=== PATIENT | male | born 1940 | race American Indian/Alaskan Native ===

== ENCOUNTER 2016-11-15 09:41 | Outpatient (CLI) | payer MEDICARE, OTHER | END 2016-11-15 09:42 | disposition home or self-care (01) | LOC: WOUND 09:41 | PROVIDERS: ATTEND Orthopaedic Surgery | DX: E11.621 Type 2 diabetes mellitus with foot ulcer (principal); L97.522 Non-pressure chronic ulcer of other part of left foot with fat layer exposed; E11.52 Type 2 diabetes mellitus with diabetic peripheral angiopathy with gangrene; E11.40 Type 2 diabetes mellitus with diabetic neuropathy, unspecified; E11.21 Type 2 diabetes mellitus with diabetic nephropathy; Z87.442 Personal history of urinary calculi; Z87.891 Personal history of nicotine dependence | CPT/HCPCS: 82962; G0277; 99183 ==

== ENCOUNTER 2016-11-16 09:35 | Outpatient (CLI) | payer MEDICARE, OTHER | END 2016-11-16 09:36 | disposition home or self-care (01) | LOC: WOUND 09:35 | PROVIDERS: ATTEND Orthopaedic Surgery | DX: E11.621 Type 2 diabetes mellitus with foot ulcer (principal); L97.521 Non-pressure chronic ulcer of other part of left foot limited to breakdown of skin; E11.40 Type 2 diabetes mellitus with diabetic neuropathy, unspecified; E11.52 Type 2 diabetes mellitus with diabetic peripheral angiopathy with gangrene; Z87.891 Personal history of nicotine dependence | CPT/HCPCS: 82962; G0277; 99183 ==

== ENCOUNTER 2016-11-20 09:03 | Outpatient (CLI) | payer MEDICARE, OTHER | END 2016-11-20 09:04 | disposition home or self-care (01) | LOC: WOUND 09:03 | PROVIDERS: ATTEND Orthopaedic Surgery | DX: E11.621 Type 2 diabetes mellitus with foot ulcer (principal); L97.522 Non-pressure chronic ulcer of other part of left foot with fat layer exposed; E11.52 Type 2 diabetes mellitus with diabetic peripheral angiopathy with gangrene; E11.40 Type 2 diabetes mellitus with diabetic neuropathy, unspecified; Z87.891 Personal history of nicotine dependence | CPT/HCPCS: G0277 ×2; 82962; 99183 ==

== ENCOUNTER 2016-11-22 09:32 | Outpatient (CLI) | payer MEDICARE, OTHER | END 2016-11-22 09:33 | disposition home or self-care (01) | LOC: WOUND 09:32 | PROVIDERS: ATTEND Orthopaedic Surgery | DX: E11.621 Type 2 diabetes mellitus with foot ulcer (principal); L97.522 Non-pressure chronic ulcer of other part of left foot with fat layer exposed; E11.52 Type 2 diabetes mellitus with diabetic peripheral angiopathy with gangrene; E11.40 Type 2 diabetes mellitus with diabetic neuropathy, unspecified; Z87.891 Personal history of nicotine dependence | CPT/HCPCS: 82962; G0277; 99183 ==

== ENCOUNTER 2016-11-23 09:43 | Outpatient (CLI) | payer MEDICARE, OTHER | END 2016-11-23 09:44 | disposition home or self-care (01) | LOC: WOUND 09:43 | PROVIDERS: ATTEND Orthopaedic Surgery | DX: E11.621 Type 2 diabetes mellitus with foot ulcer (principal); L97.522 Non-pressure chronic ulcer of other part of left foot with fat layer exposed; E11.52 Type 2 diabetes mellitus with diabetic peripheral angiopathy with gangrene; E11.40 Type 2 diabetes mellitus with diabetic neuropathy, unspecified; Z87.891 Personal history of nicotine dependence | CPT/HCPCS: 82962; G0277; 99183 ==

== ENCOUNTER 2016-11-27 09:07 | Outpatient (CLI) | payer MEDICARE, OTHER | END 2016-11-27 09:08 | disposition home or self-care (01) | LOC: WOUND 09:07 | PROVIDERS: ATTEND Orthopaedic Surgery | DX: E11.621 Type 2 diabetes mellitus with foot ulcer (principal); L97.522 Non-pressure chronic ulcer of other part of left foot with fat layer exposed; E11.52 Type 2 diabetes mellitus with diabetic peripheral angiopathy with gangrene; E11.40 Type 2 diabetes mellitus with diabetic neuropathy, unspecified; Z87.442 Personal history of urinary calculi; E11.21 Type 2 diabetes mellitus with diabetic nephropathy; Z87.891 Personal history of nicotine dependence | CPT/HCPCS: 82962; G0277; 99183 ==

== ENCOUNTER 2016-11-28 08:28 | Outpatient (CLI) | payer MEDICARE, OTHER ==
[2016-11-28] MEDS ORDERED: XYLOCAINE TOPICAL 2% TP ONE (09:03)
== END 2016-11-28 08:29 | disposition home or self-care (01) ==
LOC: WOUND 08:28
PROVIDERS: ATTEND Podiatrist
DX: E11.621 Type 2 diabetes mellitus with foot ulcer (principal); L97.522 Non-pressure chronic ulcer of other part of left foot with fat layer exposed; E11.52 Type 2 diabetes mellitus with diabetic peripheral angiopathy with gangrene; E11.40 Type 2 diabetes mellitus with diabetic neuropathy, unspecified; Z87.891 Personal history of nicotine dependence
CPT/HCPCS: 11042; G0277; 82962; 99183

== ENCOUNTER 2016-11-29 09:42 | Outpatient (CLI) | payer MEDICARE, OTHER ==
[~2016-11-29 09:42] MED LIST: XYLOCAINE TOPICAL 2% ONE
== END 2016-11-29 09:43 | disposition home or self-care (01) ==
LOC: WOUND 09:42
PROVIDERS: ATTEND Orthopaedic Surgery
DX: E11.621 Type 2 diabetes mellitus with foot ulcer (principal); L97.522 Non-pressure chronic ulcer of other part of left foot with fat layer exposed; E11.52 Type 2 diabetes mellitus with diabetic peripheral angiopathy with gangrene; E11.40 Type 2 diabetes mellitus with diabetic neuropathy, unspecified; E11.21 Type 2 diabetes mellitus with diabetic nephropathy; N20.0 Calculus of kidney; Z87.891 Personal history of nicotine dependence
CPT/HCPCS: 82962; G0277; 99183

== ENCOUNTER 2016-11-30 09:50 | Outpatient (CLI) | payer MEDICARE, OTHER | END 2016-11-30 09:51 | disposition home or self-care (01) | LOC: WOUND 09:50 | PROVIDERS: ATTEND Orthopaedic Surgery | DX: E11.621 Type 2 diabetes mellitus with foot ulcer (principal); L97.522 Non-pressure chronic ulcer of other part of left foot with fat layer exposed; E11.52 Type 2 diabetes mellitus with diabetic peripheral angiopathy with gangrene; E11.40 Type 2 diabetes mellitus with diabetic neuropathy, unspecified; Z87.891 Personal history of nicotine dependence | CPT/HCPCS: 82962; G0277; 99183 ==

== ENCOUNTER 2016-12-01 09:42 | Outpatient (CLI) | payer MEDICARE, OTHER | END 2016-12-01 09:43 | disposition home or self-care (01) | LOC: WOUND 09:42 | PROVIDERS: ATTEND Podiatrist | DX: E11.621 Type 2 diabetes mellitus with foot ulcer (principal); L97.522 Non-pressure chronic ulcer of other part of left foot with fat layer exposed; E11.52 Type 2 diabetes mellitus with diabetic peripheral angiopathy with gangrene; E11.40 Type 2 diabetes mellitus with diabetic neuropathy, unspecified; Z87.891 Personal history of nicotine dependence | CPT/HCPCS: 82962; G0277; 99183 ==

== ENCOUNTER 2016-12-04 09:32 | Outpatient (CLI) | payer MEDICARE, OTHER | END 2016-12-04 09:33 | disposition home or self-care (01) | LOC: WOUND 09:32 | PROVIDERS: ATTEND Orthopaedic Surgery | DX: E11.621 Type 2 diabetes mellitus with foot ulcer (principal); L97.522 Non-pressure chronic ulcer of other part of left foot with fat layer exposed; E11.52 Type 2 diabetes mellitus with diabetic peripheral angiopathy with gangrene; E11.40 Type 2 diabetes mellitus with diabetic neuropathy, unspecified; Z87.891 Personal history of nicotine dependence | CPT/HCPCS: 82962; G0277; 99183 ==

== ENCOUNTER 2016-12-05 08:26 | Outpatient (CLI) | payer MEDICARE, OTHER ==
[2016-12-05] MEDS ORDERED: XYLOCAINE TOPICAL 2% TP ONE ×2 (08:32→08:47)
== END 2016-12-05 08:27 | disposition home or self-care (01) ==
LOC: WOUND 08:26
PROVIDERS: ATTEND Podiatrist
DX: E11.621 Type 2 diabetes mellitus with foot ulcer (principal); L97.523 Non-pressure chronic ulcer of other part of left foot with necrosis of muscle; E11.52 Type 2 diabetes mellitus with diabetic peripheral angiopathy with gangrene; E11.40 Type 2 diabetes mellitus with diabetic neuropathy, unspecified; E11.21 Type 2 diabetes mellitus with diabetic nephropathy; Z87.891 Personal history of nicotine dependence; N20.0 Calculus of kidney
CPT/HCPCS: 11043; 82962; G0277; 99183

== ENCOUNTER 2016-12-06 09:41 | Outpatient (CLI) | payer MEDICARE, OTHER | END 2016-12-06 09:42 | disposition home or self-care (01) | LOC: WOUND 09:41 | PROVIDERS: ATTEND Orthopaedic Surgery | DX: E11.621 Type 2 diabetes mellitus with foot ulcer (principal); L97.523 Non-pressure chronic ulcer of other part of left foot with necrosis of muscle; E11.52 Type 2 diabetes mellitus with diabetic peripheral angiopathy with gangrene; E11.40 Type 2 diabetes mellitus with diabetic neuropathy, unspecified; E11.21 Type 2 diabetes mellitus with diabetic nephropathy; Z87.442 Personal history of urinary calculi; Z87.891 Personal history of nicotine dependence | CPT/HCPCS: 82962; G0277; 99183 ==

== ENCOUNTER 2016-12-07 09:34 | Outpatient (CLI) | payer MEDICARE, OTHER | END 2016-12-07 09:35 | disposition home or self-care (01) | LOC: WOUND 09:34 | PROVIDERS: ATTEND Orthopaedic Surgery | DX: E11.621 Type 2 diabetes mellitus with foot ulcer (principal); L97.523 Non-pressure chronic ulcer of other part of left foot with necrosis of muscle; E11.52 Type 2 diabetes mellitus with diabetic peripheral angiopathy with gangrene; E11.40 Type 2 diabetes mellitus with diabetic neuropathy, unspecified; Z87.891 Personal history of nicotine dependence | CPT/HCPCS: 82962; G0277; 99183 ==

== ENCOUNTER 2016-12-08 09:29 | Outpatient (CLI) | payer MEDICARE, OTHER | END 2016-12-08 09:30 | disposition home or self-care (01) | LOC: WOUND 09:29 | PROVIDERS: ATTEND Podiatrist | DX: E11.621 Type 2 diabetes mellitus with foot ulcer (principal); L97.521 Non-pressure chronic ulcer of other part of left foot limited to breakdown of skin; E11.52 Type 2 diabetes mellitus with diabetic peripheral angiopathy with gangrene; E11.40 Type 2 diabetes mellitus with diabetic neuropathy, unspecified; E08.8 Diabetes mellitus due to underlying condition with unspecified complications; Z87.891 Personal history of nicotine dependence | CPT/HCPCS: 82962; G0277; 99183 ==

== ENCOUNTER 2016-12-11 10:40 | Outpatient (CLI) | payer MEDICARE, OTHER | END 2016-12-11 10:41 | disposition home or self-care (01) | LOC: WOUND 10:40 | PROVIDERS: ATTEND Internal Medicine | DX: E11.621 Type 2 diabetes mellitus with foot ulcer (principal); L97.523 Non-pressure chronic ulcer of other part of left foot with necrosis of muscle; E11.52 Type 2 diabetes mellitus with diabetic peripheral angiopathy with gangrene; E11.40 Type 2 diabetes mellitus with diabetic neuropathy, unspecified; E11.21 Type 2 diabetes mellitus with diabetic nephropathy; N20.0 Calculus of kidney; Z87.891 Personal history of nicotine dependence | CPT/HCPCS: G0277 ×2; 82962; 99183 ==

== ENCOUNTER 2016-12-12 08:22 | Outpatient (CLI) | payer MEDICARE, OTHER ==
[2016-12-12] MEDS ORDERED: XYLOCAINE TOPICAL 2% TP ONE ×2 (08:24→15:04)
== END 2016-12-12 08:23 | disposition home or self-care (01) ==
LOC: WOUND 08:22
PROVIDERS: ATTEND Podiatrist
DX: E11.621 Type 2 diabetes mellitus with foot ulcer (principal); L97.523 Non-pressure chronic ulcer of other part of left foot with necrosis of muscle; E11.40 Type 2 diabetes mellitus with diabetic neuropathy, unspecified; E11.21 Type 2 diabetes mellitus with diabetic nephropathy; N20.0 Calculus of kidney; Z87.891 Personal history of nicotine dependence
CPT/HCPCS: 11043; 82962; G0277; 99183

== ENCOUNTER 2016-12-13 13:33 | Outpatient (CLI) | payer MEDICARE, OTHER | END 2016-12-13 13:34 | disposition home or self-care (01) | LOC: WOUND 13:33 | PROVIDERS: ATTEND Internal Medicine | DX: E11.621 Type 2 diabetes mellitus with foot ulcer (principal); L97.523 Non-pressure chronic ulcer of other part of left foot with necrosis of muscle; E11.40 Type 2 diabetes mellitus with diabetic neuropathy, unspecified; E11.52 Type 2 diabetes mellitus with diabetic peripheral angiopathy with gangrene; E11.21 Type 2 diabetes mellitus with diabetic nephropathy; N20.0 Calculus of kidney; Z87.891 Personal history of nicotine dependence | CPT/HCPCS: 82962; G0277; 99183 ==

== ENCOUNTER 2016-12-14 09:47 | Outpatient (CLI) | payer MEDICARE, OTHER | END 2016-12-14 09:48 | disposition home or self-care (01) | LOC: WOUND 09:47 | PROVIDERS: ATTEND Internal Medicine | DX: E11.621 Type 2 diabetes mellitus with foot ulcer (principal); L97.521 Non-pressure chronic ulcer of other part of left foot limited to breakdown of skin; E11.52 Type 2 diabetes mellitus with diabetic peripheral angiopathy with gangrene; E11.40 Type 2 diabetes mellitus with diabetic neuropathy, unspecified; E08.8 Diabetes mellitus due to underlying condition with unspecified complications; Z87.891 Personal history of nicotine dependence | CPT/HCPCS: 82962; G0277; 99183 ==

== ENCOUNTER 2016-12-15 09:37 | Outpatient (CLI) | payer MEDICARE, OTHER | END 2016-12-15 09:38 | disposition home or self-care (01) | LOC: WOUND 09:37 | PROVIDERS: ATTEND Podiatrist | DX: E11.621 Type 2 diabetes mellitus with foot ulcer (principal); L97.523 Non-pressure chronic ulcer of other part of left foot with necrosis of muscle; E11.52 Type 2 diabetes mellitus with diabetic peripheral angiopathy with gangrene; E11.40 Type 2 diabetes mellitus with diabetic neuropathy, unspecified; Z87.891 Personal history of nicotine dependence | CPT/HCPCS: G0277 ×2; 82962; 99183 ==

== ENCOUNTER 2016-12-18 09:41 | Outpatient (CLI) | payer MEDICARE, OTHER | END 2016-12-18 09:42 | disposition home or self-care (01) | LOC: WOUND 09:41 | PROVIDERS: ATTEND Internal Medicine | DX: E11.621 Type 2 diabetes mellitus with foot ulcer (principal); L97.523 Non-pressure chronic ulcer of other part of left foot with necrosis of muscle; E11.52 Type 2 diabetes mellitus with diabetic peripheral angiopathy with gangrene; E11.40 Type 2 diabetes mellitus with diabetic neuropathy, unspecified; N20.0 Calculus of kidney; Z87.891 Personal history of nicotine dependence | CPT/HCPCS: 82962; G0277; 99183 ==

== ENCOUNTER 2016-12-19 08:27 | Outpatient (CLI) | payer MEDICARE, OTHER ==
[2016-12-19] MEDS ORDERED: XYLOCAINE TOPICAL 2% ONE (08:30)
[2016-12-19] MEDS ORDERED: XYLOCAINE TOPICAL 2% TP ONE (08:44)
== END 2016-12-19 08:28 | disposition home or self-care (01) ==
LOC: WOUND 08:27
PROVIDERS: ATTEND Podiatrist
DX: E11.621 Type 2 diabetes mellitus with foot ulcer (principal); L97.524 Non-pressure chronic ulcer of other part of left foot with necrosis of bone; E11.40 Type 2 diabetes mellitus with diabetic neuropathy, unspecified; E11.52 Type 2 diabetes mellitus with diabetic peripheral angiopathy with gangrene; M20.42 Other hammer toe(s) (acquired), left foot; E11.21 Type 2 diabetes mellitus with diabetic nephropathy; N20.0 Calculus of kidney; Z87.891 Personal history of nicotine dependence
CPT/HCPCS: 11043; 87075; 87116; G0277; 82962; 88307; 99183

== ENCOUNTER 2016-12-20 09:37 | Outpatient (CLI) | payer MEDICARE, OTHER | END 2016-12-20 09:38 | disposition home or self-care (01) | LOC: WOUND 09:37 | PROVIDERS: ATTEND Internal Medicine | DX: E11.621 Type 2 diabetes mellitus with foot ulcer (principal); L97.523 Non-pressure chronic ulcer of other part of left foot with necrosis of muscle; E11.52 Type 2 diabetes mellitus with diabetic peripheral angiopathy with gangrene; E11.40 Type 2 diabetes mellitus with diabetic neuropathy, unspecified; Z87.891 Personal history of nicotine dependence; Z96.659 Presence of unspecified artificial knee joint | CPT/HCPCS: 82962; G0277; 99183 ==

== ENCOUNTER 2016-12-21 09:54 | Outpatient (CLI) | payer MEDICARE, OTHER | END 2016-12-21 09:55 | disposition home or self-care (01) | LOC: WOUND 09:54 | PROVIDERS: ATTEND Internal Medicine | DX: E11.621 Type 2 diabetes mellitus with foot ulcer (principal); L97.523 Non-pressure chronic ulcer of other part of left foot with necrosis of muscle; E11.52 Type 2 diabetes mellitus with diabetic peripheral angiopathy with gangrene; E11.40 Type 2 diabetes mellitus with diabetic neuropathy, unspecified; Z87.891 Personal history of nicotine dependence; Z96.659 Presence of unspecified artificial knee joint | CPT/HCPCS: 82962; G0277; 99183 ==

== ENCOUNTER 2016-12-22 09:53 | Outpatient (CLI) | payer MEDICARE, OTHER | END 2016-12-22 09:54 | disposition home or self-care (01) | LOC: WOUND 09:53 | PROVIDERS: ATTEND Podiatrist | DX: E11.621 Type 2 diabetes mellitus with foot ulcer (principal); L97.521 Non-pressure chronic ulcer of other part of left foot limited to breakdown of skin; E11.52 Type 2 diabetes mellitus with diabetic peripheral angiopathy with gangrene; E11.40 Type 2 diabetes mellitus with diabetic neuropathy, unspecified; E08.8 Diabetes mellitus due to underlying condition with unspecified complications; Z87.891 Personal history of nicotine dependence | CPT/HCPCS: G0277 ×2; 82962; 99183 ==

== ENCOUNTER 2016-12-25 09:42 | Outpatient (CLI) | payer MEDICARE, OTHER | END 2016-12-25 09:43 | disposition home or self-care (01) | LOC: WOUND 09:42 | PROVIDERS: ATTEND Internal Medicine | DX: E11.621 Type 2 diabetes mellitus with foot ulcer (principal); L97.523 Non-pressure chronic ulcer of other part of left foot with necrosis of muscle; E11.52 Type 2 diabetes mellitus with diabetic peripheral angiopathy with gangrene; E11.40 Type 2 diabetes mellitus with diabetic neuropathy, unspecified; Z87.891 Personal history of nicotine dependence | CPT/HCPCS: 82962; G0277; 99183 ==

== ENCOUNTER 2016-12-26 08:25 | Outpatient (CLI) | payer MEDICARE, OTHER ==
[2016-12-26] MEDS ORDERED: XYLOCAINE TOPICAL 4% TP ONE ×2 (08:44→15:20)
== END 2016-12-26 08:26 | disposition home or self-care (01) ==
LOC: WOUND 08:25
PROVIDERS: ATTEND Podiatrist
DX: E11.621 Type 2 diabetes mellitus with foot ulcer (principal); L97.523 Non-pressure chronic ulcer of other part of left foot with necrosis of muscle; E11.52 Type 2 diabetes mellitus with diabetic peripheral angiopathy with gangrene; E11.40 Type 2 diabetes mellitus with diabetic neuropathy, unspecified; H91.90 Unspecified hearing loss, unspecified ear; Z86.718 Personal history of other venous thrombosis and embolism; Z96.659 Presence of unspecified artificial knee joint; Z98.62 Peripheral vascular angioplasty status; Z87.891 Personal history of nicotine dependence
CPT/HCPCS: 11042; 11043; 82962; G0277; 99183

== ENCOUNTER 2016-12-27 09:45 | Outpatient (CLI) | payer MEDICARE, OTHER | END 2016-12-27 09:46 | disposition home or self-care (01) | LOC: WOUND 09:45 | PROVIDERS: ATTEND Internal Medicine | DX: E11.621 Type 2 diabetes mellitus with foot ulcer (principal); L97.523 Non-pressure chronic ulcer of other part of left foot with necrosis of muscle; E11.52 Type 2 diabetes mellitus with diabetic peripheral angiopathy with gangrene; E11.40 Type 2 diabetes mellitus with diabetic neuropathy, unspecified; Z87.891 Personal history of nicotine dependence | CPT/HCPCS: G0277 ×2; 82962; 99183 ==

== ENCOUNTER 2016-12-28 10:28 | Outpatient (CLI) | payer MEDICARE, OTHER | END 2016-12-28 10:29 | disposition home or self-care (01) | LOC: WOUND 10:28 | PROVIDERS: ATTEND Nurse Practitioner | DX: E11.621 Type 2 diabetes mellitus with foot ulcer (principal); L97.523 Non-pressure chronic ulcer of other part of left foot with necrosis of muscle; E11.52 Type 2 diabetes mellitus with diabetic peripheral angiopathy with gangrene; E11.40 Type 2 diabetes mellitus with diabetic neuropathy, unspecified; N20.0 Calculus of kidney; E11.21 Type 2 diabetes mellitus with diabetic nephropathy; Z87.891 Personal history of nicotine dependence; Z96.659 Presence of unspecified artificial knee joint | CPT/HCPCS: 82962; G0277; 99183 ==

== ENCOUNTER 2017-01-01 09:43 | Outpatient (CLI) | payer MEDICARE, OTHER | END 2017-01-01 09:44 | disposition home or self-care (01) | LOC: WOUND 09:43 | PROVIDERS: ATTEND Internal Medicine | DX: E11.621 Type 2 diabetes mellitus with foot ulcer (principal); L97.523 Non-pressure chronic ulcer of other part of left foot with necrosis of muscle; E11.52 Type 2 diabetes mellitus with diabetic peripheral angiopathy with gangrene; E11.40 Type 2 diabetes mellitus with diabetic neuropathy, unspecified; Z87.891 Personal history of nicotine dependence; Z96.659 Presence of unspecified artificial knee joint | CPT/HCPCS: G0277 ×2; 82962; 99183 ==

== ENCOUNTER 2017-01-02 08:17 | Outpatient (CLI) | payer MEDICARE, OTHER ==
[2017-01-02] MEDS ORDERED: XYLOCAINE TOPICAL 4% TP ONE ×2 (08:33→09:06)
== END 2017-01-02 08:18 | disposition home or self-care (01) ==
LOC: WOUND 08:17
PROVIDERS: ATTEND Podiatrist
DX: E11.621 Type 2 diabetes mellitus with foot ulcer (principal); L97.523 Non-pressure chronic ulcer of other part of left foot with necrosis of muscle; E11.52 Type 2 diabetes mellitus with diabetic peripheral angiopathy with gangrene; E11.40 Type 2 diabetes mellitus with diabetic neuropathy, unspecified; E11.69 Type 2 diabetes mellitus with other specified complication; M86.8X7 Other osteomyelitis, ankle and foot; H91.90 Unspecified hearing loss, unspecified ear; Z86.718 Personal history of other venous thrombosis and embolism; Z96.659 Presence of unspecified artificial knee joint; Z87.891 Personal history of nicotine dependence
CPT/HCPCS: 11043; 82962; G0277; 99183

== ENCOUNTER 2017-01-03 09:39 | Outpatient (CLI) | payer MEDICARE, OTHER | END 2017-01-03 09:40 | disposition home or self-care (01) | LOC: WOUND 09:39 | PROVIDERS: ATTEND Internal Medicine | DX: E11.621 Type 2 diabetes mellitus with foot ulcer (principal); L97.523 Non-pressure chronic ulcer of other part of left foot with necrosis of muscle; E11.52 Type 2 diabetes mellitus with diabetic peripheral angiopathy with gangrene; E11.40 Type 2 diabetes mellitus with diabetic neuropathy, unspecified; E11.69 Type 2 diabetes mellitus with other specified complication; M86.8X7 Other osteomyelitis, ankle and foot; Z87.891 Personal history of nicotine dependence | CPT/HCPCS: 82962; G0277; 99183 ==

== ENCOUNTER 2017-01-04 09:00 | Outpatient (CLI) | payer MEDICARE, OTHER | END 2017-01-04 09:01 | disposition home or self-care (01) | LOC: WOUND 09:00 | PROVIDERS: ATTEND Nurse Practitioner | DX: E11.621 Type 2 diabetes mellitus with foot ulcer (principal); L97.523 Non-pressure chronic ulcer of other part of left foot with necrosis of muscle; E11.52 Type 2 diabetes mellitus with diabetic peripheral angiopathy with gangrene; E11.40 Type 2 diabetes mellitus with diabetic neuropathy, unspecified; E11.21 Type 2 diabetes mellitus with diabetic nephropathy; Z87.891 Personal history of nicotine dependence; Z87.442 Personal history of urinary calculi; Z96.659 Presence of unspecified artificial knee joint | CPT/HCPCS: 82962; G0277; 99183 ==

== ENCOUNTER 2017-01-05 10:00 | Outpatient (CLI) | payer MEDICARE, OTHER | END 2017-01-05 10:01 | disposition home or self-care (01) | LOC: WOUND 10:00 | PROVIDERS: ATTEND Podiatrist | DX: E11.621 Type 2 diabetes mellitus with foot ulcer (principal); L97.523 Non-pressure chronic ulcer of other part of left foot with necrosis of muscle; E11.69 Type 2 diabetes mellitus with other specified complication; M86.8X7 Other osteomyelitis, ankle and foot; E11.40 Type 2 diabetes mellitus with diabetic neuropathy, unspecified; E11.52 Type 2 diabetes mellitus with diabetic peripheral angiopathy with gangrene; E11.21 Type 2 diabetes mellitus with diabetic nephropathy; Z87.442 Personal history of urinary calculi; Z87.891 Personal history of nicotine dependence; Z96.659 Presence of unspecified artificial knee joint | CPT/HCPCS: 82962; G0277; 99183 ==

== ENCOUNTER 2017-01-08 09:38 | Outpatient (CLI) | payer MEDICARE, OTHER | END 2017-01-08 09:39 | disposition home or self-care (01) | LOC: WOUND 09:38 | PROVIDERS: ATTEND Internal Medicine | DX: E11.621 Type 2 diabetes mellitus with foot ulcer (principal); L97.523 Non-pressure chronic ulcer of other part of left foot with necrosis of muscle; E11.52 Type 2 diabetes mellitus with diabetic peripheral angiopathy with gangrene; E11.40 Type 2 diabetes mellitus with diabetic neuropathy, unspecified; E11.69 Type 2 diabetes mellitus with other specified complication; M86.8X7 Other osteomyelitis, ankle and foot; E11.21 Type 2 diabetes mellitus with diabetic nephropathy; Z87.891 Personal history of nicotine dependence; Z96.659 Presence of unspecified artificial knee joint | CPT/HCPCS: 82962; G0277; 99183 ==

== ENCOUNTER 2017-01-09 08:30 | Outpatient (CLI) | payer MEDICARE, OTHER ==
[2017-01-09] MEDS ORDERED: XYLOCAINE TOPICAL 4% TP ONE ×2 (08:56→16:13)
== END 2017-01-09 08:31 | disposition home or self-care (01) ==
LOC: WOUND 08:30
PROVIDERS: ATTEND Podiatrist
DX: E11.621 Type 2 diabetes mellitus with foot ulcer (principal); L97.523 Non-pressure chronic ulcer of other part of left foot with necrosis of muscle; E11.52 Type 2 diabetes mellitus with diabetic peripheral angiopathy with gangrene; E11.40 Type 2 diabetes mellitus with diabetic neuropathy, unspecified; E11.69 Type 2 diabetes mellitus with other specified complication; M86.8X7 Other osteomyelitis, ankle and foot; E11.21 Type 2 diabetes mellitus with diabetic nephropathy; Z96.659 Presence of unspecified artificial knee joint; Z86.718 Personal history of other venous thrombosis and embolism; Z87.891 Personal history of nicotine dependence
CPT/HCPCS: 11043; 82962; G0277; 99183

== ENCOUNTER 2017-01-11 08:29 | Outpatient (CLI) | payer MEDICARE, OTHER | END 2017-01-11 08:30 | disposition home or self-care (01) | LOC: WOUND 08:29 | PROVIDERS: ATTEND Internal Medicine | DX: E11.621 Type 2 diabetes mellitus with foot ulcer (principal); L97.521 Non-pressure chronic ulcer of other part of left foot limited to breakdown of skin; E11.52 Type 2 diabetes mellitus with diabetic peripheral angiopathy with gangrene; E11.40 Type 2 diabetes mellitus with diabetic neuropathy, unspecified; Z87.891 Personal history of nicotine dependence | CPT/HCPCS: 82962; G0277; 99183 ==

== ENCOUNTER 2017-01-16 08:27 | Outpatient (CLI) | payer MEDICARE, OTHER ==
[2017-01-16] MEDS ORDERED: XYLOCAINE TOPICAL 4% TP ONE (09:19)
[2017-01-16] MEDS ORDERED: XYLOCAINE TOPICAL 2% TP ONE (14:51)
== END 2017-01-16 08:28 | disposition home or self-care (01) ==
LOC: WOUND 08:27
PROVIDERS: ATTEND Podiatrist
DX: E11.621 Type 2 diabetes mellitus with foot ulcer (principal); L97.523 Non-pressure chronic ulcer of other part of left foot with necrosis of muscle; E11.52 Type 2 diabetes mellitus with diabetic peripheral angiopathy with gangrene; E11.40 Type 2 diabetes mellitus with diabetic neuropathy, unspecified; E11.69 Type 2 diabetes mellitus with other specified complication; M86.8X7 Other osteomyelitis, ankle and foot; H91.90 Unspecified hearing loss, unspecified ear; E11.21 Type 2 diabetes mellitus with diabetic nephropathy; Z86.718 Personal history of other venous thrombosis and embolism; Z96.659 Presence of unspecified artificial knee joint; Z87.891 Personal history of nicotine dependence

== ENCOUNTER 2017-01-23 08:30 | Outpatient (CLI) | payer MEDICARE, OTHER ==
[2017-01-23] MEDS ORDERED: XYLOCAINE TOPICAL 4% TP ONE ×2 (08:48→08:57)
== END 2017-01-23 08:31 | disposition home or self-care (01) ==
LOC: WOUND 08:30
PROVIDERS: ATTEND Podiatrist
DX: E11.621 Type 2 diabetes mellitus with foot ulcer (principal); L97.523 Non-pressure chronic ulcer of other part of left foot with necrosis of muscle; E11.52 Type 2 diabetes mellitus with diabetic peripheral angiopathy with gangrene; E11.40 Type 2 diabetes mellitus with diabetic neuropathy, unspecified; E11.69 Type 2 diabetes mellitus with other specified complication; M86.8X7 Other osteomyelitis, ankle and foot; E11.21 Type 2 diabetes mellitus with diabetic nephropathy; H91.90 Unspecified hearing loss, unspecified ear; I82.492 Acute embolism and thrombosis of other specified deep vein of left lower extremity; Z96.659 Presence of unspecified artificial knee joint; Z87.891 Personal history of nicotine dependence

== ENCOUNTER 2017-01-24 09:33 | Outpatient (CLI) | payer MEDICARE, OTHER | END 2017-01-24 09:34 | disposition home or self-care (01) | LOC: WOUND 09:33 | PROVIDERS: ATTEND Internal Medicine | DX: E11.621 Type 2 diabetes mellitus with foot ulcer (principal); L97.523 Non-pressure chronic ulcer of other part of left foot with necrosis of muscle; E11.52 Type 2 diabetes mellitus with diabetic peripheral angiopathy with gangrene; E11.40 Type 2 diabetes mellitus with diabetic neuropathy, unspecified; E11.69 Type 2 diabetes mellitus with other specified complication; M86.8X7 Other osteomyelitis, ankle and foot; E11.21 Type 2 diabetes mellitus with diabetic nephropathy; H91.90 Unspecified hearing loss, unspecified ear; I25.10 Atherosclerotic heart disease of native coronary artery without angina pectoris; Z96.659 Presence of unspecified artificial knee joint; Z86.718 Personal history of other venous thrombosis and embolism; Z98.62 Peripheral vascular angioplasty status; Z87.891 Personal history of nicotine dependence | CPT/HCPCS: 82962; 99212; G0463 ==

== ENCOUNTER 2017-01-30 08:22 | Outpatient (CLI) | payer MEDICARE, OTHER ==
[2017-01-30] MEDS ORDERED: XYLOCAINE TOPICAL 4% TP ONE ×2 (08:43→11:29)
== END 2017-01-30 08:23 | disposition home or self-care (01) ==
LOC: WOUND 08:22
PROVIDERS: ATTEND Internal Medicine
DX: E11.621 Type 2 diabetes mellitus with foot ulcer (principal); L97.523 Non-pressure chronic ulcer of other part of left foot with necrosis of muscle; E11.52 Type 2 diabetes mellitus with diabetic peripheral angiopathy with gangrene; E11.40 Type 2 diabetes mellitus with diabetic neuropathy, unspecified; E11.69 Type 2 diabetes mellitus with other specified complication; M86.8X7 Other osteomyelitis, ankle and foot; E11.21 Type 2 diabetes mellitus with diabetic nephropathy; I25.10 Atherosclerotic heart disease of native coronary artery without angina pectoris; H91.90 Unspecified hearing loss, unspecified ear; Z86.718 Personal history of other venous thrombosis and embolism; Z87.891 Personal history of nicotine dependence; Z96.659 Presence of unspecified artificial knee joint
CPT/HCPCS: 82962

== ENCOUNTER 2017-02-02 10:59 | Day surgery (SDC) | payer MEDICARE, OTHER ==
[2017-01-25 09:58] LABS: Basophils % (Auto) 0.5 % (0.0-1.8); Eosinophils % (Auto) 2.9 % (0.0-4.3); Hemoglobin 14.8 gm/dl (11.8-15.2); Mean Corpuscular HGB Conc 34 % (32-34); Mean Corpuscular Hemoglobin 30 pg (28-32); Mean Corpuscular Volume 90 fl (84-94); Platelet Count 164 K/mm3 (140-440); Red Blood Count 4.88 M/mm3 (3.65-5.03); Red Cell Distribution Width 13.5 % (13.2-15.2); White Blood Count 4.9 K/mm3 (4.5-11.0)
--- NOTE | 2017-01-25 10:02 | Anesthesia Consultation ---
Anesthesia Consult and Med Hx Date of service: 01/25/17 - Airway Anesthetic Teeth Evaluation: Dentures (upper), Partials (lower) ROM Head & Neck: Adequate Mental/Hyoid Distance: Adequate Mallampati Class: Class II Intubation Access Assessment: Probably Good - Pre-Operative Health Status ASA Pre-Surgery Classification: ASA3 Proposed Anesthetic Plan: General - Pulmonary Hx Smoking: Yes (STOPPED 1984 , 1/2 PPD X 25 YRS) Hx Sleep Apnea: No (LOREN PRE SCREEN HIGH RISK) - Cardiovascular System Hx Hypertension: Yes Hx Coronary Artery Disease: Yes (CABG 2005 x 3) Hx Angina: Yes (RARE,NITRO USES 3 YRS AGO) Hx Percutaneous Transluminal Coronary Angioplasty (PTCA): Yes (stents 2002) Hx Cardia Arrhythmia: No Hx Peripheral Vascular Disease: Yes (arterial and DVT (2016),PAD) - Central Nervous System Hx Neuromuscular Disorder: Yes (bilateral LE neuropathy) Hx Psychiatric Problems: No - Endocrine Hx Insulin Dependent Diabetes: Yes (on Lantus) Hx Non-Insulin Dependent Diabetes: Yes - Other Systems Hx Alcohol Use: Yes Hx Substance Use: No Hx Cancer: No
[2017-01-25 10:11] LABS: Alanine Aminotransferase 22 units/L (7-56); Albumin 4.4 g/dL (3.9-5); Albumin/Globulin Ratio 1.2 %; Alkaline Phosphatase 70 units/L (35-129); Anion Gap 16 mmol/L; BUN/Creatinine Ratio 21.53; Bilirubin,Total 0.4 mg/dL (0.1-1.2); Blood Urea Nitrogen 28 mg/dL (9-20); Calcium 9.9 mg/dL (8.4-10.2); Carbon Dioxide 29 mmol/L (22-30); Glucose 200 mg/dL (75-100); Potassium 4.7 mmol/L (3.6-5.0); Sodium 140 mmol/L (137-145)
[~2017-02-02 10:59] MED LIST changes: +NACL 0.9% 1000 ML 1,000 ML IV SCH; +PEPCID IV NR; +VERSED IV NR; -XYLOCAINE TOPICAL 2% ONE
[2017-02-02] MEDS ORDERED: NACL BACTERIOSTATIC INFILTRATI ONE (11:17)
--- NOTE | 2017-02-02 12:13 | Anesthesia Day of Surgery ---
Anesthesia Day of Surgery - Day of Surgery Patient Examined: Yes Patient H&P Reviewed: Yes Patient is NPO: Yes Beta Blockers: Yes
[2017-02-02] MEDS ORDERED: DILAUDID ONE (12:24)
[2017-02-02] MEDS ORDERED: DIPRIVAN 10 MG/ML IV ONE ×4 (12:24→13:35)
[2017-02-02] MEDS ORDERED: ANCEF ONE ×2 (12:53)
[2017-02-02] MEDS ORDERED: TOPROL XL PO ONE (13:00)
[2017-02-02] MEDS ORDERED: ZOFRAN ONE (13:06)
[2017-02-02] MEDS ORDERED: XYLOCAINE MPF 2% ONE (13:06)
[2017-02-02] MEDS ORDERED: NACL 0.9% 100 ML ONE (13:07)
[2017-02-02] MEDS ORDERED: NEO SYNEPHRINE ONE (13:15)
[2017-02-02] MEDS ORDERED: NACL 0.9% 1000 ML 1,000 ML ONE (13:19)
[2017-02-02] MEDS ORDERED: ROBINUL ONE (13:27)
[2017-02-02] MEDS ORDERED: NACL 0.9% IR ONE (13:30)
[2017-02-02] MEDS ORDERED: MARCAINE 0.5% INFILTRATI ONE (13:30)
[2017-02-02] MEDS ORDERED: NEOSPORIN GU IR ONE (13:30)
--- NOTE | 2017-02-02 14:25 | Procedure Note ---
Date of procedure: 02/02/17 Pre-op diagnosis: OM and non healing ulcers of left 2nd and 3rd dgiits Procedure: partial toe amputation of left 2nd and 3rd dgiits Surgeon: AKASH NELSON Estimated blood loss: minimal IV fluids: 1,300 Urine output: 0 Pathology: list (bone and soft tissue of left 2nd and 3rd digits) Specimen disposition: to lab Condition: stable Disposition: same day
[2017-02-02] MEDS ORDERED: TYLENOL PO PRN (14:37)
--- NOTE | 2017-02-02 14:46 | Discharge Summary ---
Providers - Providers Attending physician: AKASH NELSON Primary care physician: LITZY HUIZAR Hospitalization Condition: Good Disposition: DISCHARGED TO HOME OR SELFCARE Core Measure Documentation - Palliative Care Palliative Care/ Comfort Measures: Not Applicable (does not apply, patient is given pain meds to control his post op pain) - Core Measures Any of the following diagnoses?: none Exam - Constitutional Vitals: Temp Pulse Resp BP Pulse Ox 97.6 F 71 14 115/59 98 02/02/17 12:02 02/02/17 12:35 02/02/17 12:02 02/02/17 12:35 02/02/17 12:02 Plan Weight Bearing Status: Weight Bear as Tolerated Diet: regular Wound: keep clean and dry Follow up with: AKASH NELSON DPM [Staff Physician] - 7 Days LITZY HUIZAR MD [Primary Care Provider] - 7 Days Forms: Outpatient Surgery DC Inst. Prescriptions: Acetaminophen [Acetaminophen TAB] 650 mg PO Q4H PRN #30 tablet PRN Reason: Pain, Moderate (4-6)
[2017-02-02 16:14] VITALS: BP 108/54
--- NOTE | 2017-02-02 16:47 | XRay Report ---
Portable left foot: Postoperative AP and lateral views of the foot demonstrate amputations through the mid proximal phalangeal shafts. There are associated soft tissue changes. Also noted are calcifications of some of the individual vessels as well as calcification at the attachment of the plantar tendons on the calcaneus. The latter findings were present on prior study of November 07, 2016. Impressions: Postoperative amputations with otherwise stable findings.
--- NOTE | 2017-02-07 12:14 | Operative Report ---
SURGEON: Cristy Smiley DPM. PREOPERATIVE DIAGNOSES: Osteomyelitis and nonhealing wound of left second and third digits. POSTOPERATIVE DIAGNOSES: Osteomyelitis and nonhealing wound of left second and third digits. PROCEDURE PERFORMED: Partial toe amputation of the left second and third digits. ANESTHESIA: MAC with local, 10 mL of Marcaine plain. ANESTHESIOLOGIST: Dr. Ford. ESTIMATED BLOOD LOSS: Less than 25 mL. DESCRIPTION OF PROCEDURE: The patient was brought to the operating room and placed on the operating table in the supine position. After IV sedation was provided, 10 mL of 0.5% Marcaine plain was injected into the left second and third digits to get a local anesthesia with a V block. The left lower extremity was prepped and draped in the usual sterile manner. Attention was then directed to the patient's left second digit where an incision was made around the proximal phalanx dorsally-transverse incision, which was then extended to the plantar flap. The incision was made through the skin utilizing a #15 blade down to bone. The soft tissue was freed from the bone with a freer elevator. A double action bone cutter was then used to cut the bone at the proximal aspect of the proximal phalanx of the bone. The bone and the rest of the distal part of the toe was dissected and excised in total, any leftover tendons were identified and resected from the area. The wound was then flushed with copious amounts of saline. Skin was reapproximated and sutured back together utilizing 3-0 nylon. Attention was then directed to the left third digit, where an incision was made in the dorsal aspect of the toe, transverse incision, the incision was extended plantarly, curved incision to include. Utilizing #15 blade The dissection was then carried down from the skin down to the bone. Periosteal elevator was used to free the soft tissue from the bone. Utilizing a double action bone cutter, the bone was then cut at the proximal phalanx and the distal part of the toe was excised and removed. Any residual tendons were identified and resected. The wound was flushed with copious amount of saline. Skin was reapproximated and sutured back in place with 3-0 nylon. There was noted to be adequate bleeding in both second and third toes. Toes had good coloration to them. The toes were then dressed with Xeroform, 4 x 4 gauze, Kerlix and Almas bandage. The patient tolerated the procedure well. He was then transferred to the recovery room stable. JOB# [id number] ELIZABETH/SIENNA YOUNG
== END 2017-02-02 16:00 | disposition home or self-care (01) ==
LOC: OR 10:59
PROVIDERS: ATTEND Podiatrist
DX: E11.621 Type 2 diabetes mellitus with foot ulcer (principal); L97.523 Non-pressure chronic ulcer of other part of left foot with necrosis of muscle; E11.69 Type 2 diabetes mellitus with other specified complication; M86.9 Osteomyelitis, unspecified; E11.52 Type 2 diabetes mellitus with diabetic peripheral angiopathy with gangrene; I25.10 Atherosclerotic heart disease of native coronary artery without angina pectoris; E11.40 Type 2 diabetes mellitus with diabetic neuropathy, unspecified; Z95.1 Presence of aortocoronary bypass graft; Z95.5 Presence of coronary angioplasty implant and graft; Z86.718 Personal history of other venous thrombosis and embolism; Z72.89 Other problems related to lifestyle; Z87.891 Personal history of nicotine dependence; Z79.4 Long term (current) use of insulin
CPT/HCPCS: 28825; 36415; 73630; 80053; 82962; 85025; 88305; 88311; J0690; J2370; J2405; J2704; J7030; 88302; J1170; J1815; J2250

== ENCOUNTER 2017-02-05 09:38 | Outpatient (CLI) | payer MEDICARE, OTHER | END 2017-02-05 09:39 | disposition home or self-care (01) | LOC: WOUND 09:38 | PROVIDERS: ATTEND Internal Medicine | DX: E11.621 Type 2 diabetes mellitus with foot ulcer (principal); L97.523 Non-pressure chronic ulcer of other part of left foot with necrosis of muscle; E11.52 Type 2 diabetes mellitus with diabetic peripheral angiopathy with gangrene; E11.40 Type 2 diabetes mellitus with diabetic neuropathy, unspecified; E11.69 Type 2 diabetes mellitus with other specified complication; M86.8X7 Other osteomyelitis, ankle and foot; E11.21 Type 2 diabetes mellitus with diabetic nephropathy; I25.10 Atherosclerotic heart disease of native coronary artery without angina pectoris; Z87.891 Personal history of nicotine dependence; Z96.659 Presence of unspecified artificial knee joint | CPT/HCPCS: 82962; G0277; 99183 ==

== ENCOUNTER 2017-02-06 08:26 | Outpatient (CLI) | payer MEDICARE, OTHER ==
[2017-02-06] MEDS ORDERED: XYLOCAINE TOPICAL 4% TP ONE ×2 (08:45→14:41)
== END 2017-02-06 08:27 | disposition home or self-care (01) ==
LOC: WOUND 08:26
PROVIDERS: ATTEND Podiatrist
DX: E11.621 Type 2 diabetes mellitus with foot ulcer (principal); L97.523 Non-pressure chronic ulcer of other part of left foot with necrosis of muscle; E11.52 Type 2 diabetes mellitus with diabetic peripheral angiopathy with gangrene; E11.40 Type 2 diabetes mellitus with diabetic neuropathy, unspecified; E11.69 Type 2 diabetes mellitus with other specified complication; M86.8X7 Other osteomyelitis, ankle and foot; H91.90 Unspecified hearing loss, unspecified ear; E11.21 Type 2 diabetes mellitus with diabetic nephropathy; I25.10 Atherosclerotic heart disease of native coronary artery without angina pectoris; Z96.659 Presence of unspecified artificial knee joint; Z86.718 Personal history of other venous thrombosis and embolism; Z87.891 Personal history of nicotine dependence
CPT/HCPCS: 82962; G0277; 99183; 99215; G0463

== ENCOUNTER 2017-02-07 09:57 | Outpatient (CLI) | payer MEDICARE, OTHER | END 2017-02-07 09:58 | disposition home or self-care (01) | LOC: WOUND 09:57 | PROVIDERS: ATTEND Podiatrist | DX: E11.621 Type 2 diabetes mellitus with foot ulcer (principal); L97.523 Non-pressure chronic ulcer of other part of left foot with necrosis of muscle; E11.52 Type 2 diabetes mellitus with diabetic peripheral angiopathy with gangrene; E11.40 Type 2 diabetes mellitus with diabetic neuropathy, unspecified; E11.69 Type 2 diabetes mellitus with other specified complication; M86.8X7 Other osteomyelitis, ankle and foot; E11.21 Type 2 diabetes mellitus with diabetic nephropathy; I25.10 Atherosclerotic heart disease of native coronary artery without angina pectoris; Z87.891 Personal history of nicotine dependence; Z96.659 Presence of unspecified artificial knee joint | CPT/HCPCS: G0277 ×2; 82962; 99183 ==

== ENCOUNTER 2017-02-08 09:37 | Outpatient (CLI) | payer MEDICARE, OTHER | END 2017-02-08 09:38 | disposition home or self-care (01) | LOC: WOUND 09:37 | PROVIDERS: ATTEND Internal Medicine | DX: E11.621 Type 2 diabetes mellitus with foot ulcer (principal); L97.521 Non-pressure chronic ulcer of other part of left foot limited to breakdown of skin; E11.40 Type 2 diabetes mellitus with diabetic neuropathy, unspecified; E11.69 Type 2 diabetes mellitus with other specified complication; M86.8X7 Other osteomyelitis, ankle and foot; I25.10 Atherosclerotic heart disease of native coronary artery without angina pectoris; Z47.81 Encounter for orthopedic aftercare following surgical amputation; Z89.422 Acquired absence of other left toe(s); Z87.891 Personal history of nicotine dependence | CPT/HCPCS: 82962; G0277; 99183 ==

== ENCOUNTER 2017-02-09 08:43 | Outpatient (CLI) | payer MEDICARE, OTHER | END 2017-02-09 08:44 | disposition home or self-care (01) | LOC: WOUND 08:43 | PROVIDERS: ATTEND Podiatrist | DX: T87.89 Other complications of amputation stump (principal); E11.621 Type 2 diabetes mellitus with foot ulcer; L97.521 Non-pressure chronic ulcer of other part of left foot limited to breakdown of skin; E11.40 Type 2 diabetes mellitus with diabetic neuropathy, unspecified; I25.10 Atherosclerotic heart disease of native coronary artery without angina pectoris; H91.90 Unspecified hearing loss, unspecified ear; Z96.659 Presence of unspecified artificial knee joint; Z87.891 Personal history of nicotine dependence; Z86.718 Personal history of other venous thrombosis and embolism; Y83.5 Amputation of limb(s) as the cause of abnormal reaction of the patient, or of later complication, without mention of misadventure at the time of the procedure | CPT/HCPCS: 82962; G0277; 99183; 99214; G0463 ==

== ENCOUNTER 2017-02-13 08:36 | Outpatient (CLI) | payer MEDICARE, OTHER ==
[2017-02-13] MEDS ORDERED: XYLOCAINE TOPICAL 2% TP ONE ×2 (08:42→09:07)
[2017-02-13] MEDS ORDERED: XYLOCAINE TOPICAL 4% TP ONE (09:03)
[2017-02-13] MEDS ORDERED: ANTIBIOTIC OINT TP ONE (09:14)
[2017-02-13] MEDS ORDERED: ANTIBIOTIC OINT TP SCH (22:00)
== END 2017-02-13 08:37 | disposition home or self-care (01) ==
LOC: WOUND 08:36
PROVIDERS: ATTEND Internal Medicine
DX: T81.89XD Other complications of procedures, not elsewhere classified, subsequent encounter (principal); E11.621 Type 2 diabetes mellitus with foot ulcer; L97.521 Non-pressure chronic ulcer of other part of left foot limited to breakdown of skin; I25.10 Atherosclerotic heart disease of native coronary artery without angina pectoris; E11.40 Type 2 diabetes mellitus with diabetic neuropathy, unspecified; H91.90 Unspecified hearing loss, unspecified ear; Z89.422 Acquired absence of other left toe(s); Z96.659 Presence of unspecified artificial knee joint; Z98.62 Peripheral vascular angioplasty status; Z87.891 Personal history of nicotine dependence; Z86.718 Personal history of other venous thrombosis and embolism; Y83.8 Other surgical procedures as the cause of abnormal reaction of the patient, or of later complication, without mention of misadventure at the time of the procedure
CPT/HCPCS: 82962; G0277; G0463; 99183; 99215

== ENCOUNTER 2017-02-15 09:50 | Outpatient (CLI) | payer MEDICARE, OTHER | END 2017-02-15 09:51 | disposition home or self-care (01) | LOC: WOUND 09:50 | PROVIDERS: ATTEND Internal Medicine | DX: T81.89XD Other complications of procedures, not elsewhere classified, subsequent encounter (principal); E11.621 Type 2 diabetes mellitus with foot ulcer; L97.521 Non-pressure chronic ulcer of other part of left foot limited to breakdown of skin; E11.40 Type 2 diabetes mellitus with diabetic neuropathy, unspecified; H91.90 Unspecified hearing loss, unspecified ear; I25.10 Atherosclerotic heart disease of native coronary artery without angina pectoris; Z86.718 Personal history of other venous thrombosis and embolism; Z89.422 Acquired absence of other left toe(s); Z98.62 Peripheral vascular angioplasty status; Z87.891 Personal history of nicotine dependence; Z96.659 Presence of unspecified artificial knee joint; Y83.8 Other surgical procedures as the cause of abnormal reaction of the patient, or of later complication, without mention of misadventure at the time of the procedure | CPT/HCPCS: 82962; G0277; 99183 ==

== ENCOUNTER 2017-02-16 08:24 | Outpatient (CLI) | payer MEDICARE, OTHER | END 2017-02-16 08:25 | disposition home or self-care (01) | LOC: WOUND 08:24 | PROVIDERS: ATTEND Podiatrist | DX: T81.89XD Other complications of procedures, not elsewhere classified, subsequent encounter (principal); E11.621 Type 2 diabetes mellitus with foot ulcer; L97.521 Non-pressure chronic ulcer of other part of left foot limited to breakdown of skin; E11.40 Type 2 diabetes mellitus with diabetic neuropathy, unspecified; H91.90 Unspecified hearing loss, unspecified ear; I25.10 Atherosclerotic heart disease of native coronary artery without angina pectoris; Z86.718 Personal history of other venous thrombosis and embolism; Z96.659 Presence of unspecified artificial knee joint; Z89.422 Acquired absence of other left toe(s); Z87.891 Personal history of nicotine dependence; Y83.8 Other surgical procedures as the cause of abnormal reaction of the patient, or of later complication, without mention of misadventure at the time of the procedure | CPT/HCPCS: 82962; G0463; 99215 ==

== ENCOUNTER 2017-02-19 09:52 | Outpatient (CLI) | payer MEDICARE, OTHER | END 2017-02-19 09:53 | disposition home or self-care (01) | LOC: WOUND 09:52 | PROVIDERS: ATTEND Internal Medicine | DX: E11.621 Type 2 diabetes mellitus with foot ulcer (principal); L97.522 Non-pressure chronic ulcer of other part of left foot with fat layer exposed; E11.40 Type 2 diabetes mellitus with diabetic neuropathy, unspecified; E11.52 Type 2 diabetes mellitus with diabetic peripheral angiopathy with gangrene; I25.10 Atherosclerotic heart disease of native coronary artery without angina pectoris; Z89.422 Acquired absence of other left toe(s); Z87.891 Personal history of nicotine dependence; Z96.659 Presence of unspecified artificial knee joint; Z98.62 Peripheral vascular angioplasty status | CPT/HCPCS: 82962; G0277; 99183 ==

== ENCOUNTER 2017-02-20 08:25 | Outpatient (CLI) | payer MEDICARE, OTHER | END 2017-02-20 08:26 | disposition home or self-care (01) | LOC: WOUND 08:25 | PROVIDERS: ATTEND Podiatrist | DX: E11.621 Type 2 diabetes mellitus with foot ulcer (principal); L97.522 Non-pressure chronic ulcer of other part of left foot with fat layer exposed; E11.40 Type 2 diabetes mellitus with diabetic neuropathy, unspecified; H91.90 Unspecified hearing loss, unspecified ear; I25.10 Atherosclerotic heart disease of native coronary artery without angina pectoris; Z89.422 Acquired absence of other left toe(s); Z86.718 Personal history of other venous thrombosis and embolism; Z96.659 Presence of unspecified artificial knee joint; Z98.62 Peripheral vascular angioplasty status; Z87.891 Personal history of nicotine dependence | CPT/HCPCS: 82962; G0277; G0463; 99183; 99214 ==

== ENCOUNTER 2017-02-21 09:43 | Outpatient (CLI) | payer MEDICARE, OTHER | END 2017-02-21 09:44 | disposition home or self-care (01) | LOC: WOUND 09:43 | PROVIDERS: ATTEND Internal Medicine | DX: E11.621 Type 2 diabetes mellitus with foot ulcer (principal); L97.522 Non-pressure chronic ulcer of other part of left foot with fat layer exposed; E11.40 Type 2 diabetes mellitus with diabetic neuropathy, unspecified; E11.69 Type 2 diabetes mellitus with other specified complication; M86.8X7 Other osteomyelitis, ankle and foot; E11.21 Type 2 diabetes mellitus with diabetic nephropathy; I25.10 Atherosclerotic heart disease of native coronary artery without angina pectoris; Z87.442 Personal history of urinary calculi; Z87.891 Personal history of nicotine dependence; Z98.62 Peripheral vascular angioplasty status; Z96.659 Presence of unspecified artificial knee joint; Z89.422 Acquired absence of other left toe(s) | CPT/HCPCS: 82962; G0277; 99183 ==

== ENCOUNTER 2017-02-22 09:37 | Outpatient (CLI) | payer MEDICARE, OTHER | END 2017-02-22 09:38 | disposition home or self-care (01) | LOC: WOUND 09:37 | PROVIDERS: ATTEND Internal Medicine | DX: E11.621 Type 2 diabetes mellitus with foot ulcer (principal); L97.521 Non-pressure chronic ulcer of other part of left foot limited to breakdown of skin; E11.40 Type 2 diabetes mellitus with diabetic neuropathy, unspecified; E08.8 Diabetes mellitus due to underlying condition with unspecified complications; I25.10 Atherosclerotic heart disease of native coronary artery without angina pectoris; Z87.891 Personal history of nicotine dependence; Z47.81 Encounter for orthopedic aftercare following surgical amputation; Z89.422 Acquired absence of other left toe(s) | CPT/HCPCS: 82962; G0277; 99183 ==

== ENCOUNTER 2017-02-23 08:27 | Outpatient (CLI) | payer MEDICARE, OTHER ==
[2017-02-23] MEDS ORDERED: SODIUM CHLORIDE FLUSH SYRINGE 10 ML IV ONE (13:28)
== END 2017-02-23 08:28 | disposition home or self-care (01) ==
LOC: WOUND 08:27
PROVIDERS: ATTEND Podiatrist
DX: E11.621 Type 2 diabetes mellitus with foot ulcer (principal); L97.522 Non-pressure chronic ulcer of other part of left foot with fat layer exposed; E11.40 Type 2 diabetes mellitus with diabetic neuropathy, unspecified; B35.1 Tinea unguium; I25.10 Atherosclerotic heart disease of native coronary artery without angina pectoris; H91.90 Unspecified hearing loss, unspecified ear; Z86.718 Personal history of other venous thrombosis and embolism; Z96.659 Presence of unspecified artificial knee joint; Z98.62 Peripheral vascular angioplasty status; Z89.422 Acquired absence of other left toe(s); Z87.891 Personal history of nicotine dependence; Y83.5 Amputation of limb(s) as the cause of abnormal reaction of the patient, or of later complication, without mention of misadventure at the time of the procedure
CPT/HCPCS: 11721; 82962; G0277; 99183

== ENCOUNTER 2017-02-26 09:35 | Outpatient (CLI) | payer MEDICARE, OTHER | END 2017-02-26 09:36 | disposition home or self-care (01) | LOC: WOUND 09:35 | PROVIDERS: ATTEND Internal Medicine | DX: E11.621 Type 2 diabetes mellitus with foot ulcer (principal); L97.522 Non-pressure chronic ulcer of other part of left foot with fat layer exposed; B35.1 Tinea unguium; E11.21 Type 2 diabetes mellitus with diabetic nephropathy; E11.69 Type 2 diabetes mellitus with other specified complication; M86.8X7 Other osteomyelitis, ankle and foot; E11.40 Type 2 diabetes mellitus with diabetic neuropathy, unspecified; N20.0 Calculus of kidney; I25.10 Atherosclerotic heart disease of native coronary artery without angina pectoris; Z87.891 Personal history of nicotine dependence; Z89.422 Acquired absence of other left toe(s); Z98.62 Peripheral vascular angioplasty status; Z96.659 Presence of unspecified artificial knee joint | CPT/HCPCS: 82962; G0277; 99183 ==

== ENCOUNTER 2017-02-27 08:26 | Outpatient (CLI) | payer MEDICARE, OTHER ==
[2017-02-27] MEDS ORDERED: XYLOCAINE TOPICAL 2% ONE (08:37)
[2017-02-27] MEDS ORDERED: XYLOCAINE TOPICAL 4% TP ONE (14:44)
== END 2017-02-27 08:27 | disposition home or self-care (01) ==
LOC: WOUND 08:26
PROVIDERS: ATTEND Podiatrist
DX: T87.89 Other complications of amputation stump (principal); E11.621 Type 2 diabetes mellitus with foot ulcer; L97.522 Non-pressure chronic ulcer of other part of left foot with fat layer exposed; E11.40 Type 2 diabetes mellitus with diabetic neuropathy, unspecified; E11.69 Type 2 diabetes mellitus with other specified complication; M86.8X7 Other osteomyelitis, ankle and foot; E11.21 Type 2 diabetes mellitus with diabetic nephropathy; I25.10 Atherosclerotic heart disease of native coronary artery without angina pectoris; N20.0 Calculus of kidney; Z96.659 Presence of unspecified artificial knee joint; Z98.62 Peripheral vascular angioplasty status; Z87.891 Personal history of nicotine dependence; Y83.5 Amputation of limb(s) as the cause of abnormal reaction of the patient, or of later complication, without mention of misadventure at the time of the procedure
CPT/HCPCS: 11042; 82962; G0277; 99183

== ENCOUNTER 2017-02-28 08:47 | Outpatient (CLI) | payer MEDICARE, OTHER | END 2017-02-28 08:48 | disposition home or self-care (01) | LOC: WOUND 08:47 | PROVIDERS: ATTEND Internal Medicine | DX: T87.89 Other complications of amputation stump (principal); E11.621 Type 2 diabetes mellitus with foot ulcer; L97.522 Non-pressure chronic ulcer of other part of left foot with fat layer exposed; E11.40 Type 2 diabetes mellitus with diabetic neuropathy, unspecified; E11.21 Type 2 diabetes mellitus with diabetic nephropathy; I25.10 Atherosclerotic heart disease of native coronary artery without angina pectoris; E11.69 Type 2 diabetes mellitus with other specified complication; M86.8X7 Other osteomyelitis, ankle and foot; Z89.422 Acquired absence of other left toe(s); Z87.442 Personal history of urinary calculi; Z87.891 Personal history of nicotine dependence; Z98.62 Peripheral vascular angioplasty status; Z96.659 Presence of unspecified artificial knee joint; Y83.5 Amputation of limb(s) as the cause of abnormal reaction of the patient, or of later complication, without mention of misadventure at the time of the procedure | CPT/HCPCS: 82962; G0277; 99183 ==

== ENCOUNTER 2017-03-01 08:18 | Outpatient (CLI) | payer MEDICARE, OTHER | END 2017-03-01 08:19 | disposition home or self-care (01) | LOC: WOUND 08:18 | PROVIDERS: ATTEND Internal Medicine | DX: E11.621 Type 2 diabetes mellitus with foot ulcer (principal); L97.522 Non-pressure chronic ulcer of other part of left foot with fat layer exposed; E11.40 Type 2 diabetes mellitus with diabetic neuropathy, unspecified; E11.69 Type 2 diabetes mellitus with other specified complication; M86.8X7 Other osteomyelitis, ankle and foot; E11.21 Type 2 diabetes mellitus with diabetic nephropathy; I25.10 Atherosclerotic heart disease of native coronary artery without angina pectoris; Z89.422 Acquired absence of other left toe(s); Z87.442 Personal history of urinary calculi; Z87.891 Personal history of nicotine dependence; Z98.62 Peripheral vascular angioplasty status; Z96.659 Presence of unspecified artificial knee joint | CPT/HCPCS: 82962; G0277; 99183 ==

== ENCOUNTER 2017-03-02 08:25 | Outpatient (CLI) | payer MEDICARE, OTHER ==
[2017-03-02] MEDS ORDERED: XYLOCAINE TOPICAL 2% TP ONE ×2 (08:37→12:07)
== END 2017-03-02 08:26 | disposition home or self-care (01) ==
LOC: WOUND 08:25
PROVIDERS: ATTEND Podiatrist
DX: T81.89XD Other complications of procedures, not elsewhere classified, subsequent encounter (principal); E11.621 Type 2 diabetes mellitus with foot ulcer; L97.521 Non-pressure chronic ulcer of other part of left foot limited to breakdown of skin; E11.40 Type 2 diabetes mellitus with diabetic neuropathy, unspecified; E11.69 Type 2 diabetes mellitus with other specified complication; M86.8X7 Other osteomyelitis, ankle and foot; I25.10 Atherosclerotic heart disease of native coronary artery without angina pectoris; Z87.891 Personal history of nicotine dependence; Z47.81 Encounter for orthopedic aftercare following surgical amputation; Z89.422 Acquired absence of other left toe(s); Y83.8 Other surgical procedures as the cause of abnormal reaction of the patient, or of later complication, without mention of misadventure at the time of the procedure
CPT/HCPCS: 82962; G0277; G0463; 99183; 99213

== ENCOUNTER 2017-03-05 09:55 | Outpatient (CLI) | payer MEDICARE, OTHER | END 2017-03-05 09:56 | disposition home or self-care (01) | LOC: WOUND 09:55 | PROVIDERS: ATTEND Surgery | DX: E11.621 Type 2 diabetes mellitus with foot ulcer (principal); L97.522 Non-pressure chronic ulcer of other part of left foot with fat layer exposed; E11.40 Type 2 diabetes mellitus with diabetic neuropathy, unspecified; E11.69 Type 2 diabetes mellitus with other specified complication; M86.8X7 Other osteomyelitis, ankle and foot; I25.10 Atherosclerotic heart disease of native coronary artery without angina pectoris; Z89.422 Acquired absence of other left toe(s); Z87.891 Personal history of nicotine dependence | CPT/HCPCS: 82962; G0277; 99183 ==

== ENCOUNTER 2017-03-06 08:27 | Outpatient (CLI) | payer MEDICARE, OTHER ==
[2017-03-06] MEDS ORDERED: XYLOCAINE TOPICAL 2% ONE (08:37)
[2017-03-06] MEDS ORDERED: XYLOCAINE TOPICAL 2% TP ONE (14:31)
== END 2017-03-06 08:28 | disposition home or self-care (01) ==
LOC: WOUND 08:27
PROVIDERS: ATTEND Podiatrist
DX: T87.89 Other complications of amputation stump (principal); E11.621 Type 2 diabetes mellitus with foot ulcer; L97.522 Non-pressure chronic ulcer of other part of left foot with fat layer exposed; E11.40 Type 2 diabetes mellitus with diabetic neuropathy, unspecified; E11.69 Type 2 diabetes mellitus with other specified complication; M86.8X7 Other osteomyelitis, ankle and foot; I25.10 Atherosclerotic heart disease of native coronary artery without angina pectoris; Z87.891 Personal history of nicotine dependence; Y83.5 Amputation of limb(s) as the cause of abnormal reaction of the patient, or of later complication, without mention of misadventure at the time of the procedure
CPT/HCPCS: 82962; C5275; G0277; Q4102; 99183

== ENCOUNTER 2017-03-07 09:56 | Outpatient (CLI) | payer MEDICARE, OTHER | END 2017-03-07 09:57 | disposition home or self-care (01) | LOC: WOUND 09:56 | PROVIDERS: ATTEND Surgery | DX: T87.89 Other complications of amputation stump (principal); E11.621 Type 2 diabetes mellitus with foot ulcer; L97.522 Non-pressure chronic ulcer of other part of left foot with fat layer exposed; E11.69 Type 2 diabetes mellitus with other specified complication; M86.8X7 Other osteomyelitis, ankle and foot; E11.40 Type 2 diabetes mellitus with diabetic neuropathy, unspecified; E11.21 Type 2 diabetes mellitus with diabetic nephropathy; I25.10 Atherosclerotic heart disease of native coronary artery without angina pectoris; Z89.422 Acquired absence of other left toe(s); Z87.442 Personal history of urinary calculi; Z87.891 Personal history of nicotine dependence; Y83.5 Amputation of limb(s) as the cause of abnormal reaction of the patient, or of later complication, without mention of misadventure at the time of the procedure | CPT/HCPCS: 82962; G0277; 99183 ==

== ENCOUNTER 2017-03-16 08:32 | Outpatient (CLI) | payer MEDICARE, OTHER ==
[2017-03-16] MEDS ORDERED: XYLOCAINE TOPICAL 2% ONE (09:02)
[2017-03-16] MEDS ORDERED: XYLOCAINE TOPICAL 2% TP ONE (10:30)
== END 2017-03-16 08:33 | disposition home or self-care (01) ==
LOC: WOUND 08:32
PROVIDERS: ATTEND Podiatrist
DX: T87.89 Other complications of amputation stump (principal); E11.621 Type 2 diabetes mellitus with foot ulcer; L97.522 Non-pressure chronic ulcer of other part of left foot with fat layer exposed; E11.40 Type 2 diabetes mellitus with diabetic neuropathy, unspecified; E11.69 Type 2 diabetes mellitus with other specified complication; M86.8X7 Other osteomyelitis, ankle and foot; E11.21 Type 2 diabetes mellitus with diabetic nephropathy; I25.10 Atherosclerotic heart disease of native coronary artery without angina pectoris; Z87.442 Personal history of urinary calculi; Z86.718 Personal history of other venous thrombosis and embolism; Z98.62 Peripheral vascular angioplasty status; Z96.659 Presence of unspecified artificial knee joint; Z89.422 Acquired absence of other left toe(s); Z87.891 Personal history of nicotine dependence; Y83.5 Amputation of limb(s) as the cause of abnormal reaction of the patient, or of later complication, without mention of misadventure at the time of the procedure
CPT/HCPCS: C5275; Q4102

== ENCOUNTER 2017-03-23 08:30 | Outpatient (CLI) | payer MEDICARE, OTHER ==
[2017-03-23] MEDS ORDERED: XYLOCAINE TOPICAL 4% TP ONE (09:03)
[2017-03-23] MEDS ORDERED: SILVER NITRATE TP ONE (10:00)
== END 2017-03-23 08:31 | disposition home or self-care (01) ==
LOC: WOUND 08:30
PROVIDERS: ATTEND Podiatrist
DX: T81.89XD Other complications of procedures, not elsewhere classified, subsequent encounter (principal); E11.621 Type 2 diabetes mellitus with foot ulcer; L97.522 Non-pressure chronic ulcer of other part of left foot with fat layer exposed; E11.40 Type 2 diabetes mellitus with diabetic neuropathy, unspecified; I25.10 Atherosclerotic heart disease of native coronary artery without angina pectoris; H91.90 Unspecified hearing loss, unspecified ear; Z86.718 Personal history of other venous thrombosis and embolism; Z89.422 Acquired absence of other left toe(s); Z96.659 Presence of unspecified artificial knee joint; Z98.62 Peripheral vascular angioplasty status; Z87.891 Personal history of nicotine dependence; Y83.8 Other surgical procedures as the cause of abnormal reaction of the patient, or of later complication, without mention of misadventure at the time of the procedure
CPT/HCPCS: C5275; Q4102

== ENCOUNTER 2017-03-30 08:13 | Outpatient (CLI) | payer MEDICARE, OTHER ==
[2017-03-30] MEDS ORDERED: XYLOCAINE TOPICAL 2% ONE (08:45)
[2017-03-30] MEDS ORDERED: XYLOCAINE TOPICAL 2% TP ONE (08:51)
[2017-03-30] MEDS ORDERED: XYLOCAINE TOPICAL 4% TP ONE (09:19)
[2017-03-30] MEDS ORDERED: SODIUM CHLORIDE FLUSH SYRINGE 10 ML IV ONE (14:08)
== END 2017-03-30 08:14 | disposition home or self-care (01) ==
LOC: WOUND 08:13
PROVIDERS: ATTEND Podiatrist
DX: T81.89XD Other complications of procedures, not elsewhere classified, subsequent encounter (principal); E11.621 Type 2 diabetes mellitus with foot ulcer; L97.522 Non-pressure chronic ulcer of other part of left foot with fat layer exposed; E11.40 Type 2 diabetes mellitus with diabetic neuropathy, unspecified; E11.69 Type 2 diabetes mellitus with other specified complication; M86.8X7 Other osteomyelitis, ankle and foot; I25.10 Atherosclerotic heart disease of native coronary artery without angina pectoris; H91.90 Unspecified hearing loss, unspecified ear; Z89.422 Acquired absence of other left toe(s); Z96.659 Presence of unspecified artificial knee joint; Z98.62 Peripheral vascular angioplasty status; Z87.891 Personal history of nicotine dependence; Z86.718 Personal history of other venous thrombosis and embolism; Y83.8 Other surgical procedures as the cause of abnormal reaction of the patient, or of later complication, without mention of misadventure at the time of the procedure
CPT/HCPCS: C5275; Q4102

== ENCOUNTER 2017-04-06 08:20 | Outpatient (CLI) | payer MEDICARE, OTHER ==
[2017-04-06] MEDS ORDERED: XYLOCAINE TOPICAL 2% ONE (08:36)
[2017-04-06] MEDS ORDERED: XYLOCAINE TOPICAL 2% TP ONE (09:00)
== END 2017-04-06 08:21 | disposition home or self-care (01) ==
LOC: WOUND 08:20
PROVIDERS: ATTEND Podiatrist
DX: T81.89XD Other complications of procedures, not elsewhere classified, subsequent encounter (principal); E11.621 Type 2 diabetes mellitus with foot ulcer; L97.522 Non-pressure chronic ulcer of other part of left foot with fat layer exposed; E11.40 Type 2 diabetes mellitus with diabetic neuropathy, unspecified; E11.69 Type 2 diabetes mellitus with other specified complication; M86.8X7 Other osteomyelitis, ankle and foot; H91.90 Unspecified hearing loss, unspecified ear; I25.10 Atherosclerotic heart disease of native coronary artery without angina pectoris; Z86.718 Personal history of other venous thrombosis and embolism; Z96.659 Presence of unspecified artificial knee joint; Z98.62 Peripheral vascular angioplasty status; Z89.422 Acquired absence of other left toe(s); Z87.891 Personal history of nicotine dependence; Y83.8 Other surgical procedures as the cause of abnormal reaction of the patient, or of later complication, without mention of misadventure at the time of the procedure

== ENCOUNTER 2017-04-13 08:16 | Outpatient (CLI) | payer MEDICARE, OTHER ==
[2017-04-13] MEDS ORDERED: XYLOCAINE TOPICAL 2% ONE (08:38)
[2017-04-13] MEDS ORDERED: XYLOCAINE TOPICAL 2% TP ONE (08:43)
[2017-04-13] MEDS ORDERED: NACL 0.9% 0 ML IR ONE (08:57)
[2017-04-13] MEDS ORDERED: SODIUM CHLORIDE FLUSH SYRINGE 10 ML IV ONE (15:36)
== END 2017-04-13 08:17 | disposition home or self-care (01) ==
LOC: WOUND 08:16
PROVIDERS: ATTEND Podiatrist
DX: T81.89XD Other complications of procedures, not elsewhere classified, subsequent encounter (principal); E11.621 Type 2 diabetes mellitus with foot ulcer; L97.523 Non-pressure chronic ulcer of other part of left foot with necrosis of muscle; E11.40 Type 2 diabetes mellitus with diabetic neuropathy, unspecified; I25.10 Atherosclerotic heart disease of native coronary artery without angina pectoris; H91.90 Unspecified hearing loss, unspecified ear; Z86.718 Personal history of other venous thrombosis and embolism; Z96.659 Presence of unspecified artificial knee joint; Z98.62 Peripheral vascular angioplasty status; Z87.891 Personal history of nicotine dependence; Y83.8 Other surgical procedures as the cause of abnormal reaction of the patient, or of later complication, without mention of misadventure at the time of the procedure

== ENCOUNTER 2017-04-20 08:26 | Outpatient (CLI) | payer MEDICARE, OTHER ==
[2017-04-20] MEDS ORDERED: XYLOCAINE TOPICAL 4% TP ONE (08:46)
== END 2017-04-20 08:27 | disposition home or self-care (01) ==
LOC: WOUND 08:26
PROVIDERS: ATTEND Podiatrist
DX: E11.621 Type 2 diabetes mellitus with foot ulcer (principal); L97.523 Non-pressure chronic ulcer of other part of left foot with necrosis of muscle; E11.40 Type 2 diabetes mellitus with diabetic neuropathy, unspecified; I25.10 Atherosclerotic heart disease of native coronary artery without angina pectoris; Z89.422 Acquired absence of other left toe(s); Z96.659 Presence of unspecified artificial knee joint; Z98.62 Peripheral vascular angioplasty status; Z87.891 Personal history of nicotine dependence

== ENCOUNTER 2017-04-24 10:44 | Outpatient (CLI) | payer MEDICARE, OTHER ==
[2017-04-24] MEDS ORDERED: XYLOCAINE TOPICAL 4% TP ONE ×2 (11:53→11:55)
[2017-04-24] MEDS ORDERED: DAKIN'S FULL STRENGTH ONE (12:22)
[2017-04-24] MEDS ORDERED: DAKIN'S FULL STRENGTH TP ONE (17:00)
== END 2017-04-24 10:45 | disposition home or self-care (01) ==
LOC: WOUND 10:44
PROVIDERS: ATTEND Surgery
DX: E11.621 Type 2 diabetes mellitus with foot ulcer (principal); L97.521 Non-pressure chronic ulcer of other part of left foot limited to breakdown of skin; I25.10 Atherosclerotic heart disease of native coronary artery without angina pectoris; E11.21 Type 2 diabetes mellitus with diabetic nephropathy; Z87.442 Personal history of urinary calculi; Z87.891 Personal history of nicotine dependence; Z98.62 Peripheral vascular angioplasty status; Z96.659 Presence of unspecified artificial knee joint; Z89.422 Acquired absence of other left toe(s); Z89.421 Acquired absence of other right toe(s)

== ENCOUNTER 2017-04-27 08:18 | Outpatient (CLI) | payer MEDICARE, OTHER ==
[2017-04-27] MEDS ORDERED: XYLOCAINE TOPICAL 4% TP ONE (09:30)
== END 2017-04-27 08:19 | disposition home or self-care (01) ==
LOC: WOUND 08:18
PROVIDERS: ATTEND Podiatrist
DX: E11.621 Type 2 diabetes mellitus with foot ulcer (principal); L97.523 Non-pressure chronic ulcer of other part of left foot with necrosis of muscle; E11.51 Type 2 diabetes mellitus with diabetic peripheral angiopathy without gangrene; E11.40 Type 2 diabetes mellitus with diabetic neuropathy, unspecified; E11.69 Type 2 diabetes mellitus with other specified complication; M86.8X7 Other osteomyelitis, ankle and foot; H91.90 Unspecified hearing loss, unspecified ear; I25.10 Atherosclerotic heart disease of native coronary artery without angina pectoris; Z89.422 Acquired absence of other left toe(s); Z86.718 Personal history of other venous thrombosis and embolism; Z96.659 Presence of unspecified artificial knee joint; Z98.62 Peripheral vascular angioplasty status
CPT/HCPCS: 99214; G0463

== ENCOUNTER 2017-05-01 11:41 | Inpatient (IN) | payer MEDICARE, OTHER ==
[2017-05-01] MEDS ORDERED: NARCAN 0.4 MG/1 ML IV PRN ×2 (13:04)
[2017-05-01] MEDS ORDERED: MILK OF MAGNESIA PO PRN (13:04)
[2017-05-01] MEDS ORDERED: BENADRYL IV PRN (13:04)
[2017-05-01] MEDS ORDERED: ZOFRAN IV PRN (13:04)
[2017-05-01] MEDS ORDERED: DULCOLAX PR PRN (13:04)
[2017-05-01] MEDS ORDERED: NITROMIST TL PRN (13:12)
[2017-05-01] MEDS ORDERED: RESTORIL PO PRN (13:12)
[2017-05-01] MEDS ORDERED: LEVOMEFOLATE CALCIUM PO SCH (13:15)
[2017-05-01] MEDS ORDERED: D50W (25GM) IV PRN (13:15)
[2017-05-01] MEDS ORDERED: B12 PO SCH (13:15)
[2017-05-01] MEDS ORDERED: B6 PO SCH (13:15)
[2017-05-01] MEDS ORDERED: EMPAGLIFLOZIN 25 MG PO SCH (13:15)
[2017-05-01] MEDS ORDERED: DILAUDID PCA 6MG/30ML IV SCH (14:00)
[2017-05-01] MEDS ORDERED: NACL 0.45% 1000 ML 1,000 ML IV SCH (14:00)
[2017-05-01 15:11] LABS: Basophils % (Auto) 0.5 % (0.0-1.8); Eosinophils % (Auto) 0.1 % (0.0-4.3); Hematocrit 42.4 % (35.5-45.6); Hemoglobin 14.2 gm/dl (11.8-15.2); Mean Corpuscular HGB Conc 34 % (32-34); Mean Corpuscular Hemoglobin 30 pg (28-32); Mean Corpuscular Volume 89 fl (84-94); Platelet Count 183 K/mm3 (140-440); Red Blood Count 4.79 M/mm3 (3.65-5.03); Red Cell Distribution Width 12.9 % (13.2-15.2)
[2017-05-01 15:21] LABS: INR 1.15 (0.87-1.13)
[2017-05-01 15:22] LABS: Partial Thromboplastin Time 37.7 Sec. (24.2-36.6)
[2017-05-01 15:29] LABS: Anion Gap 23 mmol/L; BUN/Creatinine Ratio 17.69; Blood Urea Nitrogen 23 mg/dL (9-20); Calcium 9.5 mg/dL (8.4-10.2); Carbon Dioxide 22 mmol/L (22-30); Chloride 97.8 mmol/L (98-107); Glucose 321 mg/dL (75-100); Potassium 4.6 mmol/L (3.6-5.0); Sodium 138 mmol/L (137-145)
[2017-05-01] MEDS: FOLBEE PLUS CZ PO SCH (18:19)
[2017-05-01] MEDS: SENOKOT PO SCH ×2 (18:19→23:51)
[2017-05-01] MEDS: NORCO 5/325 PO PRN (18:19)
[2017-05-01] MEDS: COLACE PO SCH ×2 (18:19→22:55)
[2017-05-01] MEDS: PLAVIX PO SCH (18:31)
[2017-05-01] MEDS: NOVOLOG SUB-Q SCH ×2 (18:44→23:51)
[2017-05-01] MEDS: HEPARIN/ 0.45% NACL-25,000 UNIT/500 ML 25,000 UNIT/500 ML BAG IV SCH (21:08)
[2017-05-01] MEDS ORDERED: NON-FORMULARY (Insulin Glargine 25 UNITS) SUB-Q SCH (22:00)
[2017-05-01] MEDS: LEVEMIR SUB-Q SCH (22:55)
--- NOTE | 2017-05-01 23:42 | Consultation ---
History of Present Illness - Reason for Consult Consult date: 05/01/17 Medical management Requesting physician: SONYA CADENA - History of Present Illness Patient presents with severe pain in L foot .Patient states pain has increased extremely for last couple of weeks.Pain is most intense when he stands up and puts pressure on his left foot. Past History Past Medical History: diabetes, heart failure, hypertension, PVD, other (Kidney stones) Past Surgical History: CABG, PTCA, Other (Shoulder reeplacement Rt 1974 Foot surgery Knee sugery Atherectom 10/1601/12/17) Social history: smoking (in the past till 20 yrs ago) Family history: hypertension Medications and Allergies Allergies Allergy/AdvReac Type Severity Reaction Status Date / Time bismuth subsalicylate Allergy Vomiting Verified 05/30/16 08:43 castor oil Allergy Vomiting Verified 05/22/16 09:22 oxycodone HCl [From Percocet] Allergy Dizziness Verified 05/22/16 09:24 meperidine HCl [From Demerol] AdvReac COMBATIVENE Verified 05/30/16 08:45 SS propoxyphene napsylate AdvReac Dizziness Verified 05/22/16 09:23 [From Darvocet-N] NARCOTICS AdvReac COMBATIVENE Uncoded 05/30/16 08:45 SS Home Medications Medication Instructions Recorded Confirmed Last Taken Type Dorzolamide/Timolol/Pf [Cosopt Pf 2 drop INTRAOCULA Q12HR MDD 2 gtts 05/22/1605/01/17 08:00 History Eye Drops] Empagliflozin [Jardiance] 25 mg PO DAILY MDD 25mg 05/22/16 05/01/17 04/30/17 08: 00 History B12/Levomefolate Calcium/B-6 1 tab PO DAILY #30 tablet 08/26/16 05/01/17 08:00 Rx [Foltx Tablet] Clopidogrel [Plavix] 75 mg PO QDAY #30 tablet 08/26/16 05/01/17 05/01/17 08:00 Rx Insulin Glargine [Lantus VIAL] 25 units SUB-Q QHS #10 units 08/26/16 05/01/17 23:00 Rx Lisinopril [Zestril TAB] 40 mg PO QDAY #30 tablet 08/26/16 05/01/17 04/30/17 12: 00 Rx 40mg Metoprolol Xl [Metoprolol 50 mg PO QDAY 30 Days 08/26/16 05/01/17 04/30/17 08: 00 Rx SUCCINATE ER TAB] Nitroglycerin [place] [Nitromist] 0.4 mg INHALATION PRN PRN #30 08/26/16 05/01/17 05/01/16 16:00 Rx bottle 0.4mg Pregabalin [Lyrica] 100 mg PO DAILY #60 capsule 08/26/16 05/01/17 05/01/17 08: 00 Rx 100mg Dabigatran [Pradaxa] 75 mg PO BID MDD 75mg 01/24/17 05/01/17 05/01/17 08:00 History Acetaminophen [Acetaminophen TAB] 650 mg PO Q4H PRN #30 tablet 02/02/1704/30/17 23:00 Rx 650mg Active Meds: Active Medications Acetaminophen (Tylenol) 650 mg PO Q4H PRN PRN Reason: Pain MILD(1-3)/Fever >100.5/[place] Acetaminophen/Hydrocodone Bitart ([place] 5/325) 2 each PO Q6H PRN PRN Reason: Pain, Moderate (4-6) Last Admin: 05/01/17 18:19 Dose: 2 each Bisacodyl (Dulcolax) 10 mg VA QDAY PRN PRN Reason: Constipation unrelieved by MOM Clopidogrel Bisulfate (Plavix) 75 mg PO QDAY [facility] Last Admin: 05/01/17 18:31 Dose: 75 mg Dextrose (D50w (25gm)) 50 ml IV PRN PRN PRN Reason: Hypoglycemia Diphenhydramine HCl (Benadryl) 25 mg IV Q4H PRN PRN Reason: Itching Docusate Sodium (Colace) 100 mg PO BID [facility] Last Admin: 05/01/17 22:55 Dose: 100 mg Hydromorphone/Sodium Chloride (Dilaudid Weeder Thinner 6mg/30ml) 0 mg IV DIRECT MARQUEZ PRN Reason: Protocol Sodium Chloride (Nacl 0.45% 1000 Ml) 1,000 mls @ 75 mls/hr IV DIRECT [facility] Heparin Sodium/Sodium Chloride (Heparin/ 0.45% Nacl-25,000 Unit/500 Ml) 25,000 unit in 500 mls @ 27 mls/hr IV TITR MARQUEZ; 1,350 UNITS/HR PRN Reason: Protocol Last Admin: 05/01/17 21:08 Dose: 1,350 units/hr, 27 mls/hr Insulin Aspart (Novolog) 0 units SUB-Q Q6HR [facility] PRN Reason: Protocol Stop: 05/02/17 00:00 Last Admin: 05/01/17 18:44 Dose: 3 units Insulin Aspart (Novolog) 0 units SUB-Q ACHS [facility] PRN Reason: Protocol Insulin Detemir (Levemir) 25 units SUB-Q QHS [facility] Last Admin: 05/01/17 22:55 Dose: 25 units Lisinopril (Zestril) 40 mg PO QDAY [facility] Magnesium Hydroxide (Milk Of Magnesia) 30 ml PO Q4H PRN PRN Reason: Constipation Metoprolol Succinate (Toprol Xl) 50 mg PO QDAY [facility] Miscellaneous Medication (Dorzolamide/Timolol/Pf [Cosopt Pf Eye Drops]) 1 drop INTRAOCULA DAILY [facility] Miscellaneous Medication (Empagliflozin [Jardiance]) 25 mg PO DAILY [facility] Morphine Sulfate (Morphine) 4 mg IV Q4H PRN PRN Reason: Pain , Severe (7-10) Naloxone HCl (Narcan 0.4 Mg/1 Ml) 0.1 mg IV Q2MIN PRN PRN Reason: Res Rate </= 8 or 02 SAT < 92% Nitroglycerin (Nitromist) 1 spray TL PRN PRN PRN Reason: Chest Pain Ondansetron HCl (Zofran) 4 mg IV Q8H PRN PRN Reason: Nausea Pregabalin (Lyrica) 100 mg PO DAILY [facility] Senna (Senokot) 8.6 mg PO Q12HR [facility] Last Admin: 05/01/17 18:19 Dose: 8.6 mg Temazepam (Restoril) 15 mg PO QHS PRN PRN Reason: Sleep Vitamin B Complex/Folic Acid (Folbee Plus Cz) 1 each PO QDAY [facility] Last Admin: 05/01/17 18:19 Dose: 1 each Review of Systems All systems: negative Musculoskeletal: shooting leg pain (LLE) Exam - Constitutional Vitals: Temp Pulse Resp BP Pulse Ox 99.8 F H 90 18 96/57 97 05/01/17 22:00 05/01/17 22:00 05/01/17 22:00 05/01/17 22:00 05/01/17 22:00 General appearance: Present: no acute distress, well-nourished - EENT Eyes: Present: PERRL ENT: hearing intact, clear oral mucosa - Neck Neck: Present: supple, normal ROM - Respiratory Respiratory effort: normal Respiratory: bilateral: CTA - Cardiovascular Heart Sounds: Present: S1 & S2. Absent: rub, click - Extremities Extremities: pulses symmetrical, No edema Peripheral Pulses: within normal limits - Abdominal General gastrointestinal: Present: soft, non-tender, non-distended, normal bowel sounds Male genitourinary: Present: normal - Integumentary Integumentary: Present: clear, warm, dry - Musculoskeletal Musculoskeletal: gait normal, strength equal bilaterally - Psychiatric Psychiatric: appropriate mood/affect, intact judgment & insight - Neurologic Neurologic: CNII-XII intact, moves all extremities Results - Labs CBC & Chem 7: 05/02/17 03:51 05/02/17 03:51 Labs: Abnormal lab results 05/01/17 05/01/17 05/01/17 Range/Units 14:55 14:55 14:55 WBC 12.0 H (4.5-11.0) K/mm3 RDW 12.9 L (13.2-15.2) % Lymph % (Auto) 6.3 L (13.4-35.0) % Lymph # 0.8 L (1.2-5.4) K/mm3 [place] # 0.9 H (0.0-0.8) K/mm3 Seg Neutrophils % 85.9 H (40.0-70.0) % Seg Neutrophils # 10.3 H (1.8-7.7) K/mm3 INR 1.15 H (0.87-1.13) APTT 37.7 H (24.2-36.6) Sec. Chloride 97.8 L (98-107) mmol/L BUN 23 H (9-20) mg/dL Glucose 321 H (75-100) mg/dL POC Glucose (70-105) 05/01/17 05/01/17 Range/Units 18:32 21:49 WBC (4.5-11.0) K/mm3 RDW (13.2-15.2) % Lymph % (Auto) (13.4-35.0) % Lymph # (1.2-5.4) K/mm3 [place] # (0.0-0.8) K/mm3 Seg Neutrophils % (40.0-70.0) % Seg Neutrophils # (1.8-7.7) K/mm3 INR (0.87-1.13) APTT (24.2-36.6) Sec. Chloride (98-107) mmol/L BUN (9-20) mg/dL Glucose (75-100) mg/dL POC Glucose 247 H 280 H (70-105) Assessment and Plan - Patient Problems (1) IDDM (insulin dependent diabetes mellitus) Current Visit: Yes Status: Chronic Plan to address problem: Check A1c.Cont his home insulin and coverage ACHS (2) PAD (peripheral artery disease) Onset Date: 08/22/16 Current Visit: No Status: Chronic Plan to address problem: PPer Vascular/.IR (3) Hypertension Onset Date: 07/13/16 Current Visit: No Status: Chronic Qualifiers: Hypertension type: essential hypertension Qualified Code(s): I10 - Essential (primary) hypertension Plan to address problem: On Metoprolol (4) CAD (coronary artery disease) Current Visit: Yes Status: Chronic Qualifiers: Coronary Disease-Associated Artery/Lesion type: [place] artery [place] vs. transplanted heart: N Associated angina: without angina Plan to address problem: On Plavix 75 mg po qd (5) Peripheral neuropathy Current Visit: Yes Status: Chronic Qualifiers: Peripheral neuropathy type: polyneuropathy associated with underlying disease Qualified Code(s): G63 - Polyneuropathy in diseases classified elsewhere Plan to address problem: Cont Lyrica (6) DVT prophylaxis Current Visit: Yes Status: Acute Plan to address problem: On lovenox
[2017-05-02 04:22] LABS: Basophils % (Auto) 0.5 % (0.0-1.8); Eosinophils % (Auto) 0.8 % (0.0-4.3); Hematocrit 38.6 % (35.5-45.6); Hemoglobin 12.9 gm/dl (11.8-15.2); Mean Corpuscular HGB Conc 33 % (32-34); Mean Corpuscular Hemoglobin 30 pg (28-32); Mean Corpuscular Volume 89 fl (84-94); Platelet Count 171 K/mm3 (140-440); Red Blood Count 4.34 M/mm3 (3.65-5.03); Red Cell Distribution Width 12.8 % (13.2-15.2); White Blood Count 8.3 K/mm3 (4.5-11.0)
[2017-05-02 04:32] LABS: Anion Gap 19 mmol/L; BUN/Creatinine Ratio 17.27; Blood Urea Nitrogen 19 mg/dL (9-20); Calcium 9.1 mg/dL (8.4-10.2); Carbon Dioxide 23 mmol/L (22-30); Chloride 101.4 mmol/L (98-107); Glucose 136 mg/dL (75-100); Potassium 4.4 mmol/L (3.6-5.0); Sodium 139 mmol/L (137-145)
[2017-05-02] MEDS: MORPHINE IV PRN ×4 (06:29→21:11)
--- NOTE | 2017-05-02 07:53 | Progress Note ---
Assessment and Plan 1. IDDM: Continue with SSI, Consistent Carbohydrate diet 2. PAD left LE: Mx per vascular surgeon 3. Diabetic Left foot wound : local wound care Subjective Date of service: 05/02/17 Principal diagnosis: PAD, T2DM Interval history: Pt with T2DM, well known to me admitted for left LE angioplastic procedure. DM controlled with SSI. Denies any polyuria, polyphasia or polydipsia Objective - Constitutional Vitals: Vital Signs - 12hr 05/01/17 05/01/17 05/02/17 20:00 22:00 03:25 Temperature 99.8 F H Pulse Rate 80 Pulse Rate [ 90 90 Left] Respiratory 18 Rate Blood Pressure 96/57 [Left Arm] Blood Pressure [Left] O2 Sat by Pulse 97 97 Oximetry 05/02/17 06:36 Temperature 99.8 F H Pulse Rate 75 Pulse Rate [ Left] Respiratory 18 Rate Blood Pressure [Left Arm] Blood Pressure 120/64 [Left] O2 Sat by Pulse Oximetry General appearance: Present: no acute distress, well-nourished - EENT Eyes: PERRL, EOM intact ENT: hearing intact, clear oral mucosa Ears: bilateral: normal - Neck Neck: supple, normal ROM - Respiratory Respiratory effort: normal Respiratory: bilateral: CTA - Cardiovascular Rhythm: regular Heart Sounds: Present: S1 & S2. Absent: gallop, rub Extremities: pulses intact, No edema, normal color, Full ROM - Gastrointestinal General gastrointestinal: Present: soft, non-tender, non-distended, normal bowel sounds - Integumentary Integumentary: clear, warm, dry - Musculoskeletal Musculoskeletal: strength equal bilaterally, other (ampuation of naveed right lateral 2 toes) - Neurologic Neurologic: moves all extremities - Psychiatric Psychiatric: memory intact, appropriate mood/affect, intact judgment & insight - Labs CBC & Chem 7: 05/02/17 03:51 05/02/17 03:51 Labs: Abnormal lab results 05/01/17 05/01/17 05/01/17 Range/Units 14:55 14:55 14:55 WBC 12.0 H (4.5-11.0) K/mm3 RDW 12.9 L (13.2-15.2) % Lymph % (Auto) 6.3 L (13.4-35.0) % [place] % (Auto) (0.0-7.3) % Lymph # 0.8 L (1.2-5.4) K/mm3 [place] # 0.9 H (0.0-0.8) K/mm3 Seg Neutrophils % 85.9 H (40.0-70.0) % Seg Neutrophils # 10.3 H (1.8-7.7) K/mm3 INR 1.15 H (0.87-1.13) APTT 37.7 H (24.2-36.6) Sec. Heparin Anti-Xa Level (0.3-0.7) U.I./ml Chloride 97.8 L (98-107) mmol/L BUN 23 H (9-20) mg/dL Glucose 321 H (75-100) mg/dL POC Glucose (70-105) 05/01/17 05/01/17 05/02/17 Range/Units 18:32 21:49 03:51 WBC (4.5-11.0) K/mm3 RDW 12.8 L (13.2-15.2) % Lymph % (Auto) (13.4-35.0) % [place] % (Auto) 12.4 H (0.0-7.3) % Lymph # (1.2-5.4) K/mm3 [place] # 1.0 H (0.0-0.8) K/mm3 Seg Neutrophils % (40.0-70.0) % Seg Neutrophils # (1.8-7.7) K/mm3 INR (0.87-1.13) APTT (24.2-36.6) Sec. Heparin Anti-Xa Level (0.3-0.7) U.I./ml Chloride (98-107) mmol/L BUN (9-20) mg/dL Glucose (75-100) mg/dL POC Glucose 247 H 280 H (70-105) 05/02/17 05/02/17 Range/Units 03:51 03:51 WBC (4.5-11.0) K/mm3 RDW (13.2-15.2) % Lymph % (Auto) (13.4-35.0) % [place] % (Auto) (0.0-7.3) % Lymph # (1.2-5.4) K/mm3 [place] # (0.0-0.8) K/mm3 Seg Neutrophils % (40.0-70.0) % Seg Neutrophils # (1.8-7.7) K/mm3 INR (0.87-1.13) APTT (24.2-36.6) Sec. Heparin Anti-Xa Level 0.22 L (0.3-0.7) U.I./ml Chloride (98-107) mmol/L BUN (9-20) mg/dL Glucose 136 H (75-100) mg/dL POC Glucose (70-105)
[2017-05-02] MEDS: NOVOLOG SUB-Q SCH ×4 (08:46→22:25)
--- NOTE | 2017-05-02 09:57 | Admit Criteria Form ---
Admission Criteria Documentation: VASCULAR DISEASE GRG Clinical Indications for Admission to Inpatient Care (Place 'X' for any and all applicable criteria): Hospital admission is needed for appropriate care of the patient because of ANY ONE of the following (1)(2)(3)(4): [ ]I. Life-threatening or limb-threatening skin ulcer as indicated by ANY ONE of the following(5): [ ]a) Surrounding cellulitis unresponsive to outpatient treatment [ ]b) Wet gangrene [ ]c) Lymphangitis [ ]d) Bacteremia [ ]II. Gangrene requiring intensity and frequency of care not manageable to outpatient, emergency, or observation level of care(5) [X]III. Severe pain requiring acute inpatient management [ ]IV. Interventional revascularization (eg, surgery, thrombolysis) needed (eg , critical limb ischemia)(21) [ ]V. Urgent inpatient IV anticoagulation needed due to ALL of the following: [ ]a) Temporary subtherapeutic anticoagulation unacceptable because of high risk of short-term venous or arterial thromboembolism due to ANY ONE of the following(7)(8)(9): [ ]i) Venous thromboembolism within the past 12 months [ ]ii) Underlying malignancy [ ]iii) Patient with mechanical cardiac valve(10)(11) [ ]iv) Underlying hypercoagulable state (eg, protein C or protein S deficiency, antithrombin deficiency, antiphospholipid antibodies) [ ]v) Patient at high risk of thromboembolism (eg, status post orthopedic surgery, history of recurrent venous thromboembolism) [ ]vi) Atrial fibrillation with rheumatic valvular heart disease [ ]vii) Atrial fibrillation with 3 or MORE of the following : [ ]1) Congestive heart failure [ ]2) Hypertension [ ]3) Age 65 years or older [ ]4) Diabetes mellitus [ ]5) History of thromboembolism (eg, stroke, TIA , or systemic embolization) more than 3 months ago [ ]6) Female gender [ ]b) Contraindications to outpatient use of "bridging" agent or alternative oral anticoagulant as indicated by ALL of the following: [ ]i) Contraindication to outpatient use of low-molecular -weight heparin as "bridging" agent as indicated by ANY ONE of the following(8) : [ ]1) Documented current or history of heparin- induced thrombocytopenia(12) [ ]2) Severe thrombocytopenia (eg, platelet count less than 50,000/mm3 (50 x109/L)) [ ]3) Documented allergy to heparin, low- molecular-weight heparin, or pork products [ ]4) Renal failure (creatinine clearance < 30 mL /min/1.73m2 (0.50 mL/sec/1.73m2) or on dialysis) [ ]5) Inability to manage self-injection (eg, by patient, caregiver, or visiting nurse) [ ]ii) Contraindication to outpatient use of fondaparinux as "bridging" agent as indicated by ANY ONE of the following(13)(14)(15)(16): [ ]1) Severe thrombocytopenia (eg, platelet count less than 50,000/mm3 (50 x109/L)) [ ]2) Hypersensitivity to fondaparinux, related drugs, or product components [ ]3) Renal failure (creatinine clearance less than 30 mL/min/1.73m2 (0.50 mL/sec/1.73m2) or on dialysis) [ ]4) Inability to manage self-injection (eg, by patient, caregiver, or visiting nurse) [ ]iii) Oral direct thrombin inhibitor (eg, dabigatran) or oral coagulation factor Xa inhibitor (eg, rivaroxaban) not appropriate as oral anticoagulation (eg, indication not appropriate) or contraindicated (eg, hypersensitivity, renal failure)(13)(16)(17)(18)(19)(20) [ ]. Suspected severe acute ischemia due to peripheral vascular disease as indicated by ANY ONE of the following(5)(6): [ ]a) Tissue necrosis [ ]b) Severe pain [ ]c) Acute pulselessness [ ]d) Other evidence of acute severe ischemia (eg, lactic acidosis , motor dysfunction) [ ]VII. Acute or newly diagnosed major vessel (eg, aorta) dissection, rupture, or leakage(5)(6)(22)(23) [ ]VIII.Vascular Disease and ALL of the following: [ ]a) Symptom or finding for which emergency and observation care have failed or are not considered appropriate (Use General Criteria: Observation Care as appropriate) [ ]b) Presence of ANY ONE of the following: [ ]i) A General Admission Criteria [ ]ii) A Pediatric General Admission Criteria The original [facility] [place] content created by Abril [employer] has been revised. The portions of the content which have been revised are identified through the use of italic text or in bold, and [facility] has neither reviewed nor approved the modified material. All other unmodified content is copyright [facility]. Please see references footnoted in the original [facility] edition 2016 Admission Criteria Met: Yes
[2017-05-02] MEDS ORDERED: TIMOLOL INTRAOCULA SCH (10:00)
[2017-05-02] MEDS ORDERED: NON-FORMULARY (Pregabalin [Lyrica] 100 MG) PO SCH (10:00)
[2017-05-02] MEDS ORDERED: DORZOLAMIDE INTRAOCULA SCH (10:00)
[2017-05-02] MEDS: TOPROL XL PO SCH (10:01)
[2017-05-02] MEDS: COLACE PO SCH ×2 (10:02→21:16)
[2017-05-02] MEDS: FOLBEE PLUS CZ PO SCH (10:02)
[2017-05-02] MEDS: ZESTRIL PO SCH (10:02)
[2017-05-02] MEDS: SENOKOT PO SCH ×2 (10:02→21:16)
[2017-05-02] MEDS: PLAVIX PO SCH (10:02)
[2017-05-02] MEDS: LYRICA PO SCH (10:02)
--- NOTE | 2017-05-02 10:56 | Consultation ---
History of Present Illness Consult date: 05/02/17 Consult reason: pre op evaluation History of present illness: 76 year old gentleman presenting with ischemic leg disease, left foot ulcers currently on IV heparin. Vascular anticipating potential need for a repeat fem- pop bypass. Patient denies chest pain, shortness of breath, PND or orthopnea. Patient is known insulin dependent type II DM, CAD s/p CABG several years ago with the most recent ischemic evaluation done in 2013, ischemic cardiomyopathy with a LVEF 40-45%, hyperlipidemia and hypertension. No 12 lead ECG in the chart. Physical activity is very limited due to his foot pathology. Past History Past Medical History: diabetes, heart failure, hypertension, PVD, other (Kidney stones) Past Surgical History: CABG, PTCA, Other (Shoulder reeplacement Rt 1973 Foot surgery Knee sugery Atherectom 10/1601/12/17) Social history: smoking (in the past till 20 yrs ago) Family history: hypertension Medications and Allergies Allergies Allergy/AdvReac Type Severity Reaction Status Date / Time bismuth subsalicylate Allergy Vomiting Verified 05/30/16 08:43 castor oil Allergy Vomiting Verified 05/22/16 09:22 oxycodone HCl [From Percocet] Allergy Dizziness Verified 05/22/16 09:24 meperidine HCl [From Demerol] AdvReac COMBATIVENE Verified 05/30/16 08:45 SS propoxyphene napsylate AdvReac Dizziness Verified 05/22/16 09:23 [From Darvocet-N] NARCOTICS AdvReac COMBATIVENE Uncoded 05/30/16 08:45 SS Home Medications Medication Instructions Recorded Confirmed Last Taken Type Dorzolamide/Timolol/Pf [Cosopt Pf 2 drop INTRAOCULA Q12HR MDD 2 gtts 05/22/1605/01/17 08:00 History Eye Drops] Empagliflozin [Jardiance] 25 mg PO DAILY MDD 25mg 05/22/16 05/01/17 04/30/17 08: 00 History B12/Levomefolate Calcium/B-6 1 tab PO DAILY #30 tablet 08/26/16 05/01/17 08:00 Rx [Foltx Tablet] Clopidogrel [Plavix] 75 mg PO QDAY #30 tablet 08/26/16 05/01/17 05/01/17 08:00 Rx Insulin Glargine [Lantus VIAL] 25 units SUB-Q QHS #10 units 08/26/16 05/01/17 23:00 Rx Lisinopril [Zestril TAB] 40 mg PO QDAY #30 tablet 08/26/16 05/01/17 04/30/17 12: 00 Rx 40mg Metoprolol Xl [Metoprolol 50 mg PO QDAY 30 Days 08/26/16 05/01/17 04/30/17 08: 00 Rx SUCCINATE ER TAB] Nitroglycerin [place] [Nitromist] 0.4 mg INHALATION PRN PRN #30 08/26/16 05/01/17 05/01/16 16:00 Rx bottle 0.4mg Pregabalin [Lyrica] 100 mg PO DAILY #60 capsule 08/26/16 05/01/17 05/01/17 08: 00 Rx 100mg Dabigatran [Pradaxa] 75 mg PO BID MDD 75mg 01/24/17 05/01/17 05/01/17 08:00 History Acetaminophen [Acetaminophen TAB] 650 mg PO Q4H PRN #30 tablet 02/02/1704/30/17 23:00 Rx 650mg Active Meds: Active Medications Acetaminophen (Tylenol) 650 mg PO Q4H PRN PRN Reason: Pain MILD(1-3)/Fever >100.5/[place] Acetaminophen/Hydrocodone Bitart ([place] 5/325) 2 each PO Q6H PRN PRN Reason: Pain, Moderate (4-6) Last Admin: 05/01/17 18:19 Dose: 2 each Atorvastatin Calcium (Lipitor) 10 mg PO QHS [facility] Bisacodyl (Dulcolax) 10 mg MA QDAY PRN PRN Reason: Constipation unrelieved by MOM Clopidogrel Bisulfate (Plavix) 75 mg PO QDAY [facility] Last Admin: 05/02/17 10:02 Dose: 75 mg Dextrose (D50w (25gm)) 50 ml IV PRN PRN PRN Reason: Hypoglycemia Diphenhydramine HCl (Benadryl) 25 mg IV Q4H PRN PRN Reason: Itching Docusate Sodium (Colace) 100 mg PO BID [facility] Last Admin: 05/02/17 10:02 Dose: 100 mg Hydromorphone/Sodium Chloride (Dilaudid Ssn/Ss[employer] 6mg/30ml) 0 mg IV DIRECT MARQUEZ PRN Reason: Protocol Sodium Chloride (Nacl 0.45% 1000 Ml) 1,000 mls @ 75 mls/hr IV DIRECT MARQUEZ Heparin Sodium/Sodium Chloride (Heparin/ 0.45% Nacl-25,000 Unit/500 Ml) 25,000 unit in 500 mls @ 27 mls/hr IV TITR MARQUEZ; 1,350 UNITS/HR PRN Reason: Protocol Last Admin: 05/01/17 21:08 Dose: 1,350 units/hr, 27 mls/hr Insulin Aspart (Novolog) 0 units SUB-Q ACHS [facility] PRN Reason: Protocol Last Admin: 05/02/17 08:46 Dose: Not Given Insulin Detemir (Levemir) 25 units SUB-Q QHS [facility] Last Admin: 05/01/17 22:55 Dose: 25 units Lisinopril (Zestril) 40 mg PO QDAY [facility] Last Admin: 05/02/17 10:02 Dose: 40 mg Magnesium Hydroxide (Milk Of Magnesia) 30 ml PO Q4H PRN PRN Reason: Constipation Metoprolol Succinate (Toprol Xl) 50 mg PO QDAY [facility] Last Admin: 05/02/17 10:01 Dose: 50 mg Miscellaneous Medication (Dorzolamide/Timolol/Pf [Cosopt Pf Eye Drops]) 1 drop INTRAOCULA DAILY [facility] Miscellaneous Medication (Empagliflozin [Jardiance]) 25 mg PO DAILY [facility] Morphine Sulfate (Morphine) 4 mg IV Q4H PRN PRN Reason: Pain , Severe (7-10) Last Admin: 05/02/17 10:03 Dose: 4 mg Naloxone HCl (Narcan 0.4 Mg/1 Ml) 0.1 mg IV Q2MIN PRN PRN Reason: Res Rate </= 8 or 02 SAT < 92% Nitroglycerin (Nitromist) 1 spray TL PRN PRN PRN Reason: Chest Pain Ondansetron HCl (Zofran) 4 mg IV Q8H PRN PRN Reason: Nausea Pregabalin (Lyrica) 100 mg PO DAILY [facility] Last Admin: 05/02/17 10:02 Dose: 100 mg Senna (Senokot) 8.6 mg PO Q12HR [facility] Last Admin: 05/02/17 10:02 Dose: 8.6 mg Temazepam (Restoril) 15 mg PO QHS PRN PRN Reason: Sleep Last Admin: 05/02/17 03:31 Dose: 15 mg Vitamin B Complex/Folic Acid (F[place] Plus Cz) 1 each PO QDAY [facility] Last Admin: 05/02/17 10:02 Dose: 1 each Review of Systems All systems: negative Physical Examination Vital Signs Temp Pulse Resp BP Pulse Ox 99.7 F H 94 H 18 161/83 98 05/01/17 14:54 05/01/17 14:54 05/01/17 14:54 05/01/17 14:54 05/01/17 14:54 General appearance: no acute distress HEENT: Positive: PERRL Neck: Positive: neck supple Cardiac: Positive: Reg Rate and Rhythm Lungs: Positive: Normal Exam Neuro: Positive: Grossly Intact Abdomen: Positive: Soft Extremities: Absent: edema Results 05/02/17 03:51 05/02/17 03:51 Coagulation 05/01/17 Range/Units 14:55 PT 14.6 (12.2-14.9) Sec. INR 1.15 H (0.87-1.13) APTT 37.7 H (24.2-36.6) Sec. CBC 05/01/17 05/02/17 Range/Units 14:55 03:51 WBC 12.0 H 8.3 (4.5-11.0) K/mm3 RBC 4.79 4.34 (3.65-5.03) M/mm3 Hgb 14.2 12.9 (11.8-15.2) gm/dl Hct 42.4 38.6 (35.5-45.6) % Plt Count 183 171 (140-440) K/mm3 Lymph # 0.8 L 1.6 (1.2-5.4) K/mm3 [place] # 0.9 H 1.0 H (0.0-0.8) K/mm3 Eos # 0.0 0.1 (0.0-0.4) K/mm3 Baso # 0.1 0.0 (0.0-0.1) K/mm3 Comprehensive Metabolic Panel 05/01/17 05/02/17 Range/Units 14:55 03:51 Sodium 138 139 (137-145) mmol/L Potassium 4.6 4.4 (3.6-5.0) mmol/L Chloride 97.8 L 101.4 (98-107) mmol/L Carbon Dioxide 22 23 (22-30) mmol/L BUN 23 H 19 (9-20) mg/dL Creatinine 1.3 1.1 (0.8-1.5) mg/dL Glucose 321 H 136 H (75-100) mg/dL Calcium 9.5 9.1 (8.4-10.2) mg/dL Assessment and Plan So-operative cardiac assessment Moderate cardiac risk with 2 major risk factors 1. Type II insulin dependent DM 2. Ischemic heart disease Poor physical activity secondary to foot pain CAD s/p CABG MPI 03/2014 - No ischemia Echo 02/2014 - LVEF 45-50% with inferior wall hypokinesis Hyperlipidemia Hypertension PVD with foot gangrene on IV heparin Recommendations: Moderate cardiac risk with a 6.6% risk of major cardiac complications Recommend 12 lead ECG, echo and ischemic evaluation with lexiscan prior to surgery if non-urgent for further risk stratification Asa, plavix, lipitor, IV heparin
--- NOTE | 2017-05-02 11:05 | Event Note ---
Date: 05/02/17 Mr. Ma's vein mapping was performed, and he has satisfactory caliber conduit in his right leg should bypass be required. Since duplex evaluations have been of suboptimal quality, I will order an LLE CTA with runoff to further delineate his anatomy. Review of this imaging will help determine whether or not an open surgical or endovascular approach is optimal for this patient.
--- NOTE | 2017-05-02 12:06 | Progress Note ---
Assessment and Plan Assessment and plan: Peripheral vascular disease with foot gangrene. Continue IV heparin. Continue per Vascular surgery. CAD status post CABG. Patient with MPI March 2014 that revealed no ischemia. Echocardiogram February 2014 revealed left ventricular ejection fraction 45% with inferior wall hypokinesis. Hypertension. Resume antihypertensives medications. Hyperlipidemia. Diabetes mellitus type 2. Tight glycemic control for optimal wound healing. Continue sliding scale and Accu-Cheks. Diabetic neuropathy. Continue Lyrica. DVT prophylaxis. Currently on Lovenox. History Interval history: No new issues overnight. Hospitalist Physical - Constitutional Vitals: Temp Pulse Resp BP Pulse Ox 99.3 F 72 18 124/67 97 05/02/17 10:00 05/02/17 10:02 05/02/17 10:00 05/02/17 10:02 05/01/17 22:00 General appearance: Present: no acute distress - EENT Eyes: Present: PERRL, EOM intact ENT: hearing intact, clear oral mucosa, dentition normal - Neck Neck: Present: supple, normal ROM - Respiratory Respiratory effort: normal Respiratory: bilateral: CTA - Cardiovascular Rhythm: regular Heart Sounds: Present: S1 & S2. Absent: gallop, rub - Extremities Extremities: no ischemia, No edema, Full ROM - Abdominal General gastrointestinal: soft, non-tender, non-distended, normal bowel sounds - Integumentary Integumentary: Present: clear, warm, dry - Neurologic Neurologic: CNII-XII intact, moves all extremities Results - Labs CBC & Chem 7: 05/02/17 03:51 05/02/17 03:51 Labs: Laboratory Last Values WBC 8.3 K/mm3 (4.5-11.0) 05/02/17 03:51 RBC 4.34 M/mm3 (3.65-5.03) 05/02/17 03:51 Hgb 12.9 gm/dl (11.8-15.2) 05/02/17 03:51 Hct 38.6 % (35.5-45.6) 05/02/17 03:51 MCV 89 fl (84-94) 05/02/17 03:51 MCH 30 pg (28-32) 05/02/17 03:51 MCHC 33 % (32-34) 05/02/17 03:51 RDW 12.8 % (13.2-15.2) L 05/02/17 03:51 Plt Count 171 K/mm3 (140-440) 05/02/17 03:51 Lymph % (Auto) 19.2 % (13.4-35.0) 05/02/17 03:51 [place] % (Auto) 12.4 % (0.0-7.3) H 05/02/17 03:51 Eos % (Auto) 0.8 % (0.0-4.3) 05/02/17 03:51 Baso % (Auto) 0.5 % (0.0-1.8) 05/02/17 03:51 Lymph # 1.6 K/mm3 (1.2-5.4) 05/02/17 03:51 [place] # 1.0 K/mm3 (0.0-0.8) H 05/02/17 03:51 Eos # 0.1 K/mm3 (0.0-0.4) 05/02/17 03:51 Baso # 0.0 K/mm3 (0.0-0.1) 05/02/17 03:51 Seg Neutrophils % 67.1 % (40.0-70.0) 05/02/17 03:51 Seg Neutrophils # 5.5 K/mm3 (1.8-7.7) 05/02/17 03:51 PT 14.6 Sec. (12.2-14.9) 05/01/17 14:55 INR 1.15 (0.87-1.13) H 05/01/17 14:55 APTT 37.7 Sec. (24.2-36.6) H 05/01/17 14:55 Heparin Anti-Xa Level 0.36 U.I./ml (0.3-0.7) 05/02/17 09:16 Sodium 139 mmol/L (137-145) 05/02/17 03:51 Potassium 4.4 mmol/L (3.6-5.0) 05/02/17 03:51 Chloride 101.4 mmol/L (98-107) 05/02/17 03:51 Carbon Dioxide 23 mmol/L (22-30) 05/02/17 03:51 Anion Gap 19 mmol/L 05/02/17 03:51 BUN 19 mg/dL (9-20) 05/02/17 03:51 Creatinine 1.1 mg/dL (0.8-1.5) 05/02/17 03:51 Estimated GFR > 60 ml/min 05/02/17 03:51 BUN/Creatinine Ratio 17.27 % 05/02/17 03:51 Glucose 136 mg/dL (75-100) H 05/02/17 03:51 POC Glucose 115 (70-105) H 05/02/17 07:27 Calcium 9.1 mg/dL (8.4-10.2) 05/02/17 03:51
[2017-05-02] MEDS: NACL 0.9% 1000 ML 1,000 ML IV SCH (13:19)
[2017-05-02] MEDS: HEPARIN/ 0.45% NACL-25,000 UNIT/500 ML 25,000 UNIT/500 ML BAG IV SCH (15:12)
[2017-05-02] MEDS ORDERED: NACL ONE (15:27)
[2017-05-02] MEDS: NORCO 5/325 PO PRN ×2 (16:51→23:03)
--- NOTE | 2017-05-02 18:12 | Cat Scan Report ---
FINAL REPORT EXAM: CT ANGIO LOWER EXTREMITY HISTORY: non healing LLE wound TECHNIQUE: Spiral CTA of abdomen and bilateral lower extremities after the uneventful administration of IV contrast. Multiplanar reformations. 3D image post-procesessing was performed on an independent work station. Multiplanar reformations. 100 mL Omnipaque IV. PRIORS: None. FINDINGS: CTA: Normal enhancement of the abdominal aorta, with diffuse calcific atherosclerotic change. No abnormal aneurysmal dilatation, aortic dissection or significant stenosis. Diffuse, calcific atherosclerotic change in the celiac axis, SMA and renal arteries, which are normally opacified. Moderate focal narrowing in the celiac axis origin approximating 50-70% stenosis by NASCET criteria. Approximately 70% or greater stenosis in right renal artery origin. No other significant stenosis. No apparent retroperitoneal hematoma. Right lower extremity: Diffuse, calcific atherosclerotic change in the right common and external iliac, common and superficial femoral, and popliteal arteries, which are opacified. Approximately 70% or greater stenosis in right distal SFA and popliteal fossa. Diffuse disease and intermittent opacification of right tibioperoneal trunk. No aneurysmal dilatation. Diffuse, calcific atherosclerotic change in the right trifurcation vessels, with probable intermittent opacification although difficult to determine due to small size. Peroneal artery appears opacified across the ankle. Left lower extremity: Left total knee arthroplasty and beam hardening artifact limit evaluation somewhat. Diffuse, calcific atherosclerotic change in the left common and external iliac, common and superficial femoral and popliteal arteries. Stent noted in the left distal SFA, which is unopacified and probably occluded, as is left popliteal artery and tibioperoneal trunk. Approximately 70% stenosis or greater in left SFA origin and diffuse disease in proximal 3rd of left SFA. No aneurysmal dilatation. Diffuse, calcific atherosclerotic change in the left trifurcation vessels, with reconstitution of peroneal and posterior tibial arteries in mid calf, which both cross the ankle. Abdomen: No radiopaque gallstones. Visualized liver, spleen and pancreas without significant abnormality. Fatty infiltration noted in the pancreas. 5-6 mm calcification in left renal lower pole. No significant hydronephrosis. Right kidney grossly unremarkable. Adrenal glands are without significant abnormality. Pelvis: Bowel grossly unremarkable. Appendix within normal limits. No significant free peritoneal fluid or apparent adenopathy. Nonspecific prostatic enlargement. Diffuse degenerative change in the lumbar spine. IMPRESSION: 1. Diffuse atherosclerosis in abdominal aorta and splanchnic arteries, as well as bilateral lower extremity arterial systems, as reported above. 2. Significant stenosis in right renal artery origin. Moderate stenosis in celiac axis origin. 3. Apparent stent in left distal SFA, with occlusion of same, as well as occlusion of left popliteal artery and tibioperoneal trunk. Reconstitution in left mid calf, with 2 vessel runoff to left ankle. Extensive inlet disease in left proximal SFA as well. 4. Significant stenosis in right distal SFA and popliteal fossa and extensive disease in right trifurcation vessels, with at least single-vessel runoff to right ankle. 5. Nonobstructing left renal calcification. 6. Nonspecific prostatomegaly.
[2017-05-02] MEDS: LEVEMIR SUB-Q SCH (22:24)
[2017-05-03] MEDS: MORPHINE IV PRN ×3 (03:39→17:27)
[2017-05-03 03:50] LABS: INR 1.1 (0.87-1.13)
[2017-05-03 04:16] LABS: Partial Thromboplastin Time 101.1 Sec. (24.2-36.6)
[2017-05-03 05:57] LABS: Basophils % (Auto) 0.4 % (0.0-1.8); Eosinophils % (Auto) 1.4 % (0.0-4.3); Mean Corpuscular HGB Conc 33 % (32-34); Mean Corpuscular Hemoglobin 30 pg (28-32); Mean Corpuscular Volume 90 fl (84-94); Platelet Count 186 K/mm3 (140-440); Red Blood Count 4.32 M/mm3 (3.65-5.03); Red Cell Distribution Width 12.8 % (13.2-15.2); White Blood Count 8.5 K/mm3 (4.5-11.0)
[2017-05-03 06:22] LABS: Alanine Aminotransferase 15 units/L (7-56); Albumin/Globulin Ratio 0.7 %; Alkaline Phosphatase 55 units/L (35-129); Anion Gap 20 mmol/L; BUN/Creatinine Ratio 15.45; Blood Urea Nitrogen 17 mg/dL (9-20); Carbon Dioxide 23 mmol/L (22-30); Chloride 98.1 mmol/L (98-107); Glucose 116 mg/dL (75-100); Potassium 4.9 mmol/L (3.6-5.0); Sodium 136 mmol/L (137-145); Total Protein 7.1 g/dL (6.3-8.2)
[2017-05-03] MEDS: NOVOLOG SUB-Q SCH ×4 (07:19→22:50)
--- NOTE | 2017-05-03 07:45 | Progress Note ---
Assessment and Plan 1. IDDM: Continue with SSI, Consistent Carbohydrate diet 2. PAD left LE: Mx per vascular surgeon 3. Diabetic Left foot wound : local wound care 4. Diabetic peripheral Neuropathy: Continue with Gabapentin 5. Ischemic cardiomyopathy with EF 40-45% as at 2016 6. Dysipidemia: On statin Subjective Date of service: 05/03/17 Principal diagnosis: PAD, T2DM Interval history: Pt with T2DM, well known to me admitted for left LE angioplastic procedure. DM controlled with SSI. Denies any polyuria, polyphasia or polydipsia Objective - Constitutional Vitals: Vital Signs - 12hr 05/02/17 05/02/17 21:19 22:00 Temperature 98 F Pulse Rate 68 Pulse Rate [ 84 Left] Respiratory 18 Rate Blood Pressure 136/78 [Left] O2 Sat by Pulse 98 Oximetry General appearance: Present: no acute distress, well-nourished - EENT Eyes: PERRL, EOM intact Ears: bilateral: normal - Neck Neck: supple, normal ROM - Respiratory Respiratory: bilateral: CTA - Cardiovascular Rhythm: regular Heart Sounds: Present: S1 & S2. Absent: gallop, rub Extremities: pulses intact, No edema, normal color, Full ROM - Gastrointestinal General gastrointestinal: Present: soft, non-tender, non-distended, normal bowel sounds - Genitourinary Male genitourinary: normal - Integumentary Integumentary: clear, warm, dry - Musculoskeletal Musculoskeletal: 1, strength equal bilaterally - Neurologic Neurologic: moves all extremities - Psychiatric Psychiatric: memory intact, appropriate mood/affect, intact judgment & insight - Labs CBC & Chem 7: 05/03/17 05:14 05/03/17 05:14 Labs: Abnormal lab results 05/02/17 05/02/17 05/02/17 Range/Units 07:27 11:50 20:33 RDW (13.2-15.2) % [place] % (Auto) (0.0-7.3) % [place] # (0.0-0.8) K/mm3 APTT (24.2-36.6) Sec. Heparin Anti-Xa Level 0.24 L (0.3-0.7) U.I./ml Sodium (137-145) mmol/L Glucose (75-100) mg/dL POC Glucose 115 H 165 H (70-105) Hemoglobin A1c (4-6) % Albumin (3.9-5) g/dL 05/02/17 05/03/17 05/03/17 Range/Units 21:56 03:23 05:14 RDW 12.8 L (13.2-15.2) % [place] % (Auto) 14.1 H (0.0-7.3) % [place] # 1.2 H (0.0-0.8) K/mm3 APTT 101.1 H* (24.2-36.6) Sec. Heparin Anti-Xa Level (0.3-0.7) U.I./ml Sodium (137-145) mmol/L Glucose (75-100) mg/dL POC Glucose 248 H (70-105) Hemoglobin A1c (4-6) % Albumin (3.9-5) g/dL 05/03/17 05/03/17 Range/Units 05:14 05:14 RDW (13.2-15.2) % [place] % (Auto) (0.0-7.3) % [place] # (0.0-0.8) K/mm3 APTT (24.2-36.6) Sec. Heparin Anti-Xa Level (0.3-0.7) U.I./ml Sodium 136 L (137-145) mmol/L Glucose 116 H (75-100) mg/dL POC Glucose (70-105) Hemoglobin A1c 10.2 H (4-6) % Albumin 3.0 L (3.9-5) g/dL
[2017-05-03] MEDS ORDERED: LEXISCAN IV ONE (10:03)
--- NOTE | 2017-05-03 10:52 | Event Note ---
Date: 05/03/17 Patient is a private patient of Dr. Badillo. I spoke with Dr. Badillo who will assume the care.
--- NOTE | 2017-05-03 11:32 | Progress Note ---
Assessment and Plan So-operative cardiac assessment Moderate cardiac risk with 2 major risk factors 1. Type II insulin dependent DM 2. Ischemic heart disease Poor physical activity secondary to foot pain CAD s/p CABG MPI 03/2014 - No ischemia Echo 02/2014 - LVEF 45-50% with inferior wall hypokinesis Hyperlipidemia Hypertension PVD with foot gangrene on IV heparin Recommendations: Echo and and thallium stress test today prior to surgery. Subjective Date of service: 05/03/17 Principal diagnosis: PAD, T2DM Interval history: For stress test today. Objective Vital Signs Temp Pulse Pulse Resp BP Pulse Ox 05/03/17 10:00 99.3 F 80 18 147/76 100 05/02/17 22:00 98 F 68 18 136/78 98 05/02/17 21:19 84 - Labs and Meds Cardiac Enzymes 05/03/17 Range/Units 05:14 AST 17 (5-40) units/L Coagulation 05/03/17 Range/Units 03:23 PT 14.1 (12.2-14.9) Sec. INR 1.10 (0.87-1.13) APTT 101.1 H* (24.2-36.6) Sec. CBC 05/03/17 Range/Units 05:14 WBC 8.5 (4.5-11.0) K/mm3 RBC 4.32 (3.65-5.03) M/mm3 Hgb 13.0 (11.8-15.2) gm/dl Hct 39.0 (35.5-45.6) % Plt Count 186 (140-440) K/mm3 Lymph # 1.7 (1.2-5.4) K/mm3 [place] # 1.2 H (0.0-0.8) K/mm3 Eos # 0.1 (0.0-0.4) K/mm3 Baso # 0.0 (0.0-0.1) K/mm3 Comprehensive Metabolic Panel 05/03/17 Range/Units 05:14 Sodium 136 L (137-145) mmol/L Potassium 4.9 (3.6-5.0) mmol/L Chloride 98.1 (98-107) mmol/L Carbon Dioxide 23 (22-30) mmol/L BUN 17 (9-20) mg/dL Creatinine 1.1 (0.8-1.5) mg/dL Glucose 116 H (75-100) mg/dL Calcium 9.0 (8.4-10.2) mg/dL AST 17 (5-40) units/L ALT 15 (7-56) units/L Alkaline Phosphatase 55 (35-129) units/L Total Protein 7.1 (6.3-8.2) g/dL Albumin 3.0 L (3.9-5) g/dL
--- NOTE | 2017-05-03 11:51 | Progress Note ---
Assessment and Plan 76-year-old male with threatened right lower extremity superimposed on right lower extremity critical limb ischemia with open amputation of right second digit. Being worked up by cardiology as part of his preoperative process. Thankfully, patient has good left lower extremity greater saphenous vein. Patient will be scheduled for in situ venous bypass from his common femoral artery to his posterior tibial artery. CT angiogram reviewed. Subjective Date of service: 05/03/17 Principal diagnosis: PAD, T2DM Interval history: Patient continues to have right foot rest pain when he is off pain medication. He continues to move his right foot. He has baseline neuropathy of his right foot. He is currently being scheduled for his thallium stress test, second portion. He is eating crackers. Objective - Constitutional Vitals: Vital Signs - 12hr 05/03/17 10:00 Temperature 99.3 F Pulse Rate 80 Respiratory 18 Rate Blood Pressure 147/76 [Left] O2 Sat by Pulse 100 Oximetry General appearance: Present: no acute distress - EENT Eyes: EOM intact ENT: hearing intact - Respiratory Respiratory effort: normal Extremities: normal temperature, normal color, abnormal (nonpalpable right pedal pulses; cool right forefoot ; motor function intact) - Psychiatric Psychiatric: appropriate mood/affect, cooperative - Labs CBC & Chem 7: 05/03/17 05:14 05/03/17 05:14 Labs: Abnormal lab results 05/02/17 05/02/17 05/02/17 Range/Units 11:50 20:33 21:56 RDW (13.2-15.2) % [place] % (Auto) (0.0-7.3) % [place] # (0.0-0.8) K/mm3 APTT (24.2-36.6) Sec. Heparin Anti-Xa Level 0.24 L (0.3-0.7) U.I./ml Sodium (137-145) mmol/L Glucose (75-100) mg/dL POC Glucose 165 H 248 H (70-105) Hemoglobin A1c (4-6) % Albumin (3.9-5) g/dL 05/03/17 05/03/17 05/03/17 Range/Units 03:23 05:14 05:14 RDW 12.8 L (13.2-15.2) % [place] % (Auto) 14.1 H (0.0-7.3) % [place] # 1.2 H (0.0-0.8) K/mm3 APTT 101.1 H* (24.2-36.6) Sec. Heparin Anti-Xa Level (0.3-0.7) U.I./ml Sodium 136 L (137-145) mmol/L Glucose 116 H (75-100) mg/dL POC Glucose (70-105) Hemoglobin A1c (4-6) % Albumin 3.0 L (3.9-5) g/dL 05/03/17 Range/Units 05:14 RDW (13.2-15.2) % [place] % (Auto) (0.0-7.3) % [place] # (0.0-0.8) K/mm3 APTT (24.2-36.6) Sec. Heparin Anti-Xa Level (0.3-0.7) U.I./ml Sodium (137-145) mmol/L Glucose (75-100) mg/dL POC Glucose (70-105) Hemoglobin A1c 10.2 H (4-6) % Albumin (3.9-5) g/dL
[2017-05-03] MEDS: NORCO 5/325 PO PRN ×2 (12:25→22:25)
[2017-05-03] MEDS: FOLBEE PLUS CZ PO SCH (12:26)
[2017-05-03] MEDS: TOPROL XL PO SCH (12:26)
[2017-05-03] MEDS: PLAVIX PO SCH (12:26)
[2017-05-03] MEDS: ZESTRIL PO SCH (12:26)
[2017-05-03] MEDS: SENOKOT PO SCH ×2 (12:26→22:24)
[2017-05-03] MEDS: COLACE PO SCH ×2 (12:27→22:24)
[2017-05-03] MEDS: LYRICA PO SCH (12:30)
--- NOTE | 2017-05-03 16:43 | Vascular Lab Report ---
Lower extremity vein mapping Reason for exam: Preoperative evaluation for lower extremity bypass conduit. Comments: On the right, the greater saphenous vein is not usable from the ankle to the knee. On the right, the greater saphenous vein is not usable from the knee to the hip. On the left, the greater saphenous vein is usable from the ankle to the knee. On the left, the greater saphenous vein is usable from the knee to the hip. Impression: On the right, the greater saphenous vein is not usable from the ankle to the hip. On the left, the greater saphenous vein is usable from the ankle to the hip. Upper extremity vein mapping Reason for exam: Preoperative evaluation for bypass conduit Comments: On the right, the cephalic vein is not usable from wrist to shoulder. The basilic vein is not usable from wrist to shoulder. On the left, the cephalic vein is not usable from wrist to shoulder. The basilic vein is not usable from wrist to shoulder. Impression: Both cephalic veins are not suitable for use as bypass conduit. Both basilic veins are not suitable for use as bypass conduit.
[2017-05-03] MEDS: NACL 0.9% 1000 ML 1,000 ML IV SCH (17:32)
[2017-05-03] MEDS: LEVEMIR SUB-Q SCH (22:00)
--- NOTE | 2017-05-03 23:04 | Treadmill Report ---
INDICATION FOR THE PROCEDURE: Preoperative cardiac clearance. FINDINGS: There is evidence of a large predominantly fixed inferior, inferolateral wall defect consistent with the prior infarction. There is no scintigraphic evidence of myocardial ischemia. The left ventricle is normal in size. The left ventricular ejection fraction is measured at 46%. There is hypokinesis of the inferior, inferolateral wall. CONCLUSION: 1. There is no scintigraphic evidence of myocardial ischemia. 2. Large fixed inferior, inferolateral wall defect consistent with the prior infarction. 3. Left ventricular ejection fraction measured at 46% with hypokinesis of the inferior, inferolateral wall. JOB# [id number] ROSENDO/SIENNA
[2017-05-04] MEDS: MORPHINE IV PRN ×3 (02:51→23:28)
[2017-05-04] MEDS: NORCO 5/325 PO PRN ×3 (05:07→18:02)
[2017-05-04] MEDS: HEPARIN/ 0.45% NACL-25,000 UNIT/500 ML 25,000 UNIT/500 ML BAG IV SCH ×2 (05:14→19:58)
[2017-05-04 05:20] LABS: Hematocrit 38.5 % (35.5-45.6); Hemoglobin 12.9 gm/dl (11.8-15.2); Mean Corpuscular HGB Conc 33 % (32-34); Mean Corpuscular Hemoglobin 30 pg (28-32); Mean Corpuscular Volume 89 fl (84-94); Platelet Count 182 K/mm3 (140-440); Red Blood Count 4.35 M/mm3 (3.65-5.03); Red Cell Distribution Width 12.9 % (13.2-15.2); White Blood Count 9.4 K/mm3 (4.5-11.0)
[2017-05-04 05:22] LABS: Alanine Aminotransferase 16 units/L (7-56); Albumin/Globulin Ratio 0.8 %; Alkaline Phosphatase 56 units/L (35-129); Anion Gap 20 mmol/L; BUN/Creatinine Ratio 19.09; Blood Urea Nitrogen 21 mg/dL (9-20); Calcium 9.1 mg/dL (8.4-10.2); Carbon Dioxide 23 mmol/L (22-30); Chloride 96.2 mmol/L (98-107); Glucose 251 mg/dL (75-100); Potassium 5.2 mmol/L (3.6-5.0); Sodium 134 mmol/L (137-145)
[2017-05-04 06:33] LABS: Anisocytosis 1+; Basophils % (Manual) 0 % (0.0-1.8); Blastocytes % (Manual) 0 %; Eosinophils % (Manual) 0 % (0.0-4.3)
[2017-05-04 06:34] LABS: Diff Status Complete; Hypersegmented Neutrophils Few
[2017-05-04] MEDS: NOVOLOG SUB-Q SCH ×4 (09:02→23:30)
--- NOTE | 2017-05-04 09:19 | Progress Note ---
Assessment and Plan So-operative cardiac assessment Moderate cardiac risk with 2 major risk factors 1. Type II insulin dependent DM 2. Ischemic heart disease Poor physical activity secondary to foot pain CAD s/p CABG MPI 03/2014 - No ischemia Echo 02/2014 - LVEF 45-50% with inferior wall hypokinesis Hyperlipidemia Hypertension PVD with foot gangrene on IV heparin/Fever This admission: Nuclear stress test showing no ischemia, fixed inferior and inferolateral wall defect consistent with prior ND, LVEF 46% Echo showing LVEF 40-45% with inferior wall hypokinesis and mild aortic stenosis Recommendations: Moderate cardiac risk with a 6.6% risk of major cardiac complications May proceed with revascularization procedure cardiac cervantes Subjective Date of service: 05/04/17 Principal diagnosis: PAD, T2DM Interval history: Patient denies chest pain or shortness of breath, no events on tele Objective Vital Signs Temp Pulse Resp BP BP Pulse Ox 05/03/17 22:00 101.3 F H 86 20 99/57 05/03/17 10:08 81 72/50 05/03/17 10:07 80 85/46 05/03/17 10:06 80 94/52 05/03/17 10:05 81 149/50 05/03/17 10:04 77 134/90 05/03/17 10:02 72 148/75 05/03/17 10:00 99.3 F 80 18 147/76 100 - Physical Examination HEENT: Positive: PERRL Neck: Positive: neck supple Cardiac: Positive: Reg Rate and Rhythm Lungs: Positive: Normal Exam Neuro: Positive: Grossly Intact Abdomen: Positive: Soft Extremities: Absent: edema - Labs and Meds Cardiac Enzymes 05/04/17 Range/Units 04:02 AST 21 (5-40) units/L CBC 05/04/17 Range/Units 04:02 WBC 9.4 (4.5-11.0) K/mm3 RBC 4.35 (3.65-5.03) M/mm3 Hgb 12.9 (11.8-15.2) gm/dl Hct 38.5 (35.5-45.6) % Plt Count 182 (140-440) K/mm3 Comprehensive Metabolic Panel 05/04/17 Range/Units 04:02 Sodium 134 L (137-145) mmol/L Potassium 5.2 H (3.6-5.0) mmol/L Chloride 96.2 L (98-107) mmol/L Carbon Dioxide 23 (22-30) mmol/L BUN 21 H (9-20) mg/dL Creatinine 1.1 (0.8-1.5) mg/dL Glucose 251 H (75-100) mg/dL Calcium 9.1 (8.4-10.2) mg/dL AST 21 (5-40) units/L ALT 16 (7-56) units/L Alkaline Phosphatase 56 (35-129) units/L Total Protein 7.0 (6.3-8.2) g/dL Albumin 3.0 L (3.9-5) g/dL
[2017-05-04] MEDS: LYRICA PO SCH (10:49)
[2017-05-04] MEDS: ZESTRIL PO SCH (10:50)
[2017-05-04] MEDS: SENOKOT PO SCH ×2 (10:50→23:29)
[2017-05-04] MEDS: TOPROL XL PO SCH (10:51)
[2017-05-04] MEDS: PLAVIX PO SCH (10:51)
[2017-05-04] MEDS: COLACE PO SCH ×2 (10:51→23:29)
[2017-05-04] MEDS: FOLBEE PLUS CZ PO SCH (10:54)
--- NOTE | 2017-05-04 15:00 | Progress Note ---
Assessment and Plan - IDDM: Continue with SSI, Consistent Carbohydrate diet - Hyperkalemia- will recheck K level. Con - PAD left LE: Mx per vascular surgeon - Diabetic Left foot wound : local wound care - Diabetic peripheral Neuropathy: Continue with Gabapentin - Ischemic cardiomyopathy with EF 40-45% as at 2016 - Dysipidemia: On statin Subjective Date of service: 05/04/17 Principal diagnosis: PAD, T2DM Interval history: Pt with T2DM, left LE angioplastic procedure. DM controlled with SSI. Denies any polyuria, polyphasia or polydipsia Objective - Constitutional Vitals: Vital Signs - 12hr 05/04/17 05/04/17 05/04/17 10:00 10:50 10:51 Temperature 98.2 F Pulse Rate 60 60 60 Pulse Rate [ 60 Left] Respiratory 18 Rate Blood Pressure 135/66 135/66 Blood Pressure 135/66 [Left] General appearance: Present: no acute distress, well-nourished - EENT Eyes: PERRL, EOM intact Ears: bilateral: normal - Neck Neck: supple, normal ROM - Respiratory Respiratory effort: normal Respiratory: bilateral: CTA - Cardiovascular Rhythm: regular Heart Sounds: Present: S1 & S2. Absent: gallop, rub Extremities: pulses intact, No edema, normal color, Full ROM - Gastrointestinal General gastrointestinal: Present: soft, non-tender, non-distended, normal bowel sounds - Integumentary Integumentary: clear, warm, dry - Musculoskeletal Musculoskeletal: 1, strength equal bilaterally - Neurologic Neurologic: moves all extremities - Psychiatric Psychiatric: memory intact, appropriate mood/affect, intact judgment & insight - Labs CBC & Chem 7: 05/04/17 04:02 05/04/17 04:02 Labs: Abnormal lab results 05/03/17 05/03/17 05/04/17 Range/Units 18:50 22: 04:02 RDW 12.9 L (13.2-15.2) % Lymphocytes % (Manual) 13.0 L (13.4-35.0) % Monocytes % (Manual) 9.0 H (0.0-7.3) % Sodium (137-145) mmol/L Potassium (3.6-5.0) mmol/L Chloride (98-107) mmol/L BUN (9-20) mg/dL Glucose (75-100) mg/dL POC Glucose 314 H 312 H (70-105) Albumin (3.9-5) g/dL 05/04/17 05/04/17 05/04/17 Range/Units 04:02 07:49 11:54 RDW (13.2-15.2) % Lymphocytes % (Manual) (13.4-35.0) % Monocytes % (Manual) (0.0-7.3) % Sodium 134 L (137-145) mmol/L Potassium 5.2 H (3.6-5.0) mmol/L Chloride 96.2 L (98-107) mmol/L BUN 21 H (9-20) mg/dL Glucose 251 H (75-100) mg/dL POC Glucose 177 H 186 H (70-105) Albumin 3.0 L (3.9-5) g/dL
--- NOTE | 2017-05-04 17:29 | Progress Note ---
Assessment and Plan Pt cleared for vascular surgery, by cardiology. Pt on the schedule for distal bypass on Sunday. - Patient Problems (1) Atherosclerosis of [place] arteries of the extremities with ulceration Onset Date: 08/22/16 Current Visit: No Status: Acute (2) Ischemia of left lower extremity Current Visit: Yes Status: Acute Subjective Date of service: 05/04/17 Principal diagnosis: PAD, T2DM Interval history: Pt awake and alert without new complaint. Objective - Constitutional Vitals: Vital Signs - 12hr 05/04/17 05/04/17 05/04/17 10:00 10:50 10:51 Temperature 98.2 F Pulse Rate 60 60 60 Pulse Rate [ 60 Left] Respiratory 18 Rate Blood Pressure 135/66 135/66 Blood Pressure 135/66 [Left] General appearance: Present: no acute distress - EENT Eyes: EOM intact ENT: hearing intact - Respiratory Respiratory effort: normal Extremities: normal temperature, abnormal (RLE wounds bandaged) - Psychiatric Psychiatric: appropriate mood/affect, intact judgment & insight, cooperative - Labs CBC & Chem 7: 05/04/17 04:02 05/04/17 04:02 Labs: Abnormal lab results 05/03/17 05/03/17 05/04/17 Range/Units 18:50 22:17 04:02 RDW 12.9 L (13.2-15.2) % Lymphocytes % (Manual) 13.0 L (13.4-35.0) % Monocytes % (Manual) 9.0 H (0.0-7.3) % Sodium (137-145) mmol/L Potassium (3.6-5.0) mmol/L Chloride (98-107) mmol/L BUN (9-20) mg/dL Glucose (75-100) mg/dL POC Glucose 314 H 312 H (70-105) Albumin (3.9-5) g/dL 05/04/17 05/04/17 05/04/17 Range/Units 04:02 07:49 11:54 RDW (13.2-15.2) % Lymphocytes % (Manual) (13.4-35.0) % Monocytes % (Manual) (0.0-7.3) % Sodium 134 L (137-145) mmol/L Potassium 5.2 H (3.6-5.0) mmol/L Chloride 96.2 L (98-107) mmol/L BUN 21 H (9-20) mg/dL Glucose 251 H (75-100) mg/dL POC Glucose 177 H 186 H (70-105) Albumin 3.0 L (3.9-5) g/dL
[2017-05-04] MEDS: LEVEMIR SUB-Q SCH (23:27)
[2017-05-05] MEDS: NORCO 5/325 PO PRN ×3 (02:33→16:02)
[2017-05-05 05:45] LABS: Hemoglobin 12.2 gm/dl (11.8-15.2)
[2017-05-05 05:57] LABS: Alanine Aminotransferase 24 units/L (7-56); Albumin 2.9 g/dL (3.9-5); Albumin/Globulin Ratio 0.8 %; Alkaline Phosphatase 50 units/L (35-129); Anion Gap 18 mmol/L; BUN/Creatinine Ratio 15.45; Blood Urea Nitrogen 17 mg/dL (9-20); Calcium 8.9 mg/dL (8.4-10.2); Carbon Dioxide 23 mmol/L (22-30); Chloride 98.5 mmol/L (98-107); Glucose 179 mg/dL (75-100); Potassium 4.4 mmol/L (3.6-5.0); Sodium 135 mmol/L (137-145); Total Protein 6.6 g/dL (6.3-8.2)
[2017-05-05] MEDS: NOVOLOG SUB-Q SCH ×4 (08:00→22:12)
--- NOTE | 2017-05-05 12:13 | Progress Note ---
Assessment and Plan 1. Peripheral vascular disease with right foot gangrene 2. Coronary artery disease status post CABG nuclear tests showing no ischemia. Echo showing inferior wall hypokinesis and LV ejection fraction 40-45%. 3. Essential hypertension 4. Type 2 diabetes mellitus 5. Hyperlipidemia Plan. Cardiac-cervantes stable continue present management patient scheduled for surgery early next week Subjective Date of service: 05/05/17 Principal diagnosis: PAD, T2DM Interval history: No cardiac symptoms Objective Vital Signs Temp Pulse Pulse Resp BP 05/05/17 09:28 99.1 F 58 L 18 133/64 05/04/17 22:00 97.8 F 70 67 20 144/70 05/04/17 21:00 97.8 F 66 18 144/62 - Physical Examination General: Appears Well, No Apparent Distress HEENT: Positive: PERRL Neck: Positive: neck supple, trachea midline. Negative: JVD/HJR Cardiac: Positive: Regular Rate, S1/S2. Negative: S3 Lungs: Positive: clear to auscultation Neuro: Positive: Grossly Intact Abdomen: Positive: Soft Extremities: Present: Ulceration Noted, Other (left foot in bandage). Absent: edema - Labs and Meds Cardiac Enzymes 05/05/17 Range/Units 05:09 AST 31 (5-40) units/L CBC 05/05/17 Range/Units 05:09 Hgb 12.2 (11.8-15.2) gm/dl Hct 36.0 (35.5-45.6) % Plt Count 192 (140-440) K/mm3 Comprehensive Metabolic Panel 05/05/17 Range/Units 05:09 Sodium 135 L (137-145) mmol/L Potassium 4.4 (3.6-5.0) mmol/L Chloride 98.5 (98-107) mmol/L Carbon Dioxide 23 (22-30) mmol/L BUN 17 (9-20) mg/dL Creatinine 1.1 (0.8-1.5) mg/dL Glucose 179 H (75-100) mg/dL Calcium 8.9 (8.4-10.2) mg/dL AST 31 (5-40) units/L ALT 24 (7-56) units/L Alkaline Phosphatase 50 (35-129) units/L Total Protein 6.6 (6.3-8.2) g/dL Albumin 2.9 L (3.9-5) g/dL
[2017-05-05] MEDS: SENOKOT PO SCH ×2 (12:21→21:58)
[2017-05-05] MEDS: FOLBEE PLUS CZ PO SCH (12:21)
[2017-05-05] MEDS: ZESTRIL PO SCH (12:21)
[2017-05-05] MEDS: PLAVIX PO SCH (12:21)
[2017-05-05] MEDS: COLACE PO SCH ×2 (12:21→21:58)
[2017-05-05] MEDS: TOPROL XL PO SCH (12:22)
[2017-05-05] MEDS: MORPHINE IV PRN ×2 (12:23→18:58)
--- NOTE | 2017-05-05 12:25 | Progress Note ---
Assessment and Plan 76-year-old male with threatened left lower extremity superimposed on left lower extremity critical limb ischemia with open amputation of right second digit. Discussed dietary issues with his nurse. Thallium test negative. Moderate cardiac risk, but no reversible factors. Set up for in situ venous bypass from his common femoral artery to his posterior tibial artery on sunday for threatened left limb. Subjective Date of service: 05/05/17 Principal diagnosis: PAD, T2DM Interval history: Patient continues to have left foot rest pain when he is off pain medication. He continues to move his left foot. He has baseline neuropathy of his left foot. Was provided juice despite a diabetic diet. Objective - Constitutional Vitals: Vital Signs - 12hr 05/05/17 09:28 Temperature 99.1 F Pulse Rate [ 58 L Left] Respiratory 18 Rate Blood Pressure 133/64 [Left Arm] General appearance: Present: no acute distress - EENT Eyes: EOM intact ENT: hearing intact - Respiratory Respiratory effort: normal Extremities: normal temperature, normal color, abnormal (left forefoot cool) - Psychiatric Psychiatric: appropriate mood/affect, cooperative - Labs CBC & Chem 7: 05/05/17 05:09 05/05/17 05:09 Labs: Abnormal lab results 05/04/17 05/04/17 05/05/17 Range/Units 17:46 22:51 05:09 Heparin Anti-Xa Level (0.3-0.7) U.I./ml Sodium 135 L (137-145) mmol/L Glucose 179 H (75-100) mg/dL POC Glucose 244 H 265 H (70-105) Albumin 2.9 L (3.9-5) g/dL 05/05/17 05/05/17 05/05/17 Range/Units 05:09 07:39 11:53 Heparin Anti-Xa Level 0.15 L (0.3-0.7) U.I./ml Sodium (137-145) mmol/L Glucose (75-100) mg/dL POC Glucose 153 H 171 H (70-105) Albumin (3.9-5) g/dL
[2017-05-05] MEDS: LYRICA PO SCH ×3 (12:29)
[2017-05-05] MEDS: HEPARIN/ 0.45% NACL-25,000 UNIT/500 ML 25,000 UNIT/500 ML BAG IV SCH (14:02)
--- NOTE | 2017-05-05 19:10 | Progress Note ---
Assessment and Plan - IDDM: optimize control with increased levamir dose and continue with SSI, Consistent Carbohydrate diet - Hyperkalemia- corrected - PAD left LE: Mx per vascular surgeon - Diabetic Left gangrene : for revascularization and local wound care - Diabetic peripheral Neuropathy: Continue with Gabapentin - Ischemic cardiomyopathy with EF 40-45% as at 2016 - Dysipidemia: On statin Subjective Date of service: 05/05/17 Principal diagnosis: PAD, T2DM Interval history: Pt with T2DM, for left LE angioplastic procedure. DM controlled with SSI. Denies any polyuria, polyphasia or polydipsia Objective - Constitutional Vitals: Vital Signs - 12hr 05/05/17 05/05/17 05/05/17 09:28 10:00 12:21 Temperature 99.1 F Pulse Rate 82 58 L Pulse Rate [ 58 L Left] Respiratory 18 Rate Blood Pressure 133/64 Blood Pressure 133/64 [Left Arm] 05/05/17 12:22 Temperature Pulse Rate 58 L Pulse Rate [ Left] Respiratory Rate Blood Pressure 133/64 Blood Pressure [Left Arm] General appearance: Present: no acute distress, well-nourished - EENT Eyes: PERRL, EOM intact Ears: bilateral: normal - Neck Neck: supple, normal ROM - Respiratory Respiratory effort: normal Respiratory: bilateral: CTA - Breasts Breasts: normal - Cardiovascular Rhythm: regular Heart Sounds: Present: S1 & S2. Absent: gallop, rub Extremities: pulses intact, No edema, normal color, Full ROM - Gastrointestinal General gastrointestinal: Present: soft, non-tender, non-distended, normal bowel sounds - Integumentary Integumentary: clear, warm, dry - Musculoskeletal Musculoskeletal: 1, strength equal bilaterally - Neurologic Neurologic: moves all extremities - Psychiatric Psychiatric: memory intact, appropriate mood/affect, intact judgment & insight - Labs CBC & Chem 7: 05/05/17 05:09 05/05/17 05:09 Labs: Abnormal lab results 05/04/17 05/05/17 05/05/17 Range/Units 22:51 05:09 05:09 Heparin Anti-Xa Level 0.15 L (0.3-0.7) U.I./ml Sodium 135 L (137-145) mmol/L Glucose 179 H (75-100) mg/dL POC Glucose 265 H (70-105) Albumin 2.9 L (3.9-5) g/dL 05/05/17 05/05/17 05/05/17 Range/Units 07:39 11:24 11:53 Heparin Anti-Xa Level 0.29 L (0.3-0.7) U.I./ml Sodium (137-145) mmol/L Glucose (75-100) mg/dL POC Glucose 153 H 171 H (70-105) Albumin (3.9-5) g/dL 05/05/17 Range/Units 16:33 Heparin Anti-Xa Level (0.3-0.7) U.I./ml Sodium (137-145) mmol/L Glucose (75-100) mg/dL POC Glucose 317 H (70-105) Albumin (3.9-5) g/dL
[2017-05-05] MEDS: TYLENOL PO PRN (21:58)
[2017-05-05] MEDS: LEVEMIR SUB-Q SCH (22:19)
[2017-05-06] MEDS: HEPARIN/ 0.45% NACL-25,000 UNIT/500 ML 25,000 UNIT/500 ML BAG IV SCH (04:52)
[2017-05-06] MEDS: NOVOLOG SUB-Q SCH ×4 (08:12→21:41)
[2017-05-06] MEDS: FOLBEE PLUS CZ PO SCH (09:18)
[2017-05-06] MEDS: ZESTRIL PO SCH (09:18)
[2017-05-06] MEDS: COLACE PO SCH ×2 (09:18→21:33)
[2017-05-06] MEDS: SENOKOT PO SCH ×2 (09:18→21:33)
[2017-05-06] MEDS: LYRICA PO SCH ×3 (09:19→10:44)
[2017-05-06] MEDS: TOPROL XL PO SCH (09:19)
[2017-05-06] MEDS: PLAVIX PO SCH (09:19)
[2017-05-06] MEDS: NORCO 5/325 PO PRN ×2 (09:20→18:28)
--- NOTE | 2017-05-06 11:17 | Progress Note ---
Assessment and Plan 1. Peripheral vascular disease with right foot gangrene 2. Coronary artery disease status post CABG nuclear tests showing no ischemia. Echo showing inferior wall hypokinesis and LV ejection fraction 40-45%. 3. Essential hypertension 4. Type 2 diabetes mellitus 5. Hyperlipidemia Plan. Cardiac-cervantes stable continue present management patient scheduled for surgery early next week Subjective Date of service: 05/06/17 Principal diagnosis: PAD, T2DM Interval history: No cardiac symptoms Objective Vital Signs Temp Pulse Pulse Pulse Resp BP BP 05/06/17 10:00 99.0 F 74 74 18 144/70 05/06/17 09:19 74 144/70 05/06/17 09:18 74 140/70 05/06/17 02:32 99.3 F 82 82 18 118/59 05/05/17 22:00 70 82 18 05/05/17 19:00 100.3 F H 82 18 118/59 05/05/17 12:22 58 L 133/64 05/05/17 12:21 58 L 133/64 Pulse Ox 05/06/17 10:00 05/06/17 09:19 05/06/17 09:18 05/06/17 02:32 05/05/17 22:00 05/05/17 19:00 94 05/05/17 12:22 05/05/17 12:21 - Physical Examination General: Appears Well, No Apparent Distress HEENT: Positive: PERRL Neck: Positive: neck supple, trachea midline. Negative: JVD/HJR Cardiac: Positive: Regular Rate, S1/S2, PMI, Laterally Displaced. Negative: S3 Lungs: Positive: clear to auscultation, No Wheeze, Rales, Rhonchi Neuro: Positive: Grossly Intact Abdomen: Positive: Soft Extremities: Present: Ulceration Noted, Other (left foot in bandage see vascular surgeons note). Absent: edema - Telemetry EKG Rhythm: Sinus Rhythm
--- NOTE | 2017-05-06 12:09 | Progress Note ---
Assessment and Plan - IDDM: optimize control with increased levamir dose and continue with SSI, Consistent Carbohydrate diet - Hyperkalemia- corrected - PAD left LE: Mx per vascular surgeon - Diabetic Left gangrene : for revascularization and local wound care - Diabetic peripheral Neuropathy: Continue with Gabapentin - Ischemic cardiomyopathy with EF 40-45% as at 2016 - Dysipidemia: On statin DVT and GI PPx Subjective Date of service: 05/06/17 Principal diagnosis: PAD, T2DM Interval history: Pt with T2DM, for left LE angioplastic procedure. No new complaint Objective - Constitutional Vitals: Vital Signs - 12hr 05/06/17 05/06/17 05/06/17 02:32 09:18 09:19 Temperature 99.3 F Pulse Rate 74 74 Pulse Rate [ 82 From Monitor] Pulse Rate [ 82 Left] Respiratory 18 Rate Blood Pressure 140/70 144/70 Blood Pressure 118/59 [Left Arm] 05/06/17 10:00 Temperature 99.0 F Pulse Rate Pulse Rate [ 74 From Monitor] Pulse Rate [ 74 Left] Respiratory 18 Rate Blood Pressure Blood Pressure 144/70 [Left Arm] General appearance: Present: no acute distress, well-nourished - EENT Eyes: PERRL, EOM intact - Neck Neck: supple, normal ROM - Respiratory Respiratory effort: normal Respiratory: bilateral: CTA - Cardiovascular Rhythm: regular Heart Sounds: Present: S1 & S2. Absent: gallop, rub Extremities: pulses intact, No edema, normal color, Full ROM - Gastrointestinal General gastrointestinal: Present: soft, non-tender, non-distended, normal bowel sounds - Integumentary Integumentary: clear, warm, dry - Musculoskeletal Musculoskeletal: 1, strength equal bilaterally - Neurologic Neurologic: moves all extremities - Psychiatric Psychiatric: memory intact, appropriate mood/affect, intact judgment & insight - Labs CBC & Chem 7: 05/05/17 05:09 05/05/17 05:09 Labs: Abnormal lab results 05/05/17 05/05/17 05/05/17 Range/Units 07:39 11:24 11:53 Heparin Anti-Xa Level 0.29 L (0.3-0.7) U.I./ml POC Glucose 153 H 171 H (70-105) 05/05/17 05/05/17 05/06/17 Range/Units 16:33 22:05 07:32 Heparin Anti-Xa Level (0.3-0.7) U.I./ml POC Glucose 317 H 313 H 176 H (70-105)
[2017-05-06] MEDS: PEPCID IV SCH (12:33)
[2017-05-06] MEDS: MORPHINE IV PRN ×2 (12:33→21:32)
--- NOTE | 2017-05-06 15:07 | XRay Report ---
FINAL REPORT PROCEDURE: XR CHEST 1V AP TECHNIQUE: Chest radiograph anteroposterior view. CPT 68191 HISTORY: fever COMPARISON: CT angio chest 07/14/2016 FINDINGS: Prior CABG is noted. The heart is normal in size. The lungs are clear. There is no evident pneumothorax or pleural fluid. The thoracic cage is intact. IMPRESSION: No radiographically evident acute cardiopulmonary disease.
--- NOTE | 2017-05-06 15:17 | Progress Note ---
Assessment and Plan 76-year-old male with threatened left lower extremity superimposed on left lower extremity critical limb ischemia with open amputation of right second digit. Thallium test negative. Moderate cardiac risk, but no reversible factors. Having low-grade fever. No dysuria. No cough. Has been laying in bed due to difficulty walking with left sided rest pain. Suspect patient has some atelectasis. Chest x-ray performed demonstrating no pneumonia. Provided incentive spirometer. Set up for in situ venous bypass from his common femoral artery to his posterior tibial artery on sunday for threatened left limb. Subjective Date of service: 05/06/17 Principal diagnosis: PAD, T2DM Interval history: Patient continues to have left foot rest pain when he is off pain medication. He continues to move his left foot. He has baseline neuropathy of his left foot. Had fever overnight. Denies dysuria. Denies cough. Objective - Constitutional Vitals: Vital Signs - 12hr 05/06/17 05/06/17 05/06/17 09:18 09:19 10:00 Temperature 99.0 F Pulse Rate 74 74 Pulse Rate [ 74 From Monitor] Pulse Rate [ 74 Left] Respiratory 18 Rate Blood Pressure 140/70 144/70 Blood Pressure 144/70 [Left Arm] General appearance: Present: no acute distress - EENT Eyes: EOM intact ENT: hearing intact - Respiratory Respiratory effort: normal Extremities: abnormal (see subjective ; unchanged) - Psychiatric Psychiatric: appropriate mood/affect, cooperative - Labs CBC & Chem 7: 05/05/17 05:09 05/05/17 05:09 Labs: Abnormal lab results 05/05/17 05/05/17 05/06/17 Range/Units 16:33 22:05 07:32 POC Glucose 317 H 313 H 176 H (70-105) 05/06/17 Range/Units 11:47 POC Glucose 210 H (70-105) - Imaging and cardiology Chest x-ray: report reviewed, image reviewed
[2017-05-06] MEDS: LEVEMIR SUB-Q SCH (21:40)
[2017-05-07] MEDS: NORCO 5/325 PO PRN (00:34)
[2017-05-07 04:42] LABS: Hematocrit 37.5 % (35.5-45.6); Hemoglobin 12.7 gm/dl (11.8-15.2)
[2017-05-07] MEDS: MORPHINE IV PRN (06:12)
[2017-05-07] MEDS: HEPARIN/ 0.45% NACL-25,000 UNIT/500 ML 25,000 UNIT/500 ML BAG IV SCH (06:53)
--- NOTE | 2017-05-07 07:36 | Vascular Lab Report ---
Left Lower extremity vein mapping Reason for exam: Preoperative evaluation for lower extremity bypass conduit. Comments: On the left, the greater saphenous vein is usable from the ankle to the knee. On the left, the greater saphenous vein is marginal from the knee to the hip. Impression: On the left, the greater saphenous vein is usable from the knee to the hip. It is marginal below the knee. Clinical correlation recommended.
--- NOTE | 2017-05-07 08:43 | Progress Note ---
Assessment and Plan - PAD - for surgery Femoral Post tibial bypass of the right leg today. Noraml stress, CXR, h/h and fialure glycemic control. - IDDM: optimize control with increased levamir dose and continue with SSI, Consistent Carbohydrate diet - Hyperkalemia- corrected - Diabetic Left gangrene : for revascularization and local wound care - Diabetic peripheral Neuropathy: Continue with Gabapentin - Ischemic cardiomyopathy with EF 40-45% as at 2016 - Dysipidemia: On statin DVT and GI PPx Subjective Date of service: 05/07/17 Principal diagnosis: PAD, T2DM Interval history: Pt with T2DM, for left LE angioplastic procedure. No new complaint Objective - Constitutional Vitals: Vital Signs - 12hr 05/06/17 22:00 Temperature 99.8 F H Pulse Rate 80 Pulse Rate [ 82 From Monitor] Respiratory 18 Rate Blood Pressure 120/59 [Left Arm] O2 Sat by Pulse 100 Oximetry General appearance: Present: no acute distress, well-nourished - EENT Eyes: PERRL, EOM intact - Neck Neck: supple, normal ROM - Respiratory Respiratory effort: normal Respiratory: bilateral: CTA - Cardiovascular Rhythm: regular Heart Sounds: Present: S1 & S2. Absent: gallop, rub Extremities: pulses intact, No edema, normal color, Full ROM - Gastrointestinal General gastrointestinal: Present: soft, non-tender, non-distended, normal bowel sounds - Integumentary Integumentary: clear, warm, dry - Musculoskeletal Musculoskeletal: 1, strength equal bilaterally - Neurologic Neurologic: moves all extremities - Psychiatric Psychiatric: memory intact, appropriate mood/affect, intact judgment & insight - Labs CBC & Chem 7: 05/07/17 03:56 05/05/17 05:09 Labs: Abnormal lab results 05/06/17 05/06/17 05/06/17 Range/Units 11:47 16:28 21:33 Heparin Anti-Xa Level (0.3-0.7) U.I./ml POC Glucose 210 H 283 H 264 H (70-105) 05/07/17 05/07/17 Range/Units 03:56 07:11 Heparin Anti-Xa Level 0.10 L (0.3-0.7) U.I./ml POC Glucose 276 H (70-105)
[2017-05-07] MEDS: NOVOLOG SUB-Q SCH ×3 (08:56→16:40)
[2017-05-07] MEDS ORDERED: PEPCID PO NR (10:00)
[2017-05-07] MEDS: FOLBEE PLUS CZ PO SCH (10:28)
[2017-05-07] MEDS: COLACE PO SCH ×2 (10:28→23:02)
[2017-05-07] MEDS: LYRICA PO SCH ×3 (10:29)
[2017-05-07] MEDS: TOPROL XL PO SCH ×2 (10:30→12:18)
[2017-05-07] MEDS: ZESTRIL PO SCH (10:30)
[2017-05-07] MEDS: PLAVIX PO SCH (10:30)
[2017-05-07] MEDS: SENOKOT PO SCH ×2 (10:30→23:01)
[2017-05-07] MEDS: PEPCID IV SCH (10:44)
[2017-05-07] MEDS ORDERED: SUBLIMAZE ONE (11:28)
[2017-05-07] MEDS ORDERED: DIPRIVAN 10 MG/ML IV ONE (11:28)
[2017-05-07] MEDS ORDERED: XYLOCAINE MPF 2% ONE (11:29)
[2017-05-07] MEDS ORDERED: NACL 0.9% 100 ML ONE (11:29)
[2017-05-07] MEDS ORDERED: NEO SYNEPHRINE ONE (11:29)
[2017-05-07] MEDS ORDERED: ROBINUL ONE (11:30)
[2017-05-07] MEDS ORDERED: NACL BACTERIOSTATIC INFILTRATI ONE (11:37)
[2017-05-07] MEDS: NACL 0.9% 1000 ML 1,000 ML IV SCH (12:03)
--- NOTE | 2017-05-07 12:29 | Anesthesia Day of Surgery ---
Anesthesia Day of Surgery - Day of Surgery Patient Examined: Yes Patient H&P Reviewed: Yes Patient is NPO: Yes Beta Blockers: Yes Cardiac Clearance: Yes
--- NOTE | 2017-05-07 12:31 | Anesthesia Consultation ---
Anesthesia Consult and Med Hx Date of service: 05/07/17 - Airway Anesthetic Teeth Evaluation: Dentures ROM Head & Neck: Adequate Mental/Hyoid Distance: Adequate Mallampati Class: Class II Intubation Access Assessment: Probably Good - Pulmonary Exam CTA: Yes - Cardiac Exam Cardiac Exam: RRR - Pre-Operative Health Status ASA Pre-Surgery Classification: ASA3 Proposed Anesthetic Plan: General - Pulmonary Hx Smoking: Yes (STOPPED 1984 , 1/2 PPD X 25 YRS) Hx Sleep Apnea: No (LOREN PRE SCREEN HIGH RISK) - Cardiovascular System Hx Hypertension: Yes (EF 40-45%) Hx Coronary Artery Disease: Yes (CABG 2005 x 3v) Hx Percutaneous Transluminal Coronary Angioplasty (PTCA): Yes (stents 2002) Hx Cardia Arrhythmia: No Hx Peripheral Vascular Disease: Yes (arterial and DVT (2016)) - Central Nervous System Hx Neuromuscular Disorder: Yes (bilateral LE neuropathy) Hx Psychiatric Problems: No - Endocrine Hx Renal Disease: No (stones) Hx Insulin Dependent Diabetes: Yes Hx Thyroid Disease: No - Hematic Hx Anemia: No - Other Systems Hx Cancer: No Hx Obesity: No - Additional Comments Anesthesia Medical History Comments: "difficult to put to sleep"
[2017-05-07] MEDS ORDERED: DILAUDID IV PRN ×2 (12:32→21:01)
[2017-05-07] MEDS ORDERED: MARCAINE 0.5% 30 ML INFILTRATI ONE (13:10)
[2017-05-07] MEDS ORDERED: PAPAVERINE ONE (13:10)
[2017-05-07] MEDS ORDERED: HEPARIN 10,000 UNITS/10 ML ONE ×2 (13:10→14:19)
[2017-05-07] MEDS ORDERED: NACL ONE (13:10)
[2017-05-07] MEDS ORDERED: PROTAMINE SULFATE ONE (13:10)
[2017-05-07] MEDS ORDERED: RIFADIN ONE (13:11)
[2017-05-07] MEDS ORDERED: GELFOAM TP ONE ×2 (13:11→14:58)
[2017-05-07] MEDS ORDERED: THROMBIN (BOVINE) TP ONE ×2 (13:11→14:57)
[2017-05-07] MEDS ORDERED: NACL 0.9% 250ML 0 ML ONE (13:11)
[2017-05-07] MEDS ORDERED: ZOFRAN ONE (13:24)
[2017-05-07] MEDS ORDERED: DECADRON ONE (13:24)
--- NOTE | 2017-05-07 13:45 | Progress Note ---
Assessment and Plan So-operative cardiac assessment Nuclear stress test showing no ischemia, fixed inferior and inferolateral wall defect consistent with prior MS, LVEF 46% Echo showing LVEF 40-45% with inferior wall hypokinesis and mild aortic stenosis CAD s/p CABG MPI 03/2014 - No ischemia Echo 02/2014 - LVEF 45-50% with inferior wall hypokinesis Hyperlipidemia Hypertension PVD with foot gangrene on IV heparin Recommendations: Moderate cardiac risk with a 6.6% risk of major cardiac complications. May proceed with revascularization procedure cardiac cervantes. Subjective Date of service: 05/07/17 Principal diagnosis: PAD, T2DM Interval history: For vascular procedure today. Objective Vital Signs Temp Pulse Pulse Resp BP BP Pulse Ox 05/07/17 12:18 63 143/74 05/07/17 11:27 97.9 F 63 16 143/74 96 05/07/17 11:00 97.9 F 63 16 143/74 96 05/07/17 10:00 98.8 F 74 18 106/55 93 05/06/17 22:00 99.8 F H 80 82 18 120/59 100 05/06/17 20:00 100.3 F H 80 18 154/70 95 - Physical Examination Extremities: Present: Ulceration Noted - Labs and Meds CBC 05/07/17 Range/Units 03:56 Hgb 12.7 (11.8-15.2) gm/dl Hct 37.5 (35.5-45.6) % Plt Count 209 (140-440) K/mm3
[2017-05-07] MEDS ORDERED: OMNIPAQUE (300 MG) 100 ML in NACL 0.9% 50 ML IR ONE (14:00)
[2017-05-07] MEDS ORDERED: RIFADIN 600 MG in NACL 0.9% 50 ML IR ONE (14:00)
[2017-05-07] MEDS ORDERED: HEPARIN 10,000 UNITS/10 ML 2,000 UNIT in NACL 0.9% 500 ML 500 ML IR ONE (14:00)
[2017-05-07] MEDS ORDERED: ANCEF/STERILE WATER 2 GM/20 ML IV NR (14:00)
[2017-05-07] MEDS ORDERED: MORPHINE ONE (14:51)
[2017-05-07] MEDS ORDERED: HEPARIN 10,000 UNITS/10 ML IV ONE (14:56)
[2017-05-07] MEDS ORDERED: NACL 0.9% 1000 ML IV ONE (14:56)
[2017-05-07] MEDS ORDERED: NACL 0.9% IR ONE (14:57)
[2017-05-07] MEDS ORDERED: MARCAINE 0.5% INFILTRATI ONE ×2 (14:58)
[2017-05-07] MEDS ORDERED: ePHEDrine SULFATE ONE (17:10)
[2017-05-07] MEDS ORDERED: NACL 0.9% 500 ML 500 ML IV ONE (18:00)
[2017-05-07] MEDS ORDERED: ANCEF ONE ×2 (18:41)
[2017-05-07] MEDS ORDERED: MORPHINE IV PRN ×2 (18:46→19:55)
[2017-05-07] MEDS ORDERED: NARCAN 0.4 MG/1 ML IV PRN (18:46)
--- NOTE | 2017-05-07 18:51 | Post Operative Note ---
Date of procedure: 05/07/17 Pre-op diagnosis: PVD with Left Foot Gangrene Post-op diagnosis: same Procedure: 1. Diagnostic Left Lower Extremity Arteriogram (Patient Had a Clinical Change) 2. Angioplasty and Stent of Left External Leg Artery with 8 x 10 cm Viabahn Stent Graft and 8 x 60 Balloon 3. Left Femoral Endarterectomy 4. Left Femoral Artery to Posterior Tibial Artery Bypass With In Situ Left Greater Saphenous Vein Graft Anesthesia: GETKristine Surgeon: CALVIN RODRIGUEZ Safety Coordinator: JODI PRESTON Estimated blood loss: other (750 ml) Pathology: list (left femoral plaque) Specimen disposition: to lab Condition: stable Disposition: PACU
--- NOTE | 2017-05-07 20:15 | Post Anesthesia Evaluation ---
- Post Anesthesia Evaluation Patient Participated: Yes Airway Patent: Yes Stable Respiratory Function: Yes Nausea/Vomiting: No Temp > 96.8F: Yes Pain Manageable: Yes Adequeate Hydration: Yes Anesthesia Complications: No
[2017-05-08] MEDS: NACL 0.9% 1000 ML 1,000 ML IV SCH (01:25)
[2017-05-08 05:01] LABS: Hematocrit 36.9 % (35.5-45.6)
[2017-05-08 05:19] LABS: BUN/Creatinine Ratio 24.16; Blood Urea Nitrogen 29 mg/dL (9-20); Calcium 8.2 mg/dL (8.4-10.2); Carbon Dioxide 19 mmol/L (22-30); Glucose 223 mg/dL (75-100); Potassium 5.3 mmol/L (3.6-5.0); Sodium 137 mmol/L (137-145)
[2017-05-08 05:25] LABS: Anion Gap 22 mmol/L
[2017-05-08] MEDS: LEVEMIR SUB-Q SCH (07:22)
[2017-05-08] MEDS: NOVOLOG SUB-Q SCH ×5 (07:23→22:28)
[2017-05-08] MEDS: NORCO 5/325 PO PRN ×2 (08:01→14:15)
--- NOTE | 2017-05-08 08:14 | Progress Note ---
Assessment and Plan - PAD - s/p Left femoral artery angioplasy, left femoral artery endoarterectomy and left femoral artery to post tibia artery bypass on 05/07/17 - IDDM: optimize control with increased levamir dose and continue with SSI, Consistent Carbohydrate diet - Hyperkalemia- corrected - Diabetic Left gangrene : r revascularization and local wound care - Diabetic peripheral Neuropathy: Continue with Gabapentin - Ischemic cardiomyopathy with EF 40-45% as at 2016 - Dysipidemia: On statin DVT and GI PPx with heparing and pepcid Subjective Date of service: 05/08/17 Principal diagnosis: PAD, T2DM Interval history: Pt with T2DM, PAD s/p Left femoral artery angioplasy, left femoral artery endoarterectomy and left femoral artery to post tibia artery bypass done Objective - Constitutional Vitals: Vital Signs - 12hr 05/07/17 05/07/17 05/07/17 20:15 20:30 20:45 Temperature Pulse Rate 77 78 77 Pulse Rate [ From Monitor] Respiratory 16 15 14 Rate Blood Pressure 118/52 119/55 106/47 Blood Pressure [Left Arm] O2 Sat by Pulse 96 95 100 Oximetry 05/07/17 05/07/17 05/07/17 21:00 21:15 21:32 Temperature 97.6 F Pulse Rate 76 74 73 Pulse Rate [ From Monitor] Respiratory 14 15 Rate Blood Pressure 111/48 116/50 Blood Pressure [Left Arm] O2 Sat by Pulse 95 97 Oximetry 05/07/17 05/07/17 05/07/17 21:38 21:41 21:51 Temperature Pulse Rate 76 76 Pulse Rate [ From Monitor] Respiratory 20 16 16 Rate Blood Pressure 117/54 117/54 Blood Pressure [Left Arm] O2 Sat by Pulse 98 98 Oximetry 05/07/17 05/07/17 05/07/17 22:00 22:11 22:21 Temperature 98.7 F 98.7 F Pulse Rate 89 89 90 Pulse Rate [ 89 From Monitor] Respiratory 16 16 15 Rate Blood Pressure 110/49 110/49 110/49 Blood Pressure 132/70 [Left Arm] O2 Sat by Pulse 100 97 97 Oximetry 05/07/17 05/07/17 05/07/17 22:31 22:41 22:51 Temperature Pulse Rate 77 89 91 H Pulse Rate [ From Monitor] Respiratory 16 16 15 Rate Blood Pressure 110/49 110/49 110/49 Blood Pressure [Left Arm] O2 Sat by Pulse 98 98 98 Oximetry 05/07/17 05/07/17 05/07/17 23:01 23:05 23:11 Temperature Pulse Rate 92 H 92 H 91 H Pulse Rate [ From Monitor] Respiratory 16 12 18 Rate Blood Pressure 132/70 132/70 132/70 Blood Pressure [Left Arm] O2 Sat by Pulse 100 100 100 Oximetry 05/07/17 05/07/17 05/07/17 23:21 23:31 23:41 Temperature Pulse Rate 89 89 89 Pulse Rate [ From Monitor] Respiratory 15 16 19 Rate Blood Pressure 132/70 132/70 132/70 Blood Pressure [Left Arm] O2 Sat by Pulse 100 100 100 Oximetry 05/07/17 05/08/17 05/08/17 23:51 00:01 00:11 Temperature Pulse Rate 88 88 91 H Pulse Rate [ From Monitor] Respiratory 12 19 17 Rate Blood Pressure 132/70 103/50 103/50 Blood Pressure [Left Arm] O2 Sat by Pulse 100 100 100 Oximetry 05/08/17 05/08/17 05/08/17 00:21 00:23 00:31 Temperature 99.7 F H Pulse Rate 92 H 94 H Pulse Rate [ From Monitor] Respiratory 12 17 Rate Blood Pressure 103/50 103/50 Blood Pressure [Left Arm] O2 Sat by Pulse 100 Oximetry 05/08/17 05/08/17 05/08/17 00:41 00:51 01:01 Temperature Pulse Rate 92 H 92 H 92 H Pulse Rate [ From Monitor] Respiratory 15 11 L 18 Rate Blood Pressure 103/50 103/50 143/82 Blood Pressure [Left Arm] O2 Sat by Pulse 100 Oximetry 05/08/17 05/08/17 05/08/17 01:11 01:21 01:31 Temperature Pulse Rate 90 90 86 Pulse Rate [ From Monitor] Respiratory 14 11 L 16 Rate Blood Pressure 143/82 143/82 143/82 Blood Pressure [Left Arm] O2 Sat by Pulse 86 Oximetry 05/08/17 05/08/17 05/08/17 01:41 01:51 02:00 Temperature Pulse Rate 86 87 87 Pulse Rate [ From Monitor] Respiratory 21 14 16 Rate Blood Pressure 143/82 143/82 122/62 Blood Pressure [Left Arm] O2 Sat by Pulse Oximetry 05/08/17 05/08/1717 02:11 02:21 02:31 Temperature Pulse Rate 86 87 87 Pulse Rate [ From Monitor] Respiratory 20 21 21 Rate Blood Pressure 122/62 122/62 122/62 Blood Pressure [Left Arm] O2 Sat by Pulse Oximetry 05/08/17 05/08/17 05/08/17 02:41 02:51 03:00 Temperature Pulse Rate 87 87 87 Pulse Rate [ From Monitor] Respiratory 22 20 21 Rate Blood Pressure 122/62 122/62 100/49 Blood Pressure [Left Arm] O2 Sat by Pulse 97 Oximetry 05/08/17 05/08/17 05/08/17 03:11 03:21 03:31 Temperature Pulse Rate 88 90 88 Pulse Rate [ From Monitor] Respiratory 18 17 20 Rate Blood Pressure 100/49 100/49 100/49 Blood Pressure [Left Arm] O2 Sat by Pulse 95 Oximetry 05/08/17 05/08/17 05/08/17 03:41 03:51 03:57 Temperature Pulse Rate 88 87 Pulse Rate [ 86 From Monitor] Respiratory 17 21 Rate Blood Pressure 100/49 100/49 Blood Pressure [Left Arm] O2 Sat by Pulse Oximetry 05/08/17 05/08/17 05/08/17 04:00 04:11 04:21 Temperature 99.4 F Pulse Rate 87 87 87 Pulse Rate [ From Monitor] Respiratory 21 24 17 Rate Blood Pressure 119/50 119/50 119/50 Blood Pressure [Left Arm] O2 Sat by Pulse 95 Oximetry 05/08/17 05/08/17 05/08/17 04:31 04:41 04:51 Temperature Pulse Rate 87 87 86 Pulse Rate [ From Monitor] Respiratory 18 15 26 H Rate Blood Pressure 119/50 119/50 119/50 Blood Pressure [Left Arm] O2 Sat by Pulse 92 Oximetry 05/08/17 05/08/17 05/08/17 05:00 05:11 05:21 Temperature Pulse Rate 86 86 87 Pulse Rate [ From Monitor] Respiratory 25 H 27 H 25 H Rate Blood Pressure 128/60 128/60 128/60 Blood Pressure [Left Arm] O2 Sat by Pulse Oximetry 05/08/17 05/08/17 05/08/17 05:31 05:40 05:51 Temperature Pulse Rate 87 86 87 Pulse Rate [ From Monitor] Respiratory 22 20 23 Rate Blood Pressure 128/60 132/70 128/60 Blood Pressure [Left Arm] O2 Sat by Pulse Oximetry 05/08/17 05/08/17 05/08/17 06:00 06:11 06:21 Temperature Pulse Rate 87 86 88 Pulse Rate [ From Monitor] Respiratory 18 22 19 Rate Blood Pressure 119/61 128/60 128/60 Blood Pressure [Left Arm] O2 Sat by Pulse Oximetry 05/08/17 05/08/17 05/08/17 06:31 06:41 06:51 Temperature Pulse Rate 86 86 89 Pulse Rate [ From Monitor] Respiratory 23 23 16 Rate Blood Pressure 128/60 119/61 119/61 Blood Pressure [Left Arm] O2 Sat by Pulse Oximetry 05/08/17 05/08/17 07:01 08:01 Temperature Pulse Rate 89 Pulse Rate [ From Monitor] Respiratory 17 23 Rate Blood Pressure 129/54 Blood Pressure [Left Arm] O2 Sat by Pulse 72 L Oximetry General appearance: Present: no acute distress, well-nourished - EENT Eyes: PERRL, EOM intact ENT: hearing intact, clear oral mucosa - Neck Neck: supple, normal ROM - Respiratory Respiratory effort: normal Respiratory: bilateral: CTA - Breasts Breasts: normal - Cardiovascular Rhythm: regular Heart Sounds: Present: S1 & S2. Absent: gallop, rub Extremities: pulses intact, No edema, normal color, Full ROM - Gastrointestinal General gastrointestinal: Present: soft, non-tender, non-distended, normal bowel sounds - Integumentary Integumentary: clear, warm, dry - Musculoskeletal Musculoskeletal: 1, strength equal bilaterally - Neurologic Neurologic: moves all extremities - Psychiatric Psychiatric: appropriate mood/affect, intact judgment & insight, memory intact - Labs CBC & Chem 7: 05/08/17 04:23 05/08/17 04:23 Labs: Abnormal lab results 05/07/17 05/07/17 05/07/17 Range/Units 11:48 11:48 20:28 Potassium (3.6-5.0) mmol/L Carbon Dioxide (22-30) mmol/L BUN (9-20) mg/dL Glucose (75-100) mg/dL POC Glucose 128 H 203 H (70-105) Calcium (8.4-10.2) mg/dL Crossmatch See Detail 05/07/17 05/08/17 Range/Units 22:47 04:23 Potassium 5.3 H D (3.6-5.0) mmol/L Carbon Dioxide 19 L (22-30) mmol/L BUN 29 H (9-20) mg/dL Glucose 223 H (75-100) mg/dL POC Glucose 253 H (70-105) Calcium 8.2 L (8.4-10.2) mg/dL Crossmatch
--- NOTE | 2017-05-08 10:07 | Progress Note ---
Assessment and Plan So-operative cardiac assessment s/p Diagnostic Left Lower Extremity Arteriogram, Angioplasty and Stent of Left External Leg Artery, left Femoral Endarterectomy, and Left Femoral Artery to Posterior Tibial Artery Bypass With In Situ Left Greater Saphenous Vein Graft CAD s/p CABG MPI 03/2014 - No ischemia Echo 02/2014 - LVEF 45-50% with inferior wall hypokinesis Hyperlipidemia Hypertension PVD with foot gangrene on IV heparin/Fever This admission: Nuclear stress test showing no ischemia, fixed inferior and inferolateral wall defect consistent with prior [place], LVEF 46% Echo showing LVEF 40-45% with inferior wall hypokinesis and mild aortic stenosis Recommendations: Continue supportive care No new cardiac recommendations Subjective Date of service: 05/08/17 Principal diagnosis: PAD, T2DM Interval history: No events overnight Objective Vital Signs Temp Pulse Pulse Resp BP BP Pulse Ox 05/08/17 09:21 91 H 12 133/63 05/08/17 09:11 91 H 18 133/63 05/08/17 09:00 87 18 133/63 96 05/08/17 08:51 88 17 108/55 95 05/08/17 08:41 89 10 L 108/55 95 05/08/17 08:31 88 10 L 108/55 97 05/08/17 08:21 87 20 108/55 96 05/08/17 08:11 87 22 108/55 95 05/08/17 08:01 23 05/08/17 08:00 98.9 F 88 22 108/55 95 05/08/17 07:50 86 13 118/52 98 05/08/17 07:41 87 21 129/54 94 05/08/17 07:31 89 14 129/54 95 05/08/17 07:21 89 21 129/54 05/08/17 07:11 90 25 H 129/54 05/08/17 07:01 89 17 129/54 72 L 05/08/17 06:51 89 16 119/61 05/08/17 06:41 86 23 119/61 05/08/17 06:31 86 23 128/60 05/08/17 06:21 88 19 128/60 05/08/17 06:11 86 22 128/60 05/08/17 06:00 87 18 119/61 05/08/17 05:51 87 23 128/60 05/08/17 05:40 86 20 132/70 05/08/17 05:31 87 22 128/60 05/08/17 05:21 87 25 H 128/60 05/08/17 05:11 86 27 H 128/60 05/08/17 05:00 86 25 H 128/60 05/08/17 04:51 86 26 H 119/50 05/08/17 04:41 87 15 119/50 05/08/17 04:31 87 18 119/50 92 05/08/17 04:21 87 17 119/50 95 05/08/17 04:11 87 24 119/50 05/08/17 04:00 99.4 F 87 21 119/50 05/08/17 03:57 86 05/08/17 03:51 87 21 100/49 05/08/17 03:41 88 17 100/49 05/08/17 03:31 88 20 100/49 05/08/17 03:21 90 17 100/49 95 05/08/17 03:11 88 18 100/49 05/08/17 03:00 87 21 100/49 97 05/08/17 02:51 87 20 122/62 05/08/17 02:41 87 22 122/62 05/08/17 02:31 87 21 122/62 05/08/17 02:21 87 21 122/62 05/08/17 02:11 86 20 122/62 05/08/17 02:00 87 16 122/62 05/08/17 01:51 87 14 143/82 05/08/17 01:41 86 21 143/82 05/08/17 01:31 86 16 143/82 05/08/17 01:21 90 11 L 143/82 86 05/08/17 01:11 90 14 143/82 05/08/17 01:01 92 H 18 143/82 05/08/17 00:51 92 H 11 L 103/50 100 05/08/17 00:41 92 H 15 103/50 05/08/17 00:31 94 H 17 103/50 100 05/08/17 00:23 99.7 F H 05/08/17 00:21 92 H 12 103/50 05/08/17 00:11 91 H 17 103/50 100 05/08/17 00:01 88 19 103/50 100 05/07/17 23:51 88 12 132/70 100 05/07/17 23:41 89 19 132/70 100 05/07/17 23:31 89 16 132/70 100 05/07/17 23:21 89 15 132/70 100 05/07/17 23:11 91 H 18 132/70 100 05/07/17 23:05 92 H 12 132/70 100 05/07/17 23:01 92 H 16 132/70 100 05/07/17 22:51 91 H 15 110/49 98 05/07/17 22:41 89 16 110/49 98 05/07/17 22:31 77 16 110/49 98 05/07/17 22:21 98.7 F 90 15 110/49 97 05/07/17 22:11 89 16 110/49 97 05/07/17 22:00 98.7 F 89 89 16 110/49 132/70 100 05/07/17 21:51 76 16 117/54 98 05/07/17 21:41 76 16 117/54 98 05/07/17 21:38 20 05/07/17 21:32 73 05/07/17 21:15 97.6 F 74 15 116/50 97 05/07/17 21:00 76 14 111/48 95 05/07/17 20:45 77 14 106/47 100 05/07/17 20:30 78 15 119/55 95 05/07/17 20:15 77 16 118/52 96 05/07/17 20:00 92 H 20 129/69 98 05/07/17 19:45 82 16 127/61 95 05/07/17 19:30 79 13 120/69 96 05/07/17 19:20 90 17 124/56 98 05/07/17 19:15 92 H 14 120/72 97 05/07/17 19:10 88 16 130/75 96 05/07/17 19:03 97.0 F L 95 H 17 121/67 97 05/07/17 12:18 63 143/74 05/07/17 11:27 97.9 F 63 16 143/74 96 05/07/17 11:00 97.9 F 63 16 143/74 96 - Physical Examination General: Appears Well, No Apparent Distress HEENT: Positive: PERRL Neck: Positive: neck supple, trachea midline. Negative: JVD/HJR Cardiac: Positive: Reg Rate and Rhythm Lungs: Positive: Normal Exam Neuro: Positive: Grossly Intact Abdomen: Positive: Soft Extremities: Present: Ulceration Noted - Labs and Meds CBC 05/08/17 Range/Units 04:23 Hgb 12.0 (11.8-15.2) gm/dl Hct 36.9 (35.5-45.6) % Comprehensive Metabolic Panel 05/08/17 Range/Units 04:23 Sodium 137 (137-145) mmol/L Potassium 5.3 H D (3.6-5.0) mmol/L Chloride 101.0 (98-107) mmol/L Carbon Dioxide 19 L (22-30) mmol/L BUN 29 H (9-20) mg/dL Creatinine 1.2 (0.8-1.5) mg/dL Glucose 223 H (75-100) mg/dL Calcium 8.2 L (8.4-10.2) mg/dL
[2017-05-08] MEDS: PEPCID PO SCH (11:00)
[2017-05-08] MEDS: PLAVIX PO SCH (11:00)
[2017-05-08] MEDS: TOPROL XL PO SCH (11:00)
[2017-05-08] MEDS: FOLBEE PLUS CZ PO SCH (11:00)
[2017-05-08] MEDS: SENOKOT PO SCH ×2 (11:00→22:27)
[2017-05-08] MEDS: ZESTRIL PO SCH (11:00)
[2017-05-08] MEDS: COLACE PO SCH ×2 (11:00→22:27)
[2017-05-08] MEDS: LYRICA PO SCH ×2 (11:00)
--- NOTE | 2017-05-08 11:17 | Consultation ---
History of Present Illness Consult date: 05/08/17 Requesting physician: SONYA CADENA Reason for consult: other (S/P left Femoral to Posterior Tibial sartery bypass; PVD (Symptomatic)) History of present illness: PULMONARY/CCM CONSULT NOTE (Full dictation # [id number]) Please see dictated notes for full details Past History Past Medical History: diabetes, heart failure, hypertension, PVD, other (Kidney stones) Past Surgical History: CABG, PTCA, Other (Shoulder reeplacement Rt 1974 Foot surgery Knee sugery Atherectom 10/1601/12/17) Social history: smoking (in the past till 20 yrs ago) Family history: hypertension Medications and Allergies Allergies Allergy/AdvReac Type Severity Reaction Status Date / Time bismuth subsalicylate Allergy Vomiting Verified 05/30/16 08:43 castor oil Allergy Vomiting Verified 05/22/16 09:22 oxycodone HCl [From Percocet] Allergy Dizziness Verified 05/22/16 09:24 meperidine HCl [From Demerol] AdvReac COMBATIVENE Verified 05/30/16 08:45 SS propoxyphene napsylate AdvReac Dizziness Verified 05/22/16 09:23 [From Darvocet-N] NARCOTICS AdvReac COMBATIVENE Uncoded 05/30/16 08:45 SS Home Medications Medication Instructions Recorded Confirmed Last Taken Type Dorzolamide/Timolol/Pf [Cosopt Pf 2 drop INTRAOCULA Q12HR MDD 2 gtts 05/22/1605/01/17 08:00 History Eye Drops] Empagliflozin [Jardiance] 25 mg PO DAILY MDD 25mg 05/22/16 05/01/17 04/30/17 08: 00 History B12/Levomefolate Calcium/B-6 1 tab PO DAILY #30 tablet 08/26/16 05/01/17 08:00 Rx [Foltx Tablet] Clopidogrel [Plavix] 75 mg PO QDAY #30 tablet 08/26/16 05/01/17 05/01/17 08:00 Rx Insulin Glargine [Lantus VIAL] 25 units SUB-Q QHS #10 units 08/26/16 05/01/17 23:00 Rx Lisinopril [Zestril TAB] 40 mg PO QDAY #30 tablet 10/15/16 06/20/17 06/19/17 12: 00 Rx 40mg Metoprolol Xl [Metoprolol 50 mg PO QDAY 30 Days 08/26/16 05/01/17 04/30/17 08: 00 Rx SUCCINATE ER TAB] Nitroglycerin [place] [Nitromist] 0.4 mg INHALATION PRN PRN #30 08/26/16 05/01/17 05/01/16 16:00 Rx bottle 0.4mg Pregabalin [Lyrica] 100 mg PO DAILY #60 capsule 08/26/16 05/01/17 05/01/17 08: 00 Rx 100mg Dabigatran [Pradaxa] 75 mg PO BID MDD 75mg 01/24/17 05/01/17 05/01/17 08:00 History Acetaminophen [Acetaminophen TAB] 650 mg PO Q4H PRN #30 tablet 02/02/1704/30/17 23:00 Rx 650mg Active Meds: Active Medications Acetaminophen (Tylenol) 650 mg PO Q4H PRN PRN Reason: Pain MILD(1-3)/Fever >100.5/[place] Last Admin: 05/05/17 21:58 Dose: 650 mg Acetaminophen/Hydrocodone Bitart ([place] 5/325) 2 each PO Q6H PRN PRN Reason: Pain, Moderate (4-6) Last Admin: 05/08/17 08:01 Dose: 2 each Atorvastatin Calcium (Lipitor) 40 mg PO QHS [facility] [place] Last Admin: 05/07/17 23:01 Dose: 40 mg Bisacodyl (Dulcolax) 10 mg CO QDAY PRN PRN Reason: Constipation unrelieved by MOM Clopidogrel Bisulfate (Plavix) 75 mg PO QDAY [facility] [place] Last Admin: 05/07/17 10:30 Dose: Not Given Dextrose (D50w (25gm)) 50 ml IV PRN PRN PRN Reason: Hypoglycemia Diphenhydramine HCl (Benadryl) 25 mg IV Q4H PRN PRN Reason: Itching Last Admin: 05/08/17 02:30 Dose: 25 mg Docusate Sodium (Colace) 100 mg PO BID [facility] [place] Last Admin: 05/07/17 23:02 Dose: 100 mg Famotidine (Pepcid) 20 mg PO QDAY [facility] [place] Hydromorphone HCl (Dilaudid) 0.25 mg IV Q10MIN PRN PRN Reason: Pain, Moderate (4-6) Stop: 05/10/17 21:02 Last Admin: 05/07/17 21:38 Dose: 0.25 mg Hydromorphone/Sodium Chloride (Dilaudid [employer] 6mg/30ml) 0 mg IV DIRECT [facility] [place] PRN Reason: Protocol Sodium Chloride (Nacl 0.9% 1000 Ml) 1,000 mls @ 75 mls/hr IV DIRECT [facility] [place] Last Admin: 05/08/17 01:25 Dose: 75 mls/hr Insulin Aspart (Novolog) 0 units SUB-Q ACHS [facility] [place] PRN Reason: Protocol Last Admin: 05/08/17 08:11 Dose: 4 units Insulin Detemir (Levemir) 30 units SUB-Q QHS [facility] [place] Last Admin: 05/08/17 07:22 Dose: Not Given Lisinopril (Zestril) 40 mg PO QDAY [facility] [place] Last Admin: 05/07/17 10:30 Dose: Not Given Magnesium Hydroxide (Milk Of Magnesia) 30 ml PO Q4H PRN PRN Reason: Constipation Metoprolol Succinate (Toprol Xl) 50 mg PO QDAY [facility] [place] Last Admin: 05/07/17 12:18 Dose: 50 mg Miscellaneous Medication (Dorzolamide/Timolol/Pf [Cosopt Pf Eye Drops]) 1 drop INTRAOCULA DAILY [facility] [place] Miscellaneous Medication (Empagliflozin [Jardiance]) 25 mg PO DAILY [facility] [place] Morphine Sulfate (Morphine) 4 mg IV Q4H PRN PRN Reason: Pain , Severe (7-10) Last Admin: 05/07/17 06:12 Dose: 4 mg Morphine Sulfate (Morphine) 2 mg IV Q4H PRN PRN Reason: Pain, Moderate (4-6) Naloxone HCl (Narcan 0.4 Mg/1 Ml) 0.1 mg IV Q2MIN PRN PRN Reason: Res Rate </= 8 or 02 SAT < 92% Nitroglycerin (Nitromist) 1 spray TL PRN PRN PRN Reason: Chest Pain Ondansetron HCl (Zofran) 4 mg IV Q8H PRN PRN Reason: Nausea Pregabalin (Lyrica) 75 mg PO DAILY [facility] [place] Last Admin: 05/07/17 10:29 Dose: Not Given Pregabalin (Lyrica) 25 mg PO DAILY [facility] [place] Last Admin: 05/07/17 10:29 Dose: Not Given Senna (Senokot) 8.6 mg PO Q12HR [facility] [place] Last Admin: 05/07/17 23:01 Dose: 8.6 mg Temazepam (Restoril) 15 mg PO QHS PRN PRN Reason: Sleep Last Admin: 05/02/17 03:31 Dose: 15 mg Vitamin B Complex/Folic Acid ([place] Plus Cz) 1 each PO QDAY [facility] [place] Last Admin: 05/07/17 10:28 Dose: Not Given Physical Examination Vital signs: Vital Signs Temp Pulse Resp BP Pulse Ox 99.7 F H 94 H 18 161/83 98 05/01/17 14:54 05/01/17 14:54 05/01/17 14:54 05/01/17 14:54 05/01/17 14:54 Results - Laboratory Findings CBC and BMP: 05/08/17 13:07 05/08/17 04:23 PT/INR, D-dimer PT 14.1 Sec. (12.2-14.9) 05/03/17 03:23 INR 1.10 (0.87-1.13) 05/03/17 03:23 Abnormal lab findings: Abnormal Labs 05/01/17 05/01/17 05/01/17 14:55 14:55 14:55 WBC 12.0 H RDW 12.9 L Lymph % (Auto) 6.3 L [place] % (Auto) Lymph # 0.8 L [place] # 0.9 H Seg Neutrophils % 85.9 H Lymphocytes % (Manual) Monocytes % (Manual) Seg Neutrophils # 10.3 H INR 1.15 H APTT 37.7 H Heparin Anti-Xa Level Sodium Potassium Chloride 97.8 L Carbon Dioxide BUN 23 H Glucose 321 H POC Glucose Hemoglobin A1c Calcium Albumin Crossmatch 05/01/17 05/01/17 05/02/17 18:32 21:49 03:51 WBC RDW 12.8 L Lymph % (Auto) [place] % (Auto) 12.4 H Lymph # [place] # 1.0 H Seg Neutrophils % Lymphocytes % (Manual) Monocytes % (Manual) Seg Neutrophils # INR APTT Heparin Anti-Xa Level Sodium Potassium Chloride Carbon Dioxide BUN Glucose POC Glucose 247 H 280 H Hemoglobin A1c Calcium Albumin Crossmatch 05/02/17 05/02/17 05/02/17 03:51 03:51 07:27 WBC RDW Lymph % (Auto) [place] % (Auto) Lymph # [place] # Seg Neutrophils % Lymphocytes % (Manual) Monocytes % (Manual) Seg Neutrophils # INR APTT Heparin Anti-Xa Level 0.22 L Sodium Potassium Chloride Carbon Dioxide BUN Glucose 136 H POC Glucose 115 H Hemoglobin A1c Calcium Albumin Crossmatch 05/02/17 05/02/17 05/02/17 11:50 20:33 21:56 WBC RDW Lymph % (Auto) [place] % (Auto) Lymph # [place] # Seg Neutrophils % Lymphocytes % (Manual) Monocytes % (Manual) Seg Neutrophils # INR APTT Heparin Anti-Xa Level 0.24 L Sodium Potassium Chloride Carbon Dioxide BUN Glucose POC Glucose 165 H 248 H Hemoglobin A1c Calcium Albumin Crossmatch 05/03/17 05/03/17 05/03/17 03:23 05:14 05:14 WBC RDW 12.8 L Lymph % (Auto) [place] % (Auto) 14.1 H Lymph # [place] # 1.2 H Seg Neutrophils % Lymphocytes % (Manual) Monocytes % (Manual) Seg Neutrophils # INR APTT 101.1 H* Heparin Anti-Xa Level Sodium 136 L Potassium Chloride Carbon Dioxide BUN Glucose 116 H POC Glucose Hemoglobin A1c Calcium Albumin 3.0 L Crossmatch 05/03/17 05/03/17 05/03/17 05:14 11:48 11:51 WBC RDW Lymph % (Auto) [place] % (Auto) Lymph # [place] # Seg Neutrophils % Lymphocytes % (Manual) Monocytes % (Manual) Seg Neutrophils # INR APTT Heparin Anti-Xa Level 0.26 L Sodium Potassium Chloride Carbon Dioxide BUN Glucose POC Glucose 128 H Hemoglobin A1c 10.2 H Calcium Albumin Crossmatch 05/03/17 05/03/17 05/04/17 18:50 22:17 04:02 WBC RDW 12.9 L Lymph % (Auto) [place] % (Auto) Lymph # [place] # Seg Neutrophils % Lymphocytes % (Manual) 13.0 L Monocytes % (Manual) 9.0 H Seg Neutrophils # INR APTT Heparin Anti-Xa Level Sodium Potassium Chloride Carbon Dioxide BUN Glucose POC Glucose 314 H 312 H Hemoglobin A1c Calcium Albumin Crossmatch 05/04/17 05/04/17 05/04/17 04:02 07:49 11:54 WBC RDW Lymph % (Auto) [place] % (Auto) Lymph # [place] # Seg Neutrophils % Lymphocytes % (Manual) Monocytes % (Manual) Seg Neutrophils # INR APTT Heparin Anti-Xa Level Sodium 134 L Potassium 5.2 H Chloride 96.2 L Carbon Dioxide BUN 21 H Glucose 251 H POC Glucose 177 H 186 H Hemoglobin A1c Calcium Albumin 3.0 L Crossmatch 05/04/17 05/04/17 05/05/17 17:46 22:51 05:09 WBC RDW Lymph % (Auto) [place] % (Auto) Lymph # [place] # Seg Neutrophils % Lymphocytes % (Manual) Monocytes % (Manual) Seg Neutrophils # INR APTT Heparin Anti-Xa Level Sodium 135 L Potassium Chloride Carbon Dioxide BUN Glucose 179 H POC Glucose 244 H 265 H Hemoglobin A1c Calcium Albumin 2.9 L Crossmatch 05/05/17 05/05/17 05/05/17 05:09 07:39 11:24 WBC RDW Lymph % (Auto) [place] % (Auto) Lymph # [place] # Seg Neutrophils % Lymphocytes % (Manual) Monocytes % (Manual) Seg Neutrophils # INR APTT Heparin Anti-Xa Level 0.15 L 0.29 L Sodium Potassium Chloride Carbon Dioxide BUN Glucose POC Glucose 153 H Hemoglobin A1c Calcium Albumin Crossmatch 05/05/17 05/05/17 05/05/17 11:53 16:33 22:05 WBC RDW Lymph % (Auto) [place] % (Auto) Lymph # [place] # Seg Neutrophils % Lymphocytes % (Manual) Monocytes % (Manual) Seg Neutrophils # INR APTT Heparin Anti-Xa Level Sodium Potassium Chloride Carbon Dioxide BUN Glucose POC Glucose 171 H 317 H 313 H Hemoglobin A1c Calcium Albumin Crossmatch 05/06/17 05/06/17 05/06/17 07:32 11:47 16:28 WBC RDW Lymph % (Auto) [place] % (Auto) Lymph # [place] # Seg Neutrophils % Lymphocytes % (Manual) Monocytes % (Manual) Seg Neutrophils # INR APTT Heparin Anti-Xa Level Sodium Potassium Chloride Carbon Dioxide BUN Glucose POC Glucose 176 H 210 H 283 H Hemoglobin A1c Calcium Albumin Crossmatch 05/06/17 05/07/17 05/07/17 21:33 03:56 07:11 WBC RDW Lymph % (Auto) [place] % (Auto) Lymph # [place] # Seg Neutrophils % Lymphocytes % (Manual) Monocytes % (Manual) Seg Neutrophils # INR APTT Heparin Anti-Xa Level 0.10 L Sodium Potassium Chloride Carbon Dioxide BUN Glucose POC Glucose 264 H 276 H Hemoglobin A1c Calcium Albumin Crossmatch 05/07/17 05/07/17 05/07/17 11:48 11:48 20:28 WBC RDW Lymph % (Auto) [place] % (Auto) Lymph # [place] # Seg Neutrophils % Lymphocytes % (Manual) Monocytes % (Manual) Seg Neutrophils # INR APTT Heparin Anti-Xa Level Sodium Potassium Chloride Carbon Dioxide BUN Glucose POC Glucose 128 H 203 H Hemoglobin A1c Calcium Albumin Crossmatch See Detail 05/07/17 05/08/17 05/08/17 22:47 04:23 07:57 WBC RDW Lymph % (Auto) [place] % (Auto) Lymph # [place] # Seg Neutrophils % Lymphocytes % (Manual) Monocytes % (Manual) Seg Neutrophils # INR APTT Heparin Anti-Xa Level Sodium Potassium 5.3 H D Chloride Carbon Dioxide 19 L BUN 29 H Glucose 223 H POC Glucose 253 H 258 H Hemoglobin A1c Calcium 8.2 L Albumin Crossmatch
--- NOTE | 2017-05-08 11:52 | Operative Report ---
Operative Report Operative Report: Date of Procedure: 05/07/2017 Pre-operative Diagnosis: PVD with Left Foot Gangrene Post-operative Diagnosis: Same Procedure(s): 1. Diagnostic Left Lower Extremity Arteriogram (Patient Had a Clinical Change) 2. Angioplasty and Stent of Left External Leg Artery with 8 x 10 cm Viabahn Stent Graft and 8 x 60 Balloon 3. Left Femoral Endarterectomy 4. Left Femoral Artery to Posterior Tibial Artery Bypass With In Situ Left Greater Saphenous Vein Graft Surgeon: Elias Meza M.D. Spiral Spring Winder: Michoacano Zimmerman M.D. Second Asst.: Zeke Nye PA-C Anesthesia: Gen. endotracheal anesthesia EBL: 750 mL Counts: Correct Complications: None Condition: Stable Findings: Successful revascularization of the left lower extremity with palpable pedal pulse at the completion of the case. Specimen: Left femoral plaque sent to pathology. Indication: The patient is a 76-year-old male with a history of progressive disease and gangrene of his third toe of the left foot. He has had previous endovascular intervention with short-term patency so was felt that he would benefit from a bypass to help heal his wounds or any amputation sites if needed. He was given the risk, benefits, and alternative procedures and consented to procedure. Description of Procedure: The patient was brought to the operating room and laid in supine position. After general endotracheal anesthesia was achieved and was prepped and draped in normal sterile fashion. A longitudinal incision was created in the left groin and carried down to the saphenofemoral junction using sharp dissection. All the side branches of the proximal saphenous vein were dissected circumferentially and suture ligated and divided. The same incision I dissected out the common femoral artery as well as the SFA and profunda and controlled each with a vessel loop. No palpation of the common femoral artery as well as the distal external leg artery revealed heavily calcified vessels. I then made a longitudinal incision on the medial aspect of the leg and carried this down to the saphenous vein using a combination of the Harmonic and electrocautery. All sidebranches were then suture ligated and divided. I then dissected out the posterior tibial artery and the midportion of the leg due to same incision. This was dissected circumferentially and the control vessels. At this point I systemically heparinized the patient. I placed a Satinsky clamp on the saphenofemoral junction and divided the saphenous vein from the femoral vein. I closed the venotomy using a 4-0 Prolene in running fashion. I then placed a Vesseloops and the SFA and profunda on tension and placed a angled Satinsky clamp on the distal external iliac artery to occlude flow. Upon creating the arteriotomy with 11 blade and Winter scissor was obvious that I do not have control of the proximal inflow secondary to the calcium. I was able to advance a 6 Arline into the external iliac artery and inflated this with a three-way stopcock to occlude flow. I then performed an extensive femoral endarterectomy including removing plaque from the profunda, common femoral artery, and the distal external iliac artery. I then removed the forward and placed a Satinsky clamp on the distal external iliac artery or I discussed performed endarterectomy. I then closed the femoral arteriotomy using a bovine pericardial patch. I used the Winter scissors to spatulate the saphenous vein and removed the proximal valve. I created a arteriotomy in the bovine pericardial patch and performed an end-to-side anastomosis between the common femoral artery and the saphenous vein using 2 6-0 Prolene as a running fashion. The removed all clamps allow flow into the saphenous vein graft which had an excellent pulse in the proximal segment. I used a micropuncture needle to access the pericardial patch proximal to the anastomosis and placed a 6 Salvadorean sheath by Seldinger technique. An arteriogram of the left leg demonstrated the common iliac artery was widely patent. The external iliac artery had multiple symptoms of stenosis with the greatest segment approximately 50%. I want to improve the patient's inflow to give him the best chance to heal his wounds. I decided to place an 8 x 10 cm Viabahn stent graft to prevent any perforation given the heavily calcified artery. I then postdilated this with an 8 x 40 balloon with the result of a widely patent external iliac artery is significantly improved pulsation of the common femoral artery. I then suture ligated and divided the distal portion of the saphenous vein and infused it with heparinized saline. I then used the LeMaitre valvulotome to lyse the valves. After several passes I was convinced that I had lysed all valves however there was somewhat sluggish flow. I used the ultrasound to identify several branches that appeared to be still inflow and made several counterincisions over the branches and ligated and divided these branches. While scanning the vein and I did also note thrombus within the vein graft which was removed with a 3 Arline. After removal of the thrombus as well as ligation of the side branches the outflow was significant improved. I clamped the posterior tibial artery main arteriotomy using 11 blade and Winter scissors. I created end to side anastomosis using 2, 6-0 Prolene in running fashion. Prior to completing the anastomosis under first vein graft as well as the posterior tibial artery and then completed the anastomosis. I removed all clamps allow flow into the posterior tibial artery which had an excellent pulse distal to the anastomosis. Hemostasis within the bones was achieved with a combination of clot and Tisseel. Once hemostasis had been achieved the groin wound was closed in 3 layers and a 3-0 Vicryl running fashion and deep layer, and 3-0 Vicryl running fashion and the deep dermal layer, and a 4-0 Vicryl in a fashion the skin. The remaining wounds were closed in 2 layers using a 3-0 Vicryl running fashion the deep dermal layer and arpit for the skin. The groin wound was dressed with Dermabond and the remaining incisions were dressed with Island dressings. The patient tolerated the procedure well. All sponge, needle, and estimate counts were correct. The patient was taken to the recovery area in stable condition.
[2017-05-08] MEDS ORDERED: HEPARIN 10,000 UNITS/10 ML IV ONE (13:00)
[2017-05-08] MEDS: HEPARIN/ 0.45% NACL-25,000 UNIT/500 ML 25,000 UNIT/500 ML BAG IV SCH (13:23)
[2017-05-08 14:00] LABS: Hematocrit 37.5 % (35.5-45.6); Hemoglobin 12.4 gm/dl (11.8-15.2)
[2017-05-08 14:05] LABS: INR 1.04 (0.87-1.13)
[2017-05-08 14:20] LABS: ISTAT K 5.5 (3.5-4.9)
--- NOTE | 2017-05-08 15:47 | Progress Note ---
Assessment and Plan The patient is doing well. Will transfer to the [facility] unit. Increase activity. In the operating room he had thrombus noted in the graft so I will restart the Heparin gtt. Will likely require ray amputation of his left 3rd toe prior to discharge. Subjective Date of service: 05/08/17 Principal diagnosis: PAD, T2DM Interval history: The patient has no complaints at this time. He had some confusion overnight but is oriented this morning. He denies pain in his left foot at this time. Objective - Constitutional Vitals: Vital Signs - 12hr 05/08/17 05/08/17 05/08/17 03:51 03:57 04:00 Temperature 99.4 F Pulse Rate 87 87 Pulse Rate [ 86 From Monitor] Respiratory 21 21 Rate Blood Pressure 100/49 119/50 O2 Sat by Pulse Oximetry 05/08/17 05/08/17 05/08/17 04:11 04:21 04:31 Temperature Pulse Rate 87 87 87 Pulse Rate [ From Monitor] Respiratory 24 17 18 Rate Blood Pressure 119/50 119/50 119/50 O2 Sat by Pulse 95 92 Oximetry 05/08/17 05/08/17 05/08/17 04:41 04:51 05:00 Temperature Pulse Rate 87 86 86 Pulse Rate [ From Monitor] Respiratory 15 26 H 25 H Rate Blood Pressure 119/50 119/50 128/60 O2 Sat by Pulse Oximetry 05/08/17 05/08/17 05/08/17 05:11 05:21 05:31 Temperature Pulse Rate 86 87 87 Pulse Rate [ From Monitor] Respiratory 27 H 25 H 22 Rate Blood Pressure 128/60 128/60 128/60 O2 Sat by Pulse Oximetry 05/08/17 05/08/17 05/08/17 05:40 05:51 06:00 Temperature Pulse Rate 86 87 87 Pulse Rate [ From Monitor] Respiratory 20 23 18 Rate Blood Pressure 132/70 128/60 119/61 O2 Sat by Pulse Oximetry 05/08/17 05/08/17 05/08/17 06:11 06:21 06:31 Temperature Pulse Rate 86 88 86 Pulse Rate [ From Monitor] Respiratory 22 19 23 Rate Blood Pressure 128/60 128/60 128/60 O2 Sat by Pulse Oximetry 05/08/17 05/08/17 05/08/17 06:41 06:51 07:01 Temperature Pulse Rate 86 89 89 Pulse Rate [ From Monitor] Respiratory 23 16 17 Rate Blood Pressure 119/61 119/61 129/54 O2 Sat by Pulse 72 L Oximetry 05/08/17 05/08/17 05/08/17 07:11 07:21 07:31 Temperature Pulse Rate 90 89 89 Pulse Rate [ From Monitor] Respiratory 25 H 21 14 Rate Blood Pressure 129/54 129/54 129/54 O2 Sat by Pulse 95 Oximetry 05/08/17 05/08/17 05/08/17 07:41 07:50 08:00 Temperature 98.9 F Pulse Rate 87 86 88 Pulse Rate [ 87 From Monitor] Respiratory 21 13 20 Rate Blood Pressure 129/54 118/52 108/55 O2 Sat by Pulse 94 98 94 Oximetry 05/08/17 05/08/17 05/08/17 08:01 08:11 08:21 Temperature Pulse Rate 87 87 Pulse Rate [ From Monitor] Respiratory 23 22 20 Rate Blood Pressure 108/55 108/55 O2 Sat by Pulse 95 96 Oximetry 05/08/17 05/08/17 05/08/17 08:31 08:41 08:51 Temperature Pulse Rate 88 89 88 Pulse Rate [ From Monitor] Respiratory 10 L 10 L 17 Rate Blood Pressure 108/55 108/55 108/55 O2 Sat by Pulse 97 95 95 Oximetry 05/08/17 05/08/17 05/08/17 09:00 09:11 09:21 Temperature Pulse Rate 87 91 H 91 H Pulse Rate [ From Monitor] Respiratory 18 18 12 Rate Blood Pressure 133/63 133/63 133/63 O2 Sat by Pulse 96 Oximetry 05/08/17 05/08/17 05/08/17 09:31 09:40 09:51 Temperature Pulse Rate 92 H 92 H 91 H Pulse Rate [ From Monitor] Respiratory 16 17 11 L Rate Blood Pressure 133/63 133/63 133/63 O2 Sat by Pulse 95 Oximetry 05/08/17 05/08/17 05/08/17 10:00 10:11 10:21 Temperature Pulse Rate 88 86 86 Pulse Rate [ From Monitor] Respiratory 17 23 10 L Rate Blood Pressure 116/53 116/53 133/63 O2 Sat by Pulse 96 94 95 Oximetry 05/08/17 05/08/17 05/08/17 10:31 10:41 10:51 Temperature Pulse Rate 85 86 86 Pulse Rate [ From Monitor] Respiratory 15 16 15 Rate Blood Pressure 133/63 133/63 133/63 O2 Sat by Pulse 98 96 95 Oximetry 05/08/17 05/08/17 05/08/17 11:00 11:11 11:21 Temperature Pulse Rate 84 86 85 Pulse Rate [ From Monitor] Respiratory 21 10 L 14 Rate Blood Pressure 124/48 124/48 124/48 O2 Sat by Pulse 97 94 96 Oximetry 05/08/17 05/08/17 05/08/17 11:31 11:41 11:51 Temperature Pulse Rate 87 86 110 H Pulse Rate [ From Monitor] Respiratory 9 L 23 21 Rate Blood Pressure 124/48 124/48 124/48 O2 Sat by Pulse 91 94 Oximetry 05/08/17 05/08/17 05/08/17 12:00 12:11 12:21 Temperature 98.5 F Pulse Rate 84 86 84 Pulse Rate [ From Monitor] Respiratory 22 15 22 Rate Blood Pressure 138/50 138/50 124/48 O2 Sat by Pulse 93 98 92 Oximetry 05/08/17 05/08/17 05/08/17 12:31 12:41 12:51 Temperature Pulse Rate 86 88 86 Pulse Rate [ From Monitor] Respiratory 22 20 24 Rate Blood Pressure 124/48 124/48 124/48 O2 Sat by Pulse 96 93 93 Oximetry 05/08/17 05/08/17 05/08/17 13:00 13:11 13:21 Temperature Pulse Rate 86 86 88 Pulse Rate [ From Monitor] Respiratory 16 25 H 17 Rate Blood Pressure 146/50 146/50 146/50 O2 Sat by Pulse 93 93 94 Oximetry 05/08/17 05/08/17 05/08/17 13:31 13:41 13:51 Temperature Pulse Rate 85 86 87 Pulse Rate [ From Monitor] Respiratory 23 22 20 Rate Blood Pressure 146/50 146/50 146/50 O2 Sat by Pulse 93 95 95 Oximetry 05/08/17 05/08/17 05/08/17 14:00 14:11 14:15 Temperature Pulse Rate 85 86 Pulse Rate [ From Monitor] Respiratory 25 H 22 25 H Rate Blood Pressure 137/57 137/57 O2 Sat by Pulse 96 95 Oximetry 05/08/17 05/08/17 05/08/17 14:21 14:31 14:41 Temperature Pulse Rate 86 86 88 Pulse Rate [ From Monitor] Respiratory 21 21 24 Rate Blood Pressure 137/57 137/57 137/57 O2 Sat by Pulse 93 96 95 Oximetry 05/08/17 05/08/17 05/08/17 14:51 15:00 15:11 Temperature Pulse Rate 86 85 84 Pulse Rate [ From Monitor] Respiratory 21 21 22 Rate Blood Pressure 137/57 144/57 144/57 O2 Sat by Pulse 95 96 97 Oximetry General appearance: Present: no acute distress - Respiratory Respiratory effort: normal - Cardiovascular Rhythm: regular Extremities: abnormal (Left leg incisions are clean, dry, and intact. There is no evidence of hematoma. Palpable pulse in the bypass graft with signal at the PT) - Genitourinary Male genitourinary: normal - Labs CBC & Chem 7: 05/08/17 13:07 05/08/17 04:23 Labs: Abnormal lab results 05/07/17 05/07/17 05/07/17 Range/Units 11:48 16:11 16:44 POC Hgb 11.6 L (12-17) POC Hct 34 L (38-51) POC Sodium 137 L (138-146) mmol/L POC Potassium 5.5 H 5.0 H (3.5-4.9) Potassium (3.6-5.0) mmol/L Carbon Dioxide (22-30) mmol/L POC BUN 31 H 27 H (8-26) mg/dl BUN (9-20) mg/dL Glucose (75-100) mg/dL POC Glucose 158 H 170 H (70-105) Calcium (8.4-10.2) mg/dL Crossmatch See Detail 05/07/17 05/07/17 05/08/17 Range/Units 20:28 22:47 04:23 POC Hgb (12-17) POC Hct (38-51) POC Sodium (138-146) mmol/L POC Potassium (3.5-4.9) Potassium 5.3 H D (3.6-5.0) mmol/L Carbon Dioxide 19 L (22-30) mmol/L POC BUN (8-26) mg/dl BUN 29 H (9-20) mg/dL Glucose 223 H (75-100) mg/dL POC Glucose 203 H 253 H (70-105) Calcium 8.2 L (8.4-10.2) mg/dL Crossmatch 05/08/17 05/08/17 Range/Units 07:57 12:01 POC Hgb (12-17) POC Hct (38-51) POC Sodium (138-146) mmol/L POC Potassium (3.5-4.9) Potassium (3.6-5.0) mmol/L Carbon Dioxide (22-30) mmol/L POC BUN (8-26) mg/dl BUN (9-20) mg/dL Glucose (75-100) mg/dL POC Glucose 258 H 282 H (70-105) Calcium (8.4-10.2) mg/dL Crossmatch
[2017-05-08] MEDS ORDERED: LEVEMIR SUB-Q SCH (22:00)
[2017-05-08] MEDS: TYLENOL PO PRN (22:27)
[2017-05-09] MEDS: NORCO 5/325 PO PRN ×3 (00:44→16:39)
--- NOTE | 2017-05-09 07:46 | Progress Note ---
Assessment and Plan - PAD - s/p Left femoral artery angioplasy, left femoral artery endoarterectomy and left femoral artery to post tibia artery bypass on 05/07/17 - IDDM: optimize control with increased levamir dose and continue with SSI, Consistent Carbohydrate diet - Hyperkalemia- corrected - Diabetic Left gangrene : revascularization and local wound care - Diabetic peripheral Neuropathy: Continue with Gabapentin - Ischemic cardiomyopathy with EF 40-45% as at 2016 - Dysipidemia: On statin DVT and GI PPx with heparing and pepcid Subjective Date of service: 05/09/17 Principal diagnosis: PAD, T2DM Interval history: Pt with T2DM, PAD s/p Left femoral artery angioplasy, left femoral artery endoarterectomy and left femoral artery to post tibia artery bypass done Objective - Constitutional Vitals: Vital Signs - 12hr 05/08/17 05/08/17 05/08/17 20:00 20:39 21:53 Temperature 100.2 F H Pulse Rate Pulse Rate [ 85 85 From Monitor] Respiratory 18 18 Rate Blood Pressure 105/52 [Left Arm] O2 Sat by Pulse 95 95 99 Oximetry 05/08/17 05/08/17 05/09/17 22:00 23:27 00:45 Temperature 100.2 F H 99.6 F Pulse Rate 84 Pulse Rate [ 85 85 From Monitor] Respiratory 18 18 18 Rate Blood Pressure 108/54 108/54 [Left Arm] O2 Sat by Pulse 95 95 Oximetry General appearance: Present: no acute distress, well-nourished - EENT Eyes: PERRL, EOM intact - Neck Neck: supple, normal ROM - Respiratory Respiratory effort: normal Respiratory: bilateral: CTA - Cardiovascular Rhythm: regular Heart Sounds: Present: S1 & S2. Absent: gallop, rub Extremities: pulses intact, No edema, normal color, Full ROM - Gastrointestinal General gastrointestinal: Present: soft, non-tender, non-distended, normal bowel sounds - Integumentary Integumentary: clear, warm, dry - Musculoskeletal Musculoskeletal: 1, strength equal bilaterally - Neurologic Neurologic: moves all extremities - Psychiatric Psychiatric: memory intact, appropriate mood/affect, intact judgment & insight - Labs CBC & Chem 7: 05/08/17 13:07 05/08/17 04:23 Labs: Abnormal lab results 05/07/17 05/07/17 05/07/17 Range/Units 11:48 16:11 16:44 POC Hgb 11.6 L (12-17) POC Hct 34 L (38-51) Heparin Anti-Xa Level (0.3-0.7) U.I./ml POC Sodium 137 L (138-146) mmol/L POC Potassium 5.5 H 5.0 H (3.5-4.9) POC BUN 31 H 27 H (8-26) mg/dl POC Glucose 158 H 170 H (70-105) Crossmatch See Detail 05/08/17 05/08/17 05/08/17 Range/Units 07:57 12:01 15:42 POC Hgb (12-17) POC Hct (38-51) Heparin Anti-Xa Level (0.3-0.7) U.I./ml POC Sodium (138-146) mmol/L POC Potassium (3.5-4.9) POC BUN (8-26) mg/dl POC Glucose 258 H 282 H 280 H (70-105) Crossmatch 05/08/17 05/08/17 05/09/17 Range/Units 19:44 21:39 01:52 POC Hgb (12-17) POC Hct (38-51) Heparin Anti-Xa Level 0.25 L 0.29 L (0.3-0.7) U.I./ml POC Sodium (138-146) mmol/L POC Potassium (3.5-4.9) POC BUN (8-26) mg/dl POC Glucose 329 H (70-105) Crossmatch
[2017-05-09] MEDS: NOVOLOG SUB-Q SCH ×4 (08:33→22:17)
[2017-05-09] MEDS: FOLBEE PLUS CZ PO SCH (09:32)
[2017-05-09] MEDS: TOPROL XL PO SCH (09:32)
[2017-05-09] MEDS: ZESTRIL PO SCH (09:32)
[2017-05-09] MEDS: PEPCID PO SCH (09:32)
[2017-05-09] MEDS: PLAVIX PO SCH (09:32)
[2017-05-09] MEDS: LYRICA PO SCH ×2 (09:33)
--- NOTE | 2017-05-09 09:54 | Progress Note ---
Assessment and Plan Nuclear stress test showing no ischemia, fixed inferior and inferolateral wall defect consistent with prior IA, LVEF 46% Echo showing LVEF 40-45% with inferior wall hypokinesis and mild aortic stenosis CAD s/p CABG Nuclear stress test showing no ischemia, fixed inferior and inferolateral wall defect consistent with prior IA, LVEF 46% Echo showing LVEF 40-45% with inferior wall hypokinesis and mild aortic stenosis Hyperlipidemia Hypertension PVD with foot gangrene on IV heparin s/p Diagnostic Left Lower Extremity Arteriogram, Angioplasty and Stent of Left External Leg Artery, left Femoral Endarterectomy, and Left Femoral Artery to Posterior Tibial Artery Bypass With In Situ Left Greater Saphenous Vein Graft Recommendations: Medical therapy for coronary artery disease. Otherwise, conservative cardiac management. Subjective Date of service: 05/09/17 Principal diagnosis: PAD, T2DM Interval history: Patient sitting up in bedside chair. He denies chest pain and shortness of breath. Objective Vital Signs Temp Pulse Pulse Resp BP BP Pulse Ox 05/09/17 09:32 91 H 107/58 05/09/17 08:26 95 05/09/17 00:45 99.6 F 85 18 108/54 95 05/08/17 23:27 18 05/08/17 22:00 100.2 F H 84 85 18 108/54 95 05/08/17 21:53 99 05/08/17 20:39 100.2 F H 85 18 105/52 95 05/08/17 20:00 85 18 95 05/08/17 16:31 86 21 142/61 95 05/08/17 16:21 84 21 142/61 94 05/08/17 16:11 84 22 142/61 95 05/08/17 16:00 85 23 142/61 95 05/08/17 15:51 85 23 144/57 94 05/08/17 15:48 98.8 F 05/08/17 15:41 85 22 144/57 95 05/08/17 15:38 84 22 94 05/08/17 15:31 85 22 144/57 94 05/08/17 15:21 86 21 144/57 95 05/08/17 15:15 22 05/08/17 15:11 84 22 144/57 97 05/08/17 15:00 85 21 144/57 96 05/08/17 14:51 86 21 137/57 95 05/08/17 14:41 88 24 137/57 95 05/08/17 14:31 86 21 137/57 96 05/08/17 14:21 86 21 137/57 93 05/08/17 14:15 25 H 05/08/17 14:11 86 22 137/57 95 05/08/17 14:00 85 25 H 137/57 96 05/08/17 13:51 87 20 146/50 95 05/08/17 13:41 86 22 146/50 95 05/08/17 13:31 85 23 146/50 93 05/08/17 13:21 88 17 146/50 94 05/08/17 13:11 86 25 H 146/50 93 05/08/17 13:00 86 16 146/50 93 05/08/17 12:51 86 24 124/48 93 05/08/17 12:41 88 20 124/48 93 05/08/17 12:31 86 22 124/48 96 05/08/17 12:21 84 22 124/48 92 05/08/17 12:11 86 15 138/50 98 05/08/17 12:00 98.5 F 84 22 138/50 93 05/08/17 11:51 110 H 21 124/48 94 05/08/17 11:41 86 23 124/48 91 05/08/17 11:31 87 9 L 124/48 05/08/17 11:21 85 14 124/48 96 05/08/17 11:11 86 10 L 124/48 94 05/08/17 11:00 84 21 124/48 97 05/08/17 10:51 86 15 133/63 95 05/08/17 10:41 86 16 133/63 96 05/08/17 10:31 85 15 133/63 98 05/08/17 10:21 86 10 L 133/63 95 05/08/17 10:11 86 23 116/53 94 05/08/17 10:00 88 17 116/53 96 - Physical Examination General: No Apparent Distress HEENT: Positive: PERRL Neck: Positive: trachea midline Cardiac: Positive: Reg Rate and Rhythm - Labs and Meds Coagulation 05/08/17 Range/Units 13:07 PT 14.1 (12.2-14.9) Sec. INR 1.04 (0.87-1.13) APTT 32.0 (24.2-36.6) Sec. CBC 05/08/17 Range/Units 13:07 Hgb 12.4 (11.8-15.2) gm/dl Hct 37.5 (35.5-45.6) % Plt Count 202 (140-440) K/mm3
[2017-05-09] MEDS: COLACE PO SCH ×2 (10:00→22:15)
[2017-05-09] MEDS: SENOKOT PO SCH ×2 (10:00→22:15)
[2017-05-09] MEDS ORDERED: LEVEMIR SUB-Q ONE (10:00)
[2017-05-09] MEDS: MORPHINE IV PRN ×2 (12:25→19:56)
[2017-05-09] MEDS: MIRALAX 3350 PO PRN (12:25)
--- NOTE | 2017-05-09 16:18 | Progress Note ---
Assessment and Plan Patient appears to be doing well postoperatively. He has gangrenous changes to the left second toe, which will require a ray amputation. This will be scheduled for Sunday. Discussed with the pt who states understanding and agrees. 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 He has a moderate amount of incisional discomfort which is controlled with analgesics. Out of bed earlier today with assistance. Objective - Constitutional Vitals: Vital Signs - 12hr 05/09/17 05/09/17 05/09/17 08:26 09:32 10:00 Temperature 99.6 F Pulse Rate 91 H 88 Pulse Rate [ 91 H From Monitor] Respiratory 20 Rate Blood Pressure 107/58 Blood Pressure 107/58 [Left Arm] O2 Sat by Pulse 95 97 Oximetry General appearance: Present: no acute distress - EENT Eyes: EOM intact ENT: hearing intact - Respiratory Respiratory effort: normal Extremities: no ischemia, abnormal (bandages removed, incisions intact, arpit in place, no erythema or drainage appreciated. Audible Doppler signal at the posterior tibial > dorsalis pedis.) - Neurologic Neurologic: no focal deficits - Psychiatric Psychiatric: appropriate mood/affect, intact judgment & insight, cooperative - Labs CBC & Chem 7: 05/08/17 13:07 05/08/17 04:23 Labs: Abnormal lab results 05/07/17 05/08/17 05/08/17 Range/Units 11:48 15:42 19:44 Heparin Anti-Xa Level 0.25 L (0.3-0.7) U.I./ml POC Glucose 280 H (70-105) Crossmatch See Detail 05/08/17 05/09/17 05/09/17 Range/Units 21:39 01:52 08:27 Heparin Anti-Xa Level 0.29 L (0.3-0.7) U.I./ml POC Glucose 329 H 187 H (70-105) Crossmatch 05/09/17 Range/Units 12:02 Heparin Anti-Xa Level (0.3-0.7) U.I./ml POC Glucose 190 H (70-105) Crossmatch
--- NOTE | 2017-05-09 16:40 | Progress Note ---
Assessment and Plan No complaint of chest pain or shortness of breath. On room air. O2 saturation 97 % - Patient Problems (1) Acute deep vein thrombosis (DVT) of left peroneal vein Onset Date: 07/13/16 Current Visit: No Status: Acute Plan to address problem: Patient is on I/V Heparin. Monitor Heparin anti Xa level. Todays heparin Anti xa level .42. (2) CAD (coronary artery disease) Current Visit: Yes Status: Chronic Qualifiers: Coronary Disease-Associated Artery/Lesion type: [place] artery [place] vs. transplanted heart: N Associated angina: without angina Plan to address problem: Mangement as per cardiology. (3) IDDM (insulin dependent diabetes mellitus) Current Visit: Yes Status: Chronic Plan to address problem: Management as per primary care. (4) Peripheral neuropathy Current Visit: Yes Status: Chronic Qualifiers: Peripheral neuropathy type: polyneuropathy associated with underlying disease Qualified Code(s): G63 - Polyneuropathy in diseases classified elsewhere Plan to address problem: Management as per primary care. (5) Hypertension Onset Date: 07/13/16 Current Visit: No Status: Chronic Qualifiers: Hypertension type: essential hypertension Qualified Code(s): I10 - Essential (primary) hypertension Plan to address problem: Management as per primary care. Subjective Date of service: 05/09/17 Principal diagnosis: PAD, T2DM Interval history: No complaint of chest pain or shortness of breath. On room air. O2 saturation 97 % Objective Vital Signs - 12hr 05/09/17 05/09/17 05/09/17 08:26 09:32 10:00 Temperature 99.6 F Pulse Rate 91 H 88 Pulse Rate [ 91 H From Monitor] Respiratory 20 Rate Blood Pressure 107/58 Blood Pressure 107/58 [Left Arm] O2 Sat by Pulse 95 97 Oximetry Constitutional: no acute distress, alert Eyes: non-icteric ENT: oropharynx moist Neck: supple, no lymphadenopathy Ascultation: Bilateral: diminished breath sounds Cardiovascular: regular rate and rhythm Gastrointestinal: normoactive bowel sounds, soft, non-tender Integumentary: cellulitis (Left foot.) CBC and BMP: 05/08/17 13:07 05/08/17 04:23 ABG, PT/INR, D-dimer: PT/INR, D-dimer PT 14.1 Sec. (12.2-14.9) 05/08/17 13:07 INR 1.04 (0.87-1.13) 05/08/17 13:07 Abnormal lab findings: Abnormal Labs 05/01/17 05/01/17 05/01/17 14:55 14:55 14:55 WBC 12.0 H POC Hgb POC Hct RDW 12.9 L Lymph % (Auto) 6.3 L [place] % (Auto) Lymph # 0.8 L [place] # 0.9 H Seg Neutrophils % 85.9 H Lymphocytes % (Manual) Monocytes % (Manual) Seg Neutrophils # 10.3 H INR 1.15 H APTT 37.7 H Heparin Anti-Xa Level POC Sodium POC Potassium Sodium Potassium Chloride 97.8 L Carbon Dioxide POC BUN BUN 23 H Glucose 321 H POC Glucose Hemoglobin A1c Calcium Albumin Crossmatch 05/01/17 05/01/17 05/02/17 18:32 21:49 03:51 WBC POC Hgb POC Hct RDW 12.8 L Lymph % (Auto) [place] % (Auto) 12.4 H Lymph # [place] # 1.0 H Seg Neutrophils % Lymphocytes % (Manual) Monocytes % (Manual) Seg Neutrophils # INR APTT Heparin Anti-Xa Level POC Sodium POC Potassium Sodium Potassium Chloride Carbon Dioxide POC BUN BUN Glucose POC Glucose 247 H 280 H Hemoglobin A1c Calcium Albumin Crossmatch 05/02/17 05/02/17 05/02/17 03:51 03:51 07:27 WBC POC Hgb POC Hct RDW Lymph % (Auto) [place] % (Auto) Lymph # [place] # Seg Neutrophils % Lymphocytes % (Manual) Monocytes % (Manual) Seg Neutrophils # INR APTT Heparin Anti-Xa Level 0.22 L POC Sodium POC Potassium Sodium Potassium Chloride Carbon Dioxide POC BUN BUN Glucose 136 H POC Glucose 115 H Hemoglobin A1c Calcium Albumin Crossmatch 05/02/17 05/02/17 05/02/17 11:50 20:33 21:56 WBC POC Hgb POC Hct RDW Lymph % (Auto) [place] % (Auto) Lymph # [place] # Seg Neutrophils % Lymphocytes % (Manual) Monocytes % (Manual) Seg Neutrophils # INR APTT Heparin Anti-Xa Level 0.24 L POC Sodium POC Potassium Sodium Potassium Chloride Carbon Dioxide POC BUN BUN Glucose POC Glucose 165 H 248 H Hemoglobin A1c Calcium Albumin Crossmatch 05/03/17 05/03/17 05/03/17 03:23 05:14 05:14 WBC POC Hgb POC Hct RDW 12.8 L Lymph % (Auto) [place] % (Auto) 14.1 H Lymph # [place] # 1.2 H Seg Neutrophils % Lymphocytes % (Manual) Monocytes % (Manual) Seg Neutrophils # INR APTT 101.1 H* Heparin Anti-Xa Level POC Sodium POC Potassium Sodium 136 L Potassium Chloride Carbon Dioxide POC BUN BUN Glucose 116 H POC Glucose Hemoglobin A1c Calcium Albumin 3.0 L Crossmatch 05/03/17 05/03/17 05/03/17 05:14 11:48 11:51 WBC POC Hgb POC Hct RDW Lymph % (Auto) [place] % (Auto) Lymph # [place] # Seg Neutrophils % Lymphocytes % (Manual) Monocytes % (Manual) Seg Neutrophils # INR APTT Heparin Anti-Xa Level 0.26 L POC Sodium POC Potassium Sodium Potassium Chloride Carbon Dioxide POC BUN BUN Glucose POC Glucose 128 H Hemoglobin A1c 10.2 H Calcium Albumin Crossmatch 05/03/17 05/03/17 05/04/17 18:50 22:17 04:02 WBC POC Hgb POC Hct RDW 12.9 L Lymph % (Auto) [place] % (Auto) Lymph # [place] # Seg Neutrophils % Lymphocytes % (Manual) 13.0 L Monocytes % (Manual) 9.0 H Seg Neutrophils # INR APTT Heparin Anti-Xa Level POC Sodium POC Potassium Sodium Potassium Chloride Carbon Dioxide POC BUN BUN Glucose POC Glucose 314 H 312 H Hemoglobin A1c Calcium Albumin Crossmatch 05/04/17 05/04/17 05/04/17 04:02 07:49 11:54 WBC POC Hgb POC Hct RDW Lymph % (Auto) [place] % (Auto) Lymph # [place] # Seg Neutrophils % Lymphocytes % (Manual) Monocytes % (Manual) Seg Neutrophils # INR APTT Heparin Anti-Xa Level POC Sodium POC Potassium Sodium 134 L Potassium 5.2 H Chloride 96.2 L Carbon Dioxide POC BUN BUN 21 H Glucose 251 H POC Glucose 177 H 186 H Hemoglobin A1c Calcium Albumin 3.0 L Crossmatch 05/04/17 05/04/17 05/05/17 17:46 22:51 05:09 WBC POC Hgb POC Hct RDW Lymph % (Auto) [place] % (Auto) Lymph # [place] # Seg Neutrophils % Lymphocytes % (Manual) Monocytes % (Manual) Seg Neutrophils # INR APTT Heparin Anti-Xa Level POC Sodium POC Potassium Sodium 135 L Potassium Chloride Carbon Dioxide POC BUN BUN Glucose 179 H POC Glucose 244 H 265 H Hemoglobin A1c Calcium Albumin 2.9 L Crossmatch 05/05/17 05/05/17 05/05/17 05:09 07:39 11:24 WBC POC Hgb POC Hct RDW Lymph % (Auto) [place] % (Auto) Lymph # [place] # Seg Neutrophils % Lymphocytes % (Manual) Monocytes % (Manual) Seg Neutrophils # INR APTT Heparin Anti-Xa Level 0.15 L 0.29 L POC Sodium POC Potassium Sodium Potassium Chloride Carbon Dioxide POC BUN BUN Glucose POC Glucose 153 H Hemoglobin A1c Calcium Albumin Crossmatch 05/05/17 05/05/17 05/05/17 11:53 16:33 22:05 WBC POC Hgb POC Hct RDW Lymph % (Auto) [place] % (Auto) Lymph # [place] # Seg Neutrophils % Lymphocytes % (Manual) Monocytes % (Manual) Seg Neutrophils # INR APTT Heparin Anti-Xa Level POC Sodium POC Potassium Sodium Potassium Chloride Carbon Dioxide POC BUN BUN Glucose POC Glucose 171 H 317 H 313 H Hemoglobin A1c Calcium Albumin Crossmatch 05/06/17 05/06/17 05/06/17 07:32 11:47 16:28 WBC POC Hgb POC Hct RDW Lymph % (Auto) [place] % (Auto) Lymph # [place] # Seg Neutrophils % Lymphocytes % (Manual) Monocytes % (Manual) Seg Neutrophils # INR APTT Heparin Anti-Xa Level POC Sodium POC Potassium Sodium Potassium Chloride Carbon Dioxide POC BUN BUN Glucose POC Glucose 176 H 210 H 283 H Hemoglobin A1c Calcium Albumin Crossmatch 05/06/17 05/07/17 05/07/17 21:33 03:56 07:11 WBC POC Hgb POC Hct RDW Lymph % (Auto) [place] % (Auto) Lymph # [place] # Seg Neutrophils % Lymphocytes % (Manual) Monocytes % (Manual) Seg Neutrophils # INR APTT Heparin Anti-Xa Level 0.10 L POC Sodium POC Potassium Sodium Potassium Chloride Carbon Dioxide POC BUN BUN Glucose POC Glucose 264 H 276 H Hemoglobin A1c Calcium Albumin Crossmatch 05/07/17 05/07/17 05/07/17 11:48 11:48 16:11 WBC POC Hgb POC Hct RDW Lymph % (Auto) [place] % (Auto) Lymph # [place] # Seg Neutrophils % Lymphocytes % (Manual) Monocytes % (Manual) Seg Neutrophils # INR APTT Heparin Anti-Xa Level POC Sodium 137 L POC Potassium 5.5 H Sodium Potassium Chloride Carbon Dioxide POC BUN 31 H BUN Glucose POC Glucose 128 H 158 H Hemoglobin A1c Calcium Albumin Crossmatch See Detail 05/07/17 05/07/17 05/07/17 16:44 20:28 22:47 WBC POC Hgb 11.6 L POC Hct 34 L RDW Lymph % (Auto) [place] % (Auto) Lymph # [place] # Seg Neutrophils % Lymphocytes % (Manual) Monocytes % (Manual) Seg Neutrophils # INR APTT Heparin Anti-Xa Level POC Sodium POC Potassium 5.0 H Sodium Potassium Chloride Carbon Dioxide POC BUN 27 H BUN Glucose POC Glucose 170 H 203 H 253 H Hemoglobin A1c Calcium Albumin Crossmatch 05/08/17 05/08/17 05/08/17 04:23 07:57 12:01 WBC POC Hgb POC Hct RDW Lymph % (Auto) [place] % (Auto) Lymph # [place] # Seg Neutrophils % Lymphocytes % (Manual) Monocytes % (Manual) Seg Neutrophils # INR APTT Heparin Anti-Xa Level POC Sodium POC Potassium Sodium Potassium 5.3 H D Chloride Carbon Dioxide 19 L POC BUN BUN 29 H Glucose 223 H POC Glucose 258 H 282 H Hemoglobin A1c Calcium 8.2 L Albumin Crossmatch 05/08/17 05/08/17 05/08/17 15:42 19:44 21:39 WBC POC Hgb POC Hct RDW Lymph % (Auto) [place] % (Auto) Lymph # [place] # Seg Neutrophils % Lymphocytes % (Manual) Monocytes % (Manual) Seg Neutrophils # INR APTT Heparin Anti-Xa Level 0.25 L POC Sodium POC Potassium Sodium Potassium Chloride Carbon Dioxide POC BUN BUN Glucose POC Glucose 280 H 329 H Hemoglobin A1c Calcium Albumin Crossmatch 05/09/17 05/09/17 05/09/17 01:52 08:27 12:02 WBC POC Hgb POC Hct RDW Lymph % (Auto) [place] % (Auto) Lymph # [place] # Seg Neutrophils % Lymphocytes % (Manual) Monocytes % (Manual) Seg Neutrophils # INR APTT Heparin Anti-Xa Level 0.29 L POC Sodium POC Potassium Sodium Potassium Chloride Carbon Dioxide POC BUN BUN Glucose POC Glucose 187 H 190 H Hemoglobin A1c Calcium Albumin Crossmatch Chest x-ray: report reviewed (No acute cardiopulmonary process.), image reviewed
[2017-05-09] MEDS: TYLENOL PO PRN (22:15)
[2017-05-09] MEDS: LEVEMIR SUB-Q SCH (22:17)
[2017-05-09] MEDS: HEPARIN/ 0.45% NACL-25,000 UNIT/500 ML 25,000 UNIT/500 ML BAG IV SCH (22:18)
[2017-05-10] MEDS: NORCO 5/325 PO PRN ×4 (03:46→23:29)
[2017-05-10 04:34] LABS: Basophils % (Auto) 0.2 % (0.0-1.8); Eosinophils % (Auto) 0.6 % (0.0-4.3); Hematocrit 31.9 % (35.5-45.6); Hemoglobin 10.8 gm/dl (11.8-15.2); Mean Corpuscular HGB Conc 34 % (32-34); Mean Corpuscular Hemoglobin 30 pg (28-32); Mean Corpuscular Volume 88 fl (84-94); Platelet Count 199 K/mm3 (140-440); Red Blood Count 3.61 M/mm3 (3.65-5.03); Red Cell Distribution Width 13.1 % (13.2-15.2); White Blood Count 13.4 K/mm3 (4.5-11.0)
[2017-05-10 04:48] LABS: Alanine Aminotransferase 46 units/L (7-56); Albumin 2.2 g/dL (3.9-5); Albumin/Globulin Ratio 0.5 %; Alkaline Phosphatase 49 units/L (35-129); Anion Gap 18 mmol/L; BUN/Creatinine Ratio 21.11; Blood Urea Nitrogen 19 mg/dL (9-20); Calcium 8.2 mg/dL (8.4-10.2); Carbon Dioxide 21 mmol/L (22-30); Chloride 99.6 mmol/L (98-107); Glucose 171 mg/dL (75-100); Potassium 4.5 mmol/L (3.6-5.0); Sodium 134 mmol/L (137-145); Total Protein 6.3 g/dL (6.3-8.2)
[2017-05-10] MEDS: NOVOLOG SUB-Q SCH ×4 (07:30→22:41)
--- NOTE | 2017-05-10 08:26 | Progress Note ---
Assessment and Plan - PAD - s/p Left femoral artery angioplasy, left femoral artery endoarterectomy and left femoral artery to post tibia artery bypass on 05/07/17 - IDDM: controlled with Levamir and SSI - Hyperkalemia- corrected - Diabetic Left gangrene : revascularization and local wound care - Diabetic peripheral Neuropathy: Continue with Gabapentin - Ischemic cardiomyopathy with EF 40-45% as at 2016 - Dysipidemia: On statin DVT and GI PPx with heparing and pepcid Subjective Date of service: 05/10/17 Principal diagnosis: PAD, T2DM Interval history: Pt with T2DM, PAD s/p Left femoral artery angioplasy, left femoral artery endoarterectomy and left femoral artery to post tibia artery bypass done doing well Objective - Constitutional Vitals: Vital Signs - 12hr 05/09/17 05/10/17 05/10/17 22:00 03:00 04:00 Temperature 100 F H 98.8 F Pulse Rate 85 Pulse Rate [ 91 H 90 From Monitor] Respiratory 18 18 Rate Blood Pressure 122/53 128/60 [Left Arm] O2 Sat by Pulse 98 Oximetry 05/10/17 07:39 Temperature Pulse Rate Pulse Rate [ From Monitor] Respiratory Rate Blood Pressure [Left Arm] O2 Sat by Pulse 96 Oximetry General appearance: Present: no acute distress, well-nourished - EENT Eyes: PERRL, EOM intact Ears: bilateral: normal - Neck Neck: supple, normal ROM - Respiratory Respiratory effort: normal Respiratory: bilateral: CTA - Breasts Breasts: normal - Cardiovascular Rhythm: regular Heart Sounds: Present: S1 & S2. Absent: gallop, rub Extremities: pulses intact, No edema, normal color, Full ROM - Gastrointestinal General gastrointestinal: Present: soft, non-tender, non-distended, normal bowel sounds - Genitourinary Male genitourinary: normal - Integumentary Integumentary: clear, warm, dry - Musculoskeletal Musculoskeletal: 1, strength equal bilaterally - Neurologic Neurologic: moves all extremities - Psychiatric Psychiatric: memory intact, appropriate mood/affect, intact judgment & insight - Labs CBC & Chem 7: 05/10/17 03:41 05/10/17 03:41 Labs: Abnormal lab results 05/09/17 05/09/17 05/09/17 Range/Units 08:27 12:02 16:42 WBC (4.5-11.0) K/mm3 RBC (3.65-5.03) M/mm3 Hgb (11.8-15.2) gm/dl Hct (35.5-45.6) % RDW (13.2-15.2) % Lymph % (Auto) (13.4-35.0) % [place] % (Auto) (0.0-7.3) % [place] # (0.0-0.8) K/mm3 Seg Neutrophils % (40.0-70.0) % Seg Neutrophils # (1.8-7.7) K/mm3 Sodium (137-145) mmol/L Carbon Dioxide (22-30) mmol/L Glucose (75-100) mg/dL POC Glucose 187 H 190 H 245 H (70-105) Calcium (8.4-10.2) mg/dL AST (5-40) units/L Albumin (3.9-5) g/dL 05/09/17 05/10/17 05/10/17 Range/Units 21:58 03:41 03:41 WBC 13.4 H (4.5-11.0) K/mm3 RBC 3.61 L (3.65-5.03) M/mm3 Hgb 10.8 L (11.8-15.2) gm/dl Hct 31.9 L (35.5-45.6) % RDW 13.1 L (13.2-15.2) % Lymph % (Auto) 12.9 L (13.4-35.0) % [place] % (Auto) 12.2 H (0.0-7.3) % [place] # 1.6 H (0.0-0.8) K/mm3 Seg Neutrophils % 74.1 H (40.0-70.0) % Seg Neutrophils # 10.0 H (1.8-7.7) K/mm3 Sodium 134 L (137-145) mmol/L Carbon Dioxide 21 L (22-30) mmol/L Glucose 171 H (75-100) mg/dL POC Glucose 344 H (70-105) Calcium 8.2 L (8.4-10.2) mg/dL AST 51 H (5-40) units/L Albumin 2.2 L (3.9-5) g/dL 06/29/17 Range/Units 07:31 WBC (4.5-11.0) K/mm3 RBC (3.65-5.03) M/mm3 Hgb (11.8-15.2) gm/dl Hct (35.5-45.6) % RDW (13.2-15.2) % Lymph % (Auto) (13.4-35.0) % [place] % (Auto) (0.0-7.3) % [place] # (0.0-0.8) K/mm3 Seg Neutrophils % (40.0-70.0) % Seg Neutrophils # (1.8-7.7) K/mm3 Sodium (137-145) mmol/L Carbon Dioxide (22-30) mmol/L Glucose (75-100) mg/dL POC Glucose 127 H (70-105) Calcium (8.4-10.2) mg/dL AST (5-40) units/L Albumin (3.9-5) g/dL
[2017-05-10] MEDS: SENOKOT PO SCH ×2 (09:27→22:42)
[2017-05-10] MEDS: LYRICA PO SCH ×2 (09:27)
[2017-05-10] MEDS: COLACE PO SCH ×2 (09:27→22:42)
[2017-05-10] MEDS: ZESTRIL PO SCH (09:28)
[2017-05-10] MEDS: TOPROL XL PO SCH (09:28)
[2017-05-10] MEDS: PLAVIX PO SCH (09:28)
[2017-05-10] MEDS: PEPCID PO SCH (09:28)
[2017-05-10] MEDS: FOLBEE PLUS CZ PO SCH (09:28)
--- NOTE | 2017-05-10 10:28 | Progress Note ---
Assessment and Plan PVD with foot gangrene on IV heparin s/p Diagnostic Left Lower Extremity Arteriogram, Angioplasty and Stent of Left External Leg Artery, left Femoral Endarterectomy, and Left Femoral Artery to Posterior Tibial Artery Bypass With In Situ Left Greater Saphenous Vein Graft CAD s/p CABG Nuclear stress test showing no ischemia, fixed inferior and inferolateral wall defect consistent with prior [place], LVEF 46% Echo showing LVEF 40-45% with inferior wall hypokinesis and mild aortic stenosis Hyperlipidemia Hypertension Recommendations: Medical therapy for coronary artery disease. Otherwise, conservative cardiac management. Subjective Date of service: 05/10/17 Principal diagnosis: PAD, T2DM Interval history: Patient is resting in bed comfortably. He has no cardiac complaints. Objective Vital Signs Temp Pulse Pulse Resp BP BP Pulse Ox 05/10/17 09:36 99.6 F 87 18 162/75 100 05/10/17 09:28 87 162/75 05/10/17 07:39 96 05/10/17 04:00 85 05/10/17 03:00 98.8 F 90 18 128/60 05/09/17 22:00 100 F H 91 H 18 122/53 98 - Physical Examination General: No Apparent Distress HEENT: Positive: PERRL Neck: Positive: trachea midline Neuro: Positive: Grossly Intact Abdomen: Positive: Soft Extremities: Present: Ulceration Noted - Labs and Meds Cardiac Enzymes 05/10/17 Range/Units 03:41 AST 51 H (5-40) units/L CBC 05/10/17 Range/Units 03:41 WBC 13.4 H (4.5-11.0) K/mm3 RBC 3.61 L (3.65-5.03) M/mm3 Hgb 10.8 L (11.8-15.2) gm/dl Hct 31.9 L (35.5-45.6) % Plt Count 199 (140-440) K/mm3 Lymph # 1.7 (1.2-5.4) K/mm3 [place] # 1.6 H (0.0-0.8) K/mm3 Eos # 0.1 (0.0-0.4) K/mm3 Baso # 0.0 (0.0-0.1) K/mm3 Comprehensive Metabolic Panel 05/10/17 Range/Units 03:41 Sodium 134 L (137-145) mmol/L Potassium 4.5 (3.6-5.0) mmol/L Chloride 99.6 (98-107) mmol/L Carbon Dioxide 21 L (22-30) mmol/L BUN 19 (9-20) mg/dL Creatinine 0.9 (0.8-1.5) mg/dL Glucose 171 H (75-100) mg/dL Calcium 8.2 L (8.4-10.2) mg/dL AST 51 H (5-40) units/L ALT 46 (7-56) units/L Alkaline Phosphatase 49 (35-129) units/L Total Protein 6.3 (6.3-8.2) g/dL Albumin 2.2 L (3.9-5) g/dL
[2017-05-10] MEDS: MORPHINE IV PRN (12:26)
[2017-05-10] MEDS: HEPARIN/ 0.45% NACL-25,000 UNIT/500 ML 25,000 UNIT/500 ML BAG IV SCH (15:19)
--- NOTE | 2017-05-10 16:16 | Anesthesia Consultation ---
Anesthesia Consult and Med Hx Date of service: 05/11/17 - Airway Anesthetic Teeth Evaluation: Dentures ROM Head & Neck: Adequate Mental/Hyoid Distance: Adequate Mallampati Class: Class II Intubation Access Assessment: Probably Good - Pulmonary Exam CTA: Yes - Cardiac Exam Cardiac Exam: RRR - Pre-Operative Health Status ASA Pre-Surgery Classification: ASA3 Proposed Anesthetic Plan: General - Pulmonary Hx Smoking: Yes (STOPPED 1984 , 1/2 PPD X 25 YRS) Hx Sleep Apnea: No (LOREN PRE SCREEN HIGH RISK) - Cardiovascular System Hx Hypertension: Yes (EF 40-45%, inferior wall hypokinesis) Hx Coronary Artery Disease: Yes (CABG 2005 x 3v) Hx Heart Attack/AMI: Yes Hx Angina: Yes (RARE,NITRO USES 3 YRS AGO) Hx Percutaneous Transluminal Coronary Angioplasty (PTCA): Yes (stents 2002) Hx Cardia Arrhythmia: No Hx Peripheral Vascular Disease: Yes (arterial and DVT (2016)) - Central Nervous System Hx Neuromuscular Disorder: Yes (bilateral LE neuropathy) Hx Psychiatric Problems: No - Gastrointestinal Hx Gastroesophageal Reflux Disease: No - Endocrine Hx Renal Disease: Yes (h/o kidney stones) Hx Insulin Dependent Diabetes: Yes Hx Thyroid Disease: No - Hematic Hx Anemia: No Hx Sickle Cell Disease: No - Other Systems Hx Alcohol Use: No Hx Substance Use: No Hx Cancer: No Hx Obesity: No - Additional Comments Anesthesia Medical History Comments: "difficult to put to sleep", patient becomes extremely combative with all narcotics. Patient has been receiving Morphine on the floor without issue.
--- NOTE | 2017-05-10 17:35 | Progress Note ---
Assessment and Plan Will schedule patient for left second toe amputation tomorrow. The risks benefits and alternatives to this procedure were discussed in detail and the patient states understanding and has agreed to proceed. - Patient Problems (1) Atherosclerosis of [place] arteries of the extremities with ulceration Onset Date: 08/22/16 Current Visit: No Status: Acute (2) Ischemia of left lower extremity Current Visit: Yes Status: Acute Subjective Date of service: 05/10/17 Principal diagnosis: PAD, T2DM Interval history: Patient is awake and alert without specific complaint at present. Objective - Constitutional Vitals: Vital Signs - 12hr 05/10/17 05/10/17 05/10/17 07:39 09:28 09:36 Temperature 99.6 F Pulse Rate 87 Pulse Rate [ 87 From Monitor] Respiratory 18 Rate Blood Pressure 162/75 Blood Pressure 162/75 [Left Arm] O2 Sat by Pulse 96 100 Oximetry 05/10/17 10:00 Temperature 99.2 F Pulse Rate 78 Pulse Rate [ 67 From Monitor] Respiratory 18 Rate Blood Pressure Blood Pressure 125/63 [Left Arm] O2 Sat by Pulse 96 Oximetry General appearance: Present: no acute distress - EENT Eyes: EOM intact ENT: hearing intact - Respiratory Respiratory effort: normal Extremities: no ischemia, normal temperature, abnormal (incisions intact without erythema or drainage appreciated.) Extremity abnormal: black (necrotic tissue at his left second toe site) - Neurologic Neurologic: no focal deficits - Psychiatric Psychiatric: appropriate mood/affect, intact judgment & insight, cooperative - Labs CBC & Chem 7: 05/10/17 03:41 05/10/17 03:41 Labs: Abnormal lab results 05/09/17 05/10/17 05/10/17 Range/Units 21:58 03:41 03:41 WBC 13.4 H (4.5-11.0) K/mm3 RBC 3.61 L (3.65-5.03) M/mm3 Hgb 10.8 L (11.8-15.2) gm/dl Hct 31.9 L (35.5-45.6) % RDW 13.1 L (13.2-15.2) % Lymph % (Auto) 12.9 L (13.4-35.0) % [place] % (Auto) 12.2 H (0.0-7.3) % [place] # 1.6 H (0.0-0.8) K/mm3 Seg Neutrophils % 74.1 H (40.0-70.0) % Seg Neutrophils # 10.0 H (1.8-7.7) K/mm3 Sodium 134 L (137-145) mmol/L Carbon Dioxide 21 L (22-30) mmol/L Glucose 171 H (75-100) mg/dL POC Glucose 344 H (70-105) Calcium 8.2 L (8.4-10.2) mg/dL AST 51 H (5-40) units/L Albumin 2.2 L (3.9-5) g/dL 05/10/17 05/10/17 05/10/17 Range/Units 07:31 12:08 16:28 WBC (4.5-11.0) K/mm3 RBC (3.65-5.03) M/mm3 Hgb (11.8-15.2) gm/dl Hct (35.5-45.6) % RDW (13.2-15.2) % Lymph % (Auto) (13.4-35.0) % [place] % (Auto) (0.0-7.3) % [place] # (0.0-0.8) K/mm3 Seg Neutrophils % (40.0-70.0) % Seg Neutrophils # (1.8-7.7) K/mm3 Sodium (137-145) mmol/L Carbon Dioxide (22-30) mmol/L Glucose (75-100) mg/dL POC Glucose 127 H 172 H 197 H (70-105) Calcium (8.4-10.2) mg/dL AST (5-40) units/L Albumin (3.9-5) g/dL
--- NOTE | 2017-05-10 19:55 | Progress Note ---
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 bypass - no active bleeding - hemodynamically stable - follow H&H (2) IDDM (insulin dependent diabetes mellitus) Current Visit: Yes Status: Chronic Plan to address problem: - continue SSI - continue levimir at 40units sq qhs (3) Deep venous thrombosis of left peroneal vein Onset Date: 08/22/16 Current Visit: No Status: Acute Plan to address problem: - per vascular team (4) Discharge planning issues Current Visit: Yes Status: Acute Plan to address problem: - tentatively for repeat surgery and may need ICU admission thereafter ....will re-evaluate in am & prn Subjective Date of service: 05/10/17 Principal diagnosis: PVD s/p Angioplasty and Stenting; (L) Fep-WINE CELLAR WORKER bypass; DM; CHF Interval history: Seen and examined at bedside; 24 hour events reviewed; nursing and respiratory care staff consulted; no adverse overnight events reported to me; resting peacefully in bed; no active bleeding; denies acute chest pains or increased SOB Objective Vital Signs - 12hr 05/10/17 05/10/17 05/10/17 09:28 09:36 10:00 Temperature 99.6 F 99.2 F Pulse Rate 87 78 Pulse Rate [ 87 67 From Monitor] Respiratory 18 18 Rate Blood Pressure 162/75 Blood Pressure 162/75 125/63 [Left Arm] O2 Sat by Pulse 100 96 Oximetry Constitutional: no acute distress, alert Eyes: non-icteric ENT: oropharynx moist Neck: supple, no lymphadenopathy Ascultation: Bilateral: diminished breath sounds Cardiovascular: regular rate and rhythm Gastrointestinal: normoactive bowel sounds, soft, non-tender, non-distended Integumentary: cellulitis (Left foot.) Extremities: no cyanosis, no edema, no ischemia or petechiae, other (warm to touch) Neurologic: normal mental status, non-focal exam (grossly), pupils equal and round, motor strength normal and Psychiatric: mood appropriate, affect normal CBC and BMP: 05/11/17 05:03 05/11/17 05:03 ABG, PT/INR, D-dimer: PT/INR, D-dimer PT 14.1 Sec. (12.2-14.9) 05/08/17 13:07 INR 1.04 (0.87-1.13) 05/08/17 13:07 Abnormal lab findings: Abnormal Labs 05/01/17 05/01/17 05/01/17 14:55 14:55 14:55 WBC 12.0 H RBC Hgb POC Hgb Hct POC Hct RDW 12.9 L Lymph % (Auto) 6.3 L [place] % (Auto) Lymph # 0.8 L [place] # 0.9 H Seg Neutrophils % 85.9 H Lymphocytes % (Manual) Monocytes % (Manual) Seg Neutrophils # 10.3 H INR 1.15 H APTT 37.7 H Heparin Anti-Xa Level POC Sodium POC Potassium Sodium Potassium Chloride 97.8 L Carbon Dioxide POC BUN BUN 23 H Glucose 321 H POC Glucose Hemoglobin A1c Calcium AST Albumin Crossmatch 05/01/17 05/01/17 05/02/17 18:32 21:49 03:51 WBC RBC Hgb POC Hgb Hct POC Hct RDW 12.8 L Lymph % (Auto) [place] % (Auto) 12.4 H Lymph # [place] # 1.0 H Seg Neutrophils % Lymphocytes % (Manual) Monocytes % (Manual) Seg Neutrophils # INR APTT Heparin Anti-Xa Level POC Sodium POC Potassium Sodium Potassium Chloride Carbon Dioxide POC BUN BUN Glucose POC Glucose 247 H 280 H Hemoglobin A1c Calcium AST Albumin Crossmatch 05/02/17 05/02/17 05/02/17 03:51 03:51 07:27 WBC RBC Hgb POC Hgb Hct POC Hct RDW Lymph % (Auto) [place] % (Auto) Lymph # [place] # Seg Neutrophils % Lymphocytes % (Manual) Monocytes % (Manual) Seg Neutrophils # INR APTT Heparin Anti-Xa Level 0.22 L POC Sodium POC Potassium Sodium Potassium Chloride Carbon Dioxide POC BUN BUN Glucose 136 H POC Glucose 115 H Hemoglobin A1c Calcium AST Albumin Crossmatch 05/02/17 05/02/17 05/02/17 11:50 20:33 21:56 WBC RBC Hgb POC Hgb Hct POC Hct RDW Lymph % (Auto) [place] % (Auto) Lymph # [place] # Seg Neutrophils % Lymphocytes % (Manual) Monocytes % (Manual) Seg Neutrophils # INR APTT Heparin Anti-Xa Level 0.24 L POC Sodium POC Potassium Sodium Potassium Chloride Carbon Dioxide POC BUN BUN Glucose POC Glucose 165 H 248 H Hemoglobin A1c Calcium AST Albumin Crossmatch 05/03/17 05/03/17 05/03/17 03:23 05:14 05:14 WBC RBC Hgb POC Hgb Hct POC Hct RDW 12.8 L Lymph % (Auto) [place] % (Auto) 14.1 H Lymph # [place] # 1.2 H Seg Neutrophils % Lymphocytes % (Manual) Monocytes % (Manual) Seg Neutrophils # INR APTT 101.1 H* Heparin Anti-Xa Level POC Sodium POC Potassium Sodium 136 L Potassium Chloride Carbon Dioxide POC BUN BUN Glucose 116 H POC Glucose Hemoglobin A1c Calcium AST Albumin 3.0 L Crossmatch 05/03/17 05/03/17 05/03/17 05:14 11:48 11:51 WBC RBC Hgb POC Hgb Hct POC Hct RDW Lymph % (Auto) [place] % (Auto) Lymph # [place] # Seg Neutrophils % Lymphocytes % (Manual) Monocytes % (Manual) Seg Neutrophils # INR APTT Heparin Anti-Xa Level 0.26 L POC Sodium POC Potassium Sodium Potassium Chloride Carbon Dioxide POC BUN BUN Glucose POC Glucose 128 H Hemoglobin A1c 10.2 H Calcium AST Albumin Crossmatch 05/03/17 05/03/17 05/04/17 18:50 22:17 04:02 WBC RBC Hgb POC Hgb Hct POC Hct RDW 12.9 L Lymph % (Auto) [place] % (Auto) Lymph # [place] # Seg Neutrophils % Lymphocytes % (Manual) 13.0 L Monocytes % (Manual) 9.0 H Seg Neutrophils # INR APTT Heparin Anti-Xa Level POC Sodium POC Potassium Sodium Potassium Chloride Carbon Dioxide POC BUN BUN Glucose POC Glucose 314 H 312 H Hemoglobin A1c Calcium AST Albumin Crossmatch 05/04/17 05/04/17 05/04/17 04:02 07:49 11:54 WBC RBC Hgb POC Hgb Hct POC Hct RDW Lymph % (Auto) [place] % (Auto) Lymph # [place] # Seg Neutrophils % Lymphocytes % (Manual) Monocytes % (Manual) Seg Neutrophils # INR APTT Heparin Anti-Xa Level POC Sodium POC Potassium Sodium 134 L Potassium 5.2 H Chloride 96.2 L Carbon Dioxide POC BUN BUN 21 H Glucose 251 H POC Glucose 177 H 186 H Hemoglobin A1c Calcium AST Albumin 3.0 L Crossmatch 05/04/17 05/04/17 05/05/17 17:46 22:51 05:09 WBC RBC Hgb POC Hgb Hct POC Hct RDW Lymph % (Auto) [place] % (Auto) Lymph # [place] # Seg Neutrophils % Lymphocytes % (Manual) Monocytes % (Manual) Seg Neutrophils # INR APTT Heparin Anti-Xa Level POC Sodium POC Potassium Sodium 135 L Potassium Chloride Carbon Dioxide POC BUN BUN Glucose 179 H POC Glucose 244 H 265 H Hemoglobin A1c Calcium AST Albumin 2.9 L Crossmatch 05/05/17 05/05/17 05/05/17 05:09 07:39 11:24 WBC RBC Hgb POC Hgb Hct POC Hct RDW Lymph % (Auto) [place] % (Auto) Lymph # [place] # Seg Neutrophils % Lymphocytes % (Manual) Monocytes % (Manual) Seg Neutrophils # INR APTT Heparin Anti-Xa Level 0.15 L 0.29 L POC Sodium POC Potassium Sodium Potassium Chloride Carbon Dioxide POC BUN BUN Glucose POC Glucose 153 H Hemoglobin A1c Calcium AST Albumin Crossmatch 05/05/17 05/05/17 05/05/17 11:53 16:33 22:05 WBC RBC Hgb POC Hgb Hct POC Hct RDW Lymph % (Auto) [place] % (Auto) Lymph # [place] # Seg Neutrophils % Lymphocytes % (Manual) Monocytes % (Manual) Seg Neutrophils # INR APTT Heparin Anti-Xa Level POC Sodium POC Potassium Sodium Potassium Chloride Carbon Dioxide POC BUN BUN Glucose POC Glucose 171 H 317 H 313 H Hemoglobin A1c Calcium AST Albumin Crossmatch 05/06/17 05/06/17 05/06/17 07:32 11:47 16:28 WBC RBC Hgb POC Hgb Hct POC Hct RDW Lymph % (Auto) [place] % (Auto) Lymph # [place] # Seg Neutrophils % Lymphocytes % (Manual) Monocytes % (Manual) Seg Neutrophils # INR APTT Heparin Anti-Xa Level POC Sodium POC Potassium Sodium Potassium Chloride Carbon Dioxide POC BUN BUN Glucose POC Glucose 176 H 210 H 283 H Hemoglobin A1c Calcium AST Albumin Crossmatch 05/06/17 05/07/17 05/07/17 21:33 03:56 07:11 WBC RBC Hgb POC Hgb Hct POC Hct RDW Lymph % (Auto) [place] % (Auto) Lymph # [place] # Seg Neutrophils % Lymphocytes % (Manual) Monocytes % (Manual) Seg Neutrophils # INR APTT Heparin Anti-Xa Level 0.10 L POC Sodium POC Potassium Sodium Potassium Chloride Carbon Dioxide POC BUN BUN Glucose POC Glucose 264 H 276 H Hemoglobin A1c Calcium AST Albumin Crossmatch 05/07/17 05/07/17 05/07/17 11:48 11:48 16:11 WBC RBC Hgb POC Hgb Hct POC Hct RDW Lymph % (Auto) [place] % (Auto) Lymph # [place] # Seg Neutrophils % Lymphocytes % (Manual) Monocytes % (Manual) Seg Neutrophils # INR APTT Heparin Anti-Xa Level POC Sodium 137 L POC Potassium 5.5 H Sodium Potassium Chloride Carbon Dioxide POC BUN 31 H BUN Glucose POC Glucose 128 H 158 H Hemoglobin A1c Calcium AST Albumin Crossmatch See Detail 05/07/17 05/07/17 05/07/17 16:44 20:28 22:47 WBC RBC Hgb POC Hgb 11.6 L Hct POC Hct 34 L RDW Lymph % (Auto) [place] % (Auto) Lymph # [place] # Seg Neutrophils % Lymphocytes % (Manual) Monocytes % (Manual) Seg Neutrophils # INR APTT Heparin Anti-Xa Level POC Sodium POC Potassium 5.0 H Sodium Potassium Chloride Carbon Dioxide POC BUN 27 H BUN Glucose POC Glucose 170 H 203 H 253 H Hemoglobin A1c Calcium AST Albumin Crossmatch 05/08/17 05/08/17 05/08/17 04:23 07:57 12:01 WBC RBC Hgb POC Hgb Hct POC Hct RDW Lymph % (Auto) [place] % (Auto) Lymph # [place] # Seg Neutrophils % Lymphocytes % (Manual) Monocytes % (Manual) Seg Neutrophils # INR APTT Heparin Anti-Xa Level POC Sodium POC Potassium Sodium Potassium 5.3 H D Chloride Carbon Dioxide 19 L POC BUN BUN 29 H Glucose 223 H POC Glucose 258 H 282 H Hemoglobin A1c Calcium 8.2 L AST Albumin Crossmatch 05/08/17 05/08/17 05/08/17 15:42 19:44 21:39 WBC RBC Hgb POC Hgb Hct POC Hct RDW Lymph % (Auto) [place] % (Auto) Lymph # [place] # Seg Neutrophils % Lymphocytes % (Manual) Monocytes % (Manual) Seg Neutrophils # INR APTT Heparin Anti-Xa Level 0.25 L POC Sodium POC Potassium Sodium Potassium Chloride Carbon Dioxide POC BUN BUN Glucose POC Glucose 280 H 329 H Hemoglobin A1c Calcium AST Albumin Crossmatch 05/09/17 05/09/17 05/09/17 01:52 08:27 12:02 WBC RBC Hgb POC Hgb Hct POC Hct RDW Lymph % (Auto) [place] % (Auto) Lymph # [place] # Seg Neutrophils % Lymphocytes % (Manual) Monocytes % (Manual) Seg Neutrophils # INR APTT Heparin Anti-Xa Level 0.29 L POC Sodium POC Potassium Sodium Potassium Chloride Carbon Dioxide POC BUN BUN Glucose POC Glucose 187 H 190 H Hemoglobin A1c Calcium AST Albumin Crossmatch 05/09/17 05/09/17 05/10/17 16:42 21:58 03:41 WBC 13.4 H RBC 3.61 L Hgb 10.8 L POC Hgb Hct 31.9 L POC Hct RDW 13.1 L Lymph % (Auto) 12.9 L [place] % (Auto) 12.2 H Lymph # [place] # 1.6 H Seg Neutrophils % 74.1 H Lymphocytes % (Manual) Monocytes % (Manual) Seg Neutrophils # 10.0 H INR APTT Heparin Anti-Xa Level POC Sodium POC Potassium Sodium Potassium Chloride Carbon Dioxide POC BUN BUN Glucose POC Glucose 245 H 344 H Hemoglobin A1c Calcium AST Albumin Crossmatch 05/10/17 05/10/17 05/10/17 03:41 07:31 12:08 WBC RBC Hgb POC Hgb Hct POC Hct RDW Lymph % (Auto) [place] % (Auto) Lymph # [place] # Seg Neutrophils % Lymphocytes % (Manual) Monocytes % (Manual) Seg Neutrophils # INR APTT Heparin Anti-Xa Level POC Sodium POC Potassium Sodium 134 L Potassium Chloride Carbon Dioxide 21 L POC BUN BUN Glucose 171 H POC Glucose 127 H 172 H Hemoglobin A1c Calcium 8.2 L AST 51 H Albumin 2.2 L Crossmatch 05/10/17 16:28 WBC RBC Hgb POC Hgb Hct POC Hct RDW Lymph % (Auto) [place] % (Auto) Lymph # [place] # Seg Neutrophils % Lymphocytes % (Manual) Monocytes % (Manual) Seg Neutrophils # INR APTT Heparin Anti-Xa Level POC Sodium POC Potassium Sodium Potassium Chloride Carbon Dioxide POC BUN BUN Glucose POC Glucose 197 H Hemoglobin A1c Calcium AST Albumin Crossmatch
[2017-05-10] MEDS: LEVEMIR SUB-Q SCH (22:42)
[2017-05-11] MEDS ORDERED: ANCEF/STERILE WATER 2 GM/20 ML 2 GM/20 ML SYRINGE IV NR (06:00)
[2017-05-11] MEDS ORDERED: PEPCID PO NR (06:00)
[2017-05-11] MEDS ORDERED: PROVENTIL IH NR (06:00)
[2017-05-11] MEDS ORDERED: VERSED IV NR (06:00)
[2017-05-11 06:03] LABS: Basophils % (Auto) 0.6 % (0.0-1.8); Eosinophils % (Auto) 1.2 % (0.0-4.3); Hematocrit 32.1 % (35.5-45.6); Hemoglobin 10.7 gm/dl (11.8-15.2); Mean Corpuscular HGB Conc 33 % (32-34); Mean Corpuscular Hemoglobin 30 pg (28-32); Mean Corpuscular Volume 88 fl (84-94); Red Blood Count 3.64 M/mm3 (3.65-5.03); Red Cell Distribution Width 13.2 % (13.2-15.2); White Blood Count 19.1 K/mm3 (4.5-11.0)
[2017-05-11 06:04] LABS: Platelet Count 207 K/mm3 (140-440)
[2017-05-11 06:08] LABS: Alanine Aminotransferase 50 units/L (7-56); Albumin 2.7 g/dL (3.9-5); Albumin/Globulin Ratio 0.7 %; Alkaline Phosphatase 54 units/L (35-129); Anion Gap 17 mmol/L; BUN/Creatinine Ratio 17.77; Blood Urea Nitrogen 16 mg/dL (9-20); Calcium 8.7 mg/dL (8.4-10.2); Carbon Dioxide 27 mmol/L (22-30); Chloride 98.3 mmol/L (98-107); Glucose 143 mg/dL (75-100); Potassium 5.2 mmol/L (3.6-5.0); Sodium 137 mmol/L (137-145); Total Protein 6.8 g/dL (6.3-8.2)
[2017-05-11] MEDS: NOVOLOG SUB-Q SCH ×4 (07:38→23:28)
[2017-05-11] MEDS ORDERED: XYLOCAINE MPF 2% ONE (07:55)
[2017-05-11] MEDS ORDERED: DIPRIVAN 10 MG/ML IV ONE (07:55)
[2017-05-11] MEDS ORDERED: SUBLIMAZE ONE (07:55)
[2017-05-11] MEDS ORDERED: NEO SYNEPHRINE/NS Syringe(OR USE) IV ONE (08:00)
[2017-05-11] MEDS: NACL 0.9% 1000 ML 1,000 ML IV SCH ×2 (08:22→19:05)
[2017-05-11] MEDS ORDERED: DILAUDID ONE (08:27)
[2017-05-11] MEDS ORDERED: XYLOCAINE 1% 20 mL ONE (08:27)
--- NOTE | 2017-05-11 08:42 | Anesthesia Day of Surgery ---
Anesthesia Day of Surgery - Day of Surgery Patient Examined: Yes Patient H&P Reviewed: Yes Patient is NPO: Yes Beta Blockers: Yes (receoved last night)
[2017-05-11] MEDS ORDERED: NACL 0.9% IR ONE (08:45)
[2017-05-11] MEDS ORDERED: ZOFRAN ONE (09:20)
--- NOTE | 2017-05-11 09:44 | Operative Report ---
Operative Report Operative Report: Date of Procedure: 05/11/2017 Pre-operative Diagnosis: PVD with Left Foot Gangrene Post-operative Diagnosis: Same Procedure(s): 1. Open Left Foot Ray Amputation of Second and Third Toes 2. Excisional Debridement of Skin and Muscle and Soft Tissue of Left Foot Surgeon: Elias Meza M.D. Market Research Senior Project Manager: None Anesthesia: Gen. endotracheal anesthesia EBL: Minimal Counts: Correct Complications: None Condition: Stable Findings: Both the second and third toes were gangrenous and nonviable. The tissue within the mid foot and plantar surface beneath these toes was necrotic and gangrenous requiring extensive debridement. Specimen: Left second and third toes as well as skin muscle and soft tissue of left foot sent to pathology. Indication: The patient is a 76-year-old male with history of peripheral vascular disease who recently underwent a left femoral artery to posterior tibial artery bypass with in situ greater saphenous vein. He now is in need of toe amputation and debridement of necrotic tissue within his wound. He was given the risks, benefits, and alternative procedures and consented to procedure. Description of Procedure: The patient was brought to the operating room and laid in supine position. After general endotracheal anesthesia was achieved his left lower procedure performed fashion. Initially a wedge incision was created around the gangrenous second toe extending to the midportion of the second metatarsal on both the plantar and dorsal surface of the foot. Upon entering decision there was a significant amount of necrotic tissue surrounding the metatarsal. Cautery was used to continue the dissection down to the bone and upon doing this was obvious that the third toe was also gangrenous and nonviable. I extended this incision to encompass both toes. Cautery was used to divide all skin and soft tissue and a periosteal elevator was used to elevate the periosteum on the second and third metatarsals. An oscillating saw was then used to transect the metatarsals and curved Mayos were used to transect the toes. Specimen was passed off and then curved Mayos as well as a 10 blade was used to sharply debride the remaining necrotic tissue. I debrided down to fairly healthy tissue. There was not a significant amount of bleeding within the foot. I copiously irrigated the wound and impacted with Betadine soaked gauze and fluffs. I then wrapped the foot with a Kerlix roll and a 4 inch [place] bandage. The patient tolerated the procedure well. All sponge, needle, and estimate counts were correct. The patient was taken to the recovery area in stable condition.
[2017-05-11] MEDS: MORPHINE IV PRN ×3 (10:05→19:03)
[2017-05-11] MEDS: NORCO 5/325 PO PRN ×3 (10:40→23:28)
--- NOTE | 2017-05-11 11:56 | Progress Note ---
Assessment and Plan (1) Ischemia of left lower extremity Current Visit: Yes Status: Acute Plan to address problem: - s/p Fem-ACCESS REGISTRAR bypass - no active bleeding - hemodynamically stable - follow H&H (2) IDDM (insulin dependent diabetes mellitus) Current Visit: Yes Status: Chronic Plan to address problem: - continue SSI - continue levimir at 40units sq qhs (3) Deep venous thrombosis of left peroneal vein Onset Date: 08/22/16 Current Visit: No Status: Acute Plan to address problem: - per vascular team (4) Discharge planning issues Current Visit: Yes Status: Acute Plan to address problem: - will see prn Subjective Date of service: 05/11/17 Principal diagnosis: PVD s/p Angioplasty and Stenting; (L) Fep-ACCESS REGISTRAR bypass; DM; CHF Interval history: Seen and examined at bedside; 24 hour events reviewed; nursing and respiratory care staff consulted; no adverse overnight events reported to me; s/p left foot surgery; resting peacefully in bed; denies acute chest pains or increased SOB Objective Vital Signs - 12hr 05/11/17 05/11/17 05/11/17 08:15 09:38 09:40 Temperature 100.2 F H 99.5 F Pulse Rate 90 97 H 80 Respiratory 16 16 16 Rate Blood Pressure 158/88 121/61 124/68 O2 Sat by Pulse 97 99 99 Oximetry 05/11/17 05/11/17 05/11/17 09:45 09:50 09:55 Temperature Pulse Rate 80 79 78 Respiratory 18 18 20 Rate Blood Pressure 134/71 135/63 144/56 O2 Sat by Pulse 98 100 100 Oximetry 05/11/17 05/11/17 05/11/17 10:00 10:05 10:15 Temperature Pulse Rate 78 71 Respiratory 22 20 16 Rate Blood Pressure 144/70 144/62 O2 Sat by Pulse 99 99 Oximetry 05/11/17 05/11/17 05/11/17 10:30 10:40 10:45 Temperature 99 F Pulse Rate 71 71 Respiratory 18 16 18 Rate Blood Pressure 145/67 144/68 O2 Sat by Pulse 96 96 Oximetry 05/11/17 05/11/17 11:00 11:30 Temperature 98.9 F Pulse Rate 68 70 Respiratory 20 16 Rate Blood Pressure 135/57 129/56 O2 Sat by Pulse 99 99 Oximetry Constitutional: no acute distress, alert Eyes: non-icteric ENT: oropharynx moist Neck: supple, no lymphadenopathy Ascultation: Bilateral: diminished breath sounds Cardiovascular: regular rate and rhythm Gastrointestinal: normoactive bowel sounds, soft, non-tender Integumentary: cellulitis (Left foot.) Extremities: no cyanosis, no edema, other (left foot in clean dressing and MIKALA bandage) Neurologic: normal mental status, non-focal exam, pupils equal and round, motor strength normal and Psychiatric: mood appropriate, affect normal CBC and BMP: 05/11/17 05:03 05/11/17 05:03 ABG, PT/INR, D-dimer: PT/INR, D-dimer PT 14.1 Sec. (12.2-14.9) 05/08/17 13:07 INR 1.04 (0.87-1.13) 05/08/17 13:07 Abnormal lab findings: Abnormal Labs 05/01/17 05/01/17 05/01/17 14:55 14:55 14:55 WBC 12.0 H RBC Hgb POC Hgb Hct POC Hct RDW 12.9 L Lymph % (Auto) 6.3 L [place] % (Auto) Lymph # 0.8 L [place] # 0.9 H Seg Neutrophils % 85.9 H Lymphocytes % (Manual) Monocytes % (Manual) Seg Neutrophils # 10.3 H INR 1.15 H APTT 37.7 H Heparin Anti-Xa Level POC Sodium POC Potassium Sodium Potassium Chloride 97.8 L Carbon Dioxide POC BUN BUN 23 H Glucose 321 H POC Glucose Hemoglobin A1c Calcium AST Albumin Crossmatch 05/01/17 05/01/17 05/02/17 18:32 21:49 03:51 WBC RBC Hgb POC Hgb Hct POC Hct RDW 12.8 L Lymph % (Auto) [place] % (Auto) 12.4 H Lymph # [place] # 1.0 H Seg Neutrophils % Lymphocytes % (Manual) Monocytes % (Manual) Seg Neutrophils # INR APTT Heparin Anti-Xa Level POC Sodium POC Potassium Sodium Potassium Chloride Carbon Dioxide POC BUN BUN Glucose POC Glucose 247 H 280 H Hemoglobin A1c Calcium AST Albumin Crossmatch 05/02/17 05/02/17 05/02/17 03:51 03:51 07:27 WBC RBC Hgb POC Hgb Hct POC Hct RDW Lymph % (Auto) [place] % (Auto) Lymph # [place] # Seg Neutrophils % Lymphocytes % (Manual) Monocytes % (Manual) Seg Neutrophils # INR APTT Heparin Anti-Xa Level 0.22 L POC Sodium POC Potassium Sodium Potassium Chloride Carbon Dioxide POC BUN BUN Glucose 136 H POC Glucose 115 H Hemoglobin A1c Calcium AST Albumin Crossmatch 05/02/17 05/02/17 05/02/17 11:50 20:33 21:56 WBC RBC Hgb POC Hgb Hct POC Hct RDW Lymph % (Auto) [place] % (Auto) Lymph # [place] # Seg Neutrophils % Lymphocytes % (Manual) Monocytes % (Manual) Seg Neutrophils # INR APTT Heparin Anti-Xa Level 0.24 L POC Sodium POC Potassium Sodium Potassium Chloride Carbon Dioxide POC BUN BUN Glucose POC Glucose 165 H 248 H Hemoglobin A1c Calcium AST Albumin Crossmatch 05/03/17 05/03/17 05/03/17 03:23 05:14 05:14 WBC RBC Hgb POC Hgb Hct POC Hct RDW 12.8 L Lymph % (Auto) [place] % (Auto) 14.1 H Lymph # [place] # 1.2 H Seg Neutrophils % Lymphocytes % (Manual) Monocytes % (Manual) Seg Neutrophils # INR APTT 101.1 H* Heparin Anti-Xa Level POC Sodium POC Potassium Sodium 136 L Potassium Chloride Carbon Dioxide POC BUN BUN Glucose 116 H POC Glucose Hemoglobin A1c Calcium AST Albumin 3.0 L Crossmatch 05/03/17 05/03/17 05/03/17 05:14 11:48 11:51 WBC RBC Hgb POC Hgb Hct POC Hct RDW Lymph % (Auto) [place] % (Auto) Lymph # [place] # Seg Neutrophils % Lymphocytes % (Manual) Monocytes % (Manual) Seg Neutrophils # INR APTT Heparin Anti-Xa Level 0.26 L POC Sodium POC Potassium Sodium Potassium Chloride Carbon Dioxide POC BUN BUN Glucose POC Glucose 128 H Hemoglobin A1c 10.2 H Calcium AST Albumin Crossmatch 05/03/17 05/03/17 05/04/17 18:50 22:17 04:02 WBC RBC Hgb POC Hgb Hct POC Hct RDW 12.9 L Lymph % (Auto) [place] % (Auto) Lymph # [place] # Seg Neutrophils % Lymphocytes % (Manual) 13.0 L Monocytes % (Manual) 9.0 H Seg Neutrophils # INR APTT Heparin Anti-Xa Level POC Sodium POC Potassium Sodium Potassium Chloride Carbon Dioxide POC BUN BUN Glucose POC Glucose 314 H 312 H Hemoglobin A1c Calcium AST Albumin Crossmatch 05/04/17 05/04/17 05/04/17 04:02 07:49 11:54 WBC RBC Hgb POC Hgb Hct POC Hct RDW Lymph % (Auto) [place] % (Auto) Lymph # [place] # Seg Neutrophils % Lymphocytes % (Manual) Monocytes % (Manual) Seg Neutrophils # INR APTT Heparin Anti-Xa Level POC Sodium POC Potassium Sodium 134 L Potassium 5.2 H Chloride 96.2 L Carbon Dioxide POC BUN BUN 21 H Glucose 251 H POC Glucose 177 H 186 H Hemoglobin A1c Calcium AST Albumin 3.0 L Crossmatch 05/04/17 05/04/17 05/05/17 17:46 22:51 05:09 WBC RBC Hgb POC Hgb Hct POC Hct RDW Lymph % (Auto) [place] % (Auto) Lymph # [place] # Seg Neutrophils % Lymphocytes % (Manual) Monocytes % (Manual) Seg Neutrophils # INR APTT Heparin Anti-Xa Level POC Sodium POC Potassium Sodium 135 L Potassium Chloride Carbon Dioxide POC BUN BUN Glucose 179 H POC Glucose 244 H 265 H Hemoglobin A1c Calcium AST Albumin 2.9 L Crossmatch 05/05/17 05/05/17 05/05/17 05:09 07:39 11:24 WBC RBC Hgb POC Hgb Hct POC Hct RDW Lymph % (Auto) [place] % (Auto) Lymph # [place] # Seg Neutrophils % Lymphocytes % (Manual) Monocytes % (Manual) Seg Neutrophils # INR APTT Heparin Anti-Xa Level 0.15 L 0.29 L POC Sodium POC Potassium Sodium Potassium Chloride Carbon Dioxide POC BUN BUN Glucose POC Glucose 153 H Hemoglobin A1c Calcium AST Albumin Crossmatch 05/05/17 05/05/17 05/05/17 11:53 16:33 22:05 WBC RBC Hgb POC Hgb Hct POC Hct RDW Lymph % (Auto) [place] % (Auto) Lymph # [place] # Seg Neutrophils % Lymphocytes % (Manual) Monocytes % (Manual) Seg Neutrophils # INR APTT Heparin Anti-Xa Level POC Sodium POC Potassium Sodium Potassium Chloride Carbon Dioxide POC BUN BUN Glucose POC Glucose 171 H 317 H 313 H Hemoglobin A1c Calcium AST Albumin Crossmatch 05/06/17 05/06/17 05/06/17 07:32 11:47 16:28 WBC RBC Hgb POC Hgb Hct POC Hct RDW Lymph % (Auto) [place] % (Auto) Lymph # [place] # Seg Neutrophils % Lymphocytes % (Manual) Monocytes % (Manual) Seg Neutrophils # INR APTT Heparin Anti-Xa Level POC Sodium POC Potassium Sodium Potassium Chloride Carbon Dioxide POC BUN BUN Glucose POC Glucose 176 H 210 H 283 H Hemoglobin A1c Calcium AST Albumin Crossmatch 05/06/17 05/07/17 05/07/17 21:33 03:56 07:11 WBC RBC Hgb POC Hgb Hct POC Hct RDW Lymph % (Auto) [place] % (Auto) Lymph # [place] # Seg Neutrophils % Lymphocytes % (Manual) Monocytes % (Manual) Seg Neutrophils # INR APTT Heparin Anti-Xa Level 0.10 L POC Sodium POC Potassium Sodium Potassium Chloride Carbon Dioxide POC BUN BUN Glucose POC Glucose 264 H 276 H Hemoglobin A1c Calcium AST Albumin Crossmatch 05/07/17 05/07/17 05/07/17 11:48 11:48 16:11 WBC RBC Hgb POC Hgb Hct POC Hct RDW Lymph % (Auto) [place] % (Auto) Lymph # [place] # Seg Neutrophils % Lymphocytes % (Manual) Monocytes % (Manual) Seg Neutrophils # INR APTT Heparin Anti-Xa Level POC Sodium 137 L POC Potassium 5.5 H Sodium Potassium Chloride Carbon Dioxide POC BUN 31 H BUN Glucose POC Glucose 128 H 158 H Hemoglobin A1c Calcium AST Albumin Crossmatch See Detail 05/07/17 05/07/17 05/07/17 16:44 20:28 22:47 WBC RBC Hgb POC Hgb 11.6 L Hct POC Hct 34 L RDW Lymph % (Auto) [place] % (Auto) Lymph # [place] # Seg Neutrophils % Lymphocytes % (Manual) Monocytes % (Manual) Seg Neutrophils # INR APTT Heparin Anti-Xa Level POC Sodium POC Potassium 5.0 H Sodium Potassium Chloride Carbon Dioxide POC BUN 27 H BUN Glucose POC Glucose 170 H 203 H 253 H Hemoglobin A1c Calcium AST Albumin Crossmatch 05/08/17 05/08/17 05/08/17 04:23 07:57 12:01 WBC RBC Hgb POC Hgb Hct POC Hct RDW Lymph % (Auto) [place] % (Auto) Lymph # [place] # Seg Neutrophils % Lymphocytes % (Manual) Monocytes % (Manual) Seg Neutrophils # INR APTT Heparin Anti-Xa Level POC Sodium POC Potassium Sodium Potassium 5.3 H D Chloride Carbon Dioxide 19 L POC BUN BUN 29 H Glucose 223 H POC Glucose 258 H 282 H Hemoglobin A1c Calcium 8.2 L AST Albumin Crossmatch 05/08/17 05/08/17 05/08/17 15:42 19:44 21:39 WBC RBC Hgb POC Hgb Hct POC Hct RDW Lymph % (Auto) [place] % (Auto) Lymph # [place] # Seg Neutrophils % Lymphocytes % (Manual) Monocytes % (Manual) Seg Neutrophils # INR APTT Heparin Anti-Xa Level 0.25 L POC Sodium POC Potassium Sodium Potassium Chloride Carbon Dioxide POC BUN BUN Glucose POC Glucose 280 H 329 H Hemoglobin A1c Calcium AST Albumin Crossmatch 05/09/17 05/09/17 05/09/17 01:52 08:27 12:02 WBC RBC Hgb POC Hgb Hct POC Hct RDW Lymph % (Auto) [place] % (Auto) Lymph # [place] # Seg Neutrophils % Lymphocytes % (Manual) Monocytes % (Manual) Seg Neutrophils # INR APTT Heparin Anti-Xa Level 0.29 L POC Sodium POC Potassium Sodium Potassium Chloride Carbon Dioxide POC BUN BUN Glucose POC Glucose 187 H 190 H Hemoglobin A1c Calcium AST Albumin Crossmatch 05/09/17 05/09/17 05/10/17 16:42 21:58 03:41 WBC 13.4 H RBC 3.61 L Hgb 10.8 L POC Hgb Hct 31.9 L POC Hct RDW 13.1 L Lymph % (Auto) 12.9 L [place] % (Auto) 12.2 H Lymph # [place] # 1.6 H Seg Neutrophils % 74.1 H Lymphocytes % (Manual) Monocytes % (Manual) Seg Neutrophils # 10.0 H INR APTT Heparin Anti-Xa Level POC Sodium POC Potassium Sodium Potassium Chloride Carbon Dioxide POC BUN BUN Glucose POC Glucose 245 H 344 H Hemoglobin A1c Calcium AST Albumin Crossmatch 05/10/17 05/10/17 05/10/17 03:41 07:31 12:08 WBC RBC Hgb POC Hgb Hct POC Hct RDW Lymph % (Auto) [place] % (Auto) Lymph # [place] # Seg Neutrophils % Lymphocytes % (Manual) Monocytes % (Manual) Seg Neutrophils # INR APTT Heparin Anti-Xa Level POC Sodium POC Potassium Sodium 134 L Potassium Chloride Carbon Dioxide 21 L POC BUN BUN Glucose 171 H POC Glucose 127 H 172 H Hemoglobin A1c Calcium 8.2 L AST 51 H Albumin 2.2 L Crossmatch 05/10/17 05/10/17 05/11/17 16:28 21:04 05:03 WBC 19.1 H RBC 3.64 L Hgb 10.7 L POC Hgb Hct 32.1 L POC Hct RDW Lymph % (Auto) 11.8 L [place] % (Auto) 10.8 H Lymph # [place] # 2.1 H Seg Neutrophils % 75.6 H Lymphocytes % (Manual) Monocytes % (Manual) Seg Neutrophils # 14.4 H INR APTT Heparin Anti-Xa Level POC Sodium POC Potassium Sodium Potassium Chloride Carbon Dioxide POC BUN BUN Glucose POC Glucose 197 H 295 H Hemoglobin A1c Calcium AST Albumin Crossmatch 05/11/17 05/11/17 05/11/17 05:03 07:30 09:52 WBC RBC Hgb POC Hgb Hct POC Hct RDW Lymph % (Auto) [place] % (Auto) Lymph # [place] # Seg Neutrophils % Lymphocytes % (Manual) Monocytes % (Manual) Seg Neutrophils # INR APTT Heparin Anti-Xa Level POC Sodium POC Potassium Sodium Potassium 5.2 H Chloride Carbon Dioxide POC BUN BUN Glucose 143 H POC Glucose 118 H 124 H Hemoglobin A1c Calcium AST 51 H Albumin 2.7 L Crossmatch
[2017-05-11] MEDS: FOLBEE PLUS CZ PO SCH (13:04)
[2017-05-11] MEDS: LYRICA PO SCH ×2 (13:05→13:06)
[2017-05-11] MEDS: ZESTRIL PO SCH ×2 (13:06→13:14)
[2017-05-11] MEDS: PLAVIX PO SCH (13:07)
[2017-05-11] MEDS: PEPCID PO SCH (13:07)
[2017-05-11] MEDS: COLACE PO SCH ×2 (13:07→23:27)
[2017-05-11] MEDS: SENOKOT PO SCH ×2 (13:08→23:28)
[2017-05-11] MEDS: TOPROL XL PO SCH (13:16)
--- NOTE | 2017-05-11 13:22 | Progress Note ---
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 Otherwise, conservative cardiac management. Subjective Date of service: 05/11/17 Principal diagnosis: PAD, T2DM Interval history: s/p left 2nd and 3rd toe amputation today. He denies chest pain and shortness of breath post operatively. Objective Vital Signs Temp Pulse Pulse Resp BP BP Pulse Ox 05/11/17 13:16 86 105/49 05/11/17 13:14 86 105/49 05/11/17 12:00 99.1 F 67 16 105/49 96 05/11/17 11:30 98.9 F 70 16 129/56 99 05/11/17 11:00 68 20 135/57 99 05/11/17 10:45 71 18 144/68 96 05/11/17 10:40 16 05/11/17 10:30 99 F 71 18 145/67 96 05/11/17 10:15 71 16 144/62 99 05/11/17 10:05 20 05/11/17 10:00 78 22 144/70 99 05/11/17 09:55 78 20 144/56 100 05/11/17 09:50 79 18 135/63 100 05/11/17 09:45 80 18 134/71 98 05/11/17 09:40 80 16 124/68 99 05/11/17 09:38 99.5 F 97 H 16 121/61 99 05/11/17 08:15 100.2 F H 90 16 158/88 97 05/10/17 22:00 80 05/10/17 21:36 99.4 F 87 20 139/68 05/10/17 21:16 87 20 99 - Physical Examination General: No Apparent Distress HEENT: Positive: PERRL Neck: Positive: trachea midline Cardiac: Positive: Reg Rate and Rhythm Lungs: Positive: Decreased Breath Sounds Neuro: Positive: Grossly Intact - Labs and Meds Cardiac Enzymes 05/11/17 Range/Units 05:03 AST 51 H (5-40) units/L CBC 05/11/17 Range/Units 05:03 WBC 19.1 H (4.5-11.0) K/mm3 RBC 3.64 L (3.65-5.03) M/mm3 Hgb 10.7 L (11.8-15.2) gm/dl Hct 32.1 L (35.5-45.6) % Plt Count 207 (140-440) K/mm3 Lymph # 2.2 (1.2-5.4) K/mm3 [place] # 2.1 H (0.0-0.8) K/mm3 Eos # 0.2 (0.0-0.4) K/mm3 Baso # 0.1 (0.0-0.1) K/mm3 Comprehensive Metabolic Panel 05/11/17 Range/Units 05:03 Sodium 137 (137-145) mmol/L Potassium 5.2 H (3.6-5.0) mmol/L Chloride 98.3 (98-107) mmol/L Carbon Dioxide 27 (22-30) mmol/L BUN 16 (9-20) mg/dL Creatinine 0.9 (0.8-1.5) mg/dL Glucose 143 H (75-100) mg/dL Calcium 8.7 (8.4-10.2) mg/dL AST 51 H (5-40) units/L ALT 50 (7-56) units/L Alkaline Phosphatase 54 (35-129) units/L Total Protein 6.8 (6.3-8.2) g/dL Albumin 2.7 L (3.9-5) g/dL
--- NOTE | 2017-05-11 16:05 | Progress Note ---
Assessment and Plan - PAD - s/p Left femoral artery angioplasy, left femoral artery endoarterectomy and left femoral artery to post tibia artery bypass on 05/07/17 - IDDM: controlled with Levamir and SSI - Hyperkalemia- corrected - Diabetic Left gangrene : revascularization and local wound care - Diabetic peripheral Neuropathy: Continue with Gabapentin - Ischemic cardiomyopathy with EF 40-45% as at 2016 - Dysipidemia: On statin DVT and GI PPx with heparing and pepcid Subjective Date of service: 05/11/17 Principal diagnosis: PAD, T2DM Interval history: C/o pain in naveed left leg Pt with T2DM, PAD s/p Left femoral artery angioplasy, left femoral artery endoarterectomy and left femoral artery to post tibia artery bypass done doing well Objective - Constitutional Vitals: Vital Signs - 12hr 05/11/17 05/11/17 05/11/17 08:15 09:38 09:40 Temperature 100.2 F H 99.5 F Pulse Rate 90 97 H 80 Pulse Rate [ From Monitor] Respiratory 16 16 16 Rate Blood Pressure 158/88 121/61 124/68 Blood Pressure [Left Arm] O2 Sat by Pulse 97 99 99 Oximetry 05/11/17 05/11/17 05/11/17 09:45 09:50 09:55 Temperature Pulse Rate 80 79 78 Pulse Rate [ From Monitor] Respiratory 18 18 20 Rate Blood Pressure 134/71 135/63 144/56 Blood Pressure [Left Arm] O2 Sat by Pulse 98 100 100 Oximetry 05/11/17 05/11/17 05/11/17 10:00 10:05 10:15 Temperature Pulse Rate 78 71 Pulse Rate [ From Monitor] Respiratory 22 20 16 Rate Blood Pressure 144/70 144/62 Blood Pressure [Left Arm] O2 Sat by Pulse 99 99 Oximetry 05/11/17 05/11/17 05/11/17 10:30 10:40 10:45 Temperature 99 F Pulse Rate 71 71 Pulse Rate [ From Monitor] Respiratory 18 16 18 Rate Blood Pressure 145/67 144/68 Blood Pressure [Left Arm] O2 Sat by Pulse 96 96 Oximetry 05/11/17 05/11/17 05/11/17 11:00 11:30 12:00 Temperature 98.9 F 99.1 F Pulse Rate 68 70 Pulse Rate [ 67 From Monitor] Respiratory 20 16 16 Rate Blood Pressure 135/57 129/56 Blood Pressure 105/49 [Left Arm] O2 Sat by Pulse 99 99 96 Oximetry 05/11/17 05/11/17 05/11/17 13:14 13:16 13:20 Temperature 98.9 F Pulse Rate 86 86 Pulse Rate [ 88 From Monitor] Respiratory 16 Rate Blood Pressure 105/49 105/49 Blood Pressure 125/55 [Left Arm] O2 Sat by Pulse 94 Oximetry 05/11/17 14:16 Temperature 99.0 F Pulse Rate Pulse Rate [ 91 H From Monitor] Respiratory 16 Rate Blood Pressure Blood Pressure 120/52 [Left Arm] O2 Sat by Pulse 96 Oximetry General appearance: Present: no acute distress, well-nourished - EENT Eyes: PERRL, EOM intact ENT: hearing intact, clear oral mucosa - Neck Neck: supple, normal ROM - Respiratory Respiratory effort: normal Respiratory: bilateral: CTA - Cardiovascular Rhythm: regular Heart Sounds: Present: S1 & S2. Absent: gallop, rub Extremities: pulses intact, No edema, normal color, Full ROM Extremity abnormal: other (wound dressing left leg) - Gastrointestinal General gastrointestinal: Present: soft, non-tender, non-distended, normal bowel sounds - Integumentary Integumentary: clear, warm, dry - Musculoskeletal Musculoskeletal: 1, strength equal bilaterally - Neurologic Neurologic: moves all extremities - Psychiatric Psychiatric: memory intact, appropriate mood/affect, intact judgment & insight - Labs CBC & Chem 7: 05/11/17 05:03 05/11/17 05:03 Labs: Abnormal lab results 05/10/17 05/10/17 05/11/17 Range/Units 16:28 21:04 05:03 WBC 19.1 H (4.5-11.0) K/mm3 RBC 3.64 L (3.65-5.03) M/mm3 Hgb 10.7 L (11.8-15.2) gm/dl Hct 32.1 L (35.5-45.6) % Lymph % (Auto) 11.8 L (13.4-35.0) % [place] % (Auto) 10.8 H (0.0-7.3) % [place] # 2.1 H (0.0-0.8) K/mm3 Seg Neutrophils % 75.6 H (40.0-70.0) % Seg Neutrophils # 14.4 H (1.8-7.7) K/mm3 Heparin Anti-Xa Level (0.3-0.7) U.I./ml Potassium (3.6-5.0) mmol/L Glucose (75-100) mg/dL POC Glucose 197 H 295 H (70-105) AST (5-40) units/L Albumin (3.9-5) g/dL 05/11/17 05/11/17 05/11/17 Range/Units 05:03 07:30 09:52 WBC (4.5-11.0) K/mm3 RBC (3.65-5.03) M/mm3 Hgb (11.8-15.2) gm/dl Hct (35.5-45.6) % Lymph % (Auto) (13.4-35.0) % [place] % (Auto) (0.0-7.3) % [place] # (0.0-0.8) K/mm3 Seg Neutrophils % (40.0-70.0) % Seg Neutrophils # (1.8-7.7) K/mm3 Heparin Anti-Xa Level (0.3-0.7) U.I./ml Potassium 5.2 H (3.6-5.0) mmol/L Glucose 143 H (75-100) mg/dL POC Glucose 118 H 124 H (70-105) AST 51 H (5-40) units/L Albumin 2.7 L (3.9-5) g/dL 05/11/17 05/11/17 Range/Units 11:32 12:22 WBC (4.5-11.0) K/mm3 RBC (3.65-5.03) M/mm3 Hgb (11.8-15.2) gm/dl Hct (35.5-45.6) % Lymph % (Auto) (13.4-35.0) % [place] % (Auto) (0.0-7.3) % [place] # (0.0-0.8) K/mm3 Seg Neutrophils % (40.0-70.0) % Seg Neutrophils # (1.8-7.7) K/mm3 Heparin Anti-Xa Level < 0.10 L (0.3-0.7) U.I./ml Potassium (3.6-5.0) mmol/L Glucose (75-100) mg/dL POC Glucose 119 H (70-105) AST (5-40) units/L Albumin (3.9-5) g/dL
[2017-05-11] MEDS: LEVEMIR SUB-Q SCH (23:29)
[2017-05-12] MEDS: NORCO 5/325 PO PRN ×3 (05:49→21:51)
[2017-05-12 06:09] LABS: Basophils % (Auto) 0.2 % (0.0-1.8); Eosinophils % (Auto) 1.1 % (0.0-4.3); Hematocrit 32.5 % (35.5-45.6); Hemoglobin 10.8 gm/dl (11.8-15.2); Mean Corpuscular HGB Conc 33 % (32-34); Mean Corpuscular Hemoglobin 30 pg (28-32); Mean Corpuscular Volume 89 fl (84-94); Platelet Count 235 K/mm3 (140-440); Red Blood Count 3.64 M/mm3 (3.65-5.03); Red Cell Distribution Width 13.4 % (13.2-15.2); White Blood Count 10.5 K/mm3 (4.5-11.0)
[2017-05-12 06:25] LABS: Alanine Aminotransferase 44 units/L (7-56); Albumin 2.6 g/dL (3.9-5); Albumin/Globulin Ratio 0.7 %; Alkaline Phosphatase 53 units/L (35-129); Anion Gap 15 mmol/L; BUN/Creatinine Ratio 18.75; Blood Urea Nitrogen 15 mg/dL (9-20); Calcium 8.3 mg/dL (8.4-10.2); Carbon Dioxide 26 mmol/L (22-30); Chloride 99.9 mmol/L (98-107); Glucose 210 mg/dL (75-100); Potassium 4.6 mmol/L (3.6-5.0); Sodium 136 mmol/L (137-145); Total Protein 6.2 g/dL (6.3-8.2)
[2017-05-12] MEDS: NOVOLOG SUB-Q SCH ×4 (08:22→21:52)
--- NOTE | 2017-05-12 09:51 | Progress Note ---
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 Otherwise, conservative cardiac management. 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; DM; CHF Interval history: NO events overnight Objective Vital Signs Temp Pulse Pulse Resp BP BP Pulse Ox 05/11/17 22:00 98.2 F 80 81 18 130/66 97 05/11/17 16:45 99.3 F 92 H 16 120/43 96 05/11/17 14:16 99.0 F 91 H 16 120/52 96 05/11/17 13:20 98.9 F 88 16 125/55 94 05/11/17 13:16 86 105/49 05/11/17 13:14 86 105/49 05/11/17 12:00 99.1 F 67 16 105/49 96 05/11/17 11:30 98.9 F 70 16 129/56 99 05/11/17 11:00 68 20 135/57 99 05/11/17 10:45 71 18 144/68 96 05/11/17 10:40 16 05/11/17 10:30 99 F 71 18 145/67 96 05/11/17 10:15 71 16 144/62 99 05/11/17 10:05 20 05/11/17 10:00 78 22 144/70 99 05/11/17 09:55 78 20 144/56 100 05/11/17 09:50 79 18 135/63 100 - Physical Examination General: No Apparent Distress HEENT: Positive: PERRL, Normocephaly Neck: Positive: trachea midline Cardiac: Positive: Reg Rate and Rhythm Lungs: Positive: clear to auscultation Neuro: Positive: Grossly Intact Abdomen: Positive: Soft Extremities: Present: Ulceration Noted - Labs and Meds Cardiac Enzymes 05/12/17 Range/Units 05:35 AST 38 (5-40) units/L CBC 05/12/17 Range/Units 05:35 WBC 10.5 (4.5-11.0) K/mm3 RBC 3.64 L (3.65-5.03) M/mm3 Hgb 10.8 L (11.8-15.2) gm/dl Hct 32.5 L (35.5-45.6) % Plt Count 235 (140-440) K/mm3 Lymph # 0.8 L (1.2-5.4) K/mm3 [place] # 1.3 H (0.0-0.8) K/mm3 Eos # 0.1 (0.0-0.4) K/mm3 Baso # 0.0 (0.0-0.1) K/mm3 Comprehensive Metabolic Panel 05/12/17 Range/Units 05:35 Sodium 136 L (137-145) mmol/L Potassium 4.6 (3.6-5.0) mmol/L Chloride 99.9 (98-107) mmol/L Carbon Dioxide 26 (22-30) mmol/L BUN 15 (9-20) mg/dL Creatinine 0.8 (0.8-1.5) mg/dL Glucose 210 H (75-100) mg/dL Calcium 8.3 L (8.4-10.2) mg/dL AST 38 (5-40) units/L ALT 44 (7-56) units/L Alkaline Phosphatase 53 (35-129) units/L Total Protein 6.2 L (6.3-8.2) g/dL Albumin 2.6 L (3.9-5) g/dL
[2017-05-12] MEDS: PLAVIX PO SCH (11:09)
[2017-05-12] MEDS: FOLBEE PLUS CZ PO SCH (11:09)
[2017-05-12] MEDS: LYRICA PO SCH ×2 (11:10→11:11)
[2017-05-12] MEDS: COLACE PO SCH ×2 (11:10→21:51)
[2017-05-12] MEDS: PEPCID PO SCH (11:11)
[2017-05-12] MEDS: SENOKOT PO SCH ×2 (11:12→21:50)
[2017-05-12] MEDS: ZESTRIL PO SCH (11:12)
[2017-05-12] MEDS: TOPROL XL PO SCH (11:15)
--- NOTE | 2017-05-12 12:15 | Progress Note ---
Assessment and Plan - Patient Problems (1) Atherosclerosis of [place] arteries of the extremities with ulceration Onset Date: 08/22/16 Current Visit: No Status: Acute Plan to address problem: S/P fem distal bypass, diminished doppler flow, Heparin restarted. Will need angio to enhance perfused based on verbal reports. Discussed with patient. Subjective Date of service: 05/12/17 Principal diagnosis: PVD s/p Angioplasty and Stenting; (L) Fep-CURATOR HERBARIUM bypass; DM; CHF Interval history: No complaints. Objective - Constitutional Vitals: Vital Signs - 12hr 05/12/17 05/12/17 05/12/17 10:00 11:12 11:15 Temperature 99.1 F Pulse Rate 84 84 Pulse Rate [ 67 From Monitor] Respiratory 18 Rate Blood Pressure 153/78 153/78 Blood Pressure 113/60 [Left Arm] O2 Sat by Pulse 98 Oximetry General appearance: Present: no acute distress - EENT Eyes: PERRL ENT: clear oral mucosa - Neck Neck: supple - Respiratory Respiratory effort: normal Respiratory: bilateral: CTA - Cardiovascular Rhythm: regular Heart Sounds: Present: S1 & S2 Extremities: normal temperature, normal color (diminished doppler signals) - Integumentary Integumentary: clear, warm, dry - Musculoskeletal Musculoskeletal: strength equal bilaterally - Labs CBC & Chem 7: 05/12/17 05:35 05/12/17 05:35 Labs: Abnormal lab results 05/11/17 05/11/17 05/11/17 Range/Units 12:22 16:22 22:06 RBC (3.65-5.03) M/mm3 Hgb (11.8-15.2) gm/dl Hct (35.5-45.6) % Lymph % (Auto) (13.4-35.0) % [place] % (Auto) (0.0-7.3) % Lymph # (1.2-5.4) K/mm3 [place] # (0.0-0.8) K/mm3 Seg Neutrophils % (40.0-70.0) % Seg Neutrophils # (1.8-7.7) K/mm3 Sodium (137-145) mmol/L Glucose (75-100) mg/dL POC Glucose 119 H 197 H 296 H (70-105) Calcium (8.4-10.2) mg/dL Total Protein (6.3-8.2) g/dL Albumin (3.9-5) g/dL 05/12/17 05/12/17 05/12/17 Range/Units 05:35 05:35 07:26 RBC 3.64 L (3.65-5.03) M/mm3 Hgb 10.8 L (11.8-15.2) gm/dl Hct 32.5 L (35.5-45.6) % Lymph % (Auto) 8.0 L (13.4-35.0) % [place] % (Auto) 12.8 H (0.0-7.3) % Lymph # 0.8 L (1.2-5.4) K/mm3 [place] # 1.3 H (0.0-0.8) K/mm3 Seg Neutrophils % 77.9 H (40.0-70.0) % Seg Neutrophils # 8.2 H (1.8-7.7) K/mm3 Sodium 136 L (137-145) mmol/L Glucose 210 H (75-100) mg/dL POC Glucose 171 H (70-105) Calcium 8.3 L (8.4-10.2) mg/dL Total Protein 6.2 L (6.3-8.2) g/dL Albumin 2.6 L (3.9-5) g/dL
[2017-05-12 12:27] LABS: Hematocrit 35.1 % (35.5-45.6); Hemoglobin 11.4 gm/dl (11.8-15.2)
--- NOTE | 2017-05-12 12:33 | Progress Note ---
Assessment and Plan - Patient Problems (1) Ischemia of left lower extremity Current Visit: Yes Status: Acute Plan to address problem: Status post femoropopliteal bypass. Continue current management, monitor coagulation status. Pain control as ordered (2) CAD (coronary artery disease) Current Visit: Yes Status: Chronic Qualifiers: Coronary Disease-Associated Artery/Lesion type: [place] artery [place] vs. transplanted heart: N Associated angina: without angina Plan to address problem: Clinically stable no symptoms of chest pain (3) IDDM (insulin dependent diabetes mellitus) Current Visit: Yes Status: Chronic (4) Peripheral neuropathy Current Visit: Yes Status: Chronic Qualifiers: Peripheral neuropathy type: polyneuropathy associated with underlying disease Qualified Code(s): G63 - Polyneuropathy in diseases classified elsewhere Plan to address problem: Continue current management (5) Atherosclerosis of [place] arteries of the extremities with ulceration Onset Date: 08/22/16 Current Visit: No Status: Acute Subjective Date of service: 05/12/17 Principal diagnosis: PVD s/p Angioplasty and Stenting; (L) Fep-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 Dr. Badillo. Patient seen and examined chart reviewed, patient complain of pain in the lower extremities and in the groin, no fever reported no chest pain or shortness of breath vital stable Objective - Exam Narrative Exam: GENERAL: Resting comfortably in bed no acute distress HEENT: [Patient is not pale, not jaundiced, not cyanosed.] NECK: [No JVD, no thyroid enlargement and no lymphadenopathy.] CHEST/LUNGS: [Good air exchange bilaterally, no wheeze, no rales and no rhonchi. ] [No chest wall tenderness, percussion is normal, symmetrical chest wall.] HEART/CARDIOVASCULAR: [Regular rate and rhythm, S1 and S2 only, no murmur.] ABDOMEN: [Abdomen is soft, nondistended, no guarding, no rebound tenderness, no masses palpable per abdomen, active bowel sounds.] SKIN: [Warm and dry, no rash.] NEURO: [Awake, alert, oriented x3, speech normal. Power 5/5 in all the extremities.] EXTREMITIES: Left extremity dressed. Palpable peripheral pulses bilaterally - Constitutional Vitals: Vital Signs - 12hr 05/12/17 05/12/17 05/12/17 10:00 11:12 11:15 Temperature 99.1 F Pulse Rate 84 84 Pulse Rate [ 67 From Monitor] Respiratory 18 Rate Blood Pressure 153/78 153/78 Blood Pressure 113/60 [Left Arm] O2 Sat by Pulse 98 Oximetry - Labs CBC & Chem 7: 05/12/17 11:41 05/12/17 05:35 Labs: Abnormal lab results 05/11/17 05/11/17 05/11/17 Range/Units 12:22 16:22 22:06 RBC (3.65-5.03) M/mm3 Hgb (11.8-15.2) gm/dl Hct (35.5-45.6) % Lymph % (Auto) (13.4-35.0) % [place] % (Auto) (0.0-7.3) % Lymph # (1.2-5.4) K/mm3 [place] # (0.0-0.8) K/mm3 Seg Neutrophils % (40.0-70.0) % Seg Neutrophils # (1.8-7.7) K/mm3 Sodium (137-145) mmol/L Glucose (75-100) mg/dL POC Glucose 119 H 197 H 296 H (70-105) Calcium (8.4-10.2) mg/dL Total Protein (6.3-8.2) g/dL Albumin (3.9-5) g/dL 05/12/17 05/12/17 05/12/17 Range/Units 05:35 05:35 07:26 RBC 3.64 L (3.65-5.03) M/mm3 Hgb 10.8 L (11.8-15.2) gm/dl Hct 32.5 L (35.5-45.6) % Lymph % (Auto) 8.0 L (13.4-35.0) % [place] % (Auto) 12.8 H (0.0-7.3) % Lymph # 0.8 L (1.2-5.4) K/mm3 [place] # 1.3 H (0.0-0.8) K/mm3 Seg Neutrophils % 77.9 H (40.0-70.0) % Seg Neutrophils # 8.2 H (1.8-7.7) K/mm3 Sodium 136 L (137-145) mmol/L Glucose 210 H (75-100) mg/dL POC Glucose 171 H (70-105) Calcium 8.3 L (8.4-10.2) mg/dL Total Protein 6.2 L (6.3-8.2) g/dL Albumin 2.6 L (3.9-5) g/dL 05/12/17 Range/Units 11:41 RBC (3.65-5.03) M/mm3 Hgb 11.4 L (11.8-15.2) gm/dl Hct 35.1 L (35.5-45.6) % Lymph % (Auto) (13.4-35.0) % [place] % (Auto) (0.0-7.3) % Lymph # (1.2-5.4) K/mm3 [place] # (0.0-0.8) K/mm3 Seg Neutrophils % (40.0-70.0) % Seg Neutrophils # (1.8-7.7) K/mm3 Sodium (137-145) mmol/L Glucose (75-100) mg/dL POC Glucose (70-105) Calcium (8.4-10.2) mg/dL Total Protein (6.3-8.2) g/dL Albumin (3.9-5) g/dL
[2017-05-12 12:37] LABS: INR 1.09 (0.87-1.13)
[2017-05-12 12:38] LABS: Partial Thromboplastin Time 32.6 Sec. (24.2-36.6)
--- NOTE | 2017-05-12 15:08 | Progress Note ---
Assessment and Plan (1) Ischemia of left lower extremity Current Visit: Yes Status: Acute Plan to address problem: - s/p Fem-HUMAN FACTORS ADVISOR LEAD bypass - no active bleeding - hemodynamically stable - follow H&H (2) IDDM (insulin dependent diabetes mellitus) Current Visit: Yes Status: Chronic Plan to address problem: - continue SSI - continue levimir at 40units sq qhs (3) Deep venous thrombosis of left peroneal vein Onset Date: 08/22/16 Current Visit: No Status: Acute Plan to address problem: - per vascular team (4) Discharge planning issues Current Visit: Yes Status: Acute Plan to address problem: - per attending Subjective Date of service: 05/12/17 Principal diagnosis: PVD s/p Angioplasty and Stenting; (L) Fep-HUMAN FACTORS ADVISOR LEAD bypass; DM; CHF Interval history: Seen and examined at bedside; 24 hour events reviewed; nursing and respiratory care staff consulted; no adverse overnight events reported to me; resting in bed ; no N/V/F/C and no new issues respiratory-cervantes Objective Vital Signs - 12hr 05/12/17 05/12/17 05/12/17 10:00 11:12 11:15 Temperature 99.1 F Pulse Rate 84 84 Pulse Rate [ 84 From Monitor] Respiratory 20 Rate Blood Pressure 153/78 153/78 Blood Pressure 113/60 [Left Arm] O2 Sat by Pulse 96 Oximetry Constitutional: no acute distress, alert Eyes: non-icteric ENT: oropharynx moist Neck: supple, no lymphadenopathy Ascultation: Bilateral: diminished breath sounds Cardiovascular: regular rate and rhythm Gastrointestinal: normoactive bowel sounds, soft, non-tender Integumentary: cellulitis (Left foot.) Extremities: no cyanosis, no edema, other (left foot in clean dressing and MIKALA bandage) Neurologic: normal mental status, non-focal exam, pupils equal and round, motor strength normal and Psychiatric: mood appropriate, affect normal CBC and BMP: 05/12/17 11:41 05/12/17 05:35 ABG, PT/INR, D-dimer: PT/INR, D-dimer PT 14.0 Sec. (12.2-14.9) 05/12/17 11:41 INR 1.09 (0.87-1.13) 05/12/17 11:41 Abnormal lab findings: Abnormal Labs 05/01/17 05/01/17 05/01/17 14:55 14:55 14:55 WBC 12.0 H RBC Hgb POC Hgb Hct POC Hct RDW 12.9 L Lymph % (Auto) 6.3 L [place] % (Auto) Lymph # 0.8 L [place] # 0.9 H Seg Neutrophils % 85.9 H Lymphocytes % (Manual) Monocytes % (Manual) Seg Neutrophils # 10.3 H INR 1.15 H APTT 37.7 H Heparin Anti-Xa Level POC Sodium POC Potassium Sodium Potassium Chloride 97.8 L Carbon Dioxide POC BUN BUN 23 H Glucose 321 H POC Glucose Hemoglobin A1c Calcium AST Total Protein Albumin Crossmatch 05/01/17 05/01/17 05/02/17 18:32 21:49 03:51 WBC RBC Hgb POC Hgb Hct POC Hct RDW 12.8 L Lymph % (Auto) [place] % (Auto) 12.4 H Lymph # [place] # 1.0 H Seg Neutrophils % Lymphocytes % (Manual) Monocytes % (Manual) Seg Neutrophils # INR APTT Heparin Anti-Xa Level POC Sodium POC Potassium Sodium Potassium Chloride Carbon Dioxide POC BUN BUN Glucose POC Glucose 247 H 280 H Hemoglobin A1c Calcium AST Total Protein Albumin Crossmatch 05/02/17 05/02/17 05/02/17 03:51 03:51 07:27 WBC RBC Hgb POC Hgb Hct POC Hct RDW Lymph % (Auto) [place] % (Auto) Lymph # [place] # Seg Neutrophils % Lymphocytes % (Manual) Monocytes % (Manual) Seg Neutrophils # INR APTT Heparin Anti-Xa Level 0.22 L POC Sodium POC Potassium Sodium Potassium Chloride Carbon Dioxide POC BUN BUN Glucose 136 H POC Glucose 115 H Hemoglobin A1c Calcium AST Total Protein Albumin Crossmatch 05/02/17 05/02/17 05/02/17 11:50 20:33 21:56 WBC RBC Hgb POC Hgb Hct POC Hct RDW Lymph % (Auto) [place] % (Auto) Lymph # [place] # Seg Neutrophils % Lymphocytes % (Manual) Monocytes % (Manual) Seg Neutrophils # INR APTT Heparin Anti-Xa Level 0.24 L POC Sodium POC Potassium Sodium Potassium Chloride Carbon Dioxide POC BUN BUN Glucose POC Glucose 165 H 248 H Hemoglobin A1c Calcium AST Total Protein Albumin Crossmatch 05/03/17 05/03/17 05/03/17 03:23 05:14 05:14 WBC RBC Hgb POC Hgb Hct POC Hct RDW 12.8 L Lymph % (Auto) [place] % (Auto) 14.1 H Lymph # [place] # 1.2 H Seg Neutrophils % Lymphocytes % (Manual) Monocytes % (Manual) Seg Neutrophils # INR APTT 101.1 H* Heparin Anti-Xa Level POC Sodium POC Potassium Sodium 136 L Potassium Chloride Carbon Dioxide POC BUN BUN Glucose 116 H POC Glucose Hemoglobin A1c Calcium AST Total Protein Albumin 3.0 L Crossmatch 05/03/17 05/03/17 05/03/17 05:14 11:48 11:51 WBC RBC Hgb POC Hgb Hct POC Hct RDW Lymph % (Auto) [place] % (Auto) Lymph # [place] # Seg Neutrophils % Lymphocytes % (Manual) Monocytes % (Manual) Seg Neutrophils # INR APTT Heparin Anti-Xa Level 0.26 L POC Sodium POC Potassium Sodium Potassium Chloride Carbon Dioxide POC BUN BUN Glucose POC Glucose 128 H Hemoglobin A1c 10.2 H Calcium AST Total Protein Albumin Crossmatch 05/03/17 05/03/17 05/04/17 18:50 22:17 04:02 WBC RBC Hgb POC Hgb Hct POC Hct RDW 12.9 L Lymph % (Auto) [place] % (Auto) Lymph # [place] # Seg Neutrophils % Lymphocytes % (Manual) 13.0 L Monocytes % (Manual) 9.0 H Seg Neutrophils # INR APTT Heparin Anti-Xa Level POC Sodium POC Potassium Sodium Potassium Chloride Carbon Dioxide POC BUN BUN Glucose POC Glucose 314 H 312 H Hemoglobin A1c Calcium AST Total Protein Albumin Crossmatch 05/04/17 05/04/17 05/04/17 04:02 07:49 11:54 WBC RBC Hgb POC Hgb Hct POC Hct RDW Lymph % (Auto) [place] % (Auto) Lymph # [place] # Seg Neutrophils % Lymphocytes % (Manual) Monocytes % (Manual) Seg Neutrophils # INR APTT Heparin Anti-Xa Level POC Sodium POC Potassium Sodium 134 L Potassium 5.2 H Chloride 96.2 L Carbon Dioxide POC BUN BUN 21 H Glucose 251 H POC Glucose 177 H 186 H Hemoglobin A1c Calcium AST Total Protein Albumin 3.0 L Crossmatch 05/04/17 05/04/17 05/05/17 17:46 22:51 05:09 WBC RBC Hgb POC Hgb Hct POC Hct RDW Lymph % (Auto) [place] % (Auto) Lymph # [place] # Seg Neutrophils % Lymphocytes % (Manual) Monocytes % (Manual) Seg Neutrophils # INR APTT Heparin Anti-Xa Level POC Sodium POC Potassium Sodium 135 L Potassium Chloride Carbon Dioxide POC BUN BUN Glucose 179 H POC Glucose 244 H 265 H Hemoglobin A1c Calcium AST Total Protein Albumin 2.9 L Crossmatch 05/05/17 05/05/17 05/05/17 05:09 07:39 11:24 WBC RBC Hgb POC Hgb Hct POC Hct RDW Lymph % (Auto) [place] % (Auto) Lymph # [place] # Seg Neutrophils % Lymphocytes % (Manual) Monocytes % (Manual) Seg Neutrophils # INR APTT Heparin Anti-Xa Level 0.15 L 0.29 L POC Sodium POC Potassium Sodium Potassium Chloride Carbon Dioxide POC BUN BUN Glucose POC Glucose 153 H Hemoglobin A1c Calcium AST Total Protein Albumin Crossmatch 05/05/17 05/05/17 05/05/17 11:53 16:33 22:05 WBC RBC Hgb POC Hgb Hct POC Hct RDW Lymph % (Auto) [place] % (Auto) Lymph # [place] # Seg Neutrophils % Lymphocytes % (Manual) Monocytes % (Manual) Seg Neutrophils # INR APTT Heparin Anti-Xa Level POC Sodium POC Potassium Sodium Potassium Chloride Carbon Dioxide POC BUN BUN Glucose POC Glucose 171 H 317 H 313 H Hemoglobin A1c Calcium AST Total Protein Albumin Crossmatch 05/06/17 05/06/17 05/06/17 07:32 11:47 16:28 WBC RBC Hgb POC Hgb Hct POC Hct RDW Lymph % (Auto) [place] % (Auto) Lymph # [place] # Seg Neutrophils % Lymphocytes % (Manual) Monocytes % (Manual) Seg Neutrophils # INR APTT Heparin Anti-Xa Level POC Sodium POC Potassium Sodium Potassium Chloride Carbon Dioxide POC BUN BUN Glucose POC Glucose 176 H 210 H 283 H Hemoglobin A1c Calcium AST Total Protein Albumin Crossmatch 05/06/17 05/07/17 05/07/17 21:33 03:56 07:11 WBC RBC Hgb POC Hgb Hct POC Hct RDW Lymph % (Auto) [place] % (Auto) Lymph # [place] # Seg Neutrophils % Lymphocytes % (Manual) Monocytes % (Manual) Seg Neutrophils # INR APTT Heparin Anti-Xa Level 0.10 L POC Sodium POC Potassium Sodium Potassium Chloride Carbon Dioxide POC BUN BUN Glucose POC Glucose 264 H 276 H Hemoglobin A1c Calcium AST Total Protein Albumin Crossmatch 05/07/17 05/07/17 05/07/17 11:48 11:48 16:11 WBC RBC Hgb POC Hgb Hct POC Hct RDW Lymph % (Auto) [place] % (Auto) Lymph # [place] # Seg Neutrophils % Lymphocytes % (Manual) Monocytes % (Manual) Seg Neutrophils # INR APTT Heparin Anti-Xa Level POC Sodium 137 L POC Potassium 5.5 H Sodium Potassium Chloride Carbon Dioxide POC BUN 31 H BUN Glucose POC Glucose 128 H 158 H Hemoglobin A1c Calcium AST Total Protein Albumin Crossmatch See Detail 05/07/17 05/07/17 05/07/17 16:44 20:28 22:47 WBC RBC Hgb POC Hgb 11.6 L Hct POC Hct 34 L RDW Lymph % (Auto) [place] % (Auto) Lymph # [place] # Seg Neutrophils % Lymphocytes % (Manual) Monocytes % (Manual) Seg Neutrophils # INR APTT Heparin Anti-Xa Level POC Sodium POC Potassium 5.0 H Sodium Potassium Chloride Carbon Dioxide POC BUN 27 H BUN Glucose POC Glucose 170 H 203 H 253 H Hemoglobin A1c Calcium AST Total Protein Albumin Crossmatch 05/08/17 05/08/17 05/08/17 04:23 07:57 12:01 WBC RBC Hgb POC Hgb Hct POC Hct RDW Lymph % (Auto) [place] % (Auto) Lymph # [place] # Seg Neutrophils % Lymphocytes % (Manual) Monocytes % (Manual) Seg Neutrophils # INR APTT Heparin Anti-Xa Level POC Sodium POC Potassium Sodium Potassium 5.3 H D Chloride Carbon Dioxide 19 L POC BUN BUN 29 H Glucose 223 H POC Glucose 258 H 282 H Hemoglobin A1c Calcium 8.2 L AST Total Protein Albumin Crossmatch 05/08/17 05/08/17 05/08/17 15:42 19:44 21:39 WBC RBC Hgb POC Hgb Hct POC Hct RDW Lymph % (Auto) [place] % (Auto) Lymph # [place] # Seg Neutrophils % Lymphocytes % (Manual) Monocytes % (Manual) Seg Neutrophils # INR APTT Heparin Anti-Xa Level 0.25 L POC Sodium POC Potassium Sodium Potassium Chloride Carbon Dioxide POC BUN BUN Glucose POC Glucose 280 H 329 H Hemoglobin A1c Calcium AST Total Protein Albumin Crossmatch 05/09/17 05/09/17 05/09/17 01:52 08:27 12:02 WBC RBC Hgb POC Hgb Hct POC Hct RDW Lymph % (Auto) [place] % (Auto) Lymph # [place] # Seg Neutrophils % Lymphocytes % (Manual) Monocytes % (Manual) Seg Neutrophils # INR APTT Heparin Anti-Xa Level 0.29 L POC Sodium POC Potassium Sodium Potassium Chloride Carbon Dioxide POC BUN BUN Glucose POC Glucose 187 H 190 H Hemoglobin A1c Calcium AST Total Protein Albumin Crossmatch 05/09/17 05/09/17 05/10/17 16:42 21:58 03:41 WBC 13.4 H RBC 3.61 L Hgb 10.8 L POC Hgb Hct 31.9 L POC Hct RDW 13.1 L Lymph % (Auto) 12.9 L [place] % (Auto) 12.2 H Lymph # [place] # 1.6 H Seg Neutrophils % 74.1 H Lymphocytes % (Manual) Monocytes % (Manual) Seg Neutrophils # 10.0 H INR APTT Heparin Anti-Xa Level POC Sodium POC Potassium Sodium Potassium Chloride Carbon Dioxide POC BUN BUN Glucose POC Glucose 245 H 344 H Hemoglobin A1c Calcium AST Total Protein Albumin Crossmatch 05/10/17 05/10/17 05/10/17 03:41 07:31 12:08 WBC RBC Hgb POC Hgb Hct POC Hct RDW Lymph % (Auto) [place] % (Auto) Lymph # [place] # Seg Neutrophils % Lymphocytes % (Manual) Monocytes % (Manual) Seg Neutrophils # INR APTT Heparin Anti-Xa Level POC Sodium POC Potassium Sodium 134 L Potassium Chloride Carbon Dioxide 21 L POC BUN BUN Glucose 171 H POC Glucose 127 H 172 H Hemoglobin A1c Calcium 8.2 L AST 51 H Total Protein Albumin 2.2 L Crossmatch 05/10/17 05/10/17 05/11/17 16:28 21:04 05:03 WBC 19.1 H RBC 3.64 L Hgb 10.7 L POC Hgb Hct 32.1 L POC Hct RDW Lymph % (Auto) 11.8 L [place] % (Auto) 10.8 H Lymph # [place] # 2.1 H Seg Neutrophils % 75.6 H Lymphocytes % (Manual) Monocytes % (Manual) Seg Neutrophils # 14.4 H INR APTT Heparin Anti-Xa Level POC Sodium POC Potassium Sodium Potassium Chloride Carbon Dioxide POC BUN BUN Glucose POC Glucose 197 H 295 H Hemoglobin A1c Calcium AST Total Protein Albumin Crossmatch 05/11/17 05/11/17 05/11/17 05:03 07:30 09:52 WBC RBC Hgb POC Hgb Hct POC Hct RDW Lymph % (Auto) [place] % (Auto) Lymph # [place] # Seg Neutrophils % Lymphocytes % (Manual) Monocytes % (Manual) Seg Neutrophils # INR APTT Heparin Anti-Xa Level POC Sodium POC Potassium Sodium Potassium 5.2 H Chloride Carbon Dioxide POC BUN BUN Glucose 143 H POC Glucose 118 H 124 H Hemoglobin A1c Calcium AST 51 H Total Protein Albumin 2.7 L Crossmatch 05/11/17 05/11/17 05/11/17 11:32 12:22 16:22 WBC RBC Hgb POC Hgb Hct POC Hct RDW Lymph % (Auto) [place] % (Auto) Lymph # [place] # Seg Neutrophils % Lymphocytes % (Manual) Monocytes % (Manual) Seg Neutrophils # INR APTT Heparin Anti-Xa Level < 0.10 L POC Sodium POC Potassium Sodium Potassium Chloride Carbon Dioxide POC BUN BUN Glucose POC Glucose 119 H 197 H Hemoglobin A1c Calcium AST Total Protein Albumin Crossmatch 05/11/17 05/12/17 05/12/17 22:06 05:35 05:35 WBC RBC 3.64 L Hgb 10.8 L POC Hgb Hct 32.5 L POC Hct RDW Lymph % (Auto) 8.0 L [place] % (Auto) 12.8 H Lymph # 0.8 L [place] # 1.3 H Seg Neutrophils % 77.9 H Lymphocytes % (Manual) Monocytes % (Manual) Seg Neutrophils # 8.2 H INR APTT Heparin Anti-Xa Level POC Sodium POC Potassium Sodium 136 L Potassium Chloride Carbon Dioxide POC BUN BUN Glucose 210 H POC Glucose 296 H Hemoglobin A1c Calcium 8.3 L AST Total Protein 6.2 L Albumin 2.6 L Crossmatch 05/12/17 05/12/17 07:26 11:41 WBC RBC Hgb 11.4 L POC Hgb Hct 35.1 L POC Hct RDW Lymph % (Auto) [place] % (Auto) Lymph # [place] # Seg Neutrophils % Lymphocytes % (Manual) Monocytes % (Manual) Seg Neutrophils # INR APTT Heparin Anti-Xa Level POC Sodium POC Potassium Sodium Potassium Chloride Carbon Dioxide POC BUN BUN Glucose POC Glucose 171 H Hemoglobin A1c Calcium AST Total Protein Albumin Crossmatch
[2017-05-12] MEDS: MORPHINE IV PRN (15:30)
[2017-05-12] MEDS: HEPARIN/ 0.45% NACL-25,000 UNIT/500 ML 25,000 UNIT/500 ML BAG IV SCH ×2 (15:31→23:45)
[2017-05-12] MEDS: LEVEMIR SUB-Q SCH (21:53)
[2017-05-13] MEDS: MORPHINE IV PRN ×2 (02:36→11:16)
[2017-05-13] MEDS: NORCO 5/325 PO PRN ×3 (05:54→23:19)
[2017-05-13] MEDS: HEPARIN/ 0.45% NACL-25,000 UNIT/500 ML 25,000 UNIT/500 ML BAG IV SCH ×2 (05:54→08:23)
[2017-05-13] MEDS: NOVOLOG SUB-Q SCH ×4 (07:28→23:21)
[2017-05-13] MEDS: PLAVIX PO SCH (09:23)
[2017-05-13] MEDS: PEPCID PO SCH (09:23)
[2017-05-13] MEDS: ZESTRIL PO SCH (09:24)
[2017-05-13] MEDS: COLACE PO SCH ×2 (09:27→23:19)
[2017-05-13] MEDS: SENOKOT PO SCH ×2 (09:27→23:18)
[2017-05-13] MEDS: TOPROL XL PO SCH (09:27)
[2017-05-13] MEDS: FOLBEE PLUS CZ PO SCH (09:27)
[2017-05-13] MEDS: LYRICA PO SCH ×2 (09:27→09:28)
--- NOTE | 2017-05-13 10:04 | Progress Note ---
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 Otherwise, conservative cardiac management. Continue plavix and moderate intensity statins Add aspirin if no contraindication Subjective Principal diagnosis: PVD s/p Angioplasty and Stenting; (L) Fep-CANE FEEDER bypass; DM; CHF Interval history: NO events overnight Objective Vital Signs Temp Pulse Pulse Resp BP BP Pulse Ox 05/13/17 09:27 78 139/71 05/13/17 09:25 98.5 F 78 20 139/71 05/13/17 09:24 78 139/71 05/12/17 22:00 80 05/12/17 19:00 99.6 F 86 20 117/58 96 05/12/17 11:15 84 153/78 05/12/17 11:12 84 153/78 - Physical Examination Narrative exam: vitals reviewed No acute distress HENT- carotids no bruit CVS- S1 S2 heard no significant murmur RS- NVBS heard P/A- Soft BS heard TEACHER MUSIC - non focal Extremities- warm. Dressing noted. Stable arpit General: No Apparent Distress HEENT: Positive: PERRL, Normocephaly Neck: Positive: trachea midline Neuro: Positive: Grossly Intact Abdomen: Positive: Soft Extremities: Present: Ulceration Noted - Labs and Meds Coagulation 05/12/17 Range/Units 11:41 PT 14.0 (12.2-14.9) Sec. INR 1.09 (0.87-1.13) APTT 32.6 (24.2-36.6) Sec. CBC 05/12/17 Range/Units 11:41 Hgb 11.4 L (11.8-15.2) gm/dl Hct 35.1 L (35.5-45.6) % Plt Count 259 (140-440) K/mm3
--- NOTE | 2017-05-13 10:55 | Progress Note ---
Assessment and Plan - Patient Problems (1) Atherosclerosis of [place] arteries of the extremities with ulceration Onset Date: 08/22/16 Current Visit: No Status: Acute Plan to address problem: S/P fem distal bypass, diminished doppler flow, Heparin restarted. Will need angio to enhance perfusion based on verbal reports. Discussed with patient. Subjective Date of service: 05/13/17 Principal diagnosis: PVD s/p Angioplasty and Stenting; (L) Fep-CALENDER TENDER bypass; DM; CHF Interval history: No complaints. Dressings changed- deep foot wound, pulses difficult to palpate. Objective - Constitutional Vitals: Vital Signs - 12hr 05/13/17 05/13/17 05/13/17 09:24 09:25 09:27 Temperature 98.5 F Pulse Rate 78 78 Pulse Rate [ 78 From Monitor] Respiratory 20 Rate Blood Pressure 139/71 139/71 Blood Pressure 139/71 [Left Arm] General appearance: Present: no acute distress - EENT Eyes: PERRL ENT: clear oral mucosa, dentition normal - Neck Neck: supple, normal ROM - Respiratory Respiratory effort: normal Respiratory: bilateral: CTA - Cardiovascular Rhythm: regular Heart Sounds: Present: S1 & S2 (ecchymosis on dorsum of foot, amputation cavity a little pale, no odor) Extremity abnormal: deformity - Gastrointestinal General gastrointestinal: Present: soft, non-tender, non-distended Rectal Exam: deferred - Genitourinary Male genitourinary: deferred - Integumentary Integumentary: clear, warm, dry - Musculoskeletal Musculoskeletal: strength equal bilaterally - Psychiatric Psychiatric: cooperative - Labs CBC & Chem 7: 05/12/17 11:41 05/12/17 05:35 Labs: Abnormal lab results 05/12/17 05/12/17 05/12/17 Range/Units 11:30 11:41 16:23 Hgb 11.4 L (11.8-15.2) gm/dl Hct 35.1 L (35.5-45.6) % Heparin Anti-Xa Level (0.3-0.7) U.I./ml POC Glucose 126 H 223 H (70-105) 05/12/17 05/12/17 05/13/17 Range/Units 21:14 21:50 04:21 Hgb (11.8-15.2) gm/dl Hct (35.5-45.6) % Heparin Anti-Xa Level 0.22 L 0.23 L (0.3-0.7) U.I./ml POC Glucose 308 H (70-105) 05/13/17 Range/Units 07:24 Hgb (11.8-15.2) gm/dl Hct (35.5-45.6) % Heparin Anti-Xa Level (0.3-0.7) U.I./ml POC Glucose 112 H (70-105)
--- NOTE | 2017-05-13 13:53 | Progress Note ---
Assessment and Plan - Patient Problems (1) Ischemia of left lower extremity Current Visit: Yes Status: Acute Plan to address problem: Status post femoropopliteal bypass. Continue current management, monitor coagulation status. Pain control as ordered (2) CAD (coronary artery disease) Current Visit: Yes Status: Chronic Qualifiers: Coronary Disease-Associated Artery/Lesion type: [place] artery [place] vs. transplanted heart: N Associated angina: without angina Plan to address problem: Clinically stable no symptoms of chest pain (3) IDDM (insulin dependent diabetes mellitus) Current Visit: Yes Status: Chronic (4) Peripheral neuropathy Current Visit: Yes Status: Chronic Qualifiers: Peripheral neuropathy type: polyneuropathy associated with underlying disease Qualified Code(s): G63 - Polyneuropathy in diseases classified elsewhere Plan to address problem: Continue current management (5) Atherosclerosis of [place] arteries of the extremities with ulceration Onset Date: 08/22/16 Current Visit: No Status: Acute Subjective Date of service: 05/13/17 Principal diagnosis: PVD s/p Angioplasty and Stenting; (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 Dr. Badillo Patient seen and examined charts reviewed Patient denied any new complaints no chest pain or shortness of breath and no fever reported tolerating orally well vital stable Objective - Exam Narrative Exam: GENERAL: Resting comfortably in bed no acute distress HEENT: [Patient is not pale, not jaundiced, not cyanosed.] NECK: [No JVD, no thyroid enlargement and no lymphadenopathy.] CHEST/LUNGS: [Good air exchange bilaterally, no wheeze, no rales and no rhonchi. ] [No chest wall tenderness, percussion is normal, symmetrical chest wall.] HEART/CARDIOVASCULAR: [Regular rate and rhythm, S1 and S2 only, no murmur.] ABDOMEN: [Abdomen is soft, nondistended, no guarding, no rebound tenderness, no masses palpable per abdomen, active bowel sounds.] SKIN: [Warm and dry, no rash.] NEURO: [Awake, alert, oriented x3, speech normal. Power 5/5 in all the extremities.] EXTREMITIES: Left extremity dressed. Palpable peripheral pulses bilaterally - Constitutional Vitals: Vital Signs - 12hr 05/13/17 05/13/17 05/13/17 09:24 09:25 09:27 Temperature 98.5 F Pulse Rate 78 78 Pulse Rate [ 78 From Monitor] Respiratory 20 Rate Blood Pressure 139/71 139/71 Blood Pressure 139/71 [Left Arm] - Labs CBC & Chem 7: 05/12/17 11:41 05/12/17 05:35 Labs: Abnormal lab results 05/12/17 05/12/17 05/12/17 Range/Units 11:30 16:23 21:14 Heparin Anti-Xa Level 0.22 L (0.3-0.7) U.I./ml POC Glucose 126 H 223 H (70-105) 05/12/17 05/13/17 05/13/17 Range/Units 21:50 04:21 07:24 Heparin Anti-Xa Level 0.23 L (0.3-0.7) U.I./ml POC Glucose 308 H 112 H (70-105) 05/13/17 05/13/17 Range/Units 11:46 11:57 Heparin Anti-Xa Level 0.21 L (0.3-0.7) U.I./ml POC Glucose 206 H (70-105)
[2017-05-13] MEDS: LEVEMIR SUB-Q SCH (23:21)
[2017-05-14] MEDS: HEPARIN/ 0.45% NACL-25,000 UNIT/500 ML 25,000 UNIT/500 ML BAG IV SCH ×2 (02:09→23:32)
[2017-05-14] MEDS: NOVOLOG SUB-Q SCH ×4 (07:28→22:16)
[2017-05-14 07:37] LABS: Hematocrit 33.1 % (35.5-45.6); Hemoglobin 10.9 gm/dl (11.8-15.2)
[2017-05-14] MEDS: MORPHINE IV PRN ×3 (09:49→22:17)
--- NOTE | 2017-05-14 10:43 | Progress Note ---
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 Objective Vital Signs Temp Pulse Pulse Resp BP Pulse Ox 05/13/17 22:00 99.7 F H 70 82 18 125/54 92 05/13/17 19:00 99.7 F H 82 20 125/54 95 - Physical Examination General: No Apparent Distress HEENT: Positive: PERRL Neck: Positive: trachea midline Cardiac: Positive: Reg Rate and Rhythm - Labs and Meds CBC 05/14/17 Range/Units 07:13 Hgb 10.9 L (11.8-15.2) gm/dl Hct 33.1 L (35.5-45.6) % Plt Count 293 (140-440) K/mm3
--- NOTE | 2017-05-14 11:53 | Progress Note ---
Assessment and Plan - Patient Problems (1) Ischemia of left lower extremity Current Visit: Yes Status: Acute Plan to address problem: Status post femoropopliteal bypass. Continue current management, monitor coagulation status. Pain control as ordered (2) CAD (coronary artery disease) Current Visit: Yes Status: Chronic Qualifiers: Coronary Disease-Associated Artery/Lesion type: [place] artery [place] vs. transplanted heart: N Associated angina: without angina Plan to address problem: Clinically stable no symptoms of chest pain (3) IDDM (insulin dependent diabetes mellitus) Current Visit: Yes Status: Chronic (4) Peripheral neuropathy Current Visit: Yes Status: Chronic Qualifiers: Peripheral neuropathy type: polyneuropathy associated with underlying disease Qualified Code(s): G63 - Polyneuropathy in diseases classified elsewhere Plan to address problem: Continue current management (5) Atherosclerosis of [place] arteries of the extremities with ulceration Onset Date: 08/22/16 Current Visit: No Status: Acute Subjective Date of service: 05/14/17 Principal diagnosis: PVD s/p Angioplasty and Stenting; (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 Dr. Badillo Patient seen and examined charts reviewed Patient denied any new complaints no chest pain or shortness of breath and no fever reported tolerating orally well vital stable Awaiting surgery for lower extremity PAD Objective - Exam Narrative Exam: GENERAL: Resting comfortably in bed no acute distress HEENT: [Patient is not pale, not jaundiced, not cyanosed.] NECK: [No JVD, no thyroid enlargement and no lymphadenopathy.] CHEST/LUNGS: [Good air exchange bilaterally, no wheeze, no rales and no rhonchi. ] [No chest wall tenderness, percussion is normal, symmetrical chest wall.] HEART/CARDIOVASCULAR: [Regular rate and rhythm, S1 and S2 only, no murmur.] ABDOMEN: [Abdomen is soft, nondistended, no guarding, no rebound tenderness, no masses palpable per abdomen, active bowel sounds.] SKIN: [Warm and dry, no rash.] NEURO: [Awake, alert, oriented x3, speech normal. Power 5/5 in all the extremities.] EXTREMITIES: Left extremity dressed. Palpable peripheral pulses bilaterally - Constitutional Vitals: Vital Signs - 12hr 05/14/17 09:00 Temperature 99.5 F Pulse Rate [ 77 From Monitor] Respiratory 18 Rate Blood Pressure 139/70 [Left Arm] O2 Sat by Pulse 96 Oximetry - Labs CBC & Chem 7: 05/14/17 07:13 05/12/17 05:35 Labs: Abnormal lab results 05/13/17 05/13/17 05/13/17 Range/Units 11:46 11:57 16:42 Hgb (11.8-15.2) gm/dl Hct (35.5-45.6) % Heparin Anti-Xa Level 0.21 L (0.3-0.7) U.I./ml POC Glucose 206 H 217 H (70-105) 05/13/17 05/14/17 Range/Units 21:44 07:13 Hgb 10.9 L (11.8-15.2) gm/dl Hct 33.1 L (35.5-45.6) % Heparin Anti-Xa Level (0.3-0.7) U.I./ml POC Glucose 245 H (70-105)
[2017-05-14] MEDS ORDERED: NACL 0.9% 500 ML 500 ML ONE (12:03)
[2017-05-14] MEDS ORDERED: ANCEF/STERILE WATER 2 GM/20 ML 2 GM/20 ML SYRINGE IV ONE (12:03)
[2017-05-14] MEDS ORDERED: XYLOCAINE 2% INFILTRATI ONE (12:03)
[2017-05-14] MEDS ORDERED: HEPARIN/NS 5000 UNIT/500ML(CATH LAB) 1,000 ML IR ONE (12:03)
[2017-05-14] MEDS: SUBLIMAZE ONE ×6 (12:13→13:32)
[2017-05-14] MEDS: VERSED ONE ×5 (12:13→13:32)
[2017-05-14] MEDS ORDERED: BENADRYL ONE (12:17)
[2017-05-14] MEDS: HEPARIN 10,000 UNITS/10 ML ONE ×2 (12:26→13:20)
[2017-05-14] MEDS ORDERED: WATER FOR INJ (PF) 10 ML ONE ×2 (12:40→13:40)
[2017-05-14] MEDS ORDERED: CATHFLO ONE ×3 (12:40→13:42)
[2017-05-14] MEDS ORDERED: HEPARIN/NS 5000 UNIT/500ML(CATH LAB) 500 ML IR ONE (12:54)
[2017-05-14] MEDS ORDERED: NITROGLYCERIN SYRINGE 3 ML ONE ×2 (13:01→13:48)
--- NOTE | 2017-05-14 14:28 | Operative Report ---
Operative Report Operative Report: Date of Procedure: 05/14/2017 Pre-operative Diagnosis: PVD with Nonhealing Left Foot Wound Post-operative Diagnosis: Same with Thrombosed Left Femoral Artery to Posterior Tibial Artery Bypass Procedure(s): 1. Ultrasound-Guided Access Right Common Femoral Artery 2. Diagnostic Left Lower Extremity Arteriogram (Patient Had a Clinical Change) 3. Percutaneous Mechanical Thrombectomy Of Left Femoral Artery to Posterior Tibial Artery Bypass Graft with CAT 5 [place]igo Catheter And AngioJet Catheter 4. Percutaneous Mechanical Thrombectomy of Left Posterior Tibial Artery with CAT 5 [place] Indigo Catheter 5. Angioplasty of the Posterior Tibial Artery with 3 x 120 Balloon 6. Angioplasty of Left Femoral Artery To Posterior Tibial Artery Bypass Graft with 5 x 200 Balloon 7. Closure of Right Femoral Arteriotomy with 6 [place] Angio-Seal 8. Radiological Supervision and Interpretation Surgeon: Elias Meza M.D. Project Superintendent: Noemi Anesthesia: Local and IV sedation EBL: Minimal Counts: Correct Complications: None Condition: Stable Specimen: None Indication: The patient is a 76-year-old male with a history of peripheral vascular disease and gangrene of his left foot. He underwent a left femoral artery to posterior tibial artery bypass with in situ greater saphenous vein graft. After the bypass he underwent ray amputation of both his left second and third toes. His wound has healed poorly and there is a monophasic signal in the posterior tibial artery. It was initially felt that he required arteriogram with possible intervention for branches of the graft that were creating steal. He was given the risks, benefits, and alternative procedures and consented to procedure. Angiographic Findings: The left lower extremity arteriogram demonstrated the left common iliac, hypogastric, and external iliac were patent. The left common and profunda arteries were patent. The proximal SFA was patent down to the distal SFA were included within previously placed stents. The bypass graft was occluded with reconstitution in the mid posterior tibial artery distal to the anastomosis. After intervention the bypass graft was widely patent. There was approximately 15% residual stenosis at the distal anastomosis however this was not flow- limiting. The remainder of the posterior tibial artery above the ankle was widely patent. There appeared to be a small amount of [id number] thrombus in the distal posterior tibial artery in the foot and was treated with an injection of TPA as well as nitroglycerin. Description of Procedure: The patient was brought into the cathlab and laid in supine position. After he was adequately sedated his right groin was prepped and draped in normal sterile fashion. Ultrasound was used to identify the right common femoral artery and the overlying skin and soft tissue was anesthetized with lidocaine. A small stab incision was created and then a micropuncture technique was used to ultrasound guidance and the right common femoral artery. A Bentson wire was advanced into the aorta under fluoroscopy and then a 5 [place] sheath was placed by Seldinger technique. An Omni Flush catheter and the 0.035 Bentson wire were advanced up and over the bifurcation and the left lower extremity arteriogram was performed with the previously described findings. The catheter and wire were advanced into the common femoral artery and then the 5 [place] sheath was exchanged for 6 [place] 45 cm destination sheath by Seldinger technique. I was able to cannulate the graft using a 0.035 [place] catheter and 0.018 V18 wire. Wire and catheter were advanced into the posterior tibial artery which was confirmed by arteriogram. I then advanced the CAT 5 [place] Indigo Catheter into the posterior tibial artery and performed percutaneous mechanical thrombectomy of the posterior tibial artery as well as the bypass graft. The follow-up arteriogram revealed residual thrombus within the graft however it was patent. I laced the graft with 10 mg of TPA and allowed this to dwell within the graft for approximately 10 minutes. I then followed up with the AngioJet catheter to remove residual thrombus. Follow up arteriography revealed residual thrombus at the distal anastomosis so I advanced a 6 [place] guide catheter and was able to aspirate this thrombus. I then advanced a 0.014 Choice PT wire into the posterior tibial artery and performed balloon angioplasty of the posterior tibial artery in the foot with a 2.5 x 120 balloon followed by 3 x 120 balloon and the remainder of the posterior tibial artery including at the anastomosis. I then performed balloon angioplasty of the bypass graft using a 5 x 200 balloon. Follow-up arteriogram revealed that the bypass graft was widely patent with minimal residual stenosis at the distal anastomosis however this was not flow-limiting. There appeared to be a small amount of thrombus in the distal posterior tibial artery which I ballooned again with a 2.5 balloon and then injected another 10 mg of TPA and 600 g and nitroglycerin. The angiogram demonstrated the clot was significantly reduced and did not appear to limit flow into the foot. I then pulled the sheath back into the right external iliac artery and advanced the Bentson wire into the aorta. A 6 [place] Angio-Seal was then used for closure. The patient tolerated the procedure well. All sponge, needle, and instrument counts were correct. The patient was taken to the recovery area in stable condition.
[2017-05-14] MEDS: PEPCID PO SCH (16:59)
[2017-05-14] MEDS: PLAVIX PO SCH (16:59)
[2017-05-14] MEDS: LYRICA PO SCH ×2 (17:00)
[2017-05-14] MEDS: COLACE PO SCH ×2 (17:01→22:19)
[2017-05-14] MEDS: SENOKOT PO SCH ×2 (17:01→22:19)
[2017-05-14] MEDS: ZESTRIL PO SCH (17:02)
[2017-05-14] MEDS: FOLBEE PLUS CZ PO SCH (17:05)
[2017-05-14] MEDS: TOPROL XL PO SCH (17:06)
[2017-05-14] MEDS: NORCO 5/325 PO PRN (19:36)
--- NOTE | 2017-05-14 21:08 | Progress Note ---
Assessment and Plan No complaint of chest pain or shortness of breath. On room air. O2 saturation 100% - Patient Problems (1) Acute deep vein thrombosis (DVT) of left peroneal vein Onset Date: 07/13/16 Current Visit: No Status: Acute Plan to address problem: Patient is on I/V Heparin. Monitor Heparin anti Xa level. Todays heparin Anti xa level .57. (2) CAD (coronary artery disease) Current Visit: Yes Status: Chronic Qualifiers: Coronary Disease-Associated Artery/Lesion type: [place] artery [place] vs. transplanted heart: N Associated angina: without angina Plan to address problem: Mangement as per cardiology. (3) IDDM (insulin dependent diabetes mellitus) Current Visit: Yes Status: Chronic Plan to address problem: Management as per primary care. (4) Peripheral neuropathy Current Visit: Yes Status: Chronic Qualifiers: Peripheral neuropathy type: polyneuropathy associated with underlying disease Qualified Code(s): G63 - Polyneuropathy in diseases classified elsewhere Plan to address problem: Management as per primary care. (5) Hypertension Onset Date: 07/13/16 Current Visit: No Status: Chronic Qualifiers: Hypertension type: essential hypertension Qualified Code(s): I10 - Essential (primary) hypertension Plan to address problem: Management as per primary care. Subjective Date of service: 05/14/17 Principal diagnosis: PVD s/p Angioplasty and Stenting; (L) Fep-FORENSIC NURSE bypass; DM; CHF Interval history: No complaint of chest pain or shortness of breath. On room air. O2 saturation 100% Objective Vital Signs - 12hr 05/14/17 05/14/17 05/14/17 10:00 15:11 17:02 Temperature 99.3 F Pulse Rate 89 56 L Pulse Rate [ 88 From Monitor] Respiratory 16 Rate Blood Pressure 152/90 Blood Pressure 148/79 [Left Arm] O2 Sat by Pulse 100 Oximetry 05/14/17 17:06 Temperature Pulse Rate 56 L Pulse Rate [ From Monitor] Respiratory Rate Blood Pressure 152/90 Blood Pressure [Left Arm] O2 Sat by Pulse Oximetry Constitutional: no acute distress, alert Eyes: non-icteric ENT: oropharynx moist Neck: supple, no lymphadenopathy Ascultation: Bilateral: diminished breath sounds Cardiovascular: regular rate and rhythm Gastrointestinal: normoactive bowel sounds, soft, non-tender Integumentary: cellulitis (Left foot.) Extremities: no cyanosis, no edema, other (left foot in clean dressing and MIKALA bandage) Neurologic: normal mental status, non-focal exam, pupils equal and round, motor strength normal and Psychiatric: mood appropriate, affect normal CBC and BMP: 05/14/17 07:13 05/12/17 05:35 ABG, PT/INR, D-dimer: PT/INR, D-dimer PT 14.0 Sec. (12.2-14.9) 05/12/17 11:41 INR 1.09 (0.87-1.13) 05/12/17 11:41 Abnormal lab findings: Abnormal Labs 05/01/17 05/01/17 05/01/17 14:55 14:55 14:55 WBC 12.0 H RBC Hgb POC Hgb Hct POC Hct RDW 12.9 L Lymph % (Auto) 6.3 L [place] % (Auto) Lymph # 0.8 L [place] # 0.9 H Seg Neutrophils % 85.9 H Lymphocytes % (Manual) Monocytes % (Manual) Seg Neutrophils # 10.3 H INR 1.15 H APTT 37.7 H Heparin Anti-Xa Level POC Sodium POC Potassium Sodium Potassium Chloride 97.8 L Carbon Dioxide POC BUN BUN 23 H Glucose 321 H POC Glucose Hemoglobin A1c Calcium AST Total Protein Albumin Crossmatch 05/01/17 05/01/17 05/02/17 18:32 21:49 03:51 WBC RBC Hgb POC Hgb Hct POC Hct RDW 12.8 L Lymph % (Auto) [place] % (Auto) 12.4 H Lymph # [place] # 1.0 H Seg Neutrophils % Lymphocytes % (Manual) Monocytes % (Manual) Seg Neutrophils # INR APTT Heparin Anti-Xa Level POC Sodium POC Potassium Sodium Potassium Chloride Carbon Dioxide POC BUN BUN Glucose POC Glucose 247 H 280 H Hemoglobin A1c Calcium AST Total Protein Albumin Crossmatch 05/02/17 05/02/17 05/02/17 03:51 03:51 07:27 WBC RBC Hgb POC Hgb Hct POC Hct RDW Lymph % (Auto) [place] % (Auto) Lymph # [place] # Seg Neutrophils % Lymphocytes % (Manual) Monocytes % (Manual) Seg Neutrophils # INR APTT Heparin Anti-Xa Level 0.22 L POC Sodium POC Potassium Sodium Potassium Chloride Carbon Dioxide POC BUN BUN Glucose 136 H POC Glucose 115 H Hemoglobin A1c Calcium AST Total Protein Albumin Crossmatch 05/02/17 05/02/17 05/02/17 11:50 20:33 21:56 WBC RBC Hgb POC Hgb Hct POC Hct RDW Lymph % (Auto) [place] % (Auto) Lymph # [place] # Seg Neutrophils % Lymphocytes % (Manual) Monocytes % (Manual) Seg Neutrophils # INR APTT Heparin Anti-Xa Level 0.24 L POC Sodium POC Potassium Sodium Potassium Chloride Carbon Dioxide POC BUN BUN Glucose POC Glucose 165 H 248 H Hemoglobin A1c Calcium AST Total Protein Albumin Crossmatch 05/03/17 05/03/17 05/03/17 03:23 05:14 05:14 WBC RBC Hgb POC Hgb Hct POC Hct RDW 12.8 L Lymph % (Auto) [place] % (Auto) 14.1 H Lymph # [place] # 1.2 H Seg Neutrophils % Lymphocytes % (Manual) Monocytes % (Manual) Seg Neutrophils # INR APTT 101.1 H* Heparin Anti-Xa Level POC Sodium POC Potassium Sodium 136 L Potassium Chloride Carbon Dioxide POC BUN BUN Glucose 116 H POC Glucose Hemoglobin A1c Calcium AST Total Protein Albumin 3.0 L Crossmatch 05/03/17 05/03/17 05/03/17 05:14 11:48 11:51 WBC RBC Hgb POC Hgb Hct POC Hct RDW Lymph % (Auto) [place] % (Auto) Lymph # [place] # Seg Neutrophils % Lymphocytes % (Manual) Monocytes % (Manual) Seg Neutrophils # INR APTT Heparin Anti-Xa Level 0.26 L POC Sodium POC Potassium Sodium Potassium Chloride Carbon Dioxide POC BUN BUN Glucose POC Glucose 128 H Hemoglobin A1c 10.2 H Calcium AST Total Protein Albumin Crossmatch 05/03/17 05/03/17 05/04/17 18:50 22:17 04:02 WBC RBC Hgb POC Hgb Hct POC Hct RDW 12.9 L Lymph % (Auto) [place] % (Auto) Lymph # [place] # Seg Neutrophils % Lymphocytes % (Manual) 13.0 L Monocytes % (Manual) 9.0 H Seg Neutrophils # INR APTT Heparin Anti-Xa Level POC Sodium POC Potassium Sodium Potassium Chloride Carbon Dioxide POC BUN BUN Glucose POC Glucose 314 H 312 H Hemoglobin A1c Calcium AST Total Protein Albumin Crossmatch 05/04/17 05/04/17 05/04/17 04:02 07:49 11:54 WBC RBC Hgb POC Hgb Hct POC Hct RDW Lymph % (Auto) [place] % (Auto) Lymph # [place] # Seg Neutrophils % Lymphocytes % (Manual) Monocytes % (Manual) Seg Neutrophils # INR APTT Heparin Anti-Xa Level POC Sodium POC Potassium Sodium 134 L Potassium 5.2 H Chloride 96.2 L Carbon Dioxide POC BUN BUN 21 H Glucose 251 H POC Glucose 177 H 186 H Hemoglobin A1c Calcium AST Total Protein Albumin 3.0 L Crossmatch 05/04/17 05/04/17 05/05/17 17:46 22:51 05:09 WBC RBC Hgb POC Hgb Hct POC Hct RDW Lymph % (Auto) [place] % (Auto) Lymph # [place] # Seg Neutrophils % Lymphocytes % (Manual) Monocytes % (Manual) Seg Neutrophils # INR APTT Heparin Anti-Xa Level POC Sodium POC Potassium Sodium 135 L Potassium Chloride Carbon Dioxide POC BUN BUN Glucose 179 H POC Glucose 244 H 265 H Hemoglobin A1c Calcium AST Total Protein Albumin 2.9 L Crossmatch 05/05/17 05/05/17 05/05/17 05:09 07:39 11:24 WBC RBC Hgb POC Hgb Hct POC Hct RDW Lymph % (Auto) [place] % (Auto) Lymph # [place] # Seg Neutrophils % Lymphocytes % (Manual) Monocytes % (Manual) Seg Neutrophils # INR APTT Heparin Anti-Xa Level 0.15 L 0.29 L POC Sodium POC Potassium Sodium Potassium Chloride Carbon Dioxide POC BUN BUN Glucose POC Glucose 153 H Hemoglobin A1c Calcium AST Total Protein Albumin Crossmatch 05/05/17 05/05/17 05/05/17 11:53 16:33 22:05 WBC RBC Hgb POC Hgb Hct POC Hct RDW Lymph % (Auto) [place] % (Auto) Lymph # [place] # Seg Neutrophils % Lymphocytes % (Manual) Monocytes % (Manual) Seg Neutrophils # INR APTT Heparin Anti-Xa Level POC Sodium POC Potassium Sodium Potassium Chloride Carbon Dioxide POC BUN BUN Glucose POC Glucose 171 H 317 H 313 H Hemoglobin A1c Calcium AST Total Protein Albumin Crossmatch 05/06/17 05/06/17 05/06/17 07:32 11:47 16:28 WBC RBC Hgb POC Hgb Hct POC Hct RDW Lymph % (Auto) [place] % (Auto) Lymph # [place] # Seg Neutrophils % Lymphocytes % (Manual) Monocytes % (Manual) Seg Neutrophils # INR APTT Heparin Anti-Xa Level POC Sodium POC Potassium Sodium Potassium Chloride Carbon Dioxide POC BUN BUN Glucose POC Glucose 176 H 210 H 283 H Hemoglobin A1c Calcium AST Total Protein Albumin Crossmatch 05/06/17 05/07/17 05/07/17 21:33 03:56 07:11 WBC RBC Hgb POC Hgb Hct POC Hct RDW Lymph % (Auto) [place] % (Auto) Lymph # [place] # Seg Neutrophils % Lymphocytes % (Manual) Monocytes % (Manual) Seg Neutrophils # INR APTT Heparin Anti-Xa Level 0.10 L POC Sodium POC Potassium Sodium Potassium Chloride Carbon Dioxide POC BUN BUN Glucose POC Glucose 264 H 276 H Hemoglobin A1c Calcium AST Total Protein Albumin Crossmatch 05/07/17 05/07/17 05/07/17 11:48 11:48 16:11 WBC RBC Hgb POC Hgb Hct POC Hct RDW Lymph % (Auto) [place] % (Auto) Lymph # [place] # Seg Neutrophils % Lymphocytes % (Manual) Monocytes % (Manual) Seg Neutrophils # INR APTT Heparin Anti-Xa Level POC Sodium 137 L POC Potassium 5.5 H Sodium Potassium Chloride Carbon Dioxide POC BUN 31 H BUN Glucose POC Glucose 128 H 158 H Hemoglobin A1c Calcium AST Total Protein Albumin Crossmatch See Detail 05/07/17 05/07/17 05/07/17 16:44 20:28 22:47 WBC RBC Hgb POC Hgb 11.6 L Hct POC Hct 34 L RDW Lymph % (Auto) [place] % (Auto) Lymph # [place] # Seg Neutrophils % Lymphocytes % (Manual) Monocytes % (Manual) Seg Neutrophils # INR APTT Heparin Anti-Xa Level POC Sodium POC Potassium 5.0 H Sodium Potassium Chloride Carbon Dioxide POC BUN 27 H BUN Glucose POC Glucose 170 H 203 H 253 H Hemoglobin A1c Calcium AST Total Protein Albumin Crossmatch 05/08/17 05/08/17 05/08/17 04:23 07:57 12:01 WBC RBC Hgb POC Hgb Hct POC Hct RDW Lymph % (Auto) [place] % (Auto) Lymph # [place] # Seg Neutrophils % Lymphocytes % (Manual) Monocytes % (Manual) Seg Neutrophils # INR APTT Heparin Anti-Xa Level POC Sodium POC Potassium Sodium Potassium 5.3 H D Chloride Carbon Dioxide 19 L POC BUN BUN 29 H Glucose 223 H POC Glucose 258 H 282 H Hemoglobin A1c Calcium 8.2 L AST Total Protein Albumin Crossmatch 05/08/17 05/08/17 05/08/17 15:42 19:44 21:39 WBC RBC Hgb POC Hgb Hct POC Hct RDW Lymph % (Auto) [place] % (Auto) Lymph # [place] # Seg Neutrophils % Lymphocytes % (Manual) Monocytes % (Manual) Seg Neutrophils # INR APTT Heparin Anti-Xa Level 0.25 L POC Sodium POC Potassium Sodium Potassium Chloride Carbon Dioxide POC BUN BUN Glucose POC Glucose 280 H 329 H Hemoglobin A1c Calcium AST Total Protein Albumin Crossmatch 05/09/17 05/09/17 05/09/17 01:52 08:27 12:02 WBC RBC Hgb POC Hgb Hct POC Hct RDW Lymph % (Auto) [place] % (Auto) Lymph # [place] # Seg Neutrophils % Lymphocytes % (Manual) Monocytes % (Manual) Seg Neutrophils # INR APTT Heparin Anti-Xa Level 0.29 L POC Sodium POC Potassium Sodium Potassium Chloride Carbon Dioxide POC BUN BUN Glucose POC Glucose 187 H 190 H Hemoglobin A1c Calcium AST Total Protein Albumin Crossmatch 05/09/17 05/09/17 05/10/17 16:42 21:58 03:41 WBC 13.4 H RBC 3.61 L Hgb 10.8 L POC Hgb Hct 31.9 L POC Hct RDW 13.1 L Lymph % (Auto) 12.9 L [place] % (Auto) 12.2 H Lymph # [place] # 1.6 H Seg Neutrophils % 74.1 H Lymphocytes % (Manual) Monocytes % (Manual) Seg Neutrophils # 10.0 H INR APTT Heparin Anti-Xa Level POC Sodium POC Potassium Sodium Potassium Chloride Carbon Dioxide POC BUN BUN Glucose POC Glucose 245 H 344 H Hemoglobin A1c Calcium AST Total Protein Albumin Crossmatch 05/10/17 05/10/17 05/10/17 03:41 07:31 12:08 WBC RBC Hgb POC Hgb Hct POC Hct RDW Lymph % (Auto) [place] % (Auto) Lymph # [place] # Seg Neutrophils % Lymphocytes % (Manual) Monocytes % (Manual) Seg Neutrophils # INR APTT Heparin Anti-Xa Level POC Sodium POC Potassium Sodium 134 L Potassium Chloride Carbon Dioxide 21 L POC BUN BUN Glucose 171 H POC Glucose 127 H 172 H Hemoglobin A1c Calcium 8.2 L AST 51 H Total Protein Albumin 2.2 L Crossmatch 05/10/17 05/10/17 05/11/17 16:28 21:04 05:03 WBC 19.1 H RBC 3.64 L Hgb 10.7 L POC Hgb Hct 32.1 L POC Hct RDW Lymph % (Auto) 11.8 L [place] % (Auto) 10.8 H Lymph # [place] # 2.1 H Seg Neutrophils % 75.6 H Lymphocytes % (Manual) Monocytes % (Manual) Seg Neutrophils # 14.4 H INR APTT Heparin Anti-Xa Level POC Sodium POC Potassium Sodium Potassium Chloride Carbon Dioxide POC BUN BUN Glucose POC Glucose 197 H 295 H Hemoglobin A1c Calcium AST Total Protein Albumin Crossmatch 05/11/17 05/11/17 05/11/17 05:03 07:30 09:52 WBC RBC Hgb POC Hgb Hct POC Hct RDW Lymph % (Auto) [place] % (Auto) Lymph # [place] # Seg Neutrophils % Lymphocytes % (Manual) Monocytes % (Manual) Seg Neutrophils # INR APTT Heparin Anti-Xa Level POC Sodium POC Potassium Sodium Potassium 5.2 H Chloride Carbon Dioxide POC BUN BUN Glucose 143 H POC Glucose 118 H 124 H Hemoglobin A1c Calcium AST 51 H Total Protein Albumin 2.7 L Crossmatch 05/11/17 05/11/17 05/11/17 11:32 12:22 16:22 WBC RBC Hgb POC Hgb Hct POC Hct RDW Lymph % (Auto) [place] % (Auto) Lymph # [place] # Seg Neutrophils % Lymphocytes % (Manual) Monocytes % (Manual) Seg Neutrophils # INR APTT Heparin Anti-Xa Level < 0.10 L POC Sodium POC Potassium Sodium Potassium Chloride Carbon Dioxide POC BUN BUN Glucose POC Glucose 119 H 197 H Hemoglobin A1c Calcium AST Total Protein Albumin Crossmatch 05/11/17 05/12/17 05/12/17 22:06 05:35 05:35 WBC RBC 3.64 L Hgb 10.8 L POC Hgb Hct 32.5 L POC Hct RDW Lymph % (Auto) 8.0 L [place] % (Auto) 12.8 H Lymph # 0.8 L [place] # 1.3 H Seg Neutrophils % 77.9 H Lymphocytes % (Manual) Monocytes % (Manual) Seg Neutrophils # 8.2 H INR APTT Heparin Anti-Xa Level POC Sodium POC Potassium Sodium 136 L Potassium Chloride Carbon Dioxide POC BUN BUN Glucose 210 H POC Glucose 296 H Hemoglobin A1c Calcium 8.3 L AST Total Protein 6.2 L Albumin 2.6 L Crossmatch 05/12/17 05/12/17 05/12/17 07:26 11:30 11:41 WBC RBC Hgb 11.4 L POC Hgb Hct 35.1 L POC Hct RDW Lymph % (Auto) [place] % (Auto) Lymph # [place] # Seg Neutrophils % Lymphocytes % (Manual) Monocytes % (Manual) Seg Neutrophils # INR APTT Heparin Anti-Xa Level POC Sodium POC Potassium Sodium Potassium Chloride Carbon Dioxide POC BUN BUN Glucose POC Glucose 171 H 126 H Hemoglobin A1c Calcium AST Total Protein Albumin Crossmatch 05/12/17 05/12/17 05/12/17 16:23 21:14 21:50 WBC RBC Hgb POC Hgb Hct POC Hct RDW Lymph % (Auto) [place] % (Auto) Lymph # [place] # Seg Neutrophils % Lymphocytes % (Manual) Monocytes % (Manual) Seg Neutrophils # INR APTT Heparin Anti-Xa Level 0.22 L POC Sodium POC Potassium Sodium Potassium Chloride Carbon Dioxide POC BUN BUN Glucose POC Glucose 223 H 308 H Hemoglobin A1c Calcium AST Total Protein Albumin Crossmatch 05/13/17 05/13/17 05/13/17 04:21 07:24 11:46 WBC RBC Hgb POC Hgb Hct POC Hct RDW Lymph % (Auto) [place] % (Auto) Lymph # [place] # Seg Neutrophils % Lymphocytes % (Manual) Monocytes % (Manual) Seg Neutrophils # INR APTT Heparin Anti-Xa Level 0.23 L POC Sodium POC Potassium Sodium Potassium Chloride Carbon Dioxide POC BUN BUN Glucose POC Glucose 112 H 206 H Hemoglobin A1c Calcium AST Total Protein Albumin Crossmatch 05/13/17 05/13/17 05/13/17 11:57 16:42 21:44 WBC RBC Hgb POC Hgb Hct POC Hct RDW Lymph % (Auto) [place] % (Auto) Lymph # [place] # Seg Neutrophils % Lymphocytes % (Manual) Monocytes % (Manual) Seg Neutrophils # INR APTT Heparin Anti-Xa Level 0.21 L POC Sodium POC Potassium Sodium Potassium Chloride Carbon Dioxide POC BUN BUN Glucose POC Glucose 217 H 245 H Hemoglobin A1c Calcium AST Total Protein Albumin Crossmatch 05/14/17 05/14/17 07:13 16:03 WBC RBC Hgb 10.9 L POC Hgb Hct 33.1 L POC Hct RDW Lymph % (Auto) [place] % (Auto) Lymph # [place] # Seg Neutrophils % Lymphocytes % (Manual) Monocytes % (Manual) Seg Neutrophils # INR APTT Heparin Anti-Xa Level POC Sodium POC Potassium Sodium Potassium Chloride Carbon Dioxide POC BUN BUN Glucose POC Glucose 144 H Hemoglobin A1c Calcium AST Total Protein Albumin Crossmatch
[2017-05-14] MEDS: LEVEMIR SUB-Q SCH (22:15)
[2017-05-15] MEDS: NORCO 5/325 PO PRN ×2 (01:17→09:53)
[2017-05-15] MEDS: MORPHINE IV PRN ×3 (03:49→23:00)
--- NOTE | 2017-05-15 08:17 | Progress Note ---
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 Hyperlipidemia - statin therapy recommended Hypertension - BP adequately controlled. Maximize medications as tolerated. Subjective Date of service: 05/15/17 Principal diagnosis: PVD s/p Angioplasty and Stenting; (L) Fep-CHECK GRADER bypass; DM; CHF Objective Vital Signs Temp Pulse Pulse Resp BP BP Pulse Ox 05/14/17 22:00 101.4 F H 93 H 18 131/64 05/14/17 17:06 56 L 152/90 05/14/17 17:02 56 L 152/90 05/14/17 15:11 99.3 F 88 16 148/79 100 05/14/17 10:00 89 05/14/17 09:00 99.5 F 77 18 139/70 96 - Physical Examination General: No Apparent Distress HEENT: Positive: PERRL Neck: Positive: trachea midline Neuro: Positive: Grossly Intact Abdomen: Positive: Soft Extremities: Present: Ulceration Noted
[2017-05-15] MEDS: NOVOLOG SUB-Q SCH ×4 (08:27→22:57)
[2017-05-15] MEDS: FOLBEE PLUS CZ PO SCH (09:51)
[2017-05-15] MEDS: TOPROL XL PO SCH (09:51)
[2017-05-15] MEDS: LYRICA PO SCH ×2 (09:51)
[2017-05-15] MEDS: PLAVIX PO SCH (09:51)
[2017-05-15] MEDS: ZESTRIL PO SCH (09:52)
[2017-05-15] MEDS: PEPCID PO SCH (09:53)
[2017-05-15] MEDS: COLACE PO SCH ×2 (09:54→22:57)
[2017-05-15] MEDS: SENOKOT PO SCH ×2 (09:54→22:57)
--- NOTE | 2017-05-15 10:51 | Progress Note ---
Assessment and Plan - Patient Problems (1) Ischemia of left lower extremity Current Visit: Yes Status: Acute Plan to address problem: Status post femoropopliteal bypass, thrombectomy of left leg femoral artery, angioplasty. Continue current management, monitor coagulation status. Pain control as ordered (2) CAD (coronary artery disease) Current Visit: Yes Status: Chronic Qualifiers: Coronary Disease-Associated Artery/Lesion type: [place] artery [place] vs. transplanted heart: N Associated angina: without angina Plan to address problem: Clinically stable no symptoms of chest pain (3) IDDM (insulin dependent diabetes mellitus) Current Visit: Yes Status: Chronic (4) Peripheral neuropathy Current Visit: Yes Status: Chronic Qualifiers: Peripheral neuropathy type: polyneuropathy associated with underlying disease Qualified Code(s): G63 - Polyneuropathy in diseases classified elsewhere Plan to address problem: Continue current management (5) Atherosclerosis of [place] arteries of the extremities with ulceration Onset Date: 08/22/16 Current Visit: No Status: Acute Subjective Date of service: 05/15/17 Principal diagnosis: PVD s/p Angioplasty and Stenting; (L) 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 Dr. Badillo. Day 1 postop, patient complaining of pain at surgical site, no fever reported no shortness of breath or chest pain. Vitals fairly stable Objective - Exam Narrative Exam: GENERAL: Resting comfortably in bed no acute distress HEENT: [Patient is not pale, not jaundiced, not cyanosed.] NECK: [No JVD, no thyroid enlargement and no lymphadenopathy.] CHEST/LUNGS: [Good air exchange bilaterally, no wheeze, no rales and no rhonchi. ] [No chest wall tenderness, percussion is normal, symmetrical chest wall.] HEART/CARDIOVASCULAR: [Regular rate and rhythm, S1 and S2 only, no murmur.] ABDOMEN: [Abdomen is soft, nondistended, no guarding, no rebound tenderness, no masses palpable per abdomen, active bowel sounds.] SKIN: [Warm and dry, no rash.] NEURO: [Awake, alert, oriented x3, speech normal. Power 5/5 in all the extremities.] EXTREMITIES: Left extremity dressed. Palpable peripheral pulses bilaterally Surgical sites left distal leg shows wound edges well approximated with arpit in place minimal drainage of serosanguineous fluid. - Constitutional Vitals: Vital Signs - 12hr 05/15/17 05/15/17 09:51 09:52 Temperature 98.4 F Pulse Rate 89 89 Pulse Rate [ 89 From Monitor] Respiratory 18 Rate Blood Pressure 136/73 136/73 Blood Pressure 139/73 [Left Arm] - Labs CBC & Chem 7: 05/14/17 07:13 05/12/17 05:35 Labs: Abnormal lab results 05/14/17 05/14/17 05/15/17 Range/Units 16:03 21:01 07:39 POC Glucose 144 H 262 H 246 H (70-105)
--- NOTE | 2017-05-15 13:22 | Progress Note ---
Assessment and Plan We will consult wound care and physical therapy. Patient doing well following his procedure. Subjective Date of service: 05/15/17 Principal diagnosis: PVD s/p Angioplasty and Stenting; (L) Fep-PRODUCTION TEAM MEMBER bypass; DM; CHF Interval history: Patient doing well following his revascularization procedure yesterday. No significant complaints of pain. His dressing was changed. He will require a wound VAC to allow the wound to heal. Patient will also need evaluation by physical therapy and gait training. Objective - Constitutional Vitals: Vital Signs - 12hr 05/15/17 05/15/17 05/15/17 09:51 09:52 10:00 Temperature 98.4 F Pulse Rate 89 89 Pulse Rate [ 89 89 From Monitor] Respiratory 18 Rate Blood Pressure 136/73 136/73 Blood Pressure 139/73 [Left Arm] General appearance: Present: no acute distress - EENT Eyes: PERRL ENT: hearing intact - Neck Neck: supple, normal ROM - Respiratory Respiratory effort: normal - Breasts Breasts: deferred Extremities: abnormal Extremity abnormal: edema - Gastrointestinal General gastrointestinal: Present: deferred Rectal Exam: deferred - Genitourinary Male genitourinary: deferred - Psychiatric Psychiatric: cooperative - Labs CBC & Chem 7: 05/14/17 07:13 05/12/17 05:35 Labs: Abnormal lab results 05/14/17 05/14/17 05/15/17 Range/Units 16:03 21:01 07:39 POC Glucose 144 H 262 H 246 H (70-105) 05/15/17 Range/Units 11:31 POC Glucose 297 H (70-105)
[2017-05-15] MEDS: HEPARIN/ 0.45% NACL-25,000 UNIT/500 ML 25,000 UNIT/500 ML BAG IV SCH (14:24)
--- NOTE | 2017-05-15 15:19 | Progress Note ---
Assessment and Plan Patient sleeping at this time.No respiratory distress. On room air and O2 saturation 100% - Patient Problems (1) Acute deep vein thrombosis (DVT) of left peroneal vein Onset Date: 07/13/16 Current Visit: No Status: Acute Plan to address problem: Patient is on I/V Heparin. Monitor Heparin anti Xa level. Todays heparin Anti xa level .57. (2) CAD (coronary artery disease) Current Visit: Yes Status: Chronic Qualifiers: Coronary Disease-Associated Artery/Lesion type: [place] artery [place] vs. transplanted heart: N Associated angina: without angina Plan to address problem: Mangement as per cardiology. (3) IDDM (insulin dependent diabetes mellitus) Current Visit: Yes Status: Chronic Plan to address problem: Management as per primary care. (4) Peripheral neuropathy Current Visit: Yes Status: Chronic Qualifiers: Peripheral neuropathy type: polyneuropathy associated with underlying disease Qualified Code(s): G63 - Polyneuropathy in diseases classified elsewhere Plan to address problem: Management as per primary care. (5) Hypertension Onset Date: 07/13/16 Current Visit: No Status: Chronic Qualifiers: Hypertension type: essential hypertension Qualified Code(s): I10 - Essential (primary) hypertension Plan to address problem: Management as per primary care. 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 On room air and O2 saturation 100% Objective Vital Signs - 12hr 05/15/17 05/15/17 05/15/17 09:51 09:52 10:00 Temperature 98.4 F Pulse Rate 89 89 Pulse Rate [ 89 89 From Monitor] Respiratory 18 Rate Blood Pressure 136/73 136/73 Blood Pressure 139/73 [Left Arm] Constitutional: no acute distress, alert Eyes: non-icteric ENT: oropharynx moist Neck: supple, no lymphadenopathy Ascultation: Bilateral: diminished breath sounds Cardiovascular: regular rate and rhythm Gastrointestinal: normoactive bowel sounds, soft, non-tender Integumentary: cellulitis (Left foot.) Extremities: no cyanosis, no edema, other (left foot in clean dressing and MIKALA bandage) Neurologic: normal mental status, non-focal exam, pupils equal and round, motor strength normal and Psychiatric: mood appropriate, affect normal CBC and BMP: 05/14/17 07:13 05/12/17 05:35 ABG, PT/INR, D-dimer: PT/INR, D-dimer PT 14.0 Sec. (12.2-14.9) 05/12/17 11:41 INR 1.09 (0.87-1.13) 05/12/17 11:41 Abnormal lab findings: Abnormal Labs 05/01/17 05/01/17 05/01/17 14:55 14:55 14:55 WBC 12.0 H RBC Hgb POC Hgb Hct POC Hct RDW 12.9 L Lymph % (Auto) 6.3 L [place] % (Auto) Lymph # 0.8 L [place] # 0.9 H Seg Neutrophils % 85.9 H Lymphocytes % (Manual) Monocytes % (Manual) Seg Neutrophils # 10.3 H INR 1.15 H APTT 37.7 H Heparin Anti-Xa Level POC Sodium POC Potassium Sodium Potassium Chloride 97.8 L Carbon Dioxide POC BUN BUN 23 H Glucose 321 H POC Glucose Hemoglobin A1c Calcium AST Total Protein Albumin Crossmatch 05/01/17 05/01/17 05/02/17 18:32 21:49 03:51 WBC RBC Hgb POC Hgb Hct POC Hct RDW 12.8 L Lymph % (Auto) [place] % (Auto) 12.4 H Lymph # [place] # 1.0 H Seg Neutrophils % Lymphocytes % (Manual) Monocytes % (Manual) Seg Neutrophils # INR APTT Heparin Anti-Xa Level POC Sodium POC Potassium Sodium Potassium Chloride Carbon Dioxide POC BUN BUN Glucose POC Glucose 247 H 280 H Hemoglobin A1c Calcium AST Total Protein Albumin Crossmatch 05/02/17 05/02/17 05/02/17 03:51 03:51 07:27 WBC RBC Hgb POC Hgb Hct POC Hct RDW Lymph % (Auto) [place] % (Auto) Lymph # [place] # Seg Neutrophils % Lymphocytes % (Manual) Monocytes % (Manual) Seg Neutrophils # INR APTT Heparin Anti-Xa Level 0.22 L POC Sodium POC Potassium Sodium Potassium Chloride Carbon Dioxide POC BUN BUN Glucose 136 H POC Glucose 115 H Hemoglobin A1c Calcium AST Total Protein Albumin Crossmatch 05/02/17 05/02/17 05/02/17 11:50 20:33 21:56 WBC RBC Hgb POC Hgb Hct POC Hct RDW Lymph % (Auto) [place] % (Auto) Lymph # [place] # Seg Neutrophils % Lymphocytes % (Manual) Monocytes % (Manual) Seg Neutrophils # INR APTT Heparin Anti-Xa Level 0.24 L POC Sodium POC Potassium Sodium Potassium Chloride Carbon Dioxide POC BUN BUN Glucose POC Glucose 165 H 248 H Hemoglobin A1c Calcium AST Total Protein Albumin Crossmatch 05/03/17 05/03/17 05/03/17 03:23 05:14 05:14 WBC RBC Hgb POC Hgb Hct POC Hct RDW 12.8 L Lymph % (Auto) [place] % (Auto) 14.1 H Lymph # [place] # 1.2 H Seg Neutrophils % Lymphocytes % (Manual) Monocytes % (Manual) Seg Neutrophils # INR APTT 101.1 H* Heparin Anti-Xa Level POC Sodium POC Potassium Sodium 136 L Potassium Chloride Carbon Dioxide POC BUN BUN Glucose 116 H POC Glucose Hemoglobin A1c Calcium AST Total Protein Albumin 3.0 L Crossmatch 05/03/17 05/03/17 05/03/17 05:14 11:48 11:51 WBC RBC Hgb POC Hgb Hct POC Hct RDW Lymph % (Auto) [place] % (Auto) Lymph # [place] # Seg Neutrophils % Lymphocytes % (Manual) Monocytes % (Manual) Seg Neutrophils # INR APTT Heparin Anti-Xa Level 0.26 L POC Sodium POC Potassium Sodium Potassium Chloride Carbon Dioxide POC BUN BUN Glucose POC Glucose 128 H Hemoglobin A1c 10.2 H Calcium AST Total Protein Albumin Crossmatch 05/03/17 05/03/17 05/04/17 18:50 22:17 04:02 WBC RBC Hgb POC Hgb Hct POC Hct RDW 12.9 L Lymph % (Auto) [place] % (Auto) Lymph # [place] # Seg Neutrophils % Lymphocytes % (Manual) 13.0 L Monocytes % (Manual) 9.0 H Seg Neutrophils # INR APTT Heparin Anti-Xa Level POC Sodium POC Potassium Sodium Potassium Chloride Carbon Dioxide POC BUN BUN Glucose POC Glucose 314 H 312 H Hemoglobin A1c Calcium AST Total Protein Albumin Crossmatch 05/04/17 05/04/17 05/04/17 04:02 07:49 11:54 WBC RBC Hgb POC Hgb Hct POC Hct RDW Lymph % (Auto) [place] % (Auto) Lymph # [place] # Seg Neutrophils % Lymphocytes % (Manual) Monocytes % (Manual) Seg Neutrophils # INR APTT Heparin Anti-Xa Level POC Sodium POC Potassium Sodium 134 L Potassium 5.2 H Chloride 96.2 L Carbon Dioxide POC BUN BUN 21 H Glucose 251 H POC Glucose 177 H 186 H Hemoglobin A1c Calcium AST Total Protein Albumin 3.0 L Crossmatch 05/04/17 05/04/17 05/05/17 17:46 22:51 05:09 WBC RBC Hgb POC Hgb Hct POC Hct RDW Lymph % (Auto) [place] % (Auto) Lymph # [place] # Seg Neutrophils % Lymphocytes % (Manual) Monocytes % (Manual) Seg Neutrophils # INR APTT Heparin Anti-Xa Level POC Sodium POC Potassium Sodium 135 L Potassium Chloride Carbon Dioxide POC BUN BUN Glucose 179 H POC Glucose 244 H 265 H Hemoglobin A1c Calcium AST Total Protein Albumin 2.9 L Crossmatch 05/05/17 05/05/17 05/05/17 05:09 07:39 11:24 WBC RBC Hgb POC Hgb Hct POC Hct RDW Lymph % (Auto) [place] % (Auto) Lymph # [place] # Seg Neutrophils % Lymphocytes % (Manual) Monocytes % (Manual) Seg Neutrophils # INR APTT Heparin Anti-Xa Level 0.15 L 0.29 L POC Sodium POC Potassium Sodium Potassium Chloride Carbon Dioxide POC BUN BUN Glucose POC Glucose 153 H Hemoglobin A1c Calcium AST Total Protein Albumin Crossmatch 05/05/17 05/05/17 05/05/17 11:53 16:33 22:05 WBC RBC Hgb POC Hgb Hct POC Hct RDW Lymph % (Auto) [place] % (Auto) Lymph # [place] # Seg Neutrophils % Lymphocytes % (Manual) Monocytes % (Manual) Seg Neutrophils # INR APTT Heparin Anti-Xa Level POC Sodium POC Potassium Sodium Potassium Chloride Carbon Dioxide POC BUN BUN Glucose POC Glucose 171 H 317 H 313 H Hemoglobin A1c Calcium AST Total Protein Albumin Crossmatch 05/06/17 05/06/17 05/06/17 07:32 11:47 16:28 WBC RBC Hgb POC Hgb Hct POC Hct RDW Lymph % (Auto) [place] % (Auto) Lymph # [place] # Seg Neutrophils % Lymphocytes % (Manual) Monocytes % (Manual) Seg Neutrophils # INR APTT Heparin Anti-Xa Level POC Sodium POC Potassium Sodium Potassium Chloride Carbon Dioxide POC BUN BUN Glucose POC Glucose 176 H 210 H 283 H Hemoglobin A1c Calcium AST Total Protein Albumin Crossmatch 05/06/17 05/07/17 05/07/17 21:33 03:56 07:11 WBC RBC Hgb POC Hgb Hct POC Hct RDW Lymph % (Auto) [place] % (Auto) Lymph # [place] # Seg Neutrophils % Lymphocytes % (Manual) Monocytes % (Manual) Seg Neutrophils # INR APTT Heparin Anti-Xa Level 0.10 L POC Sodium POC Potassium Sodium Potassium Chloride Carbon Dioxide POC BUN BUN Glucose POC Glucose 264 H 276 H Hemoglobin A1c Calcium AST Total Protein Albumin Crossmatch 05/07/17 05/07/17 05/07/17 11:48 11:48 16:11 WBC RBC Hgb POC Hgb Hct POC Hct RDW Lymph % (Auto) [place] % (Auto) Lymph # [place] # Seg Neutrophils % Lymphocytes % (Manual) Monocytes % (Manual) Seg Neutrophils # INR APTT Heparin Anti-Xa Level POC Sodium 137 L POC Potassium 5.5 H Sodium Potassium Chloride Carbon Dioxide POC BUN 31 H BUN Glucose POC Glucose 128 H 158 H Hemoglobin A1c Calcium AST Total Protein Albumin Crossmatch See Detail 05/07/17 05/07/17 05/07/17 16:44 20:28 22:47 WBC RBC Hgb POC Hgb 11.6 L Hct POC Hct 34 L RDW Lymph % (Auto) [place] % (Auto) Lymph # [place] # Seg Neutrophils % Lymphocytes % (Manual) Monocytes % (Manual) Seg Neutrophils # INR APTT Heparin Anti-Xa Level POC Sodium POC Potassium 5.0 H Sodium Potassium Chloride Carbon Dioxide POC BUN 27 H BUN Glucose POC Glucose 170 H 203 H 253 H Hemoglobin A1c Calcium AST Total Protein Albumin Crossmatch 05/08/17 05/08/17 05/08/17 04:23 07:57 12:01 WBC RBC Hgb POC Hgb Hct POC Hct RDW Lymph % (Auto) [place] % (Auto) Lymph # [place] # Seg Neutrophils % Lymphocytes % (Manual) Monocytes % (Manual) Seg Neutrophils # INR APTT Heparin Anti-Xa Level POC Sodium POC Potassium Sodium Potassium 5.3 H D Chloride Carbon Dioxide 19 L POC BUN BUN 29 H Glucose 223 H POC Glucose 258 H 282 H Hemoglobin A1c Calcium 8.2 L AST Total Protein Albumin Crossmatch 05/08/17 05/08/17 05/08/17 15:42 19:44 21:39 WBC RBC Hgb POC Hgb Hct POC Hct RDW Lymph % (Auto) [place] % (Auto) Lymph # [place] # Seg Neutrophils % Lymphocytes % (Manual) Monocytes % (Manual) Seg Neutrophils # INR APTT Heparin Anti-Xa Level 0.25 L POC Sodium POC Potassium Sodium Potassium Chloride Carbon Dioxide POC BUN BUN Glucose POC Glucose 280 H 329 H Hemoglobin A1c Calcium AST Total Protein Albumin Crossmatch 05/09/17 05/09/17 05/09/17 01:52 08:27 12:02 WBC RBC Hgb POC Hgb Hct POC Hct RDW Lymph % (Auto) [place] % (Auto) Lymph # [place] # Seg Neutrophils % Lymphocytes % (Manual) Monocytes % (Manual) Seg Neutrophils # INR APTT Heparin Anti-Xa Level 0.29 L POC Sodium POC Potassium Sodium Potassium Chloride Carbon Dioxide POC BUN BUN Glucose POC Glucose 187 H 190 H Hemoglobin A1c Calcium AST Total Protein Albumin Crossmatch 05/09/17 05/09/17 05/10/17 16:42 21:58 03:41 WBC 13.4 H RBC 3.61 L Hgb 10.8 L POC Hgb Hct 31.9 L POC Hct RDW 13.1 L Lymph % (Auto) 12.9 L [place] % (Auto) 12.2 H Lymph # [place] # 1.6 H Seg Neutrophils % 74.1 H Lymphocytes % (Manual) Monocytes % (Manual) Seg Neutrophils # 10.0 H INR APTT Heparin Anti-Xa Level POC Sodium POC Potassium Sodium Potassium Chloride Carbon Dioxide POC BUN BUN Glucose POC Glucose 245 H 344 H Hemoglobin A1c Calcium AST Total Protein Albumin Crossmatch 05/10/17 05/10/17 05/10/17 03:41 07:31 12:08 WBC RBC Hgb POC Hgb Hct POC Hct RDW Lymph % (Auto) [place] % (Auto) Lymph # [place] # Seg Neutrophils % Lymphocytes % (Manual) Monocytes % (Manual) Seg Neutrophils # INR APTT Heparin Anti-Xa Level POC Sodium POC Potassium Sodium 134 L Potassium Chloride Carbon Dioxide 21 L POC BUN BUN Glucose 171 H POC Glucose 127 H 172 H Hemoglobin A1c Calcium 8.2 L AST 51 H Total Protein Albumin 2.2 L Crossmatch 05/10/17 05/10/17 05/11/17 16:28 21:04 05:03 WBC 19.1 H RBC 3.64 L Hgb 10.7 L POC Hgb Hct 32.1 L POC Hct RDW Lymph % (Auto) 11.8 L [place] % (Auto) 10.8 H Lymph # [place] # 2.1 H Seg Neutrophils % 75.6 H Lymphocytes % (Manual) Monocytes % (Manual) Seg Neutrophils # 14.4 H INR APTT Heparin Anti-Xa Level POC Sodium POC Potassium Sodium Potassium Chloride Carbon Dioxide POC BUN BUN Glucose POC Glucose 197 H 295 H Hemoglobin A1c Calcium AST Total Protein Albumin Crossmatch 05/11/17 05/11/17 05/11/17 05:03 07:30 09:52 WBC RBC Hgb POC Hgb Hct POC Hct RDW Lymph % (Auto) [place] % (Auto) Lymph # [place] # Seg Neutrophils % Lymphocytes % (Manual) Monocytes % (Manual) Seg Neutrophils # INR APTT Heparin Anti-Xa Level POC Sodium POC Potassium Sodium Potassium 5.2 H Chloride Carbon Dioxide POC BUN BUN Glucose 143 H POC Glucose 118 H 124 H Hemoglobin A1c Calcium AST 51 H Total Protein Albumin 2.7 L Crossmatch 05/11/17 05/11/17 05/11/17 11:32 12:22 16:22 WBC RBC Hgb POC Hgb Hct POC Hct RDW Lymph % (Auto) [place] % (Auto) Lymph # [place] # Seg Neutrophils % Lymphocytes % (Manual) Monocytes % (Manual) Seg Neutrophils # INR APTT Heparin Anti-Xa Level < 0.10 L POC Sodium POC Potassium Sodium Potassium Chloride Carbon Dioxide POC BUN BUN Glucose POC Glucose 119 H 197 H Hemoglobin A1c Calcium AST Total Protein Albumin Crossmatch 05/11/17 05/12/17 05/12/17 22:06 05:35 05:35 WBC RBC 3.64 L Hgb 10.8 L POC Hgb Hct 32.5 L POC Hct RDW Lymph % (Auto) 8.0 L [place] % (Auto) 12.8 H Lymph # 0.8 L [place] # 1.3 H Seg Neutrophils % 77.9 H Lymphocytes % (Manual) Monocytes % (Manual) Seg Neutrophils # 8.2 H INR APTT Heparin Anti-Xa Level POC Sodium POC Potassium Sodium 136 L Potassium Chloride Carbon Dioxide POC BUN BUN Glucose 210 H POC Glucose 296 H Hemoglobin A1c Calcium 8.3 L AST Total Protein 6.2 L Albumin 2.6 L Crossmatch 05/12/17 05/12/17 05/12/17 07:26 11:30 11:41 WBC RBC Hgb 11.4 L POC Hgb Hct 35.1 L POC Hct RDW Lymph % (Auto) [place] % (Auto) Lymph # [place] # Seg Neutrophils % Lymphocytes % (Manual) Monocytes % (Manual) Seg Neutrophils # INR APTT Heparin Anti-Xa Level POC Sodium POC Potassium Sodium Potassium Chloride Carbon Dioxide POC BUN BUN Glucose POC Glucose 171 H 126 H Hemoglobin A1c Calcium AST Total Protein Albumin Crossmatch 05/12/17 05/12/17 05/12/17 16:23 21:14 21:50 WBC RBC Hgb POC Hgb Hct POC Hct RDW Lymph % (Auto) [place] % (Auto) Lymph # [place] # Seg Neutrophils % Lymphocytes % (Manual) Monocytes % (Manual) Seg Neutrophils # INR APTT Heparin Anti-Xa Level 0.22 L POC Sodium POC Potassium Sodium Potassium Chloride Carbon Dioxide POC BUN BUN Glucose POC Glucose 223 H 308 H Hemoglobin A1c Calcium AST Total Protein Albumin Crossmatch 05/13/17 05/13/17 05/13/17 04:21 07:24 11:46 WBC RBC Hgb POC Hgb Hct POC Hct RDW Lymph % (Auto) [place] % (Auto) Lymph # [place] # Seg Neutrophils % Lymphocytes % (Manual) Monocytes % (Manual) Seg Neutrophils # INR APTT Heparin Anti-Xa Level 0.23 L POC Sodium POC Potassium Sodium Potassium Chloride Carbon Dioxide POC BUN BUN Glucose POC Glucose 112 H 206 H Hemoglobin A1c Calcium AST Total Protein Albumin Crossmatch 05/13/17 05/13/17 05/13/17 11:57 16:42 21:44 WBC RBC Hgb POC Hgb Hct POC Hct RDW Lymph % (Auto) [place] % (Auto) Lymph # [place] # Seg Neutrophils % Lymphocytes % (Manual) Monocytes % (Manual) Seg Neutrophils # INR APTT Heparin Anti-Xa Level 0.21 L POC Sodium POC Potassium Sodium Potassium Chloride Carbon Dioxide POC BUN BUN Glucose POC Glucose 217 H 245 H Hemoglobin A1c Calcium AST Total Protein Albumin Crossmatch 05/14/17 05/14/17 05/14/17 07:13 16:03 21:01 WBC RBC Hgb 10.9 L POC Hgb Hct 33.1 L POC Hct RDW Lymph % (Auto) [place] % (Auto) Lymph # [place] # Seg Neutrophils % Lymphocytes % (Manual) Monocytes % (Manual) Seg Neutrophils # INR APTT Heparin Anti-Xa Level POC Sodium POC Potassium Sodium Potassium Chloride Carbon Dioxide POC BUN BUN Glucose POC Glucose 144 H 262 H Hemoglobin A1c Calcium AST Total Protein Albumin Crossmatch 05/15/17 05/15/17 07:39 11:31 WBC RBC Hgb POC Hgb Hct POC Hct RDW Lymph % (Auto) [place] % (Auto) Lymph # [place] # Seg Neutrophils % Lymphocytes % (Manual) Monocytes % (Manual) Seg Neutrophils # INR APTT Heparin Anti-Xa Level POC Sodium POC Potassium Sodium Potassium Chloride Carbon Dioxide POC BUN BUN Glucose POC Glucose 246 H 297 H Hemoglobin A1c Calcium AST Total Protein Albumin Crossmatch
[2017-05-15] MEDS: LEVEMIR SUB-Q SCH (23:00)
[2017-05-16] MEDS: NORCO 5/325 PO PRN ×3 (00:58→23:46)
[2017-05-16] MEDS: MORPHINE IV PRN ×3 (02:31→20:48)
[2017-05-16] MEDS: HEPARIN/ 0.45% NACL-25,000 UNIT/500 ML 25,000 UNIT/500 ML BAG IV SCH ×2 (06:49→20:48)
[2017-05-16] MEDS: NOVOLOG SUB-Q SCH ×4 (07:30→23:46)
[2017-05-16] MEDS: SENOKOT PO SCH ×2 (09:26→23:46)
[2017-05-16] MEDS: COLACE PO SCH ×2 (09:26→23:46)
[2017-05-16] MEDS: LYRICA PO SCH ×2 (09:26)
[2017-05-16] MEDS: PLAVIX PO SCH (09:26)
[2017-05-16] MEDS: PEPCID PO SCH (09:26)
[2017-05-16] MEDS: ZESTRIL PO SCH (09:27)
[2017-05-16] MEDS: FOLBEE PLUS CZ PO SCH (09:27)
[2017-05-16] MEDS: TOPROL XL PO SCH (09:27)
--- NOTE | 2017-05-16 09:27 | Progress Note ---
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; DM; CHF Interval history: C/o pain in the left leg Pt with T2DM, PAD s/p Left femoral artery angioplasy, left femoral artery endoarterectomy and left femoral artery to post tibia artery bypass done doing well Objective - Constitutional Vitals: Vital Signs - 12hr 05/15/17 05/15/17 21:43 22:00 Temperature 99.5 F Pulse Rate 96 H Pulse Rate [ 83 83 From Monitor] Respiratory 20 Rate Blood Pressure 128/61 [Left Arm] O2 Sat by Pulse 96 Oximetry General appearance: Present: no acute distress, well-nourished - EENT Eyes: PERRL, EOM intact Ears: bilateral: normal - Neck Neck: supple, normal ROM - Respiratory Respiratory effort: normal Respiratory: bilateral: CTA - Cardiovascular Rhythm: regular Heart Sounds: Present: S1 & S2. Absent: gallop, rub Extremities: pulses intact, No edema, normal color, Full ROM - Gastrointestinal General gastrointestinal: Present: soft, non-tender, non-distended, normal bowel sounds - Integumentary Integumentary: clear, warm, dry - Musculoskeletal Musculoskeletal: 1, strength equal bilaterally - Neurologic Neurologic: moves all extremities - Psychiatric Psychiatric: memory intact, appropriate mood/affect, intact judgment & insight - Labs CBC & Chem 7: 05/14/17 07:13 05/12/17 05:35 Labs: Abnormal lab results 05/15/17 05/15/17 05/15/17 Range/Units 11:31 16:24 20:55 POC Glucose 297 H 319 H 344 H (70-105) 05/16/17 Range/Units 07:39 POC Glucose 110 H (70-105)
[2017-05-16 09:31] LABS: Hematocrit 25.9 % (35.5-45.6); Hemoglobin 8.4 gm/dl (11.8-15.2)
--- NOTE | 2017-05-16 14:28 | Progress Note ---
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 Conservative cardiac management. 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 Objective Vital Signs Temp Pulse Pulse Resp BP BP Pulse Ox 05/16/17 10:00 99.8 F H 89 91 H 18 139/58 97 05/16/17 09:27 91 H 139/58 05/15/17 22:00 96 H 83 05/15/17 21:43 99.5 F 83 20 128/61 96 - Physical Examination General: No Apparent Distress HEENT: Positive: PERRL Neck: Positive: trachea midline Neuro: Positive: Grossly Intact Abdomen: Positive: Soft Extremities: Present: Ulceration Noted - Labs and Meds CBC 05/16/17 Range/Units 09:03 Hgb 8.4 L (11.8-15.2) gm/dl Hct 25.9 L D (35.5-45.6) % Plt Count 268 (140-440) K/mm3
--- NOTE | 2017-05-16 17:37 | Vascular Lab Report ---
LEFT LOWER EXTREMITY ARTERIAL DUPLEX: REASON FOR EXAM: Left groin hematoma. COMMENTS ON THE LEFT: Monophasic waveforms are seen throughout the graft No significant velocity gradients are identified. No focal significant plaque is identified. Findings are consistent with patent graft.. Hematoma noted at the proximal anastomosis. IMPRESSION: LEFT:Patent left femoral-popliteal bypass graft. Left groin hematoma at the proximal stenosis..
--- NOTE | 2017-05-16 18:11 | Progress Note ---
Assessment and Plan Called about left groin swelling. I ordered an arterial duplex which showed a hematoma, but did not show a pseudo-aneurysm. Await PT eval for gait training with offloading forefoot pressure. Will have ET nurse place wound vac in am. D/c planning for home vac. 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 Objective - Constitutional Vitals: Vital Signs - 12hr 05/16/17 05/16/17 09:27 10:00 Temperature 99.8 F H Pulse Rate 91 H 89 Pulse Rate [ 91 H From Monitor] Respiratory 18 Rate Blood Pressure 139/58 Blood Pressure 139/58 [Left Arm] O2 Sat by Pulse 97 Oximetry General appearance: Present: no acute distress - EENT Eyes: EOM intact ENT: hearing intact - Neck Neck: supple - Respiratory Respiratory effort: normal Extremities: no ischemia, normal temperature, abnormal (foot wounds recently changed by ET nurse (pics reviewed) other bandages removed and wounds eval'd) - Neurologic Neurologic: no focal deficits - Psychiatric Psychiatric: appropriate mood/affect, intact judgment & insight, cooperative - Labs CBC & Chem 7: 05/16/17 09:03 05/12/17 05:35 Labs: Abnormal lab results 05/15/17 05/16/17 05/16/17 Range/Units 20:55 07:39 09:03 Hgb 8.4 L (11.8-15.2) gm/dl Hct 25.9 L D (35.5-45.6) % POC Glucose 344 H 110 H (70-105) 05/16/17 05/16/17 Range/Units 11:51 16:48 Hgb (11.8-15.2) gm/dl Hct (35.5-45.6) % POC Glucose 119 H 188 H (70-105)
--- NOTE | 2017-05-16 19:25 | Progress Note ---
Assessment and Plan Patient alert, awake.No complaint of chest pain or shortness of breath.. On room air and O2 saturation 97% - Patient Problems (1) Acute deep vein thrombosis (DVT) of left peroneal vein Onset Date: 07/13/16 Current Visit: No Status: Acute Plan to address problem: Patient is on I/V Heparin. Monitor Heparin anti Xa level. Todays heparin Anti xa level .40. (2) CAD (coronary artery disease) Current Visit: Yes Status: Chronic Qualifiers: Coronary Disease-Associated Artery/Lesion type: [place] artery [place] vs. transplanted heart: N Associated angina: without angina Plan to address problem: Mangement as per cardiology. (3) IDDM (insulin dependent diabetes mellitus) Current Visit: Yes Status: Chronic Plan to address problem: Management as per primary care. (4) Peripheral neuropathy Current Visit: Yes Status: Chronic Qualifiers: Peripheral neuropathy type: polyneuropathy associated with underlying disease Qualified Code(s): G63 - Polyneuropathy in diseases classified elsewhere Plan to address problem: Management as per primary care. (5) Hypertension Onset Date: 07/13/16 Current Visit: No Status: Chronic Qualifiers: Hypertension type: essential hypertension Qualified Code(s): I10 - Essential (primary) hypertension Plan to address problem: Management as per primary care. Subjective Date of service: 05/16/17 Principal diagnosis: PVD s/p Angioplasty and Stenting; (L) Fep-[employer] bypass; DM; CHF Interval history: Patient alert, awake.No complaint of chest pain or shortness of breath.. On room air and O2 saturation 97% Objective Vital Signs - 12hr 05/16/17 05/16/17 09:27 10:00 Temperature 99.8 F H Pulse Rate 91 H 89 Pulse Rate [ 91 H From Monitor] Respiratory 18 Rate Blood Pressure 139/58 Blood Pressure 139/58 [Left Arm] O2 Sat by Pulse 97 Oximetry Constitutional: no acute distress, alert Eyes: non-icteric ENT: oropharynx moist Neck: supple, no lymphadenopathy Ascultation: Bilateral: diminished breath sounds Cardiovascular: regular rate and rhythm Gastrointestinal: normoactive bowel sounds, soft, non-tender Integumentary: cellulitis (Left foot.) Extremities: no cyanosis, no edema, other (left foot in clean dressing and MIKALA bandage) Neurologic: normal mental status, non-focal exam, pupils equal and round, motor strength normal and Psychiatric: mood appropriate, affect normal CBC and BMP: 05/16/17 09:03 05/12/17 05:35 ABG, PT/INR, D-dimer: PT/INR, D-dimer PT 14.0 Sec. (12.2-14.9) 05/12/17 11:41 INR 1.09 (0.87-1.13) 05/12/17 11:41 Abnormal lab findings: Abnormal Labs 05/01/17 05/01/17 05/01/17 14:55 14:55 14:55 WBC 12.0 H RBC Hgb POC Hgb Hct POC Hct RDW 12.9 L Lymph % (Auto) 6.3 L [place] % (Auto) Lymph # 0.8 L [place] # 0.9 H Seg Neutrophils % 85.9 H Lymphocytes % (Manual) Monocytes % (Manual) Seg Neutrophils # 10.3 H INR 1.15 H APTT 37.7 H Heparin Anti-Xa Level POC Sodium POC Potassium Sodium Potassium Chloride 97.8 L Carbon Dioxide POC BUN BUN 23 H Glucose 321 H POC Glucose Hemoglobin A1c Calcium AST Total Protein Albumin Crossmatch 05/01/17 05/01/17 05/02/17 18:32 21:49 03:51 WBC RBC Hgb POC Hgb Hct POC Hct RDW 12.8 L Lymph % (Auto) [place] % (Auto) 12.4 H Lymph # [place] # 1.0 H Seg Neutrophils % Lymphocytes % (Manual) Monocytes % (Manual) Seg Neutrophils # INR APTT Heparin Anti-Xa Level POC Sodium POC Potassium Sodium Potassium Chloride Carbon Dioxide POC BUN BUN Glucose POC Glucose 247 H 280 H Hemoglobin A1c Calcium AST Total Protein Albumin Crossmatch 05/02/17 05/02/17 05/02/17 03:51 03:51 07:27 WBC RBC Hgb POC Hgb Hct POC Hct RDW Lymph % (Auto) [place] % (Auto) Lymph # [place] # Seg Neutrophils % Lymphocytes % (Manual) Monocytes % (Manual) Seg Neutrophils # INR APTT Heparin Anti-Xa Level 0.22 L POC Sodium POC Potassium Sodium Potassium Chloride Carbon Dioxide POC BUN BUN Glucose 136 H POC Glucose 115 H Hemoglobin A1c Calcium AST Total Protein Albumin Crossmatch 05/02/17 05/02/17 05/02/17 11:50 20:33 21:56 WBC RBC Hgb POC Hgb Hct POC Hct RDW Lymph % (Auto) [place] % (Auto) Lymph # [place] # Seg Neutrophils % Lymphocytes % (Manual) Monocytes % (Manual) Seg Neutrophils # INR APTT Heparin Anti-Xa Level 0.24 L POC Sodium POC Potassium Sodium Potassium Chloride Carbon Dioxide POC BUN BUN Glucose POC Glucose 165 H 248 H Hemoglobin A1c Calcium AST Total Protein Albumin Crossmatch 05/03/17 05/03/17 05/03/17 03:23 05:14 05:14 WBC RBC Hgb POC Hgb Hct POC Hct RDW 12.8 L Lymph % (Auto) [place] % (Auto) 14.1 H Lymph # [place] # 1.2 H Seg Neutrophils % Lymphocytes % (Manual) Monocytes % (Manual) Seg Neutrophils # INR APTT 101.1 H* Heparin Anti-Xa Level POC Sodium POC Potassium Sodium 136 L Potassium Chloride Carbon Dioxide POC BUN BUN Glucose 116 H POC Glucose Hemoglobin A1c Calcium AST Total Protein Albumin 3.0 L Crossmatch 05/03/17 05/03/17 05/03/17 05:14 11:48 11:51 WBC RBC Hgb POC Hgb Hct POC Hct RDW Lymph % (Auto) [place] % (Auto) Lymph # [place] # Seg Neutrophils % Lymphocytes % (Manual) Monocytes % (Manual) Seg Neutrophils # INR APTT Heparin Anti-Xa Level 0.26 L POC Sodium POC Potassium Sodium Potassium Chloride Carbon Dioxide POC BUN BUN Glucose POC Glucose 128 H Hemoglobin A1c 10.2 H Calcium AST Total Protein Albumin Crossmatch 05/03/17 05/03/17 05/04/17 18:50 22:17 04:02 WBC RBC Hgb POC Hgb Hct POC Hct RDW 12.9 L Lymph % (Auto) [place] % (Auto) Lymph # [place] # Seg Neutrophils % Lymphocytes % (Manual) 13.0 L Monocytes % (Manual) 9.0 H Seg Neutrophils # INR APTT Heparin Anti-Xa Level POC Sodium POC Potassium Sodium Potassium Chloride Carbon Dioxide POC BUN BUN Glucose POC Glucose 314 H 312 H Hemoglobin A1c Calcium AST Total Protein Albumin Crossmatch 05/04/17 05/04/17 05/04/17 04:02 07:49 11:54 WBC RBC Hgb POC Hgb Hct POC Hct RDW Lymph % (Auto) [place] % (Auto) Lymph # [place] # Seg Neutrophils % Lymphocytes % (Manual) Monocytes % (Manual) Seg Neutrophils # INR APTT Heparin Anti-Xa Level POC Sodium POC Potassium Sodium 134 L Potassium 5.2 H Chloride 96.2 L Carbon Dioxide POC BUN BUN 21 H Glucose 251 H POC Glucose 177 H 186 H Hemoglobin A1c Calcium AST Total Protein Albumin 3.0 L Crossmatch 05/04/17 05/04/17 05/05/17 17:46 22:51 05:09 WBC RBC Hgb POC Hgb Hct POC Hct RDW Lymph % (Auto) [place] % (Auto) Lymph # [place] # Seg Neutrophils % Lymphocytes % (Manual) Monocytes % (Manual) Seg Neutrophils # INR APTT Heparin Anti-Xa Level POC Sodium POC Potassium Sodium 135 L Potassium Chloride Carbon Dioxide POC BUN BUN Glucose 179 H POC Glucose 244 H 265 H Hemoglobin A1c Calcium AST Total Protein Albumin 2.9 L Crossmatch 05/05/17 05/05/17 05/05/17 05:09 07:39 11:24 WBC RBC Hgb POC Hgb Hct POC Hct RDW Lymph % (Auto) [place] % (Auto) Lymph # [place] # Seg Neutrophils % Lymphocytes % (Manual) Monocytes % (Manual) Seg Neutrophils # INR APTT Heparin Anti-Xa Level 0.15 L 0.29 L POC Sodium POC Potassium Sodium Potassium Chloride Carbon Dioxide POC BUN BUN Glucose POC Glucose 153 H Hemoglobin A1c Calcium AST Total Protein Albumin Crossmatch 05/05/17 05/05/17 05/05/17 11:53 16:33 22:05 WBC RBC Hgb POC Hgb Hct POC Hct RDW Lymph % (Auto) [place] % (Auto) Lymph # [place] # Seg Neutrophils % Lymphocytes % (Manual) Monocytes % (Manual) Seg Neutrophils # INR APTT Heparin Anti-Xa Level POC Sodium POC Potassium Sodium Potassium Chloride Carbon Dioxide POC BUN BUN Glucose POC Glucose 171 H 317 H 313 H Hemoglobin A1c Calcium AST Total Protein Albumin Crossmatch 05/06/17 05/06/17 05/06/17 07:32 11:47 16:28 WBC RBC Hgb POC Hgb Hct POC Hct RDW Lymph % (Auto) [place] % (Auto) Lymph # [place] # Seg Neutrophils % Lymphocytes % (Manual) Monocytes % (Manual) Seg Neutrophils # INR APTT Heparin Anti-Xa Level POC Sodium POC Potassium Sodium Potassium Chloride Carbon Dioxide POC BUN BUN Glucose POC Glucose 176 H 210 H 283 H Hemoglobin A1c Calcium AST Total Protein Albumin Crossmatch 05/06/17 05/07/17 05/07/17 21:33 03:56 07:11 WBC RBC Hgb POC Hgb Hct POC Hct RDW Lymph % (Auto) [place] % (Auto) Lymph # [place] # Seg Neutrophils % Lymphocytes % (Manual) Monocytes % (Manual) Seg Neutrophils # INR APTT Heparin Anti-Xa Level 0.10 L POC Sodium POC Potassium Sodium Potassium Chloride Carbon Dioxide POC BUN BUN Glucose POC Glucose 264 H 276 H Hemoglobin A1c Calcium AST Total Protein Albumin Crossmatch 05/07/17 05/07/17 05/07/17 11:48 11:48 16:11 WBC RBC Hgb POC Hgb Hct POC Hct RDW Lymph % (Auto) [place] % (Auto) Lymph # [place] # Seg Neutrophils % Lymphocytes % (Manual) Monocytes % (Manual) Seg Neutrophils # INR APTT Heparin Anti-Xa Level POC Sodium 137 L POC Potassium 5.5 H Sodium Potassium Chloride Carbon Dioxide POC BUN 31 H BUN Glucose POC Glucose 128 H 158 H Hemoglobin A1c Calcium AST Total Protein Albumin Crossmatch See Detail 05/07/17 05/07/17 05/07/17 16:44 20:28 22:47 WBC RBC Hgb POC Hgb 11.6 L Hct POC Hct 34 L RDW Lymph % (Auto) [place] % (Auto) Lymph # [place] # Seg Neutrophils % Lymphocytes % (Manual) Monocytes % (Manual) Seg Neutrophils # INR APTT Heparin Anti-Xa Level POC Sodium POC Potassium 5.0 H Sodium Potassium Chloride Carbon Dioxide POC BUN 27 H BUN Glucose POC Glucose 170 H 203 H 253 H Hemoglobin A1c Calcium AST Total Protein Albumin Crossmatch 05/08/17 05/08/17 05/08/17 04:23 07:57 12:01 WBC RBC Hgb POC Hgb Hct POC Hct RDW Lymph % (Auto) [place] % (Auto) Lymph # [place] # Seg Neutrophils % Lymphocytes % (Manual) Monocytes % (Manual) Seg Neutrophils # INR APTT Heparin Anti-Xa Level POC Sodium POC Potassium Sodium Potassium 5.3 H D Chloride Carbon Dioxide 19 L POC BUN BUN 29 H Glucose 223 H POC Glucose 258 H 282 H Hemoglobin A1c Calcium 8.2 L AST Total Protein Albumin Crossmatch 05/08/17 05/08/17 05/08/17 15:42 19:44 21:39 WBC RBC Hgb POC Hgb Hct POC Hct RDW Lymph % (Auto) [place] % (Auto) Lymph # [place] # Seg Neutrophils % Lymphocytes % (Manual) Monocytes % (Manual) Seg Neutrophils # INR APTT Heparin Anti-Xa Level 0.25 L POC Sodium POC Potassium Sodium Potassium Chloride Carbon Dioxide POC BUN BUN Glucose POC Glucose 280 H 329 H Hemoglobin A1c Calcium AST Total Protein Albumin Crossmatch 05/09/17 05/09/17 05/09/17 01:52 08:27 12:02 WBC RBC Hgb POC Hgb Hct POC Hct RDW Lymph % (Auto) [place] % (Auto) Lymph # [place] # Seg Neutrophils % Lymphocytes % (Manual) Monocytes % (Manual) Seg Neutrophils # INR APTT Heparin Anti-Xa Level 0.29 L POC Sodium POC Potassium Sodium Potassium Chloride Carbon Dioxide POC BUN BUN Glucose POC Glucose 187 H 190 H Hemoglobin A1c Calcium AST Total Protein Albumin Crossmatch 05/09/17 05/09/17 05/10/17 16:42 21:58 03:41 WBC 13.4 H RBC 3.61 L Hgb 10.8 L POC Hgb Hct 31.9 L POC Hct RDW 13.1 L Lymph % (Auto) 12.9 L [place] % (Auto) 12.2 H Lymph # [place] # 1.6 H Seg Neutrophils % 74.1 H Lymphocytes % (Manual) Monocytes % (Manual) Seg Neutrophils # 10.0 H INR APTT Heparin Anti-Xa Level POC Sodium POC Potassium Sodium Potassium Chloride Carbon Dioxide POC BUN BUN Glucose POC Glucose 245 H 344 H Hemoglobin A1c Calcium AST Total Protein Albumin Crossmatch 05/10/17 05/10/17 05/10/17 03:41 07:31 12:08 WBC RBC Hgb POC Hgb Hct POC Hct RDW Lymph % (Auto) [place] % (Auto) Lymph # [place] # Seg Neutrophils % Lymphocytes % (Manual) Monocytes % (Manual) Seg Neutrophils # INR APTT Heparin Anti-Xa Level POC Sodium POC Potassium Sodium 134 L Potassium Chloride Carbon Dioxide 21 L POC BUN BUN Glucose 171 H POC Glucose 127 H 172 H Hemoglobin A1c Calcium 8.2 L AST 51 H Total Protein Albumin 2.2 L Crossmatch 05/10/17 05/10/17 05/11/17 16:28 21:04 05:03 WBC 19.1 H RBC 3.64 L Hgb 10.7 L POC Hgb Hct 32.1 L POC Hct RDW Lymph % (Auto) 11.8 L [place] % (Auto) 10.8 H Lymph # [place] # 2.1 H Seg Neutrophils % 75.6 H Lymphocytes % (Manual) Monocytes % (Manual) Seg Neutrophils # 14.4 H INR APTT Heparin Anti-Xa Level POC Sodium POC Potassium Sodium Potassium Chloride Carbon Dioxide POC BUN BUN Glucose POC Glucose 197 H 295 H Hemoglobin A1c Calcium AST Total Protein Albumin Crossmatch 05/11/17 05/11/17 05/11/17 05:03 07:30 09:52 WBC RBC Hgb POC Hgb Hct POC Hct RDW Lymph % (Auto) [place] % (Auto) Lymph # [place] # Seg Neutrophils % Lymphocytes % (Manual) Monocytes % (Manual) Seg Neutrophils # INR APTT Heparin Anti-Xa Level POC Sodium POC Potassium Sodium Potassium 5.2 H Chloride Carbon Dioxide POC BUN BUN Glucose 143 H POC Glucose 118 H 124 H Hemoglobin A1c Calcium AST 51 H Total Protein Albumin 2.7 L Crossmatch 05/11/17 05/11/17 05/11/17 11:32 12:22 16:22 WBC RBC Hgb POC Hgb Hct POC Hct RDW Lymph % (Auto) [place] % (Auto) Lymph # [place] # Seg Neutrophils % Lymphocytes % (Manual) Monocytes % (Manual) Seg Neutrophils # INR APTT Heparin Anti-Xa Level < 0.10 L POC Sodium POC Potassium Sodium Potassium Chloride Carbon Dioxide POC BUN BUN Glucose POC Glucose 119 H 197 H Hemoglobin A1c Calcium AST Total Protein Albumin Crossmatch 05/11/17 05/12/17 05/12/17 22:06 05:35 05:35 WBC RBC 3.64 L Hgb 10.8 L POC Hgb Hct 32.5 L POC Hct RDW Lymph % (Auto) 8.0 L [place] % (Auto) 12.8 H Lymph # 0.8 L [place] # 1.3 H Seg Neutrophils % 77.9 H Lymphocytes % (Manual) Monocytes % (Manual) Seg Neutrophils # 8.2 H INR APTT Heparin Anti-Xa Level POC Sodium POC Potassium Sodium 136 L Potassium Chloride Carbon Dioxide POC BUN BUN Glucose 210 H POC Glucose 296 H Hemoglobin A1c Calcium 8.3 L AST Total Protein 6.2 L Albumin 2.6 L Crossmatch 05/12/17 05/12/17 05/12/17 07:26 11:30 11:41 WBC RBC Hgb 11.4 L POC Hgb Hct 35.1 L POC Hct RDW Lymph % (Auto) [place] % (Auto) Lymph # [place] # Seg Neutrophils % Lymphocytes % (Manual) Monocytes % (Manual) Seg Neutrophils # INR APTT Heparin Anti-Xa Level POC Sodium POC Potassium Sodium Potassium Chloride Carbon Dioxide POC BUN BUN Glucose POC Glucose 171 H 126 H Hemoglobin A1c Calcium AST Total Protein Albumin Crossmatch 05/12/17 05/12/17 05/12/17 16:23 21:14 21:50 WBC RBC Hgb POC Hgb Hct POC Hct RDW Lymph % (Auto) [place] % (Auto) Lymph # [place] # Seg Neutrophils % Lymphocytes % (Manual) Monocytes % (Manual) Seg Neutrophils # INR APTT Heparin Anti-Xa Level 0.22 L POC Sodium POC Potassium Sodium Potassium Chloride Carbon Dioxide POC BUN BUN Glucose POC Glucose 223 H 308 H Hemoglobin A1c Calcium AST Total Protein Albumin Crossmatch 05/13/17 05/13/17 05/13/17 04:21 07:24 11:46 WBC RBC Hgb POC Hgb Hct POC Hct RDW Lymph % (Auto) [place] % (Auto) Lymph # [place] # Seg Neutrophils % Lymphocytes % (Manual) Monocytes % (Manual) Seg Neutrophils # INR APTT Heparin Anti-Xa Level 0.23 L POC Sodium POC Potassium Sodium Potassium Chloride Carbon Dioxide POC BUN BUN Glucose POC Glucose 112 H 206 H Hemoglobin A1c Calcium AST Total Protein Albumin Crossmatch 05/13/17 05/13/17 05/13/17 11:57 16:42 21:44 WBC RBC Hgb POC Hgb Hct POC Hct RDW Lymph % (Auto) [place] % (Auto) Lymph # [place] # Seg Neutrophils % Lymphocytes % (Manual) Monocytes % (Manual) Seg Neutrophils # INR APTT Heparin Anti-Xa Level 0.21 L POC Sodium POC Potassium Sodium Potassium Chloride Carbon Dioxide POC BUN BUN Glucose POC Glucose 217 H 245 H Hemoglobin A1c Calcium AST Total Protein Albumin Crossmatch 05/14/17 05/14/17 05/14/17 07:13 16:03 21:01 WBC RBC Hgb 10.9 L POC Hgb Hct 33.1 L POC Hct RDW Lymph % (Auto) [place] % (Auto) Lymph # [place] # Seg Neutrophils % Lymphocytes % (Manual) Monocytes % (Manual) Seg Neutrophils # INR APTT Heparin Anti-Xa Level POC Sodium POC Potassium Sodium Potassium Chloride Carbon Dioxide POC BUN BUN Glucose POC Glucose 144 H 262 H Hemoglobin A1c Calcium AST Total Protein Albumin Crossmatch 05/15/17 05/15/17 05/15/17 07:39 11:31 16:24 WBC RBC Hgb POC Hgb Hct POC Hct RDW Lymph % (Auto) [place] % (Auto) Lymph # [place] # Seg Neutrophils % Lymphocytes % (Manual) Monocytes % (Manual) Seg Neutrophils # INR APTT Heparin Anti-Xa Level POC Sodium POC Potassium Sodium Potassium Chloride Carbon Dioxide POC BUN BUN Glucose POC Glucose 246 H 297 H 319 H Hemoglobin A1c Calcium AST Total Protein Albumin Crossmatch 05/15/17 05/16/17 05/16/17 20:55 07:39 09:03 WBC RBC Hgb 8.4 L POC Hgb Hct 25.9 L D POC Hct RDW Lymph % (Auto) [place] % (Auto) Lymph # [place] # Seg Neutrophils % Lymphocytes % (Manual) Monocytes % (Manual) Seg Neutrophils # INR APTT Heparin Anti-Xa Level POC Sodium POC Potassium Sodium Potassium Chloride Carbon Dioxide POC BUN BUN Glucose POC Glucose 344 H 110 H Hemoglobin A1c Calcium AST Total Protein Albumin Crossmatch 05/16/17 05/16/17 11:51 16:48 WBC RBC Hgb POC Hgb Hct POC Hct RDW Lymph % (Auto) [place] % (Auto) Lymph # [place] # Seg Neutrophils % Lymphocytes % (Manual) Monocytes % (Manual) Seg Neutrophils # INR APTT Heparin Anti-Xa Level POC Sodium POC Potassium Sodium Potassium Chloride Carbon Dioxide POC BUN BUN Glucose POC Glucose 119 H 188 H Hemoglobin A1c Calcium AST Total Protein Albumin Crossmatch Prior PFT's, U/S of legs: report reviewed (Doppler study of left leg,reported graft is patent.)
[2017-05-16] MEDS: LEVEMIR SUB-Q SCH (23:47)
[2017-05-17] MEDS: MORPHINE IV PRN ×4 (01:48→23:57)
[2017-05-17 05:22] LABS: Basophils % (Auto) 0.2 % (0.0-1.8); Eosinophils % (Auto) 0.1 % (0.0-4.3); Hematocrit 23.3 % (35.5-45.6); Hemoglobin 7.6 gm/dl (11.8-15.2); Mean Corpuscular HGB Conc 33 % (32-34); Mean Corpuscular Hemoglobin 29 pg (28-32); Mean Corpuscular Volume 88 fl (84-94); Platelet Count 265 K/mm3 (140-440); Red Blood Count 2.64 M/mm3 (3.65-5.03); Red Cell Distribution Width 13.2 % (13.2-15.2); White Blood Count 18.6 K/mm3 (4.5-11.0)
[2017-05-17 05:47] LABS: Albumin 2.6 g/dL (3.9-5); Albumin/Globulin Ratio 0.7 %; BUN/Creatinine Ratio 16.25; Bilirubin,Total 0.5 mg/dL (0.1-1.2); Calcium 8.2 mg/dL (8.4-10.2); Chloride 95.5 mmol/L (98-107); Potassium 4.6 mmol/L (3.6-5.0); Total Protein 6.3 g/dL (6.3-8.2)
[2017-05-17] MEDS: NOVOLOG SUB-Q SCH ×4 (07:50→23:52)
[2017-05-17] MEDS ORDERED: SILVER NITRATE TP ONE (08:30)
--- NOTE | 2017-05-17 09:25 | Progress Note ---
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 DVT and GI PPx with heparing and pepcid Subjective Date of service: 05/17/17 Principal diagnosis: PAD, T2DM Interval history: C/o pain and swelling with bleeding from the incision sites in the left leg Pt with T2DM, PAD s/p Left femoral artery angioplasy, left femoral artery endoarterectomy and left femoral artery to post tibia artery bypass done with further intervention on 05/13/17. Objective - Constitutional Vitals: Vital Signs - 12hr 05/16/17 05/17/17 22:00 08:25 Temperature 100.2 F H Pulse Rate 85 Pulse Rate [ 96 H From Monitor] Respiratory 18 Rate Blood Pressure 111/51 [Left Arm] O2 Sat by Pulse 98 Oximetry General appearance: Present: no acute distress, well-nourished - EENT Eyes: PERRL, EOM intact ENT: hearing intact, clear oral mucosa - Neck Neck: supple, normal ROM - Respiratory Respiratory effort: normal Respiratory: bilateral: CTA - Cardiovascular Rhythm: regular Heart Sounds: Present: S1 & S2. Absent: gallop, rub Extremities: pulses intact, No edema, normal color, Full ROM Extremity abnormal: other (hematoma left groin and swelling left leg with bleeding from the insicion site on the left leg) - Gastrointestinal General gastrointestinal: Present: soft, non-tender, non-distended, normal bowel sounds - Integumentary Integumentary: clear, warm, dry - Musculoskeletal Musculoskeletal: 1, strength equal bilaterally - Neurologic Neurologic: moves all extremities - Psychiatric Psychiatric: memory intact, appropriate mood/affect, intact judgment & insight - Labs CBC & Chem 7: 05/17/17 04:39 05/17/17 04:39 Labs: Abnormal lab results 05/16/17 05/16/17 05/16/17 Range/Units 09:03 11:51 16:48 WBC (4.5-11.0) K/mm3 RBC (3.65-5.03) M/mm3 Hgb 8.4 L (11.8-15.2) gm/dl Hct 25.9 L D (35.5-45.6) % Lymph % (Auto) (13.4-35.0) % [place] % (Auto) (0.0-7.3) % [place] # (0.0-0.8) K/mm3 Seg Neutrophils % (40.0-70.0) % Seg Neutrophils # (1.8-7.7) K/mm3 Sodium (137-145) mmol/L Chloride (98-107) mmol/L BUN (9-20) mg/dL Creatinine (0.8-1.5) mg/dL Glucose (75-100) mg/dL POC Glucose 119 H 188 H (70-105) Calcium (8.4-10.2) mg/dL AST (5-40) units/L ALT (7-56) units/L Albumin (3.9-5) g/dL 05/16/17 05/17/17 05/17/17 Range/Units 23:09 04:39 04:39 WBC 18.6 H (4.5-11.0) K/mm3 RBC 2.64 L (3.65-5.03) M/mm3 Hgb 7.6 L (11.8-15.2) gm/dl Hct 23.3 L (35.5-45.6) % Lymph % (Auto) 7.2 L (13.4-35.0) % [place] % (Auto) 13.3 H (0.0-7.3) % [place] # 2.5 H (0.0-0.8) K/mm3 Seg Neutrophils % 79.2 H (40.0-70.0) % Seg Neutrophils # 14.8 H (1.8-7.7) K/mm3 Sodium 133 L (137-145) mmol/L Chloride 95.5 L (98-107) mmol/L BUN 26 H (9-20) mg/dL Creatinine 1.6 H D (0.8-1.5) mg/dL Glucose 183 H (75-100) mg/dL POC Glucose 219 H (70-105) Calcium 8.2 L (8.4-10.2) mg/dL AST 154 H (5-40) units/L ALT 79 H (7-56) units/L Albumin 2.6 L (3.9-5) g/dL // Range/Units 07:34 WBC (4.5-11.0) K/mm3 RBC (3.65-5.03) M/mm3 Hgb (11.8-15.2) gm/dl Hct (35.5-45.6) % Lymph % (Auto) (13.4-35.0) % [place] % (Auto) (0.0-7.3) % [place] # (0.0-0.8) K/mm3 Seg Neutrophils % (40.0-70.0) % Seg Neutrophils # (1.8-7.7) K/mm3 Sodium (137-145) mmol/L Chloride (98-107) mmol/L BUN (9-20) mg/dL Creatinine (0.8-1.5) mg/dL Glucose (75-100) mg/dL POC Glucose 144 H (70-105) Calcium (8.4-10.2) mg/dL AST (5-40) units/L ALT (7-56) units/L Albumin (3.9-5) g/dL
[2017-05-17] MEDS: NORCO 5/325 PO PRN (09:52)
[2017-05-17] MEDS ORDERED: MORPHINE IV ONE (10:00)
[2017-05-17 10:09] LABS: Hematocrit 24.8 % (35.5-45.6); Hemoglobin 8.3 gm/dl (11.8-15.2)
[2017-05-17] MEDS: LYRICA PO SCH ×2 (10:23)
[2017-05-17] MEDS: PEPCID PO SCH (10:23)
[2017-05-17] MEDS: TOPROL XL PO SCH (10:23)
[2017-05-17] MEDS: ZESTRIL PO SCH (10:24)
[2017-05-17] MEDS: PLAVIX PO SCH (10:24)
[2017-05-17] MEDS: SENOKOT PO SCH ×2 (10:24→23:52)
[2017-05-17] MEDS: COLACE PO SCH ×2 (10:24→23:52)
[2017-05-17] MEDS: FOLBEE PLUS CZ PO SCH (10:25)
[2017-05-17] MEDS ORDERED: PERCOCET 5/325 PO PRN (10:37)
--- NOTE | 2017-05-17 10:58 | Progress Note ---
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 Conservative cardiac management. Subjective Date of service: 05/17/17 Principal diagnosis: PAD, T2DM Interval history: No cardiac complaints. Objective Vital Signs Temp Pulse Pulse Resp BP BP Pulse Ox 05/17/17 10:24 96 H 111/51 05/17/17 10:23 96 H 11105/17/17 08:25 85 05/16/17 22:00 100.2 F H 96 H 18 111/51 98 - Physical Examination General: No Apparent Distress HEENT: Positive: PERRL Neck: Positive: trachea midline Cardiac: Positive: Reg Rate and Rhythm Neuro: Positive: Grossly Intact Extremities: Present: Ulceration Noted - Labs and Meds Cardiac Enzymes 05/17/17 Range/Units 04:39 AST 154 H (5-40) units/L CBC 05/17/17 05/17/17 Range/Units 04:39 09:17 WBC 18.6 H (4.5-11.0) K/mm3 RBC 2.64 L (3.65-5.03) M/mm3 Hgb 7.6 L 8.3 L (11.8-15.2) gm/dl Hct 23.3 L 24.8 L (35.5-45.6) % Plt Count 265 (140-440) K/mm3 Lymph # 1.3 (1.2-5.4) K/mm3 [place] # 2.5 H (0.0-0.8) K/mm3 Eos # 0.0 (0.0-0.4) K/mm3 Baso # 0.0 (0.0-0.1) K/mm3 Comprehensive Metabolic Panel 05/17/17 Range/Units 04:39 Sodium 133 L (137-145) mmol/L Potassium 4.6 (3.6-5.0) mmol/L Chloride 95.5 L (98-107) mmol/L Carbon Dioxide 25 (22-30) mmol/L BUN 26 H (9-20) mg/dL Creatinine 1.6 H D (0.8-1.5) mg/dL Glucose 183 H (75-100) mg/dL Calcium 8.2 L (8.4-10.2) mg/dL AST 154 H (5-40) units/L ALT 79 H (7-56) units/L Alkaline Phosphatase 58 (35-129) units/L Total Protein 6.3 (6.3-8.2) g/dL Albumin 2.6 L (3.9-5) g/dL
[2017-05-17] MEDS: HEPARIN/ 0.45% NACL-25,000 UNIT/500 ML 25,000 UNIT/500 ML BAG IV SCH (11:54)
--- NOTE | 2017-05-17 13:11 | Progress Note ---
Assessment and Plan (1) Ischemia of left lower extremity Current Visit: Yes Status: Acute Plan to address problem: - s/p Fem-DOUGH SHEETER bypass - no active bleeding - hemodynamically stable - follow H&H (2) IDDM (insulin dependent diabetes mellitus) Current Visit: Yes Status: Chronic Plan to address problem: - continue SSI - continue levimir at 40units sq qhs - accuchecks qac & qhs (3) Deep venous thrombosis of left peroneal vein Onset Date: 08/22/16 Current Visit: No Status: Acute Plan to address problem: - per vascular team (4) Discharge planning issues Current Visit: Yes Status: Acute Plan to address problem: - per attending Subjective Date of service: 05/17/17 Principal diagnosis: PVD s/p Femoral-Post Tibial Artery Bypass; CAD s/p CABG; Diabetes II Interval history: Seen and examined at bedside; 24 hour events reviewed; nursing and respiratory care staff consulted; no adverse overnight events reported to me; resting peacefully in bed; denies acute chest pains or increased SOB; No /V/F/C Objective Vital Signs - 12hr 05/17/17 05/17/17 05/17/17 08:25 10:00 10:23 Temperature 99.7 F H Pulse Rate 85 96 H Pulse Rate [ 102 H From Monitor] Respiratory 18 Rate Blood Pressure 111/51 Blood Pressure 103/61 [Left Arm] O2 Sat by Pulse 98 Oximetry 05/17/17 10:24 Temperature Pulse Rate 96 H Pulse Rate [ From Monitor] Respiratory Rate Blood Pressure 111/51 Blood Pressure [Left Arm] O2 Sat by Pulse Oximetry Constitutional: no acute distress, alert Eyes: non-icteric ENT: oropharynx moist Neck: supple, no lymphadenopathy Effort: mildly labored Ascultation: Bilateral: clear, diminished breath sounds Cardiovascular: regular rate and rhythm Gastrointestinal: normoactive bowel sounds, soft, non-tender, non-distended Integumentary: cellulitis (Left foot.) Extremities: no cyanosis, no edema, other (left foot in clean dressing and MIKALA bandage) Neurologic: normal mental status, non-focal exam, pupils equal and round, motor strength normal and Psychiatric: mood appropriate, affect normal CBC and BMP: 05/21/17 03:58 05/21/17 03:58 ABG, PT/INR, D-dimer: PT/INR, D-dimer PT 14.0 Sec. (12.2-14.9) 05/12/17 11:41 INR 1.09 (0.87-1.13) 05/12/17 11:41 Abnormal lab findings: Abnormal Labs 05/01/17 05/01/17 05/01/17 14:55 14:55 14:55 WBC 12.0 H RBC Hgb POC Hgb Hct POC Hct RDW 12.9 L Lymph % (Auto) 6.3 L [place] % (Auto) Lymph # 0.8 L [place] # 0.9 H Seg Neutrophils % 85.9 H Lymphocytes % (Manual) Monocytes % (Manual) Seg Neutrophils # 10.3 H INR 1.15 H APTT 37.7 H Heparin Anti-Xa Level POC Sodium POC Potassium Sodium Potassium Chloride 97.8 L Carbon Dioxide POC BUN BUN 23 H Creatinine Glucose 321 H POC Glucose Hemoglobin A1c Calcium AST ALT Total Protein Albumin Crossmatch 05/01/17 05/01/17 05/02/17 18:32 21:49 03:51 WBC RBC Hgb POC Hgb Hct POC Hct RDW 12.8 L Lymph % (Auto) [place] % (Auto) 12.4 H Lymph # [place] # 1.0 H Seg Neutrophils % Lymphocytes % (Manual) Monocytes % (Manual) Seg Neutrophils # INR APTT Heparin Anti-Xa Level POC Sodium POC Potassium Sodium Potassium Chloride Carbon Dioxide POC BUN BUN Creatinine Glucose POC Glucose 247 H 280 H Hemoglobin A1c Calcium AST ALT Total Protein Albumin Crossmatch 05/02/17 05/02/17 05/02/17 03:51 03:51 07:27 WBC RBC Hgb POC Hgb Hct POC Hct RDW Lymph % (Auto) [place] % (Auto) Lymph # [place] # Seg Neutrophils % Lymphocytes % (Manual) Monocytes % (Manual) Seg Neutrophils # INR APTT Heparin Anti-Xa Level 0.22 L POC Sodium POC Potassium Sodium Potassium Chloride Carbon Dioxide POC BUN BUN Creatinine Glucose 136 H POC Glucose 115 H Hemoglobin A1c Calcium AST ALT Total Protein Albumin Crossmatch 05/02/17 05/02/17 05/02/17 11:50 20:33 21:56 WBC RBC Hgb POC Hgb Hct POC Hct RDW Lymph % (Auto) [place] % (Auto) Lymph # [place] # Seg Neutrophils % Lymphocytes % (Manual) Monocytes % (Manual) Seg Neutrophils # INR APTT Heparin Anti-Xa Level 0.24 L POC Sodium POC Potassium Sodium Potassium Chloride Carbon Dioxide POC BUN BUN Creatinine Glucose POC Glucose 165 H 248 H Hemoglobin A1c Calcium AST ALT Total Protein Albumin Crossmatch 05/03/17 05/03/17 05/03/17 03:23 05:14 05:14 WBC RBC Hgb POC Hgb Hct POC Hct RDW 12.8 L Lymph % (Auto) [place] % (Auto) 14.1 H Lymph # [place] # 1.2 H Seg Neutrophils % Lymphocytes % (Manual) Monocytes % (Manual) Seg Neutrophils # INR APTT 101.1 H* Heparin Anti-Xa Level POC Sodium POC Potassium Sodium 136 L Potassium Chloride Carbon Dioxide POC BUN BUN Creatinine Glucose 116 H POC Glucose Hemoglobin A1c Calcium AST ALT Total Protein Albumin 3.0 L Crossmatch 05/03/17 05/03/17 05/03/17 05:14 11:48 11:51 WBC RBC Hgb POC Hgb Hct POC Hct RDW Lymph % (Auto) [place] % (Auto) Lymph # [place] # Seg Neutrophils % Lymphocytes % (Manual) Monocytes % (Manual) Seg Neutrophils # INR APTT Heparin Anti-Xa Level 0.26 L POC Sodium POC Potassium Sodium Potassium Chloride Carbon Dioxide POC BUN BUN Creatinine Glucose POC Glucose 128 H Hemoglobin A1c 10.2 H Calcium AST ALT Total Protein Albumin Crossmatch 05/03/17 05/03/17 05/04/17 18:50 22:17 04:02 WBC RBC Hgb POC Hgb Hct POC Hct RDW 12.9 L Lymph % (Auto) [place] % (Auto) Lymph # [place] # Seg Neutrophils % Lymphocytes % (Manual) 13.0 L Monocytes % (Manual) 9.0 H Seg Neutrophils # INR APTT Heparin Anti-Xa Level POC Sodium POC Potassium Sodium Potassium Chloride Carbon Dioxide POC BUN BUN Creatinine Glucose POC Glucose 314 H 312 H Hemoglobin A1c Calcium AST ALT Total Protein Albumin Crossmatch 05/04/17 05/04/17 05/04/17 04:02 07:49 11:54 WBC RBC Hgb POC Hgb Hct POC Hct RDW Lymph % (Auto) [place] % (Auto) Lymph # [place] # Seg Neutrophils % Lymphocytes % (Manual) Monocytes % (Manual) Seg Neutrophils # INR APTT Heparin Anti-Xa Level POC Sodium POC Potassium Sodium 134 L Potassium 5.2 H Chloride 96.2 L Carbon Dioxide POC BUN BUN 21 H Creatinine Glucose 251 H POC Glucose 177 H 186 H Hemoglobin A1c Calcium AST ALT Total Protein Albumin 3.0 L Crossmatch 05/04/17 05/04/17 05/05/17 17:46 22:51 05:09 WBC RBC Hgb POC Hgb Hct POC Hct RDW Lymph % (Auto) [place] % (Auto) Lymph # [place] # Seg Neutrophils % Lymphocytes % (Manual) Monocytes % (Manual) Seg Neutrophils # INR APTT Heparin Anti-Xa Level POC Sodium POC Potassium Sodium 135 L Potassium Chloride Carbon Dioxide POC BUN BUN Creatinine Glucose 179 H POC Glucose 244 H 265 H Hemoglobin A1c Calcium AST ALT Total Protein Albumin 2.9 L Crossmatch 05/05/17 05/05/17 05/05/17 05:09 07:39 11:24 WBC RBC Hgb POC Hgb Hct POC Hct RDW Lymph % (Auto) [place] % (Auto) Lymph # [place] # Seg Neutrophils % Lymphocytes % (Manual) Monocytes % (Manual) Seg Neutrophils # INR APTT Heparin Anti-Xa Level 0.15 L 0.29 L POC Sodium POC Potassium Sodium Potassium Chloride Carbon Dioxide POC BUN BUN Creatinine Glucose POC Glucose 153 H Hemoglobin A1c Calcium AST ALT Total Protein Albumin Crossmatch 05/05/17 05/05/17 05/05/17 11:53 16:33 22:05 WBC RBC Hgb POC Hgb Hct POC Hct RDW Lymph % (Auto) [place] % (Auto) Lymph # [place] # Seg Neutrophils % Lymphocytes % (Manual) Monocytes % (Manual) Seg Neutrophils # INR APTT Heparin Anti-Xa Level POC Sodium POC Potassium Sodium Potassium Chloride Carbon Dioxide POC BUN BUN Creatinine Glucose POC Glucose 171 H 317 H 313 H Hemoglobin A1c Calcium AST ALT Total Protein Albumin Crossmatch 05/06/17 05/06/17 05/06/17 07:32 11:47 16:28 WBC RBC Hgb POC Hgb Hct POC Hct RDW Lymph % (Auto) [place] % (Auto) Lymph # [place] # Seg Neutrophils % Lymphocytes % (Manual) Monocytes % (Manual) Seg Neutrophils # INR APTT Heparin Anti-Xa Level POC Sodium POC Potassium Sodium Potassium Chloride Carbon Dioxide POC BUN BUN Creatinine Glucose POC Glucose 176 H 210 H 283 H Hemoglobin A1c Calcium AST ALT Total Protein Albumin Crossmatch 05/06/17 05/07/17 05/07/17 21:33 03:56 07:11 WBC RBC Hgb POC Hgb Hct POC Hct RDW Lymph % (Auto) [place] % (Auto) Lymph # [place] # Seg Neutrophils % Lymphocytes % (Manual) Monocytes % (Manual) Seg Neutrophils # INR APTT Heparin Anti-Xa Level 0.10 L POC Sodium POC Potassium Sodium Potassium Chloride Carbon Dioxide POC BUN BUN Creatinine Glucose POC Glucose 264 H 276 H Hemoglobin A1c Calcium AST ALT Total Protein Albumin Crossmatch 05/07/17 05/07/17 05/07/17 11:48 11:48 16:11 WBC RBC Hgb POC Hgb Hct POC Hct RDW Lymph % (Auto) [place] % (Auto) Lymph # [place] # Seg Neutrophils % Lymphocytes % (Manual) Monocytes % (Manual) Seg Neutrophils # INR APTT Heparin Anti-Xa Level POC Sodium 137 L POC Potassium 5.5 H Sodium Potassium Chloride Carbon Dioxide POC BUN 31 H BUN Creatinine Glucose POC Glucose 128 H 158 H Hemoglobin A1c Calcium AST ALT Total Protein Albumin Crossmatch See Detail 05/07/17 05/07/17 05/07/17 16:44 20:28 22:47 WBC RBC Hgb POC Hgb 11.6 L Hct POC Hct 34 L RDW Lymph % (Auto) [place] % (Auto) Lymph # [place] # Seg Neutrophils % Lymphocytes % (Manual) Monocytes % (Manual) Seg Neutrophils # INR APTT Heparin Anti-Xa Level POC Sodium POC Potassium 5.0 H Sodium Potassium Chloride Carbon Dioxide POC BUN 27 H BUN Creatinine Glucose POC Glucose 170 H 203 H 253 H Hemoglobin A1c Calcium AST ALT Total Protein Albumin Crossmatch 05/08/17 05/08/17 05/08/17 04:23 07:57 12:01 WBC RBC Hgb POC Hgb Hct POC Hct RDW Lymph % (Auto) [place] % (Auto) Lymph # [place] # Seg Neutrophils % Lymphocytes % (Manual) Monocytes % (Manual) Seg Neutrophils # INR APTT Heparin Anti-Xa Level POC Sodium POC Potassium Sodium Potassium 5.3 H D Chloride Carbon Dioxide 19 L POC BUN BUN 29 H Creatinine Glucose 223 H POC Glucose 258 H 282 H Hemoglobin A1c Calcium 8.2 L AST ALT Total Protein Albumin Crossmatch 05/08/17 05/08/17 05/08/17 15:42 19:44 21:39 WBC RBC Hgb POC Hgb Hct POC Hct RDW Lymph % (Auto) [place] % (Auto) Lymph # [place] # Seg Neutrophils % Lymphocytes % (Manual) Monocytes % (Manual) Seg Neutrophils # INR APTT Heparin Anti-Xa Level 0.25 L POC Sodium POC Potassium Sodium Potassium Chloride Carbon Dioxide POC BUN BUN Creatinine Glucose POC Glucose 280 H 329 H Hemoglobin A1c Calcium AST ALT Total Protein Albumin Crossmatch 05/09/17 05/09/17 05/09/17 01:52 08:27 12:02 WBC RBC Hgb POC Hgb Hct POC Hct RDW Lymph % (Auto) [place] % (Auto) Lymph # [place] # Seg Neutrophils % Lymphocytes % (Manual) Monocytes % (Manual) Seg Neutrophils # INR APTT Heparin Anti-Xa Level 0.29 L POC Sodium POC Potassium Sodium Potassium Chloride Carbon Dioxide POC BUN BUN Creatinine Glucose POC Glucose 187 H 190 H Hemoglobin A1c Calcium AST ALT Total Protein Albumin Crossmatch 05/09/17 05/09/17 05/10/17 16:42 21:58 03:41 WBC 13.4 H RBC 3.61 L Hgb 10.8 L POC Hgb Hct 31.9 L POC Hct RDW 13.1 L Lymph % (Auto) 12.9 L [place] % (Auto) 12.2 H Lymph # [place] # 1.6 H Seg Neutrophils % 74.1 H Lymphocytes % (Manual) Monocytes % (Manual) Seg Neutrophils # 10.0 H INR APTT Heparin Anti-Xa Level POC Sodium POC Potassium Sodium Potassium Chloride Carbon Dioxide POC BUN BUN Creatinine Glucose POC Glucose 245 H 344 H Hemoglobin A1c Calcium AST ALT Total Protein Albumin Crossmatch 05/10/17 05/10/17 05/10/17 03:41 07:31 12:08 WBC RBC Hgb POC Hgb Hct POC Hct RDW Lymph % (Auto) [place] % (Auto) Lymph # [place] # Seg Neutrophils % Lymphocytes % (Manual) Monocytes % (Manual) Seg Neutrophils # INR APTT Heparin Anti-Xa Level POC Sodium POC Potassium Sodium 134 L Potassium Chloride Carbon Dioxide 21 L POC BUN BUN Creatinine Glucose 171 H POC Glucose 127 H 172 H Hemoglobin A1c Calcium 8.2 L AST 51 H ALT Total Protein Albumin 2.2 L Crossmatch 05/10/17 05/10/17 05/11/17 16:28 21:04 05:03 WBC 19.1 H RBC 3.64 L Hgb 10.7 L POC Hgb Hct 32.1 L POC Hct RDW Lymph % (Auto) 11.8 L [place] % (Auto) 10.8 H Lymph # [place] # 2.1 H Seg Neutrophils % 75.6 H Lymphocytes % (Manual) Monocytes % (Manual) Seg Neutrophils # 14.4 H INR APTT Heparin Anti-Xa Level POC Sodium POC Potassium Sodium Potassium Chloride Carbon Dioxide POC BUN BUN Creatinine Glucose POC Glucose 197 H 295 H Hemoglobin A1c Calcium AST ALT Total Protein Albumin Crossmatch 05/11/17 05/11/17 05/11/17 05:03 07:30 09:52 WBC RBC Hgb POC Hgb Hct POC Hct RDW Lymph % (Auto) [place] % (Auto) Lymph # [place] # Seg Neutrophils % Lymphocytes % (Manual) Monocytes % (Manual) Seg Neutrophils # INR APTT Heparin Anti-Xa Level POC Sodium POC Potassium Sodium Potassium 5.2 H Chloride Carbon Dioxide POC BUN BUN Creatinine Glucose 143 H POC Glucose 118 H 124 H Hemoglobin A1c Calcium AST 51 H ALT Total Protein Albumin 2.7 L Crossmatch 05/11/17 05/11/17 05/11/17 11:32 12:22 16:22 WBC RBC Hgb POC Hgb Hct POC Hct RDW Lymph % (Auto) [place] % (Auto) Lymph # [place] # Seg Neutrophils % Lymphocytes % (Manual) Monocytes % (Manual) Seg Neutrophils # INR APTT Heparin Anti-Xa Level < 0.10 L POC Sodium POC Potassium Sodium Potassium Chloride Carbon Dioxide POC BUN BUN Creatinine Glucose POC Glucose 119 H 197 H Hemoglobin A1c Calcium AST ALT Total Protein Albumin Crossmatch 05/11/17 05/12/17 05/12/17 22:06 05:35 05:35 WBC RBC 3.64 L Hgb 10.8 L POC Hgb Hct 32.5 L POC Hct RDW Lymph % (Auto) 8.0 L [place] % (Auto) 12.8 H Lymph # 0.8 L [place] # 1.3 H Seg Neutrophils % 77.9 H Lymphocytes % (Manual) Monocytes % (Manual) Seg Neutrophils # 8.2 H INR APTT Heparin Anti-Xa Level POC Sodium POC Potassium Sodium 136 L Potassium Chloride Carbon Dioxide POC BUN BUN Creatinine Glucose 210 H POC Glucose 296 H Hemoglobin A1c Calcium 8.3 L AST ALT Total Protein 6.2 L Albumin 2.6 L Crossmatch 05/12/17 05/12/17 05/12/17 07:26 11:30 11:41 WBC RBC Hgb 11.4 L POC Hgb Hct 35.1 L POC Hct RDW Lymph % (Auto) [place] % (Auto) Lymph # [place] # Seg Neutrophils % Lymphocytes % (Manual) Monocytes % (Manual) Seg Neutrophils # INR APTT Heparin Anti-Xa Level POC Sodium POC Potassium Sodium Potassium Chloride Carbon Dioxide POC BUN BUN Creatinine Glucose POC Glucose 171 H 126 H Hemoglobin A1c Calcium AST ALT Total Protein Albumin Crossmatch 05/12/17 05/12/17 05/12/17 16:23 21:14 21:50 WBC RBC Hgb POC Hgb Hct POC Hct RDW Lymph % (Auto) [place] % (Auto) Lymph # [place] # Seg Neutrophils % Lymphocytes % (Manual) Monocytes % (Manual) Seg Neutrophils # INR APTT Heparin Anti-Xa Level 0.22 L POC Sodium POC Potassium Sodium Potassium Chloride Carbon Dioxide POC BUN BUN Creatinine Glucose POC Glucose 223 H 308 H Hemoglobin A1c Calcium AST ALT Total Protein Albumin Crossmatch 05/13/17 05/13/17 05/13/17 04:21 07:24 11:46 WBC RBC Hgb POC Hgb Hct POC Hct RDW Lymph % (Auto) [place] % (Auto) Lymph # [place] # Seg Neutrophils % Lymphocytes % (Manual) Monocytes % (Manual) Seg Neutrophils # INR APTT Heparin Anti-Xa Level 0.23 L POC Sodium POC Potassium Sodium Potassium Chloride Carbon Dioxide POC BUN BUN Creatinine Glucose POC Glucose 112 H 206 H Hemoglobin A1c Calcium AST ALT Total Protein Albumin Crossmatch 05/13/17 05/13/17 05/13/17 11:57 16:42 21:44 WBC RBC Hgb POC Hgb Hct POC Hct RDW Lymph % (Auto) [place] % (Auto) Lymph # [place] # Seg Neutrophils % Lymphocytes % (Manual) Monocytes % (Manual) Seg Neutrophils # INR APTT Heparin Anti-Xa Level 0.21 L POC Sodium POC Potassium Sodium Potassium Chloride Carbon Dioxide POC BUN BUN Creatinine Glucose POC Glucose 217 H 245 H Hemoglobin A1c Calcium AST ALT Total Protein Albumin Crossmatch 05/14/17 05/14/17 05/14/17 07:13 16:03 21:01 WBC RBC Hgb 10.9 L POC Hgb Hct 33.1 L POC Hct RDW Lymph % (Auto) [place] % (Auto) Lymph # [place] # Seg Neutrophils % Lymphocytes % (Manual) Monocytes % (Manual) Seg Neutrophils # INR APTT Heparin Anti-Xa Level POC Sodium POC Potassium Sodium Potassium Chloride Carbon Dioxide POC BUN BUN Creatinine Glucose POC Glucose 144 H 262 H Hemoglobin A1c Calcium AST ALT Total Protein Albumin Crossmatch 05/15/17 05/15/17 05/15/17 07:39 11:31 16:24 WBC RBC Hgb POC Hgb Hct POC Hct RDW Lymph % (Auto) [place] % (Auto) Lymph # [place] # Seg Neutrophils % Lymphocytes % (Manual) Monocytes % (Manual) Seg Neutrophils # INR APTT Heparin Anti-Xa Level POC Sodium POC Potassium Sodium Potassium Chloride Carbon Dioxide POC BUN BUN Creatinine Glucose POC Glucose 246 H 297 H 319 H Hemoglobin A1c Calcium AST ALT Total Protein Albumin Crossmatch 05/15/17 05/16/17 05/16/17 20:55 07:39 09:03 WBC RBC Hgb 8.4 L POC Hgb Hct 25.9 L D POC Hct RDW Lymph % (Auto) [place] % (Auto) Lymph # [place] # Seg Neutrophils % Lymphocytes % (Manual) Monocytes % (Manual) Seg Neutrophils # INR APTT Heparin Anti-Xa Level POC Sodium POC Potassium Sodium Potassium Chloride Carbon Dioxide POC BUN BUN Creatinine Glucose POC Glucose 344 H 110 H Hemoglobin A1c Calcium AST ALT Total Protein Albumin Crossmatch 05/16/17 05/16/17 05/16/17 11:51 16:48 23:09 WBC RBC Hgb POC Hgb Hct POC Hct RDW Lymph % (Auto) [place] % (Auto) Lymph # [place] # Seg Neutrophils % Lymphocytes % (Manual) Monocytes % (Manual) Seg Neutrophils # INR APTT Heparin Anti-Xa Level POC Sodium POC Potassium Sodium Potassium Chloride Carbon Dioxide POC BUN BUN Creatinine Glucose POC Glucose 119 H 188 H 219 H Hemoglobin A1c Calcium AST ALT Total Protein Albumin Crossmatch 05/17/17 05/17/17 05/17/17 04:39 04:39 07:34 WBC 18.6 H RBC 2.64 L Hgb 7.6 L POC Hgb Hct 23.3 L POC Hct RDW Lymph % (Auto) 7.2 L [place] % (Auto) 13.3 H Lymph # [place] # 2.5 H Seg Neutrophils % 79.2 H Lymphocytes % (Manual) Monocytes % (Manual) Seg Neutrophils # 14.8 H INR APTT Heparin Anti-Xa Level POC Sodium POC Potassium Sodium 133 L Potassium Chloride 95.5 L Carbon Dioxide POC BUN BUN 26 H Creatinine 1.6 H D Glucose 183 H POC Glucose 144 H Hemoglobin A1c Calcium 8.2 L AST 154 H ALT 79 H Total Protein Albumin 2.6 L Crossmatch 05/17/17 09:17 WBC RBC Hgb 8.3 L POC Hgb Hct 24.8 L POC Hct RDW Lymph % (Auto) [place] % (Auto) Lymph # [place] # Seg Neutrophils % Lymphocytes % (Manual) Monocytes % (Manual) Seg Neutrophils # INR APTT Heparin Anti-Xa Level POC Sodium POC Potassium Sodium Potassium Chloride Carbon Dioxide POC BUN BUN Creatinine Glucose POC Glucose Hemoglobin A1c Calcium AST ALT Total Protein Albumin Crossmatch
--- NOTE | 2017-05-17 15:23 | Progress Note ---
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 This subsequently thrombosed requiring percutaneous thrombectomy. Contacted regarding possible bleeding. Evaluated site which ensured no active bleeding with some mild heme staining. Reapply Almas wrap so that it is mildly compressive, but not constrictive. Continue heparin. Will need to be reconverted back to Pradaxa near discharge. Wound VAC placed by wound care nurse. Change pain medication to increase dose for patient comfort. I am concerned about the femoral portion of the wound with dehiscence of the upper portion of the wound. Contacting wound care in order to optimize dressings and for mild physical or enzymatic debridement of the fibrinous upper femoral area. Subjective Date of service: 05/17/17 Principal diagnosis: PAD, T2DM Interval history: Patient has a warm left lower extremity. I can palpate his venous graft which has a strong pulse. Cannot palpate his posterior tibial due to edema, but it has a strong Doppler signal. Contacted regarding possible bleeding from calf wound which I instructed them to apply an Almas wrap. This was removed and evaluated. There was no active bleeding. There is some heme stained Telfa noted. Area was cleaned and Telfa, Kerlix, and Almas bandage was reapplied. Instructed nurse to continue heparin. The left foot was evaluated, and there were some slight dusky areas of the foot. Will need hyperbaric oxygen and wound VAC placement. The left femoral incision was evaluated, and the most superior port of the incision was dehisced for 1 cm with some fibrinous material noted. Old hematoma noted on the lower portion of the femoral incision. H&H came back 7.4 and was repeated and found to be 8.3. No blood was provided. Objective - Constitutional Vitals: Vital Signs - 12hr 05/17/17 05/17/17 05/17/17 08:25 10:00 10:23 Temperature 99.7 F H Pulse Rate 85 96 H Pulse Rate [ 102 H From Monitor] Respiratory 18 Rate Blood Pressure 111/51 Blood Pressure 103/61 [Left Arm] O2 Sat by Pulse 98 Oximetry 05/17/17 10:24 Temperature Pulse Rate 96 H Pulse Rate [ From Monitor] Respiratory Rate Blood Pressure 111/51 Blood Pressure [Left Arm] O2 Sat by Pulse Oximetry General appearance: Present: mild distress (from incisions) - EENT Eyes: EOM intact ENT: hearing intact - Respiratory Respiratory effort: normal Extremities: normal temperature, normal color, abnormal (see subjective) - Psychiatric Psychiatric: appropriate mood/affect, cooperative - Labs CBC & Chem 7: 05/17/17 09:17 05/17/17 04:39 Labs: Abnormal lab results 05/16/17 05/16/17 05/17/17 Range/Units 16:48 23:09 04:39 WBC (4.5-11.0) K/mm3 RBC (3.65-5.03) M/mm3 Hgb (11.8-15.2) gm/dl Hct (35.5-45.6) % Lymph % (Auto) (13.4-35.0) % [place] % (Auto) (0.0-7.3) % [place] # (0.0-0.8) K/mm3 Seg Neutrophils % (40.0-70.0) % Seg Neutrophils # (1.8-7.7) K/mm3 Sodium 133 L (137-145) mmol/L Chloride 95.5 L (98-107) mmol/L BUN 26 H (9-20) mg/dL Creatinine 1.6 H D (0.8-1.5) mg/dL Glucose 183 H (75-100) mg/dL POC Glucose 188 H 219 H (70-105) Calcium 8.2 L (8.4-10.2) mg/dL AST 154 H (5-40) units/L ALT 79 H (7-56) units/L Albumin 2.6 L (3.9-5) g/dL 05/17/17 05/17/17 05/17/17 Range/Units 04:39 07:34 09:17 WBC 18.6 H (4.5-11.0) K/mm3 RBC 2.64 L (3.65-5.03) M/mm3 Hgb 7.6 L 8.3 L (11.8-15.2) gm/dl Hct 23.3 L 24.8 L (35.5-45.6) % Lymph % (Auto) 7.2 L (13.4-35.0) % [place] % (Auto) 13.3 H (0.0-7.3) % [place] # 2.5 H (0.0-0.8) K/mm3 Seg Neutrophils % 79.2 H (40.0-70.0) % Seg Neutrophils # 14.8 H (1.8-7.7) K/mm3 Sodium (137-145) mmol/L Chloride (98-107) mmol/L BUN (9-20) mg/dL Creatinine (0.8-1.5) mg/dL Glucose (75-100) mg/dL POC Glucose 144 H (70-105) Calcium (8.4-10.2) mg/dL AST (5-40) units/L ALT (7-56) units/L Albumin (3.9-5) g/dL
[2017-05-17] MEDS: LEVEMIR SUB-Q SCH (23:52)
[2017-05-18 05:14] LABS: Basophils % (Auto) 0.2 % (0.0-1.8); Eosinophils % (Auto) 0.1 % (0.0-4.3); Hematocrit 24.2 % (35.5-45.6); Hemoglobin 7.9 gm/dl (11.8-15.2); Mean Corpuscular HGB Conc 33 % (32-34); Mean Corpuscular Hemoglobin 29 pg (28-32); Mean Corpuscular Volume 89 fl (84-94); Platelet Count 312 K/mm3 (140-440); Red Blood Count 2.73 M/mm3 (3.65-5.03); Red Cell Distribution Width 13.5 % (13.2-15.2); White Blood Count 19.8 K/mm3 (4.5-11.0)
[2017-05-18 05:36] LABS: Albumin 2.7 g/dL (3.9-5); Albumin/Globulin Ratio 0.7 %; BUN/Creatinine Ratio 18.57; Bilirubin,Total 0.7 mg/dL (0.1-1.2); Calcium 8.6 mg/dL (8.4-10.2); Chloride 93.3 mmol/L (98-107); Potassium 4.7 mmol/L (3.6-5.0); Total Protein 6.8 g/dL (6.3-8.2)
[2017-05-18] MEDS: HEPARIN/ 0.45% NACL-25,000 UNIT/500 ML 25,000 UNIT/500 ML BAG IV SCH (05:38)
[2017-05-18] MEDS: NOVOLOG SUB-Q SCH ×4 (07:44→22:27)
--- NOTE | 2017-05-18 09:09 | Progress Note ---
Assessment and Plan - PAD - s/p Left femoral artery angioplasy, left femoral artery endoarterectomy and left femoral artery to post tibia artery bypass on 05/07/17 - IDDM: controlled with Levamir and SSI - Diabetic Left gangrene : revascularization and local wound care - Diabetic peripheral Neuropathy: Continue with Gabapentin - Ischemic cardiomyopathy with EF 40-45% as at 2016 - Dysipidemia: On statin - Bleeding from the incision site on the left leg and hematoma on the left groin. Hold heparin drip for now. DVT and GI PPx with heparing and pepcid Subjective Date of service: 05/18/17 Principal diagnosis: PAD, T2DM Interval history: C/o pain and swelling left leg. No more bleeding from the incision sites in the left leg Pt with T2DM, PAD s/p Left femoral artery angioplasy, left femoral artery endoarterectomy and left femoral artery to post tibia artery bypass done with further intervention on 05/13/17. Objective - Constitutional Vitals: Vital Signs - 12hr 05/17/17 05/18/17 22:00 08:13 Temperature 99.6 F 99.9 F H Pulse Rate 90 Pulse Rate [ 85 86 From Monitor] Respiratory 16 18 Rate Blood Pressure 101/51 120/54 [Left Arm] O2 Sat by Pulse 97 Oximetry General appearance: Present: no acute distress, well-nourished - EENT Eyes: PERRL, EOM intact ENT: hearing intact, clear oral mucosa - Neck Neck: supple, normal ROM - Respiratory Respiratory effort: normal Respiratory: bilateral: CTA - Cardiovascular Rhythm: regular Heart Sounds: Present: S1 & S2. Absent: gallop, rub Extremities: pulses intact, No edema, normal color, Full ROM - Gastrointestinal General gastrointestinal: Present: soft, non-tender, non-distended, normal bowel sounds - Integumentary Integumentary: clear, warm, dry - Musculoskeletal Musculoskeletal: 1, strength equal bilaterally - Neurologic Neurologic: moves all extremities - Psychiatric Psychiatric: memory intact, appropriate mood/affect, intact judgment & insight - Labs CBC & Chem 7: 05/20/17 07:14 05/18/17 04:23 Labs: Abnormal lab results 05/17/17 05/17/17 05/17/17 Range/Units 09:17 16:23 22:37 WBC (4.5-11.0) K/mm3 RBC (3.65-5.03) M/mm3 Hgb 8.3 L (11.8-15.2) gm/dl Hct 24.8 L (35.5-45.6) % Lymph % (Auto) (13.4-35.0) % [place] % (Auto) (0.0-7.3) % [place] # (0.0-0.8) K/mm3 Seg Neutrophils % (40.0-70.0) % Seg Neutrophils # (1.8-7.7) K/mm3 Sodium (137-145) mmol/L Chloride (98-107) mmol/L BUN (9-20) mg/dL Glucose (75-100) mg/dL POC Glucose 145 H 207 H (70-105) AST (5-40) units/L ALT (7-56) units/L Albumin (3.9-5) g/dL 05/18/17 05/18/17 05/18/17 Range/Units 04:23 04:23 07:37 WBC 19.8 H (4.5-11.0) K/mm3 RBC 2.73 L (3.65-5.03) M/mm3 Hgb 7.9 L (11.8-15.2) gm/dl Hct 24.2 L (35.5-45.6) % Lymph % (Auto) 6.1 L (13.4-35.0) % [place] % (Auto) 13.8 H (0.0-7.3) % [place] # 2.7 H (0.0-0.8) K/mm3 Seg Neutrophils % 79.8 H (40.0-70.0) % Seg Neutrophils # 15.8 H (1.8-7.7) K/mm3 Sodium 133 L (137-145) mmol/L Chloride 93.3 L (98-107) mmol/L BUN 26 H (9-20) mg/dL Glucose 145 H (75-100) mg/dL POC Glucose 144 H (70-105) AST 189 H (5-40) units/L ALT 101 H (7-56) units/L Albumin 2.7 L (3.9-5) g/dL
[2017-05-18] MEDS: SENOKOT PO SCH (09:53)
[2017-05-18] MEDS: LYRICA PO SCH ×2 (09:53)
[2017-05-18] MEDS: COLACE PO SCH ×2 (09:54→21:51)
[2017-05-18] MEDS: PLAVIX PO SCH (09:54)
[2017-05-18] MEDS: FOLBEE PLUS CZ PO SCH (09:54)
[2017-05-18] MEDS: PEPCID PO SCH (09:55)
[2017-05-18] MEDS: ZESTRIL PO SCH (09:55)
[2017-05-18] MEDS: MIRALAX 3350 PO PRN (09:56)
[2017-05-18] MEDS: TOPROL XL PO SCH (09:56)
--- NOTE | 2017-05-18 12:06 | Progress Note ---
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 Otherwise, conservative cardiac management. Continue plavix and moderate intensity statins Add aspirin if no contraindication Subjective Date of service: 05/18/17 Principal diagnosis: PAD, T2DM Interval history: NO events overnight Objective Vital Signs Temp Pulse Pulse Resp BP BP Pulse Ox 05/18/17 10:00 92 H 05/18/17 09:56 86 120/54 05/18/17 09:55 86 120/54 05/18/17 08:13 99.9 F H 86 18 120/54 05/17/17 22:00 99.6 F 90 85 16 101/51 97 05/17/17 16:30 92 H - Physical Examination Narrative exam: vitals reviewed No acute distress HENT- carotids no bruit CVS- S1 S2 heard no significant murmur RS- NVBS heard P/A- Soft BS heard COLLETER - non focal Extremities- warm. Dressing noted. Stable arpit General: No Apparent Distress HEENT: Positive: PERRL Neck: Positive: trachea midline Neuro: Positive: Grossly Intact Abdomen: Positive: Soft Extremities: Present: Ulceration Noted - Labs and Meds Cardiac Enzymes 05/18/17 Range/Units 04:23 AST 189 H (5-40) units/L CBC 05/18/17 Range/Units 04:23 WBC 19.8 H (4.5-11.0) K/mm3 RBC 2.73 L (3.65-5.03) M/mm3 Hgb 7.9 L (11.8-15.2) gm/dl Hct 24.2 L (35.5-45.6) % Plt Count 312 (140-440) K/mm3 Lymph # 1.2 (1.2-5.4) K/mm3 [place] # 2.7 H (0.0-0.8) K/mm3 Eos # 0.0 (0.0-0.4) K/mm3 Baso # 0.0 (0.0-0.1) K/mm3 Comprehensive Metabolic Panel 05/18/17 Range/Units 04:23 Sodium 133 L (137-145) mmol/L Potassium 4.7 (3.6-5.0) mmol/L Chloride 93.3 L (98-107) mmol/L Carbon Dioxide 24 (22-30) mmol/L BUN 26 H (9-20) mg/dL Creatinine 1.4 (0.8-1.5) mg/dL Glucose 145 H (75-100) mg/dL Calcium 8.6 (8.4-10.2) mg/dL AST 189 H (5-40) units/L ALT 101 H (7-56) units/L Alkaline Phosphatase 70 (35-129) units/L Total Protein 6.8 (6.3-8.2) g/dL Albumin 2.7 L (3.9-5) g/dL
--- NOTE | 2017-05-18 12:32 | Progress Note ---
Assessment and Plan Discussed with ET nurse yesterday. They will reassess the pt this am, and add a vac to the groin. Pt's WBC has increase to ~19K. Temps have been elevated, but not febrile presently. Pt has a bovine pericardial patch on the femoral artery. Will consult ID, and consider starting ABX. - Patient Problems (1) Atherosclerosis of [place] arteries of the extremities with ulceration Onset Date: 08/22/16 Current Visit: No Status: Acute (2) Ischemia of left lower extremity Current Visit: Yes Status: Acute Subjective Date of service: 05/18/17 Principal diagnosis: PAD, T2DM Interval history: Pt awake without complaint at present. Objective - Constitutional Vitals: Vital Signs - 12hr 05/18/17 05/18/17 05/18/17 08:13 09:55 09:56 Temperature 99.9 F H Pulse Rate 86 86 Pulse Rate [ 86 From Monitor] Respiratory 18 Rate Blood Pressure 120/54 120/54 Blood Pressure 120/54 [Left Arm] 05/18/17 10:00 Temperature Pulse Rate 92 H Pulse Rate [ From Monitor] Respiratory Rate Blood Pressure Blood Pressure [Left Arm] General appearance: Present: no acute distress - EENT Eyes: EOM intact ENT: hearing intact - Respiratory Respiratory effort: normal Extremities: no ischemia, normal temperature, abnormal (Left groin incison intact with a small area of tissue separation at the top. The area is indurated. No erythema. There is mod amount of clear fluid around the wound.) - Neurologic Neurologic: no focal deficits - Psychiatric Psychiatric: cooperative - Labs CBC & Chem 7: 05/18/17 04:23 05/18/17 04:23 Labs: Abnormal lab results 05/17/17 05/17/17 05/18/17 Range/Units 16:23 22:37 04:23 WBC 19.8 H (4.5-11.0) K/mm3 RBC 2.73 L (3.65-5.03) M/mm3 Hgb 7.9 L (11.8-15.2) gm/dl Hct 24.2 L (35.5-45.6) % Lymph % (Auto) 6.1 L (13.4-35.0) % [place] % (Auto) 13.8 H (0.0-7.3) % [place] # 2.7 H (0.0-0.8) K/mm3 Seg Neutrophils % 79.8 H (40.0-70.0) % Seg Neutrophils # 15.8 H (1.8-7.7) K/mm3 Sodium (137-145) mmol/L Chloride (98-107) mmol/L BUN (9-20) mg/dL Glucose (75-100) mg/dL POC Glucose 145 H 207 H (70-105) AST (5-40) units/L ALT (7-56) units/L Albumin (3.9-5) g/dL 05/18/17 05/18/17 05/18/17 Range/Units 04:23 07:37 11:24 WBC (4.5-11.0) K/mm3 RBC (3.65-5.03) M/mm3 Hgb (11.8-15.2) gm/dl Hct (35.5-45.6) % Lymph % (Auto) (13.4-35.0) % [place] % (Auto) (0.0-7.3) % [place] # (0.0-0.8) K/mm3 Seg Neutrophils % (40.0-70.0) % Seg Neutrophils # (1.8-7.7) K/mm3 Sodium 133 L (137-145) mmol/L Chloride 93.3 L (98-107) mmol/L BUN 26 H (9-20) mg/dL Glucose 145 H (75-100) mg/dL POC Glucose 144 H 142 H (70-105) AST 189 H (5-40) units/L ALT 101 H (7-56) units/L Albumin 2.7 L (3.9-5) g/dL
--- NOTE | 2017-05-18 13:58 | Progress Note ---
Assessment and Plan - Patient Problems (1) Ischemia of left lower extremity Current Visit: Yes Status: Acute Plan to address problem: - s/p Fem-[employer] bypass - no active bleeding - hemodynamically stable - follow H&H (2) CAD (coronary artery disease) Current Visit: Yes Status: Chronic Qualifiers: Coronary Disease-Associated Artery/Lesion type: [place] artery [place] vs. transplanted heart: N Associated angina: without angina Plan to address problem: - conservative / medical management per cardiology (3) IDDM (insulin dependent diabetes mellitus) Current Visit: Yes Status: Chronic Plan to address problem: - continue SSI - continue levimir at 40units sq qhs - accuchecks qac & qhs (4) Acute deep vein thrombosis (DVT) of left peroneal vein Onset Date: 07/13/16 Current Visit: No Status: Acute Plan to address problem: - on IV heparin - follow H&H - per vascular team otherwise (5) Discharge planning issues Current Visit: Yes Status: Acute Plan to address problem: - per attending Subjective Date of service: 05/18/17 Principal diagnosis: PVD s/p Femoral-Post Tibial Artery Bypass; CAD s/p CABG; Diabetes II Interval history: Seen and examined at bedside; 24 hour events reviewed; nursing and respiratory care staff consulted; no adverse overnight events reported to me; resting peacefully in bed; no emesis or overt aspiration; mild fevers; no gross bleeding Objective Vital Signs - 12hr 05/18/17 05/18/17 05/18/17 08:13 09:55 09:56 Temperature 99.9 F H Pulse Rate 86 86 Pulse Rate [ 86 From Monitor] Respiratory 18 Rate Blood Pressure 120/54 120/54 Blood Pressure 120/54 [Left Arm] 05/18/17 10:00 Temperature Pulse Rate 92 H Pulse Rate [ 96 H From Monitor] Respiratory Rate Blood Pressure Blood Pressure [Left Arm] Constitutional: no acute distress, alert Eyes: non-icteric ENT: oropharynx moist Neck: supple, no lymphadenopathy Ascultation: Bilateral: diminished breath sounds Cardiovascular: regular rate and rhythm Gastrointestinal: normoactive bowel sounds, soft, non-tender Integumentary: cellulitis (Left foot.) Extremities: no cyanosis, no edema, other (left foot in clean dressing and MIKALA bandage) Neurologic: normal mental status, non-focal exam, pupils equal and round, motor strength normal and Psychiatric: mood appropriate, affect normal CBC and BMP: 05/21/17 03:58 05/21/17 03:58 ABG, PT/INR, D-dimer: PT/INR, D-dimer PT 14.0 Sec. (12.2-14.9) 05/12/17 11:41 INR 1.09 (0.87-1.13) 05/12/17 11:41 Abnormal lab findings: Abnormal Labs 05/01/17 05/01/17 05/01/17 14:55 14:55 14:55 WBC 12.0 H RBC Hgb POC Hgb Hct POC Hct RDW 12.9 L Lymph % (Auto) 6.3 L Stokes % (Auto) Lymph # 0.8 L Stokes # 0.9 H Seg Neutrophils % 85.9 H Lymphocytes % (Manual) Monocytes % (Manual) Seg Neutrophils # 10.3 H INR 1.15 H APTT 37.7 H Heparin Anti-Xa Level POC Sodium POC Potassium Sodium Potassium Chloride 97.8 L Carbon Dioxide POC BUN BUN 23 H Creatinine Glucose 321 H POC Glucose Hemoglobin A1c Calcium AST ALT Total Protein Albumin Crossmatch 05/01/17 05/01/17 05/02/17 18:32 21:49 03:51 WBC RBC Hgb POC Hgb Hct POC Hct RDW 12.8 L Lymph % (Auto) Stokes % (Auto) 12.4 H Lymph # Stokes # 1.0 H Seg Neutrophils % Lymphocytes % (Manual) Monocytes % (Manual) Seg Neutrophils # INR APTT Heparin Anti-Xa Level POC Sodium POC Potassium Sodium Potassium Chloride Carbon Dioxide POC BUN BUN Creatinine Glucose POC Glucose 247 H 280 H Hemoglobin A1c Calcium AST ALT Total Protein Albumin Crossmatch 05/02/17 05/02/17 05/02/17 03:51 03:51 07:27 WBC RBC Hgb POC Hgb Hct POC Hct RDW Lymph % (Auto) Stokes % (Auto) Lymph # Stokes # Seg Neutrophils % Lymphocytes % (Manual) Monocytes % (Manual) Seg Neutrophils # INR APTT Heparin Anti-Xa Level 0.22 L POC Sodium POC Potassium Sodium Potassium Chloride Carbon Dioxide POC BUN BUN Creatinine Glucose 136 H POC Glucose 115 H Hemoglobin A1c Calcium AST ALT Total Protein Albumin Crossmatch 05/02/17 05/02/17 05/02/17 11:50 20:33 21:56 WBC RBC Hgb POC Hgb Hct POC Hct RDW Lymph % (Auto) Stokes % (Auto) Lymph # Stokes # Seg Neutrophils % Lymphocytes % (Manual) Monocytes % (Manual) Seg Neutrophils # INR APTT Heparin Anti-Xa Level 0.24 L POC Sodium POC Potassium Sodium Potassium Chloride Carbon Dioxide POC BUN BUN Creatinine Glucose POC Glucose 165 H 248 H Hemoglobin A1c Calcium AST ALT Total Protein Albumin Crossmatch 05/03/17 05/03/17 05/03/17 03:23 05:14 05:14 WBC RBC Hgb POC Hgb Hct POC Hct RDW 12.8 L Lymph % (Auto) Stokes % (Auto) 14.1 H Lymph # Stokes # 1.2 H Seg Neutrophils % Lymphocytes % (Manual) Monocytes % (Manual) Seg Neutrophils # INR APTT 101.1 H* Heparin Anti-Xa Level POC Sodium POC Potassium Sodium 136 L Potassium Chloride Carbon Dioxide POC BUN BUN Creatinine Glucose 116 H POC Glucose Hemoglobin A1c Calcium AST ALT Total Protein Albumin 3.0 L Crossmatch 05/03/17 05/03/17 05/03/17 05:14 11:48 11:51 WBC RBC Hgb POC Hgb Hct POC Hct RDW Lymph % (Auto) Stokes % (Auto) Lymph # Stokes # Seg Neutrophils % Lymphocytes % (Manual) Monocytes % (Manual) Seg Neutrophils # INR APTT Heparin Anti-Xa Level 0.26 L POC Sodium POC Potassium Sodium Potassium Chloride Carbon Dioxide POC BUN BUN Creatinine Glucose POC Glucose 128 H Hemoglobin A1c 10.2 H Calcium AST ALT Total Protein Albumin Crossmatch 05/03/17 05/03/17 05/04/17 18:50 22:17 04:02 WBC RBC Hgb POC Hgb Hct POC Hct RDW 12.9 L Lymph % (Auto) Stokes % (Auto) Lymph # Stokes # Seg Neutrophils % Lymphocytes % (Manual) 13.0 L Monocytes % (Manual) 9.0 H Seg Neutrophils # INR APTT Heparin Anti-Xa Level POC Sodium POC Potassium Sodium Potassium Chloride Carbon Dioxide POC BUN BUN Creatinine Glucose POC Glucose 314 H 312 H Hemoglobin A1c Calcium AST ALT Total Protein Albumin Crossmatch 05/04/17 05/04/17 05/04/17 04:02 07:49 11:54 WBC RBC Hgb POC Hgb Hct POC Hct RDW Lymph % (Auto) Stokes % (Auto) Lymph # Stokes # Seg Neutrophils % Lymphocytes % (Manual) Monocytes % (Manual) Seg Neutrophils # INR APTT Heparin Anti-Xa Level POC Sodium POC Potassium Sodium 134 L Potassium 5.2 H Chloride 96.2 L Carbon Dioxide POC BUN BUN 21 H Creatinine Glucose 251 H POC Glucose 177 H 186 H Hemoglobin A1c Calcium AST ALT Total Protein Albumin 3.0 L Crossmatch 05/04/17 05/04/17 05/05/17 17:46 22:51 05:09 WBC RBC Hgb POC Hgb Hct POC Hct RDW Lymph % (Auto) Stokes % (Auto) Lymph # Stokes # Seg Neutrophils % Lymphocytes % (Manual) Monocytes % (Manual) Seg Neutrophils # INR APTT Heparin Anti-Xa Level POC Sodium POC Potassium Sodium 135 L Potassium Chloride Carbon Dioxide POC BUN BUN Creatinine Glucose 179 H POC Glucose 244 H 265 H Hemoglobin A1c Calcium AST ALT Total Protein Albumin 2.9 L Crossmatch 05/05/17 05/05/17 05/05/17 05:09 07:39 11:24 WBC RBC Hgb POC Hgb Hct POC Hct RDW Lymph % (Auto) Stokes % (Auto) Lymph # Stokes # Seg Neutrophils % Lymphocytes % (Manual) Monocytes % (Manual) Seg Neutrophils # INR APTT Heparin Anti-Xa Level 0.15 L 0.29 L POC Sodium POC Potassium Sodium Potassium Chloride Carbon Dioxide POC BUN BUN Creatinine Glucose POC Glucose 153 H Hemoglobin A1c Calcium AST ALT Total Protein Albumin Crossmatch 05/05/17 05/05/17 05/05/17 11:53 16:33 22:05 WBC RBC Hgb POC Hgb Hct POC Hct RDW Lymph % (Auto) Stokes % (Auto) Lymph # Stokes # Seg Neutrophils % Lymphocytes % (Manual) Monocytes % (Manual) Seg Neutrophils # INR APTT Heparin Anti-Xa Level POC Sodium POC Potassium Sodium Potassium Chloride Carbon Dioxide POC BUN BUN Creatinine Glucose POC Glucose 171 H 317 H 313 H Hemoglobin A1c Calcium AST ALT Total Protein Albumin Crossmatch 05/06/17 05/06/17 05/06/17 07:32 11:47 16:28 WBC RBC Hgb POC Hgb Hct POC Hct RDW Lymph % (Auto) Stokes % (Auto) Lymph # Stokes # Seg Neutrophils % Lymphocytes % (Manual) Monocytes % (Manual) Seg Neutrophils # INR APTT Heparin Anti-Xa Level POC Sodium POC Potassium Sodium Potassium Chloride Carbon Dioxide POC BUN BUN Creatinine Glucose POC Glucose 176 H 210 H 283 H Hemoglobin A1c Calcium AST ALT Total Protein Albumin Crossmatch 05/06/17 05/07/1705/07/17 21:33 03:56 07:11 WBC RBC Hgb POC Hgb Hct POC Hct RDW Lymph % (Auto) Stokes % (Auto) Lymph # Stokes # Seg Neutrophils % Lymphocytes % (Manual) Monocytes % (Manual) Seg Neutrophils # INR APTT Heparin Anti-Xa Level 0.10 L POC Sodium POC Potassium Sodium Potassium Chloride Carbon Dioxide POC BUN BUN Creatinine Glucose POC Glucose 264 H 276 H Hemoglobin A1c Calcium AST ALT Total Protein Albumin Crossmatch 05/07/17 05/07/17 05/07/17 11:48 11:48 16:11 WBC RBC Hgb POC Hgb Hct POC Hct RDW Lymph % (Auto) Stokes % (Auto) Lymph # Stokes # Seg Neutrophils % Lymphocytes % (Manual) Monocytes % (Manual) Seg Neutrophils # INR APTT Heparin Anti-Xa Level POC Sodium 137 L POC Potassium 5.5 H Sodium Potassium Chloride Carbon Dioxide POC BUN 31 H BUN Creatinine Glucose POC Glucose 128 H 158 H Hemoglobin A1c Calcium AST ALT Total Protein Albumin Crossmatch See Detail 05/07/17 05/07/17 05/07/17 16:44 20:28 22:47 WBC RBC Hgb POC Hgb 11.6 L Hct POC Hct 34 L RDW Lymph % (Auto) Stokes % (Auto) Lymph # Stokes # Seg Neutrophils % Lymphocytes % (Manual) Monocytes % (Manual) Seg Neutrophils # INR APTT Heparin Anti-Xa Level POC Sodium POC Potassium 5.0 H Sodium Potassium Chloride Carbon Dioxide POC BUN 27 H BUN Creatinine Glucose POC Glucose 170 H 203 H 253 H Hemoglobin A1c Calcium AST ALT Total Protein Albumin Crossmatch 05/08/17 05/08/17 05/08/17 04:23 07:57 12:01 WBC RBC Hgb POC Hgb Hct POC Hct RDW Lymph % (Auto) Stokes % (Auto) Lymph # Stokes # Seg Neutrophils % Lymphocytes % (Manual) Monocytes % (Manual) Seg Neutrophils # INR APTT Heparin Anti-Xa Level POC Sodium POC Potassium Sodium Potassium 5.3 H D Chloride Carbon Dioxide 19 L POC BUN BUN 29 H Creatinine Glucose 223 H POC Glucose 258 H 282 H Hemoglobin A1c Calcium 8.2 L AST ALT Total Protein Albumin Crossmatch 05/08/17 05/08/17 05/08/17 15:42 19:44 21:39 WBC RBC Hgb POC Hgb Hct POC Hct RDW Lymph % (Auto) Stokes % (Auto) Lymph # Stokes # Seg Neutrophils % Lymphocytes % (Manual) Monocytes % (Manual) Seg Neutrophils # INR APTT Heparin Anti-Xa Level 0.25 L POC Sodium POC Potassium Sodium Potassium Chloride Carbon Dioxide POC BUN BUN Creatinine Glucose POC Glucose 280 H 329 H Hemoglobin A1c Calcium AST ALT Total Protein Albumin Crossmatch 05/09/17 05/09/17 05/09/17 01:52 08:27 12:02 WBC RBC Hgb POC Hgb Hct POC Hct RDW Lymph % (Auto) Stokes % (Auto) Lymph # Stokes # Seg Neutrophils % Lymphocytes % (Manual) Monocytes % (Manual) Seg Neutrophils # INR APTT Heparin Anti-Xa Level 0.29 L POC Sodium POC Potassium Sodium Potassium Chloride Carbon Dioxide POC BUN BUN Creatinine Glucose POC Glucose 187 H 190 H Hemoglobin A1c Calcium AST ALT Total Protein Albumin Crossmatch 05/09/17 05/09/17 05/10/17 16:42 21:58 03:41 WBC 13.4 H RBC 3.61 L Hgb 10.8 L POC Hgb Hct 31.9 L POC Hct RDW 13.1 L Lymph % (Auto) 12.9 L Stokes % (Auto) 12.2 H Lymph # Stokes # 1.6 H Seg Neutrophils % 74.1 H Lymphocytes % (Manual) Monocytes % (Manual) Seg Neutrophils # 10.0 H INR APTT Heparin Anti-Xa Level POC Sodium POC Potassium Sodium Potassium Chloride Carbon Dioxide POC BUN BUN Creatinine Glucose POC Glucose 245 H 344 H Hemoglobin A1c Calcium AST ALT Total Protein Albumin Crossmatch 05/10/17 05/10/17 05/10/17 03:41 07:31 12:08 WBC RBC Hgb POC Hgb Hct POC Hct RDW Lymph % (Auto) Stokes % (Auto) Lymph # Stokes # Seg Neutrophils % Lymphocytes % (Manual) Monocytes % (Manual) Seg Neutrophils # INR APTT Heparin Anti-Xa Level POC Sodium POC Potassium Sodium 134 L Potassium Chloride Carbon Dioxide 21 L POC BUN BUN Creatinine Glucose 171 H POC Glucose 127 H 172 H Hemoglobin A1c Calcium 8.2 L AST 51 H ALT Total Protein Albumin 2.2 L Crossmatch 05/10/17 05/10/17 05/11/17 16:28 21:04 05:03 WBC 19.1 H RBC 3.64 L Hgb 10.7 L POC Hgb Hct 32.1 L POC Hct RDW Lymph % (Auto) 11.8 L Stokes % (Auto) 10.8 H Lymph # Stokes # 2.1 H Seg Neutrophils % 75.6 H Lymphocytes % (Manual) Monocytes % (Manual) Seg Neutrophils # 14.4 H INR APTT Heparin Anti-Xa Level POC Sodium POC Potassium Sodium Potassium Chloride Carbon Dioxide POC BUN BUN Creatinine Glucose POC Glucose 197 H 295 H Hemoglobin A1c Calcium AST ALT Total Protein Albumin Crossmatch 05/11/17 05/11/17 05/11/17 05:03 07:30 09:52 WBC RBC Hgb POC Hgb Hct POC Hct RDW Lymph % (Auto) Stokes % (Auto) Lymph # Stokes # Seg Neutrophils % Lymphocytes % (Manual) Monocytes % (Manual) Seg Neutrophils # INR APTT Heparin Anti-Xa Level POC Sodium POC Potassium Sodium Potassium 5.2 H Chloride Carbon Dioxide POC BUN BUN Creatinine Glucose 143 H POC Glucose 118 H 124 H Hemoglobin A1c Calcium AST 51 H ALT Total Protein Albumin 2.7 L Crossmatch 05/11/17 05/11/17 05/11/17 11:32 12:22 16:22 WBC RBC Hgb POC Hgb Hct POC Hct RDW Lymph % (Auto) Stokes % (Auto) Lymph # Stokes # Seg Neutrophils % Lymphocytes % (Manual) Monocytes % (Manual) Seg Neutrophils # INR APTT Heparin Anti-Xa Level < 0.10 L POC Sodium POC Potassium Sodium Potassium Chloride Carbon Dioxide POC BUN BUN Creatinine Glucose POC Glucose 119 H 197 H Hemoglobin A1c Calcium AST ALT Total Protein Albumin Crossmatch 05/11/17 05/12/17 05/12/17 22:06 05:35 05:35 WBC RBC 3.64 L Hgb 10.8 L POC Hgb Hct 32.5 L POC Hct RDW Lymph % (Auto) 8.0 L Stokes % (Auto) 12.8 H Lymph # 0.8 L Stokes # 1.3 H Seg Neutrophils % 77.9 H Lymphocytes % (Manual) Monocytes % (Manual) Seg Neutrophils # 8.2 H INR APTT Heparin Anti-Xa Level POC Sodium POC Potassium Sodium 136 L Potassium Chloride Carbon Dioxide POC BUN BUN Creatinine Glucose 210 H POC Glucose 296 H Hemoglobin A1c Calcium 8.3 L AST ALT Total Protein 6.2 L Albumin 2.6 L Crossmatch 05/12/17 05/12/17 05/12/17 07:26 11:30 11:41 WBC RBC Hgb 11.4 L POC Hgb Hct 35.1 L POC Hct RDW Lymph % (Auto) Stokes % (Auto) Lymph # Stokes # Seg Neutrophils % Lymphocytes % (Manual) Monocytes % (Manual) Seg Neutrophils # INR APTT Heparin Anti-Xa Level POC Sodium POC Potassium Sodium Potassium Chloride Carbon Dioxide POC BUN BUN Creatinine Glucose POC Glucose 171 H 126 H Hemoglobin A1c Calcium AST ALT Total Protein Albumin Crossmatch 05/12/17 05/12/17 05/12/17 16:23 21:14 21:50 WBC RBC Hgb POC Hgb Hct POC Hct RDW Lymph % (Auto) Stokes % (Auto) Lymph # Stokes # Seg Neutrophils % Lymphocytes % (Manual) Monocytes % (Manual) Seg Neutrophils # INR APTT Heparin Anti-Xa Level 0.22 L POC Sodium POC Potassium Sodium Potassium Chloride Carbon Dioxide POC BUN BUN Creatinine Glucose POC Glucose 223 H 308 H Hemoglobin A1c Calcium AST ALT Total Protein Albumin Crossmatch 05/13/17 05/13/17 05/13/17 04:21 07:24 11:46 WBC RBC Hgb POC Hgb Hct POC Hct RDW Lymph % (Auto) Stokes % (Auto) Lymph # Stokes # Seg Neutrophils % Lymphocytes % (Manual) Monocytes % (Manual) Seg Neutrophils # INR APTT Heparin Anti-Xa Level 0.23 L POC Sodium POC Potassium Sodium Potassium Chloride Carbon Dioxide POC BUN BUN Creatinine Glucose POC Glucose 112 H 206 H Hemoglobin A1c Calcium AST ALT Total Protein Albumin Crossmatch 05/13/17 05/13/17 05/13/17 11:57 16:42 21:44 WBC RBC Hgb POC Hgb Hct POC Hct RDW Lymph % (Auto) Stokes % (Auto) Lymph # Stokes # Seg Neutrophils % Lymphocytes % (Manual) Monocytes % (Manual) Seg Neutrophils # INR APTT Heparin Anti-Xa Level 0.21 L POC Sodium POC Potassium Sodium Potassium Chloride Carbon Dioxide POC BUN BUN Creatinine Glucose POC Glucose 217 H 245 H Hemoglobin A1c Calcium AST ALT Total Protein Albumin Crossmatch 05/14/17 05/14/17 05/14/17 07:13 16:03 21:01 WBC RBC Hgb 10.9 L POC Hgb Hct 33.1 L POC Hct RDW Lymph % (Auto) Stokes % (Auto) Lymph # Stokes # Seg Neutrophils % Lymphocytes % (Manual) Monocytes % (Manual) Seg Neutrophils # INR APTT Heparin Anti-Xa Level POC Sodium POC Potassium Sodium Potassium Chloride Carbon Dioxide POC BUN BUN Creatinine Glucose POC Glucose 144 H 262 H Hemoglobin A1c Calcium AST ALT Total Protein Albumin Crossmatch 05/15/17 05/15/17 05/15/17 07:39 11:31 16:24 WBC RBC Hgb POC Hgb Hct POC Hct RDW Lymph % (Auto) Stokes % (Auto) Lymph # Stokes # Seg Neutrophils % Lymphocytes % (Manual) Monocytes % (Manual) Seg Neutrophils # INR APTT Heparin Anti-Xa Level POC Sodium POC Potassium Sodium Potassium Chloride Carbon Dioxide POC BUN BUN Creatinine Glucose POC Glucose 246 H 297 H 319 H Hemoglobin A1c Calcium AST ALT Total Protein Albumin Crossmatch 05/15/17 05/16/17 05/16/17 20:55 07:39 09:03 WBC RBC Hgb 8.4 L POC Hgb Hct 25.9 L D POC Hct RDW Lymph % (Auto) Stokes % (Auto) Lymph # Stokes # Seg Neutrophils % Lymphocytes % (Manual) Monocytes % (Manual) Seg Neutrophils # INR APTT Heparin Anti-Xa Level POC Sodium POC Potassium Sodium Potassium Chloride Carbon Dioxide POC BUN BUN Creatinine Glucose POC Glucose 344 H 110 H Hemoglobin A1c Calcium AST ALT Total Protein Albumin Crossmatch 05/16/17 05/16/17 05/16/17 11:51 16:48 23:09 WBC RBC Hgb POC Hgb Hct POC Hct RDW Lymph % (Auto) Stokes % (Auto) Lymph # Stokes # Seg Neutrophils % Lymphocytes % (Manual) Monocytes % (Manual) Seg Neutrophils # INR APTT Heparin Anti-Xa Level POC Sodium POC Potassium Sodium Potassium Chloride Carbon Dioxide POC BUN BUN Creatinine Glucose POC Glucose 119 H 188 H 219 H Hemoglobin A1c Calcium AST ALT Total Protein Albumin Crossmatch 05/17/17 05/17/17 05/17/17 04:39 04:39 07:34 WBC 18.6 H RBC 2.64 L Hgb 7.6 L POC Hgb Hct 23.3 L POC Hct RDW Lymph % (Auto) 7.2 L Stokes % (Auto) 13.3 H Lymph # Stokes # 2.5 H Seg Neutrophils % 79.2 H Lymphocytes % (Manual) Monocytes % (Manual) Seg Neutrophils # 14.8 H INR APTT Heparin Anti-Xa Level POC Sodium POC Potassium Sodium 133 L Potassium Chloride 95.5 L Carbon Dioxide POC BUN BUN 26 H Creatinine 1.6 H D Glucose 183 H POC Glucose 144 H Hemoglobin A1c Calcium 8.2 L AST 154 H ALT 79 H Total Protein Albumin 2.6 L Crossmatch 05/17/17 05/17/17 05/17/17 09:17 16:23 22:37 WBC RBC Hgb 8.3 L POC Hgb Hct 24.8 L POC Hct RDW Lymph % (Auto) Stokes % (Auto) Lymph # Stokes # Seg Neutrophils % Lymphocytes % (Manual) Monocytes % (Manual) Seg Neutrophils # INR APTT Heparin Anti-Xa Level POC Sodium POC Potassium Sodium Potassium Chloride Carbon Dioxide POC BUN BUN Creatinine Glucose POC Glucose 145 H 207 H Hemoglobin A1c Calcium AST ALT Total Protein Albumin Crossmatch 05/18/17 05/18/17 05/18/17 04:23 04:23 07:37 WBC 19.8 H RBC 2.73 L Hgb 7.9 L POC Hgb Hct 24.2 L POC Hct RDW Lymph % (Auto) 6.1 L Stokes % (Auto) 13.8 H Lymph # Stokes # 2.7 H Seg Neutrophils % 79.8 H Lymphocytes % (Manual) Monocytes % (Manual) Seg Neutrophils # 15.8 H INR APTT Heparin Anti-Xa Level POC Sodium POC Potassium Sodium 133 L Potassium Chloride 93.3 L Carbon Dioxide POC BUN BUN 26 H Creatinine Glucose 145 H POC Glucose 144 H Hemoglobin A1c Calcium AST 189 H ALT 101 H Total Protein Albumin 2.7 L Crossmatch 05/18/17 11:24 WBC RBC Hgb POC Hgb Hct POC Hct RDW Lymph % (Auto) Stokes % (Auto) Lymph # Stokes # Seg Neutrophils % Lymphocytes % (Manual) Monocytes % (Manual) Seg Neutrophils # INR APTT Heparin Anti-Xa Level POC Sodium POC Potassium Sodium Potassium Chloride Carbon Dioxide POC BUN BUN Creatinine Glucose POC Glucose 142 H Hemoglobin A1c Calcium AST ALT Total Protein Albumin Crossmatch
[2017-05-18] MEDS: LEVEMIR SUB-Q SCH (22:20)
--- NOTE | 2017-05-18 22:48 | Progress Note ---
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 Otherwise, conservative cardiac management. Continue plavix and moderate intensity statins Add aspirin if no contraindication Subjective Date of service: 05/19/17 Principal diagnosis: PAD, T2DM Interval history: No acute events. Resting comfortably. No chest pain or SOB. Objective Vital Signs Temp Pulse Pulse Resp BP BP 05/18/17 10:00 92 H 96 H 05/18/17 09:56 86 120/54 05/18/17 09:55 86 120/54 05/18/17 08:13 99.9 F H 86 18 120/54 - Physical Examination General: No Apparent Distress HEENT: Positive: PERRL Neck: Positive: trachea midline Neuro: Positive: Grossly Intact Abdomen: Positive: Soft Extremities: Present: Ulceration Noted - Labs and Meds Cardiac Enzymes 05/18/17 Range/Units 04:23 AST 189 H (5-40) units/L CBC 05/18/17 Range/Units 04:23 WBC 19.8 H (4.5-11.0) K/mm3 RBC 2.73 L (3.65-5.03) M/mm3 Hgb 7.9 L (11.8-15.2) gm/dl Hct 24.2 L (35.5-45.6) % Plt Count 312 (140-440) K/mm3 Lymph # 1.2 (1.2-5.4) K/mm3 Jackson # 2.7 H (0.0-0.8) K/mm3 Eos # 0.0 (0.0-0.4) K/mm3 Baso # 0.0 (0.0-0.1) K/mm3 Comprehensive Metabolic Panel 05/18/17 Range/Units 04:23 Sodium 133 L (137-145) mmol/L Potassium 4.7 (3.6-5.0) mmol/L Chloride 93.3 L (98-107) mmol/L Carbon Dioxide 24 (22-30) mmol/L BUN 26 H (9-20) mg/dL Creatinine 1.4 (0.8-1.5) mg/dL Glucose 145 H (75-100) mg/dL Calcium 8.6 (8.4-10.2) mg/dL AST 189 H (5-40) units/L ALT 101 H (7-56) units/L Alkaline Phosphatase 70 (35-129) units/L Total Protein 6.8 (6.3-8.2) g/dL Albumin 2.7 L (3.9-5) g/dL
[2017-05-19] MEDS: HEPARIN/ 0.45% NACL-25,000 UNIT/500 ML 25,000 UNIT/500 ML BAG IV SCH ×3 (05:26→12:55)
[2017-05-19] MEDS: SENOKOT PO SCH ×3 (06:31→22:45)
[2017-05-19] MEDS: NOVOLOG SUB-Q SCH ×4 (08:35→22:49)
[2017-05-19] MEDS: COLACE PO SCH ×2 (09:59→22:45)
[2017-05-19] MEDS: PEPCID PO SCH (09:59)
[2017-05-19] MEDS: PLAVIX PO SCH (10:00)
[2017-05-19] MEDS: FOLBEE PLUS CZ PO SCH (10:00)
[2017-05-19] MEDS: LYRICA PO SCH ×2 (10:00)
[2017-05-19] MEDS: ZESTRIL PO SCH (10:04)
[2017-05-19] MEDS: TOPROL XL PO SCH (10:05)
--- NOTE | 2017-05-19 11:52 | Progress Note ---
Assessment and Plan Patent femoral-popliteal bypass. Status post wound VAC placement in the groin. Status post wound VAC placement in the foot. Elevated white count yesterday. Although patient is afebrile. If there is any infectious processes it appears to be under control right now. Plan: we'll keep other incisions open to air. Await ID input. Continue wound VAC. Repeat CBC in the a.m. Subjective Date of service: 05/19/17 Principal diagnosis: PAD, T2DM Interval history: No complaints today. Objective - Exam Narrative Exam: Palpable pulse in the graft. Wound VAC applied to the groin. The edges appear healthy. Wound VAC applied to the foot. The foot is warm. - Constitutional Vitals: Vital Signs - 12hr 05/19/17 05/19/17 10:04 10:05 Pulse Rate 87 87 Blood Pressure 102/48 102/48 - Labs CBC & Chem 7: 05/18/17 04:23 05/18/17 04:23 Labs: Abnormal lab results 05/18/17 05/18/17 05/18/17 Range/Units 16:48 19:26 21:53 Heparin Anti-Xa Level 0.20 L (0.3-0.7) U.I./ml POC Glucose 226 H 275 H (70-105) 05/19/17 Range/Units 07:27 Heparin Anti-Xa Level (0.3-0.7) U.I./ml POC Glucose 164 H (70-105)
[2017-05-19 13:17] LABS: Basophils % (Auto) 0.2 % (0.0-1.8); Hematocrit 23.7 % (35.5-45.6); Hemoglobin 7.7 gm/dl (11.8-15.2); Mean Corpuscular HGB Conc 33 % (32-34); Mean Corpuscular Hemoglobin 29 pg (28-32); Mean Corpuscular Volume 88 fl (84-94); Platelet Count 294 K/mm3 (140-440); Red Blood Count 2.68 M/mm3 (3.65-5.03); Red Cell Distribution Width 13.5 % (13.2-15.2); White Blood Count 19.4 K/mm3 (4.5-11.0)
--- NOTE | 2017-05-19 13:23 | Progress Note ---
Assessment and Plan - PAD - s/p Left femoral artery angioplasy, left femoral artery endoarterectomy and left femoral artery to post tibia artery bypass on 05/07/17 - IDDM: controlled with Levamir and SSI - Diabetic Left gangrene : revascularization and local wound care - Diabetic peripheral Neuropathy: Continue with Gabapentin - Ischemic cardiomyopathy with EF 40-45% as at 2016 - Dysipidemia: On statin - Bleeding from the incision site on the left leg and hematoma on the left groin. Hold heparin drip for now. - Anemia. from blood loss DVT and GI PPx with heparing and pepcid Subjective Date of service: 05/19/17 Principal diagnosis: PAD, T2DM Interval history: C/o pain and swelling left leg. No more bleeding from the incision sites in the left leg. Slightly confused. Discussed with pt's nurse Pt with T2DM, PAD s/p Left femoral artery angioplasy, left femoral artery endoarterectomy and left femoral artery to post tibia artery bypass done with further intervention on 05/13/17. Objective - Constitutional Vitals: Vital Signs - 12hr 05/19/17 05/19/17 10:04 10:05 Pulse Rate 87 87 Blood Pressure 102/48 102/48 General appearance: Present: no acute distress, well-nourished - EENT Eyes: PERRL, EOM intact ENT: hearing intact - Neck Neck: supple, normal ROM - Respiratory Respiratory effort: normal Respiratory: bilateral: CTA - Breasts Breasts: normal - Cardiovascular Rhythm: regular Heart Sounds: Present: S1 & S2. Absent: gallop, rub Extremities: pulses intact, No edema, normal color, Full ROM Extremity abnormal: edema (left leg) - Gastrointestinal General gastrointestinal: Present: soft, non-tender, non-distended, normal bowel sounds - Genitourinary Male genitourinary: normal - Integumentary Integumentary: clear, warm, dry - Musculoskeletal Musculoskeletal: 1, strength equal bilaterally - Neurologic Neurologic: moves all extremities - Psychiatric Psychiatric: memory intact, appropriate mood/affect, intact judgment & insight - Labs CBC & Chem 7: 05/19/17 13:03 05/18/17 04:23 Labs: Abnormal lab results 05/18/17 05/18/17 05/18/17 Range/Units 16:48 19:26 21:53 WBC (4.5-11.0) K/mm3 RBC (3.65-5.03) M/mm3 Hgb (11.8-15.2) gm/dl Hct (35.5-45.6) % Lymph % (Auto) (13.4-35.0) % [place] % (Auto) (0.0-7.3) % Lymph # (1.2-5.4) K/mm3 [place] # (0.0-0.8) K/mm3 Seg Neutrophils % (40.0-70.0) % Seg Neutrophils # (1.8-7.7) K/mm3 Heparin Anti-Xa Level 0.20 L (0.3-0.7) U.I./ml POC Glucose 226 H 275 H (70-105) 05/19/17 05/19/17 05/19/17 Range/Units 07:27 12:38 13:03 WBC 19.4 H (4.5-11.0) K/mm3 RBC 2.68 L (3.65-5.03) M/mm3 Hgb 7.7 L (11.8-15.2) gm/dl Hct 23.7 L (35.5-45.6) % Lymph % (Auto) 5.7 L (13.4-35.0) % [place] % (Auto) 11.2 H (0.0-7.3) % Lymph # 1.1 L (1.2-5.4) K/mm3 [place] # 2.2 H (0.0-0.8) K/mm3 Seg Neutrophils % 82.9 H (40.0-70.0) % Seg Neutrophils # 16.1 H (1.8-7.7) K/mm3 Heparin Anti-Xa Level (0.3-0.7) U.I./ml POC Glucose 164 H 266 H (70-105)
--- NOTE | 2017-05-19 16:21 | Progress Note ---
Assessment and Plan Patient sleepy but arousable..No complaint of chest pain or shortness of breath. Resting On room air and O2 saturation 95% - Patient Problems (1) Acute deep vein thrombosis (DVT) of left peroneal vein Onset Date: 07/13/16 Current Visit: No Status: Acute Plan to address problem: Patient is on I/V Heparin. Monitor Heparin anti Xa level. Todays heparin Anti xa level .33. (2) CAD (coronary artery disease) Current Visit: Yes Status: Chronic Qualifiers: Coronary Disease-Associated Artery/Lesion type: [place] artery [place] vs. transplanted heart: N Associated angina: without angina Plan to address problem: Mangement as per cardiology. (3) IDDM (insulin dependent diabetes mellitus) Current Visit: Yes Status: Chronic Plan to address problem: Management as per primary care. (4) Peripheral neuropathy Current Visit: Yes Status: Chronic Qualifiers: Peripheral neuropathy type: polyneuropathy associated with underlying disease Qualified Code(s): G63 - Polyneuropathy in diseases classified elsewhere Plan to address problem: Management as per primary care. (5) Hypertension Onset Date: 07/13/16 Current Visit: No Status: Chronic Qualifiers: Hypertension type: essential hypertension Qualified Code(s): I10 - Essential (primary) hypertension Plan to address problem: Management as per primary care. Subjective Date of service: 05/19/17 Principal diagnosis: PAD, T2DM Interval history: Patient sleepy but arousable..No complaint of chest pain or shortness of breath.Resting On room air and O2 saturation 95% Objective Vital Signs - 12hr 05/19/17 05/19/17 10:04 10:05 Pulse Rate 87 87 Blood Pressure 102/48 102/48 Constitutional: no acute distress, alert Eyes: non-icteric ENT: oropharynx moist Neck: supple, no lymphadenopathy Ascultation: Bilateral: diminished breath sounds Cardiovascular: regular rate and rhythm Gastrointestinal: normoactive bowel sounds, soft, non-tender Integumentary: cellulitis (Left foot.) Extremities: no cyanosis, no edema, other (left foot in clean dressing and MIKALA bandage) Neurologic: normal mental status, non-focal exam, pupils equal and round, motor strength normal and Psychiatric: mood appropriate, affect normal CBC and BMP: 05/19/17 13:03 05/18/17 04:23 ABG, PT/INR, D-dimer: PT/INR, D-dimer PT 14.0 Sec. (12.2-14.9) 05/12/17 11:41 INR 1.09 (0.87-1.13) 05/12/17 11:41 Abnormal lab findings: Abnormal Labs 05/01/17 05/01/17 05/01/17 14:55 14:55 14:55 WBC 12.0 H RBC Hgb POC Hgb Hct POC Hct RDW 12.9 L Lymph % (Auto) 6.3 L [place] % (Auto) Lymph # 0.8 L [place] # 0.9 H Seg Neutrophils % 85.9 H Lymphocytes % (Manual) Monocytes % (Manual) Seg Neutrophils # 10.3 H INR 1.15 H APTT 37.7 H Heparin Anti-Xa Level POC Sodium POC Potassium Sodium Potassium Chloride 97.8 L Carbon Dioxide POC BUN BUN 23 H Creatinine Glucose 321 H POC Glucose Hemoglobin A1c Calcium AST ALT Total Protein Albumin Crossmatch 05/01/17 05/01/17 05/02/17 18:32 21:49 03:51 WBC RBC Hgb POC Hgb Hct POC Hct RDW 12.8 L Lymph % (Auto) [place] % (Auto) 12.4 H Lymph # [place] # 1.0 H Seg Neutrophils % Lymphocytes % (Manual) Monocytes % (Manual) Seg Neutrophils # INR APTT Heparin Anti-Xa Level POC Sodium POC Potassium Sodium Potassium Chloride Carbon Dioxide POC BUN BUN Creatinine Glucose POC Glucose 247 H 280 H Hemoglobin A1c Calcium AST ALT Total Protein Albumin Crossmatch 05/02/17 05/02/17 05/02/17 03:51 03:51 07:27 WBC RBC Hgb POC Hgb Hct POC Hct RDW Lymph % (Auto) [place] % (Auto) Lymph # [place] # Seg Neutrophils % Lymphocytes % (Manual) Monocytes % (Manual) Seg Neutrophils # INR APTT Heparin Anti-Xa Level 0.22 L POC Sodium POC Potassium Sodium Potassium Chloride Carbon Dioxide POC BUN BUN Creatinine Glucose 136 H POC Glucose 115 H Hemoglobin A1c Calcium AST ALT Total Protein Albumin Crossmatch 05/02/17 05/02/17 05/02/17 11:50 20:33 21:56 WBC RBC Hgb POC Hgb Hct POC Hct RDW Lymph % (Auto) [place] % (Auto) Lymph # [place] # Seg Neutrophils % Lymphocytes % (Manual) Monocytes % (Manual) Seg Neutrophils # INR APTT Heparin Anti-Xa Level 0.24 L POC Sodium POC Potassium Sodium Potassium Chloride Carbon Dioxide POC BUN BUN Creatinine Glucose POC Glucose 165 H 248 H Hemoglobin A1c Calcium AST ALT Total Protein Albumin Crossmatch 05/03/17 05/03/17 05/03/17 03:23 05:14 05:14 WBC RBC Hgb POC Hgb Hct POC Hct RDW 12.8 L Lymph % (Auto) [place] % (Auto) 14.1 H Lymph # [place] # 1.2 H Seg Neutrophils % Lymphocytes % (Manual) Monocytes % (Manual) Seg Neutrophils # INR APTT 101.1 H* Heparin Anti-Xa Level POC Sodium POC Potassium Sodium 136 L Potassium Chloride Carbon Dioxide POC BUN BUN Creatinine Glucose 116 H POC Glucose Hemoglobin A1c Calcium AST ALT Total Protein Albumin 3.0 L Crossmatch 05/03/17 05/03/17 05/03/17 05:14 11:48 11:51 WBC RBC Hgb POC Hgb Hct POC Hct RDW Lymph % (Auto) [place] % (Auto) Lymph # [place] # Seg Neutrophils % Lymphocytes % (Manual) Monocytes % (Manual) Seg Neutrophils # INR APTT Heparin Anti-Xa Level 0.26 L POC Sodium POC Potassium Sodium Potassium Chloride Carbon Dioxide POC BUN BUN Creatinine Glucose POC Glucose 128 H Hemoglobin A1c 10.2 H Calcium AST ALT Total Protein Albumin Crossmatch 05/03/17 05/03/17 05/04/17 18:50 22:17 04:02 WBC RBC Hgb POC Hgb Hct POC Hct RDW 12.9 L Lymph % (Auto) [place] % (Auto) Lymph # [place] # Seg Neutrophils % Lymphocytes % (Manual) 13.0 L Monocytes % (Manual) 9.0 H Seg Neutrophils # INR APTT Heparin Anti-Xa Level POC Sodium POC Potassium Sodium Potassium Chloride Carbon Dioxide POC BUN BUN Creatinine Glucose POC Glucose 314 H 312 H Hemoglobin A1c Calcium AST ALT Total Protein Albumin Crossmatch 05/04/17 05/04/17 05/04/17 04:02 07:49 11:54 WBC RBC Hgb POC Hgb Hct POC Hct RDW Lymph % (Auto) [place] % (Auto) Lymph # [place] # Seg Neutrophils % Lymphocytes % (Manual) Monocytes % (Manual) Seg Neutrophils # INR APTT Heparin Anti-Xa Level POC Sodium POC Potassium Sodium 134 L Potassium 5.2 H Chloride 96.2 L Carbon Dioxide POC BUN BUN 21 H Creatinine Glucose 251 H POC Glucose 177 H 186 H Hemoglobin A1c Calcium AST ALT Total Protein Albumin 3.0 L Crossmatch 05/04/17 05/04/17 05/05/17 17:46 22:51 05:09 WBC RBC Hgb POC Hgb Hct POC Hct RDW Lymph % (Auto) [place] % (Auto) Lymph # [place] # Seg Neutrophils % Lymphocytes % (Manual) Monocytes % (Manual) Seg Neutrophils # INR APTT Heparin Anti-Xa Level POC Sodium POC Potassium Sodium 135 L Potassium Chloride Carbon Dioxide POC BUN BUN Creatinine Glucose 179 H POC Glucose 244 H 265 H Hemoglobin A1c Calcium AST ALT Total Protein Albumin 2.9 L Crossmatch 05/05/17 05/05/17 05/05/17 05:09 07:39 11:24 WBC RBC Hgb POC Hgb Hct POC Hct RDW Lymph % (Auto) [place] % (Auto) Lymph # [place] # Seg Neutrophils % Lymphocytes % (Manual) Monocytes % (Manual) Seg Neutrophils # INR APTT Heparin Anti-Xa Level 0.15 L 0.29 L POC Sodium POC Potassium Sodium Potassium Chloride Carbon Dioxide POC BUN BUN Creatinine Glucose POC Glucose 153 H Hemoglobin A1c Calcium AST ALT Total Protein Albumin Crossmatch 05/05/17 05/05/17 05/05/17 11:53 16:33 22:05 WBC RBC Hgb POC Hgb Hct POC Hct RDW Lymph % (Auto) [place] % (Auto) Lymph # [place] # Seg Neutrophils % Lymphocytes % (Manual) Monocytes % (Manual) Seg Neutrophils # INR APTT Heparin Anti-Xa Level POC Sodium POC Potassium Sodium Potassium Chloride Carbon Dioxide POC BUN BUN Creatinine Glucose POC Glucose 171 H 317 H 313 H Hemoglobin A1c Calcium AST ALT Total Protein Albumin Crossmatch 05/06/17 05/06/17 05/06/17 07:32 11:47 16:28 WBC RBC Hgb POC Hgb Hct POC Hct RDW Lymph % (Auto) [place] % (Auto) Lymph # [place] # Seg Neutrophils % Lymphocytes % (Manual) Monocytes % (Manual) Seg Neutrophils # INR APTT Heparin Anti-Xa Level POC Sodium POC Potassium Sodium Potassium Chloride Carbon Dioxide POC BUN BUN Creatinine Glucose POC Glucose 176 H 210 H 283 H Hemoglobin A1c Calcium AST ALT Total Protein Albumin Crossmatch 05/06/17 05/07/17 05/07/17 21:33 03:56 07:11 WBC RBC Hgb POC Hgb Hct POC Hct RDW Lymph % (Auto) [place] % (Auto) Lymph # [place] # Seg Neutrophils % Lymphocytes % (Manual) Monocytes % (Manual) Seg Neutrophils # INR APTT Heparin Anti-Xa Level 0.10 L POC Sodium POC Potassium Sodium Potassium Chloride Carbon Dioxide POC BUN BUN Creatinine Glucose POC Glucose 264 H 276 H Hemoglobin A1c Calcium AST ALT Total Protein Albumin Crossmatch 05/07/17 05/07/17 05/07/17 11:48 11:48 16:11 WBC RBC Hgb POC Hgb Hct POC Hct RDW Lymph % (Auto) [place] % (Auto) Lymph # [place] # Seg Neutrophils % Lymphocytes % (Manual) Monocytes % (Manual) Seg Neutrophils # INR APTT Heparin Anti-Xa Level POC Sodium 137 L POC Potassium 5.5 H Sodium Potassium Chloride Carbon Dioxide POC BUN 31 H BUN Creatinine Glucose POC Glucose 128 H 158 H Hemoglobin A1c Calcium AST ALT Total Protein Albumin Crossmatch See Detail 05/07/17 05/07/17 05/07/17 16:44 20:28 22:47 WBC RBC Hgb POC Hgb 11.6 L Hct POC Hct 34 L RDW Lymph % (Auto) [place] % (Auto) Lymph # [place] # Seg Neutrophils % Lymphocytes % (Manual) Monocytes % (Manual) Seg Neutrophils # INR APTT Heparin Anti-Xa Level POC Sodium POC Potassium 5.0 H Sodium Potassium Chloride Carbon Dioxide POC BUN 27 H BUN Creatinine Glucose POC Glucose 170 H 203 H 253 H Hemoglobin A1c Calcium AST ALT Total Protein Albumin Crossmatch 05/08/17 05/08/17 05/08/17 04:23 07:57 12:01 WBC RBC Hgb POC Hgb Hct POC Hct RDW Lymph % (Auto) [place] % (Auto) Lymph # [place] # Seg Neutrophils % Lymphocytes % (Manual) Monocytes % (Manual) Seg Neutrophils # INR APTT Heparin Anti-Xa Level POC Sodium POC Potassium Sodium Potassium 5.3 H D Chloride Carbon Dioxide 19 L POC BUN BUN 29 H Creatinine Glucose 223 H POC Glucose 258 H 282 H Hemoglobin A1c Calcium 8.2 L AST ALT Total Protein Albumin Crossmatch 05/08/17 05/08/17 05/08/17 15:42 19:44 21:39 WBC RBC Hgb POC Hgb Hct POC Hct RDW Lymph % (Auto) [place] % (Auto) Lymph # [place] # Seg Neutrophils % Lymphocytes % (Manual) Monocytes % (Manual) Seg Neutrophils # INR APTT Heparin Anti-Xa Level 0.25 L POC Sodium POC Potassium Sodium Potassium Chloride Carbon Dioxide POC BUN BUN Creatinine Glucose POC Glucose 280 H 329 H Hemoglobin A1c Calcium AST ALT Total Protein Albumin Crossmatch 05/09/17 05/09/17 05/09/17 01:52 08:27 12:02 WBC RBC Hgb POC Hgb Hct POC Hct RDW Lymph % (Auto) [place] % (Auto) Lymph # [place] # Seg Neutrophils % Lymphocytes % (Manual) Monocytes % (Manual) Seg Neutrophils # INR APTT Heparin Anti-Xa Level 0.29 L POC Sodium POC Potassium Sodium Potassium Chloride Carbon Dioxide POC BUN BUN Creatinine Glucose POC Glucose 187 H 190 H Hemoglobin A1c Calcium AST ALT Total Protein Albumin Crossmatch 05/09/17 05/09/17 05/10/17 16:42 21:58 03:41 WBC 13.4 H RBC 3.61 L Hgb 10.8 L POC Hgb Hct 31.9 L POC Hct RDW 13.1 L Lymph % (Auto) 12.9 L [place] % (Auto) 12.2 H Lymph # [place] # 1.6 H Seg Neutrophils % 74.1 H Lymphocytes % (Manual) Monocytes % (Manual) Seg Neutrophils # 10.0 H INR APTT Heparin Anti-Xa Level POC Sodium POC Potassium Sodium Potassium Chloride Carbon Dioxide POC BUN BUN Creatinine Glucose POC Glucose 245 H 344 H Hemoglobin A1c Calcium AST ALT Total Protein Albumin Crossmatch 05/10/17 05/10/17 05/10/17 03:41 07:31 12:08 WBC RBC Hgb POC Hgb Hct POC Hct RDW Lymph % (Auto) [place] % (Auto) Lymph # [place] # Seg Neutrophils % Lymphocytes % (Manual) Monocytes % (Manual) Seg Neutrophils # INR APTT Heparin Anti-Xa Level POC Sodium POC Potassium Sodium 134 L Potassium Chloride Carbon Dioxide 21 L POC BUN BUN Creatinine Glucose 171 H POC Glucose 127 H 172 H Hemoglobin A1c Calcium 8.2 L AST 51 H ALT Total Protein Albumin 2.2 L Crossmatch 05/10/17 05/10/17 05/11/17 16:28 21:04 05:03 WBC 19.1 H RBC 3.64 L Hgb 10.7 L POC Hgb Hct 32.1 L POC Hct RDW Lymph % (Auto) 11.8 L [place] % (Auto) 10.8 H Lymph # [place] # 2.1 H Seg Neutrophils % 75.6 H Lymphocytes % (Manual) Monocytes % (Manual) Seg Neutrophils # 14.4 H INR APTT Heparin Anti-Xa Level POC Sodium POC Potassium Sodium Potassium Chloride Carbon Dioxide POC BUN BUN Creatinine Glucose POC Glucose 197 H 295 H Hemoglobin A1c Calcium AST ALT Total Protein Albumin Crossmatch 05/11/17 05/11/17 05/11/17 05:03 07:30 09:52 WBC RBC Hgb POC Hgb Hct POC Hct RDW Lymph % (Auto) [place] % (Auto) Lymph # [place] # Seg Neutrophils % Lymphocytes % (Manual) Monocytes % (Manual) Seg Neutrophils # INR APTT Heparin Anti-Xa Level POC Sodium POC Potassium Sodium Potassium 5.2 H Chloride Carbon Dioxide POC BUN BUN Creatinine Glucose 143 H POC Glucose 118 H 124 H Hemoglobin A1c Calcium AST 51 H ALT Total Protein Albumin 2.7 L Crossmatch 05/11/17 05/11/17 05/11/17 11:32 12:22 16:22 WBC RBC Hgb POC Hgb Hct POC Hct RDW Lymph % (Auto) [place] % (Auto) Lymph # [place] # Seg Neutrophils % Lymphocytes % (Manual) Monocytes % (Manual) Seg Neutrophils # INR APTT Heparin Anti-Xa Level < 0.10 L POC Sodium POC Potassium Sodium Potassium Chloride Carbon Dioxide POC BUN BUN Creatinine Glucose POC Glucose 119 H 197 H Hemoglobin A1c Calcium AST ALT Total Protein Albumin Crossmatch 05/11/17 05/12/17 05/12/17 22:06 05:35 05:35 WBC RBC 3.64 L Hgb 10.8 L POC Hgb Hct 32.5 L POC Hct RDW Lymph % (Auto) 8.0 L [place] % (Auto) 12.8 H Lymph # 0.8 L [place] # 1.3 H Seg Neutrophils % 77.9 H Lymphocytes % (Manual) Monocytes % (Manual) Seg Neutrophils # 8.2 H INR APTT Heparin Anti-Xa Level POC Sodium POC Potassium Sodium 136 L Potassium Chloride Carbon Dioxide POC BUN BUN Creatinine Glucose 210 H POC Glucose 296 H Hemoglobin A1c Calcium 8.3 L AST ALT Total Protein 6.2 L Albumin 2.6 L Crossmatch 05/12/17 05/12/17 05/12/17 07:26 11:30 11:41 WBC RBC Hgb 11.4 L POC Hgb Hct 35.1 L POC Hct RDW Lymph % (Auto) [place] % (Auto) Lymph # [place] # Seg Neutrophils % Lymphocytes % (Manual) Monocytes % (Manual) Seg Neutrophils # INR APTT Heparin Anti-Xa Level POC Sodium POC Potassium Sodium Potassium Chloride Carbon Dioxide POC BUN BUN Creatinine Glucose POC Glucose 171 H 126 H Hemoglobin A1c Calcium AST ALT Total Protein Albumin Crossmatch 05/12/17 05/12/17 05/12/17 16:23 21:14 21:50 WBC RBC Hgb POC Hgb Hct POC Hct RDW Lymph % (Auto) [place] % (Auto) Lymph # [place] # Seg Neutrophils % Lymphocytes % (Manual) Monocytes % (Manual) Seg Neutrophils # INR APTT Heparin Anti-Xa Level 0.22 L POC Sodium POC Potassium Sodium Potassium Chloride Carbon Dioxide POC BUN BUN Creatinine Glucose POC Glucose 223 H 308 H Hemoglobin A1c Calcium AST ALT Total Protein Albumin Crossmatch 05/13/17 05/13/17 05/13/17 04:21 07:24 11:46 WBC RBC Hgb POC Hgb Hct POC Hct RDW Lymph % (Auto) [place] % (Auto) Lymph # [place] # Seg Neutrophils % Lymphocytes % (Manual) Monocytes % (Manual) Seg Neutrophils # INR APTT Heparin Anti-Xa Level 0.23 L POC Sodium POC Potassium Sodium Potassium Chloride Carbon Dioxide POC BUN BUN Creatinine Glucose POC Glucose 112 H 206 H Hemoglobin A1c Calcium AST ALT Total Protein Albumin Crossmatch 05/13/17 05/13/17 05/13/17 11:57 16:42 21:44 WBC RBC Hgb POC Hgb Hct POC Hct RDW Lymph % (Auto) [place] % (Auto) Lymph # [place] # Seg Neutrophils % Lymphocytes % (Manual) Monocytes % (Manual) Seg Neutrophils # INR APTT Heparin Anti-Xa Level 0.21 L POC Sodium POC Potassium Sodium Potassium Chloride Carbon Dioxide POC BUN BUN Creatinine Glucose POC Glucose 217 H 245 H Hemoglobin A1c Calcium AST ALT Total Protein Albumin Crossmatch 05/14/17 05/14/17 05/14/17 07:13 16:03 21:01 WBC RBC Hgb 10.9 L POC Hgb Hct 33.1 L POC Hct RDW Lymph % (Auto) [place] % (Auto) Lymph # [place] # Seg Neutrophils % Lymphocytes % (Manual) Monocytes % (Manual) Seg Neutrophils # INR APTT Heparin Anti-Xa Level POC Sodium POC Potassium Sodium Potassium Chloride Carbon Dioxide POC BUN BUN Creatinine Glucose POC Glucose 144 H 262 H Hemoglobin A1c Calcium AST ALT Total Protein Albumin Crossmatch 05/15/17 05/15/17 05/15/17 07:39 11:31 16:24 WBC RBC Hgb POC Hgb Hct POC Hct RDW Lymph % (Auto) [place] % (Auto) Lymph # [place] # Seg Neutrophils % Lymphocytes % (Manual) Monocytes % (Manual) Seg Neutrophils # INR APTT Heparin Anti-Xa Level POC Sodium POC Potassium Sodium Potassium Chloride Carbon Dioxide POC BUN BUN Creatinine Glucose POC Glucose 246 H 297 H 319 H Hemoglobin A1c Calcium AST ALT Total Protein Albumin Crossmatch 05/15/17 05/16/17 05/16/17 20:55 07:39 09:03 WBC RBC Hgb 8.4 L POC Hgb Hct 25.9 L D POC Hct RDW Lymph % (Auto) [place] % (Auto) Lymph # [place] # Seg Neutrophils % Lymphocytes % (Manual) Monocytes % (Manual) Seg Neutrophils # INR APTT Heparin Anti-Xa Level POC Sodium POC Potassium Sodium Potassium Chloride Carbon Dioxide POC BUN BUN Creatinine Glucose POC Glucose 344 H 110 H Hemoglobin A1c Calcium AST ALT Total Protein Albumin Crossmatch 05/16/17 05/16/17 05/16/17 11:51 16:48 23:09 WBC RBC Hgb POC Hgb Hct POC Hct RDW Lymph % (Auto) [place] % (Auto) Lymph # [place] # Seg Neutrophils % Lymphocytes % (Manual) Monocytes % (Manual) Seg Neutrophils # INR APTT Heparin Anti-Xa Level POC Sodium POC Potassium Sodium Potassium Chloride Carbon Dioxide POC BUN BUN Creatinine Glucose POC Glucose 119 H 188 H 219 H Hemoglobin A1c Calcium AST ALT Total Protein Albumin Crossmatch 05/17/17 05/17/17 05/17/17 04:39 04:39 07:34 WBC 18.6 H RBC 2.64 L Hgb 7.6 L POC Hgb Hct 23.3 L POC Hct RDW Lymph % (Auto) 7.2 L [place] % (Auto) 13.3 H Lymph # [place] # 2.5 H Seg Neutrophils % 79.2 H Lymphocytes % (Manual) Monocytes % (Manual) Seg Neutrophils # 14.8 H INR APTT Heparin Anti-Xa Level POC Sodium POC Potassium Sodium 133 L Potassium Chloride 95.5 L Carbon Dioxide POC BUN BUN 26 H Creatinine 1.6 H D Glucose 183 H POC Glucose 144 H Hemoglobin A1c Calcium 8.2 L AST 154 H ALT 79 H Total Protein Albumin 2.6 L Crossmatch 05/17/17 05/17/17 05/17/17 09:17 16:23 22:37 WBC RBC Hgb 8.3 L POC Hgb Hct 24.8 L POC Hct RDW Lymph % (Auto) [place] % (Auto) Lymph # [place] # Seg Neutrophils % Lymphocytes % (Manual) Monocytes % (Manual) Seg Neutrophils # INR APTT Heparin Anti-Xa Level POC Sodium POC Potassium Sodium Potassium Chloride Carbon Dioxide POC BUN BUN Creatinine Glucose POC Glucose 145 H 207 H Hemoglobin A1c Calcium AST ALT Total Protein Albumin Crossmatch 05/18/17 05/18/17 05/18/17 04:23 04:23 07:37 WBC 19.8 H RBC 2.73 L Hgb 7.9 L POC Hgb Hct 24.2 L POC Hct RDW Lymph % (Auto) 6.1 L [place] % (Auto) 13.8 H Lymph # [place] # 2.7 H Seg Neutrophils % 79.8 H Lymphocytes % (Manual) Monocytes % (Manual) Seg Neutrophils # 15.8 H INR APTT Heparin Anti-Xa Level POC Sodium POC Potassium Sodium 133 L Potassium Chloride 93.3 L Carbon Dioxide POC BUN BUN 26 H Creatinine Glucose 145 H POC Glucose 144 H Hemoglobin A1c Calcium AST 189 H ALT 101 H Total Protein Albumin 2.7 L Crossmatch 05/18/17 05/18/17 05/18/17 11:24 16:48 19:26 WBC RBC Hgb POC Hgb Hct POC Hct RDW Lymph % (Auto) [place] % (Auto) Lymph # [place] # Seg Neutrophils % Lymphocytes % (Manual) Monocytes % (Manual) Seg Neutrophils # INR APTT Heparin Anti-Xa Level 0.20 L POC Sodium POC Potassium Sodium Potassium Chloride Carbon Dioxide POC BUN BUN Creatinine Glucose POC Glucose 142 H 226 H Hemoglobin A1c Calcium AST ALT Total Protein Albumin Crossmatch 05/18/17 05/19/17 05/19/17 21:53 07:27 12:38 WBC RBC Hgb POC Hgb Hct POC Hct RDW Lymph % (Auto) [place] % (Auto) Lymph # [place] # Seg Neutrophils % Lymphocytes % (Manual) Monocytes % (Manual) Seg Neutrophils # INR APTT Heparin Anti-Xa Level POC Sodium POC Potassium Sodium Potassium Chloride Carbon Dioxide POC BUN BUN Creatinine Glucose POC Glucose 275 H 164 H 266 H Hemoglobin A1c Calcium AST ALT Total Protein Albumin Crossmatch 05/19/17 13:03 WBC 19.4 H RBC 2.68 L Hgb 7.7 L POC Hgb Hct 23.7 L POC Hct RDW Lymph % (Auto) 5.7 L [place] % (Auto) 11.2 H Lymph # 1.1 L [place] # 2.2 H Seg Neutrophils % 82.9 H Lymphocytes % (Manual) Monocytes % (Manual) Seg Neutrophils # 16.1 H INR APTT Heparin Anti-Xa Level POC Sodium POC Potassium Sodium Potassium Chloride Carbon Dioxide POC BUN BUN Creatinine Glucose POC Glucose Hemoglobin A1c Calcium AST ALT Total Protein Albumin Crossmatch
--- NOTE | 2017-05-19 17:40 | Consultation ---
History of Present Illness - Reason for Consult Consult date: 05/19/17 Leukocytosis Requesting physician: SANDY ASTUDILLO - History of Present Illness Mr. Ma is a 76-year-old man with multiple medical problems, including significant peripheral arterial disease s/p left femoral-tibial arterial bypass. His post-op course has been complicated by a left peroneal vein DVT, now on heparin and a non-healing left foot wound. He was found to have a thrombosed arterial graft and therefore underwent a thrombectomy and left leg angioplasty on 05/14/17. Since the thrombectomy, he has had an slightly increasing leukocytosis. A duplex study of the left leg on 05/16/17 showed a patent graft, but revealed revealed a left groin hematoma. He remains on Heparin and Plavix. He has no complaints other than discomfort and swelling of his left leg. ID consultation is requested to evaluate increased WBC count and temperatue. Past History Past Medical History: diabetes, heart failure, hypertension, PVD, other (Kidney stones) Past Surgical History: CABG, total knee replacement, PTCA, Other (Shoulder reeplacement Rt 1974 Foot surgery Knee sugery Atherectom 10/1601/12/17) Social history: smoking (in the past till 20 yrs ago) Family history: hypertension Medications and Allergies Allergies Allergy/AdvReac Type Severity Reaction Status Date / Time bismuth subsalicylate Allergy Vomiting Verified 05/30/16 08:43 castor oil Allergy Vomiting Verified 05/22/16 09:22 oxycodone HCl [From Percocet] Allergy Dizziness Verified 05/22/16 09:24 meperidine HCl [From Demerol] AdvReac COMBATIVENE Verified 05/30/16 08:45 SS propoxyphene napsylate AdvReac Dizziness Verified 05/22/16 09:23 [From Darvocet-N] NARCOTICS AdvReac COMBATIVENE Uncoded 05/30/16 08:45 SS Home Medications Medication Instructions Recorded Confirmed Last Taken Type Dorzolamide/Timolol/Pf [Cosopt Pf 2 drop INTRAOCULA Q12HR MDD 2 gtts 05/22/1605/01/17 08:00 History Eye Drops] Empagliflozin [Jardiance] 25 mg PO DAILY MDD 25mg 05/22/16 05/01/17 04/30/17 08: 00 History B12/Levomefolate Calcium/B-6 1 tab PO DAILY #30 tablet 08/26/16 05/01/17 08:00 Rx [Foltx Tablet] Clopidogrel [Plavix] 75 mg PO QDAY #30 tablet 08/26/16 05/01/17 05/01/17 08:00 Rx Insulin Glargine [Lantus VIAL] 25 units SUB-Q QHS #10 units 08/26/16 05/01/17 23:00 Rx Lisinopril [Zestril TAB] 40 mg PO QDAY #30 tablet 08/26/16 05/01/17 04/30/17 12: 00 Rx 40mg Metoprolol Xl [Metoprolol 50 mg PO QDAY 30 Days 08/26/16 05/01/17 04/30/17 08: 00 Rx SUCCINATE ER TAB] Nitroglycerin [place] [Nitromist] 0.4 mg INHALATION PRN PRN #30 08/26/16 05/01/17 05/01/16 16:00 Rx bottle 0.4mg Pregabalin [Lyrica] 100 mg PO DAILY #60 capsule 08/26/16 05/01/17 05/01/17 08: 00 Rx 100mg Dabigatran [Pradaxa] 75 mg PO BID MDD 75mg 01/24/17 05/01/17 05/01/17 08:00 History Acetaminophen [Acetaminophen TAB] 650 mg PO Q4H PRN #30 tablet 02/02/1704/30/17 23:00 Rx 650mg Active Meds: Active Medications Acetaminophen (Tylenol) 650 mg PO Q4H PRN PRN Reason: Pain MILD(1-3)/Fever >100.5/[place] Last Admin: 05/09/17 22:15 Dose: 650 mg Acetaminophen/Hydrocodone Bitart ([place]ita 5/325) 2 each PO Q6H PRN PRN Reason: Pain, Moderate (4-6) Atorvastatin Calcium (Lipitor) 40 mg PO QHS [facility] Last Admin: 05/18/17 21:51 Dose: 40 mg Bisacodyl (Dulcolax) 10 mg [place] QDAY PRN PRN Reason: Constipation unrelieved by MOM Clopidogrel Bisulfate (Plavix) 75 mg PO QDAY [facility] Last Admin: 05/19/17 10:00 Dose: 75 mg Dextrose (D50w (25gm)) 50 ml IV PRN PRN PRN Reason: Hypoglycemia Diphenhydramine HCl (Benadryl) 25 mg IV Q4H PRN PRN Reason: Itching Last Admin: 05/08/17 02:30 Dose: 25 mg Docusate Sodium (Colace) 100 mg PO BID [facility] Last Admin: 05/19/17 09:59 Dose: 100 mg Famotidine (Pepcid) 20 mg PO QDAY [facility] Last Admin: 05/19/17 09:59 Dose: 20 mg Heparin Sodium/Sodium Chloride (Heparin/ 0.45% Nacl-25,000 Unit/500 Ml) 25,000 unit in 500 mls @ 30 mls/hr IV TITR MARQUEZ; 1,500 UNITS/HR PRN Reason: Protocol Last Admin: 05/19/17 12:55 Dose: 1,900 units/hr, 38 mls/hr Insulin Aspart (Novolog) 0 units SUB-Q ACHS [facility] PRN Reason: Protocol Last Admin: 05/19/17 12:45 Dose: 4 units Insulin Detemir (Levemir) 40 units SUB-Q QHS [facility] Last Admin: 05/18/17 22:20 Dose: 40 units Lisinopril (Zestril) 40 mg PO QDAY [facility] Last Admin: 05/19/17 10:04 Dose: Not Given Metoprolol Succinate (Toprol Xl) 50 mg PO QDAY [facility] Last Admin: 05/19/17 10:05 Dose: Not Given Morphine Sulfate (Morphine) 4 mg IV Q3H PRN PRN Reason: Pain , Severe (7-10) Last Admin: 05/17/17 23:57 Dose: 4 mg Naloxone HCl (Narcan 0.4 Mg/1 Ml) 0.1 mg IV Q2MIN PRN PRN Reason: Res Rate </= 8 or 02 SAT < 92% Nitroglycerin (Nitromist) 1 spray TL PRN PRN PRN Reason: Chest Pain Ondansetron HCl (Zofran) 4 mg IV Q8H PRN PRN Reason: Nausea Polyethylene Glycol (Miralax 3350) 17 gm PO QDAY PRN PRN Reason: Constipation Last Admin: 05/18/17 09:56 Dose: 17 gm Pregabalin (Lyrica) 75 mg PO DAILY [facility] Last Admin: 05/19/17 10:00 Dose: 75 mg Pregabalin (Lyrica) 25 mg PO DAILY [facility] Last Admin: 05/19/17 10:00 Dose: 25 mg Senna (Senokot) 8.6 mg PO Q12HR [facility] Last Admin: 05/19/17 10:00 Dose: 8.6 mg Temazepam (Restoril) 15 mg PO QHS PRN PRN Reason: Sleep Last Admin: 05/02/17 03:31 Dose: 15 mg Vitamin B Complex/Folic Acid (F[place]bee Plus Cz) 1 each PO QDAY [facility] Last Admin: 05/19/17 10:00 Dose: 1 each Review of Systems All systems: negative Constitutional: no fever Ears, nose, mouth and throat: no sore throat, no headache Cardiovascular: no chest pain, no palpitations Respiratory: no cough, no hemoptysis Gastrointestinal: no abdominal pain, no nausea, no vomiting, no diarrhea Genitourinary Male: no dysuria Musculoskeletal: shooting leg pain, leg numbness/tingling, limitation of motion Integumentary: no rash, no pruritis Physical Examination - Constitutional Vitals: Vital Signs Temp Pulse Resp BP Pulse Ox 98.4 F 87 18 102/48 100 05/18/17 22:00 05/19/17 10:05 05/18/17 22:00 05/19/17 10:05 05/18/17 22:00 Temperature -Last 24 Hours Temperature 98.4 F General appearance: Present: no acute distress, well-nourished - Respiratory Respiratory: bilateral: CTA, negative: rales, rhonchi - Cardiovascular Rhythm: regular Heart Sounds: Present: S1 & S2 - Extremities Extremity abnormal: edema, cyanosis, erythema, pulses diminished, other ( discoloration and evidence of bleeding from stapled incisions along left leg, decreased sensation of left leg distally) - Abdominal General gastrointestinal: Present: soft, non-distended - Integumentary Integumentary: Present: clear. Absent: rash - Psychiatric Psychiatric: appropriate mood/affect - Neurologic Neurologic: no focal deficits Results - Labs CBC & Chem 7: 05/19/17 13:03 05/18/17 04:23 Labs: Abnormal lab results 05/18/17 05/18/17 05/19/17 Range/Units 19:26 21:53 07:27 WBC (4.5-11.0) K/mm3 RBC (3.65-5.03) M/mm3 Hgb (11.8-15.2) gm/dl Hct (35.5-45.6) % Lymph % (Auto) (13.4-35.0) % [place] % (Auto) (0.0-7.3) % Lymph # (1.2-5.4) K/mm3 [place] # (0.0-0.8) K/mm3 Seg Neutrophils % (40.0-70.0) % Seg Neutrophils # (1.8-7.7) K/mm3 Heparin Anti-Xa Level 0.20 L (0.3-0.7) U.I./ml POC Glucose 275 H 164 H (70-105) 05/19/17 05/19/17 05/19/17 Range/Units 12:38 13:03 16:25 WBC 19.4 H (4.5-11.0) K/mm3 RBC 2.68 L (3.65-5.03) M/mm3 Hgb 7.7 L (11.8-15.2) gm/dl Hct 23.7 L (35.5-45.6) % Lymph % (Auto) 5.7 L (13.4-35.0) % [place] % (Auto) 11.2 H (0.0-7.3) % Lymph # 1.1 L (1.2-5.4) K/mm3 [place] # 2.2 H (0.0-0.8) K/mm3 Seg Neutrophils % 82.9 H (40.0-70.0) % Seg Neutrophils # 16.1 H (1.8-7.7) K/mm3 Heparin Anti-Xa Level (0.3-0.7) U.I./ml POC Glucose 266 H 253 H (70-105) - Imaging and Cardiology Chest x-ray: report reviewed (no acute findings, evidence of prior CABG) Assessment and Plan - Patient Problems (1) Leukocytosis, unspecified Current Visit: Yes Status: Acute Qualifiers: Leukocytosis type: L Plan to address problem: 1. DVT and hematoma of left leg, also recent surgery are all sufficient to result in an inflammatory response evident by increased WBC count. 2. Repeat CT imaging may be required to rule out abscess, but will continue to monitor clinically for now. 3. Will obtain blood cultures. (2) Hematoma Current Visit: Yes Status: Acute (3) Acute deep vein thrombosis (DVT) of left peroneal vein Onset Date: 07/13/16 Current Visit: No Status: Acute
[2017-05-19] MEDS: LEVEMIR SUB-Q SCH (22:48)
--- NOTE | 2017-05-19 23:56 | Progress Note ---
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 Otherwise, conservative cardiac management. Continue plavix and moderate intensity statins No ASA due to allergy Subjective Date of service: 05/20/17 Principal diagnosis: PAD, T2DM Interval history: No acute events. Resting comfortably. No chest pain or SOB. Objective Vital Signs Temp Pulse Pulse Resp BP BP Pulse Ox 05/19/17 22:00 99.4 F 88 18 102/48 100 05/19/17 10:05 87 102/48 05/19/17 10:04 87 102/48 05/19/17 10:00 99.9 F H 85 87 18 102/48 95 - Physical Examination General: No Apparent Distress HEENT: Positive: PERRL Neck: Positive: trachea midline Neuro: Positive: Grossly Intact Abdomen: Positive: Soft Extremities: Present: Ulceration Noted - Labs and Meds CBC 05/19/17 Range/Units 13:03 WBC 19.4 H (4.5-11.0) K/mm3 RBC 2.68 L (3.65-5.03) M/mm3 Hgb 7.7 L (11.8-15.2) gm/dl Hct 23.7 L (35.5-45.6) % Plt Count 294 (140-440) K/mm3 Lymph # 1.1 L (1.2-5.4) K/mm3 [place] # 2.2 H (0.0-0.8) K/mm3 Eos # 0.0 (0.0-0.4) K/mm3 Baso # 0.0 (0.0-0.1) K/mm3
[2017-05-20] MEDS: HEPARIN/ 0.45% NACL-25,000 UNIT/500 ML 25,000 UNIT/500 ML BAG IV SCH ×2 (01:52→09:34)
[2017-05-20] MEDS: MORPHINE IV PRN ×3 (02:38→12:52)
[2017-05-20 07:36] LABS: Hematocrit 23.7 % (35.5-45.6); Hemoglobin 7.8 gm/dl (11.8-15.2)
[2017-05-20] MEDS: NOVOLOG SUB-Q SCH ×4 (08:00→22:43)
[2017-05-20] MEDS: FOLBEE PLUS CZ PO SCH (09:22)
[2017-05-20] MEDS: PEPCID PO SCH (09:22)
[2017-05-20] MEDS: COLACE PO SCH ×2 (09:22→21:38)
[2017-05-20] MEDS: PLAVIX PO SCH (09:22)
[2017-05-20] MEDS: SENOKOT PO SCH ×2 (09:22→21:39)
[2017-05-20] MEDS: LYRICA PO SCH ×2 (09:23)
[2017-05-20] MEDS: ZESTRIL PO SCH (11:00)
[2017-05-20] MEDS: TOPROL XL PO SCH (11:00)
[2017-05-20 13:25] LABS: Basophils % (Auto) 0.5 % (0.0-1.8); Eosinophils % (Auto) 0.5 % (0.0-4.3); Hematocrit 24.8 % (35.5-45.6); Hemoglobin 7.9 gm/dl (11.8-15.2); Mean Corpuscular HGB Conc 32 % (32-34); Mean Corpuscular Hemoglobin 29 pg (28-32); Mean Corpuscular Volume 90 fl (84-94); Platelet Count 314 K/mm3 (140-440); Red Blood Count 2.77 M/mm3 (3.65-5.03); Red Cell Distribution Width 13.8 % (13.2-15.2); White Blood Count 17.6 K/mm3 (4.5-11.0)
--- NOTE | 2017-05-20 13:29 | Progress Note ---
Assessment and Plan Patent femoral-popliteal bypass. Status post wound VAC placement in the groin. Status post wound VAC placement in the foot. Elevated white count yesterday. Although patient is afebrile. If there is any infectious processes it appears to be under control right now. Plan: we'll keep other incisions open to air. Await ID input. Continue wound VAC. We'll switch heparin for Lovenox to avoid multiple blood draws. We'll check the CBC results.. Subjective Principal diagnosis: PAD, T2DM Interval history: She was complaining of too many blood draws. He says it hurts him a lot. Objective - Exam Narrative Exam: Palpable pulse in the graft. Wound VAC applied to the groin. The edges appear healthy. Wound VAC applied to the foot. The foot is warm. - Constitutional Vitals: Vital Signs - 12hr 05/20/17 10:00 Temperature 98.2 F Pulse Rate 88 Pulse Rate [ 89 From Monitor] Respiratory 20 Rate Blood Pressure 116/50 [Left Arm] - Labs CBC & Chem 7: 05/20/17 07:14 05/18/17 04:23 Labs: Abnormal lab results 05/19/17 05/19/17 05/20/17 Range/Units 16:25 22:19 07:14 WBC (4.5-11.0) K/mm3 RBC (3.65-5.03) M/mm3 Hgb 7.8 L (11.8-15.2) gm/dl Hct 23.7 L (35.5-45.6) % Lymph % (Auto) (13.4-35.0) % [place] % (Auto) (0.0-7.3) % [place] # (0.0-0.8) K/mm3 Seg Neutrophils % (40.0-70.0) % Seg Neutrophils # (1.8-7.7) K/mm3 POC Glucose 253 H 182 H (70-105) 05/20/17 Range/Units 07:14 WBC 17.6 H (4.5-11.0) K/mm3 RBC 2.77 L (3.65-5.03) M/mm3 Hgb 7.9 L (11.8-15.2) gm/dl Hct 24.8 L (35.5-45.6) % Lymph % (Auto) 8.2 L (13.4-35.0) % [place] % (Auto) 11.7 H (0.0-7.3) % [place] # 2.1 H (0.0-0.8) K/mm3 Seg Neutrophils % 79.1 H (40.0-70.0) % Seg Neutrophils # 14.0 H (1.8-7.7) K/mm3 POC Glucose (70-105)
--- NOTE | 2017-05-20 14:18 | Progress Note ---
Assessment and Plan Patient alert,awake.No complaint of chest pain or shortness of breath.Resting on 11/2 litres O2 and O2 saturation 100% - Patient Problems (1) Acute deep vein thrombosis (DVT) of left peroneal vein Onset Date: 07/13/16 Current Visit: No Status: Acute Plan to address problem: Patient is on I/V Heparin. Monitor Heparin anti Xa level. Todays heparin Anti xa level .49. (2) CAD (coronary artery disease) Current Visit: Yes Status: Chronic Qualifiers: Coronary Disease-Associated Artery/Lesion type: [place] artery [place] vs. transplanted heart: N Associated angina: without angina Plan to address problem: Mangement as per cardiology. (3) IDDM (insulin dependent diabetes mellitus) Current Visit: Yes Status: Chronic Plan to address problem: Management as per primary care. (4) Peripheral neuropathy Current Visit: Yes Status: Chronic Qualifiers: Peripheral neuropathy type: polyneuropathy associated with underlying disease Qualified Code(s): G63 - Polyneuropathy in diseases classified elsewhere Plan to address problem: Management as per primary care. (5) Hypertension Onset Date: 07/13/16 Current Visit: No Status: Chronic Qualifiers: Hypertension type: essential hypertension Qualified Code(s): I10 - Essential (primary) hypertension Plan to address problem: Management as per primary care. Subjective Date of service: 05/20/17 Principal diagnosis: PAD, T2DM Interval history: Patient alert,awake.No complaint of chest pain or shortness of breath.Resting on 11/2 litres O2 and O2 saturation 100% Objective Vital Signs - 12hr 05/20/17 10:00 Temperature 98.2 F Pulse Rate 88 Pulse Rate [ 89 From Monitor] Respiratory 20 Rate Blood Pressure 116/50 [Left Arm] Constitutional: no acute distress, alert Eyes: non-icteric ENT: oropharynx moist Neck: supple, no lymphadenopathy Ascultation: Bilateral: diminished breath sounds Cardiovascular: regular rate and rhythm Gastrointestinal: normoactive bowel sounds, soft, non-tender Integumentary: cellulitis (Left foot.) Extremities: no cyanosis, no edema, other (left foot in clean dressing and MIKALA bandage) Neurologic: normal mental status, non-focal exam, pupils equal and round, motor strength normal and Psychiatric: mood appropriate, affect normal CBC and BMP: 05/20/17 07:14 05/18/17 04:23 ABG, PT/INR, D-dimer: PT/INR, D-dimer PT 14.0 Sec. (12.2-14.9) 05/12/17 11:41 INR 1.09 (0.87-1.13) 05/12/17 11:41 Abnormal lab findings: Abnormal Labs 05/01/17 05/01/17 05/01/17 14:55 14:55 14:55 WBC 12.0 H RBC Hgb POC Hgb Hct POC Hct RDW 12.9 L Lymph % (Auto) 6.3 L Summers % (Auto) Lymph # 0.8 L Summers # 0.9 H Seg Neutrophils % 85.9 H Lymphocytes % (Manual) Monocytes % (Manual) Seg Neutrophils # 10.3 H INR 1.15 H APTT 37.7 H Heparin Anti-Xa Level POC Sodium POC Potassium Sodium Potassium Chloride 97.8 L Carbon Dioxide POC BUN BUN 23 H Creatinine Glucose 321 H POC Glucose Hemoglobin A1c Calcium AST ALT Total Protein Albumin Crossmatch 05/01/17 05/01/17 05/02/17 18:32 21:49 03:51 WBC RBC Hgb POC Hgb Hct POC Hct RDW 12.8 L Lymph % (Auto) Summers % (Auto) 12.4 H Lymph # Summers # 1.0 H Seg Neutrophils % Lymphocytes % (Manual) Monocytes % (Manual) Seg Neutrophils # INR APTT Heparin Anti-Xa Level POC Sodium POC Potassium Sodium Potassium Chloride Carbon Dioxide POC BUN BUN Creatinine Glucose POC Glucose 247 H 280 H Hemoglobin A1c Calcium AST ALT Total Protein Albumin Crossmatch 05/02/17 05/02/17 05/02/17 03:51 03:51 07:27 WBC RBC Hgb POC Hgb Hct POC Hct RDW Lymph % (Auto) Summers % (Auto) Lymph # Summers # Seg Neutrophils % Lymphocytes % (Manual) Monocytes % (Manual) Seg Neutrophils # INR APTT Heparin Anti-Xa Level 0.22 L POC Sodium POC Potassium Sodium Potassium Chloride Carbon Dioxide POC BUN BUN Creatinine Glucose 136 H POC Glucose 115 H Hemoglobin A1c Calcium AST ALT Total Protein Albumin Crossmatch 05/02/17 05/02/17 05/02/17 11:50 20:33 21:56 WBC RBC Hgb POC Hgb Hct POC Hct RDW Lymph % (Auto) Summers % (Auto) Lymph # Summers # Seg Neutrophils % Lymphocytes % (Manual) Monocytes % (Manual) Seg Neutrophils # INR APTT Heparin Anti-Xa Level 0.24 L POC Sodium POC Potassium Sodium Potassium Chloride Carbon Dioxide POC BUN BUN Creatinine Glucose POC Glucose 165 H 248 H Hemoglobin A1c Calcium AST ALT Total Protein Albumin Crossmatch 05/03/17 05/03/17 05/03/17 03:23 05:14 05:14 WBC RBC Hgb POC Hgb Hct POC Hct RDW 12.8 L Lymph % (Auto) Summers % (Auto) 14.1 H Lymph # Summers # 1.2 H Seg Neutrophils % Lymphocytes % (Manual) Monocytes % (Manual) Seg Neutrophils # INR APTT 101.1 H* Heparin Anti-Xa Level POC Sodium POC Potassium Sodium 136 L Potassium Chloride Carbon Dioxide POC BUN BUN Creatinine Glucose 116 H POC Glucose Hemoglobin A1c Calcium AST ALT Total Protein Albumin 3.0 L Crossmatch 05/03/17 05/03/17 05/03/17 05:14 11:48 11:51 WBC RBC Hgb POC Hgb Hct POC Hct RDW Lymph % (Auto) Summers % (Auto) Lymph # Summers # Seg Neutrophils % Lymphocytes % (Manual) Monocytes % (Manual) Seg Neutrophils # INR APTT Heparin Anti-Xa Level 0.26 L POC Sodium POC Potassium Sodium Potassium Chloride Carbon Dioxide POC BUN BUN Creatinine Glucose POC Glucose 128 H Hemoglobin A1c 10.2 H Calcium AST ALT Total Protein Albumin Crossmatch 05/03/17 05/03/17 05/04/17 18:50 22:17 04:02 WBC RBC Hgb POC Hgb Hct POC Hct RDW 12.9 L Lymph % (Auto) Summers % (Auto) Lymph # Summers # Seg Neutrophils % Lymphocytes % (Manual) 13.0 L Monocytes % (Manual) 9.0 H Seg Neutrophils # INR APTT Heparin Anti-Xa Level POC Sodium POC Potassium Sodium Potassium Chloride Carbon Dioxide POC BUN BUN Creatinine Glucose POC Glucose 314 H 312 H Hemoglobin A1c Calcium AST ALT Total Protein Albumin Crossmatch 05/04/17 05/04/17 05/04/17 04:02 07:49 11:54 WBC RBC Hgb POC Hgb Hct POC Hct RDW Lymph % (Auto) Summers % (Auto) Lymph # Summers # Seg Neutrophils % Lymphocytes % (Manual) Monocytes % (Manual) Seg Neutrophils # INR APTT Heparin Anti-Xa Level POC Sodium POC Potassium Sodium 134 L Potassium 5.2 H Chloride 96.2 L Carbon Dioxide POC BUN BUN 21 H Creatinine Glucose 251 H POC Glucose 177 H 186 H Hemoglobin A1c Calcium AST ALT Total Protein Albumin 3.0 L Crossmatch 05/04/17 05/04/17 05/05/17 17:46 22:51 05:09 WBC RBC Hgb POC Hgb Hct POC Hct RDW Lymph % (Auto) Summers % (Auto) Lymph # Summers # Seg Neutrophils % Lymphocytes % (Manual) Monocytes % (Manual) Seg Neutrophils # INR APTT Heparin Anti-Xa Level POC Sodium POC Potassium Sodium 135 L Potassium Chloride Carbon Dioxide POC BUN BUN Creatinine Glucose 179 H POC Glucose 244 H 265 H Hemoglobin A1c Calcium AST ALT Total Protein Albumin 2.9 L Crossmatch 05/05/17 05/05/17 05/05/17 05:09 07:39 11:24 WBC RBC Hgb POC Hgb Hct POC Hct RDW Lymph % (Auto) Summers % (Auto) Lymph # Summers # Seg Neutrophils % Lymphocytes % (Manual) Monocytes % (Manual) Seg Neutrophils # INR APTT Heparin Anti-Xa Level 0.15 L 0.29 L POC Sodium POC Potassium Sodium Potassium Chloride Carbon Dioxide POC BUN BUN Creatinine Glucose POC Glucose 153 H Hemoglobin A1c Calcium AST ALT Total Protein Albumin Crossmatch 05/05/17 05/05/17 05/05/17 11:53 16:33 22:05 WBC RBC Hgb POC Hgb Hct POC Hct RDW Lymph % (Auto) Summers % (Auto) Lymph # Summers # Seg Neutrophils % Lymphocytes % (Manual) Monocytes % (Manual) Seg Neutrophils # INR APTT Heparin Anti-Xa Level POC Sodium POC Potassium Sodium Potassium Chloride Carbon Dioxide POC BUN BUN Creatinine Glucose POC Glucose 171 H 317 H 313 H Hemoglobin A1c Calcium AST ALT Total Protein Albumin Crossmatch 05/06/17 05/06/17 05/06/17 07:32 11:47 16:28 WBC RBC Hgb POC Hgb Hct POC Hct RDW Lymph % (Auto) Summers % (Auto) Lymph # Summers # Seg Neutrophils % Lymphocytes % (Manual) Monocytes % (Manual) Seg Neutrophils # INR APTT Heparin Anti-Xa Level POC Sodium POC Potassium Sodium Potassium Chloride Carbon Dioxide POC BUN BUN Creatinine Glucose POC Glucose 176 H 210 H 283 H Hemoglobin A1c Calcium AST ALT Total Protein Albumin Crossmatch 05/06/17 05/07/17 05/07/17 21:33 03:56 07:11 WBC RBC Hgb POC Hgb Hct POC Hct RDW Lymph % (Auto) Summers % (Auto) Lymph # Summers # Seg Neutrophils % Lymphocytes % (Manual) Monocytes % (Manual) Seg Neutrophils # INR APTT Heparin Anti-Xa Level 0.10 L POC Sodium POC Potassium Sodium Potassium Chloride Carbon Dioxide POC BUN BUN Creatinine Glucose POC Glucose 264 H 276 H Hemoglobin A1c Calcium AST ALT Total Protein Albumin Crossmatch 05/07/17 05/07/17 05/07/17 11:48 11:48 16:11 WBC RBC Hgb POC Hgb Hct POC Hct RDW Lymph % (Auto) Summers % (Auto) Lymph # Summers # Seg Neutrophils % Lymphocytes % (Manual) Monocytes % (Manual) Seg Neutrophils # INR APTT Heparin Anti-Xa Level POC Sodium 137 L POC Potassium 5.5 H Sodium Potassium Chloride Carbon Dioxide POC BUN 31 H BUN Creatinine Glucose POC Glucose 128 H 158 H Hemoglobin A1c Calcium AST ALT Total Protein Albumin Crossmatch See Detail 05/07/17 05/07/17 05/07/17 16:44 20:28 22:47 WBC RBC Hgb POC Hgb 11.6 L Hct POC Hct 34 L RDW Lymph % (Auto) Summers % (Auto) Lymph # [place] # Seg Neutrophils % Lymphocytes % (Manual) Monocytes % (Manual) Seg Neutrophils # INR APTT Heparin Anti-Xa Level POC Sodium POC Potassium 5.0 H Sodium Potassium Chloride Carbon Dioxide POC BUN 27 H BUN Creatinine Glucose POC Glucose 170 H 203 H 253 H Hemoglobin A1c Calcium AST ALT Total Protein Albumin Crossmatch 05/08/17 05/08/17 05/08/17 04:23 07:57 12:01 WBC RBC Hgb POC Hgb Hct POC Hct RDW Lymph % (Auto) Summers % (Auto) Lymph # [place] # Seg Neutrophils % Lymphocytes % (Manual) Monocytes % (Manual) Seg Neutrophils # INR APTT Heparin Anti-Xa Level POC Sodium POC Potassium Sodium Potassium 5.3 H D Chloride Carbon Dioxide 19 L POC BUN BUN 29 H Creatinine Glucose 223 H POC Glucose 258 H 282 H Hemoglobin A1c Calcium 8.2 L AST ALT Total Protein Albumin Crossmatch 05/08/17 05/08/17 05/08/17 15:42 19:44 21:39 WBC RBC Hgb POC Hgb Hct POC Hct RDW Lymph % (Auto) Summers % (Auto) Lymph # [place] # Seg Neutrophils % Lymphocytes % (Manual) Monocytes % (Manual) Seg Neutrophils # INR APTT Heparin Anti-Xa Level 0.25 L POC Sodium POC Potassium Sodium Potassium Chloride Carbon Dioxide POC BUN BUN Creatinine Glucose POC Glucose 280 H 329 H Hemoglobin A1c Calcium AST ALT Total Protein Albumin Crossmatch 05/09/17 05/09/17 05/09/17 01:52 08:27 12:02 WBC RBC Hgb POC Hgb Hct POC Hct RDW Lymph % (Auto) Summers % (Auto) Lymph # [place]mers # Seg Neutrophils % Lymphocytes % (Manual) Monocytes % (Manual) Seg Neutrophils # INR APTT Heparin Anti-Xa Level 0.29 L POC Sodium POC Potassium Sodium Potassium Chloride Carbon Dioxide POC BUN BUN Creatinine Glucose POC Glucose 187 H 190 H Hemoglobin A1c Calcium AST ALT Total Protein Albumin Crossmatch 05/09/17 05/09/17 05/10/17 16:42 21:58 03:41 WBC 13.4 H RBC 3.61 L Hgb 10.8 L POC Hgb Hct 31.9 L POC Hct RDW 13.1 L Lymph % (Auto) 12.9 L Summers % (Auto) 12.2 H Lymph # Summers # 1.6 H Seg Neutrophils % 74.1 H Lymphocytes % (Manual) Monocytes % (Manual) Seg Neutrophils # 10.0 H INR APTT Heparin Anti-Xa Level POC Sodium POC Potassium Sodium Potassium Chloride Carbon Dioxide POC BUN BUN Creatinine Glucose POC Glucose 245 H 344 H Hemoglobin A1c Calcium AST ALT Total Protein Albumin Crossmatch 05/10/17 05/10/17 05/10/17 03:41 07:31 12:08 WBC RBC Hgb POC Hgb Hct POC Hct RDW Lymph % (Auto) Summers % (Auto) Lymph # Summers # Seg Neutrophils % Lymphocytes % (Manual) Monocytes % (Manual) Seg Neutrophils # INR APTT Heparin Anti-Xa Level POC Sodium POC Potassium Sodium 134 L Potassium Chloride Carbon Dioxide 21 L POC BUN BUN Creatinine Glucose 171 H POC Glucose 127 H 172 H Hemoglobin A1c Calcium 8.2 L AST 51 H ALT Total Protein Albumin 2.2 L Crossmatch 05/10/17 05/10/17 05/11/17 16:28 21:04 05:03 WBC 19.1 H RBC 3.64 L Hgb 10.7 L POC Hgb Hct 32.1 L POC Hct RDW Lymph % (Auto) 11.8 L Summers % (Auto) 10.8 H Lymph # Summers # 2.1 H Seg Neutrophils % 75.6 H Lymphocytes % (Manual) Monocytes % (Manual) Seg Neutrophils # 14.4 H INR APTT Heparin Anti-Xa Level POC Sodium POC Potassium Sodium Potassium Chloride Carbon Dioxide POC BUN BUN Creatinine Glucose POC Glucose 197 H 295 H Hemoglobin A1c Calcium AST ALT Total Protein Albumin Crossmatch 05/11/17 05/11/17 05/11/17 05:03 07:30 09:52 WBC RBC Hgb POC Hgb Hct POC Hct RDW Lymph % (Auto) Summers % (Auto) Lymph # [place] # Seg Neutrophils % Lymphocytes % (Manual) Monocytes % (Manual) Seg Neutrophils # INR APTT Heparin Anti-Xa Level POC Sodium POC Potassium Sodium Potassium 5.2 H Chloride Carbon Dioxide POC BUN BUN Creatinine Glucose 143 H POC Glucose 118 H 124 H Hemoglobin A1c Calcium AST 51 H ALT Total Protein Albumin 2.7 L Crossmatch 05/11/17 05/11/17 05/11/17 11:32 12:22 16:22 WBC RBC Hgb POC Hgb Hct POC Hct RDW Lymph % (Auto) Summers % (Auto) Lymph # [place] # Seg Neutrophils % Lymphocytes % (Manual) Monocytes % (Manual) Seg Neutrophils # INR APTT Heparin Anti-Xa Level < 0.10 L POC Sodium POC Potassium Sodium Potassium Chloride Carbon Dioxide POC BUN BUN Creatinine Glucose POC Glucose 119 H 197 H Hemoglobin A1c Calcium AST ALT Total Protein Albumin Crossmatch 05/11/17 05/12/17 05/12/17 22:06 05:35 05:35 WBC RBC 3.64 L Hgb 10.8 L POC Hgb Hct 32.5 L POC Hct RDW Lymph % (Auto) 8.0 L Summers % (Auto) 12.8 H Lymph # 0.8 L Summers # 1.3 H Seg Neutrophils % 77.9 H Lymphocytes % (Manual) Monocytes % (Manual) Seg Neutrophils # 8.2 H INR APTT Heparin Anti-Xa Level POC Sodium POC Potassium Sodium 136 L Potassium Chloride Carbon Dioxide POC BUN BUN Creatinine Glucose 210 H POC Glucose 296 H Hemoglobin A1c Calcium 8.3 L AST ALT Total Protein 6.2 L Albumin 2.6 L Crossmatch 05/12/17 05/12/17 05/12/17 07:26 11:30 11:41 WBC RBC Hgb 11.4 L POC Hgb Hct 35.1 L POC Hct RDW Lymph % (Auto) Summers % (Auto) Lymph # Summers # Seg Neutrophils % Lymphocytes % (Manual) Monocytes % (Manual) Seg Neutrophils # INR APTT Heparin Anti-Xa Level POC Sodium POC Potassium Sodium Potassium Chloride Carbon Dioxide POC BUN BUN Creatinine Glucose POC Glucose 171 H 126 H Hemoglobin A1c Calcium AST ALT Total Protein Albumin Crossmatch 05/12/17 05/12/17 05/12/17 16:23 21:14 21:50 WBC RBC Hgb POC Hgb Hct POC Hct RDW Lymph % (Auto) Summers % (Auto) Lymph # Summers # Seg Neutrophils % Lymphocytes % (Manual) Monocytes % (Manual) Seg Neutrophils # INR APTT Heparin Anti-Xa Level 0.22 L POC Sodium POC Potassium Sodium Potassium Chloride Carbon Dioxide POC BUN BUN Creatinine Glucose POC Glucose 223 H 308 H Hemoglobin A1c Calcium AST ALT Total Protein Albumin Crossmatch 05/13/17 05/13/17 05/13/17 04:21 07:24 11:46 WBC RBC Hgb POC Hgb Hct POC Hct RDW Lymph % (Auto) Summers % (Auto) Lymph # Summers # Seg Neutrophils % Lymphocytes % (Manual) Monocytes % (Manual) Seg Neutrophils # INR APTT Heparin Anti-Xa Level 0.23 L POC Sodium POC Potassium Sodium Potassium Chloride Carbon Dioxide POC BUN BUN Creatinine Glucose POC Glucose 112 H 206 H Hemoglobin A1c Calcium AST ALT Total Protein Albumin Crossmatch 05/13/17 05/13/17 05/13/17 11:57 16:42 21:44 WBC RBC Hgb POC Hgb Hct POC Hct RDW Lymph % (Auto) Summers % (Auto) Lymph # [place]mers # Seg Neutrophils % Lymphocytes % (Manual) Monocytes % (Manual) Seg Neutrophils # INR APTT Heparin Anti-Xa Level 0.21 L POC Sodium POC Potassium Sodium Potassium Chloride Carbon Dioxide POC BUN BUN Creatinine Glucose POC Glucose 217 H 245 H Hemoglobin A1c Calcium AST ALT Total Protein Albumin Crossmatch 05/14/17 05/14/17 05/14/17 07:13 16:03 21:01 WBC RBC Hgb 10.9 L POC Hgb Hct 33.1 L POC Hct RDW Lymph % (Auto) Summers % (Auto) Lymph # [place]mers # Seg Neutrophils % Lymphocytes % (Manual) Monocytes % (Manual) Seg Neutrophils # INR APTT Heparin Anti-Xa Level POC Sodium POC Potassium Sodium Potassium Chloride Carbon Dioxide POC BUN BUN Creatinine Glucose POC Glucose 144 H 262 H Hemoglobin A1c Calcium AST ALT Total Protein Albumin Crossmatch 05/15/17 05/15/17 05/15/17 07:39 11:31 16:24 WBC RBC Hgb POC Hgb Hct POC Hct RDW Lymph % (Auto) Summers % (Auto) Lymph # [place]mers # Seg Neutrophils % Lymphocytes % (Manual) Monocytes % (Manual) Seg Neutrophils # INR APTT Heparin Anti-Xa Level POC Sodium POC Potassium Sodium Potassium Chloride Carbon Dioxide POC BUN BUN Creatinine Glucose POC Glucose 246 H 297 H 319 H Hemoglobin A1c Calcium AST ALT Total Protein Albumin Crossmatch 05/15/17 05/16/17 05/16/17 20:55 07:39 09:03 WBC RBC Hgb 8.4 L POC Hgb Hct 25.9 L D POC Hct RDW Lymph % (Auto) Summers % (Auto) Lymph # [place]mers # Seg Neutrophils % Lymphocytes % (Manual) Monocytes % (Manual) Seg Neutrophils # INR APTT Heparin Anti-Xa Level POC Sodium POC Potassium Sodium Potassium Chloride Carbon Dioxide POC BUN BUN Creatinine Glucose POC Glucose 344 H 110 H Hemoglobin A1c Calcium AST ALT Total Protein Albumin Crossmatch 05/16/17 05/16/17 05/16/17 11:51 16:48 23:09 WBC RBC Hgb POC Hgb Hct POC Hct RDW Lymph % (Auto) Summers % (Auto) Lymph # [place]mers # Seg Neutrophils % Lymphocytes % (Manual) Monocytes % (Manual) Seg Neutrophils # INR APTT Heparin Anti-Xa Level POC Sodium POC Potassium Sodium Potassium Chloride Carbon Dioxide POC BUN BUN Creatinine Glucose POC Glucose 119 H 188 H 219 H Hemoglobin A1c Calcium AST ALT Total Protein Albumin Crossmatch 05/17/17 05/17/17 05/17/17 04:39 04:39 07:34 WBC 18.6 H RBC 2.64 L Hgb 7.6 L POC Hgb Hct 23.3 L POC Hct RDW Lymph % (Auto) 7.2 L Summers % (Auto) 13.3 H Lymph # Summers # 2.5 H Seg Neutrophils % 79.2 H Lymphocytes % (Manual) Monocytes % (Manual) Seg Neutrophils # 14.8 H INR APTT Heparin Anti-Xa Level POC Sodium POC Potassium Sodium 133 L Potassium Chloride 95.5 L Carbon Dioxide POC BUN BUN 26 H Creatinine 1.6 H D Glucose 183 H POC Glucose 144 H Hemoglobin A1c Calcium 8.2 L AST 154 H ALT 79 H Total Protein Albumin 2.6 L Crossmatch 05/17/17 05/17/17 05/17/17 09:17 16:23 22:37 WBC RBC Hgb 8.3 L POC Hgb Hct 24.8 L POC Hct RDW Lymph % (Auto) Summers % (Auto) Lymph # Summers # Seg Neutrophils % Lymphocytes % (Manual) Monocytes % (Manual) Seg Neutrophils # INR APTT Heparin Anti-Xa Level POC Sodium POC Potassium Sodium Potassium Chloride Carbon Dioxide POC BUN BUN Creatinine Glucose POC Glucose 145 H 207 H Hemoglobin A1c Calcium AST ALT Total Protein Albumin Crossmatch 05/18/17 05/18/17 05/18/17 04:23 04:23 07:37 WBC 19.8 H RBC 2.73 L Hgb 7.9 L POC Hgb Hct 24.2 L POC Hct RDW Lymph % (Auto) 6.1 L Summers % (Auto) 13.8 H Lymph # Summers # 2.7 H Seg Neutrophils % 79.8 H Lymphocytes % (Manual) Monocytes % (Manual) Seg Neutrophils # 15.8 H INR APTT Heparin Anti-Xa Level POC Sodium POC Potassium Sodium 133 L Potassium Chloride 93.3 L Carbon Dioxide POC BUN BUN 26 H Creatinine Glucose 145 H POC Glucose 144 H Hemoglobin A1c Calcium AST 189 H ALT 101 H Total Protein Albumin 2.7 L Crossmatch 05/18/17 05/18/17 05/18/17 11:24 16:48 19:26 WBC RBC Hgb POC Hgb Hct POC Hct RDW Lymph % (Auto) Summers % (Auto) Lymph # Summers # Seg Neutrophils % Lymphocytes % (Manual) Monocytes % (Manual) Seg Neutrophils # INR APTT Heparin Anti-Xa Level 0.20 L POC Sodium POC Potassium Sodium Potassium Chloride Carbon Dioxide POC BUN BUN Creatinine Glucose POC Glucose 142 H 226 H Hemoglobin A1c Calcium AST ALT Total Protein Albumin Crossmatch 05/18/17 05/19/17 05/19/17 21:53 07:27 12:38 WBC RBC Hgb POC Hgb Hct POC Hct RDW Lymph % (Auto) Summers % (Auto) Lymph # Summers # Seg Neutrophils % Lymphocytes % (Manual) Monocytes % (Manual) Seg Neutrophils # INR APTT Heparin Anti-Xa Level POC Sodium POC Potassium Sodium Potassium Chloride Carbon Dioxide POC BUN BUN Creatinine Glucose POC Glucose 275 H 164 H 266 H Hemoglobin A1c Calcium AST ALT Total Protein Albumin Crossmatch 05/19/17 05/19/17 05/19/17 13:03 16:25 22:19 WBC 19.4 H RBC 2.68 L Hgb 7.7 L POC Hgb Hct 23.7 L POC Hct RDW Lymph % (Auto) 5.7 L Summers % (Auto) 11.2 H Lymph # 1.1 L Summers # 2.2 H Seg Neutrophils % 82.9 H Lymphocytes % (Manual) Monocytes % (Manual) Seg Neutrophils # 16.1 H INR APTT Heparin Anti-Xa Level POC Sodium POC Potassium Sodium Potassium Chloride Carbon Dioxide POC BUN BUN Creatinine Glucose POC Glucose 253 H 182 H Hemoglobin A1c Calcium AST ALT Total Protein Albumin Crossmatch 05/20/17 05/20/17 07:14 07:14 WBC 17.6 H RBC 2.77 L Hgb 7.8 L 7.9 L POC Hgb Hct 23.7 L 24.8 L POC Hct RDW Lymph % (Auto) 8.2 L Summers % (Auto) 11.7 H Lymph # Summers # 2.1 H Seg Neutrophils % 79.1 H Lymphocytes % (Manual) Monocytes % (Manual) Seg Neutrophils # 14.0 H INR APTT Heparin Anti-Xa Level POC Sodium POC Potassium Sodium Potassium Chloride Carbon Dioxide POC BUN BUN Creatinine Glucose POC Glucose Hemoglobin A1c Calcium AST ALT Total Protein Albumin Crossmatch
[2017-05-20] MEDS: LOVENOX SUB-Q SCH (14:33)
--- NOTE | 2017-05-20 14:33 | Progress Note ---
Assessment and Plan - PAD - s/p Left femoral artery angioplasy, left femoral artery endoarterectomy and left femoral artery to post tibia artery bypass on 05/07/17. Still h as swelling of the same limb from hematoma. 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 - Diabetic peripheral Neuropathy: Continue with Gabapentin - Ischemic cardiomyopathy with EF 40-45% as at 2016 - Dysipidemia: On statin - Bleeding from the incision site on the left leg and hematoma on the left groin. resolved - Anemia: secondary to bleeding - resolving trend H/H DVT and GI PPx with heparing and pepcid Subjective Date of service: 05/20/17 Principal diagnosis: PAD, T2DM Interval history: C/o pain and swelling left leg. No more bleeding from the incision sites in the left leg. less confused Pt with T2DM, PAD s/p Left femoral artery angioplasy, left femoral artery endoarterectomy and left femoral artery to post tibia artery bypass done with further intervention on 05/13/17. Objective - Constitutional Vitals: Vital Signs - 12hr 05/20/17 10:00 Temperature 98.2 F Pulse Rate 88 Pulse Rate [ 89 From Monitor] Respiratory 20 Rate Blood Pressure 116/50 [Left Arm] General appearance: Present: no acute distress, well-nourished - EENT Eyes: PERRL, EOM intact - Neck Neck: supple, normal ROM - Respiratory Respiratory effort: normal Respiratory: bilateral: CTA - Cardiovascular Rhythm: regular Heart Sounds: Present: S1 & S2. Absent: gallop, rub Extremities: pulses intact, No edema, normal color, Full ROM - Gastrointestinal General gastrointestinal: Present: soft, non-tender, non-distended, normal bowel sounds - Integumentary Integumentary: clear, warm, dry - Musculoskeletal Musculoskeletal: 1, strength equal bilaterally - Neurologic Neurologic: moves all extremities - Psychiatric Psychiatric: memory intact, appropriate mood/affect, intact judgment & insight - Labs CBC & Chem 7: 05/20/17 07:14 05/18/17 04:23 Labs: Abnormal lab results 05/19/17 05/19/17 05/20/17 Range/Units 16:25 22:19 07:14 WBC (4.5-11.0) K/mm3 RBC (3.65-5.03) M/mm3 Hgb 7.8 L (11.8-15.2) gm/dl Hct 23.7 L (35.5-45.6) % Lymph % (Auto) (13.4-35.0) % Elbert % (Auto) (0.0-7.3) % Elbert # (0.0-0.8) K/mm3 Seg Neutrophils % (40.0-70.0) % Seg Neutrophils # (1.8-7.7) K/mm3 POC Glucose 253 H 182 H (70-105) // Range/Units 07:14 WBC 17.6 H (4.5-11.0) K/mm3 RBC 2.77 L (3.65-5.03) M/mm3 Hgb 7.9 L (11.8-15.2) gm/dl Hct 24.8 L (35.5-45.6) % Lymph % (Auto) 8.2 L (13.4-35.0) % Elbert % (Auto) 11.7 H (0.0-7.3) % Elbert # 2.1 H (0.0-0.8) K/mm3 Seg Neutrophils % 79.1 H (40.0-70.0) % Seg Neutrophils # 14.0 H (1.8-7.7) K/mm3 POC Glucose (70-105)
[2017-05-20] MEDS: LEVEMIR SUB-Q SCH (21:40)
[2017-05-21] MEDS: LOVENOX SUB-Q SCH ×2 (02:09→13:09)
[2017-05-21 05:02] LABS: Basophils % (Auto) 0.2 % (0.0-1.8); Eosinophils % (Auto) 0.7 % (0.0-4.3); Hematocrit 20.8 % (35.5-45.6); Hemoglobin 6.7 gm/dl (11.8-15.2); Mean Corpuscular HGB Conc 32 % (32-34); Mean Corpuscular Hemoglobin 29 pg (28-32); Mean Corpuscular Volume 89 fl (84-94); Platelet Count 305 K/mm3 (140-440); Red Blood Count 2.34 M/mm3 (3.65-5.03); Red Cell Distribution Width 13.4 % (13.2-15.2); White Blood Count 13.1 K/mm3 (4.5-11.0)
[2017-05-21 05:22] LABS: Alanine Aminotransferase 137 units/L (7-56); Albumin 2.2 g/dL (3.9-5); Albumin/Globulin Ratio 0.5 %; Alkaline Phosphatase 72 units/L (35-129); Anion Gap 17 mmol/L; BUN/Creatinine Ratio 22.22; Blood Urea Nitrogen 20 mg/dL (9-20); Calcium 7.9 mg/dL (8.4-10.2); Carbon Dioxide 24 mmol/L (22-30); Chloride 97.2 mmol/L (98-107); Glucose 115 mg/dL (75-100); Potassium 4.6 mmol/L (3.6-5.0); Sodium 134 mmol/L (137-145); Total Protein 6.3 g/dL (6.3-8.2)
[2017-05-21] MEDS: NOVOLOG SUB-Q SCH ×4 (08:46→23:05)
--- NOTE | 2017-05-21 08:57 | Progress Note ---
Assessment and Plan - PAD - s/p Left femoral artery angioplasy, left femoral artery endoarterectomy and left femoral artery to post tibia artery bypass on 05/07/17. Still has swelling of the same limb from hematoma. Though improving - IDDM: controlled with Levamir and SSI - Diabetic Left big toes gangrene : revascularization and local wound care. - Diabetic peripheral Neuropathy: Continue with Gabapentin - Ischemic cardiomyopathy with EF 40-45% as at 2016 - Dysipidemia: On statin - Bleeding from the incision site on the left leg and hematoma on the left groin. resolved -Anemia: secondary to bleeding - Will transfuse PRBC. trend H/H -Leukocytosis: Improving DVT and GI PPx with heparing and pepcid Subjective Date of service: 05/21/17 Principal diagnosis: PAD, T2DM Interval history: pain and swelling left leg improving. No more bleeding from the incision sites in the left leg. More alert and interactive Pt with T2DM, PAD s/p Left femoral artery angioplasy, left femoral artery endoarterectomy and left femoral artery to post tibia artery bypass done with further intervention on 05/13/17. Objective - Constitutional Vitals: Vital Signs - 12hr 05/20/17 05/21/17 05/21/17 22:00 01:00 06:00 Temperature 98.4 F 98.4 F Pulse Rate 87 Pulse Rate [ 96 H 96 H From Monitor] Respiratory 18 18 Rate Respiratory 18 Rate [Bilateral Plantar Foot] Respiratory 18 Rate [Left Foot ] Respiratory 18 Rate [Left Knee ] Blood Pressure 107/44 107/44 [Left Arm] O2 Sat by Pulse 100 100 Oximetry General appearance: Present: no acute distress, well-nourished - EENT Eyes: PERRL, EOM intact - Neck Neck: supple, normal ROM - Respiratory Respiratory effort: normal Respiratory: bilateral: CTA - Cardiovascular Rhythm: regular Heart Sounds: Present: S1 & S2. Absent: gallop, rub Extremities: Full ROM Extremity abnormal: edema (left leg), cyanosis (left big toe) - Gastrointestinal General gastrointestinal: Present: soft, non-tender, non-distended, normal bowel sounds - Integumentary Integumentary: clear, warm, dry - Musculoskeletal Musculoskeletal: 1, strength equal bilaterally - Neurologic Neurologic: moves all extremities - Psychiatric Psychiatric: memory intact, appropriate mood/affect, intact judgment & insight - Labs CBC & Chem 7: 05/21/17 03:58 05/21/17 03:58 Labs: Abnormal lab results 05/20/17 05/20/17 05/20/17 Range/Units 07:14 16:11 21:49 WBC 17.6 H (4.5-11.0) K/mm3 RBC 2.77 L (3.65-5.03) M/mm3 Hgb 7.9 L (11.8-15.2) gm/dl Hct 24.8 L (35.5-45.6) % Lymph % (Auto) 8.2 L (13.4-35.0) % [place] % (Auto) 11.7 H (0.0-7.3) % [place] # 2.1 H (0.0-0.8) K/mm3 Seg Neutrophils % 79.1 H (40.0-70.0) % Seg Neutrophils # 14.0 H (1.8-7.7) K/mm3 Sodium (137-145) mmol/L Chloride (98-107) mmol/L Glucose (75-100) mg/dL POC Glucose 142 H 240 H (70-105) Calcium (8.4-10.2) mg/dL AST (5-40) units/L ALT (7-56) units/L Albumin (3.9-5) g/dL 05/21/17 05/21/17 Range/Units 03:58 03:58 WBC 13.1 H (4.5-11.0) K/mm3 RBC 2.34 L (3.65-5.03) M/mm3 Hgb 6.7 L (11.8-15.2) gm/dl Hct 20.8 L (35.5-45.6) % Lymph % (Auto) 9.0 L (13.4-35.0) % [place] % (Auto) 11.1 H (0.0-7.3) % [place] # 1.5 H (0.0-0.8) K/mm3 Seg Neutrophils % 79.0 H (40.0-70.0) % Seg Neutrophils # 10.3 H (1.8-7.7) K/mm3 Sodium 134 L (137-145) mmol/L Chloride 97.2 L (98-107) mmol/L Glucose 115 H (75-100) mg/dL POC Glucose (70-105) Calcium 7.9 L (8.4-10.2) mg/dL AST 154 H (5-40) units/L ALT 137 H (7-56) units/L Albumin 2.2 L (3.9-5) g/dL
[2017-05-21] MEDS ORDERED: NACL 0.9% 500 ML 500 ML IV NR (09:30)
[2017-05-21] MEDS: FOLBEE PLUS CZ PO SCH (10:02)
[2017-05-21] MEDS: LYRICA PO SCH ×2 (10:02→10:03)
[2017-05-21] MEDS: PLAVIX PO SCH (10:02)
[2017-05-21] MEDS: COLACE PO SCH ×2 (10:03→22:55)
[2017-05-21] MEDS: SENOKOT PO SCH ×2 (10:05→22:55)
[2017-05-21] MEDS: TOPROL XL PO SCH (10:05)
[2017-05-21] MEDS: ZESTRIL PO SCH (10:06)
[2017-05-21] MEDS: PEPCID PO SCH (10:08)
--- NOTE | 2017-05-21 12:44 | Progress Note ---
Assessment and Plan - Patient Problems (1) Ischemia of left lower extremity Current Visit: Yes Status: Acute Plan to address problem: Status post peripheral vascular surgery, cardiac status is stable. Subjective Date of service: 05/21/17 Principal diagnosis: PAD, T2DM Interval history: Patient is comfortable, in no acute distress. No cardiac complaints. Objective Vital Signs Temp Pulse Pulse Resp Resp Resp Resp 05/21/17 10:06 73 05/21/17 10:05 73 05/21/17 10:00 99.5 F 87 20 05/21/17 06:00 87 05/21/17 01:00 98.4 F 96 H 18 05/20/17 22:00 98.4 F 96 H 18 18 18 18 BP BP Pulse Ox 05/21/17 10:06 102/56 05/21/17 10:05 102/56 05/21/17 10:00 117/48 100 05/21/17 06:00 05/21/17 01:00 107/44 100 05/20/17 22:00 107/44 100 - Physical Examination General: No Apparent Distress HEENT: Positive: PERRL Neck: Positive: trachea midline Cardiac: Positive: Reg Rate and Rhythm Lungs: Positive: Decreased Breath Sounds Neuro: Positive: Grossly Intact Abdomen: Positive: Soft Skin: Positive: Clear Extremities: Present: Ulceration Noted. Absent: edema - Labs and Meds Cardiac Enzymes 05/21/17 Range/Units 03:58 AST 154 H (5-40) units/L CBC 05/20/17 05/21/17 Range/Units 07:14 03:58 WBC 17.6 H 13.1 H (4.5-11.0) K/mm3 RBC 2.77 L 2.34 L (3.65-5.03) M/mm3 Hgb 7.9 L 6.7 L (11.8-15.2) gm/dl Hct 24.8 L 20.8 L (35.5-45.6) % Plt Count 314 305 (140-440) K/mm3 Lymph # 1.5 1.2 (1.2-5.4) K/mm3 [place] # 2.1 H 1.5 H (0.0-0.8) K/mm3 Eos # 0.1 0.1 (0.0-0.4) K/mm3 Baso # 0.1 0.0 (0.0-0.1) K/mm3 Comprehensive Metabolic Panel 05/21/17 Range/Units 03:58 Sodium 134 L (137-145) mmol/L Potassium 4.6 (3.6-5.0) mmol/L Chloride 97.2 L (98-107) mmol/L Carbon Dioxide 24 (22-30) mmol/L BUN 20 (9-20) mg/dL Creatinine 0.9 (0.8-1.5) mg/dL Glucose 115 H (75-100) mg/dL Calcium 7.9 L (8.4-10.2) mg/dL AST 154 H (5-40) units/L ALT 137 H (7-56) units/L Alkaline Phosphatase 72 (35-129) units/L Total Protein 6.3 (6.3-8.2) g/dL Albumin 2.2 L (3.9-5) g/dL
--- NOTE | 2017-05-21 14:10 | Progress Note ---
Assessment and Plan - Patient Problems (1) Leukocytosis, unspecified Current Visit: Yes Status: Acute Qualifiers: Leukocytosis type: L Plan to address problem: 1. Improved WBC count. 2. Continue current management and continue to monitor clinically for now. 3. I will sign off, but please call again if there are additional questions or concerns. (2) Hematoma Current Visit: Yes Status: Acute (3) Acute deep vein thrombosis (DVT) of left peroneal vein Onset Date: 07/13/16 Current Visit: No Status: Acute Subjective Date of service: 05/21/17 Principal diagnosis: PAD, T2DM Interval history: No new events. Objective - Constitutional Vitals: Vital Signs Temp Pulse Resp BP Pulse Ox 99.5 F 73 20 102/56 100 05/21/17 10:00 05/21/17 10:06 05/21/17 10:00 05/21/17 10:06 05/21/17 10:00 Temperature -Last 24 Hours Temperature 99.5 F Temperature 98.4 F Temperature 98.4 F General appearance: Present: no acute distress - EENT Eyes: no conjunctival injection - Respiratory Respiratory effort: normal Respiratory: bilateral: CTA - Cardiovascular Rhythm: regular Heart Sounds: Present: S1 & S2 Extremity abnormal: cyanosis, pulses diminished, other (wound vac at left groin and second wound vac at left foot at webspace of now amputated 2nd-3rd toes; stapled incisions along leg have evidence of slight bleeding, no purulent drainage, no increased warmth) - Gastrointestinal General gastrointestinal: Present: soft, distended (mild distention), normal bowel sounds - Integumentary Integumentary: clear, no rash - Neurologic Neurologic: moves all extremities - Psychiatric Psychiatric: appropriate mood/affect - Labs CBC & Chem 7: 05/21/17 03:58 05/21/17 03:58 Labs: Abnormal lab results 05/20/17 05/20/17 05/21/17 Range/Units 16:11 21:49 03:58 WBC 13.1 H (4.5-11.0) K/mm3 RBC 2.34 L (3.65-5.03) M/mm3 Hgb 6.7 L (11.8-15.2) gm/dl Hct 20.8 L (35.5-45.6) % Lymph % (Auto) 9.0 L (13.4-35.0) % [place] % (Auto) 11.1 H (0.0-7.3) % [place] # 1.5 H (0.0-0.8) K/mm3 Seg Neutrophils % 79.0 H (40.0-70.0) % Seg Neutrophils # 10.3 H (1.8-7.7) K/mm3 Sodium (137-145) mmol/L Chloride (98-107) mmol/L Glucose (75-100) mg/dL POC Glucose 142 H 240 H (70-105) Calcium (8.4-10.2) mg/dL AST (5-40) units/L ALT (7-56) units/L Albumin (3.9-5) g/dL Crossmatch 05/21/17 05/21/17 05/21/17 Range/Units 03:58 10:51 11:53 WBC (4.5-11.0) K/mm3 RBC (3.65-5.03) M/mm3 Hgb (11.8-15.2) gm/dl Hct (35.5-45.6) % Lymph % (Auto) (13.4-35.0) % [place] % (Auto) (0.0-7.3) % [place] # (0.0-0.8) K/mm3 Seg Neutrophils % (40.0-70.0) % Seg Neutrophils # (1.8-7.7) K/mm3 Sodium 134 L (137-145) mmol/L Chloride 97.2 L (98-107) mmol/L Glucose 115 H (75-100) mg/dL POC Glucose 158 H (70-105) Calcium 7.9 L (8.4-10.2) mg/dL AST 154 H (5-40) units/L ALT 137 H (7-56) units/L Albumin 2.2 L (3.9-5) g/dL Crossmatch See Detail Microbiology 05/19/17 21:45 Peripheral/Venous Blood Culture - Preliminary NO GROWTH AFTER 24 HOURS 05/19/17 21:58 Peripheral/Venous Blood Culture - Preliminary NO GROWTH AFTER 24 HOURS
--- NOTE | 2017-05-21 16:46 | Progress Note ---
Assessment and Plan The patient has acute anemia with generalized deconditioning. He will receive 2 units of packed red blood cells. Have recommended that the patient undergo open transmetatarsal amputation to remove all necrotic tissue and the ischemic toes with the hopes of healing the wound with a wound VAC and hyperbaric oxygen. The patient expressed understanding of the recommendation and has agreed to proceed with operation. We'll plan to make him nothing by mouth after midnight and proceed to the operating room tomorrow. Subjective Date of service: 05/21/17 Principal diagnosis: PVD s/p Femoral-Post Tibial Artery Bypass; CAD s/p CABG; Diabetes II Interval history: The wound care nurse remove the patient's left foot VAC today. Upon request we evaluated his foot which was found to have a significant amount necrotic tissue within the wound base. The patient denies any acute pain. Objective - Constitutional Vitals: Vital Signs - 12hr 05/21/17 05/21/17 05/21/17 06:00 10:00 10:05 Temperature 99.5 F Pulse Rate 87 73 Pulse Rate [ 87 From Monitor] Respiratory 20 Rate Blood Pressure 102/56 Blood Pressure 117/48 [Left Arm] O2 Sat by Pulse 100 Oximetry 05/21/17 10:06 Temperature Pulse Rate 73 Pulse Rate [ From Monitor] Respiratory Rate Blood Pressure 102/56 Blood Pressure [Left Arm] O2 Sat by Pulse Oximetry General appearance: Present: no acute distress - Neck Neck: supple - Respiratory Respiratory effort: normal - Breasts Breasts: deferred - Cardiovascular Rhythm: regular Extremities: abnormal (patient's left lower pole with necrotic tissue in the base. The first and fourth toes are ischemic. The foot is warm with a multiphasic Doppler signal in the posterior tibial artery. The left groin wound is clean with no evidence of a infection ) Extremity abnormal: edema (left lower extremity edema) - Gastrointestinal General gastrointestinal: Present: soft, non-tender - Genitourinary Male genitourinary: deferred - Labs CBC & Chem 7: 05/21/17 03:58 05/21/17 03:58 Labs: Abnormal lab results 05/20/17 05/21/17 05/21/17 Range/Units 21:49 03:58 03:58 WBC 13.1 H (4.5-11.0) K/mm3 RBC 2.34 L (3.65-5.03) M/mm3 Hgb 6.7 L (11.8-15.2) gm/dl Hct 20.8 L (35.5-45.6) % Lymph % (Auto) 9.0 L (13.4-35.0) % [place] % (Auto) 11.1 H (0.0-7.3) % [place] # 1.5 H (0.0-0.8) K/mm3 Seg Neutrophils % 79.0 H (40.0-70.0) % Seg Neutrophils # 10.3 H (1.8-7.7) K/mm3 Sodium 134 L (137-145) mmol/L Chloride 97.2 L (98-107) mmol/L Glucose 115 H (75-100) mg/dL POC Glucose 240 H (70-105) Calcium 7.9 L (8.4-10.2) mg/dL AST 154 H (5-40) units/L ALT 137 H (7-56) units/L Albumin 2.2 L (3.9-5) g/dL Crossmatch 05/21/17 05/21/17 Range/Units 10:51 11:53 WBC (4.5-11.0) K/mm3 RBC (3.65-5.03) M/mm3 Hgb (11.8-15.2) gm/dl Hct (35.5-45.6) % Lymph % (Auto) (13.4-35.0) % [place] % (Auto) (0.0-7.3) % [place] # (0.0-0.8) K/mm3 Seg Neutrophils % (40.0-70.0) % Seg Neutrophils # (1.8-7.7) K/mm3 Sodium (137-145) mmol/L Chloride (98-107) mmol/L Glucose (75-100) mg/dL POC Glucose 158 H (70-105) Calcium (8.4-10.2) mg/dL AST (5-40) units/L ALT (7-56) units/L Albumin (3.9-5) g/dL Crossmatch See Detail
[2017-05-21] MEDS: NORCO 5/325 PO PRN (17:08)
--- NOTE | 2017-05-21 18:34 | Progress Note ---
Assessment and Plan Patients HGB dropped to 6.7.. Patient receiving blood transfusion.Patient alert, awake.No complaint of chest pain or shortness of breath.Resting on 11/2 litres O2 and O2 saturation 99% - Patient Problems (1) Acute deep vein thrombosis (DVT) of left peroneal vein Onset Date: 07/13/16 Current Visit: No Status: Acute Plan to address problem: Patient is on I/V Heparin. Monitor Heparin anti Xa level. Todays heparin Anti xa level .49. (2) CAD (coronary artery disease) Current Visit: Yes Status: Chronic Qualifiers: Coronary Disease-Associated Artery/Lesion type: [place] artery [place] vs. transplanted heart: N Associated angina: without angina Plan to address problem: Mangement as per cardiology. (3) IDDM (insulin dependent diabetes mellitus) Current Visit: Yes Status: Chronic Plan to address problem: Management as per primary care. (4) Peripheral neuropathy Current Visit: Yes Status: Chronic Qualifiers: Peripheral neuropathy type: polyneuropathy associated with underlying disease Qualified Code(s): G63 - Polyneuropathy in diseases classified elsewhere Plan to address problem: Management as per primary care. (5) Hypertension Onset Date: 07/13/16 Current Visit: No Status: Chronic Qualifiers: Hypertension type: essential hypertension Qualified Code(s): I10 - Essential (primary) hypertension Plan to address problem: Management as per primary care. Subjective Date of service: 05/21/17 Principal diagnosis: PVD s/p Femoral-Post Tibial Artery Bypass; CAD s/p CABG; Diabetes II Interval history: Patients HGB dropped to 6.7.. Patient receiving blood transfusion.Patient alert, awake.No complaint of chest pain or shortness of breath.Resting on 11/2 litres O2 and O2 saturation 99% Objective Vital Signs - 12hr 05/21/17 05/21/17 05/21/17 10:00 10:05 10:06 Temperature 99.5 F Pulse Rate 73 73 Pulse Rate [ 87 From Monitor] Respiratory 20 Rate Blood Pressure 102/56 102/56 Blood Pressure 117/48 [Left Arm] O2 Sat by Pulse 100 Oximetry 05/21/17 05/21/17 18:08 18:23 Temperature 99 F 98.1 F Pulse Rate 74 71 Pulse Rate [ From Monitor] Respiratory 18 18 Rate Blood Pressure 114/54 117/49 Blood Pressure [Left Arm] O2 Sat by Pulse 100 100 Oximetry Constitutional: no acute distress, alert Eyes: non-icteric ENT: oropharynx moist Neck: supple, no lymphadenopathy Effort: mildly labored Ascultation: Bilateral: diminished breath sounds Cardiovascular: regular rate and rhythm Gastrointestinal: normoactive bowel sounds, soft, non-tender Integumentary: cellulitis (Left foot.) Extremities: no cyanosis, no edema, other (left foot in clean dressing and MIKALA bandage) Neurologic: normal mental status, non-focal exam, pupils equal and round, motor strength normal and Psychiatric: mood appropriate, affect normal CBC and BMP: 05/21/17 03:58 05/21/17 03:58 ABG, PT/INR, D-dimer: PT/INR, D-dimer PT 14.0 Sec. (12.2-14.9) 05/12/17 11:41 INR 1.09 (0.87-1.13) 05/12/17 11:41 Abnormal lab findings: Abnormal Labs 05/01/17 05/01/17 05/01/17 14:55 14:55 14:55 WBC 12.0 H RBC Hgb POC Hgb Hct POC Hct RDW 12.9 L Lymph % (Auto) 6.3 L Lamb % (Auto) Lymph # 0.8 L Lamb # 0.9 H Seg Neutrophils % 85.9 H Lymphocytes % (Manual) Monocytes % (Manual) Seg Neutrophils # 10.3 H INR 1.15 H APTT 37.7 H Heparin Anti-Xa Level POC Sodium POC Potassium Sodium Potassium Chloride 97.8 L Carbon Dioxide POC BUN BUN 23 H Creatinine Glucose 321 H POC Glucose Hemoglobin A1c Calcium AST ALT Total Protein Albumin Crossmatch 05/01/17 05/01/17 05/02/17 18:32 21:49 03:51 WBC RBC Hgb POC Hgb Hct POC Hct RDW 12.8 L Lymph % (Auto) Lamb % (Auto) 12.4 H Lymph # Lamb # 1.0 H Seg Neutrophils % Lymphocytes % (Manual) Monocytes % (Manual) Seg Neutrophils # INR APTT Heparin Anti-Xa Level POC Sodium POC Potassium Sodium Potassium Chloride Carbon Dioxide POC BUN BUN Creatinine Glucose POC Glucose 247 H 280 H Hemoglobin A1c Calcium AST ALT Total Protein Albumin Crossmatch 05/02/17 05/02/17 05/02/17 03:51 03:51 07:27 WBC RBC Hgb POC Hgb Hct POC Hct RDW Lymph % (Auto) Lamb % (Auto) Lymph # Lamb # Seg Neutrophils % Lymphocytes % (Manual) Monocytes % (Manual) Seg Neutrophils # INR APTT Heparin Anti-Xa Level 0.22 L POC Sodium POC Potassium Sodium Potassium Chloride Carbon Dioxide POC BUN BUN Creatinine Glucose 136 H POC Glucose 115 H Hemoglobin A1c Calcium AST ALT Total Protein Albumin Crossmatch 05/02/17 05/02/17 05/02/17 11:50 20:33 21:56 WBC RBC Hgb POC Hgb Hct POC Hct RDW Lymph % (Auto) Lamb % (Auto) Lymph # Lamb # Seg Neutrophils % Lymphocytes % (Manual) Monocytes % (Manual) Seg Neutrophils # INR APTT Heparin Anti-Xa Level 0.24 L POC Sodium POC Potassium Sodium Potassium Chloride Carbon Dioxide POC BUN BUN Creatinine Glucose POC Glucose 165 H 248 H Hemoglobin A1c Calcium AST ALT Total Protein Albumin Crossmatch 05/03/17 05/03/17 05/03/17 03:23 05:14 05:14 WBC RBC Hgb POC Hgb Hct POC Hct RDW 12.8 L Lymph % (Auto) Lamb % (Auto) 14.1 H Lymph # Lamb # 1.2 H Seg Neutrophils % Lymphocytes % (Manual) Monocytes % (Manual) Seg Neutrophils # INR APTT 101.1 H* Heparin Anti-Xa Level POC Sodium POC Potassium Sodium 136 L Potassium Chloride Carbon Dioxide POC BUN BUN Creatinine Glucose 116 H POC Glucose Hemoglobin A1c Calcium AST ALT Total Protein Albumin 3.0 L Crossmatch 05/03/17 05/03/17 05/03/17 05:14 11:48 11:51 WBC RBC Hgb POC Hgb Hct POC Hct RDW Lymph % (Auto) Lamb % (Auto) Lymph # Lamb # Seg Neutrophils % Lymphocytes % (Manual) Monocytes % (Manual) Seg Neutrophils # INR APTT Heparin Anti-Xa Level 0.26 L POC Sodium POC Potassium Sodium Potassium Chloride Carbon Dioxide POC BUN BUN Creatinine Glucose POC Glucose 128 H Hemoglobin A1c 10.2 H Calcium AST ALT Total Protein Albumin Crossmatch 05/03/17 05/03/17 05/04/17 18:50 22:17 04:02 WBC RBC Hgb POC Hgb Hct POC Hct RDW 12.9 L Lymph % (Auto) Lamb % (Auto) Lymph # [place] # Seg Neutrophils % Lymphocytes % (Manual) 13.0 L Monocytes % (Manual) 9.0 H Seg Neutrophils # INR APTT Heparin Anti-Xa Level POC Sodium POC Potassium Sodium Potassium Chloride Carbon Dioxide POC BUN BUN Creatinine Glucose POC Glucose 314 H 312 H Hemoglobin A1c Calcium AST ALT Total Protein Albumin Crossmatch 05/04/17 05/04/17 05/04/17 04:02 07:49 11:54 WBC RBC Hgb POC Hgb Hct POC Hct RDW Lymph % (Auto) Lamb % (Auto) Lymph # [place] # Seg Neutrophils % Lymphocytes % (Manual) Monocytes % (Manual) Seg Neutrophils # INR APTT Heparin Anti-Xa Level POC Sodium POC Potassium Sodium 134 L Potassium 5.2 H Chloride 96.2 L Carbon Dioxide POC BUN BUN 21 H Creatinine Glucose 251 H POC Glucose 177 H 186 H Hemoglobin A1c Calcium AST ALT Total Protein Albumin 3.0 L Crossmatch 05/04/17 05/04/17 05/05/17 17:46 22:51 05:09 WBC RBC Hgb POC Hgb Hct POC Hct RDW Lymph % (Auto) Lamb % (Auto) Lymph # [place] # Seg Neutrophils % Lymphocytes % (Manual) Monocytes % (Manual) Seg Neutrophils # INR APTT Heparin Anti-Xa Level POC Sodium POC Potassium Sodium 135 L Potassium Chloride Carbon Dioxide POC BUN BUN Creatinine Glucose 179 H POC Glucose 244 H 265 H Hemoglobin A1c Calcium AST ALT Total Protein Albumin 2.9 L Crossmatch 05/05/17 05/05/17 05/05/17 05:09 07:39 11:24 WBC RBC Hgb POC Hgb Hct POC Hct RDW Lymph % (Auto) Lamb % (Auto) Lymph # Lamb # Seg Neutrophils % Lymphocytes % (Manual) Monocytes % (Manual) Seg Neutrophils # INR APTT Heparin Anti-Xa Level 0.15 L 0.29 L POC Sodium POC Potassium Sodium Potassium Chloride Carbon Dioxide POC BUN BUN Creatinine Glucose POC Glucose 153 H Hemoglobin A1c Calcium AST ALT Total Protein Albumin Crossmatch 05/05/17 05/05/17 05/05/17 11:53 16:33 22:05 WBC RBC Hgb POC Hgb Hct POC Hct RDW Lymph % (Auto) Lamb % (Auto) Lymph # Lamb # Seg Neutrophils % Lymphocytes % (Manual) Monocytes % (Manual) Seg Neutrophils # INR APTT Heparin Anti-Xa Level POC Sodium POC Potassium Sodium Potassium Chloride Carbon Dioxide POC BUN BUN Creatinine Glucose POC Glucose 171 H 317 H 313 H Hemoglobin A1c Calcium AST ALT Total Protein Albumin Crossmatch 05/06/17 05/06/17 05/06/17 07:32 11:47 16:28 WBC RBC Hgb POC Hgb Hct POC Hct RDW Lymph % (Auto) Lamb % (Auto) Lymph # Lamb # Seg Neutrophils % Lymphocytes % (Manual) Monocytes % (Manual) Seg Neutrophils # INR APTT Heparin Anti-Xa Level POC Sodium POC Potassium Sodium Potassium Chloride Carbon Dioxide POC BUN BUN Creatinine Glucose POC Glucose 176 H 210 H 283 H Hemoglobin A1c Calcium AST ALT Total Protein Albumin Crossmatch 05/06/17 05/07/17 05/07/17 21:33 03:56 07:11 WBC RBC Hgb POC Hgb Hct POC Hct RDW Lymph % (Auto) Lamb % (Auto) Lymph # Lamb # Seg Neutrophils % Lymphocytes % (Manual) Monocytes % (Manual) Seg Neutrophils # INR APTT Heparin Anti-Xa Level 0.10 L POC Sodium POC Potassium Sodium Potassium Chloride Carbon Dioxide POC BUN BUN Creatinine Glucose POC Glucose 264 H 276 H Hemoglobin A1c Calcium AST ALT Total Protein Albumin Crossmatch 05/07/17 05/07/17 05/07/17 11:48 11:48 16:11 WBC RBC Hgb POC Hgb Hct POC Hct RDW Lymph % (Auto) Lamb % (Auto) Lymph # Lamb # Seg Neutrophils % Lymphocytes % (Manual) Monocytes % (Manual) Seg Neutrophils # INR APTT Heparin Anti-Xa Level POC Sodium 137 L POC Potassium 5.5 H Sodium Potassium Chloride Carbon Dioxide POC BUN 31 H BUN Creatinine Glucose POC Glucose 128 H 158 H Hemoglobin A1c Calcium AST ALT Total Protein Albumin Crossmatch See Detail 05/07/17 05/07/17 05/07/17 16:44 20:28 22:47 WBC RBC Hgb POC Hgb 11.6 L Hct POC Hct 34 L RDW Lymph % (Auto) Lamb % (Auto) Lymph # [place] # Seg Neutrophils % Lymphocytes % (Manual) Monocytes % (Manual) Seg Neutrophils # INR APTT Heparin Anti-Xa Level POC Sodium POC Potassium 5.0 H Sodium Potassium Chloride Carbon Dioxide POC BUN 27 H BUN Creatinine Glucose POC Glucose 170 H 203 H 253 H Hemoglobin A1c Calcium AST ALT Total Protein Albumin Crossmatch 05/08/17 05/08/17 05/08/17 04:23 07:57 12:01 WBC RBC Hgb POC Hgb Hct POC Hct RDW Lymph % (Auto) Lamb % (Auto) Lymph # Lamb # Seg Neutrophils % Lymphocytes % (Manual) Monocytes % (Manual) Seg Neutrophils # INR APTT Heparin Anti-Xa Level POC Sodium POC Potassium Sodium Potassium 5.3 H D Chloride Carbon Dioxide 19 L POC BUN BUN 29 H Creatinine Glucose 223 H POC Glucose 258 H 282 H Hemoglobin A1c Calcium 8.2 L AST ALT Total Protein Albumin Crossmatch 05/08/17 05/08/17 05/08/17 15:42 19:44 21:39 WBC RBC Hgb POC Hgb Hct POC Hct RDW Lymph % (Auto) Lamb % (Auto) Lymph # Lamb # Seg Neutrophils % Lymphocytes % (Manual) Monocytes % (Manual) Seg Neutrophils # INR APTT Heparin Anti-Xa Level 0.25 L POC Sodium POC Potassium Sodium Potassium Chloride Carbon Dioxide POC BUN BUN Creatinine Glucose POC Glucose 280 H 329 H Hemoglobin A1c Calcium AST ALT Total Protein Albumin Crossmatch 05/09/17 05/09/17 05/09/17 01:52 08:27 12:02 WBC RBC Hgb POC Hgb Hct POC Hct RDW Lymph % (Auto) Lamb % (Auto) Lymph # Lamb # Seg Neutrophils % Lymphocytes % (Manual) Monocytes % (Manual) Seg Neutrophils # INR APTT Heparin Anti-Xa Level 0.29 L POC Sodium POC Potassium Sodium Potassium Chloride Carbon Dioxide POC BUN BUN Creatinine Glucose POC Glucose 187 H 190 H Hemoglobin A1c Calcium AST ALT Total Protein Albumin Crossmatch 05/09/17 05/09/17 05/10/17 16:42 21:58 03:41 WBC 13.4 H RBC 3.61 L Hgb 10.8 L POC Hgb Hct 31.9 L POC Hct RDW 13.1 L Lymph % (Auto) 12.9 L Lamb % (Auto) 12.2 H Lymph # Lamb # 1.6 H Seg Neutrophils % 74.1 H Lymphocytes % (Manual) Monocytes % (Manual) Seg Neutrophils # 10.0 H INR APTT Heparin Anti-Xa Level POC Sodium POC Potassium Sodium Potassium Chloride Carbon Dioxide POC BUN BUN Creatinine Glucose POC Glucose 245 H 344 H Hemoglobin A1c Calcium AST ALT Total Protein Albumin Crossmatch 05/10/17 05/10/17 05/10/17 03:41 07:31 12:08 WBC RBC Hgb POC Hgb Hct POC Hct RDW Lymph % (Auto) Lamb % (Auto) Lymph # Lamb # Seg Neutrophils % Lymphocytes % (Manual) Monocytes % (Manual) Seg Neutrophils # INR APTT Heparin Anti-Xa Level POC Sodium POC Potassium Sodium 134 L Potassium Chloride Carbon Dioxide 21 L POC BUN BUN Creatinine Glucose 171 H POC Glucose 127 H 172 H Hemoglobin A1c Calcium 8.2 L AST 51 H ALT Total Protein Albumin 2.2 L Crossmatch 05/10/17 05/10/17 05/11/17 16:28 21:04 05:03 WBC 19.1 H RBC 3.64 L Hgb 10.7 L POC Hgb Hct 32.1 L POC Hct RDW Lymph % (Auto) 11.8 L Lamb % (Auto) 10.8 H Lymph # Lamb # 2.1 H Seg Neutrophils % 75.6 H Lymphocytes % (Manual) Monocytes % (Manual) Seg Neutrophils # 14.4 H INR APTT Heparin Anti-Xa Level POC Sodium POC Potassium Sodium Potassium Chloride Carbon Dioxide POC BUN BUN Creatinine Glucose POC Glucose 197 H 295 H Hemoglobin A1c Calcium AST ALT Total Protein Albumin Crossmatch 05/11/17 05/11/17 05/11/17 05:03 07:30 09:52 WBC RBC Hgb POC Hgb Hct POC Hct RDW Lymph % (Auto) Lamb % (Auto) Lymph # [place] # Seg Neutrophils % Lymphocytes % (Manual) Monocytes % (Manual) Seg Neutrophils # INR APTT Heparin Anti-Xa Level POC Sodium POC Potassium Sodium Potassium 5.2 H Chloride Carbon Dioxide POC BUN BUN Creatinine Glucose 143 H POC Glucose 118 H 124 H Hemoglobin A1c Calcium AST 51 H ALT Total Protein Albumin 2.7 L Crossmatch 05/11/17 05/11/17 05/11/17 11:32 12:22 16:22 WBC RBC Hgb POC Hgb Hct POC Hct RDW Lymph % (Auto) Lamb % (Auto) Lymph # [place] # Seg Neutrophils % Lymphocytes % (Manual) Monocytes % (Manual) Seg Neutrophils # INR APTT Heparin Anti-Xa Level < 0.10 L POC Sodium POC Potassium Sodium Potassium Chloride Carbon Dioxide POC BUN BUN Creatinine Glucose POC Glucose 119 H 197 H Hemoglobin A1c Calcium AST ALT Total Protein Albumin Crossmatch 05/11/17 05/12/17 05/12/17 22:06 05:35 05:35 WBC RBC 3.64 L Hgb 10.8 L POC Hgb Hct 32.5 L POC Hct RDW Lymph % (Auto) 8.0 L Lamb % (Auto) 12.8 H Lymph # 0.8 L Lamb # 1.3 H Seg Neutrophils % 77.9 H Lymphocytes % (Manual) Monocytes % (Manual) Seg Neutrophils # 8.2 H INR APTT Heparin Anti-Xa Level POC Sodium POC Potassium Sodium 136 L Potassium Chloride Carbon Dioxide POC BUN BUN Creatinine Glucose 210 H POC Glucose 296 H Hemoglobin A1c Calcium 8.3 L AST ALT Total Protein 6.2 L Albumin 2.6 L Crossmatch 05/12/17 05/12/17 05/12/17 07:26 11:30 11:41 WBC RBC Hgb 11.4 L POC Hgb Hct 35.1 L POC Hct RDW Lymph % (Auto) Lamb % (Auto) Lymph # Lamb # Seg Neutrophils % Lymphocytes % (Manual) Monocytes % (Manual) Seg Neutrophils # INR APTT Heparin Anti-Xa Level POC Sodium POC Potassium Sodium Potassium Chloride Carbon Dioxide POC BUN BUN Creatinine Glucose POC Glucose 171 H 126 H Hemoglobin A1c Calcium AST ALT Total Protein Albumin Crossmatch 05/12/17 05/12/17 05/12/17 16:23 21:14 21:50 WBC RBC Hgb POC Hgb Hct POC Hct RDW Lymph % (Auto) Lamb % (Auto) Lymph # Lamb # Seg Neutrophils % Lymphocytes % (Manual) Monocytes % (Manual) Seg Neutrophils # INR APTT Heparin Anti-Xa Level 0.22 L POC Sodium POC Potassium Sodium Potassium Chloride Carbon Dioxide POC BUN BUN Creatinine Glucose POC Glucose 223 H 308 H Hemoglobin A1c Calcium AST ALT Total Protein Albumin Crossmatch 05/13/17 05/13/17 05/13/17 04:21 07:24 11:46 WBC RBC Hgb POC Hgb Hct POC Hct RDW Lymph % (Auto) Lamb % (Auto) Lymph # Lamb # Seg Neutrophils % Lymphocytes % (Manual) Monocytes % (Manual) Seg Neutrophils # INR APTT Heparin Anti-Xa Level 0.23 L POC Sodium POC Potassium Sodium Potassium Chloride Carbon Dioxide POC BUN BUN Creatinine Glucose POC Glucose 112 H 206 H Hemoglobin A1c Calcium AST ALT Total Protein Albumin Crossmatch 05/13/17 05/13/17 05/13/17 11:57 16:42 21:44 WBC RBC Hgb POC Hgb Hct POC Hct RDW Lymph % (Auto) Lamb % (Auto) Lymph # Lamb # Seg Neutrophils % Lymphocytes % (Manual) Monocytes % (Manual) Seg Neutrophils # INR APTT Heparin Anti-Xa Level 0.21 L POC Sodium POC Potassium Sodium Potassium Chloride Carbon Dioxide POC BUN BUN Creatinine Glucose POC Glucose 217 H 245 H Hemoglobin A1c Calcium AST ALT Total Protein Albumin Crossmatch 05/14/17 05/14/17 05/14/17 07:13 16:03 21:01 WBC RBC Hgb 10.9 L POC Hgb Hct 33.1 L POC Hct RDW Lymph % (Auto) Lamb % (Auto) Lymph # Lamb # Seg Neutrophils % Lymphocytes % (Manual) Monocytes % (Manual) Seg Neutrophils # INR APTT Heparin Anti-Xa Level POC Sodium POC Potassium Sodium Potassium Chloride Carbon Dioxide POC BUN BUN Creatinine Glucose POC Glucose 144 H 262 H Hemoglobin A1c Calcium AST ALT Total Protein Albumin Crossmatch 05/15/17 05/15/17 05/15/17 07:39 11:31 16:24 WBC RBC Hgb POC Hgb Hct POC Hct RDW Lymph % (Auto) Lamb % (Auto) Lymph # Lamb # Seg Neutrophils % Lymphocytes % (Manual) Monocytes % (Manual) Seg Neutrophils # INR APTT Heparin Anti-Xa Level POC Sodium POC Potassium Sodium Potassium Chloride Carbon Dioxide POC BUN BUN Creatinine Glucose POC Glucose 246 H 297 H 319 H Hemoglobin A1c Calcium AST ALT Total Protein Albumin Crossmatch 05/15/17 05/16/17 05/16/17 20:55 07:39 09:03 WBC RBC Hgb 8.4 L POC Hgb Hct 25.9 L D POC Hct RDW Lymph % (Auto) Lamb % (Auto) Lymph # Lamb # Seg Neutrophils % Lymphocytes % (Manual) Monocytes % (Manual) Seg Neutrophils # INR APTT Heparin Anti-Xa Level POC Sodium POC Potassium Sodium Potassium Chloride Carbon Dioxide POC BUN BUN Creatinine Glucose POC Glucose 344 H 110 H Hemoglobin A1c Calcium AST ALT Total Protein Albumin Crossmatch 05/16/17 05/16/17 05/16/17 11:51 16:48 23:09 WBC RBC Hgb POC Hgb Hct POC Hct RDW Lymph % (Auto) Lamb % (Auto) Lymph # Lamb # Seg Neutrophils % Lymphocytes % (Manual) Monocytes % (Manual) Seg Neutrophils # INR APTT Heparin Anti-Xa Level POC Sodium POC Potassium Sodium Potassium Chloride Carbon Dioxide POC BUN BUN Creatinine Glucose POC Glucose 119 H 188 H 219 H Hemoglobin A1c Calcium AST ALT Total Protein Albumin Crossmatch 05/17/17 05/17/17 05/17/17 04:39 04:39 07:34 WBC 18.6 H RBC 2.64 L Hgb 7.6 L POC Hgb Hct 23.3 L POC Hct RDW Lymph % (Auto) 7.2 L Lamb % (Auto) 13.3 H Lymph # Lamb # 2.5 H Seg Neutrophils % 79.2 H Lymphocytes % (Manual) Monocytes % (Manual) Seg Neutrophils # 14.8 H INR APTT Heparin Anti-Xa Level POC Sodium POC Potassium Sodium 133 L Potassium Chloride 95.5 L Carbon Dioxide POC BUN BUN 26 H Creatinine 1.6 H D Glucose 183 H POC Glucose 144 H Hemoglobin A1c Calcium 8.2 L AST 154 H ALT 79 H Total Protein Albumin 2.6 L Crossmatch 05/17/17 05/17/17 05/17/17 09:17 16:23 22:37 WBC RBC Hgb 8.3 L POC Hgb Hct 24.8 L POC Hct RDW Lymph % (Auto) Lamb % (Auto) Lymph # Lamb # Seg Neutrophils % Lymphocytes % (Manual) Monocytes % (Manual) Seg Neutrophils # INR APTT Heparin Anti-Xa Level POC Sodium POC Potassium Sodium Potassium Chloride Carbon Dioxide POC BUN BUN Creatinine Glucose POC Glucose 145 H 207 H Hemoglobin A1c Calcium AST ALT Total Protein Albumin Crossmatch 05/18/17 05/18/17 05/18/17 04:23 04:23 07:37 WBC 19.8 H RBC 2.73 L Hgb 7.9 L POC Hgb Hct 24.2 L POC Hct RDW Lymph % (Auto) 6.1 L Lamb % (Auto) 13.8 H Lymph # Lamb # 2.7 H Seg Neutrophils % 79.8 H Lymphocytes % (Manual) Monocytes % (Manual) Seg Neutrophils # 15.8 H INR APTT Heparin Anti-Xa Level POC Sodium POC Potassium Sodium 133 L Potassium Chloride 93.3 L Carbon Dioxide POC BUN BUN 26 H Creatinine Glucose 145 H POC Glucose 144 H Hemoglobin A1c Calcium AST 189 H ALT 101 H Total Protein Albumin 2.7 L Crossmatch 05/18/17 05/18/17 05/18/17 11:24 16:48 19:26 WBC RBC Hgb POC Hgb Hct POC Hct RDW Lymph % (Auto) Lamb % (Auto) Lymph # Lamb # Seg Neutrophils % Lymphocytes % (Manual) Monocytes % (Manual) Seg Neutrophils # INR APTT Heparin Anti-Xa Level 0.20 L POC Sodium POC Potassium Sodium Potassium Chloride Carbon Dioxide POC BUN BUN Creatinine Glucose POC Glucose 142 H 226 H Hemoglobin A1c Calcium AST ALT Total Protein Albumin Crossmatch 05/18/17 05/19/17 05/19/17 21:53 07:27 12:38 WBC RBC Hgb POC Hgb Hct POC Hct RDW Lymph % (Auto) Lamb % (Auto) Lymph # Lamb # Seg Neutrophils % Lymphocytes % (Manual) Monocytes % (Manual) Seg Neutrophils # INR APTT Heparin Anti-Xa Level POC Sodium POC Potassium Sodium Potassium Chloride Carbon Dioxide POC BUN BUN Creatinine Glucose POC Glucose 275 H 164 H 266 H Hemoglobin A1c Calcium AST ALT Total Protein Albumin Crossmatch 05/19/17 05/19/17 05/19/17 13:03 16:25 22:19 WBC 19.4 H RBC 2.68 L Hgb 7.7 L POC Hgb Hct 23.7 L POC Hct RDW Lymph % (Auto) 5.7 L Lamb % (Auto) 11.2 H Lymph # 1.1 L Lamb # 2.2 H Seg Neutrophils % 82.9 H Lymphocytes % (Manual) Monocytes % (Manual) Seg Neutrophils # 16.1 H INR APTT Heparin Anti-Xa Level POC Sodium POC Potassium Sodium Potassium Chloride Carbon Dioxide POC BUN BUN Creatinine Glucose POC Glucose 253 H 182 H Hemoglobin A1c Calcium AST ALT Total Protein Albumin Crossmatch 05/20/17 05/20/17 05/20/17 07:14 07:14 16:11 WBC 17.6 H RBC 2.77 L Hgb 7.8 L 7.9 L POC Hgb Hct 23.7 L 24.8 L POC Hct RDW Lymph % (Auto) 8.2 L Lamb % (Auto) 11.7 H Lymph # Lamb # 2.1 H Seg Neutrophils % 79.1 H Lymphocytes % (Manual) Monocytes % (Manual) Seg Neutrophils # 14.0 H INR APTT Heparin Anti-Xa Level POC Sodium POC Potassium Sodium Potassium Chloride Carbon Dioxide POC BUN BUN Creatinine Glucose POC Glucose 142 H Hemoglobin A1c Calcium AST ALT Total Protein Albumin Crossmatch 05/20/17 05/21/17 05/21/17 21:49 03:58 03:58 WBC 13.1 H RBC 2.34 L Hgb 6.7 L POC Hgb Hct 20.8 L POC Hct RDW Lymph % (Auto) 9.0 L Lamb % (Auto) 11.1 H Lymph # Lamb # 1.5 H Seg Neutrophils % 79.0 H Lymphocytes % (Manual) Monocytes % (Manual) Seg Neutrophils # 10.3 H INR APTT Heparin Anti-Xa Level POC Sodium POC Potassium Sodium 134 L Potassium Chloride 97.2 L Carbon Dioxide POC BUN BUN Creatinine Glucose 115 H POC Glucose 240 H Hemoglobin A1c Calcium 7.9 L AST 154 H ALT 137 H Total Protein Albumin 2.2 L Crossmatch 05/21/17 05/21/17 05/21/17 10:51 11:53 16:23 WBC RBC Hgb POC Hgb Hct POC Hct RDW Lymph % (Auto) Lamb % (Auto) Lymph # Lamb # Seg Neutrophils % Lymphocytes % (Manual) Monocytes % (Manual) Seg Neutrophils # INR APTT Heparin Anti-Xa Level POC Sodium POC Potassium Sodium Potassium Chloride Carbon Dioxide POC BUN BUN Creatinine Glucose POC Glucose 158 H 206 H Hemoglobin A1c Calcium AST ALT Total Protein Albumin Crossmatch See Detail
[2017-05-21] MEDS ORDERED: NACL 0.9% 1000 ML 1,000 ML IV SCH (20:00)
[2017-05-21] MEDS: LEVEMIR SUB-Q SCH (22:54)
[2017-05-22 07:02] LABS: Alanine Aminotransferase 124 units/L (7-56); Albumin 2.5 g/dL (3.9-5); Albumin/Globulin Ratio 0.8 %; Alkaline Phosphatase 76 units/L (35-129); Anion Gap 18 mmol/L; Blood Urea Nitrogen 18 mg/dL (9-20); Calcium 7.8 mg/dL (8.4-10.2); Carbon Dioxide 24 mmol/L (22-30); Chloride 98.5 mmol/L (98-107); Glucose 175 mg/dL (75-100); Potassium 4.4 mmol/L (3.6-5.0); Sodium 136 mmol/L (137-145); Total Protein 5.8 g/dL (6.3-8.2)
[2017-05-22] MEDS: NOVOLOG SUB-Q SCH ×4 (07:30→21:46)
[2017-05-22 08:09] LABS: Basophils % (Auto) 0.1 % (0.0-1.8); Eosinophils % (Auto) 0.7 % (0.0-4.3); Hematocrit 26.1 % (35.5-45.6); Hemoglobin 8.5 gm/dl (11.8-15.2); Mean Corpuscular HGB Conc 33 % (32-34); Mean Corpuscular Hemoglobin 29 pg (28-32); Mean Corpuscular Volume 90 fl (84-94); Platelet Count 303 K/mm3 (140-440); Red Cell Distribution Width 13.9 % (13.2-15.2); White Blood Count 12.7 K/mm3 (4.5-11.0)
--- NOTE | 2017-05-22 09:22 | Progress Note ---
Assessment and Plan - PAD - In severe pain in the left leg. s/p Left femoral artery angioplasy, left femoral artery endoarterectomy and left femoral artery to post tibia artery bypass on 05/07/17. Still has swelling of the same limb from hematoma, though improving - IDDM: controlled with Levamir and SSI - Diabetic Left big toes gangrene : for left transmetatartasal amputation today by vascular surgeon revascularization and local wound care. - Diabetic peripheral Neuropathy: Continue with Gabapentin - Ischemic cardiomyopathy with EF 40-45% as at 2016 - Dysipidemia: On statin - Bleeding from the incision site on the left leg and hematoma on the left groin. resolved -Anemia: secondary to bleeding at the left leg inaction site from anticoagulation - s/p blood transfusion -Leukocytosis: Improving DVT and GI PPx with heparing and pepcid Subjective Date of service: 05/22/17 Principal diagnosis: PVD s/p Femoral-Post Tibial Artery Bypass; CAD s/p CABG; Diabetes II Interval history: pain and swelling left leg improving. No more bleeding from the incision sites in the left leg. More alert and interactive Pt with T2DM, PAD s/p Left femoral artery angioplasy, left femoral artery endoarterectomy and left femoral artery to post tibia artery bypass done with further intervention on 05/13/17. Objective - Constitutional Vitals: Vital Signs - 12hr 05/21/17 05/21/17 05/21/17 21:44 22:00 22:30 Temperature 99.1 F 99.4 F 99 F Pulse Rate 91 H 80 81 Pulse Rate [ 85 From Monitor] Respiratory 18 18 18 Rate Blood Pressure 115/63 112/65 112/65 Blood Pressure 100/47 [Left Arm] O2 Sat by Pulse 99 Oximetry 05/21/17 05/21/17 05/22/17 23:00 23:30 00:00 Temperature 99 F 99.1 F 99 F Pulse Rate 87 78 81 Pulse Rate [ From Monitor] Respiratory 18 18 16 Rate Blood Pressure 119/67 114/61 116/65 Blood Pressure [Left Arm] O2 Sat by Pulse Oximetry General appearance: Present: no acute distress, well-nourished - EENT Eyes: PERRL, EOM intact Ears: bilateral: normal - Neck Neck: supple, normal ROM - Respiratory Respiratory effort: normal Respiratory: bilateral: CTA - Cardiovascular Rhythm: regular Heart Sounds: Present: S1 & S2. Absent: gallop, rub Extremities: pulses intact, No edema, normal color, Full ROM - Gastrointestinal General gastrointestinal: Present: soft, non-tender, non-distended, normal bowel sounds - Genitourinary Male genitourinary: normal - Integumentary Integumentary: clear, warm, dry - Musculoskeletal Musculoskeletal: 1, strength equal bilaterally - Neurologic Neurologic: moves all extremities - Psychiatric Psychiatric: memory intact, appropriate mood/affect, intact judgment & insight - Labs CBC & Chem 7: 05/22/17 07:40 05/22/17 06:21 Labs: Abnormal lab results 05/21/17 05/21/17 05/21/17 Range/Units 10:51 11:53 16:23 WBC (4.5-11.0) K/mm3 RBC (3.65-5.03) M/mm3 Hgb (11.8-15.2) gm/dl Hct (35.5-45.6) % Lymph % (Auto) (13.4-35.0) % [place] % (Auto) (0.0-7.3) % Lymph # (1.2-5.4) K/mm3 [place] # (0.0-0.8) K/mm3 Seg Neutrophils % (40.0-70.0) % Seg Neutrophils # (1.8-7.7) K/mm3 Sodium (137-145) mmol/L Glucose (75-100) mg/dL POC Glucose 158 H 206 H (70-105) Calcium (8.4-10.2) mg/dL AST (5-40) units/L ALT (7-56) units/L Total Protein (6.3-8.2) g/dL Albumin (3.9-5) g/dL Crossmatch See Detail 05/21/17 05/22/17 05/22/17 Range/Units 23:02 06:21 07:20 WBC (4.5-11.0) K/mm3 RBC (3.65-5.03) M/mm3 Hgb (11.8-15.2) gm/dl Hct (35.5-45.6) % Lymph % (Auto) (13.4-35.0) % [place] % (Auto) (0.0-7.3) % Lymph # (1.2-5.4) K/mm3 [place] # (0.0-0.8) K/mm3 Seg Neutrophils % (40.0-70.0) % Seg Neutrophils # (1.8-7.7) K/mm3 Sodium 136 L (137-145) mmol/L Glucose 175 H (75-100) mg/dL POC Glucose 357 H 193 H (70-105) Calcium 7.8 L (8.4-10.2) mg/dL AST 93 H (5-40) units/L ALT 124 H (7-56) units/L Total Protein 5.8 L (6.3-8.2) g/dL Albumin 2.5 L (3.9-5) g/dL Crossmatch 05/22/17 Range/Units 07:40 WBC 12.7 H (4.5-11.0) K/mm3 RBC 2.90 L (3.65-5.03) M/mm3 Hgb 8.5 L (11.8-15.2) gm/dl Hct 26.1 L (35.5-45.6) % Lymph % (Auto) 8.2 L (13.4-35.0) % [place] % (Auto) 11.5 H (0.0-7.3) % Lymph # 1.0 L (1.2-5.4) K/mm3 [place] # 1.5 H (0.0-0.8) K/mm3 Seg Neutrophils % 79.5 H (40.0-70.0) % Seg Neutrophils # 10.1 H (1.8-7.7) K/mm3 Sodium (137-145) mmol/L Glucose (75-100) mg/dL POC Glucose (70-105) Calcium (8.4-10.2) mg/dL AST (5-40) units/L ALT (7-56) units/L Total Protein (6.3-8.2) g/dL Albumin (3.9-5) g/dL Crossmatch
[2017-05-22] MEDS: TOPROL XL PO SCH (10:00)
[2017-05-22] MEDS: ZESTRIL PO SCH (10:00)
--- NOTE | 2017-05-22 10:38 | Progress Note ---
Assessment and Plan PVD with left foot gangrene s/p Diagnostic Left Lower Extremity Arteriogram, Angioplasty and Stent of Left External Leg Artery, left Femoral Endarterectomy, and Left Femoral Artery to Posterior Tibial Artery Bypass With In Situ Left Greater Saphenous Vein Graft s/p left 2nd and 3rd toe amputation CAD s/p CABG Nuclear stress test showing no ischemia, fixed inferior and inferolateral wall defect consistent with prior [place], LVEF 46% Echo showing LVEF 40-45% with inferior wall hypokinesis and mild aortic stenosis Hyperlipidemia Hypertension Recommendations: Continue medical therapy for coronary artery disease. Conservative cardiac management. Subjective Date of service: 05/22/17 Principal diagnosis: PVD s/p Femoral-Post Tibial Artery Bypass; CAD s/p CABG; Diabetes II Interval history: No cardiac complaints. Awaits vascular surgery. Objective Vital Signs Temp Pulse Pulse Resp BP BP Pulse Ox 05/22/17 08:00 98.4 F 89 20 133/51 100 05/22/17 00:00 99 F 81 16 116/65 05/21/17 23:30 99.1 F 78 18 114/61 05/21/17 23:00 99 F 87 18 119/67 05/21/17 22:30 99 F 81 18 112/65 05/21/17 22:00 99.4 F 80 85 18 112/65 100/47 99 05/21/17 21:44 99.1 F 91 H 18 115/63 05/21/17 20:50 98.7 F 92 H 18 105/58 05/21/17 19:23 99.2 F 76 20 105/49 100 05/21/17 19:00 97.3 F L 60 20 96/49 100 05/21/17 18:53 97.3 F L 56 L 20 90/39 100 05/21/17 18:23 98.1 F 71 18 117/49 100 05/21/17 18:08 99 F 74 18 114/54 100 - Physical Examination General: No Apparent Distress HEENT: Positive: PERRL Neck: Positive: trachea midline Cardiac: Positive: Reg Rate and Rhythm Neuro: Positive: Grossly Intact - Labs and Meds Cardiac Enzymes 05/22/17 Range/Units 06:21 AST 93 H (5-40) units/L CBC 05/22/17 Range/Units 07:40 WBC 12.7 H (4.5-11.0) K/mm3 RBC 2.90 L (3.65-5.03) M/mm3 Hgb 8.5 L (11.8-15.2) gm/dl Hct 26.1 L (35.5-45.6) % Plt Count 303 (140-440) K/mm3 Lymph # 1.0 L (1.2-5.4) K/mm3 [place] # 1.5 H (0.0-0.8) K/mm3 Eos # 0.1 (0.0-0.4) K/mm3 Baso # 0.0 (0.0-0.1) K/mm3 Comprehensive Metabolic Panel 05/22/17 Range/Units 06:21 Sodium 136 L (137-145) mmol/L Potassium 4.4 (3.6-5.0) mmol/L Chloride 98.5 (98-107) mmol/L Carbon Dioxide 24 (22-30) mmol/L BUN 18 (9-20) mg/dL Creatinine 0.9 (0.8-1.5) mg/dL Glucose 175 H (75-100) mg/dL Calcium 7.8 L (8.4-10.2) mg/dL AST 93 H (5-40) units/L ALT 124 H (7-56) units/L Alkaline Phosphatase 76 (35-129) units/L Total Protein 5.8 L (6.3-8.2) g/dL Albumin 2.5 L (3.9-5) g/dL
[2017-05-22] MEDS: PEPCID PO SCH (12:14)
[2017-05-22] MEDS: PLAVIX PO SCH (12:14)
[2017-05-22] MEDS: FOLBEE PLUS CZ PO SCH (12:14)
[2017-05-22] MEDS: COLACE PO SCH ×2 (12:14→21:46)
[2017-05-22] MEDS: LYRICA PO SCH ×2 (12:14)
[2017-05-22] MEDS: SENOKOT PO SCH ×2 (12:15→21:46)
[2017-05-22] MEDS: LOVENOX SUB-Q SCH ×2 (12:32→20:16)
[2017-05-22] MEDS ORDERED: PEPCID PO NR (13:00)
--- NOTE | 2017-05-22 13:05 | Anesthesia Day of Surgery ---
Anesthesia Day of Surgery - Day of Surgery Patient Examined: Yes Patient H&P Reviewed: Yes Patient is NPO: Yes Beta Blockers: No (metoprolol held due to decreased blood pressure this AM) Cardiac Clearance: Yes (cardiology following)
--- NOTE | 2017-05-22 13:09 | Anesthesia Consultation ---
Anesthesia Consult and Med Hx Date of service: 05/22/17 - Airway Anesthetic Teeth Evaluation: Dentures ROM Head & Neck: Adequate Mental/Hyoid Distance: Adequate Mallampati Class: Class II Intubation Access Assessment: Probably Good - Pulmonary Exam CTA: Yes - Cardiac Exam Cardiac Exam: RRR - Pre-Operative Health Status ASA Pre-Surgery Classification: ASA3 Proposed Anesthetic Plan: General - Pulmonary Hx Smoking: Yes (STOPPED 1984 , 1/2 PPD X 25 YRS) Hx Sleep Apnea: No (LOREN PRE SCREEN HIGH RISK) - Cardiovascular System Hx Hypertension: Yes (EF 40-45%, inferior wall hypokinesis) Hx Coronary Artery Disease: Yes (CABG 2005 x 3v) Hx Heart Attack/AMI: Yes Hx Angina: Yes (RARE,NITRO USES 3 YRS AGO) Hx Percutaneous Transluminal Coronary Angioplasty (PTCA): Yes (stents 2002) Hx Cardia Arrhythmia: No Hx Peripheral Vascular Disease: Yes (arterial and DVT (2016)) - Central Nervous System Hx Neuromuscular Disorder: Yes (bilateral LE neuropathy) Hx Psychiatric Problems: No - Gastrointestinal Hx Gastroesophageal Reflux Disease: No - Endocrine Hx Renal Disease: Yes (h/o kidney stones) Hx Insulin Dependent Diabetes: Yes Hx Thyroid Disease: No - Hematic Hx Anemia: Yes Hx Sickle Cell Disease: No - Other Systems Hx Alcohol Use: No Hx Substance Use: No Hx Cancer: No Hx Obesity: No - Additional Comments Anesthesia Medical History Comments: "difficult to put to sleep", patient becomes extremely combative with all narcotics. Patient has been receiving Morphine and [place] on the floor without issue.
[2017-05-22] MEDS ORDERED: XYLOCAINE 1% 20 mL ONE (13:10)
[2017-05-22] MEDS: NACL 0.9% 1000 ML 1,000 ML IV SCH (13:18)
[2017-05-22] MEDS ORDERED: DIPRIVAN 10 MG/ML IV ONE (13:19)
[2017-05-22] MEDS ORDERED: XYLOCAINE MPF 2% ONE (13:20)
[2017-05-22] MEDS ORDERED: ANCEF ONE (14:19)
[2017-05-22] MEDS ORDERED: NACL 0.9% IR ONE (14:31)
--- NOTE | 2017-05-22 16:00 | Operative Report ---
Operative Report Operative Report: Date of Procedure: 05/22/2017 Pre-operative Diagnosis: Nonhealing Left Foot Wound Post-operative Diagnosis: Same Procedure(s): 1. Left Open Transmetatarsal Amputation Surgeon: Elias Meza M.D. [employer] Appraiser: None Anesthesia: Gen. endotracheal anesthesia EBL: 200 mL Counts: Correct Complications: None Condition: Stable Findings: All tissue with bleeding healthy edges. No evidence of mid foot abscess or necrotic tissue within the wound base. Specimen: Left forefoot sent to pathology. Indication: The patient is a 76-year-old male with a history of peripheral vascular disease who is status post left femoral artery to posterior tibial artery bypass with in situ greater saphenous vein graft. He subsequently underwent open amputation of the second and third toes however the wound site has not healed. He is in need of an open transmetatarsal amputation to attempt to salvage his leg. He was given the risk, benefits, and alternative procedures and consented to procedure. Description of Procedure: The patient was brought to the operating room and laid in supine position. After general endotracheal anesthesia was achieved his left foot was prepped and draped in normal sterile fashion. A circumferential incision was created around the foot centered over the distal third of the metatarsals. It was carried down to the metatarsals using cautery. A periosteal elevator was then used to elevate the periosteum from the bones and an oscillating saw was then used to transect the metatarsals. Cautery was then used to transect the remaining muscle and soft tissue of the foot. The specimen was then passed off. Hemostasis within the wound was achieved with a combination of cautery and direct pressure. Once hemostasis was achieved the fill was copiously irrigated and Xeroform gauze was placed over an area of denuded skin. The open portion of the wound was then dressed with Betadine soaked gauze, fluffs, ABDs, Kerlix, and a 4 inch [place] bandage. The patient tolerated the procedure well. All sponge, needle, and instrument counts were correct. The patient was taken to the recovery area in stable condition.
--- NOTE | 2017-05-22 16:17 | Post Anesthesia Evaluation ---
- Post Anesthesia Evaluation Patient Participated: Yes Airway Patent: Yes Stable Respiratory Function: Yes Nausea/Vomiting: No Temp > 96.8F: Yes Pain Manageable: Yes Adequeate Hydration: Yes Anesthesia Complications: No Block Receding Appropriately: Not Applicable Patient on Ventilator: No
--- NOTE | 2017-05-22 18:26 | Progress Note ---
Assessment and Plan Patient has undergone Left Open Transmetatarsal Amputation No complaint of chest pain or shortness of breath.Resting on 2 litres O2 and O2 saturation 97% - Patient Problems (1) Acute deep vein thrombosis (DVT) of left peroneal vein Onset Date: 07/13/16 Current Visit: No Status: Acute Plan to address problem: Patient is on Lovenox 100mg S/C q 12 hours. (2) CAD (coronary artery disease) Current Visit: Yes Status: Chronic Qualifiers: Coronary Disease-Associated Artery/Lesion type: [place] artery [place] vs. transplanted heart: N Associated angina: without angina Plan to address problem: Mangement as per cardiology. (3) IDDM (insulin dependent diabetes mellitus) Current Visit: Yes Status: Chronic Plan to address problem: Management as per primary care. (4) Peripheral neuropathy Current Visit: Yes Status: Chronic Qualifiers: Peripheral neuropathy type: polyneuropathy associated with underlying disease Qualified Code(s): G63 - Polyneuropathy in diseases classified elsewhere Plan to address problem: Management as per primary care. (5) Hypertension Onset Date: 07/13/16 Current Visit: No Status: Chronic Qualifiers: Hypertension type: essential hypertension Qualified Code(s): I10 - Essential (primary) hypertension Plan to address problem: Management as per primary care. Subjective Date of service: 05/22/17 Principal diagnosis: PVD s/p Femoral-Post Tibial Artery Bypass; CAD s/p CABG; Diabetes II Interval history: Patient has undergone Left Open Transmetatarsal Amputation No complaint of chest pain or shortness of breath.Resting on 2 litres O2 and O2 saturation 97% Objective Vital Signs - 12hr 05/22/17 05/22/17 05/22/17 08:00 10:00 12:45 Temperature 98.4 F 98.4 F 98.7 F Pulse Rate 89 88 Pulse Rate [ 89 89 From Monitor] Respiratory 20 20 22 Rate Blood Pressure 133/51 137/75 Blood Pressure 133/51 133/51 [Left Arm] O2 Sat by Pulse 100 100 100 Oximetry 05/22/17 05/22/17 17:03 17:58 Temperature 98.6 F 98.6 F Pulse Rate Pulse Rate [ 83 85 From Monitor] Respiratory 18 18 Rate Blood Pressure Blood Pressure 143/68 133/61 [Left Arm] O2 Sat by Pulse 94 97 Oximetry Constitutional: no acute distress, alert Eyes: non-icteric ENT: oropharynx moist Neck: supple, no lymphadenopathy Effort: mildly labored Ascultation: Bilateral: diminished breath sounds Cardiovascular: regular rate and rhythm Gastrointestinal: normoactive bowel sounds, soft, non-tender Integumentary: cellulitis (Left foot.) Extremities: no cyanosis, no edema, other (left foot in clean dressing and MIKALA bandage) Neurologic: normal mental status, non-focal exam, pupils equal and round, motor strength normal and Psychiatric: mood appropriate, affect normal CBC and BMP: 05/22/17 07:40 05/22/17 06:21 ABG, PT/INR, D-dimer: PT/INR, D-dimer PT 14.0 Sec. (12.2-14.9) 05/12/17 11:41 INR 1.09 (0.87-1.13) 05/12/17 11:41 Abnormal lab findings: Abnormal Labs 05/01/17 05/01/17 05/01/17 14:55 14:55 14:55 WBC 12.0 H RBC Hgb POC Hgb Hct POC Hct RDW 12.9 L Lymph % (Auto) 6.3 L [place] % (Auto) Lymph # 0.8 L [place] # 0.9 H Seg Neutrophils % 85.9 H Lymphocytes % (Manual) Monocytes % (Manual) Seg Neutrophils # 10.3 H INR 1.15 H APTT 37.7 H Heparin Anti-Xa Level POC Sodium POC Potassium Sodium Potassium Chloride 97.8 L Carbon Dioxide POC BUN BUN 23 H Creatinine Glucose 321 H POC Glucose Hemoglobin A1c Calcium AST ALT Total Protein Albumin Crossmatch 05/01/17 05/01/17 05/02/17 18:32 21:49 03:51 WBC RBC Hgb POC Hgb Hct POC Hct RDW 12.8 L Lymph % (Auto) [place] % (Auto) 12.4 H Lymph # [place] # 1.0 H Seg Neutrophils % Lymphocytes % (Manual) Monocytes % (Manual) Seg Neutrophils # INR APTT Heparin Anti-Xa Level POC Sodium POC Potassium Sodium Potassium Chloride Carbon Dioxide POC BUN BUN Creatinine Glucose POC Glucose 247 H 280 H Hemoglobin A1c Calcium AST ALT Total Protein Albumin Crossmatch 05/02/17 05/02/17 05/02/17 03:51 03:51 07:27 WBC RBC Hgb POC Hgb Hct POC Hct RDW Lymph % (Auto) [place] % (Auto) Lymph # [place] # Seg Neutrophils % Lymphocytes % (Manual) Monocytes % (Manual) Seg Neutrophils # INR APTT Heparin Anti-Xa Level 0.22 L POC Sodium POC Potassium Sodium Potassium Chloride Carbon Dioxide POC BUN BUN Creatinine Glucose 136 H POC Glucose 115 H Hemoglobin A1c Calcium AST ALT Total Protein Albumin Crossmatch 05/02/17 05/02/17 05/02/17 11:50 20:33 21:56 WBC RBC Hgb POC Hgb Hct POC Hct RDW Lymph % (Auto) [place] % (Auto) Lymph # [place] # Seg Neutrophils % Lymphocytes % (Manual) Monocytes % (Manual) Seg Neutrophils # INR APTT Heparin Anti-Xa Level 0.24 L POC Sodium POC Potassium Sodium Potassium Chloride Carbon Dioxide POC BUN BUN Creatinine Glucose POC Glucose 165 H 248 H Hemoglobin A1c Calcium AST ALT Total Protein Albumin Crossmatch 05/03/17 05/03/17 05/03/17 03:23 05:14 05:14 WBC RBC Hgb POC Hgb Hct POC Hct RDW 12.8 L Lymph % (Auto) [place] % (Auto) 14.1 H Lymph # [place] # 1.2 H Seg Neutrophils % Lymphocytes % (Manual) Monocytes % (Manual) Seg Neutrophils # INR APTT 101.1 H* Heparin Anti-Xa Level POC Sodium POC Potassium Sodium 136 L Potassium Chloride Carbon Dioxide POC BUN BUN Creatinine Glucose 116 H POC Glucose Hemoglobin A1c Calcium AST ALT Total Protein Albumin 3.0 L Crossmatch 05/03/17 05/03/17 05/03/17 05:14 11:48 11:51 WBC RBC Hgb POC Hgb Hct POC Hct RDW Lymph % (Auto) [place] % (Auto) Lymph # [place] # Seg Neutrophils % Lymphocytes % (Manual) Monocytes % (Manual) Seg Neutrophils # INR APTT Heparin Anti-Xa Level 0.26 L POC Sodium POC Potassium Sodium Potassium Chloride Carbon Dioxide POC BUN BUN Creatinine Glucose POC Glucose 128 H Hemoglobin A1c 10.2 H Calcium AST ALT Total Protein Albumin Crossmatch 05/03/17 05/03/17 05/04/17 18:50 22:17 04:02 WBC RBC Hgb POC Hgb Hct POC Hct RDW 12.9 L Lymph % (Auto) [place] % (Auto) Lymph # [place] # Seg Neutrophils % Lymphocytes % (Manual) 13.0 L Monocytes % (Manual) 9.0 H Seg Neutrophils # INR APTT Heparin Anti-Xa Level POC Sodium POC Potassium Sodium Potassium Chloride Carbon Dioxide POC BUN BUN Creatinine Glucose POC Glucose 314 H 312 H Hemoglobin A1c Calcium AST ALT Total Protein Albumin Crossmatch 05/04/17 05/04/17 05/04/17 04:02 07:49 11:54 WBC RBC Hgb POC Hgb Hct POC Hct RDW Lymph % (Auto) [place] % (Auto) Lymph # [place] # Seg Neutrophils % Lymphocytes % (Manual) Monocytes % (Manual) Seg Neutrophils # INR APTT Heparin Anti-Xa Level POC Sodium POC Potassium Sodium 134 L Potassium 5.2 H Chloride 96.2 L Carbon Dioxide POC BUN BUN 21 H Creatinine Glucose 251 H POC Glucose 177 H 186 H Hemoglobin A1c Calcium AST ALT Total Protein Albumin 3.0 L Crossmatch 05/04/17 05/04/17 05/05/17 17:46 22:51 05:09 WBC RBC Hgb POC Hgb Hct POC Hct RDW Lymph % (Auto) [place] % (Auto) Lymph # [place] # Seg Neutrophils % Lymphocytes % (Manual) Monocytes % (Manual) Seg Neutrophils # INR APTT Heparin Anti-Xa Level POC Sodium POC Potassium Sodium 135 L Potassium Chloride Carbon Dioxide POC BUN BUN Creatinine Glucose 179 H POC Glucose 244 H 265 H Hemoglobin A1c Calcium AST ALT Total Protein Albumin 2.9 L Crossmatch 05/05/17 05/05/17 05/05/17 05:09 07:39 11:24 WBC RBC Hgb POC Hgb Hct POC Hct RDW Lymph % (Auto) [place] % (Auto) Lymph # [place] # Seg Neutrophils % Lymphocytes % (Manual) Monocytes % (Manual) Seg Neutrophils # INR APTT Heparin Anti-Xa Level 0.15 L 0.29 L POC Sodium POC Potassium Sodium Potassium Chloride Carbon Dioxide POC BUN BUN Creatinine Glucose POC Glucose 153 H Hemoglobin A1c Calcium AST ALT Total Protein Albumin Crossmatch 05/05/17 05/05/17 05/05/17 11:53 16:33 22:05 WBC RBC Hgb POC Hgb Hct POC Hct RDW Lymph % (Auto) [place] % (Auto) Lymph # [place] # Seg Neutrophils % Lymphocytes % (Manual) Monocytes % (Manual) Seg Neutrophils # INR APTT Heparin Anti-Xa Level POC Sodium POC Potassium Sodium Potassium Chloride Carbon Dioxide POC BUN BUN Creatinine Glucose POC Glucose 171 H 317 H 313 H Hemoglobin A1c Calcium AST ALT Total Protein Albumin Crossmatch 05/06/17 05/06/17 05/06/17 07:32 11:47 16:28 WBC RBC Hgb POC Hgb Hct POC Hct RDW Lymph % (Auto) [place] % (Auto) Lymph # [place] # Seg Neutrophils % Lymphocytes % (Manual) Monocytes % (Manual) Seg Neutrophils # INR APTT Heparin Anti-Xa Level POC Sodium POC Potassium Sodium Potassium Chloride Carbon Dioxide POC BUN BUN Creatinine Glucose POC Glucose 176 H 210 H 283 H Hemoglobin A1c Calcium AST ALT Total Protein Albumin Crossmatch 05/06/17 05/07/17 05/07/17 21:33 03:56 07:11 WBC RBC Hgb POC Hgb Hct POC Hct RDW Lymph % (Auto) [place] % (Auto) Lymph # [place] # Seg Neutrophils % Lymphocytes % (Manual) Monocytes % (Manual) Seg Neutrophils # INR APTT Heparin Anti-Xa Level 0.10 L POC Sodium POC Potassium Sodium Potassium Chloride Carbon Dioxide POC BUN BUN Creatinine Glucose POC Glucose 264 H 276 H Hemoglobin A1c Calcium AST ALT Total Protein Albumin Crossmatch 05/07/17 05/07/17 05/07/17 11:48 11:48 16:11 WBC RBC Hgb POC Hgb Hct POC Hct RDW Lymph % (Auto) [place] % (Auto) Lymph # [place] # Seg Neutrophils % Lymphocytes % (Manual) Monocytes % (Manual) Seg Neutrophils # INR APTT Heparin Anti-Xa Level POC Sodium 137 L POC Potassium 5.5 H Sodium Potassium Chloride Carbon Dioxide POC BUN 31 H BUN Creatinine Glucose POC Glucose 128 H 158 H Hemoglobin A1c Calcium AST ALT Total Protein Albumin Crossmatch See Detail 05/07/17 05/07/17 05/07/17 16:44 20:28 22:47 WBC RBC Hgb POC Hgb 11.6 L Hct POC Hct 34 L RDW Lymph % (Auto) [place] % (Auto) Lymph # [place] # Seg Neutrophils % Lymphocytes % (Manual) Monocytes % (Manual) Seg Neutrophils # INR APTT Heparin Anti-Xa Level POC Sodium POC Potassium 5.0 H Sodium Potassium Chloride Carbon Dioxide POC BUN 27 H BUN Creatinine Glucose POC Glucose 170 H 203 H 253 H Hemoglobin A1c Calcium AST ALT Total Protein Albumin Crossmatch 05/08/17 05/08/17 05/08/17 04:23 07:57 12:01 WBC RBC Hgb POC Hgb Hct POC Hct RDW Lymph % (Auto) [place] % (Auto) Lymph # [place] # Seg Neutrophils % Lymphocytes % (Manual) Monocytes % (Manual) Seg Neutrophils # INR APTT Heparin Anti-Xa Level POC Sodium POC Potassium Sodium Potassium 5.3 H D Chloride Carbon Dioxide 19 L POC BUN BUN 29 H Creatinine Glucose 223 H POC Glucose 258 H 282 H Hemoglobin A1c Calcium 8.2 L AST ALT Total Protein Albumin Crossmatch 05/08/17 05/08/17 05/08/17 15:42 19:44 21:39 WBC RBC Hgb POC Hgb Hct POC Hct RDW Lymph % (Auto) [place] % (Auto) Lymph # [place] # Seg Neutrophils % Lymphocytes % (Manual) Monocytes % (Manual) Seg Neutrophils # INR APTT Heparin Anti-Xa Level 0.25 L POC Sodium POC Potassium Sodium Potassium Chloride Carbon Dioxide POC BUN BUN Creatinine Glucose POC Glucose 280 H 329 H Hemoglobin A1c Calcium AST ALT Total Protein Albumin Crossmatch 05/09/17 05/09/17 05/09/17 01:52 08:27 12:02 WBC RBC Hgb POC Hgb Hct POC Hct RDW Lymph % (Auto) [place] % (Auto) Lymph # [place] # Seg Neutrophils % Lymphocytes % (Manual) Monocytes % (Manual) Seg Neutrophils # INR APTT Heparin Anti-Xa Level 0.29 L POC Sodium POC Potassium Sodium Potassium Chloride Carbon Dioxide POC BUN BUN Creatinine Glucose POC Glucose 187 H 190 H Hemoglobin A1c Calcium AST ALT Total Protein Albumin Crossmatch 05/09/17 05/09/17 05/10/17 16:42 21:58 03:41 WBC 13.4 H RBC 3.61 L Hgb 10.8 L POC Hgb Hct 31.9 L POC Hct RDW 13.1 L Lymph % (Auto) 12.9 L [place] % (Auto) 12.2 H Lymph # [place] # 1.6 H Seg Neutrophils % 74.1 H Lymphocytes % (Manual) Monocytes % (Manual) Seg Neutrophils # 10.0 H INR APTT Heparin Anti-Xa Level POC Sodium POC Potassium Sodium Potassium Chloride Carbon Dioxide POC BUN BUN Creatinine Glucose POC Glucose 245 H 344 H Hemoglobin A1c Calcium AST ALT Total Protein Albumin Crossmatch 05/10/17 05/10/17 05/10/17 03:41 07:31 12:08 WBC RBC Hgb POC Hgb Hct POC Hct RDW Lymph % (Auto) [place] % (Auto) Lymph # [place] # Seg Neutrophils % Lymphocytes % (Manual) Monocytes % (Manual) Seg Neutrophils # INR APTT Heparin Anti-Xa Level POC Sodium POC Potassium Sodium 134 L Potassium Chloride Carbon Dioxide 21 L POC BUN BUN Creatinine Glucose 171 H POC Glucose 127 H 172 H Hemoglobin A1c Calcium 8.2 L AST 51 H ALT Total Protein Albumin 2.2 L Crossmatch 05/10/17 05/10/17 05/11/17 16:28 21:04 05:03 WBC 19.1 H RBC 3.64 L Hgb 10.7 L POC Hgb Hct 32.1 L POC Hct RDW Lymph % (Auto) 11.8 L [place] % (Auto) 10.8 H Lymph # [place] # 2.1 H Seg Neutrophils % 75.6 H Lymphocytes % (Manual) Monocytes % (Manual) Seg Neutrophils # 14.4 H INR APTT Heparin Anti-Xa Level POC Sodium POC Potassium Sodium Potassium Chloride Carbon Dioxide POC BUN BUN Creatinine Glucose POC Glucose 197 H 295 H Hemoglobin A1c Calcium AST ALT Total Protein Albumin Crossmatch 05/11/17 05/11/17 05/11/17 05:03 07:30 09:52 WBC RBC Hgb POC Hgb Hct POC Hct RDW Lymph % (Auto) [place] % (Auto) Lymph # [place] # Seg Neutrophils % Lymphocytes % (Manual) Monocytes % (Manual) Seg Neutrophils # INR APTT Heparin Anti-Xa Level POC Sodium POC Potassium Sodium Potassium 5.2 H Chloride Carbon Dioxide POC BUN BUN Creatinine Glucose 143 H POC Glucose 118 H 124 H Hemoglobin A1c Calcium AST 51 H ALT Total Protein Albumin 2.7 L Crossmatch 05/11/17 05/11/17 05/11/17 11:32 12:22 16:22 WBC RBC Hgb POC Hgb Hct POC Hct RDW Lymph % (Auto) [place] % (Auto) Lymph # [place] # Seg Neutrophils % Lymphocytes % (Manual) Monocytes % (Manual) Seg Neutrophils # INR APTT Heparin Anti-Xa Level < 0.10 L POC Sodium POC Potassium Sodium Potassium Chloride Carbon Dioxide POC BUN BUN Creatinine Glucose POC Glucose 119 H 197 H Hemoglobin A1c Calcium AST ALT Total Protein Albumin Crossmatch 05/11/17 05/12/17 05/12/17 22:06 05:35 05:35 WBC RBC 3.64 L Hgb 10.8 L POC Hgb Hct 32.5 L POC Hct RDW Lymph % (Auto) 8.0 L [place] % (Auto) 12.8 H Lymph # 0.8 L [place] # 1.3 H Seg Neutrophils % 77.9 H Lymphocytes % (Manual) Monocytes % (Manual) Seg Neutrophils # 8.2 H INR APTT Heparin Anti-Xa Level POC Sodium POC Potassium Sodium 136 L Potassium Chloride Carbon Dioxide POC BUN BUN Creatinine Glucose 210 H POC Glucose 296 H Hemoglobin A1c Calcium 8.3 L AST ALT Total Protein 6.2 L Albumin 2.6 L Crossmatch 05/12/17 05/12/17 05/12/17 07:26 11:30 11:41 WBC RBC Hgb 11.4 L POC Hgb Hct 35.1 L POC Hct RDW Lymph % (Auto) [place] % (Auto) Lymph # [place] # Seg Neutrophils % Lymphocytes % (Manual) Monocytes % (Manual) Seg Neutrophils # INR APTT Heparin Anti-Xa Level POC Sodium POC Potassium Sodium Potassium Chloride Carbon Dioxide POC BUN BUN Creatinine Glucose POC Glucose 171 H 126 H Hemoglobin A1c Calcium AST ALT Total Protein Albumin Crossmatch 05/12/17 05/12/17 05/12/17 16:23 21:14 21:50 WBC RBC Hgb POC Hgb Hct POC Hct RDW Lymph % (Auto) [place] % (Auto) Lymph # [place] # Seg Neutrophils % Lymphocytes % (Manual) Monocytes % (Manual) Seg Neutrophils # INR APTT Heparin Anti-Xa Level 0.22 L POC Sodium POC Potassium Sodium Potassium Chloride Carbon Dioxide POC BUN BUN Creatinine Glucose POC Glucose 223 H 308 H Hemoglobin A1c Calcium AST ALT Total Protein Albumin Crossmatch 05/13/17 05/13/17 05/13/17 04:21 07:24 11:46 WBC RBC Hgb POC Hgb Hct POC Hct RDW Lymph % (Auto) [place] % (Auto) Lymph # [place] # Seg Neutrophils % Lymphocytes % (Manual) Monocytes % (Manual) Seg Neutrophils # INR APTT Heparin Anti-Xa Level 0.23 L POC Sodium POC Potassium Sodium Potassium Chloride Carbon Dioxide POC BUN BUN Creatinine Glucose POC Glucose 112 H 206 H Hemoglobin A1c Calcium AST ALT Total Protein Albumin Crossmatch 05/13/17 05/13/17 05/13/17 11:57 16:42 21:44 WBC RBC Hgb POC Hgb Hct POC Hct RDW Lymph % (Auto) [place] % (Auto) Lymph # [place] # Seg Neutrophils % Lymphocytes % (Manual) Monocytes % (Manual) Seg Neutrophils # INR APTT Heparin Anti-Xa Level 0.21 L POC Sodium POC Potassium Sodium Potassium Chloride Carbon Dioxide POC BUN BUN Creatinine Glucose POC Glucose 217 H 245 H Hemoglobin A1c Calcium AST ALT Total Protein Albumin Crossmatch 05/14/17 05/14/17 05/14/17 07:13 16:03 21:01 WBC RBC Hgb 10.9 L POC Hgb Hct 33.1 L POC Hct RDW Lymph % (Auto) [place] % (Auto) Lymph # [place] # Seg Neutrophils % Lymphocytes % (Manual) Monocytes % (Manual) Seg Neutrophils # INR APTT Heparin Anti-Xa Level POC Sodium POC Potassium Sodium Potassium Chloride Carbon Dioxide POC BUN BUN Creatinine Glucose POC Glucose 144 H 262 H Hemoglobin A1c Calcium AST ALT Total Protein Albumin Crossmatch 05/15/17 05/15/17 05/15/17 07:39 11:31 16:24 WBC RBC Hgb POC Hgb Hct POC Hct RDW Lymph % (Auto) [place] % (Auto) Lymph # [place] # Seg Neutrophils % Lymphocytes % (Manual) Monocytes % (Manual) Seg Neutrophils # INR APTT Heparin Anti-Xa Level POC Sodium POC Potassium Sodium Potassium Chloride Carbon Dioxide POC BUN BUN Creatinine Glucose POC Glucose 246 H 297 H 319 H Hemoglobin A1c Calcium AST ALT Total Protein Albumin Crossmatch 05/15/17 05/16/17 05/16/17 20:55 07:39 09:03 WBC RBC Hgb 8.4 L POC Hgb Hct 25.9 L D POC Hct RDW Lymph % (Auto) [place] % (Auto) Lymph # [place] # Seg Neutrophils % Lymphocytes % (Manual) Monocytes % (Manual) Seg Neutrophils # INR APTT Heparin Anti-Xa Level POC Sodium POC Potassium Sodium Potassium Chloride Carbon Dioxide POC BUN BUN Creatinine Glucose POC Glucose 344 H 110 H Hemoglobin A1c Calcium AST ALT Total Protein Albumin Crossmatch 05/16/17 05/16/17 05/16/17 11:51 16:48 23:09 WBC RBC Hgb POC Hgb Hct POC Hct RDW Lymph % (Auto) [place] % (Auto) Lymph # [place] # Seg Neutrophils % Lymphocytes % (Manual) Monocytes % (Manual) Seg Neutrophils # INR APTT Heparin Anti-Xa Level POC Sodium POC Potassium Sodium Potassium Chloride Carbon Dioxide POC BUN BUN Creatinine Glucose POC Glucose 119 H 188 H 219 H Hemoglobin A1c Calcium AST ALT Total Protein Albumin Crossmatch 05/17/17 05/17/17 05/17/17 04:39 04:39 07:34 WBC 18.6 H RBC 2.64 L Hgb 7.6 L POC Hgb Hct 23.3 L POC Hct RDW Lymph % (Auto) 7.2 L [place] % (Auto) 13.3 H Lymph # [place] # 2.5 H Seg Neutrophils % 79.2 H Lymphocytes % (Manual) Monocytes % (Manual) Seg Neutrophils # 14.8 H INR APTT Heparin Anti-Xa Level POC Sodium POC Potassium Sodium 133 L Potassium Chloride 95.5 L Carbon Dioxide POC BUN BUN 26 H Creatinine 1.6 H D Glucose 183 H POC Glucose 144 H Hemoglobin A1c Calcium 8.2 L AST 154 H ALT 79 H Total Protein Albumin 2.6 L Crossmatch 05/17/17 05/17/17 05/17/17 09:17 16:23 22:37 WBC RBC Hgb 8.3 L POC Hgb Hct 24.8 L POC Hct RDW Lymph % (Auto) [place] % (Auto) Lymph # [place] # Seg Neutrophils % Lymphocytes % (Manual) Monocytes % (Manual) Seg Neutrophils # INR APTT Heparin Anti-Xa Level POC Sodium POC Potassium Sodium Potassium Chloride Carbon Dioxide POC BUN BUN Creatinine Glucose POC Glucose 145 H 207 H Hemoglobin A1c Calcium AST ALT Total Protein Albumin Crossmatch 05/18/17 05/18/17 05/18/17 04:23 04:23 07:37 WBC 19.8 H RBC 2.73 L Hgb 7.9 L POC Hgb Hct 24.2 L POC Hct RDW Lymph % (Auto) 6.1 L [place] % (Auto) 13.8 H Lymph # [place] # 2.7 H Seg Neutrophils % 79.8 H Lymphocytes % (Manual) Monocytes % (Manual) Seg Neutrophils # 15.8 H INR APTT Heparin Anti-Xa Level POC Sodium POC Potassium Sodium 133 L Potassium Chloride 93.3 L Carbon Dioxide POC BUN BUN 26 H Creatinine Glucose 145 H POC Glucose 144 H Hemoglobin A1c Calcium AST 189 H ALT 101 H Total Protein Albumin 2.7 L Crossmatch 05/18/17 05/18/17 05/18/17 11:24 16:48 19:26 WBC RBC Hgb POC Hgb Hct POC Hct RDW Lymph % (Auto) [place] % (Auto) Lymph # [place] # Seg Neutrophils % Lymphocytes % (Manual) Monocytes % (Manual) Seg Neutrophils # INR APTT Heparin Anti-Xa Level 0.20 L POC Sodium POC Potassium Sodium Potassium Chloride Carbon Dioxide POC BUN BUN Creatinine Glucose POC Glucose 142 H 226 H Hemoglobin A1c Calcium AST ALT Total Protein Albumin Crossmatch 05/18/17 05/19/17 05/19/17 21:53 07:27 12:38 WBC RBC Hgb POC Hgb Hct POC Hct RDW Lymph % (Auto) [place] % (Auto) Lymph # [place] # Seg Neutrophils % Lymphocytes % (Manual) Monocytes % (Manual) Seg Neutrophils # INR APTT Heparin Anti-Xa Level POC Sodium POC Potassium Sodium Potassium Chloride Carbon Dioxide POC BUN BUN Creatinine Glucose POC Glucose 275 H 164 H 266 H Hemoglobin A1c Calcium AST ALT Total Protein Albumin Crossmatch 05/19/17 05/19/17 05/19/17 13:03 16:25 22:19 WBC 19.4 H RBC 2.68 L Hgb 7.7 L POC Hgb Hct 23.7 L POC Hct RDW Lymph % (Auto) 5.7 L [place] % (Auto) 11.2 H Lymph # 1.1 L [place] # 2.2 H Seg Neutrophils % 82.9 H Lymphocytes % (Manual) Monocytes % (Manual) Seg Neutrophils # 16.1 H INR APTT Heparin Anti-Xa Level POC Sodium POC Potassium Sodium Potassium Chloride Carbon Dioxide POC BUN BUN Creatinine Glucose POC Glucose 253 H 182 H Hemoglobin A1c Calcium AST ALT Total Protein Albumin Crossmatch 05/20/17 05/20/17 05/20/17 07:14 07:14 16:11 WBC 17.6 H RBC 2.77 L Hgb 7.8 L 7.9 L POC Hgb Hct 23.7 L 24.8 L POC Hct RDW Lymph % (Auto) 8.2 L [place] % (Auto) 11.7 H Lymph # [place] # 2.1 H Seg Neutrophils % 79.1 H Lymphocytes % (Manual) Monocytes % (Manual) Seg Neutrophils # 14.0 H INR APTT Heparin Anti-Xa Level POC Sodium POC Potassium Sodium Potassium Chloride Carbon Dioxide POC BUN BUN Creatinine Glucose POC Glucose 142 H Hemoglobin A1c Calcium AST ALT Total Protein Albumin Crossmatch 05/20/17 05/21/17 05/21/17 21:49 03:58 03:58 WBC 13.1 H RBC 2.34 L Hgb 6.7 L POC Hgb Hct 20.8 L POC Hct RDW Lymph % (Auto) 9.0 L [place] % (Auto) 11.1 H Lymph # [place] # 1.5 H Seg Neutrophils % 79.0 H Lymphocytes % (Manual) Monocytes % (Manual) Seg Neutrophils # 10.3 H INR APTT Heparin Anti-Xa Level POC Sodium POC Potassium Sodium 134 L Potassium Chloride 97.2 L Carbon Dioxide POC BUN BUN Creatinine Glucose 115 H POC Glucose 240 H Hemoglobin A1c Calcium 7.9 L AST 154 H ALT 137 H Total Protein Albumin 2.2 L Crossmatch 05/21/17 05/21/17 05/21/17 10:51 11:53 16:23 WBC RBC Hgb POC Hgb Hct POC Hct RDW Lymph % (Auto) [place] % (Auto) Lymph # [place] # Seg Neutrophils % Lymphocytes % (Manual) Monocytes % (Manual) Seg Neutrophils # INR APTT Heparin Anti-Xa Level POC Sodium POC Potassium Sodium Potassium Chloride Carbon Dioxide POC BUN BUN Creatinine Glucose POC Glucose 158 H 206 H Hemoglobin A1c Calcium AST ALT Total Protein Albumin Crossmatch See Detail 05/21/17 05/22/17 05/22/17 23:02 06:21 07:20 WBC RBC Hgb POC Hgb Hct POC Hct RDW Lymph % (Auto) [place] % (Auto) Lymph # [place] # Seg Neutrophils % Lymphocytes % (Manual) Monocytes % (Manual) Seg Neutrophils # INR APTT Heparin Anti-Xa Level POC Sodium POC Potassium Sodium 136 L Potassium Chloride Carbon Dioxide POC BUN BUN Creatinine Glucose 175 H POC Glucose 357 H 193 H Hemoglobin A1c Calcium 7.8 L AST 93 H ALT 124 H Total Protein 5.8 L Albumin 2.5 L Crossmatch 05/22/17 05/22/17 05/22/17 07:40 11:30 17:25 WBC 12.7 H RBC 2.90 L Hgb 8.5 L POC Hgb Hct 26.1 L POC Hct RDW Lymph % (Auto) 8.2 L [place] % (Auto) 11.5 H Lymph # 1.0 L [place] # 1.5 H Seg Neutrophils % 79.5 H Lymphocytes % (Manual) Monocytes % (Manual) Seg Neutrophils # 10.1 H INR APTT Heparin Anti-Xa Level POC Sodium POC Potassium Sodium Potassium Chloride Carbon Dioxide POC BUN BUN Creatinine Glucose POC Glucose 136 H 153 H Hemoglobin A1c Calcium AST ALT Total Protein Albumin Crossmatch
[2017-05-22] MEDS: MORPHINE IV PRN ×2 (18:50→21:52)
[2017-05-22] MEDS ORDERED: VANCOMYCIN 2,000 MG in NACL 0.9% 500 ML 500 ML IV ONE (20:00)
[2017-05-22] MEDS ORDERED: VANCOMYCIN/NS 1 GM/250 ML 1 GM/250 ML BAG IV SCH (20:00)
[2017-05-22] MEDS: ZOSYN/NS 3.375GM/50ML 3.375 GM/50 ML BAG IV SCH (21:47)
[2017-05-22] MEDS ORDERED: ZOSYN/NS 4.5GM/100ML 4.5 GM/100 ML VIAL IV SCH (22:00)
[2017-05-22] MEDS: LEVEMIR SUB-Q SCH (22:05)
[2017-05-23] MEDS: LOVENOX SUB-Q SCH ×2 (00:58→12:15)
[2017-05-23] MEDS: MORPHINE IV PRN ×2 (03:14→12:20)
[2017-05-23] MEDS: ZOSYN/NS 3.375GM/50ML 3.375 GM/50 ML BAG IV SCH ×3 (05:22→22:05)
[2017-05-23] MEDS: VANCOMYCIN 1,500 MG in NACL 0.9% 500 ML 500 ML IV SCH (07:10)
[2017-05-23] MEDS: NOVOLOG SUB-Q SCH ×3 (07:25→16:48)
[2017-05-23 07:45] LABS: Basophils % (Auto) 0.2 % (0.0-1.8); Eosinophils % (Auto) 0.7 % (0.0-4.3); Hematocrit 24.7 % (35.5-45.6); Hemoglobin 8.1 gm/dl (11.8-15.2); Mean Corpuscular HGB Conc 33 % (32-34); Mean Corpuscular Hemoglobin 29 pg (28-32); Mean Corpuscular Volume 88 fl (84-94); Platelet Count 299 K/mm3 (140-440); Red Blood Count 2.79 M/mm3 (3.65-5.03); Red Cell Distribution Width 14.3 % (13.2-15.2); White Blood Count 14.1 K/mm3 (4.5-11.0)
[2017-05-23 07:55] LABS: Alanine Aminotransferase 95 units/L (7-56); Albumin/Globulin Ratio 0.5 %; Alkaline Phosphatase 70 units/L (35-129); Anion Gap 19 mmol/L; BUN/Creatinine Ratio 14.44; Blood Urea Nitrogen 13 mg/dL (9-20); Carbon Dioxide 21 mmol/L (22-30); Chloride 102.5 mmol/L (98-107); Glucose 71 mg/dL (75-100); Potassium 4.2 mmol/L (3.6-5.0); Sodium 138 mmol/L (137-145); Total Protein 6.2 g/dL (6.3-8.2)
[2017-05-23] MEDS: LYRICA PO SCH ×2 (09:27)
[2017-05-23] MEDS: FOLBEE PLUS CZ PO SCH (09:27)
[2017-05-23] MEDS: SENOKOT PO SCH ×2 (09:27→22:20)
[2017-05-23] MEDS: TOPROL XL PO SCH (09:28)
[2017-05-23] MEDS: ZESTRIL PO SCH (09:28)
[2017-05-23] MEDS: COLACE PO SCH ×2 (09:29→22:45)
[2017-05-23] MEDS: PLAVIX PO SCH (09:29)
[2017-05-23] MEDS: NORCO 5/325 PO PRN (09:30)
--- NOTE | 2017-05-23 10:06 | Progress Note ---
Assessment and Plan PVD with left foot gangrene s/p Diagnostic Left Lower Extremity Arteriogram, Angioplasty and Stent of Left External Leg Artery, left Femoral Endarterectomy, and Left Femoral Artery to Posterior Tibial Artery Bypass With In Situ Left Greater Saphenous Vein Graft s/p left open transmetatarsal amputation CAD s/p CABG Nuclear stress test showing no ischemia, fixed inferior and inferolateral wall defect consistent with prior PA, LVEF 46% Echo showing LVEF 40-45% with inferior wall hypokinesis and mild aortic stenosis Hyperlipidemia Hypertension Recommendations: Continue medical therapy for coronary artery disease. Conservative cardiac management. Subjective Date of service: 05/23/17 Principal diagnosis: PVD s/p Femoral-Post Tibial Artery Bypass; CAD s/p CABG; Diabetes II Interval history: No cardiac complaints. Objective Vital Signs Temp Pulse Pulse Resp BP BP Pulse Ox 05/23/17 09:28 95 H 120/58 05/23/17 09:25 99.9 F H 95 H 20 120/58 05/22/17 22:00 99.4 F 90 84 20 133/61 100 05/22/17 17:58 98.6 F 85 18 133/61 97 05/22/17 17:03 98.6 F 83 18 143/68 94 05/22/17 16:30 83 17 128/58 95 05/22/17 16:15 84 15 124/49 96 05/22/17 16:00 81 18 127/58 99 05/22/17 15:45 82 13 127/59 94 05/22/17 15:30 80 11 L 131/58 96 05/22/17 15:15 82 12 124/61 94 05/22/17 15:00 80 13 115/55 95 05/22/17 14:55 83 14 116/54 96 05/22/17 14:50 82 17 110/54 96 05/22/17 14:44 97.1 F L 82 20 105/61 95 05/22/17 12:45 98.7 F 88 22 137/75 100 - Physical Examination General: No Apparent Distress HEENT: Positive: PERRL Neck: Positive: trachea midline Cardiac: Positive: Reg Rate and Rhythm - Labs and Meds Cardiac Enzymes 05/23/17 Range/Units 06:18 AST 76 H (5-40) units/L CBC 05/23/17 Range/Units 06:18 WBC 14.1 H (4.5-11.0) K/mm3 RBC 2.79 L (3.65-5.03) M/mm3 Hgb 8.1 L (11.8-15.2) gm/dl Hct 24.7 L (35.5-45.6) % Plt Count 299 (140-440) K/mm3 Lymph # 1.4 (1.2-5.4) K/mm3 [place] # 1.8 H (0.0-0.8) K/mm3 Eos # 0.1 (0.0-0.4) K/mm3 Baso # 0.0 (0.0-0.1) K/mm3 Comprehensive Metabolic Panel 05/23/17 Range/Units 06:18 Sodium 138 (137-145) mmol/L Potassium 4.2 (3.6-5.0) mmol/L Chloride 102.5 (98-107) mmol/L Carbon Dioxide 21 L (22-30) mmol/L BUN 13 (9-20) mg/dL Creatinine 0.9 (0.8-1.5) mg/dL Glucose 71 L (75-100) mg/dL Calcium 8.0 L (8.4-10.2) mg/dL AST 76 H (5-40) units/L ALT 95 H (7-56) units/L Alkaline Phosphatase 70 (35-129) units/L Total Protein 6.2 L (6.3-8.2) g/dL Albumin 2.0 L (3.9-5) g/dL
[2017-05-23] MEDS: NACL 0.9% 1000 ML 1,000 ML IV SCH (10:53)
[2017-05-23] MEDS: PEPCID PO SCH (10:55)
--- NOTE | 2017-05-23 14:46 | XRay Report ---
AP CHEST: HISTORY: PICC placement A right arm PICC has been inserted which terminates in the mid to lower SVC. Previous CABG changes are noted. There is borderline to mild cardiomegaly with normal pulmonary vascularity. The lungs are clear. No acute process is noted. IMPRESSION: Right arm PICC as described.
--- NOTE | 2017-05-23 15:35 | Progress Note ---
Assessment and Plan Patient has undergone Left Open Transmetatarsal Amputation No complaint of chest pain or shortness of breath.Resting on room air and O2 saturation 98% - Patient Problems (1) Acute deep vein thrombosis (DVT) of left peroneal vein Onset Date: 07/13/16 Current Visit: No Status: Acute Plan to address problem: Patient is on Lovenox 100mg S/C q 12 hours. (2) CAD (coronary artery disease) Current Visit: Yes Status: Chronic Qualifiers: Coronary Disease-Associated Artery/Lesion type: [place] artery [place] vs. transplanted heart: N Associated angina: without angina Plan to address problem: Mangement as per cardiology. (3) IDDM (insulin dependent diabetes mellitus) Current Visit: Yes Status: Chronic Plan to address problem: Management as per primary care. (4) Peripheral neuropathy Current Visit: Yes Status: Chronic Qualifiers: Peripheral neuropathy type: polyneuropathy associated with underlying disease Qualified Code(s): G63 - Polyneuropathy in diseases classified elsewhere Plan to address problem: Management as per primary care. (5) Hypertension Onset Date: 07/13/16 Current Visit: No Status: Chronic Qualifiers: Hypertension type: essential hypertension Qualified Code(s): I10 - Essential (primary) hypertension Plan to address problem: Management as per primary care. Subjective Date of service: 05/23/17 Principal diagnosis: PVD s/p Femoral-Post Tibial Artery Bypass; CAD s/p CABG; Diabetes II Interval history: Patient has undergone Left Open Transmetatarsal Amputation No complaint of chest pain or shortness of breath.Resting on room air O2 and O2 saturation 98% Objective Vital Signs - 12hr 05/23/17 05/23/17 05/23/17 09:25 09:28 10:00 Temperature 99.9 F H Pulse Rate 95 H 89 Pulse Rate [ 95 H From Monitor] Respiratory 20 18 Rate Blood Pressure 120/58 Blood Pressure 120/58 [Left Arm] Constitutional: no acute distress, alert Eyes: non-icteric ENT: oropharynx moist Neck: supple, no lymphadenopathy Effort: mildly labored Ascultation: Bilateral: diminished breath sounds Cardiovascular: regular rate and rhythm Gastrointestinal: normoactive bowel sounds, soft, non-tender Integumentary: cellulitis (Left foot.) Extremities: no cyanosis, no edema, other (left foot in clean dressing and MIKALA bandage) Neurologic: normal mental status, non-focal exam, pupils equal and round, motor strength normal and Psychiatric: mood appropriate, affect normal CBC and BMP: 05/23/17 06:18 05/23/17 06:18 ABG, PT/INR, D-dimer: PT/INR, D-dimer PT 14.0 Sec. (12.2-14.9) 05/12/17 11:41 INR 1.09 (0.87-1.13) 05/12/17 11:41 Abnormal lab findings: Abnormal Labs 05/01/17 05/01/17 05/01/17 14:55 14:55 14:55 WBC 12.0 H RBC Hgb POC Hgb Hct POC Hct RDW 12.9 L Lymph % (Auto) 6.3 L [place] % (Auto) Lymph # 0.8 L [place] # 0.9 H Seg Neutrophils % 85.9 H Lymphocytes % (Manual) Monocytes % (Manual) Seg Neutrophils # 10.3 H INR 1.15 H APTT 37.7 H Heparin Anti-Xa Level POC Sodium POC Potassium Sodium Potassium Chloride 97.8 L Carbon Dioxide POC BUN BUN 23 H Creatinine Glucose 321 H POC Glucose Hemoglobin A1c Calcium AST ALT Total Protein Albumin Prealbumin Crossmatch 05/01/17 05/01/17 05/02/17 18:32 21:49 03:51 WBC RBC Hgb POC Hgb Hct POC Hct RDW 12.8 L Lymph % (Auto) [place] % (Auto) 12.4 H Lymph # [place] # 1.0 H Seg Neutrophils % Lymphocytes % (Manual) Monocytes % (Manual) Seg Neutrophils # INR APTT Heparin Anti-Xa Level POC Sodium POC Potassium Sodium Potassium Chloride Carbon Dioxide POC BUN BUN Creatinine Glucose POC Glucose 247 H 280 H Hemoglobin A1c Calcium AST ALT Total Protein Albumin Prealbumin Crossmatch 05/02/17 05/02/17 05/02/17 03:51 03:51 07:27 WBC RBC Hgb POC Hgb Hct POC Hct RDW Lymph % (Auto) [place] % (Auto) Lymph # [place] # Seg Neutrophils % Lymphocytes % (Manual) Monocytes % (Manual) Seg Neutrophils # INR APTT Heparin Anti-Xa Level 0.22 L POC Sodium POC Potassium Sodium Potassium Chloride Carbon Dioxide POC BUN BUN Creatinine Glucose 136 H POC Glucose 115 H Hemoglobin A1c Calcium AST ALT Total Protein Albumin Prealbumin Crossmatch 05/02/17 05/02/17 05/02/17 11:50 20:33 21:56 WBC RBC Hgb POC Hgb Hct POC Hct RDW Lymph % (Auto) [place] % (Auto) Lymph # [place] # Seg Neutrophils % Lymphocytes % (Manual) Monocytes % (Manual) Seg Neutrophils # INR APTT Heparin Anti-Xa Level 0.24 L POC Sodium POC Potassium Sodium Potassium Chloride Carbon Dioxide POC BUN BUN Creatinine Glucose POC Glucose 165 H 248 H Hemoglobin A1c Calcium AST ALT Total Protein Albumin Prealbumin Crossmatch 05/03/17 05/03/17 05/03/17 03:23 05:14 05:14 WBC RBC Hgb POC Hgb Hct POC Hct RDW 12.8 L Lymph % (Auto) [place] % (Auto) 14.1 H Lymph # [place] # 1.2 H Seg Neutrophils % Lymphocytes % (Manual) Monocytes % (Manual) Seg Neutrophils # INR APTT 101.1 H* Heparin Anti-Xa Level POC Sodium POC Potassium Sodium 136 L Potassium Chloride Carbon Dioxide POC BUN BUN Creatinine Glucose 116 H POC Glucose Hemoglobin A1c Calcium AST ALT Total Protein Albumin 3.0 L Prealbumin Crossmatch 05/03/17 05/03/17 05/03/17 05:14 11:48 11:51 WBC RBC Hgb POC Hgb Hct POC Hct RDW Lymph % (Auto) [place] % (Auto) Lymph # [place] # Seg Neutrophils % Lymphocytes % (Manual) Monocytes % (Manual) Seg Neutrophils # INR APTT Heparin Anti-Xa Level 0.26 L POC Sodium POC Potassium Sodium Potassium Chloride Carbon Dioxide POC BUN BUN Creatinine Glucose POC Glucose 128 H Hemoglobin A1c 10.2 H Calcium AST ALT Total Protein Albumin Prealbumin Crossmatch 05/03/17 05/03/17 05/04/17 18:50 22:17 04:02 WBC RBC Hgb POC Hgb Hct POC Hct RDW 12.9 L Lymph % (Auto) [place] % (Auto) Lymph # [place] # Seg Neutrophils % Lymphocytes % (Manual) 13.0 L Monocytes % (Manual) 9.0 H Seg Neutrophils # INR APTT Heparin Anti-Xa Level POC Sodium POC Potassium Sodium Potassium Chloride Carbon Dioxide POC BUN BUN Creatinine Glucose POC Glucose 314 H 312 H Hemoglobin A1c Calcium AST ALT Total Protein Albumin Prealbumin Crossmatch 05/04/17 05/04/17 05/04/17 04:02 07:49 11:54 WBC RBC Hgb POC Hgb Hct POC Hct RDW Lymph % (Auto) [place] % (Auto) Lymph # [place] # Seg Neutrophils % Lymphocytes % (Manual) Monocytes % (Manual) Seg Neutrophils # INR APTT Heparin Anti-Xa Level POC Sodium POC Potassium Sodium 134 L Potassium 5.2 H Chloride 96.2 L Carbon Dioxide POC BUN BUN 21 H Creatinine Glucose 251 H POC Glucose 177 H 186 H Hemoglobin A1c Calcium AST ALT Total Protein Albumin 3.0 L Prealbumin Crossmatch 05/04/17 05/04/17 05/05/17 17:46 22:51 05:09 WBC RBC Hgb POC Hgb Hct POC Hct RDW Lymph % (Auto) [place] % (Auto) Lymph # [place] # Seg Neutrophils % Lymphocytes % (Manual) Monocytes % (Manual) Seg Neutrophils # INR APTT Heparin Anti-Xa Level POC Sodium POC Potassium Sodium 135 L Potassium Chloride Carbon Dioxide POC BUN BUN Creatinine Glucose 179 H POC Glucose 244 H 265 H Hemoglobin A1c Calcium AST ALT Total Protein Albumin 2.9 L Prealbumin Crossmatch 05/05/17 05/05/17 05/05/17 05:09 07:39 11:24 WBC RBC Hgb POC Hgb Hct POC Hct RDW Lymph % (Auto) [place] % (Auto) Lymph # [place] # Seg Neutrophils % Lymphocytes % (Manual) Monocytes % (Manual) Seg Neutrophils # INR APTT Heparin Anti-Xa Level 0.15 L 0.29 L POC Sodium POC Potassium Sodium Potassium Chloride Carbon Dioxide POC BUN BUN Creatinine Glucose POC Glucose 153 H Hemoglobin A1c Calcium AST ALT Total Protein Albumin Prealbumin Crossmatch 05/05/17 05/05/17 05/05/17 11:53 16:33 22:05 WBC RBC Hgb POC Hgb Hct POC Hct RDW Lymph % (Auto) [place] % (Auto) Lymph # [place] # Seg Neutrophils % Lymphocytes % (Manual) Monocytes % (Manual) Seg Neutrophils # INR APTT Heparin Anti-Xa Level POC Sodium POC Potassium Sodium Potassium Chloride Carbon Dioxide POC BUN BUN Creatinine Glucose POC Glucose 171 H 317 H 313 H Hemoglobin A1c Calcium AST ALT Total Protein Albumin Prealbumin Crossmatch 05/06/17 05/06/17 05/06/17 07:32 11:47 16:28 WBC RBC Hgb POC Hgb Hct POC Hct RDW Lymph % (Auto) [place] % (Auto) Lymph # [place] # Seg Neutrophils % Lymphocytes % (Manual) Monocytes % (Manual) Seg Neutrophils # INR APTT Heparin Anti-Xa Level POC Sodium POC Potassium Sodium Potassium Chloride Carbon Dioxide POC BUN BUN Creatinine Glucose POC Glucose 176 H 210 H 283 H Hemoglobin A1c Calcium AST ALT Total Protein Albumin Prealbumin Crossmatch 05/06/17 05/07/17 05/07/17 21:33 03:56 07:11 WBC RBC Hgb POC Hgb Hct POC Hct RDW Lymph % (Auto) [place] % (Auto) Lymph # [place] # Seg Neutrophils % Lymphocytes % (Manual) Monocytes % (Manual) Seg Neutrophils # INR APTT Heparin Anti-Xa Level 0.10 L POC Sodium POC Potassium Sodium Potassium Chloride Carbon Dioxide POC BUN BUN Creatinine Glucose POC Glucose 264 H 276 H Hemoglobin A1c Calcium AST ALT Total Protein Albumin Prealbumin Crossmatch 05/07/17 05/07/17 05/07/17 11:48 11:48 16:11 WBC RBC Hgb POC Hgb Hct POC Hct RDW Lymph % (Auto) [place] % (Auto) Lymph # [place] # Seg Neutrophils % Lymphocytes % (Manual) Monocytes % (Manual) Seg Neutrophils # INR APTT Heparin Anti-Xa Level POC Sodium 137 L POC Potassium 5.5 H Sodium Potassium Chloride Carbon Dioxide POC BUN 31 H BUN Creatinine Glucose POC Glucose 128 H 158 H Hemoglobin A1c Calcium AST ALT Total Protein Albumin Prealbumin Crossmatch See Detail 05/07/17 05/07/17 05/07/17 16:44 20:28 22:47 WBC RBC Hgb POC Hgb 11.6 L Hct POC Hct 34 L RDW Lymph % (Auto) [place] % (Auto) Lymph # [place] # Seg Neutrophils % Lymphocytes % (Manual) Monocytes % (Manual) Seg Neutrophils # INR APTT Heparin Anti-Xa Level POC Sodium POC Potassium 5.0 H Sodium Potassium Chloride Carbon Dioxide POC BUN 27 H BUN Creatinine Glucose POC Glucose 170 H 203 H 253 H Hemoglobin A1c Calcium AST ALT Total Protein Albumin Prealbumin Crossmatch 05/08/17 05/08/17 05/08/17 04:23 07:57 12:01 WBC RBC Hgb POC Hgb Hct POC Hct RDW Lymph % (Auto) [place] % (Auto) Lymph # [place] # Seg Neutrophils % Lymphocytes % (Manual) Monocytes % (Manual) Seg Neutrophils # INR APTT Heparin Anti-Xa Level POC Sodium POC Potassium Sodium Potassium 5.3 H D Chloride Carbon Dioxide 19 L POC BUN BUN 29 H Creatinine Glucose 223 H POC Glucose 258 H 282 H Hemoglobin A1c Calcium 8.2 L AST ALT Total Protein Albumin Prealbumin Crossmatch 05/08/17 05/08/17 05/08/17 15:42 19:44 21:39 WBC RBC Hgb POC Hgb Hct POC Hct RDW Lymph % (Auto) [place] % (Auto) Lymph # [place] # Seg Neutrophils % Lymphocytes % (Manual) Monocytes % (Manual) Seg Neutrophils # INR APTT Heparin Anti-Xa Level 0.25 L POC Sodium POC Potassium Sodium Potassium Chloride Carbon Dioxide POC BUN BUN Creatinine Glucose POC Glucose 280 H 329 H Hemoglobin A1c Calcium AST ALT Total Protein Albumin Prealbumin Crossmatch 05/09/17 05/09/17 05/09/17 01:52 08:27 12:02 WBC RBC Hgb POC Hgb Hct POC Hct RDW Lymph % (Auto) [place] % (Auto) Lymph # [place] # Seg Neutrophils % Lymphocytes % (Manual) Monocytes % (Manual) Seg Neutrophils # INR APTT Heparin Anti-Xa Level 0.29 L POC Sodium POC Potassium Sodium Potassium Chloride Carbon Dioxide POC BUN BUN Creatinine Glucose POC Glucose 187 H 190 H Hemoglobin A1c Calcium AST ALT Total Protein Albumin Prealbumin Crossmatch 05/09/17 05/09/17 05/10/17 16:42 21:58 03:41 WBC 13.4 H RBC 3.61 L Hgb 10.8 L POC Hgb Hct 31.9 L POC Hct RDW 13.1 L Lymph % (Auto) 12.9 L [place] % (Auto) 12.2 H Lymph # [place] # 1.6 H Seg Neutrophils % 74.1 H Lymphocytes % (Manual) Monocytes % (Manual) Seg Neutrophils # 10.0 H INR APTT Heparin Anti-Xa Level POC Sodium POC Potassium Sodium Potassium Chloride Carbon Dioxide POC BUN BUN Creatinine Glucose POC Glucose 245 H 344 H Hemoglobin A1c Calcium AST ALT Total Protein Albumin Prealbumin Crossmatch 05/10/17 05/10/17 05/10/17 03:41 07:31 12:08 WBC RBC Hgb POC Hgb Hct POC Hct RDW Lymph % (Auto) [place] % (Auto) Lymph # [place] # Seg Neutrophils % Lymphocytes % (Manual) Monocytes % (Manual) Seg Neutrophils # INR APTT Heparin Anti-Xa Level POC Sodium POC Potassium Sodium 134 L Potassium Chloride Carbon Dioxide 21 L POC BUN BUN Creatinine Glucose 171 H POC Glucose 127 H 172 H Hemoglobin A1c Calcium 8.2 L AST 51 H ALT Total Protein Albumin 2.2 L Prealbumin Crossmatch 06/05/10/17 05/11/17 16:28 21:04 05:03 WBC 19.1 H RBC 3.64 L Hgb 10.7 L POC Hgb Hct 32.1 L POC Hct RDW Lymph % (Auto) 11.8 L [place] % (Auto) 10.8 H Lymph # [place] # 2.1 H Seg Neutrophils % 75.6 H Lymphocytes % (Manual) Monocytes % (Manual) Seg Neutrophils # 14.4 H INR APTT Heparin Anti-Xa Level POC Sodium POC Potassium Sodium Potassium Chloride Carbon Dioxide POC BUN BUN Creatinine Glucose POC Glucose 197 H 295 H Hemoglobin A1c Calcium AST ALT Total Protein Albumin Prealbumin Crossmatch 05/11/17 05/11/17 05/11/17 05:03 07:30 09:52 WBC RBC Hgb POC Hgb Hct POC Hct RDW Lymph % (Auto) [place] % (Auto) Lymph # [place] # Seg Neutrophils % Lymphocytes % (Manual) Monocytes % (Manual) Seg Neutrophils # INR APTT Heparin Anti-Xa Level POC Sodium POC Potassium Sodium Potassium 5.2 H Chloride Carbon Dioxide POC BUN BUN Creatinine Glucose 143 H POC Glucose 118 H 124 H Hemoglobin A1c Calcium AST 51 H ALT Total Protein Albumin 2.7 L Prealbumin Crossmatch 05/11/17 05/11/17 05/11/17 11:32 12:22 16:22 WBC RBC Hgb POC Hgb Hct POC Hct RDW Lymph % (Auto) [place] % (Auto) Lymph # [place] # Seg Neutrophils % Lymphocytes % (Manual) Monocytes % (Manual) Seg Neutrophils # INR APTT Heparin Anti-Xa Level < 0.10 L POC Sodium POC Potassium Sodium Potassium Chloride Carbon Dioxide POC BUN BUN Creatinine Glucose POC Glucose 119 H 197 H Hemoglobin A1c Calcium AST ALT Total Protein Albumin Prealbumin Crossmatch 05/11/17 05/12/17 05/12/17 22:06 05:35 05:35 WBC RBC 3.64 L Hgb 10.8 L POC Hgb Hct 32.5 L POC Hct RDW Lymph % (Auto) 8.0 L [place] % (Auto) 12.8 H Lymph # 0.8 L [place] # 1.3 H Seg Neutrophils % 77.9 H Lymphocytes % (Manual) Monocytes % (Manual) Seg Neutrophils # 8.2 H INR APTT Heparin Anti-Xa Level POC Sodium POC Potassium Sodium 136 L Potassium Chloride Carbon Dioxide POC BUN BUN Creatinine Glucose 210 H POC Glucose 296 H Hemoglobin A1c Calcium 8.3 L AST ALT Total Protein 6.2 L Albumin 2.6 L Prealbumin Crossmatch 05/12/17 05/12/17 05/12/17 07:26 11:30 11:41 WBC RBC Hgb 11.4 L POC Hgb Hct 35.1 L POC Hct RDW Lymph % (Auto) [place] % (Auto) Lymph # [place] # Seg Neutrophils % Lymphocytes % (Manual) Monocytes % (Manual) Seg Neutrophils # INR APTT Heparin Anti-Xa Level POC Sodium POC Potassium Sodium Potassium Chloride Carbon Dioxide POC BUN BUN Creatinine Glucose POC Glucose 171 H 126 H Hemoglobin A1c Calcium AST ALT Total Protein Albumin Prealbumin Crossmatch 05/12/17 05/12/17 05/12/17 16:23 21:14 21:50 WBC RBC Hgb POC Hgb Hct POC Hct RDW Lymph % (Auto) [place] % (Auto) Lymph # [place] # Seg Neutrophils % Lymphocytes % (Manual) Monocytes % (Manual) Seg Neutrophils # INR APTT Heparin Anti-Xa Level 0.22 L POC Sodium POC Potassium Sodium Potassium Chloride Carbon Dioxide POC BUN BUN Creatinine Glucose POC Glucose 223 H 308 H Hemoglobin A1c Calcium AST ALT Total Protein Albumin Prealbumin Crossmatch 05/13/17 05/13/17 05/13/17 04:21 07:24 11:46 WBC RBC Hgb POC Hgb Hct POC Hct RDW Lymph % (Auto) [place] % (Auto) Lymph # [place] # Seg Neutrophils % Lymphocytes % (Manual) Monocytes % (Manual) Seg Neutrophils # INR APTT Heparin Anti-Xa Level 0.23 L POC Sodium POC Potassium Sodium Potassium Chloride Carbon Dioxide POC BUN BUN Creatinine Glucose POC Glucose 112 H 206 H Hemoglobin A1c Calcium AST ALT Total Protein Albumin Prealbumin Crossmatch 05/13/17 05/13/17 05/13/17 11:57 16:42 21:44 WBC RBC Hgb POC Hgb Hct POC Hct RDW Lymph % (Auto) [place] % (Auto) Lymph # [place] # Seg Neutrophils % Lymphocytes % (Manual) Monocytes % (Manual) Seg Neutrophils # INR APTT Heparin Anti-Xa Level 0.21 L POC Sodium POC Potassium Sodium Potassium Chloride Carbon Dioxide POC BUN BUN Creatinine Glucose POC Glucose 217 H 245 H Hemoglobin A1c Calcium AST ALT Total Protein Albumin Prealbumin Crossmatch 05/14/17 05/14/17 05/14/17 07:13 16:03 21:01 WBC RBC Hgb 10.9 L POC Hgb Hct 33.1 L POC Hct RDW Lymph % (Auto) [place] % (Auto) Lymph # [place] # Seg Neutrophils % Lymphocytes % (Manual) Monocytes % (Manual) Seg Neutrophils # INR APTT Heparin Anti-Xa Level POC Sodium POC Potassium Sodium Potassium Chloride Carbon Dioxide POC BUN BUN Creatinine Glucose POC Glucose 144 H 262 H Hemoglobin A1c Calcium AST ALT Total Protein Albumin Prealbumin Crossmatch 05/15/17 05/15/17 05/15/17 07:39 11:31 16:24 WBC RBC Hgb POC Hgb Hct POC Hct RDW Lymph % (Auto) [place] % (Auto) Lymph # [place] # Seg Neutrophils % Lymphocytes % (Manual) Monocytes % (Manual) Seg Neutrophils # INR APTT Heparin Anti-Xa Level POC Sodium POC Potassium Sodium Potassium Chloride Carbon Dioxide POC BUN BUN Creatinine Glucose POC Glucose 246 H 297 H 319 H Hemoglobin A1c Calcium AST ALT Total Protein Albumin Prealbumin Crossmatch 05/15/17 05/16/17 05/16/17 20:55 07:39 09:03 WBC RBC Hgb 8.4 L POC Hgb Hct 25.9 L D POC Hct RDW Lymph % (Auto) [place] % (Auto) Lymph # [place] # Seg Neutrophils % Lymphocytes % (Manual) Monocytes % (Manual) Seg Neutrophils # INR APTT Heparin Anti-Xa Level POC Sodium POC Potassium Sodium Potassium Chloride Carbon Dioxide POC BUN BUN Creatinine Glucose POC Glucose 344 H 110 H Hemoglobin A1c Calcium AST ALT Total Protein Albumin Prealbumin Crossmatch 05/16/17 05/16/17 05/16/17 11:51 16:48 23:09 WBC RBC Hgb POC Hgb Hct POC Hct RDW Lymph % (Auto) [place] % (Auto) Lymph # [place] # Seg Neutrophils % Lymphocytes % (Manual) Monocytes % (Manual) Seg Neutrophils # INR APTT Heparin Anti-Xa Level POC Sodium POC Potassium Sodium Potassium Chloride Carbon Dioxide POC BUN BUN Creatinine Glucose POC Glucose 119 H 188 H 219 H Hemoglobin A1c Calcium AST ALT Total Protein Albumin Prealbumin Crossmatch 05/17/17 05/17/17 05/17/17 04:39 04:39 07:34 WBC 18.6 H RBC 2.64 L Hgb 7.6 L POC Hgb Hct 23.3 L POC Hct RDW Lymph % (Auto) 7.2 L [place] % (Auto) 13.3 H Lymph # [place] # 2.5 H Seg Neutrophils % 79.2 H Lymphocytes % (Manual) Monocytes % (Manual) Seg Neutrophils # 14.8 H INR APTT Heparin Anti-Xa Level POC Sodium POC Potassium Sodium 133 L Potassium Chloride 95.5 L Carbon Dioxide POC BUN BUN 26 H Creatinine 1.6 H D Glucose 183 H POC Glucose 144 H Hemoglobin A1c Calcium 8.2 L AST 154 H ALT 79 H Total Protein Albumin 2.6 L Prealbumin Crossmatch 05/17/17 05/17/17 05/17/17 09:17 16:23 22:37 WBC RBC Hgb 8.3 L POC Hgb Hct 24.8 L POC Hct RDW Lymph % (Auto) [place] % (Auto) Lymph # [place] # Seg Neutrophils % Lymphocytes % (Manual) Monocytes % (Manual) Seg Neutrophils # INR APTT Heparin Anti-Xa Level POC Sodium POC Potassium Sodium Potassium Chloride Carbon Dioxide POC BUN BUN Creatinine Glucose POC Glucose 145 H 207 H Hemoglobin A1c Calcium AST ALT Total Protein Albumin Prealbumin Crossmatch 05/18/17 05/18/17 05/18/17 04:23 04:23 07:37 WBC 19.8 H RBC 2.73 L Hgb 7.9 L POC Hgb Hct 24.2 L POC Hct RDW Lymph % (Auto) 6.1 L [place] % (Auto) 13.8 H Lymph # [place] # 2.7 H Seg Neutrophils % 79.8 H Lymphocytes % (Manual) Monocytes % (Manual) Seg Neutrophils # 15.8 H INR APTT Heparin Anti-Xa Level POC Sodium POC Potassium Sodium 133 L Potassium Chloride 93.3 L Carbon Dioxide POC BUN BUN 26 H Creatinine Glucose 145 H POC Glucose 144 H Hemoglobin A1c Calcium AST 189 H ALT 101 H Total Protein Albumin 2.7 L Prealbumin Crossmatch 05/18/17 05/18/17 05/18/17 11:24 16:48 19:26 WBC RBC Hgb POC Hgb Hct POC Hct RDW Lymph % (Auto) [place] % (Auto) Lymph # [place] # Seg Neutrophils % Lymphocytes % (Manual) Monocytes % (Manual) Seg Neutrophils # INR APTT Heparin Anti-Xa Level 0.20 L POC Sodium POC Potassium Sodium Potassium Chloride Carbon Dioxide POC BUN BUN Creatinine Glucose POC Glucose 142 H 226 H Hemoglobin A1c Calcium AST ALT Total Protein Albumin Prealbumin Crossmatch 05/18/17 05/19/17 05/19/17 21:53 07:27 12:38 WBC RBC Hgb POC Hgb Hct POC Hct RDW Lymph % (Auto) [place] % (Auto) Lymph # [place] # Seg Neutrophils % Lymphocytes % (Manual) Monocytes % (Manual) Seg Neutrophils # INR APTT Heparin Anti-Xa Level POC Sodium POC Potassium Sodium Potassium Chloride Carbon Dioxide POC BUN BUN Creatinine Glucose POC Glucose 275 H 164 H 266 H Hemoglobin A1c Calcium AST ALT Total Protein Albumin Prealbumin Crossmatch 05/19/17 05/19/17 05/19/17 13:03 16:25 22:19 WBC 19.4 H RBC 2.68 L Hgb 7.7 L POC Hgb Hct 23.7 L POC Hct RDW Lymph % (Auto) 5.7 L [place] % (Auto) 11.2 H Lymph # 1.1 L [place] # 2.2 H Seg Neutrophils % 82.9 H Lymphocytes % (Manual) Monocytes % (Manual) Seg Neutrophils # 16.1 H INR APTT Heparin Anti-Xa Level POC Sodium POC Potassium Sodium Potassium Chloride Carbon Dioxide POC BUN BUN Creatinine Glucose POC Glucose 253 H 182 H Hemoglobin A1c Calcium AST ALT Total Protein Albumin Prealbumin Crossmatch 05/20/17 05/20/17 05/20/17 07:14 07:14 16:11 WBC 17.6 H RBC 2.77 L Hgb 7.8 L 7.9 L POC Hgb Hct 23.7 L 24.8 L POC Hct RDW Lymph % (Auto) 8.2 L [place] % (Auto) 11.7 H Lymph # [place] # 2.1 H Seg Neutrophils % 79.1 H Lymphocytes % (Manual) Monocytes % (Manual) Seg Neutrophils # 14.0 H INR APTT Heparin Anti-Xa Level POC Sodium POC Potassium Sodium Potassium Chloride Carbon Dioxide POC BUN BUN Creatinine Glucose POC Glucose 142 H Hemoglobin A1c Calcium AST ALT Total Protein Albumin Prealbumin Crossmatch 05/20/17 05/21/17 05/21/17 21:49 03:58 03:58 WBC 13.1 H RBC 2.34 L Hgb 6.7 L POC Hgb Hct 20.8 L POC Hct RDW Lymph % (Auto) 9.0 L [place] % (Auto) 11.1 H Lymph # [place] # 1.5 H Seg Neutrophils % 79.0 H Lymphocytes % (Manual) Monocytes % (Manual) Seg Neutrophils # 10.3 H INR APTT Heparin Anti-Xa Level POC Sodium POC Potassium Sodium 134 L Potassium Chloride 97.2 L Carbon Dioxide POC BUN BUN Creatinine Glucose 115 H POC Glucose 240 H Hemoglobin A1c Calcium 7.9 L AST 154 H ALT 137 H Total Protein Albumin 2.2 L Prealbumin Crossmatch 05/21/17 05/21/17 05/21/17 10:51 11:53 16:23 WBC RBC Hgb POC Hgb Hct POC Hct RDW Lymph % (Auto) [place] % (Auto) Lymph # [place] # Seg Neutrophils % Lymphocytes % (Manual) Monocytes % (Manual) Seg Neutrophils # INR APTT Heparin Anti-Xa Level POC Sodium POC Potassium Sodium Potassium Chloride Carbon Dioxide POC BUN BUN Creatinine Glucose POC Glucose 158 H 206 H Hemoglobin A1c Calcium AST ALT Total Protein Albumin Prealbumin Crossmatch See Detail 05/21/17 05/22/17 05/22/17 23:02 06:21 07:20 WBC RBC Hgb POC Hgb Hct POC Hct RDW Lymph % (Auto) [place] % (Auto) Lymph # [place] # Seg Neutrophils % Lymphocytes % (Manual) Monocytes % (Manual) Seg Neutrophils # INR APTT Heparin Anti-Xa Level POC Sodium POC Potassium Sodium 136 L Potassium Chloride Carbon Dioxide POC BUN BUN Creatinine Glucose 175 H POC Glucose 357 H 193 H Hemoglobin A1c Calcium 7.8 L AST 93 H ALT 124 H Total Protein 5.8 L Albumin 2.5 L Prealbumin Crossmatch 05/22/17 05/22/17 05/22/17 07:40 11:30 17:25 WBC 12.7 H RBC 2.90 L Hgb 8.5 L POC Hgb Hct 26.1 L POC Hct RDW Lymph % (Auto) 8.2 L [place] % (Auto) 11.5 H Lymph # 1.0 L [place] # 1.5 H Seg Neutrophils % 79.5 H Lymphocytes % (Manual) Monocytes % (Manual) Seg Neutrophils # 10.1 H INR APTT Heparin Anti-Xa Level POC Sodium POC Potassium Sodium Potassium Chloride Carbon Dioxide POC BUN BUN Creatinine Glucose POC Glucose 136 H 153 H Hemoglobin A1c Calcium AST ALT Total Protein Albumin Prealbumin Crossmatch 05/22/17 05/23/17 05/23/17 21:37 06:18 06:18 WBC 14.1 H RBC 2.79 L Hgb 8.1 L POC Hgb Hct 24.7 L POC Hct RDW Lymph % (Auto) 10.1 L [place] % (Auto) 13.0 H Lymph # [place] # 1.8 H Seg Neutrophils % 76.0 H Lymphocytes % (Manual) Monocytes % (Manual) Seg Neutrophils # 10.7 H INR APTT Heparin Anti-Xa Level POC Sodium POC Potassium Sodium Potassium Chloride Carbon Dioxide 21 L POC BUN BUN Creatinine Glucose 71 L POC Glucose 273 H Hemoglobin A1c Calcium 8.0 L AST 76 H ALT 95 H Total Protein 6.2 L Albumin 2.0 L Prealbumin Crossmatch 05/23/17 05/23/17 05/23/17 07:19 11:29 11:52 WBC RBC Hgb POC Hgb Hct POC Hct RDW Lymph % (Auto) [place] % (Auto) Lymph # [place] # Seg Neutrophils % Lymphocytes % (Manual) Monocytes % (Manual) Seg Neutrophils # INR APTT Heparin Anti-Xa Level POC Sodium POC Potassium Sodium Potassium Chloride Carbon Dioxide POC BUN BUN Creatinine Glucose POC Glucose 67 L 134 H Hemoglobin A1c Calcium AST ALT Total Protein Albumin Prealbumin 0.030 L Crossmatch Chest x-ray: report reviewed (Borderline to mild cardiomegaly. Lungs are clear.)
--- NOTE | 2017-05-23 17:18 | Progress Note ---
Assessment and Plan Pt s/p open TMA. Wounds clean intra-op with good bleeding. Pt eval'd by ET earlier today, for wound vac tomorrow. May need HBO as an outpt. Continue to work with PT. Will likely need rehab upon discharge, given level of deconditioning. Discussed with the pt. - Patient Problems (1) Atherosclerosis of [place] arteries of the extremities with ulceration Onset Date: 08/22/16 Current Visit: No Status: Acute (2) Ischemia of left lower extremity Current Visit: Yes Status: Acute Subjective Date of service: 05/23/17 Principal diagnosis: PVD s/p Femoral-Post Tibial Artery Bypass; CAD s/p CABG; Diabetes II Interval history: Pt was evaluated earlier this morning. He was drowsy, but without complaint. Objective - Constitutional Vitals: Vital Signs - 12hr 05/23/17 05/23/17 05/23/17 09:25 09:28 10:00 Temperature 99.9 F H Pulse Rate 95 H 89 Pulse Rate [ 95 H From Monitor] Respiratory 20 18 Rate Blood Pressure 120/58 Blood Pressure 120/58 [Left Arm] General appearance: Present: no acute distress - EENT Eyes: EOM intact ENT: hearing intact - Respiratory Respiratory effort: normal Extremities: normal temperature, abnormal (L foot wrapped with castro wrap. Presently dry, but with blood staining from post-op bleeding.) - Neurologic Neurologic: no focal deficits - Psychiatric Psychiatric: appropriate mood/affect, intact judgment & insight (oriented to person place and time), cooperative - Labs CBC & Chem 7: 05/23/17 06:18 05/23/17 06:18 Labs: Abnormal lab results 05/22/17 05/22/17 05/23/17 Range/Units 17:25 21:37 06:18 WBC 14.1 H (4.5-11.0) K/mm3 RBC 2.79 L (3.65-5.03) M/mm3 Hgb 8.1 L (11.8-15.2) gm/dl Hct 24.7 L (35.5-45.6) % Lymph % (Auto) 10.1 L (13.4-35.0) % [place] % (Auto) 13.0 H (0.0-7.3) % [place] # 1.8 H (0.0-0.8) K/mm3 Seg Neutrophils % 76.0 H (40.0-70.0) % Seg Neutrophils # 10.7 H (1.8-7.7) K/mm3 Carbon Dioxide (22-30) mmol/L Glucose (75-100) mg/dL POC Glucose 153 H 273 H (70-105) Calcium (8.4-10.2) mg/dL AST (5-40) units/L ALT (7-56) units/L Total Protein (6.3-8.2) g/dL Albumin (3.9-5) g/dL Prealbumin (0.200-0.400) g/L 05/23/17 05/23/17 05/23/17 Range/Units 06:18 07:19 11:29 WBC (4.5-11.0) K/mm3 RBC (3.65-5.03) M/mm3 Hgb (11.8-15.2) gm/dl Hct (35.5-45.6) % Lymph % (Auto) (13.4-35.0) % [place] % (Auto) (0.0-7.3) % [place] # (0.0-0.8) K/mm3 Seg Neutrophils % (40.0-70.0) % Seg Neutrophils # (1.8-7.7) K/mm3 Carbon Dioxide 21 L (22-30) mmol/L Glucose 71 L (75-100) mg/dL POC Glucose 67 L (70-105) Calcium 8.0 L (8.4-10.2) mg/dL AST 76 H (5-40) units/L ALT 95 H (7-56) units/L Total Protein 6.2 L (6.3-8.2) g/dL Albumin 2.0 L (3.9-5) g/dL Prealbumin 0.030 L (0.200-0.400) g/L 05/23/17 05/23/17 Range/Units 11:52 16:41 WBC (4.5-11.0) K/mm3 RBC (3.65-5.03) M/mm3 Hgb (11.8-15.2) gm/dl Hct (35.5-45.6) % Lymph % (Auto) (13.4-35.0) % [place] % (Auto) (0.0-7.3) % [place] # (0.0-0.8) K/mm3 Seg Neutrophils % (40.0-70.0) % Seg Neutrophils # (1.8-7.7) K/mm3 Carbon Dioxide (22-30) mmol/L Glucose (75-100) mg/dL POC Glucose 134 H 223 H (70-105) Calcium (8.4-10.2) mg/dL AST (5-40) units/L ALT (7-56) units/L Total Protein (6.3-8.2) g/dL Albumin (3.9-5) g/dL Prealbumin (0.200-0.400) g/L
--- NOTE | 2017-05-23 20:11 | Progress Note ---
Assessment and Plan Pt with T2DM, PAD s/p Left femoral artery angioplasy, left femoral artery endoarterectomy and left femoral artery to post tibia artery bypass done with further intervention on 05/13/17. Had Open TMA of the left foot 05/22/17 for gnagrenous toes - PAD - In severe pain in the left leg. s/p Left femoral artery angioplasy, left femoral artery endoarterectomy and left femoral artery to post tibia artery bypass on 05/07/17. 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 For wound vac and local wound care. - Diabetic peripheral Neuropathy: Continue with Gabapentin - Ischemic cardiomyopathy with EF 40-45% as at 2016 - Dysipidemia: On statin - Bleeding from the incision site on the left leg and hematoma on the left groin. resolved -Anemia: secondary to bleeding at the left leg inaction site from anticoagulation - s/p blood transfusion -Leukocytosis: Improving DVT and GI PPx with heparing and pepcid Subjective Date of service: 05/23/17 Principal diagnosis: PVD s/p Femoral-Post Tibial Artery Bypass; CAD s/p CABG; Diabetes II Interval history: Had left open TMA yesterday 05/22/17. Has mod. post op pain. No bleeding from the incision sites in the left leg. More alert and interactive Objective - Constitutional Vitals: Vital Signs - 12hr 05/23/17 05/23/17 05/23/17 09:25 09:28 10:00 Temperature 99.9 F H Pulse Rate 95 H 89 Pulse Rate [ 95 H From Monitor] Respiratory 20 18 Rate Blood Pressure 120/58 Blood Pressure 120/58 [Left Arm] General appearance: Present: no acute distress, well-nourished - EENT Eyes: PERRL, EOM intact - Neck Neck: supple, normal ROM - Respiratory Respiratory effort: normal Respiratory: bilateral: CTA - Cardiovascular Rhythm: regular Heart Sounds: Present: S1 & S2. Absent: gallop, rub Extremities: pulses intact, normal color, Full ROM - Gastrointestinal General gastrointestinal: Present: soft, non-tender, non-distended, normal bowel sounds - Genitourinary Male genitourinary: normal - Integumentary Integumentary: clear, warm, dry - Musculoskeletal Musculoskeletal: 1, strength equal bilaterally - Neurologic Neurologic: moves all extremities - Psychiatric Psychiatric: memory intact, appropriate mood/affect, intact judgment & insight - Labs CBC & Chem 7: 05/23/17 06:18 05/23/17 06:18 Labs: Abnormal lab results 05/22/17 05/23/17 05/23/17 Range/Units 21:37 06:18 06:18 WBC 14.1 H (4.5-11.0) K/mm3 RBC 2.79 L (3.65-5.03) M/mm3 Hgb 8.1 L (11.8-15.2) gm/dl Hct 24.7 L (35.5-45.6) % Lymph % (Auto) 10.1 L (13.4-35.0) % [place] % (Auto) 13.0 H (0.0-7.3) % [place] # 1.8 H (0.0-0.8) K/mm3 Seg Neutrophils % 76.0 H (40.0-70.0) % Seg Neutrophils # 10.7 H (1.8-7.7) K/mm3 Carbon Dioxide 21 L (22-30) mmol/L Glucose 71 L (75-100) mg/dL POC Glucose 273 H (70-105) Calcium 8.0 L (8.4-10.2) mg/dL AST 76 H (5-40) units/L ALT 95 H (7-56) units/L Total Protein 6.2 L (6.3-8.2) g/dL Albumin 2.0 L (3.9-5) g/dL Prealbumin (0.200-0.400) g/L 05/23/17 05/23/17 05/23/17 Range/Units 07:19 11:29 11:52 WBC (4.5-11.0) K/mm3 RBC (3.65-5.03) M/mm3 Hgb (11.8-15.2) gm/dl Hct (35.5-45.6) % Lymph % (Auto) (13.4-35.0) % [place] % (Auto) (0.0-7.3) % [place] # (0.0-0.8) K/mm3 Seg Neutrophils % (40.0-70.0) % Seg Neutrophils # (1.8-7.7) K/mm3 Carbon Dioxide (22-30) mmol/L Glucose (75-100) mg/dL POC Glucose 67 L 134 H (70-105) Calcium (8.4-10.2) mg/dL AST (5-40) units/L ALT (7-56) units/L Total Protein (6.3-8.2) g/dL Albumin (3.9-5) g/dL Prealbumin 0.030 L (0.200-0.400) g/L 05/23/17 Range/Units 16:41 WBC (4.5-11.0) K/mm3 RBC (3.65-5.03) M/mm3 Hgb (11.8-15.2) gm/dl Hct (35.5-45.6) % Lymph % (Auto) (13.4-35.0) % [place] % (Auto) (0.0-7.3) % [place] # (0.0-0.8) K/mm3 Seg Neutrophils % (40.0-70.0) % Seg Neutrophils # (1.8-7.7) K/mm3 Carbon Dioxide (22-30) mmol/L Glucose (75-100) mg/dL POC Glucose 223 H (70-105) Calcium (8.4-10.2) mg/dL AST (5-40) units/L ALT (7-56) units/L Total Protein (6.3-8.2) g/dL Albumin (3.9-5) g/dL Prealbumin (0.200-0.400) g/L
[2017-05-23] MEDS: LEVEMIR SUB-Q SCH (22:40)
[2017-05-24] MEDS: LOVENOX SUB-Q SCH ×3 (00:45→13:13)
[2017-05-24] MEDS: NOVOLOG SUB-Q SCH ×5 (04:39→22:57)
[2017-05-24 05:31] LABS: Basophils % (Auto) 0.4 % (0.0-1.8); Eosinophils % (Auto) 1.2 % (0.0-4.3); Hematocrit 22.2 % (35.5-45.6); Hemoglobin 7.3 gm/dl (11.8-15.2); Mean Corpuscular HGB Conc 33 % (32-34); Mean Corpuscular Hemoglobin 30 pg (28-32); Mean Corpuscular Volume 89 fl (84-94); Platelet Count 266 K/mm3 (140-440); Red Blood Count 2.48 M/mm3 (3.65-5.03); Red Cell Distribution Width 14.3 % (13.2-15.2); White Blood Count 9.8 K/mm3 (4.5-11.0)
[2017-05-24 05:40] LABS: INR 1.19 (0.87-1.13)
[2017-05-24 05:54] LABS: Alanine Aminotransferase 68 units/L (7-56); Albumin 1.9 g/dL (3.9-5); Albumin/Globulin Ratio 0.5 %; Alkaline Phosphatase 62 units/L (35-129); Anion Gap 16 mmol/L; BUN/Creatinine Ratio 18.75; Blood Urea Nitrogen 15 mg/dL (9-20); Calcium 7.3 mg/dL (8.4-10.2); Carbon Dioxide 20 mmol/L (22-30); Chloride 101.1 mmol/L (98-107); Glucose 196 mg/dL (75-100); Potassium 3.9 mmol/L (3.6-5.0); Sodium 133 mmol/L (137-145); Total Protein 5.6 g/dL (6.3-8.2)
--- NOTE | 2017-05-24 08:37 | Progress Note ---
Assessment and Plan Pt with T2DM, PAD s/p Left femoral artery angioplasy, left femoral artery endoarterectomy and left femoral artery to post tibia artery bypass done with further intervention on 05/13/17. Had Open TMA of the left foot 05/22/17 for gangrenous toes - PAD - In severe pain in the left leg. s/p Left femoral artery angioplasy, left femoral artery endoarterectomy and left femoral artery to post tibia artery bypass on 05/07/17. 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 For wound vac and local wound care. - Diabetic peripheral Neuropathy: Continue with Gabapentin - Ischemic cardiomyopathy with EF 40-45% as at 2016 - Dysipidemia: On statin - Bleeding from the incision site on the left leg and hematoma on the left groin. resolved -Anemia: secondary to bleeding at the left leg inaction site from anticoagulation - s/p blood transfusion. May need blood transfuion -Leukocytosis: Improving - confused whenever he get morphine injection. will list as adverse reaction DVT and GI PPx with heparing and pepcid Subjective Date of service: 05/24/17 Principal diagnosis: PVD s/p Femoral-Post Tibial Artery Bypass; CAD s/p CABG; Diabetes II Interval history: Had left open TMA yesterday 05/22/17. Has mod. post op pain. No bleeding from the incision sites in the left leg. confused yesterday after morphne injection Objective - Constitutional Vitals: Vital Signs - 12hr 05/23/17 22:00 Respiratory 18 Rate O2 Sat by Pulse 98 Oximetry General appearance: Present: no acute distress, well-nourished - EENT Eyes: PERRL, EOM intact - Neck Neck: supple, normal ROM - Respiratory Respiratory effort: normal Respiratory: bilateral: CTA - Cardiovascular Rhythm: regular Heart Sounds: Present: S1 & S2. Absent: gallop, rub Extremities: pulses intact, No edema, normal color, Full ROM Extremity abnormal: other (dressed wound left foot.) - Gastrointestinal General gastrointestinal: Present: soft, non-tender, non-distended, normal bowel sounds - Integumentary Integumentary: clear, warm, dry - Musculoskeletal Musculoskeletal: 1, strength equal bilaterally - Neurologic Neurologic: moves all extremities - Psychiatric Psychiatric: memory intact, appropriate mood/affect, intact judgment & insight - Labs CBC & Chem 7: 05/24/17 05:00 05/24/17 05:00 Labs: Abnormal lab results 05/23/17 05/23/17 05/23/17 Range/Units 11:29 11:52 16:41 RBC (3.65-5.03) M/mm3 Hgb (11.8-15.2) gm/dl Hct (35.5-45.6) % Lymph % (Auto) (13.4-35.0) % [place] % (Auto) (0.0-7.3) % Lymph # (1.2-5.4) K/mm3 [place] # (0.0-0.8) K/mm3 Seg Neutrophils % (40.0-70.0) % PT (12.2-14.9) Sec. INR (0.87-1.13) Sodium (137-145) mmol/L Carbon Dioxide (22-30) mmol/L Glucose (75-100) mg/dL POC Glucose 134 H 223 H (70-105) Calcium (8.4-10.2) mg/dL AST (5-40) units/L ALT (7-56) units/L Total Protein (6.3-8.2) g/dL Albumin (3.9-5) g/dL Prealbumin 0.030 L (0.200-0.400) g/L 05/23/17 05/24/17 05/24/17 Range/Units 21:55 05:00 05:00 RBC 2.48 L (3.65-5.03) M/mm3 Hgb 7.3 L (11.8-15.2) gm/dl Hct 22.2 L (35.5-45.6) % Lymph % (Auto) 10.1 L (13.4-35.0) % [place] % (Auto) 13.1 H (0.0-7.3) % Lymph # 1.0 L (1.2-5.4) K/mm3 [place] # 1.3 H (0.0-0.8) K/mm3 Seg Neutrophils % 75.2 H (40.0-70.0) % PT 15.7 H (12.2-14.9) Sec. INR 1.19 H (0.87-1.13) Sodium (137-145) mmol/L Carbon Dioxide (22-30) mmol/L Glucose (75-100) mg/dL POC Glucose 262 H (70-105) Calcium (8.4-10.2) mg/dL AST (5-40) units/L ALT (7-56) units/L Total Protein (6.3-8.2) g/dL Albumin (3.9-5) g/dL Prealbumin (0.200-0.400) g/L 05/24/17 05/24/17 Range/Units 05:00 07:18 RBC (3.65-5.03) M/mm3 Hgb (11.8-15.2) gm/dl Hct (35.5-45.6) % Lymph % (Auto) (13.4-35.0) % [place] % (Auto) (0.0-7.3) % Lymph # (1.2-5.4) K/mm3 [place] # (0.0-0.8) K/mm3 Seg Neutrophils % (40.0-70.0) % PT (12.2-14.9) Sec. INR (0.87-1.13) Sodium 133 L (137-145) mmol/L Carbon Dioxide 20 L (22-30) mmol/L Glucose 196 H (75-100) mg/dL POC Glucose 180 H (70-105) Calcium 7.3 L (8.4-10.2) mg/dL AST 59 H (5-40) units/L ALT 68 H (7-56) units/L Total Protein 5.6 L (6.3-8.2) g/dL Albumin 1.9 L (3.9-5) g/dL Prealbumin (0.200-0.400) g/L
[2017-05-24] MEDS ORDERED: DILAUDID IV PRN (08:46)
[2017-05-24] MEDS: VANCOMYCIN 1,500 MG in NACL 0.9% 500 ML 500 ML IV SCH ×3 (09:42→20:59)
[2017-05-24] MEDS: PLAVIX PO SCH (09:48)
[2017-05-24] MEDS: FOLBEE PLUS CZ PO SCH (09:48)
[2017-05-24] MEDS: LYRICA PO SCH ×2 (09:49)
[2017-05-24] MEDS: COLACE PO SCH ×2 (09:49→22:55)
[2017-05-24] MEDS: ZESTRIL PO SCH (09:49)
[2017-05-24] MEDS: TOPROL XL PO SCH (09:50)
[2017-05-24] MEDS: SENOKOT PO SCH ×2 (09:51→22:54)
[2017-05-24] MEDS: PEPCID PO SCH (09:51)
[2017-05-24] MEDS: ZOSYN/NS 3.375GM/50ML 3.375 GM/50 ML BAG IV SCH ×3 (09:52→23:02)
[2017-05-24] MEDS: NORCO 5/325 PO PRN ×2 (09:57→23:51)
--- NOTE | 2017-05-24 10:47 | Progress Note ---
Assessment and Plan PVD with left foot gangrene s/p Diagnostic Left Lower Extremity Arteriogram, Angioplasty and Stent of Left External Leg Artery, left Femoral Endarterectomy, and Left Femoral Artery to Posterior Tibial Artery Bypass With In Situ Left Greater Saphenous Vein Graft s/p left open transmetatarsal amputation CAD s/p CABG Nuclear stress test showing no ischemia, fixed inferior and inferolateral wall defect consistent with prior LA, LVEF 46% Echo showing LVEF 40-45% with inferior wall hypokinesis and mild aortic stenosis Hyperlipidemia Hypertension Recommendations: Continue medical therapy for coronary artery disease. Conservative cardiac management. Subjective Date of service: 05/24/17 Principal diagnosis: PVD s/p Femoral-Post Tibial Artery Bypass; CAD s/p CABG; Diabetes II Interval history: Patient is resting in bed comfortably with eyes closed. Objective Vital Signs Temp Pulse Pulse Resp BP BP Pulse Ox 05/24/17 10:00 98.2 F 78 80 18 110/63 05/24/17 09:50 80 110/63 05/24/17 09:49 80 110/63 05/23/17 22:00 18 98 05/23/17 20:00 99.1 F 86 18 119/69 98 - Physical Examination General: No Apparent Distress Cardiac: Positive: Reg Rate and Rhythm Neuro: Positive: Grossly Intact Abdomen: Positive: Soft Skin: Positive: Clear Extremities: Present: Ulceration Noted. Absent: edema - Labs and Meds Cardiac Enzymes 05/24/17 Range/Units 05:00 AST 59 H (5-40) units/L Coagulation 05/24/17 Range/Units 05:00 PT 15.7 H (12.2-14.9) Sec. INR 1.19 H (0.87-1.13) CBC 05/24/17 Range/Units 05:00 WBC 9.8 (4.5-11.0) K/mm3 RBC 2.48 L (3.65-5.03) M/mm3 Hgb 7.3 L (11.8-15.2) gm/dl Hct 22.2 L (35.5-45.6) % Plt Count 266 (140-440) K/mm3 Lymph # 1.0 L (1.2-5.4) K/mm3 [place] # 1.3 H (0.0-0.8) K/mm3 Eos # 0.1 (0.0-0.4) K/mm3 Baso # 0.0 (0.0-0.1) K/mm3 Comprehensive Metabolic Panel 05/24/17 Range/Units 05:00 Sodium 133 L (137-145) mmol/L Potassium 3.9 (3.6-5.0) mmol/L Chloride 101.1 (98-107) mmol/L Carbon Dioxide 20 L (22-30) mmol/L BUN 15 (9-20) mg/dL Creatinine 0.8 (0.8-1.5) mg/dL Glucose 196 H (75-100) mg/dL Calcium 7.3 L (8.4-10.2) mg/dL AST 59 H (5-40) units/L ALT 68 H (7-56) units/L Alkaline Phosphatase 62 (35-129) units/L Total Protein 5.6 L (6.3-8.2) g/dL Albumin 1.9 L (3.9-5) g/dL
--- NOTE | 2017-05-24 10:55 | Progress Note ---
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 transplanted heart: N Associated angina: without angina Plan to address problem: - medical management suggested - EF 40-45% - per cardiology recs - on plavix, lisinopril and lipitor (3) IDDM (insulin dependent diabetes mellitus) Status: Chronic Plan to address problem: - continue SSI - continue levimir at 40units sq qhs - accuchecks qac & qhs (4) Discharge planning issues Status: Acute Plan to address problem: - per attending - inpatient rehabilitation planned Subjective Date of service: 05/24/17 Principal diagnosis: PVD s/p Femoral-Post Tibial Artery Bypass; CAD s/p CABG; Diabetes II Interval history: Seen and examined at bedside; 24 hour events reviewed; nursing and respiratory care staff consulted; no adverse overnight events reported to me; resting in bed ; denies acute chest pains or increased SOB; minimal lower extremity pain Objective Vital Signs - 12hr 05/24/17 05/24/17 05/24/17 09:49 09:50 10:00 Temperature 98.2 F Pulse Rate 80 80 78 Pulse Rate [ 80 From Monitor] Respiratory 18 Rate Blood Pressure 110/63 110/63 Blood Pressure 110/63 [Left Arm] Constitutional: no acute distress, alert Eyes: non-icteric ENT: oropharynx moist Neck: supple, no lymphadenopathy Effort: normal Ascultation: Bilateral: clear, diminished breath sounds Cardiovascular: regular rate and rhythm Gastrointestinal: normoactive bowel sounds, soft, non-tender Integumentary: cellulitis (Left foot.) Extremities: no cyanosis, no edema, other (left foot in clean dressing and MIKALA bandage) Neurologic: normal mental status, non-focal exam, pupils equal and round, motor strength normal and Psychiatric: mood appropriate, affect normal CBC and BMP: 05/26/17 04:00 05/26/17 04:00 ABG, PT/INR, D-dimer: PT/INR, D-dimer PT 15.7 Sec. (12.2-14.9) H 05/24/17 05:00 INR 1.19 (0.87-1.13) H 05/24/17 05:00 Abnormal lab findings: Abnormal Labs 05/01/17 05/01/17 05/01/17 14:55 14:55 14:55 WBC 12.0 H RBC Hgb POC Hgb Hct POC Hct RDW 12.9 L Lymph % (Auto) 6.3 L [place] % (Auto) Lymph # 0.8 L [place] # 0.9 H Seg Neutrophils % 85.9 H Lymphocytes % (Manual) Monocytes % (Manual) Seg Neutrophils # 10.3 H PT INR 1.15 H APTT 37.7 H Heparin Anti-Xa Level POC Sodium POC Potassium Sodium Potassium Chloride 97.8 L Carbon Dioxide POC BUN BUN 23 H Creatinine Glucose 321 H POC Glucose Hemoglobin A1c Calcium AST ALT Total Protein Albumin Prealbumin Crossmatch 05/01/17 05/01/17 05/02/17 18:32 21:49 03:51 WBC RBC Hgb POC Hgb Hct POC Hct RDW 12.8 L Lymph % (Auto) [place] % (Auto) 12.4 H Lymph # [place] # 1.0 H Seg Neutrophils % Lymphocytes % (Manual) Monocytes % (Manual) Seg Neutrophils # PT INR APTT Heparin Anti-Xa Level POC Sodium POC Potassium Sodium Potassium Chloride Carbon Dioxide POC BUN BUN Creatinine Glucose POC Glucose 247 H 280 H Hemoglobin A1c Calcium AST ALT Total Protein Albumin Prealbumin Crossmatch 05/02/17 05/02/17 05/02/17 03:51 03:51 07:27 WBC RBC Hgb POC Hgb Hct POC Hct RDW Lymph % (Auto) [place] % (Auto) Lymph # [place] # Seg Neutrophils % Lymphocytes % (Manual) Monocytes % (Manual) Seg Neutrophils # PT INR APTT Heparin Anti-Xa Level 0.22 L POC Sodium POC Potassium Sodium Potassium Chloride Carbon Dioxide POC BUN BUN Creatinine Glucose 136 H POC Glucose 115 H Hemoglobin A1c Calcium AST ALT Total Protein Albumin Prealbumin Crossmatch 05/02/17 05/02/17 05/02/17 11:50 20:33 21:56 WBC RBC Hgb POC Hgb Hct POC Hct RDW Lymph % (Auto) [place] % (Auto) Lymph # [place] # Seg Neutrophils % Lymphocytes % (Manual) Monocytes % (Manual) Seg Neutrophils # PT INR APTT Heparin Anti-Xa Level 0.24 L POC Sodium POC Potassium Sodium Potassium Chloride Carbon Dioxide POC BUN BUN Creatinine Glucose POC Glucose 165 H 248 H Hemoglobin A1c Calcium AST ALT Total Protein Albumin Prealbumin Crossmatch 05/03/17 05/03/17 05/03/17 03:23 05:14 05:14 WBC RBC Hgb POC Hgb Hct POC Hct RDW 12.8 L Lymph % (Auto) [place] % (Auto) 14.1 H Lymph # [place] # 1.2 H Seg Neutrophils % Lymphocytes % (Manual) Monocytes % (Manual) Seg Neutrophils # PT INR APTT 101.1 H* Heparin Anti-Xa Level POC Sodium POC Potassium Sodium 136 L Potassium Chloride Carbon Dioxide POC BUN BUN Creatinine Glucose 116 H POC Glucose Hemoglobin A1c Calcium AST ALT Total Protein Albumin 3.0 L Prealbumin Crossmatch 05/03/17 05/03/17 05/03/17 05:14 11:48 11:51 WBC RBC Hgb POC Hgb Hct POC Hct RDW Lymph % (Auto) [place] % (Auto) Lymph # [place] # Seg Neutrophils % Lymphocytes % (Manual) Monocytes % (Manual) Seg Neutrophils # PT INR APTT Heparin Anti-Xa Level 0.26 L POC Sodium POC Potassium Sodium Potassium Chloride Carbon Dioxide POC BUN BUN Creatinine Glucose POC Glucose 128 H Hemoglobin A1c 10.2 H Calcium AST ALT Total Protein Albumin Prealbumin Crossmatch 05/03/17 05/03/17 05/04/17 18:50 22:17 04:02 WBC RBC Hgb POC Hgb Hct POC Hct RDW 12.9 L Lymph % (Auto) [place] % (Auto) Lymph # [place] # Seg Neutrophils % Lymphocytes % (Manual) 13.0 L Monocytes % (Manual) 9.0 H Seg Neutrophils # PT INR APTT Heparin Anti-Xa Level POC Sodium POC Potassium Sodium Potassium Chloride Carbon Dioxide POC BUN BUN Creatinine Glucose POC Glucose 314 H 312 H Hemoglobin A1c Calcium AST ALT Total Protein Albumin Prealbumin Crossmatch 05/04/17 05/04/17 05/04/17 04:02 07:49 11:54 WBC RBC Hgb POC Hgb Hct POC Hct RDW Lymph % (Auto) [place] % (Auto) Lymph # [place] # Seg Neutrophils % Lymphocytes % (Manual) Monocytes % (Manual) Seg Neutrophils # PT INR APTT Heparin Anti-Xa Level POC Sodium POC Potassium Sodium 134 L Potassium 5.2 H Chloride 96.2 L Carbon Dioxide POC BUN BUN 21 H Creatinine Glucose 251 H POC Glucose 177 H 186 H Hemoglobin A1c Calcium AST ALT Total Protein Albumin 3.0 L Prealbumin Crossmatch 05/04/17 05/04/17 05/05/17 17:46 22:51 05:09 WBC RBC Hgb POC Hgb Hct POC Hct RDW Lymph % (Auto) [place] % (Auto) Lymph # [place] # Seg Neutrophils % Lymphocytes % (Manual) Monocytes % (Manual) Seg Neutrophils # PT INR APTT Heparin Anti-Xa Level POC Sodium POC Potassium Sodium 135 L Potassium Chloride Carbon Dioxide POC BUN BUN Creatinine Glucose 179 H POC Glucose 244 H 265 H Hemoglobin A1c Calcium AST ALT Total Protein Albumin 2.9 L Prealbumin Crossmatch 05/05/17 05/05/17 05/05/17 05:09 07:39 11:24 WBC RBC Hgb POC Hgb Hct POC Hct RDW Lymph % (Auto) [place] % (Auto) Lymph # [place] # Seg Neutrophils % Lymphocytes % (Manual) Monocytes % (Manual) Seg Neutrophils # PT INR APTT Heparin Anti-Xa Level 0.15 L 0.29 L POC Sodium POC Potassium Sodium Potassium Chloride Carbon Dioxide POC BUN BUN Creatinine Glucose POC Glucose 153 H Hemoglobin A1c Calcium AST ALT Total Protein Albumin Prealbumin Crossmatch 05/05/17 05/05/17 05/05/17 11:53 16:33 22:05 WBC RBC Hgb POC Hgb Hct POC Hct RDW Lymph % (Auto) [place] % (Auto) Lymph # [place] # Seg Neutrophils % Lymphocytes % (Manual) Monocytes % (Manual) Seg Neutrophils # PT INR APTT Heparin Anti-Xa Level POC Sodium POC Potassium Sodium Potassium Chloride Carbon Dioxide POC BUN BUN Creatinine Glucose POC Glucose 171 H 317 H 313 H Hemoglobin A1c Calcium AST ALT Total Protein Albumin Prealbumin Crossmatch 05/06/17 05/06/17 05/06/17 07:32 11:47 16:28 WBC RBC Hgb POC Hgb Hct POC Hct RDW Lymph % (Auto) [place] % (Auto) Lymph # [place] # Seg Neutrophils % Lymphocytes % (Manual) Monocytes % (Manual) Seg Neutrophils # PT INR APTT Heparin Anti-Xa Level POC Sodium POC Potassium Sodium Potassium Chloride Carbon Dioxide POC BUN BUN Creatinine Glucose POC Glucose 176 H 210 H 283 H Hemoglobin A1c Calcium AST ALT Total Protein Albumin Prealbumin Crossmatch 05/06/17 05/07/17 05/07/17 21:33 03:56 07:11 WBC RBC Hgb POC Hgb Hct POC Hct RDW Lymph % (Auto) [place] % (Auto) Lymph # [place] # Seg Neutrophils % Lymphocytes % (Manual) Monocytes % (Manual) Seg Neutrophils # PT INR APTT Heparin Anti-Xa Level 0.10 L POC Sodium POC Potassium Sodium Potassium Chloride Carbon Dioxide POC BUN BUN Creatinine Glucose POC Glucose 264 H 276 H Hemoglobin A1c Calcium AST ALT Total Protein Albumin Prealbumin Crossmatch 05/07/17 05/07/17 05/07/17 11:48 11:48 16:11 WBC RBC Hgb POC Hgb Hct POC Hct RDW Lymph % (Auto) [place] % (Auto) Lymph # [place] # Seg Neutrophils % Lymphocytes % (Manual) Monocytes % (Manual) Seg Neutrophils # PT INR APTT Heparin Anti-Xa Level POC Sodium 137 L POC Potassium 5.5 H Sodium Potassium Chloride Carbon Dioxide POC BUN 31 H BUN Creatinine Glucose POC Glucose 128 H 158 H Hemoglobin A1c Calcium AST ALT Total Protein Albumin Prealbumin Crossmatch See Detail 05/07/17 05/07/17 05/07/17 16:44 20:28 22:47 WBC RBC Hgb POC Hgb 11.6 L Hct POC Hct 34 L RDW Lymph % (Auto) [place] % (Auto) Lymph # [place] # Seg Neutrophils % Lymphocytes % (Manual) Monocytes % (Manual) Seg Neutrophils # PT INR APTT Heparin Anti-Xa Level POC Sodium POC Potassium 5.0 H Sodium Potassium Chloride Carbon Dioxide POC BUN 27 H BUN Creatinine Glucose POC Glucose 170 H 203 H 253 H Hemoglobin A1c Calcium AST ALT Total Protein Albumin Prealbumin Crossmatch 05/08/17 05/08/17 05/08/17 04:23 07:57 12:01 WBC RBC Hgb POC Hgb Hct POC Hct RDW Lymph % (Auto) [place] % (Auto) Lymph # [place] # Seg Neutrophils % Lymphocytes % (Manual) Monocytes % (Manual) Seg Neutrophils # PT INR APTT Heparin Anti-Xa Level POC Sodium POC Potassium Sodium Potassium 5.3 H D Chloride Carbon Dioxide 19 L POC BUN BUN 29 H Creatinine Glucose 223 H POC Glucose 258 H 282 H Hemoglobin A1c Calcium 8.2 L AST ALT Total Protein Albumin Prealbumin Crossmatch 05/08/17 05/08/17 05/08/17 15:42 19:44 21:39 WBC RBC Hgb POC Hgb Hct POC Hct RDW Lymph % (Auto) [place] % (Auto) Lymph # [place] # Seg Neutrophils % Lymphocytes % (Manual) Monocytes % (Manual) Seg Neutrophils # PT INR APTT Heparin Anti-Xa Level 0.25 L POC Sodium POC Potassium Sodium Potassium Chloride Carbon Dioxide POC BUN BUN Creatinine Glucose POC Glucose 280 H 329 H Hemoglobin A1c Calcium AST ALT Total Protein Albumin Prealbumin Crossmatch 05/09/17 05/09/17 05/09/17 01:52 08:27 12:02 WBC RBC Hgb POC Hgb Hct POC Hct RDW Lymph % (Auto) [place] % (Auto) Lymph # [place] # Seg Neutrophils % Lymphocytes % (Manual) Monocytes % (Manual) Seg Neutrophils # PT INR APTT Heparin Anti-Xa Level 0.29 L POC Sodium POC Potassium Sodium Potassium Chloride Carbon Dioxide POC BUN BUN Creatinine Glucose POC Glucose 187 H 190 H Hemoglobin A1c Calcium AST ALT Total Protein Albumin Prealbumin Crossmatch 05/09/17 05/09/17 05/10/17 16:42 21:58 03:41 WBC 13.4 H RBC 3.61 L Hgb 10.8 L POC Hgb Hct 31.9 L POC Hct RDW 13.1 L Lymph % (Auto) 12.9 L [place] % (Auto) 12.2 H Lymph # [place] # 1.6 H Seg Neutrophils % 74.1 H Lymphocytes % (Manual) Monocytes % (Manual) Seg Neutrophils # 10.0 H PT INR APTT Heparin Anti-Xa Level POC Sodium POC Potassium Sodium Potassium Chloride Carbon Dioxide POC BUN BUN Creatinine Glucose POC Glucose 245 H 344 H Hemoglobin A1c Calcium AST ALT Total Protein Albumin Prealbumin Crossmatch 05/10/17 05/10/17 05/10/17 03:41 07:31 12:08 WBC RBC Hgb POC Hgb Hct POC Hct RDW Lymph % (Auto) [place] % (Auto) Lymph # [place] # Seg Neutrophils % Lymphocytes % (Manual) Monocytes % (Manual) Seg Neutrophils # PT INR APTT Heparin Anti-Xa Level POC Sodium POC Potassium Sodium 134 L Potassium Chloride Carbon Dioxide 21 L POC BUN BUN Creatinine Glucose 171 H POC Glucose 127 H 172 H Hemoglobin A1c Calcium 8.2 L AST 51 H ALT Total Protein Albumin 2.2 L Prealbumin Crossmatch 05/10/17 05/10/17 05/11/17 16:28 21:04 05:03 WBC 19.1 H RBC 3.64 L Hgb 10.7 L POC Hgb Hct 32.1 L POC Hct RDW Lymph % (Auto) 11.8 L [place] % (Auto) 10.8 H Lymph # [place] # 2.1 H Seg Neutrophils % 75.6 H Lymphocytes % (Manual) Monocytes % (Manual) Seg Neutrophils # 14.4 H PT INR APTT Heparin Anti-Xa Level POC Sodium POC Potassium Sodium Potassium Chloride Carbon Dioxide POC BUN BUN Creatinine Glucose POC Glucose 197 H 295 H Hemoglobin A1c Calcium AST ALT Total Protein Albumin Prealbumin Crossmatch 05/11/17 05/11/17 05/11/17 05:03 07:30 09:52 WBC RBC Hgb POC Hgb Hct POC Hct RDW Lymph % (Auto) [place] % (Auto) Lymph # [place] # Seg Neutrophils % Lymphocytes % (Manual) Monocytes % (Manual) Seg Neutrophils # PT INR APTT Heparin Anti-Xa Level POC Sodium POC Potassium Sodium Potassium 5.2 H Chloride Carbon Dioxide POC BUN BUN Creatinine Glucose 143 H POC Glucose 118 H 124 H Hemoglobin A1c Calcium AST 51 H ALT Total Protein Albumin 2.7 L Prealbumin Crossmatch 05/11/17 05/11/17 05/11/17 11:32 12:22 16:22 WBC RBC Hgb POC Hgb Hct POC Hct RDW Lymph % (Auto) [place] % (Auto) Lymph # [place] # Seg Neutrophils % Lymphocytes % (Manual) Monocytes % (Manual) Seg Neutrophils # PT INR APTT Heparin Anti-Xa Level < 0.10 L POC Sodium POC Potassium Sodium Potassium Chloride Carbon Dioxide POC BUN BUN Creatinine Glucose POC Glucose 119 H 197 H Hemoglobin A1c Calcium AST ALT Total Protein Albumin Prealbumin Crossmatch 05/11/17 05/12/17 05/12/17 22:06 05:35 05:35 WBC RBC 3.64 L Hgb 10.8 L POC Hgb Hct 32.5 L POC Hct RDW Lymph % (Auto) 8.0 L [place] % (Auto) 12.8 H Lymph # 0.8 L [place] # 1.3 H Seg Neutrophils % 77.9 H Lymphocytes % (Manual) Monocytes % (Manual) Seg Neutrophils # 8.2 H PT INR APTT Heparin Anti-Xa Level POC Sodium POC Potassium Sodium 136 L Potassium Chloride Carbon Dioxide POC BUN BUN Creatinine Glucose 210 H POC Glucose 296 H Hemoglobin A1c Calcium 8.3 L AST ALT Total Protein 6.2 L Albumin 2.6 L Prealbumin Crossmatch 05/12/17 05/12/17 05/12/17 07:26 11:30 11:41 WBC RBC Hgb 11.4 L POC Hgb Hct 35.1 L POC Hct RDW Lymph % (Auto) [place] % (Auto) Lymph # [place] # Seg Neutrophils % Lymphocytes % (Manual) Monocytes % (Manual) Seg Neutrophils # PT INR APTT Heparin Anti-Xa Level POC Sodium POC Potassium Sodium Potassium Chloride Carbon Dioxide POC BUN BUN Creatinine Glucose POC Glucose 171 H 126 H Hemoglobin A1c Calcium AST ALT Total Protein Albumin Prealbumin Crossmatch 05/12/17 05/12/17 05/12/17 16:23 21:14 21:50 WBC RBC Hgb POC Hgb Hct POC Hct RDW Lymph % (Auto) [place] % (Auto) Lymph # [place] # Seg Neutrophils % Lymphocytes % (Manual) Monocytes % (Manual) Seg Neutrophils # PT INR APTT Heparin Anti-Xa Level 0.22 L POC Sodium POC Potassium Sodium Potassium Chloride Carbon Dioxide POC BUN BUN Creatinine Glucose POC Glucose 223 H 308 H Hemoglobin A1c Calcium AST ALT Total Protein Albumin Prealbumin Crossmatch 05/13/17 05/13/17 05/13/17 04:21 07:24 11:46 WBC RBC Hgb POC Hgb Hct POC Hct RDW Lymph % (Auto) [place] % (Auto) Lymph # [place] # Seg Neutrophils % Lymphocytes % (Manual) Monocytes % (Manual) Seg Neutrophils # PT INR APTT Heparin Anti-Xa Level 0.23 L POC Sodium POC Potassium Sodium Potassium Chloride Carbon Dioxide POC BUN BUN Creatinine Glucose POC Glucose 112 H 206 H Hemoglobin A1c Calcium AST ALT Total Protein Albumin Prealbumin Crossmatch 05/13/17 05/13/17 05/13/17 11:57 16:42 21:44 WBC RBC Hgb POC Hgb Hct POC Hct RDW Lymph % (Auto) [place] % (Auto) Lymph # [place] # Seg Neutrophils % Lymphocytes % (Manual) Monocytes % (Manual) Seg Neutrophils # PT INR APTT Heparin Anti-Xa Level 0.21 L POC Sodium POC Potassium Sodium Potassium Chloride Carbon Dioxide POC BUN BUN Creatinine Glucose POC Glucose 217 H 245 H Hemoglobin A1c Calcium AST ALT Total Protein Albumin Prealbumin Crossmatch 05/14/17 05/14/17 05/14/17 07:13 16:03 21:01 WBC RBC Hgb 10.9 L POC Hgb Hct 33.1 L POC Hct RDW Lymph % (Auto) [place] % (Auto) Lymph # [place] # Seg Neutrophils % Lymphocytes % (Manual) Monocytes % (Manual) Seg Neutrophils # PT INR APTT Heparin Anti-Xa Level POC Sodium POC Potassium Sodium Potassium Chloride Carbon Dioxide POC BUN BUN Creatinine Glucose POC Glucose 144 H 262 H Hemoglobin A1c Calcium AST ALT Total Protein Albumin Prealbumin Crossmatch 05/15/17 05/15/17 05/15/17 07:39 11:31 16:24 WBC RBC Hgb POC Hgb Hct POC Hct RDW Lymph % (Auto) [place] % (Auto) Lymph # [place] # Seg Neutrophils % Lymphocytes % (Manual) Monocytes % (Manual) Seg Neutrophils # PT INR APTT Heparin Anti-Xa Level POC Sodium POC Potassium Sodium Potassium Chloride Carbon Dioxide POC BUN BUN Creatinine Glucose POC Glucose 246 H 297 H 319 H Hemoglobin A1c Calcium AST ALT Total Protein Albumin Prealbumin Crossmatch 05/15/17 05/16/17 05/16/17 20:55 07:39 09:03 WBC RBC Hgb 8.4 L POC Hgb Hct 25.9 L D POC Hct RDW Lymph % (Auto) [place] % (Auto) Lymph # [place] # Seg Neutrophils % Lymphocytes % (Manual) Monocytes % (Manual) Seg Neutrophils # PT INR APTT Heparin Anti-Xa Level POC Sodium POC Potassium Sodium Potassium Chloride Carbon Dioxide POC BUN BUN Creatinine Glucose POC Glucose 344 H 110 H Hemoglobin A1c Calcium AST ALT Total Protein Albumin Prealbumin Crossmatch 05/16/17 05/16/17 05/16/17 11:51 16:48 23:09 WBC RBC Hgb POC Hgb Hct POC Hct RDW Lymph % (Auto) [place] % (Auto) Lymph # [place] # Seg Neutrophils % Lymphocytes % (Manual) Monocytes % (Manual) Seg Neutrophils # PT INR APTT Heparin Anti-Xa Level POC Sodium POC Potassium Sodium Potassium Chloride Carbon Dioxide POC BUN BUN Creatinine Glucose POC Glucose 119 H 188 H 219 H Hemoglobin A1c Calcium AST ALT Total Protein Albumin Prealbumin Crossmatch 05/17/17 05/17/17 05/17/17 04:39 04:39 07:34 WBC 18.6 H RBC 2.64 L Hgb 7.6 L POC Hgb Hct 23.3 L POC Hct RDW Lymph % (Auto) 7.2 L [place] % (Auto) 13.3 H Lymph # [place] # 2.5 H Seg Neutrophils % 79.2 H Lymphocytes % (Manual) Monocytes % (Manual) Seg Neutrophils # 14.8 H PT INR APTT Heparin Anti-Xa Level POC Sodium POC Potassium Sodium 133 L Potassium Chloride 95.5 L Carbon Dioxide POC BUN BUN 26 H Creatinine 1.6 H D Glucose 183 H POC Glucose 144 H Hemoglobin A1c Calcium 8.2 L AST 154 H ALT 79 H Total Protein Albumin 2.6 L Prealbumin Crossmatch 05/17/17 05/17/17 05/17/17 09:17 16:23 22:37 WBC RBC Hgb 8.3 L POC Hgb Hct 24.8 L POC Hct RDW Lymph % (Auto) [place] % (Auto) Lymph # [place] # Seg Neutrophils % Lymphocytes % (Manual) Monocytes % (Manual) Seg Neutrophils # PT INR APTT Heparin Anti-Xa Level POC Sodium POC Potassium Sodium Potassium Chloride Carbon Dioxide POC BUN BUN Creatinine Glucose POC Glucose 145 H 207 H Hemoglobin A1c Calcium AST ALT Total Protein Albumin Prealbumin Crossmatch 05/18/17 05/18/17 05/18/17 04:23 04:23 07:37 WBC 19.8 H RBC 2.73 L Hgb 7.9 L POC Hgb Hct 24.2 L POC Hct RDW Lymph % (Auto) 6.1 L [place] % (Auto) 13.8 H Lymph # [place] # 2.7 H Seg Neutrophils % 79.8 H Lymphocytes % (Manual) Monocytes % (Manual) Seg Neutrophils # 15.8 H PT INR APTT Heparin Anti-Xa Level POC Sodium POC Potassium Sodium 133 L Potassium Chloride 93.3 L Carbon Dioxide POC BUN BUN 26 H Creatinine Glucose 145 H POC Glucose 144 H Hemoglobin A1c Calcium AST 189 H ALT 101 H Total Protein Albumin 2.7 L Prealbumin Crossmatch 05/18/17 05/18/17 05/18/17 11:24 16:48 19:26 WBC RBC Hgb POC Hgb Hct POC Hct RDW Lymph % (Auto) [place] % (Auto) Lymph # [place] # Seg Neutrophils % Lymphocytes % (Manual) Monocytes % (Manual) Seg Neutrophils # PT INR APTT Heparin Anti-Xa Level 0.20 L POC Sodium POC Potassium Sodium Potassium Chloride Carbon Dioxide POC BUN BUN Creatinine Glucose POC Glucose 142 H 226 H Hemoglobin A1c Calcium AST ALT Total Protein Albumin Prealbumin Crossmatch 05/18/17 05/19/17 05/19/17 21:53 07:27 12:38 WBC RBC Hgb POC Hgb Hct POC Hct RDW Lymph % (Auto) [place] % (Auto) Lymph # [place] # Seg Neutrophils % Lymphocytes % (Manual) Monocytes % (Manual) Seg Neutrophils # PT INR APTT Heparin Anti-Xa Level POC Sodium POC Potassium Sodium Potassium Chloride Carbon Dioxide POC BUN BUN Creatinine Glucose POC Glucose 275 H 164 H 266 H Hemoglobin A1c Calcium AST ALT Total Protein Albumin Prealbumin Crossmatch 05/19/17 05/19/17 05/19/17 13:03 16:25 22:19 WBC 19.4 H RBC 2.68 L Hgb 7.7 L POC Hgb Hct 23.7 L POC Hct RDW Lymph % (Auto) 5.7 L [place] % (Auto) 11.2 H Lymph # 1.1 L [place] # 2.2 H Seg Neutrophils % 82.9 H Lymphocytes % (Manual) Monocytes % (Manual) Seg Neutrophils # 16.1 H PT INR APTT Heparin Anti-Xa Level POC Sodium POC Potassium Sodium Potassium Chloride Carbon Dioxide POC BUN BUN Creatinine Glucose POC Glucose 253 H 182 H Hemoglobin A1c Calcium AST ALT Total Protein Albumin Prealbumin Crossmatch 05/20/17 05/20/17 05/20/17 07:14 07:14 16:11 WBC 17.6 H RBC 2.77 L Hgb 7.8 L 7.9 L POC Hgb Hct 23.7 L 24.8 L POC Hct RDW Lymph % (Auto) 8.2 L [place] % (Auto) 11.7 H Lymph # [place] # 2.1 H Seg Neutrophils % 79.1 H Lymphocytes % (Manual) Monocytes % (Manual) Seg Neutrophils # 14.0 H PT INR APTT Heparin Anti-Xa Level POC Sodium POC Potassium Sodium Potassium Chloride Carbon Dioxide POC BUN BUN Creatinine Glucose POC Glucose 142 H Hemoglobin A1c Calcium AST ALT Total Protein Albumin Prealbumin Crossmatch 05/20/17 05/21/17 05/21/17 21:49 03:58 03:58 WBC 13.1 H RBC 2.34 L Hgb 6.7 L POC Hgb Hct 20.8 L POC Hct RDW Lymph % (Auto) 9.0 L [place] % (Auto) 11.1 H Lymph # [place] # 1.5 H Seg Neutrophils % 79.0 H Lymphocytes % (Manual) Monocytes % (Manual) Seg Neutrophils # 10.3 H PT INR APTT Heparin Anti-Xa Level POC Sodium POC Potassium Sodium 134 L Potassium Chloride 97.2 L Carbon Dioxide POC BUN BUN Creatinine Glucose 115 H POC Glucose 240 H Hemoglobin A1c Calcium 7.9 L AST 154 H ALT 137 H Total Protein Albumin 2.2 L Prealbumin Crossmatch 05/21/17 05/21/17 05/21/17 10:51 11:53 16:23 WBC RBC Hgb POC Hgb Hct POC Hct RDW Lymph % (Auto) [place] % (Auto) Lymph # [place] # Seg Neutrophils % Lymphocytes % (Manual) Monocytes % (Manual) Seg Neutrophils # PT INR APTT Heparin Anti-Xa Level POC Sodium POC Potassium Sodium Potassium Chloride Carbon Dioxide POC BUN BUN Creatinine Glucose POC Glucose 158 H 206 H Hemoglobin A1c Calcium AST ALT Total Protein Albumin Prealbumin Crossmatch See Detail 05/21/17 05/22/17 05/22/17 23:02 06:21 07:20 WBC RBC Hgb POC Hgb Hct POC Hct RDW Lymph % (Auto) [place] % (Auto) Lymph # [place] # Seg Neutrophils % Lymphocytes % (Manual) Monocytes % (Manual) Seg Neutrophils # PT INR APTT Heparin Anti-Xa Level POC Sodium POC Potassium Sodium 136 L Potassium Chloride Carbon Dioxide POC BUN BUN Creatinine Glucose 175 H POC Glucose 357 H 193 H Hemoglobin A1c Calcium 7.8 L AST 93 H ALT 124 H Total Protein 5.8 L Albumin 2.5 L Prealbumin Crossmatch 05/22/17 05/22/17 05/22/17 07:40 11:30 17:25 WBC 12.7 H RBC 2.90 L Hgb 8.5 L POC Hgb Hct 26.1 L POC Hct RDW Lymph % (Auto) 8.2 L [place] % (Auto) 11.5 H Lymph # 1.0 L [place] # 1.5 H Seg Neutrophils % 79.5 H Lymphocytes % (Manual) Monocytes % (Manual) Seg Neutrophils # 10.1 H PT INR APTT Heparin Anti-Xa Level POC Sodium POC Potassium Sodium Potassium Chloride Carbon Dioxide POC BUN BUN Creatinine Glucose POC Glucose 136 H 153 H Hemoglobin A1c Calcium AST ALT Total Protein Albumin Prealbumin Crossmatch 05/22/17 05/23/17 05/23/17 21:37 06:18 06:18 WBC 14.1 H RBC 2.79 L Hgb 8.1 L POC Hgb Hct 24.7 L POC Hct RDW Lymph % (Auto) 10.1 L [place] % (Auto) 13.0 H Lymph # [place] # 1.8 H Seg Neutrophils % 76.0 H Lymphocytes % (Manual) Monocytes % (Manual) Seg Neutrophils # 10.7 H PT INR APTT Heparin Anti-Xa Level POC Sodium POC Potassium Sodium Potassium Chloride Carbon Dioxide 21 L POC BUN BUN Creatinine Glucose 71 L POC Glucose 273 H Hemoglobin A1c Calcium 8.0 L AST 76 H ALT 95 H Total Protein 6.2 L Albumin 2.0 L Prealbumin Crossmatch 05/23/17 05/23/17 05/23/17 07:19 11:29 11:52 WBC RBC Hgb POC Hgb Hct POC Hct RDW Lymph % (Auto) [place] % (Auto) Lymph # [place] # Seg Neutrophils % Lymphocytes % (Manual) Monocytes % (Manual) Seg Neutrophils # PT INR APTT Heparin Anti-Xa Level POC Sodium POC Potassium Sodium Potassium Chloride Carbon Dioxide POC BUN BUN Creatinine Glucose POC Glucose 67 L 134 H Hemoglobin A1c Calcium AST ALT Total Protein Albumin Prealbumin 0.030 L Crossmatch 05/23/17 05/23/17 05/24/17 16:41 21:55 05:00 WBC RBC 2.48 L Hgb 7.3 L POC Hgb Hct 22.2 L POC Hct RDW Lymph % (Auto) 10.1 L [place] % (Auto) 13.1 H Lymph # 1.0 L [place] # 1.3 H Seg Neutrophils % 75.2 H Lymphocytes % (Manual) Monocytes % (Manual) Seg Neutrophils # PT INR APTT Heparin Anti-Xa Level POC Sodium POC Potassium Sodium Potassium Chloride Carbon Dioxide POC BUN BUN Creatinine Glucose POC Glucose 223 H 262 H Hemoglobin A1c Calcium AST ALT Total Protein Albumin Prealbumin Crossmatch 05/24/17 05/24/17 05/24/17 05:00 05:00 07:18 WBC RBC Hgb POC Hgb Hct POC Hct RDW Lymph % (Auto) [place] % (Auto) Lymph # [place] # Seg Neutrophils % Lymphocytes % (Manual) Monocytes % (Manual) Seg Neutrophils # PT 15.7 H INR 1.19 H APTT Heparin Anti-Xa Level POC Sodium POC Potassium Sodium 133 L Potassium Chloride Carbon Dioxide 20 L POC BUN BUN Creatinine Glucose 196 H POC Glucose 180 H Hemoglobin A1c Calcium 7.3 L AST 59 H ALT 68 H Total Protein 5.6 L Albumin 1.9 L Prealbumin Crossmatch
--- NOTE | 2017-05-24 17:26 | Progress Note ---
Assessment and Plan Continue PT and LWC. Pre-albumin levels low. Will consult Dietary to eval for supplements. D/c planning for inpt rehab in [facility]. - Patient Problems (1) Atherosclerosis of [place] arteries of the extremities with ulceration Onset Date: 08/22/16 Current Visit: No Status: Acute (2) Ischemia of left lower extremity Current Visit: Yes Status: Acute Subjective Date of service: 05/24/17 Principal diagnosis: PVD s/p Femoral-Post Tibial Artery Bypass; CAD s/p CABG; Diabetes II Interval history: Pt sleeping, but awoke easily. Denies complaint at present. Objective - Constitutional Vitals: Vital Signs - 12hr 05/24/17 05/24/17 05/24/17 09:49 09:50 10:00 Temperature 98.2 F Pulse Rate 80 80 78 Pulse Rate [ 80 From Monitor] Respiratory 18 Rate Blood Pressure 110/63 110/63 Blood Pressure 110/63 [Left Arm] General appearance: Present: no acute distress - EENT Eyes: EOM intact ENT: hearing intact - Respiratory Respiratory effort: normal Extremities: normal temperature, abnormal (Groin incisions changed today by ET. Open TMA wound vac in place.) - Neurologic Neurologic: no focal deficits - Psychiatric Psychiatric: appropriate mood/affect, intact judgment & insight, cooperative - Labs CBC & Chem 7: 05/24/17 05:00 05/24/17 05:00 Labs: Abnormal lab results 05/23/17 05/24/17 05/24/17 Range/Units 21:55 05:00 05:00 RBC 2.48 L (3.65-5.03) M/mm3 Hgb 7.3 L (11.8-15.2) gm/dl Hct 22.2 L (35.5-45.6) % Lymph % (Auto) 10.1 L (13.4-35.0) % [place] % (Auto) 13.1 H (0.0-7.3) % Lymph # 1.0 L (1.2-5.4) K/mm3 [place] # 1.3 H (0.0-0.8) K/mm3 Seg Neutrophils % 75.2 H (40.0-70.0) % PT 15.7 H (12.2-14.9) Sec. INR 1.19 H (0.87-1.13) Sodium (137-145) mmol/L Carbon Dioxide (22-30) mmol/L Glucose (75-100) mg/dL POC Glucose 262 H (70-105) Calcium (8.4-10.2) mg/dL AST (5-40) units/L ALT (7-56) units/L Total Protein (6.3-8.2) g/dL Albumin (3.9-5) g/dL 05/24/17 05/24/17 05/24/17 Range/Units 05:00 07:18 11:54 RBC (3.65-5.03) M/mm3 Hgb (11.8-15.2) gm/dl Hct (35.5-45.6) % Lymph % (Auto) (13.4-35.0) % [place] % (Auto) (0.0-7.3) % Lymph # (1.2-5.4) K/mm3 [place] # (0.0-0.8) K/mm3 Seg Neutrophils % (40.0-70.0) % PT (12.2-14.9) Sec. INR (0.87-1.13) Sodium 133 L (137-145) mmol/L Carbon Dioxide 20 L (22-30) mmol/L Glucose 196 H (75-100) mg/dL POC Glucose 180 H 126 H (70-105) Calcium 7.3 L (8.4-10.2) mg/dL AST 59 H (5-40) units/L ALT 68 H (7-56) units/L Total Protein 5.6 L (6.3-8.2) g/dL Albumin 1.9 L (3.9-5) g/dL 05/24/17 Range/Units 16:27 RBC (3.65-5.03) M/mm3 Hgb (11.8-15.2) gm/dl Hct (35.5-45.6) % Lymph % (Auto) (13.4-35.0) % [place] % (Auto) (0.0-7.3) % Lymph # (1.2-5.4) K/mm3 [place] # (0.0-0.8) K/mm3 Seg Neutrophils % (40.0-70.0) % PT (12.2-14.9) Sec. INR (0.87-1.13) Sodium (137-145) mmol/L Carbon Dioxide (22-30) mmol/L Glucose (75-100) mg/dL POC Glucose 217 H (70-105) Calcium (8.4-10.2) mg/dL AST (5-40) units/L ALT (7-56) units/L Total Protein (6.3-8.2) g/dL Albumin (3.9-5) g/dL
[2017-05-24] MEDS: LEVEMIR SUB-Q SCH (22:57)
[2017-05-25] MEDS: LOVENOX SUB-Q SCH ×2 (00:28→13:21)
[2017-05-25] MEDS: ZOSYN/NS 3.375GM/50ML 3.375 GM/50 ML BAG IV SCH ×3 (05:34→21:22)
[2017-05-25] MEDS: NACL 0.9% 1000 ML 1,000 ML IV SCH ×2 (05:35→21:23)
[2017-05-25] MEDS: NOVOLOG SUB-Q SCH ×4 (08:00→21:23)
--- NOTE | 2017-05-25 08:45 | Progress Note ---
Assessment and Plan Pt with T2DM, PAD s/p Left femoral artery angioplasy, left femoral artery endoarterectomy and left femoral artery to post tibia artery bypass done with further intervention on 05/13/17. Had Open TMA of the left foot 05/22/17 for gangrenous left toes - PAD - In severe pain in the left leg. s/p Left femoral artery angioplasy, left femoral artery endoarterectomy and left femoral artery to post tibia artery bypass on 05/07/17. 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 For wound vac and local wound care. - Diabetic peripheral Neuropathy: Continue with Gabapentin - Ischemic cardiomyopathy with EF 40-45% as at 2016 - Dysipidemia: On statin - Bleeding from the incision site on the left leg and hematoma on the left groin. resolved -Anemia: secondary to bleeding at the left leg inaction site from anticoagulation - s/p blood transfusion. May need blood transfuion - Leukocytosis: Improving - Metabolic encephalopathy secondary to confused whenever he get morphine injection. will list as adverse reaction - D/C planing to acute rehab DVT and GI PPx with heparing and pepcid Subjective Date of service: 05/25/17 Principal diagnosis: PVD s/p Femoral-Post Tibial Artery Bypass; CAD s/p CABG; Diabetes II Interval history: Pt seen and examined. No new complaint. Denies any chest pain shortness of braeath. Had left open TMA yesterday 05/22/17. Has mod. post op pain. No bleeding from the incision sites in the left leg. More lucid this morning Objective - Constitutional Vitals: Vital Signs - 12hr 05/24/17 22:00 Temperature 99.4 F Pulse Rate 70 Pulse Rate [ 68 From Monitor] Respiratory 20 Rate Blood Pressure 127/56 [Left Arm] O2 Sat by Pulse 99 Oximetry General appearance: Present: no acute distress, well-nourished - EENT Eyes: PERRL, EOM intact - Neck Neck: supple, normal ROM - Respiratory Respiratory effort: normal Respiratory: bilateral: CTA - Cardiovascular Rhythm: regular Heart Sounds: Present: S1 & S2. Absent: gallop, rub Extremities: pulses intact, No edema, normal color, Full ROM - Gastrointestinal General gastrointestinal: Present: soft, non-tender, non-distended, normal bowel sounds - Integumentary Integumentary: clear, warm, dry - Musculoskeletal Musculoskeletal: 1, strength equal bilaterally - Neurologic Neurologic: moves all extremities - Psychiatric Psychiatric: memory intact, appropriate mood/affect, intact judgment & insight - Labs CBC & Chem 7: 05/24/17 05:00 05/24/17 05:00 Labs: Abnormal lab results 05/24/17 05/24/17 05/24/17 Range/Units 11:54 16:27 22:05 POC Glucose 126 H 217 H 271 H (70-105)
--- NOTE | 2017-05-25 08:54 | Progress Note ---
Assessment and Plan PVD with left foot gangrene s/p Diagnostic Left Lower Extremity Arteriogram, Angioplasty and Stent of Left External Leg Artery, left Femoral Endarterectomy, and Left Femoral Artery to Posterior Tibial Artery Bypass With In Situ Left Greater Saphenous Vein Graft s/p left open transmetatarsal amputation CAD s/p CABG Nuclear stress test showing no ischemia, fixed inferior and inferolateral wall defect consistent with prior OR, LVEF 46% Echo showing LVEF 40-45% with inferior wall hypokinesis and mild aortic stenosis Hyperlipidemia Hypertension DM Anemia s/p transfusion of PRBCs Recommendations: Continue medical therapy for coronary artery disease. Conservative cardiac management. Subjective Date of service: 05/25/17 Principal diagnosis: PVD s/p Femoral-Post Tibial Artery Bypass; CAD s/p CABG; Diabetes II Interval history: Patient is resting in bed comfortably. He has no cardiac complaints. Objective Vital Signs Temp Pulse Pulse Resp BP BP Pulse Ox 05/24/17 22:00 99.4 F 70 68 20 127/56 99 05/24/17 10:00 98.2 F 78 80 18 110/63 05/24/17 09:50 80 110/63 05/24/17 09:49 80 110/63 - Physical Examination General: No Apparent Distress HEENT: Positive: PERRL Neck: Positive: trachea midline Cardiac: Positive: Reg Rate and Rhythm Lungs: Positive: Decreased Breath Sounds Neuro: Positive: Grossly Intact Extremities: Present: Ulceration Noted
[2017-05-25] MEDS: NORCO 5/325 PO PRN ×2 (10:02→18:45)
[2017-05-25] MEDS: VANCOMYCIN 1,500 MG in NACL 0.9% 500 ML 500 ML IV SCH ×2 (10:02→21:22)
[2017-05-25 10:12] LABS: Basophils % (Auto) 0.3 % (0.0-1.8); Hematocrit 24.6 % (35.5-45.6); Mean Corpuscular HGB Conc 33 % (32-34); Mean Corpuscular Hemoglobin 30 pg (28-32); Mean Corpuscular Volume 92 fl (84-94); Platelet Count 270 K/mm3 (140-440); Red Blood Count 2.68 M/mm3 (3.65-5.03); Red Cell Distribution Width 14.9 % (13.2-15.2); White Blood Count 10.9 K/mm3 (4.5-11.0)
[2017-05-25 10:23] LABS: Albumin 2.3 g/dL (3.9-5); Albumin/Globulin Ratio 0.6 %; BUN/Creatinine Ratio 10.62; Bilirubin,Total 0.5 mg/dL (0.1-1.2); Calcium 7.8 mg/dL (8.4-10.2); Chloride 103.6 mmol/L (98-107); Potassium 4.4 mmol/L (3.6-5.0)
[2017-05-25 10:30] LABS: INR 1.23 (0.87-1.13)
[2017-05-25] MEDS: COLACE PO SCH ×2 (10:43→21:21)
[2017-05-25] MEDS: PLAVIX PO SCH (10:43)
[2017-05-25] MEDS: TOPROL XL PO SCH (10:43)
[2017-05-25] MEDS: FOLBEE PLUS CZ PO SCH (10:43)
[2017-05-25] MEDS: SENOKOT PO SCH ×2 (10:43→21:21)
[2017-05-25] MEDS: ZESTRIL PO SCH (10:43)
[2017-05-25] MEDS: PEPCID PO SCH (10:43)
[2017-05-25] MEDS: LYRICA PO SCH ×2 (10:44)
--- NOTE | 2017-05-25 11:42 | Progress Note ---
Assessment and Plan - Patient Problems (1) Ischemia of left lower extremity Status: Acute Plan to address problem: - s/p Fem-[employer] bypass - no active bleeding - hemodynamically stable - follow H&H - Incentive spirometer use encouraged (2) CAD (coronary artery disease) Status: Chronic Qualifiers: Coronary Disease-Associated Artery/Lesion type: [place] artery [place] vs. transplanted heart: N Associated angina: without angina Plan to address problem: - medical management suggested - EF 40-45% - per cardiology recs - on plavix, lisinopril and lipitor (3) IDDM (insulin dependent diabetes mellitus) Status: Chronic Plan to address problem: - continue SSI - continue levimir at 40units sq qhs - accuchecks qac & qhs (4) Discharge planning issues Status: Acute Plan to address problem: - per attending - inpatient rehabilitation planned Subjective Date of service: 05/25/17 Principal diagnosis: PVD s/p Femoral-Post Tibial Artery Bypass; CAD s/p CABG; Diabetes II Interval history: Seen and examined at bedside; 24 hour events reviewed; nursing and respiratory care staff consulted; no adverse overnight events reported to me; continues to do better; denies acute chest pains or increased SOB Objective Vital Signs - 12hr 05/25/17 05/25/17 10:00 10:43 Temperature 97.6 F Pulse Rate 80 Pulse Rate [ 80 From Monitor] Respiratory 20 Rate Blood Pressure 129/67 Blood Pressure 129/67 [Left Arm] O2 Sat by Pulse 97 Oximetry Constitutional: no acute distress, alert Eyes: non-icteric ENT: oropharynx moist Neck: supple, no lymphadenopathy Effort: normal Ascultation: Bilateral: clear, diminished breath sounds Cardiovascular: regular rate and rhythm Gastrointestinal: normoactive bowel sounds, soft, non-tender Integumentary: cellulitis (Left foot.) Extremities: no cyanosis, no edema, other (left foot in clean dressing and MIKALA bandage) Neurologic: normal mental status, non-focal exam, pupils equal and round, motor strength normal and Psychiatric: mood appropriate, affect normal CBC and BMP: 05/26/17 04:00 05/26/17 04:00 ABG, PT/INR, D-dimer: PT/INR, D-dimer PT 15.4 Sec. (12.2-14.9) H 05/25/17 09:52 INR 1.23 (0.87-1.13) H 05/25/17 09:52 Abnormal lab findings: Abnormal Labs 05/01/17 05/01/17 05/01/17 14:55 14:55 14:55 WBC 12.0 H RBC Hgb POC Hgb Hct POC Hct RDW 12.9 L Lymph % (Auto) 6.3 L [place] % (Auto) Lymph # 0.8 L [place] # 0.9 H Seg Neutrophils % 85.9 H Lymphocytes % (Manual) Monocytes % (Manual) Seg Neutrophils # 10.3 H PT INR 1.15 H APTT 37.7 H Heparin Anti-Xa Level POC Sodium POC Potassium Sodium Potassium Chloride 97.8 L Carbon Dioxide POC BUN BUN 23 H Creatinine Glucose 321 H POC Glucose Hemoglobin A1c Calcium AST ALT Total Protein Albumin Prealbumin Crossmatch 05/01/17 05/01/17 05/02/17 18:32 21:49 03:51 WBC RBC Hgb POC Hgb Hct POC Hct RDW 12.8 L Lymph % (Auto) [place] % (Auto) 12.4 H Lymph # [place] # 1.0 H Seg Neutrophils % Lymphocytes % (Manual) Monocytes % (Manual) Seg Neutrophils # PT INR APTT Heparin Anti-Xa Level POC Sodium POC Potassium Sodium Potassium Chloride Carbon Dioxide POC BUN BUN Creatinine Glucose POC Glucose 247 H 280 H Hemoglobin A1c Calcium AST ALT Total Protein Albumin Prealbumin Crossmatch 05/02/17 05/02/17 05/02/17 03:51 03:51 07:27 WBC RBC Hgb POC Hgb Hct POC Hct RDW Lymph % (Auto) [place] % (Auto) Lymph # [place] # Seg Neutrophils % Lymphocytes % (Manual) Monocytes % (Manual) Seg Neutrophils # PT INR APTT Heparin Anti-Xa Level 0.22 L POC Sodium POC Potassium Sodium Potassium Chloride Carbon Dioxide POC BUN BUN Creatinine Glucose 136 H POC Glucose 115 H Hemoglobin A1c Calcium AST ALT Total Protein Albumin Prealbumin Crossmatch 05/02/17 05/02/17 05/02/17 11:50 20:33 21:56 WBC RBC Hgb POC Hgb Hct POC Hct RDW Lymph % (Auto) [place] % (Auto) Lymph # [place] # Seg Neutrophils % Lymphocytes % (Manual) Monocytes % (Manual) Seg Neutrophils # PT INR APTT Heparin Anti-Xa Level 0.24 L POC Sodium POC Potassium Sodium Potassium Chloride Carbon Dioxide POC BUN BUN Creatinine Glucose POC Glucose 165 H 248 H Hemoglobin A1c Calcium AST ALT Total Protein Albumin Prealbumin Crossmatch 05/03/17 05/03/17 05/03/17 03:23 05:14 05:14 WBC RBC Hgb POC Hgb Hct POC Hct RDW 12.8 L Lymph % (Auto) [place] % (Auto) 14.1 H Lymph # [place] # 1.2 H Seg Neutrophils % Lymphocytes % (Manual) Monocytes % (Manual) Seg Neutrophils # PT INR APTT 101.1 H* Heparin Anti-Xa Level POC Sodium POC Potassium Sodium 136 L Potassium Chloride Carbon Dioxide POC BUN BUN Creatinine Glucose 116 H POC Glucose Hemoglobin A1c Calcium AST ALT Total Protein Albumin 3.0 L Prealbumin Crossmatch 05/03/17 05/03/17 05/03/17 05:14 11:48 11:51 WBC RBC Hgb POC Hgb Hct POC Hct RDW Lymph % (Auto) [place] % (Auto) Lymph # [place] # Seg Neutrophils % Lymphocytes % (Manual) Monocytes % (Manual) Seg Neutrophils # PT INR APTT Heparin Anti-Xa Level 0.26 L POC Sodium POC Potassium Sodium Potassium Chloride Carbon Dioxide POC BUN BUN Creatinine Glucose POC Glucose 128 H Hemoglobin A1c 10.2 H Calcium AST ALT Total Protein Albumin Prealbumin Crossmatch 05/03/17 05/03/17 05/04/17 18:50 22:17 04:02 WBC RBC Hgb POC Hgb Hct POC Hct RDW 12.9 L Lymph % (Auto) [place] % (Auto) Lymph # [place] # Seg Neutrophils % Lymphocytes % (Manual) 13.0 L Monocytes % (Manual) 9.0 H Seg Neutrophils # PT INR APTT Heparin Anti-Xa Level POC Sodium POC Potassium Sodium Potassium Chloride Carbon Dioxide POC BUN BUN Creatinine Glucose POC Glucose 314 H 312 H Hemoglobin A1c Calcium AST ALT Total Protein Albumin Prealbumin Crossmatch 05/04/17 05/04/17 05/04/17 04:02 07:49 11:54 WBC RBC Hgb POC Hgb Hct POC Hct RDW Lymph % (Auto) [place] % (Auto) Lymph # [place] # Seg Neutrophils % Lymphocytes % (Manual) Monocytes % (Manual) Seg Neutrophils # PT INR APTT Heparin Anti-Xa Level POC Sodium POC Potassium Sodium 134 L Potassium 5.2 H Chloride 96.2 L Carbon Dioxide POC BUN BUN 21 H Creatinine Glucose 251 H POC Glucose 177 H 186 H Hemoglobin A1c Calcium AST ALT Total Protein Albumin 3.0 L Prealbumin Crossmatch 05/04/17 05/04/17 05/05/17 17:46 22:51 05:09 WBC RBC Hgb POC Hgb Hct POC Hct RDW Lymph % (Auto) [place] % (Auto) Lymph # [place] # Seg Neutrophils % Lymphocytes % (Manual) Monocytes % (Manual) Seg Neutrophils # PT INR APTT Heparin Anti-Xa Level POC Sodium POC Potassium Sodium 135 L Potassium Chloride Carbon Dioxide POC BUN BUN Creatinine Glucose 179 H POC Glucose 244 H 265 H Hemoglobin A1c Calcium AST ALT Total Protein Albumin 2.9 L Prealbumin Crossmatch 05/05/17 05/05/17 05/05/17 05:09 07:39 11:24 WBC RBC Hgb POC Hgb Hct POC Hct RDW Lymph % (Auto) [place] % (Auto) Lymph # [place] # Seg Neutrophils % Lymphocytes % (Manual) Monocytes % (Manual) Seg Neutrophils # PT INR APTT Heparin Anti-Xa Level 0.15 L 0.29 L POC Sodium POC Potassium Sodium Potassium Chloride Carbon Dioxide POC BUN BUN Creatinine Glucose POC Glucose 153 H Hemoglobin A1c Calcium AST ALT Total Protein Albumin Prealbumin Crossmatch 05/05/17 05/05/17 05/05/17 11:53 16:33 22:05 WBC RBC Hgb POC Hgb Hct POC Hct RDW Lymph % (Auto) [place] % (Auto) Lymph # [place] # Seg Neutrophils % Lymphocytes % (Manual) Monocytes % (Manual) Seg Neutrophils # PT INR APTT Heparin Anti-Xa Level POC Sodium POC Potassium Sodium Potassium Chloride Carbon Dioxide POC BUN BUN Creatinine Glucose POC Glucose 171 H 317 H 313 H Hemoglobin A1c Calcium AST ALT Total Protein Albumin Prealbumin Crossmatch 05/06/17 05/06/17 05/06/17 07:32 11:47 16:28 WBC RBC Hgb POC Hgb Hct POC Hct RDW Lymph % (Auto) [place] % (Auto) Lymph # [place] # Seg Neutrophils % Lymphocytes % (Manual) Monocytes % (Manual) Seg Neutrophils # PT INR APTT Heparin Anti-Xa Level POC Sodium POC Potassium Sodium Potassium Chloride Carbon Dioxide POC BUN BUN Creatinine Glucose POC Glucose 176 H 210 H 283 H Hemoglobin A1c Calcium AST ALT Total Protein Albumin Prealbumin Crossmatch 05/06/17 05/07/17 05/07/17 21:33 03:56 07:11 WBC RBC Hgb POC Hgb Hct POC Hct RDW Lymph % (Auto) [place] % (Auto) Lymph # [place] # Seg Neutrophils % Lymphocytes % (Manual) Monocytes % (Manual) Seg Neutrophils # PT INR APTT Heparin Anti-Xa Level 0.10 L POC Sodium POC Potassium Sodium Potassium Chloride Carbon Dioxide POC BUN BUN Creatinine Glucose POC Glucose 264 H 276 H Hemoglobin A1c Calcium AST ALT Total Protein Albumin Prealbumin Crossmatch 05/07/17 05/07/17 05/07/17 11:48 11:48 16:11 WBC RBC Hgb POC Hgb Hct POC Hct RDW Lymph % (Auto) [place] % (Auto) Lymph # [place] # Seg Neutrophils % Lymphocytes % (Manual) Monocytes % (Manual) Seg Neutrophils # PT INR APTT Heparin Anti-Xa Level POC Sodium 137 L POC Potassium 5.5 H Sodium Potassium Chloride Carbon Dioxide POC BUN 31 H BUN Creatinine Glucose POC Glucose 128 H 158 H Hemoglobin A1c Calcium AST ALT Total Protein Albumin Prealbumin Crossmatch See Detail 05/07/17 05/07/17 05/07/17 16:44 20:28 22:47 WBC RBC Hgb POC Hgb 11.6 L Hct POC Hct 34 L RDW Lymph % (Auto) [place] % (Auto) Lymph # [place] # Seg Neutrophils % Lymphocytes % (Manual) Monocytes % (Manual) Seg Neutrophils # PT INR APTT Heparin Anti-Xa Level POC Sodium POC Potassium 5.0 H Sodium Potassium Chloride Carbon Dioxide POC BUN 27 H BUN Creatinine Glucose POC Glucose 170 H 203 H 253 H Hemoglobin A1c Calcium AST ALT Total Protein Albumin Prealbumin Crossmatch 05/08/17 05/08/17 05/08/17 04:23 07:57 12:01 WBC RBC Hgb POC Hgb Hct POC Hct RDW Lymph % (Auto) [place] % (Auto) Lymph # [place] # Seg Neutrophils % Lymphocytes % (Manual) Monocytes % (Manual) Seg Neutrophils # PT INR APTT Heparin Anti-Xa Level POC Sodium POC Potassium Sodium Potassium 5.3 H D Chloride Carbon Dioxide 19 L POC BUN BUN 29 H Creatinine Glucose 223 H POC Glucose 258 H 282 H Hemoglobin A1c Calcium 8.2 L AST ALT Total Protein Albumin Prealbumin Crossmatch 05/08/17 05/08/17 05/08/17 15:42 19:44 21:39 WBC RBC Hgb POC Hgb Hct POC Hct RDW Lymph % (Auto) [place] % (Auto) Lymph # [place] # Seg Neutrophils % Lymphocytes % (Manual) Monocytes % (Manual) Seg Neutrophils # PT INR APTT Heparin Anti-Xa Level 0.25 L POC Sodium POC Potassium Sodium Potassium Chloride Carbon Dioxide POC BUN BUN Creatinine Glucose POC Glucose 280 H 329 H Hemoglobin A1c Calcium AST ALT Total Protein Albumin Prealbumin Crossmatch 05/09/17 05/09/17 05/09/17 01:52 08:27 12:02 WBC RBC Hgb POC Hgb Hct POC Hct RDW Lymph % (Auto) [place] % (Auto) Lymph # [place] # Seg Neutrophils % Lymphocytes % (Manual) Monocytes % (Manual) Seg Neutrophils # PT INR APTT Heparin Anti-Xa Level 0.29 L POC Sodium POC Potassium Sodium Potassium Chloride Carbon Dioxide POC BUN BUN Creatinine Glucose POC Glucose 187 H 190 H Hemoglobin A1c Calcium AST ALT Total Protein Albumin Prealbumin Crossmatch 05/09/17 05/09/17 05/10/17 16:42 21:58 03:41 WBC 13.4 H RBC 3.61 L Hgb 10.8 L POC Hgb Hct 31.9 L POC Hct RDW 13.1 L Lymph % (Auto) 12.9 L [place] % (Auto) 12.2 H Lymph # [place] # 1.6 H Seg Neutrophils % 74.1 H Lymphocytes % (Manual) Monocytes % (Manual) Seg Neutrophils # 10.0 H PT INR APTT Heparin Anti-Xa Level POC Sodium POC Potassium Sodium Potassium Chloride Carbon Dioxide POC BUN BUN Creatinine Glucose POC Glucose 245 H 344 H Hemoglobin A1c Calcium AST ALT Total Protein Albumin Prealbumin Crossmatch 05/10/17 05/10/17 05/10/17 03:41 07:31 12:08 WBC RBC Hgb POC Hgb Hct POC Hct RDW Lymph % (Auto) [place] % (Auto) Lymph # [place] # Seg Neutrophils % Lymphocytes % (Manual) Monocytes % (Manual) Seg Neutrophils # PT INR APTT Heparin Anti-Xa Level POC Sodium POC Potassium Sodium 134 L Potassium Chloride Carbon Dioxide 21 L POC BUN BUN Creatinine Glucose 171 H POC Glucose 127 H 172 H Hemoglobin A1c Calcium 8.2 L AST 51 H ALT Total Protein Albumin 2.2 L Prealbumin Crossmatch 05/10/17 05/10/17 05/11/17 16:28 21:04 05:03 WBC 19.1 H RBC 3.64 L Hgb 10.7 L POC Hgb Hct 32.1 L POC Hct RDW Lymph % (Auto) 11.8 L [place] % (Auto) 10.8 H Lymph # [place] # 2.1 H Seg Neutrophils % 75.6 H Lymphocytes % (Manual) Monocytes % (Manual) Seg Neutrophils # 14.4 H PT INR APTT Heparin Anti-Xa Level POC Sodium POC Potassium Sodium Potassium Chloride Carbon Dioxide POC BUN BUN Creatinine Glucose POC Glucose 197 H 295 H Hemoglobin A1c Calcium AST ALT Total Protein Albumin Prealbumin Crossmatch 05/11/17 05/11/17 05/11/17 05:03 07:30 09:52 WBC RBC Hgb POC Hgb Hct POC Hct RDW Lymph % (Auto) [place] % (Auto) Lymph # [place] # Seg Neutrophils % Lymphocytes % (Manual) Monocytes % (Manual) Seg Neutrophils # PT INR APTT Heparin Anti-Xa Level POC Sodium POC Potassium Sodium Potassium 5.2 H Chloride Carbon Dioxide POC BUN BUN Creatinine Glucose 143 H POC Glucose 118 H 124 H Hemoglobin A1c Calcium AST 51 H ALT Total Protein Albumin 2.7 L Prealbumin Crossmatch 05/11/17 05/11/17 05/11/17 11:32 12:22 16:22 WBC RBC Hgb POC Hgb Hct POC Hct RDW Lymph % (Auto) [place] % (Auto) Lymph # [place] # Seg Neutrophils % Lymphocytes % (Manual) Monocytes % (Manual) Seg Neutrophils # PT INR APTT Heparin Anti-Xa Level < 0.10 L POC Sodium POC Potassium Sodium Potassium Chloride Carbon Dioxide POC BUN BUN Creatinine Glucose POC Glucose 119 H 197 H Hemoglobin A1c Calcium AST ALT Total Protein Albumin Prealbumin Crossmatch 05/11/17 05/12/17 05/12/17 22:06 05:35 05:35 WBC RBC 3.64 L Hgb 10.8 L POC Hgb Hct 32.5 L POC Hct RDW Lymph % (Auto) 8.0 L [place] % (Auto) 12.8 H Lymph # 0.8 L [place] # 1.3 H Seg Neutrophils % 77.9 H Lymphocytes % (Manual) Monocytes % (Manual) Seg Neutrophils # 8.2 H PT INR APTT Heparin Anti-Xa Level POC Sodium POC Potassium Sodium 136 L Potassium Chloride Carbon Dioxide POC BUN BUN Creatinine Glucose 210 H POC Glucose 296 H Hemoglobin A1c Calcium 8.3 L AST ALT Total Protein 6.2 L Albumin 2.6 L Prealbumin Crossmatch 05/12/17 05/12/17 05/12/17 07:26 11:30 11:41 WBC RBC Hgb 11.4 L POC Hgb Hct 35.1 L POC Hct RDW Lymph % (Auto) [place] % (Auto) Lymph # [place] # Seg Neutrophils % Lymphocytes % (Manual) Monocytes % (Manual) Seg Neutrophils # PT INR APTT Heparin Anti-Xa Level POC Sodium POC Potassium Sodium Potassium Chloride Carbon Dioxide POC BUN BUN Creatinine Glucose POC Glucose 171 H 126 H Hemoglobin A1c Calcium AST ALT Total Protein Albumin Prealbumin Crossmatch 05/12/17 05/12/17 05/12/17 16:23 21:14 21:50 WBC RBC Hgb POC Hgb Hct POC Hct RDW Lymph % (Auto) [place] % (Auto) Lymph # [place] # Seg Neutrophils % Lymphocytes % (Manual) Monocytes % (Manual) Seg Neutrophils # PT INR APTT Heparin Anti-Xa Level 0.22 L POC Sodium POC Potassium Sodium Potassium Chloride Carbon Dioxide POC BUN BUN Creatinine Glucose POC Glucose 223 H 308 H Hemoglobin A1c Calcium AST ALT Total Protein Albumin Prealbumin Crossmatch 05/13/17 05/13/17 05/13/17 04:21 07:24 11:46 WBC RBC Hgb POC Hgb Hct POC Hct RDW Lymph % (Auto) [place] % (Auto) Lymph # [place] # Seg Neutrophils % Lymphocytes % (Manual) Monocytes % (Manual) Seg Neutrophils # PT INR APTT Heparin Anti-Xa Level 0.23 L POC Sodium POC Potassium Sodium Potassium Chloride Carbon Dioxide POC BUN BUN Creatinine Glucose POC Glucose 112 H 206 H Hemoglobin A1c Calcium AST ALT Total Protein Albumin Prealbumin Crossmatch 05/13/17 05/13/17 05/13/17 11:57 16:42 21:44 WBC RBC Hgb POC Hgb Hct POC Hct RDW Lymph % (Auto) [place] % (Auto) Lymph # [place] # Seg Neutrophils % Lymphocytes % (Manual) Monocytes % (Manual) Seg Neutrophils # PT INR APTT Heparin Anti-Xa Level 0.21 L POC Sodium POC Potassium Sodium Potassium Chloride Carbon Dioxide POC BUN BUN Creatinine Glucose POC Glucose 217 H 245 H Hemoglobin A1c Calcium AST ALT Total Protein Albumin Prealbumin Crossmatch 05/14/17 05/14/17 05/14/17 07:13 16:03 21:01 WBC RBC Hgb 10.9 L POC Hgb Hct 33.1 L POC Hct RDW Lymph % (Auto) [place] % (Auto) Lymph # [place] # Seg Neutrophils % Lymphocytes % (Manual) Monocytes % (Manual) Seg Neutrophils # PT INR APTT Heparin Anti-Xa Level POC Sodium POC Potassium Sodium Potassium Chloride Carbon Dioxide POC BUN BUN Creatinine Glucose POC Glucose 144 H 262 H Hemoglobin A1c Calcium AST ALT Total Protein Albumin Prealbumin Crossmatch 05/15/17 05/15/17 05/15/17 07:39 11:31 16:24 WBC RBC Hgb POC Hgb Hct POC Hct RDW Lymph % (Auto) [place] % (Auto) Lymph # [place] # Seg Neutrophils % Lymphocytes % (Manual) Monocytes % (Manual) Seg Neutrophils # PT INR APTT Heparin Anti-Xa Level POC Sodium POC Potassium Sodium Potassium Chloride Carbon Dioxide POC BUN BUN Creatinine Glucose POC Glucose 246 H 297 H 319 H Hemoglobin A1c Calcium AST ALT Total Protein Albumin Prealbumin Crossmatch 05/15/17 05/16/17 05/16/17 20:55 07:39 09:03 WBC RBC Hgb 8.4 L POC Hgb Hct 25.9 L D POC Hct RDW Lymph % (Auto) [place] % (Auto) Lymph # [place] # Seg Neutrophils % Lymphocytes % (Manual) Monocytes % (Manual) Seg Neutrophils # PT INR APTT Heparin Anti-Xa Level POC Sodium POC Potassium Sodium Potassium Chloride Carbon Dioxide POC BUN BUN Creatinine Glucose POC Glucose 344 H 110 H Hemoglobin A1c Calcium AST ALT Total Protein Albumin Prealbumin Crossmatch 05/16/17 05/16/17 05/16/17 11:51 16:48 23:09 WBC RBC Hgb POC Hgb Hct POC Hct RDW Lymph % (Auto) [place] % (Auto) Lymph # [place] # Seg Neutrophils % Lymphocytes % (Manual) Monocytes % (Manual) Seg Neutrophils # PT INR APTT Heparin Anti-Xa Level POC Sodium POC Potassium Sodium Potassium Chloride Carbon Dioxide POC BUN BUN Creatinine Glucose POC Glucose 119 H 188 H 219 H Hemoglobin A1c Calcium AST ALT Total Protein Albumin Prealbumin Crossmatch 05/17/17 05/17/17 05/17/17 04:39 04:39 07:34 WBC 18.6 H RBC 2.64 L Hgb 7.6 L POC Hgb Hct 23.3 L POC Hct RDW Lymph % (Auto) 7.2 L [place] % (Auto) 13.3 H Lymph # [place] # 2.5 H Seg Neutrophils % 79.2 H Lymphocytes % (Manual) Monocytes % (Manual) Seg Neutrophils # 14.8 H PT INR APTT Heparin Anti-Xa Level POC Sodium POC Potassium Sodium 133 L Potassium Chloride 95.5 L Carbon Dioxide POC BUN BUN 26 H Creatinine 1.6 H D Glucose 183 H POC Glucose 144 H Hemoglobin A1c Calcium 8.2 L AST 154 H ALT 79 H Total Protein Albumin 2.6 L Prealbumin Crossmatch 05/17/17 05/17/17 05/17/17 09:17 16:23 22:37 WBC RBC Hgb 8.3 L POC Hgb Hct 24.8 L POC Hct RDW Lymph % (Auto) [place] % (Auto) Lymph # [place] # Seg Neutrophils % Lymphocytes % (Manual) Monocytes % (Manual) Seg Neutrophils # PT INR APTT Heparin Anti-Xa Level POC Sodium POC Potassium Sodium Potassium Chloride Carbon Dioxide POC BUN BUN Creatinine Glucose POC Glucose 145 H 207 H Hemoglobin A1c Calcium AST ALT Total Protein Albumin Prealbumin Crossmatch 05/18/17 05/18/17 05/18/17 04:23 04:23 07:37 WBC 19.8 H RBC 2.73 L Hgb 7.9 L POC Hgb Hct 24.2 L POC Hct RDW Lymph % (Auto) 6.1 L [place] % (Auto) 13.8 H Lymph # [place] # 2.7 H Seg Neutrophils % 79.8 H Lymphocytes % (Manual) Monocytes % (Manual) Seg Neutrophils # 15.8 H PT INR APTT Heparin Anti-Xa Level POC Sodium POC Potassium Sodium 133 L Potassium Chloride 93.3 L Carbon Dioxide POC BUN BUN 26 H Creatinine Glucose 145 H POC Glucose 144 H Hemoglobin A1c Calcium AST 189 H ALT 101 H Total Protein Albumin 2.7 L Prealbumin Crossmatch 05/18/17 05/18/17 05/18/17 11:24 16:48 19:26 WBC RBC Hgb POC Hgb Hct POC Hct RDW Lymph % (Auto) [place] % (Auto) Lymph # [place] # Seg Neutrophils % Lymphocytes % (Manual) Monocytes % (Manual) Seg Neutrophils # PT INR APTT Heparin Anti-Xa Level 0.20 L POC Sodium POC Potassium Sodium Potassium Chloride Carbon Dioxide POC BUN BUN Creatinine Glucose POC Glucose 142 H 226 H Hemoglobin A1c Calcium AST ALT Total Protein Albumin Prealbumin Crossmatch 05/18/17 05/19/17 05/19/17 21:53 07:27 12:38 WBC RBC Hgb POC Hgb Hct POC Hct RDW Lymph % (Auto) [place] % (Auto) Lymph # [place] # Seg Neutrophils % Lymphocytes % (Manual) Monocytes % (Manual) Seg Neutrophils # PT INR APTT Heparin Anti-Xa Level POC Sodium POC Potassium Sodium Potassium Chloride Carbon Dioxide POC BUN BUN Creatinine Glucose POC Glucose 275 H 164 H 266 H Hemoglobin A1c Calcium AST ALT Total Protein Albumin Prealbumin Crossmatch 05/19/17 05/19/17 05/19/17 13:03 16:25 22:19 WBC 19.4 H RBC 2.68 L Hgb 7.7 L POC Hgb Hct 23.7 L POC Hct RDW Lymph % (Auto) 5.7 L [place] % (Auto) 11.2 H Lymph # 1.1 L [place] # 2.2 H Seg Neutrophils % 82.9 H Lymphocytes % (Manual) Monocytes % (Manual) Seg Neutrophils # 16.1 H PT INR APTT Heparin Anti-Xa Level POC Sodium POC Potassium Sodium Potassium Chloride Carbon Dioxide POC BUN BUN Creatinine Glucose POC Glucose 253 H 182 H Hemoglobin A1c Calcium AST ALT Total Protein Albumin Prealbumin Crossmatch 05/20/17 05/20/17 05/20/17 07:14 07:14 16:11 WBC 17.6 H RBC 2.77 L Hgb 7.8 L 7.9 L POC Hgb Hct 23.7 L 24.8 L POC Hct RDW Lymph % (Auto) 8.2 L [place] % (Auto) 11.7 H Lymph # [place] # 2.1 H Seg Neutrophils % 79.1 H Lymphocytes % (Manual) Monocytes % (Manual) Seg Neutrophils # 14.0 H PT INR APTT Heparin Anti-Xa Level POC Sodium POC Potassium Sodium Potassium Chloride Carbon Dioxide POC BUN BUN Creatinine Glucose POC Glucose 142 H Hemoglobin A1c Calcium AST ALT Total Protein Albumin Prealbumin Crossmatch 05/20/17 05/21/17 05/21/17 21:49 03:58 03:58 WBC 13.1 H RBC 2.34 L Hgb 6.7 L POC Hgb Hct 20.8 L POC Hct RDW Lymph % (Auto) 9.0 L [place] % (Auto) 11.1 H Lymph # [place] # 1.5 H Seg Neutrophils % 79.0 H Lymphocytes % (Manual) Monocytes % (Manual) Seg Neutrophils # 10.3 H PT INR APTT Heparin Anti-Xa Level POC Sodium POC Potassium Sodium 134 L Potassium Chloride 97.2 L Carbon Dioxide POC BUN BUN Creatinine Glucose 115 H POC Glucose 240 H Hemoglobin A1c Calcium 7.9 L AST 154 H ALT 137 H Total Protein Albumin 2.2 L Prealbumin Crossmatch 07/08/2805/21/17 05/21/17 10:51 11:53 16:23 WBC RBC Hgb POC Hgb Hct POC Hct RDW Lymph % (Auto) [place] % (Auto) Lymph # [place] # Seg Neutrophils % Lymphocytes % (Manual) Monocytes % (Manual) Seg Neutrophils # PT INR APTT Heparin Anti-Xa Level POC Sodium POC Potassium Sodium Potassium Chloride Carbon Dioxide POC BUN BUN Creatinine Glucose POC Glucose 158 H 206 H Hemoglobin A1c Calcium AST ALT Total Protein Albumin Prealbumin Crossmatch See Detail 05/21/17 05/22/17 05/22/17 23:02 06:21 07:20 WBC RBC Hgb POC Hgb Hct POC Hct RDW Lymph % (Auto) [place] % (Auto) Lymph # [place] # Seg Neutrophils % Lymphocytes % (Manual) Monocytes % (Manual) Seg Neutrophils # PT INR APTT Heparin Anti-Xa Level POC Sodium POC Potassium Sodium 136 L Potassium Chloride Carbon Dioxide POC BUN BUN Creatinine Glucose 175 H POC Glucose 357 H 193 H Hemoglobin A1c Calcium 7.8 L AST 93 H ALT 124 H Total Protein 5.8 L Albumin 2.5 L Prealbumin Crossmatch 05/22/17 05/22/17 05/22/17 07:40 11:30 17:25 WBC 12.7 H RBC 2.90 L Hgb 8.5 L POC Hgb Hct 26.1 L POC Hct RDW Lymph % (Auto) 8.2 L [place] % (Auto) 11.5 H Lymph # 1.0 L [place] # 1.5 H Seg Neutrophils % 79.5 H Lymphocytes % (Manual) Monocytes % (Manual) Seg Neutrophils # 10.1 H PT INR APTT Heparin Anti-Xa Level POC Sodium POC Potassium Sodium Potassium Chloride Carbon Dioxide POC BUN BUN Creatinine Glucose POC Glucose 136 H 153 H Hemoglobin A1c Calcium AST ALT Total Protein Albumin Prealbumin Crossmatch 05/22/17 05/23/17 05/23/17 21:37 06:18 06:18 WBC 14.1 H RBC 2.79 L Hgb 8.1 L POC Hgb Hct 24.7 L POC Hct RDW Lymph % (Auto) 10.1 L [place] % (Auto) 13.0 H Lymph # [place] # 1.8 H Seg Neutrophils % 76.0 H Lymphocytes % (Manual) Monocytes % (Manual) Seg Neutrophils # 10.7 H PT INR APTT Heparin Anti-Xa Level POC Sodium POC Potassium Sodium Potassium Chloride Carbon Dioxide 21 L POC BUN BUN Creatinine Glucose 71 L POC Glucose 273 H Hemoglobin A1c Calcium 8.0 L AST 76 H ALT 95 H Total Protein 6.2 L Albumin 2.0 L Prealbumin Crossmatch 05/23/17 05/23/17 05/23/17 07:19 11:29 11:52 WBC RBC Hgb POC Hgb Hct POC Hct RDW Lymph % (Auto) [place] % (Auto) Lymph # [place] # Seg Neutrophils % Lymphocytes % (Manual) Monocytes % (Manual) Seg Neutrophils # PT INR APTT Heparin Anti-Xa Level POC Sodium POC Potassium Sodium Potassium Chloride Carbon Dioxide POC BUN BUN Creatinine Glucose POC Glucose 67 L 134 H Hemoglobin A1c Calcium AST ALT Total Protein Albumin Prealbumin 0.030 L Crossmatch 05/23/17 05/23/17 05/24/17 16:41 21:55 05:00 WBC RBC 2.48 L Hgb 7.3 L POC Hgb Hct 22.2 L POC Hct RDW Lymph % (Auto) 10.1 L [place] % (Auto) 13.1 H Lymph # 1.0 L [place] # 1.3 H Seg Neutrophils % 75.2 H Lymphocytes % (Manual) Monocytes % (Manual) Seg Neutrophils # PT INR APTT Heparin Anti-Xa Level POC Sodium POC Potassium Sodium Potassium Chloride Carbon Dioxide POC BUN BUN Creatinine Glucose POC Glucose 223 H 262 H Hemoglobin A1c Calcium AST ALT Total Protein Albumin Prealbumin Crossmatch 05/24/17 05/24/17 05/24/17 05:00 05:00 07:18 WBC RBC Hgb POC Hgb Hct POC Hct RDW Lymph % (Auto) [place] % (Auto) Lymph # [place] # Seg Neutrophils % Lymphocytes % (Manual) Monocytes % (Manual) Seg Neutrophils # PT 15.7 H INR 1.19 H APTT Heparin Anti-Xa Level POC Sodium POC Potassium Sodium 133 L Potassium Chloride Carbon Dioxide 20 L POC BUN BUN Creatinine Glucose 196 H POC Glucose 180 H Hemoglobin A1c Calcium 7.3 L AST 59 H ALT 68 H Total Protein 5.6 L Albumin 1.9 L Prealbumin Crossmatch 05/24/17 05/24/17 05/24/17 11:54 16:27 22:05 WBC RBC Hgb POC Hgb Hct POC Hct RDW Lymph % (Auto) [place] % (Auto) Lymph # [place] # Seg Neutrophils % Lymphocytes % (Manual) Monocytes % (Manual) Seg Neutrophils # PT INR APTT Heparin Anti-Xa Level POC Sodium POC Potassium Sodium Potassium Chloride Carbon Dioxide POC BUN BUN Creatinine Glucose POC Glucose 126 H 217 H 271 H Hemoglobin A1c Calcium AST ALT Total Protein Albumin Prealbumin Crossmatch 05/25/17 05/25/17 05/25/17 04:00 09:52 09:52 WBC RBC 2.68 L Hgb 8.0 L POC Hgb Hct 24.6 L POC Hct RDW Lymph % (Auto) 9.6 L [place] % (Auto) 12.8 H Lymph # 1.0 L [place] # 1.4 H Seg Neutrophils % 76.3 H Lymphocytes % (Manual) Monocytes % (Manual) Seg Neutrophils # 8.3 H PT 15.4 H INR 1.23 H APTT Heparin Anti-Xa Level POC Sodium POC Potassium Sodium Potassium Chloride Carbon Dioxide POC BUN BUN Creatinine 1.6 H D Glucose POC Glucose Hemoglobin A1c Calcium 7.8 L AST 54 H ALT 62 H Total Protein 6.0 L Albumin 2.3 L Prealbumin Crossmatch
--- NOTE | 2017-05-25 15:47 | Progress Note ---
Assessment and Plan D/c planning in progress. Continue LWC and wound vac. Continue PT and Increase activity. - Patient Problems (1) Atherosclerosis of [place] arteries of the extremities with ulceration Onset Date: 08/22/16 Current Visit: No Status: Acute (2) Ischemia of left lower extremity Current Visit: Yes Status: Acute Subjective Date of service: 05/25/17 Principal diagnosis: PVD s/p Femoral-Post Tibial Artery Bypass; CAD s/p CABG; Diabetes II Interval history: Pt sleeping but awoke easily. Denies new complaint. Objective - Constitutional Vitals: Vital Signs - 12hr 05/25/17 05/25/17 10:00 10:43 Temperature 97.6 F Pulse Rate 80 Pulse Rate [ 80 From Monitor] Respiratory 20 Rate Blood Pressure 129/67 Blood Pressure 129/67 [Left Arm] O2 Sat by Pulse 97 Oximetry General appearance: Present: no acute distress - EENT Eyes: EOM intact ENT: hearing intact - Respiratory Respiratory effort: normal (unlabored at rest on O2 NC) Extremities: no ischemia, normal temperature, abnormal (wound vac in place, calf bandage removed. No active bleeding or drainage.) - Neurologic Neurologic: no focal deficits - Psychiatric Psychiatric: appropriate mood/affect, intact judgment & insight, cooperative - Labs CBC & Chem 7: 05/25/17 09:52 05/25/17 04:00 Labs: Abnormal lab results 05/24/17 05/24/17 05/25/17 Range/Units 16:27 22:05 04:00 RBC (3.65-5.03) M/mm3 Hgb (11.8-15.2) gm/dl Hct (35.5-45.6) % Lymph % (Auto) (13.4-35.0) % [place] % (Auto) (0.0-7.3) % Lymph # (1.2-5.4) K/mm3 [place] # (0.0-0.8) K/mm3 Seg Neutrophils % (40.0-70.0) % Seg Neutrophils # (1.8-7.7) K/mm3 PT (12.2-14.9) Sec. INR (0.87-1.13) Creatinine 1.6 H D (0.8-1.5) mg/dL POC Glucose 217 H 271 H (70-105) Calcium 7.8 L (8.4-10.2) mg/dL AST 54 H (5-40) units/L ALT 62 H (7-56) units/L Total Protein 6.0 L (6.3-8.2) g/dL Albumin 2.3 L (3.9-5) g/dL 05/25/17 05/25/17 Range/Units 09:52 09:52 RBC 2.68 L (3.65-5.03) M/mm3 Hgb 8.0 L (11.8-15.2) gm/dl Hct 24.6 L (35.5-45.6) % Lymph % (Auto) 9.6 L (13.4-35.0) % [place] % (Auto) 12.8 H (0.0-7.3) % Lymph # 1.0 L (1.2-5.4) K/mm3 [place] # 1.4 H (0.0-0.8) K/mm3 Seg Neutrophils % 76.3 H (40.0-70.0) % Seg Neutrophils # 8.3 H (1.8-7.7) K/mm3 PT 15.4 H (12.2-14.9) Sec. INR 1.23 H (0.87-1.13) Creatinine (0.8-1.5) mg/dL POC Glucose (70-105) Calcium (8.4-10.2) mg/dL AST (5-40) units/L ALT (7-56) units/L Total Protein (6.3-8.2) g/dL Albumin (3.9-5) g/dL
--- NOTE | 2017-05-25 15:48 | Discharge Summary ---
Providers - Providers Date of Admission: 05/01/17 13:34 Date of discharge: 05/26/17 Attending physician: SONYA CADENA 05/01/17 13:04 Consult to Physician [CONS] Routine Consulting Provider: LITZY HUIZAR Reason For Exam: medical management Place consult to:: Litzy Huizar Notified:: NO Phone number called:: [phone] 05/02/17 08:00 Consult to Physician [CONS] Routine Consulting Provider: CRISTI SELLERS Reason For Exam: preop clearance for fem-distal bypass Place consult to:: becky galan Notified:: yes Was contact made?: Yes If yes, spoke with:: becky Time called:: 10:03 Comment:: gretchen 05/02/17 17:21 Consult to Dietitian/Nutrition [CONS] Routine Physician Instructions: Uses boost at home - eats primarily vegetables Reason For Exam: Pt is diabetic and very specific about diet Reason for Consult: Pt needs oral supplement 05/07/17 18:46 Consult to Physician [CONS] Routine Consulting Provider: DELFINA PERAZA Reason For Exam: ICU admission Place consult to:: Dr. Blanco Notified:: yes Was contact made?: Yes If yes, spoke with:: text Comment:: talked w/ in person 05/11/17 09:45 Consult to Wound/ET Nurse [CONS] Routine Reason For Exam: wound eval left foot 05/15/17 13:22 Physical Therapy Evaluation and Treat [CONS] Routine Comment: Reason For Exam: pvd with digital amputation 05/16/17 07:00 Consult to Wound/ET Nurse [CONS] Routine Reason For Exam: wound eval (left groin) 05/16/17 18:03 Consult to Case Management [CONS] Routine Services Needed at Discharge: Wound Vac Notified:: EMILY 05/17/17 15:28 Consult to Wound/ET Nurse [CONS] Stat Reason For Exam: LEFT GROIN DEHISSENCE/FIBRINOUS AREA 05/18/17 14:18 Consult to Physician [CONS] Routine Consulting Provider: MIMI CLEANING Reason For Exam: Leukocytosis with elevated temp,with femoral patch Place consult to:: Notified:: yes Phone number called:: [phone] Was contact made?: Yes If yes, spoke with:: dr cleaning Time called:: 15:20 Comment:: gretchen 05/23/17 12:27 Consult to PICC Line RN [CONS] Stat Reason For Exam: Loss of IV access Type Line:: PICC 05/23/17 17:18 Consult to Case Management [CONS] Routine Services Needed at Discharge: Other Notified:: miss carlson Was contact made?: Yes If yes, spoke with:: miss carlson Time called:: 17:23 Comment:: Inpt Rehab evaluation 05/24/17 17:38 Consult to Dietitian/Nutrition [CONS] Routine Physician Instructions: Reason For Exam: Reason for Consult: Pt needs oral supplement Primary care physician: LITZY HUIZAR Hospitalization Reason for admission: PVD with rest pain Condition: Stable Procedures: Operative Report Operative Report: Date of Procedure: 05/07/2017 Pre-operative Diagnosis: PVD with Left Foot Gangrene Post-operative Diagnosis: Same Procedure(s): 1. Diagnostic Left Lower Extremity Arteriogram (Patient Had a Clinical Change) 2. Angioplasty and Stent of Left External Leg Artery with 8 x 10 cm Viabahn Stent Graft and 8 x 60 Balloon 3. Left Femoral Endarterectomy 4. Left Femoral Artery to Posterior Tibial Artery Bypass With In Situ Left Greater Saphenous Vein Graft Surgeon: Elias Rodriguez M.D. Conservation Planner: Michoacano Zimmerman M.D. Second Asst.: Zeke Nye PA-C Anesthesia: Gen. endotracheal anesthesia EBL: 750 mL Counts: Correct Complications: None Condition: Stable Findings: Successful revascularization of the left lower extremity with palpable pedal pulse at the completion of the case. Specimen: Left femoral plaque sent to pathology. Indication: The patient is a 76-year-old male with a history of progressive disease and gangrene of his third toe of the left foot. He has had previous endovascular intervention with short-term patency so was felt that he would benefit from a bypass to help heal his wounds or any amputation sites if needed. He was given the risk, benefits, and alternative procedures and consented to procedure. Operative Report Operative Report: Date of Procedure: 05/11/2017 Pre-operative Diagnosis: PVD with Left Foot Gangrene Post-operative Diagnosis: Same Procedure(s): 1. Open Left Foot Ray Amputation of Second and Third Toes 2. Excisional Debridement of Skin and Muscle and Soft Tissue of Left Foot Surgeon: Elias Rodriguez M.D. Conservation Planner: None Anesthesia: Gen. endotracheal anesthesia EBL: Minimal Counts: Correct Complications: None Condition: Stable Findings: Both the second and third toes were gangrenous and nonviable. The tissue within the mid foot and plantar surface beneath these toes was necrotic and gangrenous requiring extensive debridement. Specimen: Left second and third toes as well as skin muscle and soft tissue of left foot sent to pathology. Indication: The patient is a 76-year-old male with history of peripheral vascular disease who recently underwent a left femoral artery to posterior tibial artery bypass with in situ greater saphenous vein. He now is in need of toe amputation and debridement of necrotic tissue within his wound. He was given the risks, benefits, and alternative procedures and consented to procedure. Operative Report Operative Report: Date of Procedure: 05/14/2017 Pre-operative Diagnosis: PVD with Nonhealing Left Foot Wound Post-operative Diagnosis: Same with Thrombosed Left Femoral Artery to Posterior Tibial Artery Bypass Procedure(s): 1. Ultrasound-Guided Access Right Common Femoral Artery 2. Diagnostic Left Lower Extremity Arteriogram (Patient Had a Clinical Change) 3. Percutaneous Mechanical Thrombectomy Of Left Femoral Artery to Posterior Tibial Artery Bypass Graft with CAT 5 Penumbra Indigo Catheter And AngioJet Catheter 4. Percutaneous Mechanical Thrombectomy of Left Posterior Tibial Artery with CAT 5 Penumbra Indigo Catheter 5. Angioplasty of the Posterior Tibial Artery with 3 x 120 Balloon 6. Angioplasty of Left Femoral Artery To Posterior Tibial Artery Bypass Graft with 5 x 200 Balloon 7. Closure of Right Femoral Arteriotomy with 6 Dominican Angio-Seal 8. Radiological Supervision and Interpretation Surgeon: Elias Rodriguez M.D. Conservation Planner: None Anesthesia: Local and IV sedation EBL: Minimal Counts: Correct Complications: None Condition: Stable Specimen: None Indication: The patient is a 76-year-old male with a history of peripheral vascular disease and gangrene of his left foot. He underwent a left femoral artery to posterior tibial artery bypass with in situ greater saphenous vein graft. After the bypass he underwent ray amputation of both his left second and third toes. His wound has healed poorly and there is a monophasic signal in the posterior tibial artery. It was initially felt that he required arteriogram with possible intervention for branches of the graft that were creating steal. He was given the risks, benefits, and alternative procedures and consented to procedure. Angiographic Findings: The left lower extremity arteriogram demonstrated the left common iliac, hypogastric, and external iliac were patent. The left common and profunda arteries were patent. The proximal SFA was patent down to the distal SFA were included within previously placed stents. The bypass graft was occluded with reconstitution in the mid posterior tibial artery distal to the anastomosis. After intervention the bypass graft was widely patent. There was approximately 15% residual stenosis at the distal anastomosis however this was not flow- limiting. The remainder of the posterior tibial artery above the ankle was widely patent. There appeared to be a small amount of [id number] thrombus in the distal posterior tibial artery in the foot and was treated with an injection of TPA as well as nitroglycerin. Operative Report Operative Report: Date of Procedure: 05/22/2017 Pre-operative Diagnosis: Nonhealing Left Foot Wound Post-operative Diagnosis: Same Procedure(s): 1. Left Open Transmetatarsal Amputation Surgeon: Elias Rodriguez M.D. Conservation Planner: None Anesthesia: Gen. endotracheal anesthesia EBL: 200 mL Counts: Correct Complications: None Condition: Stable Findings: All tissue with bleeding healthy edges. No evidence of mid foot abscess or necrotic tissue within the wound base. Specimen: Left forefoot sent to pathology. Indication: The patient is a 76-year-old male with a history of peripheral vascular disease who is status post left femoral artery to posterior tibial artery bypass with in situ greater saphenous vein graft. He subsequently underwent open amputation of the second and third toes however the wound site has not healed. He is in need of an open transmetatarsal amputation to attempt to salvage his leg. He was given the risk, benefits, and alternative procedures and consented to procedure. Hospital course: Pt presented to our office and was noted to have an ischemic LLE with pain at rest. He was admitted in preparation for revascularization. A consult was placed to his PCP to assist with medical management. Cardiology was consulted for pre-op clearance. A fem-distal by-pass was completed. He had gangrenous changes to his L 2nd toe. He was taken to the operating room and the 2nd and 3rd toe were amputated. His wounds was subsequently taken to the ammunition assembly i laborer and multiple side branches of his bypass were embolized. His forefoot continued to necrose and an open TMA was completed. He showed good fore foot bleeding intra- op and a wound vac was later placed by the wound care nurse. At one point he developed a leukocytosis and ID was consulted. This improved and they later signed off. With concerns of poor nutritional intake, a dietary consult was requested for oral supplementation. PT was consulted in assist in increasing his activity levels. Pt showed signs of deconditioning. D/c planning for inpt rehab was initiated. Pt was cleared for d/c once all arrangements completed. Disposition: [id number] INPT REHAB FACILITY - Discharge Diagnoses (1) Atherosclerosis of [place] arteries of the extremities with ulceration Status: Acute (2) Ischemia of left lower extremity Status: Acute Core Measure Documentation - Palliative Care Palliative Care/ Comfort Measures: Not Applicable - Core Measures Any of the following diagnoses?: none Exam - Constitutional Vitals: Temp Pulse Resp BP Pulse Ox 97.6 F 80 20 129/67 97 05/25/17 10:00 05/25/17 10:43 05/25/17 10:00 05/25/17 10:43 05/25/17 10:00 General appearance: Present: no acute distress - EENT Eyes: Present: EOM intact ENT: hearing intact - Neck Neck: Present: supple - Respiratory Respiratory effort: normal (unlabored at rest on O2 NC) - Cardiovascular Rhythm: regular - Extremities Extremities: no ischemia, normal temperature, abnormal (wound vac in place. Other incisions dry and intact or with clean bandages. ) - Psychiatric Psychiatric: appropriate mood/affect, intact judgment & insight, cooperative - Neurologic Neurologic: no focal deficits Plan Activity: advance as tolerated Weight Bearing Status: Weight Bear as Tolerated (avoid Left fore foot pressure) Diet: diabetic Wound: keep clean and dry, per wound nurse instructions (Wound vac per protocol , Left groin bandages per ET nurse recommendations) Follow up with: LITZY HUIZAR MD [Primary Care Provider] - 7 Days ELIAS RODRIGUEZ MD [Staff Physician] - 14 Days
[2017-05-25] MEDS: LEVEMIR SUB-Q SCH (21:23)
[2017-05-26] MEDS: LOVENOX SUB-Q SCH ×2 (01:53→12:09)
[2017-05-26] MEDS: ZOSYN/NS 3.375GM/50ML 3.375 GM/50 ML BAG IV SCH ×2 (05:40→13:29)
[2017-05-26] MEDS: NOVOLOG SUB-Q SCH ×2 (07:30→12:07)
[2017-05-26] MEDS: VANCOMYCIN 1,500 MG in NACL 0.9% 500 ML 500 ML IV SCH (08:09)
[2017-05-26] MEDS ORDERED: VANCOMYCIN PHARMACY TO DOSE IV SCH (09:00)
[2017-05-26] MEDS: PLAVIX PO SCH (09:56)
[2017-05-26] MEDS: SENOKOT PO SCH (09:56)
[2017-05-26] MEDS: LYRICA PO SCH ×2 (09:56)
[2017-05-26] MEDS: COLACE PO SCH (09:57)
[2017-05-26] MEDS: TOPROL XL PO SCH (09:57)
[2017-05-26] MEDS: ZESTRIL PO SCH (09:57)
[2017-05-26] MEDS: PEPCID PO SCH (09:58)
[2017-05-26] MEDS: FOLBEE PLUS CZ PO SCH (09:58)
[2017-05-26] MEDS: MIRALAX 3350 PO PRN (09:59)
[2017-05-26 10:00] VITALS: BP 124/64
[2017-05-26 10:05] LABS: Basophils % (Auto) 0.6 % (0.0-1.8); Eosinophils % (Auto) 1.3 % (0.0-4.3); Hematocrit 23.4 % (35.5-45.6); Hemoglobin 7.9 gm/dl (11.8-15.2); Mean Corpuscular HGB Conc 34 % (32-34); Mean Corpuscular Hemoglobin 30 pg (28-32); Mean Corpuscular Volume 90 fl (84-94); Platelet Count 265 K/mm3 (140-440); Red Blood Count 2.59 M/mm3 (3.65-5.03); Red Cell Distribution Width 14.8 % (13.2-15.2); White Blood Count 10.2 K/mm3 (4.5-11.0)
[2017-05-26 10:18] LABS: INR 3.4 (0.87-1.13)
[2017-05-26 10:19] LABS: Albumin 2.1 g/dL (3.9-5); Albumin/Globulin Ratio 0.6 %; BUN/Creatinine Ratio 10.5; Bilirubin,Total 0.4 mg/dL (0.1-1.2); Calcium 7.6 mg/dL (8.4-10.2); Chloride 104.7 mmol/L (98-107); Potassium 4.8 mmol/L (3.6-5.0); Total Protein 5.8 g/dL (6.3-8.2)
--- NOTE | 2017-05-26 11:39 | Progress Note ---
Assessment and Plan - Patient Problems (1) Ischemia of left lower extremity Current Visit: Yes Status: Acute Plan to address problem: Patient is status post transmetatarsal amputation as well as angioplasty for severe peripheral arterial disease of left lower extremity (2) CAD (coronary artery disease) Current Visit: Yes Status: Chronic Qualifiers: Coronary Disease-Associated Artery/Lesion type: [place] artery [place] vs. transplanted heart: N Associated angina: without angina Plan to address problem: Clinically stable no symptoms of chest pain (3) IDDM (insulin dependent diabetes mellitus) Current Visit: Yes Status: Chronic (4) Peripheral neuropathy Current Visit: Yes Status: Chronic Qualifiers: Peripheral neuropathy type: polyneuropathy associated with underlying disease Qualified Code(s): G63 - Polyneuropathy in diseases classified elsewhere Plan to address problem: Continue current management (5) Atherosclerosis of [place] arteries of the extremities with ulceration Onset Date: 08/22/16 Current Visit: No Status: Acute Subjective Date of service: 05/26/17 Principal diagnosis: PVD s/p Femoral-Post Tibial Artery Bypass; CAD s/p CABG; Diabetes II Interval history: Covering for Dr. Dr. Badillo Patient seen and examined chart reviewed. Patient denied any new complaints or chest pain or shortness of breath and no fever reported. Patient now being discharged already discharge by vascular surgery. Objective - Exam Narrative Exam: GENERAL: Resting comfortably in bed no acute distress HEENT: [Patient is not pale, not jaundiced, not cyanosed.] NECK: [No JVD, no thyroid enlargement and no lymphadenopathy.] CHEST/LUNGS: [Good air exchange bilaterally, no wheeze, no rales and no rhonchi. ] [No chest wall tenderness, percussion is normal, symmetrical chest wall.] HEART/CARDIOVASCULAR: [Regular rate and rhythm, S1 and S2 only, no murmur.] ABDOMEN: [Abdomen is soft, nondistended, no guarding, no rebound tenderness, no masses palpable per abdomen, active bowel sounds.] SKIN: [Warm and dry, no rash.] NEURO: [Awake, alert, oriented x3, speech normal. Power 5/5 in all the extremities.] EXTREMITIES: Left extremity dressed. Palpable peripheral pulses bilaterally Surgical sites left distal leg shows wound edges well approximated with arpit in place minimal drainage of serosanguineous fluid. - Constitutional Vitals: Vital Signs - 12hr 05/26/17 05/26/17 09:57 10:00 Temperature 98.8 F Pulse Rate 73 66 Pulse Rate [ 73 From Monitor] Respiratory 20 Rate Blood Pressure 124/64 Blood Pressure 124/64 [Left Arm] O2 Sat by Pulse 100 Oximetry - Labs CBC & Chem 7: 05/26/17 04:00 05/26/17 04:00 Labs: Abnormal lab results 05/25/17 05/25/17 05/25/17 Range/Units 16:32 20:54 21:41 RBC (3.65-5.03) M/mm3 Hgb (11.8-15.2) gm/dl Hct (35.5-45.6) % Lymph % (Auto) (13.4-35.0) % [place] % (Auto) (0.0-7.3) % Lymph # (1.2-5.4) K/mm3 [place] # (0.0-0.8) K/mm3 Seg Neutrophils % (40.0-70.0) % Seg Neutrophils # (1.8-7.7) K/mm3 PT (12.2-14.9) Sec. INR (0.87-1.13) Carbon Dioxide (22-30) mmol/L BUN (9-20) mg/dL Creatinine (0.8-1.5) mg/dL Glucose (75-100) mg/dL POC Glucose 176 H 263 H (70-105) Calcium (8.4-10.2) mg/dL AST (5-40) units/L Total Protein (6.3-8.2) g/dL Albumin (3.9-5) g/dL Vancomycin Trough 26.0 H (5.0-20.0) ug/mL 05/26/17 05/26/17 05/26/17 Range/Units 04:00 04:00 04:00 RBC 2.59 L (3.65-5.03) M/mm3 Hgb 7.9 L (11.8-15.2) gm/dl Hct 23.4 L (35.5-45.6) % Lymph % (Auto) 8.0 L (13.4-35.0) % [place] % (Auto) 11.7 H (0.0-7.3) % Lymph # 0.8 L (1.2-5.4) K/mm3 [place] # 1.2 H (0.0-0.8) K/mm3 Seg Neutrophils % 78.4 H (40.0-70.0) % Seg Neutrophils # 8.0 H (1.8-7.7) K/mm3 PT 34.6 H (12.2-14.9) Sec. INR 3.40 H (0.87-1.13) Carbon Dioxide 20 L (22-30) mmol/L BUN 21 H (9-20) mg/dL Creatinine 2.0 H (0.8-1.5) mg/dL Glucose 155 H (75-100) mg/dL POC Glucose (70-105) Calcium 7.6 L (8.4-10.2) mg/dL AST 42 H (5-40) units/L Total Protein 5.8 L (6.3-8.2) g/dL Albumin 2.1 L (3.9-5) g/dL Vancomycin Trough (5.0-20.0) ug/mL 05/26/17 Range/Units 07:25 RBC (3.65-5.03) M/mm3 Hgb (11.8-15.2) gm/dl Hct (35.5-45.6) % Lymph % (Auto) (13.4-35.0) % [place] % (Auto) (0.0-7.3) % Lymph # (1.2-5.4) K/mm3 [place] # (0.0-0.8) K/mm3 Seg Neutrophils % (40.0-70.0) % Seg Neutrophils # (1.8-7.7) K/mm3 PT (12.2-14.9) Sec. INR (0.87-1.13) Carbon Dioxide (22-30) mmol/L BUN (9-20) mg/dL Creatinine (0.8-1.5) mg/dL Glucose (75-100) mg/dL POC Glucose 236 H (70-105) Calcium (8.4-10.2) mg/dL AST (5-40) units/L Total Protein (6.3-8.2) g/dL Albumin (3.9-5) g/dL Vancomycin Trough (5.0-20.0) ug/mL
--- NOTE | 2017-05-26 11:50 | Discharge Summary ---
Providers - Providers Date of Admission: 05/01/17 13:34 Date of discharge: 05/26/17 Attending physician: SONYA CADENA 05/01/17 13:04 Consult to Physician [CONS] Routine Consulting Provider: LITZY HUIZAR Reason For Exam: medical management Place consult to:: Litzy Huizar Notified:: NO Phone number called:: [phone] 05/02/17 08:00 Consult to Physician [CONS] Routine Consulting Provider: CRISTI SELLERS Reason For Exam: preop clearance for fem-distal bypass Place consult to:: becky galan Notified:: yes Was contact made?: Yes If yes, spoke with:: becky Time called:: 10:03 Comment:: gretchen 05/02/17 17:21 Consult to Dietitian/Nutrition [CONS] Routine Physician Instructions: Uses boost at home - eats primarily vegetables Reason For Exam: Pt is diabetic and very specific about diet Reason for Consult: Pt needs oral supplement 05/07/17 18:46 Consult to Physician [CONS] Routine Consulting Provider: DELFINA PERAZA Reason For Exam: ICU admission Place consult to:: Dr. Blanco Notified:: yes Was contact made?: Yes If yes, spoke with:: text Comment:: talked w/ in person 05/11/17 09:45 Consult to Wound/ET Nurse [CONS] Routine Reason For Exam: wound eval left foot 05/15/17 13:22 Physical Therapy Evaluation and Treat [CONS] Routine Comment: Reason For Exam: pvd with digital amputation 05/16/17 07:00 Consult to Wound/ET Nurse [CONS] Routine Reason For Exam: wound eval (left groin) 05/16/17 18:03 Consult to Case Management [CONS] Routine Services Needed at Discharge: Wound Vac Notified:: EMILY 05/17/17 15:28 Consult to Wound/ET Nurse [CONS] Stat Reason For Exam: LEFT GROIN DEHISSENCE/FIBRINOUS AREA 05/18/17 14:18 Consult to Physician [CONS] Routine Consulting Provider: MIMI CLEANING Reason For Exam: Leukocytosis with elevated temp,with femoral patch Place consult to:: Notified:: yes Phone number called:: [phone] Was contact made?: Yes If yes, spoke with:: dr cleaning Time called:: 15:20 Comment:: gretchen 05/23/17 12:27 Consult to PICC Line RN [CONS] Stat Reason For Exam: Loss of IV access Type Line:: PICC 05/23/17 17:18 Consult to Case Management [CONS] Routine Services Needed at Discharge: Other Notified:: miss carlson Was contact made?: Yes If yes, spoke with:: miss carlson Time called:: 17:23 Comment:: Inpt Rehab evaluation 05/24/17 17:38 Consult to Dietitian/Nutrition [CONS] Routine Physician Instructions: Reason For Exam: Reason for Consult: Pt needs oral supplement Primary care physician: LITZY HUIZAR Hospitalization Reason for admission: peripheral arterial disease Condition: Stable Disposition: [id number] INPT REHAB FACILITY - Discharge Diagnoses (1) Ischemia of left lower extremity Status: Acute (2) CAD (coronary artery disease) Status: Chronic Qualifiers: Coronary Disease-Associated Artery/Lesion type: [place] artery [place] vs. transplanted heart: N Associated angina: without angina (3) IDDM (insulin dependent diabetes mellitus) Status: Chronic (4) Peripheral neuropathy Status: Chronic Qualifiers: Peripheral neuropathy type: polyneuropathy associated with underlying disease Qualified Code(s): G63 - Polyneuropathy in diseases classified elsewhere (5) Atherosclerosis of [place] arteries of the extremities with ulceration Status: Acute Core Measure Documentation - Palliative Care Palliative Care/ Comfort Measures: Not Applicable - Core Measures Any of the following diagnoses?: history only Exam - Physical Exam Narrative exam: GENERAL: Resting comfortably in bed no acute distress HEENT: [Patient is not pale, not jaundiced, not cyanosed.] NECK: [No JVD, no thyroid enlargement and no lymphadenopathy.] CHEST/LUNGS: [Good air exchange bilaterally, no wheeze, no rales and no rhonchi. ] [No chest wall tenderness, percussion is normal, symmetrical chest wall.] HEART/CARDIOVASCULAR: [Regular rate and rhythm, S1 and S2 only, no murmur.] ABDOMEN: [Abdomen is soft, nondistended, no guarding, no rebound tenderness, no masses palpable per abdomen, active bowel sounds.] SKIN: [Warm and dry, no rash.] NEURO: [Awake, alert, oriented x3, speech normal. Power 5/5 in all the extremities.] EXTREMITIES: Left extremity dressed. Palpable peripheral pulses bilaterally Surgical sites left distal leg shows wound edges well approximated with arpit in place minimal drainage of serosanguineous fluid. - Constitutional Vitals: Temp Pulse Resp BP Pulse Ox 98.8 F 73 20 124/64 100 05/26/17 10:00 05/26/17 10:00 05/26/17 10:00 05/26/17 10:00 05/26/17 10:00 Plan Activity: up only with assistance Weight Bearing Status: Partial Weight Bearing Diet: low cholesterol, low salt Wound: keep clean and dry Durable Medical Equipment Needed Upon Discharge: Crutches Follow up with: LITZY HUIZAR MD [Primary Care Provider] - 7 Days CALVIN RODRIGUEZ MD [Staff Physician] - 14 Days Prescriptions: HYDROcodone/APAP 5-325 [[place] 5-325 mg TAB] 2 each PO Q6H PRN #30 tablet PRN Reason: Pain, Moderate (4-6)
--- NOTE | 2017-05-26 17:47 | Progress Note ---
Assessment and Plan - Patient Problems (1) Ischemia of left lower extremity Status: Acute Plan to address problem: - s/p Fem-SALVAGE ENGINEER bypass - no active bleeding - hemodynamically stable - follow H&H - Incentive spirometer use encouraged (2) CAD (coronary artery disease) Status: Chronic Qualifiers: Coronary Disease-Associated Artery/Lesion type: [place] artery [place] vs. transplanted heart: N Associated angina: without angina Plan to address problem: - medical management suggested - EF 40-45% - per cardiology recs - on plavix, lisinopril and lipitor (3) IDDM (insulin dependent diabetes mellitus) Status: Chronic Plan to address problem: - continue SSI - continue levimir at 40units sq qhs - accuchecks qac & qhs (4) Discharge planning issues Status: Acute Plan to address problem: - per attending - inpatient rehabilitation planned Subjective Date of service: 05/26/17 Principal diagnosis: PVD s/p Femoral-Post Tibial Artery Bypass; CAD s/p CABG; Diabetes II Interval history: Seen and examined at bedside; 24 hr events reviewed; nursing and respiratory care staff consulted; no adverse overnight events reported to me; tentatively for discharge today; no chest pains or palpitations Objective Vital Signs - 12hr 05/26/17 05/26/17 09:57 10:00 Temperature 98.8 F Pulse Rate 73 66 Pulse Rate [ 73 From Monitor] Respiratory 20 Rate Blood Pressure 124/64 Blood Pressure 124/64 [Left Arm] O2 Sat by Pulse 100 Oximetry Constitutional: no acute distress, alert Eyes: non-icteric ENT: oropharynx moist Neck: supple, no lymphadenopathy Effort: normal Ascultation: Bilateral: clear, diminished breath sounds Cardiovascular: regular rate and rhythm Gastrointestinal: normoactive bowel sounds, soft, non-tender Integumentary: cellulitis (Left foot.) Extremities: no cyanosis, no edema, other (left foot in clean dressing and MIKALA bandage) Neurologic: normal mental status, non-focal exam, pupils equal and round, motor strength normal and Psychiatric: mood appropriate, affect normal CBC and BMP: 05/26/17 04:00 05/26/17 04:00 ABG, PT/INR, D-dimer: PT/INR, D-dimer PT 34.6 Sec. (12.2-14.9) H 05/26/17 04:00 INR 3.40 (0.87-1.13) H 05/26/17 04:00 Abnormal lab findings: Abnormal Labs 05/01/17 05/01/17 05/01/17 14:55 14:55 14:55 WBC 12.0 H RBC Hgb POC Hgb Hct POC Hct RDW 12.9 L Lymph % (Auto) 6.3 L [place] % (Auto) Lymph # 0.8 L [place] # 0.9 H Seg Neutrophils % 85.9 H Lymphocytes % (Manual) Monocytes % (Manual) Seg Neutrophils # 10.3 H PT INR 1.15 H APTT 37.7 H Heparin Anti-Xa Level POC Sodium POC Potassium Sodium Potassium Chloride 97.8 L Carbon Dioxide POC BUN BUN 23 H Creatinine Glucose 321 H POC Glucose Hemoglobin A1c Calcium AST ALT Total Protein Albumin Prealbumin Vancomycin Trough Crossmatch 05/01/17 05/01/17 05/02/17 18:32 21:49 03:51 WBC RBC Hgb POC Hgb Hct POC Hct RDW 12.8 L Lymph % (Auto) [place] % (Auto) 12.4 H Lymph # [place] # 1.0 H Seg Neutrophils % Lymphocytes % (Manual) Monocytes % (Manual) Seg Neutrophils # PT INR APTT Heparin Anti-Xa Level POC Sodium POC Potassium Sodium Potassium Chloride Carbon Dioxide POC BUN BUN Creatinine Glucose POC Glucose 247 H 280 H Hemoglobin A1c Calcium AST ALT Total Protein Albumin Prealbumin Vancomycin Trough Crossmatch 05/02/17 05/02/17 05/02/17 03:51 03:51 07:27 WBC RBC Hgb POC Hgb Hct POC Hct RDW Lymph % (Auto) [place] % (Auto) Lymph # [place] # Seg Neutrophils % Lymphocytes % (Manual) Monocytes % (Manual) Seg Neutrophils # PT INR APTT Heparin Anti-Xa Level 0.22 L POC Sodium POC Potassium Sodium Potassium Chloride Carbon Dioxide POC BUN BUN Creatinine Glucose 136 H POC Glucose 115 H Hemoglobin A1c Calcium AST ALT Total Protein Albumin Prealbumin Vancomycin Trough Crossmatch 05/02/17 05/02/17 05/02/17 11:50 20:33 21:56 WBC RBC Hgb POC Hgb Hct POC Hct RDW Lymph % (Auto) [place] % (Auto) Lymph # [place] # Seg Neutrophils % Lymphocytes % (Manual) Monocytes % (Manual) Seg Neutrophils # PT INR APTT Heparin Anti-Xa Level 0.24 L POC Sodium POC Potassium Sodium Potassium Chloride Carbon Dioxide POC BUN BUN Creatinine Glucose POC Glucose 165 H 248 H Hemoglobin A1c Calcium AST ALT Total Protein Albumin Prealbumin Vancomycin Trough Crossmatch 05/03/17 05/03/17 05/03/17 03:23 05:14 05:14 WBC RBC Hgb POC Hgb Hct POC Hct RDW 12.8 L Lymph % (Auto) [place] % (Auto) 14.1 H Lymph # [place] # 1.2 H Seg Neutrophils % Lymphocytes % (Manual) Monocytes % (Manual) Seg Neutrophils # PT INR APTT 101.1 H* Heparin Anti-Xa Level POC Sodium POC Potassium Sodium 136 L Potassium Chloride Carbon Dioxide POC BUN BUN Creatinine Glucose 116 H POC Glucose Hemoglobin A1c Calcium AST ALT Total Protein Albumin 3.0 L Prealbumin Vancomycin Trough Crossmatch 05/03/17 05/03/17 05/03/17 05:14 11:48 11:51 WBC RBC Hgb POC Hgb Hct POC Hct RDW Lymph % (Auto) [place] % (Auto) Lymph # [place] # Seg Neutrophils % Lymphocytes % (Manual) Monocytes % (Manual) Seg Neutrophils # PT INR APTT Heparin Anti-Xa Level 0.26 L POC Sodium POC Potassium Sodium Potassium Chloride Carbon Dioxide POC BUN BUN Creatinine Glucose POC Glucose 128 H Hemoglobin A1c 10.2 H Calcium AST ALT Total Protein Albumin Prealbumin Vancomycin Trough Crossmatch 05/03/17 05/03/17 05/04/17 18:50 22:17 04:02 WBC RBC Hgb POC Hgb Hct POC Hct RDW 12.9 L Lymph % (Auto) [place] % (Auto) Lymph # [place] # Seg Neutrophils % Lymphocytes % (Manual) 13.0 L Monocytes % (Manual) 9.0 H Seg Neutrophils # PT INR APTT Heparin Anti-Xa Level POC Sodium POC Potassium Sodium Potassium Chloride Carbon Dioxide POC BUN BUN Creatinine Glucose POC Glucose 314 H 312 H Hemoglobin A1c Calcium AST ALT Total Protein Albumin Prealbumin Vancomycin Trough Crossmatch 05/04/17 05/04/17 05/04/17 04:02 07:49 11:54 WBC RBC Hgb POC Hgb Hct POC Hct RDW Lymph % (Auto) [place] % (Auto) Lymph # [place] # Seg Neutrophils % Lymphocytes % (Manual) Monocytes % (Manual) Seg Neutrophils # PT INR APTT Heparin Anti-Xa Level POC Sodium POC Potassium Sodium 134 L Potassium 5.2 H Chloride 96.2 L Carbon Dioxide POC BUN BUN 21 H Creatinine Glucose 251 H POC Glucose 177 H 186 H Hemoglobin A1c Calcium AST ALT Total Protein Albumin 3.0 L Prealbumin Vancomycin Trough Crossmatch 05/04/17 05/04/17 05/05/17 17:46 22:51 05:09 WBC RBC Hgb POC Hgb Hct POC Hct RDW Lymph % (Auto) [place] % (Auto) Lymph # [place] # Seg Neutrophils % Lymphocytes % (Manual) Monocytes % (Manual) Seg Neutrophils # PT INR APTT Heparin Anti-Xa Level POC Sodium POC Potassium Sodium 135 L Potassium Chloride Carbon Dioxide POC BUN BUN Creatinine Glucose 179 H POC Glucose 244 H 265 H Hemoglobin A1c Calcium AST ALT Total Protein Albumin 2.9 L Prealbumin Vancomycin Trough Crossmatch 05/05/17 05/05/17 05/05/17 05:09 07:39 11:24 WBC RBC Hgb POC Hgb Hct POC Hct RDW Lymph % (Auto) [place] % (Auto) Lymph # [place] # Seg Neutrophils % Lymphocytes % (Manual) Monocytes % (Manual) Seg Neutrophils # PT INR APTT Heparin Anti-Xa Level 0.15 L 0.29 L POC Sodium POC Potassium Sodium Potassium Chloride Carbon Dioxide POC BUN BUN Creatinine Glucose POC Glucose 153 H Hemoglobin A1c Calcium AST ALT Total Protein Albumin Prealbumin Vancomycin Trough Crossmatch 05/05/17 05/05/17 05/05/17 11:53 16:33 22:05 WBC RBC Hgb POC Hgb Hct POC Hct RDW Lymph % (Auto) [place] % (Auto) Lymph # [place] # Seg Neutrophils % Lymphocytes % (Manual) Monocytes % (Manual) Seg Neutrophils # PT INR APTT Heparin Anti-Xa Level POC Sodium POC Potassium Sodium Potassium Chloride Carbon Dioxide POC BUN BUN Creatinine Glucose POC Glucose 171 H 317 H 313 H Hemoglobin A1c Calcium AST ALT Total Protein Albumin Prealbumin Vancomycin Trough Crossmatch 05/06/17 05/06/17 05/06/17 07:32 11:47 16:28 WBC RBC Hgb POC Hgb Hct POC Hct RDW Lymph % (Auto) [place] % (Auto) Lymph # [place] # Seg Neutrophils % Lymphocytes % (Manual) Monocytes % (Manual) Seg Neutrophils # PT INR APTT Heparin Anti-Xa Level POC Sodium POC Potassium Sodium Potassium Chloride Carbon Dioxide POC BUN BUN Creatinine Glucose POC Glucose 176 H 210 H 283 H Hemoglobin A1c Calcium AST ALT Total Protein Albumin Prealbumin Vancomycin Trough Crossmatch 05/06/17 05/07/17 05/07/17 21:33 03:56 07:11 WBC RBC Hgb POC Hgb Hct POC Hct RDW Lymph % (Auto) [place] % (Auto) Lymph # [place] # Seg Neutrophils % Lymphocytes % (Manual) Monocytes % (Manual) Seg Neutrophils # PT INR APTT Heparin Anti-Xa Level 0.10 L POC Sodium POC Potassium Sodium Potassium Chloride Carbon Dioxide POC BUN BUN Creatinine Glucose POC Glucose 264 H 276 H Hemoglobin A1c Calcium AST ALT Total Protein Albumin Prealbumin Vancomycin Trough Crossmatch 05/07/17 05/07/17 05/07/17 11:48 11:48 16:11 WBC RBC Hgb POC Hgb Hct POC Hct RDW Lymph % (Auto) [place] % (Auto) Lymph # [place] # Seg Neutrophils % Lymphocytes % (Manual) Monocytes % (Manual) Seg Neutrophils # PT INR APTT Heparin Anti-Xa Level POC Sodium 137 L POC Potassium 5.5 H Sodium Potassium Chloride Carbon Dioxide POC BUN 31 H BUN Creatinine Glucose POC Glucose 128 H 158 H Hemoglobin A1c Calcium AST ALT Total Protein Albumin Prealbumin Vancomycin Trough Crossmatch See Detail 05/07/17 05/07/17 05/07/17 16:44 20:28 22:47 WBC RBC Hgb POC Hgb 11.6 L Hct POC Hct 34 L RDW Lymph % (Auto) [place] % (Auto) Lymph # [place] # Seg Neutrophils % Lymphocytes % (Manual) Monocytes % (Manual) Seg Neutrophils # PT INR APTT Heparin Anti-Xa Level POC Sodium POC Potassium 5.0 H Sodium Potassium Chloride Carbon Dioxide POC BUN 27 H BUN Creatinine Glucose POC Glucose 170 H 203 H 253 H Hemoglobin A1c Calcium AST ALT Total Protein Albumin Prealbumin Vancomycin Trough Crossmatch 05/08/17 05/08/17 05/08/17 04:23 07:57 12:01 WBC RBC Hgb POC Hgb Hct POC Hct RDW Lymph % (Auto) [place] % (Auto) Lymph # [place] # Seg Neutrophils % Lymphocytes % (Manual) Monocytes % (Manual) Seg Neutrophils # PT INR APTT Heparin Anti-Xa Level POC Sodium POC Potassium Sodium Potassium 5.3 H D Chloride Carbon Dioxide 19 L POC BUN BUN 29 H Creatinine Glucose 223 H POC Glucose 258 H 282 H Hemoglobin A1c Calcium 8.2 L AST ALT Total Protein Albumin Prealbumin Vancomycin Trough Crossmatch 05/08/17 05/08/17 05/08/17 15:42 19:44 21:39 WBC RBC Hgb POC Hgb Hct POC Hct RDW Lymph % (Auto) [place] % (Auto) Lymph # [place] # Seg Neutrophils % Lymphocytes % (Manual) Monocytes % (Manual) Seg Neutrophils # PT INR APTT Heparin Anti-Xa Level 0.25 L POC Sodium POC Potassium Sodium Potassium Chloride Carbon Dioxide POC BUN BUN Creatinine Glucose POC Glucose 280 H 329 H Hemoglobin A1c Calcium AST ALT Total Protein Albumin Prealbumin Vancomycin Trough Crossmatch 05/09/17 05/09/17 05/09/17 01:52 08:27 12:02 WBC RBC Hgb POC Hgb Hct POC Hct RDW Lymph % (Auto) [place] % (Auto) Lymph # [place] # Seg Neutrophils % Lymphocytes % (Manual) Monocytes % (Manual) Seg Neutrophils # PT INR APTT Heparin Anti-Xa Level 0.29 L POC Sodium POC Potassium Sodium Potassium Chloride Carbon Dioxide POC BUN BUN Creatinine Glucose POC Glucose 187 H 190 H Hemoglobin A1c Calcium AST ALT Total Protein Albumin Prealbumin Vancomycin Trough Crossmatch 05/09/17 05/09/17 05/10/17 16:42 21:58 03:41 WBC 13.4 H RBC 3.61 L Hgb 10.8 L POC Hgb Hct 31.9 L POC Hct RDW 13.1 L Lymph % (Auto) 12.9 L [place] % (Auto) 12.2 H Lymph # [place] # 1.6 H Seg Neutrophils % 74.1 H Lymphocytes % (Manual) Monocytes % (Manual) Seg Neutrophils # 10.0 H PT INR APTT Heparin Anti-Xa Level POC Sodium POC Potassium Sodium Potassium Chloride Carbon Dioxide POC BUN BUN Creatinine Glucose POC Glucose 245 H 344 H Hemoglobin A1c Calcium AST ALT Total Protein Albumin Prealbumin Vancomycin Trough Crossmatch 05/10/17 05/10/17 05/10/17 03:41 07:31 12:08 WBC RBC Hgb POC Hgb Hct POC Hct RDW Lymph % (Auto) [place] % (Auto) Lymph # [place] # Seg Neutrophils % Lymphocytes % (Manual) Monocytes % (Manual) Seg Neutrophils # PT INR APTT Heparin Anti-Xa Level POC Sodium POC Potassium Sodium 134 L Potassium Chloride Carbon Dioxide 21 L POC BUN BUN Creatinine Glucose 171 H POC Glucose 127 H 172 H Hemoglobin A1c Calcium 8.2 L AST 51 H ALT Total Protein Albumin 2.2 L Prealbumin Vancomycin Trough Crossmatch 05/10/17 05/10/17 05/11/17 16:28 21:04 05:03 WBC 19.1 H RBC 3.64 L Hgb 10.7 L POC Hgb Hct 32.1 L POC Hct RDW Lymph % (Auto) 11.8 L [place] % (Auto) 10.8 H Lymph # [place] # 2.1 H Seg Neutrophils % 75.6 H Lymphocytes % (Manual) Monocytes % (Manual) Seg Neutrophils # 14.4 H PT INR APTT Heparin Anti-Xa Level POC Sodium POC Potassium Sodium Potassium Chloride Carbon Dioxide POC BUN BUN Creatinine Glucose POC Glucose 197 H 295 H Hemoglobin A1c Calcium AST ALT Total Protein Albumin Prealbumin Vancomycin Trough Crossmatch 05/11/17 05/11/17 05/11/17 05:03 07:30 09:52 WBC RBC Hgb POC Hgb Hct POC Hct RDW Lymph % (Auto) [place] % (Auto) Lymph # [place] # Seg Neutrophils % Lymphocytes % (Manual) Monocytes % (Manual) Seg Neutrophils # PT INR APTT Heparin Anti-Xa Level POC Sodium POC Potassium Sodium Potassium 5.2 H Chloride Carbon Dioxide POC BUN BUN Creatinine Glucose 143 H POC Glucose 118 H 124 H Hemoglobin A1c Calcium AST 51 H ALT Total Protein Albumin 2.7 L Prealbumin Vancomycin Trough Crossmatch 05/11/17 05/11/17 05/11/17 11:32 12:22 16:22 WBC RBC Hgb POC Hgb Hct POC Hct RDW Lymph % (Auto) [place] % (Auto) Lymph # [place] # Seg Neutrophils % Lymphocytes % (Manual) Monocytes % (Manual) Seg Neutrophils # PT INR APTT Heparin Anti-Xa Level < 0.10 L POC Sodium POC Potassium Sodium Potassium Chloride Carbon Dioxide POC BUN BUN Creatinine Glucose POC Glucose 119 H 197 H Hemoglobin A1c Calcium AST ALT Total Protein Albumin Prealbumin Vancomycin Trough Crossmatch 05/11/17 05/12/17 05/12/17 22:06 05:35 05:35 WBC RBC 3.64 L Hgb 10.8 L POC Hgb Hct 32.5 L POC Hct RDW Lymph % (Auto) 8.0 L [place] % (Auto) 12.8 H Lymph # 0.8 L [place] # 1.3 H Seg Neutrophils % 77.9 H Lymphocytes % (Manual) Monocytes % (Manual) Seg Neutrophils # 8.2 H PT INR APTT Heparin Anti-Xa Level POC Sodium POC Potassium Sodium 136 L Potassium Chloride Carbon Dioxide POC BUN BUN Creatinine Glucose 210 H POC Glucose 296 H Hemoglobin A1c Calcium 8.3 L AST ALT Total Protein 6.2 L Albumin 2.6 L Prealbumin Vancomycin Trough Crossmatch 05/12/17 05/12/17 05/12/17 07:26 11:30 11:41 WBC RBC Hgb 11.4 L POC Hgb Hct 35.1 L POC Hct RDW Lymph % (Auto) [place] % (Auto) Lymph # [place] # Seg Neutrophils % Lymphocytes % (Manual) Monocytes % (Manual) Seg Neutrophils # PT INR APTT Heparin Anti-Xa Level POC Sodium POC Potassium Sodium Potassium Chloride Carbon Dioxide POC BUN BUN Creatinine Glucose POC Glucose 171 H 126 H Hemoglobin A1c Calcium AST ALT Total Protein Albumin Prealbumin Vancomycin Trough Crossmatch 05/12/17 05/12/17 05/12/17 16:23 21:14 21:50 WBC RBC Hgb POC Hgb Hct POC Hct RDW Lymph % (Auto) [place] % (Auto) Lymph # [place] # Seg Neutrophils % Lymphocytes % (Manual) Monocytes % (Manual) Seg Neutrophils # PT INR APTT Heparin Anti-Xa Level 0.22 L POC Sodium POC Potassium Sodium Potassium Chloride Carbon Dioxide POC BUN BUN Creatinine Glucose POC Glucose 223 H 308 H Hemoglobin A1c Calcium AST ALT Total Protein Albumin Prealbumin Vancomycin Trough Crossmatch 05/13/17 05/13/17 05/13/17 04:21 07:24 11:46 WBC RBC Hgb POC Hgb Hct POC Hct RDW Lymph % (Auto) [place] % (Auto) Lymph # [place] # Seg Neutrophils % Lymphocytes % (Manual) Monocytes % (Manual) Seg Neutrophils # PT INR APTT Heparin Anti-Xa Level 0.23 L POC Sodium POC Potassium Sodium Potassium Chloride Carbon Dioxide POC BUN BUN Creatinine Glucose POC Glucose 112 H 206 H Hemoglobin A1c Calcium AST ALT Total Protein Albumin Prealbumin Vancomycin Trough Crossmatch 05/13/17 05/13/17 05/13/17 11:57 16:42 21:44 WBC RBC Hgb POC Hgb Hct POC Hct RDW Lymph % (Auto) [place] % (Auto) Lymph # [place] # Seg Neutrophils % Lymphocytes % (Manual) Monocytes % (Manual) Seg Neutrophils # PT INR APTT Heparin Anti-Xa Level 0.21 L POC Sodium POC Potassium Sodium Potassium Chloride Carbon Dioxide POC BUN BUN Creatinine Glucose POC Glucose 217 H 245 H Hemoglobin A1c Calcium AST ALT Total Protein Albumin Prealbumin Vancomycin Trough Crossmatch 05/14/17 05/14/17 05/14/17 07:13 16:03 21:01 WBC RBC Hgb 10.9 L POC Hgb Hct 33.1 L POC Hct RDW Lymph % (Auto) [place] % (Auto) Lymph # [place] # Seg Neutrophils % Lymphocytes % (Manual) Monocytes % (Manual) Seg Neutrophils # PT INR APTT Heparin Anti-Xa Level POC Sodium POC Potassium Sodium Potassium Chloride Carbon Dioxide POC BUN BUN Creatinine Glucose POC Glucose 144 H 262 H Hemoglobin A1c Calcium AST ALT Total Protein Albumin Prealbumin Vancomycin Trough Crossmatch 05/15/17 05/15/17 05/15/17 07:39 11:31 16:24 WBC RBC Hgb POC Hgb Hct POC Hct RDW Lymph % (Auto) [place] % (Auto) Lymph # [place] # Seg Neutrophils % Lymphocytes % (Manual) Monocytes % (Manual) Seg Neutrophils # PT INR APTT Heparin Anti-Xa Level POC Sodium POC Potassium Sodium Potassium Chloride Carbon Dioxide POC BUN BUN Creatinine Glucose POC Glucose 246 H 297 H 319 H Hemoglobin A1c Calcium AST ALT Total Protein Albumin Prealbumin Vancomycin Trough Crossmatch 05/15/17 05/16/17 05/16/17 20:55 07:39 09:03 WBC RBC Hgb 8.4 L POC Hgb Hct 25.9 L D POC Hct RDW Lymph % (Auto) [place] % (Auto) Lymph # [place] # Seg Neutrophils % Lymphocytes % (Manual) Monocytes % (Manual) Seg Neutrophils # PT INR APTT Heparin Anti-Xa Level POC Sodium POC Potassium Sodium Potassium Chloride Carbon Dioxide POC BUN BUN Creatinine Glucose POC Glucose 344 H 110 H Hemoglobin A1c Calcium AST ALT Total Protein Albumin Prealbumin Vancomycin Trough Crossmatch 05/16/17 05/16/17 05/16/17 11:51 16:48 23:09 WBC RBC Hgb POC Hgb Hct POC Hct RDW Lymph % (Auto) [place] % (Auto) Lymph # [place] # Seg Neutrophils % Lymphocytes % (Manual) Monocytes % (Manual) Seg Neutrophils # PT INR APTT Heparin Anti-Xa Level POC Sodium POC Potassium Sodium Potassium Chloride Carbon Dioxide POC BUN BUN Creatinine Glucose POC Glucose 119 H 188 H 219 H Hemoglobin A1c Calcium AST ALT Total Protein Albumin Prealbumin Vancomycin Trough Crossmatch 05/17/17 05/17/17 05/17/17 04:39 04:39 07:34 WBC 18.6 H RBC 2.64 L Hgb 7.6 L POC Hgb Hct 23.3 L POC Hct RDW Lymph % (Auto) 7.2 L [place] % (Auto) 13.3 H Lymph # [place] # 2.5 H Seg Neutrophils % 79.2 H Lymphocytes % (Manual) Monocytes % (Manual) Seg Neutrophils # 14.8 H PT INR APTT Heparin Anti-Xa Level POC Sodium POC Potassium Sodium 133 L Potassium Chloride 95.5 L Carbon Dioxide POC BUN BUN 26 H Creatinine 1.6 H D Glucose 183 H POC Glucose 144 H Hemoglobin A1c Calcium 8.2 L AST 154 H ALT 79 H Total Protein Albumin 2.6 L Prealbumin Vancomycin Trough Crossmatch 05/17/17 05/17/17 05/17/17 09:17 16:23 22:37 WBC RBC Hgb 8.3 L POC Hgb Hct 24.8 L POC Hct RDW Lymph % (Auto) [place] % (Auto) Lymph # [place] # Seg Neutrophils % Lymphocytes % (Manual) Monocytes % (Manual) Seg Neutrophils # PT INR APTT Heparin Anti-Xa Level POC Sodium POC Potassium Sodium Potassium Chloride Carbon Dioxide POC BUN BUN Creatinine Glucose POC Glucose 145 H 207 H Hemoglobin A1c Calcium AST ALT Total Protein Albumin Prealbumin Vancomycin Trough Crossmatch 05/18/17 05/18/17 05/18/17 04:23 04:23 07:37 WBC 19.8 H RBC 2.73 L Hgb 7.9 L POC Hgb Hct 24.2 L POC Hct RDW Lymph % (Auto) 6.1 L [place] % (Auto) 13.8 H Lymph # [place] # 2.7 H Seg Neutrophils % 79.8 H Lymphocytes % (Manual) Monocytes % (Manual) Seg Neutrophils # 15.8 H PT INR APTT Heparin Anti-Xa Level POC Sodium POC Potassium Sodium 133 L Potassium Chloride 93.3 L Carbon Dioxide POC BUN BUN 26 H Creatinine Glucose 145 H POC Glucose 144 H Hemoglobin A1c Calcium AST 189 H ALT 101 H Total Protein Albumin 2.7 L Prealbumin Vancomycin Trough Crossmatch 05/18/17 05/18/17 05/18/17 11:24 16:48 19:26 WBC RBC Hgb POC Hgb Hct POC Hct RDW Lymph % (Auto) [place] % (Auto) Lymph # [place] # Seg Neutrophils % Lymphocytes % (Manual) Monocytes % (Manual) Seg Neutrophils # PT INR APTT Heparin Anti-Xa Level 0.20 L POC Sodium POC Potassium Sodium Potassium Chloride Carbon Dioxide POC BUN BUN Creatinine Glucose POC Glucose 142 H 226 H Hemoglobin A1c Calcium AST ALT Total Protein Albumin Prealbumin Vancomycin Trough Crossmatch 05/18/17 05/19/17 05/19/17 21:53 07:27 12:38 WBC RBC Hgb POC Hgb Hct POC Hct RDW Lymph % (Auto) [place] % (Auto) Lymph # [place] # Seg Neutrophils % Lymphocytes % (Manual) Monocytes % (Manual) Seg Neutrophils # PT INR APTT Heparin Anti-Xa Level POC Sodium POC Potassium Sodium Potassium Chloride Carbon Dioxide POC BUN BUN Creatinine Glucose POC Glucose 275 H 164 H 266 H Hemoglobin A1c Calcium AST ALT Total Protein Albumin Prealbumin Vancomycin Trough Crossmatch 05/19/17 05/19/17 05/19/17 13:03 16:25 22:19 WBC 19.4 H RBC 2.68 L Hgb 7.7 L POC Hgb Hct 23.7 L POC Hct RDW Lymph % (Auto) 5.7 L [place] % (Auto) 11.2 H Lymph # 1.1 L [place] # 2.2 H Seg Neutrophils % 82.9 H Lymphocytes % (Manual) Monocytes % (Manual) Seg Neutrophils # 16.1 H PT INR APTT Heparin Anti-Xa Level POC Sodium POC Potassium Sodium Potassium Chloride Carbon Dioxide POC BUN BUN Creatinine Glucose POC Glucose 253 H 182 H Hemoglobin A1c Calcium AST ALT Total Protein Albumin Prealbumin Vancomycin Trough Crossmatch 05/20/17 05/20/17 05/20/17 07:14 07:14 16:11 WBC 17.6 H RBC 2.77 L Hgb 7.8 L 7.9 L POC Hgb Hct 23.7 L 24.8 L POC Hct RDW Lymph % (Auto) 8.2 L [place] % (Auto) 11.7 H Lymph # [place] # 2.1 H Seg Neutrophils % 79.1 H Lymphocytes % (Manual) Monocytes % (Manual) Seg Neutrophils # 14.0 H PT INR APTT Heparin Anti-Xa Level POC Sodium POC Potassium Sodium Potassium Chloride Carbon Dioxide POC BUN BUN Creatinine Glucose POC Glucose 142 H Hemoglobin A1c Calcium AST ALT Total Protein Albumin Prealbumin Vancomycin Trough Crossmatch 05/20/17 05/21/17 05/21/17 21:49 03:58 03:58 WBC 13.1 H RBC 2.34 L Hgb 6.7 L POC Hgb Hct 20.8 L POC Hct RDW Lymph % (Auto) 9.0 L [place] % (Auto) 11.1 H Lymph # [place] # 1.5 H Seg Neutrophils % 79.0 H Lymphocytes % (Manual) Monocytes % (Manual) Seg Neutrophils # 10.3 H PT INR APTT Heparin Anti-Xa Level POC Sodium POC Potassium Sodium 134 L Potassium Chloride 97.2 L Carbon Dioxide POC BUN BUN Creatinine Glucose 115 H POC Glucose 240 H Hemoglobin A1c Calcium 7.9 L AST 154 H ALT 137 H Total Protein Albumin 2.2 L Prealbumin Vancomycin Trough Crossmatch 05/21/17 05/21/17 05/21/17 10:51 11:53 16:23 WBC RBC Hgb POC Hgb Hct POC Hct RDW Lymph % (Auto) [place] % (Auto) Lymph # [place] # Seg Neutrophils % Lymphocytes % (Manual) Monocytes % (Manual) Seg Neutrophils # PT INR APTT Heparin Anti-Xa Level POC Sodium POC Potassium Sodium Potassium Chloride Carbon Dioxide POC BUN BUN Creatinine Glucose POC Glucose 158 H 206 H Hemoglobin A1c Calcium AST ALT Total Protein Albumin Prealbumin Vancomycin Trough Crossmatch See Detail 05/21/17 05/22/17 05/22/17 23:02 06:21 07:20 WBC RBC Hgb POC Hgb Hct POC Hct RDW Lymph % (Auto) [place] % (Auto) Lymph # [place] # Seg Neutrophils % Lymphocytes % (Manual) Monocytes % (Manual) Seg Neutrophils # PT INR APTT Heparin Anti-Xa Level POC Sodium POC Potassium Sodium 136 L Potassium Chloride Carbon Dioxide POC BUN BUN Creatinine Glucose 175 H POC Glucose 357 H 193 H Hemoglobin A1c Calcium 7.8 L AST 93 H ALT 124 H Total Protein 5.8 L Albumin 2.5 L Prealbumin Vancomycin Trough Crossmatch 05/22/17 05/22/17 05/22/17 07:40 11:30 17:25 WBC 12.7 H RBC 2.90 L Hgb 8.5 L POC Hgb Hct 26.1 L POC Hct RDW Lymph % (Auto) 8.2 L [place] % (Auto) 11.5 H Lymph # 1.0 L [place] # 1.5 H Seg Neutrophils % 79.5 H Lymphocytes % (Manual) Monocytes % (Manual) Seg Neutrophils # 10.1 H PT INR APTT Heparin Anti-Xa Level POC Sodium POC Potassium Sodium Potassium Chloride Carbon Dioxide POC BUN BUN Creatinine Glucose POC Glucose 136 H 153 H Hemoglobin A1c Calcium AST ALT Total Protein Albumin Prealbumin Vancomycin Trough Crossmatch 05/22/17 05/23/17 05/23/17 21:37 06:18 06:18 WBC 14.1 H RBC 2.79 L Hgb 8.1 L POC Hgb Hct 24.7 L POC Hct RDW Lymph % (Auto) 10.1 L [place] % (Auto) 13.0 H Lymph # [place] # 1.8 H Seg Neutrophils % 76.0 H Lymphocytes % (Manual) Monocytes % (Manual) Seg Neutrophils # 10.7 H PT INR APTT Heparin Anti-Xa Level POC Sodium POC Potassium Sodium Potassium Chloride Carbon Dioxide 21 L POC BUN BUN Creatinine Glucose 71 L POC Glucose 273 H Hemoglobin A1c Calcium 8.0 L AST 76 H ALT 95 H Total Protein 6.2 L Albumin 2.0 L Prealbumin Vancomycin Trough Crossmatch 05/23/17 05/23/17 05/23/17 07:19 11:29 11:52 WBC RBC Hgb POC Hgb Hct POC Hct RDW Lymph % (Auto) [place] % (Auto) Lymph # [place] # Seg Neutrophils % Lymphocytes % (Manual) Monocytes % (Manual) Seg Neutrophils # PT INR APTT Heparin Anti-Xa Level POC Sodium POC Potassium Sodium Potassium Chloride Carbon Dioxide POC BUN BUN Creatinine Glucose POC Glucose 67 L 134 H Hemoglobin A1c Calcium AST ALT Total Protein Albumin Prealbumin 0.030 L Vancomycin Trough Crossmatch 05/23/17 05/23/17 05/24/17 16:41 21:55 05:00 WBC RBC 2.48 L Hgb 7.3 L POC Hgb Hct 22.2 L POC Hct RDW Lymph % (Auto) 10.1 L Stanton % (Auto) 13.1 H Lymph # 1.0 L Stanton # 1.3 H Seg Neutrophils % 75.2 H Lymphocytes % (Manual) Monocytes % (Manual) Seg Neutrophils # PT INR APTT Heparin Anti-Xa Level POC Sodium POC Potassium Sodium Potassium Chloride Carbon Dioxide POC BUN BUN Creatinine Glucose POC Glucose 223 H 262 H Hemoglobin A1c Calcium AST ALT Total Protein Albumin Prealbumin Vancomycin Trough Crossmatch 05/24/17 05/24/17 05/24/17 05:00 05:00 07:18 WBC RBC Hgb POC Hgb Hct POC Hct RDW Lymph % (Auto) Stanton % (Auto) Lymph # Stanton # Seg Neutrophils % Lymphocytes % (Manual) Monocytes % (Manual) Seg Neutrophils # PT 15.7 H INR 1.19 H APTT Heparin Anti-Xa Level POC Sodium POC Potassium Sodium 133 L Potassium Chloride Carbon Dioxide 20 L POC BUN BUN Creatinine Glucose 196 H POC Glucose 180 H Hemoglobin A1c Calcium 7.3 L AST 59 H ALT 68 H Total Protein 5.6 L Albumin 1.9 L Prealbumin Vancomycin Trough Crossmatch 05/24/17 05/24/17 05/24/17 11:54 16:27 22:05 WBC RBC Hgb POC Hgb Hct POC Hct RDW Lymph % (Auto) Stanton % (Auto) Lymph # [place] # Seg Neutrophils % Lymphocytes % (Manual) Monocytes % (Manual) Seg Neutrophils # PT INR APTT Heparin Anti-Xa Level POC Sodium POC Potassium Sodium Potassium Chloride Carbon Dioxide POC BUN BUN Creatinine Glucose POC Glucose 126 H 217 H 271 H Hemoglobin A1c Calcium AST ALT Total Protein Albumin Prealbumin Vancomycin Trough Crossmatch 05/25/17 05/25/17 05/25/17 04:00 09:52 09:52 WBC RBC 2.68 L Hgb 8.0 L POC Hgb Hct 24.6 L POC Hct RDW Lymph % (Auto) 9.6 L Stanton % (Auto) 12.8 H Lymph # 1.0 L Stanton # 1.4 H Seg Neutrophils % 76.3 H Lymphocytes % (Manual) Monocytes % (Manual) Seg Neutrophils # 8.3 H PT 15.4 H INR 1.23 H APTT Heparin Anti-Xa Level POC Sodium POC Potassium Sodium Potassium Chloride Carbon Dioxide POC BUN BUN Creatinine 1.6 H D Glucose POC Glucose Hemoglobin A1c Calcium 7.8 L AST 54 H ALT 62 H Total Protein 6.0 L Albumin 2.3 L Prealbumin Vancomycin Trough Crossmatch 05/25/17 05/25/17 05/25/17 16:32 20:54 21:41 WBC RBC Hgb POC Hgb Hct POC Hct RDW Lymph % (Auto) Stanton % (Auto) Lymph # [place] # Seg Neutrophils % Lymphocytes % (Manual) Monocytes % (Manual) Seg Neutrophils # PT INR APTT Heparin Anti-Xa Level POC Sodium POC Potassium Sodium Potassium Chloride Carbon Dioxide POC BUN BUN Creatinine Glucose POC Glucose 176 H 263 H Hemoglobin A1c Calcium AST ALT Total Protein Albumin Prealbumin Vancomycin Trough 26.0 H Crossmatch 05/26/17 05/26/17 05/26/17 04:00 04:00 04:00 WBC RBC 2.59 L Hgb 7.9 L POC Hgb Hct 23.4 L POC Hct RDW Lymph % (Auto) 8.0 L Stanton % (Auto) 11.7 H Lymph # 0.8 L Stanton # 1.2 H Seg Neutrophils % 78.4 H Lymphocytes % (Manual) Monocytes % (Manual) Seg Neutrophils # 8.0 H PT 34.6 H INR 3.40 H APTT Heparin Anti-Xa Level POC Sodium POC Potassium Sodium Potassium Chloride Carbon Dioxide 20 L POC BUN BUN 21 H Creatinine 2.0 H Glucose 155 H POC Glucose Hemoglobin A1c Calcium 7.6 L AST 42 H ALT Total Protein 5.8 L Albumin 2.1 L Prealbumin Vancomycin Trough Crossmatch 05/26/17 05/26/17 07:25 11:58 WBC RBC Hgb POC Hgb Hct POC Hct RDW Lymph % (Auto) Stanton % (Auto) Lymph # [place] # Seg Neutrophils % Lymphocytes % (Manual) Monocytes % (Manual) Seg Neutrophils # PT INR APTT Heparin Anti-Xa Level POC Sodium POC Potassium Sodium Potassium Chloride Carbon Dioxide POC BUN BUN Creatinine Glucose POC Glucose 236 H 188 H Hemoglobin A1c Calcium AST ALT Total Protein Albumin Prealbumin Vancomycin Trough Crossmatch
== END 2017-05-26 15:00 | DRG 270 ==
LOC: UNDOADMIN 11:41 → 3A 11:41 → CC2 13:34 → CC1 05-07 19:09 → CC2 05-08 17:01
PROVIDERS: ADMIT Radiology Diagnostic Radiology; ATTEND Radiology Diagnostic Radiology
PROC: 041L0JN Bypass Left Femoral Artery to Posterior Tibial Artery with Synthetic Substitute, Open Approach (ICD-10-PCS; 2017-05-07)
PROC: 04CL3ZZ Extirpation of Matter from Left Femoral Artery, Percutaneous Approach (ICD-10-PCS; principal; 2017-05-14)
PROC: 047 Lower Arteries, Dilation (ICD-10-PCS; 2017-05-14)
PROC: 30233N1 Transfusion of Nonautologous Red Blood Cells into Peripheral Vein, Percutaneous Approach (ICD-10-PCS; 2017-05-21)
PROC: 0KBW0ZZ Excision of Left Foot Muscle, Open Approach (ICD-10-PCS; 2017-05-22)
PROC: 0Y6S0Z0 Detachment at Left 2nd Toe, Complete, Open Approach (ICD-10-PCS; 2017-05-22)
PROC: 0Y6U0Z0 Detachment at Left 3rd Toe, Complete, Open Approach (ICD-10-PCS; 2017-05-22)
DX: E11.52 Type 2 diabetes mellitus with diabetic peripheral angiopathy with gangrene (principal); E43 Unspecified severe protein-calorie malnutrition; I70.269 Atherosclerosis of native arteries of extremities with gangrene, unspecified extremity; E11.621 Type 2 diabetes mellitus with foot ulcer; E87.5 Hyperkalemia; E11.42 Type 2 diabetes mellitus with diabetic polyneuropathy; I25.5 Ischemic cardiomyopathy; Z95.1 Presence of aortocoronary bypass graft; I11.0 Hypertensive heart disease with heart failure; I50.9 Heart failure, unspecified; Z96.611 Presence of right artificial shoulder joint; Z82.49 Family history of ischemic heart disease and other diseases of the circulatory system; Z88.5 Allergy status to narcotic agent; Z88.8 Allergy status to other drugs, medicaments and biological substances; Z79.4 Long term (current) use of insulin; I25.10 Atherosclerotic heart disease of native coronary artery without angina pectoris; E78.5 Hyperlipidemia, unspecified; L98.499 Non-pressure chronic ulcer of skin of other sites with unspecified severity; Z87.891 Personal history of nicotine dependence; I82.492 Acute embolism and thrombosis of other specified deep vein of left lower extremity; I25.2 Old myocardial infarction
CPT/HCPCS: 36415; 37184; 37224; 37228; 71010; 75710; 78452; 80048; 80053; 80202; 82140; 82270; 82803; 82962; 83036; 84134; 85007; 85014; 85018; 85025; 85049; 85520; 85610; 85730; 86850; 86900; 86901; 86920; 87040; 88304; 88305; 88307; 88311; 93005; 93010; 93017; 93306; A4649; A9270-GY; A9502; C1725; C1751; C1757; C1760; C1768; C1769; C1874; C1887; C1894; C9250; G8978-GP; G8979-GP; J0690; J1100; J1170; J1200; J1644; J1650; J1815; J1818; J2250; J2270; J2370; J2405; J2440; J2543; J2704; J2720; J2785; J2997; J3010; J3246; J3370; J3490; J7030; J7040; J7050; P9016; Q9966; Q9967

== ENCOUNTER 2017-05-28 16:38 | Emergency (ER) | payer MEDICARE, OTHER ==
[2017-05-28 17:37] VITALS: BP 120/65
[2017-05-28] MEDS ORDERED: FLEXERIL PO ONE (18:13)
[2017-05-28 19:11] LABS: Hematocrit 25.9 % (35.5-45.6); Hemoglobin 8.7 gm/dl (11.8-15.2); Mean Corpuscular HGB Conc 34 % (32-34); Mean Corpuscular Hemoglobin 31 pg (28-32); Mean Corpuscular Volume 91 fl (84-94); Platelet Count 281 K/mm3 (140-440); Red Blood Count 2.84 M/mm3 (3.65-5.03); Red Cell Distribution Width 15.6 % (13.2-15.2); White Blood Count 11.2 K/mm3 (4.5-11.0)
[2017-05-28 19:27] LABS: INR 1.11 (0.87-1.13)
[2017-05-28 19:28] LABS: Partial Thromboplastin Time 35.7 Sec. (24.2-36.6)
--- NOTE | 2017-05-28 19:44 | Emergency Department Report ---
HPI - General Chief Complaint: Pain General Time Seen by Provider: 05/28/17 18:13 - HPI HPI: 76-year-old male presented to the ED for leg pain. Patient was sent here from a rehabilitation home. The patient had long hospital stay complicated by a left leg blood clot left leg ischemia and was recently discharged to rehabilitation. He complained there of left leg pain and was sent again to ED for rule out DVT. No fever no chills. Patient stated that his pain at that time was 2 out of 10. He does have a wound VAC in that same leg. ED Past Medical Hx - Past Medical History Previous Medical History?: Yes Hx Hypertension: Yes Hx Congestive Heart Failure: Yes Hx Diabetes: Yes Hx Deep Vein Thrombosis: Yes Hx HIV: No - Surgical History Past Surgical History?: Yes Hx Coronary Stent: Yes (2002) Hx Open Heart Surgery: Yes (CABG 2004) - Social History Smoking Status: Former Smoker Substance Use Type: None - Medications Home Medications: Home Medications Medication Instructions Recorded Confirmed Last Taken Type Dorzolamide/Timolol/Pf [Cosopt Pf 2 drop INTRAOCULA Q12HR MDD 2 gtts 05/22/1605/01/17 08:00 History Eye Drops] Empagliflozin [Jardiance] 25 mg PO DAILY MDD 25mg 05/22/16 05/01/17 04/30/17 08: 00 History B12/Levomefolate Calcium/B-6 1 tab PO DAILY #30 tablet 08/26/16 05/01/17 08:00 Rx [Foltx Tablet] Clopidogrel [Plavix] 75 mg PO QDAY #30 tablet 08/26/16 05/01/17 05/01/17 08:00 Rx Insulin Glargine [Lantus VIAL] 25 units SUB-Q QHS #10 units 08/26/16 05/01/17 23:00 Rx Lisinopril [Zestril TAB] 40 mg PO QDAY #30 tablet 08/26/16 05/01/17 04/30/17 12: 00 Rx 40mg Metoprolol Xl [Metoprolol 50 mg PO QDAY 30 Days 08/26/16 05/01/17 04/30/17 08: 00 Rx SUCCINATE ER TAB] Nitroglycerin [place] [Nitromist] 0.4 mg INHALATION PRN PRN #30 08/26/16 05/01/17 05/01/16 16:00 Rx bottle 0.4mg Pregabalin [Lyrica] 100 mg PO DAILY #60 capsule 08/26/16 05/01/17 05/01/17 08: 00 Rx 100mg Dabigatran [Pradaxa] 75 mg PO BID MDD 75mg 01/24/17 05/01/17 05/01/17 08:00 History Acetaminophen [Acetaminophen TAB] 650 mg PO Q4H PRN #30 tablet 02/02/1704/30/17 23:00 Rx 650mg AtorvaSTATin [Lipitor] 40 mg PO QHS tablet 05/26/17 Unknown Rx Clopidogrel [Plavix] 75 mg PO QDAY tablet 05/26/17 Unknown Rx HYDROcodone/APAP 5-325 [[place] 2 each PO Q6H PRN #30 tablet 05/26/17 Unknown Rx 5-325 mg TAB] Metoprolol Xl [Metoprolol 50 mg PO QDAY tablet 05/26/17 Unknown Rx SUCCINATE ER TAB] ED Review of Systems ROS: Stated complaint: LEFT LEG PAIN/AMS Other details as noted in HPI Comment: All other systems reviewed and negative Musculoskeletal: myalgia Skin: other (on back and left leg.) Physical Exam - Physical Exam Vital Signs: Vital Signs 05/28/17 17:08 Temperature 99.2 F Pulse Rate 81 Respiratory 14 Rate Blood Pressure 120/65 O2 Sat by Pulse 98 Oximetry Physical Exam: Vitals reviewed. Gen. alert and oriented 3 in no distress Head atraumatic normocephalic Eyes PERR LA EOMI Chest regular rate and rhythm normal S1-S2 lungs clear bilaterally Abdomen soft nondistended Back no point tenderness paravertebral tenderness Neuro no focal deficit. Psych normal mood. Extremity left leg with wound VAC and no tenderness 1+ edema. Left Leg appeared to be in appropriate postoperative state. ED Course Vital Signs 05/28/17 17:08 Temperature 99.2 F Pulse Rate 81 Respiratory 14 Rate Blood Pressure 120/65 O2 Sat by Pulse 98 Oximetry - Reevaluation(s) Reevaluation #2: 05/28/17 19:42 Patient underwent bag in the left leg. No swelling no redness. Patient is anemic and will that is actively draining blood still. Anticoagulation would lead to very poor outcome in this patient. I recommend that doppler ultrasound be done tomorrow. Since vascular already left for the day. Differential diagnosis of DVT is very low in this patient. Risks of anticoagulation outweighed the benefits. Patient advised to return tomorrow for tests. Currently denies any pain after Flexeril was given. ED Medical Decision Making - Lab Data Result diagrams: 05/28/17 18:34 Critical care attestation.: If time is entered above; I have spent that time in minutes in the direct care of this critically ill patient, excluding procedure time. ED Disposition Clinical Impression: Postoperative pain of extremity Disposition: DC-01 TO HOME OR SELFCARE Is pt being admited?: No Does the pt Need Aspirin: No Condition: Stable Additional Instructions: Return tomorrow for Doppler. Referrals: PRIMARY CARE, [Primary Care Provider] - 3-5 Days
== END 2017-05-28 23:30 | disposition home or self-care (01) ==
LOC: ED 16:38
DX: M79.605 Pain in left leg (principal); G89.18 Other acute postprocedural pain; I10 Essential (primary) hypertension; I50.9 Heart failure, unspecified; E11.9 Type 2 diabetes mellitus without complications; Z86.718 Personal history of other venous thrombosis and embolism; Z87.891 Personal history of nicotine dependence
CPT/HCPCS: 36415; 85027; 85610; 85730; 99283

== ENCOUNTER 2017-06-08 06:07 | Day surgery (SDC) | payer MEDICARE, OTHER ==
[~2017-06-08 06:07] MED LIST changes: +ANCEF/STERILE WATER 2 GM/20 ML 2 GM/20 ML SYRINGE IV NR; -PEPCID IV NR; +PEPCID PO NR; -VERSED IV NR
[2017-06-08] MEDS ORDERED: NACL BACTERIOSTATIC INFILTRATI ONE (06:50)
[2017-06-08] MEDS ORDERED: SUBLIMAZE ONE (07:19)
[2017-06-08] MEDS ORDERED: XYLOCAINE MPF 2% ONE (07:19)
[2017-06-08] MEDS ORDERED: DIPRIVAN 10 MG/ML IV ONE ×2 (07:20→09:58)
--- NOTE | 2017-06-08 07:22 | Anesthesia Consultation ---
Anesthesia Consult and Med Hx Date of service: 06/08/17 - Airway Anesthetic Teeth Evaluation: Good ROM Head & Neck: Adequate Mental/Hyoid Distance: Adequate Mallampati Class: Class II Intubation Access Assessment: Probably Good - Pulmonary Exam CTA: Yes - Cardiac Exam Cardiac Exam: RRR - Pre-Operative Health Status ASA Pre-Surgery Classification: ASA4 Proposed Anesthetic Plan: General - Pulmonary Hx Smoking: Yes (STOPPED 1984 , 1/2 PPD X 25 YRS) Hx Sleep Apnea: No (LOREN PRE SCREEN HIGH RISK) - Cardiovascular System Hx Hypertension: Yes Hx Coronary Artery Disease: Yes (CABG 2005 x 3) Hx Angina: Yes (RARE,NITRO USES 3 YRS AGO) Hx Percutaneous Transluminal Coronary Angioplasty (PTCA): Yes (stents 2002) Hx Cardia Arrhythmia: No Hx Peripheral Vascular Disease: Yes (arterial and DVT (2016)) - Central Nervous System Hx Neuromuscular Disorder: Yes (bilateral LE neuropathy) Hx Psychiatric Problems: No - Endocrine Hx Insulin Dependent Diabetes: Yes (on Lantus) Hx Non-Insulin Dependent Diabetes: Yes - Hematic Hx Anemia: Yes
--- NOTE | 2017-06-08 07:24 | Anesthesia Day of Surgery ---
Anesthesia Day of Surgery - Day of Surgery Patient Examined: Yes Patient H&P Reviewed: Yes Patient is NPO: Yes Beta Blockers: Yes
[2017-06-08] MEDS ORDERED: XYLOCAINE 1% 20 mL ONE (07:30)
[2017-06-08] MEDS ORDERED: SODIUM BICARBONATE ONE (07:30)
[2017-06-08 07:34] LABS: Basophils % (Auto) 0.4 % (0.0-1.8); Eosinophils % (Auto) 6.5 % (0.0-4.3); Hematocrit 34.9 % (35.5-45.6); Hemoglobin 11.5 gm/dl (11.8-15.2); Mean Corpuscular HGB Conc 33 % (32-34); Mean Corpuscular Hemoglobin 30 pg (28-32); Mean Corpuscular Volume 90 fl (84-94); Platelet Count 221 K/mm3 (140-440); Red Blood Count 3.88 M/mm3 (3.65-5.03); Red Cell Distribution Width 16.6 % (13.2-15.2); White Blood Count 7.4 K/mm3 (4.5-11.0)
[2017-06-08 07:39] LABS: BUN/Creatinine Ratio 14.66; Calcium 8.6 mg/dL (8.4-10.2); Chloride 95.7 mmol/L (98-107); Potassium 4.4 mmol/L (3.6-5.0)
[2017-06-08] MEDS ORDERED: NEO SYNEPHRINE/NS Syringe(OR USE) IV ONE (09:00)
[2017-06-08] MEDS ORDERED: ZOFRAN ONE (09:34)
[2017-06-08] MEDS ORDERED: DECADRON ONE (09:34)
[2017-06-08] MEDS ORDERED: ePHEDrine SULFATE ONE (09:58)
[2017-06-08] MEDS ORDERED: NACL 0.9% IR ONE ×2 (10:03→10:05)
[2017-06-08] MEDS ORDERED: NACL 0.9% 1000 ML 1,000 ML ONE (11:21)
--- NOTE | 2017-06-08 11:39 | Short Stay Summary ---
Short Stay Documentation Date of service: 06/08/17 Narrative H&P: See H&P - History H&P: obtained from office - Allergies and Medications Current Medications: Allergies bismuth subsalicylate Allergy (Verified 06/07/17 11:27) Vomiting STATES HE HAS THIS REACTION TO ALL NARCOTICS HE HAS TRIED castor oil Allergy (Verified 06/07/17 11:27) Vomiting oxycodone HCl [From Percocet] Allergy (Verified 06/07/17 11:27) Dizziness "MAKES ME CRAZY" meperidine HCl [From Demerol] Adverse Reaction (Verified 06/07/17 11:27) COMBATIVENESS morphine Adverse Reaction (Verified 06/07/17 11:27) Unknown Confusion propoxyphene napsylate [From Darvocet-N] Adverse Reaction (Verified 06/07/17 11: 27) Dizziness "MAKES ME CRAZY" NARCOTICS Adverse Reaction (Uncoded 06/07/17 11:27) COMBATIVENESS STATES HE HAS HAD THIS REACTION TO ALL NARCOTICS HE HAS TRIED Home Medications Medication Instructions Recorded Confirmed Last Taken Type Dorzolamide/Timolol/Pf [Cosopt Pf 2 drop INTRAOCULA Q12HR MDD 2 gtts 05/22/1606/07/17 History Eye Drops] Empagliflozin [Jardiance] 25 mg PO DAILY MDD 25mg 05/22/16 06/07/17 06/07/17 History B12/Levomefolate Calcium/B-6 1 tab PO DAILY #30 tablet 08/26/16 06/07/17 Rx [Foltx Tablet] Clopidogrel [Plavix] 75 mg PO QDAY #30 tablet 08/26/16 06/07/17 05/01/17 08:00 Rx Insulin Glargine [Lantus VIAL] 25 units SUB-Q QHS #10 units 08/26/16 06/07/17 Rx Lisinopril [Zestril TAB] 40 mg PO QDAY #30 tablet 08/26/16 06/07/17 06/07/17 Rx Metoprolol Xl [Metoprolol 50 mg PO QDAY 30 Days 08/26/16 06/07/17 04/30/17 08: 00 Rx SUCCINATE ER TAB] Nitroglycerin [place] [Nitromist] 0.4 mg INHALATION PRN PRN #30 08/26/16 06/07/17 05/01/16 16:00 Rx bottle 0.4mg Pregabalin [Lyrica] 100 mg PO DAILY #60 capsule 08/26/16 06/07/17 06/07/17 Rx Dabigatran [Pradaxa] 75 mg PO BID MDD 75mg 01/24/17 06/07/17 06/07/17 History Acetaminophen [Acetaminophen TAB] 650 mg PO Q4H PRN #30 tablet 02/02/1704/30/17 23:00 Rx 650mg AtorvaSTATin [Lipitor] 40 mg PO QHS tablet 05/26/17 06/07/17 06/07/17 Rx Clopidogrel [Plavix] 75 mg PO QDAY tablet 05/26/17 06/07/17 06/07/17 Rx HYDROcodone/APAP 5-325 [[place] 2 each PO Q6H PRN #30 tablet 05/26/17 06/07/17 Rx 5-325 mg TAB] Metoprolol Xl [Metoprolol 50 mg PO QDAY tablet 05/26/17 06/07/17 06/07/17 Rx SUCCINATE ER TAB] Active Medications Famotidine (Pepcid) 20 mg PO PREOP NR Stop: 06/08/17 23:45 Last Admin: 06/08/17 06:55 Dose: 20 mg Cefazolin Sodium (Ancef/Sterile Water 2 Gm/20 Ml) 2 gm in 20 mls @ 80 mls/hr IV PREOP NR PRN Reason: Protocol Stop: 06/08/17 20:00 Sodium Chloride (Nacl 0.9% 1000 Ml) 1,000 mls @ 42 mls/hr IV DIRECT MARQUEZ Last Admin: 06/08/17 07:15 Dose: 42 mls/hr Insulin Human Regular (Novolin R) 3 units IV ONCE NR Stop: 06/08/17 15:00 Last Admin: 06/08/17 07:38 Dose: 3 units - Brief post op/procedure progress note Date of procedure: 06/08/17 Pre-op diagnosis: Nonhealing Left Groin Wound and Left Calf Hematoma Post-op diagnosis: same Procedure: 1. Evacuation of Left Groin Hematoma with Excisional Debridement of Skin and Muscle and Soft Tissue (Wound Measures 14.0 x 5.0 x 3.0 cm) 2. Sartorius Flap Coverage of Left Femoropopliteal Bypass 3. Wound VAC Placement Left Groin 4. Incision and Drainage of Left Calf Hematoma 5. Wound VAC Placement Left Calf (Wound Measure 6.0 x 1.0 x 1.0 cm) Anesthesia: DARIUSZ Surgeon: CALVIN RODRIGUEZ Casualty Claim Adjuster: SANDY ASTUDILLO Estimated blood loss: minimal Pathology: list (Left Groin Soft tissue and hematoma) Specimen disposition: to lab Condition: stable - Disposition Condition at discharge: Good Disposition: [id number]/TX-[id number] IN REHAB FACILITY Short Stay Discharge Plan Activity: no restrictions Wound: per wound nurse instructions (With Wound vac at Rehab Facility) Follow up with: CALVIN RODRIGUEZ MD [Staff Physician] - 14 Days Prescriptions: HYDROcodone/APAP 5-325 [[place] 5-325 mg TAB] 2 each PO Q6H PRN #30 tablet PRN Reason: Pain, Moderate (4-6)
[2017-06-08] MEDS ORDERED: TORADOL ONE (11:46)
[2017-06-08] MEDS ORDERED: TORADOL IV PRN (12:00)
--- NOTE | 2017-06-08 12:05 | Operative Report ---
Operative Report Operative Report: Date of Procedure: 06/08/2017 Pre-operative Diagnosis: Nonhealing Left Groin Wound and Left Calf Post Operative Hematoma Post-operative Diagnosis: Same Procedure(s): 1. Evacuation of Left Groin Hematoma with Excisional Debridement of Skin and Muscle and Soft Tissue (Wound Measures 14.0 x 5.0 x 3.0 cm) 2. Sartorius Flap Coverage of Left Femoropopliteal Bypass 3. Wound VAC Placement Left Groin 4. Incision and Drainage of Left Calf Hematoma 5. Wound VAC Placement Left Calf (Wound Measure 6.0 x 1.0 x 1.0 cm) Surgeon: Elias Meza M.D. Bottom Bleacher: Zeke Nye PA-C Anesthesia: Gen. endotracheal anesthesia EBL: Minimal Counts: Correct Complications: None Condition: Stable Findings: Left groin wound debrided to healthy tissue. After evacuating hematoma and the graft was exposed in the groin. There was a palpable pulse in the graft without evidence of bleeding. Graft was adequately covered with the [place] Flap. Specimen: Skin muscle and soft tissue of left groin sent to pathology. 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 He presented to the office with dehiscence of his left groin wound and a visible hematoma requiring evacuation in the operating room as well as debridement of the groin. He was given the risks, benefits, and alternative procedures and consented to procedure. Description of Procedure: The patient was brought to the operating room and laid in supine position. After general endotracheal anesthesia was achieved his left groin was prepped and draped in normal sterile fashion. A template was then used to sharply excise necrotic skin at the distal portion of the groin wound. Significant amount of hematoma was encountered and was evacuated. Upon evacuating the hematoma the graft was easily identified in the wound. The suture line was well incorporated and there was no evidence of bleeding from the graft. I used pulse lavage to copiously irrigate the wound. Further necrotic tissue within normal sharply debrided with curved [place]. Most was clean and then mobilized the sartorius muscle and divided at the anterior superior iliac spine and then mobilize it over the graft. I secured it in position using 2-0 Vicryl as interrupted fashion. Once the muscle was secured then sterilely placed a wound VAC and used a Y connector to connected to his current VAC. After pulling down the dressings are noted a bulky dressing on his calf which are removed and although the wound was intact and was necrotic skin at the age and what appeared to be dark blood draining from the wound. I then prepped the patient' s cath in normal sterile fashion and remove the arpit. Upon removing the arpit there was liquefied hematoma as well as some organized hematoma that was evacuated. I copiously irrigated the wound. I was able to identify the bypass graft at the proximal portion of the incision so I reclosed the proximal half of the incision using 2-0 Prolene in interrupted vertical mattress fashion. Once this was closer then placed exteriorly that was able to be bridged to the current wound VAC on his TMA wound. The foot was then wrapped with a Kerlix. I removed arpit from his thigh incisions and then dressed this with gauze and tape. The patient tolerated the procedure well. All the sponge, needle, and isthmic counts were correct. The patient was taken to the recovery area in stable condition.
[2017-06-08 16:59] VITALS: BP 109/59
== END 2017-06-08 14:25 ==
LOC: OR 06:07
PROVIDERS: ATTEND Surgery Vascular Surgery
DX: T81.89XA Other complications of procedures, not elsewhere classified, initial encounter (principal); L76.32 Postprocedural hematoma of skin and subcutaneous tissue following other procedure; E11.40 Type 2 diabetes mellitus with diabetic neuropathy, unspecified; I11.0 Hypertensive heart disease with heart failure; I50.9 Heart failure, unspecified; I70.248 Atherosclerosis of native arteries of left leg with ulceration of other part of lower leg; I25.10 Atherosclerotic heart disease of native coronary artery without angina pectoris; D64.9 Anemia, unspecified; Z88.5 Allergy status to narcotic agent; Z88.8 Allergy status to other drugs, medicaments and biological substances; Z91.09 Other allergy status, other than to drugs and biological substances; Z79.4 Long term (current) use of insulin; Z79.899 Other long term (current) drug therapy; Z79.01 Long term (current) use of anticoagulants; Z89.422 Acquired absence of other left toe(s); Z87.442 Personal history of urinary calculi; Z96.611 Presence of right artificial shoulder joint; Z98.62 Peripheral vascular angioplasty status; Z98.890 Other specified postprocedural states; Z87.891 Personal history of nicotine dependence; Z72.89 Other problems related to lifestyle; Z95.1 Presence of aortocoronary bypass graft; Z95.5 Presence of coronary angioplasty implant and graft; Z86.718 Personal history of other venous thrombosis and embolism; Z86.79 Personal history of other diseases of the circulatory system; Z83.3 Family history of diabetes mellitus; Y83.8 Other surgical procedures as the cause of abnormal reaction of the patient, or of later complication, without mention of misadventure at the time of the procedure
CPT/HCPCS: 10140; 11043; 11046; 15734; 36415; 80048; 82962; 85025; 88304; A4217; J0690; J1100; J1885; J2370; J2405; J2704; J7030; J1815; J3010

== ENCOUNTER 2017-06-12 17:52 | Inpatient (IN) | payer MEDICARE, OTHER ==
[2017-06-12] MEDS ORDERED: NACL 0.9% 500 ML 500 ML IV ONE ×5 (18:01→20:59)
[2017-06-12] MEDS ORDERED: ZOSYN/NS 4.5GM/100ML 4.5 GM/100 ML VIAL IV ONE (18:18)
[2017-06-12] MEDS ORDERED: VANCOMYCIN VIAL IV ONE (18:18)
--- NOTE | 2017-06-12 18:20 | Emergency Department Report ---
ED General Adult HPI - General Chief complaint: Extremity Injury, Lower Stated complaint: WOUND VAC BLEEDING/AMS Time Seen by Provider: 06/12/17 18:15 Source: EMS (verbal report received from EMS.ems notes not available at time of chart dictation), RN notes reviewed, old records reviewed Mode of arrival: Stretcher Limitations: Altered Mental Status - History of Present Illness Initial comments: This is a 76-year-old male. He is previously unknown to me. His vascular surgeon is Dr. Elias Meza. His primary care doctor is Dr. Elias Hernandez. Patient has a past medical history of peripheral artery disease, recently status post multiple vascular surgeries, including evacuation of left groin hematoma with skin debridement, sartorius flap coverage of left femoropopliteal bypass, wound VAC placement left groin, incision and drainage of left calf hematoma, and wound VAC placement of left calf. Patient was admitted to the vascular surgery service last month, June 08. The patient is brought to the hospital today for bleeding from his left lower extremity. Patient also known to have a past medical history of diabetes, congestive heart failure, kidney stones. His enclosed care home documentation indicates that he is currently a DO NOT RESUSCITATE, DO NOT INTUBATE. The bleeding is constant. It apparently does not have any exacerbating factors. The patient is altered, and is not able to provide additional history. Patient found to be hypotensive, with a blood pressure in the 60s, and febrile to 102 rectally. Patient started along the sepsis pathway, given his history of congestive heart failure, he will be given normal saline in 500 mL aliquots, INSTEAD of the typical 30 mL/kg bolus. He had a left-sided external jugular 18-gauge IV placed by myself without difficulty, and will be started on vancomycin and Zosyn. Case was discussed with his vascular surgeon, Dr. Meza, and Dr. Meza indicated that his group would follow as a consult and see the patient in the morning. Patient is currently taking systemic anticoagulation, pradaxa, and this facility does not have a reversal agent for this particular anticoagulant. In addition, medications include Plavix. Dialysis candidate given sepsis, hypotension, fever , hypercoagulable state. Currently, blood pressure in the 120s/130s. Laboratory studies are pending. Patient will require admission for hypotension , systemic inflammatory response syndrome, postoperative bleeding. -: unknown Location: left, lower extremity Consistency: constant Improves with: none Worsens with: none Associated Symptoms: weakness - Related Data Home Medications Medication Instructions Recorded Confirmed Last Taken Dorzolamide/Timolol/Pf [Cosopt Pf 2 drop INTRAOCULA Q12HR MDD 2 gtts 05/22/1606/07/17 Eye Drops] Empagliflozin [Jardiance] 25 mg PO DAILY MDD 25mg 05/22/16 06/12/17 06/07/17 Dabigatran [Pradaxa] 75 mg PO BID MDD 75mg 01/24/17 06/12/17 06/07/17 Ascorbic Acid [Vitamin C] 500 mg PO BID 06/12/17 06/12/17 Unknown Cephalexin [Keflex] 500 mg PO QDAY 06/12/17 06/12/17 Unknown Insulin Aspart Prot/Aspart(Nf) See Protocol SC QDAY 06/12/17 06/12/17 Unknown [NovoLOG Mix 70/30 VIAL] Nitroglycerin [Nitrostat] 0.4 mg PO PRN PRN 06/12/17 06/12/17 Unknown Polyethylene Glycol 3350 [Miralax 17 gm PO QDAY PRN 06/12/17 06/12/17 Unknown 3350] Zinc Sulfate [Zinc Sulfate] 220 mg PO QDAY 06/12/17 06/12/17 Unknown Previous Rx's Medication Instructions Recorded Last Taken Type B12/Levomefolate Calcium/B-6 1 tab PO DAILY #30 tablet 08/26/16 06/07/17 Rx [Foltx Tablet] Lisinopril [Zestril TAB] 40 mg PO QDAY #30 tablet 08/26/16 06/07/17 Rx Pregabalin [Lyrica] 100 mg PO DAILY #60 capsule 08/26/16 06/07/17 Rx Acetaminophen [Acetaminophen TAB] 650 mg PO Q4H PRN #30 tablet 02/02/17 23:00 Rx 650mg Clopidogrel [Plavix] 75 mg PO QDAY tablet 05/26/17 06/07/17 Rx Metoprolol Xl [Metoprolol 50 mg PO QDAY tablet 05/26/17 06/07/17 Rx SUCCINATE ER TAB] HYDROcodone/APAP 5-325 [[place] 2 each PO Q6H PRN #30 tablet 06/08/17 Unknown Rx 5-325 mg TAB] Allergies Allergy/AdvReac Type Severity Reaction Status Date / Time bismuth subsalicylate Allergy Vomiting Verified 06/07/17 11:27 castor oil Allergy Vomiting Verified 06/07/17 11:27 oxycodone HCl [From Percocet] Allergy Dizziness Verified 06/07/17 11:27 meperidine HCl [From Demerol] AdvReac COMBATIVENE Verified 06/07/17 11:27 SS morphine AdvReac Altered Verified 06/14/17 21:44 mental status propoxyphene napsylate AdvReac Dizziness Verified 06/07/17 11:27 [From Darvocet-N] NARCOTICS AdvReac COMBATIVENE Uncoded 06/07/17 11:27 SS ED Review of Systems ROS: Stated complaint: WOUND VAC BLEEDING/AMS Other details as noted in HPI Comment: Unobtainable due to pts medical conditions ED Past Medical Hx - Past Medical History Hx Hypertension: Yes Hx Congestive Heart Failure: Yes Hx Diabetes: Yes Hx Deep Vein Thrombosis: Yes Hx Kidney Stones: Yes Hx HIV: No - Surgical History Hx Coronary Stent: Yes (2002) Hx Open Heart Surgery: Yes (CABG 2004) Additional Surgical History: left foot surgery - Social History Smoking Status: Former Smoker - Medications Home Medications: Home Medications Medication Instructions Recorded Confirmed Last Taken Type Dorzolamide/Timolol/Pf [Cosopt Pf 2 drop INTRAOCULA Q12HR MDD 2 gtts 05/22/1606/07/17 History Eye Drops] Empagliflozin [Jardiance] 25 mg PO DAILY MDD 25mg 05/22/16 06/12/17 06/07/17 History B12/Levomefolate Calcium/B-6 1 tab PO DAILY #30 tablet 08/26/16 06/12/17 Rx [Foltx Tablet] Lisinopril [Zestril TAB] 40 mg PO QDAY #30 tablet 08/26/16 06/12/17 06/07/17 Rx Pregabalin [Lyrica] 100 mg PO DAILY #60 capsule 08/26/16 06/12/17 06/07/17 Rx Dabigatran [Pradaxa] 75 mg PO BID MDD 75mg 01/24/17 06/12/17 06/07/17 History Acetaminophen [Acetaminophen TAB] 650 mg PO Q4H PRN #30 tablet 0304/30/17 23:00 Rx 650mg Clopidogrel [Plavix] 75 mg PO QDAY tablet 05/26/17 06/12/17 06/07/17 Rx Metoprolol Xl [Metoprolol 50 mg PO QDAY tablet 05/26/17 06/12/17 06/07/17 Rx SUCCINATE ER TAB] HYDROcodone/APAP 5-325 [[place] 2 each PO Q6H PRN #30 tablet 06/08/17 06/12/17 Unknown Rx 5-325 mg TAB] Ascorbic Acid [Vitamin C] 500 mg PO BID 06/12/17 06/12/17 Unknown History Cephalexin [Keflex] 500 mg PO QDAY 06/12/17 06/12/17 Unknown History Insulin Aspart Prot/Aspart(Nf) See Protocol SC QDAY 06/12/17 06/12/17 Unknown History [NovoLOG Mix 70/30 VIAL] Nitroglycerin [Nitrostat] 0.4 mg PO PRN PRN 06/12/17 06/12/17 Unknown History Polyethylene Glycol 3350 [Miralax 17 gm PO QDAY PRN 06/12/17 06/12/17 Unknown History 3350] Zinc Sulfate [Zinc Sulfate] 220 mg PO QDAY 06/12/17 06/12/17 Unknown History ED Physical Exam - General Limitations: Altered Mental Status General appearance: lethargic - Head Head exam: Present: atraumatic, normocephalic - Eye Eye exam: Present: normal appearance - ENT ENT exam: Present: mucous membranes dry - Neck Neck exam: Present: normal inspection, full ROM. Absent: tenderness, meningismus - Respiratory Respiratory exam: Present: normal lung sounds bilaterally. Absent: respiratory distress, wheezes, rales, rhonchi, stridor, chest wall tenderness, accessory muscle use, decreased breath sounds, prolonged expiratory - Cardiovascular Cardiovascular Exam: Present: normal rhythm, tachycardia, normal heart sounds. Absent: systolic murmur, diastolic murmur, rubs, gallop - GI/Abdominal GI/Abdominal exam: Present: soft, normal bowel sounds, other (wound VAC is noted in the left inguinal region, there is no obvious redness, pus or streaking , there is no obvious bleeding). 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 No obvious redness, pus or streaking. There is no crepitus.). Absent: calf tenderness - Back Exam Back exam: Present: paraspinal tenderness - Neurological Exam Neurological exam: Present: altered - Psychiatric Psychiatric exam: Present: flat affect - Skin Skin exam: Present: warm, dry, intact, normal color. Absent: rash ED Course Vital Signs 06/12/17 06/12/17 06/12/17 18:30 19:11 19:33 Temperature 102 F H Pulse Rate 74 98 H Respiratory 16 16 Rate Blood Pressure Blood Pressure 99/74 97/48 [Left] O2 Sat by Pulse 95 94 Oximetry 06/12/17 06/12/17 06/12/17 19:36 20:16 20:21 Temperature 98.8 F Pulse Rate 94 H 94 H Respiratory 16 16 Rate Blood Pressure Blood Pressure 98/45 112/46 [Left] O2 Sat by Pulse 99 95 Oximetry 06/12/17 06/12/17 06/12/17 20:31 20:33 20:34 Temperature Pulse Rate 80 101 H Respiratory 18 16 17 Rate Blood Pressure 100/39 Blood Pressure 98/60 [Left] O2 Sat by Pulse 98 89 Oximetry 06/12/17 06/12/17 06/12/17 20:40 20:45 20:50 Temperature Pulse Rate 100 H 100 H 102 H Respiratory 16 16 15 Rate Blood Pressure 93/43 88/62 Blood Pressure 100/39 [Left] O2 Sat by Pulse Oximetry 06/12/17 06/12/17 06/12/17 20:56 21:00 21:10 Temperature Pulse Rate 95 H 103 H 103 H Respiratory 16 12 14 Rate Blood Pressure 99/49 94/47 Blood Pressure 107/35 [Left] O2 Sat by Pulse 94 Oximetry 06/12/17 06/12/17 06/12/17 21:20 21:30 21:40 Temperature Pulse Rate 102 H 103 H 101 H Respiratory 14 20 20 Rate Blood Pressure 111/39 89/45 82/45 Blood Pressure 94/47 [Left] O2 Sat by Pulse 97 100 Oximetry 06/12/17 06/12/1706/12/17 21:50 22:00 22:10 Temperature Pulse Rate 102 H 102 H 106 H Respiratory 20 20 17 Rate Blood Pressure 78/48 90/62 90/56 Blood Pressure [Left] O2 Sat by Pulse 70 L Oximetry 06/12/17 06/12/17 06/12/17 22:20 22:30 22:40 Temperature Pulse Rate 111 H 106 H 106 H Respiratory 22 29 H 18 Rate Blood Pressure 104/55 104/55 104/55 Blood Pressure [Left] O2 Sat by Pulse 49 L 84 Oximetry 06/12/17 06/12/17 06/12/17 22:50 23:00 23:10 Temperature Pulse Rate 105 H 101 H 108 H Respiratory 21 14 17 Rate Blood Pressure 89/42 94/47 115/54 Blood Pressure [Left] O2 Sat by Pulse 9 L Oximetry 06/12/17 06/12/17 06/12/17 23:20 23:23 23:30 Temperature Pulse Rate 112 H 74 113 H Respiratory 20 16 24 Rate Blood Pressure 122/57 112/43 Blood Pressure 115/54 [Left] O2 Sat by Pulse 95 Oximetry 06/12/17 06/12/17 06/13/17 23:40 23:50 00:00 Temperature Pulse Rate 111 H 111 H 115 H Respiratory 23 24 23 Rate Blood Pressure 95/46 99/38 99/45 Blood Pressure [Left] O2 Sat by Pulse Oximetry 06/13/17 06/13/17 06/13/17 00:10 00:20 00:27 Temperature Pulse Rate 107 H 113 H 110 H Respiratory 23 24 16 Rate Blood Pressure 99/67 116/50 Blood Pressure 114/60 [Left] O2 Sat by Pulse 97 Oximetry 06/13/17 06/13/17 06/13/17 00:30 00:40 00:50 Temperature Pulse Rate 114 H 115 H 114 H Respiratory 24 24 12 Rate Blood Pressure 105/47 113/44 109/45 Blood Pressure [Left] O2 Sat by Pulse Oximetry 06/13/17 06/13/17 06/13/17 01:00 01:10 01:20 Temperature Pulse Rate 114 H 114 H 114 H Respiratory 16 23 20 Rate Blood Pressure 95/53 98/47 86/46 Blood Pressure [Left] O2 Sat by Pulse 88 76 L Oximetry 06/13/17 06/13/17 06/13/17 01:30 01:40 01:50 Temperature Pulse Rate 114 H 114 H 125 H Respiratory 21 24 23 Rate Blood Pressure 88/47 91/48 119/57 Blood Pressure [Left] O2 Sat by Pulse 100 Oximetry 06/13/17 06/13/17 06/13/17 02:00 02:01 02:10 Temperature Pulse Rate 123 H 126 H 123 H Respiratory 23 18 22 Rate Blood Pressure 109/44 98/44 Blood Pressure 119/57 [Left] O2 Sat by Pulse Oximetry 06/13/17 06/13/17 06/13/17 02:20 02:30 02:40 Temperature Pulse Rate 123 H 120 H 123 H Respiratory 23 24 24 Rate Blood Pressure 94/44 105/46 92/41 Blood Pressure [Left] O2 Sat by Pulse 98 100 100 Oximetry 06/13/17 06/13/17 06/13/17 02:50 03:00 03:10 Temperature Pulse Rate 122 H 120 H 121 H Respiratory 24 23 21 Rate Blood Pressure 95/44 95/46 97/41 Blood Pressure [Left] O2 Sat by Pulse 100 100 100 Oximetry 06/13/17 06/13/17 06/13/17 03:20 03:30 03:40 Temperature Pulse Rate 122 H 122 H 121 H Respiratory 22 21 21 Rate Blood Pressure 114/46 105/48 106/50 Blood Pressure [Left] O2 Sat by Pulse 100 100 Oximetry 06/13/17 06/13/17 06/13/17 03:43 03:50 04:00 Temperature 99.1 F Pulse Rate 121 H 120 H 120 H Respiratory 20 22 Rate Blood Pressure 117/46 122/51 Blood Pressure [Left] O2 Sat by Pulse 100 Oximetry 06/13/17 06/13/17 06/13/17 04:10 04:20 04:30 Temperature Pulse Rate 121 H 124 H 123 H Respiratory 24 19 18 Rate Blood Pressure 117/45 137/59 127/55 Blood Pressure [Left] O2 Sat by Pulse 100 100 Oximetry 06/13/17 06/13/17 06/13/17 04:40 05:00 05:07 Temperature 99.1 F Pulse Rate 123 H 123 H Respiratory 23 22 Rate Blood Pressure 116/56 129/50 Blood Pressure [Left] O2 Sat by Pulse 83 L 100 Oximetry 06/13/17 06/13/17 06/13/17 05:15 05:30 05:45 Temperature Pulse Rate 123 H 122 H 123 H Respiratory Rate Blood Pressure 129/59 121/56 109/53 Blood Pressure [Left] O2 Sat by Pulse 100 100 100 Oximetry 06/13/17 06/13/17 06/13/17 06:00 06:05 06:10 Temperature Pulse Rate 108 H 103 H 120 H Respiratory Rate Blood Pressure 79/42 81/40 119/56 Blood Pressure [Left] O2 Sat by Pulse 100 100 98 Oximetry 06/13/17 06/13/17 06/13/17 06:14 06:15 06:20 Temperature 99.5 F Pulse Rate 111 H 123 H Respiratory 20 Rate Blood Pressure 99/42 125/55 Blood Pressure [Left] O2 Sat by Pulse 73 L 100 Oximetry 06/13/17 06/13/17 06/13/17 06:25 06:30 06:36 Temperature Pulse Rate 126 H 127 H 126 H Respiratory 21 22 20 Rate Blood Pressure 131/63 132/59 142/57 Blood Pressure [Left] O2 Sat by Pulse 100 92 Oximetry 06/13/17 06/13/17 06/13/17 06:40 06:46 06:50 Temperature Pulse Rate 124 H 126 H 124 H Respiratory 25 H 21 22 Rate Blood Pressure 142/57 130/70 134/66 Blood Pressure [Left] O2 Sat by Pulse 75 L Oximetry 06/13/17 06/13/17 06/13/17 06:56 07:00 07:16 Temperature Pulse Rate 124 H 127 H 125 H Respiratory 22 19 16 Rate Blood Pressure 131/57 134/53 136/71 Blood Pressure [Left] O2 Sat by Pulse Oximetry 06/13/17 06/13/17 06/13/17 07:18 07:30 07:45 Temperature 99.1 F Pulse Rate 132 H 131 H Respiratory 17 20 Rate Blood Pressure 135/57 117/62 Blood Pressure [Left] O2 Sat by Pulse Oximetry 06/13/17 06/13/17 06/13/17 08:00 08:15 08:21 Temperature 99.1 F Pulse Rate 127 H 126 H Respiratory 18 26 H Rate Blood Pressure 110/50 108/51 Blood Pressure [Left] O2 Sat by Pulse 99 98 Oximetry 06/13/17 06/13/17 06/13/17 08:30 08:45 09:00 Temperature Pulse Rate 127 H 125 H 125 H Respiratory 27 H 25 H 12 Rate Blood Pressure 118/44 126/46 126/52 Blood Pressure [Left] O2 Sat by Pulse 78 L Oximetry 06/13/17 06/13/17 06/13/17 09:16 09:30 09:45 Temperature 99.1 F Pulse Rate 126 H 129 H 130 H Respiratory 20 32 H 28 H Rate Blood Pressure 113/53 119/45 109/39 Blood Pressure [Left] O2 Sat by Pulse 94 99 63 L Oximetry 06/13/17 09:46 Temperature 99.1 F Pulse Rate Respiratory Rate Blood Pressure Blood Pressure [Left] O2 Sat by Pulse Oximetry - Reevaluation(s) Reevaluation #1: 06/12/17 19:48 elevated lactic acid appreciated. Blood pressure still in the high 90s/low 100s. Breath sounds clear. Additional 500 mL of normal saline. Case presented to the Hospital physician, Dr. Ferreira. He accepts the patient. Hyponatremia appreciated, this is most likely hypovolemic hyponatremia. - EJ/Peripheral Line Neck L Time Out Performed: Yes Indications: multiple IV sites needed Skin Cleansed in Sterile Fashion: Yes Size: 18 Dressing Placed: Tegaderm Patient Tolerated Procedure: well ED Medical Decision Making - Lab Data Result diagrams: 06/18/17 05:00 06/18/17 05:00 Vital Signs 06/12/17 06/12/17 06/12/17 18:30 19:11 19:33 Temperature 102 F H Pulse Rate 74 98 H Pulse Rate [ From Monitor] Respiratory 16 16 Rate Respiratory Rate [Left Anterior Leg] Respiratory Rate [Left Foot ] Blood Pressure Blood Pressure 99/74 97/48 [Left] O2 Sat by Pulse 95 94 Oximetry 06/12/17 06/12/17 06/12/17 19:36 20:16 20:21 Temperature 98.8 F Pulse Rate 94 H 94 H Pulse Rate [ From Monitor] Respiratory 16 16 Rate Respiratory Rate [Left Anterior Leg] Respiratory Rate [Left Foot ] Blood Pressure Blood Pressure 98/45 112/46 [Left] O2 Sat by Pulse 99 95 Oximetry 06/12/17 06/12/17 06/12/17 20:31 20:33 20:34 Temperature Pulse Rate 80 101 H Pulse Rate [ From Monitor] Respiratory 18 16 17 Rate Respiratory Rate [Left Anterior Leg] Respiratory Rate [Left Foot ] Blood Pressure 100/39 Blood Pressure 98/60 [Left] O2 Sat by Pulse 98 89 Oximetry 06/12/17 06/12/17 06/12/17 20:40 20:45 20:50 Temperature Pulse Rate 100 H 100 H 102 H Pulse Rate [ From Monitor] Respiratory 16 16 15 Rate Respiratory Rate [Left Anterior Leg] Respiratory Rate [Left Foot ] Blood Pressure 93/43 88/62 Blood Pressure 100/39 [Left] O2 Sat by Pulse Oximetry 06/12/17 06/12/17 06/12/17 20:56 21:00 21:10 Temperature Pulse Rate 95 H 103 H 103 H Pulse Rate [ From Monitor] Respiratory 16 12 14 Rate Respiratory Rate [Left Anterior Leg] Respiratory Rate [Left Foot ] Blood Pressure 99/49 94/47 Blood Pressure 107/35 [Left] O2 Sat by Pulse 94 Oximetry 06/12/17 06/12/17 06/12/17 21:20 21:30 21:40 Temperature Pulse Rate 102 H 103 H 101 H Pulse Rate [ From Monitor] Respiratory 14 20 20 Rate Respiratory Rate [Left Anterior Leg] Respiratory Rate [Left Foot ] Blood Pressure 111/39 89/45 82/45 Blood Pressure 94/47 [Left] O2 Sat by Pulse 97 100 Oximetry 06/12/17 06/12/17 06/12/17 21:50 22:00 22:10 Temperature Pulse Rate 102 H 102 H 106 H Pulse Rate [ From Monitor] Respiratory 20 20 17 Rate Respiratory Rate [Left Anterior Leg] Respiratory Rate [Left Foot ] Blood Pressure 78/48 90/62 90/56 Blood Pressure [Left] O2 Sat by Pulse 70 L Oximetry 06/12/17 06/12/17 06/12/17 22:20 22:30 22:40 Temperature Pulse Rate 111 H 106 H 106 H Pulse Rate [ From Monitor] Respiratory 22 29 H 18 Rate Respiratory Rate [Left Anterior Leg] Respiratory Rate [Left Foot ] Blood Pressure 104/55 104/55 104/55 Blood Pressure [Left] O2 Sat by Pulse 49 L 84 Oximetry 06/12/17 06/12/17 06/12/17 22:50 23:00 23:10 Temperature Pulse Rate 105 H 101 H 108 H Pulse Rate [ From Monitor] Respiratory 21 14 17 Rate Respiratory Rate [Left Anterior Leg] Respiratory Rate [Left Foot ] Blood Pressure 89/42 94/47 115/54 Blood Pressure [Left] O2 Sat by Pulse 9 L Oximetry 06/12/17 06/12/17 06/12/17 23:20 23:23 23:30 Temperature Pulse Rate 112 H 74 113 H Pulse Rate [ From Monitor] Respiratory 20 16 24 Rate Respiratory Rate [Left Anterior Leg] Respiratory Rate [Left Foot ] Blood Pressure 122/57 112/43 Blood Pressure 115/54 [Left] O2 Sat by Pulse 95 Oximetry 06/12/17 06/12/17 06/13/17 23:40 23:50 00:00 Temperature Pulse Rate 111 H 111 H 115 H Pulse Rate [ From Monitor] Respiratory 23 24 23 Rate Respiratory Rate [Left Anterior Leg] Respiratory Rate [Left Foot ] Blood Pressure 95/46 99/38 99/45 Blood Pressure [Left] O2 Sat by Pulse Oximetry 06/13/17 06/13/17 06/13/17 00:10 00:20 00:27 Temperature Pulse Rate 107 H 113 H 110 H Pulse Rate [ From Monitor] Respiratory 23 24 16 Rate Respiratory Rate [Left Anterior Leg] Respiratory Rate [Left Foot ] Blood Pressure 99/67 116/50 Blood Pressure 114/60 [Left] O2 Sat by Pulse 97 Oximetry 06/13/17 06/13/17 06/13/17 00:30 00:40 00:50 Temperature Pulse Rate 114 H 115 H 114 H Pulse Rate [ From Monitor] Respiratory 24 24 12 Rate Respiratory Rate [Left Anterior Leg] Respiratory Rate [Left Foot ] Blood Pressure 105/47 113/44 109/45 Blood Pressure [Left] O2 Sat by Pulse Oximetry 06/13/17 06/13/17 06/13/17 01:00 01:10 01:20 Temperature Pulse Rate 114 H 114 H 114 H Pulse Rate [ From Monitor] Respiratory 16 23 20 Rate Respiratory Rate [Left Anterior Leg] Respiratory Rate [Left Foot ] Blood Pressure 95/53 98/47 86/46 Blood Pressure [Left] O2 Sat by Pulse 88 76 L Oximetry 06/13/17 06/13/17 06/13/17 01:30 01:40 01:50 Temperature Pulse Rate 114 H 114 H 125 H Pulse Rate [ From Monitor] Respiratory 21 24 23 Rate Respiratory Rate [Left Anterior Leg] Respiratory Rate [Left Foot ] Blood Pressure 88/47 91/48 119/57 Blood Pressure [Left] O2 Sat by Pulse 100 Oximetry 06/13/17 06/13/17 06/13/17 02:00 02:01 02:10 Temperature Pulse Rate 123 H 126 H 123 H Pulse Rate [ From Monitor] Respiratory 23 18 22 Rate Respiratory Rate [Left Anterior Leg] Respiratory Rate [Left Foot ] Blood Pressure 109/44 98/44 Blood Pressure 119/57 [Left] O2 Sat by Pulse Oximetry 06/13/17 06/13/17 06/13/17 02:20 02:30 02:40 Temperature Pulse Rate 123 H 120 H 123 H Pulse Rate [ From Monitor] Respiratory 23 24 24 Rate Respiratory Rate [Left Anterior Leg] Respiratory Rate [Left Foot ] Blood Pressure 94/44 105/46 92/41 Blood Pressure [Left] O2 Sat by Pulse 98 100 100 Oximetry 06/13/17 06/13/17 06/13/17 02:50 03:00 03:10 Temperature Pulse Rate 122 H 120 H 121 H Pulse Rate [ From Monitor] Respiratory 24 23 21 Rate Respiratory Rate [Left Anterior Leg] Respiratory Rate [Left Foot ] Blood Pressure 95/44 95/46 97/41 Blood Pressure [Left] O2 Sat by Pulse 100 100 100 Oximetry 06/13/17 06/13/17 06/13/17 03:20 03:30 03:40 Temperature Pulse Rate 122 H 122 H 121 H Pulse Rate [ From Monitor] Respiratory 22 21 21 Rate Respiratory Rate [Left Anterior Leg] Respiratory Rate [Left Foot ] Blood Pressure 114/46 105/48 106/50 Blood Pressure [Left] O2 Sat by Pulse 100 100 Oximetry 06/13/17 06/13/17 06/13/17 03:43 03:50 04:00 Temperature 99.1 F Pulse Rate 121 H 120 H 120 H Pulse Rate [ From Monitor] Respiratory 20 22 Rate Respiratory Rate [Left Anterior Leg] Respiratory Rate [Left Foot ] Blood Pressure 117/46 122/51 Blood Pressure [Left] O2 Sat by Pulse 100 Oximetry 06/13/17 06/13/17 06/13/17 04:10 04:20 04:30 Temperature Pulse Rate 121 H 124 H 123 H Pulse Rate [ From Monitor] Respiratory 24 19 18 Rate Respiratory Rate [Left Anterior Leg] Respiratory Rate [Left Foot ] Blood Pressure 117/45 137/59 127/55 Blood Pressure [Left] O2 Sat by Pulse 100 100 Oximetry 06/13/17 06/13/17 06/13/17 04:40 05:00 05:07 Temperature 99.1 F Pulse Rate 123 H 123 H Pulse Rate [ From Monitor] Respiratory 23 22 Rate Respiratory Rate [Left Anterior Leg] Respiratory Rate [Left Foot ] Blood Pressure 116/56 129/50 Blood Pressure [Left] O2 Sat by Pulse 83 L 100 Oximetry 06/13/17 06/13/17 06/13/17 05:15 05:30 05:45 Temperature Pulse Rate 123 H 122 H 123 H Pulse Rate [ From Monitor] Respiratory Rate Respiratory Rate [Left Anterior Leg] Respiratory Rate [Left Foot ] Blood Pressure 129/59 121/56 109/53 Blood Pressure [Left] O2 Sat by Pulse 100 100 100 Oximetry 06/13/17 06/13/17 06/13/17 06:00 06:05 06:10 Temperature Pulse Rate 108 H 103 H 120 H Pulse Rate [ From Monitor] Respiratory Rate Respiratory Rate [Left Anterior Leg] Respiratory Rate [Left Foot ] Blood Pressure 79/42 81/40 119/56 Blood Pressure [Left] O2 Sat by Pulse 100 100 98 Oximetry 06/13/17 06/13/17 06/13/17 06:14 06:15 06:20 Temperature 99.5 F Pulse Rate 111 H 123 H Pulse Rate [ From Monitor] Respiratory 20 Rate Respiratory Rate [Left Anterior Leg] Respiratory Rate [Left Foot ] Blood Pressure 99/42 125/55 Blood Pressure [Left] O2 Sat by Pulse 73 L 100 Oximetry 06/13/17 06/13/17 06/13/17 06:25 06:30 06:36 Temperature Pulse Rate 126 H 127 H 126 H Pulse Rate [ From Monitor] Respiratory 21 22 20 Rate Respiratory Rate [Left Anterior Leg] Respiratory Rate [Left Foot ] Blood Pressure 131/63 132/59 142/57 Blood Pressure [Left] O2 Sat by Pulse 100 92 Oximetry 06/13/17 06/13/17 06/13/17 06:40 06:46 06:50 Temperature Pulse Rate 124 H 126 H 124 H Pulse Rate [ From Monitor] Respiratory 25 H 21 22 Rate Respiratory Rate [Left Anterior Leg] Respiratory Rate [Left Foot ] Blood Pressure 142/57 130/70 134/66 Blood Pressure [Left] O2 Sat by Pulse 75 L Oximetry 06/13/17 06/13/17 06/13/17 06:56 07:00 07:16 Temperature Pulse Rate 124 H 127 H 125 H Pulse Rate [ From Monitor] Respiratory 22 19 16 Rate Respiratory Rate [Left Anterior Leg] Respiratory Rate [Left Foot ] Blood Pressure 131/57 134/53 136/71 Blood Pressure [Left] O2 Sat by Pulse Oximetry 06/13/17 06/13/17 06/13/17 07:18 07:30 07:45 Temperature 99.1 F Pulse Rate 132 H 131 H Pulse Rate [ From Monitor] Respiratory 17 20 Rate Respiratory Rate [Left Anterior Leg] Respiratory Rate [Left Foot ] Blood Pressure 135/57 117/62 Blood Pressure [Left] O2 Sat by Pulse Oximetry 06/13/17 06/13/17 06/13/17 08:00 08:15 08:21 Temperature 99.1 F Pulse Rate 127 H 126 H Pulse Rate [ From Monitor] Respiratory 18 26 H Rate Respiratory Rate [Left Anterior Leg] Respiratory Rate [Left Foot ] Blood Pressure 110/50 108/51 Blood Pressure [Left] O2 Sat by Pulse 99 98 Oximetry 06/13/17 06/13/17 06/13/17 08:30 08:45 09:00 Temperature Pulse Rate 127 H 125 H 125 H Pulse Rate [ From Monitor] Respiratory 27 H 25 H 12 Rate Respiratory Rate [Left Anterior Leg] Respiratory Rate [Left Foot ] Blood Pressure 118/44 126/46 126/52 Blood Pressure [Left] O2 Sat by Pulse 78 L Oximetry 06/13/17 06/13/17 06/13/17 09:16 09:30 09:45 Temperature 99.1 F Pulse Rate 126 H 129 H 130 H Pulse Rate [ From Monitor] Respiratory 20 32 H 28 H Rate Respiratory Rate [Left Anterior Leg] Respiratory Rate [Left Foot ] Blood Pressure 113/53 119/45 109/39 Blood Pressure [Left] O2 Sat by Pulse 94 99 63 L Oximetry 06/13/17 06/13/17 06/13/17 09:46 10:00 10:43 Temperature 99.1 F Pulse Rate 122 H 126 H Pulse Rate [ From Monitor] Respiratory 25 H Rate Respiratory Rate [Left Anterior Leg] Respiratory Rate [Left Foot ] Blood Pressure Blood Pressure [Left] O2 Sat by Pulse Oximetry 06/13/17 06/13/17 06/13/17 10:46 11:00 11:15 Temperature Pulse Rate 129 H 128 H 124 H Pulse Rate [ From Monitor] Respiratory 21 22 21 Rate Respiratory Rate [Left Anterior Leg] Respiratory Rate [Left Foot ] Blood Pressure 117/51 136/41 128/50 Blood Pressure [Left] O2 Sat by Pulse 36 L 80 L Oximetry 06/13/17 06/13/17 06/13/17 11:30 11:45 12:00 Temperature Pulse Rate 125 H 121 H 128 H Pulse Rate [ From Monitor] Respiratory 22 20 21 Rate Respiratory Rate [Left Anterior Leg] Respiratory Rate [Left Foot ] Blood Pressure 137/47 107/44 107/44 Blood Pressure [Left] O2 Sat by Pulse Oximetry 06/13/17 06/13/17 06/13/17 12:15 12:30 12:40 Temperature Pulse Rate 126 H 127 H 127 H Pulse Rate [ From Monitor] Respiratory 20 20 20 Rate Respiratory Rate [Left Anterior Leg] Respiratory Rate [Left Foot ] Blood Pressure 119/65 121/45 121/45 Blood Pressure [Left] O2 Sat by Pulse 33 L Oximetry 06/13/17 06/13/17 06/13/17 12:50 13:00 13:10 Temperature Pulse Rate 128 H 126 H 126 H Pulse Rate [ From Monitor] Respiratory 22 22 20 Rate Respiratory Rate [Left Anterior Leg] Respiratory Rate [Left Foot ] Blood Pressure 128/55 128/55 123/54 Blood Pressure [Left] O2 Sat by Pulse 61 L 95 Oximetry 06/13/17 06/13/17 06/13/17 13:20 13:30 13:40 Temperature Pulse Rate 126 H 122 H 125 H Pulse Rate [ From Monitor] Respiratory 18 18 18 Rate Respiratory Rate [Left Anterior Leg] Respiratory Rate [Left Foot ] Blood Pressure 120/45 135/56 135/56 Blood Pressure [Left] O2 Sat by Pulse Oximetry 06/13/17 06/13/17 06/13/17 13:50 14:00 14:10 Temperature Pulse Rate 123 H 124 H 124 H Pulse Rate [ From Monitor] Respiratory 20 20 21 Rate Respiratory Rate [Left Anterior Leg] Respiratory Rate [Left Foot ] Blood Pressure 114/43 118/49 118/49 Blood Pressure [Left] O2 Sat by Pulse Oximetry 06/13/17 06/13/17 06/13/17 14:20 14:30 14:40 Temperature Pulse Rate 123 H 126 H 125 H Pulse Rate [ From Monitor] Respiratory 17 27 H 21 Rate Respiratory Rate [Left Anterior Leg] Respiratory Rate [Left Foot ] Blood Pressure 114/46 113/56 118/49 Blood Pressure [Left] O2 Sat by Pulse 96 73 L Oximetry 06/13/17 06/13/17 06/13/17 14:50 15:00 15:10 Temperature Pulse Rate 127 H 125 H 125 H Pulse Rate [ From Monitor] Respiratory 21 17 22 Rate Respiratory Rate [Left Anterior Leg] Respiratory Rate [Left Foot ] Blood Pressure 115/58 127/58 127/58 Blood Pressure [Left] O2 Sat by Pulse 93 72 L Oximetry 06/13/17 06/13/17 06/13/17 15:20 15:30 15:40 Temperature Pulse Rate 124 H 127 H 127 H Pulse Rate [ From Monitor] Respiratory 16 19 18 Rate Respiratory Rate [Left Anterior Leg] Respiratory Rate [Left Foot ] Blood Pressure 125/49 118/45 118/45 Blood Pressure [Left] O2 Sat by Pulse 100 Oximetry 06/13/17 06/13/17 06/13/17 15:50 16:00 16:10 Temperature Pulse Rate 126 H 125 H 126 H Pulse Rate [ From Monitor] Respiratory 22 20 20 Rate Respiratory Rate [Left Anterior Leg] Respiratory Rate [Left Foot ] Blood Pressure 120/47 128/43 128/43 Blood Pressure [Left] O2 Sat by Pulse 100 71 L Oximetry 06/13/17 06/13/17 06/13/17 16:20 16:30 16:40 Temperature Pulse Rate 125 H 126 H 124 H Pulse Rate [ From Monitor] Respiratory 20 16 21 Rate Respiratory Rate [Left Anterior Leg] Respiratory Rate [Left Foot ] Blood Pressure 110/51 119/46 119/46 Blood Pressure [Left] O2 Sat by Pulse Oximetry 06/13/17 06/13/17 06/13/17 16:50 17:00 17:10 Temperature Pulse Rate 121 H 126 H 124 H Pulse Rate [ From Monitor] Respiratory 20 19 21 Rate Respiratory Rate [Left Anterior Leg] Respiratory Rate [Left Foot ] Blood Pressure 115/44 108/45 108/45 Blood Pressure [Left] O2 Sat by Pulse 100 100 100 Oximetry 06/13/17 06/13/17 06/13/17 17:20 17:30 17:40 Temperature Pulse Rate 124 H 124 H 123 H Pulse Rate [ From Monitor] Respiratory 21 20 22 Rate Respiratory Rate [Left Anterior Leg] Respiratory Rate [Left Foot ] Blood Pressure 106/47 108/47 108/47 Blood Pressure [Left] O2 Sat by Pulse 100 100 99 Oximetry 06/13/17 06/13/17 06/13/17 17:50 18:00 18:10 Temperature Pulse Rate 121 H 122 H 121 H Pulse Rate [ From Monitor] Respiratory 22 21 23 Rate Respiratory Rate [Left Anterior Leg] Respiratory Rate [Left Foot ] Blood Pressure 108/41 113/44 113/44 Blood Pressure [Left] O2 Sat by Pulse Oximetry 06/13/17 06/13/17 06/13/17 18:20 18:30 18:40 Temperature Pulse Rate 115 H 122 H 123 H Pulse Rate [ From Monitor] Respiratory 22 24 24 Rate Respiratory Rate [Left Anterior Leg] Respiratory Rate [Left Foot ] Blood Pressure 109/49 107/46 109/49 Blood Pressure [Left] O2 Sat by Pulse 94 Oximetry 06/13/17 06/13/17 06/13/17 18:50 19:00 19:10 Temperature Pulse Rate 121 H 122 H 121 H Pulse Rate [ From Monitor] Respiratory 28 H 22 21 Rate Respiratory Rate [Left Anterior Leg] Respiratory Rate [Left Foot ] Blood Pressure 111/53 112/48 111/53 Blood Pressure [Left] O2 Sat by Pulse 95 55 L Oximetry 06/13/17 06/13/17 06/13/17 19:20 19:30 19:40 Temperature Pulse Rate 120 H 103 H 122 H Pulse Rate [ From Monitor] Respiratory 21 22 22 Rate Respiratory Rate [Left Anterior Leg] Respiratory Rate [Left Foot ] Blood Pressure 111/45 103/41 103/41 Blood Pressure [Left] O2 Sat by Pulse Oximetry 06/13/17 06/13/17 06/13/17 19:50 20:00 20:10 Temperature 98.0 F Pulse Rate 121 H 104 H 107 H Pulse Rate [ From Monitor] Respiratory 20 24 22 Rate Respiratory Rate [Left Anterior Leg] Respiratory Rate [Left Foot ] Blood Pressure 102/46 98/45 98/45 Blood Pressure [Left] O2 Sat by Pulse Oximetry 06/13/17 06/13/17 06/13/17 20:20 20:30 20:41 Temperature Pulse Rate 107 H 122 H 120 H Pulse Rate [ From Monitor] Respiratory 19 19 20 Rate Respiratory Rate [Left Anterior Leg] Respiratory Rate [Left Foot ] Blood Pressure 106/46 Blood Pressure [Left] O2 Sat by Pulse Oximetry 06/13/17 06/13/17 06/13/17 20:51 21:00 21:11 Temperature Pulse Rate 122 H 103 H 124 H Pulse Rate [ From Monitor] Respiratory 21 21 17 Rate Respiratory Rate [Left Anterior Leg] Respiratory Rate [Left Foot ] Blood Pressure 106/46 103/48 103/48 Blood Pressure [Left] O2 Sat by Pulse 100 Oximetry 06/13/17 06/13/17 06/13/17 21:21 21:30 21:41 Temperature Pulse Rate 105 H 122 H 124 H Pulse Rate [ From Monitor] Respiratory 21 20 28 H Rate Respiratory Rate [Left Anterior Leg] Respiratory Rate [Left Foot ] Blood Pressure 102/51 113/52 113/52 Blood Pressure [Left] O2 Sat by Pulse 82 L Oximetry 06/13/17 06/13/17 06/13/17 21:51 22:00 22:11 Temperature Pulse Rate 113 H 124 H 122 H Pulse Rate [ From Monitor] Respiratory 22 22 21 Rate Respiratory Rate [Left Anterior Leg] Respiratory Rate [Left Foot ] Blood Pressure 106/45 108/42 108/42 Blood Pressure [Left] O2 Sat by Pulse Oximetry 06/13/17 06/13/17 06/13/17 22:21 22:30 22:41 Temperature Pulse Rate 108 H 119 H 113 H Pulse Rate [ From Monitor] Respiratory 21 20 21 Rate Respiratory Rate [Left Anterior Leg] Respiratory Rate [Left Foot ] Blood Pressure 112/50 104/51 104/51 Blood Pressure [Left] O2 Sat by Pulse Oximetry 06/13/17 06/13/17 06/13/17 22:51 23:00 23:11 Temperature Pulse Rate 113 H 124 H 104 H Pulse Rate [ From Monitor] Respiratory 22 18 22 Rate Respiratory Rate [Left Anterior Leg] Respiratory Rate [Left Foot ] Blood Pressure 104/46 105/44 105/44 Blood Pressure [Left] O2 Sat by Pulse Oximetry 06/13/17 06/13/17 06/13/17 23:21 23:25 23:30 Temperature Pulse Rate 125 H 105 H 113 H Pulse Rate [ From Monitor] Respiratory 19 22 19 Rate Respiratory Rate [Left Anterior Leg] Respiratory Rate [Left Foot ] Blood Pressure 108/50 105/44 113/47 Blood Pressure [Left] O2 Sat by Pulse 100 100 Oximetry 06/13/17 06/13/17 06/13/17 23:41 23:48 23:51 Temperature 99.1 F Pulse Rate 102 H 105 H Pulse Rate [ From Monitor] Respiratory 21 23 Rate Respiratory Rate [Left Anterior Leg] Respiratory Rate [Left Foot ] Blood Pressure 113/47 104/43 Blood Pressure [Left] O2 Sat by Pulse 100 100 Oximetry 06/14/17 06/14/17 06/14/17 00:00 00:11 00:21 Temperature Pulse Rate 121 H 128 H 126 H Pulse Rate [ 118 H From Monitor] Respiratory 31 H 21 19 Rate Respiratory Rate [Left Anterior Leg] Respiratory Rate [Left Foot ] Blood Pressure 117/53 117/53 115/50 Blood Pressure [Left] O2 Sat by Pulse 100 100 Oximetry 06/14/17 06/14/17 06/14/17 00:30 00:41 00:51 Temperature Pulse Rate 127 H 127 H 128 H Pulse Rate [ From Monitor] Respiratory 21 18 18 Rate Respiratory Rate [Left Anterior Leg] Respiratory Rate [Left Foot ] Blood Pressure 114/54 114/54 115/55 Blood Pressure [Left] O2 Sat by Pulse 100 75 L Oximetry 06/14/17 06/14/17 06/14/17 01:00 01:11 01:21 Temperature Pulse Rate 125 H 117 H 93 H Pulse Rate [ From Monitor] Respiratory 12 23 20 Rate Respiratory Rate [Left Anterior Leg] Respiratory Rate [Left Foot ] Blood Pressure 116/53 116/53 91/37 Blood Pressure [Left] O2 Sat by Pulse 100 Oximetry 06/14/17 06/14/17 06/14/17 01:30 01:41 01:51 Temperature Pulse Rate 95 H 101 H 96 H Pulse Rate [ From Monitor] Respiratory 18 23 21 Rate Respiratory Rate [Left Anterior Leg] Respiratory Rate [Left Foot ] Blood Pressure 107/47 107/47 111/49 Blood Pressure [Left] O2 Sat by Pulse 99 100 100 Oximetry 06/14/17 06/14/17 06/14/17 02:00 02:11 02:21 Temperature Pulse Rate 103 H 115 H 99 H Pulse Rate [ From Monitor] Respiratory 21 20 20 Rate Respiratory Rate [Left Anterior Leg] Respiratory Rate [Left Foot ] Blood Pressure 113/57 113/57 120/57 Blood Pressure [Left] O2 Sat by Pulse 100 100 96 Oximetry 06/14/17 06/14/17 06/14/17 02:30 02:41 02:51 Temperature Pulse Rate 115 H 107 H Pulse Rate [ From Monitor] Respiratory 23 23 Rate Respiratory Rate [Left Anterior Leg] Respiratory Rate [Left Foot ] Blood Pressure 109/51 109/51 116/56 Blood Pressure [Left] O2 Sat by Pulse 100 100 100 Oximetry 06/14/17 06/14/17 06/14/17 02:54 03:01 03:11 Temperature Pulse Rate 119 H 125 H 121 H Pulse Rate [ From Monitor] Respiratory 19 17 Rate Respiratory Rate [Left Anterior Leg] Respiratory Rate [Left Foot ] Blood Pressure 137/75 137/75 Blood Pressure [Left] O2 Sat by Pulse 53 L Oximetry 06/14/17 06/14/17 06/14/17 03:21 03:30 03:41 Temperature Pulse Rate 103 H 124 H 125 H Pulse Rate [ From Monitor] Respiratory 20 20 19 Rate Respiratory Rate [Left Anterior Leg] Respiratory Rate [Left Foot ] Blood Pressure 113/48 113/59 113/59 Blood Pressure [Left] O2 Sat by Pulse 91 78 L 100 Oximetry 06/14/17 06/14/17 06/14/17 03:51 04:00 04:11 Temperature Pulse Rate 105 H 95 H 113 H Pulse Rate [ From Monitor] Respiratory 19 22 22 Rate Respiratory Rate [Left Anterior Leg] Respiratory Rate [Left Foot ] Blood Pressure 108/51 108/49 108/49 Blood Pressure [Left] O2 Sat by Pulse 83 L 100 100 Oximetry 06/14/17 06/14/17 06/14/17 04:21 04:30 04:41 Temperature Pulse Rate 118 H 126 H 126 H Pulse Rate [ From Monitor] Respiratory 21 23 23 Rate Respiratory Rate [Left Anterior Leg] Respiratory Rate [Left Foot ] Blood Pressure 105/51 112/52 112/52 Blood Pressure [Left] O2 Sat by Pulse 100 96 Oximetry 06/14/17 06/14/17 06/14/17 04:51 05:00 05:11 Temperature Pulse Rate 126 H 124 H 125 H Pulse Rate [ From Monitor] Respiratory 18 21 20 Rate Respiratory Rate [Left Anterior Leg] Respiratory Rate [Left Foot ] Blood Pressure 110/50 105/50 105/50 Blood Pressure [Left] O2 Sat by Pulse 98 100 100 Oximetry 06/14/17 06/14/17 06/14/17 05:20 05:30 05:41 Temperature Pulse Rate 123 H 124 H 124 H Pulse Rate [ From Monitor] Respiratory 22 23 25 H Rate Respiratory Rate [Left Anterior Leg] Respiratory Rate [Left Foot ] Blood Pressure 110/53 104/53 110/53 Blood Pressure [Left] O2 Sat by Pulse 97 100 Oximetry 06/14/17 06/14/17 06/14/17 05:51 06:00 06:11 Temperature Pulse Rate 125 H 125 H 123 H Pulse Rate [ From Monitor] Respiratory 24 25 H 26 H Rate Respiratory Rate [Left Anterior Leg] Respiratory Rate [Left Foot ] Blood Pressure 106/50 113/54 113/54 Blood Pressure [Left] O2 Sat by Pulse 68 L 98 Oximetry 06/14/17 06/14/17 06/14/17 06:21 06:31 06:41 Temperature Pulse Rate 111 H 126 H 99 H Pulse Rate [ From Monitor] Respiratory 22 21 23 Rate Respiratory Rate [Left Anterior Leg] Respiratory Rate [Left Foot ] Blood Pressure 109/54 103/60 103/60 Blood Pressure [Left] O2 Sat by Pulse 48 L 64 L Oximetry 06/14/17 06/14/17 06/14/17 06:51 07:00 07:11 Temperature Pulse Rate 124 H 109 H 105 H Pulse Rate [ From Monitor] Respiratory 21 21 22 Rate Respiratory Rate [Left Anterior Leg] Respiratory Rate [Left Foot ] Blood Pressure 102/49 105/46 105/46 Blood Pressure [Left] O2 Sat by Pulse 95 96 100 Oximetry 06/14/17 06/14/17 06/14/17 07:21 07:30 07:41 Temperature Pulse Rate 105 H 103 H 126 H Pulse Rate [ From Monitor] Respiratory 22 20 21 Rate Respiratory Rate [Left Anterior Leg] Respiratory Rate [Left Foot ] Blood Pressure 109/54 106/49 106/49 Blood Pressure [Left] O2 Sat by Pulse 100 91 100 Oximetry 06/14/17 06/14/17 06/14/17 07:51 08:00 08:11 Temperature 98.6 F Pulse Rate 130 H 128 H 128 H Pulse Rate [ From Monitor] Respiratory 19 20 24 Rate Respiratory Rate [Left Anterior Leg] Respiratory Rate [Left Foot ] Blood Pressure 116/62 113/57 113/57 Blood Pressure [Left] O2 Sat by Pulse 93 100 100 Oximetry 06/14/17 06/14/17 06/14/17 08:21 08:30 08:41 Temperature Pulse Rate 124 H 127 H 128 H Pulse Rate [ From Monitor] Respiratory 22 20 23 Rate Respiratory Rate [Left Anterior Leg] Respiratory Rate [Left Foot ] Blood Pressure 114/60 113/60 113/60 Blood Pressure [Left] O2 Sat by Pulse 100 100 100 Oximetry 06/14/17 06/14/17 06/14/17 08:51 09:00 09:11 Temperature Pulse Rate 128 H 117 H 127 H Pulse Rate [ From Monitor] Respiratory 21 20 16 Rate Respiratory Rate [Left Anterior Leg] Respiratory Rate [Left Foot ] Blood Pressure 122/60 113/61 113/61 Blood Pressure [Left] O2 Sat by Pulse 63 L Oximetry 06/14/17 06/14/17 06/14/17 09:21 09:30 09:41 Temperature Pulse Rate 126 H 128 H 129 H Pulse Rate [ From Monitor] Respiratory 21 23 20 Rate Respiratory Rate [Left Anterior Leg] Respiratory Rate [Left Foot ] Blood Pressure 120/61 113/66 113/66 Blood Pressure [Left] O2 Sat by Pulse 100 100 Oximetry 06/14/17 06/14/17 06/14/17 09:51 10:00 10:11 Temperature Pulse Rate 127 H 129 H 127 H Pulse Rate [ From Monitor] Respiratory 20 21 21 Rate Respiratory Rate [Left Anterior Leg] Respiratory Rate [Left Foot ] Blood Pressure 123/66 122/63 122/63 Blood Pressure [Left] O2 Sat by Pulse 81 L 76 L 87 Oximetry 06/14/17 06/14/17 06/14/17 10:21 10:30 10:41 Temperature Pulse Rate 127 H 125 H 131 H Pulse Rate [ From Monitor] Respiratory 21 12 15 Rate Respiratory Rate [Left Anterior Leg] Respiratory Rate [Left Foot ] Blood Pressure 122/62 124/63 124/63 Blood Pressure [Left] O2 Sat by Pulse Oximetry 06/14/17 06/14/17 06/14/17 10:51 11:00 11:11 Temperature Pulse Rate 127 H 126 H 126 H Pulse Rate [ From Monitor] Respiratory 20 21 21 Rate Respiratory Rate [Left Anterior Leg] Respiratory Rate [Left Foot ] Blood Pressure 120/61 126/61 126/61 Blood Pressure [Left] O2 Sat by Pulse Oximetry 06/14/17 06/14/17 06/14/17 19:00 19:15 19:20 Temperature 97.5 F L Pulse Rate 113 H 110 H 111 H Pulse Rate [ From Monitor] Respiratory 18 27 H 26 H Rate Respiratory Rate [Left Anterior Leg] Respiratory Rate [Left Foot ] Blood Pressure 102/50 131/59 126/55 Blood Pressure [Left] O2 Sat by Pulse 100 100 100 Oximetry 06/14/17 06/14/17 06/14/17 19:25 19:30 19:45 Temperature Pulse Rate 112 H 111 H 112 H Pulse Rate [ From Monitor] Respiratory 28 H 27 H 25 H Rate Respiratory Rate [Left Anterior Leg] Respiratory Rate [Left Foot ] Blood Pressure 132/64 131/59 123/56 Blood Pressure [Left] O2 Sat by Pulse 100 100 100 Oximetry 06/14/17 06/14/17 06/14/17 20:05 20:19 20:20 Temperature Pulse Rate 114 H Pulse Rate [ From Monitor] Respiratory Rate Respiratory Rate [Left Anterior Leg] Respiratory Rate [Left Foot ] Blood Pressure 134/58 135/59 Blood Pressure [Left] O2 Sat by Pulse 100 100 Oximetry 06/14/17 06/14/17 06/14/17 20:30 20:41 20:51 Temperature Pulse Rate 116 H 117 H 122 H Pulse Rate [ 116 H From Monitor] Respiratory 31 H 31 H 26 H Rate Respiratory Rate [Left Anterior Leg] Respiratory Rate [Left Foot ] Blood Pressure 123/49 123/49 120/55 Blood Pressure [Left] O2 Sat by Pulse 98 84 Oximetry 06/14/17 06/14/17 06/14/17 21:01 21:11 21:21 Temperature Pulse Rate 143 H 149 H 142 H Pulse Rate [ From Monitor] Respiratory 33 H 35 H 30 H Rate Respiratory Rate [Left Anterior Leg] Respiratory Rate [Left Foot ] Blood Pressure 127/49 127/49 129/57 Blood Pressure [Left] O2 Sat by Pulse 91 100 100 Oximetry 06/14/17 06/14/17 06/14/17 21:31 21:41 21:51 Temperature Pulse Rate 140 H 142 H 138 H Pulse Rate [ From Monitor] Respiratory 30 H 28 H 28 H Rate Respiratory Rate [Left Anterior Leg] Respiratory Rate [Left Foot ] Blood Pressure 94/45 94/45 100/48 Blood Pressure [Left] O2 Sat by Pulse 100 100 100 Oximetry 06/14/17 06/14/17 06/14/17 22:00 22:11 22:21 Temperature Pulse Rate 145 H 142 H 138 H Pulse Rate [ From Monitor] Respiratory 25 H 30 H 30 H Rate Respiratory Rate [Left Anterior Leg] Respiratory Rate [Left Foot ] Blood Pressure 95/45 95/45 99/54 Blood Pressure [Left] O2 Sat by Pulse 100 97 100 Oximetry 06/14/17 06/14/17 06/14/17 22:30 22:41 22:51 Temperature Pulse Rate 141 H 146 H 158 H Pulse Rate [ From Monitor] Respiratory 28 H 32 H 30 H Rate Respiratory Rate [Left Anterior Leg] Respiratory Rate [Left Foot ] Blood Pressure 92/47 92/47 106/52 Blood Pressure [Left] O2 Sat by Pulse 100 100 100 Oximetry 06/14/17 06/14/17 06/14/17 23:00 23:11 23:21 Temperature Pulse Rate 136 H 157 H 111 H Pulse Rate [ From Monitor] Respiratory 32 H 31 H 31 H Rate Respiratory Rate [Left Anterior Leg] Respiratory Rate [Left Foot ] Blood Pressure 97/51 97/51 85/48 Blood Pressure [Left] O2 Sat by Pulse 100 100 100 Oximetry 06/14/17 06/14/17 06/14/17 23:30 23:41 23:43 Temperature 98.9 F Pulse Rate 114 H 114 H Pulse Rate [ From Monitor] Respiratory 30 H 27 H Rate Respiratory Rate [Left Anterior Leg] Respiratory Rate [Left Foot ] Blood Pressure 101/46 101/46 Blood Pressure [Left] O2 Sat by Pulse 100 99 Oximetry 06/14/17 06/15/17 06/15/17 23:51 00:00 00:11 Temperature Pulse Rate 115 H 118 H 115 H Pulse Rate [ From Monitor] Respiratory 28 H 31 H 25 H Rate Respiratory Rate [Left Anterior Leg] Respiratory Rate [Left Foot ] Blood Pressure 97/47 113/41 113/41 Blood Pressure [Left] O2 Sat by Pulse 100 100 100 Oximetry 06/15/17 06/15/17 06/15/17 00:21 00:30 00:39 Temperature Pulse Rate 116 H 114 H 116 H Pulse Rate [ From Monitor] Respiratory 30 H 30 H Rate Respiratory Rate [Left Anterior Leg] Respiratory Rate [Left Foot ] Blood Pressure 100/51 95/42 95/42 Blood Pressure [Left] O2 Sat by Pulse 100 100 100 Oximetry 06/15/17 06/15/17 06/15/17 00:41 00:50 01:00 Temperature Pulse Rate 117 H 120 H 119 H Pulse Rate [ From Monitor] Respiratory 32 H 31 H 28 H Rate Respiratory Rate [Left Anterior Leg] Respiratory Rate [Left Foot ] Blood Pressure 95/42 105/51 106/43 Blood Pressure [Left] O2 Sat by Pulse 100 100 100 Oximetry 06/15/17 06/15/17 06/15/17 01:03 01:11 01:21 Temperature Pulse Rate 120 H 118 H Pulse Rate [ From Monitor] Respiratory 27 H 26 H Rate Respiratory 30 H Rate [Left Anterior Leg] Respiratory 30 H Rate [Left Foot ] Blood Pressure 106/43 109/48 Blood Pressure [Left] O2 Sat by Pulse 100 100 Oximetry 06/15/17 06/15/17 06/15/17 01:30 01:41 01:51 Temperature Pulse Rate 119 H 120 H 120 H Pulse Rate [ From Monitor] Respiratory 26 H 25 H 25 H Rate Respiratory Rate [Left Anterior Leg] Respiratory Rate [Left Foot ] Blood Pressure 108/52 108/52 115/51 Blood Pressure [Left] O2 Sat by Pulse 100 100 100 Oximetry 06/15/17 06/15/17 06/15/17 02:00 02:11 02:21 Temperature Pulse Rate 119 H 120 H 118 H Pulse Rate [ From Monitor] Respiratory 28 H 23 23 Rate Respiratory Rate [Left Anterior Leg] Respiratory Rate [Left Foot ] Blood Pressure 108/50 108/50 99/44 Blood Pressure [Left] O2 Sat by Pulse 100 100 100 Oximetry 06/15/17 06/15/17 06/15/17 02:30 02:41 02:51 Temperature Pulse Rate 120 H 119 H 119 H Pulse Rate [ From Monitor] Respiratory 24 24 22 Rate Respiratory Rate [Left Anterior Leg] Respiratory Rate [Left Foot ] Blood Pressure 109/54 109/54 109/51 Blood Pressure [Left] O2 Sat by Pulse 100 100 100 Oximetry 06/15/17 06/15/17 06/15/17 03:00 03:11 03:21 Temperature Pulse Rate 118 H 118 H 117 H Pulse Rate [ From Monitor] Respiratory 25 H 24 22 Rate Respiratory Rate [Left Anterior Leg] Respiratory Rate [Left Foot ] Blood Pressure 108/49 109/51 107/50 Blood Pressure [Left] O2 Sat by Pulse 100 100 100 Oximetry 06/15/17 06/15/17 06/15/17 03:30 03:41 03:51 Temperature Pulse Rate 117 H 116 H 117 H Pulse Rate [ From Monitor] Respiratory 24 22 23 Rate Respiratory Rate [Left Anterior Leg] Respiratory Rate [Left Foot ] Blood Pressure 103/49 108/49 100/48 Blood Pressure [Left] O2 Sat by Pulse 100 100 100 Oximetry 06/15/17 06/15/17 06/15/17 04:00 04:02 04:11 Temperature 100.5 F H Pulse Rate 115 H 116 H 115 H Pulse Rate [ 115 H From Monitor] Respiratory 19 16 Rate Respiratory Rate [Left Anterior Leg] Respiratory Rate [Left Foot ] Blood Pressure 100/49 100/48 100/49 Blood Pressure [Left] O2 Sat by Pulse 100 100 100 Oximetry 06/15/17 06/15/17 06/15/17 04:21 04:30 04:41 Temperature Pulse Rate 117 H 116 H 116 H Pulse Rate [ From Monitor] Respiratory 24 23 21 Rate Respiratory Rate [Left Anterior Leg] Respiratory Rate [Left Foot ] Blood Pressure 104/53 94/51 104/53 Blood Pressure [Left] O2 Sat by Pulse 100 100 100 Oximetry 06/15/17 06/15/17 06/15/17 04:51 05:00 05:11 Temperature Pulse Rate 115 H 115 H 114 H Pulse Rate [ From Monitor] Respiratory 24 23 24 Rate Respiratory Rate [Left Anterior Leg] Respiratory Rate [Left Foot ] Blood Pressure 106/50 100/49 94/51 Blood Pressure [Left] O2 Sat by Pulse 100 100 100 Oximetry 06/15/17 06/15/17 06/15/17 05:21 05:30 05:41 Temperature Pulse Rate 115 H 115 H 116 H Pulse Rate [ From Monitor] Respiratory 24 24 22 Rate Respiratory Rate [Left Anterior Leg] Respiratory Rate [Left Foot ] Blood Pressure 108/53 106/54 106/54 Blood Pressure [Left] O2 Sat by Pulse 100 100 100 Oximetry 06/15/17 06/15/17 06/15/17 05:51 06:00 06:11 Temperature Pulse Rate 116 H 116 H 117 H Pulse Rate [ From Monitor] Respiratory 23 24 25 H Rate Respiratory Rate [Left Anterior Leg] Respiratory Rate [Left Foot ] Blood Pressure 100/48 111/49 111/49 Blood Pressure [Left] O2 Sat by Pulse 100 100 100 Oximetry 06/15/17 06/15/17 06/15/17 06:21 06:30 06:41 Temperature Pulse Rate 118 H 119 H 118 H Pulse Rate [ From Monitor] Respiratory 25 H 21 30 H Rate Respiratory Rate [Left Anterior Leg] Respiratory Rate [Left Foot ] Blood Pressure 91/50 94/47 95/50 Blood Pressure [Left] O2 Sat by Pulse 100 100 100 Oximetry 06/15/17 06/15/17 06/15/17 06:51 07:00 07:11 Temperature Pulse Rate 115 H 118 H 119 H Pulse Rate [ From Monitor] Respiratory 23 24 23 Rate Respiratory Rate [Left Anterior Leg] Respiratory Rate [Left Foot ] Blood Pressure 103/53 105/46 102/48 Blood Pressure [Left] O2 Sat by Pulse 100 100 100 Oximetry 06/15/17 06/15/17 06/15/17 07:21 07:30 07:41 Temperature Pulse Rate 120 H 120 H 120 H Pulse Rate [ From Monitor] Respiratory 20 20 23 Rate Respiratory Rate [Left Anterior Leg] Respiratory Rate [Left Foot ] Blood Pressure 105/50 109/50 109/50 Blood Pressure [Left] O2 Sat by Pulse 100 100 100 Oximetry 06/15/17 06/15/17 06/15/17 07:44 07:51 07:53 Temperature 99.7 F H Pulse Rate 123 H Pulse Rate [ 118 H From Monitor] Respiratory 22 Rate Respiratory Rate [Left Anterior Leg] Respiratory Rate [Left Foot ] Blood Pressure 112/52 Blood Pressure [Left] O2 Sat by Pulse 100 100 Oximetry 06/15/17 06/15/17 06/15/17 08:00 08:11 08:15 Temperature Pulse Rate 122 H 122 H 123 H Pulse Rate [ From Monitor] Respiratory 21 20 Rate Respiratory Rate [Left Anterior Leg] Respiratory Rate [Left Foot ] Blood Pressure 112/53 112/53 112/53 Blood Pressure [Left] O2 Sat by Pulse 100 100 100 Oximetry 06/15/17 06/15/17 06/15/17 08:21 08:30 08:41 Temperature Pulse Rate 124 H 124 H 124 H Pulse Rate [ From Monitor] Respiratory 23 21 21 Rate Respiratory Rate [Left Anterior Leg] Respiratory Rate [Left Foot ] Blood Pressure 117/53 127/55 127/55 Blood Pressure [Left] O2 Sat by Pulse 100 100 100 Oximetry 06/15/17 06/15/17 06/15/17 08:51 09:00 09:11 Temperature Pulse Rate 124 H 124 H 123 H Pulse Rate [ From Monitor] Respiratory 25 H 23 22 Rate Respiratory Rate [Left Anterior Leg] Respiratory Rate [Left Foot ] Blood Pressure 123/56 126/57 126/57 Blood Pressure [Left] O2 Sat by Pulse 100 100 100 Oximetry 06/15/17 06/15/17 06/15/17 09:21 09:30 09:41 Temperature Pulse Rate 124 H 124 H 125 H Pulse Rate [ From Monitor] Respiratory 22 24 21 Rate Respiratory Rate [Left Anterior Leg] Respiratory Rate [Left Foot ] Blood Pressure 121/60 112/63 112/63 Blood Pressure [Left] O2 Sat by Pulse 100 100 100 Oximetry 06/15/17 06/15/17 06/15/17 09:51 10:00 10:11 Temperature Pulse Rate 123 H 124 H 124 H Pulse Rate [ 125 H From Monitor] Respiratory 24 21 22 Rate Respiratory Rate [Left Anterior Leg] Respiratory Rate [Left Foot ] Blood Pressure 116/60 117/57 117/57 Blood Pressure [Left] O2 Sat by Pulse 100 100 100 Oximetry 06/15/17 06/15/17 06/15/17 10:21 10:30 10:41 Temperature Pulse Rate 126 H 125 H 123 H Pulse Rate [ From Monitor] Respiratory 24 21 23 Rate Respiratory Rate [Left Anterior Leg] Respiratory Rate [Left Foot ] Blood Pressure 123/59 119/54 119/54 Blood Pressure [Left] O2 Sat by Pulse 100 100 100 Oximetry 06/15/17 06/15/17 06/15/17 10:51 11:00 11:07 Temperature Pulse Rate 124 H 124 H 124 H Pulse Rate [ From Monitor] Respiratory 23 17 20 Rate Respiratory Rate [Left Anterior Leg] Respiratory Rate [Left Foot ] Blood Pressure 115/60 114/55 115/60 Blood Pressure [Left] O2 Sat by Pulse 100 100 100 Oximetry 06/15/17 06/15/17 06/15/17 11:11 11:21 11:30 Temperature Pulse Rate 123 H 123 H 121 H Pulse Rate [ From Monitor] Respiratory 26 H 22 24 Rate Respiratory Rate [Left Anterior Leg] Respiratory Rate [Left Foot ] Blood Pressure 114/55 120/57 118/57 Blood Pressure [Left] O2 Sat by Pulse 100 100 100 Oximetry 06/15/17 06/15/17 06/15/17 11:41 11:51 12:00 Temperature 100.4 F H Pulse Rate 123 H 121 H 124 H Pulse Rate [ From Monitor] Respiratory 28 H 39 H 32 H Rate Respiratory Rate [Left Anterior Leg] Respiratory Rate [Left Foot ] Blood Pressure 118/57 120/55 115/52 Blood Pressure [Left] O2 Sat by Pulse 100 100 100 Oximetry 06/15/17 06/15/17 06/15/17 12:11 12:21 12:30 Temperature Pulse Rate 127 H 126 H 123 H Pulse Rate [ From Monitor] Respiratory 26 H 27 H 27 H Rate Respiratory Rate [Left Anterior Leg] Respiratory Rate [Left Foot ] Blood Pressure 115/52 115/52 125/48 Blood Pressure [Left] O2 Sat by Pulse 100 100 100 Oximetry 06/15/17 06/15/17 06/15/17 12:41 12:49 12:51 Temperature Pulse Rate 125 H 124 H 125 H Pulse Rate [ From Monitor] Respiratory 29 H 29 H 30 H Rate Respiratory Rate [Left Anterior Leg] Respiratory Rate [Left Foot ] Blood Pressure 125/48 125/48 124/54 Blood Pressure [Left] O2 Sat by Pulse 100 100 100 Oximetry 06/15/17 06/15/17 06/15/17 13:00 13:11 13:21 Temperature Pulse Rate 125 H 126 H 122 H Pulse Rate [ From Monitor] Respiratory 28 H 24 27 H Rate Respiratory Rate [Left Anterior Leg] Respiratory Rate [Left Foot ] Blood Pressure 120/54 120/54 120/54 Blood Pressure [Left] O2 Sat by Pulse 100 100 100 Oximetry 06/15/17 06/15/17 06/15/17 13:30 13:41 13:51 Temperature Pulse Rate 122 H 121 H 121 H Pulse Rate [ From Monitor] Respiratory 25 H 24 20 Rate Respiratory Rate [Left Anterior Leg] Respiratory Rate [Left Foot ] Blood Pressure 112/56 112/56 112/56 Blood Pressure [Left] O2 Sat by Pulse 100 100 100 Oximetry 06/15/17 06/15/17 06/15/17 14:00 14:11 14:21 Temperature Pulse Rate 120 H 124 H 122 H Pulse Rate [ From Monitor] Respiratory 26 H 26 H 23 Rate Respiratory Rate [Left Anterior Leg] Respiratory Rate [Left Foot ] Blood Pressure 111/54 111/54 116/55 Blood Pressure [Left] O2 Sat by Pulse 100 100 100 Oximetry 06/15/17 06/15/17 06/15/17 14:30 14:41 14:51 Temperature Pulse Rate 123 H 128 H 120 H Pulse Rate [ From Monitor] Respiratory 23 21 20 Rate Respiratory Rate [Left Anterior Leg] Respiratory Rate [Left Foot ] Blood Pressure 118/56 118/56 115/54 Blood Pressure [Left] O2 Sat by Pulse 100 100 100 Oximetry 06/15/17 06/15/17 06/15/17 15:00 15:11 15:12 Temperature 98.2 F Pulse Rate 120 H 122 H 124 H Pulse Rate [ From Monitor] Respiratory 19 17 24 Rate Respiratory Rate [Left Anterior Leg] Respiratory Rate [Left Foot ] Blood Pressure 114/56 114/56 123/52 Blood Pressure [Left] O2 Sat by Pulse 100 100 100 Oximetry 06/15/17 06/15/17 06/15/17 15:21 15:27 15:30 Temperature 98.6 F Pulse Rate 127 H 129 H 123 H Pulse Rate [ From Monitor] Respiratory 16 15 17 Rate Respiratory Rate [Left Anterior Leg] Respiratory Rate [Left Foot ] Blood Pressure 115/60 121/50 116/56 Blood Pressure [Left] O2 Sat by Pulse 100 100 100 Oximetry 06/15/17 06/15/17 06/15/17 15:41 15:45 15:51 Temperature 98.6 F Pulse Rate 122 H 120 H 122 H Pulse Rate [ From Monitor] Respiratory 16 22 28 H Rate Respiratory Rate [Left Anterior Leg] Respiratory Rate [Left Foot ] Blood Pressure 116/56 116/56 115/56 Blood Pressure [Left] O2 Sat by Pulse 99 100 100 Oximetry 06/15/17 06/15/17 06/15/17 15:57 16:00 16:06 Temperature 98.1 F 98.6 F Pulse Rate 122 H 124 H Pulse Rate [ From Monitor] Respiratory 14 21 Rate Respiratory Rate [Left Anterior Leg] Respiratory Rate [Left Foot ] Blood Pressure 112/60 Blood Pressure [Left] O2 Sat by Pulse 100 99 Oximetry 06/15/17 06/15/17 06/15/17 16:10 16:20 16:30 Temperature Pulse Rate 126 H 125 H 124 H Pulse Rate [ From Monitor] Respiratory 19 15 25 H Rate Respiratory Rate [Left Anterior Leg] Respiratory Rate [Left Foot ] Blood Pressure 119/59 125/44 Blood Pressure [Left] O2 Sat by Pulse 100 100 100 Oximetry 06/15/17 06/15/17 06/15/17 16:40 16:50 16:56 Temperature Pulse Rate 124 H 124 H 123 H Pulse Rate [ From Monitor] Respiratory 23 21 2 L Rate Respiratory Rate [Left Anterior Leg] Respiratory Rate [Left Foot ] Blood Pressure 125/44 121/50 121/50 Blood Pressure [Left] O2 Sat by Pulse 100 100 100 Oximetry 06/15/17 06/15/17 06/15/17 17:00 17:10 17:20 Temperature Pulse Rate 122 H 122 H 123 H Pulse Rate [ From Monitor] Respiratory 20 20 15 Rate Respiratory Rate [Left Anterior Leg] Respiratory Rate [Left Foot ] Blood Pressure 109/61 109/61 112/60 Blood Pressure [Left] O2 Sat by Pulse 100 100 100 Oximetry 06/15/17 06/15/17 06/15/17 17:30 17:40 17:50 Temperature Pulse Rate 121 H 121 H 122 H Pulse Rate [ From Monitor] Respiratory 20 13 12 Rate Respiratory Rate [Left Anterior Leg] Respiratory Rate [Left Foot ] Blood Pressure 108/54 108/54 109/51 Blood Pressure [Left] O2 Sat by Pulse 100 100 100 Oximetry 06/15/17 06/15/17 06/15/17 18:00 18:03 18:10 Temperature 98.2 F Pulse Rate 120 H 120 H 119 H Pulse Rate [ From Monitor] Respiratory 12 13 10 L Rate Respiratory Rate [Left Anterior Leg] Respiratory Rate [Left Foot ] Blood Pressure 113/58 109/51 113/58 Blood Pressure [Left] O2 Sat by Pulse 100 100 100 Oximetry 06/15/17 06/15/17 06/15/17 18:20 18:21 18:24 Temperature 99.5 F Pulse Rate 122 H 118 H Pulse Rate [ From Monitor] Respiratory 15 12 Rate Respiratory Rate [Left Anterior Leg] Respiratory Rate [Left Foot ] Blood Pressure 107/50 113/58 Blood Pressure [Left] O2 Sat by Pulse 100 100 100 Oximetry 06/15/17 06/15/17 06/15/17 18:30 18:40 18:50 Temperature Pulse Rate 119 H 122 H 121 H Pulse Rate [ From Monitor] Respiratory 29 H 22 24 Rate Respiratory Rate [Left Anterior Leg] Respiratory Rate [Left Foot ] Blood Pressure 116/56 116/56 113/57 Blood Pressure [Left] O2 Sat by Pulse 100 100 100 Oximetry 06/15/17 06/15/17 06/15/17 19:00 19:10 19:20 Temperature 100.4 F H Pulse Rate 120 H 121 H 122 H Pulse Rate [ From Monitor] Respiratory 22 21 13 Rate Respiratory Rate [Left Anterior Leg] Respiratory Rate [Left Foot ] Blood Pressure 111/60 111/60 111/61 Blood Pressure [Left] O2 Sat by Pulse 100 100 100 Oximetry 06/15/17 06/15/17 06/15/17 19:30 19:39 19:40 Temperature 101.5 F H Pulse Rate 122 H 120 H Pulse Rate [ From Monitor] Respiratory 13 20 Rate Respiratory Rate [Left Anterior Leg] Respiratory Rate [Left Foot ] Blood Pressure 115/63 115/63 Blood Pressure [Left] O2 Sat by Pulse 100 100 Oximetry 06/15/17 06/15/17 06/15/17 19:50 20:00 20:03 Temperature 101 F H Pulse Rate 121 H 126 H 125 H Pulse Rate [ From Monitor] Respiratory 41 H 24 Rate Respiratory Rate [Left Anterior Leg] Respiratory Rate [Left Foot ] Blood Pressure 126/59 115/60 126/59 Blood Pressure [Left] O2 Sat by Pulse 99 100 100 Oximetry 06/15/17 06/15/17 06/15/17 20:10 20:20 20:30 Temperature Pulse Rate 126 H 122 H 121 H Pulse Rate [ From Monitor] Respiratory 21 17 20 Rate Respiratory Rate [Left Anterior Leg] Respiratory Rate [Left Foot ] Blood Pressure 115/60 114/59 108/57 Blood Pressure [Left] O2 Sat by Pulse 100 99 100 Oximetry 06/15/17 06/15/17 06/15/17 20:40 20:50 21:00 Temperature Pulse Rate 116 H 111 H 112 H Pulse Rate [ From Monitor] Respiratory 22 16 16 Rate Respiratory Rate [Left Anterior Leg] Respiratory Rate [Left Foot ] Blood Pressure 108/57 104/50 97/48 Blood Pressure [Left] O2 Sat by Pulse 100 100 100 Oximetry 06/15/17 06/15/17 06/15/17 21:10 21:20 21:30 Temperature Pulse Rate 119 H 111 H 117 H Pulse Rate [ From Monitor] Respiratory 16 13 16 Rate Respiratory Rate [Left Anterior Leg] Respiratory Rate [Left Foot ] Blood Pressure 97/48 102/52 108/54 Blood Pressure [Left] O2 Sat by Pulse 100 100 100 Oximetry 06/15/17 06/15/17 06/15/17 21:40 21:50 22:00 Temperature Pulse Rate 114 H 121 H 122 H Pulse Rate [ From Monitor] Respiratory 14 18 18 Rate Respiratory Rate [Left Anterior Leg] Respiratory Rate [Left Foot ] Blood Pressure 108/54 113/55 115/59 Blood Pressure [Left] O2 Sat by Pulse 100 100 100 Oximetry 06/15/17 06/15/17 06/15/17 22:10 22:20 22:30 Temperature Pulse Rate 109 H 114 H 112 H Pulse Rate [ From Monitor] Respiratory 18 20 18 Rate Respiratory Rate [Left Anterior Leg] Respiratory Rate [Left Foot ] Blood Pressure 115/59 111/55 101/50 Blood Pressure [Left] O2 Sat by Pulse 100 100 100 Oximetry 06/15/17 06/15/17 06/15/17 22:40 22:50 23:00 Temperature Pulse Rate 119 H 120 H 98 H Pulse Rate [ From Monitor] Respiratory 21 19 16 Rate Respiratory Rate [Left Anterior Leg] Respiratory Rate [Left Foot ] Blood Pressure 101/50 105/60 90/39 Blood Pressure [Left] O2 Sat by Pulse 100 100 100 Oximetry 06/15/17 06/15/17 06/15/17 23:10 23:20 23:30 Temperature Pulse Rate 121 H 121 H 95 H Pulse Rate [ From Monitor] Respiratory 16 16 16 Rate Respiratory Rate [Left Anterior Leg] Respiratory Rate [Left Foot ] Blood Pressure 90/39 85/47 94/44 Blood Pressure [Left] O2 Sat by Pulse 100 100 100 Oximetry 06/15/17 06/15/17 06/15/17 23:32 23:40 23:50 Temperature Pulse Rate 121 H 113 H 113 H Pulse Rate [ From Monitor] Respiratory 16 16 16 Rate Respiratory Rate [Left Anterior Leg] Respiratory Rate [Left Foot ] Blood Pressure 94/44 94/44 94/50 Blood Pressure [Left] O2 Sat by Pulse 100 100 100 Oximetry 06/16/17 06/16/17 06/16/17 00:00 00:06 00:10 Temperature 103.1 F H Pulse Rate 114 H 119 H 113 H Pulse Rate [ From Monitor] Respiratory 16 16 Rate Respiratory Rate [Left Anterior Leg] Respiratory Rate [Left Foot ] Blood Pressure 98/52 85/47 98/52 Blood Pressure [Left] O2 Sat by Pulse 100 100 100 Oximetry 06/16/17 06/16/17 06/16/17 00:20 00:30 00:40 Temperature Pulse Rate 114 H 113 H 113 H Pulse Rate [ From Monitor] Respiratory 16 16 16 Rate Respiratory Rate [Left Anterior Leg] Respiratory Rate [Left Foot ] Blood Pressure 100/54 97/54 98/52 Blood Pressure [Left] O2 Sat by Pulse 100 100 100 Oximetry 06/16/17 06/16/17 06/16/17 00:50 01:00 01:10 Temperature Pulse Rate 112 H 96 H 113 H Pulse Rate [ From Monitor] Respiratory 16 16 16 Rate Respiratory Rate [Left Anterior Leg] Respiratory Rate [Left Foot ] Blood Pressure 101/54 100/51 101/54 Blood Pressure [Left] O2 Sat by Pulse 100 100 100 Oximetry 06/16/17 06/16/17 06/16/17 01:20 01:30 01:40 Temperature Pulse Rate 113 H 117 H 113 H Pulse Rate [ From Monitor] Respiratory 16 16 16 Rate Respiratory Rate [Left Anterior Leg] Respiratory Rate [Left Foot ] Blood Pressure 97/55 96/54 96/54 Blood Pressure [Left] O2 Sat by Pulse 100 100 100 Oximetry 06/16/17 06/16/17 06/16/17 01:50 02:00 02:10 Temperature Pulse Rate 112 H 114 H 112 H Pulse Rate [ From Monitor] Respiratory 16 16 16 Rate Respiratory Rate [Left Anterior Leg] Respiratory Rate [Left Foot ] Blood Pressure 97/53 99/56 99/56 Blood Pressure [Left] O2 Sat by Pulse 100 100 100 Oximetry 06/16/17 06/16/17 06/16/17 02:20 02:30 02:40 Temperature Pulse Rate 115 H 114 H 114 H Pulse Rate [ From Monitor] Respiratory 16 16 16 Rate Respiratory Rate [Left Anterior Leg] Respiratory Rate [Left Foot ] Blood Pressure 101/53 100/53 100/53 Blood Pressure [Left] O2 Sat by Pulse 100 100 100 Oximetry 06/16/17 06/16/17 06/16/17 02:50 03:00 03:10 Temperature Pulse Rate 113 H 112 H 123 H Pulse Rate [ From Monitor] Respiratory 16 16 18 Rate Respiratory Rate [Left Anterior Leg] Respiratory Rate [Left Foot ] Blood Pressure 100/55 104/57 104/57 Blood Pressure [Left] O2 Sat by Pulse 100 100 100 Oximetry 06/16/17 06/16/17 06/16/17 03:20 03:30 03:40 Temperature Pulse Rate 125 H 115 H 100 H Pulse Rate [ From Monitor] Respiratory 16 16 16 Rate Respiratory Rate [Left Anterior Leg] Respiratory Rate [Left Foot ] Blood Pressure 126/68 101/54 101/54 Blood Pressure [Left] O2 Sat by Pulse 100 100 100 Oximetry 06/16/17 06/16/17 06/16/17 03:50 04:00 04:10 Temperature 101.7 F H Pulse Rate 114 H 114 H 114 H Pulse Rate [ From Monitor] Respiratory 16 16 16 Rate Respiratory Rate [Left Anterior Leg] Respiratory Rate [Left Foot ] Blood Pressure 100/54 106/57 106/57 Blood Pressure [Left] O2 Sat by Pulse 100 100 100 Oximetry 06/16/17 06/16/17 06/16/17 04:20 04:30 04:40 Temperature Pulse Rate 113 H 115 H 114 H Pulse Rate [ From Monitor] Respiratory 16 16 16 Rate Respiratory Rate [Left Anterior Leg] Respiratory Rate [Left Foot ] Blood Pressure 102/60 101/60 101/60 Blood Pressure [Left] O2 Sat by Pulse 100 100 100 Oximetry 06/16/17 06/16/17 06/16/17 04:50 04:54 05:00 Temperature Pulse Rate 114 H 115 H 114 H Pulse Rate [ From Monitor] Respiratory 16 18 Rate Respiratory Rate [Left Anterior Leg] Respiratory Rate [Left Foot ] Blood Pressure 107/61 107/61 128/74 Blood Pressure [Left] O2 Sat by Pulse 100 100 100 Oximetry 06/16/17 06/16/17 06/16/17 05:10 05:20 05:30 Temperature Pulse Rate 126 H 124 H 126 H Pulse Rate [ From Monitor] Respiratory 17 17 16 Rate Respiratory Rate [Left Anterior Leg] Respiratory Rate [Left Foot ] Blood Pressure 128/74 134/75 131/72 Blood Pressure [Left] O2 Sat by Pulse 98 99 99 Oximetry 06/16/17 06/16/17 06/16/17 05:40 05:50 06:00 Temperature Pulse Rate 126 H 125 H 127 H Pulse Rate [ From Monitor] Respiratory 16 16 16 Rate Respiratory Rate [Left Anterior Leg] Respiratory Rate [Left Foot ] Blood Pressure 134/75 132/70 123/66 Blood Pressure [Left] O2 Sat by Pulse 98 99 98 Oximetry 06/16/17 06/16/17 06/16/17 06:10 06:20 06:30 Temperature Pulse Rate 126 H 120 H 117 H Pulse Rate [ From Monitor] Respiratory 16 17 15 Rate Respiratory Rate [Left Anterior Leg] Respiratory Rate [Left Foot ] Blood Pressure 132/70 123/66 107/56 Blood Pressure [Left] O2 Sat by Pulse 100 100 100 Oximetry 06/16/17 06/16/17 06/16/17 06:40 07:00 07:15 Temperature Pulse Rate 123 H 122 H 125 H Pulse Rate [ From Monitor] Respiratory 15 11 L 11 L Rate Respiratory Rate [Left Anterior Leg] Respiratory Rate [Left Foot ] Blood Pressure 107/56 115/59 118/63 Blood Pressure [Left] O2 Sat by Pulse 100 100 100 Oximetry 06/16/17 06/16/17 06/16/17 07:30 07:45 08:00 Temperature 97.5 F L Pulse Rate 120 H 123 H 122 H Pulse Rate [ 122 H From Monitor] Respiratory 14 16 12 Rate Respiratory Rate [Left Anterior Leg] Respiratory Rate [Left Foot ] Blood Pressure 114/67 117/66 124/64 Blood Pressure [Left] O2 Sat by Pulse 100 100 100 Oximetry 06/16/17 06/16/17 06/16/17 08:15 08:30 08:45 Temperature Pulse Rate 121 H 121 H 122 H Pulse Rate [ From Monitor] Respiratory 14 15 16 Rate Respiratory Rate [Left Anterior Leg] Respiratory Rate [Left Foot ] Blood Pressure 120/67 128/70 123/78 Blood Pressure [Left] O2 Sat by Pulse 100 100 100 Oximetry 06/16/17 06/16/17 06/16/17 09:00 09:15 09:30 Temperature Pulse Rate 122 H 122 H 113 H Pulse Rate [ From Monitor] Respiratory 21 19 15 Rate Respiratory Rate [Left Anterior Leg] Respiratory Rate [Left Foot ] Blood Pressure 130/72 123/67 123/65 Blood Pressure [Left] O2 Sat by Pulse 100 100 100 Oximetry 06/16/17 06/16/17 06/16/17 09:45 10:00 10:16 Temperature Pulse Rate 123 H 125 H 121 H Pulse Rate [ From Monitor] Respiratory 17 18 18 Rate Respiratory 15 Rate [Left Anterior Leg] Respiratory 15 Rate [Left Foot ] Blood Pressure 130/71 122/67 131/78 Blood Pressure [Left] O2 Sat by Pulse 100 100 100 Oximetry 06/16/17 06/16/17 06/16/17 10:30 10:45 11:00 Temperature Pulse Rate 118 H 123 H 121 H Pulse Rate [ From Monitor] Respiratory 17 13 11 L Rate Respiratory Rate [Left Anterior Leg] Respiratory Rate [Left Foot ] Blood Pressure 129/66 118/62 123/56 Blood Pressure [Left] O2 Sat by Pulse 100 100 100 Oximetry 06/16/17 06/16/17 06/16/17 11:16 11:30 11:45 Temperature Pulse Rate 115 H 125 H 120 H Pulse Rate [ From Monitor] Respiratory 12 14 22 Rate Respiratory Rate [Left Anterior Leg] Respiratory Rate [Left Foot ] Blood Pressure 123/56 115/61 107/58 Blood Pressure [Left] O2 Sat by Pulse 100 100 100 Oximetry 06/16/17 06/16/17 06/16/17 12:00 12:15 12:30 Temperature Pulse Rate 120 H 118 H 115 H Pulse Rate [ 114 H From Monitor] Respiratory 16 17 17 Rate Respiratory Rate [Left Anterior Leg] Respiratory Rate [Left Foot ] Blood Pressure 103/56 107/56 101/66 Blood Pressure [Left] O2 Sat by Pulse 100 100 100 Oximetry 06/16/17 06/16/17 06/16/17 12:45 13:00 13:15 Temperature Pulse Rate 95 H 119 H 112 H Pulse Rate [ From Monitor] Respiratory 23 12 19 Rate Respiratory Rate [Left Anterior Leg] Respiratory Rate [Left Foot ] Blood Pressure 107/59 107/63 105/57 Blood Pressure [Left] O2 Sat by Pulse 100 100 100 Oximetry 06/16/17 06/16/17 06/16/17 13:19 13:30 13:45 Temperature Pulse Rate 111 H 109 H Pulse Rate [ From Monitor] Respiratory 17 19 20 Rate Respiratory Rate [Left Anterior Leg] Respiratory Rate [Left Foot ] Blood Pressure 101/61 105/53 Blood Pressure [Left] O2 Sat by Pulse 100 100 Oximetry 06/16/17 06/16/17 06/16/17 13:49 14:00 14:06 Temperature Pulse Rate 112 H Pulse Rate [ From Monitor] Respiratory 15 16 Rate Respiratory Rate [Left Anterior Leg] Respiratory Rate [Left Foot ] Blood Pressure 115/62 Blood Pressure [Left] O2 Sat by Pulse 100 100 Oximetry 06/16/17 06/16/17 06/16/17 14:15 14:30 14:46 Temperature Pulse Rate 111 H 112 H 120 H Pulse Rate [ From Monitor] Respiratory 19 18 16 Rate Respiratory Rate [Left Anterior Leg] Respiratory Rate [Left Foot ] Blood Pressure 117/66 116/64 117/67 Blood Pressure [Left] O2 Sat by Pulse 100 100 100 Oximetry 06/16/17 06/16/17 06/16/17 15:00 15:15 15:30 Temperature Pulse Rate 118 H 118 H 119 H Pulse Rate [ From Monitor] Respiratory 20 19 20 Rate Respiratory Rate [Left Anterior Leg] Respiratory Rate [Left Foot ] Blood Pressure 117/68 119/58 109/56 Blood Pressure [Left] O2 Sat by Pulse 100 100 100 Oximetry 06/16/17 06/16/17 06/16/17 15:45 16:00 16:15 Temperature Pulse Rate 115 H 116 H 116 H Pulse Rate [ From Monitor] Respiratory 18 21 21 Rate Respiratory Rate [Left Anterior Leg] Respiratory Rate [Left Foot ] Blood Pressure 110/61 113/64 117/62 Blood Pressure [Left] O2 Sat by Pulse 100 100 100 Oximetry 06/16/17 06/16/17 06/16/17 16:30 16:45 17:00 Temperature Pulse Rate 111 H 114 H 123 H Pulse Rate [ From Monitor] Respiratory 15 26 H 20 Rate Respiratory Rate [Left Anterior Leg] Respiratory Rate [Left Foot ] Blood Pressure 120/59 122/65 117/69 Blood Pressure [Left] O2 Sat by Pulse 100 100 100 Oximetry 06/16/17 06/16/17 06/16/17 17:15 17:28 17:30 Temperature Pulse Rate 118 H 113 H Pulse Rate [ From Monitor] Respiratory 27 H 22 20 Rate Respiratory Rate [Left Anterior Leg] Respiratory Rate [Left Foot ] Blood Pressure 124/70 121/65 Blood Pressure [Left] O2 Sat by Pulse 100 100 Oximetry 06/16/17 06/16/17 06/16/17 17:35 17:45 17:58 Temperature 99.0 F Pulse Rate 118 H Pulse Rate [ From Monitor] Respiratory 15 16 Rate Respiratory Rate [Left Anterior Leg] Respiratory Rate [Left Foot ] Blood Pressure 116/53 Blood Pressure [Left] O2 Sat by Pulse 100 Oximetry 06/16/17 06/16/17 06/16/17 18:00 18:15 18:30 Temperature Pulse Rate 98 H 110 H 116 H Pulse Rate [ From Monitor] Respiratory 20 18 17 Rate Respiratory Rate [Left Anterior Leg] Respiratory Rate [Left Foot ] Blood Pressure 102/49 105/57 105/54 Blood Pressure [Left] O2 Sat by Pulse 100 100 100 Oximetry 06/16/17 06/16/17 06/16/17 18:45 18:57 19:00 Temperature Pulse Rate 111 H 110 H 108 H Pulse Rate [ From Monitor] Respiratory 16 17 Rate Respiratory Rate [Left Anterior Leg] Respiratory Rate [Left Foot ] Blood Pressure 100/49 114/61 Blood Pressure [Left] O2 Sat by Pulse 100 100 Oximetry 06/16/17 06/16/17 06/16/17 19:15 19:30 19:45 Temperature 99.9 F H Pulse Rate 116 H 107 H 116 H Pulse Rate [ From Monitor] Respiratory 18 15 17 Rate Respiratory Rate [Left Anterior Leg] Respiratory Rate [Left Foot ] Blood Pressure 107/53 109/58 110/64 Blood Pressure [Left] O2 Sat by Pulse 100 100 100 Oximetry 06/16/17 06/16/17 06/16/17 19:53 20:00 20:15 Temperature Pulse Rate 108 H 104 H Pulse Rate [ 108 H From Monitor] Respiratory 22 18 Rate Respiratory Rate [Left Anterior Leg] Respiratory Rate [Left Foot ] Blood Pressure 109/60 107/59 Blood Pressure [Left] O2 Sat by Pulse 100 100 100 Oximetry 06/16/17 06/16/17 06/16/17 20:30 20:45 21:00 Temperature Pulse Rate 94 H 108 H 110 H Pulse Rate [ From Monitor] Respiratory 16 18 17 Rate Respiratory Rate [Left Anterior Leg] Respiratory Rate [Left Foot ] Blood Pressure 111/60 106/62 113/63 Blood Pressure [Left] O2 Sat by Pulse 100 100 100 Oximetry 06/16/17 06/16/17 06/16/17 21:08 21:15 21:30 Temperature Pulse Rate 96 H 107 H 107 H Pulse Rate [ From Monitor] Respiratory 18 17 15 Rate Respiratory Rate [Left Anterior Leg] Respiratory Rate [Left Foot ] Blood Pressure 113/63 113/60 118/68 Blood Pressure [Left] O2 Sat by Pulse 100 100 100 Oximetry 06/16/17 06/16/17 06/16/17 21:45 22:00 22:15 Temperature Pulse Rate 99 H 109 H 92 H Pulse Rate [ From Monitor] Respiratory 18 17 16 Rate Respiratory 18 Rate [Left Anterior Leg] Respiratory Rate [Left Foot ] Blood Pressure 117/63 114/60 106/56 Blood Pressure [Left] O2 Sat by Pulse 100 100 100 Oximetry 06/16/17 06/16/17 06/16/17 22:30 22:45 23:00 Temperature Pulse Rate 114 H 107 H 107 H Pulse Rate [ From Monitor] Respiratory 18 17 19 Rate Respiratory Rate [Left Anterior Leg] Respiratory Rate [Left Foot ] Blood Pressure 117/68 123/72 118/68 Blood Pressure [Left] O2 Sat by Pulse 100 100 100 Oximetry 06/16/17 06/16/17 06/16/17 23:15 23:30 23:45 Temperature Pulse Rate 92 H 111 H 99 H Pulse Rate [ From Monitor] Respiratory 16 15 19 Rate Respiratory Rate [Left Anterior Leg] Respiratory Rate [Left Foot ] Blood Pressure 109/64 117/69 118/68 Blood Pressure [Left] O2 Sat by Pulse 100 100 100 Oximetry 06/17/17 06/17/17 06/17/17 00:00 00:10 00:16 Temperature 98.8 F Pulse Rate 113 H 115 H Pulse Rate [ 113 H From Monitor] Respiratory 22 17 17 Rate Respiratory Rate [Left Anterior Leg] Respiratory Rate [Left Foot ] Blood Pressure 110/62 102/55 Blood Pressure [Left] O2 Sat by Pulse 100 100 Oximetry 06/17/17 06/17/17 06/17/17 00:30 00:45 01:00 Temperature Pulse Rate 100 H 106 H 114 H Pulse Rate [ From Monitor] Respiratory 21 19 20 Rate Respiratory Rate [Left Anterior Leg] Respiratory Rate [Left Foot ] Blood Pressure 102/50 99/58 98/55 Blood Pressure [Left] O2 Sat by Pulse 100 100 100 Oximetry 06/17/17 06/17/17 06/17/17 01:10 01:15 01:30 Temperature Pulse Rate 113 H 102 H Pulse Rate [ From Monitor] Respiratory 17 18 15 Rate Respiratory Rate [Left Anterior Leg] Respiratory Rate [Left Foot ] Blood Pressure 93/55 90/55 Blood Pressure [Left] O2 Sat by Pulse 100 100 Oximetry 06/17/17 06/17/17 06/17/17 01:45 02:00 02:15 Temperature Pulse Rate 113 H 109 H 118 H Pulse Rate [ From Monitor] Respiratory 18 16 21 Rate Respiratory Rate [Left Anterior Leg] Respiratory Rate [Left Foot ] Blood Pressure 98/54 104/54 91/51 Blood Pressure [Left] O2 Sat by Pulse 100 100 97 Oximetry 06/17/17 06/17/17 06/17/17 02:30 02:45 03:00 Temperature Pulse Rate 118 H 118 H 116 H Pulse Rate [ From Monitor] Respiratory 22 23 22 Rate Respiratory Rate [Left Anterior Leg] Respiratory Rate [Left Foot ] Blood Pressure 102/59 105/58 101/58 Blood Pressure [Left] O2 Sat by Pulse 100 100 99 Oximetry 06/17/17 06/17/17 06/17/17 03:15 03:30 03:45 Temperature Pulse Rate 116 H 117 H 117 H Pulse Rate [ From Monitor] Respiratory 20 26 H 19 Rate Respiratory Rate [Left Anterior Leg] Respiratory Rate [Left Foot ] Blood Pressure 102/58 107/63 119/69 Blood Pressure [Left] O2 Sat by Pulse 100 100 100 Oximetry 06/17/17 06/17/17 06/17/17 03:57 04:00 04:16 Temperature 100.0 F H Pulse Rate 113 H Pulse Rate [ 117 H From Monitor] Respiratory 19 22 Rate Respiratory Rate [Left Anterior Leg] Respiratory Rate [Left Foot ] Blood Pressure 124/74 124/74 Blood Pressure [Left] O2 Sat by Pulse 100 100 Oximetry 06/17/17 06/17/17 06/17/17 04:30 04:46 05:00 Temperature Pulse Rate 113 H 108 H 111 H Pulse Rate [ From Monitor] Respiratory 17 12 24 Rate Respiratory Rate [Left Anterior Leg] Respiratory Rate [Left Foot ] Blood Pressure 124/74 146/118 113/75 Blood Pressure [Left] O2 Sat by Pulse 100 99 100 Oximetry 06/17/17 06/17/17 06/17/17 05:15 05:30 05:45 Temperature Pulse Rate 114 H 110 H 109 H Pulse Rate [ From Monitor] Respiratory 13 16 18 Rate Respiratory Rate [Left Anterior Leg] Respiratory Rate [Left Foot ] Blood Pressure 114/53 131/78 132/79 Blood Pressure [Left] O2 Sat by Pulse 100 100 100 Oximetry 06/17/17 06/17/17 06/17/17 06:00 06:15 06:30 Temperature Pulse Rate 107 H 113 H 102 H Pulse Rate [ From Monitor] Respiratory 17 13 20 Rate Respiratory Rate [Left Anterior Leg] Respiratory Rate [Left Foot ] Blood Pressure 125/75 130/75 140/82 Blood Pressure [Left] O2 Sat by Pulse 100 100 100 Oximetry 06/17/17 06/17/17 06/17/17 06:33 06:45 07:00 Temperature Pulse Rate 112 H 113 H Pulse Rate [ From Monitor] Respiratory 14 17 16 Rate Respiratory Rate [Left Anterior Leg] Respiratory Rate [Left Foot ] Blood Pressure 133/75 124/75 Blood Pressure [Left] O2 Sat by Pulse 100 100 Oximetry 06/17/17 06/17/17 06/17/17 07:09 07:14 07:15 Temperature Pulse Rate 112 H Pulse Rate [ From Monitor] Respiratory 16 17 Rate Respiratory Rate [Left Anterior Leg] Respiratory Rate [Left Foot ] Blood Pressure 123/73 Blood Pressure [Left] O2 Sat by Pulse 100 98 Oximetry 06/17/17 06/17/17 06/17/17 07:30 07:45 08:00 Temperature 98 F Pulse Rate 107 H 111 H 96 H Pulse Rate [ 96 H From Monitor] Respiratory 16 16 18 Rate Respiratory Rate [Left Anterior Leg] Respiratory Rate [Left Foot ] Blood Pressure 129/74 114/68 119/61 Blood Pressure [Left] O2 Sat by Pulse 100 98 97 Oximetry 06/17/17 06/17/17 06/17/17 08:15 08:30 08:45 Temperature Pulse Rate 112 H 112 H 113 H Pulse Rate [ From Monitor] Respiratory 17 18 18 Rate Respiratory Rate [Left Anterior Leg] Respiratory Rate [Left Foot ] Blood Pressure 125/67 122/71 113/72 Blood Pressure [Left] O2 Sat by Pulse 100 100 100 Oximetry 06/17/17 06/17/17 06/17/17 09:00 09:15 09:30 Temperature Pulse Rate 112 H 89 124 H Pulse Rate [ From Monitor] Respiratory 18 20 17 Rate Respiratory Rate [Left Anterior Leg] Respiratory Rate [Left Foot ] Blood Pressure 119/71 122/68 127/71 Blood Pressure [Left] O2 Sat by Pulse 100 100 100 Oximetry 06/17/17 06/17/17 06/17/17 09:45 10:00 10:15 Temperature Pulse Rate 115 H 116 H 112 H Pulse Rate [ From Monitor] Respiratory 18 18 20 Rate Respiratory Rate [Left Anterior Leg] Respiratory Rate [Left Foot ] Blood Pressure 134/78 129/76 129/73 Blood Pressure [Left] O2 Sat by Pulse 100 100 100 Oximetry 06/17/17 06/17/17 06/17/17 10:30 10:45 11:00 Temperature Pulse Rate 113 H 112 H 96 H Pulse Rate [ From Monitor] Respiratory 13 20 17 Rate Respiratory Rate [Left Anterior Leg] Respiratory Rate [Left Foot ] Blood Pressure 124/80 127/76 130/74 Blood Pressure [Left] O2 Sat by Pulse 100 100 100 Oximetry 06/17/17 06/17/17 06/17/17 11:15 11:30 11:45 Temperature Pulse Rate 110 H 116 H 102 H Pulse Rate [ From Monitor] Respiratory 29 H 20 15 Rate Respiratory Rate [Left Anterior Leg] Respiratory Rate [Left Foot ] Blood Pressure 131/74 128/76 118/76 Blood Pressure [Left] O2 Sat by Pulse 100 100 100 Oximetry 06/17/17 06/17/17 06/17/17 12:00 12:15 12:30 Temperature 98.6 F Pulse Rate 113 H 116 H 96 H Pulse Rate [ 113 H From Monitor] Respiratory 16 16 18 Rate Respiratory Rate [Left Anterior Leg] Respiratory Rate [Left Foot ] Blood Pressure 128/72 122/74 131/83 Blood Pressure [Left] O2 Sat by Pulse 100 100 100 Oximetry 06/17/17 06/17/17 06/17/17 12:46 13:00 13:15 Temperature Pulse Rate 116 H 113 H 93 H Pulse Rate [ From Monitor] Respiratory 16 12 16 Rate Respiratory Rate [Left Anterior Leg] Respiratory Rate [Left Foot ] Blood Pressure 132/55 124/76 109/70 Blood Pressure [Left] O2 Sat by Pulse 100 100 100 Oximetry 06/17/17 06/17/17 06/17/17 13:30 13:45 14:00 Temperature Pulse Rate 91 H 93 H 114 H Pulse Rate [ From Monitor] Respiratory 16 21 10 L Rate Respiratory Rate [Left Anterior Leg] Respiratory Rate [Left Foot ] Blood Pressure 104/68 107/62 136/72 Blood Pressure [Left] O2 Sat by Pulse 100 100 100 Oximetry 06/17/17 06/17/17 06/17/17 14:15 14:30 14:45 Temperature Pulse Rate 93 H 92 H 94 H Pulse Rate [ From Monitor] Respiratory 14 19 15 Rate Respiratory Rate [Left Anterior Leg] Respiratory Rate [Left Foot ] Blood Pressure 128/74 121/76 131/72 Blood Pressure [Left] O2 Sat by Pulse 100 100 100 Oximetry 06/17/17 06/17/17 06/17/17 15:00 15:15 15:30 Temperature Pulse Rate 91 H 112 H 116 H Pulse Rate [ From Monitor] Respiratory 16 16 15 Rate Respiratory Rate [Left Anterior Leg] Respiratory Rate [Left Foot ] Blood Pressure 125/67 137/69 141/77 Blood Pressure [Left] O2 Sat by Pulse 100 100 100 Oximetry 06/17/17 06/17/17 06/17/17 15:45 16:00 16:15 Temperature Pulse Rate 99 H 117 H 92 H Pulse Rate [ From Monitor] Respiratory 18 18 15 Rate Respiratory Rate [Left Anterior Leg] Respiratory Rate [Left Foot ] Blood Pressure 142/66 144/85 142/74 Blood Pressure [Left] O2 Sat by Pulse 100 100 100 Oximetry 06/17/17 06/17/17 06/17/17 16:30 16:45 17:00 Temperature Pulse Rate 101 H 96 H 111 H Pulse Rate [ From Monitor] Respiratory 15 18 16 Rate Respiratory Rate [Left Anterior Leg] Respiratory Rate [Left Foot ] Blood Pressure 134/67 137/75 121/75 Blood Pressure [Left] O2 Sat by Pulse 100 100 100 Oximetry 06/17/17 06/17/17 06/17/17 17:15 17:30 17:46 Temperature Pulse Rate 99 H 99 H 109 H Pulse Rate [ From Monitor] Respiratory 17 20 11 L Rate Respiratory Rate [Left Anterior Leg] Respiratory Rate [Left Foot ] Blood Pressure 121/65 133/68 133/68 Blood Pressure [Left] O2 Sat by Pulse 100 100 98 Oximetry 06/17/17 06/17/17 06/17/17 18:00 18:15 18:25 Temperature Pulse Rate 99 H 98 H Pulse Rate [ From Monitor] Respiratory 21 21 20 Rate Respiratory Rate [Left Anterior Leg] Respiratory Rate [Left Foot ] Blood Pressure 133/75 129/68 Blood Pressure [Left] O2 Sat by Pulse 100 100 Oximetry 06/17/17 06/17/17 06/17/17 18:30 18:45 18:55 Temperature Pulse Rate 99 H 97 H Pulse Rate [ From Monitor] Respiratory 17 18 27 H Rate Respiratory Rate [Left Anterior Leg] Respiratory Rate [Left Foot ] Blood Pressure 121/61 120/58 Blood Pressure [Left] O2 Sat by Pulse 100 100 Oximetry 06/17/17 06/17/17 06/17/17 19:00 19:15 19:30 Temperature Pulse Rate 98 H 98 H 95 H Pulse Rate [ From Monitor] Respiratory 18 16 18 Rate Respiratory Rate [Left Anterior Leg] Respiratory Rate [Left Foot ] Blood Pressure 119/65 129/63 134/63 Blood Pressure [Left] O2 Sat by Pulse 100 100 100 Oximetry 06/17/17 06/17/17 06/17/17 19:45 19:47 20:00 Temperature 98.4 F Pulse Rate 116 H 117 H Pulse Rate [ 119 H From Monitor] Respiratory 16 21 Rate Respiratory Rate [Left Anterior Leg] Respiratory Rate [Left Foot ] Blood Pressure 137/68 128/72 Blood Pressure [Left] O2 Sat by Pulse 100 100 Oximetry 06/17/17 06/17/17 06/17/17 20:05 20:15 20:30 Temperature Pulse Rate 98 H 103 H Pulse Rate [ From Monitor] Respiratory 18 21 Rate Respiratory Rate [Left Anterior Leg] Respiratory Rate [Left Foot ] Blood Pressure 129/71 140/87 Blood Pressure [Left] O2 Sat by Pulse 100 100 100 Oximetry 06/17/17 06/17/17 06/17/17 20:45 20:58 21:00 Temperature Pulse Rate 101 H 101 H Pulse Rate [ From Monitor] Respiratory 23 27 H 18 Rate Respiratory Rate [Left Anterior Leg] Respiratory Rate [Left Foot ] Blood Pressure 125/79 114/67 Blood Pressure [Left] O2 Sat by Pulse 100 100 Oximetry 06/17/17 06/17/17 06/17/17 21:15 21:30 21:45 Temperature Pulse Rate 98 H 118 H 95 H Pulse Rate [ From Monitor] Respiratory 15 19 15 Rate Respiratory Rate [Left Anterior Leg] Respiratory Rate [Left Foot ] Blood Pressure 124/68 134/71 133/70 Blood Pressure [Left] O2 Sat by Pulse 100 100 100 Oximetry 06/17/17 06/17/17 06/17/17 22:00 22:15 22:30 Temperature Pulse Rate 101 H 125 H 115 H Pulse Rate [ From Monitor] Respiratory 16 13 14 Rate Respiratory 17 Rate [Left Anterior Leg] Respiratory 17 Rate [Left Foot ] Blood Pressure 129/67 123/73 117/71 Blood Pressure [Left] O2 Sat by Pulse 100 100 100 Oximetry 06/17/17 06/17/17 06/17/17 22:45 22:46 23:00 Temperature Pulse Rate 105 H 108 H 101 H Pulse Rate [ From Monitor] Respiratory 13 14 15 Rate Respiratory Rate [Left Anterior Leg] Respiratory Rate [Left Foot ] Blood Pressure 110/68 110/68 113/67 Blood Pressure [Left] O2 Sat by Pulse 100 100 100 Oximetry 06/17/17 06/17/17 06/17/17 23:15 23:30 23:39 Temperature 98 F Pulse Rate 100 H 103 H Pulse Rate [ From Monitor] Respiratory 14 14 Rate Respiratory Rate [Left Anterior Leg] Respiratory Rate [Left Foot ] Blood Pressure 106/59 109/63 Blood Pressure [Left] O2 Sat by Pulse 100 100 Oximetry 06/17/17 06/18/17 06/18/17 23:45 00:00 00:15 Temperature Pulse Rate 120 H 114 H 99 H Pulse Rate [ 102 H From Monitor] Respiratory 13 18 16 Rate Respiratory Rate [Left Anterior Leg] Respiratory Rate [Left Foot ] Blood Pressure 121/69 113/68 121/62 Blood Pressure [Left] O2 Sat by Pulse 100 100 100 Oximetry 06/18/17 06/18/17 06/18/17 00:30 00:45 01:00 Temperature Pulse Rate 117 H 106 H 95 H Pulse Rate [ From Monitor] Respiratory 17 15 14 Rate Respiratory Rate [Left Anterior Leg] Respiratory Rate [Left Foot ] Blood Pressure 124/74 124/65 134/73 Blood Pressure [Left] O2 Sat by Pulse 100 100 100 Oximetry 06/18/17 06/18/17 06/18/17 01:16 01:30 01:45 Temperature Pulse Rate 119 H 114 H 92 H Pulse Rate [ From Monitor] Respiratory 14 16 16 Rate Respiratory Rate [Left Anterior Leg] Respiratory Rate [Left Foot ] Blood Pressure 134/73 121/81 121/20 Blood Pressure [Left] O2 Sat by Pulse 100 100 100 Oximetry 06/18/17 06/18/17 06/18/17 02:00 02:15 02:30 Temperature Pulse Rate 113 H 97 H 115 H Pulse Rate [ From Monitor] Respiratory 16 17 17 Rate Respiratory Rate [Left Anterior Leg] Respiratory Rate [Left Foot ] Blood Pressure 119/71 119/71 140/86 Blood Pressure [Left] O2 Sat by Pulse 98 100 100 Oximetry 06/18/17 06/18/17 06/18/17 02:45 03:01 03:15 Temperature Pulse Rate 117 H 100 H 99 H Pulse Rate [ From Monitor] Respiratory 18 22 18 Rate Respiratory Rate [Left Anterior Leg] Respiratory Rate [Left Foot ] Blood Pressure 140/86 130/69 130/69 Blood Pressure [Left] O2 Sat by Pulse 100 100 99 Oximetry 06/18/17 06/18/17 06/18/17 03:25 03:30 03:45 Temperature 99.8 F H Pulse Rate 99 H 100 H Pulse Rate [ From Monitor] Respiratory 18 18 14 Rate Respiratory Rate [Left Anterior Leg] Respiratory Rate [Left Foot ] Blood Pressure 126/62 126/62 Blood Pressure [Left] O2 Sat by Pulse 100 100 Oximetry 06/18/17 06/18/17 06/18/17 03:55 04:00 04:15 Temperature Pulse Rate 100 H 102 H Pulse Rate [ 98 H From Monitor] Respiratory 19 15 14 Rate Respiratory Rate [Left Anterior Leg] Respiratory Rate [Left Foot ] Blood Pressure 129/72 129/72 Blood Pressure [Left] O2 Sat by Pulse 100 100 Oximetry 06/18/17 06/18/17 06/18/17 04:30 04:45 05:01 Temperature Pulse Rate 122 H 99 H 97 H Pulse Rate [ From Monitor] Respiratory 16 15 17 Rate Respiratory Rate [Left Anterior Leg] Respiratory Rate [Left Foot ] Blood Pressure 115/67 129/72 117/63 Blood Pressure [Left] O2 Sat by Pulse 100 100 100 Oximetry 06/18/17 06/18/17 06/18/17 05:15 05:31 05:45 Temperature Pulse Rate 115 H 99 H 102 H Pulse Rate [ From Monitor] Respiratory 16 17 18 Rate Respiratory Rate [Left Anterior Leg] Respiratory Rate [Left Foot ] Blood Pressure 117/63 133/77 133/77 Blood Pressure [Left] O2 Sat by Pulse 100 99 100 Oximetry 06/18/17 06/18/17 06/18/17 06:00 06:15 07:41 Temperature Pulse Rate 101 H 119 H 116 H Pulse Rate [ From Monitor] Respiratory 16 16 18 Rate Respiratory Rate [Left Anterior Leg] Respiratory Rate [Left Foot ] Blood Pressure 114/70 121/66 126/70 Blood Pressure [Left] O2 Sat by Pulse 100 98 94 Oximetry 06/18/17 06/18/17 06/18/17 07:45 07:59 08:00 Temperature 98.6 F Pulse Rate 104 H 116 H Pulse Rate [ From Monitor] Respiratory 13 16 Rate Respiratory Rate [Left Anterior Leg] Respiratory Rate [Left Foot ] Blood Pressure 126/70 137/81 Blood Pressure [Left] O2 Sat by Pulse 99 97 99 Oximetry 06/18/17 06/18/17 06/18/17 08:15 08:31 08:45 Temperature Pulse Rate 116 H 100 H 115 H Pulse Rate [ From Monitor] Respiratory 16 19 15 Rate Respiratory Rate [Left Anterior Leg] Respiratory Rate [Left Foot ] Blood Pressure 137/81 137/81 137/81 Blood Pressure [Left] O2 Sat by Pulse 97 100 98 Oximetry 06/18/17 06/18/17 06/18/17 09:01 09:15 09:31 Temperature Pulse Rate 120 H 116 H 99 H Pulse Rate [ From Monitor] Respiratory 16 19 18 Rate Respiratory Rate [Left Anterior Leg] Respiratory Rate [Left Foot ] Blood Pressure 147/91 147/91 147/91 Blood Pressure [Left] O2 Sat by Pulse 100 87 100 Oximetry 06/18/17 06/18/17 06/18/17 09:45 10:00 10:15 Temperature Pulse Rate 119 H 115 H 114 H Pulse Rate [ From Monitor] Respiratory 16 15 14 Rate Respiratory Rate [Left Anterior Leg] Respiratory Rate [Left Foot ] Blood Pressure 147/91 145/82 145/82 Blood Pressure [Left] O2 Sat by Pulse 100 100 100 Oximetry 06/18/17 06/18/17 06/18/17 10:31 10:45 11:00 Temperature Pulse Rate 120 H 115 H 121 H Pulse Rate [ From Monitor] Respiratory 16 16 15 Rate Respiratory Rate [Left Anterior Leg] Respiratory Rate [Left Foot ] Blood Pressure 145/82 145/82 143/76 Blood Pressure [Left] O2 Sat by Pulse 100 100 99 Oximetry 06/18/17 06/18/17 06/18/17 11:15 11:31 11:45 Temperature Pulse Rate 119 H 116 H 119 H Pulse Rate [ From Monitor] Respiratory 18 15 19 Rate Respiratory Rate [Left Anterior Leg] Respiratory Rate [Left Foot ] Blood Pressure 143/76 143/76 143/76 Blood Pressure [Left] O2 Sat by Pulse 99 100 98 Oximetry 06/18/17 06/18/17 06/18/17 12:00 12:15 12:31 Temperature 98.3 F Pulse Rate 120 H 116 H 114 H Pulse Rate [ From Monitor] Respiratory 18 17 18 Rate Respiratory Rate [Left Anterior Leg] Respiratory Rate [Left Foot ] Blood Pressure 150/94 150/94 150/94 Blood Pressure [Left] O2 Sat by Pulse 100 100 100 Oximetry 06/18/17 06/18/17 06/18/17 12:45 13:00 13:15 Temperature Pulse Rate 102 H 120 H 119 H Pulse Rate [ From Monitor] Respiratory 16 17 17 Rate Respiratory Rate [Left Anterior Leg] Respiratory Rate [Left Foot ] Blood Pressure 150/94 154/79 154/79 Blood Pressure [Left] O2 Sat by Pulse 99 99 99 Oximetry 06/18/17 06/18/17 06/18/17 13:21 13:26 13:31 Temperature Pulse Rate 103 H 115 H Pulse Rate [ From Monitor] Respiratory 20 16 Rate Respiratory Rate [Left Anterior Leg] Respiratory Rate [Left Foot ] Blood Pressure 154/79 154/79 Blood Pressure [Left] O2 Sat by Pulse 99 Oximetry 06/18/17 06/18/17 06/18/17 13:45 14:00 14:15 Temperature Pulse Rate 122 H 118 H 103 H Pulse Rate [ From Monitor] Respiratory 19 17 24 Rate Respiratory Rate [Left Anterior Leg] Respiratory Rate [Left Foot ] Blood Pressure 154/79 138/76 138/76 Blood Pressure [Left] O2 Sat by Pulse 100 100 100 Oximetry 06/18/17 06/18/17 06/18/17 14:31 14:45 15:00 Temperature Pulse Rate 113 H 113 H 115 H Pulse Rate [ From Monitor] Respiratory 15 16 22 Rate Respiratory Rate [Left Anterior Leg] Respiratory Rate [Left Foot ] Blood Pressure 138/76 138/76 128/80 Blood Pressure [Left] O2 Sat by Pulse 99 99 99 Oximetry 06/18/17 06/18/17 06/18/17 15:06 15:15 15:31 Temperature Pulse Rate 111 H 113 H Pulse Rate [ From Monitor] Respiratory 21 18 17 Rate Respiratory Rate [Left Anterior Leg] Respiratory Rate [Left Foot ] Blood Pressure 128/80 128/80 Blood Pressure [Left] O2 Sat by Pulse 97 98 Oximetry 06/18/17 06/18/17 06/18/17 15:45 16:00 16:15 Temperature 98.8 F Pulse Rate 114 H 116 H 114 H Pulse Rate [ From Monitor] Respiratory 15 13 14 Rate Respiratory Rate [Left Anterior Leg] Respiratory Rate [Left Foot ] Blood Pressure 128/80 123/64 123/64 Blood Pressure [Left] O2 Sat by Pulse 99 95 99 Oximetry 06/18/17 06/18/17 06/18/17 16:30 16:45 17:00 Temperature Pulse Rate 96 H 116 H 111 H Pulse Rate [ From Monitor] Respiratory 13 12 16 Rate Respiratory Rate [Left Anterior Leg] Respiratory Rate [Left Foot ] Blood Pressure 123/64 123/64 127/72 Blood Pressure [Left] O2 Sat by Pulse 100 100 98 Oximetry 06/18/17 06/18/17 06/18/17 17:15 17:31 17:45 Temperature Pulse Rate 115 H 98 H 118 H Pulse Rate [ From Monitor] Respiratory 13 13 13 Rate Respiratory Rate [Left Anterior Leg] Respiratory Rate [Left Foot ] Blood Pressure 127/72 127/72 127/72 Blood Pressure [Left] O2 Sat by Pulse 100 100 98 Oximetry 06/18/17 06/18/17 06/18/17 18:00 18:29 18:30 Temperature Pulse Rate 89 82 Pulse Rate [ From Monitor] Respiratory 15 Rate Respiratory Rate [Left Anterior Leg] Respiratory Rate [Left Foot ] Blood Pressure 135/74 142/70 Blood Pressure [Left] O2 Sat by Pulse 95 92 Oximetry 06/18/17 06/18/17 06/18/17 18:45 19:00 19:15 Temperature Pulse Rate 113 H 111 H 116 H Pulse Rate [ From Monitor] Respiratory 16 11 L 13 Rate Respiratory Rate [Left Anterior Leg] Respiratory Rate [Left Foot ] Blood Pressure 142/70 133/80 142/70 Blood Pressure [Left] O2 Sat by Pulse 97 94 98 Oximetry 06/18/17 06/18/17 06/18/17 19:31 19:45 19:50 Temperature 98.7 F Pulse Rate 119 H 117 H Pulse Rate [ From Monitor] Respiratory 16 17 Rate Respiratory Rate [Left Anterior Leg] Respiratory Rate [Left Foot ] Blood Pressure 142/70 142/70 Blood Pressure [Left] O2 Sat by Pulse 97 97 Oximetry 06/18/17 06/18/17 06/18/17 19:51 20:00 21:00 Temperature Pulse Rate 117 H 113 H 115 H Pulse Rate [ From Monitor] Respiratory 14 15 22 Rate Respiratory Rate [Left Anterior Leg] Respiratory Rate [Left Foot ] Blood Pressure 142/70 134/72 128/71 Blood Pressure [Left] O2 Sat by Pulse 97 95 97 Oximetry 06/18/17 06/18/17 06/18/17 22:00 23:00 23:43 Temperature Pulse Rate 113 H 117 H 142 H Pulse Rate [ From Monitor] Respiratory 18 15 Rate Respiratory Rate [Left Anterior Leg] Respiratory Rate [Left Foot ] Blood Pressure 121/61 131/60 131/60 Blood Pressure [Left] O2 Sat by Pulse 94 99 Oximetry 06/18/17 06/19/17 06/19/17 23:45 00:00 00:20 Temperature 98.1 F Pulse Rate 119 H Pulse Rate [ From Monitor] Respiratory 21 17 Rate Respiratory Rate [Left Anterior Leg] Respiratory Rate [Left Foot ] Blood Pressure 125/72 Blood Pressure [Left] O2 Sat by Pulse 96 Oximetry 08/08/17 08/08/17 08/08/17 00:45 01:00 02:00 Temperature Pulse Rate 113 H 112 H Pulse Rate [ From Monitor] Respiratory 17 22 16 Rate Respiratory Rate [Left Anterior Leg] Respiratory Rate [Left Foot ] Blood Pressure 118/71 124/75 Blood Pressure [Left] O2 Sat by Pulse 98 99 Oximetry 06/19/17 06/19/17 06/19/17 03:00 04:13 04:46 Temperature 97.9 F Pulse Rate 98 H 108 H Pulse Rate [ From Monitor] Respiratory 14 16 Rate Respiratory Rate [Left Anterior Leg] Respiratory Rate [Left Foot ] Blood Pressure 112/60 114/70 Blood Pressure [Left] O2 Sat by Pulse 100 Oximetry Lab Results 06/12/17 06/12/17 06/12/17 Range/Units 18:01 18:17 18:17 WBC 15.8 H (4.5-11.0) K/mm3 RBC 2.63 L (3.65-5.03) M/mm3 Hgb 7.7 L (11.8-15.2) gm/dl Hct 24.2 L (35.5-45.6) % MCV 92 (84-94) fl MCH 29 (28-32) pg MCHC 32 (32-34) % RDW 16.4 H (13.2-15.2) % Plt Count 263 (140-440) K/mm3 Lymph % (Auto) 18.1 (13.4-35.0) % [place] % (Auto) 15.3 H (0.0-7.3) % Eos % (Auto) 1.2 (0.0-4.3) % Baso % (Auto) 0.3 (0.0-1.8) % Lymph # 2.9 (1.2-5.4) K/mm3 [place] # 2.4 H (0.0-0.8) K/mm3 Eos # 0.2 (0.0-0.4) K/mm3 Baso # 0.1 (0.0-0.1) K/mm3 Add Manual Diff Total Counted Seg Neutrophils % 65.1 (40.0-70.0) % Seg Neuts % (Manual) (40.0-70.0) % Band Neutrophils % % Lymphocytes % (Manual) (13.4-35.0) % Reactive Lymphs % (Man) % Monocytes % (Manual) (0.0-7.3) % Eosinophils % (Manual) (0.0-4.3) % Basophils % (Manual) (0.0-1.8) % Metamyelocytes % % Myelocytes % % Promyelocytes % % Blast Cells % % Nucleated RBC % Seg Neutrophils # 10.3 H (1.8-7.7) K/mm3 Seg Neutrophils # Man (1.8-7.7) K/mm3 Band Neutrophils # K/mm3 Lymphocytes # (Manual) (1.2-5.4) K/mm3 Abs React Lymphs (Man) K/mm3 Monocytes # (Manual) (0.0-0.8) K/mm3 Eosinophils # (Manual) (0.0-0.4) K/mm3 Basophils # (Manual) (0.0-0.1) K/mm3 Metamyelocytes # K/mm3 Myelocytes # K/mm3 Promyelocytes # K/mm3 Blast Cells # K/mm3 WBC Morphology Hypersegmented Neuts Hyposegmented Neuts Hypogranular Neuts Smudge Cells Toxic Granulation Toxic Vacuolation Dohle Bodies Pelger-Huet Anomaly Gisella Rods Platelet Estimate Clumped Platelets Plt Clumps, EDTA Large Platelets Giant Platelets Platelet Satelliting Plt Morphology Comment RBC Morphology Dimorphic RBCs Polychromasia Hypochromasia Poikilocytosis Anisocytosis Microcytosis Macrocytosis Spherocytes Pappenheimer Bodies Sickle Cells Target Cells Tear Drop Cells Ovalocytes Helmet Cells [place] Bodies [place] Rings [place] Cells Bite Cells Crenated Cell Elliptocytes Acanthocytes (Spur) Rouleaux Hemoglobin C Crystals Schistocytes Malaria parasites Alex Bodies Hem Pathologist Commnt PT 14.9 (12.2-14.9) Sec. INR 1.18 H (0.87-1.13) APTT (24.2-36.6) Sec. POC ABG pH (7.35-7.45) POC ABG pCO2 (35-45) POC ABG pO2 (80-105) POC ABG HCO3 POC ABG Total CO2 POC ABG O2 Sat POC ABG Base Excess VBG pH (7.320-7.420) FiO2 % Sodium (137-145) mmol/L Potassium (3.6-5.0) mmol/L Chloride (98-107) mmol/L Carbon Dioxide (22-30) mmol/L Anion Gap mmol/L BUN (9-20) mg/dL Creatinine (0.8-1.5) mg/dL Estimated GFR ml/min BUN/Creatinine Ratio % Glucose (75-100) mg/dL POC Glucose (70-105) Lactic Acid (0.7-2.0) mmol/L Calcium (8.4-10.2) mg/dL Magnesium (1.7-2.3) mg/dL Total Bilirubin (0.1-1.2) mg/dL AST (5-40) units/L ALT (7-56) units/L Alkaline Phosphatase (35-129) units/L Total Protein (6.3-8.2) g/dL Albumin (3.9-5) g/dL Albumin/Globulin Ratio % Urine Color (Yellow) Urine Turbidity (Clear) Urine pH (5.0-7.0) Ur Specific [place] (1.003-1.030) Urine Protein (Negative) mg/dL Urine Glucose (UA) (Negative) mg/dL Urine Ketones (Negative) mg/dL Urine Blood (Negative) Urine Nitrite (Negative) Urine Bilirubin (Negative) Urine Urobilinogen (<2.0) mg/dL Ur Leukocyte Esterase (Negative) Urine WBC (Auto) (0.0-6.0) /HPF Urine RBC (Auto) (0.0-6.0) /HPF Vancomycin Trough (5.0-20.0) ug/mL Blood Type B POSITIVE Antibody Screen TNR MI Antibody Screen Negative Crossmatch See Detail 06/12/17 06/12/17 06/12/17 Range/Units 18:17 18:17 18:17 WBC (4.5-11.0) K/mm3 RBC (3.65-5.03) M/mm3 Hgb (11.8-15.2) gm/dl Hct (35.5-45.6) % MCV (84-94) fl MCH (28-32) pg MCHC (32-34) % RDW (13.2-15.2) % Plt Count (140-440) K/mm3 Lymph % (Auto) (13.4-35.0) % [place] % (Auto) (0.0-7.3) % Eos % (Auto) (0.0-4.3) % Baso % (Auto) (0.0-1.8) % Lymph # (1.2-5.4) K/mm3 [place] # (0.0-0.8) K/mm3 Eos # (0.0-0.4) K/mm3 Baso # (0.0-0.1) K/mm3 Add Manual Diff Total Counted Seg Neutrophils % (40.0-70.0) % Seg Neuts % (Manual) (40.0-70.0) % Band Neutrophils % % Lymphocytes % (Manual) (13.4-35.0) % Reactive Lymphs % (Man) % Monocytes % (Manual) (0.0-7.3) % Eosinophils % (Manual) (0.0-4.3) % Basophils % (Manual) (0.0-1.8) % Metamyelocytes % % Myelocytes % % Promyelocytes % % Blast Cells % % Nucleated RBC % Seg Neutrophils # (1.8-7.7) K/mm3 Seg Neutrophils # Man (1.8-7.7) K/mm3 Band Neutrophils # K/mm3 Lymphocytes # (Manual) (1.2-5.4) K/mm3 Abs React Lymphs (Man) K/mm3 Monocytes # (Manual) (0.0-0.8) K/mm3 Eosinophils # (Manual) (0.0-0.4) K/mm3 Basophils # (Manual) (0.0-0.1) K/mm3 Metamyelocytes # K/mm3 Myelocytes # K/mm3 Promyelocytes # K/mm3 Blast Cells # K/mm3 WBC Morphology Hypersegmented Neuts Hyposegmented Neuts Hypogranular Neuts Smudge Cells Toxic Granulation Toxic Vacuolation Dohle Bodies Pelger-Huet Anomaly Gisella Rods Platelet Estimate Clumped Platelets Plt Clumps, EDTA Large Platelets Giant Platelets Platelet Satelliting Plt Morphology Comment RBC Morphology Dimorphic RBCs Polychromasia Hypochromasia Poikilocytosis Anisocytosis Microcytosis Macrocytosis Spherocytes Pappenheimer Bodies Sickle Cells Target Cells Tear Drop Cells Ovalocytes Helmet Cells [place] Bodies [place] Rings [place] Cells Bite Cells Crenated Cell Elliptocytes Acanthocytes (Spur) Rouleaux Hemoglobin C Crystals Schistocytes Malaria parasites Alex Bodies Hem Pathologist Commnt PT (12.2-14.9) Sec. INR (0.87-1.13) APTT (24.2-36.6) Sec. POC ABG pH (7.35-7.45) POC ABG pCO2 (35-45) POC ABG pO2 (80-105) POC ABG HCO3 POC ABG Total CO2 POC ABG O2 Sat POC ABG Base Excess VBG pH 7.325 (7.320-7.420) FiO2 % Sodium 127 L D (137-145) mmol/L Potassium 4.3 (3.6-5.0) mmol/L Chloride 87.4 L (98-107) mmol/L Carbon Dioxide 22 (22-30) mmol/L Anion Gap 22 mmol/L BUN 34 H (9-20) mg/dL Creatinine 1.6 H (0.8-1.5) mg/dL Estimated GFR 51 ml/min BUN/Creatinine Ratio 21.25 % Glucose 487 H (75-100) mg/dL POC Glucose (70-105) Lactic Acid 3.70 H* (0.7-2.0) mmol/L Calcium 8.1 L (8.4-10.2) mg/dL Magnesium (1.7-2.3) mg/dL Total Bilirubin 0.40 (0.1-1.2) mg/dL AST 23 (5-40) units/L ALT 17 (7-56) units/L Alkaline Phosphatase 71 (35-129) units/L Total Protein 5.8 L (6.3-8.2) g/dL Albumin 2.3 L (3.9-5) g/dL Albumin/Globulin Ratio 0.7 % Urine Color (Yellow) Urine Turbidity (Clear) Urine pH (5.0-7.0) Ur Specific [place] (1.003-1.030) Urine Protein (Negative) mg/dL Urine Glucose (UA) (Negative) mg/dL Urine Ketones (Negative) mg/dL Urine Blood (Negative) Urine Nitrite (Negative) Urine Bilirubin (Negative) Urine Urobilinogen (<2.0) mg/dL Ur Leukocyte Esterase (Negative) Urine WBC (Auto) (0.0-6.0) /HPF Urine RBC (Auto) (0.0-6.0) /HPF Vancomycin Trough (5.0-20.0) ug/mL Blood Type Antibody Screen MI Antibody Screen Crossmatch 06/12/17 06/13/17 06/13/17 Range/Units 19:11 00:18 05:20 WBC (4.5-11.0) K/mm3 RBC (3.65-5.03) M/mm3 Hgb 6.3 L 7.1 L (11.8-15.2) gm/dl Hct 19.6 L* 22.1 L (35.5-45.6) % MCV (84-94) fl MCH (28-32) pg MCHC (32-34) % RDW (13.2-15.2) % Plt Count (140-440) K/mm3 Lymph % (Auto) (13.4-35.0) % [place] % (Auto) (0.0-7.3) % Eos % (Auto) (0.0-4.3) % Baso % (Auto) (0.0-1.8) % Lymph # (1.2-5.4) K/mm3 [place] # (0.0-0.8) K/mm3 Eos # (0.0-0.4) K/mm3 Baso # (0.0-0.1) K/mm3 Add Manual Diff Total Counted Seg Neutrophils % (40.0-70.0) % Seg Neuts % (Manual) (40.0-70.0) % Band Neutrophils % % Lymphocytes % (Manual) (13.4-35.0) % Reactive Lymphs % (Man) % Monocytes % (Manual) (0.0-7.3) % Eosinophils % (Manual) (0.0-4.3) % Basophils % (Manual) (0.0-1.8) % Metamyelocytes % % Myelocytes % % Promyelocytes % % Blast Cells % % Nucleated RBC % Seg Neutrophils # (1.8-7.7) K/mm3 Seg Neutrophils # Man (1.8-7.7) K/mm3 Band Neutrophils # K/mm3 Lymphocytes # (Manual) (1.2-5.4) K/mm3 Abs React Lymphs (Man) K/mm3 Monocytes # (Manual) (0.0-0.8) K/mm3 Eosinophils # (Manual) (0.0-0.4) K/mm3 Basophils # (Manual) (0.0-0.1) K/mm3 Metamyelocytes # K/mm3 Myelocytes # K/mm3 Promyelocytes # K/mm3 Blast Cells # K/mm3 WBC Morphology Hypersegmented Neuts Hyposegmented Neuts Hypogranular Neuts Smudge Cells Toxic Granulation Toxic Vacuolation Dohle Bodies Pelger-Huet Anomaly Gisella Rods Platelet Estimate Clumped Platelets Plt Clumps, EDTA Large Platelets Giant Platelets Platelet Satelliting Plt Morphology Comment RBC Morphology Dimorphic RBCs Polychromasia Hypochromasia Poikilocytosis Anisocytosis Microcytosis Macrocytosis Spherocytes Pappenheimer Bodies Sickle Cells Target Cells Tear Drop Cells Ovalocytes Helmet Cells [place] Bodies [place] Rings [place] Cells Bite Cells Crenated Cell Elliptocytes Acanthocytes (Spur) Rouleaux Hemoglobin C Crystals Schistocytes Malaria parasites Alex Bodies Hem Pathologist Commnt PT (12.2-14.9) Sec. INR (0.87-1.13) APTT (24.2-36.6) Sec. POC ABG pH (7.35-7.45) POC ABG pCO2 (35-45) POC ABG pO2 (80-105) POC ABG HCO3 POC ABG Total CO2 POC ABG O2 Sat POC ABG Base Excess VBG pH (7.320-7.420) FiO2 % Sodium (137-145) mmol/L Potassium (3.6-5.0) mmol/L Chloride (98-107) mmol/L Carbon Dioxide (22-30) mmol/L Anion Gap mmol/L BUN (9-20) mg/dL Creatinine (0.8-1.5) mg/dL Estimated GFR ml/min BUN/Creatinine Ratio % Glucose (75-100) mg/dL POC Glucose (70-105) Lactic Acid (0.7-2.0) mmol/L Calcium (8.4-10.2) mg/dL Magnesium (1.7-2.3) mg/dL Total Bilirubin (0.1-1.2) mg/dL AST (5-40) units/L ALT (7-56) units/L Alkaline Phosphatase (35-129) units/L Total Protein (6.3-8.2) g/dL Albumin (3.9-5) g/dL Albumin/Globulin Ratio % Urine Color Yellow (Yellow) Urine Turbidity Clear (Clear) Urine pH 6.0 (5.0-7.0) Ur Specific [place] 1.020 (1.003-1.030) Urine Protein <15 mg/dl (Negative) mg/dL Urine Glucose (UA) >=500 (Negative) mg/dL Urine Ketones Neg (Negative) mg/dL Urine Blood Neg (Negative) Urine Nitrite Neg (Negative) Urine Bilirubin Neg (Negative) Urine Urobilinogen 2.0 (<2.0) mg/dL Ur Leukocyte Esterase Neg (Negative) Urine WBC (Auto) 2.0 (0.0-6.0) /HPF Urine RBC (Auto) 1.0 (0.0-6.0) /HPF Vancomycin Trough (5.0-20.0) ug/mL Blood Type Antibody Screen MI Antibody Screen Crossmatch 06/13/17 06/13/17 06/13/17 Range/Units 10:28 12:00 16:00 WBC (4.5-11.0) K/mm3 RBC (3.65-5.03) M/mm3 Hgb 9.9 L (11.8-15.2) gm/dl Hct 28.8 L D (35.5-45.6) % MCV (84-94) fl MCH (28-32) pg MCHC (32-34) % RDW (13.2-15.2) % Plt Count (140-440) K/mm3 Lymph % (Auto) (13.4-35.0) % [place] % (Auto) (0.0-7.3) % Eos % (Auto) (0.0-4.3) % Baso % (Auto) (0.0-1.8) % Lymph # (1.2-5.4) K/mm3 [place] # (0.0-0.8) K/mm3 Eos # (0.0-0.4) K/mm3 Baso # (0.0-0.1) K/mm3 Add Manual Diff Total Counted Seg Neutrophils % (40.0-70.0) % Seg Neuts % (Manual) (40.0-70.0) % Band Neutrophils % % Lymphocytes % (Manual) (13.4-35.0) % Reactive Lymphs % (Man) % Monocytes % (Manual) (0.0-7.3) % Eosinophils % (Manual) (0.0-4.3) % Basophils % (Manual) (0.0-1.8) % Metamyelocytes % % Myelocytes % % Promyelocytes % % Blast Cells % % Nucleated RBC % Seg Neutrophils # (1.8-7.7) K/mm3 Seg Neutrophils # Man (1.8-7.7) K/mm3 Band Neutrophils # K/mm3 Lymphocytes # (Manual) (1.2-5.4) K/mm3 Abs React Lymphs (Man) K/mm3 Monocytes # (Manual) (0.0-0.8) K/mm3 Eosinophils # (Manual) (0.0-0.4) K/mm3 Basophils # (Manual) (0.0-0.1) K/mm3 Metamyelocytes # K/mm3 Myelocytes # K/mm3 Promyelocytes # K/mm3 Blast Cells # K/mm3 WBC Morphology Hypersegmented Neuts Hyposegmented Neuts Hypogranular Neuts Smudge Cells Toxic Granulation Toxic Vacuolation Dohle Bodies Pelger-Huet Anomaly Gisella Rods Platelet Estimate Clumped Platelets Plt Clumps, EDTA Large Platelets Giant Platelets Platelet Satelliting Plt Morphology Comment RBC Morphology Dimorphic RBCs Polychromasia Hypochromasia Poikilocytosis Anisocytosis Microcytosis Macrocytosis Spherocytes Pappenheimer Bodies Sickle Cells Target Cells Tear Drop Cells Ovalocytes Helmet Cells [place] Bodies [place] Rings [place] Cells Bite Cells Crenated Cell Elliptocytes Acanthocytes (Spur) Rouleaux Hemoglobin C Crystals Schistocytes Malaria parasites Alex Bodies Hem Pathologist Commnt PT (12.2-14.9) Sec. INR (0.87-1.13) APTT (24.2-36.6) Sec. POC ABG pH (7.35-7.45) POC ABG pCO2 (35-45) POC ABG pO2 (80-105) POC ABG HCO3 POC ABG Total CO2 POC ABG O2 Sat POC ABG Base Excess VBG pH (7.320-7.420) FiO2 % Sodium (137-145) mmol/L Potassium (3.6-5.0) mmol/L Chloride (98-107) mmol/L Carbon Dioxide (22-30) mmol/L Anion Gap mmol/L BUN (9-20) mg/dL Creatinine (0.8-1.5) mg/dL Estimated GFR ml/min BUN/Creatinine Ratio % Glucose (75-100) mg/dL POC Glucose 289 H (70-105) Lactic Acid 1.20 (0.7-2.0) mmol/L Calcium (8.4-10.2) mg/dL Magnesium (1.7-2.3) mg/dL Total Bilirubin (0.1-1.2) mg/dL AST (5-40) units/L ALT (7-56) units/L Alkaline Phosphatase (35-129) units/L Total Protein (6.3-8.2) g/dL Albumin (3.9-5) g/dL Albumin/Globulin Ratio % Urine Color (Yellow) Urine Turbidity (Clear) Urine pH (5.0-7.0) Ur Specific [place] (1.003-1.030) Urine Protein (Negative) mg/dL Urine Glucose (UA) (Negative) mg/dL Urine Ketones (Negative) mg/dL Urine Blood (Negative) Urine Nitrite (Negative) Urine Bilirubin (Negative) Urine Urobilinogen (<2.0) mg/dL Ur Leukocyte Esterase (Negative) Urine WBC (Auto) (0.0-6.0) /HPF Urine RBC (Auto) (0.0-6.0) /HPF Vancomycin Trough (5.0-20.0) ug/mL Blood Type Antibody Screen MI Antibody Screen Crossmatch 06/13/17 06/13/17 06/13/17 Range/Units 16:15 16:20 18:45 WBC (4.5-11.0) K/mm3 RBC (3.65-5.03) M/mm3 Hgb 8.8 L (11.8-15.2) gm/dl Hct 26.5 L (35.5-45.6) % MCV (84-94) fl MCH (28-32) pg MCHC (32-34) % RDW (13.2-15.2) % Plt Count (140-440) K/mm3 Lymph % (Auto) (13.4-35.0) % [place] % (Auto) (0.0-7.3) % Eos % (Auto) (0.0-4.3) % Baso % (Auto) (0.0-1.8) % Lymph # (1.2-5.4) K/mm3 [place] # (0.0-0.8) K/mm3 Eos # (0.0-0.4) K/mm3 Baso # (0.0-0.1) K/mm3 Add Manual Diff Total Counted Seg Neutrophils % (40.0-70.0) % Seg Neuts % (Manual) (40.0-70.0) % Band Neutrophils % % Lymphocytes % (Manual) (13.4-35.0) % Reactive Lymphs % (Man) % Monocytes % (Manual) (0.0-7.3) % Eosinophils % (Manual) (0.0-4.3) % Basophils % (Manual) (0.0-1.8) % Metamyelocytes % % Myelocytes % % Promyelocytes % % Blast Cells % % Nucleated RBC % Seg Neutrophils # (1.8-7.7) K/mm3 Seg Neutrophils # Man (1.8-7.7) K/mm3 Band Neutrophils # K/mm3 Lymphocytes # (Manual) (1.2-5.4) K/mm3 Abs React Lymphs (Man) K/mm3 Monocytes # (Manual) (0.0-0.8) K/mm3 Eosinophils # (Manual) (0.0-0.4) K/mm3 Basophils # (Manual) (0.0-0.1) K/mm3 Metamyelocytes # K/mm3 Myelocytes # K/mm3 Promyelocytes # K/mm3 Blast Cells # K/mm3 WBC Morphology Hypersegmented Neuts Hyposegmented Neuts Hypogranular Neuts Smudge Cells Toxic Granulation Toxic Vacuolation Dohle Bodies Pelger-Huet Anomaly Gisella Rods Platelet Estimate Clumped Platelets Plt Clumps, EDTA Large Platelets Giant Platelets Platelet Satelliting Plt Morphology Comment RBC Morphology Dimorphic RBCs Polychromasia Hypochromasia Poikilocytosis Anisocytosis Microcytosis Macrocytosis Spherocytes Pappenheimer Bodies Sickle Cells Target Cells Tear Drop Cells Ovalocytes Helmet Cells [place] Bodies [place] Rings [place] Cells Bite Cells Crenated Cell Elliptocytes Acanthocytes (Spur) Rouleaux Hemoglobin C Crystals Schistocytes Malaria parasites Alex Bodies Hem Pathologist Commnt PT (12.2-14.9) Sec. INR (0.87-1.13) APTT (24.2-36.6) Sec. POC ABG pH (7.35-7.45) POC ABG pCO2 (35-45) POC ABG pO2 (80-105) POC ABG HCO3 POC ABG Total CO2 POC ABG O2 Sat POC ABG Base Excess VBG pH (7.320-7.420) FiO2 % Sodium (137-145) mmol/L Potassium (3.6-5.0) mmol/L Chloride (98-107) mmol/L Carbon Dioxide (22-30) mmol/L Anion Gap mmol/L BUN (9-20) mg/dL Creatinine (0.8-1.5) mg/dL Estimated GFR ml/min BUN/Creatinine Ratio % Glucose (75-100) mg/dL POC Glucose 292 H (70-105) Lactic Acid (0.7-2.0) mmol/L Calcium (8.4-10.2) mg/dL Magnesium 1.80 (1.7-2.3) mg/dL Total Bilirubin (0.1-1.2) mg/dL AST (5-40) units/L ALT (7-56) units/L Alkaline Phosphatase (35-129) units/L Total Protein (6.3-8.2) g/dL Albumin (3.9-5) g/dL Albumin/Globulin Ratio % Urine Color (Yellow) Urine Turbidity (Clear) Urine pH (5.0-7.0) Ur Specific [place] (1.003-1.030) Urine Protein (Negative) mg/dL Urine Glucose (UA) (Negative) mg/dL Urine Ketones (Negative) mg/dL Urine Blood (Negative) Urine Nitrite (Negative) Urine Bilirubin (Negative) Urine Urobilinogen (<2.0) mg/dL Ur Leukocyte Esterase (Negative) Urine WBC (Auto) (0.0-6.0) /HPF Urine RBC (Auto) (0.0-6.0) /HPF Vancomycin Trough (5.0-20.0) ug/mL Blood Type Antibody Screen MI Antibody Screen Crossmatch 06/13/17 06/13/17 06/13/17 Range/Units 18:45 18:49 21:13 WBC (4.5-11.0) K/mm3 RBC (3.65-5.03) M/mm3 Hgb (11.8-15.2) gm/dl Hct (35.5-45.6) % MCV (84-94) fl MCH (28-32) pg MCHC (32-34) % RDW (13.2-15.2) % Plt Count (140-440) K/mm3 Lymph % (Auto) (13.4-35.0) % [place] % (Auto) (0.0-7.3) % Eos % (Auto) (0.0-4.3) % Baso % (Auto) (0.0-1.8) % Lymph # (1.2-5.4) K/mm3 [place] # (0.0-0.8) K/mm3 Eos # (0.0-0.4) K/mm3 Baso # (0.0-0.1) K/mm3 Add Manual Diff Total Counted Seg Neutrophils % (40.0-70.0) % Seg Neuts % (Manual) (40.0-70.0) % Band Neutrophils % % Lymphocytes % (Manual) (13.4-35.0) % Reactive Lymphs % (Man) % Monocytes % (Manual) (0.0-7.3) % Eosinophils % (Manual) (0.0-4.3) % Basophils % (Manual) (0.0-1.8) % Metamyelocytes % % Myelocytes % % Promyelocytes % % Blast Cells % % Nucleated RBC % Seg Neutrophils # (1.8-7.7) K/mm3 Seg Neutrophils # Man (1.8-7.7) K/mm3 Band Neutrophils # K/mm3 Lymphocytes # (Manual) (1.2-5.4) K/mm3 Abs React Lymphs (Man) K/mm3 Monocytes # (Manual) (0.0-0.8) K/mm3 Eosinophils # (Manual) (0.0-0.4) K/mm3 Basophils # (Manual) (0.0-0.1) K/mm3 Metamyelocytes # K/mm3 Myelocytes # K/mm3 Promyelocytes # K/mm3 Blast Cells # K/mm3 WBC Morphology Hypersegmented Neuts Hyposegmented Neuts Hypogranular Neuts Smudge Cells Toxic Granulation Toxic Vacuolation Dohle Bodies Pelger-Huet Anomaly Gisella Rods Platelet Estimate Clumped Platelets Plt Clumps, EDTA Large Platelets Giant Platelets Platelet Satelliting Plt Morphology Comment RBC Morphology Dimorphic RBCs Polychromasia Hypochromasia Poikilocytosis Anisocytosis Microcytosis Macrocytosis Spherocytes Pappenheimer Bodies Sickle Cells Target Cells Tear Drop Cells Ovalocytes Helmet Cells [place] Bodies [place] Rings [place] Cells Bite Cells Crenated Cell Elliptocytes Acanthocytes (Spur) Rouleaux Hemoglobin C Crystals Schistocytes Malaria parasites Alex Bodies Hem Pathologist Commnt PT (12.2-14.9) Sec. INR (0.87-1.13) APTT (24.2-36.6) Sec. POC ABG pH (7.35-7.45) POC ABG pCO2 (35-45) POC ABG pO2 (80-105) POC ABG HCO3 POC ABG Total CO2 POC ABG O2 Sat POC ABG Base Excess VBG pH (7.320-7.420) FiO2 % Sodium (137-145) mmol/L Potassium (3.6-5.0) mmol/L Chloride (98-107) mmol/L Carbon Dioxide (22-30) mmol/L Anion Gap mmol/L BUN (9-20) mg/dL Creatinine (0.8-1.5) mg/dL Estimated GFR ml/min BUN/Creatinine Ratio % Glucose (75-100) mg/dL POC Glucose 252 H 234 H (70-105) Lactic Acid 1.10 (0.7-2.0) mmol/L Calcium (8.4-10.2) mg/dL Magnesium (1.7-2.3) mg/dL Total Bilirubin (0.1-1.2) mg/dL AST (5-40) units/L ALT (7-56) units/L Alkaline Phosphatase (35-129) units/L Total Protein (6.3-8.2) g/dL Albumin (3.9-5) g/dL Albumin/Globulin Ratio % Urine Color (Yellow) Urine Turbidity (Clear) Urine pH (5.0-7.0) Ur Specific [place] (1.003-1.030) Urine Protein (Negative) mg/dL Urine Glucose (UA) (Negative) mg/dL Urine Ketones (Negative) mg/dL Urine Blood (Negative) Urine Nitrite (Negative) Urine Bilirubin (Negative) Urine Urobilinogen (<2.0) mg/dL Ur Leukocyte Esterase (Negative) Urine WBC (Auto) (0.0-6.0) /HPF Urine RBC (Auto) (0.0-6.0) /HPF Vancomycin Trough (5.0-20.0) ug/mL Blood Type Antibody Screen MI Antibody Screen Crossmatch 06/13/17 06/14/17 06/14/17 Range/Units Unknown 00:24 00:24 WBC (4.5-11.0) K/mm3 RBC (3.65-5.03) M/mm3 Hgb 9.3 L 8.5 L (11.8-15.2) gm/dl Hct 27.8 L 25.7 L (35.5-45.6) % MCV (84-94) fl MCH (28-32) pg MCHC (32-34) % RDW (13.2-15.2) % Plt Count (140-440) K/mm3 Lymph % (Auto) (13.4-35.0) % [place] % (Auto) (0.0-7.3) % Eos % (Auto) (0.0-4.3) % Baso % (Auto) (0.0-1.8) % Lymph # (1.2-5.4) K/mm3 [place] # (0.0-0.8) K/mm3 Eos # (0.0-0.4) K/mm3 Baso # (0.0-0.1) K/mm3 Add Manual Diff Total Counted Seg Neutrophils % (40.0-70.0) % Seg Neuts % (Manual) (40.0-70.0) % Band Neutrophils % % Lymphocytes % (Manual) (13.4-35.0) % Reactive Lymphs % (Man) % Monocytes % (Manual) (0.0-7.3) % Eosinophils % (Manual) (0.0-4.3) % Basophils % (Manual) (0.0-1.8) % Metamyelocytes % % Myelocytes % % Promyelocytes % % Blast Cells % % Nucleated RBC % Seg Neutrophils # (1.8-7.7) K/mm3 Seg Neutrophils # Man (1.8-7.7) K/mm3 Band Neutrophils # K/mm3 Lymphocytes # (Manual) (1.2-5.4) K/mm3 Abs React Lymphs (Man) K/mm3 Monocytes # (Manual) (0.0-0.8) K/mm3 Eosinophils # (Manual) (0.0-0.4) K/mm3 Basophils # (Manual) (0.0-0.1) K/mm3 Metamyelocytes # K/mm3 Myelocytes # K/mm3 Promyelocytes # K/mm3 Blast Cells # K/mm3 WBC Morphology Hypersegmented Neuts Hyposegmented Neuts Hypogranular Neuts Smudge Cells Toxic Granulation Toxic Vacuolation Dohle Bodies Pelger-Huet Anomaly Gisella Rods Platelet Estimate Clumped Platelets Plt Clumps, EDTA Large Platelets Giant Platelets Platelet Satelliting Plt Morphology Comment RBC Morphology Dimorphic RBCs Polychromasia Hypochromasia Poikilocytosis Anisocytosis Microcytosis Macrocytosis Spherocytes Pappenheimer Bodies Sickle Cells Target Cells Tear Drop Cells Ovalocytes Helmet Cells [place] Bodies [place] Rings [place] Cells Bite Cells Crenated Cell Elliptocytes Acanthocytes (Spur) Rouleaux Hemoglobin C Crystals Schistocytes Malaria parasites Alex Bodies Hem Pathologist Commnt PT (12.2-14.9) Sec. INR (0.87-1.13) APTT (24.2-36.6) Sec. POC ABG pH (7.35-7.45) POC ABG pCO2 (35-45) POC ABG pO2 (80-105) POC ABG HCO3 POC ABG Total CO2 POC ABG O2 Sat POC ABG Base Excess VBG pH (7.320-7.420) FiO2 % Sodium (137-145) mmol/L Potassium (3.6-5.0) mmol/L Chloride (98-107) mmol/L Carbon Dioxide (22-30) mmol/L Anion Gap mmol/L BUN (9-20) mg/dL Creatinine (0.8-1.5) mg/dL Estimated GFR ml/min BUN/Creatinine Ratio % Glucose (75-100) mg/dL POC Glucose (70-105) Lactic Acid 0.80 (0.7-2.0) mmol/L Calcium (8.4-10.2) mg/dL Magnesium (1.7-2.3) mg/dL Total Bilirubin (0.1-1.2) mg/dL AST (5-40) units/L ALT (7-56) units/L Alkaline Phosphatase (35-129) units/L Total Protein (6.3-8.2) g/dL Albumin (3.9-5) g/dL Albumin/Globulin Ratio % Urine Color (Yellow) Urine Turbidity (Clear) Urine pH (5.0-7.0) Ur Specific [place] (1.003-1.030) Urine Protein (Negative) mg/dL Urine Glucose (UA) (Negative) mg/dL Urine Ketones (Negative) mg/dL Urine Blood (Negative) Urine Nitrite (Negative) Urine Bilirubin (Negative) Urine Urobilinogen (<2.0) mg/dL Ur Leukocyte Esterase (Negative) Urine WBC (Auto) (0.0-6.0) /HPF Urine RBC (Auto) (0.0-6.0) /HPF Vancomycin Trough (5.0-20.0) ug/mL Blood Type Antibody Screen MI Antibody Screen Crossmatch 06/14/17 06/14/17 06/14/17 Range/Units 01:53 04:44 04:44 WBC (4.5-11.0) K/mm3 RBC (3.65-5.03) M/mm3 Hgb 8.2 L (11.8-15.2) gm/dl Hct 25.1 L (35.5-45.6) % MCV (84-94) fl MCH (28-32) pg MCHC (32-34) % RDW (13.2-15.2) % Plt Count (140-440) K/mm3 Lymph % (Auto) (13.4-35.0) % [place] % (Auto) (0.0-7.3) % Eos % (Auto) (0.0-4.3) % Baso % (Auto) (0.0-1.8) % Lymph # (1.2-5.4) K/mm3 [place] # (0.0-0.8) K/mm3 Eos # (0.0-0.4) K/mm3 Baso # (0.0-0.1) K/mm3 Add Manual Diff Total Counted Seg Neutrophils % (40.0-70.0) % Seg Neuts % (Manual) (40.0-70.0) % Band Neutrophils % % Lymphocytes % (Manual) (13.4-35.0) % Reactive Lymphs % (Man) % Monocytes % (Manual) (0.0-7.3) % Eosinophils % (Manual) (0.0-4.3) % Basophils % (Manual) (0.0-1.8) % Metamyelocytes % % Myelocytes % % Promyelocytes % % Blast Cells % % Nucleated RBC % Seg Neutrophils # (1.8-7.7) K/mm3 Seg Neutrophils # Man (1.8-7.7) K/mm3 Band Neutrophils # K/mm3 Lymphocytes # (Manual) (1.2-5.4) K/mm3 Abs React Lymphs (Man) K/mm3 Monocytes # (Manual) (0.0-0.8) K/mm3 Eosinophils # (Manual) (0.0-0.4) K/mm3 Basophils # (Manual) (0.0-0.1) K/mm3 Metamyelocytes # K/mm3 Myelocytes # K/mm3 Promyelocytes # K/mm3 Blast Cells # K/mm3 WBC Morphology Hypersegmented Neuts Hyposegmented Neuts Hypogranular Neuts Smudge Cells Toxic Granulation Toxic Vacuolation Dohle Bodies Pelger-Huet Anomaly Gisella Rods Platelet Estimate Clumped Platelets Plt Clumps, EDTA Large Platelets Giant Platelets Platelet Satelliting Plt Morphology Comment RBC Morphology Dimorphic RBCs Polychromasia Hypochromasia Poikilocytosis Anisocytosis Microcytosis Macrocytosis Spherocytes Pappenheimer Bodies Sickle Cells Target Cells Tear Drop Cells Ovalocytes Helmet Cells [place] Bodies [place] Rings [place] Cells Bite Cells Crenated Cell Elliptocytes Acanthocytes (Spur) Rouleaux Hemoglobin C Crystals Schistocytes Malaria parasites Alex Bodies Hem Pathologist Commnt PT (12.2-14.9) Sec. INR (0.87-1.13) APTT (24.2-36.6) Sec. POC ABG pH (7.35-7.45) POC ABG pCO2 (35-45) POC ABG pO2 (80-105) POC ABG HCO3 POC ABG Total CO2 POC ABG O2 Sat POC ABG Base Excess VBG pH (7.320-7.420) FiO2 % Sodium (137-145) mmol/L Potassium (3.6-5.0) mmol/L Chloride (98-107) mmol/L Carbon Dioxide (22-30) mmol/L Anion Gap mmol/L BUN (9-20) mg/dL Creatinine (0.8-1.5) mg/dL Estimated GFR ml/min BUN/Creatinine Ratio % Glucose (75-100) mg/dL POC Glucose 213 H (70-105) Lactic Acid 0.90 (0.7-2.0) mmol/L Calcium (8.4-10.2) mg/dL Magnesium (1.7-2.3) mg/dL Total Bilirubin (0.1-1.2) mg/dL AST (5-40) units/L ALT (7-56) units/L Alkaline Phosphatase (35-129) units/L Total Protein (6.3-8.2) g/dL Albumin (3.9-5) g/dL Albumin/Globulin Ratio % Urine Color (Yellow) Urine Turbidity (Clear) Urine pH (5.0-7.0) Ur Specific [place] (1.003-1.030) Urine Protein (Negative) mg/dL Urine Glucose (UA) (Negative) mg/dL Urine Ketones (Negative) mg/dL Urine Blood (Negative) Urine Nitrite (Negative) Urine Bilirubin (Negative) Urine Urobilinogen (<2.0) mg/dL Ur Leukocyte Esterase (Negative) Urine WBC (Auto) (0.0-6.0) /HPF Urine RBC (Auto) (0.0-6.0) /HPF Vancomycin Trough (5.0-20.0) ug/mL Blood Type Antibody Screen MI Antibody Screen Crossmatch 06/14/17 06/14/17 06/14/17 Range/Units 05:49 07:42 07:42 WBC 12.2 H (4.5-11.0) K/mm3 RBC 2.77 L (3.65-5.03) M/mm3 Hgb 8.1 L (11.8-15.2) gm/dl Hct 25.0 L (35.5-45.6) % MCV 90 (84-94) fl MCH 29 (28-32) pg MCHC 33 (32-34) % RDW 15.7 H (13.2-15.2) % Plt Count 154 (140-440) K/mm3 Lymph % (Auto) (13.4-35.0) % [place] % (Auto) (0.0-7.3) % Eos % (Auto) (0.0-4.3) % Baso % (Auto) (0.0-1.8) % Lymph # (1.2-5.4) K/mm3 [place] # (0.0-0.8) K/mm3 Eos # (0.0-0.4) K/mm3 Baso # (0.0-0.1) K/mm3 Add Manual Diff Total Counted Seg Neutrophils % (40.0-70.0) % Seg Neuts % (Manual) (40.0-70.0) % Band Neutrophils % % Lymphocytes % (Manual) (13.4-35.0) % Reactive Lymphs % (Man) % Monocytes % (Manual) (0.0-7.3) % Eosinophils % (Manual) (0.0-4.3) % Basophils % (Manual) (0.0-1.8) % Metamyelocytes % % Myelocytes % % Promyelocytes % % Blast Cells % % Nucleated RBC % Seg Neutrophils # (1.8-7.7) K/mm3 Seg Neutrophils # Man (1.8-7.7) K/mm3 Band Neutrophils # K/mm3 Lymphocytes # (Manual) (1.2-5.4) K/mm3 Abs React Lymphs (Man) K/mm3 Monocytes # (Manual) (0.0-0.8) K/mm3 Eosinophils # (Manual) (0.0-0.4) K/mm3 Basophils # (Manual) (0.0-0.1) K/mm3 Metamyelocytes # K/mm3 Myelocytes # K/mm3 Promyelocytes # K/mm3 Blast Cells # K/mm3 WBC Morphology Hypersegmented Neuts Hyposegmented Neuts Hypogranular Neuts Smudge Cells Toxic Granulation Toxic Vacuolation Dohle Bodies Pelger-Huet Anomaly Gisella Rods Platelet Estimate Clumped Platelets Plt Clumps, EDTA Large Platelets Giant Platelets Platelet Satelliting Plt Morphology Comment RBC Morphology Dimorphic RBCs Polychromasia Hypochromasia Poikilocytosis Anisocytosis Microcytosis Macrocytosis Spherocytes Pappenheimer Bodies Sickle Cells Target Cells Tear Drop Cells Ovalocytes Helmet Cells [place] Bodies [place] Rings [place] Cells Bite Cells Crenated Cell Elliptocytes Acanthocytes (Spur) Rouleaux Hemoglobin C Crystals Schistocytes Malaria parasites Alex Bodies Hem Pathologist Commnt PT 15.9 H (12.2-14.9) Sec. INR 1.28 H (0.87-1.13) APTT 30.6 (24.2-36.6) Sec. POC ABG pH (7.35-7.45) POC ABG pCO2 (35-45) POC ABG pO2 (80-105) POC ABG HCO3 POC ABG Total CO2 POC ABG O2 Sat POC ABG Base Excess VBG pH (7.320-7.420) FiO2 % Sodium (137-145) mmol/L Potassium (3.6-5.0) mmol/L Chloride (98-107) mmol/L Carbon Dioxide (22-30) mmol/L Anion Gap mmol/L BUN (9-20) mg/dL Creatinine (0.8-1.5) mg/dL Estimated GFR ml/min BUN/Creatinine Ratio % Glucose (75-100) mg/dL POC Glucose 218 H (70-105) Lactic Acid (0.7-2.0) mmol/L Calcium (8.4-10.2) mg/dL Magnesium (1.7-2.3) mg/dL Total Bilirubin (0.1-1.2) mg/dL AST (5-40) units/L ALT (7-56) units/L Alkaline Phosphatase (35-129) units/L Total Protein (6.3-8.2) g/dL Albumin (3.9-5) g/dL Albumin/Globulin Ratio % Urine Color (Yellow) Urine Turbidity (Clear) Urine pH (5.0-7.0) Ur Specific [place] (1.003-1.030) Urine Protein (Negative) mg/dL Urine Glucose (UA) (Negative) mg/dL Urine Ketones (Negative) mg/dL Urine Blood (Negative) Urine Nitrite (Negative) Urine Bilirubin (Negative) Urine Urobilinogen (<2.0) mg/dL Ur Leukocyte Esterase (Negative) Urine WBC (Auto) (0.0-6.0) /HPF Urine RBC (Auto) (0.0-6.0) /HPF Vancomycin Trough (5.0-20.0) ug/mL Blood Type Antibody Screen MI Antibody Screen Crossmatch 06/14/17 06/14/17 06/14/17 Range/Units 07:42 14:31 16:45 WBC 14.0 H (4.5-11.0) K/mm3 RBC 3.61 L (3.65-5.03) M/mm3 Hgb 10.9 L (11.8-15.2) gm/dl Hct 32.8 L D (35.5-45.6) % MCV 91 (84-94) fl MCH 30 (28-32) pg MCHC 33 (32-34) % RDW 15.8 H (13.2-15.2) % Plt Count 152 (140-440) K/mm3 Lymph % (Auto) (13.4-35.0) % [place] % (Auto) (0.0-7.3) % Eos % (Auto) (0.0-4.3) % Baso % (Auto) (0.0-1.8) % Lymph # (1.2-5.4) K/mm3 [place] # (0.0-0.8) K/mm3 Eos # (0.0-0.4) K/mm3 Baso # (0.0-0.1) K/mm3 Add Manual Diff Total Counted Seg Neutrophils % (40.0-70.0) % Seg Neuts % (Manual) (40.0-70.0) % Band Neutrophils % % Lymphocytes % (Manual) (13.4-35.0) % Reactive Lymphs % (Man) % Monocytes % (Manual) (0.0-7.3) % Eosinophils % (Manual) (0.0-4.3) % Basophils % (Manual) (0.0-1.8) % Metamyelocytes % % Myelocytes % % Promyelocytes % % Blast Cells % % Nucleated RBC % Seg Neutrophils # (1.8-7.7) K/mm3 Seg Neutrophils # Man (1.8-7.7) K/mm3 Band Neutrophils # K/mm3 Lymphocytes # (Manual) (1.2-5.4) K/mm3 Abs React Lymphs (Man) K/mm3 Monocytes # (Manual) (0.0-0.8) K/mm3 Eosinophils # (Manual) (0.0-0.4) K/mm3 Basophils # (Manual) (0.0-0.1) K/mm3 Metamyelocytes # K/mm3 Myelocytes # K/mm3 Promyelocytes # K/mm3 Blast Cells # K/mm3 WBC Morphology Hypersegmented Neuts Hyposegmented Neuts Hypogranular Neuts Smudge Cells Toxic Granulation Toxic Vacuolation Dohle Bodies Pelger-Huet Anomaly Gisella Rods Platelet Estimate Clumped Platelets Plt Clumps, EDTA Large Platelets Giant Platelets Platelet Satelliting Plt Morphology Comment RBC Morphology Dimorphic RBCs Polychromasia Hypochromasia Poikilocytosis Anisocytosis Microcytosis Macrocytosis Spherocytes Pappenheimer Bodies Sickle Cells Target Cells Tear Drop Cells Ovalocytes Helmet Cells [place] Bodies [place] Rings [place] Cells Bite Cells Crenated Cell Elliptocytes Acanthocytes (Spur) Rouleaux Hemoglobin C Crystals Schistocytes Malaria parasites Alex Bodies Hem Pathologist Commnt PT (12.2-14.9) Sec. INR (0.87-1.13) APTT (24.2-36.6) Sec. POC ABG pH (7.35-7.45) POC ABG pCO2 (35-45) POC ABG pO2 (80-105) POC ABG HCO3 POC ABG Total CO2 POC ABG O2 Sat POC ABG Base Excess VBG pH (7.320-7.420) FiO2 % Sodium 146 H D (137-145) mmol/L Potassium 4.6 (3.6-5.0) mmol/L Chloride 110.2 H (98-107) mmol/L Carbon Dioxide 15 L D (22-30) mmol/L Anion Gap 25 mmol/L BUN 25 H (9-20) mg/dL Creatinine 1.2 (0.8-1.5) mg/dL Estimated GFR > 60 ml/min BUN/Creatinine Ratio 20.83 % Glucose 185 H (75-100) mg/dL POC Glucose 235 H (70-105) Lactic Acid (0.7-2.0) mmol/L Calcium 8.0 L (8.4-10.2) mg/dL Magnesium (1.7-2.3) mg/dL Total Bilirubin 0.50 (0.1-1.2) mg/dL AST 38 (5-40) units/L ALT 21 (7-56) units/L Alkaline Phosphatase 55 (35-129) units/L Total Protein 5.1 L (6.3-8.2) g/dL Albumin 2.0 L (3.9-5) g/dL Albumin/Globulin Ratio 0.6 % Urine Color (Yellow) Urine Turbidity (Clear) Urine pH (5.0-7.0) Ur Specific [place] (1.003-1.030) Urine Protein (Negative) mg/dL Urine Glucose (UA) (Negative) mg/dL Urine Ketones (Negative) mg/dL Urine Blood (Negative) Urine Nitrite (Negative) Urine Bilirubin (Negative) Urine Urobilinogen (<2.0) mg/dL Ur Leukocyte Esterase (Negative) Urine WBC (Auto) (0.0-6.0) /HPF Urine RBC (Auto) (0.0-6.0) /HPF Vancomycin Trough (5.0-20.0) ug/mL Blood Type Antibody Screen MI Antibody Screen Crossmatch 06/14/17 06/14/17 06/14/17 Range/Units 19:34 19:45 19:45 WBC 13.1 H (4.5-11.0) K/mm3 RBC 3.33 L (3.65-5.03) M/mm3 Hgb 9.9 L (11.8-15.2) gm/dl Hct 29.7 L (35.5-45.6) % MCV 89 (84-94) fl MCH 30 (28-32) pg MCHC 33 (32-34) % RDW 15.7 H (13.2-15.2) % Plt Count 126 L (140-440) K/mm3 Lymph % (Auto) (13.4-35.0) % [place] % (Auto) (0.0-7.3) % Eos % (Auto) (0.0-4.3) % Baso % (Auto) (0.0-1.8) % Lymph # (1.2-5.4) K/mm3 [place] # (0.0-0.8) K/mm3 Eos # (0.0-0.4) K/mm3 Baso # (0.0-0.1) K/mm3 Add Manual Diff Total Counted Seg Neutrophils % (40.0-70.0) % Seg Neuts % (Manual) (40.0-70.0) % Band Neutrophils % % Lymphocytes % (Manual) (13.4-35.0) % Reactive Lymphs % (Man) % Monocytes % (Manual) (0.0-7.3) % Eosinophils % (Manual) (0.0-4.3) % Basophils % (Manual) (0.0-1.8) % Metamyelocytes % % Myelocytes % % Promyelocytes % % Blast Cells % % Nucleated RBC % Seg Neutrophils # (1.8-7.7) K/mm3 Seg Neutrophils # Man (1.8-7.7) K/mm3 Band Neutrophils # K/mm3 Lymphocytes # (Manual) (1.2-5.4) K/mm3 Abs React Lymphs (Man) K/mm3 Monocytes # (Manual) (0.0-0.8) K/mm3 Eosinophils # (Manual) (0.0-0.4) K/mm3 Basophils # (Manual) (0.0-0.1) K/mm3 Metamyelocytes # K/mm3 Myelocytes # K/mm3 Promyelocytes # K/mm3 Blast Cells # K/mm3 WBC Morphology Hypersegmented Neuts Hyposegmented Neuts Hypogranular Neuts Smudge Cells Toxic Granulation Toxic Vacuolation Dohle Bodies Pelger-Huet Anomaly Gisella Rods Platelet Estimate Clumped Platelets Plt Clumps, EDTA Large Platelets Giant Platelets Platelet Satelliting Plt Morphology Comment RBC Morphology Dimorphic RBCs Polychromasia Hypochromasia Poikilocytosis Anisocytosis Microcytosis Macrocytosis Spherocytes Pappenheimer Bodies Sickle Cells Target Cells Tear Drop Cells Ovalocytes Helmet Cells [place] Bodies [place] Rings [place] Cells Bite Cells Crenated Cell Elliptocytes Acanthocytes (Spur) Rouleaux Hemoglobin C Crystals Schistocytes Malaria parasites Alex Bodies Hem Pathologist Commnt PT (12.2-14.9) Sec. INR (0.87-1.13) APTT (24.2-36.6) Sec. POC ABG pH (7.35-7.45) POC ABG pCO2 (35-45) POC ABG pO2 (80-105) POC ABG HCO3 POC ABG Total CO2 POC ABG O2 Sat POC ABG Base Excess VBG pH (7.320-7.420) FiO2 % Sodium 148 H (137-145) mmol/L Potassium 5.7 H D (3.6-5.0) mmol/L Chloride 108.5 H (98-107) mmol/L Carbon Dioxide 12 L (22-30) mmol/L Anion Gap 33 mmol/L BUN 29 H (9-20) mg/dL Creatinine 1.7 H (0.8-1.5) mg/dL Estimated GFR 48 ml/min BUN/Creatinine Ratio 17.05 % Glucose 324 H (75-100) mg/dL POC Glucose 296 H (70-105) Lactic Acid (0.7-2.0) mmol/L Calcium 7.9 L (8.4-10.2) mg/dL Magnesium (1.7-2.3) mg/dL Total Bilirubin (0.1-1.2) mg/dL AST (5-40) units/L ALT (7-56) units/L Alkaline Phosphatase (35-129) units/L Total Protein (6.3-8.2) g/dL Albumin (3.9-5) g/dL Albumin/Globulin Ratio % Urine Color (Yellow) Urine Turbidity (Clear) Urine pH (5.0-7.0) Ur Specific [place] (1.003-1.030) Urine Protein (Negative) mg/dL Urine Glucose (UA) (Negative) mg/dL Urine Ketones (Negative) mg/dL Urine Blood (Negative) Urine Nitrite (Negative) Urine Bilirubin (Negative) Urine Urobilinogen (<2.0) mg/dL Ur Leukocyte Esterase (Negative) Urine WBC (Auto) (0.0-6.0) /HPF Urine RBC (Auto) (0.0-6.0) /HPF Vancomycin Trough (5.0-20.0) ug/mL Blood Type Antibody Screen MI Antibody Screen Crossmatch 06/14/17 06/14/17 06/14/17 Range/Units 20:05 21:53 23:06 WBC (4.5-11.0) K/mm3 RBC (3.65-5.03) M/mm3 Hgb (11.8-15.2) gm/dl Hct (35.5-45.6) % MCV (84-94) fl MCH (28-32) pg MCHC (32-34) % RDW (13.2-15.2) % Plt Count (140-440) K/mm3 Lymph % (Auto) (13.4-35.0) % [place] % (Auto) (0.0-7.3) % Eos % (Auto) (0.0-4.3) % Baso % (Auto) (0.0-1.8) % Lymph # (1.2-5.4) K/mm3 [place] # (0.0-0.8) K/mm3 Eos # (0.0-0.4) K/mm3 Baso # (0.0-0.1) K/mm3 Add Manual Diff Total Counted Seg Neutrophils % (40.0-70.0) % Seg Neuts % (Manual) (40.0-70.0) % Band Neutrophils % % Lymphocytes % (Manual) (13.4-35.0) % Reactive Lymphs % (Man) % Monocytes % (Manual) (0.0-7.3) % Eosinophils % (Manual) (0.0-4.3) % Basophils % (Manual) (0.0-1.8) % Metamyelocytes % % Myelocytes % % Promyelocytes % % Blast Cells % % Nucleated RBC % Seg Neutrophils # (1.8-7.7) K/mm3 Seg Neutrophils # Man (1.8-7.7) K/mm3 Band Neutrophils # K/mm3 Lymphocytes # (Manual) (1.2-5.4) K/mm3 Abs React Lymphs (Man) K/mm3 Monocytes # (Manual) (0.0-0.8) K/mm3 Eosinophils # (Manual) (0.0-0.4) K/mm3 Basophils # (Manual) (0.0-0.1) K/mm3 Metamyelocytes # K/mm3 Myelocytes # K/mm3 Promyelocytes # K/mm3 Blast Cells # K/mm3 WBC Morphology Hypersegmented Neuts Hyposegmented Neuts Hypogranular Neuts Smudge Cells Toxic Granulation Toxic Vacuolation Dohle Bodies Pelger-Huet Anomaly Gisella Rods Platelet Estimate Clumped Platelets Plt Clumps, EDTA Large Platelets Giant Platelets Platelet Satelliting Plt Morphology Comment RBC Morphology Dimorphic RBCs Polychromasia Hypochromasia Poikilocytosis Anisocytosis Microcytosis Macrocytosis Spherocytes Pappenheimer Bodies Sickle Cells Target Cells Tear Drop Cells Ovalocytes Helmet Cells [place] Bodies [place] Rings Val[place] Cells Bite Cells Crenated Cell Elliptocytes Acanthocytes (Spur) Rouleaux Hemoglobin C Crystals Schistocytes Malaria parasites Alex Bodies Hem Pathologist Commnt PT (12.2-14.9) Sec. INR (0.87-1.13) APTT (24.2-36.6) Sec. POC ABG pH 7.241 L 7.298 L (7.35-7.45) POC ABG pCO2 32.3 L 26.8 L (35-45) POC ABG pO2 550 H 303 H (80-105) POC ABG HCO3 13.9 13.1 POC ABG Total CO2 15 14 POC ABG O2 Sat 100 100 POC ABG Base Excess -14 -13 VBG pH (7.320-7.420) FiO2 100 60 % Sodium (137-145) mmol/L Potassium (3.6-5.0) mmol/L Chloride (98-107) mmol/L Carbon Dioxide (22-30) mmol/L Anion Gap mmol/L BUN (9-20) mg/dL Creatinine (0.8-1.5) mg/dL Estimated GFR ml/min BUN/Creatinine Ratio % Glucose (75-100) mg/dL POC Glucose 259 H (70-105) Lactic Acid (0.7-2.0) mmol/L Calcium (8.4-10.2) mg/dL Magnesium (1.7-2.3) mg/dL Total Bilirubin (0.1-1.2) mg/dL AST (5-40) units/L ALT (7-56) units/L Alkaline Phosphatase (35-129) units/L Total Protein (6.3-8.2) g/dL Albumin (3.9-5) g/dL Albumin/Globulin Ratio % Urine Color (Yellow) Urine Turbidity (Clear) Urine pH (5.0-7.0) Ur Specific [place] (1.003-1.030) Urine Protein (Negative) mg/dL Urine Glucose (UA) (Negative) mg/dL Urine Ketones (Negative) mg/dL Urine Blood (Negative) Urine Nitrite (Negative) Urine Bilirubin (Negative) Urine Urobilinogen (<2.0) mg/dL Ur Leukocyte Esterase (Negative) Urine WBC (Auto) (0.0-6.0) /HPF Urine RBC (Auto) (0.0-6.0) /HPF Vancomycin Trough (5.0-20.0) ug/mL Blood Type Antibody Screen MI Antibody Screen Crossmatch 08/04/17 08/04/17 08/04/17 Range/Units 02:08 06:00 06:15 WBC (4.5-11.0) K/mm3 RBC (3.65-5.03) M/mm3 Hgb 8.8 L (11.8-15.2) gm/dl Hct 26.4 L (35.5-45.6) % MCV (84-94) fl MCH (28-32) pg MCHC (32-34) % RDW (13.2-15.2) % Plt Count (140-440) K/mm3 Lymph % (Auto) (13.4-35.0) % [place] % (Auto) (0.0-7.3) % Eos % (Auto) (0.0-4.3) % Baso % (Auto) (0.0-1.8) % Lymph # (1.2-5.4) K/mm3 [place] # (0.0-0.8) K/mm3 Eos # (0.0-0.4) K/mm3 Baso # (0.0-0.1) K/mm3 Add Manual Diff Total Counted Seg Neutrophils % (40.0-70.0) % Seg Neuts % (Manual) (40.0-70.0) % Band Neutrophils % % Lymphocytes % (Manual) (13.4-35.0) % Reactive Lymphs % (Man) % Monocytes % (Manual) (0.0-7.3) % Eosinophils % (Manual) (0.0-4.3) % Basophils % (Manual) (0.0-1.8) % Metamyelocytes % % Myelocytes % % Promyelocytes % % Blast Cells % % Nucleated RBC % Seg Neutrophils # (1.8-7.7) K/mm3 Seg Neutrophils # Man (1.8-7.7) K/mm3 Band Neutrophils # K/mm3 Lymphocytes # (Manual) (1.2-5.4) K/mm3 Abs React Lymphs (Man) K/mm3 Monocytes # (Manual) (0.0-0.8) K/mm3 Eosinophils # (Manual) (0.0-0.4) K/mm3 Basophils # (Manual) (0.0-0.1) K/mm3 Metamyelocytes # K/mm3 Myelocytes # K/mm3 Promyelocytes # K/mm3 Blast Cells # K/mm3 WBC Morphology Hypersegmented Neuts Hyposegmented Neuts Hypogranular Neuts Smudge Cells Toxic Granulation Toxic Vacuolation Dohle Bodies Pelger-Huet Anomaly Gisella Rods Platelet Estimate Clumped Platelets Plt Clumps, EDTA Large Platelets Giant Platelets Platelet Satelliting Plt Morphology Comment RBC Morphology Dimorphic RBCs Polychromasia Hypochromasia Poikilocytosis Anisocytosis Microcytosis Macrocytosis Spherocytes Pappenheimer Bodies Sickle Cells Target Cells Tear Drop Cells Ovalocytes Helmet Cells [place] Bodies [place] Rings Val[place] Cells Bite Cells Crenated Cell Elliptocytes Acanthocytes (Spur) Rouleaux Hemoglobin C Crystals Schistocytes Malaria parasites Alex Bodies Hem Pathologist Commnt PT (12.2-14.9) Sec. INR (0.87-1.13) APTT (24.2-36.6) Sec. POC ABG pH (7.35-7.45) POC ABG pCO2 (35-45) POC ABG pO2 (80-105) POC ABG HCO3 POC ABG Total CO2 POC ABG O2 Sat POC ABG Base Excess VBG pH (7.320-7.420) FiO2 % Sodium (137-145) mmol/L Potassium (3.6-5.0) mmol/L Chloride (98-107) mmol/L Carbon Dioxide (22-30) mmol/L Anion Gap mmol/L BUN (9-20) mg/dL Creatinine (0.8-1.5) mg/dL Estimated GFR ml/min BUN/Creatinine Ratio % Glucose (75-100) mg/dL POC Glucose 334 H 233 H (70-105) Lactic Acid (0.7-2.0) mmol/L Calcium (8.4-10.2) mg/dL Magnesium (1.7-2.3) mg/dL Total Bilirubin (0.1-1.2) mg/dL AST (5-40) units/L ALT (7-56) units/L Alkaline Phosphatase (35-129) units/L Total Protein (6.3-8.2) g/dL Albumin (3.9-5) g/dL Albumin/Globulin Ratio % Urine Color (Yellow) Urine Turbidity (Clear) Urine pH (5.0-7.0) Ur Specific [place] (1.003-1.030) Urine Protein (Negative) mg/dL Urine Glucose (UA) (Negative) mg/dL Urine Ketones (Negative) mg/dL Urine Blood (Negative) Urine Nitrite (Negative) Urine Bilirubin (Negative) Urine Urobilinogen (<2.0) mg/dL Ur Leukocyte Esterase (Negative) Urine WBC (Auto) (0.0-6.0) /HPF Urine RBC (Auto) (0.0-6.0) /HPF Vancomycin Trough (5.0-20.0) ug/mL Blood Type Antibody Screen MI Antibody Screen Crossmatch 06/15/17 06/15/17 06/15/17 Range/Units 06:15 06:54 09:32 WBC (4.5-11.0) K/mm3 RBC (3.65-5.03) M/mm3 Hgb (11.8-15.2) gm/dl Hct (35.5-45.6) % MCV (84-94) fl MCH (28-32) pg MCHC (32-34) % RDW (13.2-15.2) % Plt Count (140-440) K/mm3 Lymph % (Auto) (13.4-35.0) % [place] % (Auto) (0.0-7.3) % Eos % (Auto) (0.0-4.3) % Baso % (Auto) (0.0-1.8) % Lymph # (1.2-5.4) K/mm3 [place] # (0.0-0.8) K/mm3 Eos # (0.0-0.4) K/mm3 Baso # (0.0-0.1) K/mm3 Add Manual Diff Total Counted Seg Neutrophils % (40.0-70.0) % Seg Neuts % (Manual) (40.0-70.0) % Band Neutrophils % % Lymphocytes % (Manual) (13.4-35.0) % Reactive Lymphs % (Man) % Monocytes % (Manual) (0.0-7.3) % Eosinophils % (Manual) (0.0-4.3) % Basophils % (Manual) (0.0-1.8) % Metamyelocytes % % Myelocytes % % Promyelocytes % % Blast Cells % % Nucleated RBC % Seg Neutrophils # (1.8-7.7) K/mm3 Seg Neutrophils # Man (1.8-7.7) K/mm3 Band Neutrophils # K/mm3 Lymphocytes # (Manual) (1.2-5.4) K/mm3 Abs React Lymphs (Man) K/mm3 Monocytes # (Manual) (0.0-0.8) K/mm3 Eosinophils # (Manual) (0.0-0.4) K/mm3 Basophils # (Manual) (0.0-0.1) K/mm3 Metamyelocytes # K/mm3 Myelocytes # K/mm3 Promyelocytes # K/mm3 Blast Cells # K/mm3 WBC Morphology Hypersegmented Neuts Hyposegmented Neuts Hypogranular Neuts Smudge Cells Toxic Granulation Toxic Vacuolation Dohle Bodies Pelger-Huet Anomaly Gisella Rods Platelet Estimate Clumped Platelets Plt Clumps, EDTA Large Platelets Giant Platelets Platelet Satelliting Plt Morphology Comment RBC Morphology Dimorphic RBCs Polychromasia Hypochromasia Poikilocytosis Anisocytosis Microcytosis Macrocytosis Spherocytes Pappenheimer Bodies Sickle Cells Target Cells Tear Drop Cells Ovalocytes Helmet Cells [place] Bodies [place] Rings [place] Cells Bite Cells Crenated Cell Elliptocytes Acanthocytes (Spur) Rouleaux Hemoglobin C Crystals Schistocytes Malaria parasites Alex Bodies Hem Pathologist Commnt PT (12.2-14.9) Sec. INR (0.87-1.13) APTT (24.2-36.6) Sec. POC ABG pH 7.350 (7.35-7.45) POC ABG pCO2 34.4 L (35-45) POC ABG pO2 191 H (80-105) POC ABG HCO3 19.0 POC ABG Total CO2 20 POC ABG O2 Sat 100 POC ABG Base Excess -7 VBG pH (7.320-7.420) FiO2 40 % Sodium 151 H (137-145) mmol/L Potassium 5.0 (3.6-5.0) mmol/L Chloride 114.7 H (98-107) mmol/L Carbon Dioxide 18 L (22-30) mmol/L Anion Gap 23 mmol/L BUN 29 H (9-20) mg/dL Creatinine 1.8 H (0.8-1.5) mg/dL Estimated GFR 44 ml/min BUN/Creatinine Ratio 16.11 % Glucose 259 H (75-100) mg/dL POC Glucose 229 H (70-105) Lactic Acid (0.7-2.0) mmol/L Calcium 7.7 L (8.4-10.2) mg/dL Magnesium (1.7-2.3) mg/dL Total Bilirubin (0.1-1.2) mg/dL AST (5-40) units/L ALT (7-56) units/L Alkaline Phosphatase (35-129) units/L Total Protein (6.3-8.2) g/dL Albumin (3.9-5) g/dL Albumin/Globulin Ratio % Urine Color (Yellow) Urine Turbidity (Clear) Urine pH (5.0-7.0) Ur Specific [place] (1.003-1.030) Urine Protein (Negative) mg/dL Urine Glucose (UA) (Negative) mg/dL Urine Ketones (Negative) mg/dL Urine Blood (Negative) Urine Nitrite (Negative) Urine Bilirubin (Negative) Urine Urobilinogen (<2.0) mg/dL Ur Leukocyte Esterase (Negative) Urine WBC (Auto) (0.0-6.0) /HPF Urine RBC (Auto) (0.0-6.0) /HPF Vancomycin Trough (5.0-20.0) ug/mL Blood Type Antibody Screen MI Antibody Screen Crossmatch 06/15/17 06/15/17 06/15/17 Range/Units 11:35 12:32 13:36 WBC (4.5-11.0) K/mm3 RBC (3.65-5.03) M/mm3 Hgb (11.8-15.2) gm/dl Hct (35.5-45.6) % MCV (84-94) fl MCH (28-32) pg MCHC (32-34) % RDW (13.2-15.2) % Plt Count (140-440) K/mm3 Lymph % (Auto) (13.4-35.0) % [place] % (Auto) (0.0-7.3) % Eos % (Auto) (0.0-4.3) % Baso % (Auto) (0.0-1.8) % Lymph # (1.2-5.4) K/mm3 [place] # (0.0-0.8) K/mm3 Eos # (0.0-0.4) K/mm3 Baso # (0.0-0.1) K/mm3 Add Manual Diff Total Counted Seg Neutrophils % (40.0-70.0) % Seg Neuts % (Manual) (40.0-70.0) % Band Neutrophils % % Lymphocytes % (Manual) (13.4-35.0) % Reactive Lymphs % (Man) % Monocytes % (Manual) (0.0-7.3) % Eosinophils % (Manual) (0.0-4.3) % Basophils % (Manual) (0.0-1.8) % Metamyelocytes % % Myelocytes % % Promyelocytes % % Blast Cells % % Nucleated RBC % Seg Neutrophils # (1.8-7.7) K/mm3 Seg Neutrophils # Man (1.8-7.7) K/mm3 Band Neutrophils # K/mm3 Lymphocytes # (Manual) (1.2-5.4) K/mm3 Abs React Lymphs (Man) K/mm3 Monocytes # (Manual) (0.0-0.8) K/mm3 Eosinophils # (Manual) (0.0-0.4) K/mm3 Basophils # (Manual) (0.0-0.1) K/mm3 Metamyelocytes # K/mm3 Myelocytes # K/mm3 Promyelocytes # K/mm3 Blast Cells # K/mm3 WBC Morphology Hypersegmented Neuts Hyposegmented Neuts Hypogranular Neuts Smudge Cells Toxic Granulation Toxic Vacuolation Dohle Bodies Pelger-Huet Anomaly Gisella Rods Platelet Estimate Clumped Platelets Plt Clumps, EDTA Large Platelets Giant Platelets Platelet Satelliting Plt Morphology Comment RBC Morphology Dimorphic RBCs Polychromasia Hypochromasia Poikilocytosis Anisocytosis Microcytosis Macrocytosis Spherocytes Pappenheimer Bodies Sickle Cells Target Cells Tear Drop Cells Ovalocytes Helmet Cells [place] Bodies [place] Rings [place] Cells Bite Cells Crenated Cell Elliptocytes Acanthocytes (Spur) Rouleaux Hemoglobin C Crystals Schistocytes Malaria parasites Alex Bodies Hem Pathologist Commnt PT (12.2-14.9) Sec. INR (0.87-1.13) APTT (24.2-36.6) Sec. POC ABG pH (7.35-7.45) POC ABG pCO2 (35-45) POC ABG pO2 (80-105) POC ABG HCO3 POC ABG Total CO2 POC ABG O2 Sat POC ABG Base Excess VBG pH (7.320-7.420) FiO2 % Sodium (137-145) mmol/L Potassium (3.6-5.0) mmol/L Chloride (98-107) mmol/L Carbon Dioxide (22-30) mmol/L Anion Gap mmol/L BUN (9-20) mg/dL Creatinine (0.8-1.5) mg/dL Estimated GFR ml/min BUN/Creatinine Ratio % Glucose (75-100) mg/dL POC Glucose 202 H 189 H (70-105) Lactic Acid (0.7-2.0) mmol/L Calcium (8.4-10.2) mg/dL Magnesium (1.7-2.3) mg/dL Total Bilirubin (0.1-1.2) mg/dL AST (5-40) units/L ALT (7-56) units/L Alkaline Phosphatase (35-129) units/L Total Protein (6.3-8.2) g/dL Albumin (3.9-5) g/dL Albumin/Globulin Ratio % Urine Color (Yellow) Urine Turbidity (Clear) Urine pH (5.0-7.0) Ur Specific [place] (1.003-1.030) Urine Protein (Negative) mg/dL Urine Glucose (UA) (Negative) mg/dL Urine Ketones (Negative) mg/dL Urine Blood (Negative) Urine Nitrite (Negative) Urine Bilirubin (Negative) Urine Urobilinogen (<2.0) mg/dL Ur Leukocyte Esterase (Negative) Urine WBC (Auto) (0.0-6.0) /HPF Urine RBC (Auto) (0.0-6.0) /HPF Vancomycin Trough (5.0-20.0) ug/mL Blood Type B POSITIVE Antibody Screen TNR MI Antibody Screen Negative Crossmatch See Detail 06/15/17 06/15/17 06/15/17 Range/Units 14:30 15:32 16:28 WBC (4.5-11.0) K/mm3 RBC (3.65-5.03) M/mm3 Hgb (11.8-15.2) gm/dl Hct (35.5-45.6) % MCV (84-94) fl MCH (28-32) pg MCHC (32-34) % RDW (13.2-15.2) % Plt Count (140-440) K/mm3 Lymph % (Auto) (13.4-35.0) % [place] % (Auto) (0.0-7.3) % Eos % (Auto) (0.0-4.3) % Baso % (Auto) (0.0-1.8) % Lymph # (1.2-5.4) K/mm3 [place] # (0.0-0.8) K/mm3 Eos # (0.0-0.4) K/mm3 Baso # (0.0-0.1) K/mm3 Add Manual Diff Total Counted Seg Neutrophils % (40.0-70.0) % Seg Neuts % (Manual) (40.0-70.0) % Band Neutrophils % % Lymphocytes % (Manual) (13.4-35.0) % Reactive Lymphs % (Man) % Monocytes % (Manual) (0.0-7.3) % Eosinophils % (Manual) (0.0-4.3) % Basophils % (Manual) (0.0-1.8) % Metamyelocytes % % Myelocytes % % Promyelocytes % % Blast Cells % % Nucleated RBC % Seg Neutrophils # (1.8-7.7) K/mm3 Seg Neutrophils # Man (1.8-7.7) K/mm3 Band Neutrophils # K/mm3 Lymphocytes # (Manual) (1.2-5.4) K/mm3 Abs React Lymphs (Man) K/mm3 Monocytes # (Manual) (0.0-0.8) K/mm3 Eosinophils # (Manual) (0.0-0.4) K/mm3 Basophils # (Manual) (0.0-0.1) K/mm3 Metamyelocytes # K/mm3 Myelocytes # K/mm3 Promyelocytes # K/mm3 Blast Cells # K/mm3 WBC Morphology Hypersegmented Neuts Hyposegmented Neuts Hypogranular Neuts Smudge Cells Toxic Granulation Toxic Vacuolation Dohle Bodies Pelger-Huet Anomaly Gisella Rods Platelet Estimate Clumped Platelets Plt Clumps, EDTA Large Platelets Giant Platelets Platelet Satelliting Plt Morphology Comment RBC Morphology Dimorphic RBCs Polychromasia Hypochromasia Poikilocytosis Anisocytosis Microcytosis Macrocytosis Spherocytes Pappenheimer Bodies Sickle Cells Target Cells Tear Drop Cells Ovalocytes Helmet Cells [place] Bodies [place] Rings [place] Cells Bite Cells Crenated Cell Elliptocytes Acanthocytes (Spur) Rouleaux Hemoglobin C Crystals Schistocytes Malaria parasites Alex Bodies Hem Pathologist Commnt PT (12.2-14.9) Sec. INR (0.87-1.13) APTT (24.2-36.6) Sec. POC ABG pH (7.35-7.45) POC ABG pCO2 (35-45) POC ABG pO2 (80-105) POC ABG HCO3 POC ABG Total CO2 POC ABG O2 Sat POC ABG Base Excess VBG pH (7.320-7.420) FiO2 % Sodium (137-145) mmol/L Potassium (3.6-5.0) mmol/L Chloride (98-107) mmol/L Carbon Dioxide (22-30) mmol/L Anion Gap mmol/L BUN (9-20) mg/dL Creatinine (0.8-1.5) mg/dL Estimated GFR ml/min BUN/Creatinine Ratio % Glucose (75-100) mg/dL POC Glucose 142 H 106 H 119 H (70-105) Lactic Acid (0.7-2.0) mmol/L Calcium (8.4-10.2) mg/dL Magnesium (1.7-2.3) mg/dL Total Bilirubin (0.1-1.2) mg/dL AST (5-40) units/L ALT (7-56) units/L Alkaline Phosphatase (35-129) units/L Total Protein (6.3-8.2) g/dL Albumin (3.9-5) g/dL Albumin/Globulin Ratio % Urine Color (Yellow) Urine Turbidity (Clear) Urine pH (5.0-7.0) Ur Specific [place] (1.003-1.030) Urine Protein (Negative) mg/dL Urine Glucose (UA) (Negative) mg/dL Urine Ketones (Negative) mg/dL Urine Blood (Negative) Urine Nitrite (Negative) Urine Bilirubin (Negative) Urine Urobilinogen (<2.0) mg/dL Ur Leukocyte Esterase (Negative) Urine WBC (Auto) (0.0-6.0) /HPF Urine RBC (Auto) (0.0-6.0) /HPF Vancomycin Trough (5.0-20.0) ug/mL Blood Type Antibody Screen MI Antibody Screen Crossmatch 06/15/17 06/15/17 06/15/17 Range/Units 17:36 18:28 19:30 WBC (4.5-11.0) K/mm3 RBC (3.65-5.03) M/mm3 Hgb (11.8-15.2) gm/dl Hct (35.5-45.6) % MCV (84-94) fl MCH (28-32) pg MCHC (32-34) % RDW (13.2-15.2) % Plt Count (140-440) K/mm3 Lymph % (Auto) (13.4-35.0) % [place] % (Auto) (0.0-7.3) % Eos % (Auto) (0.0-4.3) % Baso % (Auto) (0.0-1.8) % Lymph # (1.2-5.4) K/mm3 [place] # (0.0-0.8) K/mm3 Eos # (0.0-0.4) K/mm3 Baso # (0.0-0.1) K/mm3 Add Manual Diff Total Counted Seg Neutrophils % (40.0-70.0) % Seg Neuts % (Manual) (40.0-70.0) % Band Neutrophils % % Lymphocytes % (Manual) (13.4-35.0) % Reactive Lymphs % (Man) % Monocytes % (Manual) (0.0-7.3) % Eosinophils % (Manual) (0.0-4.3) % Basophils % (Manual) (0.0-1.8) % Metamyelocytes % % Myelocytes % % Promyelocytes % % Blast Cells % % Nucleated RBC % Seg Neutrophils # (1.8-7.7) K/mm3 Seg Neutrophils # Man (1.8-7.7) K/mm3 Band Neutrophils # K/mm3 Lymphocytes # (Manual) (1.2-5.4) K/mm3 Abs React Lymphs (Man) K/mm3 Monocytes # (Manual) (0.0-0.8) K/mm3 Eosinophils # (Manual) (0.0-0.4) K/mm3 Basophils # (Manual) (0.0-0.1) K/mm3 Metamyelocytes # K/mm3 Myelocytes # K/mm3 Promyelocytes # K/mm3 Blast Cells # K/mm3 WBC Morphology Hypersegmented Neuts Hyposegmented Neuts Hypogranular Neuts Smudge Cells Toxic Granulation Toxic Vacuolation Dohle Bodies Pelger-Huet Anomaly Gisella Rods Platelet Estimate Clumped Platelets Plt Clumps, EDTA Large Platelets Giant Platelets Platelet Satelliting Plt Morphology Comment RBC Morphology Dimorphic RBCs Polychromasia Hypochromasia Poikilocytosis Anisocytosis Microcytosis Macrocytosis Spherocytes Pappenheimer Bodies Sickle Cells Target Cells Tear Drop Cells Ovalocytes Helmet Cells [place] Bodies [place] Rings [place] Cells Bite Cells Crenated Cell Elliptocytes Acanthocytes (Spur) Rouleaux Hemoglobin C Crystals Schistocytes Malaria parasites Alex Bodies Hem Pathologist Commnt PT (12.2-14.9) Sec. INR (0.87-1.13) APTT (24.2-36.6) Sec. POC ABG pH (7.35-7.45) POC ABG pCO2 (35-45) POC ABG pO2 (80-105) POC ABG HCO3 POC ABG Total CO2 POC ABG O2 Sat POC ABG Base Excess VBG pH (7.320-7.420) FiO2 % Sodium (137-145) mmol/L Potassium (3.6-5.0) mmol/L Chloride (98-107) mmol/L Carbon Dioxide (22-30) mmol/L Anion Gap mmol/L BUN (9-20) mg/dL Creatinine (0.8-1.5) mg/dL Estimated GFR ml/min BUN/Creatinine Ratio % Glucose (75-100) mg/dL POC Glucose 121 H 105 109 H (70-105) Lactic Acid (0.7-2.0) mmol/L Calcium (8.4-10.2) mg/dL Magnesium (1.7-2.3) mg/dL Total Bilirubin (0.1-1.2) mg/dL AST (5-40) units/L ALT (7-56) units/L Alkaline Phosphatase (35-129) units/L Total Protein (6.3-8.2) g/dL Albumin (3.9-5) g/dL Albumin/Globulin Ratio % Urine Color (Yellow) Urine Turbidity (Clear) Urine pH (5.0-7.0) Ur Specific [place] (1.003-1.030) Urine Protein (Negative) mg/dL Urine Glucose (UA) (Negative) mg/dL Urine Ketones (Negative) mg/dL Urine Blood (Negative) Urine Nitrite (Negative) Urine Bilirubin (Negative) Urine Urobilinogen (<2.0) mg/dL Ur Leukocyte Esterase (Negative) Urine WBC (Auto) (0.0-6.0) /HPF Urine RBC (Auto) (0.0-6.0) /HPF Vancomycin Trough (5.0-20.0) ug/mL Blood Type Antibody Screen MI Antibody Screen Crossmatch 06/15/17 06/15/17 06/15/17 Range/Units 20:51 21:42 23:27 WBC (4.5-11.0) K/mm3 RBC (3.65-5.03) M/mm3 Hgb (11.8-15.2) gm/dl Hct (35.5-45.6) % MCV (84-94) fl MCH (28-32) pg MCHC (32-34) % RDW (13.2-15.2) % Plt Count (140-440) K/mm3 Lymph % (Auto) (13.4-35.0) % [place] % (Auto) (0.0-7.3) % Eos % (Auto) (0.0-4.3) % Baso % (Auto) (0.0-1.8) % Lymph # (1.2-5.4) K/mm3 [place] # (0.0-0.8) K/mm3 Eos # (0.0-0.4) K/mm3 Baso # (0.0-0.1) K/mm3 Add Manual Diff Total Counted Seg Neutrophils % (40.0-70.0) % Seg Neuts % (Manual) (40.0-70.0) % Band Neutrophils % % Lymphocytes % (Manual) (13.4-35.0) % Reactive Lymphs % (Man) % Monocytes % (Manual) (0.0-7.3) % Eosinophils % (Manual) (0.0-4.3) % Basophils % (Manual) (0.0-1.8) % Metamyelocytes % % Myelocytes % % Promyelocytes % % Blast Cells % % Nucleated RBC % Seg Neutrophils # (1.8-7.7) K/mm3 Seg Neutrophils # Man (1.8-7.7) K/mm3 Band Neutrophils # K/mm3 Lymphocytes # (Manual) (1.2-5.4) K/mm3 Abs React Lymphs (Man) K/mm3 Monocytes # (Manual) (0.0-0.8) K/mm3 Eosinophils # (Manual) (0.0-0.4) K/mm3 Basophils # (Manual) (0.0-0.1) K/mm3 Metamyelocytes # K/mm3 Myelocytes # K/mm3 Promyelocytes # K/mm3 Blast Cells # K/mm3 WBC Morphology Hypersegmented Neuts Hyposegmented Neuts Hypogranular Neuts Smudge Cells Toxic Granulation Toxic Vacuolation Dohle Bodies Pelger-Huet Anomaly Gisella Rods Platelet Estimate Clumped Platelets Plt Clumps, EDTA Large Platelets Giant Platelets Platelet Satelliting Plt Morphology Comment RBC Morphology Dimorphic RBCs Polychromasia Hypochromasia Poikilocytosis Anisocytosis Microcytosis Macrocytosis Spherocytes Pappenheimer Bodies Sickle Cells Target Cells Tear Drop Cells Ovalocytes Helmet Cells [place] Bodies [place] Rings [place] Cells Bite Cells Crenated Cell Elliptocytes Acanthocytes (Spur) Rouleaux Hemoglobin C Crystals Schistocytes Malaria parasites Alex Bodies Hem Pathologist Commnt PT (12.2-14.9) Sec. INR (0.87-1.13) APTT (24.2-36.6) Sec. POC ABG pH (7.35-7.45) POC ABG pCO2 (35-45) POC ABG pO2 (80-105) POC ABG HCO3 POC ABG Total CO2 POC ABG O2 Sat POC ABG Base Excess VBG pH (7.320-7.420) FiO2 % Sodium (137-145) mmol/L Potassium (3.6-5.0) mmol/L Chloride (98-107) mmol/L Carbon Dioxide (22-30) mmol/L Anion Gap mmol/L BUN (9-20) mg/dL Creatinine (0.8-1.5) mg/dL Estimated GFR ml/min BUN/Creatinine Ratio % Glucose (75-100) mg/dL POC Glucose 112 H 122 H 142 H (70-105) Lactic Acid (0.7-2.0) mmol/L Calcium (8.4-10.2) mg/dL Magnesium (1.7-2.3) mg/dL Total Bilirubin (0.1-1.2) mg/dL AST (5-40) units/L ALT (7-56) units/L Alkaline Phosphatase (35-129) units/L Total Protein (6.3-8.2) g/dL Albumin (3.9-5) g/dL Albumin/Globulin Ratio % Urine Color (Yellow) Urine Turbidity (Clear) Urine pH (5.0-7.0) Ur Specific [place] (1.003-1.030) Urine Protein (Negative) mg/dL Urine Glucose (UA) (Negative) mg/dL Urine Ketones (Negative) mg/dL Urine Blood (Negative) Urine Nitrite (Negative) Urine Bilirubin (Negative) Urine Urobilinogen (<2.0) mg/dL Ur Leukocyte Esterase (Negative) Urine WBC (Auto) (0.0-6.0) /HPF Urine RBC (Auto) (0.0-6.0) /HPF Vancomycin Trough (5.0-20.0) ug/mL Blood Type Antibody Screen MI Antibody Screen Crossmatch 06/16/17 06/16/17 06/16/17 Range/Units 01:11 02:03 02:57 WBC (4.5-11.0) K/mm3 RBC (3.65-5.03) M/mm3 Hgb (11.8-15.2) gm/dl Hct (35.5-45.6) % MCV (84-94) fl MCH (28-32) pg MCHC (32-34) % RDW (13.2-15.2) % Plt Count (140-440) K/mm3 Lymph % (Auto) (13.4-35.0) % [place] % (Auto) (0.0-7.3) % Eos % (Auto) (0.0-4.3) % Baso % (Auto) (0.0-1.8) % Lymph # (1.2-5.4) K/mm3 [place] # (0.0-0.8) K/mm3 Eos # (0.0-0.4) K/mm3 Baso # (0.0-0.1) K/mm3 Add Manual Diff Total Counted Seg Neutrophils % (40.0-70.0) % Seg Neuts % (Manual) (40.0-70.0) % Band Neutrophils % % Lymphocytes % (Manual) (13.4-35.0) % Reactive Lymphs % (Man) % Monocytes % (Manual) (0.0-7.3) % Eosinophils % (Manual) (0.0-4.3) % Basophils % (Manual) (0.0-1.8) % Metamyelocytes % % Myelocytes % % Promyelocytes % % Blast Cells % % Nucleated RBC % Seg Neutrophils # (1.8-7.7) K/mm3 Seg Neutrophils # Man (1.8-7.7) K/mm3 Band Neutrophils # K/mm3 Lymphocytes # (Manual) (1.2-5.4) K/mm3 Abs React Lymphs (Man) K/mm3 Monocytes # (Manual) (0.0-0.8) K/mm3 Eosinophils # (Manual) (0.0-0.4) K/mm3 Basophils # (Manual) (0.0-0.1) K/mm3 Metamyelocytes # K/mm3 Myelocytes # K/mm3 Promyelocytes # K/mm3 Blast Cells # K/mm3 WBC Morphology Hypersegmented Neuts Hyposegmented Neuts Hypogranular Neuts Smudge Cells Toxic Granulation Toxic Vacuolation Dohle Bodies Pelger-Huet Anomaly Gisella Rods Platelet Estimate Clumped Platelets Plt Clumps, EDTA Large Platelets Giant Platelets Platelet Satelliting Plt Morphology Comment RBC Morphology Dimorphic RBCs Polychromasia Hypochromasia Poikilocytosis Anisocytosis Microcytosis Macrocytosis Spherocytes Pappenheimer Bodies Sickle Cells Target Cells Tear Drop Cells Ovalocytes Helmet Cells [place] Bodies [place] Rings Val[place] Cells Bite Cells Crenated Cell Elliptocytes Acanthocytes (Spur) Rouleaux Hemoglobin C Crystals Schistocytes Malaria parasites Alex Bodies Hem Pathologist Commnt PT (12.2-14.9) Sec. INR (0.87-1.13) APTT (24.2-36.6) Sec. POC ABG pH (7.35-7.45) POC ABG pCO2 (35-45) POC ABG pO2 (80-105) POC ABG HCO3 POC ABG Total CO2 POC ABG O2 Sat POC ABG Base Excess VBG pH (7.320-7.420) FiO2 % Sodium (137-145) mmol/L Potassium (3.6-5.0) mmol/L Chloride (98-107) mmol/L Carbon Dioxide (22-30) mmol/L Anion Gap mmol/L BUN (9-20) mg/dL Creatinine (0.8-1.5) mg/dL Estimated GFR ml/min BUN/Creatinine Ratio % Glucose (75-100) mg/dL POC Glucose 162 H 117 H 106 H (70-105) Lactic Acid (0.7-2.0) mmol/L Calcium (8.4-10.2) mg/dL Magnesium (1.7-2.3) mg/dL Total Bilirubin (0.1-1.2) mg/dL AST (5-40) units/L ALT (7-56) units/L Alkaline Phosphatase (35-129) units/L Total Protein (6.3-8.2) g/dL Albumin (3.9-5) g/dL Albumin/Globulin Ratio % Urine Color (Yellow) Urine Turbidity (Clear) Urine pH (5.0-7.0) Ur Specific [place] (1.003-1.030) Urine Protein (Negative) mg/dL Urine Glucose (UA) (Negative) mg/dL Urine Ketones (Negative) mg/dL Urine Blood (Negative) Urine Nitrite (Negative) Urine Bilirubin (Negative) Urine Urobilinogen (<2.0) mg/dL Ur Leukocyte Esterase (Negative) Urine WBC (Auto) (0.0-6.0) /HPF Urine RBC (Auto) (0.0-6.0) /HPF Vancomycin Trough (5.0-20.0) ug/mL Blood Type Antibody Screen MI Antibody Screen Crossmatch 06/16/17 06/16/17 06/16/17 Range/Units 04:05 05:09 05:23 WBC (4.5-11.0) K/mm3 RBC (3.65-5.03) M/mm3 Hgb (11.8-15.2) gm/dl Hct (35.5-45.6) % MCV (84-94) fl MCH (28-32) pg MCHC (32-34) % RDW (13.2-15.2) % Plt Count (140-440) K/mm3 Lymph % (Auto) (13.4-35.0) % [place] % (Auto) (0.0-7.3) % Eos % (Auto) (0.0-4.3) % Baso % (Auto) (0.0-1.8) % Lymph # (1.2-5.4) K/mm3 [place] # (0.0-0.8) K/mm3 Eos # (0.0-0.4) K/mm3 Baso # (0.0-0.1) K/mm3 Add Manual Diff Total Counted Seg Neutrophils % (40.0-70.0) % Seg Neuts % (Manual) (40.0-70.0) % Band Neutrophils % % Lymphocytes % (Manual) (13.4-35.0) % Reactive Lymphs % (Man) % Monocytes % (Manual) (0.0-7.3) % Eosinophils % (Manual) (0.0-4.3) % Basophils % (Manual) (0.0-1.8) % Metamyelocytes % % Myelocytes % % Promyelocytes % % Blast Cells % % Nucleated RBC % Seg Neutrophils # (1.8-7.7) K/mm3 Seg Neutrophils # Man (1.8-7.7) K/mm3 Band Neutrophils # K/mm3 Lymphocytes # (Manual) (1.2-5.4) K/mm3 Abs React Lymphs (Man) K/mm3 Monocytes # (Manual) (0.0-0.8) K/mm3 Eosinophils # (Manual) (0.0-0.4) K/mm3 Basophils # (Manual) (0.0-0.1) K/mm3 Metamyelocytes # K/mm3 Myelocytes # K/mm3 Promyelocytes # K/mm3 Blast Cells # K/mm3 WBC Morphology Hypersegmented Neuts Hyposegmented Neuts Hypogranular Neuts Smudge Cells Toxic Granulation Toxic Vacuolation Dohle Bodies Pelger-Huet Anomaly Gisella Rods Platelet Estimate Clumped Platelets Plt Clumps, EDTA Large Platelets Giant Platelets Platelet Satelliting Plt Morphology Comment RBC Morphology Dimorphic RBCs Polychromasia Hypochromasia Poikilocytosis Anisocytosis Microcytosis Macrocytosis Spherocytes Pappenheimer Bodies Sickle Cells Target Cells Tear Drop Cells Ovalocytes Helmet Cells [place] Bodies [place] Rings [place] Cells Bite Cells Crenated Cell Elliptocytes Acanthocytes (Spur) Rouleaux Hemoglobin C Crystals Schistocytes Malaria parasites Alex Bodies Hem Pathologist Commnt PT (12.2-14.9) Sec. INR (0.87-1.13) APTT (24.2-36.6) Sec. POC ABG pH (7.35-7.45) POC ABG pCO2 (35-45) POC ABG pO2 (80-105) POC ABG HCO3 POC ABG Total CO2 POC ABG O2 Sat POC ABG Base Excess VBG pH (7.320-7.420) FiO2 % Sodium (137-145) mmol/L Potassium (3.6-5.0) mmol/L Chloride (98-107) mmol/L Carbon Dioxide (22-30) mmol/L Anion Gap mmol/L BUN (9-20) mg/dL Creatinine (0.8-1.5) mg/dL Estimated GFR ml/min BUN/Creatinine Ratio % Glucose (75-100) mg/dL POC Glucose 108 H 114 H 125 H (70-105) Lactic Acid (0.7-2.0) mmol/L Calcium (8.4-10.2) mg/dL Magnesium (1.7-2.3) mg/dL Total Bilirubin (0.1-1.2) mg/dL AST (5-40) units/L ALT (7-56) units/L Alkaline Phosphatase (35-129) units/L Total Protein (6.3-8.2) g/dL Albumin (3.9-5) g/dL Albumin/Globulin Ratio % Urine Color (Yellow) Urine Turbidity (Clear) Urine pH (5.0-7.0) Ur Specific [place] (1.003-1.030) Urine Protein (Negative) mg/dL Urine Glucose (UA) (Negative) mg/dL Urine Ketones (Negative) mg/dL Urine Blood (Negative) Urine Nitrite (Negative) Urine Bilirubin (Negative) Urine Urobilinogen (<2.0) mg/dL Ur Leukocyte Esterase (Negative) Urine WBC (Auto) (0.0-6.0) /HPF Urine RBC (Auto) (0.0-6.0) /HPF Vancomycin Trough (5.0-20.0) ug/mL Blood Type Antibody Screen MI Antibody Screen Crossmatch 06/16/17 06/16/17 06/16/17 Range/Units 06:03 06:25 06:25 WBC 14.7 H (4.5-11.0) K/mm3 RBC 3.28 L (3.65-5.03) M/mm3 Hgb 9.8 L (11.8-15.2) gm/dl Hct 29.1 L (35.5-45.6) % MCV 89 (84-94) fl MCH 30 (28-32) pg MCHC 34 (32-34) % RDW 15.7 H (13.2-15.2) % Plt Count 117 L (140-440) K/mm3 Lymph % (Auto) (13.4-35.0) % [place] % (Auto) Date Night Sitter (0.0-7.3) % Eos % (Auto) (0.0-4.3) % Baso % (Auto) (0.0-1.8) % Lymph # (1.2-5.4) K/mm3 [place] # (0.0-0.8) K/mm3 Eos # (0.0-0.4) K/mm3 Baso # (0.0-0.1) K/mm3 Add Manual Diff Complete Total Counted 100 Seg Neutrophils % (40.0-70.0) % Seg Neuts % (Manual) 81.0 H (40.0-70.0) % Band Neutrophils % 0 % Lymphocytes % (Manual) 3.0 L (13.4-35.0) % Reactive Lymphs % (Man) 0 % Monocytes % (Manual) 15.0 H (0.0-7.3) % Eosinophils % (Manual) 0 (0.0-4.3) % Basophils % (Manual) 1.0 (0.0-1.8) % Metamyelocytes % 0 % Myelocytes % 0 % Promyelocytes % 0 % Blast Cells % 0 % Nucleated RBC % Not Reportable Seg Neutrophils # (1.8-7.7) K/mm3 Seg Neutrophils # Man 11.9 H (1.8-7.7) K/mm3 Band Neutrophils # 0.0 K/mm3 Lymphocytes # (Manual) 0.4 L (1.2-5.4) K/mm3 Abs React Lymphs (Man) 0.0 K/mm3 Monocytes # (Manual) 2.2 H (0.0-0.8) K/mm3 Eosinophils # (Manual) 0.0 (0.0-0.4) K/mm3 Basophils # (Manual) 0.1 (0.0-0.1) K/mm3 Metamyelocytes # 0.0 K/mm3 Myelocytes # 0.0 K/mm3 Promyelocytes # 0.0 K/mm3 Blast Cells # 0.0 K/mm3 WBC Morphology Not Reportable Hypersegmented Neuts Not Reportable Hyposegmented Neuts Not Reportable Hypogranular Neuts Not Reportable Smudge Cells Not Reportable Toxic Granulation Not Reportable Toxic Vacuolation Not Reportable Dohle Bodies Not Reportable Pelger-Huet Anomaly Not Reportable Gisella Rods Not Reportable Platelet Estimate Consistent w auto Clumped Platelets Not Reportable Plt Clumps, EDTA Not Reportable Large Platelets Not Reportable Giant Platelets Not Reportable Platelet Satelliting Not Reportable Plt Morphology Comment Not Reportable RBC Morphology Not Reportable Dimorphic RBCs Not Reportable Polychromasia Not Reportable Hypochromasia Not Reportable Poikilocytosis Not Reportable Anisocytosis 2+ Microcytosis Not Reportable Macrocytosis Not Reportable Spherocytes Not Reportable Pappenheimer Bodies Not Reportable Sickle Cells Not Reportable Target Cells Not Reportable Tear Drop Cells Not Reportable Ovalocytes Not Reportable Helmet Cells Not Reportable [place] Bodies Not Reportable [place] Rings Not Reportable [place] Cells Not Reportable Bite Cells Not Reportable Crenated Cell Not Reportable Elliptocytes Not Reportable Acanthocytes (Spur) Not Reportable Rouleaux Not Reportable Hemoglobin C Crystals Not Reportable Schistocytes Not Reportable Malaria parasites Not Reportable Alex Bodies Not Reportable Hem Pathologist Commnt No PT (12.2-14.9) Sec. INR (0.87-1.13) APTT (24.2-36.6) Sec. POC ABG pH (7.35-7.45) POC ABG pCO2 (35-45) POC ABG pO2 (80-105) POC ABG HCO3 POC ABG Total CO2 POC ABG O2 Sat POC ABG Base Excess VBG pH (7.320-7.420) FiO2 % Sodium 155 H (137-145) mmol/L Potassium 4.1 (3.6-5.0) mmol/L Chloride 117.9 H (98-107) mmol/L Carbon Dioxide 22 (22-30) mmol/L Anion Gap 19 mmol/L BUN 22 H (9-20) mg/dL Creatinine 1.5 (0.8-1.5) mg/dL Estimated GFR 55 ml/min BUN/Creatinine Ratio 14.66 % Glucose 107 H (75-100) mg/dL POC Glucose 138 H (70-105) Lactic Acid (0.7-2.0) mmol/L Calcium 7.9 L (8.4-10.2) mg/dL Magnesium (1.7-2.3) mg/dL Total Bilirubin 0.60 (0.1-1.2) mg/dL AST 57 H (5-40) units/L ALT 29 (7-56) units/L Alkaline Phosphatase 51 (35-129) units/L Total Protein 5.4 L (6.3-8.2) g/dL Albumin 2.4 L (3.9-5) g/dL Albumin/Globulin Ratio 0.8 % Urine Color (Yellow) Urine Turbidity (Clear) Urine pH (5.0-7.0) Ur Specific [place] (1.003-1.030) Urine Protein (Negative) mg/dL Urine Glucose (UA) (Negative) mg/dL Urine Ketones (Negative) mg/dL Urine Blood (Negative) Urine Nitrite (Negative) Urine Bilirubin (Negative) Urine Urobilinogen (<2.0) mg/dL Ur Leukocyte Esterase (Negative) Urine WBC (Auto) (0.0-6.0) /HPF Urine RBC (Auto) (0.0-6.0) /HPF Vancomycin Trough (5.0-20.0) ug/mL Blood Type Antibody Screen MI Antibody Screen Crossmatch 06/16/17 06/16/17 06/16/17 Range/Units 07:07 08:00 09:07 WBC (4.5-11.0) K/mm3 RBC (3.65-5.03) M/mm3 Hgb (11.8-15.2) gm/dl Hct (35.5-45.6) % MCV (84-94) fl MCH (28-32) pg MCHC (32-34) % RDW (13.2-15.2) % Plt Count (140-440) K/mm3 Lymph % (Auto) (13.4-35.0) % [place] % (Auto) (0.0-7.3) % Eos % (Auto) (0.0-4.3) % Baso % (Auto) (0.0-1.8) % Lymph # (1.2-5.4) K/mm3 [place] # (0.0-0.8) K/mm3 Eos # (0.0-0.4) K/mm3 Baso # (0.0-0.1) K/mm3 Add Manual Diff Total Counted Seg Neutrophils % (40.0-70.0) % Seg Neuts % (Manual) (40.0-70.0) % Band Neutrophils % % Lymphocytes % (Manual) (13.4-35.0) % Reactive Lymphs % (Man) % Monocytes % (Manual) (0.0-7.3) % Eosinophils % (Manual) (0.0-4.3) % Basophils % (Manual) (0.0-1.8) % Metamyelocytes % % Myelocytes % % Promyelocytes % % Blast Cells % % Nucleated RBC % Seg Neutrophils # (1.8-7.7) K/mm3 Seg Neutrophils # Man (1.8-7.7) K/mm3 Band Neutrophils # K/mm3 Lymphocytes # (Manual) (1.2-5.4) K/mm3 Abs React Lymphs (Man) K/mm3 Monocytes # (Manual) (0.0-0.8) K/mm3 Eosinophils # (Manual) (0.0-0.4) K/mm3 Basophils # (Manual) (0.0-0.1) K/mm3 Metamyelocytes # K/mm3 Myelocytes # K/mm3 Promyelocytes # K/mm3 Blast Cells # K/mm3 WBC Morphology Hypersegmented Neuts Hyposegmented Neuts Hypogranular Neuts Smudge Cells Toxic Granulation Toxic Vacuolation Dohle Bodies Pelger-Huet Anomaly Gisella Rods Platelet Estimate Clumped Platelets Plt Clumps, EDTA Large Platelets Giant Platelets Platelet Satelliting Plt Morphology Comment RBC Morphology Dimorphic RBCs Polychromasia Hypochromasia Poikilocytosis Anisocytosis Microcytosis Macrocytosis Spherocytes Pappenheimer Bodies Sickle Cells Target Cells Tear Drop Cells Ovalocytes Helmet Cells [place] Bodies [place] Rings [place] Cells Bite Cells Crenated Cell Elliptocytes Acanthocytes (Spur) Rouleaux Hemoglobin C Crystals Schistocytes Malaria parasites Alex Bodies Hem Pathologist Commnt PT (12.2-14.9) Sec. INR (0.87-1.13) APTT (24.2-36.6) Sec. POC ABG pH (7.35-7.45) POC ABG pCO2 (35-45) POC ABG pO2 (80-105) POC ABG HCO3 POC ABG Total CO2 POC ABG O2 Sat POC ABG Base Excess VBG pH (7.320-7.420) FiO2 % Sodium (137-145) mmol/L Potassium (3.6-5.0) mmol/L Chloride (98-107) mmol/L Carbon Dioxide (22-30) mmol/L Anion Gap mmol/L BUN (9-20) mg/dL Creatinine (0.8-1.5) mg/dL Estimated GFR ml/min BUN/Creatinine Ratio % Glucose (75-100) mg/dL POC Glucose 127 H 113 H 106 H (70-105) Lactic Acid (0.7-2.0) mmol/L Calcium (8.4-10.2) mg/dL Magnesium (1.7-2.3) mg/dL Total Bilirubin (0.1-1.2) mg/dL AST (5-40) units/L ALT (7-56) units/L Alkaline Phosphatase (35-129) units/L Total Protein (6.3-8.2) g/dL Albumin (3.9-5) g/dL Albumin/Globulin Ratio % Urine Color (Yellow) Urine Turbidity (Clear) Urine pH (5.0-7.0) Ur Specific [place] (1.003-1.030) Urine Protein (Negative) mg/dL Urine Glucose (UA) (Negative) mg/dL Urine Ketones (Negative) mg/dL Urine Blood (Negative) Urine Nitrite (Negative) Urine Bilirubin (Negative) Urine Urobilinogen (<2.0) mg/dL Ur Leukocyte Esterase (Negative) Urine WBC (Auto) (0.0-6.0) /HPF Urine RBC (Auto) (0.0-6.0) /HPF Vancomycin Trough (5.0-20.0) ug/mL Blood Type Antibody Screen MI Antibody Screen Crossmatch 06/16/17 06/16/17 06/16/17 Range/Units 10:11 10:59 11:28 WBC (4.5-11.0) K/mm3 RBC (3.65-5.03) M/mm3 Hgb (11.8-15.2) gm/dl Hct (35.5-45.6) % MCV (84-94) fl MCH (28-32) pg MCHC (32-34) % RDW (13.2-15.2) % Plt Count (140-440) K/mm3 Lymph % (Auto) (13.4-35.0) % [place] % (Auto) (0.0-7.3) % Eos % (Auto) (0.0-4.3) % Baso % (Auto) (0.0-1.8) % Lymph # (1.2-5.4) K/mm3 [place] # (0.0-0.8) K/mm3 Eos # (0.0-0.4) K/mm3 Baso # (0.0-0.1) K/mm3 Add Manual Diff Total Counted Seg Neutrophils % (40.0-70.0) % Seg Neuts % (Manual) (40.0-70.0) % Band Neutrophils % % Lymphocytes % (Manual) (13.4-35.0) % Reactive Lymphs % (Man) % Monocytes % (Manual) (0.0-7.3) % Eosinophils % (Manual) (0.0-4.3) % Basophils % (Manual) (0.0-1.8) % Metamyelocytes % % Myelocytes % % Promyelocytes % % Blast Cells % % Nucleated RBC % Seg Neutrophils # (1.8-7.7) K/mm3 Seg Neutrophils # Man (1.8-7.7) K/mm3 Band Neutrophils # K/mm3 Lymphocytes # (Manual) (1.2-5.4) K/mm3 Abs React Lymphs (Man) K/mm3 Monocytes # (Manual) (0.0-0.8) K/mm3 Eosinophils # (Manual) (0.0-0.4) K/mm3 Basophils # (Manual) (0.0-0.1) K/mm3 Metamyelocytes # K/mm3 Myelocytes # K/mm3 Promyelocytes # K/mm3 Blast Cells # K/mm3 WBC Morphology Hypersegmented Neuts Hyposegmented Neuts Hypogranular Neuts Smudge Cells Toxic Granulation Toxic Vacuolation Dohle Bodies Pelger-Huet Anomaly Gisella Rods Platelet Estimate Clumped Platelets Plt Clumps, EDTA Large Platelets Giant Platelets Platelet Satelliting Plt Morphology Comment RBC Morphology Dimorphic RBCs Polychromasia Hypochromasia Poikilocytosis Anisocytosis Microcytosis Macrocytosis Spherocytes Pappenheimer Bodies Sickle Cells Target Cells Tear Drop Cells Ovalocytes Helmet Cells [place] Bodies [place] Rings [place] Cells Bite Cells Crenated Cell Elliptocytes Acanthocytes (Spur) Rouleaux Hemoglobin C Crystals Schistocytes Malaria parasites Alex Bodies Hem Pathologist Commnt PT (12.2-14.9) Sec. INR (0.87-1.13) APTT (24.2-36.6) Sec. POC ABG pH 7.424 (7.35-7.45) POC ABG pCO2 30.3 L (35-45) POC ABG pO2 118 H (80-105) POC ABG HCO3 19.8 POC ABG Total CO2 21 POC ABG O2 Sat 99 POC ABG Base Excess -5 VBG pH (7.320-7.420) FiO2 30 % Sodium (137-145) mmol/L Potassium (3.6-5.0) mmol/L Chloride (98-107) mmol/L Carbon Dioxide (22-30) mmol/L Anion Gap mmol/L BUN (9-20) mg/dL Creatinine (0.8-1.5) mg/dL Estimated GFR ml/min BUN/Creatinine Ratio % Glucose (75-100) mg/dL POC Glucose 107 H 110 H (70-105) Lactic Acid (0.7-2.0) mmol/L Calcium (8.4-10.2) mg/dL Magnesium (1.7-2.3) mg/dL Total Bilirubin (0.1-1.2) mg/dL AST (5-40) units/L ALT (7-56) units/L Alkaline Phosphatase (35-129) units/L Total Protein (6.3-8.2) g/dL Albumin (3.9-5) g/dL Albumin/Globulin Ratio % Urine Color (Yellow) Urine Turbidity (Clear) Urine pH (5.0-7.0) Ur Specific [place] (1.003-1.030) Urine Protein (Negative) mg/dL Urine Glucose (UA) (Negative) mg/dL Urine Ketones (Negative) mg/dL Urine Blood (Negative) Urine Nitrite (Negative) Urine Bilirubin (Negative) Urine Urobilinogen (<2.0) mg/dL Ur Leukocyte Esterase (Negative) Urine WBC (Auto) (0.0-6.0) /HPF Urine RBC (Auto) (0.0-6.0) /HPF Vancomycin Trough (5.0-20.0) ug/mL Blood Type Antibody Screen MI Antibody Screen Crossmatch 06/16/17 06/16/17 06/16/17 Range/Units 12:11 13:13 14:43 WBC (4.5-11.0) K/mm3 RBC (3.65-5.03) M/mm3 Hgb (11.8-15.2) gm/dl Hct (35.5-45.6) % MCV (84-94) fl MCH (28-32) pg MCHC (32-34) % RDW (13.2-15.2) % Plt Count (140-440) K/mm3 Lymph % (Auto) (13.4-35.0) % [place] % (Auto) (0.0-7.3) % Eos % (Auto) (0.0-4.3) % Baso % (Auto) (0.0-1.8) % Lymph # (1.2-5.4) K/mm3 [place] # (0.0-0.8) K/mm3 Eos # (0.0-0.4) K/mm3 Baso # (0.0-0.1) K/mm3 Add Manual Diff Total Counted Seg Neutrophils % (40.0-70.0) % Seg Neuts % (Manual) (40.0-70.0) % Band Neutrophils % % Lymphocytes % (Manual) (13.4-35.0) % Reactive Lymphs % (Man) % Monocytes % (Manual) (0.0-7.3) % Eosinophils % (Manual) (0.0-4.3) % Basophils % (Manual) (0.0-1.8) % Metamyelocytes % % Myelocytes % % Promyelocytes % % Blast Cells % % Nucleated RBC % Seg Neutrophils # (1.8-7.7) K/mm3 Seg Neutrophils # Man (1.8-7.7) K/mm3 Band Neutrophils # K/mm3 Lymphocytes # (Manual) (1.2-5.4) K/mm3 Abs React Lymphs (Man) K/mm3 Monocytes # (Manual) (0.0-0.8) K/mm3 Eosinophils # (Manual) (0.0-0.4) K/mm3 Basophils # (Manual) (0.0-0.1) K/mm3 Metamyelocytes # K/mm3 Myelocytes # K/mm3 Promyelocytes # K/mm3 Blast Cells # K/mm3 WBC Morphology Hypersegmented Neuts Hyposegmented Neuts Hypogranular Neuts Smudge Cells Toxic Granulation Toxic Vacuolation Dohle Bodies Pelger-Huet Anomaly Gisella Rods Platelet Estimate Clumped Platelets Plt Clumps, EDTA Large Platelets Giant Platelets Platelet Satelliting Plt Morphology Comment RBC Morphology Dimorphic RBCs Polychromasia Hypochromasia Poikilocytosis Anisocytosis Microcytosis Macrocytosis Spherocytes Pappenheimer Bodies Sickle Cells Target Cells Tear Drop Cells Ovalocytes Helmet Cells [place] Bodies [place] Rings [place] Cells Bite Cells Crenated Cell Elliptocytes Acanthocytes (Spur) Rouleaux Hemoglobin C Crystals Schistocytes Malaria parasites Alex Bodies Hem Pathologist Commnt PT (12.2-14.9) Sec. INR (0.87-1.13) APTT (24.2-36.6) Sec. POC ABG pH (7.35-7.45) POC ABG pCO2 (35-45) POC ABG pO2 (80-105) POC ABG HCO3 POC ABG Total CO2 POC ABG O2 Sat POC ABG Base Excess VBG pH (7.320-7.420) FiO2 % Sodium (137-145) mmol/L Potassium (3.6-5.0) mmol/L Chloride (98-107) mmol/L Carbon Dioxide (22-30) mmol/L Anion Gap mmol/L BUN (9-20) mg/dL Creatinine (0.8-1.5) mg/dL Estimated GFR ml/min BUN/Creatinine Ratio % Glucose (75-100) mg/dL POC Glucose 109 H 111 H 104 (70-105) Lactic Acid (0.7-2.0) mmol/L Calcium (8.4-10.2) mg/dL Magnesium (1.7-2.3) mg/dL Total Bilirubin (0.1-1.2) mg/dL AST (5-40) units/L ALT (7-56) units/L Alkaline Phosphatase (35-129) units/L Total Protein (6.3-8.2) g/dL Albumin (3.9-5) g/dL Albumin/Globulin Ratio % Urine Color (Yellow) Urine Turbidity (Clear) Urine pH (5.0-7.0) Ur Specific [place] (1.003-1.030) Urine Protein (Negative) mg/dL Urine Glucose (UA) (Negative) mg/dL Urine Ketones (Negative) mg/dL Urine Blood (Negative) Urine Nitrite (Negative) Urine Bilirubin (Negative) Urine Urobilinogen (<2.0) mg/dL Ur Leukocyte Esterase (Negative) Urine WBC (Auto) (0.0-6.0) /HPF Urine RBC (Auto) (0.0-6.0) /HPF Vancomycin Trough (5.0-20.0) ug/mL Blood Type Antibody Screen MI Antibody Screen Crossmatch 06/16/17 06/16/17 06/16/17 Range/Units 15:40 16:38 17:22 WBC (4.5-11.0) K/mm3 RBC (3.65-5.03) M/mm3 Hgb (11.8-15.2) gm/dl Hct (35.5-45.6) % MCV (84-94) fl MCH (28-32) pg MCHC (32-34) % RDW (13.2-15.2) % Plt Count (140-440) K/mm3 Lymph % (Auto) (13.4-35.0) % [place] % (Auto) (0.0-7.3) % Eos % (Auto) (0.0-4.3) % Baso % (Auto) (0.0-1.8) % Lymph # (1.2-5.4) K/mm3 [place] # (0.0-0.8) K/mm3 Eos # (0.0-0.4) K/mm3 Baso # (0.0-0.1) K/mm3 Add Manual Diff Total Counted Seg Neutrophils % (40.0-70.0) % Seg Neuts % (Manual) (40.0-70.0) % Band Neutrophils % % Lymphocytes % (Manual) (13.4-35.0) % Reactive Lymphs % (Man) % Monocytes % (Manual) (0.0-7.3) % Eosinophils % (Manual) (0.0-4.3) % Basophils % (Manual) (0.0-1.8) % Metamyelocytes % % Myelocytes % % Promyelocytes % % Blast Cells % % Nucleated RBC % Seg Neutrophils # (1.8-7.7) K/mm3 Seg Neutrophils # Man (1.8-7.7) K/mm3 Band Neutrophils # K/mm3 Lymphocytes # (Manual) (1.2-5.4) K/mm3 Abs React Lymphs (Man) K/mm3 Monocytes # (Manual) (0.0-0.8) K/mm3 Eosinophils # (Manual) (0.0-0.4) K/mm3 Basophils # (Manual) (0.0-0.1) K/mm3 Metamyelocytes # K/mm3 Myelocytes # K/mm3 Promyelocytes # K/mm3 Blast Cells # K/mm3 WBC Morphology Hypersegmented Neuts Hyposegmented Neuts Hypogranular Neuts Smudge Cells Toxic Granulation Toxic Vacuolation Dohle Bodies Pelger-Huet Anomaly Gisella Rods Platelet Estimate Clumped Platelets Plt Clumps, EDTA Large Platelets Giant Platelets Platelet Satelliting Plt Morphology Comment RBC Morphology Dimorphic RBCs Polychromasia Hypochromasia Poikilocytosis Anisocytosis Microcytosis Macrocytosis Spherocytes Pappenheimer Bodies Sickle Cells Target Cells Tear Drop Cells Ovalocytes Helmet Cells [place] Bodies [place] Rings [place] Cells Bite Cells Crenated Cell Elliptocytes Acanthocytes (Spur) Rouleaux Hemoglobin C Crystals Schistocytes Malaria parasites Alex Bodies Hem Pathologist Commnt PT (12.2-14.9) Sec. INR (0.87-1.13) APTT (24.2-36.6) Sec. POC ABG pH (7.35-7.45) POC ABG pCO2 (35-45) POC ABG pO2 (80-105) POC ABG HCO3 POC ABG Total CO2 POC ABG O2 Sat POC ABG Base Excess VBG pH (7.320-7.420) FiO2 % Sodium (137-145) mmol/L Potassium (3.6-5.0) mmol/L Chloride (98-107) mmol/L Carbon Dioxide (22-30) mmol/L Anion Gap mmol/L BUN (9-20) mg/dL Creatinine (0.8-1.5) mg/dL Estimated GFR ml/min BUN/Creatinine Ratio % Glucose (75-100) mg/dL POC Glucose 143 H 101 104 (70-105) Lactic Acid (0.7-2.0) mmol/L Calcium (8.4-10.2) mg/dL Magnesium (1.7-2.3) mg/dL Total Bilirubin (0.1-1.2) mg/dL AST (5-40) units/L ALT (7-56) units/L Alkaline Phosphatase (35-129) units/L Total Protein (6.3-8.2) g/dL Albumin (3.9-5) g/dL Albumin/Globulin Ratio % Urine Color (Yellow) Urine Turbidity (Clear) Urine pH (5.0-7.0) Ur Specific [place] (1.003-1.030) Urine Protein (Negative) mg/dL Urine Glucose (UA) (Negative) mg/dL Urine Ketones (Negative) mg/dL Urine Blood (Negative) Urine Nitrite (Negative) Urine Bilirubin (Negative) Urine Urobilinogen (<2.0) mg/dL Ur Leukocyte Esterase (Negative) Urine WBC (Auto) (0.0-6.0) /HPF Urine RBC (Auto) (0.0-6.0) /HPF Vancomycin Trough (5.0-20.0) ug/mL Blood Type Antibody Screen MI Antibody Screen Crossmatch 06/16/17 06/16/17 06/16/17 Range/Units 18:18 19:08 20:05 WBC (4.5-11.0) K/mm3 RBC (3.65-5.03) M/mm3 Hgb (11.8-15.2) gm/dl Hct (35.5-45.6) % MCV (84-94) fl MCH (28-32) pg MCHC (32-34) % RDW (13.2-15.2) % Plt Count (140-440) K/mm3 Lymph % (Auto) (13.4-35.0) % [place] % (Auto) (0.0-7.3) % Eos % (Auto) (0.0-4.3) % Baso % (Auto) (0.0-1.8) % Lymph # (1.2-5.4) K/mm3 [place] # (0.0-0.8) K/mm3 Eos # (0.0-0.4) K/mm3 Baso # (0.0-0.1) K/mm3 Add Manual Diff Total Counted Seg Neutrophils % (40.0-70.0) % Seg Neuts % (Manual) (40.0-70.0) % Band Neutrophils % % Lymphocytes % (Manual) (13.4-35.0) % Reactive Lymphs % (Man) % Monocytes % (Manual) (0.0-7.3) % Eosinophils % (Manual) (0.0-4.3) % Basophils % (Manual) (0.0-1.8) % Metamyelocytes % % Myelocytes % % Promyelocytes % % Blast Cells % % Nucleated RBC % Seg Neutrophils # (1.8-7.7) K/mm3 Seg Neutrophils # Man (1.8-7.7) K/mm3 Band Neutrophils # K/mm3 Lymphocytes # (Manual) (1.2-5.4) K/mm3 Abs React Lymphs (Man) K/mm3 Monocytes # (Manual) (0.0-0.8) K/mm3 Eosinophils # (Manual) (0.0-0.4) K/mm3 Basophils # (Manual) (0.0-0.1) K/mm3 Metamyelocytes # K/mm3 Myelocytes # K/mm3 Promyelocytes # K/mm3 Blast Cells # K/mm3 WBC Morphology Hypersegmented Neuts Hyposegmented Neuts Hypogranular Neuts Smudge Cells Toxic Granulation Toxic Vacuolation Dohle Bodies Pelger-Huet Anomaly Gisella Rods Platelet Estimate Clumped Platelets Plt Clumps, EDTA Large Platelets Giant Platelets Platelet Satelliting Plt Morphology Comment RBC Morphology Dimorphic RBCs Polychromasia Hypochromasia Poikilocytosis Anisocytosis Microcytosis Macrocytosis Spherocytes Pappenheimer Bodies Sickle Cells Target Cells Tear Drop Cells Ovalocytes Helmet Cells [place] Bodies [place] Rings [place] Cells Bite Cells Crenated Cell Elliptocytes Acanthocytes (Spur) Rouleaux Hemoglobin C Crystals Schistocytes Malaria parasites Alex Bodies Hem Pathologist Commnt PT (12.2-14.9) Sec. INR (0.87-1.13) APTT (24.2-36.6) Sec. POC ABG pH (7.35-7.45) POC ABG pCO2 (35-45) POC ABG pO2 (80-105) POC ABG HCO3 POC ABG Total CO2 POC ABG O2 Sat POC ABG Base Excess VBG pH (7.320-7.420) FiO2 % Sodium (137-145) mmol/L Potassium (3.6-5.0) mmol/L Chloride (98-107) mmol/L Carbon Dioxide (22-30) mmol/L Anion Gap mmol/L BUN (9-20) mg/dL Creatinine (0.8-1.5) mg/dL Estimated GFR ml/min BUN/Creatinine Ratio % Glucose (75-100) mg/dL POC Glucose 109 H 107 H 106 H (70-105) Lactic Acid (0.7-2.0) mmol/L Calcium (8.4-10.2) mg/dL Magnesium (1.7-2.3) mg/dL Total Bilirubin (0.1-1.2) mg/dL AST (5-40) units/L ALT (7-56) units/L Alkaline Phosphatase (35-129) units/L Total Protein (6.3-8.2) g/dL Albumin (3.9-5) g/dL Albumin/Globulin Ratio % Urine Color (Yellow) Urine Turbidity (Clear) Urine pH (5.0-7.0) Ur Specific [place] (1.003-1.030) Urine Protein (Negative) mg/dL Urine Glucose (UA) (Negative) mg/dL Urine Ketones (Negative) mg/dL Urine Blood (Negative) Urine Nitrite (Negative) Urine Bilirubin (Negative) Urine Urobilinogen (<2.0) mg/dL Ur Leukocyte Esterase (Negative) Urine WBC (Auto) (0.0-6.0) /HPF Urine RBC (Auto) (0.0-6.0) /HPF Vancomycin Trough (5.0-20.0) ug/mL Blood Type Antibody Screen IM Antibody Screen Crossmatch 06/16/17 06/16/17 06/16/17 Range/Units 21:00 22:01 23:13 WBC (4.5-11.0) K/mm3 RBC (3.65-5.03) M/mm3 Hgb (11.8-15.2) gm/dl Hct (35.5-45.6) % MCV (84-94) fl MCH (28-32) pg MCHC (32-34) % RDW (13.2-15.2) % Plt Count (140-440) K/mm3 Lymph % (Auto) (13.4-35.0) % [place] % (Auto) (0.0-7.3) % Eos % (Auto) (0.0-4.3) % Baso % (Auto) (0.0-1.8) % Lymph # (1.2-5.4) K/mm3 [place] # (0.0-0.8) K/mm3 Eos # (0.0-0.4) K/mm3 Baso # (0.0-0.1) K/mm3 Add Manual Diff Total Counted Seg Neutrophils % (40.0-70.0) % Seg Neuts % (Manual) (40.0-70.0) % Band Neutrophils % % Lymphocytes % (Manual) (13.4-35.0) % Reactive Lymphs % (Man) % Monocytes % (Manual) (0.0-7.3) % Eosinophils % (Manual) (0.0-4.3) % Basophils % (Manual) (0.0-1.8) % Metamyelocytes % % Myelocytes % % Promyelocytes % % Blast Cells % % Nucleated RBC % Seg Neutrophils # (1.8-7.7) K/mm3 Seg Neutrophils # Man (1.8-7.7) K/mm3 Band Neutrophils # K/mm3 Lymphocytes # (Manual) (1.2-5.4) K/mm3 Abs React Lymphs (Man) K/mm3 Monocytes # (Manual) (0.0-0.8) K/mm3 Eosinophils # (Manual) (0.0-0.4) K/mm3 Basophils # (Manual) (0.0-0.1) K/mm3 Metamyelocytes # K/mm3 Myelocytes # K/mm3 Promyelocytes # K/mm3 Blast Cells # K/mm3 WBC Morphology Hypersegmented Neuts Hyposegmented Neuts Hypogranular Neuts Smudge Cells Toxic Granulation Toxic Vacuolation Dohle Bodies Pelger-Huet Anomaly Gisella Rods Platelet Estimate Clumped Platelets Plt Clumps, EDTA Large Platelets Giant Platelets Platelet Satelliting Plt Morphology Comment RBC Morphology Dimorphic RBCs Polychromasia Hypochromasia Poikilocytosis Anisocytosis Microcytosis Macrocytosis Spherocytes Pappenheimer Bodies Sickle Cells Target Cells Tear Drop Cells Ovalocytes Helmet Cells [place] Bodies [place] Rings [place] Cells Bite Cells Crenated Cell Elliptocytes Acanthocytes (Spur) Rouleaux Hemoglobin C Crystals Schistocytes Malaria parasites Alex Bodies Hem Pathologist Commnt PT (12.2-14.9) Sec. INR (0.87-1.13) APTT (24.2-36.6) Sec. POC ABG pH (7.35-7.45) POC ABG pCO2 (35-45) POC ABG pO2 (80-105) POC ABG HCO3 POC ABG Total CO2 POC ABG O2 Sat POC ABG Base Excess VBG pH (7.320-7.420) FiO2 % Sodium (137-145) mmol/L Potassium (3.6-5.0) mmol/L Chloride (98-107) mmol/L Carbon Dioxide (22-30) mmol/L Anion Gap mmol/L BUN (9-20) mg/dL Creatinine (0.8-1.5) mg/dL Estimated GFR ml/min BUN/Creatinine Ratio % Glucose (75-100) mg/dL POC Glucose 119 H 142 H 88 (70-105) Lactic Acid (0.7-2.0) mmol/L Calcium (8.4-10.2) mg/dL Magnesium (1.7-2.3) mg/dL Total Bilirubin (0.1-1.2) mg/dL AST (5-40) units/L ALT (7-56) units/L Alkaline Phosphatase (35-129) units/L Total Protein (6.3-8.2) g/dL Albumin (3.9-5) g/dL Albumin/Globulin Ratio % Urine Color (Yellow) Urine Turbidity (Clear) Urine pH (5.0-7.0) Ur Specific [place] (1.003-1.030) Urine Protein (Negative) mg/dL Urine Glucose (UA) (Negative) mg/dL Urine Ketones (Negative) mg/dL Urine Blood (Negative) Urine Nitrite (Negative) Urine Bilirubin (Negative) Urine Urobilinogen (<2.0) mg/dL Ur Leukocyte Esterase (Negative) Urine WBC (Auto) (0.0-6.0) /HPF Urine RBC (Auto) (0.0-6.0) /HPF Vancomycin Trough (5.0-20.0) ug/mL Blood Type Antibody Screen MI Antibody Screen Crossmatch 06/16/17 06/17/17 06/17/17 Range/Units 23:55 01:04 02:02 WBC (4.5-11.0) K/mm3 RBC (3.65-5.03) M/mm3 Hgb (11.8-15.2) gm/dl Hct (35.5-45.6) % MCV (84-94) fl MCH (28-32) pg MCHC (32-34) % RDW (13.2-15.2) % Plt Count (140-440) K/mm3 Lymph % (Auto) (13.4-35.0) % [place] % (Auto) (0.0-7.3) % Eos % (Auto) (0.0-4.3) % Baso % (Auto) (0.0-1.8) % Lymph # (1.2-5.4) K/mm3 [place] # (0.0-0.8) K/mm3 Eos # (0.0-0.4) K/mm3 Baso # (0.0-0.1) K/mm3 Add Manual Diff Total Counted Seg Neutrophils % (40.0-70.0) % Seg Neuts % (Manual) (40.0-70.0) % Band Neutrophils % % Lymphocytes % (Manual) (13.4-35.0) % Reactive Lymphs % (Man) % Monocytes % (Manual) (0.0-7.3) % Eosinophils % (Manual) (0.0-4.3) % Basophils % (Manual) (0.0-1.8) % Metamyelocytes % % Myelocytes % % Promyelocytes % % Blast Cells % % Nucleated RBC % Seg Neutrophils # (1.8-7.7) K/mm3 Seg Neutrophils # Man (1.8-7.7) K/mm3 Band Neutrophils # K/mm3 Lymphocytes # (Manual) (1.2-5.4) K/mm3 Abs React Lymphs (Man) K/mm3 Monocytes # (Manual) (0.0-0.8) K/mm3 Eosinophils # (Manual) (0.0-0.4) K/mm3 Basophils # (Manual) (0.0-0.1) K/mm3 Metamyelocytes # K/mm3 Myelocytes # K/mm3 Promyelocytes # K/mm3 Blast Cells # K/mm3 WBC Morphology Hypersegmented Neuts Hyposegmented Neuts Hypogranular Neuts Smudge Cells Toxic Granulation Toxic Vacuolation Dohle Bodies Pelger-Huet Anomaly Gisella Rods Platelet Estimate Clumped Platelets Plt Clumps, EDTA Large Platelets Giant Platelets Platelet Satelliting Plt Morphology Comment RBC Morphology Dimorphic RBCs Polychromasia Hypochromasia Poikilocytosis Anisocytosis Microcytosis Macrocytosis Spherocytes Pappenheimer Bodies Sickle Cells Target Cells Tear Drop Cells Ovalocytes Helmet Cells [place] Bodies [place] Rings [place] Cells Bite Cells Crenated Cell Elliptocytes Acanthocytes (Spur) Rouleaux Hemoglobin C Crystals Schistocytes Malaria parasites Alex Bodies Hem Pathologist Commnt PT (12.2-14.9) Sec. INR (0.87-1.13) APTT (24.2-36.6) Sec. POC ABG pH (7.35-7.45) POC ABG pCO2 (35-45) POC ABG pO2 (80-105) POC ABG HCO3 POC ABG Total CO2 POC ABG O2 Sat POC ABG Base Excess VBG pH (7.320-7.420) FiO2 % Sodium (137-145) mmol/L Potassium (3.6-5.0) mmol/L Chloride (98-107) mmol/L Carbon Dioxide (22-30) mmol/L Anion Gap mmol/L BUN (9-20) mg/dL Creatinine (0.8-1.5) mg/dL Estimated GFR ml/min BUN/Creatinine Ratio % Glucose (75-100) mg/dL POC Glucose 83 106 H 108 H (70-105) Lactic Acid (0.7-2.0) mmol/L Calcium (8.4-10.2) mg/dL Magnesium (1.7-2.3) mg/dL Total Bilirubin (0.1-1.2) mg/dL AST (5-40) units/L ALT (7-56) units/L Alkaline Phosphatase (35-129) units/L Total Protein (6.3-8.2) g/dL Albumin (3.9-5) g/dL Albumin/Globulin Ratio % Urine Color (Yellow) Urine Turbidity (Clear) Urine pH (5.0-7.0) Ur Specific [place] (1.003-1.030) Urine Protein (Negative) mg/dL Urine Glucose (UA) (Negative) mg/dL Urine Ketones (Negative) mg/dL Urine Blood (Negative) Urine Nitrite (Negative) Urine Bilirubin (Negative) Urine Urobilinogen (<2.0) mg/dL Ur Leukocyte Esterase (Negative) Urine WBC (Auto) (0.0-6.0) /HPF Urine RBC (Auto) (0.0-6.0) /HPF Vancomycin Trough (5.0-20.0) ug/mL Blood Type Antibody Screen MI Antibody Screen Crossmatch 06/17/17 06/17/17 06/17/17 Range/Units 02:44 03:42 04:40 WBC 16.4 H (4.5-11.0) K/mm3 RBC 3.14 L (3.65-5.03) M/mm3 Hgb 9.4 L (11.8-15.2) gm/dl Hct 28.5 L (35.5-45.6) % MCV 91 (84-94) fl MCH 30 (28-32) pg MCHC 33 (32-34) % RDW 16.0 H (13.2-15.2) % Plt Count 107 L (140-440) K/mm3 Lymph % (Auto) 5.0 L (13.4-35.0) % [place] % (Auto) 10.0 H (0.0-7.3) % Eos % (Auto) 0.4 (0.0-4.3) % Baso % (Auto) 0.2 (0.0-1.8) % Lymph # 0.8 L (1.2-5.4) K/mm3 [place] # 1.6 H (0.0-0.8) K/mm3 Eos # 0.1 (0.0-0.4) K/mm3 Baso # 0.0 (0.0-0.1) K/mm3 Add Manual Diff Total Counted Seg Neutrophils % 84.4 H (40.0-70.0) % Seg Neuts % (Manual) (40.0-70.0) % Band Neutrophils % % Lymphocytes % (Manual) (13.4-35.0) % Reactive Lymphs % (Man) % Monocytes % (Manual) (0.0-7.3) % Eosinophils % (Manual) (0.0-4.3) % Basophils % (Manual) (0.0-1.8) % Metamyelocytes % % Myelocytes % % Promyelocytes % % Blast Cells % % Nucleated RBC % Seg Neutrophils # 13.8 H (1.8-7.7) K/mm3 Seg Neutrophils # Man (1.8-7.7) K/mm3 Band Neutrophils # K/mm3 Lymphocytes # (Manual) (1.2-5.4) K/mm3 Abs React Lymphs (Man) K/mm3 Monocytes # (Manual) (0.0-0.8) K/mm3 Eosinophils # (Manual) (0.0-0.4) K/mm3 Basophils # (Manual) (0.0-0.1) K/mm3 Metamyelocytes # K/mm3 Myelocytes # K/mm3 Promyelocytes # K/mm3 Blast Cells # K/mm3 WBC Morphology Hypersegmented Neuts Hyposegmented Neuts Hypogranular Neuts Smudge Cells Toxic Granulation Toxic Vacuolation Dohle Bodies Pelger-Huet Anomaly Gisella Rods Platelet Estimate Clumped Platelets Plt Clumps, EDTA Large Platelets Giant Platelets Platelet Satelliting Plt Morphology Comment RBC Morphology Dimorphic RBCs Polychromasia Hypochromasia Poikilocytosis Anisocytosis Microcytosis Macrocytosis Spherocytes Pappenheimer Bodies Sickle Cells Target Cells Tear Drop Cells Ovalocytes Helmet Cells [place] Bodies [place] Rings [place] Cells Bite Cells Crenated Cell Elliptocytes Acanthocytes (Spur) Rouleaux Hemoglobin C Crystals Schistocytes Malaria parasites Alex Bodies Hem Pathologist Commnt PT (12.2-14.9) Sec. INR (0.87-1.13) APTT (24.2-36.6) Sec. POC ABG pH (7.35-7.45) POC ABG pCO2 (35-45) POC ABG pO2 (80-105) POC ABG HCO3 POC ABG Total CO2 POC ABG O2 Sat POC ABG Base Excess VBG pH (7.320-7.420) FiO2 % Sodium (137-145) mmol/L Potassium (3.6-5.0) mmol/L Chloride (98-107) mmol/L Carbon Dioxide (22-30) mmol/L Anion Gap mmol/L BUN (9-20) mg/dL Creatinine (0.8-1.5) mg/dL Estimated GFR ml/min BUN/Creatinine Ratio % Glucose (75-100) mg/dL POC Glucose 109 H 113 H (70-105) Lactic Acid (0.7-2.0) mmol/L Calcium (8.4-10.2) mg/dL Magnesium (1.7-2.3) mg/dL Total Bilirubin (0.1-1.2) mg/dL AST (5-40) units/L ALT (7-56) units/L Alkaline Phosphatase (35-129) units/L Total Protein (6.3-8.2) g/dL Albumin (3.9-5) g/dL Albumin/Globulin Ratio % Urine Color (Yellow) Urine Turbidity (Clear) Urine pH (5.0-7.0) Ur Specific [place] (1.003-1.030) Urine Protein (Negative) mg/dL Urine Glucose (UA) (Negative) mg/dL Urine Ketones (Negative) mg/dL Urine Blood (Negative) Urine Nitrite (Negative) Urine Bilirubin (Negative) Urine Urobilinogen (<2.0) mg/dL Ur Leukocyte Esterase (Negative) Urine WBC (Auto) (0.0-6.0) /HPF Urine RBC (Auto) (0.0-6.0) /HPF Vancomycin Trough (5.0-20.0) ug/mL Blood Type Antibody Screen MI Antibody Screen Crossmatch 06/17/17 06/17/17 06/17/17 Range/Units 04:40 04:47 05:33 WBC (4.5-11.0) K/mm3 RBC (3.65-5.03) M/mm3 Hgb (11.8-15.2) gm/dl Hct (35.5-45.6) % MCV (84-94) fl MCH (28-32) pg MCHC (32-34) % RDW (13.2-15.2) % Plt Count (140-440) K/mm3 Lymph % (Auto) (13.4-35.0) % [place] % (Auto) (0.0-7.3) % Eos % (Auto) (0.0-4.3) % Baso % (Auto) (0.0-1.8) % Lymph # (1.2-5.4) K/mm3 [place] # (0.0-0.8) K/mm3 Eos # (0.0-0.4) K/mm3 Baso # (0.0-0.1) K/mm3 Add Manual Diff Total Counted Seg Neutrophils % (40.0-70.0) % Seg Neuts % (Manual) (40.0-70.0) % Band Neutrophils % % Lymphocytes % (Manual) (13.4-35.0) % Reactive Lymphs % (Man) % Monocytes % (Manual) (0.0-7.3) % Eosinophils % (Manual) (0.0-4.3) % Basophils % (Manual) (0.0-1.8) % Metamyelocytes % % Myelocytes % % Promyelocytes % % Blast Cells % % Nucleated RBC % Seg Neutrophils # (1.8-7.7) K/mm3 Seg Neutrophils # Man (1.8-7.7) K/mm3 Band Neutrophils # K/mm3 Lymphocytes # (Manual) (1.2-5.4) K/mm3 Abs React Lymphs (Man) K/mm3 Monocytes # (Manual) (0.0-0.8) K/mm3 Eosinophils # (Manual) (0.0-0.4) K/mm3 Basophils # (Manual) (0.0-0.1) K/mm3 Metamyelocytes # K/mm3 Myelocytes # K/mm3 Promyelocytes # K/mm3 Blast Cells # K/mm3 WBC Morphology Hypersegmented Neuts Hyposegmented Neuts Hypogranular Neuts Smudge Cells Toxic Granulation Toxic Vacuolation Dohle Bodies Pelger-Huet Anomaly Gisella Rods Platelet Estimate Clumped Platelets Plt Clumps, EDTA Large Platelets Giant Platelets Platelet Satelliting Plt Morphology Comment RBC Morphology Dimorphic RBCs Polychromasia Hypochromasia Poikilocytosis Anisocytosis Microcytosis Macrocytosis Spherocytes Pappenheimer Bodies Sickle Cells Target Cells Tear Drop Cells Ovalocytes Helmet Cells [place] Bodies [place] Rings [place] Cells Bite Cells Crenated Cell Elliptocytes Acanthocytes (Spur) Rouleaux Hemoglobin C Crystals Schistocytes Malaria parasites Alex Bodies Hem Pathologist Commnt PT (12.2-14.9) Sec. INR (0.87-1.13) APTT (24.2-36.6) Sec. POC ABG pH (7.35-7.45) POC ABG pCO2 (35-45) POC ABG pO2 (80-105) POC ABG HCO3 POC ABG Total CO2 POC ABG O2 Sat POC ABG Base Excess VBG pH (7.320-7.420) FiO2 % Sodium 150 H (137-145) mmol/L Potassium 4.2 (3.6-5.0) mmol/L Chloride 110.8 H (98-107) mmol/L Carbon Dioxide 18 L (22-30) mmol/L Anion Gap 25 mmol/L BUN 25 H (9-20) mg/dL Creatinine 1.3 (0.8-1.5) mg/dL Estimated GFR > 60 ml/min BUN/Creatinine Ratio 19.23 % Glucose 107 H (75-100) mg/dL POC Glucose 132 H 124 H (70-105) Lactic Acid (0.7-2.0) mmol/L Calcium 8.1 L (8.4-10.2) mg/dL Magnesium (1.7-2.3) mg/dL Total Bilirubin 0.60 (0.1-1.2) mg/dL AST 47 H (5-40) units/L ALT 30 (7-56) units/L Alkaline Phosphatase 60 (35-129) units/L Total Protein 5.4 L (6.3-8.2) g/dL Albumin 2.3 L (3.9-5) g/dL Albumin/Globulin Ratio 0.7 % Urine Color (Yellow) Urine Turbidity (Clear) Urine pH (5.0-7.0) Ur Specific [place] (1.003-1.030) Urine Protein (Negative) mg/dL Urine Glucose (UA) (Negative) mg/dL Urine Ketones (Negative) mg/dL Urine Blood (Negative) Urine Nitrite (Negative) Urine Bilirubin (Negative) Urine Urobilinogen (<2.0) mg/dL Ur Leukocyte Esterase (Negative) Urine WBC (Auto) (0.0-6.0) /HPF Urine RBC (Auto) (0.0-6.0) /HPF Vancomycin Trough (5.0-20.0) ug/mL Blood Type Antibody Screen MI Antibody Screen Crossmatch 06/17/17 06/17/17 06/17/17 Range/Units 07:19 08:02 08:53 WBC (4.5-11.0) K/mm3 RBC (3.65-5.03) M/mm3 Hgb (11.8-15.2) gm/dl Hct (35.5-45.6) % MCV (84-94) fl MCH (28-32) pg MCHC (32-34) % RDW (13.2-15.2) % Plt Count (140-440) K/mm3 Lymph % (Auto) (13.4-35.0) % [place] % (Auto) (0.0-7.3) % Eos % (Auto) (0.0-4.3) % Baso % (Auto) (0.0-1.8) % Lymph # (1.2-5.4) K/mm3 [place] # (0.0-0.8) K/mm3 Eos # (0.0-0.4) K/mm3 Baso # (0.0-0.1) K/mm3 Add Manual Diff Total Counted Seg Neutrophils % (40.0-70.0) % Seg Neuts % (Manual) (40.0-70.0) % Band Neutrophils % % Lymphocytes % (Manual) (13.4-35.0) % Reactive Lymphs % (Man) % Monocytes % (Manual) (0.0-7.3) % Eosinophils % (Manual) (0.0-4.3) % Basophils % (Manual) (0.0-1.8) % Metamyelocytes % % Myelocytes % % Promyelocytes % % Blast Cells % % Nucleated RBC % Seg Neutrophils # (1.8-7.7) K/mm3 Seg Neutrophils # Man (1.8-7.7) K/mm3 Band Neutrophils # K/mm3 Lymphocytes # (Manual) (1.2-5.4) K/mm3 Abs React Lymphs (Man) K/mm3 Monocytes # (Manual) (0.0-0.8) K/mm3 Eosinophils # (Manual) (0.0-0.4) K/mm3 Basophils # (Manual) (0.0-0.1) K/mm3 Metamyelocytes # K/mm3 Myelocytes # K/mm3 Promyelocytes # K/mm3 Blast Cells # K/mm3 WBC Morphology Hypersegmented Neuts Hyposegmented Neuts Hypogranular Neuts Smudge Cells Toxic Granulation Toxic Vacuolation Dohle Bodies Pelger-Huet Anomaly Gisella Rods Platelet Estimate Clumped Platelets Plt Clumps, EDTA Large Platelets Giant Platelets Platelet Satelliting Plt Morphology Comment RBC Morphology Dimorphic RBCs Polychromasia Hypochromasia Poikilocytosis Anisocytosis Microcytosis Macrocytosis Spherocytes Pappenheimer Bodies Sickle Cells Target Cells Tear Drop Cells Ovalocytes Helmet Cells [place] Bodies [place] Rings [place] Cells Bite Cells Crenated Cell Elliptocytes Acanthocytes (Spur) Rouleaux Hemoglobin C Crystals Schistocytes Malaria parasites Alex Bodies Hem Pathologist Commnt PT (12.2-14.9) Sec. INR (0.87-1.13) APTT (24.2-36.6) Sec. POC ABG pH (7.35-7.45) POC ABG pCO2 (35-45) POC ABG pO2 (80-105) POC ABG HCO3 POC ABG Total CO2 POC ABG O2 Sat POC ABG Base Excess VBG pH (7.320-7.420) FiO2 % Sodium (137-145) mmol/L Potassium (3.6-5.0) mmol/L Chloride (98-107) mmol/L Carbon Dioxide (22-30) mmol/L Anion Gap mmol/L BUN (9-20) mg/dL Creatinine (0.8-1.5) mg/dL Estimated GFR ml/min BUN/Creatinine Ratio % Glucose (75-100) mg/dL POC Glucose 115 H 119 H 130 H (70-105) Lactic Acid (0.7-2.0) mmol/L Calcium (8.4-10.2) mg/dL Magnesium (1.7-2.3) mg/dL Total Bilirubin (0.1-1.2) mg/dL AST (5-40) units/L ALT (7-56) units/L Alkaline Phosphatase (35-129) units/L Total Protein (6.3-8.2) g/dL Albumin (3.9-5) g/dL Albumin/Globulin Ratio % Urine Color (Yellow) Urine Turbidity (Clear) Urine pH (5.0-7.0) Ur Specific [place] (1.003-1.030) Urine Protein (Negative) mg/dL Urine Glucose (UA) (Negative) mg/dL Urine Ketones (Negative) mg/dL Urine Blood (Negative) Urine Nitrite (Negative) Urine Bilirubin (Negative) Urine Urobilinogen (<2.0) mg/dL Ur Leukocyte Esterase (Negative) Urine WBC (Auto) (0.0-6.0) /HPF Urine RBC (Auto) (0.0-6.0) /HPF Vancomycin Trough (5.0-20.0) ug/mL Blood Type Antibody Screen MI Antibody Screen Crossmatch 06/17/17 06/17/17 06/17/17 Range/Units 10:00 11:05 12:08 WBC (4.5-11.0) K/mm3 RBC (3.65-5.03) M/mm3 Hgb (11.8-15.2) gm/dl Hct (35.5-45.6) % MCV (84-94) fl MCH (28-32) pg MCHC (32-34) % RDW (13.2-15.2) % Plt Count (140-440) K/mm3 Lymph % (Auto) (13.4-35.0) % [place] % (Auto) (0.0-7.3) % Eos % (Auto) (0.0-4.3) % Baso % (Auto) (0.0-1.8) % Lymph # (1.2-5.4) K/mm3 [place] # (0.0-0.8) K/mm3 Eos # (0.0-0.4) K/mm3 Baso # (0.0-0.1) K/mm3 Add Manual Diff Total Counted Seg Neutrophils % (40.0-70.0) % Seg Neuts % (Manual) (40.0-70.0) % Band Neutrophils % % Lymphocytes % (Manual) (13.4-35.0) % Reactive Lymphs % (Man) % Monocytes % (Manual) (0.0-7.3) % Eosinophils % (Manual) (0.0-4.3) % Basophils % (Manual) (0.0-1.8) % Metamyelocytes % % Myelocytes % % Promyelocytes % % Blast Cells % % Nucleated RBC % Seg Neutrophils # (1.8-7.7) K/mm3 Seg Neutrophils # Man (1.8-7.7) K/mm3 Band Neutrophils # K/mm3 Lymphocytes # (Manual) (1.2-5.4) K/mm3 Abs React Lymphs (Man) K/mm3 Monocytes # (Manual) (0.0-0.8) K/mm3 Eosinophils # (Manual) (0.0-0.4) K/mm3 Basophils # (Manual) (0.0-0.1) K/mm3 Metamyelocytes # K/mm3 Myelocytes # K/mm3 Promyelocytes # K/mm3 Blast Cells # K/mm3 WBC Morphology Hypersegmented Neuts Hyposegmented Neuts Hypogranular Neuts Smudge Cells Toxic Granulation Toxic Vacuolation Dohle Bodies Pelger-Huet Anomaly Gisella Rods Platelet Estimate Clumped Platelets Plt Clumps, EDTA Large Platelets Giant Platelets Platelet Satelliting Plt Morphology Comment RBC Morphology Dimorphic RBCs Polychromasia Hypochromasia Poikilocytosis Anisocytosis Microcytosis Macrocytosis Spherocytes Pappenheimer Bodies Sickle Cells Target Cells Tear Drop Cells Ovalocytes Helmet Cells [place] Bodies [place] Rings [place] Cells Bite Cells Crenated Cell Elliptocytes Acanthocytes (Spur) Rouleaux Hemoglobin C Crystals Schistocytes Malaria parasites Alex Bodies Hem Pathologist Commnt PT (12.2-14.9) Sec. INR (0.87-1.13) APTT (24.2-36.6) Sec. POC ABG pH (7.35-7.45) POC ABG pCO2 (35-45) POC ABG pO2 (80-105) POC ABG HCO3 POC ABG Total CO2 POC ABG O2 Sat POC ABG Base Excess VBG pH (7.320-7.420) FiO2 % Sodium (137-145) mmol/L Potassium (3.6-5.0) mmol/L Chloride (98-107) mmol/L Carbon Dioxide (22-30) mmol/L Anion Gap mmol/L BUN (9-20) mg/dL Creatinine (0.8-1.5) mg/dL Estimated GFR ml/min BUN/Creatinine Ratio % Glucose (75-100) mg/dL POC Glucose 122 H 131 H 125 H (70-105) Lactic Acid (0.7-2.0) mmol/L Calcium (8.4-10.2) mg/dL Magnesium (1.7-2.3) mg/dL Total Bilirubin (0.1-1.2) mg/dL AST (5-40) units/L ALT (7-56) units/L Alkaline Phosphatase (35-129) units/L Total Protein (6.3-8.2) g/dL Albumin (3.9-5) g/dL Albumin/Globulin Ratio % Urine Color (Yellow) Urine Turbidity (Clear) Urine pH (5.0-7.0) Ur Specific [place] (1.003-1.030) Urine Protein (Negative) mg/dL Urine Glucose (UA) (Negative) mg/dL Urine Ketones (Negative) mg/dL Urine Blood (Negative) Urine Nitrite (Negative) Urine Bilirubin (Negative) Urine Urobilinogen (<2.0) mg/dL Ur Leukocyte Esterase (Negative) Urine WBC (Auto) (0.0-6.0) /HPF Urine RBC (Auto) (0.0-6.0) /HPF Vancomycin Trough (5.0-20.0) ug/mL Blood Type Antibody Screen MI Antibody Screen Crossmatch 06/17/17 06/17/17 06/17/17 Range/Units 13:20 14:09 15:13 WBC (4.5-11.0) K/mm3 RBC (3.65-5.03) M/mm3 Hgb (11.8-15.2) gm/dl Hct (35.5-45.6) % MCV (84-94) fl MCH (28-32) pg MCHC (32-34) % RDW (13.2-15.2) % Plt Count (140-440) K/mm3 Lymph % (Auto) (13.4-35.0) % [place] % (Auto) (0.0-7.3) % Eos % (Auto) (0.0-4.3) % Baso % (Auto) (0.0-1.8) % Lymph # (1.2-5.4) K/mm3 [place] # (0.0-0.8) K/mm3 Eos # (0.0-0.4) K/mm3 Baso # (0.0-0.1) K/mm3 Add Manual Diff Total Counted Seg Neutrophils % (40.0-70.0) % Seg Neuts % (Manual) (40.0-70.0) % Band Neutrophils % % Lymphocytes % (Manual) (13.4-35.0) % Reactive Lymphs % (Man) % Monocytes % (Manual) (0.0-7.3) % Eosinophils % (Manual) (0.0-4.3) % Basophils % (Manual) (0.0-1.8) % Metamyelocytes % % Myelocytes % % Promyelocytes % % Blast Cells % % Nucleated RBC % Seg Neutrophils # (1.8-7.7) K/mm3 Seg Neutrophils # Man (1.8-7.7) K/mm3 Band Neutrophils # K/mm3 Lymphocytes # (Manual) (1.2-5.4) K/mm3 Abs React Lymphs (Man) K/mm3 Monocytes # (Manual) (0.0-0.8) K/mm3 Eosinophils # (Manual) (0.0-0.4) K/mm3 Basophils # (Manual) (0.0-0.1) K/mm3 Metamyelocytes # K/mm3 Myelocytes # K/mm3 Promyelocytes # K/mm3 Blast Cells # K/mm3 WBC Morphology Hypersegmented Neuts Hyposegmented Neuts Hypogranular Neuts Smudge Cells Toxic Granulation Toxic Vacuolation Dohle Bodies Pelger-Huet Anomaly Gisella Rods Platelet Estimate Clumped Platelets Plt Clumps, EDTA Large Platelets Giant Platelets Platelet Satelliting Plt Morphology Comment RBC Morphology Dimorphic RBCs Polychromasia Hypochromasia Poikilocytosis Anisocytosis Microcytosis Macrocytosis Spherocytes Pappenheimer Bodies Sickle Cells Target Cells Tear Drop Cells Ovalocytes Helmet Cells [place] Bodies [place] Rings [place] Cells Bite Cells Crenated Cell Elliptocytes Acanthocytes (Spur) Rouleaux Hemoglobin C Crystals Schistocytes Malaria parasites Alex Bodies Hem Pathologist Commnt PT (12.2-14.9) Sec. INR (0.87-1.13) APTT (24.2-36.6) Sec. POC ABG pH (7.35-7.45) POC ABG pCO2 (35-45) POC ABG pO2 (80-105) POC ABG HCO3 POC ABG Total CO2 POC ABG O2 Sat POC ABG Base Excess VBG pH (7.320-7.420) FiO2 % Sodium (137-145) mmol/L Potassium (3.6-5.0) mmol/L Chloride (98-107) mmol/L Carbon Dioxide (22-30) mmol/L Anion Gap mmol/L BUN (9-20) mg/dL Creatinine (0.8-1.5) mg/dL Estimated GFR ml/min BUN/Creatinine Ratio % Glucose (75-100) mg/dL POC Glucose 133 H 114 H 137 H (70-105) Lactic Acid (0.7-2.0) mmol/L Calcium (8.4-10.2) mg/dL Magnesium (1.7-2.3) mg/dL Total Bilirubin (0.1-1.2) mg/dL AST (5-40) units/L ALT (7-56) units/L Alkaline Phosphatase (35-129) units/L Total Protein (6.3-8.2) g/dL Albumin (3.9-5) g/dL Albumin/Globulin Ratio % Urine Color (Yellow) Urine Turbidity (Clear) Urine pH (5.0-7.0) Ur Specific [place] (1.003-1.030) Urine Protein (Negative) mg/dL Urine Glucose (UA) (Negative) mg/dL Urine Ketones (Negative) mg/dL Urine Blood (Negative) Urine Nitrite (Negative) Urine Bilirubin (Negative) Urine Urobilinogen (<2.0) mg/dL Ur Leukocyte Esterase (Negative) Urine WBC (Auto) (0.0-6.0) /HPF Urine RBC (Auto) (0.0-6.0) /HPF Vancomycin Trough (5.0-20.0) ug/mL Blood Type Antibody Screen MI Antibody Screen Crossmatch 06/17/17 06/17/1717 Range/Units 16:09 16:53 17:46 WBC (4.5-11.0) K/mm3 RBC (3.65-5.03) M/mm3 Hgb (11.8-15.2) gm/dl Hct (35.5-45.6) % MCV (84-94) fl MCH (28-32) pg MCHC (32-34) % RDW (13.2-15.2) % Plt Count (140-440) K/mm3 Lymph % (Auto) (13.4-35.0) % [place] % (Auto) (0.0-7.3) % Eos % (Auto) (0.0-4.3) % Baso % (Auto) (0.0-1.8) % Lymph # (1.2-5.4) K/mm3 [place] # (0.0-0.8) K/mm3 Eos # (0.0-0.4) K/mm3 Baso # (0.0-0.1) K/mm3 Add Manual Diff Total Counted Seg Neutrophils % (40.0-70.0) % Seg Neuts % (Manual) (40.0-70.0) % Band Neutrophils % % Lymphocytes % (Manual) (13.4-35.0) % Reactive Lymphs % (Man) % Monocytes % (Manual) (0.0-7.3) % Eosinophils % (Manual) (0.0-4.3) % Basophils % (Manual) (0.0-1.8) % Metamyelocytes % % Myelocytes % % Promyelocytes % % Blast Cells % % Nucleated RBC % Seg Neutrophils # (1.8-7.7) K/mm3 Seg Neutrophils # Man (1.8-7.7) K/mm3 Band Neutrophils # K/mm3 Lymphocytes # (Manual) (1.2-5.4) K/mm3 Abs React Lymphs (Man) K/mm3 Monocytes # (Manual) (0.0-0.8) K/mm3 Eosinophils # (Manual) (0.0-0.4) K/mm3 Basophils # (Manual) (0.0-0.1) K/mm3 Metamyelocytes # K/mm3 Myelocytes # K/mm3 Promyelocytes # K/mm3 Blast Cells # K/mm3 WBC Morphology Hypersegmented Neuts Hyposegmented Neuts Hypogranular Neuts Smudge Cells Toxic Granulation Toxic Vacuolation Dohle Bodies Pelger-Huet Anomaly Gisella Rods Platelet Estimate Clumped Platelets Plt Clumps, EDTA Large Platelets Giant Platelets Platelet Satelliting Plt Morphology Comment RBC Morphology Dimorphic RBCs Polychromasia Hypochromasia Poikilocytosis Anisocytosis Microcytosis Macrocytosis Spherocytes Pappenheimer Bodies Sickle Cells Target Cells Tear Drop Cells Ovalocytes Helmet Cells [place] Bodies [place] Rings [place] Cells Bite Cells Crenated Cell Elliptocytes Acanthocytes (Spur) Rouleaux Hemoglobin C Crystals Schistocytes Malaria parasites Alex Bodies Hem Pathologist Commnt PT (12.2-14.9) Sec. INR (0.87-1.13) APTT (24.2-36.6) Sec. POC ABG pH (7.35-7.45) POC ABG pCO2 (35-45) POC ABG pO2 (80-105) POC ABG HCO3 POC ABG Total CO2 POC ABG O2 Sat POC ABG Base Excess VBG pH (7.320-7.420) FiO2 % Sodium (137-145) mmol/L Potassium (3.6-5.0) mmol/L Chloride (98-107) mmol/L Carbon Dioxide (22-30) mmol/L Anion Gap mmol/L BUN (9-20) mg/dL Creatinine (0.8-1.5) mg/dL Estimated GFR ml/min BUN/Creatinine Ratio % Glucose (75-100) mg/dL POC Glucose 120 H 123 H 112 H (70-105) Lactic Acid (0.7-2.0) mmol/L Calcium (8.4-10.2) mg/dL Magnesium (1.7-2.3) mg/dL Total Bilirubin (0.1-1.2) mg/dL AST (5-40) units/L ALT (7-56) units/L Alkaline Phosphatase (35-129) units/L Total Protein (6.3-8.2) g/dL Albumin (3.9-5) g/dL Albumin/Globulin Ratio % Urine Color (Yellow) Urine Turbidity (Clear) Urine pH (5.0-7.0) Ur Specific [place] (1.003-1.030) Urine Protein (Negative) mg/dL Urine Glucose (UA) (Negative) mg/dL Urine Ketones (Negative) mg/dL Urine Blood (Negative) Urine Nitrite (Negative) Urine Bilirubin (Negative) Urine Urobilinogen (<2.0) mg/dL Ur Leukocyte Esterase (Negative) Urine WBC (Auto) (0.0-6.0) /HPF Urine RBC (Auto) (0.0-6.0) /HPF Vancomycin Trough (5.0-20.0) ug/mL Blood Type Antibody Screen MI Antibody Screen Crossmatch 06/17/17 06/17/17 06/17/17 Range/Units 20:36 21:04 21:47 WBC (4.5-11.0) K/mm3 RBC (3.65-5.03) M/mm3 Hgb (11.8-15.2) gm/dl Hct (35.5-45.6) % MCV (84-94) fl MCH (28-32) pg MCHC (32-34) % RDW (13.2-15.2) % Plt Count (140-440) K/mm3 Lymph % (Auto) (13.4-35.0) % [place] % (Auto) (0.0-7.3) % Eos % (Auto) (0.0-4.3) % Baso % (Auto) (0.0-1.8) % Lymph # (1.2-5.4) K/mm3 [place] # (0.0-0.8) K/mm3 Eos # (0.0-0.4) K/mm3 Baso # (0.0-0.1) K/mm3 Add Manual Diff Total Counted Seg Neutrophils % (40.0-70.0) % Seg Neuts % (Manual) (40.0-70.0) % Band Neutrophils % % Lymphocytes % (Manual) (13.4-35.0) % Reactive Lymphs % (Man) % Monocytes % (Manual) (0.0-7.3) % Eosinophils % (Manual) (0.0-4.3) % Basophils % (Manual) (0.0-1.8) % Metamyelocytes % % Myelocytes % % Promyelocytes % % Blast Cells % % Nucleated RBC % Seg Neutrophils # (1.8-7.7) K/mm3 Seg Neutrophils # Man (1.8-7.7) K/mm3 Band Neutrophils # K/mm3 Lymphocytes # (Manual) (1.2-5.4) K/mm3 Abs React Lymphs (Man) K/mm3 Monocytes # (Manual) (0.0-0.8) K/mm3 Eosinophils # (Manual) (0.0-0.4) K/mm3 Basophils # (Manual) (0.0-0.1) K/mm3 Metamyelocytes # K/mm3 Myelocytes # K/mm3 Promyelocytes # K/mm3 Blast Cells # K/mm3 WBC Morphology Hypersegmented Neuts Hyposegmented Neuts Hypogranular Neuts Smudge Cells Toxic Granulation Toxic Vacuolation Dohle Bodies Pelger-Huet Anomaly Gisella Rods Platelet Estimate Clumped Platelets Plt Clumps, EDTA Large Platelets Giant Platelets Platelet Satelliting Plt Morphology Comment RBC Morphology Dimorphic RBCs Polychromasia Hypochromasia Poikilocytosis Anisocytosis Microcytosis Macrocytosis Spherocytes Pappenheimer Bodies Sickle Cells Target Cells Tear Drop Cells Ovalocytes Helmet Cells [place] Bodies [place] Rings [place] Cells Bite Cells Crenated Cell Elliptocytes Acanthocytes (Spur) Rouleaux Hemoglobin C Crystals Schistocytes Malaria parasites Alex Bodies Hem Pathologist Commnt PT (12.2-14.9) Sec. INR (0.87-1.13) APTT (24.2-36.6) Sec. POC ABG pH (7.35-7.45) POC ABG pCO2 (35-45) POC ABG pO2 (80-105) POC ABG HCO3 POC ABG Total CO2 POC ABG O2 Sat POC ABG Base Excess VBG pH (7.320-7.420) FiO2 % Sodium (137-145) mmol/L Potassium (3.6-5.0) mmol/L Chloride (98-107) mmol/L Carbon Dioxide (22-30) mmol/L Anion Gap mmol/L BUN (9-20) mg/dL Creatinine (0.8-1.5) mg/dL Estimated GFR ml/min BUN/Creatinine Ratio % Glucose (75-100) mg/dL POC Glucose 127 H 144 H 124 H (70-105) Lactic Acid (0.7-2.0) mmol/L Calcium (8.4-10.2) mg/dL Magnesium (1.7-2.3) mg/dL Total Bilirubin (0.1-1.2) mg/dL AST (5-40) units/L ALT (7-56) units/L Alkaline Phosphatase (35-129) units/L Total Protein (6.3-8.2) g/dL Albumin (3.9-5) g/dL Albumin/Globulin Ratio % Urine Color (Yellow) Urine Turbidity (Clear) Urine pH (5.0-7.0) Ur Specific [place] (1.003-1.030) Urine Protein (Negative) mg/dL Urine Glucose (UA) (Negative) mg/dL Urine Ketones (Negative) mg/dL Urine Blood (Negative) Urine Nitrite (Negative) Urine Bilirubin (Negative) Urine Urobilinogen (<2.0) mg/dL Ur Leukocyte Esterase (Negative) Urine WBC (Auto) (0.0-6.0) /HPF Urine RBC (Auto) (0.0-6.0) /HPF Vancomycin Trough (5.0-20.0) ug/mL Blood Type Antibody Screen MI Antibody Screen Crossmatch 06/17/17 06/17/17 06/18/17 Range/Units 22:52 23:49 00:48 WBC (4.5-11.0) K/mm3 RBC (3.65-5.03) M/mm3 Hgb (11.8-15.2) gm/dl Hct (35.5-45.6) % MCV (84-94) fl MCH (28-32) pg MCHC (32-34) % RDW (13.2-15.2) % Plt Count (140-440) K/mm3 Lymph % (Auto) (13.4-35.0) % [place] % (Auto) (0.0-7.3) % Eos % (Auto) (0.0-4.3) % Baso % (Auto) (0.0-1.8) % Lymph # (1.2-5.4) K/mm3 [place] # (0.0-0.8) K/mm3 Eos # (0.0-0.4) K/mm3 Baso # (0.0-0.1) K/mm3 Add Manual Diff Total Counted Seg Neutrophils % (40.0-70.0) % Seg Neuts % (Manual) (40.0-70.0) % Band Neutrophils % % Lymphocytes % (Manual) (13.4-35.0) % Reactive Lymphs % (Man) % Monocytes % (Manual) (0.0-7.3) % Eosinophils % (Manual) (0.0-4.3) % Basophils % (Manual) (0.0-1.8) % Metamyelocytes % % Myelocytes % % Promyelocytes % % Blast Cells % % Nucleated RBC % Seg Neutrophils # (1.8-7.7) K/mm3 Seg Neutrophils # Man (1.8-7.7) K/mm3 Band Neutrophils # K/mm3 Lymphocytes # (Manual) (1.2-5.4) K/mm3 Abs React Lymphs (Man) K/mm3 Monocytes # (Manual) (0.0-0.8) K/mm3 Eosinophils # (Manual) (0.0-0.4) K/mm3 Basophils # (Manual) (0.0-0.1) K/mm3 Metamyelocytes # K/mm3 Myelocytes # K/mm3 Promyelocytes # K/mm3 Blast Cells # K/mm3 WBC Morphology Hypersegmented Neuts Hyposegmented Neuts Hypogranular Neuts Smudge Cells Toxic Granulation Toxic Vacuolation Dohle Bodies Pelger-Huet Anomaly Gisella Rods Platelet Estimate Clumped Platelets Plt Clumps, EDTA Large Platelets Giant Platelets Platelet Satelliting Plt Morphology Comment RBC Morphology Dimorphic RBCs Polychromasia Hypochromasia Poikilocytosis Anisocytosis Microcytosis Macrocytosis Spherocytes Pappenheimer Bodies Sickle Cells Target Cells Tear Drop Cells Ovalocytes Helmet Cells [place] Bodies [place] Rings [place] Cells Bite Cells Crenated Cell Elliptocytes Acanthocytes (Spur) Rouleaux Hemoglobin C Crystals Schistocytes Malaria parasites Alex Bodies Hem Pathologist Commnt PT (12.2-14.9) Sec. INR (0.87-1.13) APTT (24.2-36.6) Sec. POC ABG pH (7.35-7.45) POC ABG pCO2 (35-45) POC ABG pO2 (80-105) POC ABG HCO3 POC ABG Total CO2 POC ABG O2 Sat POC ABG Base Excess VBG pH (7.320-7.420) FiO2 % Sodium (137-145) mmol/L Potassium (3.6-5.0) mmol/L Chloride (98-107) mmol/L Carbon Dioxide (22-30) mmol/L Anion Gap mmol/L BUN (9-20) mg/dL Creatinine (0.8-1.5) mg/dL Estimated GFR ml/min BUN/Creatinine Ratio % Glucose (75-100) mg/dL POC Glucose 175 H 162 H 139 H (70-105) Lactic Acid (0.7-2.0) mmol/L Calcium (8.4-10.2) mg/dL Magnesium (1.7-2.3) mg/dL Total Bilirubin (0.1-1.2) mg/dL AST (5-40) units/L ALT (7-56) units/L Alkaline Phosphatase (35-129) units/L Total Protein (6.3-8.2) g/dL Albumin (3.9-5) g/dL Albumin/Globulin Ratio % Urine Color (Yellow) Urine Turbidity (Clear) Urine pH (5.0-7.0) Ur Specific [place] (1.003-1.030) Urine Protein (Negative) mg/dL Urine Glucose (UA) (Negative) mg/dL Urine Ketones (Negative) mg/dL Urine Blood (Negative) Urine Nitrite (Negative) Urine Bilirubin (Negative) Urine Urobilinogen (<2.0) mg/dL Ur Leukocyte Esterase (Negative) Urine WBC (Auto) (0.0-6.0) /HPF Urine RBC (Auto) (0.0-6.0) /HPF Vancomycin Trough (5.0-20.0) ug/mL Blood Type Antibody Screen MI Antibody Screen Crossmatch 06/18/17 06/18/17 06/18/17 Range/Units 01:57 03:06 04:03 WBC (4.5-11.0) K/mm3 RBC (3.65-5.03) M/mm3 Hgb (11.8-15.2) gm/dl Hct (35.5-45.6) % MCV (84-94) fl MCH (28-32) pg MCHC (32-34) % RDW (13.2-15.2) % Plt Count (140-440) K/mm3 Lymph % (Auto) (13.4-35.0) % [place] % (Auto) (0.0-7.3) % Eos % (Auto) (0.0-4.3) % Baso % (Auto) (0.0-1.8) % Lymph # (1.2-5.4) K/mm3 [place] # (0.0-0.8) K/mm3 Eos # (0.0-0.4) K/mm3 Baso # (0.0-0.1) K/mm3 Add Manual Diff Total Counted Seg Neutrophils % (40.0-70.0) % Seg Neuts % (Manual) (40.0-70.0) % Band Neutrophils % % Lymphocytes % (Manual) (13.4-35.0) % Reactive Lymphs % (Man) % Monocytes % (Manual) (0.0-7.3) % Eosinophils % (Manual) (0.0-4.3) % Basophils % (Manual) (0.0-1.8) % Metamyelocytes % % Myelocytes % % Promyelocytes % % Blast Cells % % Nucleated RBC % Seg Neutrophils # (1.8-7.7) K/mm3 Seg Neutrophils # Man (1.8-7.7) K/mm3 Band Neutrophils # K/mm3 Lymphocytes # (Manual) (1.2-5.4) K/mm3 Abs React Lymphs (Man) K/mm3 Monocytes # (Manual) (0.0-0.8) K/mm3 Eosinophils # (Manual) (0.0-0.4) K/mm3 Basophils # (Manual) (0.0-0.1) K/mm3 Metamyelocytes # K/mm3 Myelocytes # K/mm3 Promyelocytes # K/mm3 Blast Cells # K/mm3 WBC Morphology Hypersegmented Neuts Hyposegmented Neuts Hypogranular Neuts Smudge Cells Toxic Granulation Toxic Vacuolation Dohle Bodies Pelger-Huet Anomaly Gisella Rods Platelet Estimate Clumped Platelets Plt Clumps, EDTA Large Platelets Giant Platelets Platelet Satelliting Plt Morphology Comment RBC Morphology Dimorphic RBCs Polychromasia Hypochromasia Poikilocytosis Anisocytosis Microcytosis Macrocytosis Spherocytes Pappenheimer Bodies Sickle Cells Target Cells Tear Drop Cells Ovalocytes Helmet Cells [place] Bodies [place] Rings [place] Cells Bite Cells Crenated Cell Elliptocytes Acanthocytes (Spur) Rouleaux Hemoglobin C Crystals Schistocytes Malaria parasites Alex Bodies Hem Pathologist Commnt PT (12.2-14.9) Sec. INR (0.87-1.13) APTT (24.2-36.6) Sec. POC ABG pH (7.35-7.45) POC ABG pCO2 (35-45) POC ABG pO2 (80-105) POC ABG HCO3 POC ABG Total CO2 POC ABG O2 Sat POC ABG Base Excess VBG pH (7.320-7.420) FiO2 % Sodium (137-145) mmol/L Potassium (3.6-5.0) mmol/L Chloride (98-107) mmol/L Carbon Dioxide (22-30) mmol/L Anion Gap mmol/L BUN (9-20) mg/dL Creatinine (0.8-1.5) mg/dL Estimated GFR ml/min BUN/Creatinine Ratio % Glucose (75-100) mg/dL POC Glucose 146 H 213 H 159 H (70-105) Lactic Acid (0.7-2.0) mmol/L Calcium (8.4-10.2) mg/dL Magnesium (1.7-2.3) mg/dL Total Bilirubin (0.1-1.2) mg/dL AST (5-40) units/L ALT (7-56) units/L Alkaline Phosphatase (35-129) units/L Total Protein (6.3-8.2) g/dL Albumin (3.9-5) g/dL Albumin/Globulin Ratio % Urine Color (Yellow) Urine Turbidity (Clear) Urine pH (5.0-7.0) Ur Specific [place] (1.003-1.030) Urine Protein (Negative) mg/dL Urine Glucose (UA) (Negative) mg/dL Urine Ketones (Negative) mg/dL Urine Blood (Negative) Urine Nitrite (Negative) Urine Bilirubin (Negative) Urine Urobilinogen (<2.0) mg/dL Ur Leukocyte Esterase (Negative) Urine WBC (Auto) (0.0-6.0) /HPF Urine RBC (Auto) (0.0-6.0) /HPF Vancomycin Trough (5.0-20.0) ug/mL Blood Type Antibody Screen MI Antibody Screen Crossmatch 08/07/17 08/07/17 08/07/17 Range/Units 04:57 05:00 05:00 WBC 17.1 H (4.5-11.0) K/mm3 RBC 3.52 L (3.65-5.03) M/mm3 Hgb 10.5 L (11.8-15.2) gm/dl Hct 32.3 L (35.5-45.6) % MCV 92 (84-94) fl MCH 30 (28-32) pg MCHC 32 (32-34) % RDW 15.7 H (13.2-15.2) % Plt Count 120 L (140-440) K/mm3 Lymph % (Auto) 6.8 L (13.4-35.0) % [place] % (Auto) 9.6 H (0.0-7.3) % Eos % (Auto) 0.6 (0.0-4.3) % Baso % (Auto) 0.2 (0.0-1.8) % Lymph # 1.2 (1.2-5.4) K/mm3 [place] # 1.6 H (0.0-0.8) K/mm3 Eos # 0.1 (0.0-0.4) K/mm3 Baso # 0.0 (0.0-0.1) K/mm3 Add Manual Diff Total Counted Seg Neutrophils % 82.8 H (40.0-70.0) % Seg Neuts % (Manual) (40.0-70.0) % Band Neutrophils % % Lymphocytes % (Manual) (13.4-35.0) % Reactive Lymphs % (Man) % Monocytes % (Manual) (0.0-7.3) % Eosinophils % (Manual) (0.0-4.3) % Basophils % (Manual) (0.0-1.8) % Metamyelocytes % % Myelocytes % % Promyelocytes % % Blast Cells % % Nucleated RBC % Seg Neutrophils # 14.1 H (1.8-7.7) K/mm3 Seg Neutrophils # Man (1.8-7.7) K/mm3 Band Neutrophils # K/mm3 Lymphocytes # (Manual) (1.2-5.4) K/mm3 Abs React Lymphs (Man) K/mm3 Monocytes # (Manual) (0.0-0.8) K/mm3 Eosinophils # (Manual) (0.0-0.4) K/mm3 Basophils # (Manual) (0.0-0.1) K/mm3 Metamyelocytes # K/mm3 Myelocytes # K/mm3 Promyelocytes # K/mm3 Blast Cells # K/mm3 WBC Morphology Hypersegmented Neuts Hyposegmented Neuts Hypogranular Neuts Smudge Cells Toxic Granulation Toxic Vacuolation Dohle Bodies Pelger-Huet Anomaly Gisella Rods Platelet Estimate Clumped Platelets Plt Clumps, EDTA Large Platelets Giant Platelets Platelet Satelliting Plt Morphology Comment RBC Morphology Dimorphic RBCs Polychromasia Hypochromasia Poikilocytosis Anisocytosis Microcytosis Macrocytosis Spherocytes Pappenheimer Bodies Sickle Cells Target Cells Tear Drop Cells Ovalocytes Helmet Cells [place] Bodies [place] Rings [place] Cells Bite Cells Crenated Cell Elliptocytes Acanthocytes (Spur) Rouleaux Hemoglobin C Crystals Schistocytes Malaria parasites Alex Bodies Hem Pathologist Commnt PT (12.2-14.9) Sec. INR (0.87-1.13) APTT (24.2-36.6) Sec. POC ABG pH (7.35-7.45) POC ABG pCO2 (35-45) POC ABG pO2 (80-105) POC ABG HCO3 POC ABG Total CO2 POC ABG O2 Sat POC ABG Base Excess VBG pH (7.320-7.420) FiO2 % Sodium 153 H (137-145) mmol/L Potassium 4.2 (3.6-5.0) mmol/L Chloride 113.4 H (98-107) mmol/L Carbon Dioxide 17 L (22-30) mmol/L Anion Gap 27 mmol/L BUN 28 H (9-20) mg/dL Creatinine 1.3 (0.8-1.5) mg/dL Estimated GFR > 60 ml/min BUN/Creatinine Ratio 21.53 % Glucose 150 H (75-100) mg/dL POC Glucose 195 H (70-105) Lactic Acid (0.7-2.0) mmol/L Calcium 8.4 (8.4-10.2) mg/dL Magnesium (1.7-2.3) mg/dL Total Bilirubin 0.50 (0.1-1.2) mg/dL AST 31 (5-40) units/L ALT 28 (7-56) units/L Alkaline Phosphatase 68 (35-129) units/L Total Protein 5.6 L (6.3-8.2) g/dL Albumin 2.2 L (3.9-5) g/dL Albumin/Globulin Ratio 0.6 % Urine Color (Yellow) Urine Turbidity (Clear) Urine pH (5.0-7.0) Ur Specific [place] (1.003-1.030) Urine Protein (Negative) mg/dL Urine Glucose (UA) (Negative) mg/dL Urine Ketones (Negative) mg/dL Urine Blood (Negative) Urine Nitrite (Negative) Urine Bilirubin (Negative) Urine Urobilinogen (<2.0) mg/dL Ur Leukocyte Esterase (Negative) Urine WBC (Auto) (0.0-6.0) /HPF Urine RBC (Auto) (0.0-6.0) /HPF Vancomycin Trough (5.0-20.0) ug/mL Blood Type Antibody Screen MI Antibody Screen Crossmatch 06/18/17 06/18/17 06/18/17 Range/Units 05:00 05:23 06:23 WBC (4.5-11.0) K/mm3 RBC (3.65-5.03) M/mm3 Hgb (11.8-15.2) gm/dl Hct (35.5-45.6) % MCV (84-94) fl MCH (28-32) pg MCHC (32-34) % RDW (13.2-15.2) % Plt Count (140-440) K/mm3 Lymph % (Auto) (13.4-35.0) % [place] % (Auto) (0.0-7.3) % Eos % (Auto) (0.0-4.3) % Baso % (Auto) (0.0-1.8) % Lymph # (1.2-5.4) K/mm3 [place] # (0.0-0.8) K/mm3 Eos # (0.0-0.4) K/mm3 Baso # (0.0-0.1) K/mm3 Add Manual Diff Total Counted Seg Neutrophils % (40.0-70.0) % Seg Neuts % (Manual) (40.0-70.0) % Band Neutrophils % % Lymphocytes % (Manual) (13.4-35.0) % Reactive Lymphs % (Man) % Monocytes % (Manual) (0.0-7.3) % Eosinophils % (Manual) (0.0-4.3) % Basophils % (Manual) (0.0-1.8) % Metamyelocytes % % Myelocytes % % Promyelocytes % % Blast Cells % % Nucleated RBC % Seg Neutrophils # (1.8-7.7) K/mm3 Seg Neutrophils # Man (1.8-7.7) K/mm3 Band Neutrophils # K/mm3 Lymphocytes # (Manual) (1.2-5.4) K/mm3 Abs React Lymphs (Man) K/mm3 Monocytes # (Manual) (0.0-0.8) K/mm3 Eosinophils # (Manual) (0.0-0.4) K/mm3 Basophils # (Manual) (0.0-0.1) K/mm3 Metamyelocytes # K/mm3 Myelocytes # K/mm3 Promyelocytes # K/mm3 Blast Cells # K/mm3 WBC Morphology Hypersegmented Neuts Hyposegmented Neuts Hypogranular Neuts Smudge Cells Toxic Granulation Toxic Vacuolation Dohle Bodies Pelger-Huet Anomaly Gisella Rods Platelet Estimate Clumped Platelets Plt Clumps, EDTA Large Platelets Giant Platelets Platelet Satelliting Plt Morphology Comment RBC Morphology Dimorphic RBCs Polychromasia Hypochromasia Poikilocytosis Anisocytosis Microcytosis Macrocytosis Spherocytes Pappenheimer Bodies Sickle Cells Target Cells Tear Drop Cells Ovalocytes Helmet Cells [place] Bodies [place] Rings [place] Cells Bite Cells Crenated Cell Elliptocytes Acanthocytes (Spur) Rouleaux Hemoglobin C Crystals Schistocytes Malaria parasites Alex Bodies Hem Pathologist Commnt PT (12.2-14.9) Sec. INR (0.87-1.13) APTT (24.2-36.6) Sec. POC ABG pH (7.35-7.45) POC ABG pCO2 (35-45) POC ABG pO2 (80-105) POC ABG HCO3 POC ABG Total CO2 POC ABG O2 Sat POC ABG Base Excess VBG pH (7.320-7.420) FiO2 % Sodium (137-145) mmol/L Potassium (3.6-5.0) mmol/L Chloride (98-107) mmol/L Carbon Dioxide (22-30) mmol/L Anion Gap mmol/L BUN (9-20) mg/dL Creatinine (0.8-1.5) mg/dL Estimated GFR ml/min BUN/Creatinine Ratio % Glucose (75-100) mg/dL POC Glucose 204 H 159 H (70-105) Lactic Acid (0.7-2.0) mmol/L Calcium (8.4-10.2) mg/dL Magnesium (1.7-2.3) mg/dL Total Bilirubin (0.1-1.2) mg/dL AST (5-40) units/L ALT (7-56) units/L Alkaline Phosphatase (35-129) units/L Total Protein (6.3-8.2) g/dL Albumin (3.9-5) g/dL Albumin/Globulin Ratio % Urine Color (Yellow) Urine Turbidity (Clear) Urine pH (5.0-7.0) Ur Specific [place] (1.003-1.030) Urine Protein (Negative) mg/dL Urine Glucose (UA) (Negative) mg/dL Urine Ketones (Negative) mg/dL Urine Blood (Negative) Urine Nitrite (Negative) Urine Bilirubin (Negative) Urine Urobilinogen (<2.0) mg/dL Ur Leukocyte Esterase (Negative) Urine WBC (Auto) (0.0-6.0) /HPF Urine RBC (Auto) (0.0-6.0) /HPF Vancomycin Trough 29.4 H (5.0-20.0) ug/mL Blood Type Antibody Screen MI Antibody Screen Crossmatch 06/18/17 06/18/17 06/18/17 Range/Units 08:06 09:02 10:14 WBC (4.5-11.0) K/mm3 RBC (3.65-5.03) M/mm3 Hgb (11.8-15.2) gm/dl Hct (35.5-45.6) % MCV (84-94) fl MCH (28-32) pg MCHC (32-34) % RDW (13.2-15.2) % Plt Count (140-440) K/mm3 Lymph % (Auto) (13.4-35.0) % [place] % (Auto) (0.0-7.3) % Eos % (Auto) (0.0-4.3) % Baso % (Auto) (0.0-1.8) % Lymph # (1.2-5.4) K/mm3 [place] # (0.0-0.8) K/mm3 Eos # (0.0-0.4) K/mm3 Baso # (0.0-0.1) K/mm3 Add Manual Diff Total Counted Seg Neutrophils % (40.0-70.0) % Seg Neuts % (Manual) (40.0-70.0) % Band Neutrophils % % Lymphocytes % (Manual) (13.4-35.0) % Reactive Lymphs % (Man) % Monocytes % (Manual) (0.0-7.3) % Eosinophils % (Manual) (0.0-4.3) % Basophils % (Manual) (0.0-1.8) % Metamyelocytes % % Myelocytes % % Promyelocytes % % Blast Cells % % Nucleated RBC % Seg Neutrophils # (1.8-7.7) K/mm3 Seg Neutrophils # Man (1.8-7.7) K/mm3 Band Neutrophils # K/mm3 Lymphocytes # (Manual) (1.2-5.4) K/mm3 Abs React Lymphs (Man) K/mm3 Monocytes # (Manual) (0.0-0.8) K/mm3 Eosinophils # (Manual) (0.0-0.4) K/mm3 Basophils # (Manual) (0.0-0.1) K/mm3 Metamyelocytes # K/mm3 Myelocytes # K/mm3 Promyelocytes # K/mm3 Blast Cells # K/mm3 WBC Morphology Hypersegmented Neuts Hyposegmented Neuts Hypogranular Neuts Smudge Cells Toxic Granulation Toxic Vacuolation Dohle Bodies Pelger-Huet Anomaly Gisella Rods Platelet Estimate Clumped Platelets Plt Clumps, EDTA Large Platelets Giant Platelets Platelet Satelliting Plt Morphology Comment RBC Morphology Dimorphic RBCs Polychromasia Hypochromasia Poikilocytosis Anisocytosis Microcytosis Macrocytosis Spherocytes Pappenheimer Bodies Sickle Cells Target Cells Tear Drop Cells Ovalocytes Helmet Cells [place] Bodies [place] Rings [place] Cells Bite Cells Crenated Cell Elliptocytes Acanthocytes (Spur) Rouleaux Hemoglobin C Crystals Schistocytes Malaria parasites Alex Bodies Hem Pathologist Commnt PT (12.2-14.9) Sec. INR (0.87-1.13) APTT (24.2-36.6) Sec. POC ABG pH (7.35-7.45) POC ABG pCO2 (35-45) POC ABG pO2 (80-105) POC ABG HCO3 POC ABG Total CO2 POC ABG O2 Sat POC ABG Base Excess VBG pH (7.320-7.420) FiO2 % Sodium (137-145) mmol/L Potassium (3.6-5.0) mmol/L Chloride (98-107) mmol/L Carbon Dioxide (22-30) mmol/L Anion Gap mmol/L BUN (9-20) mg/dL Creatinine (0.8-1.5) mg/dL Estimated GFR ml/min BUN/Creatinine Ratio % Glucose (75-100) mg/dL POC Glucose 120 H 119 H 103 (70-105) Lactic Acid (0.7-2.0) mmol/L Calcium (8.4-10.2) mg/dL Magnesium (1.7-2.3) mg/dL Total Bilirubin (0.1-1.2) mg/dL AST (5-40) units/L ALT (7-56) units/L Alkaline Phosphatase (35-129) units/L Total Protein (6.3-8.2) g/dL Albumin (3.9-5) g/dL Albumin/Globulin Ratio % Urine Color (Yellow) Urine Turbidity (Clear) Urine pH (5.0-7.0) Ur Specific [place] (1.003-1.030) Urine Protein (Negative) mg/dL Urine Glucose (UA) (Negative) mg/dL Urine Ketones (Negative) mg/dL Urine Blood (Negative) Urine Nitrite (Negative) Urine Bilirubin (Negative) Urine Urobilinogen (<2.0) mg/dL Ur Leukocyte Esterase (Negative) Urine WBC (Auto) (0.0-6.0) /HPF Urine RBC (Auto) (0.0-6.0) /HPF Vancomycin Trough (5.0-20.0) ug/mL Blood Type Antibody Screen MI Antibody Screen Crossmatch 06/18/17 06/18/17 06/18/17 Range/Units 11:01 11:57 13:04 WBC (4.5-11.0) K/mm3 RBC (3.65-5.03) M/mm3 Hgb (11.8-15.2) gm/dl Hct (35.5-45.6) % MCV (84-94) fl MCH (28-32) pg MCHC (32-34) % RDW (13.2-15.2) % Plt Count (140-440) K/mm3 Lymph % (Auto) (13.4-35.0) % [place] % (Auto) (0.0-7.3) % Eos % (Auto) (0.0-4.3) % Baso % (Auto) (0.0-1.8) % Lymph # (1.2-5.4) K/mm3 [place] # (0.0-0.8) K/mm3 Eos # (0.0-0.4) K/mm3 Baso # (0.0-0.1) K/mm3 Add Manual Diff Total Counted Seg Neutrophils % (40.0-70.0) % Seg Neuts % (Manual) (40.0-70.0) % Band Neutrophils % % Lymphocytes % (Manual) (13.4-35.0) % Reactive Lymphs % (Man) % Monocytes % (Manual) (0.0-7.3) % Eosinophils % (Manual) (0.0-4.3) % Basophils % (Manual) (0.0-1.8) % Metamyelocytes % % Myelocytes % % Promyelocytes % % Blast Cells % % Nucleated RBC % Seg Neutrophils # (1.8-7.7) K/mm3 Seg Neutrophils # Man (1.8-7.7) K/mm3 Band Neutrophils # K/mm3 Lymphocytes # (Manual) (1.2-5.4) K/mm3 Abs React Lymphs (Man) K/mm3 Monocytes # (Manual) (0.0-0.8) K/mm3 Eosinophils # (Manual) (0.0-0.4) K/mm3 Basophils # (Manual) (0.0-0.1) K/mm3 Metamyelocytes # K/mm3 Myelocytes # K/mm3 Promyelocytes # K/mm3 Blast Cells # K/mm3 WBC Morphology Hypersegmented Neuts Hyposegmented Neuts Hypogranular Neuts Smudge Cells Toxic Granulation Toxic Vacuolation Dohle Bodies Pelger-Huet Anomaly Gisella Rods Platelet Estimate Clumped Platelets Plt Clumps, EDTA Large Platelets Giant Platelets Platelet Satelliting Plt Morphology Comment RBC Morphology Dimorphic RBCs Polychromasia Hypochromasia Poikilocytosis Anisocytosis Microcytosis Macrocytosis Spherocytes Pappenheimer Bodies Sickle Cells Target Cells Tear Drop Cells Ovalocytes Helmet Cells [place] Bodies [place] Rings [place] Cells Bite Cells Crenated Cell Elliptocytes Acanthocytes (Spur) Rouleaux Hemoglobin C Crystals Schistocytes Malaria parasites Alex Bodies Hem Pathologist Commnt PT (12.2-14.9) Sec. INR (0.87-1.13) APTT (24.2-36.6) Sec. POC ABG pH (7.35-7.45) POC ABG pCO2 (35-45) POC ABG pO2 (80-105) POC ABG HCO3 POC ABG Total CO2 POC ABG O2 Sat POC ABG Base Excess VBG pH (7.320-7.420) FiO2 % Sodium (137-145) mmol/L Potassium (3.6-5.0) mmol/L Chloride (98-107) mmol/L Carbon Dioxide (22-30) mmol/L Anion Gap mmol/L BUN (9-20) mg/dL Creatinine (0.8-1.5) mg/dL Estimated GFR ml/min BUN/Creatinine Ratio % Glucose (75-100) mg/dL POC Glucose 128 H 118 H 127 H (70-105) Lactic Acid (0.7-2.0) mmol/L Calcium (8.4-10.2) mg/dL Magnesium (1.7-2.3) mg/dL Total Bilirubin (0.1-1.2) mg/dL AST (5-40) units/L ALT (7-56) units/L Alkaline Phosphatase (35-129) units/L Total Protein (6.3-8.2) g/dL Albumin (3.9-5) g/dL Albumin/Globulin Ratio % Urine Color (Yellow) Urine Turbidity (Clear) Urine pH (5.0-7.0) Ur Specific [place] (1.003-1.030) Urine Protein (Negative) mg/dL Urine Glucose (UA) (Negative) mg/dL Urine Ketones (Negative) mg/dL Urine Blood (Negative) Urine Nitrite (Negative) Urine Bilirubin (Negative) Urine Urobilinogen (<2.0) mg/dL Ur Leukocyte Esterase (Negative) Urine WBC (Auto) (0.0-6.0) /HPF Urine RBC (Auto) (0.0-6.0) /HPF Vancomycin Trough (5.0-20.0) ug/mL Blood Type Antibody Screen MI Antibody Screen Crossmatch 06/18/17 06/18/17 06/18/17 Range/Units 13:58 14:50 16:16 WBC (4.5-11.0) K/mm3 RBC (3.65-5.03) M/mm3 Hgb (11.8-15.2) gm/dl Hct (35.5-45.6) % MCV (84-94) fl MCH (28-32) pg MCHC (32-34) % RDW (13.2-15.2) % Plt Count (140-440) K/mm3 Lymph % (Auto) (13.4-35.0) % [place] % (Auto) (0.0-7.3) % Eos % (Auto) (0.0-4.3) % Baso % (Auto) (0.0-1.8) % Lymph # (1.2-5.4) K/mm3 [place] # (0.0-0.8) K/mm3 Eos # (0.0-0.4) K/mm3 Baso # (0.0-0.1) K/mm3 Add Manual Diff Total Counted Seg Neutrophils % (40.0-70.0) % Seg Neuts % (Manual) (40.0-70.0) % Band Neutrophils % % Lymphocytes % (Manual) (13.4-35.0) % Reactive Lymphs % (Man) % Monocytes % (Manual) (0.0-7.3) % Eosinophils % (Manual) (0.0-4.3) % Basophils % (Manual) (0.0-1.8) % Metamyelocytes % % Myelocytes % % Promyelocytes % % Blast Cells % % Nucleated RBC % Seg Neutrophils # (1.8-7.7) K/mm3 Seg Neutrophils # Man (1.8-7.7) K/mm3 Band Neutrophils # K/mm3 Lymphocytes # (Manual) (1.2-5.4) K/mm3 Abs React Lymphs (Man) K/mm3 Monocytes # (Manual) (0.0-0.8) K/mm3 Eosinophils # (Manual) (0.0-0.4) K/mm3 Basophils # (Manual) (0.0-0.1) K/mm3 Metamyelocytes # K/mm3 Myelocytes # K/mm3 Promyelocytes # K/mm3 Blast Cells # K/mm3 WBC Morphology Hypersegmented Neuts Hyposegmented Neuts Hypogranular Neuts Smudge Cells Toxic Granulation Toxic Vacuolation Dohle Bodies Pelger-Huet Anomaly Gisella Rods Platelet Estimate Clumped Platelets Plt Clumps, EDTA Large Platelets Giant Platelets Platelet Satelliting Plt Morphology Comment RBC Morphology Dimorphic RBCs Polychromasia Hypochromasia Poikilocytosis Anisocytosis Microcytosis Macrocytosis Spherocytes Pappenheimer Bodies Sickle Cells Target Cells Tear Drop Cells Ovalocytes Helmet Cells [place] Bodies [place] Rings [place] Cells Bite Cells Crenated Cell Elliptocytes Acanthocytes (Spur) Rouleaux Hemoglobin C Crystals Schistocytes Malaria parasites Alex Bodies Hem Pathologist Commnt PT (12.2-14.9) Sec. INR (0.87-1.13) APTT (24.2-36.6) Sec. POC ABG pH (7.35-7.45) POC ABG pCO2 (35-45) POC ABG pO2 (80-105) POC ABG HCO3 POC ABG Total CO2 POC ABG O2 Sat POC ABG Base Excess VBG pH (7.320-7.420) FiO2 % Sodium (137-145) mmol/L Potassium (3.6-5.0) mmol/L Chloride (98-107) mmol/L Carbon Dioxide (22-30) mmol/L Anion Gap mmol/L BUN (9-20) mg/dL Creatinine (0.8-1.5) mg/dL Estimated GFR ml/min BUN/Creatinine Ratio % Glucose (75-100) mg/dL POC Glucose 148 H 113 H 123 H (70-105) Lactic Acid (0.7-2.0) mmol/L Calcium (8.4-10.2) mg/dL Magnesium (1.7-2.3) mg/dL Total Bilirubin (0.1-1.2) mg/dL AST (5-40) units/L ALT (7-56) units/L Alkaline Phosphatase (35-129) units/L Total Protein (6.3-8.2) g/dL Albumin (3.9-5) g/dL Albumin/Globulin Ratio % Urine Color (Yellow) Urine Turbidity (Clear) Urine pH (5.0-7.0) Ur Specific [place] (1.003-1.030) Urine Protein (Negative) mg/dL Urine Glucose (UA) (Negative) mg/dL Urine Ketones (Negative) mg/dL Urine Blood (Negative) Urine Nitrite (Negative) Urine Bilirubin (Negative) Urine Urobilinogen (<2.0) mg/dL Ur Leukocyte Esterase (Negative) Urine WBC (Auto) (0.0-6.0) /HPF Urine RBC (Auto) (0.0-6.0) /HPF Vancomycin Trough (5.0-20.0) ug/mL Blood Type Antibody Screen MI Antibody Screen Crossmatch 06/18/17 06/18/17 06/18/17 Range/Units 17:22 18:00 18:01 WBC (4.5-11.0) K/mm3 RBC (3.65-5.03) M/mm3 Hgb (11.8-15.2) gm/dl Hct (35.5-45.6) % MCV (84-94) fl MCH (28-32) pg MCHC (32-34) % RDW (13.2-15.2) % Plt Count (140-440) K/mm3 Lymph % (Auto) (13.4-35.0) % [place] % (Auto) (0.0-7.3) % Eos % (Auto) (0.0-4.3) % Baso % (Auto) (0.0-1.8) % Lymph # (1.2-5.4) K/mm3 [place] # (0.0-0.8) K/mm3 Eos # (0.0-0.4) K/mm3 Baso # (0.0-0.1) K/mm3 Add Manual Diff Total Counted Seg Neutrophils % (40.0-70.0) % Seg Neuts % (Manual) (40.0-70.0) % Band Neutrophils % % Lymphocytes % (Manual) (13.4-35.0) % Reactive Lymphs % (Man) % Monocytes % (Manual) (0.0-7.3) % Eosinophils % (Manual) (0.0-4.3) % Basophils % (Manual) (0.0-1.8) % Metamyelocytes % % Myelocytes % % Promyelocytes % % Blast Cells % % Nucleated RBC % Seg Neutrophils # (1.8-7.7) K/mm3 Seg Neutrophils # Man (1.8-7.7) K/mm3 Band Neutrophils # K/mm3 Lymphocytes # (Manual) (1.2-5.4) K/mm3 Abs React Lymphs (Man) K/mm3 Monocytes # (Manual) (0.0-0.8) K/mm3 Eosinophils # (Manual) (0.0-0.4) K/mm3 Basophils # (Manual) (0.0-0.1) K/mm3 Metamyelocytes # K/mm3 Myelocytes # K/mm3 Promyelocytes # K/mm3 Blast Cells # K/mm3 WBC Morphology Hypersegmented Neuts Hyposegmented Neuts Hypogranular Neuts Smudge Cells Toxic Granulation Toxic Vacuolation Dohle Bodies Pelger-Huet Anomaly Gisella Rods Platelet Estimate Clumped Platelets Plt Clumps, EDTA Large Platelets Giant Platelets Platelet Satelliting Plt Morphology Comment RBC Morphology Dimorphic RBCs Polychromasia Hypochromasia Poikilocytosis Anisocytosis Microcytosis Macrocytosis Spherocytes Pappenheimer Bodies Sickle Cells Target Cells Tear Drop Cells Ovalocytes Helmet Cells [place] Bodies [place] Rings [place] Cells Bite Cells Crenated Cell Elliptocytes Acanthocytes (Spur) Rouleaux Hemoglobin C Crystals Schistocytes Malaria parasites Alex Bodies Hem Pathologist Commnt PT (12.2-14.9) Sec. INR (0.87-1.13) APTT (24.2-36.6) Sec. POC ABG pH (7.35-7.45) POC ABG pCO2 (35-45) POC ABG pO2 (80-105) POC ABG HCO3 POC ABG Total CO2 POC ABG O2 Sat POC ABG Base Excess VBG pH (7.320-7.420) FiO2 % Sodium (137-145) mmol/L Potassium (3.6-5.0) mmol/L Chloride (98-107) mmol/L Carbon Dioxide (22-30) mmol/L Anion Gap mmol/L BUN (9-20) mg/dL Creatinine (0.8-1.5) mg/dL Estimated GFR ml/min BUN/Creatinine Ratio % Glucose (75-100) mg/dL POC Glucose 103 125 H (70-105) Lactic Acid (0.7-2.0) mmol/L Calcium (8.4-10.2) mg/dL Magnesium (1.7-2.3) mg/dL Total Bilirubin (0.1-1.2) mg/dL AST (5-40) units/L ALT (7-56) units/L Alkaline Phosphatase (35-129) units/L Total Protein (6.3-8.2) g/dL Albumin (3.9-5) g/dL Albumin/Globulin Ratio % Urine Color (Yellow) Urine Turbidity (Clear) Urine pH (5.0-7.0) Ur Specific [place] (1.003-1.030) Urine Protein (Negative) mg/dL Urine Glucose (UA) (Negative) mg/dL Urine Ketones (Negative) mg/dL Urine Blood (Negative) Urine Nitrite (Negative) Urine Bilirubin (Negative) Urine Urobilinogen (<2.0) mg/dL Ur Leukocyte Esterase (Negative) Urine WBC (Auto) (0.0-6.0) /HPF Urine RBC (Auto) (0.0-6.0) /HPF Vancomycin Trough 21.7 H (5.0-20.0) ug/mL Blood Type Antibody Screen MI Antibody Screen Crossmatch 06/18/17 06/18/17 06/18/17 Range/Units 18:59 20:11 21:21 WBC (4.5-11.0) K/mm3 RBC (3.65-5.03) M/mm3 Hgb (11.8-15.2) gm/dl Hct (35.5-45.6) % MCV (84-94) fl MCH (28-32) pg MCHC (32-34) % RDW (13.2-15.2) % Plt Count (140-440) K/mm3 Lymph % (Auto) (13.4-35.0) % [place] % (Auto) (0.0-7.3) % Eos % (Auto) (0.0-4.3) % Baso % (Auto) (0.0-1.8) % Lymph # (1.2-5.4) K/mm3 [place] # (0.0-0.8) K/mm3 Eos # (0.0-0.4) K/mm3 Baso # (0.0-0.1) K/mm3 Add Manual Diff Total Counted Seg Neutrophils % (40.0-70.0) % Seg Neuts % (Manual) (40.0-70.0) % Band Neutrophils % % Lymphocytes % (Manual) (13.4-35.0) % Reactive Lymphs % (Man) % Monocytes % (Manual) (0.0-7.3) % Eosinophils % (Manual) (0.0-4.3) % Basophils % (Manual) (0.0-1.8) % Metamyelocytes % % Myelocytes % % Promyelocytes % % Blast Cells % % Nucleated RBC % Seg Neutrophils # (1.8-7.7) K/mm3 Seg Neutrophils # Man (1.8-7.7) K/mm3 Band Neutrophils # K/mm3 Lymphocytes # (Manual) (1.2-5.4) K/mm3 Abs React Lymphs (Man) K/mm3 Monocytes # (Manual) (0.0-0.8) K/mm3 Eosinophils # (Manual) (0.0-0.4) K/mm3 Basophils # (Manual) (0.0-0.1) K/mm3 Metamyelocytes # K/mm3 Myelocytes # K/mm3 Promyelocytes # K/mm3 Blast Cells # K/mm3 WBC Morphology Hypersegmented Neuts Hyposegmented Neuts Hypogranular Neuts Smudge Cells Toxic Granulation Toxic Vacuolation Dohle Bodies Pelger-Huet Anomaly Gisella Rods Platelet Estimate Clumped Platelets Plt Clumps, EDTA Large Platelets Giant Platelets Platelet Satelliting Plt Morphology Comment RBC Morphology Dimorphic RBCs Polychromasia Hypochromasia Poikilocytosis Anisocytosis Microcytosis Macrocytosis Spherocytes Pappenheimer Bodies Sickle Cells Target Cells Tear Drop Cells Ovalocytes Helmet Cells [place] Bodies [place] Rings [place] Cells Bite Cells Crenated Cell Elliptocytes Acanthocytes (Spur) Rouleaux Hemoglobin C Crystals Schistocytes Malaria parasites Alex Bodies Hem Pathologist Commnt PT (12.2-14.9) Sec. INR (0.87-1.13) APTT (24.2-36.6) Sec. POC ABG pH (7.35-7.45) POC ABG pCO2 (35-45) POC ABG pO2 (80-105) POC ABG HCO3 POC ABG Total CO2 POC ABG O2 Sat POC ABG Base Excess VBG pH (7.320-7.420) FiO2 % Sodium (137-145) mmol/L Potassium (3.6-5.0) mmol/L Chloride (98-107) mmol/L Carbon Dioxide (22-30) mmol/L Anion Gap mmol/L BUN (9-20) mg/dL Creatinine (0.8-1.5) mg/dL Estimated GFR ml/min BUN/Creatinine Ratio % Glucose (75-100) mg/dL POC Glucose 128 H 108 H 107 H (70-105) Lactic Acid (0.7-2.0) mmol/L Calcium (8.4-10.2) mg/dL Magnesium (1.7-2.3) mg/dL Total Bilirubin (0.1-1.2) mg/dL AST (5-40) units/L ALT (7-56) units/L Alkaline Phosphatase (35-129) units/L Total Protein (6.3-8.2) g/dL Albumin (3.9-5) g/dL Albumin/Globulin Ratio % Urine Color (Yellow) Urine Turbidity (Clear) Urine pH (5.0-7.0) Ur Specific [place] (1.003-1.030) Urine Protein (Negative) mg/dL Urine Glucose (UA) (Negative) mg/dL Urine Ketones (Negative) mg/dL Urine Blood (Negative) Urine Nitrite (Negative) Urine Bilirubin (Negative) Urine Urobilinogen (<2.0) mg/dL Ur Leukocyte Esterase (Negative) Urine WBC (Auto) (0.0-6.0) /HPF Urine RBC (Auto) (0.0-6.0) /HPF Vancomycin Trough (5.0-20.0) ug/mL Blood Type Antibody Screen MI Antibody Screen Crossmatch 06/18/17 06/18/17 06/19/17 Range/Units 22:22 23:04 00:43 WBC (4.5-11.0) K/mm3 RBC (3.65-5.03) M/mm3 Hgb (11.8-15.2) gm/dl Hct (35.5-45.6) % MCV (84-94) fl MCH (28-32) pg MCHC (32-34) % RDW (13.2-15.2) % Plt Count (140-440) K/mm3 Lymph % (Auto) (13.4-35.0) % [place] % (Auto) (0.0-7.3) % Eos % (Auto) (0.0-4.3) % Baso % (Auto) (0.0-1.8) % Lymph # (1.2-5.4) K/mm3 [place] # (0.0-0.8) K/mm3 Eos # (0.0-0.4) K/mm3 Baso # (0.0-0.1) K/mm3 Add Manual Diff Total Counted Seg Neutrophils % (40.0-70.0) % Seg Neuts % (Manual) (40.0-70.0) % Band Neutrophils % % Lymphocytes % (Manual) (13.4-35.0) % Reactive Lymphs % (Man) % Monocytes % (Manual) (0.0-7.3) % Eosinophils % (Manual) (0.0-4.3) % Basophils % (Manual) (0.0-1.8) % Metamyelocytes % % Myelocytes % % Promyelocytes % % Blast Cells % % Nucleated RBC % Seg Neutrophils # (1.8-7.7) K/mm3 Seg Neutrophils # Man (1.8-7.7) K/mm3 Band Neutrophils # K/mm3 Lymphocytes # (Manual) (1.2-5.4) K/mm3 Abs React Lymphs (Man) K/mm3 Monocytes # (Manual) (0.0-0.8) K/mm3 Eosinophils # (Manual) (0.0-0.4) K/mm3 Basophils # (Manual) (0.0-0.1) K/mm3 Metamyelocytes # K/mm3 Myelocytes # K/mm3 Promyelocytes # K/mm3 Blast Cells # K/mm3 WBC Morphology Hypersegmented Neuts Hyposegmented Neuts Hypogranular Neuts Smudge Cells Toxic Granulation Toxic Vacuolation Dohle Bodies Pelger-Huet Anomaly Gisella Rods Platelet Estimate Clumped Platelets Plt Clumps, EDTA Large Platelets Giant Platelets Platelet Satelliting Plt Morphology Comment RBC Morphology Dimorphic RBCs Polychromasia Hypochromasia Poikilocytosis Anisocytosis Microcytosis Macrocytosis Spherocytes Pappenheimer Bodies Sickle Cells Target Cells Tear Drop Cells Ovalocytes Helmet Cells [place] Bodies [place] Rings [place] Cells Bite Cells Crenated Cell Elliptocytes Acanthocytes (Spur) Rouleaux Hemoglobin C Crystals Schistocytes Malaria parasites Alex Bodies Hem Pathologist Commnt PT (12.2-14.9) Sec. INR (0.87-1.13) APTT (24.2-36.6) Sec. POC ABG pH (7.35-7.45) POC ABG pCO2 (35-45) POC ABG pO2 (80-105) POC ABG HCO3 POC ABG Total CO2 POC ABG O2 Sat POC ABG Base Excess VBG pH (7.320-7.420) FiO2 % Sodium (137-145) mmol/L Potassium (3.6-5.0) mmol/L Chloride (98-107) mmol/L Carbon Dioxide (22-30) mmol/L Anion Gap mmol/L BUN (9-20) mg/dL Creatinine (0.8-1.5) mg/dL Estimated GFR ml/min BUN/Creatinine Ratio % Glucose (75-100) mg/dL POC Glucose 118 H 171 H 141 H (70-105) Lactic Acid (0.7-2.0) mmol/L Calcium (8.4-10.2) mg/dL Magnesium (1.7-2.3) mg/dL Total Bilirubin (0.1-1.2) mg/dL AST (5-40) units/L ALT (7-56) units/L Alkaline Phosphatase (35-129) units/L Total Protein (6.3-8.2) g/dL Albumin (3.9-5) g/dL Albumin/Globulin Ratio % Urine Color (Yellow) Urine Turbidity (Clear) Urine pH (5.0-7.0) Ur Specific [place] (1.003-1.030) Urine Protein (Negative) mg/dL Urine Glucose (UA) (Negative) mg/dL Urine Ketones (Negative) mg/dL Urine Blood (Negative) Urine Nitrite (Negative) Urine Bilirubin (Negative) Urine Urobilinogen (<2.0) mg/dL Ur Leukocyte Esterase (Negative) Urine WBC (Auto) (0.0-6.0) /HPF Urine RBC (Auto) (0.0-6.0) /HPF Vancomycin Trough (5.0-20.0) ug/mL Blood Type Antibody Screen MI Antibody Screen Crossmatch 06/19/17 06/19/17 06/19/17 Range/Units 01:29 02:06 03:01 WBC (4.5-11.0) K/mm3 RBC (3.65-5.03) M/mm3 Hgb (11.8-15.2) gm/dl Hct (35.5-45.6) % MCV (84-94) fl MCH (28-32) pg MCHC (32-34) % RDW (13.2-15.2) % Plt Count (140-440) K/mm3 Lymph % (Auto) (13.4-35.0) % [place] % (Auto) (0.0-7.3) % Eos % (Auto) (0.0-4.3) % Baso % (Auto) (0.0-1.8) % Lymph # (1.2-5.4) K/mm3 [place] # (0.0-0.8) K/mm3 Eos # (0.0-0.4) K/mm3 Baso # (0.0-0.1) K/mm3 Add Manual Diff Total Counted Seg Neutrophils % (40.0-70.0) % Seg Neuts % (Manual) (40.0-70.0) % Band Neutrophils % % Lymphocytes % (Manual) (13.4-35.0) % Reactive Lymphs % (Man) % Monocytes % (Manual) (0.0-7.3) % Eosinophils % (Manual) (0.0-4.3) % Basophils % (Manual) (0.0-1.8) % Metamyelocytes % % Myelocytes % % Promyelocytes % % Blast Cells % % Nucleated RBC % Seg Neutrophils # (1.8-7.7) K/mm3 Seg Neutrophils # Man (1.8-7.7) K/mm3 Band Neutrophils # K/mm3 Lymphocytes # (Manual) (1.2-5.4) K/mm3 Abs React Lymphs (Man) K/mm3 Monocytes # (Manual) (0.0-0.8) K/mm3 Eosinophils # (Manual) (0.0-0.4) K/mm3 Basophils # (Manual) (0.0-0.1) K/mm3 Metamyelocytes # K/mm3 Myelocytes # K/mm3 Promyelocytes # K/mm3 Blast Cells # K/mm3 WBC Morphology Hypersegmented Neuts Hyposegmented Neuts Hypogranular Neuts Smudge Cells Toxic Granulation Toxic Vacuolation Dohle Bodies Pelger-Huet Anomaly Gisella Rods Platelet Estimate Clumped Platelets Plt Clumps, EDTA Large Platelets Giant Platelets Platelet Satelliting Plt Morphology Comment RBC Morphology Dimorphic RBCs Polychromasia Hypochromasia Poikilocytosis Anisocytosis Microcytosis Macrocytosis Spherocytes Pappenheimer Bodies Sickle Cells Target Cells Tear Drop Cells Ovalocytes Helmet Cells [place] Bodies [place] Rings [place] Cells Bite Cells Crenated Cell Elliptocytes Acanthocytes (Spur) Rouleaux Hemoglobin C Crystals Schistocytes Malaria parasites Alex Bodies Hem Pathologist Commnt PT (12.2-14.9) Sec. INR (0.87-1.13) APTT (24.2-36.6) Sec. POC ABG pH (7.35-7.45) POC ABG pCO2 (35-45) POC ABG pO2 (80-105) POC ABG HCO3 POC ABG Total CO2 POC ABG O2 Sat POC ABG Base Excess VBG pH (7.320-7.420) FiO2 % Sodium (137-145) mmol/L Potassium (3.6-5.0) mmol/L Chloride (98-107) mmol/L Carbon Dioxide (22-30) mmol/L Anion Gap mmol/L BUN (9-20) mg/dL Creatinine (0.8-1.5) mg/dL Estimated GFR ml/min BUN/Creatinine Ratio % Glucose (75-100) mg/dL POC Glucose 124 H 137 H 135 H (70-105) Lactic Acid (0.7-2.0) mmol/L Calcium (8.4-10.2) mg/dL Magnesium (1.7-2.3) mg/dL Total Bilirubin (0.1-1.2) mg/dL AST (5-40) units/L ALT (7-56) units/L Alkaline Phosphatase (35-129) units/L Total Protein (6.3-8.2) g/dL Albumin (3.9-5) g/dL Albumin/Globulin Ratio % Urine Color (Yellow) Urine Turbidity (Clear) Urine pH (5.0-7.0) Ur Specific [place] (1.003-1.030) Urine Protein (Negative) mg/dL Urine Glucose (UA) (Negative) mg/dL Urine Ketones (Negative) mg/dL Urine Blood (Negative) Urine Nitrite (Negative) Urine Bilirubin (Negative) Urine Urobilinogen (<2.0) mg/dL Ur Leukocyte Esterase (Negative) Urine WBC (Auto) (0.0-6.0) /HPF Urine RBC (Auto) (0.0-6.0) /HPF Vancomycin Trough (5.0-20.0) ug/mL Blood Type Antibody Screen MI Antibody Screen Crossmatch 06/19/17 Range/Units 04:37 WBC (4.5-11.0) K/mm3 RBC (3.65-5.03) M/mm3 Hgb (11.8-15.2) gm/dl Hct (35.5-45.6) % MCV (84-94) fl MCH (28-32) pg MCHC (32-34) % RDW (13.2-15.2) % Plt Count (140-440) K/mm3 Lymph % (Auto) (13.4-35.0) % [place] % (Auto) (0.0-7.3) % Eos % (Auto) (0.0-4.3) % Baso % (Auto) (0.0-1.8) % Lymph # (1.2-5.4) K/mm3 [place] # (0.0-0.8) K/mm3 Eos # (0.0-0.4) K/mm3 Baso # (0.0-0.1) K/mm3 Add Manual Diff Total Counted Seg Neutrophils % (40.0-70.0) % Seg Neuts % (Manual) (40.0-70.0) % Band Neutrophils % % Lymphocytes % (Manual) (13.4-35.0) % Reactive Lymphs % (Man) % Monocytes % (Manual) (0.0-7.3) % Eosinophils % (Manual) (0.0-4.3) % Basophils % (Manual) (0.0-1.8) % Metamyelocytes % % Myelocytes % % Promyelocytes % % Blast Cells % % Nucleated RBC % Seg Neutrophils # (1.8-7.7) K/mm3 Seg Neutrophils # Man (1.8-7.7) K/mm3 Band Neutrophils # K/mm3 Lymphocytes # (Manual) (1.2-5.4) K/mm3 Abs React Lymphs (Man) K/mm3 Monocytes # (Manual) (0.0-0.8) K/mm3 Eosinophils # (Manual) (0.0-0.4) K/mm3 Basophils # (Manual) (0.0-0.1) K/mm3 Metamyelocytes # K/mm3 Myelocytes # K/mm3 Promyelocytes # K/mm3 Blast Cells # K/mm3 WBC Morphology Hypersegmented Neuts Hyposegmented Neuts Hypogranular Neuts Smudge Cells Toxic Granulation Toxic Vacuolation Dohle Bodies Pelger-Huet Anomaly Gisella Rods Platelet Estimate Clumped Platelets Plt Clumps, EDTA Large Platelets Giant Platelets Platelet Satelliting Plt Morphology Comment RBC Morphology Dimorphic RBCs Polychromasia Hypochromasia Poikilocytosis Anisocytosis Microcytosis Macrocytosis Spherocytes Pappenheimer Bodies Sickle Cells Target Cells Tear Drop Cells Ovalocytes Helmet Cells [place] Bodies [place] Rings [place] Cells Bite Cells Crenated Cell Elliptocytes Acanthocytes (Spur) Rouleaux Hemoglobin C Crystals Schistocytes Malaria parasites Alex Bodies Hem Pathologist Commnt PT (12.2-14.9) Sec. INR (0.87-1.13) APTT (24.2-36.6) Sec. POC ABG pH (7.35-7.45) POC ABG pCO2 (35-45) POC ABG pO2 (80-105) POC ABG HCO3 POC ABG Total CO2 POC ABG O2 Sat POC ABG Base Excess VBG pH (7.320-7.420) FiO2 % Sodium (137-145) mmol/L Potassium (3.6-5.0) mmol/L Chloride (98-107) mmol/L Carbon Dioxide (22-30) mmol/L Anion Gap mmol/L BUN (9-20) mg/dL Creatinine (0.8-1.5) mg/dL Estimated GFR ml/min BUN/Creatinine Ratio % Glucose (75-100) mg/dL POC Glucose 126 H (70-105) Lactic Acid (0.7-2.0) mmol/L Calcium (8.4-10.2) mg/dL Magnesium (1.7-2.3) mg/dL Total Bilirubin (0.1-1.2) mg/dL AST (5-40) units/L ALT (7-56) units/L Alkaline Phosphatase (35-129) units/L Total Protein (6.3-8.2) g/dL Albumin (3.9-5) g/dL Albumin/Globulin Ratio % Urine Color (Yellow) Urine Turbidity (Clear) Urine pH (5.0-7.0) Ur Specific Henderson (1.003-1.030) Urine Protein (Negative) mg/dL Urine Glucose (UA) (Negative) mg/dL Urine Ketones (Negative) mg/dL Urine Blood (Negative) Urine Nitrite (Negative) Urine Bilirubin (Negative) Urine Urobilinogen (<2.0) mg/dL Ur Leukocyte Esterase (Negative) Urine WBC (Auto) (0.0-6.0) /HPF Urine RBC (Auto) (0.0-6.0) /HPF Vancomycin Trough (5.0-20.0) ug/mL Blood Type Antibody Screen MI Antibody Screen Crossmatch - EKG Data -: EKG Interpreted by Nv - EKG Data 06/12/17 19:03 sinus tachycardia, left axis deviation, atrial enlargement, borderline left anterior fascicular block, abnormal EKG, not morphologically consistent with stemi - Radiology Data Radiology results: image reviewed Critical care attestation.: If time is entered above; I have spent that time in minutes in the direct care of this critically ill patient, excluding procedure time. ED Disposition Clinical Impression: SIRS (systemic inflammatory response syndrome), Hypotension, Postoperative hemorrhage Disposition: DC-09 OP ADMIT IP TO THIS HOSP Is pt being admited?: Yes Condition: Fair
--- NOTE | 2017-06-12 18:36 | Admit Criteria Form ---
Admission Criteria Documentation: SYSTEMIC OR INFECTIOUS CONDITION Clinical Indications for Admission to Inpatient Care (Place 'X' for any and all applicable criteria): Hospital admission is needed for appropriate care of the patient because of ANY ONE of the following: [X]I. Hemodynamic instability indicated by ANY ONE of the following(1)(2)(3)( 4)(5): [X]a. Vital sign abnormality not readily corrected by appropriate treatment within 12 to 24 hours indicated by ANY ONE of the following: [X]i) Tachycardia that persists despite appropriate treatment [X]ii) Hypotension that persists despite appropriate treatment []iii) Orthostatic vital sign changes that persist despite appropriate treatment [X]b. Vital sign abnormality that is severe indicated by ANY ONE of the following: [X]i. Inadequate perfusion indicated by ANY ONE of the following : [X]1) Lactic acidosis (greater than 2 mmol/L) []2) New abnormal capillary refill (greater than 3 seconds) []3) Reduced urine output []4) New altered mental status []5) Myocardial Ischemia []ii. Mean arterial pressure [A] less than 60 mm Hg []iii. Mean arterial pressure[A] less than 70 mm Hg after 30 minutes of appropriate treatment (eg, fluid resuscitation) []iv. Sustained heart rate greater than 120 beats per minute in adult []v. IV inotropic or vasopressor medication required to maintain adequate blood pressure or perfusion []II. Systemic or infectious condition causing severe symptoms or findings not responsive to emergency or observation care treatment (as appropriate) indicated by ANY ONE of the following: []a. Cardiac arrhythmias of immediate concern(1)(2)(3) []b. Severe endocrine disorder (eg, thyrotoxicosis, adrenal insufficiency)(4)(5) []c. Seizures (eg, new or recurrent)(6) []d. New-onset end organ failure or dysfunction as indicated by ANY ONE of the following: []i. Acute unexplained hypoxemia (eg, not from lung infection or chronic disease)(7)(8)(9) []ii. Acute renal failure as indicated by new onset of ANY ONE of the following(10)(11)(12)(13)(14): []1) 3-fold rise in serum creatinine from baseline []2) Serum creatinine greater than 4 mg/dL (354 micromoles/L) with acute rise greater than 0.5 mg/dL (44.2 micromoles/L) []3) Reduction of more than 75% in estimated glomerular filtration rate from baseline. []4) Estimated glomerular filtration rate less than 35 mL/min/1.73m2 ( 0.59 mL/sec/1.73m2) in child younger than 18 years. []5) Cessation of urine output indicated by ALL of the following: []A. Adequate volume status []B. Inadequate urine output as indicated by ANY ONE of the following: []a. Urine output less than 0.3 mL/kg/hr for 24 hours []b. Anuria (urine output less than 0.1 mL/kg/hr) for 12 hours []iii. Acute mental status changes(15) []iv. Acute hepatic failure (eg, plasma bilirubin greater than 4 mg/ dL (68 micromoles/L), new INR greater than 2.0)(16)(17) []e. Unmanageable nausea and vomiting(18) []f. New-onset or uncontrolled central diabetes insipidus(19)(20) []g. Clinically significant dehydration(18)(21) []h. Hypoglycemia(22) []i. Acidosis (pH less than 7.35) or alkalosis (pH greater than 7.45)( 22)(23) []j. Toxic drug level that indicates need for specific monitoring or treatment(24)(25) []k. Severe electrolyte abnormalities indicated by ALL of the following( 1)(2)(3): []i. Electrolytes and associated findings are not as expected for patient baseline or acceptable treatment effects. []ii. Severe abnormalities indicated by ANY ONE of the following: []1) Sodium less than 130 mEq/L (mmol/L) (new) []2) Sodium less than 135 mEq/L (mmol/L) with ANY ONE of the following: []A. Uncorrectable (to near normal or chronic baseline) after trial of outpatient and emergency treatment []B. Altered mental status []C. Seizures []D. Severe medical etiology requiring inpatient management (eg , heart failure, hypovolemia) []3) Sodium greater than 155 mEq/L (mmol/L) []4) Sodium greater than 150 mEq/L (mmol/L) with ANY ONE of the following: []A. Uncorrectable (to near normal or chronic baseline) with outpatient and emergency treatment []B. Altered mental status []C. Seizures []D. Severe medical etiology (eg, hypovolemia, diabetes insipidus) []5) Potassium less than 2.5 mEq/L (mmol/L) despite outpatient and emergency treatment []6) Potassium less than 3 mEq/L (mmol/L) with ANY ONE of the following : []A. Weakness []B. Cardiac abnormality (eg, arrhythmia, conduction disturbance ) []C. Cardiac ischemia []D. Ileus []E. Ongoing medical cause requiring inpatient management (eg, acute renal wasting or SIADH) []F. Other severe symptoms []7) Potassium greater than 6.5 mEq/L (mmol/L) []8) Potassium greater than 5 mEq/L (mmol/L) with ANY ONE of the following: []A. Uncorrectable (to near normal or chronic baseline) with outpatient and emergency treatment []B. Severe ECG findings[A] []C. Acute worsening of renal failure (creatinine greater than 2.5 mg/dL (221 micromoles/L) or significant elevation for age and size) []D. Severe weakness []E. Severe medical etiology (eg, hemolysis, infection, drug overdose) []9) Calcium less than 7 mg/dL (1.75 mmol/L) despite outpatient and emergency treatment(5) []10) Calcium less than 8 mg/dL (2 mmol/L) with significant symptoms or findings (eg, altered mental status, muscle spasms, seizures, breathing difficulty, cardiac abnormality (eg, arrhythmia or conduction disturbance))(5) []11) Calcium greater than 14 mg/dL (3.5 mmol/L)(5) []12) Calcium greater than 12 mg/dL (3 mmol/L) with ANY ONE of the following(5): []A. Uncorrectable (to near normal or chronic baseline) with outpatient and emergency treatment []B. Significant dehydration or hypovolemia as indicated by ALL of the following(3)(6)(7): []a. Not resolved with initial treatments []b. Clinically significant dehydration as indicated by ANY ONE of the following: [](1) Vomiting refractory to outpatient treatment (ie, precluding oral rehydration) [](2) Inability to drink [](3) Hypernatremia or other electrolyte abnormality unable to be corrected with outpatient and emergency treatment [](4) Failure to remain hydrated with outpatient therapy [](5) Reduced urine output [](6) Hypotension [](7) Serious cause for dehydration requiring acute hospitalization ( eg, bowel obstruction, increased intracranial pressure, infectious cause) [](8) Child with ANY ONE of the following(8): [](i) Severe abdominal tenderness [](ii) Adequate care not available at home [](iii) Severe dehydration (greater than 9% loss of body weight) []C. Significant symptoms or findings (eg, altered mental status , cardiac abnormality (eg, arrhythmia, conduction disturbance), malignant etiology requiring inpatient treatment) []13) Phosphorus less than 1 mg/dL (0.32 mmol/L) []14) Phosphorus less than 1.5 mg/dL (0.48 mmol/L) with ANY ONE of the following: []A. Patient unresponsive to outpatient and emergency treatment []B. Significant symptoms or findings (eg, weakness, altered mental status, breathing difficulty, seizures, rhabdomyolysis) []15) Phosphorus greater than 10 mg/dL (3.2 mmol/L) []16) Phosphorus greater than 4.5 mg/dL (1.45 mmol/L) (new) with ANY ONE of the following: []A. Severe medical etiology (eg, crush injury, acute renal failure) []B. Associated hypocalcemia with significant findings (eg, neurologic symptoms, altered mental status, muscle spasms, seizures, breathing difficulty, cardiac abnormality (eg, arrhythmia, conduction disturbance)) []16) Magnesium less than 1 mg/dL (0.41 mmol/L) []17) Magnesium less than 1.5 mg/dL (0.62 mmol/L) with ANY ONE of the following: []A. Patient unresponsive to outpatient and emergency treatment []B. Associated hypocalcemia with significant findings (eg, altered mental status, muscle spasms, seizures, breathing difficulty, cardiac abnormality (eg, arrhythmia, conduction disturbance)) []C. Associated hypokalemia (potassium less than 3 mEq/L (mmol/L )) with risk of arrhythmia []18) Magnesium greater than 4 mEq/L (2 mmol/L) []19) Magnesium greater than 2.5 mEq/L (1.25 mmol/L) with significant symptoms or findings (eg, weakness, altered mental status, cardiac abnormality (eg, arrhythmia, conduction disturbance), breathing difficulty, severe medical etiology (eg, renal failure, hypovolemia)) []20) Uric acid greater than 20 mg/dL (1190 micromoles/L)(9) []21) Uric acid greater than 8 mg/dL (476 micromoles/L) with significant symptoms or findings of tumor lysis syndrome (eg, creatinine greater than 1.5 times upper limit of normal, cardiac abnormality (eg , arrhythmia, conduction disturbance), seizure)(9) []III. High fever or other high-risk infection situation as indicated by ANY ONE of the following(26)(27)(28): []a. Outpatient and observation care antimicrobial treatment unavailable, not effective, or not appropriate []b. Documented bacteremia []c. Temperature greater than 104.9 degrees F (40.5 degrees C) (oral) []d. Temperature greater than 103.1 degrees F (39.5 degrees C) (oral) or less than 96.8 degrees F (36 degrees C) (rectal) that does not respond to emergency treatment and observation care []IV. High-risk febrile neutropenia[A] as indicated by ANY ONE of the following(29)(30)(31)(32): []a. Profound neutropenia[B] anticipated to extend for more than 7 days []b. Hemodynamic instability []c. Hypoxemia []d. Tachypnea []e. Altered mental status []f. New-onset abdominal pain []g. New-onset vomiting or diarrhea []h. Oral or gastrointestinal mucositis that interferes with swallowing or causes severe diarrhea []i. Focal infection (eg, cellulitis, pneumonia, central line or catheter infection, perirectal abscess) []j. Renal insufficiency (eg, GFR of less than 30 mL/min/1.73m2 (0.5 mL/sec /1.73m2)). []k. Severe liver dysfunction (transaminase levels greater than 5 times normal) []l. Platelet count less than 50,000/mm3 (50 x109/L)(33) []m. Leukemia or lymphoma induction therapy []n. Leukemia not in complete remission or with evidence of disease progression []o. Bone marrow transplant patient []p. Alemtuzumab being used for therapy []q. Multinational Association for Supportive Care in Cancer (MASCC) Risk Index score of less than 21[C](33)(35). []V. Isolation required (eg, tuberculosis that requires isolation, Ebola infection)[D](36)(37)(38)(39)(40) []. Gangrene that requires treatment beyond emergency or observation level care(41)(42) []VII. Antitoxin administration and ongoing observation required (eg, tetanus, botulism)(43)(44) []. Suspected infection with rapid progression or severe symptoms as indicated by ANY ONE of the following(45): []a. Streptococcal or staphylococcal toxic shock(46) []b. Diphtheria(47) []c. Hantavirus(48) []d. Severe acute respiratory syndrome(8)(49) []e. Anthrax(50) []f. Ebola[D](36)(37)(38) []g. Necrotizing soft tissue infection(41)(42) []h. Plague(50) []i. Other suspected infection that requires care beyond emergency or observation level care []VII. Severe adverse drug or systemic toxin reaction as indicated by ANY ONE of the following(24): []a. Serotonin syndrome(51)(52) []b. Neuroleptic malignant syndrome(51)(52) []c. Cholinergic syndrome with severe symptoms (eg, bronchorrhea, weakness , mental status changes, seizures)(53) []d. Anticholinergic syndrome []e. Sympathetic syndrome with severe symptoms (eg, seizures, mental status changes, cardiac dysrhythmias) []f. Other severe adverse drug or systemic toxin reaction that remains after emergency or observation level care (as appropriate) []VIII. Allergic reaction with severe symptoms (not responsive to emergency or observation care treatment as appropriate), including ANY ONE of the following(54): []a. Airway edema (pharyngeal, epiglottic, or laryngeal edema) []b. Stridor []c. Respiratory failure []d. Bronchospasm []e. Hypotension []IX. Environmental emergency (not responsive to emergency or observation care treatment as appropriate) as indicated by ANY ONE of the following(55)(56): []a. Hyperthermia []b. Heat stroke []c. Heat exhaustion []d. Hypothermia (temperature less than 95 degrees F (35 degrees C) rectal) (57) []e. Electrocution(58) []X. Complications of transplanted organ (ie, not covered elsewhere)[E] indicated by ANY ONE of the following(59): []a. Acute graft rejection (or graft vs. host disease)[F] requiring inpatient management (eg, intravenous immunosuppression)(60)(61)(62)( 63) []b. Acute failure of transplanted organ necessitating inpatient care (eg, cannot be managed in other setting) []c. Infection requiring inpatient management (eg, Hemodynamic instability, need for intravenous antimicrobial treatment)(64)(65) []d. Other complication of transplanted organ requiring inpatient management []XI. Systemic or Infectious Condition condition, symptom, or finding for which emergency and observation care have failed or are not considered appropriate. See General Criteria: Observation Care, General Admission Criteria or Pediatric General Admission Criteria guideline as appropriate. The original [facility] content created by [email or web address] has been revised. The portions of the content which have been revised are identified through the use of italic text or in bold and [facility] has neither reviewed nor approved the modified material. All other unmodified content is copyright [facility]. Please see references footnoted in the original [facility] edition 2016 Admission Criteria Met: Yes
[2017-06-12] MEDS ORDERED: VANCOMYCIN PHARMACY TO DOSE IV SCH (19:00)
[2017-06-12 19:08] LABS: Basophils % (Auto) 0.3 % (0.0-1.8); Eosinophils % (Auto) 1.2 % (0.0-4.3); Hematocrit 24.2 % (35.5-45.6); Hemoglobin 7.7 gm/dl (11.8-15.2); Mean Corpuscular HGB Conc 32 % (32-34); Mean Corpuscular Hemoglobin 29 pg (28-32); Mean Corpuscular Volume 92 fl (84-94); Platelet Count 263 K/mm3 (140-440); Red Blood Count 2.63 M/mm3 (3.65-5.03); Red Cell Distribution Width 16.4 % (13.2-15.2); White Blood Count 15.8 K/mm3 (4.5-11.0)
[2017-06-12 19:17] LABS: Albumin 2.3 g/dL (3.9-5); Albumin/Globulin Ratio 0.7 %; BUN/Creatinine Ratio 21.25; Bilirubin,Total 0.4 mg/dL (0.1-1.2); Calcium 8.1 mg/dL (8.4-10.2); Chloride 87.4 mmol/L (98-107); Potassium 4.3 mmol/L (3.6-5.0); Total Protein 5.8 g/dL (6.3-8.2)
[2017-06-12 19:20] LABS: INR 1.18 (0.87-1.13)
[2017-06-12] MEDS ORDERED: VANCOMYCIN 2,000 MG in NACL 0.9% 500 ML 500 ML IV ONE (19:30)
[2017-06-12 21:37] LABS: Bilirubin,Urine NEG (Negative); Blood,Urine NEG (Negative); Ketones,Urine NEG (Negative); Leukocyte Esterase,Urine NEG (Negative); Nitrite,Urine NEG (Negative); Protein,Urine <15 mg/dL mg/dL (Negative)
[2017-06-12] MEDS ORDERED: LEVOPHED DRIP 4 MG/NS 250 ML 4 MG/250 ML BAG IV ONE (21:58)
[2017-06-12] MEDS ORDERED: TYLENOL PO PRN (22:08)
[2017-06-12] MEDS ORDERED: ZOFRAN IV PRN (22:19)
[2017-06-12] MEDS ORDERED: ATIVAN ONE (22:21)
[2017-06-12] MEDS ORDERED: ATIVAN IV ONE (22:23)
[2017-06-12] MEDS: LEVOPHED DRIP 4 MG/NS 250 ML 4 MG/250 ML BAG IV SCH (22:36)
--- NOTE | 2017-06-12 22:53 | Procedure Note ---
Date of procedure: 06/12/17 Pre-op diagnosis: shock Post-op diagnosis: same Procedure: Right femoral central line triple lumen line placement Anesthesia: local Surgeon: SKYLAR ALLAN Estimated blood loss: minimal (5cc) Pathology: none Condition: stable Disposition: ICU
[2017-06-12] MEDS ORDERED: LEVOPHED DRIP 4 MG/NS 250 ML 4 MG/250 ML BAG IV SCH (23:00)
[2017-06-12] MEDS ORDERED: NACL 0.9% 1000 ML 1,000 ML IV SCH (23:00)
[2017-06-12] MEDS ORDERED: HALDOL IM ONE (23:07)
[2017-06-13 00:50] LABS: Hemoglobin 6.3 gm/dl (11.8-15.2)
[2017-06-13 00:52] LABS: Hematocrit 19.6 % (35.5-45.6)
[2017-06-13] MEDS ORDERED: NACL 0.9% 500 ML 500 ML IV ONE ×2 (01:02→07:51)
--- NOTE | 2017-06-13 01:41 | Event Note ---
Date: 06/13/17 Patient with critical hemoglobin of 6.2, blood pressure 80s over 40s, I spoke with Dr. Parker, the vascular surgeon he recommended transfusion and continued care and treatment.
[2017-06-13] MEDS ORDERED: PNEUMOVAX 23 IM ONE (02:16)
[2017-06-13 05:52] LABS: Hematocrit 22.1 % (35.5-45.6); Hemoglobin 7.1 gm/dl (11.8-15.2)
[2017-06-13] MEDS ORDERED: NACL 0.9% 1000 ML 2,000 ML ONE (07:59)
[2017-06-13] MEDS ORDERED: NACL 0.9% 500 ML 500 ML ONE ×2 (08:12→10:54)
--- NOTE | 2017-06-13 09:13 | XRay Report ---
AP chest x-ray. History: Sepsis. Findings: The heart and pulmonary vessels are normal. The lungs are clear. No pleural fluid is seen. Median sternotomy sutures and surgical clips are noted. Impression: No acute findings.
--- NOTE | 2017-06-13 09:15 | XRay Report ---
Left tibia fibula. History: Postoperative fever and bleeding. Findings: A total knee prosthesis is demonstrated in satisfactory position. Soft tissue gas and surgical clips are noted. The bony structures are otherwise normal.
--- NOTE | 2017-06-13 09:37 | History and Physical Report ---
CHIEF COMPLAINT: Bleeding from the left leg area and left groin area. HISTORY OF PRESENT ILLNESS: The patient is a 76-year-old male who has had multiple vascular surgeries including evacuation of the left groin hernia with skin debridement. Also, the patient has had ____ flap coverage of the left femoral popliteal bypass and had a wound VAC placement in the left groin. The patient was brought to the hospital because of bleeding from the left lower extremity. The patient was noted to be having change in mental status and had a wound VAC placed in the left groin area after the debridement and surgery that was done by the vascular doctor on 06/08/2017 and has been bleeding since then with that the wound VAC not being able to control the bleeding and there was no history of shortness of breath. No history of chest pain and because of this the patient was brought in for evaluation. PAST MEDICAL HISTORY: Pertinent for congestive heart failure, diabetes mellitus, DVT, kidney stones, hypertension. PAST SURGICAL HISTORY: Pertinent for stent placement, coronary artery bypass graft, left foot surgery. FAMILY HISTORY: Noncontributory. SOCIAL HISTORY: The patient does not smoke currently, does not drink alcohol and does not use illicit drugs. MEDICATIONS: The patient's home medications include dorzolamide/timolol (Cosopt PF) 2 drops intraocular q.12h. Also, the patient is on Jardiance 25 mg p.o. daily and Pradaxa 75 mg p.o. b.i.d. ALLERGIES: THE PATIENT IS ALLERGIC TO BISMUTH SUBSALICYLATE ____ PERCOCET, DEMEROL, MORPHINE, PROPOXYPHENE, DARVOCET. REVIEW OF SYSTEMS: CONSTITUTIONAL: There is no fever, no chills, no diaphoresis. HEENT: There is no headache or sore throat. CARDIOVASCULAR: There is no chest pain, orthopnea. RESPIRATORY: There is no shortness of breath or cough. GASTROINTESTINAL: There is no nausea, no vomiting, no abdominal pain, diarrhea or constipation. NEUROLOGICAL: Change in mental status noted. MUSCULOSKELETAL: There is bleeding from the left lower extremity and pain in the left lower extremity. DERMATOLOGICAL: Bleeding from the left lower extremity with the wound VAC in place noted. GENITOURINARY SYSTEM: There is no dysuria, hematuria or flank pain. Rest of system review is normal. PHYSICAL EXAMINATION: GENERAL: At the time of exam, the patient was found to be alert, oriented to person and place, not in acute distress. VITAL SIGNS: Last vital signs recorded shows temperature of 99.5 degrees Fahrenheit, pulse of 108, blood pressure of 79/42 with MAP of 54, O2 sat of 100% on oxygen. HEENT: At the time of evaluation show pupils to be equal, round, reactive to light and accommodation. Extraocular muscles are intact. NECK: Supple with no JVD or carotid bruit. CARDIOVASCULAR: Show first and second heart sounds with no gallops or murmur. RESPIRATORY: Show good air entry on both sides of the lung with no abnormal breath sounds. GASTROINTESTINAL: Show abdomen to be full, soft, nontender with no organomegaly or rigidity. NEUROLOGIC: Shows no focal deficit. MUSCULOSKELETAL: Showed the left leg is dressed up with blood stained all over suggestive of mild active bleeding and a wound VAC in place. DERMATOLOGICAL: Show blood stained left lower extremity wound VAC in place. GENITOURINARY: Show no costovertebral angle tenderness. PERTINENT LABORATORY AND IMAGING STUDIES: The patient had CBC done that shows elevated white count of 15,800 with a low hemoglobin of 7.2 and low hematocrit of 24.7. CBC differential was unremarkable. Chemistry shows low sodium of 127, elevated BUN of 34 with elevated creatinine of 1.4 with high lactic acid of 1.70 and high glucose level of 487. Urinalysis was unremarkable. IMAGING STUDIES: The patient had x-ray of the tibia and fibula done. Chest x-ray was unremarkable. DIAGNOSES: 1. Surgical wound breakdown. 2. Hyperglycemia. PLAN: The patient will be admitted to the ICU and vascular surgical consult with Dr. Oscar Joy. The patient will have vascular surgical consult with vascular surgeon collection administrator and will have packed red blood cells typed and screened and also the patient will have wound care nurse consult in the morning and will have hemoglobin and hematocrit monitored every 6 hours. The patient will be on ceftriaxone 1 gram q.24h. and will be on Levophed, which will be titrated to IV to keep mean arterial blood pressure at 65. The patient will be on IV normal saline at 125 mL an hour, pending any decision for transfusion and will be admitted to ICU because of the need for IV Levophed. Further management of the patient's bleeding wound will be decided by the vascular surgeon collection administrator. JOB# [id number] OCN/NTS
[2017-06-13] MEDS ORDERED: NACL 0.9% 1000 ML IV ONE (09:50)
[2017-06-13] MEDS: ROCEPHIN/NS 1 GM/50 ML 1 GM/50 ML BAG IV SCH ×2 (10:00→16:28)
--- NOTE | 2017-06-13 11:45 | Consultation ---
History of Present Illness - Reason for Consult Consult date: 06/13/17 Hypotension/acute blood loss anemia Requesting physician: BROOKE GUALLPA - History of Present Illness 76 y/o male, previously admitted to ICU at [facility] for several days, discharge to [facility] with wound vac who presented to the ED, hypotensive and with blood in wound vac. HgB was 6 on admission. Typed and crossed for 3 units, given 2 overnight. several small fluid boluses but nothing large as there was concern for CHF. Patient had central line placed and started on levophed therapy. Currently on 12 mcgs and has a MAP of 80 now. Past History Past Medical History: hypertension, other (PVD) Past Surgical History: Other (Past Vascular Interventions) Medications and Allergies Allergies Allergy/AdvReac Type Severity Reaction Status Date / Time bismuth subsalicylate Allergy Vomiting Verified 06/07/17 11:27 castor oil Allergy Vomiting Verified 06/07/17 11:27 oxycodone HCl [From Percocet] Allergy Dizziness Verified 06/07/17 11:27 meperidine HCl [From Demerol] AdvReac COMBATIVENE Verified 06/07/17 11:27 SS morphine AdvReac Unknown Verified 06/07/17 11:27 propoxyphene napsylate AdvReac Dizziness Verified 06/07/17 11:27 [From Darvocet-N] NARCOTICS AdvReac COMBATIVENE Uncoded 06/07/17 11:27 SS Home Medications Medication Instructions Recorded Confirmed Last Taken Type Dorzolamide/Timolol/Pf [Cosopt Pf 2 drop INTRAOCULA Q12HR MDD 2 gtts 05/22/1606/07/17 History Eye Drops] Empagliflozin [Jardiance] 25 mg PO DAILY MDD 25mg 05/22/16 06/12/17 06/07/17 History B12/Levomefolate Calcium/B-6 1 tab PO DAILY #30 tablet 08/26/16 06/12/17 Rx [Foltx Tablet] Lisinopril [Zestril TAB] 40 mg PO QDAY #30 tablet 08/26/16 06/12/17 06/07/17 Rx Pregabalin [Lyrica] 100 mg PO DAILY #60 capsule 08/26/16 06/12/17 06/07/17 Rx Dabigatran [Pradaxa] 75 mg PO BID MDD 75mg 01/24/17 06/12/17 06/07/17 History Acetaminophen [Acetaminophen TAB] 650 mg PO Q4H PRN #30 tablet 02/02/1704/30/17 23:00 Rx 650mg Clopidogrel [Plavix] 75 mg PO QDAY tablet 05/26/17 06/12/17 06/07/17 Rx Metoprolol Xl [Metoprolol 50 mg PO QDAY tablet 05/26/17 06/12/17 06/07/17 Rx SUCCINATE ER TAB] HYDROcodone/APAP 5-325 [[place] 2 each PO Q6H PRN #30 tablet 06/08/17 06/12/17 Unknown Rx 5-325 mg TAB] Ascorbic Acid [Vitamin C] 500 mg PO BID 06/12/17 06/12/17 Unknown History Cephalexin [Keflex] 500 mg PO QDAY 06/12/17 06/12/17 Unknown History Insulin Aspart Prot/Aspart(Nf) See Protocol SC QDAY 06/12/17 06/12/17 Unknown History [NovoLOG Mix 70/30 VIAL] Nitroglycerin [Nitrostat] 0.4 mg PO PRN PRN 06/12/17 06/12/17 Unknown History Polyethylene Glycol 3350 [Miralax 17 gm PO QDAY PRN 06/12/17 06/12/17 Unknown History 3350] Zinc Sulfate [Zinc Sulfate] 220 mg PO QDAY 06/12/17 06/12/17 Unknown History Active Meds: Active Medications Acetaminophen (Tylenol) 650 mg ND Q4H PRN PRN Reason: Pain, Mild (1-3) Acetaminophen (Tylenol) 650 mg PO Q4H PRN PRN Reason: For Pain/Fever/Headache Vancomycin HCl 1,500 mg/ (Sodium Chloride) 530 mls @ 333.333 mls/hr IV Q24H MARQUEZ Ceftriaxone Sodium (Rocephin/Ns 1 Gm/50 Ml) 1 gm in 50 mls @ 100 mls/hr IV Q24HR MARQUEZ PRN Reason: Protocol Sodium Chloride (Nacl 0.9% 1000 Ml) 1,000 mls @ 75 mls/hr IV DIRECT MARQUEZ Stop: 06/13/17 12:19 Last Admin: 06/12/17 22:53 Dose: 75 mls/hr Norepinephrine (Levophed Drip 4 Mg/Ns 250 Ml) 4 mg in 250 mls @ 7.5 mls/hr IV TITR MARQUEZ; 2 MCG/MIN PRN Reason: Protocol Last Titration: 06/13/17 07:11 Dose: Infused Ondansetron HCl (Zofran) 4 mg IV Q6H PRN PRN Reason: Nausea And Vomiting Vancomycin HCl (Vancomycin Pharmacy To Dose) 1 each IV PKCONSULT MARQUEZ PRN Reason: Protocol Review of Systems All systems: negative Exam - Constitutional Vitals: Temp Pulse Resp BP Pulse Ox 99.1 F 124 H 21 128/50 80 L 06/13/17 09:46 06/13/17 11:15 06/13/17 11:15 06/13/17 11:15 06/13/17 11:00 General appearance: Present: no acute distress - EENT Eyes: Present: PERRL, EOM intact ENT: hearing intact - Neck Neck: Present: supple, normal ROM - Respiratory Respiratory effort: normal Respiratory: bilateral: CTA - Cardiovascular Rhythm: regular Heart Sounds: Present: S1 & S2 Results - Labs CBC & Chem 7: 06/13/17 05:20 06/12/17 18:17 Labs: Abnormal lab results 06/13/17 06/13/17 06/13/17 Range/Units 00:18 05:20 10:28 Hgb 6.3 L 7.1 L (11.8-15.2) gm/dl Hct 19.6 L* 22.1 L (35.5-45.6) % POC Glucose 289 H (70-105) - Imaging and Cardiology Chest x-ray: image reviewed (clear CXR) Assessment and Plan 76 y/o male with acute blood loss anemia and hypotension, hemorrhagic shock vs septic shock. 1. Continue with blood transfusions. 2. H/H's q6 hours 3. Patient has lactic acidosis, likely from hypoperfusion, will order q6 hours at least x4 4. Continue IV abx therapy for now and follow up on blood cultures 5. Will given normal saline boluses as seen fit. Patient in no Respiratory distress, no signs of volume overload 6. Follow up vascular surgery recs 7. Will continue to follow, prognosis is guarded to poor. Patient is a DNR 8. Wean Vasopressor therapy for maps >65 CCT 31 minutes.
--- NOTE | 2017-06-13 11:58 | Consultation ---
History of Present Illness Consult date: 06/13/17 Consult reason: congestive heart failure, known to you History of present illness: This is a 76yr old male with a history of peripheral artery disease, status post recent multiple vascular surgeries. He has a history of coronary artery disease status post coronary bypass surgery several years ago, ischemic cardiomyopathy, hypertension, diabetes mellitus and hyperlipidemia. His most recent cardiac workup was done within the last month. He had a persantine stress thallium that reports fixed inferior and inferolateral wall defect consistent with prior MN but no reversible ischemia. Ejection fraction 40-45% on echocardiogram. He was sent from the custodial with bleeding from his left lower extremity wound. Found to be hypotensive, with a blood pressure in the 60s, and febrile to 102 rectally. Home medications shows pradaxa, plavix and aspirin therapy. Labs done in the ED shows a WBC 15.8, H&H 6.3/19.6, sodium of 127, creatinine of 1.6 and glucose of 487. Past History Past Medical History: other (PVD) Medications and Allergies Allergies Allergy/AdvReac Type Severity Reaction Status Date / Time bismuth subsalicylate Allergy Vomiting Verified 06/07/17 11:27 castor oil Allergy Vomiting Verified 06/07/17 11:27 oxycodone HCl [From Percocet] Allergy Dizziness Verified 06/07/17 11:27 meperidine HCl [From Demerol] AdvReac COMBATIVENE Verified 06/07/17 11:27 SS morphine AdvReac Unknown Verified 06/07/17 11:27 propoxyphene napsylate AdvReac Dizziness Verified 06/07/17 11:27 [From Darvocet-N] NARCOTICS AdvReac COMBATIVENE Uncoded 06/07/17 11:27 SS Home Medications Medication Instructions Recorded Confirmed Last Taken Type Dorzolamide/Timolol/Pf [Cosopt Pf 2 drop INTRAOCULA Q12HR MDD 2 gtts 05/22/1606/07/17 History Eye Drops] Empagliflozin [Jardiance] 25 mg PO DAILY MDD 25mg 05/22/16 06/12/17 06/07/17 History B12/Levomefolate Calcium/B-6 1 tab PO DAILY #30 tablet 08/26/16 06/12/17 Rx [Foltx Tablet] Lisinopril [Zestril TAB] 40 mg PO QDAY #30 tablet 08/26/16 06/12/17 06/07/17 Rx Pregabalin [Lyrica] 100 mg PO DAILY #60 capsule 08/26/16 06/12/17 06/07/17 Rx Dabigatran [Pradaxa] 75 mg PO BID MDD 75mg 01/24/17 06/12/17 06/07/17 History Acetaminophen [Acetaminophen TAB] 650 mg PO Q4H PRN #30 tablet 02/02/1704/30/17 23:00 Rx 650mg Clopidogrel [Plavix] 75 mg PO QDAY tablet 05/26/17 06/12/17 06/07/17 Rx Metoprolol Xl [Metoprolol 50 mg PO QDAY tablet 05/26/17 06/12/17 06/07/17 Rx SUCCINATE ER TAB] HYDROcodone/APAP 5-325 [[place] 2 each PO Q6H PRN #30 tablet 06/08/17 06/12/17 Unknown Rx 5-325 mg TAB] Ascorbic Acid [Vitamin C] 500 mg PO BID 06/12/17 06/12/17 Unknown History Cephalexin [Keflex] 500 mg PO QDAY 06/12/17 06/12/17 Unknown History Insulin Aspart Prot/Aspart(Nf) See Protocol SC QDAY 06/12/17 06/12/17 Unknown History [NovoLOG Mix 70/30 VIAL] Nitroglycerin [Nitrostat] 0.4 mg PO PRN PRN 06/12/17 06/12/17 Unknown History Polyethylene Glycol 3350 [Miralax 17 gm PO QDAY PRN 06/12/17 06/12/17 Unknown History 3350] Zinc Sulfate [Zinc Sulfate] 220 mg PO QDAY 06/12/17 06/12/17 Unknown History Active Meds: Active Medications Acetaminophen (Tylenol) 650 mg MT Q4H PRN PRN Reason: Pain, Mild (1-3) Acetaminophen (Tylenol) 650 mg PO Q4H PRN PRN Reason: For Pain/Fever/Headache Vancomycin HCl 1,500 mg/ (Sodium Chloride) 530 mls @ 333.333 mls/hr IV Q24H MARQUEZ Ceftriaxone Sodium (Rocephin/Ns 1 Gm/50 Ml) 1 gm in 50 mls @ 100 mls/hr IV Q24HR MARQUEZ PRN Reason: Protocol Sodium Chloride (Nacl 0.9% 1000 Ml) 1,000 mls @ 75 mls/hr IV DIRECT MARQUEZ Stop: 06/13/17 12:19 Last Admin: 06/12/17 22:53 Dose: 75 mls/hr Norepinephrine (Levophed Drip 4 Mg/Ns 250 Ml) 4 mg in 250 mls @ 7.5 mls/hr IV TITR MARQUEZ; 2 MCG/MIN PRN Reason: Protocol Last Titration: 06/13/17 07:11 Dose: Infused Ondansetron HCl (Zofran) 4 mg IV Q6H PRN PRN Reason: Nausea And Vomiting Vancomycin HCl (Vancomycin Pharmacy To Dose) 1 each IV PKCONSULT MARQUEZ PRN Reason: Protocol Physical Examination Vital Signs Temp 102 F H 06/12/17 18:30 General appearance: no acute distress Cardiac: Positive: Tachycardia (with frequent PVCs) Results 06/13/17 05:20 06/12/17 18:17 CBC 06/13/17 06/13/17 Range/Units 00:18 05:20 Hgb 6.3 L 7.1 L (11.8-15.2) gm/dl Hct 19.6 L* 22.1 L (35.5-45.6) % Assessment and Plan Sepsis -on pressor support Severe Anemia requiring blood transfusion Hyponatremia PVD/PAD status post recent multiple vascular surgeries Hx of CAD s/p CABG fixed inferior and inferolateral wall defect consistent with prior MN but no reversible ischemia on MPI 05/2017 Ischemic cardiomyopathy ejection fraction 40-45% on echocardiogram 05/2017 Hypertension Diabetes Hyperlipidemia
[2017-06-13] MEDS: LEVOPHED DRIP 4 MG/NS 250 ML 4 MG/250 ML BAG IV SCH ×2 (12:08→18:43)
[2017-06-13 12:56] LABS: Hematocrit 28.8 % (35.5-45.6); Hemoglobin 9.9 gm/dl (11.8-15.2)
--- NOTE | 2017-06-13 15:20 | Progress Note ---
Assessment and Plan Plan: We will take Mr. Ma to the OR tomorrow for washout of his left calf wound. The would appears distended, and there is likely further buildup of old blood products underneath. Evacuation will help protect the underlying bypass graft from infection. By tomorrow, further fluid resuscitation will have occurred and the effects of Pradaxa will be minimized. Subjective Date of service: 06/13/17 Interval history: Pt feeling somewhat better. Minimal pain. His left calf wound bloody output has significantly decreased. Hb has increased from 6.3 to 9.9 after 5U prBC. He does remain tachycardic in the 120s. UOP is satisfactory. The left calf remains distended and firm. Objective - Constitutional Vitals: Vital Signs - 12hr 06/13/17 06/13/17 06/13/17 03:20 03:30 03:40 Temperature Pulse Rate 122 H 122 H 121 H Respiratory 22 21 21 Rate Blood Pressure 114/46 105/48 106/50 O2 Sat by Pulse 100 100 Oximetry 06/13/17 06/13/17 06/13/17 03:43 03:50 04:00 Temperature 99.1 F Pulse Rate 121 H 120 H 120 H Respiratory 20 22 Rate Blood Pressure 117/46 122/51 O2 Sat by Pulse 100 Oximetry 06/13/17 06/13/17 06/13/17 04:10 04:20 04:30 Temperature Pulse Rate 121 H 124 H 123 H Respiratory 24 19 18 Rate Blood Pressure 117/45 137/59 127/55 O2 Sat by Pulse 100 100 Oximetry 06/13/17 06/13/17 06/13/17 04:40 05:00 05:07 Temperature 99.1 F Pulse Rate 123 H 123 H Respiratory 23 22 Rate Blood Pressure 116/56 129/50 O2 Sat by Pulse 83 L 100 Oximetry 06/13/17 06/13/17 06/13/17 05:15 05:30 05:45 Temperature Pulse Rate 123 H 122 H 123 H Respiratory Rate Blood Pressure 129/59 121/56 109/53 O2 Sat by Pulse 100 100 100 Oximetry 06/13/17 06/13/17 06/13/17 06:00 06:05 06:10 Temperature Pulse Rate 108 H 103 H 120 H Respiratory Rate Blood Pressure 79/42 81/40 119/56 O2 Sat by Pulse 100 100 98 Oximetry 06/13/17 06/13/17 06/13/17 06:14 06:15 06:20 Temperature 99.5 F Pulse Rate 111 H 123 H Respiratory 20 Rate Blood Pressure 99/42 125/55 O2 Sat by Pulse 73 L 100 Oximetry 06/13/17 06/13/17 06/13/17 06:25 06:30 06:36 Temperature Pulse Rate 126 H 127 H 126 H Respiratory 21 22 20 Rate Blood Pressure 131/63 132/59 142/57 O2 Sat by Pulse 100 92 Oximetry 06/13/17 06/13/17 06/13/17 06:40 06:46 06:50 Temperature Pulse Rate 124 H 126 H 124 H Respiratory 25 H 21 22 Rate Blood Pressure 142/57 130/70 134/66 O2 Sat by Pulse 75 L Oximetry 06/13/17 06/13/17 06/13/17 06:56 07:00 07:16 Temperature Pulse Rate 124 H 127 H 125 H Respiratory 22 19 16 Rate Blood Pressure 131/57 134/53 136/71 O2 Sat by Pulse Oximetry 06/13/17 06/13/17 06/13/17 07:18 07:30 07:45 Temperature 99.1 F Pulse Rate 132 H 131 H Respiratory 17 20 Rate Blood Pressure 135/57 117/62 O2 Sat by Pulse Oximetry 06/13/17 06/13/17 06/13/17 08:00 08:15 08:21 Temperature 99.1 F Pulse Rate 127 H 126 H Respiratory 18 26 H Rate Blood Pressure 110/50 108/51 O2 Sat by Pulse 99 98 Oximetry 06/13/17 06/13/17 06/13/17 08:30 08:45 09:00 Temperature Pulse Rate 127 H 125 H 125 H Respiratory 27 H 25 H 12 Rate Blood Pressure 118/44 126/46 126/52 O2 Sat by Pulse 78 L Oximetry 06/13/17 06/13/17 06/13/17 09:16 09:30 09:45 Temperature 99.1 F Pulse Rate 126 H 129 H 130 H Respiratory 20 32 H 28 H Rate Blood Pressure 113/53 119/45 109/39 O2 Sat by Pulse 94 99 63 L Oximetry 06/13/17 06/13/17 06/13/17 09:46 10:00 10:43 Temperature 99.1 F Pulse Rate 122 H 126 H Respiratory 25 H Rate Blood Pressure O2 Sat by Pulse Oximetry 06/13/17 06/13/17 06/13/17 10:46 11:00 11:15 Temperature Pulse Rate 129 H 128 H 124 H Respiratory 21 22 21 Rate Blood Pressure 117/51 136/41 128/50 O2 Sat by Pulse 36 L 80 L Oximetry 06/13/17 06/13/17 06/13/17 11:30 11:45 12:00 Temperature Pulse Rate 125 H 121 H 128 H Respiratory 22 20 21 Rate Blood Pressure 137/47 107/44 107/44 O2 Sat by Pulse Oximetry 06/13/17 12:15 Temperature Pulse Rate 126 H Respiratory 20 Rate Blood Pressure 119/65 O2 Sat by Pulse Oximetry General appearance: Present: mild distress (left calf wound partially open, with saturated gauze inside. No active discharge or bleeding at this time. The left calf is distended and firm, but nontender.) - EENT ENT: hearing intact - Labs CBC & Chem 7: 06/13/17 12:00 06/12/17 18:17 Labs: Abnormal lab results 06/13/17 06/13/17 06/13/17 Range/Units 00:18 05:20 10:28 Hgb 6.3 L 7.1 L (11.8-15.2) gm/dl Hct 19.6 L* 22.1 L (35.5-45.6) % POC Glucose 289 H (70-105) 06/13/17 Range/Units 12:00 Hgb 9.9 L (11.8-15.2) gm/dl Hct 28.8 L D (35.5-45.6) % POC Glucose (70-105)
--- NOTE | 2017-06-13 15:39 | Progress Note ---
Assessment and Plan Assessment and plan: Patient is a 76 year old male with hx of PAD, S/P multiple vascular surgeries including a partial foot amputation on the left wound VAC and anemia. Patient also has history of CAD CABG more than many years ago, ischemic cardiomyopathy hypertension diabetes hyperlipidemia with last known ejection fraction of 40-45 % Presents to fdc with hypotension, fever. With no improvement despite multiple fluid suspicion was placed on pressors in the ER, admitted to the hospital. * Septic shock w/possible hemorrhagic shock * Acute blood loss anemia * Uncontrolled diabetes mellitus * CAD s/p CABG * Tacycardia with PVC * Diabetic wound * S/P Partial foot amputation- Left * S/P wound vac to left medical surgical laceration site * Severe PAD PLAN * Continue supportive care, discussed with order to delivery supervisor, Vascular surgery, ED and patients family * S/P 5 units PRBC, Monitor h/h, Transfuse as needed * Repeat Stat Lactate, * Continue IV abx, wound cultures, blood cultures, ID consult * Follow up recs from vascular surgery * Wound care consult when ok With Vascular * Cardiology consult and monitor Electrolytes * Accucheck, AC/HS * Discussed extensively with family and Patient- He is a DNR/DNI * Patient is normally followed by Dr Kim, will reach out to him. * DVT/GI prophy The high probability of a clinically significant, sudden or life threatening deterioration of the [VASCULAR] system(s) required my full and direct attention , intervention and personal management. The aggregate critical care time was [35 ] minutes. This time is in addition to time spent performing reported procedures but includes the following: [X] Data Review and interpretation [X] Patient assessment and monitoring of vital signs [X] Documentation [X] Medication orders and management History Interval history: Patient seen and examined in the ER in mild distress with tachycardia and no shortness of breath noted no chest pain. Acute blood loss from surgical site. Saturated. Hospitalist Physical - Physical exam Narrative exam: VITAL SIGNS: Reviewed. GENERAL: The patient appeared well nourished and normally developed. Vital signs as documented. HEAD: No signs of head trauma. EYES: Pupils are equal. Extraocular motions intact. EARS: Hearing grossly intact. MOUTH: Oropharynx is normal. NECK: No adenopathy, no JVD. CHEST: Chest with clear breath sounds bilaterally. No wheezes, rales, or rhonchi. CARDIAC: Tachycardia. S1 and S2, without murmurs, gallops, or rubs. VASCULAR: diminshed pulses left lower ext ABDOMEN: Soft, without detectable tenderness. No sign of distention. No rebound or guarding, and no masses palpated. Bowel Sounds normal. MUSCULOSKELETAL: Good range of motion of all major joints. partial foot amputation left foot NEUROLOGIC EXAM: Alert and oriented x 3. No focal sensory or strength deficits. Speech normal. Follows commands. PSYCHIATRIC: Mood normal. SKIN: open incision left medial foot. - Constitutional Vitals: Temp Pulse Resp BP Pulse Ox 99.1 F 126 H 20 119/65 80 L 06/13/17 09:46 06/13/17 12:15 06/13/17 12:15 06/13/17 12:15 06/13/17 11:00 General appearance: Present: mild distress (left calf wound partially open, with saturated gauze inside. No active discharge or bleeding at this time. The left calf is distended and firm, but nontender.) Results - Labs CBC & Chem 7: 06/13/17 12:00 06/12/17 18:17 Labs: Laboratory Last Values WBC 15.8 K/mm3 (4.5-11.0) H 06/12/17 18:17 RBC 2.63 M/mm3 (3.65-5.03) L 06/12/17 18:17 Hgb 9.9 gm/dl (11.8-15.2) L 06/13/17 12:00 Hct 28.8 % (35.5-45.6) L D 06/13/17 12:00 MCV 92 fl (84-94) 06/12/17 18:17 MCH 29 pg (28-32) 06/12/17 18:17 MCHC 32 % (32-34) 06/12/17 18:17 RDW 16.4 % (13.2-15.2) H 06/12/17 18:17 Plt Count 263 K/mm3 (140-440) 06/12/17 18:17 Lymph % (Auto) 18.1 % (13.4-35.0) 06/12/17 18:17 [place] % (Auto) 15.3 % (0.0-7.3) H 06/12/17 18:17 Eos % (Auto) 1.2 % (0.0-4.3) 06/12/17 18:17 Baso % (Auto) 0.3 % (0.0-1.8) 06/12/17 18:17 Lymph # 2.9 K/mm3 (1.2-5.4) 06/12/17 18:17 [place] # 2.4 K/mm3 (0.0-0.8) H 06/12/17 18:17 Eos # 0.2 K/mm3 (0.0-0.4) 06/12/17 18:17 Baso # 0.1 K/mm3 (0.0-0.1) 06/12/17 18:17 Seg Neutrophils % 65.1 % (40.0-70.0) 06/12/17 18:17 Seg Neutrophils # 10.3 K/mm3 (1.8-7.7) H 06/12/17 18:17 PT 14.9 Sec. (12.2-14.9) 06/12/17 18:17 INR 1.18 (0.87-1.13) H 06/12/17 18:17 VBG pH 7.325 (7.320-7.420) 06/12/17 18:17 Sodium 127 mmol/L (137-145) L D 06/12/17 18:17 Potassium 4.3 mmol/L (3.6-5.0) 06/12/17 18:17 Chloride 87.4 mmol/L (98-107) L 06/12/17 18:17 Carbon Dioxide 22 mmol/L (22-30) 06/12/17 18:17 Anion Gap 22 mmol/L 06/12/17 18:17 BUN 34 mg/dL (9-20) H 06/12/17 18:17 Creatinine 1.6 mg/dL (0.8-1.5) H 06/12/17 18:17 Estimated GFR 51 ml/min 06/12/17 18:17 BUN/Creatinine Ratio 21.25 % 06/12/17 18:17 Glucose 487 mg/dL (75-100) H 06/12/17 18:17 POC Glucose 289 (70-105) H 06/13/17 10:28 Lactic Acid 3.70 mmol/L (0.7-2.0) H* 06/12/17 18:17 Calcium 8.1 mg/dL (8.4-10.2) L 06/12/17 18:17 Total Bilirubin 0.40 mg/dL (0.1-1.2) 06/12/17 18:17 AST 23 units/L (5-40) 06/12/17 18:17 ALT 17 units/L (7-56) 06/12/17 18:17 Alkaline Phosphatase 71 units/L (35-129) 06/12/17 18:17 Total Protein 5.8 g/dL (6.3-8.2) L 06/12/17 18:17 Albumin 2.3 g/dL (3.9-5) L 06/12/17 18:17 Albumin/Globulin Ratio 0.7 % 06/12/17 18:17 Urine Color Yellow (Yellow) 06/12/17 19:11 Urine Turbidity Clear (Clear) 06/12/17 19:11 Urine pH 6.0 (5.0-7.0) 06/12/17 19:11 Ur Specific [place] 1.020 (1.003-1.030) 06/12/17 19:11 Urine Protein <15 mg/dl mg/dL (Negative) 06/12/17 19:11 Urine Glucose (UA) >=500 mg/dL (Negative) 06/12/17 19:11 Urine Ketones Neg mg/dL (Negative) 06/12/17 19:11 Urine Blood Neg (Negative) 06/12/17 19:11 Urine Nitrite Neg (Negative) 06/12/17 19:11 Urine Bilirubin Neg (Negative) 06/12/17 19:11 Urine Urobilinogen 2.0 mg/dL (<2.0) 06/12/17 19:11 Ur Leukocyte Esterase Neg (Negative) 06/12/17 19:11 Urine WBC (Auto) 2.0 /HPF (0.0-6.0) 06/12/17 19:11 Urine RBC (Auto) 1.0 /HPF (0.0-6.0) 06/12/17 19:11 Blood Type B POSITIVE 06/12/17 18:01 Antibody Screen TNR 06/12/17 18:01 MI Antibody Screen Negative 06/12/17 18:01 Crossmatch See Detail 06/12/17 18:01 - Imaging and Cardiology Chest x-ray: image reviewed (no acute findings)
[2017-06-13] MEDS ORDERED: NOVOLOG SUB-Q SCH (16:30)
[2017-06-13 17:24] LABS: Hematocrit 27.8 % (35.5-45.6); Hemoglobin 9.3 gm/dl (11.8-15.2)
--- NOTE | 2017-06-13 17:45 | Consultation ---
History of Present Illness - Reason for Consult Consult date: 06/13/17 Left Lower Extremity Bleeding - History of Present Illness This patient is a 76-year-old -[place] male that was admitted via the emergency room on 06/12/2017 due to hypotension with concerns for sepsis. He is well-known to our service, with and status post multiple procedures due to an ischemic left lower extremity. He recently presented to our office in rest pain with a nonhealing ulceration to his left foot. He was hospitalized, and subsequently taken to the operating room for revascularization. On 01/15/2017 a left femoral endarterectomy with bovine pericardial patch angioplasty was performed. He was bypassed from this area to his posterior tibial artery using a in situ left greater saphenous vein graft. Balloon angioplasty and stent placement of his left external iliac artery was performed using an 8 x 10 viabahn stent graft. The bypass subsequently thrombosed, and was successfully thrombectomized. He has had subsequent wound debridements, and ultimately required an open left transmetatarsal amputation. His wounds were debrided last Sunday as an outpatient, and an intraoperative wound VAC was placed. He was discharged from the hospital to his long term facility. His family states at the SNF, the wound vac alarmed, and the nursing staff was unable to correct the malfunction. They subsequently silenced the alarmed. The wound VAC was apparently left in place. By 06/12/2017 he was hypotensive with some drainage from the VAC dressing, therefore he was sent to the emergency room. A vascular surgery consult has been requested to further evaluate. Past History Past Medical History: arthritis, CAD, diabetes, DVT (following knee surgery), hypertension, hyperlipidemia, PVD, other (glaucoma) Past Surgical History: CABG, PTCA, Other (Left hip fracture; right shoulder surgery; left knee arthroplasty; a left femoral endarterectomy with bovine pericardial patch angioplasty was performed. He was bypassed from this area to his posterior tibial artery using a in situ left greater saphenous vein graft. Balloon angioplasty and stent placement of his left external iliac artery was performed using an 8 x 10 viabahn stent graft; Ultrasound-guided access right common femoral artery, angiography, percutaneous mechanical thrombectomy of left femoral artery to posterior tibial artery bypass graft with a CAT 5 Penumbra Indigo catheter and AngioJet, percutaneous mechanical thrombectomy of the left posterior tibial artery, angioplasty left posterior tibial artery with a 3 x 1 20 balloon, angioplasty of the left femoral artery to posterior tibial artery using a 5 x 200 balloon, right femoral arteriotomy closure with an Angio- Seal; left open transmetatarsal amputation; evacuation left groin hematoma with excisional debridement of skin and muscle and soft tissue, sartorius flap coverage of the left M pop bypass, wound VAC placement of the left groin, I&D of the left calf hematoma with wound VAC placement;) Social history: Lives alone, other (retired [employer]). denies: smoking ( quit smoking in the 80s) Family history: no significant family history Medications and Allergies Allergies Allergy/AdvReac Type Severity Reaction Status Date / Time bismuth subsalicylate Allergy Vomiting Verified 06/07/17 11:27 castor oil Allergy Vomiting Verified 06/07/17 11:27 oxycodone HCl [From Percocet] Allergy Dizziness Verified 06/07/17 11:27 meperidine HCl [From Demerol] AdvReac COMBATIVENE Verified 06/07/17 11:27 SS morphine AdvReac Unknown Verified 06/07/17 11:27 propoxyphene napsylate AdvReac Dizziness Verified 06/07/17 11:27 [From Darvocet-N] NARCOTICS AdvReac COMBATIVENE Uncoded 06/07/17 11:27 SS Home Medications Medication Instructions Recorded Confirmed Last Taken Type Dorzolamide/Timolol/Pf [Cosopt Pf 2 drop INTRAOCULA Q12HR MDD 2 gtts 05/22/1606/07/17 History Eye Drops] Empagliflozin [Jardiance] 25 mg PO DAILY MDD 25mg 05/22/16 06/12/17 06/07/17 History B12/Levomefolate Calcium/B-6 1 tab PO DAILY #30 tablet 08/26/16 06/12/17 Rx [Foltx Tablet] Lisinopril [Zestril TAB] 40 mg PO QDAY #30 tablet 08/26/16 06/12/17 06/07/17 Rx Pregabalin [Lyrica] 100 mg PO DAILY #60 capsule 08/26/16 06/12/17 06/07/17 Rx Dabigatran [Pradaxa] 75 mg PO BID MDD 75mg 01/24/17 06/12/17 06/07/17 History Acetaminophen [Acetaminophen TAB] 650 mg PO Q4H PRN #30 tablet 02/02/1704/30/17 23:00 Rx 650mg Clopidogrel [Plavix] 75 mg PO QDAY tablet 05/26/17 06/12/17 06/07/17 Rx Metoprolol Xl [Metoprolol 50 mg PO QDAY tablet 05/26/17 06/12/17 06/07/17 Rx SUCCINATE ER TAB] HYDROcodone/APAP 5-325 [[place] 2 each PO Q6H PRN #30 tablet 06/08/17 06/12/17 Unknown Rx 5-325 mg TAB] Ascorbic Acid [Vitamin C] 500 mg PO BID 06/12/17 06/12/17 Unknown History Cephalexin [Keflex] 500 mg PO QDAY 06/12/17 06/12/17 Unknown History Insulin Aspart Prot/Aspart(Nf) See Protocol SC QDAY 06/12/17 06/12/17 Unknown History [NovoLOG Mix 70/30 VIAL] Nitroglycerin [Nitrostat] 0.4 mg PO PRN PRN 06/12/17 06/12/17 Unknown History Polyethylene Glycol 3350 [Miralax 17 gm PO QDAY PRN 06/12/17 06/12/17 Unknown History 3350] Zinc Sulfate [Zinc Sulfate] 220 mg PO QDAY 06/12/17 06/12/17 Unknown History Active Meds: Active Medications Acetaminophen (Tylenol) 650 mg VA Q4H PRN PRN Reason: Pain, Mild (1-3) Acetaminophen (Tylenol) 650 mg PO Q4H PRN PRN Reason: For Pain/Fever/Headache Acetaminophen/Hydrocodone Bitart ([place] 5/325) 2 each PO Q6H PRN PRN Reason: Pain, Moderate (4-6) Vancomycin HCl 1,500 mg/ (Sodium Chloride) 530 mls @ 333.333 mls/hr IV Q24H MARQUEZ Ceftriaxone Sodium (Rocephin/Ns 1 Gm/50 Ml) 1 gm in 50 mls @ 100 mls/hr IV Q24HR MARQUEZ PRN Reason: Protocol Last Admin: 06/13/17 10:00 Dose: Not Given Norepinephrine (Levophed Drip 4 Mg/Ns 250 Ml) 4 mg in 250 mls @ 7.5 mls/hr IV TITR MARQUEZ; 2 MCG/MIN PRN Reason: Protocol Last Admin: 06/13/17 12:08 Dose: 2.66 mcg/min, 10 mls/hr Insulin Human Regular (Novolin R) 0 units SUB-Q Q4HR MARQUEZ PRN Reason: Protocol Ondansetron HCl (Zofran) 4 mg IV Q6H PRN PRN Reason: Nausea And Vomiting Vancomycin HCl (Vancomycin Pharmacy To Dose) 1 each IV PKCONSULT MARQUEZ PRN Reason: Protocol Review of Systems ROS unobtainable: due to mental status Exam - Constitutional Vitals: Temp Pulse Resp BP Pulse Ox 99.1 F 126 H 20 119/65 80 L 06/13/17 09:46 06/13/17 12:15 06/13/17 12:15 06/13/17 12:15 06/13/17 11:00 General appearance: Present: no acute distress - EENT Eyes: Present: EOM intact ENT: hearing intact - Neck Neck: Present: supple - Respiratory Respiratory effort: normal (unlabored at rest on nasal cannula oxygen supplementation) - Extremities Extremities: no ischemia, normal temperature, abnormal (palpable pulse in his left lower extremity bypass) Extremity abnormal: other (I removed the wound VAC from his left groin left calf and distal transmetatarsal amputation site. There is no definitive active bleeding. There was minimal dark ooze from the calf wound. The groin wound base was red granulation tissue with approximately 40% fibrinous slough, his calf wound and expose muscle with dark staining from the recent evacuated hematoma, clean with bright red granulation tissue.) - Psychiatric Psychiatric: no appropriate mood/affect, no intact judgment & insight, cooperative - Neurologic Neurologic: no focal deficits Results - Labs CBC & Chem 7: 06/13/17 Unknown 06/12/17 18:17 Labs: Abnormal lab results 06/13/17 06/13/17 06/13/17 Range/Units 00:18 05:20 10:28 Hgb 6.3 L 7.1 L (11.8-15.2) gm/dl Hct 19.6 L* 22.1 L (35.5-45.6) % POC Glucose 289 H (70-105) 06/13/17 06/13/17 06/13/17 Range/Units 12:00 16:20 Unknown Hgb 9.9 L 9.3 L (11.8-15.2) gm/dl Hct 28.8 L D 27.8 L (35.5-45.6) % POC Glucose 292 H (70-105) Assessment and Plan The patient was admitted via the emergency room due to hypotension. He was subsequently transferred to the critical care unit with concerns of possible sepsis and acute blood loss anemia. This patient is well-known to our service status post multiple recent procedures due to an ischemic left lower extremity. His wounds were debrided last Sunday, and an intraoperative wound VAC was placed. Post-operatively he was discharged back to his long term facility. His wound VAC apparently malfunction. Unfortunately, it was neither corrected nor removed. It remained in place for several days. He was subsequently sent to the emergency room for further evaluation. During the night the pt was noted to have significant bleeding from the vac site. It was removed partially at that time. A Vascular surgery consult was placed. The patient was evaluated early this am in the ER, his wound VAC was removed completely. There was no significant bleeding at that time. He was subsequently transferred to the CCU. He continued to have a slow ooze of dark blood, with moderate swelling of his medial calf. He has received a total of 5 units of PRBC. His Hemaglobin has increased from 6.3 to 9.9. The pt has a h/o dvt following a knee surgery and was on Pradaxa. I called his SNF, this was last given yesterday morning. Continue supportive care and resuscitation of the pt. We will make the pt NPO after mn for calf wound exploration tomorrow. Would allow an additional day for the Pradaxa to wear off. This was discussed with the pt's daughter at the bedside. - Patient Problems (1) Atherosclerosis of [place] arteries of the extremities with gangrene Current Visit: Yes Status: Acute Qualifiers: Peripheral atherosclerosis location: P Laterality: L (2) Acute blood loss anemia Current Visit: Yes Status: Acute (3) Hypotension Current Visit: Yes Status: Acute Qualifiers: Hypotension type: H Trimester: T (4) Postoperative hemorrhage Current Visit: Yes Status: Acute Qualifiers: Surgical complication system/body Area: S Procedure type: P Laterality: L (5) CAD (coronary artery disease) Current Visit: No Status: Chronic Qualifiers: Coronary Disease-Associated Artery/Lesion type: [place] artery [place] vs. transplanted heart: N Associated angina: without angina (6) Type 2 diabetes mellitus Onset Date: 07/13/16 Current Visit: No Status: Chronic Qualifiers: Diabetes mellitus complication status: with neurologic complications Diabetes mellitus complication detail: with autonomic neuropathy Diabetic retinopathy severity: D Proliferative retinopathy type: P Diabetes mellitus macular edema: D Diabetes mellitus meterman insulin use: with meterman use Laterality: L Chronic kidney disease stage: C Qualified Code(s): E11.43 - Type 2 diabetes mellitus with diabetic autonomic (poly)neuropathy; Z79.4 - meterman (current) use of insulin
[2017-06-13 19:13] LABS: Hematocrit 26.5 % (35.5-45.6); Hemoglobin 8.8 gm/dl (11.8-15.2)
[2017-06-13] MEDS ORDERED: VANCOMYCIN 1,500 MG in NACL 0.9% 500 ML 500 ML IV SCH (19:30)
[2017-06-14 00:34] LABS: Hematocrit 25.7 % (35.5-45.6); Hemoglobin 8.5 gm/dl (11.8-15.2)
[2017-06-14] MEDS: LEVOPHED DRIP 4 MG/NS 250 ML 4 MG/250 ML BAG IV SCH (01:28)
[2017-06-14 04:54] LABS: Hematocrit 25.1 % (35.5-45.6); Hemoglobin 8.2 gm/dl (11.8-15.2)
[2017-06-14 08:03] LABS: Hemoglobin 8.1 gm/dl (11.8-15.2); Mean Corpuscular HGB Conc 33 % (32-34); Mean Corpuscular Hemoglobin 29 pg (28-32); Mean Corpuscular Volume 90 fl (84-94); Platelet Count 154 K/mm3 (140-440); Red Blood Count 2.77 M/mm3 (3.65-5.03); Red Cell Distribution Width 15.7 % (13.2-15.2); White Blood Count 12.2 K/mm3 (4.5-11.0)
[2017-06-14 08:19] LABS: INR 1.28 (0.87-1.13); Partial Thromboplastin Time 30.6 Sec. (24.2-36.6)
[2017-06-14 08:22] LABS: Alanine Aminotransferase 21 units/L (7-56); Albumin/Globulin Ratio 0.6 %; Alkaline Phosphatase 55 units/L (35-129); BUN/Creatinine Ratio 20.83; Blood Urea Nitrogen 25 mg/dL (9-20); Carbon Dioxide 15 mmol/L (22-30); Chloride 110.2 mmol/L (98-107); Glucose 185 mg/dL (75-100); Potassium 4.6 mmol/L (3.6-5.0); Total Protein 5.1 g/dL (6.3-8.2)
[2017-06-14 08:31] LABS: Anion Gap 25 mmol/L; Sodium 146 mmol/L (137-145)
[2017-06-14] MEDS ORDERED: DIPRIVAN 10 MG/ML IV ONE ×3 (10:50→14:10)
[2017-06-14] MEDS ORDERED: VERSED ONE ×2 (10:50→18:51)
[2017-06-14] MEDS ORDERED: XYLOCAINE MPF 2% ONE ×2 (10:52→18:25)
[2017-06-14] MEDS ORDERED: NACL 0.9% IR ONE (11:50)
[2017-06-14] MEDS ORDERED: ZOFRAN ONE (12:03)
[2017-06-14] MEDS ORDERED: AMIDATE IV ONE (12:03)
[2017-06-14] MEDS ORDERED: NACL 0.9% 500 ML 500 ML IV ONE (12:42)
[2017-06-14] MEDS ORDERED: NEO SYNEPHRINE ONE ×4 (13:00→16:05)
[2017-06-14] MEDS ORDERED: NACL 0.9% 100 ML ONE ×2 (13:00→14:24)
[2017-06-14] MEDS ORDERED: HEPARIN 10,000 UNITS/10 ML 2,000 UNIT in NACL 0.9% 500 ML 500 ML IR ONE (13:00)
[2017-06-14] MEDS ORDERED: NACL 0.9% 1000 ML 1,000 ML ONE ×2 (13:00→19:44)
[2017-06-14] MEDS ORDERED: HEPARIN ONE (13:17)
[2017-06-14] MEDS ORDERED: NACL 0.9% 500 ML 500 ML ONE (13:19)
[2017-06-14] MEDS ORDERED: HEPARIN 10,000 UNITS/10 ML ONE ×2 (13:19→14:57)
--- NOTE | 2017-06-14 13:26 | Progress Note ---
Assessment and Plan 76 y/o male with acute blood loss anemia and hypotension, hemorrhagic shock vs septic shock. 1. Asked nursing to have at least 3 more units ready if need for transfusion. 2. H/H's q6 hours, would continue even post-op. 3. Lactic acid now is normal 4. Will stop abx therapy for now. Pending on calf wound, will discuss with surgery if they feel therapy is needed. 5. Shock is most likely from bleeding as he has responded to volume, continue to wean pressors 6. Follow up vascular surgery recs, post-op 7. Will continue to follow, prognosis is guarded to poor. Patient is a DNR 8. Wean Vasopressor therapy for maps >65 CCT 31 minutes. Subjective Date of service: 06/14/17 Interval history: No acute events. Still with some bleeding as he has been given a total of 5 units of PRBC's and H/H is only in the 8 range. Taken to or for exploration of calf. Objective - Constitutional Vitals: Vital Signs - 12hr 06/14/17 06/14/17 06/14/17 01:30 01:41 01:51 Temperature Pulse Rate 95 H 101 H 96 H Respiratory 18 23 21 Rate Blood Pressure 107/47 107/47 111/49 O2 Sat by Pulse 99 100 100 Oximetry 06/14/17 06/14/17 06/14/17 02:00 02:11 02:21 Temperature Pulse Rate 103 H 115 H 99 H Respiratory 21 20 20 Rate Blood Pressure 113/57 113/57 120/57 O2 Sat by Pulse 100 100 96 Oximetry 06/14/17 06/14/17 06/14/17 02:30 02:41 02:51 Temperature Pulse Rate 115 H 107 H Respiratory 23 23 Rate Blood Pressure 109/51 109/51 116/56 O2 Sat by Pulse 100 100 100 Oximetry 06/14/17 06/14/17 06/14/17 03:01 03:11 03:21 Temperature Pulse Rate 125 H 121 H 103 H Respiratory 19 17 20 Rate Blood Pressure 137/75 137/75 113/48 O2 Sat by Pulse 53 L 91 Oximetry 06/14/17 06/14/17 06/14/17 03:30 03:41 03:51 Temperature Pulse Rate 124 H 125 H 105 H Respiratory 20 19 19 Rate Blood Pressure 113/59 113/59 108/51 O2 Sat by Pulse 78 L 100 83 L Oximetry 06/14/17 06/14/17 06/14/17 04:00 04:11 04:21 Temperature Pulse Rate 95 H 113 H 118 H Respiratory 22 22 21 Rate Blood Pressure 108/49 108/49 105/51 O2 Sat by Pulse 100 100 100 Oximetry 06/14/17 06/14/17 06/14/17 04:30 04:41 04:51 Temperature Pulse Rate 126 H 126 H 126 H Respiratory 23 23 18 Rate Blood Pressure 112/52 112/52 110/50 O2 Sat by Pulse 96 98 Oximetry 06/14/17 06/14/17 06/14/17 05:00 05:11 05:20 Temperature Pulse Rate 124 H 125 H 123 H Respiratory 21 20 22 Rate Blood Pressure 105/50 105/50 110/53 O2 Sat by Pulse 100 100 97 Oximetry 06/14/17 06/14/17 06/14/17 05:30 05:41 05:51 Temperature Pulse Rate 124 H 124 H 125 H Respiratory 23 25 H 24 Rate Blood Pressure 104/53 110/53 106/50 O2 Sat by Pulse 100 Oximetry 06/14/17 06/14/17 06/14/17 06:00 06:11 06:21 Temperature Pulse Rate 125 H 123 H 111 H Respiratory 25 H 26 H 22 Rate Blood Pressure 113/54 113/54 109/54 O2 Sat by Pulse 68 L 98 48 L Oximetry 06/14/17 06/14/17 06/14/17 06:31 06:41 06:51 Temperature Pulse Rate 126 H 99 H 124 H Respiratory 21 23 21 Rate Blood Pressure 103/60 103/60 102/49 O2 Sat by Pulse 64 L 95 Oximetry 06/14/17 06/14/17 06/14/17 07:00 07:11 07:21 Temperature Pulse Rate 109 H 105 H 105 H Respiratory 21 22 22 Rate Blood Pressure 105/46 105/46 109/54 O2 Sat by Pulse 96 100 100 Oximetry 06/14/17 06/14/17 06/14/17 07:30 07:41 07:51 Temperature Pulse Rate 103 H 126 H 130 H Respiratory 20 21 19 Rate Blood Pressure 106/49 106/49 116/62 O2 Sat by Pulse 91 100 93 Oximetry 06/14/17 06/14/17 06/14/17 08:00 08:11 08:21 Temperature 98.6 F Pulse Rate 128 H 128 H 124 H Respiratory 20 24 22 Rate Blood Pressure 113/57 113/57 114/60 O2 Sat by Pulse 100 100 100 Oximetry 06/14/17 06/14/17 06/14/17 08:30 08:41 08:51 Temperature Pulse Rate 127 H 128 H 128 H Respiratory 20 23 21 Rate Blood Pressure 113/60 113/60 122/60 O2 Sat by Pulse 100 100 Oximetry 06/14/17 06/14/17 06/14/17 09:00 09:11 09:21 Temperature Pulse Rate 117 H 127 H 126 H Respiratory 20 16 21 Rate Blood Pressure 113/61 113/61 120/61 O2 Sat by Pulse 63 L Oximetry 06/14/17 09:30 Temperature Pulse Rate 128 H Respiratory 23 Rate Blood Pressure 113/66 O2 Sat by Pulse 100 Oximetry - Labs CBC & Chem 7: 06/14/17 07:42 06/14/17 07:42 Labs: Abnormal lab results 06/13/17 06/13/17 06/13/17 Range/Units 16:20 18:45 18:49 WBC (4.5-11.0) K/mm3 RBC (3.65-5.03) M/mm3 Hgb 8.8 L (11.8-15.2) gm/dl Hct 26.5 L (35.5-45.6) % RDW (13.2-15.2) % PT (12.2-14.9) Sec. INR (0.87-1.13) Sodium (137-145) mmol/L Chloride (98-107) mmol/L Carbon Dioxide (22-30) mmol/L BUN (9-20) mg/dL Glucose (75-100) mg/dL POC Glucose 292 H 252 H (70-105) Calcium (8.4-10.2) mg/dL Total Protein (6.3-8.2) g/dL Albumin (3.9-5) g/dL 06/13/17 06/13/17 06/14/17 Range/Units 21:13 Unknown 00:24 WBC (4.5-11.0) K/mm3 RBC (3.65-5.03) M/mm3 Hgb 9.3 L 8.5 L (11.8-15.2) gm/dl Hct 27.8 L 25.7 L (35.5-45.6) % RDW (13.2-15.2) % PT (12.2-14.9) Sec. INR (0.87-1.13) Sodium (137-145) mmol/L Chloride (98-107) mmol/L Carbon Dioxide (22-30) mmol/L BUN (9-20) mg/dL Glucose (75-100) mg/dL POC Glucose 234 H (70-105) Calcium (8.4-10.2) mg/dL Total Protein (6.3-8.2) g/dL Albumin (3.9-5) g/dL 06/14/17 06/14/17 06/14/17 Range/Units 01:53 04:44 05:49 WBC (4.5-11.0) K/mm3 RBC (3.65-5.03) M/mm3 Hgb 8.2 L (11.8-15.2) gm/dl Hct 25.1 L (35.5-45.6) % RDW (13.2-15.2) % PT (12.2-14.9) Sec. INR (0.87-1.13) Sodium (137-145) mmol/L Chloride (98-107) mmol/L Carbon Dioxide (22-30) mmol/L BUN (9-20) mg/dL Glucose (75-100) mg/dL POC Glucose 213 H 218 H (70-105) Calcium (8.4-10.2) mg/dL Total Protein (6.3-8.2) g/dL Albumin (3.9-5) g/dL 06/14/17 06/14/17 06/14/17 Range/Units 07:42 07:42 07:42 WBC 12.2 H (4.5-11.0) K/mm3 RBC 2.77 L (3.65-5.03) M/mm3 Hgb 8.1 L (11.8-15.2) gm/dl Hct 25.0 L (35.5-45.6) % RDW 15.7 H (13.2-15.2) % PT 15.9 H (12.2-14.9) Sec. INR 1.28 H (0.87-1.13) Sodium 146 H D (137-145) mmol/L Chloride 110.2 H (98-107) mmol/L Carbon Dioxide 15 L D (22-30) mmol/L BUN 25 H (9-20) mg/dL Glucose 185 H (75-100) mg/dL POC Glucose (70-105) Calcium 8.0 L (8.4-10.2) mg/dL Total Protein 5.1 L (6.3-8.2) g/dL Albumin 2.0 L (3.9-5) g/dL
[2017-06-14] MEDS ORDERED: DILAUDID IV PRN (13:27)
[2017-06-14] MEDS ORDERED: BREVIBLOC IV ONE (14:00)
[2017-06-14] MEDS ORDERED: PROAIR IH ONE (14:25)
[2017-06-14] MEDS ORDERED: ZEMURON IV ONE (16:01)
[2017-06-14 16:56] LABS: Hematocrit 32.8 % (35.5-45.6); Hemoglobin 10.9 gm/dl (11.8-15.2); Mean Corpuscular HGB Conc 33 % (32-34); Mean Corpuscular Hemoglobin 30 pg (28-32); Mean Corpuscular Volume 91 fl (84-94); Platelet Count 152 K/mm3 (140-440); Red Blood Count 3.61 M/mm3 (3.65-5.03); Red Cell Distribution Width 15.8 % (13.2-15.2)
[2017-06-14] MEDS ORDERED: ALBURX 25% (ALBUMIN) IV ONE (17:08)
[2017-06-14] MEDS ORDERED: MARCAINE 0.25% INFILTRATI ONE (17:48)
[2017-06-14] MEDS ORDERED: MARCAINE 0.5% 30 ML INFILTRATI ONE (17:49)
[2017-06-14] MEDS ORDERED: BLOXIVERZ ONE (18:04)
[2017-06-14] MEDS ORDERED: ROBINUL ONE (18:04)
[2017-06-14] MEDS ORDERED: MARCAINE 0.5% INFILTRATI ONE (18:13)
[2017-06-14] MEDS ORDERED: MORPHINE IV PRN ×2 (19:00)
[2017-06-14] MEDS ORDERED: NACL 0.9% 1000 ML 1,000 ML IV SCH (19:00)
[2017-06-14] MEDS ORDERED: NARCAN 0.4 MG/1 ML IV PRN (19:00)
--- NOTE | 2017-06-14 19:08 | Operative Report ---
Operative Report Operative Report: Date of procedure:06/14/2017 Pre-operative diagnosis: Infected hematoma left fem- tibial bypass incision ( calf), infected left groin incision, infected left TMA Post-operative diagnosis: Same with bypass graft pseudoaneurysm and disruption requiring sacrifice of the distal existing graft and replacement with new vein bypass graft Procedure name(s): left popliteal to distal posterior tibial artery bypass graft using reversed cephalic vein (right arm harvest), Reoperative surgery more than 1 month after the initial bypass, debridement of skin and soft tissue groin incision (8 x 3 x 4 cm), debridement of left TMA skin and soft tissue ( 8 x 2 x 1 cm), evacuation of hematoma left calf with debridement of skin and soft tissue (6 x 5 x 4 cm ) Surgeon: Td Burch MD Director Of Consumer Affairs: Aarti Garza DO Anesthesia: General EBL: 700 mL Specimen(s): Necrotic tissue sent for deep wound culture Complications: None Findings: Hematoma in the left calf was actually a pseudoaneurysm involving the vein bypass graft with an anterior wall disruption and evidence of perigraft infection, large hematoma noted in the popliteal fossa successfully evacuated but with foul-smelling drainage consistent with infection, marginal viability of the gastroc and soleus muscle, necrosis and purulent drainage in the left groin official to the sartorius muscle flap covering the femoral artery, necrotic tendon and eschar at the level of the open transmetatarsal requiring further debridement, small cephalic vein used for repeat bypass. Excellent Doppler signals in the posterior tibial artery distal to the anastomosis post revasc. Procedure: [Patient in the supine position after adequate levels of general anesthesia was obtained initially by LMA and subsequently by intubation patient' s left leg and groin were then prepped and draped using standard sterile technique. The existing packing and the cath was removed as well as that in the groin. Both incisions were briefly inspected and the necrotic fat necrosis in the groin was documented. Attention was then turned to the calf where there was a large hematoma which was gently removed. On dislodging the hematoma brisk arterial bleeding was noted coming from the anticipated area of the bypass graft. I immediately compressed the bypass graft in the thigh. One could feel it through the skin with immediate cessation of bleeding. This allowed for inspection of the area of the bypass graft was noted to have a significant hole in its anterior surface. The graft is inflamed and quite friable consistent with infection and arteritis. 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 At this point I continued maintaining control and bluntly dissected the bypass graft from the surrounding tissue like to place a clamp proximally. I then repaired the hole in the blood vessel using Prolene suture and then released the bypass graft. The bleeding was basically controlled however I felt that the long-term integrity of the vein was suspect and that he was at great risk of disruption with potentially catastrophic results. I used the ultrasound to identify the cephalic and basilic vein in his right arm after determining that there was no vein available in his left leg or his right leg for replacement of the bypass graft. We then used a 2 team approach to harvest the cephalic vein right arm. That vessel was small but satisfactory. I then made a counter incision just below the knee joint medially over the palpable bypass graft and dissected that vessel out and mobilized it down into the medial calf incision. I then made another incision in the distal and mid calf overlying the course of the posterior tibial artery dissected that vessel out in anticipation of a target site for bypass. The patient was then heparinized and the cephalic vein was removed from the arm and dilated. I passed graft was then ligated just above the repair and then further skeletonized of inflammatory tissue. Distal limb was spatulated as was the proximal end of the reversed saphenous vein in an end-to-end anastomosis was then created using 6-0 Prolene suture in running technique. Then created a subcutaneous tunnel posterior medial to the original calf incision and then attached the new bypass graft and withdrew it distally. There was considerable bleeding from the tunnel upon release of flow and I removed the bypass graft from the tunnel and found that the anastomosis had torn at the apex. The anastomosis was then taken down and repeated with good results. Then we tunneled the bypass graft into the distal incision and exposed the posterior tibial artery having controlled it with vessel loops. An arteriotomy was then made and a flow arrester (2.5 mm) was then used for vascular control. The vein was then spatulated and an end-to-side anastomosis was then created using 6-0 Prolene suture in running technique. Flow arrester was removed prior to completion suture line and flow was released into the retrograde posterior tibial artery followed by antegrade release to the ankle. Doppler signals were obtained. It was a venous injury that required some sutures to lyse the incision was hemostatic using FloSeal and Surgicel. Attention was then returned to the knee where the large hematoma was evacuated. Foul-smelling material was obtained and this was cultured. Groin was also dressed with removal of necrotic soft tissue fat and removal of a fair amount of retained foul-smelling fluid. Patient of the femoral artery area showed it to be well capsulated and covered with a sartorius flap and this was not violated. The muscle of the calf however was of marginal viability and there was some concern long-term this could be a source of infection. The forefoot was quite pink and had necrotic material which was sharply debrided and adequate bleeding was noted at the debridement edges. Once all the incisions were then irrigated using pulse lavage the bypass incisions were then closed using interrupted Vicryl mattress of nylon and the remaining vein harvest incision in the arm was closed using 3- 0 Vicryl subcutaneous and skin arpit. The open incisions in the groin and calf within further debrided using cleaned pulse lavage and sharp debridement followed by wound VAC closure. The open transmet was also treated with wound VAC the patient was then returned to the recovery area in stable condition having tolerated the procedure well. Patient remained intubated for airway control. Sponge and needle counts were correct.]
--- NOTE | 2017-06-14 19:10 | Procedure Note ---
Date of procedure: 06/14/17 Pre-op diagnosis: NEED FOR CENTRAL VENOUS ACCESS DUE TO VASOPRESSOR SUPPORT Post-op diagnosis: same Procedure: RIGHT INTERNAL JUGULAR CENTRAL LINE Anesthesia: local Surgeon: TING BRITO Estimated blood loss: minimal Pathology: none Condition: stable Disposition: ICU
--- NOTE | 2017-06-14 19:14 | Post Anesthesia Evaluation ---
- Post Anesthesia Evaluation Patient Participated: No Airway Patent: Yes Stable Respiratory Function: Yes Nausea/Vomiting: No Temp > 96.8F: Yes Pain Manageable: Yes Adequeate Hydration: Yes Anesthesia Complications: No Block Receding Appropriately: Not Applicable Patient on Ventilator: Yes Other Comments: PATIENT KEPT INTUBATED POST OP DUE TO EXTENSIVE SURGERY, HEMODYNAMIC INSTABILITY DURING SURGERY AND HISTORY OF COMBATIVENESS WHEN WAKING UP.
[2017-06-14] MEDS ORDERED: VASELINE LIP THERAPY TP PRN ×2 (19:18→19:35)
[2017-06-14] MEDS ORDERED: ARTIFICIAL TEARS OPHTH OINT OU PRN ×2 (19:18→19:35)
[2017-06-14] MEDS ORDERED: VERSED IV ONE ×2 (19:23→19:39)
[2017-06-14] MEDS ORDERED: ATIVAN 100 MG in NACL 0.9% 50 ML, VIAFLEX EMPTY CONTAINER 0 ML IV SCH (20:00)
[2017-06-14] MEDS ORDERED: NACL 0.9% 500 ML IV SCH (20:00)
[2017-06-14] MEDS ORDERED: MIDAZOLAM 100 MG in NACL 0.9% 80 ML IV SCH (20:00)
[2017-06-14 20:06] LABS: Hematocrit 29.7 % (35.5-45.6); Hemoglobin 9.9 gm/dl (11.8-15.2); Mean Corpuscular HGB Conc 33 % (32-34); Mean Corpuscular Hemoglobin 30 pg (28-32); Mean Corpuscular Volume 89 fl (84-94); Platelet Count 126 K/mm3 (140-440); Red Blood Count 3.33 M/mm3 (3.65-5.03); Red Cell Distribution Width 15.7 % (13.2-15.2); White Blood Count 13.1 K/mm3 (4.5-11.0)
[2017-06-14 20:19] LABS: BUN/Creatinine Ratio 17.05; Calcium 7.9 mg/dL (8.4-10.2); Chloride 108.5 mmol/L (98-107); Potassium 5.7 mmol/L (3.6-5.0)
--- NOTE | 2017-06-14 20:23 | XRay Report ---
FINAL REPORT EXAM: XR CHEST 1V AP HISTORY: ETT placement TECHNIQUE: AP portable view of the chest PRIORS: CXR 05/06/2017 FINDINGS: Lines, tubes, and devices: Median sternotomy wires are again noted. A right jugular catheter has been placed terminating in the mid superior vena cava. The endotracheal tube terminates 3 cm above the kelsey. A nasogastric tube terminates in the distal esophagus located approximately 10 cm above the GE junction (at approximately the level of the 2nd from last sternotomy wire). Lungs and pleura: Trachea is normal in position. Lungs are clear of infiltrate, pleural effusion, vascular congestion, or pneumothorax. No change. Cardiomediastinal silhouette: Cardiac and mediastinal silhouettes are unremarkable. Other: Bony structures are intact. IMPRESSION: Satisfactory placement of ET tube and right jugular catheter. Nasogastric tube terminates in the distal esophagus and should be advanced about 10 cm into the stomach.
[2017-06-14] MEDS ORDERED: SODIUM BICARBONATE 150 MEQ in D5W 1,000 ML IV SCH (21:00)
[2017-06-14 21:07] LABS: ISTAT Base Excess -14; ISTAT HCO3 13.9; ISTAT PCO2 32.3 (35-45); ISTAT PH 7.241 (7.35-7.45); ISTAT PO2 550 (80-105); ISTAT SO2 100; ISTAT TCO2 15
--- NOTE | 2017-06-14 21:24 | Progress Note ---
Assessment and Plan Patient is a 76 year old male with hx of PAD, S/P multiple vascular surgeries including a TMA wiah a wound VAC that malfunctioned leading to blood loss Patient also has history of CAD CABG more than many years ago, ischemic cardiomyopathy hypertension diabetes hyperlipidemia with last known ejection fraction of 40-45% Presents to half-way with hypotension, fever. With no improvement despite multiple fluid suspicion was placed on pressors in the ER, admitted to the hospital. * Septic shock w/possible hemorrhagic shock * Infected hematoma of the left femoral; hematoma and infected left femoral tibial graft s/p revision of the same 06/14/17 * Acute blood loss anemia * Uncontrolled diabetes mellitus * CAD s/p CABG * Tacycardia with PVC * Diabetic wound * S/P Partial foot amputation- Left * S/P wound vac to left medical surgical laceration site * Severe PAD PLAN * S/p Revisoop of left Popliteal * Continue supportive care, discussed with computational theory scientist, Vascular surgery, ED and patients family * S/P 5 units PRBC, Monitor h/h, Transfuse as needed * Repeat Stat Lactate, * Continue IV abx, wound cultures, blood cultures, ID consult * Follow up recs from vascular surgery * Wound care consult when ok With Vascular * Cardiology consult and monitor Electrolytes * Accucheck, AC/HS * Discussed extensively with family and Patient- He is a DNR/DNI * DVT/GI prophy Subjective Date of service: 06/14/17 Interval history: confused. Had surgery today Objective - Constitutional Vitals: Vital Signs - 12hr 06/14/17 06/14/17 06/14/17 09:21 09:30 09:41 Temperature Pulse Rate 126 H 128 H 129 H Respiratory 21 23 20 Rate Blood Pressure 120/61 113/66 113/66 O2 Sat by Pulse 100 100 Oximetry 06/14/17 06/14/17 06/14/17 09:51 10:00 10:11 Temperature Pulse Rate 127 H 129 H 127 H Respiratory 20 21 21 Rate Blood Pressure 123/66 122/63 122/63 O2 Sat by Pulse 81 L 76 L 87 Oximetry 06/14/17 06/14/17 06/14/17 10:21 10:30 10:41 Temperature Pulse Rate 127 H 125 H 131 H Respiratory 21 12 15 Rate Blood Pressure 122/62 124/63 124/63 O2 Sat by Pulse Oximetry 08/01/2606/14/17 06/14/17 10:51 11:00 11:11 Temperature Pulse Rate 127 H 126 H 126 H Respiratory 20 21 21 Rate Blood Pressure 120/61 126/61 126/61 O2 Sat by Pulse Oximetry 06/14/17 06/14/17 06/14/17 19:00 19:15 19:20 Temperature 97.5 F L Pulse Rate 113 H 110 H 111 H Respiratory 18 27 H 26 H Rate Blood Pressure 102/50 131/59 126/55 O2 Sat by Pulse 100 100 100 Oximetry 06/14/17 06/14/17 06/14/17 19:25 19:30 19:45 Temperature Pulse Rate 112 H 111 H 112 H Respiratory 28 H 27 H 25 H Rate Blood Pressure 132/64 131/59 123/56 O2 Sat by Pulse 100 100 100 Oximetry 06/14/17 20:05 Temperature Pulse Rate 114 H Respiratory Rate Blood Pressure 134/58 O2 Sat by Pulse 100 Oximetry General appearance: Present: no acute distress, well-nourished, other (altered mental status) - EENT Eyes: PERRL, EOM intact ENT: hearing intact, clear oral mucosa Ears: bilateral: normal - Neck Neck: supple, normal ROM - Respiratory Respiratory effort: normal Respiratory: bilateral: CTA - Cardiovascular Rhythm: regular Heart Sounds: Present: S1 & S2. Absent: gallop, rub Extremities: pulses intact, No edema, normal color, Full ROM - Gastrointestinal General gastrointestinal: Present: soft, non-tender, non-distended, normal bowel sounds - Integumentary Integumentary: clear, warm, dry - Musculoskeletal Musculoskeletal: 1, strength equal bilaterally - Neurologic Neurologic: moves all extremities - Psychiatric Psychiatric: memory intact, appropriate mood/affect, intact judgment & insight - Labs CBC & Chem 7: 06/14/17 19:45 06/14/17 19:45 Labs: Abnormal lab results 06/13/17 06/13/17 06/14/17 Range/Units 18:49 21:13 00:24 WBC (4.5-11.0) K/mm3 RBC (3.65-5.03) M/mm3 Hgb 8.5 L (11.8-15.2) gm/dl Hct 25.7 L (35.5-45.6) % RDW (13.2-15.2) % Plt Count (140-440) K/mm3 PT (12.2-14.9) Sec. INR (0.87-1.13) POC ABG pH (7.35-7.45) POC ABG pCO2 (35-45) POC ABG pO2 (80-105) Sodium (137-145) mmol/L Potassium (3.6-5.0) mmol/L Chloride (98-107) mmol/L Carbon Dioxide (22-30) mmol/L BUN (9-20) mg/dL Creatinine (0.8-1.5) mg/dL Glucose (75-100) mg/dL POC Glucose 252 H 234 H (70-105) Calcium (8.4-10.2) mg/dL Total Protein (6.3-8.2) g/dL Albumin (3.9-5) g/dL 06/14/17 06/14/17 06/14/17 Range/Units 01:53 04:44 05:49 WBC (4.5-11.0) K/mm3 RBC (3.65-5.03) M/mm3 Hgb 8.2 L (11.8-15.2) gm/dl Hct 25.1 L (35.5-45.6) % RDW (13.2-15.2) % Plt Count (140-440) K/mm3 PT (12.2-14.9) Sec. INR (0.87-1.13) POC ABG pH (7.35-7.45) POC ABG pCO2 (35-45) POC ABG pO2 (80-105) Sodium (137-145) mmol/L Potassium (3.6-5.0) mmol/L Chloride (98-107) mmol/L Carbon Dioxide (22-30) mmol/L BUN (9-20) mg/dL Creatinine (0.8-1.5) mg/dL Glucose (75-100) mg/dL POC Glucose 213 H 218 H (70-105) Calcium (8.4-10.2) mg/dL Total Protein (6.3-8.2) g/dL Albumin (3.9-5) g/dL 06/14/17 06/14/17 06/14/17 Range/Units 07:42 07:42 07:42 WBC 12.2 H (4.5-11.0) K/mm3 RBC 2.77 L (3.65-5.03) M/mm3 Hgb 8.1 L (11.8-15.2) gm/dl Hct 25.0 L (35.5-45.6) % RDW 15.7 H (13.2-15.2) % Plt Count (140-440) K/mm3 PT 15.9 H (12.2-14.9) Sec. INR 1.28 H (0.87-1.13) POC ABG pH (7.35-7.45) POC ABG pCO2 (35-45) POC ABG pO2 (80-105) Sodium 146 H D (137-145) mmol/L Potassium (3.6-5.0) mmol/L Chloride 110.2 H (98-107) mmol/L Carbon Dioxide 15 L D (22-30) mmol/L BUN 25 H (9-20) mg/dL Creatinine (0.8-1.5) mg/dL Glucose 185 H (75-100) mg/dL POC Glucose (70-105) Calcium 8.0 L (8.4-10.2) mg/dL Total Protein 5.1 L (6.3-8.2) g/dL Albumin 2.0 L (3.9-5) g/dL 06/14/17 06/14/17 06/14/17 Range/Units 14:31 16:45 19:34 WBC 14.0 H (4.5-11.0) K/mm3 RBC 3.61 L (3.65-5.03) M/mm3 Hgb 10.9 L (11.8-15.2) gm/dl Hct 32.8 L D (35.5-45.6) % RDW 15.8 H (13.2-15.2) % Plt Count (140-440) K/mm3 PT (12.2-14.9) Sec. INR (0.87-1.13) POC ABG pH (7.35-7.45) POC ABG pCO2 (35-45) POC ABG pO2 (80-105) Sodium (137-145) mmol/L Potassium (3.6-5.0) mmol/L Chloride (98-107) mmol/L Carbon Dioxide (22-30) mmol/L BUN (9-20) mg/dL Creatinine (0.8-1.5) mg/dL Glucose (75-100) mg/dL POC Glucose 235 H 296 H (70-105) Calcium (8.4-10.2) mg/dL Total Protein (6.3-8.2) g/dL Albumin (3.9-5) g/dL 06/14/17 06/14/17 06/14/17 Range/Units 19:45 19:45 20:05 WBC 13.1 H (4.5-11.0) K/mm3 RBC 3.33 L (3.65-5.03) M/mm3 Hgb 9.9 L (11.8-15.2) gm/dl Hct 29.7 L (35.5-45.6) % RDW 15.7 H (13.2-15.2) % Plt Count 126 L (140-440) K/mm3 PT (12.2-14.9) Sec. INR (0.87-1.13) POC ABG pH 7.241 L (7.35-7.45) POC ABG pCO2 32.3 L (35-45) POC ABG pO2 550 H (80-105) Sodium 148 H (137-145) mmol/L Potassium 5.7 H D (3.6-5.0) mmol/L Chloride 108.5 H (98-107) mmol/L Carbon Dioxide 12 L (22-30) mmol/L BUN 29 H (9-20) mg/dL Creatinine 1.7 H (0.8-1.5) mg/dL Glucose 324 H (75-100) mg/dL POC Glucose (70-105) Calcium 7.9 L (8.4-10.2) mg/dL Total Protein (6.3-8.2) g/dL Albumin (3.9-5) g/dL
[2017-06-14] MEDS ORDERED: VANCOMYCIN/NS 1 GM/250 ML 1 GM/250 ML BAG IV SCH (22:00)
[2017-06-14] MEDS: ROCEPHIN/NS 1 GM/50 ML 1 GM/50 ML BAG IV SCH (22:13)
[2017-06-14] MEDS: VANCOMYCIN 1,500 MG in NACL 0.9% 500 ML 500 ML IV SCH (22:15)
[2017-06-14 23:25] LABS: ISTAT Base Excess -13; ISTAT HCO3 13.1; ISTAT PCO2 26.8 (35-45); ISTAT PH 7.298 (7.35-7.45); ISTAT PO2 303 (80-105); ISTAT SO2 100; ISTAT TCO2 14
[2017-06-14] MEDS: ZOSYN/NS 4.5GM/100ML 4.5 GM/100 ML VIAL IV SCH (23:48)
[2017-06-15] MEDS: LEVEMIR SUB-Q SCH ×2 (00:21→09:48)
[2017-06-15] MEDS: ZOSYN/NS 4.5GM/100ML 4.5 GM/100 ML VIAL IV SCH ×2 (06:19→13:45)
[2017-06-15 06:37] LABS: Hematocrit 26.4 % (35.5-45.6); Hemoglobin 8.8 gm/dl (11.8-15.2)
[2017-06-15 06:57] LABS: BUN/Creatinine Ratio 16.11; Calcium 7.7 mg/dL (8.4-10.2)
[2017-06-15 06:58] LABS: Chloride 114.7 mmol/L (98-107)
[2017-06-15 07:03] LABS: ISTAT Base Excess -7; ISTAT PCO2 34.4 (35-45); ISTAT PO2 191 (80-105); ISTAT SO2 100; ISTAT TCO2 20
[2017-06-15] MEDS: LEVOPHED DRIP 4 MG/NS 250 ML 4 MG/250 ML BAG IV SCH ×3 (07:42→22:58)
--- NOTE | 2017-06-15 07:42 | XRay Report ---
AP CHEST: HISTORY: Followup respiratory failure The endotracheal tube and right venous catheter unchanged. Nasogastric tube has been removed. AP view of the chest demonstrates a normal mediastinal and cardiac contour with clear lungs and normal bony and soft tissue structures. IMPRESSION: No acute cardiopulmonary process.
--- NOTE | 2017-06-15 08:20 | Progress Note ---
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 S/P wound vac to left medical surgical laceration site Severe PAD Recommendations: Wean levophed as tolerated Supportive care per ICU and primary team Subjective Date of service: 06/15/17 Principal diagnosis: Septic shock Interval history: patient is intubated, mechanically ventilated and sedated on IV versed. tele is showing sinus tachycardia no events noted overnight Objective Vital Signs Temp Pulse Pulse Resp Resp Resp BP 06/15/17 07:53 99.7 F H 06/15/17 07:44 118 H 06/15/17 07:41 120 H 23 109/50 06/15/17 07:30 120 H 20 109/50 06/15/17 07:21 120 H 20 105/50 06/15/17 07:11 119 H 23 102/48 06/15/17 07:00 118 H 24 105/46 06/15/17 06:51 115 H 23 103/53 06/15/17 06:41 118 H 30 H 95/50 06/15/17 06:30 119 H 21 94/47 06/15/17 06:21 118 H 25 H 91/50 06/15/17 06:11 117 H 25 H 111/49 06/15/17 06:00 116 H 24 111/49 06/15/17 05:51 116 H 23 100/48 06/15/17 05:41 116 H 22 106/54 06/15/17 05:30 115 H 24 106/54 06/15/17 05:21 115 H 24 108/53 06/15/17 05:11 114 H 24 94/51 06/15/17 05:00 115 H 23 100/49 06/15/17 04:51 115 H 24 106/50 06/15/17 04:41 116 H 21 104/53 06/15/17 04:30 116 H 23 94/51 06/15/17 04:21 117 H 24 104/53 06/15/17 04:11 115 H 16 100/49 06/15/17 04:02 116 H 100/48 06/15/17 04:00 100.5 F H 115 H 115 H 19 100/49 06/15/17 03:51 117 H 23 100/48 06/15/17 03:41 116 H 22 108/49 06/15/17 03:30 117 H 24 103/49 06/15/17 03:21 117 H 22 107/50 06/15/17 03:11 118 H 24 109/51 06/15/17 03:00 118 H 25 H 108/49 06/15/17 02:51 119 H 22 109/51 06/15/17 02:41 119 H 24 109/54 06/15/17 02:30 120 H 24 109/54 06/15/17 02:21 118 H 23 99/44 06/15/17 02:11 120 H 23 108/50 06/15/17 02:00 119 H 28 H 108/50 06/15/17 01:51 120 H 25 H 115/51 06/15/17 01:41 120 H 25 H 108/52 06/15/17 01:30 119 H 26 H 108/52 06/15/17 01:21 118 H 26 H 109/48 06/15/17 01:11 120 H 27 H 106/43 06/15/17 01:03 30 H 30 H 06/15/17 01:00 119 H 28 H 106/43 06/15/17 00:50 120 H 31 H 105/51 06/15/17 00:41 117 H 32 H 95/42 06/15/17 00:39 116 H 95/42 06/15/17 00:30 114 H 30 H 95/42 06/15/17 00:21 116 H 30 H 100/51 06/15/17 00:11 115 H 25 H 113/41 06/15/17 00:00 118 H 31 H 113/41 06/14/17 23:51 115 H 28 H 97/47 06/14/17 23:43 98.9 F 06/14/17 23:41 114 H 27 H 101/46 06/14/17 23:30 114 H 30 H 101/46 06/14/17 23:21 111 H 31 H 85/48 06/14/17 23:11 157 H 31 H 97/51 06/14/17 23:00 136 H 32 H 97/51 06/14/17 22:51 158 H 30 H 106/52 06/14/17 22:41 146 H 32 H 92/47 06/14/17 22:30 141 H 28 H 92/47 06/14/17 22:21 138 H 30 H 99/54 06/14/17 22:11 142 H 30 H 95/45 06/14/17 22:00 145 H 25 H 95/45 06/14/17 21:51 138 H 28 H 100/48 06/14/17 21:41 142 H 28 H 94/45 06/14/17 21:31 140 H 30 H 94/45 06/14/17 21:21 142 H 30 H 129/57 06/14/17 21:11 149 H 35 H 127/49 06/14/17 21:01 143 H 33 H 127/49 06/14/17 20:51 122 H 26 H 120/55 06/14/17 20:41 117 H 31 H 123/49 06/14/17 20:30 116 H 116 H 31 H 123/49 06/14/17 20:20 135/59 06/14/17 20:19 06/14/17 20:05 114 H 134/58 06/14/17 19:45 112 H 25 H 123/56 06/14/17 19:30 111 H 27 H 131/59 06/14/17 19:25 112 H 28 H 132/64 06/14/17 19:20 111 H 26 H 126/55 06/14/17 19:15 110 H 27 H 131/59 06/14/17 19:00 97.5 F L 113 H 18 102/50 06/14/17 11:11 126 H 21 126/61 06/14/17 11:00 126 H 21 126/61 06/14/17 10:51 127 H 20 120/61 06/14/17 10:41 131 H 15 124/63 06/14/17 10:30 125 H 12 124/63 06/14/17 10:21 127 H 21 122/62 06/14/17 10:11 127 H 21 122/63 06/14/17 10:00 129 H 21 122/63 06/14/17 09:51 127 H 20 123/66 06/14/17 09:41 129 H 20 113/66 06/14/17 09:30 128 H 23 113/66 06/14/17 09:21 126 H 21 120/61 06/14/17 09:11 127 H 16 113/61 06/14/17 09:00 117 H 20 113/61 06/14/17 08:51 128 H 21 122/60 06/14/17 08:41 128 H 23 113/60 06/14/17 08:30 127 H 20 113/60 06/14/17 08:21 124 H 22 114/60 Pulse Ox 06/15/17 07:53 06/15/17 07:44 100 06/15/17 07:41 100 06/15/17 07:30 100 06/15/17 07:21 100 06/15/17 07:11 100 06/15/17 07:00 100 06/15/17 06:51 100 06/15/17 06:41 100 06/15/17 06:30 100 06/15/17 06:21 100 06/15/17 06:11 100 06/15/17 06:00 100 06/15/17 05:51 100 06/15/17 05:41 100 06/15/17 05:30 100 06/15/17 05:21 100 06/15/17 05:11 100 06/15/17 05:00 100 06/15/17 04:51 100 06/15/17 04:41 100 06/15/17 04:30 100 06/15/17 04:21 100 06/15/17 04:11 100 06/15/17 04:02 100 06/15/17 04:00 100 06/15/17 03:51 100 06/15/17 03:41 100 06/15/17 03:30 100 06/15/17 03:21 100 06/15/17 03:11 100 06/15/17 03:00 100 06/15/17 02:51 100 06/15/17 02:41 100 06/15/17 02:30 100 06/15/17 02:21 100 06/15/17 02:11 100 06/15/17 02:00 100 06/15/17 01:51 100 06/15/17 01:41 100 06/15/17 01:30 100 06/15/17 01:21 100 06/15/17 01:11 100 06/15/17 01:03 06/15/17 01:00 100 06/15/17 00:50 100 06/15/17 00:41 100 06/15/17 00:39 100 06/15/17 00:30 100 06/15/17 00:21 100 06/15/17 00:11 100 06/15/17 00:00 100 06/14/17 23:51 100 06/14/17 23:43 06/14/17 23:41 99 06/14/17 23:30 100 06/14/17 23:21 100 06/14/17 23:11 100 06/14/17 23:00 100 06/14/17 22:51 100 06/14/17 22:41 100 06/14/17 22:30 100 06/14/17 22:21 100 06/14/17 22:11 97 06/14/17 22:00 100 06/14/17 21:51 100 06/14/17 21:41 100 06/14/17 21:31 100 06/14/17 21:21 100 06/14/17 21:11 100 06/14/17 21:01 91 06/14/17 20:51 06/14/17 20:41 84 06/14/17 20:30 98 06/14/17 20:20 06/14/17 20:19 100 06/14/17 20:05 100 06/14/17 19:45 100 06/14/17 19:30 100 06/14/17 19:25 100 06/14/17 19:20 100 06/14/17 19:15 100 06/14/17 19:00 100 06/14/17 11:11 06/14/17 11:00 06/14/17 10:51 06/14/17 10:41 06/14/17 10:30 06/14/17 10:21 06/14/17 10:11 87 06/14/17 10:00 76 L 06/14/17 09:51 81 L 06/14/17 09:41 100 06/14/17 09:30 100 06/14/17 09:21 06/14/17 09:11 63 L 06/14/17 09:00 06/14/17 08:51 06/14/17 08:41 100 06/14/17 08:30 100 06/14/17 08:21 100 - Physical Examination General: Other (intubated, sedated) Neck: Positive: neck supple Cardiac: Positive: Tachycardia Lungs: Positive: Ventilated Respirations Abdomen: Positive: Soft - Labs and Meds Cardiac Enzymes 06/14/17 Range/Units 07:42 AST 38 (5-40) units/L Coagulation 06/14/17 Range/Units 07:42 PT 15.9 H (12.2-14.9) Sec. INR 1.28 H (0.87-1.13) APTT 30.6 (24.2-36.6) Sec. CBC 06/14/17 06/14/17 06/15/17 Range/Units 16:45 19:45 06:15 WBC 14.0 H 13.1 H (4.5-11.0) K/mm3 RBC 3.61 L 3.33 L (3.65-5.03) M/mm3 Hgb 10.9 L 9.9 L 8.8 L (11.8-15.2) gm/dl Hct 32.8 L D 29.7 L 26.4 L (35.5-45.6) % Plt Count 152 126 L (140-440) K/mm3 Comprehensive Metabolic Panel 06/14/17 06/14/17 06/15/17 Range/Units 07:42 19:45 06:15 Sodium 146 H D 148 H 151 H (137-145) mmol/L Potassium 4.6 5.7 H D 5.0 (3.6-5.0) mmol/L Chloride 110.2 H 108.5 H 114.7 H (98-107) mmol/L Carbon Dioxide 15 L D 12 L 18 L (22-30) mmol/L BUN 25 H 29 H 29 H (9-20) mg/dL Creatinine 1.2 1.7 H 1.8 H (0.8-1.5) mg/dL Glucose 185 H 324 H 259 H (75-100) mg/dL Calcium 8.0 L 7.9 L 7.7 L (8.4-10.2) mg/dL AST 38 (5-40) units/L ALT 21 (7-56) units/L Alkaline Phosphatase 55 (35-129) units/L Total Protein 5.1 L (6.3-8.2) g/dL Albumin 2.0 L (3.9-5) g/dL
[2017-06-15] MEDS: PEPCID IV SCH ×2 (09:48→22:59)
[2017-06-15] MEDS ORDERED: NACL 0.9% 500 ML 500 ML IV ONE (11:31)
--- NOTE | 2017-06-15 11:32 | Progress Note ---
Assessment and Plan 76 y/o male with acute blood loss anemia and hypotension, hemorrhagic shock vs septic shock, now with debridement/surgery of left lower ext, found to be infected 1. Given clinical history and currently unstable hemodynamics, will transfuse 2 more units of PRBC's. 2. Change H/H's to daily unless blood seen in wound vac 3. Attempting PSV trials and tolerating now that off sedation, however mental status will determine extubation as lung mechanics are normal. 4. Abx therapy restarted which is reasonable given surgical findings 5. Shock is most likely multifactorial, sepsis and hemorrhage. 6. Follow up vascular surgery recs, post-op 7. Will continue to follow, prognosis is guarded to poor. Patient is a DNR 8. Wean Vasopressor therapy for maps >65 9. starting insulin drip for better control of sugars given extensive infection CCT 31 minutes. Subjective Date of service: 06/15/17 Principal diagnosis: Septic shock Interval history: Back from OR late yesterday evening. Intubated. Had extensive surgery/ debridement to left leg. Now with 2 would sites with vacs hooked to one vacum. Sedation just recently turned off. Still not awake yet. No family at the bedside yet. Had a temp of 100.5 this am. On abx therapy. Objective Vital Signs - 12hr 06/14/17 06/14/17 06/14/17 23:30 23:41 23:43 Temperature 98.9 F Pulse Rate 114 H 114 H Pulse Rate [ From Monitor] Respiratory 30 H 27 H Rate Respiratory Rate [Left Anterior Leg] Respiratory Rate [Left Foot ] Blood Pressure 101/46 101/46 O2 Sat by Pulse 100 99 Oximetry 06/14/17 06/15/17 06/15/17 23:51 00:00 00:11 Temperature Pulse Rate 115 H 118 H 115 H Pulse Rate [ From Monitor] Respiratory 28 H 31 H 25 H Rate Respiratory Rate [Left Anterior Leg] Respiratory Rate [Left Foot ] Blood Pressure 97/47 113/41 113/41 O2 Sat by Pulse 100 100 100 Oximetry 06/15/17 06/15/17 06/15/17 00:21 00:30 00:39 Temperature Pulse Rate 116 H 114 H 116 H Pulse Rate [ From Monitor] Respiratory 30 H 30 H Rate Respiratory Rate [Left Anterior Leg] Respiratory Rate [Left Foot ] Blood Pressure 100/51 95/42 95/42 O2 Sat by Pulse 100 100 100 Oximetry 06/15/17 06/15/17 06/15/17 00:41 00:50 01:00 Temperature Pulse Rate 117 H 120 H 119 H Pulse Rate [ From Monitor] Respiratory 32 H 31 H 28 H Rate Respiratory Rate [Left Anterior Leg] Respiratory Rate [Left Foot ] Blood Pressure 95/42 105/51 106/43 O2 Sat by Pulse 100 100 100 Oximetry 06/15/17 06/15/17 06/15/17 01:03 01:11 01:21 Temperature Pulse Rate 120 H 118 H Pulse Rate [ From Monitor] Respiratory 27 H 26 H Rate Respiratory 30 H Rate [Left Anterior Leg] Respiratory 30 H Rate [Left Foot ] Blood Pressure 106/43 109/48 O2 Sat by Pulse 100 100 Oximetry 06/15/17 06/15/17 06/15/17 01:30 01:41 01:51 Temperature Pulse Rate 119 H 120 H 120 H Pulse Rate [ From Monitor] Respiratory 26 H 25 H 25 H Rate Respiratory Rate [Left Anterior Leg] Respiratory Rate [Left Foot ] Blood Pressure 108/52 108/52 115/51 O2 Sat by Pulse 100 100 100 Oximetry 06/15/17 06/15/17 06/15/17 02:00 02:11 02:21 Temperature Pulse Rate 119 H 120 H 118 H Pulse Rate [ From Monitor] Respiratory 28 H 23 23 Rate Respiratory Rate [Left Anterior Leg] Respiratory Rate [Left Foot ] Blood Pressure 108/50 108/50 99/44 O2 Sat by Pulse 100 100 100 Oximetry 06/15/17 06/15/17 06/15/17 02:30 02:41 02:51 Temperature Pulse Rate 120 H 119 H 119 H Pulse Rate [ From Monitor] Respiratory 24 24 22 Rate Respiratory Rate [Left Anterior Leg] Respiratory Rate [Left Foot ] Blood Pressure 109/54 109/54 109/51 O2 Sat by Pulse 100 100 100 Oximetry 06/15/17 06/15/17 06/15/17 03:00 03:11 03:21 Temperature Pulse Rate 118 H 118 H 117 H Pulse Rate [ From Monitor] Respiratory 25 H 24 22 Rate Respiratory Rate [Left Anterior Leg] Respiratory Rate [Left Foot ] Blood Pressure 108/49 109/51 107/50 O2 Sat by Pulse 100 100 100 Oximetry 06/15/17 06/15/17 06/15/17 03:30 03:41 03:51 Temperature Pulse Rate 117 H 116 H 117 H Pulse Rate [ From Monitor] Respiratory 24 22 23 Rate Respiratory Rate [Left Anterior Leg] Respiratory Rate [Left Foot ] Blood Pressure 103/49 108/49 100/48 O2 Sat by Pulse 100 100 100 Oximetry 06/15/17 06/15/17 06/15/17 04:00 04:02 04:11 Temperature 100.5 F H Pulse Rate 115 H 116 H 115 H Pulse Rate [ 115 H From Monitor] Respiratory 19 16 Rate Respiratory Rate [Left Anterior Leg] Respiratory Rate [Left Foot ] Blood Pressure 100/49 100/48 100/49 O2 Sat by Pulse 100 100 100 Oximetry 06/15/17 06/15/17 06/15/17 04:21 04:30 04:41 Temperature Pulse Rate 117 H 116 H 116 H Pulse Rate [ From Monitor] Respiratory 24 23 21 Rate Respiratory Rate [Left Anterior Leg] Respiratory Rate [Left Foot ] Blood Pressure 104/53 94/51 104/53 O2 Sat by Pulse 100 100 100 Oximetry 06/15/17 06/15/17 06/15/17 04:51 05:00 05:11 Temperature Pulse Rate 115 H 115 H 114 H Pulse Rate [ From Monitor] Respiratory 24 23 24 Rate Respiratory Rate [Left Anterior Leg] Respiratory Rate [Left Foot ] Blood Pressure 106/50 100/49 94/51 O2 Sat by Pulse 100 100 100 Oximetry 06/15/17 06/15/17 06/15/17 05:21 05:30 05:41 Temperature Pulse Rate 115 H 115 H 116 H Pulse Rate [ From Monitor] Respiratory 24 24 22 Rate Respiratory Rate [Left Anterior Leg] Respiratory Rate [Left Foot ] Blood Pressure 108/53 106/54 106/54 O2 Sat by Pulse 100 100 100 Oximetry 06/15/17 06/15/17 06/15/17 05:51 06:00 06:11 Temperature Pulse Rate 116 H 116 H 117 H Pulse Rate [ From Monitor] Respiratory 23 24 25 H Rate Respiratory Rate [Left Anterior Leg] Respiratory Rate [Left Foot ] Blood Pressure 100/48 111/49 111/49 O2 Sat by Pulse 100 100 100 Oximetry 06/15/17 06/15/17 06/15/17 06:21 06:30 06:41 Temperature Pulse Rate 118 H 119 H 118 H Pulse Rate [ From Monitor] Respiratory 25 H 21 30 H Rate Respiratory Rate [Left Anterior Leg] Respiratory Rate [Left Foot ] Blood Pressure 91/50 94/47 95/50 O2 Sat by Pulse 100 100 100 Oximetry 06/15/17 06/15/17 06/15/17 06:51 07:00 07:11 Temperature Pulse Rate 115 H 118 H 119 H Pulse Rate [ From Monitor] Respiratory 23 24 23 Rate Respiratory Rate [Left Anterior Leg] Respiratory Rate [Left Foot ] Blood Pressure 103/53 105/46 102/48 O2 Sat by Pulse 100 100 100 Oximetry 06/15/17 06/15/17 06/15/17 07:21 07:30 07:41 Temperature Pulse Rate 120 H 120 H 120 H Pulse Rate [ From Monitor] Respiratory 20 20 23 Rate Respiratory Rate [Left Anterior Leg] Respiratory Rate [Left Foot ] Blood Pressure 105/50 109/50 109/50 O2 Sat by Pulse 100 100 100 Oximetry 06/15/17 06/15/17 06/15/17 07:44 07:51 07:53 Temperature 99.7 F H Pulse Rate 123 H Pulse Rate [ 118 H From Monitor] Respiratory 22 Rate Respiratory Rate [Left Anterior Leg] Respiratory Rate [Left Foot ] Blood Pressure 112/52 O2 Sat by Pulse 100 100 Oximetry 06/15/17 06/15/17 06/15/17 08:00 08:11 08:15 Temperature Pulse Rate 122 H 122 H 123 H Pulse Rate [ From Monitor] Respiratory 21 20 Rate Respiratory Rate [Left Anterior Leg] Respiratory Rate [Left Foot ] Blood Pressure 112/53 112/53 112/53 O2 Sat by Pulse 100 100 100 Oximetry 06/15/17 06/15/17 06/15/17 08:21 08:30 08:41 Temperature Pulse Rate 124 H 124 H 124 H Pulse Rate [ From Monitor] Respiratory 23 21 21 Rate Respiratory Rate [Left Anterior Leg] Respiratory Rate [Left Foot ] Blood Pressure 117/53 127/55 127/55 O2 Sat by Pulse 100 100 100 Oximetry 06/15/17 06/15/17 06/15/17 08:51 09:00 09:11 Temperature Pulse Rate 124 H 124 H 123 H Pulse Rate [ From Monitor] Respiratory 25 H 23 22 Rate Respiratory Rate [Left Anterior Leg] Respiratory Rate [Left Foot ] Blood Pressure 123/56 126/57 126/57 O2 Sat by Pulse 100 100 100 Oximetry 06/15/17 06/15/17 06/15/17 09:21 09:30 09:41 Temperature Pulse Rate 124 H 124 H 125 H Pulse Rate [ From Monitor] Respiratory 22 24 21 Rate Respiratory Rate [Left Anterior Leg] Respiratory Rate [Left Foot ] Blood Pressure 121/60 112/63 112/63 O2 Sat by Pulse 100 100 100 Oximetry 06/15/17 06/15/17 06/15/17 09:51 10:00 10:11 Temperature Pulse Rate 123 H 124 H 124 H Pulse Rate [ 125 H From Monitor] Respiratory 24 21 22 Rate Respiratory Rate [Left Anterior Leg] Respiratory Rate [Left Foot ] Blood Pressure 116/60 117/57 117/57 O2 Sat by Pulse 100 100 100 Oximetry 06/15/17 06/15/17 06/15/17 10:21 10:30 10:41 Temperature Pulse Rate 126 H 125 H 123 H Pulse Rate [ From Monitor] Respiratory 24 21 23 Rate Respiratory Rate [Left Anterior Leg] Respiratory Rate [Left Foot ] Blood Pressure 123/59 119/54 119/54 O2 Sat by Pulse 100 100 100 Oximetry 06/15/17 06/15/17 06/15/17 10:51 11:00 11:07 Temperature Pulse Rate 124 H 124 H 124 H Pulse Rate [ From Monitor] Respiratory 23 17 20 Rate Respiratory Rate [Left Anterior Leg] Respiratory Rate [Left Foot ] Blood Pressure 115/60 114/55 115/60 O2 Sat by Pulse 100 100 100 Oximetry Constitutional: comatose, other (orally intubated and critically ill on the vent ) Eyes: non-icteric Neck: supple Effort: normal Ascultation: Bilateral: clear Percussion: Bilateral: not dull Cardiovascular: regular rate and rhythm (sinus tachycardia) Gastrointestinal: normoactive bowel sounds, soft Extremities: other (wound vacs in place on left) Neurologic: unable to assess CBC and BMP: 06/15/17 06:15 06/15/17 06:15 ABG, PT/INR, D-dimer: ABG POC ABG pH 7.350 (7.35-7.45) 06/15/17 06:54 POC ABG pCO2 34.4 (35-45) L 06/15/17 06:54 POC ABG pO2 191 (80-105) H 06/15/17 06:54 POC ABG HCO3 19.0 06/15/17 06:54 POC ABG Total CO2 20 06/15/17 06:54 POC ABG O2 Sat 100 06/15/17 06:54 PT/INR, D-dimer PT 15.9 Sec. (12.2-14.9) H 06/14/17 07:42 INR 1.28 (0.87-1.13) H 06/14/17 07:42 Abnormal lab findings: Abnormal Labs 06/13/17 06/13/17 06/13/17 00:18 05:20 10:28 WBC RBC Hgb 6.3 L 7.1 L Hct 19.6 L* 22.1 L RDW Plt Count PT INR POC ABG pH POC ABG pCO2 POC ABG pO2 Sodium Potassium Chloride Carbon Dioxide BUN Creatinine Glucose POC Glucose 289 H Calcium Total Protein Albumin 06/13/17 06/13/17 06/13/17 12:00 16:20 18:45 WBC RBC Hgb 9.9 L 8.8 L Hct 28.8 L D 26.5 L RDW Plt Count PT INR POC ABG pH POC ABG pCO2 POC ABG pO2 Sodium Potassium Chloride Carbon Dioxide BUN Creatinine Glucose POC Glucose 292 H Calcium Total Protein Albumin 06/13/17 06/13/17 06/13/17 18:49 21:13 Unknown WBC RBC Hgb 9.3 L Hct 27.8 L RDW Plt Count PT INR POC ABG pH POC ABG pCO2 POC ABG pO2 Sodium Potassium Chloride Carbon Dioxide BUN Creatinine Glucose POC Glucose 252 H 234 H Calcium Total Protein Albumin 06/14/17 06/14/17 06/14/17 00:24 01:53 04:44 WBC RBC Hgb 8.5 L 8.2 L Hct 25.7 L 25.1 L RDW Plt Count PT INR POC ABG pH POC ABG pCO2 POC ABG pO2 Sodium Potassium Chloride Carbon Dioxide BUN Creatinine Glucose POC Glucose 213 H Calcium Total Protein Albumin 06/14/17 06/14/17 06/14/17 05:49 07:42 07:42 WBC 12.2 H RBC 2.77 L Hgb 8.1 L Hct 25.0 L RDW 15.7 H Plt Count PT 15.9 H INR 1.28 H POC ABG pH POC ABG pCO2 POC ABG pO2 Sodium Potassium Chloride Carbon Dioxide BUN Creatinine Glucose POC Glucose 218 H Calcium Total Protein Albumin 06/14/17 06/14/17 06/14/17 07:42 14:31 16:45 WBC 14.0 H RBC 3.61 L Hgb 10.9 L Hct 32.8 L D RDW 15.8 H Plt Count PT INR POC ABG pH POC ABG pCO2 POC ABG pO2 Sodium 146 H D Potassium Chloride 110.2 H Carbon Dioxide 15 L D BUN 25 H Creatinine Glucose 185 H POC Glucose 235 H Calcium 8.0 L Total Protein 5.1 L Albumin 2.0 L 06/14/17 06/14/17 06/14/17 19:34 19:45 19:45 WBC 13.1 H RBC 3.33 L Hgb 9.9 L Hct 29.7 L RDW 15.7 H Plt Count 126 L PT INR POC ABG pH POC ABG pCO2 POC ABG pO2 Sodium 148 H Potassium 5.7 H D Chloride 108.5 H Carbon Dioxide 12 L BUN 29 H Creatinine 1.7 H Glucose 324 H POC Glucose 296 H Calcium 7.9 L Total Protein Albumin 06/14/17 06/14/17 06/14/17 20:05 21:53 23:06 WBC RBC Hgb Hct RDW Plt Count PT INR POC ABG pH 7.241 L 7.298 L POC ABG pCO2 32.3 L 26.8 L POC ABG pO2 550 H 303 H Sodium Potassium Chloride Carbon Dioxide BUN Creatinine Glucose POC Glucose 259 H Calcium Total Protein Albumin 06/15/17 06/15/17 06/15/17 02:08 06:15 06:15 WBC RBC Hgb 8.8 L Hct 26.4 L RDW Plt Count PT INR POC ABG pH POC ABG pCO2 POC ABG pO2 Sodium 151 H Potassium Chloride 114.7 H Carbon Dioxide 18 L BUN 29 H Creatinine 1.8 H Glucose 259 H POC Glucose 334 H Calcium 7.7 L Total Protein Albumin 06/15/17 06:54 WBC RBC Hgb Hct RDW Plt Count PT INR POC ABG pH POC ABG pCO2 34.4 L POC ABG pO2 191 H Sodium Potassium Chloride Carbon Dioxide BUN Creatinine Glucose POC Glucose Calcium Total Protein Albumin
[2017-06-15] MEDS ORDERED: D50W (25GM) Syringe IV PRN (12:02)
[2017-06-15] MEDS: NovoLIN R 100 UNITS in NACL 0.9% 99 ML IV SCH ×2 (12:35→23:14)
--- NOTE | 2017-06-15 14:56 | Progress Note ---
Assessment and Plan Pt s/p re-do bypass, as the distal portion of the bypass felt to be infected. Bypass tissue friable and would not hold repair sutures. Arm vein harvested and distal portion bypassed around to lower portion of the [employer]ING[employer]. Surgical cx show GNR, will consult ID service. Pt remained intubated post-op. Pt for additional transfusion of PRBC today. Weaning Levo as tolerated. Extubation per Pulm recommendations. Continue supportive care in the ICU. addendum Dr Burch spoke with family post-operatively last night. If bypass thromboses, and leg becomes ischemic, the pt will likely require amputation. They understand and agree. 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 transplanted heart: N Associated angina: without angina (6) Type 2 diabetes mellitus Onset Date: 07/13/16 Current Visit: No Status: Chronic Qualifiers: Diabetes mellitus complication status: with neurologic complications Diabetes mellitus complication detail: with autonomic neuropathy Diabetic retinopathy severity: D Proliferative retinopathy type: P Diabetes mellitus macular edema: D Diabetes mellitus senior care insulin use: with senior care use Laterality: L Chronic kidney disease stage: C Qualified Code(s): E11.43 - Type 2 diabetes mellitus with diabetic autonomic (poly)neuropathy; Z79.4 - [facility] (current) use of insulin Subjective Date of service: 06/15/17 Principal diagnosis: Septic shock [facility] Objective - Constitutional Vitals: Vital Signs - 12hr 06/15/17 06/15/17 06/15/17 03:00 03:11 03:21 Temperature Pulse Rate 118 H 118 H 117 H Pulse Rate [ From Monitor] Respiratory 25 H 24 22 Rate Blood Pressure 108/49 109/51 107/50 O2 Sat by Pulse 100 100 100 Oximetry 06/15/17 06/15/17 06/15/17 03:30 03:41 03:51 Temperature Pulse Rate 117 H 116 H 117 H Pulse Rate [ From Monitor] Respiratory 24 22 23 Rate Blood Pressure 103/49 108/49 100/48 O2 Sat by Pulse 100 100 100 Oximetry 06/15/17 06/15/17 06/15/17 04:00 04:02 04:11 Temperature 100.5 F H Pulse Rate 115 H 116 H 115 H Pulse Rate [ 115 H From Monitor] Respiratory 19 16 Rate Blood Pressure 100/49 100/48 100/49 O2 Sat by Pulse 100 100 100 Oximetry 06/15/17 06/15/17 06/15/17 04:21 04:30 04:41 Temperature Pulse Rate 117 H 116 H 116 H Pulse Rate [ From Monitor] Respiratory 24 23 21 Rate Blood Pressure 104/53 94/51 104/53 O2 Sat by Pulse 100 100 100 Oximetry 06/15/17 06/15/17 06/15/17 04:51 05:00 05:11 Temperature Pulse Rate 115 H 115 H 114 H Pulse Rate [ From Monitor] Respiratory 24 23 24 Rate Blood Pressure 106/50 100/49 94/51 O2 Sat by Pulse 100 100 100 Oximetry 06/15/17 06/15/17 06/15/17 05:21 05:30 05:41 Temperature Pulse Rate 115 H 115 H 116 H Pulse Rate [ From Monitor] Respiratory 24 24 22 Rate Blood Pressure 108/53 106/54 106/54 O2 Sat by Pulse 100 100 100 Oximetry 06/15/17 06/15/17 06/15/17 05:51 06:00 06:11 Temperature Pulse Rate 116 H 116 H 117 H Pulse Rate [ From Monitor] Respiratory 23 24 25 H Rate Blood Pressure 100/48 111/49 111/49 O2 Sat by Pulse 100 100 100 Oximetry 06/15/17 06/15/17 06/15/17 06:21 06:30 06:41 Temperature Pulse Rate 118 H 119 H 118 H Pulse Rate [ From Monitor] Respiratory 25 H 21 30 H Rate Blood Pressure 91/50 94/47 95/50 O2 Sat by Pulse 100 100 100 Oximetry 06/15/17 06/15/17 06/15/17 06:51 07:00 07:11 Temperature Pulse Rate 115 H 118 H 119 H Pulse Rate [ From Monitor] Respiratory 23 24 23 Rate Blood Pressure 103/53 105/46 102/48 O2 Sat by Pulse 100 100 100 Oximetry 06/15/17 06/15/17 06/15/17 07:21 07:30 07:41 Temperature Pulse Rate 120 H 120 H 120 H Pulse Rate [ From Monitor] Respiratory 20 20 23 Rate Blood Pressure 105/50 109/50 109/50 O2 Sat by Pulse 100 100 100 Oximetry 06/15/17 06/15/17 06/15/17 07:44 07:51 07:53 Temperature 99.7 F H Pulse Rate 123 H Pulse Rate [ 118 H From Monitor] Respiratory 22 Rate Blood Pressure 112/52 O2 Sat by Pulse 100 100 Oximetry 06/15/17 06/15/17 06/15/17 08:00 08:11 08:15 Temperature Pulse Rate 122 H 122 H 123 H Pulse Rate [ From Monitor] Respiratory 21 20 Rate Blood Pressure 112/53 112/53 112/53 O2 Sat by Pulse 100 100 100 Oximetry 06/15/17 06/15/17 06/15/17 08:21 08:30 08:41 Temperature Pulse Rate 124 H 124 H 124 H Pulse Rate [ From Monitor] Respiratory 23 21 21 Rate Blood Pressure 117/53 127/55 127/55 O2 Sat by Pulse 100 100 100 Oximetry 06/15/17 06/15/17 06/15/17 08:51 09:00 09:11 Temperature Pulse Rate 124 H 124 H 123 H Pulse Rate [ From Monitor] Respiratory 25 H 23 22 Rate Blood Pressure 123/56 126/57 126/57 O2 Sat by Pulse 100 100 100 Oximetry 06/15/17 06/15/17 06/15/17 09:21 09:30 09:41 Temperature Pulse Rate 124 H 124 H 125 H Pulse Rate [ From Monitor] Respiratory 22 24 21 Rate Blood Pressure 121/60 112/63 112/63 O2 Sat by Pulse 100 100 100 Oximetry 06/15/17 06/15/17 06/15/17 09:51 10:00 10:11 Temperature Pulse Rate 123 H 124 H 124 H Pulse Rate [ 125 H From Monitor] Respiratory 24 21 22 Rate Blood Pressure 116/60 117/57 117/57 O2 Sat by Pulse 100 100 100 Oximetry 06/15/17 06/15/17 06/15/17 10:21 10:30 10:41 Temperature Pulse Rate 126 H 125 H 123 H Pulse Rate [ From Monitor] Respiratory 24 21 23 Rate Blood Pressure 123/59 119/54 119/54 O2 Sat by Pulse 100 100 100 Oximetry 06/15/17 06/15/17 06/15/17 10:51 11:00 11:07 Temperature Pulse Rate 124 H 124 H 124 H Pulse Rate [ From Monitor] Respiratory 23 17 20 Rate Blood Pressure 115/60 114/55 115/60 O2 Sat by Pulse 100 100 100 Oximetry 06/15/17 06/15/17 06/15/17 11:11 11:21 11:30 Temperature Pulse Rate 123 H 123 H 121 H Pulse Rate [ From Monitor] Respiratory 26 H 22 24 Rate Blood Pressure 114/55 120/57 118/57 O2 Sat by Pulse 100 100 100 Oximetry 06/15/17 06/15/17 06/15/17 11:41 11:51 12:00 Temperature 100.4 F H Pulse Rate 123 H 121 H 124 H Pulse Rate [ From Monitor] Respiratory 28 H 39 H 32 H Rate Blood Pressure 118/57 120/55 115/52 O2 Sat by Pulse 100 100 100 Oximetry 06/15/17 06/15/17 06/15/17 12:11 12:21 12:30 Temperature Pulse Rate 127 H 126 H 123 H Pulse Rate [ From Monitor] Respiratory 26 H 27 H 27 H Rate Blood Pressure 115/52 115/52 125/48 O2 Sat by Pulse 100 100 100 Oximetry 06/15/17 06/15/17 06/15/17 12:41 12:49 12:51 Temperature Pulse Rate 125 H 124 H 125 H Pulse Rate [ From Monitor] Respiratory 29 H 29 H 30 H Rate Blood Pressure 125/48 125/48 124/54 O2 Sat by Pulse 100 100 100 Oximetry 06/15/17 06/15/17 06/15/17 13:00 13:11 13:21 Temperature Pulse Rate 125 H 126 H 122 H Pulse Rate [ From Monitor] Respiratory 28 H 24 27 H Rate Blood Pressure 120/54 120/54 120/54 O2 Sat by Pulse 100 100 100 Oximetry 06/15/17 13:30 Temperature Pulse Rate 122 H Pulse Rate [ From Monitor] Respiratory 25 H Rate Blood Pressure 112/56 O2 Sat by Pulse 100 Oximetry General appearance: Present: no acute distress - EENT Eyes: EOM intact ENT: hearing intact - Neck Neck: supple - Respiratory Respiratory effort: other (On vent) Extremities: no ischemia (unable to palp pulse in bypass, but audible doppler signal), normal temperature Extremity abnormal: other (Wound vacs in place) - Neurologic Neurologic: no focal deficits - Psychiatric Psychiatric: appropriate mood/affect, intact judgment & insight, cooperative - Labs CBC & Chem 7: 06/15/17 06:15 06/15/17 06:15 Labs: Abnormal lab results 06/14/17 06/14/17 06/14/17 Range/Units 14:31 16:45 19:34 WBC 14.0 H (4.5-11.0) K/mm3 RBC 3.61 L (3.65-5.03) M/mm3 Hgb 10.9 L (11.8-15.2) gm/dl Hct 32.8 L D (35.5-45.6) % RDW 15.8 H (13.2-15.2) % Plt Count (140-440) K/mm3 POC ABG pH (7.35-7.45) POC ABG pCO2 (35-45) POC ABG pO2 (80-105) Sodium (137-145) mmol/L Potassium (3.6-5.0) mmol/L Chloride (98-107) mmol/L Carbon Dioxide (22-30) mmol/L BUN (9-20) mg/dL Creatinine (0.8-1.5) mg/dL Glucose (75-100) mg/dL POC Glucose 235 H 296 H (70-105) Calcium (8.4-10.2) mg/dL Crossmatch 06/14/17 06/14/17 06/14/17 Range/Units 19:45 19:45 20:05 WBC 13.1 H (4.5-11.0) K/mm3 RBC 3.33 L (3.65-5.03) M/mm3 Hgb 9.9 L (11.8-15.2) gm/dl Hct 29.7 L (35.5-45.6) % RDW 15.7 H (13.2-15.2) % Plt Count 126 L (140-440) K/mm3 POC ABG pH 7.241 L (7.35-7.45) POC ABG pCO2 32.3 L (35-45) POC ABG pO2 550 H (80-105) Sodium 148 H (137-145) mmol/L Potassium 5.7 H D (3.6-5.0) mmol/L Chloride 108.5 H (98-107) mmol/L Carbon Dioxide 12 L (22-30) mmol/L BUN 29 H (9-20) mg/dL Creatinine 1.7 H (0.8-1.5) mg/dL Glucose 324 H (75-100) mg/dL POC Glucose (70-105) Calcium 7.9 L (8.4-10.2) mg/dL Crossmatch 06/14/17 06/14/17 06/15/17 Range/Units 21:53 23:06 02:08 WBC (4.5-11.0) K/mm3 RBC (3.65-5.03) M/mm3 Hgb (11.8-15.2) gm/dl Hct (35.5-45.6) % RDW (13.2-15.2) % Plt Count (140-440) K/mm3 POC ABG pH 7.298 L (7.35-7.45) POC ABG pCO2 26.8 L (35-45) POC ABG pO2 303 H (80-105) Sodium (137-145) mmol/L Potassium (3.6-5.0) mmol/L Chloride (98-107) mmol/L Carbon Dioxide (22-30) mmol/L BUN (9-20) mg/dL Creatinine (0.8-1.5) mg/dL Glucose (75-100) mg/dL POC Glucose 259 H 334 H (70-105) Calcium (8.4-10.2) mg/dL Crossmatch 06/15/17 06/15/17 06/15/17 Range/Units 06:15 06:15 06:54 WBC (4.5-11.0) K/mm3 RBC (3.65-5.03) M/mm3 Hgb 8.8 L (11.8-15.2) gm/dl Hct 26.4 L (35.5-45.6) % RDW (13.2-15.2) % Plt Count (140-440) K/mm3 POC ABG pH (7.35-7.45) POC ABG pCO2 34.4 L (35-45) POC ABG pO2 191 H (80-105) Sodium 151 H (137-145) mmol/L Potassium (3.6-5.0) mmol/L Chloride 114.7 H (98-107) mmol/L Carbon Dioxide 18 L (22-30) mmol/L BUN 29 H (9-20) mg/dL Creatinine 1.8 H (0.8-1.5) mg/dL Glucose 259 H (75-100) mg/dL POC Glucose (70-105) Calcium 7.7 L (8.4-10.2) mg/dL Crossmatch 06/15/17 Range/Units 11:35 WBC (4.5-11.0) K/mm3 RBC (3.65-5.03) M/mm3 Hgb (11.8-15.2) gm/dl Hct (35.5-45.6) % RDW (13.2-15.2) % Plt Count (140-440) K/mm3 POC ABG pH (7.35-7.45) POC ABG pCO2 (35-45) POC ABG pO2 (80-105) Sodium (137-145) mmol/L Potassium (3.6-5.0) mmol/L Chloride (98-107) mmol/L Carbon Dioxide (22-30) mmol/L BUN (9-20) mg/dL Creatinine (0.8-1.5) mg/dL Glucose (75-100) mg/dL POC Glucose (70-105) Calcium (8.4-10.2) mg/dL Crossmatch See Detail
[2017-06-15] MEDS ORDERED: TYLENOL PR ONE (15:30)
--- NOTE | 2017-06-15 15:39 | Progress Note ---
Assessment and Plan Patient is a 76 year old male with hx of PAD, S/P multiple vascular surgeries including a TMA with a wound VAC that malfunctioned leading to blood loss S/p re-do bypass, as the distal portion of the bypass felt to be infected. Bypass tissue friable and would not hold repair sutures. Arm vein harvested and distal portion bypassed around to lower portion of the INSPECTOR RUBBER STAMP DIE. Patient also has history of CAD CABG more than many years ago, ischemic cardiomyopathy hypertension diabetes hyperlipidemia with last known ejection fraction of 40-45% Presents to correction with hypotension, fever. With no improvement despite multiple fluid suspicion was placed on pressors in the ER, admitted to the hospital. -Septic shock w/possible hemorrhagic shock -Infected hematoma of the left femoral; hematoma and infected left femoral tibial graft s/p revision of the same 06/14/17 -Acute blood loss anemia -Uncontrolled diabetes mellitus -CAD s/p CABG -Tacycardia with PVC -Diabetic wound -Hyperkalemia - imporved -S/P Partial foot amputation- Left -S/P wound vac to left medical surgical laceration site -Severe PAD PLAN * S/p Revisoop of left Popliteal * Continue supportive care, discussed with meat cutter apprentice, Vascular surgery, ED and patients family * S/P 5 units PRBC, Monitor h/h, Transfuse as needed * Repeat Stat Lactate, * Continue IV abx, wound cultures, blood cultures, ID consult * Follow up recs from vascular surgery * Wound care consult when ok With Vascular * Cardiology consult and monitor Electrolytes * Accucheck Q1hr. On insulin drip * Called Pt's Daughter, Valentin. No response. Left a messageDiscussed extensively with family and Patient- He is a DNR/DNI * DVT/GI prophy Subjective Date of service: 06/15/17 Principal diagnosis: Septic shock Interval history: Intubated. Sedated and still vent supported Objective - Constitutional Vitals: Vital Signs - 12hr 06/15/17 06/15/17 06/15/17 03:41 03:51 04:00 Temperature 100.5 F H Pulse Rate 116 H 117 H 115 H Pulse Rate [ 115 H From Monitor] Respiratory 22 23 19 Rate Blood Pressure 108/49 100/48 100/49 O2 Sat by Pulse 100 100 100 Oximetry 06/15/17 06/15/17 06/15/17 04:02 04:11 04:21 Temperature Pulse Rate 116 H 115 H 117 H Pulse Rate [ From Monitor] Respiratory 16 24 Rate Blood Pressure 100/48 100/49 104/53 O2 Sat by Pulse 100 100 100 Oximetry 06/15/17 06/15/17 06/15/17 04:30 04:41 04:51 Temperature Pulse Rate 116 H 116 H 115 H Pulse Rate [ From Monitor] Respiratory 23 21 24 Rate Blood Pressure 94/51 104/53 106/50 O2 Sat by Pulse 100 100 100 Oximetry 06/15/17 06/15/17 06/15/17 05:00 05:11 05:21 Temperature Pulse Rate 115 H 114 H 115 H Pulse Rate [ From Monitor] Respiratory 23 24 24 Rate Blood Pressure 100/49 94/51 108/53 O2 Sat by Pulse 100 100 100 Oximetry 06/15/17 06/15/17 06/15/17 05:30 05:41 05:51 Temperature Pulse Rate 115 H 116 H 116 H Pulse Rate [ From Monitor] Respiratory 24 22 23 Rate Blood Pressure 106/54 106/54 100/48 O2 Sat by Pulse 100 100 100 Oximetry 06/15/17 06/15/17 06/15/17 06:00 06:11 06:21 Temperature Pulse Rate 116 H 117 H 118 H Pulse Rate [ From Monitor] Respiratory 24 25 H 25 H Rate Blood Pressure 111/49 111/49 91/50 O2 Sat by Pulse 100 100 100 Oximetry 06/15/17 06/15/17 06/15/17 06:30 06:41 06:51 Temperature Pulse Rate 119 H 118 H 115 H Pulse Rate [ From Monitor] Respiratory 21 30 H 23 Rate Blood Pressure 94/47 95/50 103/53 O2 Sat by Pulse 100 100 100 Oximetry 06/15/17 06/15/17 06/15/17 07:00 07:11 07:21 Temperature Pulse Rate 118 H 119 H 120 H Pulse Rate [ From Monitor] Respiratory 24 23 20 Rate Blood Pressure 105/46 102/48 105/50 O2 Sat by Pulse 100 100 100 Oximetry 06/15/17 06/15/17 06/15/17 07:30 07:41 07:44 Temperature Pulse Rate 120 H 120 H Pulse Rate [ 118 H From Monitor] Respiratory 20 23 Rate Blood Pressure 109/50 109/50 O2 Sat by Pulse 100 100 100 Oximetry 06/15/17 06/15/17 06/15/17 07:51 07:53 08:00 Temperature 99.7 F H Pulse Rate 123 H 122 H Pulse Rate [ From Monitor] Respiratory 22 21 Rate Blood Pressure 112/52 112/53 O2 Sat by Pulse 100 100 Oximetry 06/15/17 06/15/17 06/15/17 08:11 08:15 08:21 Temperature Pulse Rate 122 H 123 H 124 H Pulse Rate [ From Monitor] Respiratory 20 23 Rate Blood Pressure 112/53 112/53 117/53 O2 Sat by Pulse 100 100 100 Oximetry 06/15/17 06/15/17 06/15/17 08:30 08:41 08:51 Temperature Pulse Rate 124 H 124 H 124 H Pulse Rate [ From Monitor] Respiratory 21 21 25 H Rate Blood Pressure 127/55 127/55 123/56 O2 Sat by Pulse 100 100 100 Oximetry 06/15/17 06/15/17 06/15/17 09:00 09:11 09:21 Temperature Pulse Rate 124 H 123 H 124 H Pulse Rate [ From Monitor] Respiratory 23 22 22 Rate Blood Pressure 126/57 126/57 121/60 O2 Sat by Pulse 100 100 100 Oximetry 06/15/17 06/15/17 06/15/17 09:30 09:41 09:51 Temperature Pulse Rate 124 H 125 H 123 H Pulse Rate [ From Monitor] Respiratory 24 21 24 Rate Blood Pressure 112/63 112/63 116/60 O2 Sat by Pulse 100 100 100 Oximetry 06/15/17 06/15/17 06/15/17 10:00 10:11 10:21 Temperature Pulse Rate 124 H 124 H 126 H Pulse Rate [ 125 H From Monitor] Respiratory 21 22 24 Rate Blood Pressure 117/57 117/57 123/59 O2 Sat by Pulse 100 100 100 Oximetry 06/15/17 06/15/17 06/15/17 10:30 10:41 10:51 Temperature Pulse Rate 125 H 123 H 124 H Pulse Rate [ From Monitor] Respiratory 21 23 23 Rate Blood Pressure 119/54 119/54 115/60 O2 Sat by Pulse 100 100 100 Oximetry 06/15/17 06/15/17 06/15/17 11:00 11:07 11:11 Temperature Pulse Rate 124 H 124 H 123 H Pulse Rate [ From Monitor] Respiratory 17 20 26 H Rate Blood Pressure 114/55 115/60 114/55 O2 Sat by Pulse 100 100 100 Oximetry 06/15/17 06/15/17 06/15/17 11:21 11:30 11:41 Temperature Pulse Rate 123 H 121 H 123 H Pulse Rate [ From Monitor] Respiratory 22 24 28 H Rate Blood Pressure 120/57 118/57 118/57 O2 Sat by Pulse 100 100 100 Oximetry 06/15/17 06/15/17 06/15/17 11:51 12:00 12:11 Temperature 100.4 F H Pulse Rate 121 H 124 H 127 H Pulse Rate [ From Monitor] Respiratory 39 H 32 H 26 H Rate Blood Pressure 120/55 115/52 115/52 O2 Sat by Pulse 100 100 100 Oximetry 06/15/17 06/15/17 06/15/17 12:21 12:30 12:41 Temperature Pulse Rate 126 H 123 H 125 H Pulse Rate [ From Monitor] Respiratory 27 H 27 H 29 H Rate Blood Pressure 115/52 125/48 125/48 O2 Sat by Pulse 100 100 100 Oximetry 06/15/17 06/15/17 06/15/17 12:49 12:51 13:00 Temperature Pulse Rate 124 H 125 H 125 H Pulse Rate [ From Monitor] Respiratory 29 H 30 H 28 H Rate Blood Pressure 125/48 124/54 120/54 O2 Sat by Pulse 100 100 100 Oximetry 06/15/17 06/15/17 06/15/17 13:11 13:21 13:30 Temperature Pulse Rate 126 H 122 H 122 H Pulse Rate [ From Monitor] Respiratory 24 27 H 25 H Rate Blood Pressure 120/54 120/54 112/56 O2 Sat by Pulse 100 100 100 Oximetry General appearance: Present: no acute distress, other (intubated) - EENT Eyes: PERRL, EOM intact - Neck Neck: supple, normal ROM - Respiratory Respiratory effort: normal Respiratory: bilateral: CTA - Cardiovascular Rhythm: regular Heart Sounds: Present: S1 & S2. Absent: gallop, rub Extremities: No edema Extremity abnormal: other (left leg with a wound vac and dry dressing on hte righ upper extrimitiy) - Gastrointestinal General gastrointestinal: Present: soft, non-tender, non-distended, normal bowel sounds - Integumentary Integumentary: clear, warm, dry - Musculoskeletal Musculoskeletal: 1, strength equal bilaterally - Neurologic Neurologic: moves all extremities - Psychiatric Psychiatric: appropriate mood/affect, intact judgment & insight - Labs CBC & Chem 7: 08/04/17 06:15 06/15/17 06:15 Labs: Abnormal lab results 06/14/17 06/14/17 06/14/17 Range/Units 14:31 16:45 19:34 WBC 14.0 H (4.5-11.0) K/mm3 RBC 3.61 L (3.65-5.03) M/mm3 Hgb 10.9 L (11.8-15.2) gm/dl Hct 32.8 L D (35.5-45.6) % RDW 15.8 H (13.2-15.2) % Plt Count (140-440) K/mm3 POC ABG pH (7.35-7.45) POC ABG pCO2 (35-45) POC ABG pO2 (80-105) Sodium (137-145) mmol/L Potassium (3.6-5.0) mmol/L Chloride (98-107) mmol/L Carbon Dioxide (22-30) mmol/L BUN (9-20) mg/dL Creatinine (0.8-1.5) mg/dL Glucose (75-100) mg/dL POC Glucose 235 H 296 H (70-105) Calcium (8.4-10.2) mg/dL Crossmatch 06/14/17 06/14/17 06/14/17 Range/Units 19:45 19:45 20:05 WBC 13.1 H (4.5-11.0) K/mm3 RBC 3.33 L (3.65-5.03) M/mm3 Hgb 9.9 L (11.8-15.2) gm/dl Hct 29.7 L (35.5-45.6) % RDW 15.7 H (13.2-15.2) % Plt Count 126 L (140-440) K/mm3 POC ABG pH 7.241 L (7.35-7.45) POC ABG pCO2 32.3 L (35-45) POC ABG pO2 550 H (80-105) Sodium 148 H (137-145) mmol/L Potassium 5.7 H D (3.6-5.0) mmol/L Chloride 108.5 H (98-107) mmol/L Carbon Dioxide 12 L (22-30) mmol/L BUN 29 H (9-20) mg/dL Creatinine 1.7 H (0.8-1.5) mg/dL Glucose 324 H (75-100) mg/dL POC Glucose (70-105) Calcium 7.9 L (8.4-10.2) mg/dL Crossmatch 06/14/17 06/14/17 06/15/17 Range/Units 21:53 23:06 02:08 WBC (4.5-11.0) K/mm3 RBC (3.65-5.03) M/mm3 Hgb (11.8-15.2) gm/dl Hct (35.5-45.6) % RDW (13.2-15.2) % Plt Count (140-440) K/mm3 POC ABG pH 7.298 L (7.35-7.45) POC ABG pCO2 26.8 L (35-45) POC ABG pO2 303 H (80-105) Sodium (137-145) mmol/L Potassium (3.6-5.0) mmol/L Chloride (98-107) mmol/L Carbon Dioxide (22-30) mmol/L BUN (9-20) mg/dL Creatinine (0.8-1.5) mg/dL Glucose (75-100) mg/dL POC Glucose 259 H 334 H (70-105) Calcium (8.4-10.2) mg/dL Crossmatch 06/15/17 06/15/17 06/15/17 Range/Units 06:15 06:15 06:54 WBC (4.5-11.0) K/mm3 RBC (3.65-5.03) M/mm3 Hgb 8.8 L (11.8-15.2) gm/dl Hct 26.4 L (35.5-45.6) % RDW (13.2-15.2) % Plt Count (140-440) K/mm3 POC ABG pH (7.35-7.45) POC ABG pCO2 34.4 L (35-45) POC ABG pO2 191 H (80-105) Sodium 151 H (137-145) mmol/L Potassium (3.6-5.0) mmol/L Chloride 114.7 H (98-107) mmol/L Carbon Dioxide 18 L (22-30) mmol/L BUN 29 H (9-20) mg/dL Creatinine 1.8 H (0.8-1.5) mg/dL Glucose 259 H (75-100) mg/dL POC Glucose (70-105) Calcium 7.7 L (8.4-10.2) mg/dL Crossmatch 06/15/17 Range/Units 11:35 WBC (4.5-11.0) K/mm3 RBC (3.65-5.03) M/mm3 Hgb (11.8-15.2) gm/dl Hct (35.5-45.6) % RDW (13.2-15.2) % Plt Count (140-440) K/mm3 POC ABG pH (7.35-7.45) POC ABG pCO2 (35-45) POC ABG pO2 (80-105) Sodium (137-145) mmol/L Potassium (3.6-5.0) mmol/L Chloride (98-107) mmol/L Carbon Dioxide (22-30) mmol/L BUN (9-20) mg/dL Creatinine (0.8-1.5) mg/dL Glucose (75-100) mg/dL POC Glucose (70-105) Calcium (8.4-10.2) mg/dL Crossmatch See Detail
--- NOTE | 2017-06-15 16:41 | Consultation ---
History of Present Illness - Reason for Consult Consult date: 06/15/17 Sepsis Requesting physician: LITZY HUIZAR - History of Present Illness Mr. Ma is a 76-year-old man with multiple medical problems, including DM2 and peripheral vascular disease, who is re-admitted with worsening of a left TMA stump wound and associated infection. He has severe peripheral vascular disease and underwent revascularization recently along with a left TMA. A wound vac was applied and he was discharged to a local correction for maintenance. The wound vac system failed and he was re-admitted for management of the wound with possible infection and revised left lower extremity by-pass using a right arm graft. Wound cultures are preliminarily showing growth of Gram negative bacilli. He is on empiric Vancomycin and Zosyn. He remains in the ICU on pressors. ID consultation is requested for management of sepsis. Past History Past Medical History: arthritis, CAD, diabetes, DVT (following knee surgery), hypertension, hyperlipidemia, PVD, other (glaucoma) Past Surgical History: CABG, PTCA, Other (Left hip fracture; right shoulder surgery; left knee arthroplasty; a left femoral endarterectomy with bovine pericardial patch angioplasty was performed. He was bypassed from this area to his posterior tibial artery using a in situ left greater saphenous vein graft. Balloon angioplasty and stent placement of his left external iliac artery was performed using an 8 x 10 viabahn stent graft; Ultrasound-guided access right common femoral artery, angiography, percutaneous mechanical thrombectomy of left femoral artery to posterior tibial artery bypass graft with a CAT 5 Penumbra Indigo catheter and AngioJet, percutaneous mechanical thrombectomy of the left posterior tibial artery, angioplasty left posterior tibial artery with a 3 x 1 20 balloon, angioplasty of the left femoral artery to posterior tibial artery using a 5 x 200 balloon, right femoral arteriotomy closure with an Angio- Seal; left open transmetatarsal amputation; evacuation left groin hematoma with excisional debridement of skin and muscle and soft tissue, sartorius flap coverage of the left M pop bypass, wound VAC placement of the left groin, I&D of the left calf hematoma with wound VAC placement;) Social history: Lives alone, other (retired [employer]). denies: smoking ( quit smoking in the 80s) Family history: no significant family history Medications and Allergies Allergies Allergy/AdvReac Type Severity Reaction Status Date / Time bismuth subsalicylate Allergy Vomiting Verified 06/07/17 11:27 castor oil Allergy Vomiting Verified 06/07/17 11:27 oxycodone HCl [From Percocet] Allergy Dizziness Verified 06/07/17 11:27 meperidine HCl [From Demerol] AdvReac COMBATIVENE Verified 06/07/17 11:27 SS morphine AdvReac Altered Verified 06/14/17 21:44 mental status propoxyphene napsylate AdvReac Dizziness Verified 06/07/17 11:27 [From Darvocet-N] NARCOTICS AdvReac COMBATIVENE Uncoded 06/07/17 11:27 SS Home Medications Medication Instructions Recorded Confirmed Last Taken Type Dorzolamide/Timolol/Pf [Cosopt Pf 2 drop INTRAOCULA Q12HR MDD 2 gtts 05/22/1606/07/17 History Eye Drops] Empagliflozin [Jardiance] 25 mg PO DAILY MDD 25mg 05/22/16 06/12/17 06/07/17 History B12/Levomefolate Calcium/B-6 1 tab PO DAILY #30 tablet 08/26/16 06/12/17 Rx [Foltx Tablet] Lisinopril [Zestril TAB] 40 mg PO QDAY #30 tablet 08/26/16 06/12/17 06/07/17 Rx Pregabalin [Lyrica] 100 mg PO DAILY #60 capsule 08/26/16 06/12/17 06/07/17 Rx Dabigatran [Pradaxa] 75 mg PO BID MDD 75mg 01/24/17 06/12/17 06/07/17 History Acetaminophen [Acetaminophen TAB] 650 mg PO Q4H PRN #30 tablet 02/02/1704/30/17 23:00 Rx 650mg Clopidogrel [Plavix] 75 mg PO QDAY tablet 05/26/17 06/12/17 06/07/17 Rx Metoprolol Xl [Metoprolol 50 mg PO QDAY tablet 05/26/17 06/12/17 06/07/17 Rx SUCCINATE ER TAB] HYDROcodone/APAP 5-325 [Cabot 2 each PO Q6H PRN #30 tablet 06/08/17 06/12/17 Unknown Rx 5-325 mg TAB] Ascorbic Acid [Vitamin C] 500 mg PO BID 06/12/17 06/12/17 Unknown History Cephalexin [Keflex] 500 mg PO QDAY 06/12/17 06/12/17 Unknown History Insulin Aspart Prot/Aspart(Nf) See Protocol SC QDAY 06/12/17 06/12/17 Unknown History [NovoLOG Mix 70/30 VIAL] Nitroglycerin [Nitrostat] 0.4 mg PO PRN PRN 06/12/17 06/12/17 Unknown History Polyethylene Glycol 3350 [Miralax 17 gm PO QDAY PRN 06/12/17 06/12/17 Unknown History 3350] Zinc Sulfate [Zinc Sulfate] 220 mg PO QDAY 06/12/17 06/12/17 Unknown History Active Meds: Active Medications Acetaminophen (Tylenol) 650 mg [place] Q4H PRN PRN Reason: Pain, Mild (1-3) Acetaminophen (Tylenol) 650 mg PO Q4H PRN PRN Reason: For Pain/Fever/Headache Acetaminophen/Hydrocodone Bitart (Cabot 5/325) 2 each PO Q6H PRN PRN Reason: Pain, Moderate (4-6) Dextrose (D50w (25gm)) 50 ml IV PRN PRN PRN Reason: Hypoglycemia Famotidine (Pepcid) 20 mg IV BID MARQUEZ Last Admin: 06/15/17 09:48 Dose: 20 mg Hydromorphone HCl (Dilaudid) 0.5 mg IV Q4H PRN PRN Reason: Pain , Severe (7-10) Hydrophilic Ointment (Vaseline Lip Therapy) 1 applic TP Q2HR PRN PRN Reason: Dry Lips Norepinephrine (Levophed Drip 4 Mg/Ns 250 Ml) 4 mg in 250 mls @ 7.5 mls/hr IV TITR MARQUEZ; 2 MCG/MIN PRN Reason: Protocol Last Titration: 06/15/17 16:27 Dose: 6 mcg/min, 22.5 mls/hr Midazolam HCl 100 mg/ Sodium (Chloride) 100 mls @ 1 mls/hr IV TITR MARQUEZ; 1 MG/HR PRN Reason: Protocol Last Titration: 06/14/17 22:00 Dose: 2 mg/hr, 2 mls/hr Piperacillin Sod/Tazobactam Sod (Zosyn/Ns 4.5gm/100ml) 4.5 gm in 100 mls @ 200 mls/hr IV Q8HR MARQUEZ PRN Reason: Protocol Last Admin: 06/15/17 13:45 Dose: 200 mls/hr Vancomycin HCl 1,500 mg/ (Sodium Chloride) 530 mls @ 333.333 mls/hr IV Q24H MARQUEZ Last Admin: 06/14/17 22:15 Dose: 333.333 mls/hr Insulin Human Regular 100 (units/ Sodium Chloride) 100 mls @ 1 mls/hr IV TITR MARQUEZ; 1 UNITS/HR PRN Reason: Protocol Last Titration: 06/15/17 16:31 Dose: 1 units/hr, 1 mls/hr Multi-Ingred Cream/Lotion/Oil/Oint (Artificial Tears Ophth Oint) 1 applic OU Q4HR PRN PRN Reason: Dry Eye(s) Naloxone HCl (Narcan 0.4 Mg/1 Ml) 0.1 mg IV Q2MIN PRN PRN Reason: Res Rate </= 8 or 02 SAT < 92% Ondansetron HCl (Zofran) 4 mg IV Q6H PRN PRN Reason: Nausea And Vomiting Sodium Chloride (Nacl 0.9% 500 Ml) 1 ml IV DIRECT MARQUEZ Review of Systems ROS unobtainable: due to endotracheal tube Physical Examination - Constitutional Vitals: Vital Signs Temp Pulse Resp BP Pulse Ox 98.6 F 124 H 21 115/56 99 06/15/17 16:00 06/15/17 16:06 06/15/17 16:06 06/15/17 15:51 06/15/17 16:06 Temperature -Last 24 Hours Temperature 98.6 F Temperature 98.6 F Temperature 98.2 F Temperature 100.4 F Temperature 99.7 F Temperature 100.5 F Temperature 98.9 F Temperature 97.5 F General appearance: Present: well-nourished, other (intubated, FiO2 30%; Levophed 8 mcg) - EENT ENT: other (ET tube in place) - Respiratory Respiratory effort: normal Respiratory: bilateral: CTA - Cardiovascular Rhythm: irregularly irregular - Extremities Extremity abnormal: edema (right arm with dressing over previous incisions; left TMA stump with wound vac in place and extending along medial aspect of left leg) - Abdominal General gastrointestinal: Present: soft, non-tender, non-distended, hypoactive bowel sounds - Integumentary Integumentary: Absent: jaundice, rash - Neurologic Neurologic: other (sedated) Results - Labs CBC & Chem 7: 06/15/17 06:15 06/15/17 06:15 Labs: Abnormal lab results 06/14/17 06/14/17 06/14/17 Range/Units 14:31 16:45 19:34 WBC 14.0 H (4.5-11.0) K/mm3 RBC 3.61 L (3.65-5.03) M/mm3 Hgb 10.9 L (11.8-15.2) gm/dl Hct 32.8 L D (35.5-45.6) % RDW 15.8 H (13.2-15.2) % Plt Count (140-440) K/mm3 POC ABG pH (7.35-7.45) POC ABG pCO2 (35-45) POC ABG pO2 (80-105) Sodium (137-145) mmol/L Potassium (3.6-5.0) mmol/L Chloride (98-107) mmol/L Carbon Dioxide (22-30) mmol/L BUN (9-20) mg/dL Creatinine (0.8-1.5) mg/dL Glucose (75-100) mg/dL POC Glucose 235 H 296 H (70-105) Calcium (8.4-10.2) mg/dL Crossmatch 06/14/17 06/14/17 06/14/17 Range/Units 19:45 19:45 20:05 WBC 13.1 H (4.5-11.0) K/mm3 RBC 3.33 L (3.65-5.03) M/mm3 Hgb 9.9 L (11.8-15.2) gm/dl Hct 29.7 L (35.5-45.6) % RDW 15.7 H (13.2-15.2) % Plt Count 126 L (140-440) K/mm3 POC ABG pH 7.241 L (7.35-7.45) POC ABG pCO2 32.3 L (35-45) POC ABG pO2 550 H (80-105) Sodium 148 H (137-145) mmol/L Potassium 5.7 H D (3.6-5.0) mmol/L Chloride 108.5 H (98-107) mmol/L Carbon Dioxide 12 L (22-30) mmol/L BUN 29 H (9-20) mg/dL Creatinine 1.7 H (0.8-1.5) mg/dL Glucose 324 H (75-100) mg/dL POC Glucose (70-105) Calcium 7.9 L (8.4-10.2) mg/dL Crossmatch 06/14/17 06/14/17 06/15/17 Range/Units 21:53 23:06 02:08 WBC (4.5-11.0) K/mm3 RBC (3.65-5.03) M/mm3 Hgb (11.8-15.2) gm/dl Hct (35.5-45.6) % RDW (13.2-15.2) % Plt Count (140-440) K/mm3 POC ABG pH 7.298 L (7.35-7.45) POC ABG pCO2 26.8 L (35-45) POC ABG pO2 303 H (80-105) Sodium (137-145) mmol/L Potassium (3.6-5.0) mmol/L Chloride (98-107) mmol/L Carbon Dioxide (22-30) mmol/L BUN (9-20) mg/dL Creatinine (0.8-1.5) mg/dL Glucose (75-100) mg/dL POC Glucose 259 H 334 H (70-105) Calcium (8.4-10.2) mg/dL Crossmatch 06/15/17 06/15/17 06/15/17 Range/Units 06:15 06:15 06:54 WBC (4.5-11.0) K/mm3 RBC (3.65-5.03) M/mm3 Hgb 8.8 L (11.8-15.2) gm/dl Hct 26.4 L (35.5-45.6) % RDW (13.2-15.2) % Plt Count (140-440) K/mm3 POC ABG pH (7.35-7.45) POC ABG pCO2 34.4 L (35-45) POC ABG pO2 191 H (80-105) Sodium 151 H (137-145) mmol/L Potassium (3.6-5.0) mmol/L Chloride 114.7 H (98-107) mmol/L Carbon Dioxide 18 L (22-30) mmol/L BUN 29 H (9-20) mg/dL Creatinine 1.8 H (0.8-1.5) mg/dL Glucose 259 H (75-100) mg/dL POC Glucose (70-105) Calcium 7.7 L (8.4-10.2) mg/dL Crossmatch 06/15/17 Range/Units 11:35 WBC (4.5-11.0) K/mm3 RBC (3.65-5.03) M/mm3 Hgb (11.8-15.2) gm/dl Hct (35.5-45.6) % RDW (13.2-15.2) % Plt Count (140-440) K/mm3 POC ABG pH (7.35-7.45) POC ABG pCO2 (35-45) POC ABG pO2 (80-105) Sodium (137-145) mmol/L Potassium (3.6-5.0) mmol/L Chloride (98-107) mmol/L Carbon Dioxide (22-30) mmol/L BUN (9-20) mg/dL Creatinine (0.8-1.5) mg/dL Glucose (75-100) mg/dL POC Glucose (70-105) Calcium (8.4-10.2) mg/dL Crossmatch See Detail Microbiology 06/12/17 18:17 Peripheral/Venous Blood Culture - Preliminary NO GROWTH AFTER 48 HOURS 06/14/17 Unknown Leg - Left Surgical Culture - Preliminary 06/14/17 Unknown Leg - Left Surgical Biopsy Culture - Preliminary 06/12/17 19:35 Peripheral/Venous Blood Culture - Preliminary NO GROWTH AFTER 48 HOURS 06/12/17 19:11 Urine,Catheterized - Cytoscopic/Bilateral Urine Culture - Final NO GROWTH AFTER 48 HOURS - Imaging and Cardiology Chest x-ray: report reviewed (no acute cardiopulmonary process) Assessment and Plan - Patient Problems (1) Sepsis Current Visit: Yes Status: Acute Qualifiers: Sepsis type: sepsis due to unspecified organism Qualified Code(s): A41.9 - Sepsis, unspecified organism Plan to address problem: 1. Will change Zosyn to Meropenem pending further culture data. Keep Vancomycin also. 2. Will repeat blood culture if poor reponse to Meropenem. 3. Follow results of tissue cultures, etc. (2) PAD (peripheral artery disease) Onset Date: 08/22/16 Current Visit: No Status: Chronic
[2017-06-15] MEDS: MERREM 1,000 MG in NACL 0.9% 100 ML IV SCH (19:22)
[2017-06-15] MEDS: TYLENOL PR PRN (20:40)
[2017-06-15] MEDS: DILAUDID IV PRN (20:40)
[2017-06-15] MEDS ORDERED: DILAUDID IV ONE (21:42)
[2017-06-15] MEDS: VANCOMYCIN 1,500 MG in NACL 0.9% 500 ML 500 ML IV SCH (22:57)
[2017-06-16] MEDS: MERREM 1,000 MG in NACL 0.9% 100 ML IV SCH ×3 (01:19→17:41)
[2017-06-16] MEDS: LEVOPHED DRIP 4 MG/NS 250 ML 4 MG/250 ML BAG IV SCH (01:20)
[2017-06-16] MEDS: DILAUDID IV PRN ×3 (03:33→17:28)
[2017-06-16 06:54] LABS: Hematocrit 29.1 % (35.5-45.6); Hemoglobin 9.8 gm/dl (11.8-15.2); Mean Corpuscular HGB Conc 34 % (32-34); Mean Corpuscular Hemoglobin 30 pg (28-32); Mean Corpuscular Volume 89 fl (84-94); Platelet Count 117 K/mm3 (140-440); Red Blood Count 3.28 M/mm3 (3.65-5.03); Red Cell Distribution Width 15.7 % (13.2-15.2); White Blood Count 14.7 K/mm3 (4.5-11.0)
[2017-06-16 07:12] LABS: Albumin 2.4 g/dL (3.9-5); Albumin/Globulin Ratio 0.8 %; BUN/Creatinine Ratio 14.66; Bilirubin,Total 0.6 mg/dL (0.1-1.2); Calcium 7.9 mg/dL (8.4-10.2); Chloride 117.9 mmol/L (98-107); Potassium 4.1 mmol/L (3.6-5.0); Total Protein 5.4 g/dL (6.3-8.2)
[2017-06-16] MEDS: TYLENOL PR PRN (07:34)
[2017-06-16 09:05] LABS: Blastocytes % (Manual) 0 %
[2017-06-16 09:06] LABS: Eosinophils % (Manual) 0 % (0.0-4.3)
[2017-06-16 09:07] LABS: Anisocytosis 2+; Platelet Estimate Consistent w Auto
[2017-06-16 09:08] LABS: Diff Status Complete
--- NOTE | 2017-06-16 09:23 | XRay Report ---
AP CHEST :06/16/17 01:55 CLINICAL: Intubated.Follow up respiratory failure. COMPARISON:The previous day. FINDINGS: The endotracheal tube is in satisfactory position. Right IJ catheter tip is in the SVC. Normal heart and pulmonary vessels. Mild right basal subsegmental atelectasis. The lungs are otherwise clear. No pneumothorax. IMPRESSION: No congestive heart failure or pneumonia.
[2017-06-16] MEDS: PEPCID IV SCH ×2 (09:33→21:54)
--- NOTE | 2017-06-16 09:46 | Progress Note ---
Assessment and Plan Patient with extensive left lower extremity revascularization, nonviable musculature in the lower leg noted at time of surgery. Patient may ultimately require an amputation. This may be expedited if the patient's bypass graft fails to maintain patency. Continue supportive care. Subjective Date of service: 06/16/17 Principal diagnosis: Septic shock Interval history: Patient status post extensive revascularization of the left leg. Wound vacs in place. His left leg is warm to the foot and [place] on the foot. Patient is still mildly tachycardic. Spontaneous movement in all 4 extremities. The patient is developing anasarca. Not currently sedated. He remains intubated and on a pressor. Objective - Constitutional Vitals: Vital Signs - 12hr 06/15/17 06/15/17 06/15/17 21:50 22:00 22:10 Temperature Pulse Rate 121 H 122 H 109 H Respiratory 18 18 18 Rate Blood Pressure 113/55 115/59 115/59 O2 Sat by Pulse 100 100 100 Oximetry 06/15/17 06/15/17 06/15/17 22:20 22:30 22:40 Temperature Pulse Rate 114 H 112 H 119 H Respiratory 20 18 21 Rate Blood Pressure 111/55 101/50 101/50 O2 Sat by Pulse 100 100 100 Oximetry 06/15/17 06/15/17 06/15/17 22:50 23:00 23:10 Temperature Pulse Rate 120 H 98 H 121 H Respiratory 19 16 16 Rate Blood Pressure 105/60 90/39 90/39 O2 Sat by Pulse 100 100 100 Oximetry 06/15/17 06/15/17 06/15/17 23:20 23:30 23:32 Temperature Pulse Rate 121 H 95 H 121 H Respiratory 16 16 16 Rate Blood Pressure 85/47 94/44 94/44 O2 Sat by Pulse 100 100 100 Oximetry 06/15/17 06/15/17 06/16/17 23:40 23:50 00:00 Temperature 103.1 F H Pulse Rate 113 H 113 H 114 H Respiratory 16 16 16 Rate Blood Pressure 94/44 94/50 98/52 O2 Sat by Pulse 100 100 100 Oximetry 06/16/17 06/16/17 06/16/17 00:06 00:10 00:20 Temperature Pulse Rate 119 H 113 H 114 H Respiratory 16 16 Rate Blood Pressure 85/47 98/52 100/54 O2 Sat by Pulse 100 100 100 Oximetry 06/16/17 06/16/17 06/16/17 00:30 00:40 00:50 Temperature Pulse Rate 113 H 113 H 112 H Respiratory 16 16 16 Rate Blood Pressure 97/54 98/52 101/54 O2 Sat by Pulse 100 100 100 Oximetry 06/16/17 06/16/17 06/16/17 01:00 01:10 01:20 Temperature Pulse Rate 96 H 113 H 113 H Respiratory 16 16 16 Rate Blood Pressure 100/51 101/54 97/55 O2 Sat by Pulse 100 100 100 Oximetry 06/16/17 06/16/17 06/16/17 01:30 01:40 01:50 Temperature Pulse Rate 117 H 113 H 112 H Respiratory 16 16 16 Rate Blood Pressure 96/54 96/54 97/53 O2 Sat by Pulse 100 100 100 Oximetry 06/16/17 06/16/17 06/16/17 02:00 02:10 02:20 Temperature Pulse Rate 114 H 112 H 115 H Respiratory 16 16 16 Rate Blood Pressure 99/56 99/56 101/53 O2 Sat by Pulse 100 100 100 Oximetry 06/16/17 06/16/17 06/16/17 02:30 02:40 02:50 Temperature Pulse Rate 114 H 114 H 113 H Respiratory 16 16 16 Rate Blood Pressure 100/53 100/53 100/55 O2 Sat by Pulse 100 100 100 Oximetry 06/16/17 06/16/17 06/16/17 03:00 03:10 03:20 Temperature Pulse Rate 112 H 123 H 125 H Respiratory 16 18 16 Rate Blood Pressure 104/57 104/57 126/68 O2 Sat by Pulse 100 100 100 Oximetry 06/16/17 06/16/17 06/16/17 03:30 03:40 03:50 Temperature Pulse Rate 115 H 100 H 114 H Respiratory 16 16 16 Rate Blood Pressure 101/54 101/54 100/54 O2 Sat by Pulse 100 100 100 Oximetry 06/16/17 06/16/17 06/16/17 04:00 04:10 04:20 Temperature 101.7 F H Pulse Rate 114 H 114 H 113 H Respiratory 16 16 16 Rate Blood Pressure 106/57 106/57 102/60 O2 Sat by Pulse 100 100 100 Oximetry 06/16/17 06/16/17 06/16/17 04:30 04:40 04:50 Temperature Pulse Rate 115 H 114 H 114 H Respiratory 16 16 16 Rate Blood Pressure 101/60 101/60 107/61 O2 Sat by Pulse 100 100 100 Oximetry 06/16/17 06/16/17 06/16/17 04:54 05:00 05:10 Temperature Pulse Rate 115 H 114 H 126 H Respiratory 18 17 Rate Blood Pressure 107/61 128/74 128/74 O2 Sat by Pulse 100 100 98 Oximetry 06/16/17 06/16/17 06/16/17 05:20 05:30 05:40 Temperature Pulse Rate 124 H 126 H 126 H Respiratory 17 16 16 Rate Blood Pressure 134/75 131/72 134/75 O2 Sat by Pulse 99 99 98 Oximetry 06/16/17 06/16/17 06/16/17 05:50 06:00 06:10 Temperature Pulse Rate 125 H 127 H 126 H Respiratory 16 16 16 Rate Blood Pressure 132/70 123/66 132/70 O2 Sat by Pulse 99 98 100 Oximetry 06/16/17 06/16/17 06/16/17 06:20 06:30 06:40 Temperature Pulse Rate 120 H 117 H 123 H Respiratory 17 15 15 Rate Blood Pressure 123/66 107/56 107/56 O2 Sat by Pulse 100 100 100 Oximetry 06/16/17 06/16/17 06/16/17 07:00 07:15 07:30 Temperature Pulse Rate 122 H 125 H 120 H Respiratory 11 L 11 L 14 Rate Blood Pressure 115/59 118/63 114/67 O2 Sat by Pulse 100 100 100 Oximetry 06/16/17 06/16/17 06/16/17 07:45 08:00 08:15 Temperature 97.5 F L Pulse Rate 123 H 122 H 121 H Respiratory 16 12 14 Rate Blood Pressure 117/66 124/64 120/67 O2 Sat by Pulse 100 100 100 Oximetry General appearance: Present: no acute distress, other (intubated) - Neck Neck: supple - Respiratory Respiratory effort: other (intubated) - Breasts Breasts: deferred - Cardiovascular Rhythm: other (tachycardic) Extremities: abnormal (per HPI) - Gastrointestinal General gastrointestinal: Present: deferred Rectal Exam: deferred - Genitourinary Male genitourinary: deferred - Neurologic Neurologic: moves all extremities - Labs CBC & Chem 7: 06/16/17 06:25 06/16/17 06:25 Labs: Abnormal lab results 06/15/17 06/15/17 06/15/17 Range/Units 06:00 09:32 11:35 WBC (4.5-11.0) K/mm3 RBC (3.65-5.03) M/mm3 Hgb (11.8-15.2) gm/dl Hct (35.5-45.6) % RDW (13.2-15.2) % Plt Count (140-440) K/mm3 Seg Neuts % (Manual) (40.0-70.0) % Lymphocytes % (Manual) (13.4-35.0) % Monocytes % (Manual) (0.0-7.3) % Seg Neutrophils # Man (1.8-7.7) K/mm3 Lymphocytes # (Manual) (1.2-5.4) K/mm3 Monocytes # (Manual) (0.0-0.8) K/mm3 Sodium (137-145) mmol/L Chloride (98-107) mmol/L BUN (9-20) mg/dL Glucose (75-100) mg/dL POC Glucose 233 H 229 H (70-105) Calcium (8.4-10.2) mg/dL AST (5-40) units/L Total Protein (6.3-8.2) g/dL Albumin (3.9-5) g/dL Crossmatch See Detail 06/15/17 06/15/17 06/15/17 Range/Units 12:32 13:36 14:30 WBC (4.5-11.0) K/mm3 RBC (3.65-5.03) M/mm3 Hgb (11.8-15.2) gm/dl Hct (35.5-45.6) % RDW (13.2-15.2) % Plt Count (140-440) K/mm3 Seg Neuts % (Manual) (40.0-70.0) % Lymphocytes % (Manual) (13.4-35.0) % Monocytes % (Manual) (0.0-7.3) % Seg Neutrophils # Man (1.8-7.7) K/mm3 Lymphocytes # (Manual) (1.2-5.4) K/mm3 Monocytes # (Manual) (0.0-0.8) K/mm3 Sodium (137-145) mmol/L Chloride (98-107) mmol/L BUN (9-20) mg/dL Glucose (75-100) mg/dL POC Glucose 202 H 189 H 142 H (70-105) Calcium (8.4-10.2) mg/dL AST (5-40) units/L Total Protein (6.3-8.2) g/dL Albumin (3.9-5) g/dL Crossmatch 06/15/17 06/15/17 06/15/17 Range/Units 15:32 16:28 17:36 WBC (4.5-11.0) K/mm3 RBC (3.65-5.03) M/mm3 Hgb (11.8-15.2) gm/dl Hct (35.5-45.6) % RDW (13.2-15.2) % Plt Count (140-440) K/mm3 Seg Neuts % (Manual) (40.0-70.0) % Lymphocytes % (Manual) (13.4-35.0) % Monocytes % (Manual) (0.0-7.3) % Seg Neutrophils # Man (1.8-7.7) K/mm3 Lymphocytes # (Manual) (1.2-5.4) K/mm3 Monocytes # (Manual) (0.0-0.8) K/mm3 Sodium (137-145) mmol/L Chloride (98-107) mmol/L BUN (9-20) mg/dL Glucose (75-100) mg/dL POC Glucose 106 H 119 H 121 H (70-105) Calcium (8.4-10.2) mg/dL AST (5-40) units/L Total Protein (6.3-8.2) g/dL Albumin (3.9-5) g/dL Crossmatch 06/15/17 06/15/17 06/15/17 Range/Units 19:30 20:51 21:42 WBC (4.5-11.0) K/mm3 RBC (3.65-5.03) M/mm3 Hgb (11.8-15.2) gm/dl Hct (35.5-45.6) % RDW (13.2-15.2) % Plt Count (140-440) K/mm3 Seg Neuts % (Manual) (40.0-70.0) % Lymphocytes % (Manual) (13.4-35.0) % Monocytes % (Manual) (0.0-7.3) % Seg Neutrophils # Man (1.8-7.7) K/mm3 Lymphocytes # (Manual) (1.2-5.4) K/mm3 Monocytes # (Manual) (0.0-0.8) K/mm3 Sodium (137-145) mmol/L Chloride (98-107) mmol/L BUN (9-20) mg/dL Glucose (75-100) mg/dL POC Glucose 109 H 112 H 122 H (70-105) Calcium (8.4-10.2) mg/dL AST (5-40) units/L Total Protein (6.3-8.2) g/dL Albumin (3.9-5) g/dL Crossmatch 06/15/17 06/16/17 06/16/17 Range/Units 23:27 01:11 02:03 WBC (4.5-11.0) K/mm3 RBC (3.65-5.03) M/mm3 Hgb (11.8-15.2) gm/dl Hct (35.5-45.6) % RDW (13.2-15.2) % Plt Count (140-440) K/mm3 Seg Neuts % (Manual) (40.0-70.0) % Lymphocytes % (Manual) (13.4-35.0) % Monocytes % (Manual) (0.0-7.3) % Seg Neutrophils # Man (1.8-7.7) K/mm3 Lymphocytes # (Manual) (1.2-5.4) K/mm3 Monocytes # (Manual) (0.0-0.8) K/mm3 Sodium (137-145) mmol/L Chloride (98-107) mmol/L BUN (9-20) mg/dL Glucose (75-100) mg/dL POC Glucose 142 H 162 H 117 H (70-105) Calcium (8.4-10.2) mg/dL AST (5-40) units/L Total Protein (6.3-8.2) g/dL Albumin (3.9-5) g/dL Crossmatch 06/16/17 06/16/17 06/16/17 Range/Units 02:57 04:05 05:09 WBC (4.5-11.0) K/mm3 RBC (3.65-5.03) M/mm3 Hgb (11.8-15.2) gm/dl Hct (35.5-45.6) % RDW (13.2-15.2) % Plt Count (140-440) K/mm3 Seg Neuts % (Manual) (40.0-70.0) % Lymphocytes % (Manual) (13.4-35.0) % Monocytes % (Manual) (0.0-7.3) % Seg Neutrophils # Man (1.8-7.7) K/mm3 Lymphocytes # (Manual) (1.2-5.4) K/mm3 Monocytes # (Manual) (0.0-0.8) K/mm3 Sodium (137-145) mmol/L Chloride (98-107) mmol/L BUN (9-20) mg/dL Glucose (75-100) mg/dL POC Glucose 106 H 108 H 114 H (70-105) Calcium (8.4-10.2) mg/dL AST (5-40) units/L Total Protein (6.3-8.2) g/dL Albumin (3.9-5) g/dL Crossmatch 06/16/17 06/16/17 06/16/17 Range/Units 05:23 06:03 06:25 WBC 14.7 H (4.5-11.0) K/mm3 RBC 3.28 L (3.65-5.03) M/mm3 Hgb 9.8 L (11.8-15.2) gm/dl Hct 29.1 L (35.5-45.6) % RDW 15.7 H (13.2-15.2) % Plt Count 117 L (140-440) K/mm3 Seg Neuts % (Manual) 81.0 H (40.0-70.0) % Lymphocytes % (Manual) 3.0 L (13.4-35.0) % Monocytes % (Manual) 15.0 H (0.0-7.3) % Seg Neutrophils # Man 11.9 H (1.8-7.7) K/mm3 Lymphocytes # (Manual) 0.4 L (1.2-5.4) K/mm3 Monocytes # (Manual) 2.2 H (0.0-0.8) K/mm3 Sodium (137-145) mmol/L Chloride (98-107) mmol/L BUN (9-20) mg/dL Glucose (75-100) mg/dL POC Glucose 125 H 138 H (70-105) Calcium (8.4-10.2) mg/dL AST (5-40) units/L Total Protein (6.3-8.2) g/dL Albumin (3.9-5) g/dL Crossmatch 06/16/17 Range/Units 06:25 WBC (4.5-11.0) K/mm3 RBC (3.65-5.03) M/mm3 Hgb (11.8-15.2) gm/dl Hct (35.5-45.6) % RDW (13.2-15.2) % Plt Count (140-440) K/mm3 Seg Neuts % (Manual) (40.0-70.0) % Lymphocytes % (Manual) (13.4-35.0) % Monocytes % (Manual) (0.0-7.3) % Seg Neutrophils # Man (1.8-7.7) K/mm3 Lymphocytes # (Manual) (1.2-5.4) K/mm3 Monocytes # (Manual) (0.0-0.8) K/mm3 Sodium 155 H (137-145) mmol/L Chloride 117.9 H (98-107) mmol/L BUN 22 H (9-20) mg/dL Glucose 107 H (75-100) mg/dL POC Glucose (70-105) Calcium 7.9 L (8.4-10.2) mg/dL AST 57 H (5-40) units/L Total Protein 5.4 L (6.3-8.2) g/dL Albumin 2.4 L (3.9-5) g/dL Crossmatch
--- NOTE | 2017-06-16 09:55 | Progress Note ---
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 S/P wound vac to left medical surgical laceration site Severe PAD Recommendations: Wean levophed as tolerated Supportive care per ICU and primary team Subjective Date of service: 06/16/17 Principal diagnosis: Septic shock Interval history: No significant change in clinical status Objective Vital Signs Temp Pulse Pulse Resp BP Pulse Ox 06/16/17 08:15 121 H 14 120/67 100 06/16/17 08:00 97.5 F L 122 H 12 124/64 100 06/16/17 07:45 123 H 16 117/66 100 06/16/17 07:30 120 H 14 114/67 100 06/16/17 07:15 125 H 11 L 118/63 100 06/16/17 07:00 122 H 11 L 115/59 100 06/16/17 06:40 123 H 15 107/56 100 06/16/17 06:30 117 H 15 107/56 100 06/16/17 06:20 120 H 17 123/66 100 06/16/17 06:10 126 H 16 132/70 100 06/16/17 06:00 127 H 16 123/66 98 06/16/17 05:50 125 H 16 132/70 99 06/16/17 05:40 126 H 16 134/75 98 06/16/17 05:30 126 H 16 131/72 99 06/16/17 05:20 124 H 17 134/75 99 06/16/17 05:10 126 H 17 128/74 98 06/16/17 05:00 114 H 18 128/74 100 06/16/17 04:54 115 H 107/61 100 06/16/17 04:50 114 H 16 107/61 100 06/16/17 04:40 114 H 16 101/60 100 06/16/17 04:30 115 H 16 101/60 100 06/16/17 04:20 113 H 16 102/60 100 06/16/17 04:10 114 H 16 106/57 100 06/16/17 04:00 101.7 F H 114 H 16 106/57 100 06/16/17 03:50 114 H 16 100/54 100 06/16/17 03:40 100 H 16 101/54 100 06/16/17 03:30 115 H 16 101/54 100 06/16/17 03:20 125 H 16 126/68 100 06/16/17 03:10 123 H 18 104/57 100 06/16/17 03:00 112 H 16 104/57 100 06/16/17 02:50 113 H 16 100/55 100 06/16/17 02:40 114 H 16 100/53 100 06/16/17 02:30 114 H 16 100/53 100 06/16/17 02:20 115 H 16 101/53 100 06/16/17 02:10 112 H 16 99/56 100 06/16/17 02:00 114 H 16 99/56 100 06/16/17 01:50 112 H 16 97/53 100 06/16/17 01:40 113 H 16 96/54 100 06/16/17 01:30 117 H 16 96/54 100 06/16/17 01:20 113 H 16 97/55 100 06/16/17 01:10 113 H 16 101/54 100 06/16/17 01:00 96 H 16 100/51 100 06/16/17 00:50 112 H 16 101/54 100 06/16/17 00:40 113 H 16 98/52 100 06/16/17 00:30 113 H 16 97/54 100 06/16/17 00:20 114 H 16 100/54 100 06/16/17 00:10 113 H 16 98/52 100 06/16/17 00:06 119 H 85/47 100 06/16/17 00:00 103.1 F H 114 H 16 98/52 100 06/15/17 23:50 113 H 16 94/50 100 06/15/17 23:40 113 H 16 94/44 100 06/15/17 23:32 121 H 16 94/44 100 06/15/17 23:30 95 H 16 94/44 100 06/15/17 23:20 121 H 16 85/47 100 06/15/17 23:10 121 H 16 90/39 100 06/15/17 23:00 98 H 16 90/39 100 06/15/17 22:50 120 H 19 105/60 100 06/15/17 22:40 119 H 21 101/50 100 06/15/17 22:30 112 H 18 101/50 100 06/15/17 22:20 114 H 20 111/55 100 06/15/17 22:10 109 H 18 115/59 100 06/15/17 22:00 122 H 18 115/59 100 06/15/17 21:50 121 H 18 113/55 100 06/15/17 21:40 114 H 14 108/54 100 06/15/17 21:30 117 H 16 108/54 100 06/15/17 21:20 111 H 13 102/52 100 06/15/17 21:10 119 H 16 97/48 100 06/15/17 21:00 112 H 16 97/48 100 06/15/17 20:50 111 H 16 104/50 100 06/15/17 20:40 116 H 22 108/57 100 06/15/17 20:30 121 H 20 108/57 100 06/15/17 20:20 122 H 17 114/59 99 06/15/17 20:10 126 H 21 115/60 100 06/15/17 20:03 125 H 126/59 100 06/15/17 20:00 101 F H 126 H 24 115/60 100 06/15/17 19:50 121 H 41 H 126/59 99 06/15/17 19:40 120 H 20 115/63 100 06/15/17 19:39 101.5 F H 06/15/17 19:30 122 H 13 115/63 100 06/15/17 19:20 122 H 13 111/61 100 06/15/17 19:10 100.4 F H 121 H 21 111/60 100 06/15/17 19:00 120 H 22 111/60 100 06/15/17 18:50 121 H 24 113/57 100 06/15/17 18:40 122 H 22 116/56 100 06/15/17 18:30 119 H 29 H 116/56 100 06/15/17 18:24 99.5 F 118 H 12 113/58 100 06/15/17 18:21 100 06/15/17 18:20 122 H 15 107/50 100 06/15/17 18:10 119 H 10 L 113/58 100 06/15/17 18:03 98.2 F 120 H 13 109/51 100 06/15/17 18:00 120 H 12 113/58 100 06/15/17 17:50 122 H 12 109/51 100 06/15/17 17:40 121 H 13 108/54 100 06/15/17 17:30 121 H 20 108/54 100 06/15/17 17:20 123 H 15 112/60 100 06/15/17 17:10 122 H 20 109/61 100 06/15/17 17:00 122 H 20 109/61 100 06/15/17 16:56 123 H 2 L 121/50 100 06/15/17 16:50 124 H 21 121/50 100 06/15/17 16:40 124 H 23 125/44 100 06/15/17 16:30 124 H 25 H 125/44 06/15/17 16:20 125 H 15 119/59 100 06/15/17 16:10 126 H 19 100 06/15/17 16:06 124 H 21 99 06/15/17 16:00 98.6 F 100 06/15/17 15:57 98.1 F 122 H 14 112/60 06/15/17 15:51 122 H 28 H 115/56 06/15/17 15:45 98.6 F 120 H 22 116/56 06/15/17 15:41 122 H 16 116/56 99 06/15/17 15:30 123 H 17 116/56 100 06/15/17 15:27 98.6 F 129 H 15 121/50 100 06/15/17 15:21 127 H 16 115/60 100 06/15/17 15:12 98.2 F 124 H 24 123/52 100 06/15/17 15:11 122 H 17 114/56 100 06/15/17 15:00 120 H 19 114/56 100 06/15/17 14:51 120 H 20 115/54 100 06/15/17 14:41 128 H 21 118/56 100 06/15/17 14:30 123 H 23 118/56 100 06/15/17 14:21 122 H 23 116/55 100 06/15/17 14:11 124 H 26 H 111/54 100 06/15/17 14:00 120 H 26 H 111/54 100 06/15/17 13:51 121 H 20 112/56 100 06/15/17 13:41 121 H 24 112/56 100 06/15/17 13:30 122 H 25 H 112/56 100 06/15/17 13:21 122 H 27 H 120/54 100 06/15/17 13:11 126 H 24 120/54 100 06/15/17 13:00 125 H 28 H 120/54 100 06/15/17 12:51 125 H 30 H 124/54 100 06/15/17 12:49 124 H 29 H 125/48 100 06/15/17 12:41 125 H 29 H 125/48 100 06/15/17 12:30 123 H 27 H 125/48 100 06/15/17 12:21 126 H 27 H 115/52 100 06/15/17 12:11 127 H 26 H 115/52 100 06/15/17 12:00 100.4 F H 124 H 32 H 115/52 100 06/15/17 11:51 121 H 39 H 120/55 100 06/15/17 11:41 123 H 28 H 118/57 100 06/15/17 11:30 121 H 24 118/57 100 06/15/17 11:21 123 H 22 120/57 100 06/15/17 11:11 123 H 26 H 114/55 100 06/15/17 11:07 124 H 20 115/60 100 06/15/17 11:00 124 H 17 114/55 100 06/15/17 10:51 124 H 23 115/60 100 06/15/17 10:41 123 H 23 119/54 100 06/15/17 10:30 125 H 21 119/54 100 06/15/17 10:21 126 H 24 123/59 100 06/15/17 10:11 124 H 22 117/57 100 06/15/17 10:00 124 H 125 H 21 117/57 100 - Physical Examination Narrative exam: GEN: Patient intubated HEENT: No JVD is evident NECK: Supple CVS: Heart sounds appear normal no murmur noted LUNGS/CHEST: Clear to auscultation ABD: Soft nontender General: Other (intubated, sedated) Neck: Positive: neck supple Abdomen: Positive: Soft - Labs and Meds Cardiac Enzymes 06/16/17 Range/Units 06:25 AST 57 H (5-40) units/L CBC 06/16/17 Range/Units 06:25 WBC 14.7 H (4.5-11.0) K/mm3 RBC 3.28 L (3.65-5.03) M/mm3 Hgb 9.8 L (11.8-15.2) gm/dl Hct 29.1 L (35.5-45.6) % Plt Count 117 L (140-440) K/mm3 Comprehensive Metabolic Panel 06/16/17 Range/Units 06:25 Sodium 155 H (137-145) mmol/L Potassium 4.1 (3.6-5.0) mmol/L Chloride 117.9 H (98-107) mmol/L Carbon Dioxide 22 (22-30) mmol/L BUN 22 H (9-20) mg/dL Creatinine 1.5 (0.8-1.5) mg/dL Glucose 107 H (75-100) mg/dL Calcium 7.9 L (8.4-10.2) mg/dL AST 57 H (5-40) units/L ALT 29 (7-56) units/L Alkaline Phosphatase 51 (35-129) units/L Total Protein 5.4 L (6.3-8.2) g/dL Albumin 2.4 L (3.9-5) g/dL
--- NOTE | 2017-06-16 10:11 | Progress Note ---
Assessment and Plan - Patient Problems (1) Respiratory failure Current Visit: Yes Status: Acute Qualifiers: Chronicity: C Respiratory failure complication: R Plan to address problem: Continue ventilator support as tolerated and wean as tolerated (2) Sepsis Current Visit: Yes Status: Acute Qualifiers: Sepsis type: sepsis due to unspecified organism Qualified Code(s): A41.9 - Sepsis, unspecified organism Plan to address problem: Continue IV antibiotics as ordered monitor labs (3) Hypertension Onset Date: 07/13/16 Current Visit: No Status: Chronic Qualifiers: Hypertension type: essential hypertension Qualified Code(s): I10 - Essential (primary) hypertension Plan to address problem: Continue to monitor blood pressure closely as restart blood pressure medication has BP tolerates (4) IDDM (insulin dependent diabetes mellitus) Current Visit: No Status: Chronic (5) PAD (peripheral artery disease) Onset Date: 08/22/16 Current Visit: No Status: Chronic Plan to address problem: Status post transmetatarsal amputation, continue wound VAC, wound care and IV antibiotics (6) Peripheral neuropathy Current Visit: No Status: Chronic Qualifiers: Peripheral neuropathy type: polyneuropathy associated with underlying disease Qualified Code(s): G63 - Polyneuropathy in diseases classified elsewhere Plan to address problem: Continue current management Subjective Date of service: 06/16/17 Principal diagnosis: Septic shock Interval history: Patient seen and examined chart reviewed covering for Dr. Dr. Badillo. Patient on the ventilator, opens eyes not in any distress. Patient's daughter in the room with patient. Patient did not tolerate CPAP trial yesterday and back on full ventilator support. Objective - Exam Narrative Exam: GENERAL: Patient on the ventilator orally intubated, eyes open not in any distress not pale not jaundiced no cyanosis HEENT: Mucous membrane is moist NECK: [No JVD, no thyroid enlargement and no lymphadenopathy.] CHEST/LUNGS: [Good air exchange bilaterally, no wheeze, no rales and no rhonchi. ] [No chest wall tenderness, percussion is normal, symmetrical chest wall.] HEART/CARDIOVASCULAR: Tachycardia. Second heart sounds ABDOMEN: [Abdomen is soft, nondistended, no guarding, no rebound tenderness, no masses palpable per abdomen, active bowel sounds.] SKIN: [Warm and dry, no rash.] NEURO: Sedated on the ventilator able to move both upper and right lower extremities EXTREMITIES: Trace pedal edema in the right lower extremity. Left lower extremity with transmetatarsal amputation and wound VAC over the amputated foot , weak peripheral pulses bilaterally. - Constitutional Vitals: Vital Signs - 12hr 06/15/17 06/15/17 06/15/17 22:10 22:20 22:30 Temperature Pulse Rate 109 H 114 H 112 H Respiratory 18 20 18 Rate Blood Pressure 115/59 111/55 101/50 O2 Sat by Pulse 100 100 100 Oximetry 06/15/17 06/15/17 06/15/17 22:40 22:50 23:00 Temperature Pulse Rate 119 H 120 H 98 H Respiratory 21 19 16 Rate Blood Pressure 101/50 105/60 90/39 O2 Sat by Pulse 100 100 100 Oximetry 06/15/17 06/15/17 06/15/17 23:10 23:20 23:30 Temperature Pulse Rate 121 H 121 H 95 H Respiratory 16 16 16 Rate Blood Pressure 90/39 85/47 94/44 O2 Sat by Pulse 100 100 100 Oximetry 06/15/17 06/15/17 06/15/17 23:32 23:40 23:50 Temperature Pulse Rate 121 H 113 H 113 H Respiratory 16 16 16 Rate Blood Pressure 94/44 94/44 94/50 O2 Sat by Pulse 100 100 100 Oximetry 06/16/17 06/16/17 06/16/17 00:00 00:06 00:10 Temperature 103.1 F H Pulse Rate 114 H 119 H 113 H Respiratory 16 16 Rate Blood Pressure 98/52 85/47 98/52 O2 Sat by Pulse 100 100 100 Oximetry 06/16/17 06/16/17 06/16/17 00:20 00:30 00:40 Temperature Pulse Rate 114 H 113 H 113 H Respiratory 16 16 16 Rate Blood Pressure 100/54 97/54 98/52 O2 Sat by Pulse 100 100 100 Oximetry 06/16/17 06/16/17 06/16/17 00:50 01:00 01:10 Temperature Pulse Rate 112 H 96 H 113 H Respiratory 16 16 16 Rate Blood Pressure 101/54 100/51 101/54 O2 Sat by Pulse 100 100 100 Oximetry 06/16/17 06/16/17 06/16/17 01:20 01:30 01:40 Temperature Pulse Rate 113 H 117 H 113 H Respiratory 16 16 16 Rate Blood Pressure 97/55 96/54 96/54 O2 Sat by Pulse 100 100 100 Oximetry 06/16/17 06/16/17 06/16/17 01:50 02:00 02:10 Temperature Pulse Rate 112 H 114 H 112 H Respiratory 16 16 16 Rate Blood Pressure 97/53 99/56 99/56 O2 Sat by Pulse 100 100 100 Oximetry 06/16/17 06/16/17 06/16/17 02:20 02:30 02:40 Temperature Pulse Rate 115 H 114 H 114 H Respiratory 16 16 16 Rate Blood Pressure 101/53 100/53 100/53 O2 Sat by Pulse 100 100 100 Oximetry 06/16/17 06/16/17 06/16/17 02:50 03:00 03:10 Temperature Pulse Rate 113 H 112 H 123 H Respiratory 16 16 18 Rate Blood Pressure 100/55 104/57 104/57 O2 Sat by Pulse 100 100 100 Oximetry 06/16/17 06/16/17 06/16/17 03:20 03:30 03:40 Temperature Pulse Rate 125 H 115 H 100 H Respiratory 16 16 16 Rate Blood Pressure 126/68 101/54 101/54 O2 Sat by Pulse 100 100 100 Oximetry 06/16/17 06/16/17 06/16/17 03:50 04:00 04:10 Temperature 101.7 F H Pulse Rate 114 H 114 H 114 H Respiratory 16 16 16 Rate Blood Pressure 100/54 106/57 106/57 O2 Sat by Pulse 100 100 100 Oximetry 06/16/17 06/16/17 06/16/17 04:20 04:30 04:40 Temperature Pulse Rate 113 H 115 H 114 H Respiratory 16 16 16 Rate Blood Pressure 102/60 101/60 101/60 O2 Sat by Pulse 100 100 100 Oximetry 06/16/17 06/16/17 06/16/17 04:50 04:54 05:00 Temperature Pulse Rate 114 H 115 H 114 H Respiratory 16 18 Rate Blood Pressure 107/61 107/61 128/74 O2 Sat by Pulse 100 100 100 Oximetry 06/16/17 06/16/17 06/16/17 05:10 05:20 05:30 Temperature Pulse Rate 126 H 124 H 126 H Respiratory 17 17 16 Rate Blood Pressure 128/74 134/75 131/72 O2 Sat by Pulse 98 99 99 Oximetry 06/16/17 06/16/17 06/16/17 05:40 05:50 06:00 Temperature Pulse Rate 126 H 125 H 127 H Respiratory 16 16 16 Rate Blood Pressure 134/75 132/70 123/66 O2 Sat by Pulse 98 99 98 Oximetry 06/16/17 06/16/17 06/16/17 06:10 06:20 06:30 Temperature Pulse Rate 126 H 120 H 117 H Respiratory 16 17 15 Rate Blood Pressure 132/70 123/66 107/56 O2 Sat by Pulse 100 100 100 Oximetry 06/16/17 06/16/17 06/16/17 06:40 07:00 07:15 Temperature Pulse Rate 123 H 122 H 125 H Respiratory 15 11 L 11 L Rate Blood Pressure 107/56 115/59 118/63 O2 Sat by Pulse 100 100 100 Oximetry 06/16/17 06/16/17 06/16/17 07:30 07:45 08:00 Temperature 97.5 F L Pulse Rate 120 H 123 H 122 H Respiratory 14 16 12 Rate Blood Pressure 114/67 117/66 124/64 O2 Sat by Pulse 100 100 100 Oximetry 06/16/17 08:15 Temperature Pulse Rate 121 H Respiratory 14 Rate Blood Pressure 120/67 O2 Sat by Pulse 100 Oximetry - Labs CBC & Chem 7: 06/16/17 06:25 06/16/17 06:25 Labs: Abnormal lab results 06/15/17 06/15/17 06/15/17 Range/Units 06:00 09:32 11:35 WBC (4.5-11.0) K/mm3 RBC (3.65-5.03) M/mm3 Hgb (11.8-15.2) gm/dl Hct (35.5-45.6) % RDW (13.2-15.2) % Plt Count (140-440) K/mm3 Seg Neuts % (Manual) (40.0-70.0) % Lymphocytes % (Manual) (13.4-35.0) % Monocytes % (Manual) (0.0-7.3) % Seg Neutrophils # Man (1.8-7.7) K/mm3 Lymphocytes # (Manual) (1.2-5.4) K/mm3 Monocytes # (Manual) (0.0-0.8) K/mm3 Sodium (137-145) mmol/L Chloride (98-107) mmol/L BUN (9-20) mg/dL Glucose (75-100) mg/dL POC Glucose 233 H 229 H (70-105) Calcium (8.4-10.2) mg/dL AST (5-40) units/L Total Protein (6.3-8.2) g/dL Albumin (3.9-5) g/dL Crossmatch See Detail 06/15/17 06/15/17 06/15/17 Range/Units 12:32 13:36 14:30 WBC (4.5-11.0) K/mm3 RBC (3.65-5.03) M/mm3 Hgb (11.8-15.2) gm/dl Hct (35.5-45.6) % RDW (13.2-15.2) % Plt Count (140-440) K/mm3 Seg Neuts % (Manual) (40.0-70.0) % Lymphocytes % (Manual) (13.4-35.0) % Monocytes % (Manual) (0.0-7.3) % Seg Neutrophils # Man (1.8-7.7) K/mm3 Lymphocytes # (Manual) (1.2-5.4) K/mm3 Monocytes # (Manual) (0.0-0.8) K/mm3 Sodium (137-145) mmol/L Chloride (98-107) mmol/L BUN (9-20) mg/dL Glucose (75-100) mg/dL POC Glucose 202 H 189 H 142 H (70-105) Calcium (8.4-10.2) mg/dL AST (5-40) units/L Total Protein (6.3-8.2) g/dL Albumin (3.9-5) g/dL Crossmatch 06/15/17 06/15/17 06/15/17 Range/Units 15:32 16:28 17:36 WBC (4.5-11.0) K/mm3 RBC (3.65-5.03) M/mm3 Hgb (11.8-15.2) gm/dl Hct (35.5-45.6) % RDW (13.2-15.2) % Plt Count (140-440) K/mm3 Seg Neuts % (Manual) (40.0-70.0) % Lymphocytes % (Manual) (13.4-35.0) % Monocytes % (Manual) (0.0-7.3) % Seg Neutrophils # Man (1.8-7.7) K/mm3 Lymphocytes # (Manual) (1.2-5.4) K/mm3 Monocytes # (Manual) (0.0-0.8) K/mm3 Sodium (137-145) mmol/L Chloride (98-107) mmol/L BUN (9-20) mg/dL Glucose (75-100) mg/dL POC Glucose 106 H 119 H 121 H (70-105) Calcium (8.4-10.2) mg/dL AST (5-40) units/L Total Protein (6.3-8.2) g/dL Albumin (3.9-5) g/dL Crossmatch 06/15/17 06/15/17 06/15/17 Range/Units 19:30 20:51 21:42 WBC (4.5-11.0) K/mm3 RBC (3.65-5.03) M/mm3 Hgb (11.8-15.2) gm/dl Hct (35.5-45.6) % RDW (13.2-15.2) % Plt Count (140-440) K/mm3 Seg Neuts % (Manual) (40.0-70.0) % Lymphocytes % (Manual) (13.4-35.0) % Monocytes % (Manual) (0.0-7.3) % Seg Neutrophils # Man (1.8-7.7) K/mm3 Lymphocytes # (Manual) (1.2-5.4) K/mm3 Monocytes # (Manual) (0.0-0.8) K/mm3 Sodium (137-145) mmol/L Chloride (98-107) mmol/L BUN (9-20) mg/dL Glucose (75-100) mg/dL POC Glucose 109 H 112 H 122 H (70-105) Calcium (8.4-10.2) mg/dL AST (5-40) units/L Total Protein (6.3-8.2) g/dL Albumin (3.9-5) g/dL Crossmatch 06/15/17 06/16/17 06/16/17 Range/Units 23:27 01:11 02:03 WBC (4.5-11.0) K/mm3 RBC (3.65-5.03) M/mm3 Hgb (11.8-15.2) gm/dl Hct (35.5-45.6) % RDW (13.2-15.2) % Plt Count (140-440) K/mm3 Seg Neuts % (Manual) (40.0-70.0) % Lymphocytes % (Manual) (13.4-35.0) % Monocytes % (Manual) (0.0-7.3) % Seg Neutrophils # Man (1.8-7.7) K/mm3 Lymphocytes # (Manual) (1.2-5.4) K/mm3 Monocytes # (Manual) (0.0-0.8) K/mm3 Sodium (137-145) mmol/L Chloride (98-107) mmol/L BUN (9-20) mg/dL Glucose (75-100) mg/dL POC Glucose 142 H 162 H 117 H (70-105) Calcium (8.4-10.2) mg/dL AST (5-40) units/L Total Protein (6.3-8.2) g/dL Albumin (3.9-5) g/dL Crossmatch 06/16/17 06/16/17 06/16/17 Range/Units 02:57 04:05 05:09 WBC (4.5-11.0) K/mm3 RBC (3.65-5.03) M/mm3 Hgb (11.8-15.2) gm/dl Hct (35.5-45.6) % RDW (13.2-15.2) % Plt Count (140-440) K/mm3 Seg Neuts % (Manual) (40.0-70.0) % Lymphocytes % (Manual) (13.4-35.0) % Monocytes % (Manual) (0.0-7.3) % Seg Neutrophils # Man (1.8-7.7) K/mm3 Lymphocytes # (Manual) (1.2-5.4) K/mm3 Monocytes # (Manual) (0.0-0.8) K/mm3 Sodium (137-145) mmol/L Chloride (98-107) mmol/L BUN (9-20) mg/dL Glucose (75-100) mg/dL POC Glucose 106 H 108 H 114 H (70-105) Calcium (8.4-10.2) mg/dL AST (5-40) units/L Total Protein (6.3-8.2) g/dL Albumin (3.9-5) g/dL Crossmatch 06/16/17 06/16/17 06/16/17 Range/Units 05:23 06:03 06:25 WBC 14.7 H (4.5-11.0) K/mm3 RBC 3.28 L (3.65-5.03) M/mm3 Hgb 9.8 L (11.8-15.2) gm/dl Hct 29.1 L (35.5-45.6) % RDW 15.7 H (13.2-15.2) % Plt Count 117 L (140-440) K/mm3 Seg Neuts % (Manual) 81.0 H (40.0-70.0) % Lymphocytes % (Manual) 3.0 L (13.4-35.0) % Monocytes % (Manual) 15.0 H (0.0-7.3) % Seg Neutrophils # Man 11.9 H (1.8-7.7) K/mm3 Lymphocytes # (Manual) 0.4 L (1.2-5.4) K/mm3 Monocytes # (Manual) 2.2 H (0.0-0.8) K/mm3 Sodium (137-145) mmol/L Chloride (98-107) mmol/L BUN (9-20) mg/dL Glucose (75-100) mg/dL POC Glucose 125 H 138 H (70-105) Calcium (8.4-10.2) mg/dL AST (5-40) units/L Total Protein (6.3-8.2) g/dL Albumin (3.9-5) g/dL Crossmatch 06/16/17 Range/Units 06:25 WBC (4.5-11.0) K/mm3 RBC (3.65-5.03) M/mm3 Hgb (11.8-15.2) gm/dl Hct (35.5-45.6) % RDW (13.2-15.2) % Plt Count (140-440) K/mm3 Seg Neuts % (Manual) (40.0-70.0) % Lymphocytes % (Manual) (13.4-35.0) % Monocytes % (Manual) (0.0-7.3) % Seg Neutrophils # Man (1.8-7.7) K/mm3 Lymphocytes # (Manual) (1.2-5.4) K/mm3 Monocytes # (Manual) (0.0-0.8) K/mm3 Sodium 155 H (137-145) mmol/L Chloride 117.9 H (98-107) mmol/L BUN 22 H (9-20) mg/dL Glucose 107 H (75-100) mg/dL POC Glucose (70-105) Calcium 7.9 L (8.4-10.2) mg/dL AST 57 H (5-40) units/L Total Protein 5.4 L (6.3-8.2) g/dL Albumin 2.4 L (3.9-5) g/dL Crossmatch
--- NOTE | 2017-06-16 11:00 | Progress Note ---
Assessment and Plan 76 y/o male with acute blood loss anemia and hypotension, hemorrhagic shock vs septic shock, now with debridement/surgery of left lower ext, found to be infected 1. Wean levophed as tolerated. Given 2 units of PRBC's yesterday. Not appropriate response. continue daily checks. If acute change in BP or blood in vac, will send stat H/H. 2. Mental status is better, will discuss with RT about comfort levels of extubation. Does have some secretions but has no lung issues. 3. Continue PSV trial 4. Abx therapy restarted which is reasonable given surgical findings 5. Shock is most likely multifactorial, sepsis and hemorrhage. 6. Follow up vascular surgery recs, post-op 7. Will continue to follow, prognosis is guarded to poor. Patient is a DNR 8. Patient is hypernatremic, likely insensible loses. Currently on insulin drip secondary to elevated blood sugars but now better controlled. Need at least give free water but hopeful for extubation today. If not able to extubate will have to place [facility] angel, and give free water flushes that way. 9. starting insulin drip for better control of sugars given extensive infection CCT 31 minutes. Subjective Date of service: 06/16/17 Principal diagnosis: Septic shock Interval history: No acute events. More awake today. Difficult to tell if patient is truly following commands. Tolerated PSV all day yesterday. Placed back on a rate last night. Down to levophed 2 mcgs. Given 2 units of blood but did not respond appropriately. No acute evidence of bleeding. Objective Vital Signs - 12hr 06/15/17 06/15/17 06/15/17 23:00 23:10 23:20 Temperature Pulse Rate 98 H 121 H 121 H Respiratory 16 16 16 Rate Blood Pressure 90/39 90/39 85/47 O2 Sat by Pulse 100 100 100 Oximetry 06/15/17 06/15/17 06/15/17 23:30 23:32 23:40 Temperature Pulse Rate 95 H 121 H 113 H Respiratory 16 16 16 Rate Blood Pressure 94/44 94/44 94/44 O2 Sat by Pulse 100 100 100 Oximetry 06/15/17 06/16/17 06/16/17 23:50 00:00 00:06 Temperature 103.1 F H Pulse Rate 113 H 114 H 119 H Respiratory 16 16 Rate Blood Pressure 94/50 98/52 85/47 O2 Sat by Pulse 100 100 100 Oximetry 06/16/17 06/16/17 06/16/17 00:10 00:20 00:30 Temperature Pulse Rate 113 H 114 H 113 H Respiratory 16 16 16 Rate Blood Pressure 98/52 100/54 97/54 O2 Sat by Pulse 100 100 100 Oximetry 06/16/17 06/16/17 06/16/17 00:40 00:50 01:00 Temperature Pulse Rate 113 H 112 H 96 H Respiratory 16 16 16 Rate Blood Pressure 98/52 101/54 100/51 O2 Sat by Pulse 100 100 100 Oximetry 06/16/17 06/16/17 06/16/17 01:10 01:20 01:30 Temperature Pulse Rate 113 H 113 H 117 H Respiratory 16 16 16 Rate Blood Pressure 101/54 97/55 96/54 O2 Sat by Pulse 100 100 100 Oximetry 06/16/17 06/16/17 06/16/17 01:40 01:50 02:00 Temperature Pulse Rate 113 H 112 H 114 H Respiratory 16 16 16 Rate Blood Pressure 96/54 97/53 99/56 O2 Sat by Pulse 100 100 100 Oximetry 06/16/17 06/16/17 06/16/17 02:10 02:20 02:30 Temperature Pulse Rate 112 H 115 H 114 H Respiratory 16 16 16 Rate Blood Pressure 99/56 101/53 100/53 O2 Sat by Pulse 100 100 100 Oximetry 06/16/17 06/16/17 06/16/17 02:40 02:50 03:00 Temperature Pulse Rate 114 H 113 H 112 H Respiratory 16 16 16 Rate Blood Pressure 100/53 100/55 104/57 O2 Sat by Pulse 100 100 100 Oximetry 06/16/17 06/16/17 06/16/17 03:10 03:20 03:30 Temperature Pulse Rate 123 H 125 H 115 H Respiratory 18 16 16 Rate Blood Pressure 104/57 126/68 101/54 O2 Sat by Pulse 100 100 100 Oximetry 06/16/17 06/16/17 06/16/17 03:40 03:50 04:00 Temperature 101.7 F H Pulse Rate 100 H 114 H 114 H Respiratory 16 16 16 Rate Blood Pressure 101/54 100/54 106/57 O2 Sat by Pulse 100 100 100 Oximetry 06/16/17 06/16/17 06/16/17 04:10 04:20 04:30 Temperature Pulse Rate 114 H 113 H 115 H Respiratory 16 16 16 Rate Blood Pressure 106/57 102/60 101/60 O2 Sat by Pulse 100 100 100 Oximetry 06/16/17 06/16/17 06/16/17 04:40 04:50 04:54 Temperature Pulse Rate 114 H 114 H 115 H Respiratory 16 16 Rate Blood Pressure 101/60 107/61 107/61 O2 Sat by Pulse 100 100 100 Oximetry 06/16/17 06/16/17 06/16/17 05:00 05:10 05:20 Temperature Pulse Rate 114 H 126 H 124 H Respiratory 18 17 17 Rate Blood Pressure 128/74 128/74 134/75 O2 Sat by Pulse 100 98 99 Oximetry 06/16/17 06/16/17 06/16/17 05:30 05:40 05:50 Temperature Pulse Rate 126 H 126 H 125 H Respiratory 16 16 16 Rate Blood Pressure 131/72 134/75 132/70 O2 Sat by Pulse 99 98 99 Oximetry 06/16/17 06/16/17 06/16/17 06:00 06:10 06:20 Temperature Pulse Rate 127 H 126 H 120 H Respiratory 16 16 17 Rate Blood Pressure 123/66 132/70 123/66 O2 Sat by Pulse 98 100 100 Oximetry 06/16/17 06/16/17 06/16/17 06:30 06:40 07:00 Temperature Pulse Rate 117 H 123 H 122 H Respiratory 15 15 11 L Rate Blood Pressure 107/56 107/56 115/59 O2 Sat by Pulse 100 100 100 Oximetry 06/16/17 06/16/17 06/16/17 07:15 07:30 07:45 Temperature Pulse Rate 125 H 120 H 123 H Respiratory 11 L 14 16 Rate Blood Pressure 118/63 114/67 117/66 O2 Sat by Pulse 100 100 100 Oximetry 06/16/17 06/16/17 08:00 08:15 Temperature 97.5 F L Pulse Rate 122 H 121 H Respiratory 12 14 Rate Blood Pressure 124/64 120/67 O2 Sat by Pulse 100 100 Oximetry Constitutional: alert, other (orally intubated and critically ill on the vent) Eyes: non-icteric Neck: supple Effort: normal Ascultation: Bilateral: clear Percussion: Bilateral: not dull Cardiovascular: regular rate and rhythm (sinus tachycardia) Gastrointestinal: normoactive bowel sounds, soft Extremities: other (wound vacs in place on left) Neurologic: unable to assess CBC and BMP: 06/16/17 06:25 06/16/17 06:25 ABG, PT/INR, D-dimer: ABG POC ABG pH 7.350 (7.35-7.45) 06/15/17 06:54 POC ABG pCO2 34.4 (35-45) L 06/15/17 06:54 POC ABG pO2 191 (80-105) H 06/15/17 06:54 POC ABG HCO3 19.0 06/15/17 06:54 POC ABG Total CO2 20 06/15/17 06:54 POC ABG O2 Sat 100 06/15/17 06:54 PT/INR, D-dimer PT 15.9 Sec. (12.2-14.9) H 06/14/17 07:42 INR 1.28 (0.87-1.13) H 06/14/17 07:42 Abnormal lab findings: Abnormal Labs 06/13/17 06/13/17 06/13/17 00:18 05:20 10:28 WBC RBC Hgb 6.3 L 7.1 L Hct 19.6 L* 22.1 L RDW Plt Count Seg Neuts % (Manual) Lymphocytes % (Manual) Monocytes % (Manual) Seg Neutrophils # Man Lymphocytes # (Manual) Monocytes # (Manual) PT INR POC ABG pH POC ABG pCO2 POC ABG pO2 Sodium Potassium Chloride Carbon Dioxide BUN Creatinine Glucose POC Glucose 289 H Calcium AST Total Protein Albumin Crossmatch 06/13/17 06/13/17 06/13/17 12:00 16:20 18:45 WBC RBC Hgb 9.9 L 8.8 L Hct 28.8 L D 26.5 L RDW Plt Count Seg Neuts % (Manual) Lymphocytes % (Manual) Monocytes % (Manual) Seg Neutrophils # Man Lymphocytes # (Manual) Monocytes # (Manual) PT INR POC ABG pH POC ABG pCO2 POC ABG pO2 Sodium Potassium Chloride Carbon Dioxide BUN Creatinine Glucose POC Glucose 292 H Calcium AST Total Protein Albumin Crossmatch 06/13/17 06/13/17 06/13/17 18:49 21:13 Unknown WBC RBC Hgb 9.3 L Hct 27.8 L RDW Plt Count Seg Neuts % (Manual) Lymphocytes % (Manual) Monocytes % (Manual) Seg Neutrophils # Man Lymphocytes # (Manual) Monocytes # (Manual) PT INR POC ABG pH POC ABG pCO2 POC ABG pO2 Sodium Potassium Chloride Carbon Dioxide BUN Creatinine Glucose POC Glucose 252 H 234 H Calcium AST Total Protein Albumin Crossmatch 06/14/17 06/14/17 06/14/17 00:24 01:53 04:44 WBC RBC Hgb 8.5 L 8.2 L Hct 25.7 L 25.1 L RDW Plt Count Seg Neuts % (Manual) Lymphocytes % (Manual) Monocytes % (Manual) Seg Neutrophils # Man Lymphocytes # (Manual) Monocytes # (Manual) PT INR POC ABG pH POC ABG pCO2 POC ABG pO2 Sodium Potassium Chloride Carbon Dioxide BUN Creatinine Glucose POC Glucose 213 H Calcium AST Total Protein Albumin Crossmatch 06/14/17 06/14/17 06/14/17 05:49 07:42 07:42 WBC 12.2 H RBC 2.77 L Hgb 8.1 L Hct 25.0 L RDW 15.7 H Plt Count Seg Neuts % (Manual) Lymphocytes % (Manual) Monocytes % (Manual) Seg Neutrophils # Man Lymphocytes # (Manual) Monocytes # (Manual) PT 15.9 H INR 1.28 H POC ABG pH POC ABG pCO2 POC ABG pO2 Sodium Potassium Chloride Carbon Dioxide BUN Creatinine Glucose POC Glucose 218 H Calcium AST Total Protein Albumin Crossmatch 06/14/17 06/14/17 06/14/17 07:42 14:31 16:45 WBC 14.0 H RBC 3.61 L Hgb 10.9 L Hct 32.8 L D RDW 15.8 H Plt Count Seg Neuts % (Manual) Lymphocytes % (Manual) Monocytes % (Manual) Seg Neutrophils # Man Lymphocytes # (Manual) Monocytes # (Manual) PT INR POC ABG pH POC ABG pCO2 POC ABG pO2 Sodium 146 H D Potassium Chloride 110.2 H Carbon Dioxide 15 L D BUN 25 H Creatinine Glucose 185 H POC Glucose 235 H Calcium 8.0 L AST Total Protein 5.1 L Albumin 2.0 L Crossmatch 06/14/17 06/14/17 06/14/17 19:34 19:45 19:45 WBC 13.1 H RBC 3.33 L Hgb 9.9 L Hct 29.7 L RDW 15.7 H Plt Count 126 L Seg Neuts % (Manual) Lymphocytes % (Manual) Monocytes % (Manual) Seg Neutrophils # Man Lymphocytes # (Manual) Monocytes # (Manual) PT INR POC ABG pH POC ABG pCO2 POC ABG pO2 Sodium 148 H Potassium 5.7 H D Chloride 108.5 H Carbon Dioxide 12 L BUN 29 H Creatinine 1.7 H Glucose 324 H POC Glucose 296 H Calcium 7.9 L AST Total Protein Albumin Crossmatch 06/14/17 06/14/17 06/14/17 20:05 21:53 23:06 WBC RBC Hgb Hct RDW Plt Count Seg Neuts % (Manual) Lymphocytes % (Manual) Monocytes % (Manual) Seg Neutrophils # Man Lymphocytes # (Manual) Monocytes # (Manual) PT INR POC ABG pH 7.241 L 7.298 L POC ABG pCO2 32.3 L 26.8 L POC ABG pO2 550 H 303 H Sodium Potassium Chloride Carbon Dioxide BUN Creatinine Glucose POC Glucose 259 H Calcium AST Total Protein Albumin Crossmatch 06/15/17 06/15/17 06/15/17 02:08 06:00 06:15 WBC RBC Hgb 8.8 L Hct 26.4 L RDW Plt Count Seg Neuts % (Manual) Lymphocytes % (Manual) Monocytes % (Manual) Seg Neutrophils # Man Lymphocytes # (Manual) Monocytes # (Manual) PT INR POC ABG pH POC ABG pCO2 POC ABG pO2 Sodium Potassium Chloride Carbon Dioxide BUN Creatinine Glucose POC Glucose 334 H 233 H Calcium AST Total Protein Albumin Crossmatch 06/15/17 06/15/17 06/15/17 06:15 06:54 09:32 WBC RBC Hgb Hct RDW Plt Count Seg Neuts % (Manual) Lymphocytes % (Manual) Monocytes % (Manual) Seg Neutrophils # Man Lymphocytes # (Manual) Monocytes # (Manual) PT INR POC ABG pH POC ABG pCO2 34.4 L POC ABG pO2 191 H Sodium 151 H Potassium Chloride 114.7 H Carbon Dioxide 18 L BUN 29 H Creatinine 1.8 H Glucose 259 H POC Glucose 229 H Calcium 7.7 L AST Total Protein Albumin Crossmatch 06/15/17 06/15/17 06/15/17 11:35 12:32 13:36 WBC RBC Hgb Hct RDW Plt Count Seg Neuts % (Manual) Lymphocytes % (Manual) Monocytes % (Manual) Seg Neutrophils # Man Lymphocytes # (Manual) Monocytes # (Manual) PT INR POC ABG pH POC ABG pCO2 POC ABG pO2 Sodium Potassium Chloride Carbon Dioxide BUN Creatinine Glucose POC Glucose 202 H 189 H Calcium AST Total Protein Albumin Crossmatch See Detail 06/15/17 06/15/17 06/15/17 14:30 15:32 16:28 WBC RBC Hgb Hct RDW Plt Count Seg Neuts % (Manual) Lymphocytes % (Manual) Monocytes % (Manual) Seg Neutrophils # Man Lymphocytes # (Manual) Monocytes # (Manual) PT INR POC ABG pH POC ABG pCO2 POC ABG pO2 Sodium Potassium Chloride Carbon Dioxide BUN Creatinine Glucose POC Glucose 142 H 106 H 119 H Calcium AST Total Protein Albumin Crossmatch 06/15/17 06/15/17 06/15/17 17:36 19:30 20:51 WBC RBC Hgb Hct RDW Plt Count Seg Neuts % (Manual) Lymphocytes % (Manual) Monocytes % (Manual) Seg Neutrophils # Man Lymphocytes # (Manual) Monocytes # (Manual) PT INR POC ABG pH POC ABG pCO2 POC ABG pO2 Sodium Potassium Chloride Carbon Dioxide BUN Creatinine Glucose POC Glucose 121 H 109 H 112 H Calcium AST Total Protein Albumin Crossmatch 06/15/17 06/15/17 06/16/17 21:42 23:27 01:11 WBC RBC Hgb Hct RDW Plt Count Seg Neuts % (Manual) Lymphocytes % (Manual) Monocytes % (Manual) Seg Neutrophils # Man Lymphocytes # (Manual) Monocytes # (Manual) PT INR POC ABG pH POC ABG pCO2 POC ABG pO2 Sodium Potassium Chloride Carbon Dioxide BUN Creatinine Glucose POC Glucose 122 H 142 H 162 H Calcium AST Total Protein Albumin Crossmatch 06/16/17 06/16/17 06/16/17 02:03 02:57 04:05 WBC RBC Hgb Hct RDW Plt Count Seg Neuts % (Manual) Lymphocytes % (Manual) Monocytes % (Manual) Seg Neutrophils # Man Lymphocytes # (Manual) Monocytes # (Manual) PT INR POC ABG pH POC ABG pCO2 POC ABG pO2 Sodium Potassium Chloride Carbon Dioxide BUN Creatinine Glucose POC Glucose 117 H 106 H 108 H Calcium AST Total Protein Albumin Crossmatch 06/16/17 06/16/17 06/16/17 05:09 05:23 06:03 WBC RBC Hgb Hct RDW Plt Count Seg Neuts % (Manual) Lymphocytes % (Manual) Monocytes % (Manual) Seg Neutrophils # Man Lymphocytes # (Manual) Monocytes # (Manual) PT INR POC ABG pH POC ABG pCO2 POC ABG pO2 Sodium Potassium Chloride Carbon Dioxide BUN Creatinine Glucose POC Glucose 114 H 125 H 138 H Calcium AST Total Protein Albumin Crossmatch 06/16/17 06/16/17 06:25 06:25 WBC 14.7 H RBC 3.28 L Hgb 9.8 L Hct 29.1 L RDW 15.7 H Plt Count 117 L Seg Neuts % (Manual) 81.0 H Lymphocytes % (Manual) 3.0 L Monocytes % (Manual) 15.0 H Seg Neutrophils # Man 11.9 H Lymphocytes # (Manual) 0.4 L Monocytes # (Manual) 2.2 H PT INR POC ABG pH POC ABG pCO2 POC ABG pO2 Sodium 155 H Potassium Chloride 117.9 H Carbon Dioxide BUN 22 H Creatinine Glucose 107 H POC Glucose Calcium 7.9 L AST 57 H Total Protein 5.4 L Albumin 2.4 L Crossmatch
[2017-06-16 12:53] LABS: ISTAT Base Excess -5; ISTAT HCO3 19.8; ISTAT PCO2 30.3 (35-45); ISTAT PH 7.424 (7.35-7.45); ISTAT PO2 118 (80-105); ISTAT SO2 99; ISTAT TCO2 21
--- NOTE | 2017-06-16 13:19 | XRay Report ---
KUB: 06/12/17 22:00:00 CLINICAL: Feeding tube placement. FINDINGS: A Dobbhoff tube tip is in the proximal stomach.Normal gas pattern. IMPRESSION: Satisfactory position of the feeding tube.
--- NOTE | 2017-06-16 17:44 | Progress Note ---
Assessment and Plan - Patient Problems (1) Sepsis Current Visit: Yes Status: Acute Qualifiers: Sepsis type: sepsis due to unspecified organism Qualified Code(s): A41.9 - Sepsis, unspecified organism Plan to address problem: No updated micro data. Continue Meropenem pending identification of Gram negative rods. Will, also , add empiric Vancomycin given recent incisions and multiple areas of wound vac. (2) PAD (peripheral artery disease) Onset Date: 08/22/16 Current Visit: No Status: Chronic Plan to address problem: Patient is s/p extensive revascularization. Subjective Date of service: 06/16/17 Principal diagnosis: Septic shock Interval history: Patient remains critically ill in ICU. Febrile to 103 deg F today. Extubated. NG tube placed. Objective - Constitutional Vitals: Vital Signs Temp Pulse Resp BP Pulse Ox 99.0 F 118 H 22 117/68 100 06/16/17 17:35 06/16/17 15:00 06/16/17 17:28 06/16/17 15:00 06/16/17 15:00 Temperature -Last 24 Hours Temperature 99.0 F Temperature 97.5 F Temperature 101.7 F Temperature 103.1 F Temperature 101 F Temperature 101.5 F Temperature 100.4 F Temperature 99.5 F Temperature 98.2 F General appearance: Present: no acute distress, other (extubated; and daughters x 2 present) - EENT Eyes: no conjunctival injection ENT: other (Dobhoff tube in place) - Respiratory Respiratory effort: normal Respiratory: bilateral: CTA, negative: rhonchi, wheezing - Cardiovascular Rhythm: regular (tachycardic to 120s) Heart Sounds: Present: S1 & S2 Extremity abnormal: edema (wound vac at left TMA stump, also along medial calf and at left groin, no signs of superinfection; bandage over prior graft site right arm) - Gastrointestinal General gastrointestinal: Present: soft, non-distended - Genitourinary Male genitourinary: normal ([place] with yellow urine) - Integumentary Integumentary: clear, no rash - Labs CBC & Chem 7: 06/16/17 06:25 06/16/17 06:25 Labs: Abnormal lab results 06/15/17 06/15/17 06/15/17 Range/Units 06:00 09:32 11:35 WBC (4.5-11.0) K/mm3 RBC (3.65-5.03) M/mm3 Hgb (11.8-15.2) gm/dl Hct (35.5-45.6) % RDW (13.2-15.2) % Plt Count (140-440) K/mm3 Seg Neuts % (Manual) (40.0-70.0) % Lymphocytes % (Manual) (13.4-35.0) % Monocytes % (Manual) (0.0-7.3) % Seg Neutrophils # Man (1.8-7.7) K/mm3 Lymphocytes # (Manual) (1.2-5.4) K/mm3 Monocytes # (Manual) (0.0-0.8) K/mm3 POC ABG pCO2 (35-45) POC ABG pO2 (80-105) Sodium (137-145) mmol/L Chloride (98-107) mmol/L BUN (9-20) mg/dL Glucose (75-100) mg/dL POC Glucose 233 H 229 H (70-105) Calcium (8.4-10.2) mg/dL AST (5-40) units/L Total Protein (6.3-8.2) g/dL Albumin (3.9-5) g/dL Crossmatch See Detail 06/15/17 06/15/17 06/15/17 Range/Units 12:32 13:36 14:30 WBC (4.5-11.0) K/mm3 RBC (3.65-5.03) M/mm3 Hgb (11.8-15.2) gm/dl Hct (35.5-45.6) % RDW (13.2-15.2) % Plt Count (140-440) K/mm3 Seg Neuts % (Manual) (40.0-70.0) % Lymphocytes % (Manual) (13.4-35.0) % Monocytes % (Manual) (0.0-7.3) % Seg Neutrophils # Man (1.8-7.7) K/mm3 Lymphocytes # (Manual) (1.2-5.4) K/mm3 Monocytes # (Manual) (0.0-0.8) K/mm3 POC ABG pCO2 (35-45) POC ABG pO2 (80-105) Sodium (137-145) mmol/L Chloride (98-107) mmol/L BUN (9-20) mg/dL Glucose (75-100) mg/dL POC Glucose 202 H 189 H 142 H (70-105) Calcium (8.4-10.2) mg/dL AST (5-40) units/L Total Protein (6.3-8.2) g/dL Albumin (3.9-5) g/dL Crossmatch 06/15/17 06/15/17 06/15/17 Range/Units 15:32 16:28 17:36 WBC (4.5-11.0) K/mm3 RBC (3.65-5.03) M/mm3 Hgb (11.8-15.2) gm/dl Hct (35.5-45.6) % RDW (13.2-15.2) % Plt Count (140-440) K/mm3 Seg Neuts % (Manual) (40.0-70.0) % Lymphocytes % (Manual) (13.4-35.0) % Monocytes % (Manual) (0.0-7.3) % Seg Neutrophils # Man (1.8-7.7) K/mm3 Lymphocytes # (Manual) (1.2-5.4) K/mm3 Monocytes # (Manual) (0.0-0.8) K/mm3 POC ABG pCO2 (35-45) POC ABG pO2 (80-105) Sodium (137-145) mmol/L Chloride (98-107) mmol/L BUN (9-20) mg/dL Glucose (75-100) mg/dL POC Glucose 106 H 119 H 121 H (70-105) Calcium (8.4-10.2) mg/dL AST (5-40) units/L Total Protein (6.3-8.2) g/dL Albumin (3.9-5) g/dL Crossmatch 06/15/17 06/15/17 06/15/17 Range/Units 19:30 20:51 21:42 WBC (4.5-11.0) K/mm3 RBC (3.65-5.03) M/mm3 Hgb (11.8-15.2) gm/dl Hct (35.5-45.6) % RDW (13.2-15.2) % Plt Count (140-440) K/mm3 Seg Neuts % (Manual) (40.0-70.0) % Lymphocytes % (Manual) (13.4-35.0) % Monocytes % (Manual) (0.0-7.3) % Seg Neutrophils # Man (1.8-7.7) K/mm3 Lymphocytes # (Manual) (1.2-5.4) K/mm3 Monocytes # (Manual) (0.0-0.8) K/mm3 POC ABG pCO2 (35-45) POC ABG pO2 (80-105) Sodium (137-145) mmol/L Chloride (98-107) mmol/L BUN (9-20) mg/dL Glucose (75-100) mg/dL POC Glucose 109 H 112 H 122 H (70-105) Calcium (8.4-10.2) mg/dL AST (5-40) units/L Total Protein (6.3-8.2) g/dL Albumin (3.9-5) g/dL Crossmatch 06/15/17 06/16/17 06/16/17 Range/Units 23:27 01:11 02:03 WBC (4.5-11.0) K/mm3 RBC (3.65-5.03) M/mm3 Hgb (11.8-15.2) gm/dl Hct (35.5-45.6) % RDW (13.2-15.2) % Plt Count (140-440) K/mm3 Seg Neuts % (Manual) (40.0-70.0) % Lymphocytes % (Manual) (13.4-35.0) % Monocytes % (Manual) (0.0-7.3) % Seg Neutrophils # Man (1.8-7.7) K/mm3 Lymphocytes # (Manual) (1.2-5.4) K/mm3 Monocytes # (Manual) (0.0-0.8) K/mm3 POC ABG pCO2 (35-45) POC ABG pO2 (80-105) Sodium (137-145) mmol/L Chloride (98-107) mmol/L BUN (9-20) mg/dL Glucose (75-100) mg/dL POC Glucose 142 H 162 H 117 H (70-105) Calcium (8.4-10.2) mg/dL AST (5-40) units/L Total Protein (6.3-8.2) g/dL Albumin (3.9-5) g/dL Crossmatch 06/16/17 06/16/17 06/16/17 Range/Units 02:57 04:05 05:09 WBC (4.5-11.0) K/mm3 RBC (3.65-5.03) M/mm3 Hgb (11.8-15.2) gm/dl Hct (35.5-45.6) % RDW (13.2-15.2) % Plt Count (140-440) K/mm3 Seg Neuts % (Manual) (40.0-70.0) % Lymphocytes % (Manual) (13.4-35.0) % Monocytes % (Manual) (0.0-7.3) % Seg Neutrophils # Man (1.8-7.7) K/mm3 Lymphocytes # (Manual) (1.2-5.4) K/mm3 Monocytes # (Manual) (0.0-0.8) K/mm3 POC ABG pCO2 (35-45) POC ABG pO2 (80-105) Sodium (137-145) mmol/L Chloride (98-107) mmol/L BUN (9-20) mg/dL Glucose (75-100) mg/dL POC Glucose 106 H 108 H 114 H (70-105) Calcium (8.4-10.2) mg/dL AST (5-40) units/L Total Protein (6.3-8.2) g/dL Albumin (3.9-5) g/dL Crossmatch 06/16/17 06/16/17 06/16/17 Range/Units 05:23 06:03 06:25 WBC 14.7 H (4.5-11.0) K/mm3 RBC 3.28 L (3.65-5.03) M/mm3 Hgb 9.8 L (11.8-15.2) gm/dl Hct 29.1 L (35.5-45.6) % RDW 15.7 H (13.2-15.2) % Plt Count 117 L (140-440) K/mm3 Seg Neuts % (Manual) 81.0 H (40.0-70.0) % Lymphocytes % (Manual) 3.0 L (13.4-35.0) % Monocytes % (Manual) 15.0 H (0.0-7.3) % Seg Neutrophils # Man 11.9 H (1.8-7.7) K/mm3 Lymphocytes # (Manual) 0.4 L (1.2-5.4) K/mm3 Monocytes # (Manual) 2.2 H (0.0-0.8) K/mm3 POC ABG pCO2 (35-45) POC ABG pO2 (80-105) Sodium (137-145) mmol/L Chloride (98-107) mmol/L BUN (9-20) mg/dL Glucose (75-100) mg/dL POC Glucose 125 H 138 H (70-105) Calcium (8.4-10.2) mg/dL AST (5-40) units/L Total Protein (6.3-8.2) g/dL Albumin (3.9-5) g/dL Crossmatch 06/16/17 06/16/17 06/16/17 Range/Units 06:25 07:07 08:00 WBC (4.5-11.0) K/mm3 RBC (3.65-5.03) M/mm3 Hgb (11.8-15.2) gm/dl Hct (35.5-45.6) % RDW (13.2-15.2) % Plt Count (140-440) K/mm3 Seg Neuts % (Manual) (40.0-70.0) % Lymphocytes % (Manual) (13.4-35.0) % Monocytes % (Manual) (0.0-7.3) % Seg Neutrophils # Man (1.8-7.7) K/mm3 Lymphocytes # (Manual) (1.2-5.4) K/mm3 Monocytes # (Manual) (0.0-0.8) K/mm3 POC ABG pCO2 (35-45) POC ABG pO2 (80-105) Sodium 155 H (137-145) mmol/L Chloride 117.9 H (98-107) mmol/L BUN 22 H (9-20) mg/dL Glucose 107 H (75-100) mg/dL POC Glucose 127 H 113 H (70-105) Calcium 7.9 L (8.4-10.2) mg/dL AST 57 H (5-40) units/L Total Protein 5.4 L (6.3-8.2) g/dL Albumin 2.4 L (3.9-5) g/dL Crossmatch 06/16/17 06/16/17 06/16/17 Range/Units 09:07 10:11 10:59 WBC (4.5-11.0) K/mm3 RBC (3.65-5.03) M/mm3 Hgb (11.8-15.2) gm/dl Hct (35.5-45.6) % RDW (13.2-15.2) % Plt Count (140-440) K/mm3 Seg Neuts % (Manual) (40.0-70.0) % Lymphocytes % (Manual) (13.4-35.0) % Monocytes % (Manual) (0.0-7.3) % Seg Neutrophils # Man (1.8-7.7) K/mm3 Lymphocytes # (Manual) (1.2-5.4) K/mm3 Monocytes # (Manual) (0.0-0.8) K/mm3 POC ABG pCO2 (35-45) POC ABG pO2 (80-105) Sodium (137-145) mmol/L Chloride (98-107) mmol/L BUN (9-20) mg/dL Glucose (75-100) mg/dL POC Glucose 106 H 107 H 110 H (70-105) Calcium (8.4-10.2) mg/dL AST (5-40) units/L Total Protein (6.3-8.2) g/dL Albumin (3.9-5) g/dL Crossmatch 06/16/17 06/16/17 06/16/17 Range/Units 11:28 12:11 13:13 WBC (4.5-11.0) K/mm3 RBC (3.65-5.03) M/mm3 Hgb (11.8-15.2) gm/dl Hct (35.5-45.6) % RDW (13.2-15.2) % Plt Count (140-440) K/mm3 Seg Neuts % (Manual) (40.0-70.0) % Lymphocytes % (Manual) (13.4-35.0) % Monocytes % (Manual) (0.0-7.3) % Seg Neutrophils # Man (1.8-7.7) K/mm3 Lymphocytes # (Manual) (1.2-5.4) K/mm3 Monocytes # (Manual) (0.0-0.8) K/mm3 POC ABG pCO2 30.3 L (35-45) POC ABG pO2 118 H (80-105) Sodium (137-145) mmol/L Chloride (98-107) mmol/L BUN (9-20) mg/dL Glucose (75-100) mg/dL POC Glucose 109 H 111 H (70-105) Calcium (8.4-10.2) mg/dL AST (5-40) units/L Total Protein (6.3-8.2) g/dL Albumin (3.9-5) g/dL Crossmatch 06/16/17 Range/Units 15:40 WBC (4.5-11.0) K/mm3 RBC (3.65-5.03) M/mm3 Hgb (11.8-15.2) gm/dl Hct (35.5-45.6) % RDW (13.2-15.2) % Plt Count (140-440) K/mm3 Seg Neuts % (Manual) (40.0-70.0) % Lymphocytes % (Manual) (13.4-35.0) % Monocytes % (Manual) (0.0-7.3) % Seg Neutrophils # Man (1.8-7.7) K/mm3 Lymphocytes # (Manual) (1.2-5.4) K/mm3 Monocytes # (Manual) (0.0-0.8) K/mm3 POC ABG pCO2 (35-45) POC ABG pO2 (80-105) Sodium (137-145) mmol/L Chloride (98-107) mmol/L BUN (9-20) mg/dL Glucose (75-100) mg/dL POC Glucose 143 H (70-105) Calcium (8.4-10.2) mg/dL AST (5-40) units/L Total Protein (6.3-8.2) g/dL Albumin (3.9-5) g/dL Crossmatch Microbiology 06/12/17 19:35 Peripheral/Venous Blood Culture - Preliminary NO GROWTH AFTER 72 HOURS 06/12/17 18:17 Peripheral/Venous Blood Culture - Preliminary NO GROWTH AFTER 72 HOURS 06/14/17 Unknown Leg - Left Surgical Culture - Preliminary 06/14/17 Unknown Leg - Left Surgical Biopsy Culture - Preliminary 06/12/17 19:11 Urine,Catheterized - Cytoscopic/Bilateral Urine Culture - Final NO GROWTH AFTER 48 HOURS - Imaging and cardiology Chest x-ray: report reviewed (no CHF or pneumonia)
[2017-06-16] MEDS: VANCOMYCIN/NS 1 GM/250 ML 1 GM/250 ML BAG IV SCH (19:02)
[2017-06-17] MEDS: NORCO 5/325 PO PRN ×2 (00:10→06:33)
[2017-06-17] MEDS: MERREM 1,000 MG in NACL 0.9% 100 ML IV SCH ×3 (00:11→18:28)
[2017-06-17] MEDS: VANCOMYCIN/NS 1 GM/250 ML 1 GM/250 ML BAG IV SCH ×2 (05:21→18:28)
[2017-06-17 05:56] LABS: Basophils % (Auto) 0.2 % (0.0-1.8); Eosinophils % (Auto) 0.4 % (0.0-4.3); Hematocrit 28.5 % (35.5-45.6); Hemoglobin 9.4 gm/dl (11.8-15.2); Mean Corpuscular HGB Conc 33 % (32-34); Mean Corpuscular Hemoglobin 30 pg (28-32); Mean Corpuscular Volume 91 fl (84-94); Platelet Count 107 K/mm3 (140-440); Red Blood Count 3.14 M/mm3 (3.65-5.03); White Blood Count 16.4 K/mm3 (4.5-11.0)
[2017-06-17 06:19] LABS: Alanine Aminotransferase 30 units/L (7-56); Albumin 2.3 g/dL (3.9-5); Albumin/Globulin Ratio 0.7 %; Alkaline Phosphatase 60 units/L (35-129); Anion Gap 25 mmol/L; BUN/Creatinine Ratio 19.23; Blood Urea Nitrogen 25 mg/dL (9-20); Calcium 8.1 mg/dL (8.4-10.2); Carbon Dioxide 18 mmol/L (22-30); Chloride 110.8 mmol/L (98-107); Glucose 107 mg/dL (75-100); Potassium 4.2 mmol/L (3.6-5.0); Sodium 150 mmol/L (137-145); Total Protein 5.4 g/dL (6.3-8.2)
[2017-06-17] MEDS: PEPCID IV SCH ×2 (09:06→21:06)
--- NOTE | 2017-06-17 09:13 | XRay Report ---
AP CHEST :06/17/17 CLINICAL: Followup respiratory failure. COMPARISON:The previous day. FINDINGS: The endotracheal tube has been removed. Significant increased central vascular congestion. New diffuse opacification of the right hemithorax and increased opacification in the left lung base. Stable cardiomegaly. A feeding tube tip is below the diaphragm and not imaged. The right IJ catheter tip is in the distal SVC and unchanged. IMPRESSION: Interval development of CHF with pulmonary edema after extubation.
--- NOTE | 2017-06-17 09:53 | Progress Note ---
Assessment and Plan Patient slowly improving. We'll obtain an arterial ultrasound of his left lower extremity to determine the patency of his graft. He may ultimately require amputation is above or below the knee given the non-viability of his lower leg musculature. Subjective Date of service: 06/17/17 Principal diagnosis: Septic shock Interval history: Is slowly improving. He is extubated and response to verbal commands. Spontaneous movement in the right lower extremity however, decreased movement in his left lower extremity. Again complaints of pain. His left leg remains well perfused to the ankle however, his foot remains cool. Wound vacs are in place. Objective - Constitutional Vitals: Vital Signs - 12hr 06/16/17 06/16/17 06/16/17 22:00 22:15 22:30 Temperature Pulse Rate 109 H 92 H 114 H Pulse Rate [ From Monitor] Respiratory 17 16 18 Rate Respiratory 18 Rate [Left Anterior Leg] Blood Pressure 114/60 106/56 117/68 O2 Sat by Pulse 100 100 100 Oximetry 06/16/17 06/16/17 06/16/17 22:45 23:00 23:15 Temperature Pulse Rate 107 H 107 H 92 H Pulse Rate [ From Monitor] Respiratory 17 19 16 Rate Respiratory Rate [Left Anterior Leg] Blood Pressure 123/72 118/68 109/64 O2 Sat by Pulse 100 100 100 Oximetry 06/16/17 06/16/17 06/17/17 23:30 23:45 00:00 Temperature 98.8 F Pulse Rate 111 H 99 H 113 H Pulse Rate [ 113 H From Monitor] Respiratory 15 19 22 Rate Respiratory Rate [Left Anterior Leg] Blood Pressure 117/69 118/68 110/62 O2 Sat by Pulse 100 100 100 Oximetry 06/17/17 06/17/17 06/17/17 00:10 00:16 00:30 Temperature Pulse Rate 115 H 100 H Pulse Rate [ From Monitor] Respiratory 17 17 21 Rate Respiratory Rate [Left Anterior Leg] Blood Pressure 102/55 102/50 O2 Sat by Pulse 100 100 Oximetry 06/17/17 06/17/17 06/17/17 00:45 01:00 01:10 Temperature Pulse Rate 106 H 114 H Pulse Rate [ From Monitor] Respiratory 19 20 17 Rate Respiratory Rate [Left Anterior Leg] Blood Pressure 99/58 98/55 O2 Sat by Pulse 100 100 Oximetry 06/17/17 06/17/17 06/17/17 01:15 01:30 01:45 Temperature Pulse Rate 113 H 102 H 113 H Pulse Rate [ From Monitor] Respiratory 18 15 18 Rate Respiratory Rate [Left Anterior Leg] Blood Pressure 93/55 90/55 98/54 O2 Sat by Pulse 100 100 100 Oximetry 06/17/17 06/17/17 06/17/17 02:00 02:15 02:30 Temperature Pulse Rate 109 H 118 H 118 H Pulse Rate [ From Monitor] Respiratory 16 21 22 Rate Respiratory Rate [Left Anterior Leg] Blood Pressure 104/54 91/51 102/59 O2 Sat by Pulse 100 97 100 Oximetry 06/17/17 06/17/17 06/17/17 02:45 03:00 03:15 Temperature Pulse Rate 118 H 116 H 116 H Pulse Rate [ From Monitor] Respiratory 23 22 20 Rate Respiratory Rate [Left Anterior Leg] Blood Pressure 105/58 101/58 102/58 O2 Sat by Pulse 100 99 100 Oximetry 06/17/17 06/17/17 06/17/17 03:30 03:45 03:57 Temperature 100.0 F H Pulse Rate 117 H 117 H Pulse Rate [ From Monitor] Respiratory 26 H 19 Rate Respiratory Rate [Left Anterior Leg] Blood Pressure 107/63 119/69 O2 Sat by Pulse 100 100 Oximetry 06/17/17 06/17/17 06/17/17 04:00 04:16 04:30 Temperature Pulse Rate 113 H 113 H Pulse Rate [ 117 H From Monitor] Respiratory 19 22 17 Rate Respiratory Rate [Left Anterior Leg] Blood Pressure 124/74 124/74 124/74 O2 Sat by Pulse 100 100 100 Oximetry 06/17/17 06/17/17 06/17/17 04:46 05:00 05:15 Temperature Pulse Rate 108 H 111 H 114 H Pulse Rate [ From Monitor] Respiratory 12 24 13 Rate Respiratory Rate [Left Anterior Leg] Blood Pressure 146/118 113/75 114/53 O2 Sat by Pulse 99 100 100 Oximetry 06/17/17 06/17/17 06/17/17 05:30 05:45 06:00 Temperature Pulse Rate 110 H 109 H 107 H Pulse Rate [ From Monitor] Respiratory 16 18 17 Rate Respiratory Rate [Left Anterior Leg] Blood Pressure 131/78 132/79 125/75 O2 Sat by Pulse 100 100 100 Oximetry 06/17/17 06/17/17 06/17/17 06:15 06:30 06:33 Temperature Pulse Rate 113 H 102 H Pulse Rate [ From Monitor] Respiratory 13 20 14 Rate Respiratory Rate [Left Anterior Leg] Blood Pressure 130/75 140/82 O2 Sat by Pulse 100 100 Oximetry 06/17/17 06/17/17 06/17/17 06:45 07:00 07:09 Temperature Pulse Rate 112 H 113 H Pulse Rate [ From Monitor] Respiratory 17 16 Rate Respiratory Rate [Left Anterior Leg] Blood Pressure 133/75 124/75 O2 Sat by Pulse 100 100 100 Oximetry 06/17/17 06/17/17 06/17/17 07:14 07:15 07:30 Temperature Pulse Rate 112 H 107 H Pulse Rate [ From Monitor] Respiratory 16 17 16 Rate Respiratory Rate [Left Anterior Leg] Blood Pressure 123/73 129/74 O2 Sat by Pulse 98 100 Oximetry 06/17/17 06/17/17 07:45 08:00 Temperature 98 F Pulse Rate 111 H 96 H Pulse Rate [ 96 H From Monitor] Respiratory 16 18 Rate Respiratory Rate [Left Anterior Leg] Blood Pressure 114/68 119/61 O2 Sat by Pulse 98 97 Oximetry General appearance: Present: no acute distress - EENT Eyes: PERRL ENT: hearing intact - Neck Neck: supple - Respiratory Respiratory effort: normal - Breasts Breasts: deferred - Cardiovascular Rhythm: other (tachycardic) Extremity abnormal: other - Gastrointestinal General gastrointestinal: Present: deferred Rectal Exam: deferred - Genitourinary Male genitourinary: deferred - Psychiatric Psychiatric: cooperative - Labs CBC & Chem 7: 06/17/17 04:40 06/17/17 04:40 Labs: Abnormal lab results 06/16/17 06/16/17 06/16/17 Range/Units 07:07 08:00 09:07 WBC (4.5-11.0) K/mm3 RBC (3.65-5.03) M/mm3 Hgb (11.8-15.2) gm/dl Hct (35.5-45.6) % RDW (13.2-15.2) % Plt Count (140-440) K/mm3 Lymph % (Auto) (13.4-35.0) % [place] % (Auto) (0.0-7.3) % Lymph # (1.2-5.4) K/mm3 [place] # (0.0-0.8) K/mm3 Seg Neutrophils % (40.0-70.0) % Seg Neutrophils # (1.8-7.7) K/mm3 POC ABG pCO2 (35-45) POC ABG pO2 (80-105) Sodium (137-145) mmol/L Chloride (98-107) mmol/L Carbon Dioxide (22-30) mmol/L BUN (9-20) mg/dL Glucose (75-100) mg/dL POC Glucose 127 H 113 H 106 H (70-105) Calcium (8.4-10.2) mg/dL AST (5-40) units/L Total Protein (6.3-8.2) g/dL Albumin (3.9-5) g/dL 06/16/17 06/16/17 06/16/17 Range/Units 10:11 10:59 11:28 WBC (4.5-11.0) K/mm3 RBC (3.65-5.03) M/mm3 Hgb (11.8-15.2) gm/dl Hct (35.5-45.6) % RDW (13.2-15.2) % Plt Count (140-440) K/mm3 Lymph % (Auto) (13.4-35.0) % [place] % (Auto) (0.0-7.3) % Lymph # (1.2-5.4) K/mm3 [place] # (0.0-0.8) K/mm3 Seg Neutrophils % (40.0-70.0) % Seg Neutrophils # (1.8-7.7) K/mm3 POC ABG pCO2 30.3 L (35-45) POC ABG pO2 118 H (80-105) Sodium (137-145) mmol/L Chloride (98-107) mmol/L Carbon Dioxide (22-30) mmol/L BUN (9-20) mg/dL Glucose (75-100) mg/dL POC Glucose 107 H 110 H (70-105) Calcium (8.4-10.2) mg/dL AST (5-40) units/L Total Protein (6.3-8.2) g/dL Albumin (3.9-5) g/dL 06/16/17 06/16/17 06/16/17 Range/Units 12:11 13:13 15:40 WBC (4.5-11.0) K/mm3 RBC (3.65-5.03) M/mm3 Hgb (11.8-15.2) gm/dl Hct (35.5-45.6) % RDW (13.2-15.2) % Plt Count (140-440) K/mm3 Lymph % (Auto) (13.4-35.0) % [place] % (Auto) (0.0-7.3) % Lymph # (1.2-5.4) K/mm3 [place] # (0.0-0.8) K/mm3 Seg Neutrophils % (40.0-70.0) % Seg Neutrophils # (1.8-7.7) K/mm3 POC ABG pCO2 (35-45) POC ABG pO2 (80-105) Sodium (137-145) mmol/L Chloride (98-107) mmol/L Carbon Dioxide (22-30) mmol/L BUN (9-20) mg/dL Glucose (75-100) mg/dL POC Glucose 109 H 111 H 143 H (70-105) Calcium (8.4-10.2) mg/dL AST (5-40) units/L Total Protein (6.3-8.2) g/dL Albumin (3.9-5) g/dL 06/16/17 06/16/17 06/16/17 Range/Units 18:18 19:08 20:05 WBC (4.5-11.0) K/mm3 RBC (3.65-5.03) M/mm3 Hgb (11.8-15.2) gm/dl Hct (35.5-45.6) % RDW (13.2-15.2) % Plt Count (140-440) K/mm3 Lymph % (Auto) (13.4-35.0) % [place] % (Auto) (0.0-7.3) % Lymph # (1.2-5.4) K/mm3 [place] # (0.0-0.8) K/mm3 Seg Neutrophils % (40.0-70.0) % Seg Neutrophils # (1.8-7.7) K/mm3 POC ABG pCO2 (35-45) POC ABG pO2 (80-105) Sodium (137-145) mmol/L Chloride (98-107) mmol/L Carbon Dioxide (22-30) mmol/L BUN (9-20) mg/dL Glucose (75-100) mg/dL POC Glucose 109 H 107 H 106 H (70-105) Calcium (8.4-10.2) mg/dL AST (5-40) units/L Total Protein (6.3-8.2) g/dL Albumin (3.9-5) g/dL 06/16/17 06/16/17 06/17/17 Range/Units 21:00 22:01 01:04 WBC (4.5-11.0) K/mm3 RBC (3.65-5.03) M/mm3 Hgb (11.8-15.2) gm/dl Hct (35.5-45.6) % RDW (13.2-15.2) % Plt Count (140-440) K/mm3 Lymph % (Auto) (13.4-35.0) % [place] % (Auto) (0.0-7.3) % Lymph # (1.2-5.4) K/mm3 [place] # (0.0-0.8) K/mm3 Seg Neutrophils % (40.0-70.0) % Seg Neutrophils # (1.8-7.7) K/mm3 POC ABG pCO2 (35-45) POC ABG pO2 (80-105) Sodium (137-145) mmol/L Chloride (98-107) mmol/L Carbon Dioxide (22-30) mmol/L BUN (9-20) mg/dL Glucose (75-100) mg/dL POC Glucose 119 H 142 H 106 H (70-105) Calcium (8.4-10.2) mg/dL AST (5-40) units/L Total Protein (6.3-8.2) g/dL Albumin (3.9-5) g/dL 06/17/17 06/17/17 06/17/17 Range/Units 02:02 02:44 03:42 WBC (4.5-11.0) K/mm3 RBC (3.65-5.03) M/mm3 Hgb (11.8-15.2) gm/dl Hct (35.5-45.6) % RDW (13.2-15.2) % Plt Count (140-440) K/mm3 Lymph % (Auto) (13.4-35.0) % [place] % (Auto) (0.0-7.3) % Lymph # (1.2-5.4) K/mm3 [place] # (0.0-0.8) K/mm3 Seg Neutrophils % (40.0-70.0) % Seg Neutrophils # (1.8-7.7) K/mm3 POC ABG pCO2 (35-45) POC ABG pO2 (80-105) Sodium (137-145) mmol/L Chloride (98-107) mmol/L Carbon Dioxide (22-30) mmol/L BUN (9-20) mg/dL Glucose (75-100) mg/dL POC Glucose 108 H 109 H 113 H (70-105) Calcium (8.4-10.2) mg/dL AST (5-40) units/L Total Protein (6.3-8.2) g/dL Albumin (3.9-5) g/dL 06/17/17 06/17/17 06/17/17 Range/Units 04:40 04:40 04:47 WBC 16.4 H (4.5-11.0) K/mm3 RBC 3.14 L (3.65-5.03) M/mm3 Hgb 9.4 L (11.8-15.2) gm/dl Hct 28.5 L (35.5-45.6) % RDW 16.0 H (13.2-15.2) % Plt Count 107 L (140-440) K/mm3 Lymph % (Auto) 5.0 L (13.4-35.0) % [place] % (Auto) 10.0 H (0.0-7.3) % Lymph # 0.8 L (1.2-5.4) K/mm3 [place] # 1.6 H (0.0-0.8) K/mm3 Seg Neutrophils % 84.4 H (40.0-70.0) % Seg Neutrophils # 13.8 H (1.8-7.7) K/mm3 POC ABG pCO2 (35-45) POC ABG pO2 (80-105) Sodium 150 H (137-145) mmol/L Chloride 110.8 H (98-107) mmol/L Carbon Dioxide 18 L (22-30) mmol/L BUN 25 H (9-20) mg/dL Glucose 107 H (75-100) mg/dL POC Glucose 132 H (70-105) Calcium 8.1 L (8.4-10.2) mg/dL AST 47 H (5-40) units/L Total Protein 5.4 L (6.3-8.2) g/dL Albumin 2.3 L (3.9-5) g/dL 06/17/17 06/17/17 06/17/17 Range/Units 05:33 07:19 08:53 WBC (4.5-11.0) K/mm3 RBC (3.65-5.03) M/mm3 Hgb (11.8-15.2) gm/dl Hct (35.5-45.6) % RDW (13.2-15.2) % Plt Count (140-440) K/mm3 Lymph % (Auto) (13.4-35.0) % [place] % (Auto) (0.0-7.3) % Lymph # (1.2-5.4) K/mm3 [place] # (0.0-0.8) K/mm3 Seg Neutrophils % (40.0-70.0) % Seg Neutrophils # (1.8-7.7) K/mm3 POC ABG pCO2 (35-45) POC ABG pO2 (80-105) Sodium (137-145) mmol/L Chloride (98-107) mmol/L Carbon Dioxide (22-30) mmol/L BUN (9-20) mg/dL Glucose (75-100) mg/dL POC Glucose 124 H 115 H 130 H (70-105) Calcium (8.4-10.2) mg/dL AST (5-40) units/L Total Protein (6.3-8.2) g/dL Albumin (3.9-5) g/dL
[2017-06-17] MEDS: DILAUDID IV PRN ×3 (11:03→20:58)
--- NOTE | 2017-06-17 11:43 | Progress Note ---
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 S/P wound vac to left medical surgical laceration site Severe PAD Recommendations: Wean levophed as tolerated Supportive care per ICU and primary team Subjective Date of service: 06/17/17 Principal diagnosis: Septic shock Interval history: Patient extubated, does not appear to be in any distress Objective Vital Signs Temp Pulse Pulse Resp Resp BP Pulse Ox 06/17/17 10:00 116 H 18 129/76 100 06/17/17 09:45 115 H 18 134/78 100 06/17/17 09:30 124 H 17 127/71 100 06/17/17 09:15 89 20 122/68 100 06/17/17 09:00 112 H 18 119/71 100 06/17/17 08:45 113 H 18 113/72 100 06/17/17 08:30 112 H 18 122/71 100 06/17/17 08:15 112 H 17 125/67 100 06/17/17 08:00 98 F 96 H 96 H 18 119/61 97 06/17/17 07:45 111 H 16 114/68 98 06/17/17 07:30 107 H 16 129/74 100 06/17/17 07:15 112 H 17 123/73 98 06/17/17 07:14 16 06/17/17 07:09 100 06/17/17 07:00 113 H 16 124/75 100 06/17/17 06:45 112 H 17 133/75 100 06/17/17 06:33 14 06/17/17 06:30 102 H 20 140/82 100 06/17/17 06:15 113 H 13 130/75 100 06/17/17 06:00 107 H 17 125/75 100 06/17/17 05:45 109 H 18 132/79 100 06/17/17 05:30 110 H 16 131/78 100 06/17/17 05:15 114 H 13 114/53 100 06/17/17 05:00 111 H 24 113/75 100 06/17/17 04:46 108 H 12 146/118 99 06/17/17 04:30 113 H 17 124/74 100 06/17/17 04:16 113 H 22 124/74 100 06/17/17 04:00 117 H 19 124/74 100 06/17/17 03:57 100.0 F H 06/17/17 03:45 117 H 19 119/69 100 06/17/17 03:30 117 H 26 H 107/63 100 06/17/17 03:15 116 H 20 102/58 100 06/17/17 03:00 116 H 22 101/58 99 06/17/17 02:45 118 H 23 105/58 100 06/17/17 02:30 118 H 22 102/59 100 06/17/17 02:15 118 H 21 91/51 97 06/17/17 02:00 109 H 16 104/54 100 06/17/17 01:45 113 H 18 98/54 100 06/17/17 01:30 102 H 15 90/55 100 06/17/17 01:15 113 H 18 93/55 100 06/17/17 01:10 17 06/17/17 01:00 114 H 20 98/55 100 06/17/17 00:45 106 H 19 99/58 100 06/17/17 00:30 100 H 21 102/50 100 06/17/17 00:16 115 H 17 102/55 100 06/17/17 00:10 17 06/17/17 00:00 98.8 F 113 H 113 H 22 110/62 100 06/16/17 23:45 99 H 19 118/68 100 06/16/17 23:30 111 H 15 117/69 100 06/16/17 23:15 92 H 16 109/64 100 06/16/17 23:00 107 H 19 118/68 100 06/16/17 22:45 107 H 17 123/72 100 06/16/17 22:30 114 H 18 117/68 100 06/16/17 22:15 92 H 16 106/56 100 06/16/17 22:00 109 H 17 18 114/60 100 06/16/17 21:45 99 H 18 117/63 100 06/16/17 21:30 107 H 15 118/68 100 06/16/17 21:15 107 H 17 113/60 100 06/16/17 21:08 96 H 18 113/63 100 06/16/17 21:00 110 H 17 113/63 100 06/16/17 20:45 108 H 18 106/62 100 06/16/17 20:30 94 H 16 111/60 100 06/16/17 20:15 104 H 18 107/59 100 06/16/17 20:00 108 H 108 H 22 109/60 100 06/16/17 19:53 100 06/16/17 19:45 116 H 17 110/64 100 06/16/17 19:30 99.9 F H 107 H 15 109/58 100 06/16/17 19:15 116 H 18 107/53 100 06/16/17 19:00 108 H 17 114/61 100 06/16/17 18:57 110 H 06/16/17 18:45 111 H 16 100/49 100 06/16/17 18:30 116 H 17 105/54 100 06/16/17 18:15 110 H 18 105/57 100 06/16/17 18:00 98 H 20 102/49 100 06/16/17 17:58 16 06/16/17 17:45 118 H 15 116/53 100 06/16/17 17:35 99.0 F 06/16/17 17:30 113 H 20 121/65 100 06/16/17 17:28 22 06/16/17 17:15 118 H 27 H 124/70 100 06/16/17 17:00 123 H 20 117/69 100 06/16/17 16:45 114 H 26 H 122/65 100 06/16/17 16:30 111 H 15 120/59 100 06/16/17 16:15 116 H 21 117/62 100 06/16/17 16:00 116 H 21 113/64 100 06/16/17 15:45 115 H 18 110/61 100 06/16/17 15:30 119 H 20 109/56 100 06/16/17 15:15 118 H 19 119/58 100 06/16/17 15:00 118 H 20 117/68 100 06/16/17 14:46 120 H 16 117/67 100 06/16/17 14:30 112 H 18 116/64 100 06/16/17 14:15 111 H 19 117/66 100 06/16/17 14:06 100 06/16/17 14:00 112 H 16 115/62 100 06/16/17 13:49 15 06/16/17 13:45 109 H 20 105/53 100 06/16/17 13:30 111 H 19 101/61 100 06/16/17 13:19 17 06/16/17 13:15 112 H 19 105/57 100 06/16/17 13:00 119 H 12 107/63 100 06/16/17 12:45 95 H 23 107/59 100 06/16/17 12:30 115 H 17 101/66 100 06/16/17 12:15 118 H 17 107/56 100 06/16/17 12:00 120 H 114 H 16 103/56 100 06/16/17 11:45 120 H 22 107/58 100 - Physical Examination Narrative exam: GEN: No acute distress HEENT: No JVD is evident NECK: Supple CVS: Heart sounds appear normal no murmur noted LUNGS/CHEST: Clear to auscultation ABD: Soft nontender General: Other (intubated, sedated) Neck: Positive: neck supple Abdomen: Positive: Soft - Labs and Meds Cardiac Enzymes 06/17/17 Range/Units 04:40 AST 47 H (5-40) units/L CBC 06/17/17 Range/Units 04:40 WBC 16.4 H (4.5-11.0) K/mm3 RBC 3.14 L (3.65-5.03) M/mm3 Hgb 9.4 L (11.8-15.2) gm/dl Hct 28.5 L (35.5-45.6) % Plt Count 107 L (140-440) K/mm3 Lymph # 0.8 L (1.2-5.4) K/mm3 [place] # 1.6 H (0.0-0.8) K/mm3 Eos # 0.1 (0.0-0.4) K/mm3 Baso # 0.0 (0.0-0.1) K/mm3 Comprehensive Metabolic Panel 06/17/17 Range/Units 04:40 Sodium 150 H (137-145) mmol/L Potassium 4.2 (3.6-5.0) mmol/L Chloride 110.8 H (98-107) mmol/L Carbon Dioxide 18 L (22-30) mmol/L BUN 25 H (9-20) mg/dL Creatinine 1.3 (0.8-1.5) mg/dL Glucose 107 H (75-100) mg/dL Calcium 8.1 L (8.4-10.2) mg/dL AST 47 H (5-40) units/L ALT 30 (7-56) units/L Alkaline Phosphatase 60 (35-129) units/L Total Protein 5.4 L (6.3-8.2) g/dL Albumin 2.3 L (3.9-5) g/dL
--- NOTE | 2017-06-17 13:55 | Progress Note ---
Assessment and Plan - Patient Problems (1) Respiratory failure Current Visit: Yes Status: Acute Qualifiers: Chronicity: C Respiratory failure complication: R Plan to address problem: Continue ventilator support as tolerated and wean as tolerated (2) Sepsis Current Visit: Yes Status: Acute Qualifiers: Sepsis type: sepsis due to unspecified organism Qualified Code(s): A41.9 - Sepsis, unspecified organism Plan to address problem: Continue IV antibiotics as ordered monitor labs (3) Hypertension Onset Date: 07/13/16 Current Visit: No Status: Chronic Qualifiers: Hypertension type: essential hypertension Qualified Code(s): I10 - Essential (primary) hypertension Plan to address problem: Continue to monitor blood pressure closely as restart blood pressure medication has BP tolerates (4) IDDM (insulin dependent diabetes mellitus) Current Visit: No Status: Chronic (5) PAD (peripheral artery disease) Onset Date: 08/22/16 Current Visit: No Status: Chronic Plan to address problem: Status post transmetatarsal amputation, continue wound VAC, wound care and IV antibiotics (6) Peripheral neuropathy Current Visit: No Status: Chronic Qualifiers: Peripheral neuropathy type: polyneuropathy associated with underlying disease Qualified Code(s): G63 - Polyneuropathy in diseases classified elsewhere Plan to address problem: Continue current management Subjective Date of service: 06/17/17 Principal diagnosis: Septic shock Interval history: Patient on the ventilator orally intubated . Patient is more alert and answering question appropriately , denied any pain ,no fever reported and blood pressure is stable . Objective - Exam Narrative Exam: GENERAL: Patient on the ventilator orally intubated, eyes open not in any distress not pale not jaundiced no cyanosis HEENT: Mucous membrane is moist NECK: [No JVD, no thyroid enlargement and no lymphadenopathy.] CHEST/LUNGS: [Good air exchange bilaterally, no wheeze, no rales and no rhonchi. ] [No chest wall tenderness, percussion is normal, symmetrical chest wall.] HEART/CARDIOVASCULAR: Tachycardia. Second heart sounds ABDOMEN: [Abdomen is soft, nondistended, no guarding, no rebound tenderness, no masses palpable per abdomen, active bowel sounds.] SKIN: [Warm and dry, no rash.] NEURO: Sedated on the ventilator able to move both upper and right lower extremities EXTREMITIES: Trace pedal edema in the right lower extremity. Left lower extremity with transmetatarsal amputation and wound VAC over the amputated foot , weak peripheral pulses bilaterally. - Constitutional Vitals: Vital Signs - 12hr 06/17/17 06/17/17 06/17/17 02:00 02:15 02:30 Temperature Pulse Rate 109 H 118 H 118 H Pulse Rate [ From Monitor] Respiratory 16 21 22 Rate Blood Pressure 104/54 91/51 102/59 O2 Sat by Pulse 100 97 100 Oximetry 06/17/17 06/17/17 06/17/17 02:45 03:00 03:15 Temperature Pulse Rate 118 H 116 H 116 H Pulse Rate [ From Monitor] Respiratory 23 22 20 Rate Blood Pressure 105/58 101/58 102/58 O2 Sat by Pulse 100 99 100 Oximetry 06/17/17 06/17/17 06/17/17 03:30 03:45 03:57 Temperature 100.0 F H Pulse Rate 117 H 117 H Pulse Rate [ From Monitor] Respiratory 26 H 19 Rate Blood Pressure 107/63 119/69 O2 Sat by Pulse 100 100 Oximetry 06/17/17 06/17/17 06/17/17 04:00 04:16 04:30 Temperature Pulse Rate 113 H 113 H Pulse Rate [ 117 H From Monitor] Respiratory 19 22 17 Rate Blood Pressure 124/74 124/74 124/74 O2 Sat by Pulse 100 100 100 Oximetry 06/17/17 06/17/17 06/17/17 04:46 05:00 05:15 Temperature Pulse Rate 108 H 111 H 114 H Pulse Rate [ From Monitor] Respiratory 12 24 13 Rate Blood Pressure 146/118 113/75 114/53 O2 Sat by Pulse 99 100 100 Oximetry 06/17/17 06/17/17 06/17/17 05:30 05:45 06:00 Temperature Pulse Rate 110 H 109 H 107 H Pulse Rate [ From Monitor] Respiratory 16 18 17 Rate Blood Pressure 131/78 132/79 125/75 O2 Sat by Pulse 100 100 100 Oximetry 06/17/17 06/17/17 06/17/17 06:15 06:30 06:33 Temperature Pulse Rate 113 H 102 H Pulse Rate [ From Monitor] Respiratory 13 20 14 Rate Blood Pressure 130/75 140/82 O2 Sat by Pulse 100 100 Oximetry 06/17/17 06/17/17 06/17/17 06:45 07:00 07:09 Temperature Pulse Rate 112 H 113 H Pulse Rate [ From Monitor] Respiratory 17 16 Rate Blood Pressure 133/75 124/75 O2 Sat by Pulse 100 100 100 Oximetry 06/17/17 06/17/17 06/17/17 07:14 07:15 07:30 Temperature Pulse Rate 112 H 107 H Pulse Rate [ From Monitor] Respiratory 16 17 16 Rate Blood Pressure 123/73 129/74 O2 Sat by Pulse 98 100 Oximetry 06/17/17 06/17/17 06/17/17 07:45 08:00 08:15 Temperature 98 F Pulse Rate 111 H 96 H 112 H Pulse Rate [ 96 H From Monitor] Respiratory 16 18 17 Rate Blood Pressure 114/68 119/61 125/67 O2 Sat by Pulse 98 97 100 Oximetry 06/17/17 06/17/17 06/17/17 08:30 08:45 09:00 Temperature Pulse Rate 112 H 113 H 112 H Pulse Rate [ From Monitor] Respiratory 18 18 18 Rate Blood Pressure 122/71 113/72 119/71 O2 Sat by Pulse 100 100 100 Oximetry 06/17/17 06/17/17 06/17/17 09:15 09:30 09:45 Temperature Pulse Rate 89 124 H 115 H Pulse Rate [ From Monitor] Respiratory 20 17 18 Rate Blood Pressure 122/68 127/71 134/78 O2 Sat by Pulse 100 100 100 Oximetry 06/17/17 06/17/17 06/17/17 10:00 10:15 10:30 Temperature Pulse Rate 116 H 112 H 113 H Pulse Rate [ From Monitor] Respiratory 18 20 13 Rate Blood Pressure 129/76 129/73 124/80 O2 Sat by Pulse 100 100 100 Oximetry 06/17/17 06/17/17 06/17/17 10:45 11:00 11:15 Temperature Pulse Rate 112 H 96 H 110 H Pulse Rate [ From Monitor] Respiratory 20 17 29 H Rate Blood Pressure 127/76 130/74 131/74 O2 Sat by Pulse 100 100 100 Oximetry 06/17/17 06/17/17 06/17/17 11:30 11:45 12:00 Temperature 98.6 F Pulse Rate 116 H 102 H 113 H Pulse Rate [ 113 H From Monitor] Respiratory 20 15 16 Rate Blood Pressure 128/76 118/76 128/72 O2 Sat by Pulse 100 100 100 Oximetry - Labs CBC & Chem 7: 06/17/17 04:40 06/17/17 04:40 Labs: Abnormal lab results 06/16/17 06/16/17 06/16/17 Range/Units 07:07 08:00 09:07 WBC (4.5-11.0) K/mm3 RBC (3.65-5.03) M/mm3 Hgb (11.8-15.2) gm/dl Hct (35.5-45.6) % RDW (13.2-15.2) % Plt Count (140-440) K/mm3 Lymph % (Auto) (13.4-35.0) % [place] % (Auto) (0.0-7.3) % Lymph # (1.2-5.4) K/mm3 [place] # (0.0-0.8) K/mm3 Seg Neutrophils % (40.0-70.0) % Seg Neutrophils # (1.8-7.7) K/mm3 Sodium (137-145) mmol/L Chloride (98-107) mmol/L Carbon Dioxide (22-30) mmol/L BUN (9-20) mg/dL Glucose (75-100) mg/dL POC Glucose 127 H 113 H 106 H (70-105) Calcium (8.4-10.2) mg/dL AST (5-40) units/L Total Protein (6.3-8.2) g/dL Albumin (3.9-5) g/dL 06/16/17 06/16/17 06/16/17 Range/Units 10:11 10:59 12:11 WBC (4.5-11.0) K/mm3 RBC (3.65-5.03) M/mm3 Hgb (11.8-15.2) gm/dl Hct (35.5-45.6) % RDW (13.2-15.2) % Plt Count (140-440) K/mm3 Lymph % (Auto) (13.4-35.0) % [place] % (Auto) (0.0-7.3) % Lymph # (1.2-5.4) K/mm3 [place] # (0.0-0.8) K/mm3 Seg Neutrophils % (40.0-70.0) % Seg Neutrophils # (1.8-7.7) K/mm3 Sodium (137-145) mmol/L Chloride (98-107) mmol/L Carbon Dioxide (22-30) mmol/L BUN (9-20) mg/dL Glucose (75-100) mg/dL POC Glucose 107 H 110 H 109 H (70-105) Calcium (8.4-10.2) mg/dL AST (5-40) units/L Total Protein (6.3-8.2) g/dL Albumin (3.9-5) g/dL 06/16/17 06/16/17 06/16/17 Range/Units 13:13 15:40 18:18 WBC (4.5-11.0) K/mm3 RBC (3.65-5.03) M/mm3 Hgb (11.8-15.2) gm/dl Hct (35.5-45.6) % RDW (13.2-15.2) % Plt Count (140-440) K/mm3 Lymph % (Auto) (13.4-35.0) % [place] % (Auto) (0.0-7.3) % Lymph # (1.2-5.4) K/mm3 [place] # (0.0-0.8) K/mm3 Seg Neutrophils % (40.0-70.0) % Seg Neutrophils # (1.8-7.7) K/mm3 Sodium (137-145) mmol/L Chloride (98-107) mmol/L Carbon Dioxide (22-30) mmol/L BUN (9-20) mg/dL Glucose (75-100) mg/dL POC Glucose 111 H 143 H 109 H (70-105) Calcium (8.4-10.2) mg/dL AST (5-40) units/L Total Protein (6.3-8.2) g/dL Albumin (3.9-5) g/dL 06/16/17 06/16/17 06/16/17 Range/Units 19:08 20:05 21:00 WBC (4.5-11.0) K/mm3 RBC (3.65-5.03) M/mm3 Hgb (11.8-15.2) gm/dl Hct (35.5-45.6) % RDW (13.2-15.2) % Plt Count (140-440) K/mm3 Lymph % (Auto) (13.4-35.0) % [place] % (Auto) (0.0-7.3) % Lymph # (1.2-5.4) K/mm3 [place] # (0.0-0.8) K/mm3 Seg Neutrophils % (40.0-70.0) % Seg Neutrophils # (1.8-7.7) K/mm3 Sodium (137-145) mmol/L Chloride (98-107) mmol/L Carbon Dioxide (22-30) mmol/L BUN (9-20) mg/dL Glucose (75-100) mg/dL POC Glucose 107 H 106 H 119 H (70-105) Calcium (8.4-10.2) mg/dL AST (5-40) units/L Total Protein (6.3-8.2) g/dL Albumin (3.9-5) g/dL 06/16/17 06/17/17 06/17/17 Range/Units 22:01 01:04 02:02 WBC (4.5-11.0) K/mm3 RBC (3.65-5.03) M/mm3 Hgb (11.8-15.2) gm/dl Hct (35.5-45.6) % RDW (13.2-15.2) % Plt Count (140-440) K/mm3 Lymph % (Auto) (13.4-35.0) % [place] % (Auto) (0.0-7.3) % Lymph # (1.2-5.4) K/mm3 [place] # (0.0-0.8) K/mm3 Seg Neutrophils % (40.0-70.0) % Seg Neutrophils # (1.8-7.7) K/mm3 Sodium (137-145) mmol/L Chloride (98-107) mmol/L Carbon Dioxide (22-30) mmol/L BUN (9-20) mg/dL Glucose (75-100) mg/dL POC Glucose 142 H 106 H 108 H (70-105) Calcium (8.4-10.2) mg/dL AST (5-40) units/L Total Protein (6.3-8.2) g/dL Albumin (3.9-5) g/dL 06/17/17 06/17/17 06/17/17 Range/Units 02:44 03:42 04:40 WBC 16.4 H (4.5-11.0) K/mm3 RBC 3.14 L (3.65-5.03) M/mm3 Hgb 9.4 L (11.8-15.2) gm/dl Hct 28.5 L (35.5-45.6) % RDW 16.0 H (13.2-15.2) % Plt Count 107 L (140-440) K/mm3 Lymph % (Auto) 5.0 L (13.4-35.0) % [place] % (Auto) 10.0 H (0.0-7.3) % Lymph # 0.8 L (1.2-5.4) K/mm3 [place] # 1.6 H (0.0-0.8) K/mm3 Seg Neutrophils % 84.4 H (40.0-70.0) % Seg Neutrophils # 13.8 H (1.8-7.7) K/mm3 Sodium (137-145) mmol/L Chloride (98-107) mmol/L Carbon Dioxide (22-30) mmol/L BUN (9-20) mg/dL Glucose (75-100) mg/dL POC Glucose 109 H 113 H (70-105) Calcium (8.4-10.2) mg/dL AST (5-40) units/L Total Protein (6.3-8.2) g/dL Albumin (3.9-5) g/dL 06/17/17 06/17/17 06/17/17 Range/Units 04:40 04:47 05:33 WBC (4.5-11.0) K/mm3 RBC (3.65-5.03) M/mm3 Hgb (11.8-15.2) gm/dl Hct (35.5-45.6) % RDW (13.2-15.2) % Plt Count (140-440) K/mm3 Lymph % (Auto) (13.4-35.0) % [place] % (Auto) (0.0-7.3) % Lymph # (1.2-5.4) K/mm3 [place] # (0.0-0.8) K/mm3 Seg Neutrophils % (40.0-70.0) % Seg Neutrophils # (1.8-7.7) K/mm3 Sodium 150 H (137-145) mmol/L Chloride 110.8 H (98-107) mmol/L Carbon Dioxide 18 L (22-30) mmol/L BUN 25 H (9-20) mg/dL Glucose 107 H (75-100) mg/dL POC Glucose 132 H 124 H (70-105) Calcium 8.1 L (8.4-10.2) mg/dL AST 47 H (5-40) units/L Total Protein 5.4 L (6.3-8.2) g/dL Albumin 2.3 L (3.9-5) g/dL 06/17/17 06/17/17 Range/Units 07:19 08:53 WBC (4.5-11.0) K/mm3 RBC (3.65-5.03) M/mm3 Hgb (11.8-15.2) gm/dl Hct (35.5-45.6) % RDW (13.2-15.2) % Plt Count (140-440) K/mm3 Lymph % (Auto) (13.4-35.0) % [place] % (Auto) (0.0-7.3) % Lymph # (1.2-5.4) K/mm3 [place] # (0.0-0.8) K/mm3 Seg Neutrophils % (40.0-70.0) % Seg Neutrophils # (1.8-7.7) K/mm3 Sodium (137-145) mmol/L Chloride (98-107) mmol/L Carbon Dioxide (22-30) mmol/L BUN (9-20) mg/dL Glucose (75-100) mg/dL POC Glucose 115 H 130 H (70-105) Calcium (8.4-10.2) mg/dL AST (5-40) units/L Total Protein (6.3-8.2) g/dL Albumin (3.9-5) g/dL
[2017-06-17] MEDS ORDERED: SODIUM BICARBONATE FEEDTUBE PRN (14:16)
[2017-06-17] MEDS ORDERED: SIMPLE SYRUP FEEDTUBE PRN ×2 (14:16)
[2017-06-17] MEDS ORDERED: PANCREAZE DR 10,500 UNIT FEEDTUBE PRN (14:16)
--- NOTE | 2017-06-17 14:24 | Progress Note ---
Assessment and Plan 76 y/o male with acute blood loss anemia and hypotension, hemorrhagic shock vs septic shock, now with debridement/surgery of left lower ext, found to be infected 1. Placed patient on Diabetasource until Nutrition able to see and give appropriate recs. 2. Wean FiO2 as tolerated. Sat is 100% on 2 liters. patient has no history of pulmonary disease 3. Vascular following in regards to calf graft and thrombosis status post repair 4. Abx should continue given surgical findings. 5. Shock is most likely multifactorial, sepsis and hemorrhage. Improved and off of levophed now 6. Will continue to follow, prognosis is guarded to poor. Patient is a DNR 8. Hypernatremia improving with free water flushes. Will continue 9. starting insulin drip for better control of sugars given extensive infection. now that starting to feed, will continue drip. CCT 31 minutes. Subjective Date of service: 06/17/17 Principal diagnosis: Septic shock Interval history: No acute events. Successful extubation. DH placed but no nutrition teacher available for consult on yesterday. Family at bedside. Sugars have been stable. Objective Vital Signs - 12hr 06/17/17 06/17/17 06/17/17 02:30 02:45 03:00 Temperature Pulse Rate 118 H 118 H 116 H Pulse Rate [ From Monitor] Respiratory 22 23 22 Rate Blood Pressure 102/59 105/58 101/58 O2 Sat by Pulse 100 100 99 Oximetry 06/17/17 06/17/17 06/17/17 03:15 03:30 03:45 Temperature Pulse Rate 116 H 117 H 117 H Pulse Rate [ From Monitor] Respiratory 20 26 H 19 Rate Blood Pressure 102/58 107/63 119/69 O2 Sat by Pulse 100 100 100 Oximetry 06/17/17 06/17/17 06/17/17 03:57 04:00 04:16 Temperature 100.0 F H Pulse Rate 113 H Pulse Rate [ 117 H From Monitor] Respiratory 19 22 Rate Blood Pressure 124/74 124/74 O2 Sat by Pulse 100 100 Oximetry 06/17/17 06/17/17 06/17/17 04:30 04:46 05:00 Temperature Pulse Rate 113 H 108 H 111 H Pulse Rate [ From Monitor] Respiratory 17 12 24 Rate Blood Pressure 124/74 146/118 113/75 O2 Sat by Pulse 100 99 100 Oximetry 08/04/2806/17/17 06/17/17 05:15 05:30 05:45 Temperature Pulse Rate 114 H 110 H 109 H Pulse Rate [ From Monitor] Respiratory 13 16 18 Rate Blood Pressure 114/53 131/78 132/79 O2 Sat by Pulse 100 100 100 Oximetry 06/17/17 06/17/17 06/17/17 06:00 06:15 06:30 Temperature Pulse Rate 107 H 113 H 102 H Pulse Rate [ From Monitor] Respiratory 17 13 20 Rate Blood Pressure 125/75 130/75 140/82 O2 Sat by Pulse 100 100 100 Oximetry 06/17/17 06/17/17 06/17/17 06:33 06:45 07:00 Temperature Pulse Rate 112 H 113 H Pulse Rate [ From Monitor] Respiratory 14 17 16 Rate Blood Pressure 133/75 124/75 O2 Sat by Pulse 100 100 Oximetry 06/17/17 06/17/17 06/17/17 07:09 07:14 07:15 Temperature Pulse Rate 112 H Pulse Rate [ From Monitor] Respiratory 16 17 Rate Blood Pressure 123/73 O2 Sat by Pulse 100 98 Oximetry 06/17/17 06/17/17 06/17/17 07:30 07:45 08:00 Temperature 98 F Pulse Rate 107 H 111 H 96 H Pulse Rate [ 96 H From Monitor] Respiratory 16 16 18 Rate Blood Pressure 129/74 114/68 119/61 O2 Sat by Pulse 100 98 97 Oximetry 06/17/17 06/17/17 06/17/17 08:15 08:30 08:45 Temperature Pulse Rate 112 H 112 H 113 H Pulse Rate [ From Monitor] Respiratory 17 18 18 Rate Blood Pressure 125/67 122/71 113/72 O2 Sat by Pulse 100 100 100 Oximetry 06/17/17 06/17/17 06/17/17 09:00 09:15 09:30 Temperature Pulse Rate 112 H 89 124 H Pulse Rate [ From Monitor] Respiratory 18 20 17 Rate Blood Pressure 119/71 122/68 127/71 O2 Sat by Pulse 100 100 100 Oximetry 06/17/17 06/17/17 06/17/17 09:45 10:00 10:15 Temperature Pulse Rate 115 H 116 H 112 H Pulse Rate [ From Monitor] Respiratory 18 18 20 Rate Blood Pressure 134/78 129/76 129/73 O2 Sat by Pulse 100 100 100 Oximetry 06/17/17 06/17/17 06/17/17 10:30 10:45 11:00 Temperature Pulse Rate 113 H 112 H 96 H Pulse Rate [ From Monitor] Respiratory 13 20 17 Rate Blood Pressure 124/80 127/76 130/74 O2 Sat by Pulse 100 100 100 Oximetry 06/17/17 06/17/17 06/17/17 11:15 11:30 11:45 Temperature Pulse Rate 110 H 116 H 102 H Pulse Rate [ From Monitor] Respiratory 29 H 20 15 Rate Blood Pressure 131/74 128/76 118/76 O2 Sat by Pulse 100 100 100 Oximetry 06/17/17 12:00 Temperature 98.6 F Pulse Rate 113 H Pulse Rate [ 113 H From Monitor] Respiratory 16 Rate Blood Pressure 128/72 O2 Sat by Pulse 100 Oximetry Constitutional: alert, other (orally intubated and critically ill on the vent) Eyes: non-icteric Neck: supple Effort: normal Ascultation: Bilateral: clear Percussion: Bilateral: not dull Cardiovascular: regular rate and rhythm (sinus tachycardia) Gastrointestinal: normoactive bowel sounds, soft Extremities: other (wound vacs in place on left) Neurologic: unable to assess CBC and BMP: 06/17/17 04:40 06/17/17 04:40 ABG, PT/INR, D-dimer: ABG POC ABG pH 7.424 (7.35-7.45) 06/16/17 11:28 POC ABG pCO2 30.3 (35-45) L 06/16/17 11:28 POC ABG pO2 118 (80-105) H 06/16/17 11:28 POC ABG HCO3 19.8 06/16/17 11:28 POC ABG Total CO2 21 06/16/17 11:28 POC ABG O2 Sat 99 06/16/17 11:28 PT/INR, D-dimer PT 15.9 Sec. (12.2-14.9) H 06/14/17 07:42 INR 1.28 (0.87-1.13) H 06/14/17 07:42 Abnormal lab findings: Abnormal Labs 06/13/17 06/13/17 06/13/17 00:18 05:20 10:28 WBC RBC Hgb 6.3 L 7.1 L Hct 19.6 L* 22.1 L RDW Plt Count Lymph % (Auto) [place] % (Auto) Lymph # [place] # Seg Neutrophils % Seg Neuts % (Manual) Lymphocytes % (Manual) Monocytes % (Manual) Seg Neutrophils # Seg Neutrophils # Man Lymphocytes # (Manual) Monocytes # (Manual) PT INR POC ABG pH POC ABG pCO2 POC ABG pO2 Sodium Potassium Chloride Carbon Dioxide BUN Creatinine Glucose POC Glucose 289 H Calcium AST Total Protein Albumin Crossmatch 06/13/17 06/13/17 06/13/17 12:00 16:20 18:45 WBC RBC Hgb 9.9 L 8.8 L Hct 28.8 L D 26.5 L RDW Plt Count Lymph % (Auto) [place] % (Auto) Lymph # [place] # Seg Neutrophils % Seg Neuts % (Manual) Lymphocytes % (Manual) Monocytes % (Manual) Seg Neutrophils # Seg Neutrophils # Man Lymphocytes # (Manual) Monocytes # (Manual) PT INR POC ABG pH POC ABG pCO2 POC ABG pO2 Sodium Potassium Chloride Carbon Dioxide BUN Creatinine Glucose POC Glucose 292 H Calcium AST Total Protein Albumin Crossmatch 06/13/17 06/13/17 06/13/17 18:49 21:13 Unknown WBC RBC Hgb 9.3 L Hct 27.8 L RDW Plt Count Lymph % (Auto) [place] % (Auto) Lymph # [place] # Seg Neutrophils % Seg Neuts % (Manual) Lymphocytes % (Manual) Monocytes % (Manual) Seg Neutrophils # Seg Neutrophils # Man Lymphocytes # (Manual) Monocytes # (Manual) PT INR POC ABG pH POC ABG pCO2 POC ABG pO2 Sodium Potassium Chloride Carbon Dioxide BUN Creatinine Glucose POC Glucose 252 H 234 H Calcium AST Total Protein Albumin Crossmatch 06/14/17 06/14/17 06/14/17 00:24 01:53 04:44 WBC RBC Hgb 8.5 L 8.2 L Hct 25.7 L 25.1 L RDW Plt Count Lymph % (Auto) [place] % (Auto) Lymph # [place] # Seg Neutrophils % Seg Neuts % (Manual) Lymphocytes % (Manual) Monocytes % (Manual) Seg Neutrophils # Seg Neutrophils # Man Lymphocytes # (Manual) Monocytes # (Manual) PT INR POC ABG pH POC ABG pCO2 POC ABG pO2 Sodium Potassium Chloride Carbon Dioxide BUN Creatinine Glucose POC Glucose 213 H Calcium AST Total Protein Albumin Crossmatch 06/14/17 06/14/17 06/14/17 05:49 07:42 07:42 WBC 12.2 H RBC 2.77 L Hgb 8.1 L Hct 25.0 L RDW 15.7 H Plt Count Lymph % (Auto) [place] % (Auto) Lymph # [place] # Seg Neutrophils % Seg Neuts % (Manual) Lymphocytes % (Manual) Monocytes % (Manual) Seg Neutrophils # Seg Neutrophils # Man Lymphocytes # (Manual) Monocytes # (Manual) PT 15.9 H INR 1.28 H POC ABG pH POC ABG pCO2 POC ABG pO2 Sodium Potassium Chloride Carbon Dioxide BUN Creatinine Glucose POC Glucose 218 H Calcium AST Total Protein Albumin Crossmatch 06/14/17 06/14/17 06/14/17 07:42 14:31 16:45 WBC 14.0 H RBC 3.61 L Hgb 10.9 L Hct 32.8 L D RDW 15.8 H Plt Count Lymph % (Auto) [place] % (Auto) Lymph # [place] # Seg Neutrophils % Seg Neuts % (Manual) Lymphocytes % (Manual) Monocytes % (Manual) Seg Neutrophils # Seg Neutrophils # Man Lymphocytes # (Manual) Monocytes # (Manual) PT INR POC ABG pH POC ABG pCO2 POC ABG pO2 Sodium 146 H D Potassium Chloride 110.2 H Carbon Dioxide 15 L D BUN 25 H Creatinine Glucose 185 H POC Glucose 235 H Calcium 8.0 L AST Total Protein 5.1 L Albumin 2.0 L Crossmatch 06/14/17 06/14/17 06/14/17 19:34 19:45 19:45 WBC 13.1 H RBC 3.33 L Hgb 9.9 L Hct 29.7 L RDW 15.7 H Plt Count 126 L Lymph % (Auto) [place] % (Auto) Lymph # [place] # Seg Neutrophils % Seg Neuts % (Manual) Lymphocytes % (Manual) Monocytes % (Manual) Seg Neutrophils # Seg Neutrophils # Man Lymphocytes # (Manual) Monocytes # (Manual) PT INR POC ABG pH POC ABG pCO2 POC ABG pO2 Sodium 148 H Potassium 5.7 H D Chloride 108.5 H Carbon Dioxide 12 L BUN 29 H Creatinine 1.7 H Glucose 324 H POC Glucose 296 H Calcium 7.9 L AST Total Protein Albumin Crossmatch 06/14/17 06/14/17 06/14/17 20:05 21:53 23:06 WBC RBC Hgb Hct RDW Plt Count Lymph % (Auto) [place] % (Auto) Lymph # [place] # Seg Neutrophils % Seg Neuts % (Manual) Lymphocytes % (Manual) Monocytes % (Manual) Seg Neutrophils # Seg Neutrophils # Man Lymphocytes # (Manual) Monocytes # (Manual) PT INR POC ABG pH 7.241 L 7.298 L POC ABG pCO2 32.3 L 26.8 L POC ABG pO2 550 H 303 H Sodium Potassium Chloride Carbon Dioxide BUN Creatinine Glucose POC Glucose 259 H Calcium AST Total Protein Albumin Crossmatch 06/15/17 06/15/17 06/15/17 02:08 06:00 06:15 WBC RBC Hgb 8.8 L Hct 26.4 L RDW Plt Count Lymph % (Auto) [place] % (Auto) Lymph # [place] # Seg Neutrophils % Seg Neuts % (Manual) Lymphocytes % (Manual) Monocytes % (Manual) Seg Neutrophils # Seg Neutrophils # Man Lymphocytes # (Manual) Monocytes # (Manual) PT INR POC ABG pH POC ABG pCO2 POC ABG pO2 Sodium Potassium Chloride Carbon Dioxide BUN Creatinine Glucose POC Glucose 334 H 233 H Calcium AST Total Protein Albumin Crossmatch 06/15/17 06/15/17 06/15/17 06:15 06:54 09:32 WBC RBC Hgb Hct RDW Plt Count Lymph % (Auto) [place] % (Auto) Lymph # [place] # Seg Neutrophils % Seg Neuts % (Manual) Lymphocytes % (Manual) Monocytes % (Manual) Seg Neutrophils # Seg Neutrophils # Man Lymphocytes # (Manual) Monocytes # (Manual) PT INR POC ABG pH POC ABG pCO2 34.4 L POC ABG pO2 191 H Sodium 151 H Potassium Chloride 114.7 H Carbon Dioxide 18 L BUN 29 H Creatinine 1.8 H Glucose 259 H POC Glucose 229 H Calcium 7.7 L AST Total Protein Albumin Crossmatch 06/15/17 06/15/17 06/15/17 11:35 12:32 13:36 WBC RBC Hgb Hct RDW Plt Count Lymph % (Auto) [place] % (Auto) Lymph # [place] # Seg Neutrophils % Seg Neuts % (Manual) Lymphocytes % (Manual) Monocytes % (Manual) Seg Neutrophils # Seg Neutrophils # Man Lymphocytes # (Manual) Monocytes # (Manual) PT INR POC ABG pH POC ABG pCO2 POC ABG pO2 Sodium Potassium Chloride Carbon Dioxide BUN Creatinine Glucose POC Glucose 202 H 189 H Calcium AST Total Protein Albumin Crossmatch See Detail 06/15/17 06/15/17 06/15/17 14:30 15:32 16:28 WBC RBC Hgb Hct RDW Plt Count Lymph % (Auto) [place] % (Auto) Lymph # [place] # Seg Neutrophils % Seg Neuts % (Manual) Lymphocytes % (Manual) Monocytes % (Manual) Seg Neutrophils # Seg Neutrophils # Man Lymphocytes # (Manual) Monocytes # (Manual) PT INR POC ABG pH POC ABG pCO2 POC ABG pO2 Sodium Potassium Chloride Carbon Dioxide BUN Creatinine Glucose POC Glucose 142 H 106 H 119 H Calcium AST Total Protein Albumin Crossmatch 06/15/17 06/15/17 06/15/17 17:36 19:30 20:51 WBC RBC Hgb Hct RDW Plt Count Lymph % (Auto) [place] % (Auto) Lymph # [place] # Seg Neutrophils % Seg Neuts % (Manual) Lymphocytes % (Manual) Monocytes % (Manual) Seg Neutrophils # Seg Neutrophils # Man Lymphocytes # (Manual) Monocytes # (Manual) PT INR POC ABG pH POC ABG pCO2 POC ABG pO2 Sodium Potassium Chloride Carbon Dioxide BUN Creatinine Glucose POC Glucose 121 H 109 H 112 H Calcium AST Total Protein Albumin Crossmatch 06/15/17 06/15/17 06/16/17 21:42 23:27 01:11 WBC RBC Hgb Hct RDW Plt Count Lymph % (Auto) [place] % (Auto) Lymph # [place] # Seg Neutrophils % Seg Neuts % (Manual) Lymphocytes % (Manual) Monocytes % (Manual) Seg Neutrophils # Seg Neutrophils # Man Lymphocytes # (Manual) Monocytes # (Manual) PT INR POC ABG pH POC ABG pCO2 POC ABG pO2 Sodium Potassium Chloride Carbon Dioxide BUN Creatinine Glucose POC Glucose 122 H 142 H 162 H Calcium AST Total Protein Albumin Crossmatch 06/16/17 06/16/17 06/16/17 02:03 02:57 04:05 WBC RBC Hgb Hct RDW Plt Count Lymph % (Auto) [place] % (Auto) Lymph # [place] # Seg Neutrophils % Seg Neuts % (Manual) Lymphocytes % (Manual) Monocytes % (Manual) Seg Neutrophils # Seg Neutrophils # Man Lymphocytes # (Manual) Monocytes # (Manual) PT INR POC ABG pH POC ABG pCO2 POC ABG pO2 Sodium Potassium Chloride Carbon Dioxide BUN Creatinine Glucose POC Glucose 117 H 106 H 108 H Calcium AST Total Protein Albumin Crossmatch 06/16/17 06/16/17 06/16/17 05:09 05:23 06:03 WBC RBC Hgb Hct RDW Plt Count Lymph % (Auto) [place] % (Auto) Lymph # [place] # Seg Neutrophils % Seg Neuts % (Manual) Lymphocytes % (Manual) Monocytes % (Manual) Seg Neutrophils # Seg Neutrophils # Man Lymphocytes # (Manual) Monocytes # (Manual) PT INR POC ABG pH POC ABG pCO2 POC ABG pO2 Sodium Potassium Chloride Carbon Dioxide BUN Creatinine Glucose POC Glucose 114 H 125 H 138 H Calcium AST Total Protein Albumin Crossmatch 06/16/17 06/16/17 06/16/17 06:25 06:25 07:07 WBC 14.7 H RBC 3.28 L Hgb 9.8 L Hct 29.1 L RDW 15.7 H Plt Count 117 L Lymph % (Auto) [place] % (Auto) Lymph # [place] # Seg Neutrophils % Seg Neuts % (Manual) 81.0 H Lymphocytes % (Manual) 3.0 L Monocytes % (Manual) 15.0 H Seg Neutrophils # Seg Neutrophils # Man 11.9 H Lymphocytes # (Manual) 0.4 L Monocytes # (Manual) 2.2 H PT INR POC ABG pH POC ABG pCO2 POC ABG pO2 Sodium 155 H Potassium Chloride 117.9 H Carbon Dioxide BUN 22 H Creatinine Glucose 107 H POC Glucose 127 H Calcium 7.9 L AST 57 H Total Protein 5.4 L Albumin 2.4 L Crossmatch 06/16/17 06/16/17 06/16/17 08:00 09:07 10:11 WBC RBC Hgb Hct RDW Plt Count Lymph % (Auto) [place] % (Auto) Lymph # [place] # Seg Neutrophils % Seg Neuts % (Manual) Lymphocytes % (Manual) Monocytes % (Manual) Seg Neutrophils # Seg Neutrophils # Man Lymphocytes # (Manual) Monocytes # (Manual) PT INR POC ABG pH POC ABG pCO2 POC ABG pO2 Sodium Potassium Chloride Carbon Dioxide BUN Creatinine Glucose POC Glucose 113 H 106 H 107 H Calcium AST Total Protein Albumin Crossmatch 06/16/17 06/16/17 06/16/17 10:59 11:28 12:11 WBC RBC Hgb Hct RDW Plt Count Lymph % (Auto) [place] % (Auto) Lymph # [place] # Seg Neutrophils % Seg Neuts % (Manual) Lymphocytes % (Manual) Monocytes % (Manual) Seg Neutrophils # Seg Neutrophils # Man Lymphocytes # (Manual) Monocytes # (Manual) PT INR POC ABG pH POC ABG pCO2 30.3 L POC ABG pO2 118 H Sodium Potassium Chloride Carbon Dioxide BUN Creatinine Glucose POC Glucose 110 H 109 H Calcium AST Total Protein Albumin Crossmatch 06/16/17 06/16/17 06/16/17 13:13 15:40 18:18 WBC RBC Hgb Hct RDW Plt Count Lymph % (Auto) [place] % (Auto) Lymph # [place] # Seg Neutrophils % Seg Neuts % (Manual) Lymphocytes % (Manual) Monocytes % (Manual) Seg Neutrophils # Seg Neutrophils # Man Lymphocytes # (Manual) Monocytes # (Manual) PT INR POC ABG pH POC ABG pCO2 POC ABG pO2 Sodium Potassium Chloride Carbon Dioxide BUN Creatinine Glucose POC Glucose 111 H 143 H 109 H Calcium AST Total Protein Albumin Crossmatch 06/16/17 06/16/17 06/16/17 19:08 20:05 21:00 WBC RBC Hgb Hct RDW Plt Count Lymph % (Auto) [place] % (Auto) Lymph # [place] # Seg Neutrophils % Seg Neuts % (Manual) Lymphocytes % (Manual) Monocytes % (Manual) Seg Neutrophils # Seg Neutrophils # Man Lymphocytes # (Manual) Monocytes # (Manual) PT INR POC ABG pH POC ABG pCO2 POC ABG pO2 Sodium Potassium Chloride Carbon Dioxide BUN Creatinine Glucose POC Glucose 107 H 106 H 119 H Calcium AST Total Protein Albumin Crossmatch 06/16/17 06/17/17 06/17/17 22:01 01:04 02:02 WBC RBC Hgb Hct RDW Plt Count Lymph % (Auto) [place] % (Auto) Lymph # [place] # Seg Neutrophils % Seg Neuts % (Manual) Lymphocytes % (Manual) Monocytes % (Manual) Seg Neutrophils # Seg Neutrophils # Man Lymphocytes # (Manual) Monocytes # (Manual) PT INR POC ABG pH POC ABG pCO2 POC ABG pO2 Sodium Potassium Chloride Carbon Dioxide BUN Creatinine Glucose POC Glucose 142 H 106 H 108 H Calcium AST Total Protein Albumin Crossmatch 06/17/17 06/17/17 06/17/17 02:44 03:42 04:40 WBC 16.4 H RBC 3.14 L Hgb 9.4 L Hct 28.5 L RDW 16.0 H Plt Count 107 L Lymph % (Auto) 5.0 L [place] % (Auto) 10.0 H Lymph # 0.8 L [place] # 1.6 H Seg Neutrophils % 84.4 H Seg Neuts % (Manual) Lymphocytes % (Manual) Monocytes % (Manual) Seg Neutrophils # 13.8 H Seg Neutrophils # Man Lymphocytes # (Manual) Monocytes # (Manual) PT INR POC ABG pH POC ABG pCO2 POC ABG pO2 Sodium Potassium Chloride Carbon Dioxide BUN Creatinine Glucose POC Glucose 109 H 113 H Calcium AST Total Protein Albumin Crossmatch 06/17/17 06/17/17 06/17/17 04:40 04:47 05:33 WBC RBC Hgb Hct RDW Plt Count Lymph % (Auto) [place] % (Auto) Lymph # [place] # Seg Neutrophils % Seg Neuts % (Manual) Lymphocytes % (Manual) Monocytes % (Manual) Seg Neutrophils # Seg Neutrophils # Man Lymphocytes # (Manual) Monocytes # (Manual) PT INR POC ABG pH POC ABG pCO2 POC ABG pO2 Sodium 150 H Potassium Chloride 110.8 H Carbon Dioxide 18 L BUN 25 H Creatinine Glucose 107 H POC Glucose 132 H 124 H Calcium 8.1 L AST 47 H Total Protein 5.4 L Albumin 2.3 L Crossmatch 06/17/17 06/17/17 07:19 08:53 WBC RBC Hgb Hct RDW Plt Count Lymph % (Auto) [place] % (Auto) Lymph # [place] # Seg Neutrophils % Seg Neuts % (Manual) Lymphocytes % (Manual) Monocytes % (Manual) Seg Neutrophils # Seg Neutrophils # Man Lymphocytes # (Manual) Monocytes # (Manual) PT INR POC ABG pH POC ABG pCO2 POC ABG pO2 Sodium Potassium Chloride Carbon Dioxide BUN Creatinine Glucose POC Glucose 115 H 130 H Calcium AST Total Protein Albumin Crossmatch
[2017-06-18] MEDS: MERREM 1,000 MG in NACL 0.9% 100 ML IV SCH ×3 (01:28→18:55)
[2017-06-18] MEDS: DILAUDID IV PRN ×3 (03:25→13:26)
[2017-06-18] MEDS: VANCOMYCIN/NS 1 GM/250 ML 1 GM/250 ML BAG IV SCH ×2 (05:22→19:00)
[2017-06-18] MEDS: NovoLIN R 100 UNITS in NACL 0.9% 99 ML IV SCH (06:00)
[2017-06-18 06:54] LABS: Basophils % (Auto) 0.2 % (0.0-1.8); Eosinophils % (Auto) 0.6 % (0.0-4.3); Hematocrit 32.3 % (35.5-45.6); Hemoglobin 10.5 gm/dl (11.8-15.2); Mean Corpuscular HGB Conc 32 % (32-34); Mean Corpuscular Hemoglobin 30 pg (28-32); Mean Corpuscular Volume 92 fl (84-94); Platelet Count 120 K/mm3 (140-440); Red Blood Count 3.52 M/mm3 (3.65-5.03); Red Cell Distribution Width 15.7 % (13.2-15.2); White Blood Count 17.1 K/mm3 (4.5-11.0)
[2017-06-18 07:18] LABS: Alanine Aminotransferase 28 units/L (7-56); Albumin 2.2 g/dL (3.9-5); Albumin/Globulin Ratio 0.6 %; Alkaline Phosphatase 68 units/L (35-129); Anion Gap 27 mmol/L; BUN/Creatinine Ratio 21.53; Blood Urea Nitrogen 28 mg/dL (9-20); Calcium 8.4 mg/dL (8.4-10.2); Carbon Dioxide 17 mmol/L (22-30); Chloride 113.4 mmol/L (98-107); Glucose 150 mg/dL (75-100); Potassium 4.2 mmol/L (3.6-5.0); Sodium 153 mmol/L (137-145); Total Protein 5.6 g/dL (6.3-8.2)
--- NOTE | 2017-06-18 07:21 | XRay Report ---
Single view chest: Compared to 06/17/17. History: Followup of respiratory failure. Findings: Cardiomegaly. Trachea is midline. Mild pulmonary venous congestion right lung. Haziness at the right lower lobe is less pronounced compared to previous study dated normal CP angles. Impression: Cardiomegaly with mild unilateral right-sided pulmonary venous congestion.
[2017-06-18] MEDS: PEPCID IV SCH ×2 (09:37→23:43)
--- NOTE | 2017-06-18 10:00 | Progress Note ---
Assessment and Plan Patient is a 76 year old male with hx of PAD, S/P multiple vascular surgeries including a TMA with a wound VAC that malfunctioned leading to blood loss S/p re-do bypass, as the distal portion of the bypass felt to be infected. Bypass tissue friable and would not hold repair sutures. Arm vein harvested and distal portion bypassed around to lower portion of the [employer]. Patient also has history of CAD CABG more than many years ago, ischemic cardiomyopathy hypertension diabetes hyperlipidemia with last known ejection fraction of 40-45% Presents to long term with hypotension, fever. With no improvement despite multiple fluid suspicion was placed on pressors in the ER, admitted to the hospital. -Septic shock w/possible hemorrhagic shock -Infected hematoma of the left femoral; hematoma and infected left femoral tibial graft s/p revision of the same 06/14/17 -Acute blood loss anemia -Uncontrolled diabetes mellitus- imporving on insulin drip -CAD s/p CABG -Tachycardia with PVC -Diabetic wound -Hyperkalemia - imporved -S/P Partial foot amputation- Left -S/P wound vac to left medical surgical laceration site -Severe PAD PLAN * S/p Redo of left Popliteal * Continue supportive care, discussed with offset machine operator, Vascular surgery, ED and patients family * S/P 5 units PRBC, Monitor h/h, Transfuse as needed * Repeat Stat Lactate, * Continue IV abx, wound cultures, blood cultures, ID consult * Follow up recs from vascular surgery * Wound care consult when ok With Vascular * Cardiology consult and monitor Electrolytes * Accucheck Q1hr. On insulin drip * Called Pt's Daughter, Valentin. No response. Left a messageDiscussed extensively with family and Patient- He is a DNR/DNI * DVT/GI prophy Subjective Date of service: 06/18/17 Principal diagnosis: Septic shock Interval history: Extubated. Still sliglly drowsy Objective - Constitutional Vitals: Vital Signs - 12hr 06/17/17 06/17/17 06/17/17 22:00 22:15 22:30 Temperature Pulse Rate 101 H 125 H 115 H Pulse Rate [ From Monitor] Respiratory 16 13 14 Rate Respiratory 17 Rate [Left Anterior Leg] Respiratory 17 Rate [Left Foot ] Blood Pressure 129/67 123/73 117/71 O2 Sat by Pulse 100 100 100 Oximetry 06/17/17 06/17/17 06/17/17 22:45 22:46 23:00 Temperature Pulse Rate 105 H 108 H 101 H Pulse Rate [ From Monitor] Respiratory 13 14 15 Rate Respiratory Rate [Left Anterior Leg] Respiratory Rate [Left Foot ] Blood Pressure 110/68 110/68 113/67 O2 Sat by Pulse 100 100 100 Oximetry 06/17/17 06/17/17 06/17/17 23:15 23:30 23:39 Temperature 98 F Pulse Rate 100 H 103 H Pulse Rate [ From Monitor] Respiratory 14 14 Rate Respiratory Rate [Left Anterior Leg] Respiratory Rate [Left Foot ] Blood Pressure 106/59 109/63 O2 Sat by Pulse 100 100 Oximetry 06/17/17 06/18/17 06/18/17 23:45 00:00 00:15 Temperature Pulse Rate 120 H 114 H 99 H Pulse Rate [ 102 H From Monitor] Respiratory 13 18 16 Rate Respiratory Rate [Left Anterior Leg] Respiratory Rate [Left Foot ] Blood Pressure 121/69 113/68 121/62 O2 Sat by Pulse 100 100 100 Oximetry 06/18/17 06/18/17 06/18/17 00:30 00:45 01:00 Temperature Pulse Rate 117 H 106 H 95 H Pulse Rate [ From Monitor] Respiratory 17 15 14 Rate Respiratory Rate [Left Anterior Leg] Respiratory Rate [Left Foot ] Blood Pressure 124/74 124/65 134/73 O2 Sat by Pulse 100 100 100 Oximetry 06/18/17 06/18/17 06/18/17 01:16 01:30 01:45 Temperature Pulse Rate 119 H 114 H 92 H Pulse Rate [ From Monitor] Respiratory 14 16 16 Rate Respiratory Rate [Left Anterior Leg] Respiratory Rate [Left Foot ] Blood Pressure 134/73 121/81 121/20 O2 Sat by Pulse 100 100 100 Oximetry 06/18/17 06/18/17 06/18/17 02:00 02:15 02:30 Temperature Pulse Rate 113 H 97 H 115 H Pulse Rate [ From Monitor] Respiratory 16 17 17 Rate Respiratory Rate [Left Anterior Leg] Respiratory Rate [Left Foot ] Blood Pressure 119/71 119/71 140/86 O2 Sat by Pulse 98 100 100 Oximetry 06/18/17 06/18/17 06/18/17 02:45 03:01 03:15 Temperature Pulse Rate 117 H 100 H 99 H Pulse Rate [ From Monitor] Respiratory 18 22 18 Rate Respiratory Rate [Left Anterior Leg] Respiratory Rate [Left Foot ] Blood Pressure 140/86 130/69 130/69 O2 Sat by Pulse 100 100 99 Oximetry 06/18/17 06/18/17 06/18/17 03:25 03:30 03:45 Temperature 99.8 F H Pulse Rate 99 H 100 H Pulse Rate [ From Monitor] Respiratory 18 18 14 Rate Respiratory Rate [Left Anterior Leg] Respiratory Rate [Left Foot ] Blood Pressure 126/62 126/62 O2 Sat by Pulse 100 100 Oximetry 06/18/17 06/18/17 06/18/17 03:55 04:00 04:15 Temperature Pulse Rate 100 H 102 H Pulse Rate [ 98 H From Monitor] Respiratory 19 15 14 Rate Respiratory Rate [Left Anterior Leg] Respiratory Rate [Left Foot ] Blood Pressure 129/72 129/72 O2 Sat by Pulse 100 100 Oximetry 06/18/17 06/18/17 06/18/17 04:30 04:45 05:01 Temperature Pulse Rate 122 H 99 H 97 H Pulse Rate [ From Monitor] Respiratory 16 15 17 Rate Respiratory Rate [Left Anterior Leg] Respiratory Rate [Left Foot ] Blood Pressure 115/67 129/72 117/63 O2 Sat by Pulse 100 100 100 Oximetry 06/18/17 06/18/17 06/18/17 05:15 05:31 05:45 Temperature Pulse Rate 115 H 99 H 102 H Pulse Rate [ From Monitor] Respiratory 16 17 18 Rate Respiratory Rate [Left Anterior Leg] Respiratory Rate [Left Foot ] Blood Pressure 117/63 133/77 133/77 O2 Sat by Pulse 100 99 100 Oximetry 06/18/17 06/18/17 06/18/17 06:00 06:15 07:41 Temperature Pulse Rate 101 H 119 H 116 H Pulse Rate [ From Monitor] Respiratory 16 16 18 Rate Respiratory Rate [Left Anterior Leg] Respiratory Rate [Left Foot ] Blood Pressure 114/70 121/66 126/70 O2 Sat by Pulse 100 98 94 Oximetry 06/18/17 06/18/17 06/18/17 07:45 07:59 08:00 Temperature 98.6 F Pulse Rate 104 H 116 H Pulse Rate [ From Monitor] Respiratory 13 16 Rate Respiratory Rate [Left Anterior Leg] Respiratory Rate [Left Foot ] Blood Pressure 126/70 137/81 O2 Sat by Pulse 99 97 99 Oximetry 06/18/17 06/18/17 06/18/17 08:15 08:31 08:45 Temperature Pulse Rate 116 H 100 H 115 H Pulse Rate [ From Monitor] Respiratory 16 19 15 Rate Respiratory Rate [Left Anterior Leg] Respiratory Rate [Left Foot ] Blood Pressure 137/81 137/81 137/81 O2 Sat by Pulse 97 100 98 Oximetry 06/18/17 09:01 Temperature Pulse Rate 120 H Pulse Rate [ From Monitor] Respiratory 16 Rate Respiratory Rate [Left Anterior Leg] Respiratory Rate [Left Foot ] Blood Pressure 147/91 O2 Sat by Pulse 100 Oximetry General appearance: Present: well-nourished - EENT Eyes: PERRL, EOM intact - Neck Neck: supple, normal ROM - Respiratory Respiratory effort: normal Respiratory: bilateral: CTA - Cardiovascular Rhythm: regular Heart Sounds: Present: S1 & S2. Absent: gallop, rub Extremities: pulses intact, No edema, normal color, Full ROM - Gastrointestinal General gastrointestinal: Present: soft, non-tender, non-distended, normal bowel sounds - Integumentary Integumentary: clear, warm, dry - Musculoskeletal Musculoskeletal: generalized weakness - Neurologic Neurologic: moves all extremities - Labs CBC & Chem 7: 06/18/17 05:00 06/18/17 05:00 Labs: Abnormal lab results 06/17/17 06/17/17 06/17/17 Range/Units 08:02 12:08 17:46 WBC (4.5-11.0) K/mm3 RBC (3.65-5.03) M/mm3 Hgb (11.8-15.2) gm/dl Hct (35.5-45.6) % RDW (13.2-15.2) % Plt Count (140-440) K/mm3 Lymph % (Auto) (13.4-35.0) % [place] % (Auto) (0.0-7.3) % [place] # (0.0-0.8) K/mm3 Seg Neutrophils % (40.0-70.0) % Seg Neutrophils # (1.8-7.7) K/mm3 Sodium (137-145) mmol/L Chloride (98-107) mmol/L Carbon Dioxide (22-30) mmol/L BUN (9-20) mg/dL Glucose (75-100) mg/dL POC Glucose 119 H 125 H 112 H (70-105) Total Protein (6.3-8.2) g/dL Albumin (3.9-5) g/dL Vancomycin Trough (5.0-20.0) ug/mL 06/17/17 06/18/17 06/18/17 Range/Units 23:49 05:00 05:00 WBC 17.1 H (4.5-11.0) K/mm3 RBC 3.52 L (3.65-5.03) M/mm3 Hgb 10.5 L (11.8-15.2) gm/dl Hct 32.3 L (35.5-45.6) % RDW 15.7 H (13.2-15.2) % Plt Count 120 L (140-440) K/mm3 Lymph % (Auto) 6.8 L (13.4-35.0) % [place] % (Auto) 9.6 H (0.0-7.3) % [place] # 1.6 H (0.0-0.8) K/mm3 Seg Neutrophils % 82.8 H (40.0-70.0) % Seg Neutrophils # 14.1 H (1.8-7.7) K/mm3 Sodium 153 H (137-145) mmol/L Chloride 113.4 H (98-107) mmol/L Carbon Dioxide 17 L (22-30) mmol/L BUN 28 H (9-20) mg/dL Glucose 150 H (75-100) mg/dL POC Glucose 162 H (70-105) Total Protein 5.6 L (6.3-8.2) g/dL Albumin 2.2 L (3.9-5) g/dL Vancomycin Trough (5.0-20.0) ug/mL 06/18/17 06/18/17 Range/Units 05:00 05:23 WBC (4.5-11.0) K/mm3 RBC (3.65-5.03) M/mm3 Hgb (11.8-15.2) gm/dl Hct (35.5-45.6) % RDW (13.2-15.2) % Plt Count (140-440) K/mm3 Lymph % (Auto) (13.4-35.0) % [place] % (Auto) (0.0-7.3) % [place] # (0.0-0.8) K/mm3 Seg Neutrophils % (40.0-70.0) % Seg Neutrophils # (1.8-7.7) K/mm3 Sodium (137-145) mmol/L Chloride (98-107) mmol/L Carbon Dioxide (22-30) mmol/L BUN (9-20) mg/dL Glucose (75-100) mg/dL POC Glucose 204 H (70-105) Total Protein (6.3-8.2) g/dL Albumin (3.9-5) g/dL Vancomycin Trough 29.4 H (5.0-20.0) ug/mL - Imaging and cardiology EKG: report reviewed
--- NOTE | 2017-06-18 10:04 | Progress Note ---
Assessment and Plan - Patient Problems (1) Sepsis Current Visit: Yes Status: Acute Qualifiers: Sepsis type: sepsis due to unspecified organism Qualified Code(s): A41.9 - Sepsis, unspecified organism Plan to address problem: 1. Continue Meropenem pending identification of Gram negative rods from wound. 2. Continue Vancomycin also given multiple wounds. (2) PAD (peripheral artery disease) Onset Date: 08/22/16 Current Visit: No Status: Chronic Subjective Date of service: 06/18/17 Principal diagnosis: Septic shock Interval history: Remains critically ill in ICU. Afebrile past 24 hours. Objective - Constitutional Vitals: Vital Signs Temp Pulse Resp BP Pulse Ox 98.6 F 120 H 16 147/91 100 06/18/17 08:00 06/18/17 09:01 06/18/17 09:01 06/18/17 09:01 06/18/17 09:01 Temperature -Last 24 Hours Temperature 98.6 F Temperature 99.8 F Temperature 98 F Temperature 98.4 F Temperature 98.6 F General appearance: Present: no acute distress, other (conversant) - EENT ENT: other (Dobhoff in place) - Neck Neck: supple - Respiratory Respiratory: bilateral: CTA - Cardiovascular Rhythm: irregularly irregular Extremity abnormal: edema (unchanged left leg with wound vac at left foot stump , left calf and left groin) - Gastrointestinal General gastrointestinal: Present: soft, non-distended - Integumentary Integumentary: no jaundice, no rash - Neurologic Neurologic: no focal deficits - Psychiatric Psychiatric: appropriate mood/affect - Labs CBC & Chem 7: 06/18/17 05:00 06/18/17 05:00 Labs: Abnormal lab results 06/17/17 06/17/17 06/17/17 Range/Units 08:02 12:08 17:46 WBC (4.5-11.0) K/mm3 RBC (3.65-5.03) M/mm3 Hgb (11.8-15.2) gm/dl Hct (35.5-45.6) % RDW (13.2-15.2) % Plt Count (140-440) K/mm3 Lymph % (Auto) (13.4-35.0) % [place] % (Auto) (0.0-7.3) % [place] # (0.0-0.8) K/mm3 Seg Neutrophils % (40.0-70.0) % Seg Neutrophils # (1.8-7.7) K/mm3 Sodium (137-145) mmol/L Chloride (98-107) mmol/L Carbon Dioxide (22-30) mmol/L BUN (9-20) mg/dL Glucose (75-100) mg/dL POC Glucose 119 H 125 H 112 H (70-105) Total Protein (6.3-8.2) g/dL Albumin (3.9-5) g/dL Vancomycin Trough (5.0-20.0) ug/mL 06/17/17 06/18/17 06/18/17 Range/Units 23:49 05:00 05:00 WBC 17.1 H (4.5-11.0) K/mm3 RBC 3.52 L (3.65-5.03) M/mm3 Hgb 10.5 L (11.8-15.2) gm/dl Hct 32.3 L (35.5-45.6) % RDW 15.7 H (13.2-15.2) % Plt Count 120 L (140-440) K/mm3 Lymph % (Auto) 6.8 L (13.4-35.0) % [place] % (Auto) 9.6 H (0.0-7.3) % [place] # 1.6 H (0.0-0.8) K/mm3 Seg Neutrophils % 82.8 H (40.0-70.0) % Seg Neutrophils # 14.1 H (1.8-7.7) K/mm3 Sodium 153 H (137-145) mmol/L Chloride 113.4 H (98-107) mmol/L Carbon Dioxide 17 L (22-30) mmol/L BUN 28 H (9-20) mg/dL Glucose 150 H (75-100) mg/dL POC Glucose 162 H (70-105) Total Protein 5.6 L (6.3-8.2) g/dL Albumin 2.2 L (3.9-5) g/dL Vancomycin Trough (5.0-20.0) ug/mL 06/18/17 06/18/17 Range/Units 05:00 05:23 WBC (4.5-11.0) K/mm3 RBC (3.65-5.03) M/mm3 Hgb (11.8-15.2) gm/dl Hct (35.5-45.6) % RDW (13.2-15.2) % Plt Count (140-440) K/mm3 Lymph % (Auto) (13.4-35.0) % [place] % (Auto) (0.0-7.3) % [place] # (0.0-0.8) K/mm3 Seg Neutrophils % (40.0-70.0) % Seg Neutrophils # (1.8-7.7) K/mm3 Sodium (137-145) mmol/L Chloride (98-107) mmol/L Carbon Dioxide (22-30) mmol/L BUN (9-20) mg/dL Glucose (75-100) mg/dL POC Glucose 204 H (70-105) Total Protein (6.3-8.2) g/dL Albumin (3.9-5) g/dL Vancomycin Trough 29.4 H (5.0-20.0) ug/mL Microbiology 06/14/17 Unknown Leg - Left Surgical Biopsy Culture - Preliminary Gram Negative Luis Manuel Gram Negative Luis Manuel#2 06/14/17 Unknown Leg - Left Anaerobic Culture - Preliminary 06/12/17 19:35 Peripheral/Venous Blood Culture - Final NO GROWTH AFTER 5 DAYS 06/12/17 18:17 Peripheral/Venous Blood Culture - Final NO GROWTH AFTER 5 DAYS 06/14/17 Unknown Leg - Left Surgical Culture - Preliminary Gram Negative Luis Manuel Gram Negative Luis Manuel#2 06/14/17 Unknown Tracheal Aspirate Sputum Culture - Final 06/12/17 19:11 Urine,Catheterized - Cytoscopic/Bilateral Urine Culture - Final NO GROWTH AFTER 48 HOURS
--- NOTE | 2017-06-18 10:46 | Progress Note ---
Assessment and Plan Assessment: Septic shock w/possible hemorrhagic shock Infected hematoma of the left femoral; hematoma and infected left femoral tibial graft s/p revision of the same 06/14/17 Acute blood loss anemia Uncontrolled diabetes mellitus CAD s/p CABG Fixed inferior and inferolateral wall defect 05/2017, no ischemia on MPI EF 40-45% on echocardiogram 05/2017 Multifocal atrial tachycardia on tele Severe PAD Recommendations: Start low dose diltiazem po for multifocal atrial tachycardia Supportive care per ICU and primary team Subjective Date of service: 06/18/17 Principal diagnosis: Septic shock Interval history: Patient is doing well. He was extubated and is now off pressors. He denies chest pain or shortness of breath Objective Vital Signs Temp Pulse Pulse Resp Resp Resp BP 06/18/17 09:01 120 H 16 147/91 06/18/17 08:45 115 H 15 137/81 06/18/17 08:31 100 H 19 137/81 06/18/17 08:15 116 H 16 137/81 06/18/17 08:00 98.6 F 116 H 16 137/81 06/18/17 07:59 06/18/17 07:45 104 H 13 126/70 06/18/17 07:41 116 H 18 126/70 06/18/17 06:15 119 H 16 121/66 06/18/17 06:00 101 H 16 114/70 06/18/17 05:45 102 H 18 133/77 06/18/17 05:31 99 H 17 133/77 06/18/17 05:15 115 H 16 117/63 06/18/17 05:01 97 H 17 117/63 06/18/17 04:45 99 H 15 129/72 06/18/17 04:30 122 H 16 115/67 06/18/17 04:15 102 H 14 129/72 06/18/17 04:00 100 H 98 H 15 129/72 06/18/17 03:55 19 06/18/17 03:45 100 H 14 126/62 06/18/17 03:30 99 H 18 126/62 06/18/17 03:25 99.8 F H 18 06/18/17 03:15 99 H 18 130/69 06/18/17 03:01 100 H 22 130/69 06/18/17 02:45 117 H 18 140/86 06/18/17 02:30 115 H 17 140/86 06/18/17 02:15 97 H 17 119/71 06/18/17 02:00 113 H 16 119/71 06/18/17 01:45 92 H 16 121/20 06/18/17 01:30 114 H 16 121/81 06/18/17 01:16 119 H 14 134/73 06/18/17 01:00 95 H 14 134/73 06/18/17 00:45 106 H 15 124/65 06/18/17 00:30 117 H 17 124/74 06/18/17 00:15 99 H 16 121/62 06/18/17 00:00 114 H 102 H 18 113/68 06/17/17 23:45 120 H 13 121/69 06/17/17 23:39 98 F 06/17/17 23:30 103 H 14 109/63 06/17/17 23:15 100 H 14 106/59 06/17/17 23:00 101 H 15 113/67 06/17/17 22:46 108 H 14 110/68 06/17/17 22:45 105 H 13 110/68 06/17/17 22:30 115 H 14 117/71 06/17/17 22:15 125 H 13 123/73 06/17/17 22:00 101 H 16 17 17 129/67 06/17/17 21:45 95 H 15 133/70 06/17/17 21:30 118 H 19 134/71 06/17/17 21:15 98 H 15 124/68 06/17/17 21:00 101 H 18 114/67 06/17/17 20:58 27 H 06/17/17 20:45 101 H 23 125/79 06/17/17 20:30 103 H 21 140/87 06/17/17 20:15 98 H 18 129/71 06/17/17 20:05 06/17/17 20:00 117 H 119 H 21 128/72 06/17/17 19:47 98.4 F 06/17/17 19:45 116 H 16 137/68 06/17/17 19:30 95 H 18 134/63 06/17/17 19:15 98 H 16 129/63 06/17/17 19:00 98 H 18 119/65 06/17/17 18:55 27 H 06/17/17 18:45 97 H 18 120/58 06/17/17 18:30 99 H 17 121/61 06/17/17 18:25 20 06/17/17 18:15 98 H 21 129/68 06/17/17 18:00 99 H 21 133/75 06/17/17 17:46 109 H 11 L 133/68 06/17/17 17:30 99 H 20 133/68 06/17/17 17:15 99 H 17 121/65 06/17/17 17:00 111 H 16 121/75 06/17/17 16:45 96 H 18 137/75 06/17/17 16:30 101 H 15 134/67 06/17/17 16:15 92 H 15 142/74 06/17/17 16:00 117 H 18 144/85 06/17/17 15:45 99 H 18 142/66 06/17/17 15:30 116 H 15 141/77 06/17/17 15:15 112 H 16 137/69 06/17/17 15:00 91 H 16 125/67 06/17/17 14:45 94 H 15 131/72 06/17/17 14:30 92 H 19 121/76 06/17/17 14:15 93 H 14 128/74 06/17/17 14:00 114 H 10 L 136/72 06/17/17 13:45 93 H 21 107/62 06/17/17 13:30 91 H 16 104/68 06/17/17 13:15 93 H 16 109/70 06/17/17 13:00 113 H 12 124/76 06/17/17 12:46 116 H 16 132/55 06/17/17 12:30 96 H 18 131/83 06/17/17 12:15 116 H 16 122/74 06/17/17 12:00 98.6 F 113 H 113 H 16 128/72 06/17/17 11:45 102 H 15 118/76 06/17/17 11:30 116 H 20 128/76 06/17/17 11:15 110 H 29 H 131/74 06/17/17 11:00 96 H 17 130/74 Pulse Ox 06/18/17 09:01 100 06/18/17 08:45 98 06/18/17 08:31 100 06/18/17 08:15 97 06/18/17 08:00 99 06/18/17 07:59 97 06/18/17 07:45 99 06/18/17 07:41 94 06/18/17 06:15 98 06/18/17 06:00 100 06/18/17 05:45 100 06/18/17 05:31 99 06/18/17 05:15 100 06/18/17 05:01 100 06/18/17 04:45 100 06/18/17 04:30 100 06/18/17 04:15 100 06/18/17 04:00 100 06/18/17 03:55 06/18/17 03:45 100 06/18/17 03:30 100 06/18/17 03:25 06/18/17 03:15 99 06/18/17 03:01 100 06/18/17 02:45 100 06/18/17 02:30 100 06/18/17 02:15 100 06/18/17 02:00 98 06/18/17 01:45 100 06/18/17 01:30 100 06/18/17 01:16 100 06/18/17 01:00 100 06/18/17 00:45 100 06/18/17 00:30 100 06/18/17 00:15 100 06/18/17 00:00 100 06/17/17 23:45 100 06/17/17 23:39 06/17/17 23:30 100 06/17/17 23:15 100 06/17/17 23:00 100 06/17/17 22:46 100 06/17/17 22:45 100 06/17/17 22:30 100 06/17/17 22:15 100 06/17/17 22:00 100 06/17/17 21:45 100 06/17/17 21:30 100 06/17/17 21:15 100 06/17/17 21:00 100 06/17/17 20:58 06/17/17 20:45 100 06/17/17 20:30 100 06/17/17 20:15 100 06/17/17 20:05 100 06/17/17 20:00 100 06/17/17 19:47 06/17/17 19:45 100 06/17/17 19:30 06/17/17 19:15 06/17/17 19:00 06/17/17 18:55 06/17/17 18:45 06/17/17 18:30 06/17/17 18:25 06/17/17 18:15 06/17/17 18:00 100 06/17/17 17:46 98 06/17/17 17:30 06/17/17 17:15 06/17/17 17:00 06/17/17 16:45 06/17/17 16:30 06/17/17 16:15 100 06/17/17 16:00 06/17/17 15:45 06/17/17 15:30 06/17/17 15:15 06/17/17 15:00 06/17/17 14:45 06/17/17 14:30 06/17/17 14:15 06/17/17 14:00 06/17/17 13:45 06/17/17 13:30 06/17/17 13:15 06/17/17 13:00 06/17/17 12:46 06/17/17 12:30 06/17/17 12:15 06/17/17 12:00 06/17/17 11:45 06/17/17 11:30 06/17/17 11:15 06/17/17 11:00 100 - Physical Examination General: Other (intubated, sedated) Neck: Positive: neck supple Cardiac: Positive: irregularly irregular Lungs: Positive: clear to auscultation Abdomen: Positive: Soft - Labs and Meds Cardiac Enzymes 06/18/17 Range/Units 05:00 AST 31 (5-40) units/L CBC 06/18/17 Range/Units 05:00 WBC 17.1 H (4.5-11.0) K/mm3 RBC 3.52 L (3.65-5.03) M/mm3 Hgb 10.5 L (11.8-15.2) gm/dl Hct 32.3 L (35.5-45.6) % Plt Count 120 L (140-440) K/mm3 Lymph # 1.2 (1.2-5.4) K/mm3 [place] # 1.6 H (0.0-0.8) K/mm3 Eos # 0.1 (0.0-0.4) K/mm3 Baso # 0.0 (0.0-0.1) K/mm3 Comprehensive Metabolic Panel 06/18/17 Range/Units 05:00 Sodium 153 H (137-145) mmol/L Potassium 4.2 (3.6-5.0) mmol/L Chloride 113.4 H (98-107) mmol/L Carbon Dioxide 17 L (22-30) mmol/L BUN 28 H (9-20) mg/dL Creatinine 1.3 (0.8-1.5) mg/dL Glucose 150 H (75-100) mg/dL Calcium 8.4 (8.4-10.2) mg/dL AST 31 (5-40) units/L ALT 28 (7-56) units/L Alkaline Phosphatase 68 (35-129) units/L Total Protein 5.6 L (6.3-8.2) g/dL Albumin 2.2 L (3.9-5) g/dL - Imaging and Cardiology EKG: report reviewed
[2017-06-18] MEDS: CARDIZEM PO SCH ×2 (13:21→23:43)
[2017-06-18] MEDS: NORCO 5/325 PO PRN ×2 (15:06→23:45)
--- NOTE | 2017-06-18 15:10 | Progress Note ---
Assessment and Plan Pt s/p redo pop-tib portion of previous bypass using arm vein. Pt extubated over the weekend. Family states he's had AMS since extubation. Will check CT of the head and consult Neuro. Lower portion of bypass is reported as thrombosed. L foot is cool, but he does not appear to be in significant pain at present. ET to change vac. If tissue is not viable, then he may need higher level amp at some point. Discussed pt's condition with his eldest daughter. All questions asked and answered. - Patient Problems (1) Atherosclerosis of [place] arteries of the extremities with gangrene Current Visit: Yes Status: Acute Qualifiers: Peripheral atherosclerosis location: P Laterality: L (2) Acute blood loss anemia Current Visit: Yes Status: Acute (3) Hypotension Current Visit: Yes Status: Acute Qualifiers: Hypotension type: H Trimester: T (4) Postoperative hemorrhage Current Visit: Yes Status: Acute Qualifiers: Surgical complication system/body Area: S Procedure type: P Laterality: L (5) CAD (coronary artery disease) Current Visit: No Status: Chronic Qualifiers: Coronary Disease-Associated Artery/Lesion type: [place] artery [place] vs. transplanted heart: N Associated angina: without angina (6) Type 2 diabetes mellitus Onset Date: 07/13/16 Current Visit: No Status: Chronic Qualifiers: Diabetes mellitus complication status: with neurologic complications Diabetes mellitus complication detail: with autonomic neuropathy Diabetic retinopathy severity: D Proliferative retinopathy type: P Diabetes mellitus macular edema: D Diabetes mellitus care home insulin use: with long term care pharmacist use Laterality: L Chronic kidney disease stage: C Qualified Code(s): E11.43 - Type 2 diabetes mellitus with diabetic autonomic (poly)neuropathy; Z79.4 - half-way (current) use of insulin (7) Altered mental status Current Visit: Yes Status: Acute Qualifiers: Altered mental status type: A Coma depth: C Coma timing: C Subjective Date of service: 06/18/17 Principal diagnosis: Septic shock Interval history: Pt awake, limited verbal response to verbal stimulus. Responded with short answers to questions from daughter. Did not answer when prompted if he was in discomfort. Objective - Constitutional Vitals: Vital Signs - 12hr 06/18/17 06/18/17 06/18/17 03:15 03:25 03:30 Temperature 99.8 F H Pulse Rate 99 H 99 H Pulse Rate [ From Monitor] Respiratory 18 18 18 Rate Blood Pressure 130/69 126/62 O2 Sat by Pulse 99 100 Oximetry 06/18/17 06/18/17 06/18/17 03:45 03:55 04:00 Temperature Pulse Rate 100 H 100 H Pulse Rate [ 98 H From Monitor] Respiratory 14 19 15 Rate Blood Pressure 126/62 129/72 O2 Sat by Pulse 100 100 Oximetry 06/18/17 06/18/17 06/18/17 04:15 04:30 04:45 Temperature Pulse Rate 102 H 122 H 99 H Pulse Rate [ From Monitor] Respiratory 14 16 15 Rate Blood Pressure 129/72 115/67 129/72 O2 Sat by Pulse 100 100 100 Oximetry 06/18/17 06/18/17 06/18/17 05:01 05:15 05:31 Temperature Pulse Rate 97 H 115 H 99 H Pulse Rate [ From Monitor] Respiratory 17 16 17 Rate Blood Pressure 117/63 117/63 133/77 O2 Sat by Pulse 100 100 99 Oximetry 06/18/17 06/18/17 06/18/17 05:45 06:00 06:15 Temperature Pulse Rate 102 H 101 H 119 H Pulse Rate [ From Monitor] Respiratory 18 16 16 Rate Blood Pressure 133/77 114/70 121/66 O2 Sat by Pulse 100 100 98 Oximetry 06/18/17 06/18/17 06/18/17 07:41 07:45 07:59 Temperature Pulse Rate 116 H 104 H Pulse Rate [ From Monitor] Respiratory 18 13 Rate Blood Pressure 126/70 126/70 O2 Sat by Pulse 94 99 97 Oximetry 06/18/17 06/18/17 06/18/17 08:00 08:15 08:31 Temperature 98.6 F Pulse Rate 116 H 116 H 100 H Pulse Rate [ From Monitor] Respiratory 16 16 19 Rate Blood Pressure 137/81 137/81 137/81 O2 Sat by Pulse 99 97 100 Oximetry 06/18/17 06/18/17 06/18/17 08:45 09:01 09:15 Temperature Pulse Rate 115 H 120 H 116 H Pulse Rate [ From Monitor] Respiratory 15 16 19 Rate Blood Pressure 137/81 147/91 147/91 O2 Sat by Pulse 98 100 87 Oximetry 06/18/17 06/18/17 06/18/17 09:31 09:45 10:00 Temperature Pulse Rate 99 H 119 H 117 H Pulse Rate [ From Monitor] Respiratory 18 16 15 Rate Blood Pressure 147/91 147/91 145/82 O2 Sat by Pulse 100 100 100 Oximetry 06/18/17 06/18/17 06/18/17 10:15 10:31 10:45 Temperature Pulse Rate 114 H 120 H 115 H Pulse Rate [ From Monitor] Respiratory 14 16 16 Rate Blood Pressure 145/82 145/82 145/82 O2 Sat by Pulse 100 100 100 Oximetry 06/18/17 06/18/17 06/18/17 11:00 11:15 11:31 Temperature Pulse Rate 121 H 119 H 116 H Pulse Rate [ From Monitor] Respiratory 15 18 15 Rate Blood Pressure 143/76 143/76 143/76 O2 Sat by Pulse 99 99 100 Oximetry 06/18/17 06/18/17 06/18/17 11:45 12:00 12:15 Temperature 98.3 F Pulse Rate 119 H 120 H 116 H Pulse Rate [ From Monitor] Respiratory 19 18 17 Rate Blood Pressure 143/76 150/94 150/94 O2 Sat by Pulse 98 100 100 Oximetry 06/18/17 06/18/17 13:21 13:26 Temperature Pulse Rate 103 H Pulse Rate [ From Monitor] Respiratory 20 Rate Blood Pressure 154/79 O2 Sat by Pulse Oximetry General appearance: Present: no acute distress - EENT Eyes: EOM intact ENT: hearing intact - Neck Neck: supple - Respiratory Respiratory effort: normal - Cardiovascular Heart rate: 117 Extremities: abnormal (Wound vac in place. LLE warm to distal 1/3 of the lower leg and cool at ankle and foot.) - Neurologic Neurologic: other (?left sided neglect) - Psychiatric Psychiatric: no appropriate mood/affect, no intact judgment & insight, no cooperative (pt is awake, answers a few questions with short answers (but seemingly with limited understanding)) - Labs CBC & Chem 7: 06/18/17 05:00 06/18/17 05:00 Labs: Abnormal lab results 06/17/17 06/17/17 06/17/17 Range/Units 08:02 10:00 11:05 WBC (4.5-11.0) K/mm3 RBC (3.65-5.03) M/mm3 Hgb (11.8-15.2) gm/dl Hct (35.5-45.6) % RDW (13.2-15.2) % Plt Count (140-440) K/mm3 Lymph % (Auto) (13.4-35.0) % Clark % (Auto) (0.0-7.3) % Clark # (0.0-0.8) K/mm3 Seg Neutrophils % (40.0-70.0) % Seg Neutrophils # (1.8-7.7) K/mm3 Sodium (137-145) mmol/L Chloride (98-107) mmol/L Carbon Dioxide (22-30) mmol/L BUN (9-20) mg/dL Glucose (75-100) mg/dL POC Glucose 119 H 122 H 131 H (70-105) Total Protein (6.3-8.2) g/dL Albumin (3.9-5) g/dL Vancomycin Trough (5.0-20.0) ug/mL 06/17/17 06/17/17 06/17/17 Range/Units 12:08 13:20 14:09 WBC (4.5-11.0) K/mm3 RBC (3.65-5.03) M/mm3 Hgb (11.8-15.2) gm/dl Hct (35.5-45.6) % RDW (13.2-15.2) % Plt Count (140-440) K/mm3 Lymph % (Auto) (13.4-35.0) % Clark % (Auto) (0.0-7.3) % Clark # (0.0-0.8) K/mm3 Seg Neutrophils % (40.0-70.0) % Seg Neutrophils # (1.8-7.7) K/mm3 Sodium (137-145) mmol/L Chloride (98-107) mmol/L Carbon Dioxide (22-30) mmol/L BUN (9-20) mg/dL Glucose (75-100) mg/dL POC Glucose 125 H 133 H 114 H (70-105) Total Protein (6.3-8.2) g/dL Albumin (3.9-5) g/dL Vancomycin Trough (5.0-20.0) ug/mL 06/17/17 06/17/17 06/17/17 Range/Units 15:13 16:09 16:53 WBC (4.5-11.0) K/mm3 RBC (3.65-5.03) M/mm3 Hgb (11.8-15.2) gm/dl Hct (35.5-45.6) % RDW (13.2-15.2) % Plt Count (140-440) K/mm3 Lymph % (Auto) (13.4-35.0) % Clark % (Auto) (0.0-7.3) % Clark # (0.0-0.8) K/mm3 Seg Neutrophils % (40.0-70.0) % Seg Neutrophils # (1.8-7.7) K/mm3 Sodium (137-145) mmol/L Chloride (98-107) mmol/L Carbon Dioxide (22-30) mmol/L BUN (9-20) mg/dL Glucose (75-100) mg/dL POC Glucose 137 H 120 H 123 H (70-105) Total Protein (6.3-8.2) g/dL Albumin (3.9-5) g/dL Vancomycin Trough (5.0-20.0) ug/mL 06/17/17 06/17/17 06/17/17 Range/Units 17:46 20:36 21:04 WBC (4.5-11.0) K/mm3 RBC (3.65-5.03) M/mm3 Hgb (11.8-15.2) gm/dl Hct (35.5-45.6) % RDW (13.2-15.2) % Plt Count (140-440) K/mm3 Lymph % (Auto) (13.4-35.0) % Clark % (Auto) (0.0-7.3) % Clark # (0.0-0.8) K/mm3 Seg Neutrophils % (40.0-70.0) % Seg Neutrophils # (1.8-7.7) K/mm3 Sodium (137-145) mmol/L Chloride (98-107) mmol/L Carbon Dioxide (22-30) mmol/L BUN (9-20) mg/dL Glucose (75-100) mg/dL POC Glucose 112 H 127 H 144 H (70-105) Total Protein (6.3-8.2) g/dL Albumin (3.9-5) g/dL Vancomycin Trough (5.0-20.0) ug/mL 06/17/17 06/17/17 06/17/17 Range/Units 21:47 22:52 23:49 WBC (4.5-11.0) K/mm3 RBC (3.65-5.03) M/mm3 Hgb (11.8-15.2) gm/dl Hct (35.5-45.6) % RDW (13.2-15.2) % Plt Count (140-440) K/mm3 Lymph % (Auto) (13.4-35.0) % Clark % (Auto) (0.0-7.3) % Clark # (0.0-0.8) K/mm3 Seg Neutrophils % (40.0-70.0) % Seg Neutrophils # (1.8-7.7) K/mm3 Sodium (137-145) mmol/L Chloride (98-107) mmol/L Carbon Dioxide (22-30) mmol/L BUN (9-20) mg/dL Glucose (75-100) mg/dL POC Glucose 124 H 175 H 162 H (70-105) Total Protein (6.3-8.2) g/dL Albumin (3.9-5) g/dL Vancomycin Trough (5.0-20.0) ug/mL 06/18/17 06/18/17 06/18/17 Range/Units 00:48 01:57 03:06 WBC (4.5-11.0) K/mm3 RBC (3.65-5.03) M/mm3 Hgb (11.8-15.2) gm/dl Hct (35.5-45.6) % RDW (13.2-15.2) % Plt Count (140-440) K/mm3 Lymph % (Auto) (13.4-35.0) % Clark % (Auto) (0.0-7.3) % Clark # (0.0-0.8) K/mm3 Seg Neutrophils % (40.0-70.0) % Seg Neutrophils # (1.8-7.7) K/mm3 Sodium (137-145) mmol/L Chloride (98-107) mmol/L Carbon Dioxide (22-30) mmol/L BUN (9-20) mg/dL Glucose (75-100) mg/dL POC Glucose 139 H 146 H 213 H (70-105) Total Protein (6.3-8.2) g/dL Albumin (3.9-5) g/dL Vancomycin Trough (5.0-20.0) ug/mL 06/18/17 06/18/17 06/18/17 Range/Units 04:03 04:57 05:00 WBC 17.1 H (4.5-11.0) K/mm3 RBC 3.52 L (3.65-5.03) M/mm3 Hgb 10.5 L (11.8-15.2) gm/dl Hct 32.3 L (35.5-45.6) % RDW 15.7 H (13.2-15.2) % Plt Count 120 L (140-440) K/mm3 Lymph % (Auto) 6.8 L (13.4-35.0) % Clark % (Auto) 9.6 H (0.0-7.3) % Clark # 1.6 H (0.0-0.8) K/mm3 Seg Neutrophils % 82.8 H (40.0-70.0) % Seg Neutrophils # 14.1 H (1.8-7.7) K/mm3 Sodium (137-145) mmol/L Chloride (98-107) mmol/L Carbon Dioxide (22-30) mmol/L BUN (9-20) mg/dL Glucose (75-100) mg/dL POC Glucose 159 H 195 H (70-105) Total Protein (6.3-8.2) g/dL Albumin (3.9-5) g/dL Vancomycin Trough (5.0-20.0) ug/mL 06/18/17 06/18/17 06/18/17 Range/Units 05:00 05:00 05:23 WBC (4.5-11.0) K/mm3 RBC (3.65-5.03) M/mm3 Hgb (11.8-15.2) gm/dl Hct (35.5-45.6) % RDW (13.2-15.2) % Plt Count (140-440) K/mm3 Lymph % (Auto) (13.4-35.0) % Clark % (Auto) (0.0-7.3) % Clark # (0.0-0.8) K/mm3 Seg Neutrophils % (40.0-70.0) % Seg Neutrophils # (1.8-7.7) K/mm3 Sodium 153 H (137-145) mmol/L Chloride 113.4 H (98-107) mmol/L Carbon Dioxide 17 L (22-30) mmol/L BUN 28 H (9-20) mg/dL Glucose 150 H (75-100) mg/dL POC Glucose 204 H (70-105) Total Protein 5.6 L (6.3-8.2) g/dL Albumin 2.2 L (3.9-5) g/dL Vancomycin Trough 29.4 H (5.0-20.0) ug/mL 06/18/17 06/18/17 06/18/17 Range/Units 06:23 08:06 09:02 WBC (4.5-11.0) K/mm3 RBC (3.65-5.03) M/mm3 Hgb (11.8-15.2) gm/dl Hct (35.5-45.6) % RDW (13.2-15.2) % Plt Count (140-440) K/mm3 Lymph % (Auto) (13.4-35.0) % Clark % (Auto) (0.0-7.3) % Clark # (0.0-0.8) K/mm3 Seg Neutrophils % (40.0-70.0) % Seg Neutrophils # (1.8-7.7) K/mm3 Sodium (137-145) mmol/L Chloride (98-107) mmol/L Carbon Dioxide (22-30) mmol/L BUN (9-20) mg/dL Glucose (75-100) mg/dL POC Glucose 159 H 120 H 119 H (70-105) Total Protein (6.3-8.2) g/dL Albumin (3.9-5) g/dL Vancomycin Trough (5.0-20.0) ug/mL
--- NOTE | 2017-06-18 15:16 | Progress Note ---
Assessment and Plan Imp: 1. Acute respiratory failure 2. Sepsis/shock 3. Infected hematoma 4. PAD 5. AMEYA 6. Hypernatremia 7. Metabolic/toxic encephalopathy Rec: 1. CT head 2. Increase free water and f/u sodium 3. Nutrition consult re: TFs; ST consult once mentation improves 4. ABX per ID 5. F/u vascular recs 6. Wound care 7. Keep in ICU Plan of care reviewed w/ daughters, they understand/agree CCt 31 minutes Subjective Date of service: 06/18/17 Principal diagnosis: Septic shock Interval history: No events. On nasal cannula. Confused, moans to questions. Moves all extremities but seems to have ? focal weakness RUE and he is R-handed. He cannot provide history. Active Medications Acetaminophen (Tylenol) 650 mg SD Q4H PRN PRN Reason: Pain, Mild (1-3) Last Admin: 06/16/17 07:34 Dose: 650 mg Acetaminophen (Tylenol) 650 mg PO Q4H PRN PRN Reason: For Pain/Fever/Headache Acetaminophen/Hydrocodone Bitart (Zahl 5/325) 2 each PO Q6H PRN PRN Reason: Pain, Moderate (4-6) Last Admin: 06/18/17 15:06 Dose: 2 each Lipase/Protease/Amylase (Pancreaze Dr 10,500 Unit) 1 each FEEDTUBE PRN PRN PRN Reason: For Clogged Feeding Tube Dextrose (D50w (25gm)) 50 ml IV PRN PRN PRN Reason: Hypoglycemia Diltiazem HCl (Cardizem) 30 mg PO Q8H [facility] Last Admin: 06/18/17 13:21 Dose: 30 mg Famotidine (Pepcid) 20 mg IV BID [facility] Last Admin: 06/18/17 09:37 Dose: 20 mg Hydromorphone HCl (Dilaudid) 0.5 mg IV Q4H PRN PRN Reason: Pain , Severe (7-10) Last Admin: 06/18/17 13:26 Dose: 0.5 mg Hydrophilic Ointment (Vaseline Lip Therapy) 1 applic TP Q2HR PRN PRN Reason: Dry Lips Norepinephrine (Levophed Drip 4 Mg/Ns 250 Ml) 4 mg in 250 mls @ 7.5 mls/hr IV TITR MAR[facility]Z; 2 MCG/MIN PRN Reason: Protocol Last Titration: 06/16/17 19:10 Dose: 0 mcg/min, 0 mls/hr Midazolam HCl 100 mg/ Sodium (Chloride) 100 mls @ 1 mls/hr IV TITR [facility]Z; 1 MG/HR PRN Reason: Protocol Last Titration: 06/16/17 05:22 Dose: 0 mg/hr, 0 mls/hr Insulin Human Regular 100 (units/ Sodium Chloride) 100 mls @ 1 mls/hr IV TITR [facility]Z; 1 UNITS/HR PRN Reason: Protocol Last Titration: 06/18/17 14:57 Dose: 2 units/hr, 2 mls/hr Meropenem 1,000 mg/ Sodium (Chloride) 100 mls @ 100 mls/hr IV Q8H [facility] PRN Reason: Protocol Last Admin: 06/18/17 09:36 Dose: 100 mls/hr Vancomycin HCl (Vancomycin/Ns 1 Gm/250 Ml) 1 gm in 250 mls @ 166.667 mls/hr IV Q12H [facility] Last Admin: 06/18/17 05:22 Dose: 166.667 mls/hr Multi-Ingred Cream/Lotion/Oil/Oint (Artificial Tears Ophth Oint) 1 applic OU Q4HR PRN PRN Reason: Dry Eye(s) Naloxone HCl (Narcan 0.4 Mg/1 Ml) 0.1 mg IV Q2MIN PRN PRN Reason: Res Rate </= 8 or 02 SAT < 92% Ondansetron HCl (Zofran) 4 mg IV Q6H PRN PRN Reason: Nausea And Vomiting Simple Syrup (Simple Syrup) 15 ml FEEDTUBE PRN PRN PRN Reason: Hypoglycemia Simple Syrup (Simple Syrup) 30 ml FEEDTUBE PRN PRN PRN Reason: Hypoglycemia Sodium Bicarbonate (Sodium Bicarbonate) 325 mg FEEDTUBE PRN PRN PRN Reason: For Clogged Feeding Tube Sodium Chloride (Nacl 0.9% 500 Ml) 1 ml IV DIRECT [facility] Objective Vital Signs - 12hr 06/18/17 06/18/17 06/18/17 03:15 03:25 03:30 Temperature 99.8 F H Pulse Rate 99 H 99 H Pulse Rate [ From Monitor] Respiratory 18 18 18 Rate Blood Pressure 130/69 126/62 O2 Sat by Pulse 99 100 Oximetry 06/18/17 06/18/17 06/18/17 03:45 03:55 04:00 Temperature Pulse Rate 100 H 100 H Pulse Rate [ 98 H From Monitor] Respiratory 14 19 15 Rate Blood Pressure 126/62 129/72 O2 Sat by Pulse 100 100 Oximetry 06/18/17 06/18/17 06/18/17 04:15 04:30 04:45 Temperature Pulse Rate 102 H 122 H 99 H Pulse Rate [ From Monitor] Respiratory 14 16 15 Rate Blood Pressure 129/72 115/67 129/72 O2 Sat by Pulse 100 100 100 Oximetry 06/18/17 06/18/17 06/18/17 05:01 05:15 05:31 Temperature Pulse Rate 97 H 115 H 99 H Pulse Rate [ From Monitor] Respiratory 17 16 17 Rate Blood Pressure 117/63 117/63 133/77 O2 Sat by Pulse 100 100 99 Oximetry 06/18/17 06/18/17 06/18/17 05:45 06:00 06:15 Temperature Pulse Rate 102 H 101 H 119 H Pulse Rate [ From Monitor] Respiratory 18 16 16 Rate Blood Pressure 133/77 114/70 121/66 O2 Sat by Pulse 100 100 98 Oximetry 06/18/17 06/18/17 06/18/17 07:41 07:45 07:59 Temperature Pulse Rate 116 H 104 H Pulse Rate [ From Monitor] Respiratory 18 13 Rate Blood Pressure 126/70 126/70 O2 Sat by Pulse 94 99 97 Oximetry 06/18/17 06/18/17 06/18/17 08:00 08:15 08:31 Temperature 98.6 F Pulse Rate 116 H 116 H 100 H Pulse Rate [ From Monitor] Respiratory 16 16 19 Rate Blood Pressure 137/81 137/81 137/81 O2 Sat by Pulse 99 97 100 Oximetry 06/18/17 06/18/17 06/18/17 08:45 09:01 09:15 Temperature Pulse Rate 115 H 120 H 116 H Pulse Rate [ From Monitor] Respiratory 15 16 19 Rate Blood Pressure 137/81 147/91 147/91 O2 Sat by Pulse 98 100 87 Oximetry 06/18/17 06/18/17 06/18/17 09:31 09:45 10:00 Temperature Pulse Rate 99 H 119 H 117 H Pulse Rate [ From Monitor] Respiratory 18 16 15 Rate Blood Pressure 147/91 147/91 145/82 O2 Sat by Pulse 100 100 100 Oximetry 0806/18/17 06/18/17 10:15 10:31 10:45 Temperature Pulse Rate 114 H 120 H 115 H Pulse Rate [ From Monitor] Respiratory 14 16 16 Rate Blood Pressure 145/82 145/82 145/82 O2 Sat by Pulse 100 100 100 Oximetry 06/18/17 06/18/17 06/18/17 11:00 11:15 11:31 Temperature Pulse Rate 121 H 119 H 116 H Pulse Rate [ From Monitor] Respiratory 15 18 15 Rate Blood Pressure 143/76 143/76 143/76 O2 Sat by Pulse 99 99 100 Oximetry 06/18/17 06/18/17 06/18/17 11:45 12:00 12:15 Temperature 98.3 F Pulse Rate 119 H 120 H 116 H Pulse Rate [ From Monitor] Respiratory 19 18 17 Rate Blood Pressure 143/76 150/94 150/94 O2 Sat by Pulse 98 100 100 Oximetry 06/18/17 06/18/17 06/18/17 13:21 13:26 15:06 Temperature Pulse Rate 103 H Pulse Rate [ From Monitor] Respiratory 20 21 Rate Blood Pressure 154/79 O2 Sat by Pulse Oximetry Constitutional: alert Eyes: non-icteric Neck: supple Effort: normal Ascultation: Bilateral: clear Cardiovascular: regular rate and rhythm (sinus tachycardia) Gastrointestinal: normoactive bowel sounds, soft, non-tender, non-distended Extremities: no cyanosis, edema (1+ bilateral LE edema), other (wound vacs in place on left) Neurologic: unable to assess Psychiatric: mood appropriate, affect normal CBC and BMP: 06/18/17 05:00 06/18/17 05:00 ABG, PT/INR, D-dimer: ABG POC ABG pH 7.424 (7.35-7.45) 06/16/17 11:28 POC ABG pCO2 30.3 (35-45) L 06/16/17 11:28 POC ABG pO2 118 (80-105) H 06/16/17 11:28 POC ABG HCO3 19.8 06/16/17 11:28 POC ABG Total CO2 21 06/16/17 11:28 POC ABG O2 Sat 99 06/16/17 11:28 PT/INR, D-dimer PT 15.9 Sec. (12.2-14.9) H 06/14/17 07:42 INR 1.28 (0.87-1.13) H 06/14/17 07:42 Abnormal lab findings: Abnormal Labs 06/13/17 06/13/17 06/13/17 00:18 05:20 10:28 WBC RBC Hgb 6.3 L 7.1 L Hct 19.6 L* 22.1 L RDW Plt Count Lymph % (Auto) [place] % (Auto) Lymph # [place] # Seg Neutrophils % Seg Neuts % (Manual) Lymphocytes % (Manual) Monocytes % (Manual) Seg Neutrophils # Seg Neutrophils # Man Lymphocytes # (Manual) Monocytes # (Manual) PT INR POC ABG pH POC ABG pCO2 POC ABG pO2 Sodium Potassium Chloride Carbon Dioxide BUN Creatinine Glucose POC Glucose 289 H Calcium AST Total Protein Albumin Vancomycin Trough Crossmatch 06/13/17 06/13/17 06/13/17 12:00 16:20 18:45 WBC RBC Hgb 9.9 L 8.8 L Hct 28.8 L D 26.5 L RDW Plt Count Lymph % (Auto) [place] % (Auto) Lymph # [place] # Seg Neutrophils % Seg Neuts % (Manual) Lymphocytes % (Manual) Monocytes % (Manual) Seg Neutrophils # Seg Neutrophils # Man Lymphocytes # (Manual) Monocytes # (Manual) PT INR POC ABG pH POC ABG pCO2 POC ABG pO2 Sodium Potassium Chloride Carbon Dioxide BUN Creatinine Glucose POC Glucose 292 H Calcium AST Total Protein Albumin Vancomycin Trough Crossmatch 06/13/17 06/13/17 06/13/17 18:49 21:13 Unknown WBC RBC Hgb 9.3 L Hct 27.8 L RDW Plt Count Lymph % (Auto) [place] % (Auto) Lymph # [place] # Seg Neutrophils % Seg Neuts % (Manual) Lymphocytes % (Manual) Monocytes % (Manual) Seg Neutrophils # Seg Neutrophils # Man Lymphocytes # (Manual) Monocytes # (Manual) PT INR POC ABG pH POC ABG pCO2 POC ABG pO2 Sodium Potassium Chloride Carbon Dioxide BUN Creatinine Glucose POC Glucose 252 H 234 H Calcium AST Total Protein Albumin Vancomycin Trough Crossmatch 06/14/17 06/14/17 06/14/17 00:24 01:53 04:44 WBC RBC Hgb 8.5 L 8.2 L Hct 25.7 L 25.1 L RDW Plt Count Lymph % (Auto) [place] % (Auto) Lymph # [place] # Seg Neutrophils % Seg Neuts % (Manual) Lymphocytes % (Manual) Monocytes % (Manual) Seg Neutrophils # Seg Neutrophils # Man Lymphocytes # (Manual) Monocytes # (Manual) PT INR POC ABG pH POC ABG pCO2 POC ABG pO2 Sodium Potassium Chloride Carbon Dioxide BUN Creatinine Glucose POC Glucose 213 H Calcium AST Total Protein Albumin Vancomycin Trough Crossmatch 06/14/17 06/14/17 06/14/17 05:49 07:42 07:42 WBC 12.2 H RBC 2.77 L Hgb 8.1 L Hct 25.0 L RDW 15.7 H Plt Count Lymph % (Auto) [place] % (Auto) Lymph # [place] # Seg Neutrophils % Seg Neuts % (Manual) Lymphocytes % (Manual) Monocytes % (Manual) Seg Neutrophils # Seg Neutrophils # Man Lymphocytes # (Manual) Monocytes # (Manual) PT 15.9 H INR 1.28 H POC ABG pH POC ABG pCO2 POC ABG pO2 Sodium Potassium Chloride Carbon Dioxide BUN Creatinine Glucose POC Glucose 218 H Calcium AST Total Protein Albumin Vancomycin Trough Crossmatch 06/14/17 06/14/17 06/14/17 07:42 14:31 16:45 WBC 14.0 H RBC 3.61 L Hgb 10.9 L Hct 32.8 L D RDW 15.8 H Plt Count Lymph % (Auto) [place] % (Auto) Lymph # [place] # Seg Neutrophils % Seg Neuts % (Manual) Lymphocytes % (Manual) Monocytes % (Manual) Seg Neutrophils # Seg Neutrophils # Man Lymphocytes # (Manual) Monocytes # (Manual) PT INR POC ABG pH POC ABG pCO2 POC ABG pO2 Sodium 146 H D Potassium Chloride 110.2 H Carbon Dioxide 15 L D BUN 25 H Creatinine Glucose 185 H POC Glucose 235 H Calcium 8.0 L AST Total Protein 5.1 L Albumin 2.0 L Vancomycin Trough Crossmatch 06/14/17 06/14/17 06/14/17 19:34 19:45 19:45 WBC 13.1 H RBC 3.33 L Hgb 9.9 L Hct 29.7 L RDW 15.7 H Plt Count 126 L Lymph % (Auto) [place] % (Auto) Lymph # [place] # Seg Neutrophils % Seg Neuts % (Manual) Lymphocytes % (Manual) Monocytes % (Manual) Seg Neutrophils # Seg Neutrophils # Man Lymphocytes # (Manual) Monocytes # (Manual) PT INR POC ABG pH POC ABG pCO2 POC ABG pO2 Sodium 148 H Potassium 5.7 H D Chloride 108.5 H Carbon Dioxide 12 L BUN 29 H Creatinine 1.7 H Glucose 324 H POC Glucose 296 H Calcium 7.9 L AST Total Protein Albumin Vancomycin Trough Crossmatch 06/14/17 06/14/17 06/14/17 20:05 21:53 23:06 WBC RBC Hgb Hct RDW Plt Count Lymph % (Auto) [place] % (Auto) Lymph # [place] # Seg Neutrophils % Seg Neuts % (Manual) Lymphocytes % (Manual) Monocytes % (Manual) Seg Neutrophils # Seg Neutrophils # Man Lymphocytes # (Manual) Monocytes # (Manual) PT INR POC ABG pH 7.241 L 7.298 L POC ABG pCO2 32.3 L 26.8 L POC ABG pO2 550 H 303 H Sodium Potassium Chloride Carbon Dioxide BUN Creatinine Glucose POC Glucose 259 H Calcium AST Total Protein Albumin Vancomycin Trough Crossmatch 06/15/17 06/15/17 06/15/17 02:08 06:00 06:15 WBC RBC Hgb 8.8 L Hct 26.4 L RDW Plt Count Lymph % (Auto) [place] % (Auto) Lymph # [place] # Seg Neutrophils % Seg Neuts % (Manual) Lymphocytes % (Manual) Monocytes % (Manual) Seg Neutrophils # Seg Neutrophils # Man Lymphocytes # (Manual) Monocytes # (Manual) PT INR POC ABG pH POC ABG pCO2 POC ABG pO2 Sodium Potassium Chloride Carbon Dioxide BUN Creatinine Glucose POC Glucose 334 H 233 H Calcium AST Total Protein Albumin Vancomycin Trough Crossmatch 06/15/17 06/15/17 06/15/17 06:15 06:54 09:32 WBC RBC Hgb Hct RDW Plt Count Lymph % (Auto) [place] % (Auto) Lymph # [place] # Seg Neutrophils % Seg Neuts % (Manual) Lymphocytes % (Manual) Monocytes % (Manual) Seg Neutrophils # Seg Neutrophils # Man Lymphocytes # (Manual) Monocytes # (Manual) PT INR POC ABG pH POC ABG pCO2 34.4 L POC ABG pO2 191 H Sodium 151 H Potassium Chloride 114.7 H Carbon Dioxide 18 L BUN 29 H Creatinine 1.8 H Glucose 259 H POC Glucose 229 H Calcium 7.7 L AST Total Protein Albumin Vancomycin Trough Crossmatch 06/15/17 06/15/17 06/15/17 11:35 12:32 13:36 WBC RBC Hgb Hct RDW Plt Count Lymph % (Auto) [place] % (Auto) Lymph # [place] # Seg Neutrophils % Seg Neuts % (Manual) Lymphocytes % (Manual) Monocytes % (Manual) Seg Neutrophils # Seg Neutrophils # Man Lymphocytes # (Manual) Monocytes # (Manual) PT INR POC ABG pH POC ABG pCO2 POC ABG pO2 Sodium Potassium Chloride Carbon Dioxide BUN Creatinine Glucose POC Glucose 202 H 189 H Calcium AST Total Protein Albumin Vancomycin Trough Crossmatch See Detail 06/15/17 06/15/17 06/15/17 14:30 15:32 16:28 WBC RBC Hgb Hct RDW Plt Count Lymph % (Auto) [place] % (Auto) Lymph # [place] # Seg Neutrophils % Seg Neuts % (Manual) Lymphocytes % (Manual) Monocytes % (Manual) Seg Neutrophils # Seg Neutrophils # Man Lymphocytes # (Manual) Monocytes # (Manual) PT INR POC ABG pH POC ABG pCO2 POC ABG pO2 Sodium Potassium Chloride Carbon Dioxide BUN Creatinine Glucose POC Glucose 142 H 106 H 119 H Calcium AST Total Protein Albumin Vancomycin Trough Crossmatch 06/15/17 06/15/17 06/15/17 17:36 19:30 20:51 WBC RBC Hgb Hct RDW Plt Count Lymph % (Auto) [place] % (Auto) Lymph # [place] # Seg Neutrophils % Seg Neuts % (Manual) Lymphocytes % (Manual) Monocytes % (Manual) Seg Neutrophils # Seg Neutrophils # Man Lymphocytes # (Manual) Monocytes # (Manual) PT INR POC ABG pH POC ABG pCO2 POC ABG pO2 Sodium Potassium Chloride Carbon Dioxide BUN Creatinine Glucose POC Glucose 121 H 109 H 112 H Calcium AST Total Protein Albumin Vancomycin Trough Crossmatch 06/15/17 06/15/17 06/16/17 21:42 23:27 01:11 WBC RBC Hgb Hct RDW Plt Count Lymph % (Auto) [place] % (Auto) Lymph # [place] # Seg Neutrophils % Seg Neuts % (Manual) Lymphocytes % (Manual) Monocytes % (Manual) Seg Neutrophils # Seg Neutrophils # Man Lymphocytes # (Manual) Monocytes # (Manual) PT INR POC ABG pH POC ABG pCO2 POC ABG pO2 Sodium Potassium Chloride Carbon Dioxide BUN Creatinine Glucose POC Glucose 122 H 142 H 162 H Calcium AST Total Protein Albumin Vancomycin Trough Crossmatch 06/16/17 06/16/17 06/16/17 02:03 02:57 04:05 WBC RBC Hgb Hct RDW Plt Count Lymph % (Auto) [place] % (Auto) Lymph # [place] # Seg Neutrophils % Seg Neuts % (Manual) Lymphocytes % (Manual) Monocytes % (Manual) Seg Neutrophils # Seg Neutrophils # Man Lymphocytes # (Manual) Monocytes # (Manual) PT INR POC ABG pH POC ABG pCO2 POC ABG pO2 Sodium Potassium Chloride Carbon Dioxide BUN Creatinine Glucose POC Glucose 117 H 106 H 108 H Calcium AST Total Protein Albumin Vancomycin Trough Crossmatch 06/16/17 06/16/17 06/16/17 05:09 05:23 06:03 WBC RBC Hgb Hct RDW Plt Count Lymph % (Auto) [place] % (Auto) Lymph # [place] # Seg Neutrophils % Seg Neuts % (Manual) Lymphocytes % (Manual) Monocytes % (Manual) Seg Neutrophils # Seg Neutrophils # Man Lymphocytes # (Manual) Monocytes # (Manual) PT INR POC ABG pH POC ABG pCO2 POC ABG pO2 Sodium Potassium Chloride Carbon Dioxide BUN Creatinine Glucose POC Glucose 114 H 125 H 138 H Calcium AST Total Protein Albumin Vancomycin Trough Crossmatch 06/16/17 06/16/17 06/16/17 06:25 06:25 07:07 WBC 14.7 H RBC 3.28 L Hgb 9.8 L Hct 29.1 L RDW 15.7 H Plt Count 117 L Lymph % (Auto) [place] % (Auto) Lymph # [place] # Seg Neutrophils % Seg Neuts % (Manual) 81.0 H Lymphocytes % (Manual) 3.0 L Monocytes % (Manual) 15.0 H Seg Neutrophils # Seg Neutrophils # Man 11.9 H Lymphocytes # (Manual) 0.4 L Monocytes # (Manual) 2.2 H PT INR POC ABG pH POC ABG pCO2 POC ABG pO2 Sodium 155 H Potassium Chloride 117.9 H Carbon Dioxide BUN 22 H Creatinine Glucose 107 H POC Glucose 127 H Calcium 7.9 L AST 57 H Total Protein 5.4 L Albumin 2.4 L Vancomycin Trough Crossmatch 06/16/17 06/16/17 06/16/17 08:00 09:07 10:11 WBC RBC Hgb Hct RDW Plt Count Lymph % (Auto) [place] % (Auto) Lymph # [place] # Seg Neutrophils % Seg Neuts % (Manual) Lymphocytes % (Manual) Monocytes % (Manual) Seg Neutrophils # Seg Neutrophils # Man Lymphocytes # (Manual) Monocytes # (Manual) PT INR POC ABG pH POC ABG pCO2 POC ABG pO2 Sodium Potassium Chloride Carbon Dioxide BUN Creatinine Glucose POC Glucose 113 H 106 H 107 H Calcium AST Total Protein Albumin Vancomycin Trough Crossmatch 06/16/17 06/16/17 06/16/17 10:59 11:28 12:11 WBC RBC Hgb Hct RDW Plt Count Lymph % (Auto) [place] % (Auto) Lymph # [place] # Seg Neutrophils % Seg Neuts % (Manual) Lymphocytes % (Manual) Monocytes % (Manual) Seg Neutrophils # Seg Neutrophils # Man Lymphocytes # (Manual) Monocytes # (Manual) PT INR POC ABG pH POC ABG pCO2 30.3 L POC ABG pO2 118 H Sodium Potassium Chloride Carbon Dioxide BUN Creatinine Glucose POC Glucose 110 H 109 H Calcium AST Total Protein Albumin Vancomycin Trough Crossmatch 06/16/17 06/16/17 06/16/17 13:13 15:40 18:18 WBC RBC Hgb Hct RDW Plt Count Lymph % (Auto) [place] % (Auto) Lymph # [place] # Seg Neutrophils % Seg Neuts % (Manual) Lymphocytes % (Manual) Monocytes % (Manual) Seg Neutrophils # Seg Neutrophils # Man Lymphocytes # (Manual) Monocytes # (Manual) PT INR POC ABG pH POC ABG pCO2 POC ABG pO2 Sodium Potassium Chloride Carbon Dioxide BUN Creatinine Glucose POC Glucose 111 H 143 H 109 H Calcium AST Total Protein Albumin Vancomycin Trough Crossmatch 06/16/17 06/16/17 06/16/17 19:08 20:05 21:00 WBC RBC Hgb Hct RDW Plt Count Lymph % (Auto) [place] % (Auto) Lymph # [place] # Seg Neutrophils % Seg Neuts % (Manual) Lymphocytes % (Manual) Monocytes % (Manual) Seg Neutrophils # Seg Neutrophils # Man Lymphocytes # (Manual) Monocytes # (Manual) PT INR POC ABG pH POC ABG pCO2 POC ABG pO2 Sodium Potassium Chloride Carbon Dioxide BUN Creatinine Glucose POC Glucose 107 H 106 H 119 H Calcium AST Total Protein Albumin Vancomycin Trough Crossmatch 06/16/17 06/17/17 06/17/17 22:01 01:04 02:02 WBC RBC Hgb Hct RDW Plt Count Lymph % (Auto) [place] % (Auto) Lymph # [place] # Seg Neutrophils % Seg Neuts % (Manual) Lymphocytes % (Manual) Monocytes % (Manual) Seg Neutrophils # Seg Neutrophils # Man Lymphocytes # (Manual) Monocytes # (Manual) PT INR POC ABG pH POC ABG pCO2 POC ABG pO2 Sodium Potassium Chloride Carbon Dioxide BUN Creatinine Glucose POC Glucose 142 H 106 H 108 H Calcium AST Total Protein Albumin Vancomycin Trough Crossmatch 06/17/17 06/17/17 06/17/17 02:44 03:42 04:40 WBC 16.4 H RBC 3.14 L Hgb 9.4 L Hct 28.5 L RDW 16.0 H Plt Count 107 L Lymph % (Auto) 5.0 L [place] % (Auto) 10.0 H Lymph # 0.8 L [place] # 1.6 H Seg Neutrophils % 84.4 H Seg Neuts % (Manual) Lymphocytes % (Manual) Monocytes % (Manual) Seg Neutrophils # 13.8 H Seg Neutrophils # Man Lymphocytes # (Manual) Monocytes # (Manual) PT INR POC ABG pH POC ABG pCO2 POC ABG pO2 Sodium Potassium Chloride Carbon Dioxide BUN Creatinine Glucose POC Glucose 109 H 113 H Calcium AST Total Protein Albumin Vancomycin Trough Crossmatch 06/17/17 06/17/17 06/17/17 04:40 04:47 05:33 WBC RBC Hgb Hct RDW Plt Count Lymph % (Auto) [place] % (Auto) Lymph # [place] # Seg Neutrophils % Seg Neuts % (Manual) Lymphocytes % (Manual) Monocytes % (Manual) Seg Neutrophils # Seg Neutrophils # Man Lymphocytes # (Manual) Monocytes # (Manual) PT INR POC ABG pH POC ABG pCO2 POC ABG pO2 Sodium 150 H Potassium Chloride 110.8 H Carbon Dioxide 18 L BUN 25 H Creatinine Glucose 107 H POC Glucose 132 H 124 H Calcium 8.1 L AST 47 H Total Protein 5.4 L Albumin 2.3 L Vancomycin Trough Crossmatch 06/17/17 06/17/17 06/17/17 07:19 08:02 08:53 WBC RBC Hgb Hct RDW Plt Count Lymph % (Auto) [place] % (Auto) Lymph # [place] # Seg Neutrophils % Seg Neuts % (Manual) Lymphocytes % (Manual) Monocytes % (Manual) Seg Neutrophils # Seg Neutrophils # Man Lymphocytes # (Manual) Monocytes # (Manual) PT INR POC ABG pH POC ABG pCO2 POC ABG pO2 Sodium Potassium Chloride Carbon Dioxide BUN Creatinine Glucose POC Glucose 115 H 119 H 130 H Calcium AST Total Protein Albumin Vancomycin Trough Crossmatch 06/17/17 06/17/17 06/17/17 10:00 11:05 12:08 WBC RBC Hgb Hct RDW Plt Count Lymph % (Auto) [place] % (Auto) Lymph # [place] # Seg Neutrophils % Seg Neuts % (Manual) Lymphocytes % (Manual) Monocytes % (Manual) Seg Neutrophils # Seg Neutrophils # Man Lymphocytes # (Manual) Monocytes # (Manual) PT INR POC ABG pH POC ABG pCO2 POC ABG pO2 Sodium Potassium Chloride Carbon Dioxide BUN Creatinine Glucose POC Glucose 122 H 131 H 125 H Calcium AST Total Protein Albumin Vancomycin Trough Crossmatch 06/17/17 06/17/17 06/17/17 13:20 14:09 15:13 WBC RBC Hgb Hct RDW Plt Count Lymph % (Auto) [place] % (Auto) Lymph # [place] # Seg Neutrophils % Seg Neuts % (Manual) Lymphocytes % (Manual) Monocytes % (Manual) Seg Neutrophils # Seg Neutrophils # Man Lymphocytes # (Manual) Monocytes # (Manual) PT INR POC ABG pH POC ABG pCO2 POC ABG pO2 Sodium Potassium Chloride Carbon Dioxide BUN Creatinine Glucose POC Glucose 133 H 114 H 137 H Calcium AST Total Protein Albumin Vancomycin Trough Crossmatch 06/17/17 06/17/17 06/17/17 16:09 16:53 17:46 WBC RBC Hgb Hct RDW Plt Count Lymph % (Auto) [place] % (Auto) Lymph # [place] # Seg Neutrophils % Seg Neuts % (Manual) Lymphocytes % (Manual) Monocytes % (Manual) Seg Neutrophils # Seg Neutrophils # Man Lymphocytes # (Manual) Monocytes # (Manual) PT INR POC ABG pH POC ABG pCO2 POC ABG pO2 Sodium Potassium Chloride Carbon Dioxide BUN Creatinine Glucose POC Glucose 120 H 123 H 112 H Calcium AST Total Protein Albumin Vancomycin Trough Crossmatch 06/17/17 06/17/17 06/17/17 20:36 21:04 21:47 WBC RBC Hgb Hct RDW Plt Count Lymph % (Auto) [place] % (Auto) Lymph # [place] # Seg Neutrophils % Seg Neuts % (Manual) Lymphocytes % (Manual) Monocytes % (Manual) Seg Neutrophils # Seg Neutrophils # Man Lymphocytes # (Manual) Monocytes # (Manual) PT INR POC ABG pH POC ABG pCO2 POC ABG pO2 Sodium Potassium Chloride Carbon Dioxide BUN Creatinine Glucose POC Glucose 127 H 144 H 124 H Calcium AST Total Protein Albumin Vancomycin Trough Crossmatch 06/17/17 06/17/17 06/18/17 22:52 23:49 00:48 WBC RBC Hgb Hct RDW Plt Count Lymph % (Auto) [place] % (Auto) Lymph # [place] # Seg Neutrophils % Seg Neuts % (Manual) Lymphocytes % (Manual) Monocytes % (Manual) Seg Neutrophils # Seg Neutrophils # Man Lymphocytes # (Manual) Monocytes # (Manual) PT INR POC ABG pH POC ABG pCO2 POC ABG pO2 Sodium Potassium Chloride Carbon Dioxide BUN Creatinine Glucose POC Glucose 175 H 162 H 139 H Calcium AST Total Protein Albumin Vancomycin Trough Crossmatch 06/18/17 06/18/17 06/18/17 01:57 03:06 04:03 WBC RBC Hgb Hct RDW Plt Count Lymph % (Auto) [place] % (Auto) Lymph # [place] # Seg Neutrophils % Seg Neuts % (Manual) Lymphocytes % (Manual) Monocytes % (Manual) Seg Neutrophils # Seg Neutrophils # Man Lymphocytes # (Manual) Monocytes # (Manual) PT INR POC ABG pH POC ABG pCO2 POC ABG pO2 Sodium Potassium Chloride Carbon Dioxide BUN Creatinine Glucose POC Glucose 146 H 213 H 159 H Calcium AST Total Protein Albumin Vancomycin Trough Crossmatch 06/18/17 06/18/17 06/18/17 04:57 05:00 05:00 WBC 17.1 H RBC 3.52 L Hgb 10.5 L Hct 32.3 L RDW 15.7 H Plt Count 120 L Lymph % (Auto) 6.8 L [place] % (Auto) 9.6 H Lymph # [place] # 1.6 H Seg Neutrophils % 82.8 H Seg Neuts % (Manual) Lymphocytes % (Manual) Monocytes % (Manual) Seg Neutrophils # 14.1 H Seg Neutrophils # Man Lymphocytes # (Manual) Monocytes # (Manual) PT INR POC ABG pH POC ABG pCO2 POC ABG pO2 Sodium 153 H Potassium Chloride 113.4 H Carbon Dioxide 17 L BUN 28 H Creatinine Glucose 150 H POC Glucose 195 H Calcium AST Total Protein 5.6 L Albumin 2.2 L Vancomycin Trough Crossmatch 06/18/17 06/18/17 06/18/17 05:00 05:23 06:23 WBC RBC Hgb Hct RDW Plt Count Lymph % (Auto) [place] % (Auto) Lymph # [place] # Seg Neutrophils % Seg Neuts % (Manual) Lymphocytes % (Manual) Monocytes % (Manual) Seg Neutrophils # Seg Neutrophils # Man Lymphocytes # (Manual) Monocytes # (Manual) PT INR POC ABG pH POC ABG pCO2 POC ABG pO2 Sodium Potassium Chloride Carbon Dioxide BUN Creatinine Glucose POC Glucose 204 H 159 H Calcium AST Total Protein Albumin Vancomycin Trough 29.4 H Crossmatch 06/18/17 06/18/17 08:06 09:02 WBC RBC Hgb Hct RDW Plt Count Lymph % (Auto) [place] % (Auto) Lymph # [place] # Seg Neutrophils % Seg Neuts % (Manual) Lymphocytes % (Manual) Monocytes % (Manual) Seg Neutrophils # Seg Neutrophils # Man Lymphocytes # (Manual) Monocytes # (Manual) PT INR POC ABG pH POC ABG pCO2 POC ABG pO2 Sodium Potassium Chloride Carbon Dioxide BUN Creatinine Glucose POC Glucose 120 H 119 H Calcium AST Total Protein Albumin Vancomycin Trough Crossmatch Chest x-ray: report reviewed, image reviewed (CM w/ mild R-sided infiltrates)
[2017-06-18] MEDS ORDERED: PANCREAZE DR 10,500 UNIT FEEDTUBE PRN (17:46)
[2017-06-18] MEDS ORDERED: SODIUM BICARBONATE FEEDTUBE PRN (17:46)
[2017-06-18] MEDS ORDERED: SIMPLE SYRUP FEEDTUBE PRN ×2 (17:46)
--- NOTE | 2017-06-18 19:21 | Cat Scan Report ---
FINAL REPORT EXAM: CT HEAD/BRAIN WO CON HISTORY: AMS TECHNIQUE: Noncontrast serial axial images from skull base to vertex PRIORS: None. FINDINGS: There is moderate atrophy. There is no mass effect or midline shift. There are no abnormal intra or extra-axial fluid collections. Lateral ventricles are within normal limits for size and configuration. Basilar cisterns are patent. No acute intracranial hemorrhage is identified. Areas of relative hypodensity are seen in the white matter of the cerebral hemispheres. Atherosclerotic changes are noted. Visualized paranasal sinuses and mastoid air cells are well aerated. No acute osseous abnormality is identified. Sequelae from scleral banding are seen on the left side. IMPRESSION: 1. No abnormal mass or acute intracranial hemorrhage is identified. 2. Areas of relative hypodensity are seen in the white matter of the cerebral hemispheres. This is a nonspecific finding. It may be related to chronic ischemic change from small vessel disease.
[2017-06-19] MEDS: MERREM 1,000 MG in NACL 0.9% 100 ML IV SCH ×3 (01:29→16:11)
[2017-06-19] MEDS: CARDIZEM PO SCH ×3 (04:46→18:24)
[2017-06-19] MEDS: VANCOMYCIN/NS 1 GM/250 ML 1 GM/250 ML BAG IV SCH ×3 (06:59→21:53)
[2017-06-19 07:30] LABS: Basophils % (Auto) 0.3 % (0.0-1.8); Eosinophils % (Auto) 1.2 % (0.0-4.3); Hematocrit 30.6 % (35.5-45.6); Hemoglobin 10.2 gm/dl (11.8-15.2); Mean Corpuscular HGB Conc 33 % (32-34); Mean Corpuscular Hemoglobin 30 pg (28-32); Mean Corpuscular Volume 89 fl (84-94); Platelet Count 139 K/mm3 (140-440); Red Blood Count 3.44 M/mm3 (3.65-5.03); Red Cell Distribution Width 15.4 % (13.2-15.2); White Blood Count 14.5 K/mm3 (4.5-11.0)
[2017-06-19 07:59] LABS: Alanine Aminotransferase 25 units/L (7-56); Albumin 2.3 g/dL (3.9-5); Albumin/Globulin Ratio 0.9 %; Alkaline Phosphatase 65 units/L (35-129); Anion Gap 17 mmol/L; BUN/Creatinine Ratio 21.81; Blood Urea Nitrogen 24 mg/dL (9-20); Calcium 7.8 mg/dL (8.4-10.2); Carbon Dioxide 26 mmol/L (22-30); Glucose 106 mg/dL (75-100); Potassium 3.8 mmol/L (3.6-5.0); Sodium 154 mmol/L (137-145); Total Protein 4.9 g/dL (6.3-8.2)
[2017-06-19] MEDS: PEPCID PO SCH ×2 (09:13→21:52)
--- NOTE | 2017-06-19 09:39 | Progress Note ---
Assessment and Plan Patient is a 76 year old male with hx of PAD, S/P multiple vascular surgeries including a TMA with a wound VAC that malfunctioned leading to blood loss with blood tranfusion. S/p re-do bypass graft, as the distal portion of the bypass of the left tibiala to be infected. Bypass tissue friable and would not hold repair sutures. Arm vein harvested and distal portion bypassed around to lower portion of the [employer]. Patient also has history of CAD CABG more than many years ago, ischemic cardiomyopathy hypertension diabetes hyperlipidemia with last known ejection fraction of 40-45% Presents to care home with hypotension, fever. With no improvement despite multiple fluid suspicion was placed on pressors in the ER, admitted to the hospital. -Septic shock w/possible hemorrhagic shock - improving -Infected hematoma of the left femoral; hematoma and infected left femoral tibial graft s/p revision of the same 06/14/17- leukocytosis improving -Acute blood loss anemia- resolved -Uncontrolled diabetes mellitus- improving on insulin drip -CAD s/p CABG -Tachycardia with PVC -Diabetic wound -Hypernatremia. -S/P Left TMA amputation -S/P wound vac to left foot surgical wound site -Severe PAD s/p multiple revasculariztionprocedures PLAN * S/p Redo of left Popliteal * Shock resolved with iv hydration * Free water for hypernatrmia * Continue supportive care, discussed with specialty transformer assembler, Vascular surgery, ED and patients family * S/P 5 units PRBC, Monitor h/h, Transfuse as needed * Continue IV abx, wound cultures, blood cultures yielded E.coli, ID following * Follow up recs from vascular surgery * Wound care consult to manage wound vac * Cardiology consult and monitor Electrolytes * Accucheck Q1hr. On insulin drip * discussed wtihpt's daughter at length 2 days ago. He is a DNR/DNI * DVT/GI prophylaxis Subjective Date of service: 06/19/17 Principal diagnosis: Septic shock Interval history: Awake and though weak Objective - Constitutional Vitals: Vital Signs - 12hr 06/18/17 06/18/17 06/18/17 22:00 23:00 23:43 Temperature Pulse Rate 113 H 117 H 142 H Pulse Rate [ From Monitor] Respiratory 18 15 Rate Respiratory Rate [Right Arm ] Blood Pressure 121/61 131/60 131/60 O2 Sat by Pulse 94 99 Oximetry 06/18/17 06/19/17 06/19/17 23:45 00:00 00:20 Temperature 98.1 F Pulse Rate 119 H Pulse Rate [ From Monitor] Respiratory 21 17 Rate Respiratory 16 Rate [Right Arm ] Blood Pressure 125/72 O2 Sat by Pulse 96 Oximetry 06/19/17 06/19/17 06/19/17 00:45 01:00 02:00 Temperature Pulse Rate 113 H 112 H Pulse Rate [ From Monitor] Respiratory 17 22 16 Rate Respiratory Rate [Right Arm ] Blood Pressure 118/71 124/75 O2 Sat by Pulse 98 99 Oximetry 06/19/17 06/19/17 06/19/17 03:00 04:00 04:13 Temperature 97.9 F Pulse Rate 98 H 103 H Pulse Rate [ 103 H From Monitor] Respiratory 14 16 Rate Respiratory Rate [Right Arm ] Blood Pressure 112/60 114/70 O2 Sat by Pulse 100 99 Oximetry 06/19/17 06/19/17 06/19/17 04:46 05:00 05:46 Temperature Pulse Rate 108 H 103 H Pulse Rate [ From Monitor] Respiratory 16 15 16 Rate Respiratory Rate [Right Arm ] Blood Pressure 114/70 114/71 O2 Sat by Pulse 99 Oximetry 06/19/17 06/19/17 06/19/17 06:00 07:00 08:00 Temperature Pulse Rate 105 H 109 H 102 H Pulse Rate [ From Monitor] Respiratory 15 17 15 Rate Respiratory Rate [Right Arm ] Blood Pressure 108/62 126/73 135/76 O2 Sat by Pulse 100 100 100 Oximetry 06/19/17 08:02 Temperature Pulse Rate Pulse Rate [ From Monitor] Respiratory Rate Respiratory Rate [Right Arm ] Blood Pressure O2 Sat by Pulse 100 Oximetry General appearance: Present: no acute distress - EENT Eyes: PERRL, EOM intact - Neck Neck: supple, normal ROM - Respiratory Respiratory effort: normal Respiratory: bilateral: CTA - Cardiovascular Rhythm: regular Heart Sounds: Present: S1 & S2. Absent: gallop, rub Extremities: pulses intact, No edema, normal color, Full ROM - Gastrointestinal General gastrointestinal: Present: soft, non-tender, non-distended, normal bowel sounds - Integumentary Integumentary: clear, warm, dry - Musculoskeletal Musculoskeletal: generalized weakness - Neurologic Neurologic: moves all extremities - Psychiatric Psychiatric: appropriate mood/affect - Labs CBC & Chem 7: 06/19/17 06:50 06/19/17 06:50 Labs: Abnormal lab results 06/17/17 06/17/17 06/17/17 Range/Units 10:00 11:05 13:20 WBC (4.5-11.0) K/mm3 RBC (3.65-5.03) M/mm3 Hgb (11.8-15.2) gm/dl Hct (35.5-45.6) % RDW (13.2-15.2) % Plt Count (140-440) K/mm3 Lymph % (Auto) (13.4-35.0) % [place] % (Auto) (0.0-7.3) % [place] # (0.0-0.8) K/mm3 Seg Neutrophils % (40.0-70.0) % Seg Neutrophils # (1.8-7.7) K/mm3 Sodium (137-145) mmol/L Chloride (98-107) mmol/L BUN (9-20) mg/dL Glucose (75-100) mg/dL POC Glucose 122 H 131 H 133 H (70-105) Calcium (8.4-10.2) mg/dL Total Protein (6.3-8.2) g/dL Albumin (3.9-5) g/dL Vancomycin Trough (5.0-20.0) ug/mL 06/17/17 06/17/17 06/17/17 Range/Units 14:09 15:13 16:09 WBC (4.5-11.0) K/mm3 RBC (3.65-5.03) M/mm3 Hgb (11.8-15.2) gm/dl Hct (35.5-45.6) % RDW (13.2-15.2) % Plt Count (140-440) K/mm3 Lymph % (Auto) (13.4-35.0) % [place] % (Auto) (0.0-7.3) % [place] # (0.0-0.8) K/mm3 Seg Neutrophils % (40.0-70.0) % Seg Neutrophils # (1.8-7.7) K/mm3 Sodium (137-145) mmol/L Chloride (98-107) mmol/L BUN (9-20) mg/dL Glucose (75-100) mg/dL POC Glucose 114 H 137 H 120 H (70-105) Calcium (8.4-10.2) mg/dL Total Protein (6.3-8.2) g/dL Albumin (3.9-5) g/dL Vancomycin Trough (5.0-20.0) ug/mL 06/17/17 06/17/17 06/17/17 Range/Units 16:53 20:36 21:04 WBC (4.5-11.0) K/mm3 RBC (3.65-5.03) M/mm3 Hgb (11.8-15.2) gm/dl Hct (35.5-45.6) % RDW (13.2-15.2) % Plt Count (140-440) K/mm3 Lymph % (Auto) (13.4-35.0) % [place] % (Auto) (0.0-7.3) % [place] # (0.0-0.8) K/mm3 Seg Neutrophils % (40.0-70.0) % Seg Neutrophils # (1.8-7.7) K/mm3 Sodium (137-145) mmol/L Chloride (98-107) mmol/L BUN (9-20) mg/dL Glucose (75-100) mg/dL POC Glucose 123 H 127 H 144 H (70-105) Calcium (8.4-10.2) mg/dL Total Protein (6.3-8.2) g/dL Albumin (3.9-5) g/dL Vancomycin Trough (5.0-20.0) ug/mL 06/17/17 06/17/17 06/18/17 Range/Units 21:47 22:52 00:48 WBC (4.5-11.0) K/mm3 RBC (3.65-5.03) M/mm3 Hgb (11.8-15.2) gm/dl Hct (35.5-45.6) % RDW (13.2-15.2) % Plt Count (140-440) K/mm3 Lymph % (Auto) (13.4-35.0) % [place] % (Auto) (0.0-7.3) % [place] # (0.0-0.8) K/mm3 Seg Neutrophils % (40.0-70.0) % Seg Neutrophils # (1.8-7.7) K/mm3 Sodium (137-145) mmol/L Chloride (98-107) mmol/L BUN (9-20) mg/dL Glucose (75-100) mg/dL POC Glucose 124 H 175 H 139 H (70-105) Calcium (8.4-10.2) mg/dL Total Protein (6.3-8.2) g/dL Albumin (3.9-5) g/dL Vancomycin Trough (5.0-20.0) ug/mL 06/18/17 06/18/17 06/18/17 Range/Units 01:57 03:06 04:03 WBC (4.5-11.0) K/mm3 RBC (3.65-5.03) M/mm3 Hgb (11.8-15.2) gm/dl Hct (35.5-45.6) % RDW (13.2-15.2) % Plt Count (140-440) K/mm3 Lymph % (Auto) (13.4-35.0) % [place] % (Auto) (0.0-7.3) % [place] # (0.0-0.8) K/mm3 Seg Neutrophils % (40.0-70.0) % Seg Neutrophils # (1.8-7.7) K/mm3 Sodium (137-145) mmol/L Chloride (98-107) mmol/L BUN (9-20) mg/dL Glucose (75-100) mg/dL POC Glucose 146 H 213 H 159 H (70-105) Calcium (8.4-10.2) mg/dL Total Protein (6.3-8.2) g/dL Albumin (3.9-5) g/dL Vancomycin Trough (5.0-20.0) ug/mL 06/18/17 06/18/17 06/18/17 Range/Units 04:57 06:23 08:06 WBC (4.5-11.0) K/mm3 RBC (3.65-5.03) M/mm3 Hgb (11.8-15.2) gm/dl Hct (35.5-45.6) % RDW (13.2-15.2) % Plt Count (140-440) K/mm3 Lymph % (Auto) (13.4-35.0) % [place] % (Auto) (0.0-7.3) % [place] # (0.0-0.8) K/mm3 Seg Neutrophils % (40.0-70.0) % Seg Neutrophils # (1.8-7.7) K/mm3 Sodium (137-145) mmol/L Chloride (98-107) mmol/L BUN (9-20) mg/dL Glucose (75-100) mg/dL POC Glucose 195 H 159 H 120 H (70-105) Calcium (8.4-10.2) mg/dL Total Protein (6.3-8.2) g/dL Albumin (3.9-5) g/dL Vancomycin Trough (5.0-20.0) ug/mL 06/18/17 06/18/17 06/18/17 Range/Units 09:02 11:01 11:57 WBC (4.5-11.0) K/mm3 RBC (3.65-5.03) M/mm3 Hgb (11.8-15.2) gm/dl Hct (35.5-45.6) % RDW (13.2-15.2) % Plt Count (140-440) K/mm3 Lymph % (Auto) (13.4-35.0) % [place] % (Auto) (0.0-7.3) % [place] # (0.0-0.8) K/mm3 Seg Neutrophils % (40.0-70.0) % Seg Neutrophils # (1.8-7.7) K/mm3 Sodium (137-145) mmol/L Chloride (98-107) mmol/L BUN (9-20) mg/dL Glucose (75-100) mg/dL POC Glucose 119 H 128 H 118 H (70-105) Calcium (8.4-10.2) mg/dL Total Protein (6.3-8.2) g/dL Albumin (3.9-5) g/dL Vancomycin Trough (5.0-20.0) ug/mL 06/18/17 06/18/17 06/18/17 Range/Units 13:04 13:58 14:50 WBC (4.5-11.0) K/mm3 RBC (3.65-5.03) M/mm3 Hgb (11.8-15.2) gm/dl Hct (35.5-45.6) % RDW (13.2-15.2) % Plt Count (140-440) K/mm3 Lymph % (Auto) (13.4-35.0) % [place] % (Auto) (0.0-7.3) % [place] # (0.0-0.8) K/mm3 Seg Neutrophils % (40.0-70.0) % Seg Neutrophils # (1.8-7.7) K/mm3 Sodium (137-145) mmol/L Chloride (98-107) mmol/L BUN (9-20) mg/dL Glucose (75-100) mg/dL POC Glucose 127 H 148 H 113 H (70-105) Calcium (8.4-10.2) mg/dL Total Protein (6.3-8.2) g/dL Albumin (3.9-5) g/dL Vancomycin Trough (5.0-20.0) ug/mL 06/18/17 06/18/17 06/18/17 Range/Units 16:16 18:00 18:01 WBC (4.5-11.0) K/mm3 RBC (3.65-5.03) M/mm3 Hgb (11.8-15.2) gm/dl Hct (35.5-45.6) % RDW (13.2-15.2) % Plt Count (140-440) K/mm3 Lymph % (Auto) (13.4-35.0) % [place] % (Auto) (0.0-7.3) % [place] # (0.0-0.8) K/mm3 Seg Neutrophils % (40.0-70.0) % Seg Neutrophils # (1.8-7.7) K/mm3 Sodium (137-145) mmol/L Chloride (98-107) mmol/L BUN (9-20) mg/dL Glucose (75-100) mg/dL POC Glucose 123 H 125 H (70-105) Calcium (8.4-10.2) mg/dL Total Protein (6.3-8.2) g/dL Albumin (3.9-5) g/dL Vancomycin Trough 21.7 H (5.0-20.0) ug/mL 06/18/17 06/18/17 06/18/17 Range/Units 18:59 20:11 21:21 WBC (4.5-11.0) K/mm3 RBC (3.65-5.03) M/mm3 Hgb (11.8-15.2) gm/dl Hct (35.5-45.6) % RDW (13.2-15.2) % Plt Count (140-440) K/mm3 Lymph % (Auto) (13.4-35.0) % [place] % (Auto) (0.0-7.3) % [place] # (0.0-0.8) K/mm3 Seg Neutrophils % (40.0-70.0) % Seg Neutrophils # (1.8-7.7) K/mm3 Sodium (137-145) mmol/L Chloride (98-107) mmol/L BUN (9-20) mg/dL Glucose (75-100) mg/dL POC Glucose 128 H 108 H 107 H (70-105) Calcium (8.4-10.2) mg/dL Total Protein (6.3-8.2) g/dL Albumin (3.9-5) g/dL Vancomycin Trough (5.0-20.0) ug/mL 06/18/17 06/18/17 06/19/17 Range/Units 22:22 23:04 00:43 WBC (4.5-11.0) K/mm3 RBC (3.65-5.03) M/mm3 Hgb (11.8-15.2) gm/dl Hct (35.5-45.6) % RDW (13.2-15.2) % Plt Count (140-440) K/mm3 Lymph % (Auto) (13.4-35.0) % [place] % (Auto) (0.0-7.3) % [place] # (0.0-0.8) K/mm3 Seg Neutrophils % (40.0-70.0) % Seg Neutrophils # (1.8-7.7) K/mm3 Sodium (137-145) mmol/L Chloride (98-107) mmol/L BUN (9-20) mg/dL Glucose (75-100) mg/dL POC Glucose 118 H 171 H 141 H (70-105) Calcium (8.4-10.2) mg/dL Total Protein (6.3-8.2) g/dL Albumin (3.9-5) g/dL Vancomycin Trough (5.0-20.0) ug/mL 06/19/17 06/19/17 06/19/17 Range/Units 01:29 02:06 03:01 WBC (4.5-11.0) K/mm3 RBC (3.65-5.03) M/mm3 Hgb (11.8-15.2) gm/dl Hct (35.5-45.6) % RDW (13.2-15.2) % Plt Count (140-440) K/mm3 Lymph % (Auto) (13.4-35.0) % [place] % (Auto) (0.0-7.3) % [place] # (0.0-0.8) K/mm3 Seg Neutrophils % (40.0-70.0) % Seg Neutrophils # (1.8-7.7) K/mm3 Sodium (137-145) mmol/L Chloride (98-107) mmol/L BUN (9-20) mg/dL Glucose (75-100) mg/dL POC Glucose 124 H 137 H 135 H (70-105) Calcium (8.4-10.2) mg/dL Total Protein (6.3-8.2) g/dL Albumin (3.9-5) g/dL Vancomycin Trough (5.0-20.0) ug/mL 06/19/17 06/19/17 06/19/17 Range/Units 04:37 06:50 06:50 WBC 14.5 H (4.5-11.0) K/mm3 RBC 3.44 L (3.65-5.03) M/mm3 Hgb 10.2 L (11.8-15.2) gm/dl Hct 30.6 L (35.5-45.6) % RDW 15.4 H (13.2-15.2) % Plt Count 139 L (140-440) K/mm3 Lymph % (Auto) 8.2 L (13.4-35.0) % [place] % (Auto) 10.5 H (0.0-7.3) % [place]kin # 1.5 H (0.0-0.8) K/mm3 Seg Neutrophils % 79.8 H (40.0-70.0) % Seg Neutrophils # 11.5 H (1.8-7.7) K/mm3 Sodium 154 H (137-145) mmol/L Chloride 115.0 H (98-107) mmol/L BUN 24 H (9-20) mg/dL Glucose 106 H (75-100) mg/dL POC Glucose 126 H (70-105) Calcium 7.8 L (8.4-10.2) mg/dL Total Protein 4.9 L (6.3-8.2) g/dL Albumin 2.3 L (3.9-5) g/dL Vancomycin Trough (5.0-20.0) ug/mL - Imaging and cardiology EKG: report reviewed
[2017-06-19] MEDS: D5W 1,000 ML IV SCH ×2 (10:18→23:48)
--- NOTE | 2017-06-19 11:00 | Vascular Lab Report ---
LOWER EXTREMITY ARTERIAL DUPLEX: REASON FOR EXAM: Peripheral arterial disease/status post left femoral-popliteal bypass. COMMENTS ON THE LEFT: Monophasic waveforms are seen proximally. No waveforms are seen distally. Proximal portion of the AV graft appears to have some flow however it occluded distally.. Thrombus is noted in the distal graft.. Findings are consistent with abnormal perfusion. Findings are inconsistent with the ability to heal distal wounds. IMPRESSION: LEFT:Occluded left femoral-popliteal bypass graft.
--- NOTE | 2017-06-19 11:23 | XRay Report ---
AP CHEST :06/19/17 CLINICAL: Followup respiratory failure. COMPARISON:06/18/17 FINDINGS: Cardiomegaly and redistribution of pulmonary blood flow to the upper lobes without significant change. Slightly improved aeration of the right lung. No pulmonary consolidation. The feeding tube is satisfactory. The right IJ catheter tip remains in the distal SVC. IMPRESSION: Slight improvement.
--- NOTE | 2017-06-19 12:00 | Progress Note ---
Assessment and Plan Imp: 1. Acute respiratory failure 2. Sepsis/shock 3. Infected hematoma/acute blood loss anemia 4. PAD 5. AMEYA 6. Hypernatremia 7. Metabolic/toxic encephalopathy Rec: 1. CT head neg for obvious acute process 2. Increased free water; agree w/ D5W 3. TFs per nutrition recs; ST evaluation of swallow 4. ABX per ID 5. F/u vascular recs 6. Wound care 7. PT/OT consults 8. On Cardizem for MAT per cards 9. Keep in ICU another 24 hours No family present today; d/w daughters 06/18/17 CCt 31 minutes Subjective Date of service: 06/19/17 Principal diagnosis: Septic shock Interval history: No events. On nasal cannula. Less confused. Oriented to person/date. No SOB, pain, other complaints currently. Remains tachycardic. Active Medications Acetaminophen (Tylenol) 650 mg IL Q4H PRN PRN Reason: Pain, Mild (1-3) Last Admin: 06/16/17 07:34 Dose: 650 mg Acetaminophen (Tylenol) 650 mg PO Q4H PRN PRN Reason: For Pain/Fever/Headache Last Admin: 06/19/17 04:46 Dose: 650 mg Acetaminophen/Hydrocodone Bitart ([place] 5/325) 2 each PO Q6H PRN PRN Reason: Pain, Moderate (4-6) Last Admin: 06/18/17 23:45 Dose: 2 each Lipase/Protease/Amylase (Pancreaze Dr 10,500 Unit) 1 each FEEDTUBE PRN PRN PRN Reason: For Clogged Feeding Tube Dextrose (D50w (25gm)) 50 ml IV PRN PRN PRN Reason: Hypoglycemia Diltiazem HCl (Cardizem) 30 mg PO Q8H MARQUEZ Last Admin: 06/19/17 04:46 Dose: 30 mg Famotidine (Pepcid) 20 mg PO BID MARQUEZ Last Admin: 06/19/17 09:13 Dose: 20 mg Hydromorphone HCl (Dilaudid) 0.5 mg IV Q4H PRN PRN Reason: Pain , Severe (7-10) Last Admin: 06/18/17 13:26 Dose: 0.5 mg Hydrophilic Ointment (Vaseline Lip Therapy) 1 applic TP Q2HR PRN PRN Reason: Dry Lips Insulin Human Regular 100 (units/ Sodium Chloride) 100 mls @ 1 mls/hr IV TITR MARQUEZ; 1 UNITS/HR PRN Reason: Protocol Last Titration: 06/19/17 10:17 Dose: 2 units/hr, 2 mls/hr Meropenem 1,000 mg/ Sodium (Chloride) 100 mls @ 100 mls/hr IV Q8H MARQUEZ PRN Reason: Protocol Last Admin: 06/19/17 09:13 Dose: 100 mls/hr Vancomycin HCl (Vancomycin/Ns 1 Gm/250 Ml) 1 gm in 250 mls @ 166.667 mls/hr IV BID MARQUEZ Last Admin: 06/19/17 10:18 Dose: 166.667 mls/hr Dextrose (D5w) 1,000 mls @ 75 mls/hr IV DIRECT MARQUEZ Last Admin: 06/19/17 10:18 Dose: 75 mls/hr Multi-Ingred Cream/Lotion/Oil/Oint (Artificial Tears Ophth Oint) 1 applic OU Q4HR PRN PRN Reason: Dry Eye(s) Naloxone HCl (Narcan 0.4 Mg/1 Ml) 0.1 mg IV Q2MIN PRN PRN Reason: Res Rate </= 8 or 02 SAT < 92% Ondansetron HCl (Zofran) 4 mg IV Q6H PRN PRN Reason: Nausea And Vomiting Simple Syrup (Simple Syrup) 15 ml FEEDTUBE PRN PRN PRN Reason: Hypoglycemia Simple Syrup (Simple Syrup) 30 ml FEEDTUBE PRN PRN PRN Reason: Hypoglycemia Sodium Bicarbonate (Sodium Bicarbonate) 325 mg FEEDTUBE PRN PRN PRN Reason: For Clogged Feeding Tube Objective Vital Signs - 12hr 06/19/17 06/19/17 06/19/17 00:00 00:20 00:45 Temperature 98.1 F Pulse Rate 119 H Pulse Rate [ From Monitor] Respiratory 17 17 Rate Blood Pressure 125/72 O2 Sat by Pulse 96 Oximetry 06/19/17 06/19/17 06/19/17 01:00 02:00 03:00 Temperature Pulse Rate 113 H 112 H 98 H Pulse Rate [ From Monitor] Respiratory 22 16 14 Rate Blood Pressure 118/71 124/75 112/60 O2 Sat by Pulse 98 99 100 Oximetry 06/19/17 06/19/17 06/19/17 04:00 04:13 04:46 Temperature 97.9 F Pulse Rate 103 H 108 H Pulse Rate [ 103 H From Monitor] Respiratory 16 16 Rate Blood Pressure 114/70 114/70 O2 Sat by Pulse 99 Oximetry 06/19/17 06/19/17 06/19/17 05:00 05:46 06:00 Temperature Pulse Rate 103 H 105 H Pulse Rate [ From Monitor] Respiratory 15 16 15 Rate Blood Pressure 114/71 108/62 O2 Sat by Pulse 99 100 Oximetry 06/19/17 06/19/17 06/19/17 07:00 08:00 08:02 Temperature 98.1 F Pulse Rate 109 H 102 H Pulse Rate [ From Monitor] Respiratory 17 15 Rate Blood Pressure 126/73 135/76 O2 Sat by Pulse 100 100 100 Oximetry 06/19/17 06/19/17 09:00 10:00 Temperature Pulse Rate 105 H 109 H Pulse Rate [ From Monitor] Respiratory 19 19 Rate Blood Pressure 126/79 129/81 O2 Sat by Pulse 98 100 Oximetry Constitutional: alert Eyes: non-icteric Neck: supple Effort: normal Ascultation: Bilateral: clear Percussion: Bilateral: not dull Cardiovascular: irregular rhythm (MAT) Gastrointestinal: normoactive bowel sounds, soft, non-tender, non-distended Extremities: no cyanosis, edema (1+ bilateral LE edema), other (wound vacs in place on left) Neurologic: normal mental status (mildly confused), non-focal exam (? weakness RUE) Psychiatric: mood appropriate, affect normal CBC and BMP: 06/19/17 06:50 06/19/17 06:50 ABG, PT/INR, D-dimer: ABG POC ABG pH 7.424 (7.35-7.45) 06/16/17 11:28 POC ABG pCO2 30.3 (35-45) L 06/16/17 11:28 POC ABG pO2 118 (80-105) H 06/16/17 11:28 POC ABG HCO3 19.8 06/16/17 11:28 POC ABG Total CO2 21 06/16/17 11:28 POC ABG O2 Sat 99 06/16/17 11:28 PT/INR, D-dimer PT 15.9 Sec. (12.2-14.9) H 06/14/17 07:42 INR 1.28 (0.87-1.13) H 06/14/17 07:42 Abnormal lab findings: Abnormal Labs 06/13/17 06/13/17 06/13/17 00:18 05:20 10:28 WBC RBC Hgb 6.3 L 7.1 L Hct 19.6 L* 22.1 L RDW Plt Count Lymph % (Auto) Cole % (Auto) Lymph # Cole # Seg Neutrophils % Seg Neuts % (Manual) Lymphocytes % (Manual) Monocytes % (Manual) Seg Neutrophils # Seg Neutrophils # Man Lymphocytes # (Manual) Monocytes # (Manual) PT INR POC ABG pH POC ABG pCO2 POC ABG pO2 Sodium Potassium Chloride Carbon Dioxide BUN Creatinine Glucose POC Glucose 289 H Calcium AST Total Protein Albumin Vancomycin Trough Crossmatch 06/13/17 06/13/17 06/13/17 12:00 16:20 18:45 WBC RBC Hgb 9.9 L 8.8 L Hct 28.8 L D 26.5 L RDW Plt Count Lymph % (Auto) Cole % (Auto) Lymph # Cole # Seg Neutrophils % Seg Neuts % (Manual) Lymphocytes % (Manual) Monocytes % (Manual) Seg Neutrophils # Seg Neutrophils # Man Lymphocytes # (Manual) Monocytes # (Manual) PT INR POC ABG pH POC ABG pCO2 POC ABG pO2 Sodium Potassium Chloride Carbon Dioxide BUN Creatinine Glucose POC Glucose 292 H Calcium AST Total Protein Albumin Vancomycin Trough Crossmatch 06/13/17 06/13/17 06/13/17 18:49 21:13 Unknown WBC RBC Hgb 9.3 L Hct 27.8 L RDW Plt Count Lymph % (Auto) Cole % (Auto) Lymph # Cole # Seg Neutrophils % Seg Neuts % (Manual) Lymphocytes % (Manual) Monocytes % (Manual) Seg Neutrophils # Seg Neutrophils # Man Lymphocytes # (Manual) Monocytes # (Manual) PT INR POC ABG pH POC ABG pCO2 POC ABG pO2 Sodium Potassium Chloride Carbon Dioxide BUN Creatinine Glucose POC Glucose 252 H 234 H Calcium AST Total Protein Albumin Vancomycin Trough Crossmatch 06/14/17 06/14/17 06/14/17 00:24 01:53 04:44 WBC RBC Hgb 8.5 L 8.2 L Hct 25.7 L 25.1 L RDW Plt Count Lymph % (Auto) Cole % (Auto) Lymph # Cole # Seg Neutrophils % Seg Neuts % (Manual) Lymphocytes % (Manual) Monocytes % (Manual) Seg Neutrophils # Seg Neutrophils # Man Lymphocytes # (Manual) Monocytes # (Manual) PT INR POC ABG pH POC ABG pCO2 POC ABG pO2 Sodium Potassium Chloride Carbon Dioxide BUN Creatinine Glucose POC Glucose 213 H Calcium AST Total Protein Albumin Vancomycin Trough Crossmatch 06/14/17 06/14/17 06/14/17 05:49 07:42 07:42 WBC 12.2 H RBC 2.77 L Hgb 8.1 L Hct 25.0 L RDW 15.7 H Plt Count Lymph % (Auto) Cole % (Auto) Lymph # Cole # Seg Neutrophils % Seg Neuts % (Manual) Lymphocytes % (Manual) Monocytes % (Manual) Seg Neutrophils # Seg Neutrophils # Man Lymphocytes # (Manual) Monocytes # (Manual) PT 15.9 H INR 1.28 H POC ABG pH POC ABG pCO2 POC ABG pO2 Sodium Potassium Chloride Carbon Dioxide BUN Creatinine Glucose POC Glucose 218 H Calcium AST Total Protein Albumin Vancomycin Trough Crossmatch 06/14/17 06/14/17 06/14/17 07:42 14:31 16:45 WBC 14.0 H RBC 3.61 L Hgb 10.9 L Hct 32.8 L D RDW 15.8 H Plt Count Lymph % (Auto) Cole % (Auto) Lymph # Cole # Seg Neutrophils % Seg Neuts % (Manual) Lymphocytes % (Manual) Monocytes % (Manual) Seg Neutrophils # Seg Neutrophils # Man Lymphocytes # (Manual) Monocytes # (Manual) PT INR POC ABG pH POC ABG pCO2 POC ABG pO2 Sodium 146 H D Potassium Chloride 110.2 H Carbon Dioxide 15 L D BUN 25 H Creatinine Glucose 185 H POC Glucose 235 H Calcium 8.0 L AST Total Protein 5.1 L Albumin 2.0 L Vancomycin Trough Crossmatch 06/14/17 06/14/17 06/14/17 19:34 19:45 19:45 WBC 13.1 H RBC 3.33 L Hgb 9.9 L Hct 29.7 L RDW 15.7 H Plt Count 126 L Lymph % (Auto) Cole % (Auto) Lymph # Cole # Seg Neutrophils % Seg Neuts % (Manual) Lymphocytes % (Manual) Monocytes % (Manual) Seg Neutrophils # Seg Neutrophils # Man Lymphocytes # (Manual) Monocytes # (Manual) PT INR POC ABG pH POC ABG pCO2 POC ABG pO2 Sodium 148 H Potassium 5.7 H D Chloride 108.5 H Carbon Dioxide 12 L BUN 29 H Creatinine 1.7 H Glucose 324 H POC Glucose 296 H Calcium 7.9 L AST Total Protein Albumin Vancomycin Trough Crossmatch 06/14/17 06/14/17 06/14/17 20:05 21:53 23:06 WBC RBC Hgb Hct RDW Plt Count Lymph % (Auto) Cole % (Auto) Lymph # Cole # Seg Neutrophils % Seg Neuts % (Manual) Lymphocytes % (Manual) Monocytes % (Manual) Seg Neutrophils # Seg Neutrophils # Man Lymphocytes # (Manual) Monocytes # (Manual) PT INR POC ABG pH 7.241 L 7.298 L POC ABG pCO2 32.3 L 26.8 L POC ABG pO2 550 H 303 H Sodium Potassium Chloride Carbon Dioxide BUN Creatinine Glucose POC Glucose 259 H Calcium AST Total Protein Albumin Vancomycin Trough Crossmatch 06/15/17 06/15/17 06/15/17 02:08 06:00 06:15 WBC RBC Hgb 8.8 L Hct 26.4 L RDW Plt Count Lymph % (Auto) Cole % (Auto) Lymph # Cole # Seg Neutrophils % Seg Neuts % (Manual) Lymphocytes % (Manual) Monocytes % (Manual) Seg Neutrophils # Seg Neutrophils # Man Lymphocytes # (Manual) Monocytes # (Manual) PT INR POC ABG pH POC ABG pCO2 POC ABG pO2 Sodium Potassium Chloride Carbon Dioxide BUN Creatinine Glucose POC Glucose 334 H 233 H Calcium AST Total Protein Albumin Vancomycin Trough Crossmatch 06/15/17 06/15/17 06/15/17 06:15 06:54 09:32 WBC RBC Hgb Hct RDW Plt Count Lymph % (Auto) Cole % (Auto) Lymph # Cole # Seg Neutrophils % Seg Neuts % (Manual) Lymphocytes % (Manual) Monocytes % (Manual) Seg Neutrophils # Seg Neutrophils # Man Lymphocytes # (Manual) Monocytes # (Manual) PT INR POC ABG pH POC ABG pCO2 34.4 L POC ABG pO2 191 H Sodium 151 H Potassium Chloride 114.7 H Carbon Dioxide 18 L BUN 29 H Creatinine 1.8 H Glucose 259 H POC Glucose 229 H Calcium 7.7 L AST Total Protein Albumin Vancomycin Trough Crossmatch 06/15/17 06/15/17 06/15/17 11:35 12:32 13:36 WBC RBC Hgb Hct RDW Plt Count Lymph % (Auto) Cole % (Auto) Lymph # Cole # Seg Neutrophils % Seg Neuts % (Manual) Lymphocytes % (Manual) Monocytes % (Manual) Seg Neutrophils # Seg Neutrophils # Man Lymphocytes # (Manual) Monocytes # (Manual) PT INR POC ABG pH POC ABG pCO2 POC ABG pO2 Sodium Potassium Chloride Carbon Dioxide BUN Creatinine Glucose POC Glucose 202 H 189 H Calcium AST Total Protein Albumin Vancomycin Trough Crossmatch See Detail 06/15/17 06/15/17 06/15/17 14:30 15:32 16:28 WBC RBC Hgb Hct RDW Plt Count Lymph % (Auto) Cole % (Auto) Lymph # Cole # Seg Neutrophils % Seg Neuts % (Manual) Lymphocytes % (Manual) Monocytes % (Manual) Seg Neutrophils # Seg Neutrophils # Man Lymphocytes # (Manual) Monocytes # (Manual) PT INR POC ABG pH POC ABG pCO2 POC ABG pO2 Sodium Potassium Chloride Carbon Dioxide BUN Creatinine Glucose POC Glucose 142 H 106 H 119 H Calcium AST Total Protein Albumin Vancomycin Trough Crossmatch 06/15/17 06/15/17 06/15/17 17:36 19:30 20:51 WBC RBC Hgb Hct RDW Plt Count Lymph % (Auto) Cole % (Auto) Lymph # Cole # Seg Neutrophils % Seg Neuts % (Manual) Lymphocytes % (Manual) Monocytes % (Manual) Seg Neutrophils # Seg Neutrophils # Man Lymphocytes # (Manual) Monocytes # (Manual) PT INR POC ABG pH POC ABG pCO2 POC ABG pO2 Sodium Potassium Chloride Carbon Dioxide BUN Creatinine Glucose POC Glucose 121 H 109 H 112 H Calcium AST Total Protein Albumin Vancomycin Trough Crossmatch 06/15/17 06/15/17 06/16/17 21:42 23:27 01:11 WBC RBC Hgb Hct RDW Plt Count Lymph % (Auto) Cole % (Auto) Lymph # Cole # Seg Neutrophils % Seg Neuts % (Manual) Lymphocytes % (Manual) Monocytes % (Manual) Seg Neutrophils # Seg Neutrophils # Man Lymphocytes # (Manual) Monocytes # (Manual) PT INR POC ABG pH POC ABG pCO2 POC ABG pO2 Sodium Potassium Chloride Carbon Dioxide BUN Creatinine Glucose POC Glucose 122 H 142 H 162 H Calcium AST Total Protein Albumin Vancomycin Trough Crossmatch 06/16/17 06/16/17 06/16/17 02:03 02:57 04:05 WBC RBC Hgb Hct RDW Plt Count Lymph % (Auto) Cole % (Auto) Lymph # Cole # Seg Neutrophils % Seg Neuts % (Manual) Lymphocytes % (Manual) Monocytes % (Manual) Seg Neutrophils # Seg Neutrophils # Man Lymphocytes # (Manual) Monocytes # (Manual) PT INR POC ABG pH POC ABG pCO2 POC ABG pO2 Sodium Potassium Chloride Carbon Dioxide BUN Creatinine Glucose POC Glucose 117 H 106 H 108 H Calcium AST Total Protein Albumin Vancomycin Trough Crossmatch 06/16/17 06/16/17 06/16/17 05:09 05:23 06:03 WBC RBC Hgb Hct RDW Plt Count Lymph % (Auto) Cole % (Auto) Lymph # Cole # Seg Neutrophils % Seg Neuts % (Manual) Lymphocytes % (Manual) Monocytes % (Manual) Seg Neutrophils # Seg Neutrophils # Man Lymphocytes # (Manual) Monocytes # (Manual) PT INR POC ABG pH POC ABG pCO2 POC ABG pO2 Sodium Potassium Chloride Carbon Dioxide BUN Creatinine Glucose POC Glucose 114 H 125 H 138 H Calcium AST Total Protein Albumin Vancomycin Trough Crossmatch 06/16/17 06/16/17 06/16/17 06:25 06:25 07:07 WBC 14.7 H RBC 3.28 L Hgb 9.8 L Hct 29.1 L RDW 15.7 H Plt Count 117 L Lymph % (Auto) Cole % (Auto) Lymph # Cole # Seg Neutrophils % Seg Neuts % (Manual) 81.0 H Lymphocytes % (Manual) 3.0 L Monocytes % (Manual) 15.0 H Seg Neutrophils # Seg Neutrophils # Man 11.9 H Lymphocytes # (Manual) 0.4 L Monocytes # (Manual) 2.2 H PT INR POC ABG pH POC ABG pCO2 POC ABG pO2 Sodium 155 H Potassium Chloride 117.9 H Carbon Dioxide BUN 22 H Creatinine Glucose 107 H POC Glucose 127 H Calcium 7.9 L AST 57 H Total Protein 5.4 L Albumin 2.4 L Vancomycin Trough Crossmatch 06/16/17 06/16/17 06/16/17 08:00 09:07 10:11 WBC RBC Hgb Hct RDW Plt Count Lymph % (Auto) Cole % (Auto) Lymph # Cole # Seg Neutrophils % Seg Neuts % (Manual) Lymphocytes % (Manual) Monocytes % (Manual) Seg Neutrophils # Seg Neutrophils # Man Lymphocytes # (Manual) Monocytes # (Manual) PT INR POC ABG pH POC ABG pCO2 POC ABG pO2 Sodium Potassium Chloride Carbon Dioxide BUN Creatinine Glucose POC Glucose 113 H 106 H 107 H Calcium AST Total Protein Albumin Vancomycin Trough Crossmatch 06/16/17 06/16/17 06/16/17 10:59 11:28 12:11 WBC RBC Hgb Hct RDW Plt Count Lymph % (Auto) Cole % (Auto) Lymph # Cole # Seg Neutrophils % Seg Neuts % (Manual) Lymphocytes % (Manual) Monocytes % (Manual) Seg Neutrophils # Seg Neutrophils # Man Lymphocytes # (Manual) Monocytes # (Manual) PT INR POC ABG pH POC ABG pCO2 30.3 L POC ABG pO2 118 H Sodium Potassium Chloride Carbon Dioxide BUN Creatinine Glucose POC Glucose 110 H 109 H Calcium AST Total Protein Albumin Vancomycin Trough Crossmatch 06/16/17 06/16/17 06/16/17 13:13 15:40 18:18 WBC RBC Hgb Hct RDW Plt Count Lymph % (Auto) Cole % (Auto) Lymph # Cole # Seg Neutrophils % Seg Neuts % (Manual) Lymphocytes % (Manual) Monocytes % (Manual) Seg Neutrophils # Seg Neutrophils # Man Lymphocytes # (Manual) Monocytes # (Manual) PT INR POC ABG pH POC ABG pCO2 POC ABG pO2 Sodium Potassium Chloride Carbon Dioxide BUN Creatinine Glucose POC Glucose 111 H 143 H 109 H Calcium AST Total Protein Albumin Vancomycin Trough Crossmatch 06/16/17 06/16/17 06/16/17 19:08 20:05 21:00 WBC RBC Hgb Hct RDW Plt Count Lymph % (Auto) Cole % (Auto) Lymph # Cole # Seg Neutrophils % Seg Neuts % (Manual) Lymphocytes % (Manual) Monocytes % (Manual) Seg Neutrophils # Seg Neutrophils # Man Lymphocytes # (Manual) Monocytes # (Manual) PT INR POC ABG pH POC ABG pCO2 POC ABG pO2 Sodium Potassium Chloride Carbon Dioxide BUN Creatinine Glucose POC Glucose 107 H 106 H 119 H Calcium AST Total Protein Albumin Vancomycin Trough Crossmatch 06/16/17 06/17/17 06/17/17 22:01 01:04 02:02 WBC RBC Hgb Hct RDW Plt Count Lymph % (Auto) Cole % (Auto) Lymph # Cole # Seg Neutrophils % Seg Neuts % (Manual) Lymphocytes % (Manual) Monocytes % (Manual) Seg Neutrophils # Seg Neutrophils # Man Lymphocytes # (Manual) Monocytes # (Manual) PT INR POC ABG pH POC ABG pCO2 POC ABG pO2 Sodium Potassium Chloride Carbon Dioxide BUN Creatinine Glucose POC Glucose 142 H 106 H 108 H Calcium AST Total Protein Albumin Vancomycin Trough Crossmatch 06/17/17 06/17/17 06/17/17 02:44 03:42 04:40 WBC 16.4 H RBC 3.14 L Hgb 9.4 L Hct 28.5 L RDW 16.0 H Plt Count 107 L Lymph % (Auto) 5.0 L Cole % (Auto) 10.0 H Lymph # 0.8 L Cole # 1.6 H Seg Neutrophils % 84.4 H Seg Neuts % (Manual) Lymphocytes % (Manual) Monocytes % (Manual) Seg Neutrophils # 13.8 H Seg Neutrophils # Man Lymphocytes # (Manual) Monocytes # (Manual) PT INR POC ABG pH POC ABG pCO2 POC ABG pO2 Sodium Potassium Chloride Carbon Dioxide BUN Creatinine Glucose POC Glucose 109 H 113 H Calcium AST Total Protein Albumin Vancomycin Trough Crossmatch 06/17/17 06/17/17 06/17/17 04:40 04:47 05:33 WBC RBC Hgb Hct RDW Plt Count Lymph % (Auto) Cole % (Auto) Lymph # Cole # Seg Neutrophils % Seg Neuts % (Manual) Lymphocytes % (Manual) Monocytes % (Manual) Seg Neutrophils # Seg Neutrophils # Man Lymphocytes # (Manual) Monocytes # (Manual) PT INR POC ABG pH POC ABG pCO2 POC ABG pO2 Sodium 150 H Potassium Chloride 110.8 H Carbon Dioxide 18 L BUN 25 H Creatinine Glucose 107 H POC Glucose 132 H 124 H Calcium 8.1 L AST 47 H Total Protein 5.4 L Albumin 2.3 L Vancomycin Trough Crossmatch 06/17/17 06/17/17 06/17/17 07:19 08:02 08:53 WBC RBC Hgb Hct RDW Plt Count Lymph % (Auto) Cole % (Auto) Lymph # Cole # Seg Neutrophils % Seg Neuts % (Manual) Lymphocytes % (Manual) Monocytes % (Manual) Seg Neutrophils # Seg Neutrophils # Man Lymphocytes # (Manual) Monocytes # (Manual) PT INR POC ABG pH POC ABG pCO2 POC ABG pO2 Sodium Potassium Chloride Carbon Dioxide BUN Creatinine Glucose POC Glucose 115 H 119 H 130 H Calcium AST Total Protein Albumin Vancomycin Trough Crossmatch 06/17/17 06/17/17 06/17/17 10:00 11:05 12:08 WBC RBC Hgb Hct RDW Plt Count Lymph % (Auto) Cole % (Auto) Lymph # Cole # Seg Neutrophils % Seg Neuts % (Manual) Lymphocytes % (Manual) Monocytes % (Manual) Seg Neutrophils # Seg Neutrophils # Man Lymphocytes # (Manual) Monocytes # (Manual) PT INR POC ABG pH POC ABG pCO2 POC ABG pO2 Sodium Potassium Chloride Carbon Dioxide BUN Creatinine Glucose POC Glucose 122 H 131 H 125 H Calcium AST Total Protein Albumin Vancomycin Trough Crossmatch 06/17/17 06/17/17 06/17/17 13:20 14:09 15:13 WBC RBC Hgb Hct RDW Plt Count Lymph % (Auto) Cole % (Auto) Lymph # Cole # Seg Neutrophils % Seg Neuts % (Manual) Lymphocytes % (Manual) Monocytes % (Manual) Seg Neutrophils # Seg Neutrophils # Man Lymphocytes # (Manual) Monocytes # (Manual) PT INR POC ABG pH POC ABG pCO2 POC ABG pO2 Sodium Potassium Chloride Carbon Dioxide BUN Creatinine Glucose POC Glucose 133 H 114 H 137 H Calcium AST Total Protein Albumin Vancomycin Trough Crossmatch 06/17/17 06/17/17 06/17/17 16:09 16:53 17:46 WBC RBC Hgb Hct RDW Plt Count Lymph % (Auto) Cole % (Auto) Lymph # Cole # Seg Neutrophils % Seg Neuts % (Manual) Lymphocytes % (Manual) Monocytes % (Manual) Seg Neutrophils # Seg Neutrophils # Man Lymphocytes # (Manual) Monocytes # (Manual) PT INR POC ABG pH POC ABG pCO2 POC ABG pO2 Sodium Potassium Chloride Carbon Dioxide BUN Creatinine Glucose POC Glucose 120 H 123 H 112 H Calcium AST Total Protein Albumin Vancomycin Trough Crossmatch 06/17/17 06/17/17 06/17/17 20:36 21:04 21:47 WBC RBC Hgb Hct RDW Plt Count Lymph % (Auto) Cole % (Auto) Lymph # Cole # Seg Neutrophils % Seg Neuts % (Manual) Lymphocytes % (Manual) Monocytes % (Manual) Seg Neutrophils # Seg Neutrophils # Man Lymphocytes # (Manual) Monocytes # (Manual) PT INR POC ABG pH POC ABG pCO2 POC ABG pO2 Sodium Potassium Chloride Carbon Dioxide BUN Creatinine Glucose POC Glucose 127 H 144 H 124 H Calcium AST Total Protein Albumin Vancomycin Trough Crossmatch 06/17/17 06/17/17 06/18/17 22:52 23:49 00:48 WBC RBC Hgb Hct RDW Plt Count Lymph % (Auto) Cole % (Auto) Lymph # Cole # Seg Neutrophils % Seg Neuts % (Manual) Lymphocytes % (Manual) Monocytes % (Manual) Seg Neutrophils # Seg Neutrophils # Man Lymphocytes # (Manual) Monocytes # (Manual) PT INR POC ABG pH POC ABG pCO2 POC ABG pO2 Sodium Potassium Chloride Carbon Dioxide BUN Creatinine Glucose POC Glucose 175 H 162 H 139 H Calcium AST Total Protein Albumin Vancomycin Trough Crossmatch 06/18/17 06/18/17 06/18/17 01:57 03:06 04:03 WBC RBC Hgb Hct RDW Plt Count Lymph % (Auto) Cole % (Auto) Lymph # Cole # Seg Neutrophils % Seg Neuts % (Manual) Lymphocytes % (Manual) Monocytes % (Manual) Seg Neutrophils # Seg Neutrophils # Man Lymphocytes # (Manual) Monocytes # (Manual) PT INR POC ABG pH POC ABG pCO2 POC ABG pO2 Sodium Potassium Chloride Carbon Dioxide BUN Creatinine Glucose POC Glucose 146 H 213 H 159 H Calcium AST Total Protein Albumin Vancomycin Trough Crossmatch 06/18/17 06/18/17 06/18/17 04:57 05:00 05:00 WBC 17.1 H RBC 3.52 L Hgb 10.5 L Hct 32.3 L RDW 15.7 H Plt Count 120 L Lymph % (Auto) 6.8 L Cole % (Auto) 9.6 H Lymph # Cole # 1.6 H Seg Neutrophils % 82.8 H Seg Neuts % (Manual) Lymphocytes % (Manual) Monocytes % (Manual) Seg Neutrophils # 14.1 H Seg Neutrophils # Man Lymphocytes # (Manual) Monocytes # (Manual) PT INR POC ABG pH POC ABG pCO2 POC ABG pO2 Sodium 153 H Potassium Chloride 113.4 H Carbon Dioxide 17 L BUN 28 H Creatinine Glucose 150 H POC Glucose 195 H Calcium AST Total Protein 5.6 L Albumin 2.2 L Vancomycin Trough Crossmatch 06/18/17 06/18/17 06/18/17 05:00 05:23 06:23 WBC RBC Hgb Hct RDW Plt Count Lymph % (Auto) Cole % (Auto) Lymph # Cole # Seg Neutrophils % Seg Neuts % (Manual) Lymphocytes % (Manual) Monocytes % (Manual) Seg Neutrophils # Seg Neutrophils # Man Lymphocytes # (Manual) Monocytes # (Manual) PT INR POC ABG pH POC ABG pCO2 POC ABG pO2 Sodium Potassium Chloride Carbon Dioxide BUN Creatinine Glucose POC Glucose 204 H 159 H Calcium AST Total Protein Albumin Vancomycin Trough 29.4 H Crossmatch 06/18/17 06/18/17 06/18/17 08:06 09:02 11:01 WBC RBC Hgb Hct RDW Plt Count Lymph % (Auto) Cole % (Auto) Lymph # Cole # Seg Neutrophils % Seg Neuts % (Manual) Lymphocytes % (Manual) Monocytes % (Manual) Seg Neutrophils # Seg Neutrophils # Man Lymphocytes # (Manual) Monocytes # (Manual) PT INR POC ABG pH POC ABG pCO2 POC ABG pO2 Sodium Potassium Chloride Carbon Dioxide BUN Creatinine Glucose POC Glucose 120 H 119 H 128 H Calcium AST Total Protein Albumin Vancomycin Trough Crossmatch 06/18/17 06/18/17 06/18/17 11:57 13:04 13:58 WBC RBC Hgb Hct RDW Plt Count Lymph % (Auto) Cole % (Auto) Lymph # Cole # Seg Neutrophils % Seg Neuts % (Manual) Lymphocytes % (Manual) Monocytes % (Manual) Seg Neutrophils # Seg Neutrophils # Man Lymphocytes # (Manual) Monocytes # (Manual) PT INR POC ABG pH POC ABG pCO2 POC ABG pO2 Sodium Potassium Chloride Carbon Dioxide BUN Creatinine Glucose POC Glucose 118 H 127 H 148 H Calcium AST Total Protein Albumin Vancomycin Trough Crossmatch 06/18/17 06/18/17 06/18/17 14:50 16:16 18:00 WBC RBC Hgb Hct RDW Plt Count Lymph % (Auto) Cole % (Auto) Lymph # Cole # Seg Neutrophils % Seg Neuts % (Manual) Lymphocytes % (Manual) Monocytes % (Manual) Seg Neutrophils # Seg Neutrophils # Man Lymphocytes # (Manual) Monocytes # (Manual) PT INR POC ABG pH POC ABG pCO2 POC ABG pO2 Sodium Potassium Chloride Carbon Dioxide BUN Creatinine Glucose POC Glucose 113 H 123 H Calcium AST Total Protein Albumin Vancomycin Trough 21.7 H Crossmatch 06/18/17 06/18/17 06/18/17 18:01 18:59 20:11 WBC RBC Hgb Hct RDW Plt Count Lymph % (Auto) Cole % (Auto) Lymph # Cole # Seg Neutrophils % Seg Neuts % (Manual) Lymphocytes % (Manual) Monocytes % (Manual) Seg Neutrophils # Seg Neutrophils # Man Lymphocytes # (Manual) Monocytes # (Manual) PT INR POC ABG pH POC ABG pCO2 POC ABG pO2 Sodium Potassium Chloride Carbon Dioxide BUN Creatinine Glucose POC Glucose 125 H 128 H 108 H Calcium AST Total Protein Albumin Vancomycin Trough Crossmatch 06/18/17 06/18/17 06/18/17 21:21 22:22 23:04 WBC RBC Hgb Hct RDW Plt Count Lymph % (Auto) Cole % (Auto) Lymph # Cole # Seg Neutrophils % Seg Neuts % (Manual) Lymphocytes % (Manual) Monocytes % (Manual) Seg Neutrophils # Seg Neutrophils # Man Lymphocytes # (Manual) Monocytes # (Manual) PT INR POC ABG pH POC ABG pCO2 POC ABG pO2 Sodium Potassium Chloride Carbon Dioxide BUN Creatinine Glucose POC Glucose 107 H 118 H 171 H Calcium AST Total Protein Albumin Vancomycin Trough Crossmatch 06/19/17 06/19/17 06/19/17 00:43 01:29 02:06 WBC RBC Hgb Hct RDW Plt Count Lymph % (Auto) Cole % (Auto) Lymph # Cole # Seg Neutrophils % Seg Neuts % (Manual) Lymphocytes % (Manual) Monocytes % (Manual) Seg Neutrophils # Seg Neutrophils # Man Lymphocytes # (Manual) Monocytes # (Manual) PT INR POC ABG pH POC ABG pCO2 POC ABG pO2 Sodium Potassium Chloride Carbon Dioxide BUN Creatinine Glucose POC Glucose 141 H 124 H 137 H Calcium AST Total Protein Albumin Vancomycin Trough Crossmatch 06/19/17 06/19/17 06/19/17 03:01 04:37 06:50 WBC 14.5 H RBC 3.44 L Hgb 10.2 L Hct 30.6 L RDW 15.4 H Plt Count 139 L Lymph % (Auto) 8.2 L Cole % (Auto) 10.5 H Lymph # Cole # 1.5 H Seg Neutrophils % 79.8 H Seg Neuts % (Manual) Lymphocytes % (Manual) Monocytes % (Manual) Seg Neutrophils # 11.5 H Seg Neutrophils # Man Lymphocytes # (Manual) Monocytes # (Manual) PT INR POC ABG pH POC ABG pCO2 POC ABG pO2 Sodium Potassium Chloride Carbon Dioxide BUN Creatinine Glucose POC Glucose 135 H 126 H Calcium AST Total Protein Albumin Vancomycin Trough Crossmatch 06/19/17 06:50 WBC RBC Hgb Hct RDW Plt Count Lymph % (Auto) Cole % (Auto) Lymph # Cole # Seg Neutrophils % Seg Neuts % (Manual) Lymphocytes % (Manual) Monocytes % (Manual) Seg Neutrophils # Seg Neutrophils # Man Lymphocytes # (Manual) Monocytes # (Manual) PT INR POC ABG pH POC ABG pCO2 POC ABG pO2 Sodium 154 H Potassium Chloride 115.0 H Carbon Dioxide BUN 24 H Creatinine Glucose 106 H POC Glucose Calcium 7.8 L AST Total Protein 4.9 L Albumin 2.3 L Vancomycin Trough Crossmatch Chest x-ray: report reviewed, image reviewed (improved R lung infiltrate; lungs essentially clear at this point)
--- NOTE | 2017-06-19 15:45 | Progress Note ---
Assessment and Plan Septic shock Infected hematoma of the left femoral; hematoma and infected left femoral tibial graft s/p revision of the same 06/14/17 Acute blood loss anemia requiring blood transfusion Hyponatremia PVD/PAD status post recent multiple vascular surgeries Hx of CAD s/p CABG fixed inferior and inferolateral wall defect consistent with prior UT but no reversible ischemia on MPI 05/2017 Ischemic cardiomyopathy ejection fraction 40-45% on echocardiogram 05/2017 Hypertension Diabetes Hyperlipidemia Multifocal atrial tachycardia on tele on diltiazem for suppression DNR status Conservative cardiac management. Subjective Date of service: 06/19/17 Principal diagnosis: Septic shock Interval history: Patient denies chest pain and shortness of breath. Objective Vital Signs Temp Pulse Pulse Resp Resp BP Pulse Ox 06/19/17 15:00 110 H 22 122/73 100 06/19/17 14:00 91 H 36 H 133/73 91 06/19/17 13:00 110 H 21 132/64 83 L 06/19/17 12:14 111 H 143/80 06/19/17 12:00 98.2 F 108 H 26 H 143/80 99 06/19/17 11:00 109 H 21 131/83 99 06/19/17 10:00 110 H 19 129/81 100 06/19/17 09:00 105 H 19 126/79 98 06/19/17 08:02 100 06/19/17 08:00 98.1 F 102 H 15 135/76 100 06/19/17 07:00 109 H 17 126/73 100 06/19/17 06:00 105 H 15 108/62 100 06/19/17 05:46 16 06/19/17 05:00 103 H 15 114/71 99 06/19/17 04:46 108 H 16 114/70 06/19/17 04:13 97.9 F 06/19/17 04:00 103 H 103 H 16 114/70 99 06/19/17 03:00 98 H 14 112/60 100 06/19/17 02:00 112 H 16 124/75 99 06/19/17 01:00 113 H 22 118/71 98 06/19/17 00:45 17 06/19/17 00:20 98.1 F 06/19/17 00:00 119 H 17 125/72 96 06/18/17 23:45 21 16 06/18/17 23:43 142 H 131/60 06/18/17 23:00 117 H 15 131/60 99 06/18/17 22:00 113 H 18 121/61 94 06/18/17 21:00 115 H 22 128/71 97 06/18/17 20:00 113 H 15 134/72 95 06/18/17 19:51 117 H 14 142/70 97 06/18/17 19:50 98.7 F 06/18/17 19:45 117 H 17 142/70 97 06/18/17 19:31 119 H 16 142/70 97 06/18/17 19:15 116 H 13 142/70 98 06/18/17 19:00 111 H 11 L 133/80 94 06/18/17 18:45 113 H 16 142/70 97 06/18/17 18:30 82 15 142/70 92 06/18/17 18:29 89 95 06/18/17 18:00 135/74 06/18/17 17:45 118 H 13 127/72 98 06/18/17 17:31 98 H 13 127/72 100 06/18/17 17:15 115 H 13 127/72 100 06/18/17 17:00 111 H 16 127/72 98 06/18/17 16:45 116 H 12 123/64 100 06/18/17 16:30 96 H 13 123/64 100 06/18/17 16:15 114 H 14 123/64 99 06/18/17 16:00 98.8 F 116 H 13 123/64 95 06/18/17 15:45 114 H 15 128/80 99 - Physical Examination General: No Apparent Distress Cardiac: Positive: Tachycardia - Labs and Meds Cardiac Enzymes 06/19/17 Range/Units 06:50 AST 26 (5-40) units/L CBC 06/19/17 Range/Units 06:50 WBC 14.5 H (4.5-11.0) K/mm3 RBC 3.44 L (3.65-5.03) M/mm3 Hgb 10.2 L (11.8-15.2) gm/dl Hct 30.6 L (35.5-45.6) % Plt Count 139 L (140-440) K/mm3 Lymph # 1.2 (1.2-5.4) K/mm3 [place] # 1.5 H (0.0-0.8) K/mm3 Eos # 0.2 (0.0-0.4) K/mm3 Baso # 0.0 (0.0-0.1) K/mm3 Comprehensive Metabolic Panel 06/19/17 Range/Units 06:50 Sodium 154 H (137-145) mmol/L Potassium 3.8 (3.6-5.0) mmol/L Chloride 115.0 H (98-107) mmol/L Carbon Dioxide 26 D (22-30) mmol/L BUN 24 H (9-20) mg/dL Creatinine 1.1 (0.8-1.5) mg/dL Glucose 106 H (75-100) mg/dL Calcium 7.8 L (8.4-10.2) mg/dL AST 26 (5-40) units/L ALT 25 (7-56) units/L Alkaline Phosphatase 65 (35-129) units/L Total Protein 4.9 L (6.3-8.2) g/dL Albumin 2.3 L (3.9-5) g/dL - Imaging and Cardiology EKG: report reviewed
--- NOTE | 2017-06-19 16:45 | Progress Note ---
Assessment and Plan Pt's leg is deteriorating, and does not appear salvagable. Will need conversion to AKA as his condition is optimized for surgery. He continues to be tachycardic. Continued confusion, but appears to be improving. When awoke, he speaks attempting to answer questions, and follow commands. - Patient Problems (1) Atherosclerosis of [place] arteries of the extremities with gangrene Current Visit: Yes Status: Acute Qualifiers: Peripheral atherosclerosis location: P Laterality: L (2) Acute blood loss anemia Current Visit: Yes Status: Acute (3) Hypotension Current Visit: Yes Status: Acute Qualifiers: Hypotension type: H Trimester: T (4) Postoperative hemorrhage Current Visit: Yes Status: Acute Qualifiers: Surgical complication system/body Area: S Procedure type: P Laterality: L (5) CAD (coronary artery disease) Current Visit: No Status: Chronic Qualifiers: Coronary Disease-Associated Artery/Lesion type: [place] artery [place] vs. transplanted heart: N Associated angina: without angina (6) Type 2 diabetes mellitus Onset Date: 07/13/16 Current Visit: No Status: Chronic Qualifiers: Diabetes mellitus complication status: with neurologic complications Diabetes mellitus complication detail: with autonomic neuropathy Diabetic retinopathy severity: D Proliferative retinopathy type: P Diabetes mellitus macular edema: D Diabetes mellitus intermediate accountant insulin use: with intermediate accountant use Laterality: L Chronic kidney disease stage: C Qualified Code(s): E11.43 - Type 2 diabetes mellitus with diabetic autonomic (poly)neuropathy; Z79.4 - senior care (current) use of insulin (7) Altered mental status Current Visit: Yes Status: Acute Qualifiers: Altered mental status type: A Coma depth: C Coma timing: C Subjective Date of service: 06/19/17 Principal diagnosis: Septic shock Interval history: Pt eval'd earlier this am. Pt was awake. Speaking more today. Continued confusion, but improving. Objective - Constitutional Vitals: Vital Signs - 12hr 06/19/17 06/19/17 06/19/17 04:46 05:00 05:46 Temperature Pulse Rate 108 H 103 H Respiratory 16 15 16 Rate Blood Pressure 114/70 114/71 O2 Sat by Pulse 99 Oximetry 06/19/17 06/19/17 06/19/17 06:00 07:00 08:00 Temperature 98.1 F Pulse Rate 105 H 109 H 102 H Respiratory 15 17 15 Rate Blood Pressure 108/62 126/73 135/76 O2 Sat by Pulse 100 100 100 Oximetry 06/19/17 06/19/17 06/19/17 08:02 09:00 10:00 Temperature Pulse Rate 105 H 110 H Respiratory 19 19 Rate Blood Pressure 126/79 129/81 O2 Sat by Pulse 100 98 100 Oximetry 06/19/17 06/19/17 06/19/17 11:00 12:00 12:14 Temperature 98.2 F Pulse Rate 109 H 108 H 111 H Respiratory 21 26 H Rate Blood Pressure 131/83 143/80 143/80 O2 Sat by Pulse 99 99 Oximetry 06/19/17 06/19/17 06/19/17 13:00 14:00 15:00 Temperature Pulse Rate 110 H 91 H 110 H Respiratory 21 36 H 22 Rate Blood Pressure 132/64 133/73 122/73 O2 Sat by Pulse 83 L 91 100 Oximetry 06/19/17 16:00 Temperature 98.9 F Pulse Rate 108 H Respiratory 20 Rate Blood Pressure 139/70 O2 Sat by Pulse 100 Oximetry General appearance: Present: no acute distress - EENT Eyes: PERRL ENT: hearing intact - Neck Neck: supple - Respiratory Respiratory effort: normal Extremities: abnormal (pt's leg bandaged. Warm to mid to distal lower leg. ) - Neurologic Neurologic: other (unable to move his Left foot) - Psychiatric Psychiatric: no appropriate mood/affect, no intact judgment & insight - Labs CBC & Chem 7: 06/19/17 06:50 06/19/17 06:50 Labs: Abnormal lab results 06/18/17 06/18/17 06/18/17 Range/Units 11:01 11:57 13:04 WBC (4.5-11.0) K/mm3 RBC (3.65-5.03) M/mm3 Hgb (11.8-15.2) gm/dl Hct (35.5-45.6) % RDW (13.2-15.2) % Plt Count (140-440) K/mm3 Lymph % (Auto) (13.4-35.0) % Brown % (Auto) (0.0-7.3) % Brown # (0.0-0.8) K/mm3 Seg Neutrophils % (40.0-70.0) % Seg Neutrophils # (1.8-7.7) K/mm3 Sodium (137-145) mmol/L Chloride (98-107) mmol/L BUN (9-20) mg/dL Glucose (75-100) mg/dL POC Glucose 128 H 118 H 127 H (70-105) Calcium (8.4-10.2) mg/dL Total Protein (6.3-8.2) g/dL Albumin (3.9-5) g/dL Vancomycin Trough (5.0-20.0) ug/mL 06/18/17 06/18/17 06/18/17 Range/Units 13:58 14:50 16:16 WBC (4.5-11.0) K/mm3 RBC (3.65-5.03) M/mm3 Hgb (11.8-15.2) gm/dl Hct (35.5-45.6) % RDW (13.2-15.2) % Plt Count (140-440) K/mm3 Lymph % (Auto) (13.4-35.0) % Brown % (Auto) (0.0-7.3) % Brown # (0.0-0.8) K/mm3 Seg Neutrophils % (40.0-70.0) % Seg Neutrophils # (1.8-7.7) K/mm3 Sodium (137-145) mmol/L Chloride (98-107) mmol/L BUN (9-20) mg/dL Glucose (75-100) mg/dL POC Glucose 148 H 113 H 123 H (70-105) Calcium (8.4-10.2) mg/dL Total Protein (6.3-8.2) g/dL Albumin (3.9-5) g/dL Vancomycin Trough (5.0-20.0) ug/mL 06/18/17 06/18/17 06/18/17 Range/Units 18:00 18:01 18:59 WBC (4.5-11.0) K/mm3 RBC (3.65-5.03) M/mm3 Hgb (11.8-15.2) gm/dl Hct (35.5-45.6) % RDW (13.2-15.2) % Plt Count (140-440) K/mm3 Lymph % (Auto) (13.4-35.0) % [place] % (Auto) (0.0-7.3) % Brown # (0.0-0.8) K/mm3 Seg Neutrophils % (40.0-70.0) % Seg Neutrophils # (1.8-7.7) K/mm3 Sodium (137-145) mmol/L Chloride (98-107) mmol/L BUN (9-20) mg/dL Glucose (75-100) mg/dL POC Glucose 125 H 128 H (70-105) Calcium (8.4-10.2) mg/dL Total Protein (6.3-8.2) g/dL Albumin (3.9-5) g/dL Vancomycin Trough 21.7 H (5.0-20.0) ug/mL 06/18/17 06/18/17 06/18/17 Range/Units 20:11 21:21 22:22 WBC (4.5-11.0) K/mm3 RBC (3.65-5.03) M/mm3 Hgb (11.8-15.2) gm/dl Hct (35.5-45.6) % RDW (13.2-15.2) % Plt Count (140-440) K/mm3 Lymph % (Auto) (13.4-35.0) % Brown % (Auto) (0.0-7.3) % Brown # (0.0-0.8) K/mm3 Seg Neutrophils % (40.0-70.0) % Seg Neutrophils # (1.8-7.7) K/mm3 Sodium (137-145) mmol/L Chloride (98-107) mmol/L BUN (9-20) mg/dL Glucose (75-100) mg/dL POC Glucose 108 H 107 H 118 H (70-105) Calcium (8.4-10.2) mg/dL Total Protein (6.3-8.2) g/dL Albumin (3.9-5) g/dL Vancomycin Trough (5.0-20.0) ug/mL 06/18/17 06/19/17 06/19/17 Range/Units 23:04 00:43 01:29 WBC (4.5-11.0) K/mm3 RBC (3.65-5.03) M/mm3 Hgb (11.8-15.2) gm/dl Hct (35.5-45.6) % RDW (13.2-15.2) % Plt Count (140-440) K/mm3 Lymph % (Auto) (13.4-35.0) % Brown % (Auto) (0.0-7.3) % Brown # (0.0-0.8) K/mm3 Seg Neutrophils % (40.0-70.0) % Seg Neutrophils # (1.8-7.7) K/mm3 Sodium (137-145) mmol/L Chloride (98-107) mmol/L BUN (9-20) mg/dL Glucose (75-100) mg/dL POC Glucose 171 H 141 H 124 H (70-105) Calcium (8.4-10.2) mg/dL Total Protein (6.3-8.2) g/dL Albumin (3.9-5) g/dL Vancomycin Trough (5.0-20.0) ug/mL 06/19/17 06/19/17 06/19/17 Range/Units 02:06 03:01 04:37 WBC (4.5-11.0) K/mm3 RBC (3.65-5.03) M/mm3 Hgb (11.8-15.2) gm/dl Hct (35.5-45.6) % RDW (13.2-15.2) % Plt Count (140-440) K/mm3 Lymph % (Auto) (13.4-35.0) % [place] % (Auto) (0.0-7.3) % [place] # (0.0-0.8) K/mm3 Seg Neutrophils % (40.0-70.0) % Seg Neutrophils # (1.8-7.7) K/mm3 Sodium (137-145) mmol/L Chloride (98-107) mmol/L BUN (9-20) mg/dL Glucose (75-100) mg/dL POC Glucose 137 H 135 H 126 H (70-105) Calcium (8.4-10.2) mg/dL Total Protein (6.3-8.2) g/dL Albumin (3.9-5) g/dL Vancomycin Trough (5.0-20.0) ug/mL 06/19/17 06/19/17 Range/Units 06:50 06:50 WBC 14.5 H (4.5-11.0) K/mm3 RBC 3.44 L (3.65-5.03) M/mm3 Hgb 10.2 L (11.8-15.2) gm/dl Hct 30.6 L (35.5-45.6) % RDW 15.4 H (13.2-15.2) % Plt Count 139 L (140-440) K/mm3 Lymph % (Auto) 8.2 L (13.4-35.0) % Brown % (Auto) 10.5 H (0.0-7.3) % [place] # 1.5 H (0.0-0.8) K/mm3 Seg Neutrophils % 79.8 H (40.0-70.0) % Seg Neutrophils # 11.5 H (1.8-7.7) K/mm3 Sodium 154 H (137-145) mmol/L Chloride 115.0 H (98-107) mmol/L BUN 24 H (9-20) mg/dL Glucose 106 H (75-100) mg/dL POC Glucose (70-105) Calcium 7.8 L (8.4-10.2) mg/dL Total Protein 4.9 L (6.3-8.2) g/dL Albumin 2.3 L (3.9-5) g/dL Vancomycin Trough (5.0-20.0) ug/mL
[2017-06-19] MEDS: NovoLIN R 100 UNITS in NACL 0.9% 99 ML IV SCH (17:21)
--- NOTE | 2017-06-19 17:53 | Progress Note ---
Assessment and Plan - Patient Problems (1) Sepsis Current Visit: Yes Status: Acute Qualifiers: Sepsis type: sepsis due to unspecified organism Qualified Code(s): A41.9 - Sepsis, unspecified organism Plan to address problem: 1. Polymicrobial growth from wounds with ESBL activity. 2. Continue Meropenem (or Ertapenem as outpatient) to complete 14+ days. Duration TBD by improvement of wounds. 3. Contact isolation. (2) PAD (peripheral artery disease) Onset Date: 08/22/16 Current Visit: No Status: Chronic Subjective Date of service: 06/19/17 Principal diagnosis: Septic shock Interval history: Remains in ICU. Continues to slowly improve. Objective - Constitutional Vitals: Vital Signs Temp Pulse Resp BP Pulse Ox 98.9 F 108 H 22 118/70 100 06/19/17 16:00 06/19/17 17:00 06/19/17 17:00 06/19/17 17:00 06/19/17 17:00 Temperature -Last 24 Hours Temperature 98.9 F Temperature 98.2 F Temperature 98.1 F Temperature 97.9 F Temperature 98.1 F Temperature 98.7 F General appearance: Present: no acute distress, other (awake) - EENT ENT: other (Dobhoff in place) - Neck Neck: supple - Respiratory Respiratory effort: normal Respiratory: bilateral: CTA - Cardiovascular Rhythm: irregularly irregular Extremity abnormal: edema (wound vac removed from left foot, leg wrapped; wound vac remains at left groin) - Gastrointestinal General gastrointestinal: Present: soft, non-distended, normal bowel sounds - Integumentary Integumentary: clear (stapled incision at right arm), no rash - Psychiatric Psychiatric: appropriate mood/affect - Labs CBC & Chem 7: 06/19/17 06:50 06/19/17 06:50 Labs: Abnormal lab results 06/18/17 06/18/17 06/18/17 Range/Units 11:01 11:57 13:04 WBC (4.5-11.0) K/mm3 RBC (3.65-5.03) M/mm3 Hgb (11.8-15.2) gm/dl Hct (35.5-45.6) % RDW (13.2-15.2) % Plt Count (140-440) K/mm3 Lymph % (Auto) (13.4-35.0) % [place] % (Auto) (0.0-7.3) % [place] # (0.0-0.8) K/mm3 Seg Neutrophils % (40.0-70.0) % Seg Neutrophils # (1.8-7.7) K/mm3 Sodium (137-145) mmol/L Chloride (98-107) mmol/L BUN (9-20) mg/dL Glucose (75-100) mg/dL POC Glucose 128 H 118 H 127 H (70-105) Calcium (8.4-10.2) mg/dL Total Protein (6.3-8.2) g/dL Albumin (3.9-5) g/dL Vancomycin Trough (5.0-20.0) ug/mL 06/18/17 06/18/17 06/18/17 Range/Units 13:58 14:50 16:16 WBC (4.5-11.0) K/mm3 RBC (3.65-5.03) M/mm3 Hgb (11.8-15.2) gm/dl Hct (35.5-45.6) % RDW (13.2-15.2) % Plt Count (140-440) K/mm3 Lymph % (Auto) (13.4-35.0) % [place] % (Auto) (0.0-7.3) % [place] # (0.0-0.8) K/mm3 Seg Neutrophils % (40.0-70.0) % Seg Neutrophils # (1.8-7.7) K/mm3 Sodium (137-145) mmol/L Chloride (98-107) mmol/L BUN (9-20) mg/dL Glucose (75-100) mg/dL POC Glucose 148 H 113 H 123 H (70-105) Calcium (8.4-10.2) mg/dL Total Protein (6.3-8.2) g/dL Albumin (3.9-5) g/dL Vancomycin Trough (5.0-20.0) ug/mL 06/18/17 06/18/17 06/18/17 Range/Units 18:00 18:01 18:59 WBC (4.5-11.0) K/mm3 RBC (3.65-5.03) M/mm3 Hgb (11.8-15.2) gm/dl Hct (35.5-45.6) % RDW (13.2-15.2) % Plt Count (140-440) K/mm3 Lymph % (Auto) (13.4-35.0) % [place] % (Auto) (0.0-7.3) % [place] # (0.0-0.8) K/mm3 Seg Neutrophils % (40.0-70.0) % Seg Neutrophils # (1.8-7.7) K/mm3 Sodium (137-145) mmol/L Chloride (98-107) mmol/L BUN (9-20) mg/dL Glucose (75-100) mg/dL POC Glucose 125 H 128 H (70-105) Calcium (8.4-10.2) mg/dL Total Protein (6.3-8.2) g/dL Albumin (3.9-5) g/dL Vancomycin Trough 21.7 H (5.0-20.0) ug/mL 06/18/17 06/18/17 06/18/17 Range/Units 20:11 21:21 22:22 WBC (4.5-11.0) K/mm3 RBC (3.65-5.03) M/mm3 Hgb (11.8-15.2) gm/dl Hct (35.5-45.6) % RDW (13.2-15.2) % Plt Count (140-440) K/mm3 Lymph % (Auto) (13.4-35.0) % [place] % (Auto) (0.0-7.3) % [place] # (0.0-0.8) K/mm3 Seg Neutrophils % (40.0-70.0) % Seg Neutrophils # (1.8-7.7) K/mm3 Sodium (137-145) mmol/L Chloride (98-107) mmol/L BUN (9-20) mg/dL Glucose (75-100) mg/dL POC Glucose 108 H 107 H 118 H (70-105) Calcium (8.4-10.2) mg/dL Total Protein (6.3-8.2) g/dL Albumin (3.9-5) g/dL Vancomycin Trough (5.0-20.0) ug/mL 06/18/17 06/19/17 06/19/17 Range/Units 23:04 00:43 01:29 WBC (4.5-11.0) K/mm3 RBC (3.65-5.03) M/mm3 Hgb (11.8-15.2) gm/dl Hct (35.5-45.6) % RDW (13.2-15.2) % Plt Count (140-440) K/mm3 Lymph % (Auto) (13.4-35.0) % [place] % (Auto) (0.0-7.3) % [place] # (0.0-0.8) K/mm3 Seg Neutrophils % (40.0-70.0) % Seg Neutrophils # (1.8-7.7) K/mm3 Sodium (137-145) mmol/L Chloride (98-107) mmol/L BUN (9-20) mg/dL Glucose (75-100) mg/dL POC Glucose 171 H 141 H 124 H (70-105) Calcium (8.4-10.2) mg/dL Total Protein (6.3-8.2) g/dL Albumin (3.9-5) g/dL Vancomycin Trough (5.0-20.0) ug/mL 06/19/17 06/19/17 06/19/17 Range/Units 02:06 03:01 04:37 WBC (4.5-11.0) K/mm3 RBC (3.65-5.03) M/mm3 Hgb (11.8-15.2) gm/dl Hct (35.5-45.6) % RDW (13.2-15.2) % Plt Count (140-440) K/mm3 Lymph % (Auto) (13.4-35.0) % [place] % (Auto) (0.0-7.3) % [place] # (0.0-0.8) K/mm3 Seg Neutrophils % (40.0-70.0) % Seg Neutrophils # (1.8-7.7) K/mm3 Sodium (137-145) mmol/L Chloride (98-107) mmol/L BUN (9-20) mg/dL Glucose (75-100) mg/dL POC Glucose 137 H 135 H 126 H (70-105) Calcium (8.4-10.2) mg/dL Total Protein (6.3-8.2) g/dL Albumin (3.9-5) g/dL Vancomycin Trough (5.0-20.0) ug/mL 06/19/17 06/19/17 Range/Units 06:50 06:50 WBC 14.5 H (4.5-11.0) K/mm3 RBC 3.44 L (3.65-5.03) M/mm3 Hgb 10.2 L (11.8-15.2) gm/dl Hct 30.6 L (35.5-45.6) % RDW 15.4 H (13.2-15.2) % Plt Count 139 L (140-440) K/mm3 Lymph % (Auto) 8.2 L (13.4-35.0) % [place] % (Auto) 10.5 H (0.0-7.3) % [place] # 1.5 H (0.0-0.8) K/mm3 Seg Neutrophils % 79.8 H (40.0-70.0) % Seg Neutrophils # 11.5 H (1.8-7.7) K/mm3 Sodium 154 H (137-145) mmol/L Chloride 115.0 H (98-107) mmol/L BUN 24 H (9-20) mg/dL Glucose 106 H (75-100) mg/dL POC Glucose (70-105) Calcium 7.8 L (8.4-10.2) mg/dL Total Protein 4.9 L (6.3-8.2) g/dL Albumin 2.3 L (3.9-5) g/dL Vancomycin Trough (5.0-20.0) ug/mL Microbiology 06/14/17 Unknown Leg - Left Anaerobic Culture - Final Bacteroides Distasonis Bacteroides Distasonis#2 06/14/17 Unknown Leg - Left Surgical Biopsy Culture - Final Escherichia Coli Klebsiella Pneumoniae 06/14/17 Unknown Leg - Left Surgical Culture - Final Escherichia Coli Klebsiella Pneumoniae 06/12/17 19:35 Peripheral/Venous Blood Culture - Final NO GROWTH AFTER 5 DAYS 06/12/17 18:17 Peripheral/Venous Blood Culture - Final NO GROWTH AFTER 5 DAYS 06/14/17 Unknown Tracheal Aspirate Sputum Culture - Final 06/12/17 19:11 Urine,Catheterized - Cytoscopic/Bilateral Urine Culture - Final NO GROWTH AFTER 48 HOURS - Imaging and cardiology Chest x-ray: report reviewed (improved aeration, no consolidation) CT Scan - head: report reviewed (no acute findings, no hemorrhage or mass)
[2017-06-19] MEDS: DILAUDID IV PRN (23:49)
[2017-06-20] MEDS: MERREM 1,000 MG in NACL 0.9% 100 ML IV SCH ×3 (01:00→16:53)
[2017-06-20] MEDS ORDERED: D50W (25GM) Vial IV PRN (02:16)
[2017-06-20] MEDS ORDERED: D50W (25GM) Syringe IV PRN (02:19)
[2017-06-20] MEDS: CARDIZEM PO SCH ×3 (02:37→20:54)
[2017-06-20 05:05] LABS: Basophils % (Auto) 0.4 % (0.0-1.8); Eosinophils % (Auto) 0.5 % (0.0-4.3); Hematocrit 28.7 % (35.5-45.6); Hemoglobin 9.6 gm/dl (11.8-15.2); Mean Corpuscular HGB Conc 33 % (32-34); Mean Corpuscular Hemoglobin 30 pg (28-32); Mean Corpuscular Volume 89 fl (84-94); Platelet Count 142 K/mm3 (140-440); Red Blood Count 3.21 M/mm3 (3.65-5.03); Red Cell Distribution Width 15.2 % (13.2-15.2)
[2017-06-20 05:24] LABS: Alanine Aminotransferase 22 units/L (7-56); Albumin/Globulin Ratio 0.7 %; Alkaline Phosphatase 70 units/L (35-129); Anion Gap 16 mmol/L; BUN/Creatinine Ratio 23.33; Blood Urea Nitrogen 21 mg/dL (9-20); Calcium 7.4 mg/dL (8.4-10.2); Carbon Dioxide 26 mmol/L (22-30); Chloride 106.8 mmol/L (98-107); Glucose 172 mg/dL (75-100); Potassium 3.7 mmol/L (3.6-5.0); Sodium 145 mmol/L (137-145); Total Protein 4.9 g/dL (6.3-8.2)
--- NOTE | 2017-06-20 09:29 | XRay Report ---
AP CHEST: HISTORY: Followup respiratory failure Mild cardiomegaly, mild pulmonary venous congestion and small left pleural effusion have developed since yesterday's exam. Feeding tube and right venous catheter are unchanged. IMPRESSION: Mild volume overload.
[2017-06-20] MEDS: PEPCID PO SCH ×2 (09:55→21:29)
--- NOTE | 2017-06-20 11:51 | Progress Note ---
Assessment and Plan - Patient Problems (1) Sepsis Current Visit: Yes Status: Acute Qualifiers: Sepsis type: sepsis due to unspecified organism Qualified Code(s): A41.9 - Sepsis, unspecified organism Plan to address problem: 1. Continue Meropenem (alternately Ertapenem for more convenient dosing). 2. Anticipated stop date is June 29, 2017, but a longer duration may be necessary based on status of wounds. (2) PAD (peripheral artery disease) Onset Date: 08/22/16 Current Visit: No Status: Chronic Subjective Date of service: 06/20/17 Principal diagnosis: Septic shock Interval history: Remains in ICU. Afebrile. No new events. Objective - Constitutional Vitals: Vital Signs Temp Pulse Resp BP Pulse Ox 98.4 F 101 H 23 108/63 100 06/20/17 08:00 06/20/17 11:00 06/20/17 11:00 06/20/17 11:00 06/20/17 11:00 Temperature -Last 24 Hours Temperature 98.4 F Temperature 99.0 F Temperature 98.6 F Temperature 98.9 F Temperature 98.2 F General appearance: Present: no acute distress, other (awake) - EENT ENT: other (Dobhoff tube ) - Respiratory Respiratory effort: normal Respiratory: bilateral: CTA - Cardiovascular Rhythm: irregularly irregular Extremity abnormal: edema (unchanged left left wounds, clean base, wound vac at left groin with seropurulent drainage collected) - Gastrointestinal General gastrointestinal: Present: soft, non-distended, normal bowel sounds - Genitourinary Male genitourinary: normal ([place] with clear urine) - Integumentary Integumentary: clear (well-healing right arm surgical incision, stapled, no drainage) - Psychiatric Psychiatric: cooperative - Labs CBC & Chem 7: 06/20/17 04:00 06/20/17 04:00 Labs: Abnormal lab results 06/19/17 06/19/17 06/19/17 Range/Units 05:51 07:59 09:06 WBC (4.5-11.0) K/mm3 RBC (3.65-5.03) M/mm3 Hgb (11.8-15.2) gm/dl Hct (35.5-45.6) % Lymph % (Auto) (13.4-35.0) % [place] % (Auto) (0.0-7.3) % Lymph # (1.2-5.4) K/mm3 [place] # (0.0-0.8) K/mm3 Seg Neutrophils % (40.0-70.0) % Seg Neutrophils # (1.8-7.7) K/mm3 BUN (9-20) mg/dL Glucose (75-100) mg/dL POC Glucose 132 H 132 H 124 H (70-105) Calcium (8.4-10.2) mg/dL Total Protein (6.3-8.2) g/dL Albumin (3.9-5) g/dL 06/19/17 06/19/17 06/19/17 Range/Units 10:05 11:52 13:37 WBC (4.5-11.0) K/mm3 RBC (3.65-5.03) M/mm3 Hgb (11.8-15.2) gm/dl Hct (35.5-45.6) % Lymph % (Auto) (13.4-35.0) % [place] % (Auto) (0.0-7.3) % Lymph # (1.2-5.4) K/mm3 [place] # (0.0-0.8) K/mm3 Seg Neutrophils % (40.0-70.0) % Seg Neutrophils # (1.8-7.7) K/mm3 BUN (9-20) mg/dL Glucose (75-100) mg/dL POC Glucose 124 H 157 H 143 H (70-105) Calcium (8.4-10.2) mg/dL Total Protein (6.3-8.2) g/dL Albumin (3.9-5) g/dL 06/19/17 06/19/17 06/19/17 Range/Units 14:09 16:07 17:32 WBC (4.5-11.0) K/mm3 RBC (3.65-5.03) M/mm3 Hgb (11.8-15.2) gm/dl Hct (35.5-45.6) % Lymph % (Auto) (13.4-35.0) % [place] % (Auto) (0.0-7.3) % Lymph # (1.2-5.4) K/mm3 [place] # (0.0-0.8) K/mm3 Seg Neutrophils % (40.0-70.0) % Seg Neutrophils # (1.8-7.7) K/mm3 BUN (9-20) mg/dL Glucose (75-100) mg/dL POC Glucose 143 H 183 H 132 H (70-105) Calcium (8.4-10.2) mg/dL Total Protein (6.3-8.2) g/dL Albumin (3.9-5) g/dL 06/20/17 06/20/17 06/20/17 Range/Units 02:02 03:12 04:00 WBC 15.0 H (4.5-11.0) K/mm3 RBC 3.21 L (3.65-5.03) M/mm3 Hgb 9.6 L (11.8-15.2) gm/dl Hct 28.7 L (35.5-45.6) % Lymph % (Auto) 7.0 L (13.4-35.0) % [place] % (Auto) 10.9 H (0.0-7.3) % Lymph # 1.1 L (1.2-5.4) K/mm3 [place] # 1.6 H (0.0-0.8) K/mm3 Seg Neutrophils % 81.2 H (40.0-70.0) % Seg Neutrophils # 12.2 H (1.8-7.7) K/mm3 BUN (9-20) mg/dL Glucose (75-100) mg/dL POC Glucose 62 L 120 H (70-105) Calcium (8.4-10.2) mg/dL Total Protein (6.3-8.2) g/dL Albumin (3.9-5) g/dL 06/20/17 06/20/17 06/20/17 Range/Units 04:00 04:01 05:50 WBC (4.5-11.0) K/mm3 RBC (3.65-5.03) M/mm3 Hgb (11.8-15.2) gm/dl Hct (35.5-45.6) % Lymph % (Auto) (13.4-35.0) % [place] % (Auto) (0.0-7.3) % Lymph # (1.2-5.4) K/mm3 [place] # (0.0-0.8) K/mm3 Seg Neutrophils % (40.0-70.0) % Seg Neutrophils # (1.8-7.7) K/mm3 BUN 21 H (9-20) mg/dL Glucose 172 H (75-100) mg/dL POC Glucose 151 H 190 H (70-105) Calcium 7.4 L (8.4-10.2) mg/dL Total Protein 4.9 L (6.3-8.2) g/dL Albumin 2.0 L (3.9-5) g/dL /07/29 Range/Units 08:14 WBC (4.5-11.0) K/mm3 RBC (3.65-5.03) M/mm3 Hgb (11.8-15.2) gm/dl Hct (35.5-45.6) % Lymph % (Auto) (13.4-35.0) % [place] % (Auto) (0.0-7.3) % Lymph # (1.2-5.4) K/mm3 [place] # (0.0-0.8) K/mm3 Seg Neutrophils % (40.0-70.0) % Seg Neutrophils # (1.8-7.7) K/mm3 BUN (9-20) mg/dL Glucose (75-100) mg/dL POC Glucose 142 H (70-105) Calcium (8.4-10.2) mg/dL Total Protein (6.3-8.2) g/dL Albumin (3.9-5) g/dL - Imaging and cardiology EKG: report reviewed (mild volume overload)
--- NOTE | 2017-06-20 12:23 | Progress Note ---
Assessment and Plan Septic shock Infected hematoma of the left femoral; hematoma and infected left femoral tibial graft s/p revision of the same 06/14/17 Acute blood loss anemia requiring blood transfusion Hyponatremia PVD/PAD status post recent multiple vascular surgeries Hx of CAD s/p CABG fixed inferior and inferolateral wall defect consistent with prior LA but no reversible ischemia on MPI 05/2017 Ischemic cardiomyopathy ejection fraction 40-45% on echocardiogram 05/2017 Hypertension Diabetes Hyperlipidemia Multifocal atrial tachycardia on tele on diltiazem for suppression DNR status Conservative cardiac management. Subjective Date of service: 06/20/17 Principal diagnosis: Septic shock Interval history: Patient alert with eyes open. No reported cardiac events overnight. Objective Vital Signs Temp Pulse Pulse Resp Resp BP Pulse Ox 06/20/17 11:00 101 H 23 108/63 100 06/20/17 10:03 108 H 112/72 06/20/17 10:00 107 H 25 H 119/76 98 06/20/17 09:00 103 H 20 112/72 97 06/20/17 08:21 99 06/20/17 08:00 98.4 F 105 H 105 H 18 115/66 100 06/20/17 07:00 102 H 19 125/77 99 06/20/17 06:00 110 H 26 H 117/67 99 06/20/17 05:00 97 H 18 112/61 96 06/20/17 04:00 99.0 F 111 H 21 121/70 97 06/20/17 03:00 104 H 21 111/66 98 06/20/17 02:37 109 H 105/57 06/20/17 02:00 108 H 22 105/57 100 06/20/17 01:00 114 H 20 108/63 100 06/20/17 00:00 95 H 20 123/62 99 06/19/17 23:53 98.6 F 06/19/17 23:00 108 H 22 117/68 100 06/19/17 22:01 107 H 28 H 101/71 100 06/19/17 22:00 110 H 18 06/19/17 21:00 108 H 24 109/68 100 06/19/17 20:22 100 06/19/17 20:07 104 H 28 H 128/71 100 06/19/17 20:00 113 H 24 128/71 100 06/19/17 19:00 107 H 20 135/75 99 06/19/17 18:24 94 H 119/80 06/19/17 18:00 109 H 30 H 119/80 100 06/19/17 17:00 108 H 22 118/70 100 06/19/17 16:00 98.9 F 108 H 20 139/70 100 06/19/17 15:00 110 H 22 122/73 100 06/19/17 14:00 91 H 36 H 133/73 91 06/19/17 13:00 110 H 21 132/64 83 L - Physical Examination General: No Apparent Distress Cardiac: Positive: Tachycardia - Labs and Meds Cardiac Enzymes 06/20/17 Range/Units 04:00 AST 28 (5-40) units/L CBC 06/20/17 Range/Units 04:00 WBC 15.0 H (4.5-11.0) K/mm3 RBC 3.21 L (3.65-5.03) M/mm3 Hgb 9.6 L (11.8-15.2) gm/dl Hct 28.7 L (35.5-45.6) % Plt Count 142 (140-440) K/mm3 Lymph # 1.1 L (1.2-5.4) K/mm3 [place] # 1.6 H (0.0-0.8) K/mm3 Eos # 0.1 (0.0-0.4) K/mm3 Baso # 0.1 (0.0-0.1) K/mm3 Comprehensive Metabolic Panel 06/20/17 Range/Units 04:00 Sodium 145 D (137-145) mmol/L Potassium 3.7 (3.6-5.0) mmol/L Chloride 106.8 (98-107) mmol/L Carbon Dioxide 26 (22-30) mmol/L BUN 21 H (9-20) mg/dL Creatinine 0.9 (0.8-1.5) mg/dL Glucose 172 H (75-100) mg/dL Calcium 7.4 L (8.4-10.2) mg/dL AST 28 (5-40) units/L ALT 22 (7-56) units/L Alkaline Phosphatase 70 (35-129) units/L Total Protein 4.9 L (6.3-8.2) g/dL Albumin 2.0 L (3.9-5) g/dL - Imaging and Cardiology EKG: report reviewed (mild volume overload)
[2017-06-20] MEDS: D5W 1,000 ML IV SCH (12:49)
--- NOTE | 2017-06-20 13:30 | Progress Note ---
Assessment and Plan Pt awake. Continued confusion, but more alert by the day. His left lower ext does not appear salvageable. He will likely require AKA as his condition continues to improve. Discussed with pt. Attempted to call his daughter. No answer therefore, I left a message on her voicemail. - Patient Problems (1) Atherosclerosis of [place] arteries of the extremities with gangrene Current Visit: Yes Status: Acute Qualifiers: Peripheral atherosclerosis location: P Laterality: L (2) Acute blood loss anemia Current Visit: Yes Status: Acute (3) Hypotension Current Visit: Yes Status: Acute Qualifiers: Hypotension type: H Trimester: T (4) Postoperative hemorrhage Current Visit: Yes Status: Acute Qualifiers: Surgical complication system/body Area: S Procedure type: P Laterality: L (5) CAD (coronary artery disease) Current Visit: No Status: Chronic Qualifiers: Coronary Disease-Associated Artery/Lesion type: [place] artery [place] vs. transplanted heart: N Associated angina: without angina (6) Type 2 diabetes mellitus Onset Date: 07/13/16 Current Visit: No Status: Chronic Qualifiers: Diabetes mellitus complication status: with neurologic complications Diabetes mellitus complication detail: with autonomic neuropathy Diabetic retinopathy severity: D Proliferative retinopathy type: P Diabetes mellitus macular edema: D Diabetes mellitus terminal press operator insulin use: with senior care use Laterality: L Chronic kidney disease stage: C Qualified Code(s): E11.43 - Type 2 diabetes mellitus with diabetic autonomic (poly)neuropathy; Z79.4 - superintendent terminal (current) use of insulin (7) Altered mental status Current Visit: Yes Status: Acute Qualifiers: Altered mental status type: A Coma depth: C Coma timing: C Subjective Date of service: 06/20/17 Principal diagnosis: Septic shock Interval history: Pt awake, denies pain or other complaint at present. Objective - Exam Narrative Exam: - Constitutional Vitals: Vital Signs - 12hr 06/20/17 06/20/17 06/20/17 02:00 02:37 03:00 Temperature Pulse Rate 108 H 109 H 104 H Pulse Rate [ From Monitor] Respiratory 22 21 Rate Blood Pressure 105/57 105/57 111/66 O2 Sat by Pulse 100 98 Oximetry 06/20/17 06/20/17 06/20/17 04:00 05:00 06:00 Temperature 99.0 F Pulse Rate 111 H 97 H 110 H Pulse Rate [ From Monitor] Respiratory 21 18 26 H Rate Blood Pressure 121/70 112/61 117/67 O2 Sat by Pulse 97 96 99 Oximetry 06/20/17 06/20/17 06/20/17 07:00 08:00 08:21 Temperature 98.4 F Pulse Rate 102 H 105 H Pulse Rate [ 105 H From Monitor] Respiratory 19 18 Rate Blood Pressure 125/77 115/66 O2 Sat by Pulse 99 100 99 Oximetry 06/20/17 06/20/17 06/20/17 09:00 10:00 10:03 Temperature Pulse Rate 103 H 107 H 108 H Pulse Rate [ From Monitor] Respiratory 20 25 H Rate Blood Pressure 112/72 119/76 112/72 O2 Sat by Pulse 97 98 Oximetry 06/20/17 06/20/17 11:00 12:00 Temperature Pulse Rate 101 H 104 H Pulse Rate [ From Monitor] Respiratory 23 20 Rate Blood Pressure 108/63 113/65 O2 Sat by Pulse 100 100 Oximetry General appearance: Present: no acute distress - EENT Eyes: EOM intact - Neck Neck: supple - Respiratory Respiratory effort: normal (at rest on supplemental oxygen by NC) Extremities: abnormal (Left lower ext wounds, Bandages remove from lower leg. Mild odor with necrotic muscle from calf wound, Necrosis skin surrounding wound. Dark tissue from posterior calf and volar aspect of his foot. (see pictures)) - Neurologic Neurologic: other (awake, unable to move his left foot) - Psychiatric Psychiatric: no appropriate mood/affect (flat affect), no intact judgment & insight (but able to speak, slow to respond to questions.), cooperative ( follows commands) - Labs CBC & Chem 7: 06/20/17 04:00 06/20/17 04:00 Labs: Abnormal lab results 06/19/17 06/19/17 06/19/17 Range/Units 05:51 07:59 09:06 WBC (4.5-11.0) K/mm3 RBC (3.65-5.03) M/mm3 Hgb (11.8-15.2) gm/dl Hct (35.5-45.6) % Lymph % (Auto) (13.4-35.0) % [place] % (Auto) (0.0-7.3) % Lymph # (1.2-5.4) K/mm3 [place] # (0.0-0.8) K/mm3 Seg Neutrophils % (40.0-70.0) % Seg Neutrophils # (1.8-7.7) K/mm3 BUN (9-20) mg/dL Glucose (75-100) mg/dL POC Glucose 132 H 132 H 124 H (70-105) Calcium (8.4-10.2) mg/dL Total Protein (6.3-8.2) g/dL Albumin (3.9-5) g/dL 06/19/17 06/19/17 06/19/17 Range/Units 10:05 11:52 13:37 WBC (4.5-11.0) K/mm3 RBC (3.65-5.03) M/mm3 Hgb (11.8-15.2) gm/dl Hct (35.5-45.6) % Lymph % (Auto) (13.4-35.0) % [place] % (Auto) (0.0-7.3) % Lymph # (1.2-5.4) K/mm3 [place] # (0.0-0.8) K/mm3 Seg Neutrophils % (40.0-70.0) % Seg Neutrophils # (1.8-7.7) K/mm3 BUN (9-20) mg/dL Glucose (75-100) mg/dL POC Glucose 124 H 157 H 143 H (70-105) Calcium (8.4-10.2) mg/dL Total Protein (6.3-8.2) g/dL Albumin (3.9-5) g/dL 06/19/17 06/19/17 06/19/17 Range/Units 14:09 16:07 17:32 WBC (4.5-11.0) K/mm3 RBC (3.65-5.03) M/mm3 Hgb (11.8-15.2) gm/dl Hct (35.5-45.6) % Lymph % (Auto) (13.4-35.0) % [place] % (Auto) (0.0-7.3) % Lymph # (1.2-5.4) K/mm3 [place] # (0.0-0.8) K/mm3 Seg Neutrophils % (40.0-70.0) % Seg Neutrophils # (1.8-7.7) K/mm3 BUN (9-20) mg/dL Glucose (75-100) mg/dL POC Glucose 143 H 183 H 132 H (70-105) Calcium (8.4-10.2) mg/dL Total Protein (6.3-8.2) g/dL Albumin (3.9-5) g/dL 06/20/17 06/20/17 06/20/17 Range/Units 02:02 03:12 04:00 WBC 15.0 H (4.5-11.0) K/mm3 RBC 3.21 L (3.65-5.03) M/mm3 Hgb 9.6 L (11.8-15.2) gm/dl Hct 28.7 L (35.5-45.6) % Lymph % (Auto) 7.0 L (13.4-35.0) % [place] % (Auto) 10.9 H (0.0-7.3) % Lymph # 1.1 L (1.2-5.4) K/mm3 [place] # 1.6 H (0.0-0.8) K/mm3 Seg Neutrophils % 81.2 H (40.0-70.0) % Seg Neutrophils # 12.2 H (1.8-7.7) K/mm3 BUN (9-20) mg/dL Glucose (75-100) mg/dL POC Glucose 62 L 120 H (70-105) Calcium (8.4-10.2) mg/dL Total Protein (6.3-8.2) g/dL Albumin (3.9-5) g/dL 06/20/17 06/20/17 06/20/17 Range/Units 04:00 04:01 05:50 WBC (4.5-11.0) K/mm3 RBC (3.65-5.03) M/mm3 Hgb (11.8-15.2) gm/dl Hct (35.5-45.6) % Lymph % (Auto) (13.4-35.0) % [place] % (Auto) (0.0-7.3) % Lymph # (1.2-5.4) K/mm3 [place] # (0.0-0.8) K/mm3 Seg Neutrophils % (40.0-70.0) % Seg Neutrophils # (1.8-7.7) K/mm3 BUN 21 H (9-20) mg/dL Glucose 172 H (75-100) mg/dL POC Glucose 151 H 190 H (70-105) Calcium 7.4 L (8.4-10.2) mg/dL Total Protein 4.9 L (6.3-8.2) g/dL Albumin 2.0 L (3.9-5) g/dL 06/20/17 Range/Units 08:14 WBC (4.5-11.0) K/mm3 RBC (3.65-5.03) M/mm3 Hgb (11.8-15.2) gm/dl Hct (35.5-45.6) % Lymph % (Auto) (13.4-35.0) % [place] % (Auto) (0.0-7.3) % Lymph # (1.2-5.4) K/mm3 [place] # (0.0-0.8) K/mm3 Seg Neutrophils % (40.0-70.0) % Seg Neutrophils # (1.8-7.7) K/mm3 BUN (9-20) mg/dL Glucose (75-100) mg/dL POC Glucose 142 H (70-105) Calcium (8.4-10.2) mg/dL Total Protein (6.3-8.2) g/dL Albumin (3.9-5) g/dL
--- NOTE | 2017-06-20 14:18 | Progress Note ---
Assessment and Plan Patient is a 76 year old male with hx of PAD, S/P multiple vascular surgeries including a TMA with a wound VAC that malfunctioned leading to blood loss with blood tranfusion. S/p re-do bypass graft, as the distal portion of the bypass of the left tibia to be infected. Bypass tissue friable and would not hold repair sutures. Arm vein harvested and distal portion bypassed around to lower portion of the BOW REHAIRER. Patient also has history of CAD CABG more than many years ago, ischemic cardiomyopathy hypertension diabetes hyperlipidemia with last known ejection fraction of 40-45% Presents to jail with hypotension, fever. With no improvement despite multiple fluid suspicion was placed on pressors in the ER, admitted to the hospital. -Septic shock w/possible hemorrhagic shock - improving -Infected hematoma of the left femoral; hematoma and infected left femoral tibial graft s/p revision of the same 06/14/17- leukocytosis -Acute blood loss anemia- resolved -Uncontrolled diabetes mellitus- improving on insulin drip -CAD s/p CABG -Tachycardia with PVC -Diabetic wound -Hypernatremia. -S/P Left TMA amputation - healing poorly -S/P wound vac to left foot surgical wound site -Severe PAD s/p multiple revasculariztionprocedures PLAN * S/p Redo of left Popliteal * Shock resolved with iv hydration * Free water for hypernatrmia * Continue supportive care, discussed with aerobics teacher, Vascular surgery, ED and patients family * S/P 5 units PRBC, Monitor h/h, Transfuse as needed * Continue IV abx, wound cultures, blood cultures yielded E.coli, ID following * Follow up recs from vascular surgery * Wound care consult to manage wound vac * Cardiology consult and monitor Electrolytes * Accucheck Q1hr. On insulin drip * discussed wtihpt's daughter at length 2 days ago. He is a DNR/DNI * DVT/GI prophylaxis Subjective Date of service: 06/20/17 Principal diagnosis: Septic shock, PAD s/p left limb salvage procedures Interval history: confused Objective - Constitutional Vitals: Vital Signs - 12hr 06/20/17 06/20/17 06/20/17 02:37 03:00 04:00 Temperature 99.0 F Pulse Rate 109 H 104 H 111 H Pulse Rate [ From Monitor] Respiratory 21 21 Rate Blood Pressure 105/57 111/66 121/70 O2 Sat by Pulse 98 97 Oximetry 06/20/17 06/20/17 06/20/17 05:00 06:00 07:00 Temperature Pulse Rate 97 H 110 H 102 H Pulse Rate [ From Monitor] Respiratory 18 26 H 19 Rate Blood Pressure 112/61 117/67 125/77 O2 Sat by Pulse 96 99 99 Oximetry 06/20/17 06/20/17 06/20/17 08:00 08:21 09:00 Temperature 98.4 F Pulse Rate 105 H 103 H Pulse Rate [ 105 H From Monitor] Respiratory 18 20 Rate Blood Pressure 115/66 112/72 O2 Sat by Pulse 100 99 97 Oximetry 06/20/17 06/20/17 06/20/17 10:00 10:03 11:00 Temperature Pulse Rate 107 H 108 H 101 H Pulse Rate [ From Monitor] Respiratory 25 H 23 Rate Blood Pressure 119/76 112/72 108/63 O2 Sat by Pulse 98 100 Oximetry 06/20/17 12:00 Temperature Pulse Rate 104 H Pulse Rate [ From Monitor] Respiratory 20 Rate Blood Pressure 113/65 O2 Sat by Pulse 100 Oximetry General appearance: Present: no acute distress, well-nourished - EENT Eyes: PERRL, EOM intact - Neck Neck: supple, normal ROM - Respiratory Respiratory effort: normal Respiratory: bilateral: diminished - Cardiovascular Rhythm: regular Heart Sounds: Present: S1 & S2. Absent: gallop, rub Extremities: pulses intact, No edema, normal color, Full ROM - Gastrointestinal General gastrointestinal: Present: soft, non-tender, non-distended, normal bowel sounds - Integumentary Integumentary: clear, warm, dry - Musculoskeletal Musculoskeletal: generalized weakness - Neurologic Neurologic: moves all extremities - Labs CBC & Chem 7: 06/20/17 04:00 06/20/17 04:00 Labs: Abnormal lab results 06/19/17 06/19/17 06/19/17 Range/Units 05:51 07:59 09:06 WBC (4.5-11.0) K/mm3 RBC (3.65-5.03) M/mm3 Hgb (11.8-15.2) gm/dl Hct (35.5-45.6) % Lymph % (Auto) (13.4-35.0) % [place] % (Auto) (0.0-7.3) % Lymph # (1.2-5.4) K/mm3 [place] # (0.0-0.8) K/mm3 Seg Neutrophils % (40.0-70.0) % Seg Neutrophils # (1.8-7.7) K/mm3 BUN (9-20) mg/dL Glucose (75-100) mg/dL POC Glucose 132 H 132 H 124 H (70-105) Calcium (8.4-10.2) mg/dL Total Protein (6.3-8.2) g/dL Albumin (3.9-5) g/dL 06/19/17 06/19/17 06/19/17 Range/Units 10:05 11:52 13:37 WBC (4.5-11.0) K/mm3 RBC (3.65-5.03) M/mm3 Hgb (11.8-15.2) gm/dl Hct (35.5-45.6) % Lymph % (Auto) (13.4-35.0) % [place] % (Auto) (0.0-7.3) % Lymph # (1.2-5.4) K/mm3 [place] # (0.0-0.8) K/mm3 Seg Neutrophils % (40.0-70.0) % Seg Neutrophils # (1.8-7.7) K/mm3 BUN (9-20) mg/dL Glucose (75-100) mg/dL POC Glucose 124 H 157 H 143 H (70-105) Calcium (8.4-10.2) mg/dL Total Protein (6.3-8.2) g/dL Albumin (3.9-5) g/dL 06/19/17 06/19/17 06/19/17 Range/Units 14:09 16:07 17:32 WBC (4.5-11.0) K/mm3 RBC (3.65-5.03) M/mm3 Hgb (11.8-15.2) gm/dl Hct (35.5-45.6) % Lymph % (Auto) (13.4-35.0) % [place] % (Auto) (0.0-7.3) % Lymph # (1.2-5.4) K/mm3 [place] # (0.0-0.8) K/mm3 Seg Neutrophils % (40.0-70.0) % Seg Neutrophils # (1.8-7.7) K/mm3 BUN (9-20) mg/dL Glucose (75-100) mg/dL POC Glucose 143 H 183 H 132 H (70-105) Calcium (8.4-10.2) mg/dL Total Protein (6.3-8.2) g/dL Albumin (3.9-5) g/dL 06/20/17 06/20/17 06/20/17 Range/Units 02:02 03:12 04:00 WBC 15.0 H (4.5-11.0) K/mm3 RBC 3.21 L (3.65-5.03) M/mm3 Hgb 9.6 L (11.8-15.2) gm/dl Hct 28.7 L (35.5-45.6) % Lymph % (Auto) 7.0 L (13.4-35.0) % [place] % (Auto) 10.9 H (0.0-7.3) % Lymph # 1.1 L (1.2-5.4) K/mm3 [place] # 1.6 H (0.0-0.8) K/mm3 Seg Neutrophils % 81.2 H (40.0-70.0) % Seg Neutrophils # 12.2 H (1.8-7.7) K/mm3 BUN (9-20) mg/dL Glucose (75-100) mg/dL POC Glucose 62 L 120 H (70-105) Calcium (8.4-10.2) mg/dL Total Protein (6.3-8.2) g/dL Albumin (3.9-5) g/dL 06/20/17 06/20/17 06/20/17 Range/Units 04:00 04:01 05:50 WBC (4.5-11.0) K/mm3 RBC (3.65-5.03) M/mm3 Hgb (11.8-15.2) gm/dl Hct (35.5-45.6) % Lymph % (Auto) (13.4-35.0) % [place] % (Auto) (0.0-7.3) % Lymph # (1.2-5.4) K/mm3 [place] # (0.0-0.8) K/mm3 Seg Neutrophils % (40.0-70.0) % Seg Neutrophils # (1.8-7.7) K/mm3 BUN 21 H (9-20) mg/dL Glucose 172 H (75-100) mg/dL POC Glucose 151 H 190 H (70-105) Calcium 7.4 L (8.4-10.2) mg/dL Total Protein 4.9 L (6.3-8.2) g/dL Albumin 2.0 L (3.9-5) g/dL 06/20/17 Range/Units 08:14 WBC (4.5-11.0) K/mm3 RBC (3.65-5.03) M/mm3 Hgb (11.8-15.2) gm/dl Hct (35.5-45.6) % Lymph % (Auto) (13.4-35.0) % Tama % (Auto) (0.0-7.3) % Lymph # (1.2-5.4) K/mm3 Tama # (0.0-0.8) K/mm3 Seg Neutrophils % (40.0-70.0) % Seg Neutrophils # (1.8-7.7) K/mm3 BUN (9-20) mg/dL Glucose (75-100) mg/dL POC Glucose 142 H (70-105) Calcium (8.4-10.2) mg/dL Total Protein (6.3-8.2) g/dL Albumin (3.9-5) g/dL
[2017-06-20] MEDS: NOVOLOG SUB-Q SCH ×2 (14:25→18:09)
--- NOTE | 2017-06-20 14:38 | Progress Note ---
Assessment and Plan Imp: 1. Acute respiratory failure 2. Sepsis/shock 3. Infected hematoma/acute blood loss anemia 4. PAD 5. AMEYA 6. Hypernatremia 7. Metabolic/toxic encephalopathy Rec: 1. CT head neg for obvious acute process 2. Cont. free water; continue D5W until sodium fully corrected, hopefully stop in AM; change insulin drip to sliding scale 3. TFs per nutrition recs; ST evaluation of swallow 4. ABX per ID 5. F/u vascular recs 6. Wound care 7. PT/OT consults 8. On Cardizem PO for MAT per cards 9. Keep in ICU another 24 hours 10. Complex patient No family present today Subjective Date of service: 06/20/17 Principal diagnosis: Septic shock, PAD s/p left limb salvage procedures Interval history: No events. On nasal cannula. Less confused. Oriented to person/date. No SOB, pain, other complaints currently. Remains tachycardic. Active Medications Acetaminophen (Tylenol) 650 mg ME Q4H PRN PRN Reason: Pain, Mild (1-3) Last Admin: 06/16/17 07:34 Dose: 650 mg Acetaminophen (Tylenol) 650 mg PO Q4H PRN PRN Reason: For Pain/Fever/Headache Last Admin: 06/19/17 04:46 Dose: 650 mg Acetaminophen/Hydrocodone Bitart ([place] 5/325) 2 each PO Q6H PRN PRN Reason: Pain, Moderate (4-6) Last Admin: 06/18/17 23:45 Dose: 2 each Lipase/Protease/Amylase (Pancreaze Dr 10,500 Unit) 1 each FEEDTUBE PRN PRN PRN Reason: For Clogged Feeding Tube Dextrose (D50w (25gm)) 50 ml IV PRN PRN PRN Reason: Hypoglycemia Diltiazem HCl (Cardizem) 30 mg PO Q8H MARQUEZ Last Admin: 06/20/17 10:03 Dose: 30 mg Famotidine (Pepcid) 20 mg PO BID MARQUEZ Last Admin: 06/20/17 09:55 Dose: 20 mg Hydromorphone HCl (Dilaudid) 0.5 mg IV Q4H PRN PRN Reason: Pain , Severe (7-10) Last Admin: 06/19/17 23:49 Dose: 0.5 mg Hydrophilic Ointment (Vaseline Lip Therapy) 1 applic TP Q2HR PRN PRN Reason: Dry Lips Meropenem 1,000 mg/ Sodium (Chloride) 100 mls @ 100 mls/hr IV Q8H MARQUEZ PRN Reason: Protocol Last Admin: 06/20/17 09:56 Dose: 100 mls/hr Dextrose (D5w) 1,000 mls @ 75 mls/hr IV DIRECT [facility] Last Admin: 06/20/17 12:49 Dose: 75 mls/hr Insulin Aspart (Novolog) 0 units SUB-Q Q6HR MARQUEZ PRN Reason: Protocol Last Admin: 06/20/17 14:25 Dose: Not Given Multi-Ingred Cream/Lotion/Oil/Oint (Artificial Tears Ophth Oint) 1 applic OU Q4HR PRN PRN Reason: Dry Eye(s) Naloxone HCl (Narcan 0.4 Mg/1 Ml) 0.1 mg IV Q2MIN PRN PRN Reason: Res Rate </= 8 or 02 SAT < 92% Ondansetron HCl (Zofran) 4 mg IV Q6H PRN PRN Reason: Nausea And Vomiting Simple Syrup (Simple Syrup) 15 ml FEEDTUBE PRN PRN PRN Reason: Hypoglycemia Simple Syrup (Simple Syrup) 30 ml FEEDTUBE PRN PRN PRN Reason: Hypoglycemia Sodium Bicarbonate (Sodium Bicarbonate) 325 mg FEEDTUBE PRN PRN PRN Reason: For Clogged Feeding Tube Objective Vital Signs - 12hr 06/20/17 06/20/17 06/20/17 02:37 03:00 04:00 Temperature 99.0 F Pulse Rate 109 H 104 H 111 H Pulse Rate [ From Monitor] Respiratory 21 21 Rate Blood Pressure 105/57 111/66 121/70 O2 Sat by Pulse 98 97 Oximetry 06/20/17 06/20/17 06/20/17 05:00 06:00 07:00 Temperature Pulse Rate 97 H 110 H 102 H Pulse Rate [ From Monitor] Respiratory 18 26 H 19 Rate Blood Pressure 112/61 117/67 125/77 O2 Sat by Pulse 96 99 99 Oximetry 06/20/17 06/20/17 06/20/17 08:00 08:21 09:00 Temperature 98.4 F Pulse Rate 105 H 103 H Pulse Rate [ 105 H From Monitor] Respiratory 18 20 Rate Blood Pressure 115/66 112/72 O2 Sat by Pulse 100 99 97 Oximetry 06/20/17 06/20/17 06/20/17 10:00 10:03 11:00 Temperature Pulse Rate 107 H 108 H 101 H Pulse Rate [ From Monitor] Respiratory 25 H 23 Rate Blood Pressure 119/76 112/72 108/63 O2 Sat by Pulse 98 100 Oximetry 06/20/17 06/20/17 06/20/17 12:00 13:00 14:00 Temperature Pulse Rate 104 H 100 H 90 Pulse Rate [ From Monitor] Respiratory 20 24 22 Rate Blood Pressure 113/65 113/68 113/67 O2 Sat by Pulse 100 99 97 Oximetry Constitutional: alert Eyes: non-icteric Neck: supple Effort: normal Ascultation: Bilateral: clear Percussion: Bilateral: not dull Cardiovascular: regular rate and rhythm (no mrg) Gastrointestinal: normoactive bowel sounds, soft, non-tender, non-distended Extremities: no cyanosis, edema (1+ bilateral LE edema), other (wound vacs in place on left) Neurologic: normal mental status (mildly confused), non-focal exam (? weakness RUE) Psychiatric: mood appropriate, affect normal CBC and BMP: 06/20/17 04:00 06/20/17 04:00 ABG, PT/INR, D-dimer: ABG POC ABG pH 7.424 (7.35-7.45) 06/16/17 11:28 POC ABG pCO2 30.3 (35-45) L 06/16/17 11:28 POC ABG pO2 118 (80-105) H 06/16/17 11:28 POC ABG HCO3 19.8 06/16/17 11:28 POC ABG Total CO2 21 06/16/17 11:28 POC ABG O2 Sat 99 06/16/17 11:28 PT/INR, D-dimer PT 15.9 Sec. (12.2-14.9) H 06/14/17 07:42 INR 1.28 (0.87-1.13) H 06/14/17 07:42 Abnormal lab findings: Abnormal Labs 06/13/17 06/13/17 06/13/17 00:18 05:20 10:28 WBC RBC Hgb 6.3 L 7.1 L Hct 19.6 L* 22.1 L RDW Plt Count Lymph % (Auto) [place] % (Auto) Lymph # [place] # Seg Neutrophils % Seg Neuts % (Manual) Lymphocytes % (Manual) Monocytes % (Manual) Seg Neutrophils # Seg Neutrophils # Man Lymphocytes # (Manual) Monocytes # (Manual) PT INR POC ABG pH POC ABG pCO2 POC ABG pO2 Sodium Potassium Chloride Carbon Dioxide BUN Creatinine Glucose POC Glucose 289 H Calcium AST Total Protein Albumin Vancomycin Trough Crossmatch 06/13/17 06/13/17 06/13/17 12:00 16:20 18:45 WBC RBC Hgb 9.9 L 8.8 L Hct 28.8 L D 26.5 L RDW Plt Count Lymph % (Auto) [place] % (Auto) Lymph # [place] # Seg Neutrophils % Seg Neuts % (Manual) Lymphocytes % (Manual) Monocytes % (Manual) Seg Neutrophils # Seg Neutrophils # Man Lymphocytes # (Manual) Monocytes # (Manual) PT INR POC ABG pH POC ABG pCO2 POC ABG pO2 Sodium Potassium Chloride Carbon Dioxide BUN Creatinine Glucose POC Glucose 292 H Calcium AST Total Protein Albumin Vancomycin Trough Crossmatch 06/13/17 06/13/17 06/13/17 18:49 21:13 Unknown WBC RBC Hgb 9.3 L Hct 27.8 L RDW Plt Count Lymph % (Auto) [place] % (Auto) Lymph # [place] # Seg Neutrophils % Seg Neuts % (Manual) Lymphocytes % (Manual) Monocytes % (Manual) Seg Neutrophils # Seg Neutrophils # Man Lymphocytes # (Manual) Monocytes # (Manual) PT INR POC ABG pH POC ABG pCO2 POC ABG pO2 Sodium Potassium Chloride Carbon Dioxide BUN Creatinine Glucose POC Glucose 252 H 234 H Calcium AST Total Protein Albumin Vancomycin Trough Crossmatch 06/14/17 06/14/17 06/14/17 00:24 01:53 04:44 WBC RBC Hgb 8.5 L 8.2 L Hct 25.7 L 25.1 L RDW Plt Count Lymph % (Auto) [place] % (Auto) Lymph # [place] # Seg Neutrophils % Seg Neuts % (Manual) Lymphocytes % (Manual) Monocytes % (Manual) Seg Neutrophils # Seg Neutrophils # Man Lymphocytes # (Manual) Monocytes # (Manual) PT INR POC ABG pH POC ABG pCO2 POC ABG pO2 Sodium Potassium Chloride Carbon Dioxide BUN Creatinine Glucose POC Glucose 213 H Calcium AST Total Protein Albumin Vancomycin Trough Crossmatch 06/14/17 06/14/17 06/14/17 05:49 07:42 07:42 WBC 12.2 H RBC 2.77 L Hgb 8.1 L Hct 25.0 L RDW 15.7 H Plt Count Lymph % (Auto) [place] % (Auto) Lymph # [place] # Seg Neutrophils % Seg Neuts % (Manual) Lymphocytes % (Manual) Monocytes % (Manual) Seg Neutrophils # Seg Neutrophils # Man Lymphocytes # (Manual) Monocytes # (Manual) PT 15.9 H INR 1.28 H POC ABG pH POC ABG pCO2 POC ABG pO2 Sodium Potassium Chloride Carbon Dioxide BUN Creatinine Glucose POC Glucose 218 H Calcium AST Total Protein Albumin Vancomycin Trough Crossmatch 06/14/17 06/14/17 06/14/17 07:42 14:31 16:45 WBC 14.0 H RBC 3.61 L Hgb 10.9 L Hct 32.8 L D RDW 15.8 H Plt Count Lymph % (Auto) [place] % (Auto) Lymph # [place] # Seg Neutrophils % Seg Neuts % (Manual) Lymphocytes % (Manual) Monocytes % (Manual) Seg Neutrophils # Seg Neutrophils # Man Lymphocytes # (Manual) Monocytes # (Manual) PT INR POC ABG pH POC ABG pCO2 POC ABG pO2 Sodium 146 H D Potassium Chloride 110.2 H Carbon Dioxide 15 L D BUN 25 H Creatinine Glucose 185 H POC Glucose 235 H Calcium 8.0 L AST Total Protein 5.1 L Albumin 2.0 L Vancomycin Trough Crossmatch 06/14/17 06/14/17 06/14/17 19:34 19:45 19:45 WBC 13.1 H RBC 3.33 L Hgb 9.9 L Hct 29.7 L RDW 15.7 H Plt Count 126 L Lymph % (Auto) [place] % (Auto) Lymph # [place] # Seg Neutrophils % Seg Neuts % (Manual) Lymphocytes % (Manual) Monocytes % (Manual) Seg Neutrophils # Seg Neutrophils # Man Lymphocytes # (Manual) Monocytes # (Manual) PT INR POC ABG pH POC ABG pCO2 POC ABG pO2 Sodium 148 H Potassium 5.7 H D Chloride 108.5 H Carbon Dioxide 12 L BUN 29 H Creatinine 1.7 H Glucose 324 H POC Glucose 296 H Calcium 7.9 L AST Total Protein Albumin Vancomycin Trough Crossmatch 06/14/17 06/14/17 06/14/17 20:05 21:53 23:06 WBC RBC Hgb Hct RDW Plt Count Lymph % (Auto) [place] % (Auto) Lymph # [place] # Seg Neutrophils % Seg Neuts % (Manual) Lymphocytes % (Manual) Monocytes % (Manual) Seg Neutrophils # Seg Neutrophils # Man Lymphocytes # (Manual) Monocytes # (Manual) PT INR POC ABG pH 7.241 L 7.298 L POC ABG pCO2 32.3 L 26.8 L POC ABG pO2 550 H 303 H Sodium Potassium Chloride Carbon Dioxide BUN Creatinine Glucose POC Glucose 259 H Calcium AST Total Protein Albumin Vancomycin Trough Crossmatch 06/15/17 06/15/17 06/15/17 02:08 06:00 06:15 WBC RBC Hgb 8.8 L Hct 26.4 L RDW Plt Count Lymph % (Auto) [place] % (Auto) Lymph # [place] # Seg Neutrophils % Seg Neuts % (Manual) Lymphocytes % (Manual) Monocytes % (Manual) Seg Neutrophils # Seg Neutrophils # Man Lymphocytes # (Manual) Monocytes # (Manual) PT INR POC ABG pH POC ABG pCO2 POC ABG pO2 Sodium Potassium Chloride Carbon Dioxide BUN Creatinine Glucose POC Glucose 334 H 233 H Calcium AST Total Protein Albumin Vancomycin Trough Crossmatch 06/15/17 06/15/17 06/15/17 06:15 06:54 09:32 WBC RBC Hgb Hct RDW Plt Count Lymph % (Auto) [place] % (Auto) Lymph # [place] # Seg Neutrophils % Seg Neuts % (Manual) Lymphocytes % (Manual) Monocytes % (Manual) Seg Neutrophils # Seg Neutrophils # Man Lymphocytes # (Manual) Monocytes # (Manual) PT INR POC ABG pH POC ABG pCO2 34.4 L POC ABG pO2 191 H Sodium 151 H Potassium Chloride 114.7 H Carbon Dioxide 18 L BUN 29 H Creatinine 1.8 H Glucose 259 H POC Glucose 229 H Calcium 7.7 L AST Total Protein Albumin Vancomycin Trough Crossmatch 06/15/17 06/15/17 06/15/17 11:35 12:32 13:36 WBC RBC Hgb Hct RDW Plt Count Lymph % (Auto) [place] % (Auto) Lymph # [place] # Seg Neutrophils % Seg Neuts % (Manual) Lymphocytes % (Manual) Monocytes % (Manual) Seg Neutrophils # Seg Neutrophils # Man Lymphocytes # (Manual) Monocytes # (Manual) PT INR POC ABG pH POC ABG pCO2 POC ABG pO2 Sodium Potassium Chloride Carbon Dioxide BUN Creatinine Glucose POC Glucose 202 H 189 H Calcium AST Total Protein Albumin Vancomycin Trough Crossmatch See Detail 06/15/17 06/15/17 06/15/17 14:30 15:32 16:28 WBC RBC Hgb Hct RDW Plt Count Lymph % (Auto) [place] % (Auto) Lymph # [place] # Seg Neutrophils % Seg Neuts % (Manual) Lymphocytes % (Manual) Monocytes % (Manual) Seg Neutrophils # Seg Neutrophils # Man Lymphocytes # (Manual) Monocytes # (Manual) PT INR POC ABG pH POC ABG pCO2 POC ABG pO2 Sodium Potassium Chloride Carbon Dioxide BUN Creatinine Glucose POC Glucose 142 H 106 H 119 H Calcium AST Total Protein Albumin Vancomycin Trough Crossmatch 06/15/17 06/15/17 06/15/17 17:36 19:30 20:51 WBC RBC Hgb Hct RDW Plt Count Lymph % (Auto) [place] % (Auto) Lymph # [place] # Seg Neutrophils % Seg Neuts % (Manual) Lymphocytes % (Manual) Monocytes % (Manual) Seg Neutrophils # Seg Neutrophils # Man Lymphocytes # (Manual) Monocytes # (Manual) PT INR POC ABG pH POC ABG pCO2 POC ABG pO2 Sodium Potassium Chloride Carbon Dioxide BUN Creatinine Glucose POC Glucose 121 H 109 H 112 H Calcium AST Total Protein Albumin Vancomycin Trough Crossmatch 06/15/17 06/15/17 06/16/17 21:42 23:27 01:11 WBC RBC Hgb Hct RDW Plt Count Lymph % (Auto) [place] % (Auto) Lymph # [place] # Seg Neutrophils % Seg Neuts % (Manual) Lymphocytes % (Manual) Monocytes % (Manual) Seg Neutrophils # Seg Neutrophils # Man Lymphocytes # (Manual) Monocytes # (Manual) PT INR POC ABG pH POC ABG pCO2 POC ABG pO2 Sodium Potassium Chloride Carbon Dioxide BUN Creatinine Glucose POC Glucose 122 H 142 H 162 H Calcium AST Total Protein Albumin Vancomycin Trough Crossmatch 06/16/17 06/16/17 06/16/17 02:03 02:57 04:05 WBC RBC Hgb Hct RDW Plt Count Lymph % (Auto) [place] % (Auto) Lymph # [place] # Seg Neutrophils % Seg Neuts % (Manual) Lymphocytes % (Manual) Monocytes % (Manual) Seg Neutrophils # Seg Neutrophils # Man Lymphocytes # (Manual) Monocytes # (Manual) PT INR POC ABG pH POC ABG pCO2 POC ABG pO2 Sodium Potassium Chloride Carbon Dioxide BUN Creatinine Glucose POC Glucose 117 H 106 H 108 H Calcium AST Total Protein Albumin Vancomycin Trough Crossmatch 06/16/17 06/16/17 06/16/17 05:09 05:23 06:03 WBC RBC Hgb Hct RDW Plt Count Lymph % (Auto) [place] % (Auto) Lymph # [place] # Seg Neutrophils % Seg Neuts % (Manual) Lymphocytes % (Manual) Monocytes % (Manual) Seg Neutrophils # Seg Neutrophils # Man Lymphocytes # (Manual) Monocytes # (Manual) PT INR POC ABG pH POC ABG pCO2 POC ABG pO2 Sodium Potassium Chloride Carbon Dioxide BUN Creatinine Glucose POC Glucose 114 H 125 H 138 H Calcium AST Total Protein Albumin Vancomycin Trough Crossmatch 06/16/17 06/16/17 06/16/17 06:25 06:25 07:07 WBC 14.7 H RBC 3.28 L Hgb 9.8 L Hct 29.1 L RDW 15.7 H Plt Count 117 L Lymph % (Auto) [place] % (Auto) Lymph # [place] # Seg Neutrophils % Seg Neuts % (Manual) 81.0 H Lymphocytes % (Manual) 3.0 L Monocytes % (Manual) 15.0 H Seg Neutrophils # Seg Neutrophils # Man 11.9 H Lymphocytes # (Manual) 0.4 L Monocytes # (Manual) 2.2 H PT INR POC ABG pH POC ABG pCO2 POC ABG pO2 Sodium 155 H Potassium Chloride 117.9 H Carbon Dioxide BUN 22 H Creatinine Glucose 107 H POC Glucose 127 H Calcium 7.9 L AST 57 H Total Protein 5.4 L Albumin 2.4 L Vancomycin Trough Crossmatch 06/16/17 06/16/17 06/16/17 08:00 09:07 10:11 WBC RBC Hgb Hct RDW Plt Count Lymph % (Auto) [place] % (Auto) Lymph # [place] # Seg Neutrophils % Seg Neuts % (Manual) Lymphocytes % (Manual) Monocytes % (Manual) Seg Neutrophils # Seg Neutrophils # Man Lymphocytes # (Manual) Monocytes # (Manual) PT INR POC ABG pH POC ABG pCO2 POC ABG pO2 Sodium Potassium Chloride Carbon Dioxide BUN Creatinine Glucose POC Glucose 113 H 106 H 107 H Calcium AST Total Protein Albumin Vancomycin Trough Crossmatch 06/16/17 06/16/17 06/16/17 10:59 11:28 12:11 WBC RBC Hgb Hct RDW Plt Count Lymph % (Auto) [place] % (Auto) Lymph # [place] # Seg Neutrophils % Seg Neuts % (Manual) Lymphocytes % (Manual) Monocytes % (Manual) Seg Neutrophils # Seg Neutrophils # Man Lymphocytes # (Manual) Monocytes # (Manual) PT INR POC ABG pH POC ABG pCO2 30.3 L POC ABG pO2 118 H Sodium Potassium Chloride Carbon Dioxide BUN Creatinine Glucose POC Glucose 110 H 109 H Calcium AST Total Protein Albumin Vancomycin Trough Crossmatch 06/16/17 06/16/17 06/16/17 13:13 15:40 18:18 WBC RBC Hgb Hct RDW Plt Count Lymph % (Auto) [place] % (Auto) Lymph # [place] # Seg Neutrophils % Seg Neuts % (Manual) Lymphocytes % (Manual) Monocytes % (Manual) Seg Neutrophils # Seg Neutrophils # Man Lymphocytes # (Manual) Monocytes # (Manual) PT INR POC ABG pH POC ABG pCO2 POC ABG pO2 Sodium Potassium Chloride Carbon Dioxide BUN Creatinine Glucose POC Glucose 111 H 143 H 109 H Calcium AST Total Protein Albumin Vancomycin Trough Crossmatch 06/16/17 06/16/17 06/16/17 19:08 20:05 21:00 WBC RBC Hgb Hct RDW Plt Count Lymph % (Auto) [place] % (Auto) Lymph # [place] # Seg Neutrophils % Seg Neuts % (Manual) Lymphocytes % (Manual) Monocytes % (Manual) Seg Neutrophils # Seg Neutrophils # Man Lymphocytes # (Manual) Monocytes # (Manual) PT INR POC ABG pH POC ABG pCO2 POC ABG pO2 Sodium Potassium Chloride Carbon Dioxide BUN Creatinine Glucose POC Glucose 107 H 106 H 119 H Calcium AST Total Protein Albumin Vancomycin Trough Crossmatch 06/16/17 06/17/17 06/17/17 22:01 01:04 02:02 WBC RBC Hgb Hct RDW Plt Count Lymph % (Auto) [place] % (Auto) Lymph # [place] # Seg Neutrophils % Seg Neuts % (Manual) Lymphocytes % (Manual) Monocytes % (Manual) Seg Neutrophils # Seg Neutrophils # Man Lymphocytes # (Manual) Monocytes # (Manual) PT INR POC ABG pH POC ABG pCO2 POC ABG pO2 Sodium Potassium Chloride Carbon Dioxide BUN Creatinine Glucose POC Glucose 142 H 106 H 108 H Calcium AST Total Protein Albumin Vancomycin Trough Crossmatch 06/17/17 06/17/17 06/17/17 02:44 03:42 04:40 WBC 16.4 H RBC 3.14 L Hgb 9.4 L Hct 28.5 L RDW 16.0 H Plt Count 107 L Lymph % (Auto) 5.0 L [place] % (Auto) 10.0 H Lymph # 0.8 L [place] # 1.6 H Seg Neutrophils % 84.4 H Seg Neuts % (Manual) Lymphocytes % (Manual) Monocytes % (Manual) Seg Neutrophils # 13.8 H Seg Neutrophils # Man Lymphocytes # (Manual) Monocytes # (Manual) PT INR POC ABG pH POC ABG pCO2 POC ABG pO2 Sodium Potassium Chloride Carbon Dioxide BUN Creatinine Glucose POC Glucose 109 H 113 H Calcium AST Total Protein Albumin Vancomycin Trough Crossmatch 06/17/17 06/17/17 06/17/17 04:40 04:47 05:33 WBC RBC Hgb Hct RDW Plt Count Lymph % (Auto) [place] % (Auto) Lymph # [place] # Seg Neutrophils % Seg Neuts % (Manual) Lymphocytes % (Manual) Monocytes % (Manual) Seg Neutrophils # Seg Neutrophils # Man Lymphocytes # (Manual) Monocytes # (Manual) PT INR POC ABG pH POC ABG pCO2 POC ABG pO2 Sodium 150 H Potassium Chloride 110.8 H Carbon Dioxide 18 L BUN 25 H Creatinine Glucose 107 H POC Glucose 132 H 124 H Calcium 8.1 L AST 47 H Total Protein 5.4 L Albumin 2.3 L Vancomycin Trough Crossmatch 06/17/17 06/17/17 06/17/17 07:19 08:02 08:53 WBC RBC Hgb Hct RDW Plt Count Lymph % (Auto) [place] % (Auto) Lymph # [place] # Seg Neutrophils % Seg Neuts % (Manual) Lymphocytes % (Manual) Monocytes % (Manual) Seg Neutrophils # Seg Neutrophils # Man Lymphocytes # (Manual) Monocytes # (Manual) PT INR POC ABG pH POC ABG pCO2 POC ABG pO2 Sodium Potassium Chloride Carbon Dioxide BUN Creatinine Glucose POC Glucose 115 H 119 H 130 H Calcium AST Total Protein Albumin Vancomycin Trough Crossmatch 06/17/17 06/17/17 06/17/17 10:00 11:05 12:08 WBC RBC Hgb Hct RDW Plt Count Lymph % (Auto) [place] % (Auto) Lymph # [place] # Seg Neutrophils % Seg Neuts % (Manual) Lymphocytes % (Manual) Monocytes % (Manual) Seg Neutrophils # Seg Neutrophils # Man Lymphocytes # (Manual) Monocytes # (Manual) PT INR POC ABG pH POC ABG pCO2 POC ABG pO2 Sodium Potassium Chloride Carbon Dioxide BUN Creatinine Glucose POC Glucose 122 H 131 H 125 H Calcium AST Total Protein Albumin Vancomycin Trough Crossmatch 06/17/17 06/17/17 06/17/17 13:20 14:09 15:13 WBC RBC Hgb Hct RDW Plt Count Lymph % (Auto) [place] % (Auto) Lymph # [place] # Seg Neutrophils % Seg Neuts % (Manual) Lymphocytes % (Manual) Monocytes % (Manual) Seg Neutrophils # Seg Neutrophils # Man Lymphocytes # (Manual) Monocytes # (Manual) PT INR POC ABG pH POC ABG pCO2 POC ABG pO2 Sodium Potassium Chloride Carbon Dioxide BUN Creatinine Glucose POC Glucose 133 H 114 H 137 H Calcium AST Total Protein Albumin Vancomycin Trough Crossmatch 06/17/17 06/17/17 06/17/17 16:09 16:53 17:46 WBC RBC Hgb Hct RDW Plt Count Lymph % (Auto) [place] % (Auto) Lymph # [place] # Seg Neutrophils % Seg Neuts % (Manual) Lymphocytes % (Manual) Monocytes % (Manual) Seg Neutrophils # Seg Neutrophils # Man Lymphocytes # (Manual) Monocytes # (Manual) PT INR POC ABG pH POC ABG pCO2 POC ABG pO2 Sodium Potassium Chloride Carbon Dioxide BUN Creatinine Glucose POC Glucose 120 H 123 H 112 H Calcium AST Total Protein Albumin Vancomycin Trough Crossmatch 06/17/17 06/17/17 06/17/17 20:36 21:04 21:47 WBC RBC Hgb Hct RDW Plt Count Lymph % (Auto) [place] % (Auto) Lymph # [place] # Seg Neutrophils % Seg Neuts % (Manual) Lymphocytes % (Manual) Monocytes % (Manual) Seg Neutrophils # Seg Neutrophils # Man Lymphocytes # (Manual) Monocytes # (Manual) PT INR POC ABG pH POC ABG pCO2 POC ABG pO2 Sodium Potassium Chloride Carbon Dioxide BUN Creatinine Glucose POC Glucose 127 H 144 H 124 H Calcium AST Total Protein Albumin Vancomycin Trough Crossmatch 06/17/17 06/17/17 06/18/17 22:52 23:49 00:48 WBC RBC Hgb Hct RDW Plt Count Lymph % (Auto) [place] % (Auto) Lymph # [place] # Seg Neutrophils % Seg Neuts % (Manual) Lymphocytes % (Manual) Monocytes % (Manual) Seg Neutrophils # Seg Neutrophils # Man Lymphocytes # (Manual) Monocytes # (Manual) PT INR POC ABG pH POC ABG pCO2 POC ABG pO2 Sodium Potassium Chloride Carbon Dioxide BUN Creatinine Glucose POC Glucose 175 H 162 H 139 H Calcium AST Total Protein Albumin Vancomycin Trough Crossmatch 06/18/17 06/18/17 06/18/17 01:57 03:06 04:03 WBC RBC Hgb Hct RDW Plt Count Lymph % (Auto) [place] % (Auto) Lymph # [place] # Seg Neutrophils % Seg Neuts % (Manual) Lymphocytes % (Manual) Monocytes % (Manual) Seg Neutrophils # Seg Neutrophils # Man Lymphocytes # (Manual) Monocytes # (Manual) PT INR POC ABG pH POC ABG pCO2 POC ABG pO2 Sodium Potassium Chloride Carbon Dioxide BUN Creatinine Glucose POC Glucose 146 H 213 H 159 H Calcium AST Total Protein Albumin Vancomycin Trough Crossmatch 06/18/17 06/18/17 06/18/17 04:57 05:00 05:00 WBC 17.1 H RBC 3.52 L Hgb 10.5 L Hct 32.3 L RDW 15.7 H Plt Count 120 L Lymph % (Auto) 6.8 L [place] % (Auto) 9.6 H Lymph # [place] # 1.6 H Seg Neutrophils % 82.8 H Seg Neuts % (Manual) Lymphocytes % (Manual) Monocytes % (Manual) Seg Neutrophils # 14.1 H Seg Neutrophils # Man Lymphocytes # (Manual) Monocytes # (Manual) PT INR POC ABG pH POC ABG pCO2 POC ABG pO2 Sodium 153 H Potassium Chloride 113.4 H Carbon Dioxide 17 L BUN 28 H Creatinine Glucose 150 H POC Glucose 195 H Calcium AST Total Protein 5.6 L Albumin 2.2 L Vancomycin Trough Crossmatch 06/18/17 06/18/17 06/18/17 05:00 05:23 06:23 WBC RBC Hgb Hct RDW Plt Count Lymph % (Auto) [place] % (Auto) Lymph # [place] # Seg Neutrophils % Seg Neuts % (Manual) Lymphocytes % (Manual) Monocytes % (Manual) Seg Neutrophils # Seg Neutrophils # Man Lymphocytes # (Manual) Monocytes # (Manual) PT INR POC ABG pH POC ABG pCO2 POC ABG pO2 Sodium Potassium Chloride Carbon Dioxide BUN Creatinine Glucose POC Glucose 204 H 159 H Calcium AST Total Protein Albumin Vancomycin Trough 29.4 H Crossmatch 06/18/17 06/18/17 06/18/17 08:06 09:02 11:01 WBC RBC Hgb Hct RDW Plt Count Lymph % (Auto) [place] % (Auto) Lymph # [place] # Seg Neutrophils % Seg Neuts % (Manual) Lymphocytes % (Manual) Monocytes % (Manual) Seg Neutrophils # Seg Neutrophils # Man Lymphocytes # (Manual) Monocytes # (Manual) PT INR POC ABG pH POC ABG pCO2 POC ABG pO2 Sodium Potassium Chloride Carbon Dioxide BUN Creatinine Glucose POC Glucose 120 H 119 H 128 H Calcium AST Total Protein Albumin Vancomycin Trough Crossmatch 06/18/17 06/18/17 06/18/17 11:57 13:04 13:58 WBC RBC Hgb Hct RDW Plt Count Lymph % (Auto) [place] % (Auto) Lymph # [place] # Seg Neutrophils % Seg Neuts % (Manual) Lymphocytes % (Manual) Monocytes % (Manual) Seg Neutrophils # Seg Neutrophils # Man Lymphocytes # (Manual) Monocytes # (Manual) PT INR POC ABG pH POC ABG pCO2 POC ABG pO2 Sodium Potassium Chloride Carbon Dioxide BUN Creatinine Glucose POC Glucose 118 H 127 H 148 H Calcium AST Total Protein Albumin Vancomycin Trough Crossmatch 06/18/17 06/18/17 06/18/17 14:50 16:16 18:00 WBC RBC Hgb Hct RDW Plt Count Lymph % (Auto) [place] % (Auto) Lymph # [place] # Seg Neutrophils % Seg Neuts % (Manual) Lymphocytes % (Manual) Monocytes % (Manual) Seg Neutrophils # Seg Neutrophils # Man Lymphocytes # (Manual) Monocytes # (Manual) PT INR POC ABG pH POC ABG pCO2 POC ABG pO2 Sodium Potassium Chloride Carbon Dioxide BUN Creatinine Glucose POC Glucose 113 H 123 H Calcium AST Total Protein Albumin Vancomycin Trough 21.7 H Crossmatch 06/18/17 06/18/17 06/18/17 18:01 18:59 20:11 WBC RBC Hgb Hct RDW Plt Count Lymph % (Auto) [place] % (Auto) Lymph # [place] # Seg Neutrophils % Seg Neuts % (Manual) Lymphocytes % (Manual) Monocytes % (Manual) Seg Neutrophils # Seg Neutrophils # Man Lymphocytes # (Manual) Monocytes # (Manual) PT INR POC ABG pH POC ABG pCO2 POC ABG pO2 Sodium Potassium Chloride Carbon Dioxide BUN Creatinine Glucose POC Glucose 125 H 128 H 108 H Calcium AST Total Protein Albumin Vancomycin Trough Crossmatch 06/18/17 06/18/17 06/18/17 21:21 22:22 23:04 WBC RBC Hgb Hct RDW Plt Count Lymph % (Auto) [place] % (Auto) Lymph # [place] # Seg Neutrophils % Seg Neuts % (Manual) Lymphocytes % (Manual) Monocytes % (Manual) Seg Neutrophils # Seg Neutrophils # Man Lymphocytes # (Manual) Monocytes # (Manual) PT INR POC ABG pH POC ABG pCO2 POC ABG pO2 Sodium Potassium Chloride Carbon Dioxide BUN Creatinine Glucose POC Glucose 107 H 118 H 171 H Calcium AST Total Protein Albumin Vancomycin Trough Crossmatch 06/19/17 06/19/17 06/19/17 00:43 01:29 02:06 WBC RBC Hgb Hct RDW Plt Count Lymph % (Auto) [place] % (Auto) Lymph # [place] # Seg Neutrophils % Seg Neuts % (Manual) Lymphocytes % (Manual) Monocytes % (Manual) Seg Neutrophils # Seg Neutrophils # Man Lymphocytes # (Manual) Monocytes # (Manual) PT INR POC ABG pH POC ABG pCO2 POC ABG pO2 Sodium Potassium Chloride Carbon Dioxide BUN Creatinine Glucose POC Glucose 141 H 124 H 137 H Calcium AST Total Protein Albumin Vancomycin Trough Crossmatch 06/19/17 06/19/17 06/19/17 03:01 04:37 05:51 WBC RBC Hgb Hct RDW Plt Count Lymph % (Auto) [place] % (Auto) Lymph # [place] # Seg Neutrophils % Seg Neuts % (Manual) Lymphocytes % (Manual) Monocytes % (Manual) Seg Neutrophils # Seg Neutrophils # Man Lymphocytes # (Manual) Monocytes # (Manual) PT INR POC ABG pH POC ABG pCO2 POC ABG pO2 Sodium Potassium Chloride Carbon Dioxide BUN Creatinine Glucose POC Glucose 135 H 126 H 132 H Calcium AST Total Protein Albumin Vancomycin Trough Crossmatch 06/19/17 06/19/17 06/19/17 06:50 06:50 07:59 WBC 14.5 H RBC 3.44 L Hgb 10.2 L Hct 30.6 L RDW 15.4 H Plt Count 139 L Lymph % (Auto) 8.2 L [place] % (Auto) 10.5 H Lymph # [place] # 1.5 H Seg Neutrophils % 79.8 H Seg Neuts % (Manual) Lymphocytes % (Manual) Monocytes % (Manual) Seg Neutrophils # 11.5 H Seg Neutrophils # Man Lymphocytes # (Manual) Monocytes # (Manual) PT INR POC ABG pH POC ABG pCO2 POC ABG pO2 Sodium 154 H Potassium Chloride 115.0 H Carbon Dioxide BUN 24 H Creatinine Glucose 106 H POC Glucose 132 H Calcium 7.8 L AST Total Protein 4.9 L Albumin 2.3 L Vancomycin Trough Crossmatch 06/19/17 06/19/17 06/19/17 09:06 10:05 11:52 WBC RBC Hgb Hct RDW Plt Count Lymph % (Auto) [place] % (Auto) Lymph # [place] # Seg Neutrophils % Seg Neuts % (Manual) Lymphocytes % (Manual) Monocytes % (Manual) Seg Neutrophils # Seg Neutrophils # Man Lymphocytes # (Manual) Monocytes # (Manual) PT INR POC ABG pH POC ABG pCO2 POC ABG pO2 Sodium Potassium Chloride Carbon Dioxide BUN Creatinine Glucose POC Glucose 124 H 124 H 157 H Calcium AST Total Protein Albumin Vancomycin Trough Crossmatch 06/19/17 06/19/17 06/19/17 13:37 14:09 16:07 WBC RBC Hgb Hct RDW Plt Count Lymph % (Auto) [place] % (Auto) Lymph # [place] # Seg Neutrophils % Seg Neuts % (Manual) Lymphocytes % (Manual) Monocytes % (Manual) Seg Neutrophils # Seg Neutrophils # Man Lymphocytes # (Manual) Monocytes # (Manual) PT INR POC ABG pH POC ABG pCO2 POC ABG pO2 Sodium Potassium Chloride Carbon Dioxide BUN Creatinine Glucose POC Glucose 143 H 143 H 183 H Calcium AST Total Protein Albumin Vancomycin Trough Crossmatch 06/19/17 06/20/17 06/20/17 17:32 02:02 03:12 WBC RBC Hgb Hct RDW Plt Count Lymph % (Auto) [place] % (Auto) Lymph # [place] # Seg Neutrophils % Seg Neuts % (Manual) Lymphocytes % (Manual) Monocytes % (Manual) Seg Neutrophils # Seg Neutrophils # Man Lymphocytes # (Manual) Monocytes # (Manual) PT INR POC ABG pH POC ABG pCO2 POC ABG pO2 Sodium Potassium Chloride Carbon Dioxide BUN Creatinine Glucose POC Glucose 132 H 62 L 120 H Calcium AST Total Protein Albumin Vancomycin Trough Crossmatch 06/20/17 06/20/17 06/20/17 04:00 04:00 04:01 WBC 15.0 H RBC 3.21 L Hgb 9.6 L Hct 28.7 L RDW Plt Count Lymph % (Auto) 7.0 L [place] % (Auto) 10.9 H Lymph # 1.1 L [place] # 1.6 H Seg Neutrophils % 81.2 H Seg Neuts % (Manual) Lymphocytes % (Manual) Monocytes % (Manual) Seg Neutrophils # 12.2 H Seg Neutrophils # Man Lymphocytes # (Manual) Monocytes # (Manual) PT INR POC ABG pH POC ABG pCO2 POC ABG pO2 Sodium Potassium Chloride Carbon Dioxide BUN 21 H Creatinine Glucose 172 H POC Glucose 151 H Calcium 7.4 L AST Total Protein 4.9 L Albumin 2.0 L Vancomycin Trough Crossmatch 06/20/17 06/20/17 05:50 08:14 WBC RBC Hgb Hct RDW Plt Count Lymph % (Auto) [place] % (Auto) Lymph # [place] # Seg Neutrophils % Seg Neuts % (Manual) Lymphocytes % (Manual) Monocytes % (Manual) Seg Neutrophils # Seg Neutrophils # Man Lymphocytes # (Manual) Monocytes # (Manual) PT INR POC ABG pH POC ABG pCO2 POC ABG pO2 Sodium Potassium Chloride Carbon Dioxide BUN Creatinine Glucose POC Glucose 190 H 142 H Calcium AST Total Protein Albumin Vancomycin Trough Crossmatch Chest x-ray: report reviewed, image reviewed
[2017-06-20] MEDS: DILAUDID IV PRN (16:53)
[2017-06-20] MEDS: NORCO 5/325 PO PRN (21:27)
[2017-06-21] MEDS: MERREM 1,000 MG in NACL 0.9% 100 ML IV SCH ×3 (00:26→16:28)
[2017-06-21] MEDS: NOVOLOG SUB-Q SCH ×4 (00:27→18:19)
[2017-06-21] MEDS: D5W 1,000 ML IV SCH (01:21)
[2017-06-21] MEDS: CARDIZEM PO SCH ×3 (03:49→20:13)
[2017-06-21 05:38] LABS: Basophils % (Auto) 0.1 % (0.0-1.8); Eosinophils % (Auto) 0.9 % (0.0-4.3); Hematocrit 28.8 % (35.5-45.6); Hemoglobin 9.6 gm/dl (11.8-15.2); Mean Corpuscular HGB Conc 33 % (32-34); Mean Corpuscular Hemoglobin 30 pg (28-32); Mean Corpuscular Volume 89 fl (84-94); Platelet Count 168 K/mm3 (140-440); Red Blood Count 3.24 M/mm3 (3.65-5.03); Red Cell Distribution Width 15.1 % (13.2-15.2)
[2017-06-21 06:07] LABS: Alanine Aminotransferase 19 units/L (7-56); Albumin 2.2 g/dL (3.9-5); Albumin/Globulin Ratio 0.7 %; Alkaline Phosphatase 65 units/L (35-129); Anion Gap 16 mmol/L; Blood Urea Nitrogen 22 mg/dL (9-20); Calcium 7.7 mg/dL (8.4-10.2); Carbon Dioxide 27 mmol/L (22-30); Chloride 101.7 mmol/L (98-107); Glucose 235 mg/dL (75-100); Potassium 3.7 mmol/L (3.6-5.0); Sodium 141 mmol/L (137-145); Total Protein 5.4 g/dL (6.3-8.2)
--- NOTE | 2017-06-21 07:27 | XRay Report ---
Single view chest: Compared to 06/20/17. History: Followup of respiratory failure. Findings: Marked cardiomegaly. Stable support system. Mild pulmonary venous congestion. No consolidation no pleural effusion. No significant interval change. Impression: No significant interval change.
--- NOTE | 2017-06-21 09:08 | Progress Note ---
Assessment and Plan - Patient Problems (1) Sepsis Current Visit: Yes Status: Acute Qualifiers: Sepsis type: sepsis due to unspecified organism Qualified Code(s): A41.9 - Sepsis, unspecified organism Plan to address problem: Continue Meropenem with plan as previously noted. Await disposition plans as Ertapenem may be a more convenient option over Meropenem. (2) PAD (peripheral artery disease) Onset Date: 08/22/16 Current Visit: No Status: Chronic Plan to address problem: Await further vascular surgical plans. Continue antibiotic coverage of wounds for now. Subjective Date of service: 06/21/17 Principal diagnosis: Septic shock, PAD s/p left limb salvage procedures Interval history: Remains in ICU. Stable and afebrile overnight. Objective - Constitutional Vitals: Vital Signs Temp Pulse Resp BP Pulse Ox 97.8 F 103 H 18 116/67 97 06/21/17 08:00 06/21/17 07:00 06/21/17 07:00 06/21/17 07:00 06/21/17 04:00 Temperature -Last 24 Hours Temperature 97.8 F Temperature 99.4 F Temperature 99.9 F Temperature 100.1 F Temperature 99.5 F General appearance: Present: no acute distress, well-nourished - EENT ENT: other (Dobhoff in place) - Respiratory Respiratory effort: normal Respiratory: bilateral: CTA - Cardiovascular Rhythm: irregularly irregular Extremity abnormal: edema (unchanged left foot stump, wound vac at left groin with seropurulent output) - Gastrointestinal General gastrointestinal: Present: soft, non-distended - Genitourinary Male genitourinary: normal ([place] with yellow urine) - Integumentary Integumentary: clear, no rash - Neurologic Neurologic: no focal deficits - Labs CBC & Chem 7: 06/21/17 05:10 06/21/17 05:10 Labs: Abnormal lab results 06/20/17 06/20/17 06/20/17 Range/Units 08:14 11:28 14:13 WBC (4.5-11.0) K/mm3 RBC (3.65-5.03) M/mm3 Hgb (11.8-15.2) gm/dl Hct (35.5-45.6) % Lymph % (Auto) (13.4-35.0) % [place] % (Auto) (0.0-7.3) % [place] # (0.0-0.8) K/mm3 Seg Neutrophils % (40.0-70.0) % Seg Neutrophils # (1.8-7.7) K/mm3 BUN (9-20) mg/dL Glucose (75-100) mg/dL POC Glucose 142 H 115 H 145 H (70-105) Calcium (8.4-10.2) mg/dL Total Protein (6.3-8.2) g/dL Albumin (3.9-5) g/dL 06/20/17 06/21/17 06/21/17 Range/Units 17:42 00:12 05:10 WBC 14.0 H (4.5-11.0) K/mm3 RBC 3.24 L (3.65-5.03) M/mm3 Hgb 9.6 L (11.8-15.2) gm/dl Hct 28.8 L (35.5-45.6) % Lymph % (Auto) 9.4 L (13.4-35.0) % [place] % (Auto) 13.5 H (0.0-7.3) % [place] # 1.9 H (0.0-0.8) K/mm3 Seg Neutrophils % 76.1 H (40.0-70.0) % Seg Neutrophils # 10.7 H (1.8-7.7) K/mm3 BUN (9-20) mg/dL Glucose (75-100) mg/dL POC Glucose 272 H 327 H (70-105) Calcium (8.4-10.2) mg/dL Total Protein (6.3-8.2) g/dL Albumin (3.9-5) g/dL 06/21/17 06/21/17 Range/Units 05:10 05:30 WBC (4.5-11.0) K/mm3 RBC (3.65-5.03) M/mm3 Hgb (11.8-15.2) gm/dl Hct (35.5-45.6) % Lymph % (Auto) (13.4-35.0) % [place] % (Auto) (0.0-7.3) % [place] # (0.0-0.8) K/mm3 Seg Neutrophils % (40.0-70.0) % Seg Neutrophils # (1.8-7.7) K/mm3 BUN 22 H (9-20) mg/dL Glucose 235 H (75-100) mg/dL POC Glucose 226 H (70-105) Calcium 7.7 L (8.4-10.2) mg/dL Total Protein 5.4 L (6.3-8.2) g/dL Albumin 2.2 L (3.9-5) g/dL Microbiology 06/14/17 Unknown Leg - Left Anaerobic Culture - Final Bacteroides Distasonis Bacteroides Distasonis#2 06/14/17 Unknown Leg - Left Surgical Biopsy Culture - Final Escherichia Coli Klebsiella Pneumoniae 06/14/17 Unknown Leg - Left Surgical Culture - Final Escherichia Coli Klebsiella Pneumoniae 06/12/17 19:35 Peripheral/Venous Blood Culture - Final NO GROWTH AFTER 5 DAYS 06/12/17 18:17 Peripheral/Venous Blood Culture - Final NO GROWTH AFTER 5 DAYS 06/14/17 Unknown Tracheal Aspirate Sputum Culture - Final 06/12/17 19:11 Urine,Catheterized - Cytoscopic/Bilateral Urine Culture - Final NO GROWTH AFTER 48 HOURS
[2017-06-21] MEDS: PEPCID PO SCH ×2 (09:49→22:21)
[2017-06-21] MEDS: DILAUDID IV PRN ×2 (09:49→16:28)
[2017-06-21] MEDS ORDERED: NACL 0.9% 1,000 ML IR ONE (09:54)
[2017-06-21] MEDS ORDERED: NACL 0.9% IR ONE (10:23)
--- NOTE | 2017-06-21 11:12 | Progress Note ---
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 Continue wound care and antibiotics as per ID Subjective Date of service: 06/21/17 Principal diagnosis: Septic shock, PAD s/p left limb salvage procedures Interval history: Patient still has confusion, but awake. on tube feeds, D5w at 75cc, blood pressure WNL left leg wounds continue to deteriorate. No purulence noted Objective - Constitutional Vitals: Vital Signs - 12hr 06/21/17 06/21/17 06/21/17 00:00 00:01 01:01 Temperature 99.9 F H Pulse Rate 95 H 100 H Pulse Rate [ 99 H From Monitor] Respiratory 18 22 18 Rate Blood Pressure 120/68 114/69 O2 Sat by Pulse 99 98 100 Oximetry 06/21/17 06/21/17 06/21/17 02:00 03:00 03:49 Temperature Pulse Rate 100 H 102 H 98 H Pulse Rate [ From Monitor] Respiratory 22 20 Rate Blood Pressure 119/75 121/73 121/73 O2 Sat by Pulse 99 100 Oximetry 06/21/17 06/21/17 06/21/17 04:00 05:00 06:00 Temperature 99.4 F Pulse Rate 100 H 99 H 95 H Pulse Rate [ 79 From Monitor] Respiratory 21 21 20 Rate Blood Pressure 117/70 117/70 116/67 O2 Sat by Pulse 97 Oximetry 06/21/17 06/21/17 06/21/17 07:00 08:00 09:00 Temperature 97.8 F Pulse Rate 103 H 102 H 96 H Pulse Rate [ 98 H From Monitor] Respiratory 18 20 19 Rate Blood Pressure 116/67 117/79 113/62 O2 Sat by Pulse 98 Oximetry 06/21/17 06/21/17 10:00 10:20 Temperature Pulse Rate 100 H 99 H Pulse Rate [ From Monitor] Respiratory 16 Rate Blood Pressure 126/71 126/71 O2 Sat by Pulse Oximetry Extremity abnormal: other - Labs CBC & Chem 7: 06/21/17 05:10 06/21/17 05:10 Labs: Abnormal lab results 06/20/17 06/20/17 06/20/17 Range/Units 11:28 14:13 17:42 WBC (4.5-11.0) K/mm3 RBC (3.65-5.03) M/mm3 Hgb (11.8-15.2) gm/dl Hct (35.5-45.6) % Lymph % (Auto) (13.4-35.0) % [place] % (Auto) (0.0-7.3) % [place] # (0.0-0.8) K/mm3 Seg Neutrophils % (40.0-70.0) % Seg Neutrophils # (1.8-7.7) K/mm3 BUN (9-20) mg/dL Glucose (75-100) mg/dL POC Glucose 115 H 145 H 272 H (70-105) Calcium (8.4-10.2) mg/dL Total Protein (6.3-8.2) g/dL Albumin (3.9-5) g/dL 06/21/17 06/21/17 06/21/17 Range/Units 00:12 05:10 05:10 WBC 14.0 H (4.5-11.0) K/mm3 RBC 3.24 L (3.65-5.03) M/mm3 Hgb 9.6 L (11.8-15.2) gm/dl Hct 28.8 L (35.5-45.6) % Lymph % (Auto) 9.4 L (13.4-35.0) % [place] % (Auto) 13.5 H (0.0-7.3) % [place] # 1.9 H (0.0-0.8) K/mm3 Seg Neutrophils % 76.1 H (40.0-70.0) % Seg Neutrophils # 10.7 H (1.8-7.7) K/mm3 BUN 22 H (9-20) mg/dL Glucose 235 H (75-100) mg/dL POC Glucose 327 H (70-105) Calcium 7.7 L (8.4-10.2) mg/dL Total Protein 5.4 L (6.3-8.2) g/dL Albumin 2.2 L (3.9-5) g/dL 06/21/17 Range/Units 05:30 WBC (4.5-11.0) K/mm3 RBC (3.65-5.03) M/mm3 Hgb (11.8-15.2) gm/dl Hct (35.5-45.6) % Lymph % (Auto) (13.4-35.0) % [place] % (Auto) (0.0-7.3) % [place] # (0.0-0.8) K/mm3 Seg Neutrophils % (40.0-70.0) % Seg Neutrophils # (1.8-7.7) K/mm3 BUN (9-20) mg/dL Glucose (75-100) mg/dL POC Glucose 226 H (70-105) Calcium (8.4-10.2) mg/dL Total Protein (6.3-8.2) g/dL Albumin (3.9-5) g/dL
--- NOTE | 2017-06-21 12:10 | Progress Note ---
Assessment and Plan Septic shock Infected hematoma of the left femoral; hematoma and infected left femoral tibial graft s/p revision of the same 06/14/17 Acute blood loss anemia requiring blood transfusion Hyponatremia PVD/PAD status post recent multiple vascular surgeries Hx of CAD s/p CABG fixed inferior and inferolateral wall defect consistent with prior [place] but no reversible ischemia on MPI 05/2017 Ischemic cardiomyopathy ejection fraction 40-45% on echocardiogram 05/2017 Hypertension Diabetes Hyperlipidemia Multifocal atrial tachycardia on tele on diltiazem for suppression DNR status Conservative cardiac management. Subjective Date of service: 06/21/17 Principal diagnosis: Septic shock, PAD s/p left limb salvage procedures Interval history: Patient alert with eyes open. He denies chest pain and shortness of breath. Objective Vital Signs Temp Pulse Pulse Resp BP Pulse Ox 06/21/17 11:00 104 H 22 126/75 100 06/21/17 10:20 99 H 126/71 06/21/17 10:00 100 H 16 126/71 06/21/17 09:00 96 H 19 113/62 06/21/17 08:00 97.8 F 102 H 98 H 20 117/79 98 06/21/17 07:00 103 H 18 116/67 06/21/17 06:00 95 H 20 116/67 06/21/17 05:00 99 H 21 117/70 06/21/17 04:00 99.4 F 100 H 79 21 117/70 97 06/21/17 03:49 98 H 121/73 06/21/17 03:00 102 H 20 121/73 100 06/21/17 02:00 100 H 22 119/75 99 06/21/17 01:01 100 H 18 114/69 100 06/21/17 00:01 95 H 22 120/68 98 06/21/17 00:00 99.9 F H 99 H 18 99 06/20/17 23:01 102 H 19 110/60 99 06/20/17 22:10 97 06/20/17 22:00 102 H 19 110/60 99 06/20/17 21:39 102 H 20 113/62 100 06/20/17 21:00 102 H 22 113/62 93 06/20/17 20:54 104 H 109/61 06/20/17 20:00 100.1 F H 104 H 79 25 H 109/63 100 06/20/17 19:00 100 H 20 116/67 100 06/20/17 18:00 111 H 20 126/73 100 06/20/17 17:00 101 H 24 114/66 97 06/20/17 16:01 108 H 19 113/62 98 06/20/17 15:00 106 H 24 119/65 100 06/20/17 14:00 90 22 113/67 97 06/20/17 13:00 100 H 24 113/68 99 - Physical Examination General: No Apparent Distress Cardiac: Positive: Tachycardia - Labs and Meds Cardiac Enzymes 06/21/17 Range/Units 05:10 AST 16 (5-40) units/L CBC 06/21/17 Range/Units 05:10 WBC 14.0 H (4.5-11.0) K/mm3 RBC 3.24 L (3.65-5.03) M/mm3 Hgb 9.6 L (11.8-15.2) gm/dl Hct 28.8 L (35.5-45.6) % Plt Count 168 (140-440) K/mm3 Lymph # 1.3 (1.2-5.4) K/mm3 [place] # 1.9 H (0.0-0.8) K/mm3 Eos # 0.1 (0.0-0.4) K/mm3 Baso # 0.0 (0.0-0.1) K/mm3 Comprehensive Metabolic Panel 06/21/17 Range/Units 05:10 Sodium 141 (137-145) mmol/L Potassium 3.7 (3.6-5.0) mmol/L Chloride 101.7 (98-107) mmol/L Carbon Dioxide 27 (22-30) mmol/L BUN 22 H (9-20) mg/dL Creatinine 0.8 (0.8-1.5) mg/dL Glucose 235 H (75-100) mg/dL Calcium 7.7 L (8.4-10.2) mg/dL AST 16 (5-40) units/L ALT 19 (7-56) units/L Alkaline Phosphatase 65 (35-129) units/L Total Protein 5.4 L (6.3-8.2) g/dL Albumin 2.2 L (3.9-5) g/dL - Imaging and Cardiology EKG: report reviewed (mild volume overload)
--- NOTE | 2017-06-21 12:53 | Progress Note ---
Assessment and Plan Imp: 1. Acute respiratory failure 2. Sepsis/shock 3. Infected hematoma/acute blood loss anemia 4. PAD 5. AMEYA 6. Hypernatremia 7. Metabolic/toxic encephalopathy Rec: 1. CT head neg for obvious acute process 2. Cont. free water; stop D5W since sodium now normal and he is hyperglycemic; cont. SSI but increase to moderate dose 3. TFs per nutrition recs; ST evaluation of swallow -> NPO recommended and can re-assess at some point 4. ABX per ID 5. F/u vascular recs -> needs AKA; he is stable pulmonary-cervantes to undergo this 6. Wound care 7. PT/OT consults 8. On Cardizem PO for MAT per cards 9. Keep in ICU another 24 hours 10. Complex patient No family present today Subjective Date of service: 06/21/17 Principal diagnosis: Septic shock, PAD s/p left limb salvage procedures Interval history: No events. On nasal cannula. Less confused. Oriented to person/date. No SOB, pain, other complaints currently. Remains tachycardic. Active Medications Acetaminophen (Tylenol) 650 mg IN Q4H PRN PRN Reason: Pain, Mild (1-3) Last Admin: 06/16/17 07:34 Dose: 650 mg Acetaminophen (Tylenol) 650 mg PO Q4H PRN PRN Reason: For Pain/Fever/Headache Last Admin: 06/19/17 04:46 Dose: 650 mg Acetaminophen/Hydrocodone Bitart ([place] 5/325) 2 each PO Q6H PRN PRN Reason: Pain, Moderate (4-6) Last Admin: 06/20/17 21:27 Dose: 2 each Lipase/Protease/Amylase (Pancreaze Dr 10,500 Unit) 1 each FEEDTUBE PRN PRN PRN Reason: For Clogged Feeding Tube Dextrose (D50w (25gm)) 50 ml IV PRN PRN PRN Reason: Hypoglycemia Diltiazem HCl (Cardizem) 30 mg PO Q8H [facility] Last Admin: 06/21/17 10:20 Dose: 30 mg Famotidine (Pepcid) 20 mg PO BID [facility] Last Admin: 06/21/17 09:49 Dose: 20 mg Hydromorphone HCl (Dilaudid) 0.5 mg IV Q4H PRN PRN Reason: Pain , Severe (7-10) Last Admin: 06/21/17 09:49 Dose: 0.5 mg Hydrophilic Ointment (Vaseline Lip Therapy) 1 applic TP Q2HR PRN PRN Reason: Dry Lips Meropenem 1,000 mg/ Sodium (Chloride) 100 mls @ 100 mls/hr IV Q8H [facility]Z PRN Reason: Protocol Last Admin: 06/21/17 09:48 Dose: 100 mls/hr Insulin Aspart (Novolog) 0 units SUB-Q Q6HR [facility]Z PRN Reason: Protocol Last Admin: 06/21/17 12:12 Dose: 4 units Multi-Ingred Cream/Lotion/Oil/Oint (Artificial Tears Ophth Oint) 1 applic OU Q4HR PRN PRN Reason: Dry Eye(s) Naloxone HCl (Narcan 0.4 Mg/1 Ml) 0.1 mg IV Q2MIN PRN PRN Reason: Res Rate </= 8 or 02 SAT < 92% Ondansetron HCl (Zofran) 4 mg IV Q6H PRN PRN Reason: Nausea And Vomiting Simple Syrup (Simple Syrup) 15 ml FEEDTUBE PRN PRN PRN Reason: Hypoglycemia Simple Syrup (Simple Syrup) 30 ml FEEDTUBE PRN PRN PRN Reason: Hypoglycemia Sodium Bicarbonate (Sodium Bicarbonate) 325 mg FEEDTUBE PRN PRN PRN Reason: For Clogged Feeding Tube Objective Vital Signs - 12hr 06/21/17 06/21/17 06/21/17 01:01 02:00 03:00 Temperature Pulse Rate 100 H 100 H 102 H Pulse Rate [ From Monitor] Respiratory 18 22 20 Rate Blood Pressure 114/69 119/75 121/73 O2 Sat by Pulse 100 99 100 Oximetry 06/21/17 06/21/17 06/21/17 03:49 04:00 05:00 Temperature 99.4 F Pulse Rate 98 H 100 H 99 H Pulse Rate [ 79 From Monitor] Respiratory 21 21 Rate Blood Pressure 121/73 117/70 117/70 O2 Sat by Pulse 97 Oximetry 06/21/17 06/21/17 06/21/17 06:00 07:00 08:00 Temperature 97.8 F Pulse Rate 95 H 103 H 102 H Pulse Rate [ 98 H From Monitor] Respiratory 20 18 20 Rate Blood Pressure 116/67 116/67 117/79 O2 Sat by Pulse 98 Oximetry 06/21/17 06/21/17 06/21/17 09:00 10:00 10:20 Temperature Pulse Rate 96 H 100 H 99 H Pulse Rate [ From Monitor] Respiratory 19 16 Rate Blood Pressure 113/62 126/71 126/71 O2 Sat by Pulse Oximetry 06/21/17 06/21/17 11:00 12:00 Temperature Pulse Rate 104 H 99 H Pulse Rate [ From Monitor] Respiratory 22 18 Rate Blood Pressure 126/75 115/69 O2 Sat by Pulse 100 92 Oximetry Constitutional: alert Eyes: non-icteric Neck: supple Effort: normal Ascultation: Bilateral: clear Percussion: Bilateral: not dull Cardiovascular: regular rate and rhythm (no mrg) Gastrointestinal: normoactive bowel sounds, soft, non-tender, non-distended Extremities: no cyanosis, edema (1+ bilateral LE edema), other (wound vacs in place on left) Neurologic: normal mental status (mildly confused), non-focal exam (? weakness RUE) Psychiatric: mood appropriate, affect normal CBC and BMP: 06/21/17 05:10 06/21/17 05:10 ABG, PT/INR, D-dimer: ABG POC ABG pH 7.424 (7.35-7.45) 06/16/17 11:28 POC ABG pCO2 30.3 (35-45) L 06/16/17 11:28 POC ABG pO2 118 (80-105) H 06/16/17 11:28 POC ABG HCO3 19.8 06/16/17 11:28 POC ABG Total CO2 21 06/16/17 11:28 POC ABG O2 Sat 99 06/16/17 11:28 PT/INR, D-dimer PT 15.9 Sec. (12.2-14.9) H 06/14/17 07:42 INR 1.28 (0.87-1.13) H 06/14/17 07:42 Abnormal lab findings: Abnormal Labs 06/13/17 06/13/17 06/13/17 00:18 05:20 10:28 WBC RBC Hgb 6.3 L 7.1 L Hct 19.6 L* 22.1 L RDW Plt Count Lymph % (Auto) [place] % (Auto) Lymph # [place] # Seg Neutrophils % Seg Neuts % (Manual) Lymphocytes % (Manual) Monocytes % (Manual) Seg Neutrophils # Seg Neutrophils # Man Lymphocytes # (Manual) Monocytes # (Manual) PT INR POC ABG pH POC ABG pCO2 POC ABG pO2 Sodium Potassium Chloride Carbon Dioxide BUN Creatinine Glucose POC Glucose 289 H Calcium AST Total Protein Albumin Vancomycin Trough Crossmatch 06/13/17 06/13/17 06/13/17 12:00 16:20 18:45 WBC RBC Hgb 9.9 L 8.8 L Hct 28.8 L D 26.5 L RDW Plt Count Lymph % (Auto) [place] % (Auto) Lymph # [place] # Seg Neutrophils % Seg Neuts % (Manual) Lymphocytes % (Manual) Monocytes % (Manual) Seg Neutrophils # Seg Neutrophils # Man Lymphocytes # (Manual) Monocytes # (Manual) PT INR POC ABG pH POC ABG pCO2 POC ABG pO2 Sodium Potassium Chloride Carbon Dioxide BUN Creatinine Glucose POC Glucose 292 H Calcium AST Total Protein Albumin Vancomycin Trough Crossmatch 06/13/17 06/13/17 06/13/17 18:49 21:13 Unknown WBC RBC Hgb 9.3 L Hct 27.8 L RDW Plt Count Lymph % (Auto) [place] % (Auto) Lymph # [place] # Seg Neutrophils % Seg Neuts % (Manual) Lymphocytes % (Manual) Monocytes % (Manual) Seg Neutrophils # Seg Neutrophils # Man Lymphocytes # (Manual) Monocytes # (Manual) PT INR POC ABG pH POC ABG pCO2 POC ABG pO2 Sodium Potassium Chloride Carbon Dioxide BUN Creatinine Glucose POC Glucose 252 H 234 H Calcium AST Total Protein Albumin Vancomycin Trough Crossmatch 06/14/17 06/14/17 06/14/17 00:24 01:53 04:44 WBC RBC Hgb 8.5 L 8.2 L Hct 25.7 L 25.1 L RDW Plt Count Lymph % (Auto) [place] % (Auto) Lymph # [place] # Seg Neutrophils % Seg Neuts % (Manual) Lymphocytes % (Manual) Monocytes % (Manual) Seg Neutrophils # Seg Neutrophils # Man Lymphocytes # (Manual) Monocytes # (Manual) PT INR POC ABG pH POC ABG pCO2 POC ABG pO2 Sodium Potassium Chloride Carbon Dioxide BUN Creatinine Glucose POC Glucose 213 H Calcium AST Total Protein Albumin Vancomycin Trough Crossmatch 06/14/17 06/14/17 06/14/17 05:49 07:42 07:42 WBC 12.2 H RBC 2.77 L Hgb 8.1 L Hct 25.0 L RDW 15.7 H Plt Count Lymph % (Auto) [place] % (Auto) Lymph # [place] # Seg Neutrophils % Seg Neuts % (Manual) Lymphocytes % (Manual) Monocytes % (Manual) Seg Neutrophils # Seg Neutrophils # Man Lymphocytes # (Manual) Monocytes # (Manual) PT 15.9 H INR 1.28 H POC ABG pH POC ABG pCO2 POC ABG pO2 Sodium Potassium Chloride Carbon Dioxide BUN Creatinine Glucose POC Glucose 218 H Calcium AST Total Protein Albumin Vancomycin Trough Crossmatch 06/14/17 06/14/17 06/14/17 07:42 14:31 16:45 WBC 14.0 H RBC 3.61 L Hgb 10.9 L Hct 32.8 L D RDW 15.8 H Plt Count Lymph % (Auto) [place] % (Auto) Lymph # [place] # Seg Neutrophils % Seg Neuts % (Manual) Lymphocytes % (Manual) Monocytes % (Manual) Seg Neutrophils # Seg Neutrophils # Man Lymphocytes # (Manual) Monocytes # (Manual) PT INR POC ABG pH POC ABG pCO2 POC ABG pO2 Sodium 146 H D Potassium Chloride 110.2 H Carbon Dioxide 15 L D BUN 25 H Creatinine Glucose 185 H POC Glucose 235 H Calcium 8.0 L AST Total Protein 5.1 L Albumin 2.0 L Vancomycin Trough Crossmatch 06/14/17 06/14/17 06/14/17 19:34 19:45 19:45 WBC 13.1 H RBC 3.33 L Hgb 9.9 L Hct 29.7 L RDW 15.7 H Plt Count 126 L Lymph % (Auto) [place] % (Auto) Lymph # [place] # Seg Neutrophils % Seg Neuts % (Manual) Lymphocytes % (Manual) Monocytes % (Manual) Seg Neutrophils # Seg Neutrophils # Man Lymphocytes # (Manual) Monocytes # (Manual) PT INR POC ABG pH POC ABG pCO2 POC ABG pO2 Sodium 148 H Potassium 5.7 H D Chloride 108.5 H Carbon Dioxide 12 L BUN 29 H Creatinine 1.7 H Glucose 324 H POC Glucose 296 H Calcium 7.9 L AST Total Protein Albumin Vancomycin Trough Crossmatch 06/14/17 06/14/17 06/14/17 20:05 21:53 23:06 WBC RBC Hgb Hct RDW Plt Count Lymph % (Auto) [place] % (Auto) Lymph # [place] # Seg Neutrophils % Seg Neuts % (Manual) Lymphocytes % (Manual) Monocytes % (Manual) Seg Neutrophils # Seg Neutrophils # Man Lymphocytes # (Manual) Monocytes # (Manual) PT INR POC ABG pH 7.241 L 7.298 L POC ABG pCO2 32.3 L 26.8 L POC ABG pO2 550 H 303 H Sodium Potassium Chloride Carbon Dioxide BUN Creatinine Glucose POC Glucose 259 H Calcium AST Total Protein Albumin Vancomycin Trough Crossmatch 06/15/17 06/15/17 06/15/17 02:08 06:00 06:15 WBC RBC Hgb 8.8 L Hct 26.4 L RDW Plt Count Lymph % (Auto) [place] % (Auto) Lymph # [place] # Seg Neutrophils % Seg Neuts % (Manual) Lymphocytes % (Manual) Monocytes % (Manual) Seg Neutrophils # Seg Neutrophils # Man Lymphocytes # (Manual) Monocytes # (Manual) PT INR POC ABG pH POC ABG pCO2 POC ABG pO2 Sodium Potassium Chloride Carbon Dioxide BUN Creatinine Glucose POC Glucose 334 H 233 H Calcium AST Total Protein Albumin Vancomycin Trough Crossmatch 06/15/17 06/15/17 06/15/17 06:15 06:54 09:32 WBC RBC Hgb Hct RDW Plt Count Lymph % (Auto) [place] % (Auto) Lymph # [place] # Seg Neutrophils % Seg Neuts % (Manual) Lymphocytes % (Manual) Monocytes % (Manual) Seg Neutrophils # Seg Neutrophils # Man Lymphocytes # (Manual) Monocytes # (Manual) PT INR POC ABG pH POC ABG pCO2 34.4 L POC ABG pO2 191 H Sodium 151 H Potassium Chloride 114.7 H Carbon Dioxide 18 L BUN 29 H Creatinine 1.8 H Glucose 259 H POC Glucose 229 H Calcium 7.7 L AST Total Protein Albumin Vancomycin Trough Crossmatch 06/15/17 06/15/17 06/15/17 11:35 12:32 13:36 WBC RBC Hgb Hct RDW Plt Count Lymph % (Auto) [place] % (Auto) Lymph # [place] # Seg Neutrophils % Seg Neuts % (Manual) Lymphocytes % (Manual) Monocytes % (Manual) Seg Neutrophils # Seg Neutrophils # Man Lymphocytes # (Manual) Monocytes # (Manual) PT INR POC ABG pH POC ABG pCO2 POC ABG pO2 Sodium Potassium Chloride Carbon Dioxide BUN Creatinine Glucose POC Glucose 202 H 189 H Calcium AST Total Protein Albumin Vancomycin Trough Crossmatch See Detail 06/15/17 06/15/17 06/15/17 14:30 15:32 16:28 WBC RBC Hgb Hct RDW Plt Count Lymph % (Auto) [place] % (Auto) Lymph # [place] # Seg Neutrophils % Seg Neuts % (Manual) Lymphocytes % (Manual) Monocytes % (Manual) Seg Neutrophils # Seg Neutrophils # Man Lymphocytes # (Manual) Monocytes # (Manual) PT INR POC ABG pH POC ABG pCO2 POC ABG pO2 Sodium Potassium Chloride Carbon Dioxide BUN Creatinine Glucose POC Glucose 142 H 106 H 119 H Calcium AST Total Protein Albumin Vancomycin Trough Crossmatch 06/15/17 06/15/17 06/15/17 17:36 19:30 20:51 WBC RBC Hgb Hct RDW Plt Count Lymph % (Auto) [place] % (Auto) Lymph # [place] # Seg Neutrophils % Seg Neuts % (Manual) Lymphocytes % (Manual) Monocytes % (Manual) Seg Neutrophils # Seg Neutrophils # Man Lymphocytes # (Manual) Monocytes # (Manual) PT INR POC ABG pH POC ABG pCO2 POC ABG pO2 Sodium Potassium Chloride Carbon Dioxide BUN Creatinine Glucose POC Glucose 121 H 109 H 112 H Calcium AST Total Protein Albumin Vancomycin Trough Crossmatch 06/15/17 06/15/17 06/16/17 21:42 23:27 01:11 WBC RBC Hgb Hct RDW Plt Count Lymph % (Auto) [place] % (Auto) Lymph # [place] # Seg Neutrophils % Seg Neuts % (Manual) Lymphocytes % (Manual) Monocytes % (Manual) Seg Neutrophils # Seg Neutrophils # Man Lymphocytes # (Manual) Monocytes # (Manual) PT INR POC ABG pH POC ABG pCO2 POC ABG pO2 Sodium Potassium Chloride Carbon Dioxide BUN Creatinine Glucose POC Glucose 122 H 142 H 162 H Calcium AST Total Protein Albumin Vancomycin Trough Crossmatch 06/16/17 06/16/17 06/16/17 02:03 02:57 04:05 WBC RBC Hgb Hct RDW Plt Count Lymph % (Auto) [place] % (Auto) Lymph # [place] # Seg Neutrophils % Seg Neuts % (Manual) Lymphocytes % (Manual) Monocytes % (Manual) Seg Neutrophils # Seg Neutrophils # Man Lymphocytes # (Manual) Monocytes # (Manual) PT INR POC ABG pH POC ABG pCO2 POC ABG pO2 Sodium Potassium Chloride Carbon Dioxide BUN Creatinine Glucose POC Glucose 117 H 106 H 108 H Calcium AST Total Protein Albumin Vancomycin Trough Crossmatch 06/16/17 06/16/17 06/16/17 05:09 05:23 06:03 WBC RBC Hgb Hct RDW Plt Count Lymph % (Auto) [place] % (Auto) Lymph # [place] # Seg Neutrophils % Seg Neuts % (Manual) Lymphocytes % (Manual) Monocytes % (Manual) Seg Neutrophils # Seg Neutrophils # Man Lymphocytes # (Manual) Monocytes # (Manual) PT INR POC ABG pH POC ABG pCO2 POC ABG pO2 Sodium Potassium Chloride Carbon Dioxide BUN Creatinine Glucose POC Glucose 114 H 125 H 138 H Calcium AST Total Protein Albumin Vancomycin Trough Crossmatch 06/16/17 06/16/17 06/16/17 06:25 06:25 07:07 WBC 14.7 H RBC 3.28 L Hgb 9.8 L Hct 29.1 L RDW 15.7 H Plt Count 117 L Lymph % (Auto) [place] % (Auto) Lymph # [place] # Seg Neutrophils % Seg Neuts % (Manual) 81.0 H Lymphocytes % (Manual) 3.0 L Monocytes % (Manual) 15.0 H Seg Neutrophils # Seg Neutrophils # Man 11.9 H Lymphocytes # (Manual) 0.4 L Monocytes # (Manual) 2.2 H PT INR POC ABG pH POC ABG pCO2 POC ABG pO2 Sodium 155 H Potassium Chloride 117.9 H Carbon Dioxide BUN 22 H Creatinine Glucose 107 H POC Glucose 127 H Calcium 7.9 L AST 57 H Total Protein 5.4 L Albumin 2.4 L Vancomycin Trough Crossmatch 06/16/17 06/16/17 06/16/17 08:00 09:07 10:11 WBC RBC Hgb Hct RDW Plt Count Lymph % (Auto) [place] % (Auto) Lymph # [place] # Seg Neutrophils % Seg Neuts % (Manual) Lymphocytes % (Manual) Monocytes % (Manual) Seg Neutrophils # Seg Neutrophils # Man Lymphocytes # (Manual) Monocytes # (Manual) PT INR POC ABG pH POC ABG pCO2 POC ABG pO2 Sodium Potassium Chloride Carbon Dioxide BUN Creatinine Glucose POC Glucose 113 H 106 H 107 H Calcium AST Total Protein Albumin Vancomycin Trough Crossmatch 06/16/17 06/16/17 06/16/17 10:59 11:28 12:11 WBC RBC Hgb Hct RDW Plt Count Lymph % (Auto) [place] % (Auto) Lymph # [place] # Seg Neutrophils % Seg Neuts % (Manual) Lymphocytes % (Manual) Monocytes % (Manual) Seg Neutrophils # Seg Neutrophils # Man Lymphocytes # (Manual) Monocytes # (Manual) PT INR POC ABG pH POC ABG pCO2 30.3 L POC ABG pO2 118 H Sodium Potassium Chloride Carbon Dioxide BUN Creatinine Glucose POC Glucose 110 H 109 H Calcium AST Total Protein Albumin Vancomycin Trough Crossmatch 06/16/17 06/16/17 06/16/17 13:13 15:40 18:18 WBC RBC Hgb Hct RDW Plt Count Lymph % (Auto) [place] % (Auto) Lymph # [place] # Seg Neutrophils % Seg Neuts % (Manual) Lymphocytes % (Manual) Monocytes % (Manual) Seg Neutrophils # Seg Neutrophils # Man Lymphocytes # (Manual) Monocytes # (Manual) PT INR POC ABG pH POC ABG pCO2 POC ABG pO2 Sodium Potassium Chloride Carbon Dioxide BUN Creatinine Glucose POC Glucose 111 H 143 H 109 H Calcium AST Total Protein Albumin Vancomycin Trough Crossmatch 06/16/17 06/16/17 06/16/17 19:08 20:05 21:00 WBC RBC Hgb Hct RDW Plt Count Lymph % (Auto) [place] % (Auto) Lymph # [place] # Seg Neutrophils % Seg Neuts % (Manual) Lymphocytes % (Manual) Monocytes % (Manual) Seg Neutrophils # Seg Neutrophils # Man Lymphocytes # (Manual) Monocytes # (Manual) PT INR POC ABG pH POC ABG pCO2 POC ABG pO2 Sodium Potassium Chloride Carbon Dioxide BUN Creatinine Glucose POC Glucose 107 H 106 H 119 H Calcium AST Total Protein Albumin Vancomycin Trough Crossmatch 06/16/17 06/17/17 06/17/17 22:01 01:04 02:02 WBC RBC Hgb Hct RDW Plt Count Lymph % (Auto) [place] % (Auto) Lymph # [place] # Seg Neutrophils % Seg Neuts % (Manual) Lymphocytes % (Manual) Monocytes % (Manual) Seg Neutrophils # Seg Neutrophils # Man Lymphocytes # (Manual) Monocytes # (Manual) PT INR POC ABG pH POC ABG pCO2 POC ABG pO2 Sodium Potassium Chloride Carbon Dioxide BUN Creatinine Glucose POC Glucose 142 H 106 H 108 H Calcium AST Total Protein Albumin Vancomycin Trough Crossmatch 06/17/17 06/17/17 06/17/17 02:44 03:42 04:40 WBC 16.4 H RBC 3.14 L Hgb 9.4 L Hct 28.5 L RDW 16.0 H Plt Count 107 L Lymph % (Auto) 5.0 L [place] % (Auto) 10.0 H Lymph # 0.8 L [place] # 1.6 H Seg Neutrophils % 84.4 H Seg Neuts % (Manual) Lymphocytes % (Manual) Monocytes % (Manual) Seg Neutrophils # 13.8 H Seg Neutrophils # Man Lymphocytes # (Manual) Monocytes # (Manual) PT INR POC ABG pH POC ABG pCO2 POC ABG pO2 Sodium Potassium Chloride Carbon Dioxide BUN Creatinine Glucose POC Glucose 109 H 113 H Calcium AST Total Protein Albumin Vancomycin Trough Crossmatch 06/17/17 06/17/17 06/17/17 04:40 04:47 05:33 WBC RBC Hgb Hct RDW Plt Count Lymph % (Auto) [place] % (Auto) Lymph # [place] # Seg Neutrophils % Seg Neuts % (Manual) Lymphocytes % (Manual) Monocytes % (Manual) Seg Neutrophils # Seg Neutrophils # Man Lymphocytes # (Manual) Monocytes # (Manual) PT INR POC ABG pH POC ABG pCO2 POC ABG pO2 Sodium 150 H Potassium Chloride 110.8 H Carbon Dioxide 18 L BUN 25 H Creatinine Glucose 107 H POC Glucose 132 H 124 H Calcium 8.1 L AST 47 H Total Protein 5.4 L Albumin 2.3 L Vancomycin Trough Crossmatch 06/17/17 06/17/17 06/17/17 07:19 08:02 08:53 WBC RBC Hgb Hct RDW Plt Count Lymph % (Auto) [place] % (Auto) Lymph # [place] # Seg Neutrophils % Seg Neuts % (Manual) Lymphocytes % (Manual) Monocytes % (Manual) Seg Neutrophils # Seg Neutrophils # Man Lymphocytes # (Manual) Monocytes # (Manual) PT INR POC ABG pH POC ABG pCO2 POC ABG pO2 Sodium Potassium Chloride Carbon Dioxide BUN Creatinine Glucose POC Glucose 115 H 119 H 130 H Calcium AST Total Protein Albumin Vancomycin Trough Crossmatch 06/17/17 06/17/17 06/17/17 10:00 11:05 12:08 WBC RBC Hgb Hct RDW Plt Count Lymph % (Auto) [place] % (Auto) Lymph # [place] # Seg Neutrophils % Seg Neuts % (Manual) Lymphocytes % (Manual) Monocytes % (Manual) Seg Neutrophils # Seg Neutrophils # Man Lymphocytes # (Manual) Monocytes # (Manual) PT INR POC ABG pH POC ABG pCO2 POC ABG pO2 Sodium Potassium Chloride Carbon Dioxide BUN Creatinine Glucose POC Glucose 122 H 131 H 125 H Calcium AST Total Protein Albumin Vancomycin Trough Crossmatch 06/17/17 06/17/17 06/17/17 13:20 14:09 15:13 WBC RBC Hgb Hct RDW Plt Count Lymph % (Auto) [place] % (Auto) Lymph # [place] # Seg Neutrophils % Seg Neuts % (Manual) Lymphocytes % (Manual) Monocytes % (Manual) Seg Neutrophils # Seg Neutrophils # Man Lymphocytes # (Manual) Monocytes # (Manual) PT INR POC ABG pH POC ABG pCO2 POC ABG pO2 Sodium Potassium Chloride Carbon Dioxide BUN Creatinine Glucose POC Glucose 133 H 114 H 137 H Calcium AST Total Protein Albumin Vancomycin Trough Crossmatch 06/17/17 06/17/17 06/17/17 16:09 16:53 17:46 WBC RBC Hgb Hct RDW Plt Count Lymph % (Auto) [place] % (Auto) Lymph # [place] # Seg Neutrophils % Seg Neuts % (Manual) Lymphocytes % (Manual) Monocytes % (Manual) Seg Neutrophils # Seg Neutrophils # Man Lymphocytes # (Manual) Monocytes # (Manual) PT INR POC ABG pH POC ABG pCO2 POC ABG pO2 Sodium Potassium Chloride Carbon Dioxide BUN Creatinine Glucose POC Glucose 120 H 123 H 112 H Calcium AST Total Protein Albumin Vancomycin Trough Crossmatch 06/17/17 06/17/17 06/17/17 20:36 21:04 21:47 WBC RBC Hgb Hct RDW Plt Count Lymph % (Auto) [place] % (Auto) Lymph # [place] # Seg Neutrophils % Seg Neuts % (Manual) Lymphocytes % (Manual) Monocytes % (Manual) Seg Neutrophils # Seg Neutrophils # Man Lymphocytes # (Manual) Monocytes # (Manual) PT INR POC ABG pH POC ABG pCO2 POC ABG pO2 Sodium Potassium Chloride Carbon Dioxide BUN Creatinine Glucose POC Glucose 127 H 144 H 124 H Calcium AST Total Protein Albumin Vancomycin Trough Crossmatch 06/17/17 06/17/17 06/18/17 22:52 23:49 00:48 WBC RBC Hgb Hct RDW Plt Count Lymph % (Auto) [place] % (Auto) Lymph # [place] # Seg Neutrophils % Seg Neuts % (Manual) Lymphocytes % (Manual) Monocytes % (Manual) Seg Neutrophils # Seg Neutrophils # Man Lymphocytes # (Manual) Monocytes # (Manual) PT INR POC ABG pH POC ABG pCO2 POC ABG pO2 Sodium Potassium Chloride Carbon Dioxide BUN Creatinine Glucose POC Glucose 175 H 162 H 139 H Calcium AST Total Protein Albumin Vancomycin Trough Crossmatch 06/18/17 06/18/17 06/18/17 01:57 03:06 04:03 WBC RBC Hgb Hct RDW Plt Count Lymph % (Auto) [place] % (Auto) Lymph # [place] # Seg Neutrophils % Seg Neuts % (Manual) Lymphocytes % (Manual) Monocytes % (Manual) Seg Neutrophils # Seg Neutrophils # Man Lymphocytes # (Manual) Monocytes # (Manual) PT INR POC ABG pH POC ABG pCO2 POC ABG pO2 Sodium Potassium Chloride Carbon Dioxide BUN Creatinine Glucose POC Glucose 146 H 213 H 159 H Calcium AST Total Protein Albumin Vancomycin Trough Crossmatch 06/18/17 06/18/17 06/18/17 04:57 05:00 05:00 WBC 17.1 H RBC 3.52 L Hgb 10.5 L Hct 32.3 L RDW 15.7 H Plt Count 120 L Lymph % (Auto) 6.8 L [place] % (Auto) 9.6 H Lymph # [place] # 1.6 H Seg Neutrophils % 82.8 H Seg Neuts % (Manual) Lymphocytes % (Manual) Monocytes % (Manual) Seg Neutrophils # 14.1 H Seg Neutrophils # Man Lymphocytes # (Manual) Monocytes # (Manual) PT INR POC ABG pH POC ABG pCO2 POC ABG pO2 Sodium 153 H Potassium Chloride 113.4 H Carbon Dioxide 17 L BUN 28 H Creatinine Glucose 150 H POC Glucose 195 H Calcium AST Total Protein 5.6 L Albumin 2.2 L Vancomycin Trough Crossmatch 06/18/17 06/18/17 06/18/17 05:00 05:23 06:23 WBC RBC Hgb Hct RDW Plt Count Lymph % (Auto) [place] % (Auto) Lymph # [place] # Seg Neutrophils % Seg Neuts % (Manual) Lymphocytes % (Manual) Monocytes % (Manual) Seg Neutrophils # Seg Neutrophils # Man Lymphocytes # (Manual) Monocytes # (Manual) PT INR POC ABG pH POC ABG pCO2 POC ABG pO2 Sodium Potassium Chloride Carbon Dioxide BUN Creatinine Glucose POC Glucose 204 H 159 H Calcium AST Total Protein Albumin Vancomycin Trough 29.4 H Crossmatch 06/18/17 06/18/17 06/18/17 08:06 09:02 11:01 WBC RBC Hgb Hct RDW Plt Count Lymph % (Auto) [place] % (Auto) Lymph # [place] # Seg Neutrophils % Seg Neuts % (Manual) Lymphocytes % (Manual) Monocytes % (Manual) Seg Neutrophils # Seg Neutrophils # Man Lymphocytes # (Manual) Monocytes # (Manual) PT INR POC ABG pH POC ABG pCO2 POC ABG pO2 Sodium Potassium Chloride Carbon Dioxide BUN Creatinine Glucose POC Glucose 120 H 119 H 128 H Calcium AST Total Protein Albumin Vancomycin Trough Crossmatch 06/18/17 06/18/17 06/18/17 11:57 13:04 13:58 WBC RBC Hgb Hct RDW Plt Count Lymph % (Auto) [place] % (Auto) Lymph # [place] # Seg Neutrophils % Seg Neuts % (Manual) Lymphocytes % (Manual) Monocytes % (Manual) Seg Neutrophils # Seg Neutrophils # Man Lymphocytes # (Manual) Monocytes # (Manual) PT INR POC ABG pH POC ABG pCO2 POC ABG pO2 Sodium Potassium Chloride Carbon Dioxide BUN Creatinine Glucose POC Glucose 118 H 127 H 148 H Calcium AST Total Protein Albumin Vancomycin Trough Crossmatch 06/18/17 06/18/17 06/18/17 14:50 16:16 18:00 WBC RBC Hgb Hct RDW Plt Count Lymph % (Auto) [place] % (Auto) Lymph # [place] # Seg Neutrophils % Seg Neuts % (Manual) Lymphocytes % (Manual) Monocytes % (Manual) Seg Neutrophils # Seg Neutrophils # Man Lymphocytes # (Manual) Monocytes # (Manual) PT INR POC ABG pH POC ABG pCO2 POC ABG pO2 Sodium Potassium Chloride Carbon Dioxide BUN Creatinine Glucose POC Glucose 113 H 123 H Calcium AST Total Protein Albumin Vancomycin Trough 21.7 H Crossmatch 06/18/17 06/18/17 06/18/17 18:01 18:59 20:11 WBC RBC Hgb Hct RDW Plt Count Lymph % (Auto) [place] % (Auto) Lymph # [place] # Seg Neutrophils % Seg Neuts % (Manual) Lymphocytes % (Manual) Monocytes % (Manual) Seg Neutrophils # Seg Neutrophils # Man Lymphocytes # (Manual) Monocytes # (Manual) PT INR POC ABG pH POC ABG pCO2 POC ABG pO2 Sodium Potassium Chloride Carbon Dioxide BUN Creatinine Glucose POC Glucose 125 H 128 H 108 H Calcium AST Total Protein Albumin Vancomycin Trough Crossmatch 06/18/17 06/18/17 06/18/17 21:21 22:22 23:04 WBC RBC Hgb Hct RDW Plt Count Lymph % (Auto) [place] % (Auto) Lymph # [place] # Seg Neutrophils % Seg Neuts % (Manual) Lymphocytes % (Manual) Monocytes % (Manual) Seg Neutrophils # Seg Neutrophils # Man Lymphocytes # (Manual) Monocytes # (Manual) PT INR POC ABG pH POC ABG pCO2 POC ABG pO2 Sodium Potassium Chloride Carbon Dioxide BUN Creatinine Glucose POC Glucose 107 H 118 H 171 H Calcium AST Total Protein Albumin Vancomycin Trough Crossmatch 06/19/17 06/19/17 06/19/17 00:43 01:29 02:06 WBC RBC Hgb Hct RDW Plt Count Lymph % (Auto) [place] % (Auto) Lymph # [place] # Seg Neutrophils % Seg Neuts % (Manual) Lymphocytes % (Manual) Monocytes % (Manual) Seg Neutrophils # Seg Neutrophils # Man Lymphocytes # (Manual) Monocytes # (Manual) PT INR POC ABG pH POC ABG pCO2 POC ABG pO2 Sodium Potassium Chloride Carbon Dioxide BUN Creatinine Glucose POC Glucose 141 H 124 H 137 H Calcium AST Total Protein Albumin Vancomycin Trough Crossmatch 06/19/17 06/19/17 06/19/17 03:01 04:37 05:51 WBC RBC Hgb Hct RDW Plt Count Lymph % (Auto) [place] % (Auto) Lymph # [place] # Seg Neutrophils % Seg Neuts % (Manual) Lymphocytes % (Manual) Monocytes % (Manual) Seg Neutrophils # Seg Neutrophils # Man Lymphocytes # (Manual) Monocytes # (Manual) PT INR POC ABG pH POC ABG pCO2 POC ABG pO2 Sodium Potassium Chloride Carbon Dioxide BUN Creatinine Glucose POC Glucose 135 H 126 H 132 H Calcium AST Total Protein Albumin Vancomycin Trough Crossmatch 06/19/17 06/19/17 06/19/17 06:50 06:50 07:59 WBC 14.5 H RBC 3.44 L Hgb 10.2 L Hct 30.6 L RDW 15.4 H Plt Count 139 L Lymph % (Auto) 8.2 L [place] % (Auto) 10.5 H Lymph # [place] # 1.5 H Seg Neutrophils % 79.8 H Seg Neuts % (Manual) Lymphocytes % (Manual) Monocytes % (Manual) Seg Neutrophils # 11.5 H Seg Neutrophils # Man Lymphocytes # (Manual) Monocytes # (Manual) PT INR POC ABG pH POC ABG pCO2 POC ABG pO2 Sodium 154 H Potassium Chloride 115.0 H Carbon Dioxide BUN 24 H Creatinine Glucose 106 H POC Glucose 132 H Calcium 7.8 L AST Total Protein 4.9 L Albumin 2.3 L Vancomycin Trough Crossmatch 06/19/17 06/19/17 06/19/17 09:06 10:05 11:52 WBC RBC Hgb Hct RDW Plt Count Lymph % (Auto) [place] % (Auto) Lymph # [place] # Seg Neutrophils % Seg Neuts % (Manual) Lymphocytes % (Manual) Monocytes % (Manual) Seg Neutrophils # Seg Neutrophils # Man Lymphocytes # (Manual) Monocytes # (Manual) PT INR POC ABG pH POC ABG pCO2 POC ABG pO2 Sodium Potassium Chloride Carbon Dioxide BUN Creatinine Glucose POC Glucose 124 H 124 H 157 H Calcium AST Total Protein Albumin Vancomycin Trough Crossmatch 06/19/17 06/19/17 06/19/17 13:37 14:09 16:07 WBC RBC Hgb Hct RDW Plt Count Lymph % (Auto) [place] % (Auto) Lymph # [place] # Seg Neutrophils % Seg Neuts % (Manual) Lymphocytes % (Manual) Monocytes % (Manual) Seg Neutrophils # Seg Neutrophils # Man Lymphocytes # (Manual) Monocytes # (Manual) PT INR POC ABG pH POC ABG pCO2 POC ABG pO2 Sodium Potassium Chloride Carbon Dioxide BUN Creatinine Glucose POC Glucose 143 H 143 H 183 H Calcium AST Total Protein Albumin Vancomycin Trough Crossmatch 06/19/17 06/20/17 06/20/17 17:32 02:02 03:12 WBC RBC Hgb Hct RDW Plt Count Lymph % (Auto) [place] % (Auto) Lymph # [place] # Seg Neutrophils % Seg Neuts % (Manual) Lymphocytes % (Manual) Monocytes % (Manual) Seg Neutrophils # Seg Neutrophils # Man Lymphocytes # (Manual) Monocytes # (Manual) PT INR POC ABG pH POC ABG pCO2 POC ABG pO2 Sodium Potassium Chloride Carbon Dioxide BUN Creatinine Glucose POC Glucose 132 H 62 L 120 H Calcium AST Total Protein Albumin Vancomycin Trough Crossmatch 06/20/17 06/20/17 06/20/17 04:00 04:00 04:01 WBC 15.0 H RBC 3.21 L Hgb 9.6 L Hct 28.7 L RDW Plt Count Lymph % (Auto) 7.0 L [place] % (Auto) 10.9 H Lymph # 1.1 L [place] # 1.6 H Seg Neutrophils % 81.2 H Seg Neuts % (Manual) Lymphocytes % (Manual) Monocytes % (Manual) Seg Neutrophils # 12.2 H Seg Neutrophils # Man Lymphocytes # (Manual) Monocytes # (Manual) PT INR POC ABG pH POC ABG pCO2 POC ABG pO2 Sodium Potassium Chloride Carbon Dioxide BUN 21 H Creatinine Glucose 172 H POC Glucose 151 H Calcium 7.4 L AST Total Protein 4.9 L Albumin 2.0 L Vancomycin Trough Crossmatch 06/20/17 06/20/17 06/20/17 05:50 08:14 11:28 WBC RBC Hgb Hct RDW Plt Count Lymph % (Auto) [place] % (Auto) Lymph # [place] # Seg Neutrophils % Seg Neuts % (Manual) Lymphocytes % (Manual) Monocytes % (Manual) Seg Neutrophils # Seg Neutrophils # Man Lymphocytes # (Manual) Monocytes # (Manual) PT INR POC ABG pH POC ABG pCO2 POC ABG pO2 Sodium Potassium Chloride Carbon Dioxide BUN Creatinine Glucose POC Glucose 190 H 142 H 115 H Calcium AST Total Protein Albumin Vancomycin Trough Crossmatch 06/20/17 06/20/17 06/21/17 14:13 17:42 00:12 WBC RBC Hgb Hct RDW Plt Count Lymph % (Auto) [place] % (Auto) Lymph # [place] # Seg Neutrophils % Seg Neuts % (Manual) Lymphocytes % (Manual) Monocytes % (Manual) Seg Neutrophils # Seg Neutrophils # Man Lymphocytes # (Manual) Monocytes # (Manual) PT INR POC ABG pH POC ABG pCO2 POC ABG pO2 Sodium Potassium Chloride Carbon Dioxide BUN Creatinine Glucose POC Glucose 145 H 272 H 327 H Calcium AST Total Protein Albumin Vancomycin Trough Crossmatch 06/21/17 06/21/17 06/21/17 05:10 05:10 05:30 WBC 14.0 H RBC 3.24 L Hgb 9.6 L Hct 28.8 L RDW Plt Count Lymph % (Auto) 9.4 L [place] % (Auto) 13.5 H Lymph # [place] # 1.9 H Seg Neutrophils % 76.1 H Seg Neuts % (Manual) Lymphocytes % (Manual) Monocytes % (Manual) Seg Neutrophils # 10.7 H Seg Neutrophils # Man Lymphocytes # (Manual) Monocytes # (Manual) PT INR POC ABG pH POC ABG pCO2 POC ABG pO2 Sodium Potassium Chloride Carbon Dioxide BUN 22 H Creatinine Glucose 235 H POC Glucose 226 H Calcium 7.7 L AST Total Protein 5.4 L Albumin 2.2 L Vancomycin Trough Crossmatch 06/21/17 11:38 WBC RBC Hgb Hct RDW Plt Count Lymph % (Auto) [place] % (Auto) Lymph # [place] # Seg Neutrophils % Seg Neuts % (Manual) Lymphocytes % (Manual) Monocytes % (Manual) Seg Neutrophils # Seg Neutrophils # Man Lymphocytes # (Manual) Monocytes # (Manual) PT INR POC ABG pH POC ABG pCO2 POC ABG pO2 Sodium Potassium Chloride Carbon Dioxide BUN Creatinine Glucose POC Glucose 243 H Calcium AST Total Protein Albumin Vancomycin Trough Crossmatch Chest x-ray: report reviewed, image reviewed (essentially clear lungs)
[2017-06-21] MEDS ORDERED: MIRALAX 3350 PO PRN (16:10)
--- NOTE | 2017-06-21 16:22 | Event Note ---
Date: 06/21/17 Pt's more alert today. Discussed purposed surgery with pt. He agreed with amputation. I later had an extensive conversation with the pt's family (this afternoon). Pt's situation discussed. We went over all the options. They understand and agree to proceed with amputation. Will arrange for L AKA in the OR tomorrow.
--- NOTE | 2017-06-21 18:49 | Progress Note ---
Assessment and Plan Patient is a 76 year old male with hx of PAD, S/P multiple vascular surgeries including a TMA with a wound VAC that malfunctioned leading to blood loss with blood tranfusion. S/p re-do bypass graft, as the distal portion of the bypass of the left tibia to be infected. Bypass tissue friable and would not hold repair sutures. Arm vein harvested and distal portion bypassed around to lower portion of the [employer]. Patient also has history of CAD CABG more than many years ago, ischemic cardiomyopathy hypertension diabetes hyperlipidemia with last known ejection fraction of 40-45% Presents to jail with hypotension, fever. With no improvement despite multiple fluid suspicion was placed on pressors in the ER, admitted to the hospital. -Septic shock w/possible hemorrhagic shock - improving -Infected hematoma of the left femoral; hematoma and infected left femoral tibial graft s/p revision of the same 06/14/17- leukocytosis -Acute blood loss anemia- resolved -Uncontrolled diabetes mellitus- improving on insulin drip -CAD s/p CABG -Tachycardia with PVC -Diabetic wound -Hypernatremia. -S/P Left TMA amputation - healing poorly -S/P wound vac to left foot surgical wound site -Severe PAD s/p multiple revasculariztionprocedures PLAN * S/p Redo of left Popliteal * Shock resolved with iv hydration * Free water for hypernatrmia * Continue supportive care, discussed with repair coil winder, Vascular surgery, ED and patients family * S/P 5 units PRBC, Monitor h/h, Transfuse as needed * Continue IV abx, wound cultures, blood cultures yielded E.coli, ID following * Follow up recs from vascular surgery * Wound care consult to manage wound vac * Cardiology consult and monitor Electrolytes * Accucheck Q1hr. On insulin drip * discussed wtihpt's daughter at length 2 days ago. He is a DNR/DNI * DVT/GI prophylaxis Subjective Date of service: 06/21/17 Principal diagnosis: Septic shock, PAD s/p left limb salvage procedures Interval history: confused Objective - Constitutional Vitals: Vital Signs - 12hr 06/21/17 06/21/17 06/21/17 07:00 08:00 09:00 Temperature 97.8 F Pulse Rate 103 H 102 H 96 H Pulse Rate [ 98 H From Monitor] Respiratory 18 20 19 Rate Blood Pressure 116/67 117/79 113/62 O2 Sat by Pulse 98 Oximetry 06/21/17 06/21/17 06/21/17 10:00 10:20 11:00 Temperature Pulse Rate 100 H 99 H 104 H Pulse Rate [ From Monitor] Respiratory 16 22 Rate Blood Pressure 126/71 126/71 126/75 O2 Sat by Pulse 100 Oximetry 06/21/17 06/21/17 06/21/17 12:00 13:00 14:00 Temperature 98.4 F Pulse Rate 99 H 98 H 96 H Pulse Rate [ From Monitor] Respiratory 18 21 18 Rate Blood Pressure 115/69 116/62 128/74 O2 Sat by Pulse 92 100 71 L Oximetry 06/21/17 06/21/17 06/21/17 15:00 16:00 17:00 Temperature Pulse Rate 97 H 102 H 86 Pulse Rate [ From Monitor] Respiratory 16 21 15 Rate Blood Pressure 131/70 120/57 109/56 O2 Sat by Pulse 100 100 100 Oximetry 06/21/17 18:00 Temperature Pulse Rate 91 H Pulse Rate [ From Monitor] Respiratory 16 Rate Blood Pressure 117/55 O2 Sat by Pulse 100 Oximetry General appearance: Present: no acute distress, well-nourished - EENT Eyes: PERRL, EOM intact Ears: bilateral: normal - Neck Neck: supple, normal ROM - Respiratory Respiratory effort: normal Respiratory: bilateral: CTA - Breasts Breasts: normal - Cardiovascular Rhythm: regular Heart Sounds: Present: S1 & S2. Absent: gallop, rub Extremities: pulses intact, No edema, normal color, Full ROM - Gastrointestinal General gastrointestinal: Present: soft, non-tender, non-distended, normal bowel sounds - Integumentary Integumentary: clear, warm, dry - Musculoskeletal Musculoskeletal: 1, strength equal bilaterally - Neurologic Neurologic: moves all extremities - Psychiatric Psychiatric: memory intact, appropriate mood/affect, intact judgment & insight - Labs CBC & Chem 7: 06/21/17 05:10 06/21/17 05:10 Labs: Abnormal lab results 06/20/17 06/20/17 06/20/17 Range/Units 11:28 14:13 17:42 WBC (4.5-11.0) K/mm3 RBC (3.65-5.03) M/mm3 Hgb (11.8-15.2) gm/dl Hct (35.5-45.6) % Lymph % (Auto) (13.4-35.0) % [place] % (Auto) (0.0-7.3) % [place] # (0.0-0.8) K/mm3 Seg Neutrophils % (40.0-70.0) % Seg Neutrophils # (1.8-7.7) K/mm3 BUN (9-20) mg/dL Glucose (75-100) mg/dL POC Glucose 115 H 145 H 272 H (70-105) Calcium (8.4-10.2) mg/dL Total Protein (6.3-8.2) g/dL Albumin (3.9-5) g/dL 06/21/17 06/21/17 06/21/17 Range/Units 00:12 05:10 05:10 WBC 14.0 H (4.5-11.0) K/mm3 RBC 3.24 L (3.65-5.03) M/mm3 Hgb 9.6 L (11.8-15.2) gm/dl Hct 28.8 L (35.5-45.6) % Lymph % (Auto) 9.4 L (13.4-35.0) % [place] % (Auto) 13.5 H (0.0-7.3) % [place] # 1.9 H (0.0-0.8) K/mm3 Seg Neutrophils % 76.1 H (40.0-70.0) % Seg Neutrophils # 10.7 H (1.8-7.7) K/mm3 BUN 22 H (9-20) mg/dL Glucose 235 H (75-100) mg/dL POC Glucose 327 H (70-105) Calcium 7.7 L (8.4-10.2) mg/dL Total Protein 5.4 L (6.3-8.2) g/dL Albumin 2.2 L (3.9-5) g/dL 06/21/17 06/21/17 06/21/17 Range/Units 05:30 11:38 17:27 WBC (4.5-11.0) K/mm3 RBC (3.65-5.03) M/mm3 Hgb (11.8-15.2) gm/dl Hct (35.5-45.6) % Lymph % (Auto) (13.4-35.0) % [place] % (Auto) (0.0-7.3) % [place] # (0.0-0.8) K/mm3 Seg Neutrophils % (40.0-70.0) % Seg Neutrophils # (1.8-7.7) K/mm3 BUN (9-20) mg/dL Glucose (75-100) mg/dL POC Glucose 226 H 243 H 233 H (70-105) Calcium (8.4-10.2) mg/dL Total Protein (6.3-8.2) g/dL Albumin (3.9-5) g/dL
[2017-06-22] MEDS: MERREM 1,000 MG in NACL 0.9% 100 ML IV SCH ×3 (01:44→17:00)
[2017-06-22] MEDS: NOVOLOG SUB-Q SCH ×4 (01:45→17:11)
[2017-06-22] MEDS: CARDIZEM PO SCH ×3 (02:59→18:21)
[2017-06-22 05:53] LABS: Basophils % (Auto) 0.1 % (0.0-1.8); Eosinophils % (Auto) 0.8 % (0.0-4.3); Hemoglobin 9.5 gm/dl (11.8-15.2); Mean Corpuscular HGB Conc 33 % (32-34); Mean Corpuscular Hemoglobin 29 pg (28-32); Mean Corpuscular Volume 90 fl (84-94); Platelet Count 198 K/mm3 (140-440); Red Blood Count 3.24 M/mm3 (3.65-5.03); Red Cell Distribution Width 15.1 % (13.2-15.2); White Blood Count 13.2 K/mm3 (4.5-11.0)
[2017-06-22 06:05] LABS: Alanine Aminotransferase 17 units/L (7-56); Albumin 2.2 g/dL (3.9-5); Albumin/Globulin Ratio 0.8 %; Alkaline Phosphatase 72 units/L (35-129); Anion Gap 18 mmol/L; BUN/Creatinine Ratio 23.75; Blood Urea Nitrogen 19 mg/dL (9-20); Calcium 7.8 mg/dL (8.4-10.2); Carbon Dioxide 28 mmol/L (22-30); Chloride 102.1 mmol/L (98-107); Glucose 152 mg/dL (75-100); Potassium 3.8 mmol/L (3.6-5.0); Sodium 144 mmol/L (137-145); Total Protein 5.1 g/dL (6.3-8.2)
[2017-06-22] MEDS ORDERED: MARCAINE 0.5% 30 ML INFILTRATI ONE (08:05)
[2017-06-22] MEDS ORDERED: MORPHINE ONE (09:04)
[2017-06-22] MEDS ORDERED: XYLOCAINE MPF 2% ONE (09:05)
[2017-06-22] MEDS ORDERED: VERSED ONE (09:05)
[2017-06-22] MEDS ORDERED: DIPRIVAN 10 MG/ML IV ONE ×2 (09:05→11:09)
[2017-06-22] MEDS ORDERED: NACL 0.9% IR ONE (09:42)
[2017-06-22] MEDS ORDERED: NACL 0.9% 1000 ML 1,000 ML ONE ×2 (09:49→12:42)
[2017-06-22] MEDS ORDERED: ANCEF ONE ×2 (10:29)
[2017-06-22] MEDS: PEPCID PO SCH ×2 (11:11→22:51)
--- NOTE | 2017-06-22 11:44 | Operative Report ---
Operative Report Operative Report: Date of procedure: 06/22/2017 Pre-operative diagnosis: Gangrenous left leg, unreconstructable peripheral vascular disease Post-operative diagnosis: The same Procedure name(s): Left above-knee amputation Surgeon: Jose Shea MD, [facility] Attendant: INNA Wilson Anesthesia: Gen. Findings: [1. Gangrenous nonsalvageable left foot and leg 2. Well vascularized flaps. 3. Excellent hemostasis] Specimens: Left leg, sciatic nerve EBL: 400 mL IV fluids: 700 mL Urine output: 100 mL Disposition: The recovery Indications: Unsalvageable left foot Procedure: Procedure The patient was brought to the operating room laid on the operating table in supine position. After spinal anesthesia was achieved the leg was prepped and draped in usual sterile fashion. The flaps were drawn on the leg in fish[place] fashion 4 fingerbreadths above the knee. The incision along the flap lines was made using #10 blade. Subcutaneous tissues and muscles were divided with Bovie electrocautery. The anterior flap was fashioned by dividing the muscle with Bovie electrocautery. The superficial femoral artery was dissected free and tied off using 0 silk ties and 3-0 silk suture ligature proximally. It was divided. Superficial femoral vein was dissected and divided between 3-0 silk ties. The femur was skeletonized using periosteal elevator. It was divided with oscillating saw. The posterior flap was fashioned using amputation knife. All the bleeding profunda branches were controlled with hemostats and tied over 3-0 silk ties. The stump was washed with warm saline. The muscle was closed over femur using interrupted [id number] 2-0 Vicryl stitches. The subcutaneous fascia was approximated using frequent interrupted 0 Vicryl stitches. The skin was closed with arpit. Dressings were applied. Patient tolerated procedure well. At the end of the case all instrument, sponge, and needle counts were correct.
--- NOTE | 2017-06-22 12:27 | Post Anesthesia Evaluation ---
- Post Anesthesia Evaluation Patient Participated: Yes Airway Patent: Yes Stable Respiratory Function: Yes Nausea/Vomiting: No Temp > 96.8F: Yes Pain Manageable: Yes Adequeate Hydration: Yes Anesthesia Complications: No Block Receding Appropriately: Yes Patient on Ventilator: No
--- NOTE | 2017-06-22 12:36 | Progress Note ---
Assessment and Plan Septic shock Infected hematoma of the left femoral; hematoma and infected left femoral tibial graft s/p revision of the same 06/14/17 Acute blood loss anemia requiring blood transfusion Hyponatremia PVD/PAD status post recent multiple vascular surgeries Hx of CAD s/p CABG fixed inferior and inferolateral wall defect consistent with prior MA but no reversible ischemia on MPI 05/2017 Ischemic cardiomyopathy ejection fraction 40-45% on echocardiogram 05/2017 Hypertension Diabetes Hyperlipidemia Multifocal atrial tachycardia on tele on diltiazem for suppression DNR status Conservative cardiac management. Subjective Date of service: 06/22/17 Principal diagnosis: Septic shock, PAD s/p left limb salvage procedures Interval history: Patient alert with eyes open. No cardiac events overnight. For planned left AKA today. Objective Vital Signs Temp Pulse Pulse Resp BP Pulse Ox 06/22/17 12:30 90 20 123/66 97 06/22/17 12:15 89 18 117/57 97 06/22/17 12:00 89 20 128/62 100 06/22/17 11:55 96 H 19 123/62 100 06/22/17 11:50 98 H 17 128/66 100 06/22/17 11:46 97.2 F L 105 H 16 119/60 96 06/22/17 09:25 97.2 F L 90 20 123/66 97 06/22/17 09:00 115/63 100 06/22/17 08:00 97.8 F 107 H 92 H 20 115/63 100 06/22/17 07:54 100 06/22/17 07:00 92 H 16 125/72 100 06/22/17 06:00 105 H 17 125/72 100 06/22/17 05:00 87 22 117/60 100 06/22/17 04:00 98.8 F 98 H 19 116/72 100 06/22/17 03:00 94 H 20 123/66 100 06/22/17 02:59 97 H 124/65 06/22/17 02:00 102 H 19 124/65 100 06/22/17 01:00 82 16 110/47 100 06/22/17 00:00 98.8 F 90 22 114/57 100 06/21/17 23:00 94 H 21 117/54 100 06/21/17 22:00 101 H 20 109/58 100 06/21/17 21:37 84 06/21/17 21:20 102 H 17 108/55 100 06/21/17 21:00 98 H 18 108/55 96 06/21/17 20:13 97 H 116/53 06/21/17 20:00 86 74 18 116/58 98 06/21/17 19:50 98.4 F 06/21/17 19:00 105 H 17 118/68 100 06/21/17 18:00 91 H 16 117/55 100 06/21/17 17:00 86 15 109/56 100 06/21/17 16:00 102 H 21 120/57 100 06/21/17 15:00 97 H 16 131/70 100 06/21/17 14:00 96 H 18 128/74 71 L 06/21/17 13:00 98 H 21 116/62 100 - Physical Examination General: No Apparent Distress Neck: Positive: neck supple Cardiac: Positive: Reg Rate and Rhythm - Labs and Meds Cardiac Enzymes 06/22/17 Range/Units 05:15 AST 13 (5-40) units/L CBC 06/22/17 Range/Units 05:15 WBC 13.2 H (4.5-11.0) K/mm3 RBC 3.24 L (3.65-5.03) M/mm3 Hgb 9.5 L (11.8-15.2) gm/dl Hct 29.0 L (35.5-45.6) % Plt Count 198 (140-440) K/mm3 Lymph # 1.2 (1.2-5.4) K/mm3 [place] # 2.1 H (0.0-0.8) K/mm3 Eos # 0.1 (0.0-0.4) K/mm3 Baso # 0.0 (0.0-0.1) K/mm3 Comprehensive Metabolic Panel 06/22/17 Range/Units 05:15 Sodium 144 (137-145) mmol/L Potassium 3.8 (3.6-5.0) mmol/L Chloride 102.1 (98-107) mmol/L Carbon Dioxide 28 (22-30) mmol/L BUN 19 (9-20) mg/dL Creatinine 0.8 (0.8-1.5) mg/dL Glucose 152 H (75-100) mg/dL Calcium 7.8 L (8.4-10.2) mg/dL AST 13 (5-40) units/L ALT 17 (7-56) units/L Alkaline Phosphatase 72 (35-129) units/L Total Protein 5.1 L (6.3-8.2) g/dL Albumin 2.2 L (3.9-5) g/dL - Imaging and Cardiology EKG: report reviewed (mild volume overload)
--- NOTE | 2017-06-22 14:19 | Progress Note ---
Assessment and Plan Imp: 1. Acute respiratory failure 2. Sepsis/shock 3. Infected hematoma/acute blood loss anemia 4. PAD 5. AMEYA 6. Hypernatremia 7. Metabolic/toxic encephalopathy Rec: 1. CT head neg for obvious acute process 2. Cont. free water; stopped D5W; cont. SSI 3. TFs per nutrition recs; ST evaluation of swallow -> NPO recommended and can re-assess at some point 4. ABX per ID 5. F/u vascular recs -> AKA done; stable post-op 6. Wound care 7. PT/OT consults 8. On Cardizem PO for MAT per cards 9. Keep in ICU overnight No family present today Subjective Date of service: 06/22/17 Principal diagnosis: Septic shock, PAD s/p left limb salvage procedures Interval history: Had L AKA. On nasal cannula. Less confused. Oriented to person/date. No SOB, pain, other complaints currently. Remains tachycardic. Active Medications Acetaminophen (Tylenol) 650 mg OH Q4H PRN PRN Reason: Pain, Mild (1-3) Last Admin: 06/16/17 07:34 Dose: 650 mg Acetaminophen (Tylenol) 650 mg PO Q4H PRN PRN Reason: For Pain/Fever/Headache Last Admin: 06/19/17 04:46 Dose: 650 mg Acetaminophen/Hydrocodone Bitart ([place] 5/325) 2 each PO Q6H PRN PRN Reason: Pain, Moderate (4-6) Last Admin: 06/20/17 21:27 Dose: 2 each Lipase/Protease/Amylase (Pancreaze Dr 10,500 Unit) 1 each FEEDTUBE PRN PRN PRN Reason: For Clogged Feeding Tube Dextrose (D50w (25gm)) 50 ml IV PRN PRN PRN Reason: Hypoglycemia Diltiazem HCl (Cardizem) 30 mg PO Q8H MARQUEZ Last Admin: 06/22/17 12:34 Dose: Not Given Famotidine (Pepcid) 20 mg PO BID MARQUEZ Last Admin: 06/22/17 11:11 Dose: Not Given Hydromorphone HCl (Dilaudid) 0.5 mg IV Q4H PRN PRN Reason: Pain , Severe (7-10) Last Admin: 06/21/17 16:28 Dose: 0.5 mg Hydrophilic Ointment (Vaseline Lip Therapy) 1 applic TP Q2HR PRN PRN Reason: Dry Lips Meropenem 1,000 mg/ Sodium (Chloride) 100 mls @ 100 mls/hr IV Q8H MARQUEZ PRN Reason: Protocol Last Admin: 06/22/17 11:11 Dose: Not Given Insulin Aspart (Novolog) 0 units SUB-Q Q6HR MARQUEZ PRN Reason: Protocol Last Admin: 06/22/17 12:34 Dose: Not Given Multi-Ingred Cream/Lotion/Oil/Oint (Artificial Tears Ophth Oint) 1 applic OU Q4HR PRN PRN Reason: Dry Eye(s) Naloxone HCl (Narcan 0.4 Mg/1 Ml) 0.1 mg IV Q2MIN PRN PRN Reason: Res Rate </= 8 or 02 SAT < 92% Ondansetron HCl (Zofran) 4 mg IV Q6H PRN PRN Reason: Nausea And Vomiting Polyethylene Glycol (Miralax 3350) 17 gm PO QDAY PRN PRN Reason: Constipation Last Admin: 06/21/17 18:19 Dose: 17 gm Simple Syrup (Simple Syrup) 15 ml FEEDTUBE PRN PRN PRN Reason: Hypoglycemia Simple Syrup (Simple Syrup) 30 ml FEEDTUBE PRN PRN PRN Reason: Hypoglycemia Sodium Bicarbonate (Sodium Bicarbonate) 325 mg FEEDTUBE PRN PRN PRN Reason: For Clogged Feeding Tube Objective Vital Signs - 12hr 06/22/17 06/22/17 06/22/17 02:59 03:00 04:00 Temperature 98.8 F Pulse Rate 97 H 94 H 98 H Pulse Rate [ From Monitor] Respiratory 20 19 Rate Blood Pressure 124/65 123/66 116/72 O2 Sat by Pulse 100 100 Oximetry 06/22/17 06/22/17 06/22/17 05:00 06:00 07:00 Temperature Pulse Rate 87 105 H 92 H Pulse Rate [ From Monitor] Respiratory 22 17 16 Rate Blood Pressure 117/60 125/72 125/72 O2 Sat by Pulse 100 100 100 Oximetry 06/22/17 06/22/17 06/22/17 07:54 08:00 09:00 Temperature 97.8 F Pulse Rate 107 H Pulse Rate [ 92 H From Monitor] Respiratory 20 Rate Blood Pressure 115/63 115/63 O2 Sat by Pulse 100 100 100 Oximetry 06/22/17 06/22/17 06/22/17 09:25 11:46 11:50 Temperature 99.7 F H 97.2 F L Pulse Rate 103 H 105 H 98 H Pulse Rate [ From Monitor] Respiratory 20 16 17 Rate Blood Pressure 119/58 119/60 128/66 O2 Sat by Pulse 100 96 100 Oximetry 06/22/17 06/22/17 06/22/17 11:55 12:00 12:15 Temperature Pulse Rate 96 H 89 89 Pulse Rate [ From Monitor] Respiratory 19 20 18 Rate Blood Pressure 123/62 128/62 117/57 O2 Sat by Pulse 100 100 97 Oximetry 06/22/17 06/22/17 06/22/17 12:30 12:45 13:00 Temperature 98.2 F 98.4 F Pulse Rate 90 98 H 101 H Pulse Rate [ From Monitor] Respiratory 20 16 16 Rate Blood Pressure 123/66 116/58 94/71 O2 Sat by Pulse 97 100 100 Oximetry Constitutional: alert Eyes: non-icteric Neck: supple Effort: normal Ascultation: Bilateral: clear Percussion: Bilateral: not dull Cardiovascular: regular rate and rhythm (no mrg) Gastrointestinal: normoactive bowel sounds, soft, non-tender, non-distended Extremities: no cyanosis, edema (1+ bilateral LE edema), other (wound vacs in place on left) Neurologic: normal mental status (mildly confused), non-focal exam (? weakness RUE) Psychiatric: mood appropriate, affect normal CBC and BMP: 06/22/17 05:15 06/22/17 05:15 ABG, PT/INR, D-dimer: ABG POC ABG pH 7.424 (7.35-7.45) 06/16/17 11:28 POC ABG pCO2 30.3 (35-45) L 06/16/17 11:28 POC ABG pO2 118 (80-105) H 06/16/17 11:28 POC ABG HCO3 19.8 06/16/17 11:28 POC ABG Total CO2 21 06/16/17 11:28 POC ABG O2 Sat 99 06/16/17 11:28 PT/INR, D-dimer PT 15.9 Sec. (12.2-14.9) H 06/14/17 07:42 INR 1.28 (0.87-1.13) H 06/14/17 07:42 Abnormal lab findings: Abnormal Labs 06/13/17 06/13/17 06/13/17 00:18 05:20 10:28 WBC RBC Hgb 6.3 L 7.1 L Hct 19.6 L* 22.1 L RDW Plt Count Lymph % (Auto) [place] % (Auto) Lymph # [place] # Seg Neutrophils % Seg Neuts % (Manual) Lymphocytes % (Manual) Monocytes % (Manual) Seg Neutrophils # Seg Neutrophils # Man Lymphocytes # (Manual) Monocytes # (Manual) PT INR POC ABG pH POC ABG pCO2 POC ABG pO2 Sodium Potassium Chloride Carbon Dioxide BUN Creatinine Glucose POC Glucose 289 H Calcium AST Total Protein Albumin Vancomycin Trough Crossmatch 06/13/17 06/13/17 06/13/17 12:00 16:20 18:45 WBC RBC Hgb 9.9 L 8.8 L Hct 28.8 L D 26.5 L RDW Plt Count Lymph % (Auto) [place] % (Auto) Lymph # [place] # Seg Neutrophils % Seg Neuts % (Manual) Lymphocytes % (Manual) Monocytes % (Manual) Seg Neutrophils # Seg Neutrophils # Man Lymphocytes # (Manual) Monocytes # (Manual) PT INR POC ABG pH POC ABG pCO2 POC ABG pO2 Sodium Potassium Chloride Carbon Dioxide BUN Creatinine Glucose POC Glucose 292 H Calcium AST Total Protein Albumin Vancomycin Trough Crossmatch 06/13/17 06/13/17 06/13/17 18:49 21:13 Unknown WBC RBC Hgb 9.3 L Hct 27.8 L RDW Plt Count Lymph % (Auto) [place] % (Auto) Lymph # [place] # Seg Neutrophils % Seg Neuts % (Manual) Lymphocytes % (Manual) Monocytes % (Manual) Seg Neutrophils # Seg Neutrophils # Man Lymphocytes # (Manual) Monocytes # (Manual) PT INR POC ABG pH POC ABG pCO2 POC ABG pO2 Sodium Potassium Chloride Carbon Dioxide BUN Creatinine Glucose POC Glucose 252 H 234 H Calcium AST Total Protein Albumin Vancomycin Trough Crossmatch 06/14/17 06/14/17 06/14/17 00:24 01:53 04:44 WBC RBC Hgb 8.5 L 8.2 L Hct 25.7 L 25.1 L RDW Plt Count Lymph % (Auto) [place] % (Auto) Lymph # [place] # Seg Neutrophils % Seg Neuts % (Manual) Lymphocytes % (Manual) Monocytes % (Manual) Seg Neutrophils # Seg Neutrophils # Man Lymphocytes # (Manual) Monocytes # (Manual) PT INR POC ABG pH POC ABG pCO2 POC ABG pO2 Sodium Potassium Chloride Carbon Dioxide BUN Creatinine Glucose POC Glucose 213 H Calcium AST Total Protein Albumin Vancomycin Trough Crossmatch 06/14/17 06/14/17 06/14/17 05:49 07:42 07:42 WBC 12.2 H RBC 2.77 L Hgb 8.1 L Hct 25.0 L RDW 15.7 H Plt Count Lymph % (Auto) [place] % (Auto) Lymph # [place] # Seg Neutrophils % Seg Neuts % (Manual) Lymphocytes % (Manual) Monocytes % (Manual) Seg Neutrophils # Seg Neutrophils # Man Lymphocytes # (Manual) Monocytes # (Manual) PT 15.9 H INR 1.28 H POC ABG pH POC ABG pCO2 POC ABG pO2 Sodium Potassium Chloride Carbon Dioxide BUN Creatinine Glucose POC Glucose 218 H Calcium AST Total Protein Albumin Vancomycin Trough Crossmatch 06/14/17 06/14/17 06/14/17 07:42 14:31 16:45 WBC 14.0 H RBC 3.61 L Hgb 10.9 L Hct 32.8 L D RDW 15.8 H Plt Count Lymph % (Auto) [place] % (Auto) Lymph # [place] # Seg Neutrophils % Seg Neuts % (Manual) Lymphocytes % (Manual) Monocytes % (Manual) Seg Neutrophils # Seg Neutrophils # Man Lymphocytes # (Manual) Monocytes # (Manual) PT INR POC ABG pH POC ABG pCO2 POC ABG pO2 Sodium 146 H D Potassium Chloride 110.2 H Carbon Dioxide 15 L D BUN 25 H Creatinine Glucose 185 H POC Glucose 235 H Calcium 8.0 L AST Total Protein 5.1 L Albumin 2.0 L Vancomycin Trough Crossmatch 06/14/17 06/14/17 06/14/17 19:34 19:45 19:45 WBC 13.1 H RBC 3.33 L Hgb 9.9 L Hct 29.7 L RDW 15.7 H Plt Count 126 L Lymph % (Auto) [place] % (Auto) Lymph # [place] # Seg Neutrophils % Seg Neuts % (Manual) Lymphocytes % (Manual) Monocytes % (Manual) Seg Neutrophils # Seg Neutrophils # Man Lymphocytes # (Manual) Monocytes # (Manual) PT INR POC ABG pH POC ABG pCO2 POC ABG pO2 Sodium 148 H Potassium 5.7 H D Chloride 108.5 H Carbon Dioxide 12 L BUN 29 H Creatinine 1.7 H Glucose 324 H POC Glucose 296 H Calcium 7.9 L AST Total Protein Albumin Vancomycin Trough Crossmatch 06/14/17 06/14/17 06/14/17 20:05 21:53 23:06 WBC RBC Hgb Hct RDW Plt Count Lymph % (Auto) [place] % (Auto) Lymph # [place] # Seg Neutrophils % Seg Neuts % (Manual) Lymphocytes % (Manual) Monocytes % (Manual) Seg Neutrophils # Seg Neutrophils # Man Lymphocytes # (Manual) Monocytes # (Manual) PT INR POC ABG pH 7.241 L 7.298 L POC ABG pCO2 32.3 L 26.8 L POC ABG pO2 550 H 303 H Sodium Potassium Chloride Carbon Dioxide BUN Creatinine Glucose POC Glucose 259 H Calcium AST Total Protein Albumin Vancomycin Trough Crossmatch 06/15/17 06/15/17 06/15/17 02:08 06:00 06:15 WBC RBC Hgb 8.8 L Hct 26.4 L RDW Plt Count Lymph % (Auto) [place] % (Auto) Lymph # [place] # Seg Neutrophils % Seg Neuts % (Manual) Lymphocytes % (Manual) Monocytes % (Manual) Seg Neutrophils # Seg Neutrophils # Man Lymphocytes # (Manual) Monocytes # (Manual) PT INR POC ABG pH POC ABG pCO2 POC ABG pO2 Sodium Potassium Chloride Carbon Dioxide BUN Creatinine Glucose POC Glucose 334 H 233 H Calcium AST Total Protein Albumin Vancomycin Trough Crossmatch 06/15/17 06/15/17 06/15/17 06:15 06:54 09:32 WBC RBC Hgb Hct RDW Plt Count Lymph % (Auto) [place] % (Auto) Lymph # [place] # Seg Neutrophils % Seg Neuts % (Manual) Lymphocytes % (Manual) Monocytes % (Manual) Seg Neutrophils # Seg Neutrophils # Man Lymphocytes # (Manual) Monocytes # (Manual) PT INR POC ABG pH POC ABG pCO2 34.4 L POC ABG pO2 191 H Sodium 151 H Potassium Chloride 114.7 H Carbon Dioxide 18 L BUN 29 H Creatinine 1.8 H Glucose 259 H POC Glucose 229 H Calcium 7.7 L AST Total Protein Albumin Vancomycin Trough Crossmatch 06/15/17 06/15/17 06/15/17 11:35 12:32 13:36 WBC RBC Hgb Hct RDW Plt Count Lymph % (Auto) [place] % (Auto) Lymph # [place] # Seg Neutrophils % Seg Neuts % (Manual) Lymphocytes % (Manual) Monocytes % (Manual) Seg Neutrophils # Seg Neutrophils # Man Lymphocytes # (Manual) Monocytes # (Manual) PT INR POC ABG pH POC ABG pCO2 POC ABG pO2 Sodium Potassium Chloride Carbon Dioxide BUN Creatinine Glucose POC Glucose 202 H 189 H Calcium AST Total Protein Albumin Vancomycin Trough Crossmatch See Detail 06/15/17 06/15/17 06/15/17 14:30 15:32 16:28 WBC RBC Hgb Hct RDW Plt Count Lymph % (Auto) [place] % (Auto) Lymph # [place] # Seg Neutrophils % Seg Neuts % (Manual) Lymphocytes % (Manual) Monocytes % (Manual) Seg Neutrophils # Seg Neutrophils # Man Lymphocytes # (Manual) Monocytes # (Manual) PT INR POC ABG pH POC ABG pCO2 POC ABG pO2 Sodium Potassium Chloride Carbon Dioxide BUN Creatinine Glucose POC Glucose 142 H 106 H 119 H Calcium AST Total Protein Albumin Vancomycin Trough Crossmatch 06/15/17 06/15/17 06/15/17 17:36 19:30 20:51 WBC RBC Hgb Hct RDW Plt Count Lymph % (Auto) [place] % (Auto) Lymph # [place] # Seg Neutrophils % Seg Neuts % (Manual) Lymphocytes % (Manual) Monocytes % (Manual) Seg Neutrophils # Seg Neutrophils # Man Lymphocytes # (Manual) Monocytes # (Manual) PT INR POC ABG pH POC ABG pCO2 POC ABG pO2 Sodium Potassium Chloride Carbon Dioxide BUN Creatinine Glucose POC Glucose 121 H 109 H 112 H Calcium AST Total Protein Albumin Vancomycin Trough Crossmatch 06/15/17 06/15/17 06/16/17 21:42 23:27 01:11 WBC RBC Hgb Hct RDW Plt Count Lymph % (Auto) [place] % (Auto) Lymph # [place] # Seg Neutrophils % Seg Neuts % (Manual) Lymphocytes % (Manual) Monocytes % (Manual) Seg Neutrophils # Seg Neutrophils # Man Lymphocytes # (Manual) Monocytes # (Manual) PT INR POC ABG pH POC ABG pCO2 POC ABG pO2 Sodium Potassium Chloride Carbon Dioxide BUN Creatinine Glucose POC Glucose 122 H 142 H 162 H Calcium AST Total Protein Albumin Vancomycin Trough Crossmatch 06/16/17 06/16/17 06/16/17 02:03 02:57 04:05 WBC RBC Hgb Hct RDW Plt Count Lymph % (Auto) [place] % (Auto) Lymph # [place] # Seg Neutrophils % Seg Neuts % (Manual) Lymphocytes % (Manual) Monocytes % (Manual) Seg Neutrophils # Seg Neutrophils # Man Lymphocytes # (Manual) Monocytes # (Manual) PT INR POC ABG pH POC ABG pCO2 POC ABG pO2 Sodium Potassium Chloride Carbon Dioxide BUN Creatinine Glucose POC Glucose 117 H 106 H 108 H Calcium AST Total Protein Albumin Vancomycin Trough Crossmatch 06/16/17 06/16/17 06/16/17 05:09 05:23 06:03 WBC RBC Hgb Hct RDW Plt Count Lymph % (Auto) [place] % (Auto) Lymph # [place] # Seg Neutrophils % Seg Neuts % (Manual) Lymphocytes % (Manual) Monocytes % (Manual) Seg Neutrophils # Seg Neutrophils # Man Lymphocytes # (Manual) Monocytes # (Manual) PT INR POC ABG pH POC ABG pCO2 POC ABG pO2 Sodium Potassium Chloride Carbon Dioxide BUN Creatinine Glucose POC Glucose 114 H 125 H 138 H Calcium AST Total Protein Albumin Vancomycin Trough Crossmatch 06/16/17 06/16/17 06/16/17 06:25 06:25 07:07 WBC 14.7 H RBC 3.28 L Hgb 9.8 L Hct 29.1 L RDW 15.7 H Plt Count 117 L Lymph % (Auto) [place] % (Auto) Lymph # [place] # Seg Neutrophils % Seg Neuts % (Manual) 81.0 H Lymphocytes % (Manual) 3.0 L Monocytes % (Manual) 15.0 H Seg Neutrophils # Seg Neutrophils # Man 11.9 H Lymphocytes # (Manual) 0.4 L Monocytes # (Manual) 2.2 H PT INR POC ABG pH POC ABG pCO2 POC ABG pO2 Sodium 155 H Potassium Chloride 117.9 H Carbon Dioxide BUN 22 H Creatinine Glucose 107 H POC Glucose 127 H Calcium 7.9 L AST 57 H Total Protein 5.4 L Albumin 2.4 L Vancomycin Trough Crossmatch 06/16/17 06/16/17 06/16/17 08:00 09:07 10:11 WBC RBC Hgb Hct RDW Plt Count Lymph % (Auto) [place] % (Auto) Lymph # [place] # Seg Neutrophils % Seg Neuts % (Manual) Lymphocytes % (Manual) Monocytes % (Manual) Seg Neutrophils # Seg Neutrophils # Man Lymphocytes # (Manual) Monocytes # (Manual) PT INR POC ABG pH POC ABG pCO2 POC ABG pO2 Sodium Potassium Chloride Carbon Dioxide BUN Creatinine Glucose POC Glucose 113 H 106 H 107 H Calcium AST Total Protein Albumin Vancomycin Trough Crossmatch 06/16/17 06/16/17 06/16/17 10:59 11:28 12:11 WBC RBC Hgb Hct RDW Plt Count Lymph % (Auto) [place] % (Auto) Lymph # [place] # Seg Neutrophils % Seg Neuts % (Manual) Lymphocytes % (Manual) Monocytes % (Manual) Seg Neutrophils # Seg Neutrophils # Man Lymphocytes # (Manual) Monocytes # (Manual) PT INR POC ABG pH POC ABG pCO2 30.3 L POC ABG pO2 118 H Sodium Potassium Chloride Carbon Dioxide BUN Creatinine Glucose POC Glucose 110 H 109 H Calcium AST Total Protein Albumin Vancomycin Trough Crossmatch 06/16/17 06/16/17 06/16/17 13:13 15:40 18:18 WBC RBC Hgb Hct RDW Plt Count Lymph % (Auto) [place] % (Auto) Lymph # [place] # Seg Neutrophils % Seg Neuts % (Manual) Lymphocytes % (Manual) Monocytes % (Manual) Seg Neutrophils # Seg Neutrophils # Man Lymphocytes # (Manual) Monocytes # (Manual) PT INR POC ABG pH POC ABG pCO2 POC ABG pO2 Sodium Potassium Chloride Carbon Dioxide BUN Creatinine Glucose POC Glucose 111 H 143 H 109 H Calcium AST Total Protein Albumin Vancomycin Trough Crossmatch 06/16/17 06/16/17 06/16/17 19:08 20:05 21:00 WBC RBC Hgb Hct RDW Plt Count Lymph % (Auto) [place] % (Auto) Lymph # [place] # Seg Neutrophils % Seg Neuts % (Manual) Lymphocytes % (Manual) Monocytes % (Manual) Seg Neutrophils # Seg Neutrophils # Man Lymphocytes # (Manual) Monocytes # (Manual) PT INR POC ABG pH POC ABG pCO2 POC ABG pO2 Sodium Potassium Chloride Carbon Dioxide BUN Creatinine Glucose POC Glucose 107 H 106 H 119 H Calcium AST Total Protein Albumin Vancomycin Trough Crossmatch 06/16/17 06/17/17 06/17/17 22:01 01:04 02:02 WBC RBC Hgb Hct RDW Plt Count Lymph % (Auto) [place] % (Auto) Lymph # [place] # Seg Neutrophils % Seg Neuts % (Manual) Lymphocytes % (Manual) Monocytes % (Manual) Seg Neutrophils # Seg Neutrophils # Man Lymphocytes # (Manual) Monocytes # (Manual) PT INR POC ABG pH POC ABG pCO2 POC ABG pO2 Sodium Potassium Chloride Carbon Dioxide BUN Creatinine Glucose POC Glucose 142 H 106 H 108 H Calcium AST Total Protein Albumin Vancomycin Trough Crossmatch 06/17/17 06/17/17 06/17/17 02:44 03:42 04:40 WBC 16.4 H RBC 3.14 L Hgb 9.4 L Hct 28.5 L RDW 16.0 H Plt Count 107 L Lymph % (Auto) 5.0 L [place] % (Auto) 10.0 H Lymph # 0.8 L [place] # 1.6 H Seg Neutrophils % 84.4 H Seg Neuts % (Manual) Lymphocytes % (Manual) Monocytes % (Manual) Seg Neutrophils # 13.8 H Seg Neutrophils # Man Lymphocytes # (Manual) Monocytes # (Manual) PT INR POC ABG pH POC ABG pCO2 POC ABG pO2 Sodium Potassium Chloride Carbon Dioxide BUN Creatinine Glucose POC Glucose 109 H 113 H Calcium AST Total Protein Albumin Vancomycin Trough Crossmatch 06/17/17 06/17/17 06/17/17 04:40 04:47 05:33 WBC RBC Hgb Hct RDW Plt Count Lymph % (Auto) [place] % (Auto) Lymph # [place] # Seg Neutrophils % Seg Neuts % (Manual) Lymphocytes % (Manual) Monocytes % (Manual) Seg Neutrophils # Seg Neutrophils # Man Lymphocytes # (Manual) Monocytes # (Manual) PT INR POC ABG pH POC ABG pCO2 POC ABG pO2 Sodium 150 H Potassium Chloride 110.8 H Carbon Dioxide 18 L BUN 25 H Creatinine Glucose 107 H POC Glucose 132 H 124 H Calcium 8.1 L AST 47 H Total Protein 5.4 L Albumin 2.3 L Vancomycin Trough Crossmatch 06/17/17 06/17/17 06/17/17 07:19 08:02 08:53 WBC RBC Hgb Hct RDW Plt Count Lymph % (Auto) [place] % (Auto) Lymph # [place] # Seg Neutrophils % Seg Neuts % (Manual) Lymphocytes % (Manual) Monocytes % (Manual) Seg Neutrophils # Seg Neutrophils # Man Lymphocytes # (Manual) Monocytes # (Manual) PT INR POC ABG pH POC ABG pCO2 POC ABG pO2 Sodium Potassium Chloride Carbon Dioxide BUN Creatinine Glucose POC Glucose 115 H 119 H 130 H Calcium AST Total Protein Albumin Vancomycin Trough Crossmatch 06/17/17 06/17/17 06/17/17 10:00 11:05 12:08 WBC RBC Hgb Hct RDW Plt Count Lymph % (Auto) [place] % (Auto) Lymph # [place] # Seg Neutrophils % Seg Neuts % (Manual) Lymphocytes % (Manual) Monocytes % (Manual) Seg Neutrophils # Seg Neutrophils # Man Lymphocytes # (Manual) Monocytes # (Manual) PT INR POC ABG pH POC ABG pCO2 POC ABG pO2 Sodium Potassium Chloride Carbon Dioxide BUN Creatinine Glucose POC Glucose 122 H 131 H 125 H Calcium AST Total Protein Albumin Vancomycin Trough Crossmatch 06/17/17 06/17/17 06/17/17 13:20 14:09 15:13 WBC RBC Hgb Hct RDW Plt Count Lymph % (Auto) [place] % (Auto) Lymph # [place] # Seg Neutrophils % Seg Neuts % (Manual) Lymphocytes % (Manual) Monocytes % (Manual) Seg Neutrophils # Seg Neutrophils # Man Lymphocytes # (Manual) Monocytes # (Manual) PT INR POC ABG pH POC ABG pCO2 POC ABG pO2 Sodium Potassium Chloride Carbon Dioxide BUN Creatinine Glucose POC Glucose 133 H 114 H 137 H Calcium AST Total Protein Albumin Vancomycin Trough Crossmatch 06/17/17 06/17/17 06/17/17 16:09 16:53 17:46 WBC RBC Hgb Hct RDW Plt Count Lymph % (Auto) [place] % (Auto) Lymph # [place] # Seg Neutrophils % Seg Neuts % (Manual) Lymphocytes % (Manual) Monocytes % (Manual) Seg Neutrophils # Seg Neutrophils # Man Lymphocytes # (Manual) Monocytes # (Manual) PT INR POC ABG pH POC ABG pCO2 POC ABG pO2 Sodium Potassium Chloride Carbon Dioxide BUN Creatinine Glucose POC Glucose 120 H 123 H 112 H Calcium AST Total Protein Albumin Vancomycin Trough Crossmatch 06/17/17 06/17/17 06/17/17 20:36 21:04 21:47 WBC RBC Hgb Hct RDW Plt Count Lymph % (Auto) [place] % (Auto) Lymph # [place] # Seg Neutrophils % Seg Neuts % (Manual) Lymphocytes % (Manual) Monocytes % (Manual) Seg Neutrophils # Seg Neutrophils # Man Lymphocytes # (Manual) Monocytes # (Manual) PT INR POC ABG pH POC ABG pCO2 POC ABG pO2 Sodium Potassium Chloride Carbon Dioxide BUN Creatinine Glucose POC Glucose 127 H 144 H 124 H Calcium AST Total Protein Albumin Vancomycin Trough Crossmatch 06/17/17 06/17/17 06/18/17 22:52 23:49 00:48 WBC RBC Hgb Hct RDW Plt Count Lymph % (Auto) [place] % (Auto) Lymph # [place] # Seg Neutrophils % Seg Neuts % (Manual) Lymphocytes % (Manual) Monocytes % (Manual) Seg Neutrophils # Seg Neutrophils # Man Lymphocytes # (Manual) Monocytes # (Manual) PT INR POC ABG pH POC ABG pCO2 POC ABG pO2 Sodium Potassium Chloride Carbon Dioxide BUN Creatinine Glucose POC Glucose 175 H 162 H 139 H Calcium AST Total Protein Albumin Vancomycin Trough Crossmatch 06/18/17 06/18/17 06/18/17 01:57 03:06 04:03 WBC RBC Hgb Hct RDW Plt Count Lymph % (Auto) [place] % (Auto) Lymph # [place] # Seg Neutrophils % Seg Neuts % (Manual) Lymphocytes % (Manual) Monocytes % (Manual) Seg Neutrophils # Seg Neutrophils # Man Lymphocytes # (Manual) Monocytes # (Manual) PT INR POC ABG pH POC ABG pCO2 POC ABG pO2 Sodium Potassium Chloride Carbon Dioxide BUN Creatinine Glucose POC Glucose 146 H 213 H 159 H Calcium AST Total Protein Albumin Vancomycin Trough Crossmatch 06/18/17 06/18/17 06/18/17 04:57 05:00 05:00 WBC 17.1 H RBC 3.52 L Hgb 10.5 L Hct 32.3 L RDW 15.7 H Plt Count 120 L Lymph % (Auto) 6.8 L [place] % (Auto) 9.6 H Lymph # [place] # 1.6 H Seg Neutrophils % 82.8 H Seg Neuts % (Manual) Lymphocytes % (Manual) Monocytes % (Manual) Seg Neutrophils # 14.1 H Seg Neutrophils # Man Lymphocytes # (Manual) Monocytes # (Manual) PT INR POC ABG pH POC ABG pCO2 POC ABG pO2 Sodium 153 H Potassium Chloride 113.4 H Carbon Dioxide 17 L BUN 28 H Creatinine Glucose 150 H POC Glucose 195 H Calcium AST Total Protein 5.6 L Albumin 2.2 L Vancomycin Trough Crossmatch 06/18/17 06/18/17 06/18/17 05:00 05:23 06:23 WBC RBC Hgb Hct RDW Plt Count Lymph % (Auto) [place] % (Auto) Lymph # [place] # Seg Neutrophils % Seg Neuts % (Manual) Lymphocytes % (Manual) Monocytes % (Manual) Seg Neutrophils # Seg Neutrophils # Man Lymphocytes # (Manual) Monocytes # (Manual) PT INR POC ABG pH POC ABG pCO2 POC ABG pO2 Sodium Potassium Chloride Carbon Dioxide BUN Creatinine Glucose POC Glucose 204 H 159 H Calcium AST Total Protein Albumin Vancomycin Trough 29.4 H Crossmatch 06/18/17 06/18/17 06/18/17 08:06 09:02 11:01 WBC RBC Hgb Hct RDW Plt Count Lymph % (Auto) [place] % (Auto) Lymph # [place] # Seg Neutrophils % Seg Neuts % (Manual) Lymphocytes % (Manual) Monocytes % (Manual) Seg Neutrophils # Seg Neutrophils # Man Lymphocytes # (Manual) Monocytes # (Manual) PT INR POC ABG pH POC ABG pCO2 POC ABG pO2 Sodium Potassium Chloride Carbon Dioxide BUN Creatinine Glucose POC Glucose 120 H 119 H 128 H Calcium AST Total Protein Albumin Vancomycin Trough Crossmatch 06/18/17 06/18/17 06/18/17 11:57 13:04 13:58 WBC RBC Hgb Hct RDW Plt Count Lymph % (Auto) [place] % (Auto) Lymph # [place] # Seg Neutrophils % Seg Neuts % (Manual) Lymphocytes % (Manual) Monocytes % (Manual) Seg Neutrophils # Seg Neutrophils # Man Lymphocytes # (Manual) Monocytes # (Manual) PT INR POC ABG pH POC ABG pCO2 POC ABG pO2 Sodium Potassium Chloride Carbon Dioxide BUN Creatinine Glucose POC Glucose 118 H 127 H 148 H Calcium AST Total Protein Albumin Vancomycin Trough Crossmatch 06/18/17 06/18/17 06/18/17 14:50 16:16 18:00 WBC RBC Hgb Hct RDW Plt Count Lymph % (Auto) [place] % (Auto) Lymph # [place] # Seg Neutrophils % Seg Neuts % (Manual) Lymphocytes % (Manual) Monocytes % (Manual) Seg Neutrophils # Seg Neutrophils # Man Lymphocytes # (Manual) Monocytes # (Manual) PT INR POC ABG pH POC ABG pCO2 POC ABG pO2 Sodium Potassium Chloride Carbon Dioxide BUN Creatinine Glucose POC Glucose 113 H 123 H Calcium AST Total Protein Albumin Vancomycin Trough 21.7 H Crossmatch 06/18/17 06/18/17 06/18/17 18:01 18:59 20:11 WBC RBC Hgb Hct RDW Plt Count Lymph % (Auto) [place] % (Auto) Lymph # [place] # Seg Neutrophils % Seg Neuts % (Manual) Lymphocytes % (Manual) Monocytes % (Manual) Seg Neutrophils # Seg Neutrophils # Man Lymphocytes # (Manual) Monocytes # (Manual) PT INR POC ABG pH POC ABG pCO2 POC ABG pO2 Sodium Potassium Chloride Carbon Dioxide BUN Creatinine Glucose POC Glucose 125 H 128 H 108 H Calcium AST Total Protein Albumin Vancomycin Trough Crossmatch 06/18/17 06/18/17 06/18/17 21:21 22:22 23:04 WBC RBC Hgb Hct RDW Plt Count Lymph % (Auto) [place] % (Auto) Lymph # [place] # Seg Neutrophils % Seg Neuts % (Manual) Lymphocytes % (Manual) Monocytes % (Manual) Seg Neutrophils # Seg Neutrophils # Man Lymphocytes # (Manual) Monocytes # (Manual) PT INR POC ABG pH POC ABG pCO2 POC ABG pO2 Sodium Potassium Chloride Carbon Dioxide BUN Creatinine Glucose POC Glucose 107 H 118 H 171 H Calcium AST Total Protein Albumin Vancomycin Trough Crossmatch 06/19/17 06/19/17 06/19/17 00:43 01:29 02:06 WBC RBC Hgb Hct RDW Plt Count Lymph % (Auto) [place] % (Auto) Lymph # [place] # Seg Neutrophils % Seg Neuts % (Manual) Lymphocytes % (Manual) Monocytes % (Manual) Seg Neutrophils # Seg Neutrophils # Man Lymphocytes # (Manual) Monocytes # (Manual) PT INR POC ABG pH POC ABG pCO2 POC ABG pO2 Sodium Potassium Chloride Carbon Dioxide BUN Creatinine Glucose POC Glucose 141 H 124 H 137 H Calcium AST Total Protein Albumin Vancomycin Trough Crossmatch 06/19/17 06/19/17 06/19/17 03:01 04:37 05:51 WBC RBC Hgb Hct RDW Plt Count Lymph % (Auto) [place] % (Auto) Lymph # [place] # Seg Neutrophils % Seg Neuts % (Manual) Lymphocytes % (Manual) Monocytes % (Manual) Seg Neutrophils # Seg Neutrophils # Man Lymphocytes # (Manual) Monocytes # (Manual) PT INR POC ABG pH POC ABG pCO2 POC ABG pO2 Sodium Potassium Chloride Carbon Dioxide BUN Creatinine Glucose POC Glucose 135 H 126 H 132 H Calcium AST Total Protein Albumin Vancomycin Trough Crossmatch 06/19/17 06/19/17 06/19/17 06:50 06:50 07:59 WBC 14.5 H RBC 3.44 L Hgb 10.2 L Hct 30.6 L RDW 15.4 H Plt Count 139 L Lymph % (Auto) 8.2 L [place] % (Auto) 10.5 H Lymph # [place] # 1.5 H Seg Neutrophils % 79.8 H Seg Neuts % (Manual) Lymphocytes % (Manual) Monocytes % (Manual) Seg Neutrophils # 11.5 H Seg Neutrophils # Man Lymphocytes # (Manual) Monocytes # (Manual) PT INR POC ABG pH POC ABG pCO2 POC ABG pO2 Sodium 154 H Potassium Chloride 115.0 H Carbon Dioxide BUN 24 H Creatinine Glucose 106 H POC Glucose 132 H Calcium 7.8 L AST Total Protein 4.9 L Albumin 2.3 L Vancomycin Trough Crossmatch 06/19/17 06/19/17 06/19/17 09:06 10:05 11:52 WBC RBC Hgb Hct RDW Plt Count Lymph % (Auto) [place] % (Auto) Lymph # [place] # Seg Neutrophils % Seg Neuts % (Manual) Lymphocytes % (Manual) Monocytes % (Manual) Seg Neutrophils # Seg Neutrophils # Man Lymphocytes # (Manual) Monocytes # (Manual) PT INR POC ABG pH POC ABG pCO2 POC ABG pO2 Sodium Potassium Chloride Carbon Dioxide BUN Creatinine Glucose POC Glucose 124 H 124 H 157 H Calcium AST Total Protein Albumin Vancomycin Trough Crossmatch 06/19/17 06/19/17 06/19/17 13:37 14:09 16:07 WBC RBC Hgb Hct RDW Plt Count Lymph % (Auto) [place] % (Auto) Lymph # [place] # Seg Neutrophils % Seg Neuts % (Manual) Lymphocytes % (Manual) Monocytes % (Manual) Seg Neutrophils # Seg Neutrophils # Man Lymphocytes # (Manual) Monocytes # (Manual) PT INR POC ABG pH POC ABG pCO2 POC ABG pO2 Sodium Potassium Chloride Carbon Dioxide BUN Creatinine Glucose POC Glucose 143 H 143 H 183 H Calcium AST Total Protein Albumin Vancomycin Trough Crossmatch 06/19/17 06/20/17 06/20/17 17:32 02:02 03:12 WBC RBC Hgb Hct RDW Plt Count Lymph % (Auto) [place] % (Auto) Lymph # [place] # Seg Neutrophils % Seg Neuts % (Manual) Lymphocytes % (Manual) Monocytes % (Manual) Seg Neutrophils # Seg Neutrophils # Man Lymphocytes # (Manual) Monocytes # (Manual) PT INR POC ABG pH POC ABG pCO2 POC ABG pO2 Sodium Potassium Chloride Carbon Dioxide BUN Creatinine Glucose POC Glucose 132 H 62 L 120 H Calcium AST Total Protein Albumin Vancomycin Trough Crossmatch 06/20/17 06/20/17 06/20/17 04:00 04:00 04:01 WBC 15.0 H RBC 3.21 L Hgb 9.6 L Hct 28.7 L RDW Plt Count Lymph % (Auto) 7.0 L [place] % (Auto) 10.9 H Lymph # 1.1 L [place] # 1.6 H Seg Neutrophils % 81.2 H Seg Neuts % (Manual) Lymphocytes % (Manual) Monocytes % (Manual) Seg Neutrophils # 12.2 H Seg Neutrophils # Man Lymphocytes # (Manual) Monocytes # (Manual) PT INR POC ABG pH POC ABG pCO2 POC ABG pO2 Sodium Potassium Chloride Carbon Dioxide BUN 21 H Creatinine Glucose 172 H POC Glucose 151 H Calcium 7.4 L AST Total Protein 4.9 L Albumin 2.0 L Vancomycin Trough Crossmatch 06/20/17 06/20/17 06/20/17 05:50 08:14 11:28 WBC RBC Hgb Hct RDW Plt Count Lymph % (Auto) [place] % (Auto) Lymph # [place] # Seg Neutrophils % Seg Neuts % (Manual) Lymphocytes % (Manual) Monocytes % (Manual) Seg Neutrophils # Seg Neutrophils # Man Lymphocytes # (Manual) Monocytes # (Manual) PT INR POC ABG pH POC ABG pCO2 POC ABG pO2 Sodium Potassium Chloride Carbon Dioxide BUN Creatinine Glucose POC Glucose 190 H 142 H 115 H Calcium AST Total Protein Albumin Vancomycin Trough Crossmatch 06/20/17 06/20/17 06/21/17 14:13 17:42 00:12 WBC RBC Hgb Hct RDW Plt Count Lymph % (Auto) [place] % (Auto) Lymph # [place] # Seg Neutrophils % Seg Neuts % (Manual) Lymphocytes % (Manual) Monocytes % (Manual) Seg Neutrophils # Seg Neutrophils # Man Lymphocytes # (Manual) Monocytes # (Manual) PT INR POC ABG pH POC ABG pCO2 POC ABG pO2 Sodium Potassium Chloride Carbon Dioxide BUN Creatinine Glucose POC Glucose 145 H 272 H 327 H Calcium AST Total Protein Albumin Vancomycin Trough Crossmatch 06/21/17 06/21/17 06/21/17 05:10 05:10 05:30 WBC 14.0 H RBC 3.24 L Hgb 9.6 L Hct 28.8 L RDW Plt Count Lymph % (Auto) 9.4 L [place] % (Auto) 13.5 H Lymph # [place] # 1.9 H Seg Neutrophils % 76.1 H Seg Neuts % (Manual) Lymphocytes % (Manual) Monocytes % (Manual) Seg Neutrophils # 10.7 H Seg Neutrophils # Man Lymphocytes # (Manual) Monocytes # (Manual) PT INR POC ABG pH POC ABG pCO2 POC ABG pO2 Sodium Potassium Chloride Carbon Dioxide BUN 22 H Creatinine Glucose 235 H POC Glucose 226 H Calcium 7.7 L AST Total Protein 5.4 L Albumin 2.2 L Vancomycin Trough Crossmatch 06/21/17 06/21/17 06/22/17 11:38 17:27 00:15 WBC RBC Hgb Hct RDW Plt Count Lymph % (Auto) [place] % (Auto) Lymph # [place] # Seg Neutrophils % Seg Neuts % (Manual) Lymphocytes % (Manual) Monocytes % (Manual) Seg Neutrophils # Seg Neutrophils # Man Lymphocytes # (Manual) Monocytes # (Manual) PT INR POC ABG pH POC ABG pCO2 POC ABG pO2 Sodium Potassium Chloride Carbon Dioxide BUN Creatinine Glucose POC Glucose 243 H 233 H 284 H Calcium AST Total Protein Albumin Vancomycin Trough Crossmatch 06/22/17 06/22/17 06/22/17 05:15 05:15 05:18 WBC 13.2 H RBC 3.24 L Hgb 9.5 L Hct 29.0 L RDW Plt Count Lymph % (Auto) 8.9 L [place] % (Auto) 15.7 H Lymph # [place] # 2.1 H Seg Neutrophils % 74.5 H Seg Neuts % (Manual) Lymphocytes % (Manual) Monocytes % (Manual) Seg Neutrophils # 9.8 H Seg Neutrophils # Man Lymphocytes # (Manual) Monocytes # (Manual) PT INR POC ABG pH POC ABG pCO2 POC ABG pO2 Sodium Potassium Chloride Carbon Dioxide BUN Creatinine Glucose 152 H POC Glucose 145 H Calcium 7.8 L AST Total Protein 5.1 L Albumin 2.2 L Vancomycin Trough Crossmatch 06/22/17 06/22/17 12:00 13:19 WBC RBC Hgb Hct RDW Plt Count Lymph % (Auto) [place] % (Auto) Lymph # [place] # Seg Neutrophils % Seg Neuts % (Manual) Lymphocytes % (Manual) Monocytes % (Manual) Seg Neutrophils # Seg Neutrophils # Man Lymphocytes # (Manual) Monocytes # (Manual) PT INR POC ABG pH POC ABG pCO2 POC ABG pO2 Sodium Potassium Chloride Carbon Dioxide BUN Creatinine Glucose POC Glucose 234 H 214 H Calcium AST Total Protein Albumin Vancomycin Trough Crossmatch Chest x-ray: report reviewed, image reviewed
[2017-06-22] MEDS: DILAUDID IV PRN (16:57)
--- NOTE | 2017-06-22 20:11 | Progress Note ---
Assessment and Plan Patient is a 76 year old male with hx of PAD, S/P multiple vascular surgeries including a TMA with a wound VAC that malfunctioned leading to blood loss with blood transfusion. S/p re-do bypass graft, as the distal portion of the bypass of the left tibia to be infected. Bypass tissue friable and would not hold repair sutures. Arm vein harvested and distal portion bypassed around to lower portion of the [employer]. Patient also has history of CAD CABG more than many years ago, ischemic cardiomyopathy hypertension diabetes hyperlipidemia with last known ejection fraction of 40-45%. Left foot became gangrenous despite multiple revasculirization procedure without much success. 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 -Gangrenous left foot with failure multiple revasculirazation procedures, s/p AKA 06/22/17 -Leukocytosis -Acute blood loss anemia - resolved -Uncontrolled diabetes mellitus- improving on insulin - SSI -CAD s/p CABG -Tachycardia with PVC -Diabetic wound -Hypernatremia - corrected -Dysphagis - on soft mechanical diet PLAN * S/p left AKA * Continue supportive care, discussed with yarding engineer, Vascular surgery, * Continue IV abx, * Wound care consult to manage left AKA stump * monitor Electrolytes * Accucheck AC and HS * discussed with pt's daughter * Cehck Lytes and cbc Subjective Date of service: 06/22/17 Principal diagnosis: Septic shock, PAD s/p left limb salvage procedures Interval history: still confused Objective - Constitutional Vitals: Vital Signs - 12hr 06/22/17 06/22/17 06/22/17 07:54 08:00 09:00 Temperature 97.8 F Pulse Rate 107 H Pulse Rate [ 92 H From Monitor] Respiratory 20 Rate Blood Pressure 115/63 115/63 O2 Sat by Pulse 100 100 100 Oximetry 06/22/17 06/22/17 06/22/17 09:25 11:46 11:50 Temperature 99.7 F H 97.2 F L Pulse Rate 103 H 105 H 98 H Pulse Rate [ From Monitor] Respiratory 20 16 17 Rate Blood Pressure 119/58 119/60 128/66 O2 Sat by Pulse 100 96 100 Oximetry 06/22/17 06/22/17 06/22/17 11:55 12:00 12:15 Temperature Pulse Rate 96 H 89 89 Pulse Rate [ From Monitor] Respiratory 19 20 18 Rate Blood Pressure 123/62 128/62 117/57 O2 Sat by Pulse 100 100 97 Oximetry 06/22/17 06/22/17 06/22/17 12:30 12:45 13:00 Temperature 98.2 F 98.4 F Pulse Rate 90 98 H 101 H Pulse Rate [ From Monitor] Respiratory 20 16 16 Rate Blood Pressure 123/66 116/58 94/71 O2 Sat by Pulse 97 100 100 Oximetry 06/22/17 06/22/17 06/22/17 13:01 14:00 15:00 Temperature Pulse Rate 102 H 104 H Pulse Rate [ From Monitor] Respiratory 17 17 Rate Blood Pressure 138/69 113/62 O2 Sat by Pulse 94 100 100 Oximetry 06/22/17 06/22/17 06/22/17 16:00 17:00 18:00 Temperature 98.5 F Pulse Rate 110 H 99 H 115 H Pulse Rate [ 102 H From Monitor] Respiratory 18 26 H 18 Rate Blood Pressure 112/68 131/74 109/76 O2 Sat by Pulse 100 Oximetry 06/22/17 18:21 Temperature Pulse Rate 114 H Pulse Rate [ From Monitor] Respiratory Rate Blood Pressure 112/85 O2 Sat by Pulse Oximetry General appearance: Present: no acute distress, well-nourished - EENT Eyes: PERRL, EOM intact - Neck Neck: supple, normal ROM - Respiratory Respiratory effort: normal Respiratory: bilateral: CTA - Cardiovascular Rhythm: regular Heart Sounds: Present: S1 & S2. Absent: gallop, rub Extremities: pulses intact, normal color, Full ROM - Gastrointestinal General gastrointestinal: Present: soft, non-tender, non-distended, normal bowel sounds - Integumentary Integumentary: clear, warm, dry - Musculoskeletal Musculoskeletal: strength equal bilaterally - Neurologic Neurologic: moves all extremities - Psychiatric Psychiatric: memory intact, appropriate mood/affect, intact judgment & insight - Labs CBC & Chem 7: 06/22/17 05:15 06/22/17 05:15 Labs: Abnormal lab results 06/22/17 06/22/17 06/22/17 Range/Units 00:15 05:15 05:15 WBC 13.2 H (4.5-11.0) K/mm3 RBC 3.24 L (3.65-5.03) M/mm3 Hgb 9.5 L (11.8-15.2) gm/dl Hct 29.0 L (35.5-45.6) % Lymph % (Auto) 8.9 L (13.4-35.0) % [place] % (Auto) 15.7 H (0.0-7.3) % [place] # 2.1 H (0.0-0.8) K/mm3 Seg Neutrophils % 74.5 H (40.0-70.0) % Seg Neutrophils # 9.8 H (1.8-7.7) K/mm3 Glucose 152 H (75-100) mg/dL POC Glucose 284 H (70-105) Calcium 7.8 L (8.4-10.2) mg/dL Total Protein 5.1 L (6.3-8.2) g/dL Albumin 2.2 L (3.9-5) g/dL 06/22/17 06/22/17 06/22/17 Range/Units 05:18 12:00 13:19 WBC (4.5-11.0) K/mm3 RBC (3.65-5.03) M/mm3 Hgb (11.8-15.2) gm/dl Hct (35.5-45.6) % Lymph % (Auto) (13.4-35.0) % [place] % (Auto) (0.0-7.3) % [place] # (0.0-0.8) K/mm3 Seg Neutrophils % (40.0-70.0) % Seg Neutrophils # (1.8-7.7) K/mm3 Glucose (75-100) mg/dL POC Glucose 145 H 234 H 214 H (70-105) Calcium (8.4-10.2) mg/dL Total Protein (6.3-8.2) g/dL Albumin (3.9-5) g/dL 06/22/17 Range/Units 17:05 WBC (4.5-11.0) K/mm3 RBC (3.65-5.03) M/mm3 Hgb (11.8-15.2) gm/dl Hct (35.5-45.6) % Lymph % (Auto) (13.4-35.0) % [place] % (Auto) (0.0-7.3) % [place] # (0.0-0.8) K/mm3 Seg Neutrophils % (40.0-70.0) % Seg Neutrophils # (1.8-7.7) K/mm3 Glucose (75-100) mg/dL POC Glucose 219 H (70-105) Calcium (8.4-10.2) mg/dL Total Protein (6.3-8.2) g/dL Albumin (3.9-5) g/dL
[2017-06-23] MEDS: NOVOLOG SUB-Q SCH ×4 (00:33→18:14)
[2017-06-23] MEDS: MERREM 1,000 MG in NACL 0.9% 100 ML IV SCH ×3 (00:33→16:13)
[2017-06-23] MEDS: CARDIZEM PO SCH ×3 (03:44→18:17)
[2017-06-23 06:56] LABS: Hematocrit 23.9 % (35.5-45.6); Hemoglobin 7.6 gm/dl (11.8-15.2)
[2017-06-23 07:25] LABS: Anion Gap 20 mmol/L; BUN/Creatinine Ratio 16.66; Blood Urea Nitrogen 15 mg/dL (9-20); Carbon Dioxide 25 mmol/L (22-30); Chloride 101.4 mmol/L (98-107); Glucose 167 mg/dL (75-100); Potassium 3.8 mmol/L (3.6-5.0); Sodium 143 mmol/L (137-145)
[2017-06-23] MEDS: PEPCID PO SCH ×2 (10:51→21:39)
[2017-06-23] MEDS: NORCO 5/325 PO PRN (10:51)
--- NOTE | 2017-06-23 12:09 | Progress Note ---
Assessment and Plan Acute respiratory failure on nasal cannula oxygen support with adequate bedside oximetry. Patient no distress, minimal chest congestion Sepsis/shock. Complete antibiotics. Still some fever noted Blood loss anemia PAD AMEYA Hypernatremia. Improving Metabolic/toxic encephalopathy Recommendations Continue antibiotics Gentle IV fluids Continue monitoring serum electrolytes and adjust or replace as needed Monitor for hypotension and changes in urine output aspiration precautions Patient currently on DO NOT RESUSCITATE status. No family at the bedside for case discussion. Critical care time was 31 minutes of [id number] evaluation and coordination of care Subjective Date of service: 06/23/17 Principal diagnosis: Septic shock, PAD s/p left limb salvage procedures Interval history: Confused but in no distress. Sleepy Objective Vital Signs - 12hr 06/23/17 06/23/17 06/23/17 01:00 02:00 03:00 Temperature Pulse Rate 102 H 105 H 100 H Respiratory 24 12 20 Rate Blood Pressure 115/59 113/56 112/58 O2 Sat by Pulse 100 100 100 Oximetry 06/23/17 06/23/17 06/23/17 03:44 04:00 05:00 Temperature 100.4 F H Pulse Rate 112 H 102 H 105 H Respiratory 19 20 Rate Blood Pressure 112/46 114/59 110/55 O2 Sat by Pulse 100 100 Oximetry 06/23/17 06/23/17 06/23/17 06:00 07:00 07:29 Temperature Pulse Rate 101 H 106 H Respiratory 19 24 Rate Blood Pressure 118/58 115/58 O2 Sat by Pulse 100 100 100 Oximetry 06/23/17 06/23/17 08:00 10:51 Temperature 99.4 F Pulse Rate 104 H Respiratory Rate Blood Pressure 112/56 O2 Sat by Pulse Oximetry Constitutional: asleep Eyes: non-icteric Neck: supple Effort: normal Ascultation: Bilateral: clear, rhonchi (sporadic at the left base) Percussion: Bilateral: not dull Cardiovascular: regular rate and rhythm Gastrointestinal: normoactive bowel sounds, soft, non-tender, non-distended Extremities: no cyanosis, other (left BKA) Neurologic: non-focal exam (? weakness RUE) Psychiatric: other (unable to evaluate) CBC and BMP: 06/23/17 06:38 06/23/17 06:38 ABG, PT/INR, D-dimer: ABG POC ABG pH 7.424 (7.35-7.45) 06/16/17 11:28 POC ABG pCO2 30.3 (35-45) L 06/16/17 11:28 POC ABG pO2 118 (80-105) H 06/16/17 11:28 POC ABG HCO3 19.8 06/16/17 11:28 POC ABG Total CO2 21 06/16/17 11:28 POC ABG O2 Sat 99 06/16/17 11:28 PT/INR, D-dimer PT 15.9 Sec. (12.2-14.9) H 06/14/17 07:42 INR 1.28 (0.87-1.13) H 06/14/17 07:42 Abnormal lab findings: Abnormal Labs 06/13/17 06/13/17 06/13/17 00:18 05:20 10:28 WBC RBC Hgb 6.3 L 7.1 L Hct 19.6 L* 22.1 L RDW Plt Count Lymph % (Auto) [place] % (Auto) Lymph # [place] # Seg Neutrophils % Seg Neuts % (Manual) Lymphocytes % (Manual) Monocytes % (Manual) Seg Neutrophils # Seg Neutrophils # Man Lymphocytes # (Manual) Monocytes # (Manual) PT INR POC ABG pH POC ABG pCO2 POC ABG pO2 Sodium Potassium Chloride Carbon Dioxide BUN Creatinine Glucose POC Glucose 289 H Calcium AST Total Protein Albumin Vancomycin Trough Crossmatch 06/13/17 06/13/17 06/13/17 12:00 16:20 18:45 WBC RBC Hgb 9.9 L 8.8 L Hct 28.8 L D 26.5 L RDW Plt Count Lymph % (Auto) [place] % (Auto) Lymph # [place] # Seg Neutrophils % Seg Neuts % (Manual) Lymphocytes % (Manual) Monocytes % (Manual) Seg Neutrophils # Seg Neutrophils # Man Lymphocytes # (Manual) Monocytes # (Manual) PT INR POC ABG pH POC ABG pCO2 POC ABG pO2 Sodium Potassium Chloride Carbon Dioxide BUN Creatinine Glucose POC Glucose 292 H Calcium AST Total Protein Albumin Vancomycin Trough Crossmatch 06/13/17 06/13/17 06/13/17 18:49 21:13 Unknown WBC RBC Hgb 9.3 L Hct 27.8 L RDW Plt Count Lymph % (Auto) [place] % (Auto) Lymph # [place] # Seg Neutrophils % Seg Neuts % (Manual) Lymphocytes % (Manual) Monocytes % (Manual) Seg Neutrophils # Seg Neutrophils # Man Lymphocytes # (Manual) Monocytes # (Manual) PT INR POC ABG pH POC ABG pCO2 POC ABG pO2 Sodium Potassium Chloride Carbon Dioxide BUN Creatinine Glucose POC Glucose 252 H 234 H Calcium AST Total Protein Albumin Vancomycin Trough Crossmatch 06/14/17 06/14/17 06/14/17 00:24 01:53 04:44 WBC RBC Hgb 8.5 L 8.2 L Hct 25.7 L 25.1 L RDW Plt Count Lymph % (Auto) [place] % (Auto) Lymph # [place] # Seg Neutrophils % Seg Neuts % (Manual) Lymphocytes % (Manual) Monocytes % (Manual) Seg Neutrophils # Seg Neutrophils # Man Lymphocytes # (Manual) Monocytes # (Manual) PT INR POC ABG pH POC ABG pCO2 POC ABG pO2 Sodium Potassium Chloride Carbon Dioxide BUN Creatinine Glucose POC Glucose 213 H Calcium AST Total Protein Albumin Vancomycin Trough Crossmatch 06/14/17 06/14/17 06/14/17 05:49 07:42 07:42 WBC 12.2 H RBC 2.77 L Hgb 8.1 L Hct 25.0 L RDW 15.7 H Plt Count Lymph % (Auto) [place] % (Auto) Lymph # [place] # Seg Neutrophils % Seg Neuts % (Manual) Lymphocytes % (Manual) Monocytes % (Manual) Seg Neutrophils # Seg Neutrophils # Man Lymphocytes # (Manual) Monocytes # (Manual) PT 15.9 H INR 1.28 H POC ABG pH POC ABG pCO2 POC ABG pO2 Sodium Potassium Chloride Carbon Dioxide BUN Creatinine Glucose POC Glucose 218 H Calcium AST Total Protein Albumin Vancomycin Trough Crossmatch 06/14/17 06/14/17 06/14/17 07:42 14:31 16:45 WBC 14.0 H RBC 3.61 L Hgb 10.9 L Hct 32.8 L D RDW 15.8 H Plt Count Lymph % (Auto) [place] % (Auto) Lymph # [place] # Seg Neutrophils % Seg Neuts % (Manual) Lymphocytes % (Manual) Monocytes % (Manual) Seg Neutrophils # Seg Neutrophils # Man Lymphocytes # (Manual) Monocytes # (Manual) PT INR POC ABG pH POC ABG pCO2 POC ABG pO2 Sodium 146 H D Potassium Chloride 110.2 H Carbon Dioxide 15 L D BUN 25 H Creatinine Glucose 185 H POC Glucose 235 H Calcium 8.0 L AST Total Protein 5.1 L Albumin 2.0 L Vancomycin Trough Crossmatch 06/14/17 06/14/17 06/14/17 19:34 19:45 19:45 WBC 13.1 H RBC 3.33 L Hgb 9.9 L Hct 29.7 L RDW 15.7 H Plt Count 126 L Lymph % (Auto) [place] % (Auto) Lymph # [place] # Seg Neutrophils % Seg Neuts % (Manual) Lymphocytes % (Manual) Monocytes % (Manual) Seg Neutrophils # Seg Neutrophils # Man Lymphocytes # (Manual) Monocytes # (Manual) PT INR POC ABG pH POC ABG pCO2 POC ABG pO2 Sodium 148 H Potassium 5.7 H D Chloride 108.5 H Carbon Dioxide 12 L BUN 29 H Creatinine 1.7 H Glucose 324 H POC Glucose 296 H Calcium 7.9 L AST Total Protein Albumin Vancomycin Trough Crossmatch 06/14/17 06/14/17 06/14/17 20:05 21:53 23:06 WBC RBC Hgb Hct RDW Plt Count Lymph % (Auto) [place] % (Auto) Lymph # [place] # Seg Neutrophils % Seg Neuts % (Manual) Lymphocytes % (Manual) Monocytes % (Manual) Seg Neutrophils # Seg Neutrophils # Man Lymphocytes # (Manual) Monocytes # (Manual) PT INR POC ABG pH 7.241 L 7.298 L POC ABG pCO2 32.3 L 26.8 L POC ABG pO2 550 H 303 H Sodium Potassium Chloride Carbon Dioxide BUN Creatinine Glucose POC Glucose 259 H Calcium AST Total Protein Albumin Vancomycin Trough Crossmatch 06/15/17 06/15/17 06/15/17 02:08 06:00 06:15 WBC RBC Hgb 8.8 L Hct 26.4 L RDW Plt Count Lymph % (Auto) [place] % (Auto) Lymph # [place] # Seg Neutrophils % Seg Neuts % (Manual) Lymphocytes % (Manual) Monocytes % (Manual) Seg Neutrophils # Seg Neutrophils # Man Lymphocytes # (Manual) Monocytes # (Manual) PT INR POC ABG pH POC ABG pCO2 POC ABG pO2 Sodium Potassium Chloride Carbon Dioxide BUN Creatinine Glucose POC Glucose 334 H 233 H Calcium AST Total Protein Albumin Vancomycin Trough Crossmatch 06/15/17 06/15/17 06/15/17 06:15 06:54 09:32 WBC RBC Hgb Hct RDW Plt Count Lymph % (Auto) [place] % (Auto) Lymph # [place] # Seg Neutrophils % Seg Neuts % (Manual) Lymphocytes % (Manual) Monocytes % (Manual) Seg Neutrophils # Seg Neutrophils # Man Lymphocytes # (Manual) Monocytes # (Manual) PT INR POC ABG pH POC ABG pCO2 34.4 L POC ABG pO2 191 H Sodium 151 H Potassium Chloride 114.7 H Carbon Dioxide 18 L BUN 29 H Creatinine 1.8 H Glucose 259 H POC Glucose 229 H Calcium 7.7 L AST Total Protein Albumin Vancomycin Trough Crossmatch 06/15/17 06/15/17 06/15/17 11:35 12:32 13:36 WBC RBC Hgb Hct RDW Plt Count Lymph % (Auto) [place] % (Auto) Lymph # [place] # Seg Neutrophils % Seg Neuts % (Manual) Lymphocytes % (Manual) Monocytes % (Manual) Seg Neutrophils # Seg Neutrophils # Man Lymphocytes # (Manual) Monocytes # (Manual) PT INR POC ABG pH POC ABG pCO2 POC ABG pO2 Sodium Potassium Chloride Carbon Dioxide BUN Creatinine Glucose POC Glucose 202 H 189 H Calcium AST Total Protein Albumin Vancomycin Trough Crossmatch See Detail 06/15/17 06/15/17 06/15/17 14:30 15:32 16:28 WBC RBC Hgb Hct RDW Plt Count Lymph % (Auto) [place] % (Auto) Lymph # [place] # Seg Neutrophils % Seg Neuts % (Manual) Lymphocytes % (Manual) Monocytes % (Manual) Seg Neutrophils # Seg Neutrophils # Man Lymphocytes # (Manual) Monocytes # (Manual) PT INR POC ABG pH POC ABG pCO2 POC ABG pO2 Sodium Potassium Chloride Carbon Dioxide BUN Creatinine Glucose POC Glucose 142 H 106 H 119 H Calcium AST Total Protein Albumin Vancomycin Trough Crossmatch 06/15/17 06/15/17 06/15/17 17:36 19:30 20:51 WBC RBC Hgb Hct RDW Plt Count Lymph % (Auto) [place] % (Auto) Lymph # [place] # Seg Neutrophils % Seg Neuts % (Manual) Lymphocytes % (Manual) Monocytes % (Manual) Seg Neutrophils # Seg Neutrophils # Man Lymphocytes # (Manual) Monocytes # (Manual) PT INR POC ABG pH POC ABG pCO2 POC ABG pO2 Sodium Potassium Chloride Carbon Dioxide BUN Creatinine Glucose POC Glucose 121 H 109 H 112 H Calcium AST Total Protein Albumin Vancomycin Trough Crossmatch 06/15/17 06/15/17 06/16/17 21:42 23:27 01:11 WBC RBC Hgb Hct RDW Plt Count Lymph % (Auto) [place] % (Auto) Lymph # [place] # Seg Neutrophils % Seg Neuts % (Manual) Lymphocytes % (Manual) Monocytes % (Manual) Seg Neutrophils # Seg Neutrophils # Man Lymphocytes # (Manual) Monocytes # (Manual) PT INR POC ABG pH POC ABG pCO2 POC ABG pO2 Sodium Potassium Chloride Carbon Dioxide BUN Creatinine Glucose POC Glucose 122 H 142 H 162 H Calcium AST Total Protein Albumin Vancomycin Trough Crossmatch 06/16/17 06/16/17 06/16/17 02:03 02:57 04:05 WBC RBC Hgb Hct RDW Plt Count Lymph % (Auto) [place] % (Auto) Lymph # [place] # Seg Neutrophils % Seg Neuts % (Manual) Lymphocytes % (Manual) Monocytes % (Manual) Seg Neutrophils # Seg Neutrophils # Man Lymphocytes # (Manual) Monocytes # (Manual) PT INR POC ABG pH POC ABG pCO2 POC ABG pO2 Sodium Potassium Chloride Carbon Dioxide BUN Creatinine Glucose POC Glucose 117 H 106 H 108 H Calcium AST Total Protein Albumin Vancomycin Trough Crossmatch 06/16/17 06/16/17 06/16/17 05:09 05:23 06:03 WBC RBC Hgb Hct RDW Plt Count Lymph % (Auto) [place] % (Auto) Lymph # [place] # Seg Neutrophils % Seg Neuts % (Manual) Lymphocytes % (Manual) Monocytes % (Manual) Seg Neutrophils # Seg Neutrophils # Man Lymphocytes # (Manual) Monocytes # (Manual) PT INR POC ABG pH POC ABG pCO2 POC ABG pO2 Sodium Potassium Chloride Carbon Dioxide BUN Creatinine Glucose POC Glucose 114 H 125 H 138 H Calcium AST Total Protein Albumin Vancomycin Trough Crossmatch 06/16/17 06/16/17 06/16/17 06:25 06:25 07:07 WBC 14.7 H RBC 3.28 L Hgb 9.8 L Hct 29.1 L RDW 15.7 H Plt Count 117 L Lymph % (Auto) [place] % (Auto) Lymph # [place] # Seg Neutrophils % Seg Neuts % (Manual) 81.0 H Lymphocytes % (Manual) 3.0 L Monocytes % (Manual) 15.0 H Seg Neutrophils # Seg Neutrophils # Man 11.9 H Lymphocytes # (Manual) 0.4 L Monocytes # (Manual) 2.2 H PT INR POC ABG pH POC ABG pCO2 POC ABG pO2 Sodium 155 H Potassium Chloride 117.9 H Carbon Dioxide BUN 22 H Creatinine Glucose 107 H POC Glucose 127 H Calcium 7.9 L AST 57 H Total Protein 5.4 L Albumin 2.4 L Vancomycin Trough Crossmatch 06/16/17 06/16/17 06/16/17 08:00 09:07 10:11 WBC RBC Hgb Hct RDW Plt Count Lymph % (Auto) [place] % (Auto) Lymph # [place] # Seg Neutrophils % Seg Neuts % (Manual) Lymphocytes % (Manual) Monocytes % (Manual) Seg Neutrophils # Seg Neutrophils # Man Lymphocytes # (Manual) Monocytes # (Manual) PT INR POC ABG pH POC ABG pCO2 POC ABG pO2 Sodium Potassium Chloride Carbon Dioxide BUN Creatinine Glucose POC Glucose 113 H 106 H 107 H Calcium AST Total Protein Albumin Vancomycin Trough Crossmatch 06/16/17 06/16/17 06/16/17 10:59 11:28 12:11 WBC RBC Hgb Hct RDW Plt Count Lymph % (Auto) [place] % (Auto) Lymph # [place] # Seg Neutrophils % Seg Neuts % (Manual) Lymphocytes % (Manual) Monocytes % (Manual) Seg Neutrophils # Seg Neutrophils # Man Lymphocytes # (Manual) Monocytes # (Manual) PT INR POC ABG pH POC ABG pCO2 30.3 L POC ABG pO2 118 H Sodium Potassium Chloride Carbon Dioxide BUN Creatinine Glucose POC Glucose 110 H 109 H Calcium AST Total Protein Albumin Vancomycin Trough Crossmatch 06/16/17 06/16/17 06/16/17 13:13 15:40 18:18 WBC RBC Hgb Hct RDW Plt Count Lymph % (Auto) [place] % (Auto) Lymph # [place] # Seg Neutrophils % Seg Neuts % (Manual) Lymphocytes % (Manual) Monocytes % (Manual) Seg Neutrophils # Seg Neutrophils # Man Lymphocytes # (Manual) Monocytes # (Manual) PT INR POC ABG pH POC ABG pCO2 POC ABG pO2 Sodium Potassium Chloride Carbon Dioxide BUN Creatinine Glucose POC Glucose 111 H 143 H 109 H Calcium AST Total Protein Albumin Vancomycin Trough Crossmatch 06/16/17 06/16/17 06/16/17 19:08 20:05 21:00 WBC RBC Hgb Hct RDW Plt Count Lymph % (Auto) [place] % (Auto) Lymph # [place] # Seg Neutrophils % Seg Neuts % (Manual) Lymphocytes % (Manual) Monocytes % (Manual) Seg Neutrophils # Seg Neutrophils # Man Lymphocytes # (Manual) Monocytes # (Manual) PT INR POC ABG pH POC ABG pCO2 POC ABG pO2 Sodium Potassium Chloride Carbon Dioxide BUN Creatinine Glucose POC Glucose 107 H 106 H 119 H Calcium AST Total Protein Albumin Vancomycin Trough Crossmatch 06/16/17 06/17/17 06/17/17 22:01 01:04 02:02 WBC RBC Hgb Hct RDW Plt Count Lymph % (Auto) [place] % (Auto) Lymph # [place] # Seg Neutrophils % Seg Neuts % (Manual) Lymphocytes % (Manual) Monocytes % (Manual) Seg Neutrophils # Seg Neutrophils # Man Lymphocytes # (Manual) Monocytes # (Manual) PT INR POC ABG pH POC ABG pCO2 POC ABG pO2 Sodium Potassium Chloride Carbon Dioxide BUN Creatinine Glucose POC Glucose 142 H 106 H 108 H Calcium AST Total Protein Albumin Vancomycin Trough Crossmatch 06/17/17 06/17/17 06/17/17 02:44 03:42 04:40 WBC 16.4 H RBC 3.14 L Hgb 9.4 L Hct 28.5 L RDW 16.0 H Plt Count 107 L Lymph % (Auto) 5.0 L [place] % (Auto) 10.0 H Lymph # 0.8 L [place] # 1.6 H Seg Neutrophils % 84.4 H Seg Neuts % (Manual) Lymphocytes % (Manual) Monocytes % (Manual) Seg Neutrophils # 13.8 H Seg Neutrophils # Man Lymphocytes # (Manual) Monocytes # (Manual) PT INR POC ABG pH POC ABG pCO2 POC ABG pO2 Sodium Potassium Chloride Carbon Dioxide BUN Creatinine Glucose POC Glucose 109 H 113 H Calcium AST Total Protein Albumin Vancomycin Trough Crossmatch 06/17/17 06/17/17 06/17/17 04:40 04:47 05:33 WBC RBC Hgb Hct RDW Plt Count Lymph % (Auto) [place] % (Auto) Lymph # [place] # Seg Neutrophils % Seg Neuts % (Manual) Lymphocytes % (Manual) Monocytes % (Manual) Seg Neutrophils # Seg Neutrophils # Man Lymphocytes # (Manual) Monocytes # (Manual) PT INR POC ABG pH POC ABG pCO2 POC ABG pO2 Sodium 150 H Potassium Chloride 110.8 H Carbon Dioxide 18 L BUN 25 H Creatinine Glucose 107 H POC Glucose 132 H 124 H Calcium 8.1 L AST 47 H Total Protein 5.4 L Albumin 2.3 L Vancomycin Trough Crossmatch 06/17/17 06/17/17 06/17/17 07:19 08:02 08:53 WBC RBC Hgb Hct RDW Plt Count Lymph % (Auto) [place] % (Auto) Lymph # [place] # Seg Neutrophils % Seg Neuts % (Manual) Lymphocytes % (Manual) Monocytes % (Manual) Seg Neutrophils # Seg Neutrophils # Man Lymphocytes # (Manual) Monocytes # (Manual) PT INR POC ABG pH POC ABG pCO2 POC ABG pO2 Sodium Potassium Chloride Carbon Dioxide BUN Creatinine Glucose POC Glucose 115 H 119 H 130 H Calcium AST Total Protein Albumin Vancomycin Trough Crossmatch 06/17/17 06/17/17 06/17/17 10:00 11:05 12:08 WBC RBC Hgb Hct RDW Plt Count Lymph % (Auto) [place] % (Auto) Lymph # [place] # Seg Neutrophils % Seg Neuts % (Manual) Lymphocytes % (Manual) Monocytes % (Manual) Seg Neutrophils # Seg Neutrophils # Man Lymphocytes # (Manual) Monocytes # (Manual) PT INR POC ABG pH POC ABG pCO2 POC ABG pO2 Sodium Potassium Chloride Carbon Dioxide BUN Creatinine Glucose POC Glucose 122 H 131 H 125 H Calcium AST Total Protein Albumin Vancomycin Trough Crossmatch 06/17/17 06/17/17 06/17/17 13:20 14:09 15:13 WBC RBC Hgb Hct RDW Plt Count Lymph % (Auto) [place] % (Auto) Lymph # [place] # Seg Neutrophils % Seg Neuts % (Manual) Lymphocytes % (Manual) Monocytes % (Manual) Seg Neutrophils # Seg Neutrophils # Man Lymphocytes # (Manual) Monocytes # (Manual) PT INR POC ABG pH POC ABG pCO2 POC ABG pO2 Sodium Potassium Chloride Carbon Dioxide BUN Creatinine Glucose POC Glucose 133 H 114 H 137 H Calcium AST Total Protein Albumin Vancomycin Trough Crossmatch 06/17/17 06/17/17 06/17/17 16:09 16:53 17:46 WBC RBC Hgb Hct RDW Plt Count Lymph % (Auto) [place] % (Auto) Lymph # [place] # Seg Neutrophils % Seg Neuts % (Manual) Lymphocytes % (Manual) Monocytes % (Manual) Seg Neutrophils # Seg Neutrophils # Man Lymphocytes # (Manual) Monocytes # (Manual) PT INR POC ABG pH POC ABG pCO2 POC ABG pO2 Sodium Potassium Chloride Carbon Dioxide BUN Creatinine Glucose POC Glucose 120 H 123 H 112 H Calcium AST Total Protein Albumin Vancomycin Trough Crossmatch 06/17/17 06/17/17 06/17/17 20:36 21:04 21:47 WBC RBC Hgb Hct RDW Plt Count Lymph % (Auto) [place] % (Auto) Lymph # [place] # Seg Neutrophils % Seg Neuts % (Manual) Lymphocytes % (Manual) Monocytes % (Manual) Seg Neutrophils # Seg Neutrophils # Man Lymphocytes # (Manual) Monocytes # (Manual) PT INR POC ABG pH POC ABG pCO2 POC ABG pO2 Sodium Potassium Chloride Carbon Dioxide BUN Creatinine Glucose POC Glucose 127 H 144 H 124 H Calcium AST Total Protein Albumin Vancomycin Trough Crossmatch 06/17/17 06/17/17 06/18/17 22:52 23:49 00:48 WBC RBC Hgb Hct RDW Plt Count Lymph % (Auto) [place] % (Auto) Lymph # [place] # Seg Neutrophils % Seg Neuts % (Manual) Lymphocytes % (Manual) Monocytes % (Manual) Seg Neutrophils # Seg Neutrophils # Man Lymphocytes # (Manual) Monocytes # (Manual) PT INR POC ABG pH POC ABG pCO2 POC ABG pO2 Sodium Potassium Chloride Carbon Dioxide BUN Creatinine Glucose POC Glucose 175 H 162 H 139 H Calcium AST Total Protein Albumin Vancomycin Trough Crossmatch 06/18/17 06/18/17 06/18/17 01:57 03:06 04:03 WBC RBC Hgb Hct RDW Plt Count Lymph % (Auto) [place] % (Auto) Lymph # [place] # Seg Neutrophils % Seg Neuts % (Manual) Lymphocytes % (Manual) Monocytes % (Manual) Seg Neutrophils # Seg Neutrophils # Man Lymphocytes # (Manual) Monocytes # (Manual) PT INR POC ABG pH POC ABG pCO2 POC ABG pO2 Sodium Potassium Chloride Carbon Dioxide BUN Creatinine Glucose POC Glucose 146 H 213 H 159 H Calcium AST Total Protein Albumin Vancomycin Trough Crossmatch 06/18/17 06/18/17 06/18/17 04:57 05:00 05:00 WBC 17.1 H RBC 3.52 L Hgb 10.5 L Hct 32.3 L RDW 15.7 H Plt Count 120 L Lymph % (Auto) 6.8 L [place] % (Auto) 9.6 H Lymph # [place] # 1.6 H Seg Neutrophils % 82.8 H Seg Neuts % (Manual) Lymphocytes % (Manual) Monocytes % (Manual) Seg Neutrophils # 14.1 H Seg Neutrophils # Man Lymphocytes # (Manual) Monocytes # (Manual) PT INR POC ABG pH POC ABG pCO2 POC ABG pO2 Sodium 153 H Potassium Chloride 113.4 H Carbon Dioxide 17 L BUN 28 H Creatinine Glucose 150 H POC Glucose 195 H Calcium AST Total Protein 5.6 L Albumin 2.2 L Vancomycin Trough Crossmatch 06/18/17 06/18/17 06/18/17 05:00 05:23 06:23 WBC RBC Hgb Hct RDW Plt Count Lymph % (Auto) [place] % (Auto) Lymph # [place] # Seg Neutrophils % Seg Neuts % (Manual) Lymphocytes % (Manual) Monocytes % (Manual) Seg Neutrophils # Seg Neutrophils # Man Lymphocytes # (Manual) Monocytes # (Manual) PT INR POC ABG pH POC ABG pCO2 POC ABG pO2 Sodium Potassium Chloride Carbon Dioxide BUN Creatinine Glucose POC Glucose 204 H 159 H Calcium AST Total Protein Albumin Vancomycin Trough 29.4 H Crossmatch 06/18/17 06/18/17 06/18/17 08:06 09:02 11:01 WBC RBC Hgb Hct RDW Plt Count Lymph % (Auto) [place] % (Auto) Lymph # [place] # Seg Neutrophils % Seg Neuts % (Manual) Lymphocytes % (Manual) Monocytes % (Manual) Seg Neutrophils # Seg Neutrophils # Man Lymphocytes # (Manual) Monocytes # (Manual) PT INR POC ABG pH POC ABG pCO2 POC ABG pO2 Sodium Potassium Chloride Carbon Dioxide BUN Creatinine Glucose POC Glucose 120 H 119 H 128 H Calcium AST Total Protein Albumin Vancomycin Trough Crossmatch 06/18/17 06/18/17 06/18/17 11:57 13:04 13:58 WBC RBC Hgb Hct RDW Plt Count Lymph % (Auto) [place] % (Auto) Lymph # [place] # Seg Neutrophils % Seg Neuts % (Manual) Lymphocytes % (Manual) Monocytes % (Manual) Seg Neutrophils # Seg Neutrophils # Man Lymphocytes # (Manual) Monocytes # (Manual) PT INR POC ABG pH POC ABG pCO2 POC ABG pO2 Sodium Potassium Chloride Carbon Dioxide BUN Creatinine Glucose POC Glucose 118 H 127 H 148 H Calcium AST Total Protein Albumin Vancomycin Trough Crossmatch 06/18/17 06/18/17 06/18/17 14:50 16:16 18:00 WBC RBC Hgb Hct RDW Plt Count Lymph % (Auto) [place] % (Auto) Lymph # [place] # Seg Neutrophils % Seg Neuts % (Manual) Lymphocytes % (Manual) Monocytes % (Manual) Seg Neutrophils # Seg Neutrophils # Man Lymphocytes # (Manual) Monocytes # (Manual) PT INR POC ABG pH POC ABG pCO2 POC ABG pO2 Sodium Potassium Chloride Carbon Dioxide BUN Creatinine Glucose POC Glucose 113 H 123 H Calcium AST Total Protein Albumin Vancomycin Trough 21.7 H Crossmatch 06/18/17 06/18/17 06/18/17 18:01 18:59 20:11 WBC RBC Hgb Hct RDW Plt Count Lymph % (Auto) [place] % (Auto) Lymph # [place] # Seg Neutrophils % Seg Neuts % (Manual) Lymphocytes % (Manual) Monocytes % (Manual) Seg Neutrophils # Seg Neutrophils # Man Lymphocytes # (Manual) Monocytes # (Manual) PT INR POC ABG pH POC ABG pCO2 POC ABG pO2 Sodium Potassium Chloride Carbon Dioxide BUN Creatinine Glucose POC Glucose 125 H 128 H 108 H Calcium AST Total Protein Albumin Vancomycin Trough Crossmatch 06/18/17 06/18/17 06/18/17 21:21 22:22 23:04 WBC RBC Hgb Hct RDW Plt Count Lymph % (Auto) [place] % (Auto) Lymph # [place] # Seg Neutrophils % Seg Neuts % (Manual) Lymphocytes % (Manual) Monocytes % (Manual) Seg Neutrophils # Seg Neutrophils # Man Lymphocytes # (Manual) Monocytes # (Manual) PT INR POC ABG pH POC ABG pCO2 POC ABG pO2 Sodium Potassium Chloride Carbon Dioxide BUN Creatinine Glucose POC Glucose 107 H 118 H 171 H Calcium AST Total Protein Albumin Vancomycin Trough Crossmatch 06/19/17 06/19/17 06/19/17 00:43 01:29 02:06 WBC RBC Hgb Hct RDW Plt Count Lymph % (Auto) [place] % (Auto) Lymph # [place] # Seg Neutrophils % Seg Neuts % (Manual) Lymphocytes % (Manual) Monocytes % (Manual) Seg Neutrophils # Seg Neutrophils # Man Lymphocytes # (Manual) Monocytes # (Manual) PT INR POC ABG pH POC ABG pCO2 POC ABG pO2 Sodium Potassium Chloride Carbon Dioxide BUN Creatinine Glucose POC Glucose 141 H 124 H 137 H Calcium AST Total Protein Albumin Vancomycin Trough Crossmatch 06/19/17 06/19/17 06/19/17 03:01 04:37 05:51 WBC RBC Hgb Hct RDW Plt Count Lymph % (Auto) [place] % (Auto) Lymph # [place] # Seg Neutrophils % Seg Neuts % (Manual) Lymphocytes % (Manual) Monocytes % (Manual) Seg Neutrophils # Seg Neutrophils # Man Lymphocytes # (Manual) Monocytes # (Manual) PT INR POC ABG pH POC ABG pCO2 POC ABG pO2 Sodium Potassium Chloride Carbon Dioxide BUN Creatinine Glucose POC Glucose 135 H 126 H 132 H Calcium AST Total Protein Albumin Vancomycin Trough Crossmatch 06/19/17 06/19/17 06/19/17 06:50 06:50 07:59 WBC 14.5 H RBC 3.44 L Hgb 10.2 L Hct 30.6 L RDW 15.4 H Plt Count 139 L Lymph % (Auto) 8.2 L [place] % (Auto) 10.5 H Lymph # [place] # 1.5 H Seg Neutrophils % 79.8 H Seg Neuts % (Manual) Lymphocytes % (Manual) Monocytes % (Manual) Seg Neutrophils # 11.5 H Seg Neutrophils # Man Lymphocytes # (Manual) Monocytes # (Manual) PT INR POC ABG pH POC ABG pCO2 POC ABG pO2 Sodium 154 H Potassium Chloride 115.0 H Carbon Dioxide BUN 24 H Creatinine Glucose 106 H POC Glucose 132 H Calcium 7.8 L AST Total Protein 4.9 L Albumin 2.3 L Vancomycin Trough Crossmatch 06/19/17 06/19/17 06/19/17 09:06 10:05 11:52 WBC RBC Hgb Hct RDW Plt Count Lymph % (Auto) [place] % (Auto) Lymph # [place] # Seg Neutrophils % Seg Neuts % (Manual) Lymphocytes % (Manual) Monocytes % (Manual) Seg Neutrophils # Seg Neutrophils # Man Lymphocytes # (Manual) Monocytes # (Manual) PT INR POC ABG pH POC ABG pCO2 POC ABG pO2 Sodium Potassium Chloride Carbon Dioxide BUN Creatinine Glucose POC Glucose 124 H 124 H 157 H Calcium AST Total Protein Albumin Vancomycin Trough Crossmatch 06/19/17 06/19/17 06/19/17 13:37 14:09 16:07 WBC RBC Hgb Hct RDW Plt Count Lymph % (Auto) [place] % (Auto) Lymph # [place] # Seg Neutrophils % Seg Neuts % (Manual) Lymphocytes % (Manual) Monocytes % (Manual) Seg Neutrophils # Seg Neutrophils # Man Lymphocytes # (Manual) Monocytes # (Manual) PT INR POC ABG pH POC ABG pCO2 POC ABG pO2 Sodium Potassium Chloride Carbon Dioxide BUN Creatinine Glucose POC Glucose 143 H 143 H 183 H Calcium AST Total Protein Albumin Vancomycin Trough Crossmatch 06/19/17 06/20/17 06/20/17 17:32 02:02 03:12 WBC RBC Hgb Hct RDW Plt Count Lymph % (Auto) [place] % (Auto) Lymph # [place] # Seg Neutrophils % Seg Neuts % (Manual) Lymphocytes % (Manual) Monocytes % (Manual) Seg Neutrophils # Seg Neutrophils # Man Lymphocytes # (Manual) Monocytes # (Manual) PT INR POC ABG pH POC ABG pCO2 POC ABG pO2 Sodium Potassium Chloride Carbon Dioxide BUN Creatinine Glucose POC Glucose 132 H 62 L 120 H Calcium AST Total Protein Albumin Vancomycin Trough Crossmatch 06/20/17 06/20/17 06/20/17 04:00 04:00 04:01 WBC 15.0 H RBC 3.21 L Hgb 9.6 L Hct 28.7 L RDW Plt Count Lymph % (Auto) 7.0 L [place] % (Auto) 10.9 H Lymph # 1.1 L [place] # 1.6 H Seg Neutrophils % 81.2 H Seg Neuts % (Manual) Lymphocytes % (Manual) Monocytes % (Manual) Seg Neutrophils # 12.2 H Seg Neutrophils # Man Lymphocytes # (Manual) Monocytes # (Manual) PT INR POC ABG pH POC ABG pCO2 POC ABG pO2 Sodium Potassium Chloride Carbon Dioxide BUN 21 H Creatinine Glucose 172 H POC Glucose 151 H Calcium 7.4 L AST Total Protein 4.9 L Albumin 2.0 L Vancomycin Trough Crossmatch 06/20/17 06/20/17 06/20/17 05:50 08:14 11:28 WBC RBC Hgb Hct RDW Plt Count Lymph % (Auto) [place] % (Auto) Lymph # [place] # Seg Neutrophils % Seg Neuts % (Manual) Lymphocytes % (Manual) Monocytes % (Manual) Seg Neutrophils # Seg Neutrophils # Man Lymphocytes # (Manual) Monocytes # (Manual) PT INR POC ABG pH POC ABG pCO2 POC ABG pO2 Sodium Potassium Chloride Carbon Dioxide BUN Creatinine Glucose POC Glucose 190 H 142 H 115 H Calcium AST Total Protein Albumin Vancomycin Trough Crossmatch 06/20/17 06/20/17 06/21/17 14:13 17:42 00:12 WBC RBC Hgb Hct RDW Plt Count Lymph % (Auto) [place] % (Auto) Lymph # [place] # Seg Neutrophils % Seg Neuts % (Manual) Lymphocytes % (Manual) Monocytes % (Manual) Seg Neutrophils # Seg Neutrophils # Man Lymphocytes # (Manual) Monocytes # (Manual) PT INR POC ABG pH POC ABG pCO2 POC ABG pO2 Sodium Potassium Chloride Carbon Dioxide BUN Creatinine Glucose POC Glucose 145 H 272 H 327 H Calcium AST Total Protein Albumin Vancomycin Trough Crossmatch 06/21/17 06/21/1706/21/17 05:10 05:10 05:30 WBC 14.0 H RBC 3.24 L Hgb 9.6 L Hct 28.8 L RDW Plt Count Lymph % (Auto) 9.4 L [place] % (Auto) 13.5 H Lymph # [place] # 1.9 H Seg Neutrophils % 76.1 H Seg Neuts % (Manual) Lymphocytes % (Manual) Monocytes % (Manual) Seg Neutrophils # 10.7 H Seg Neutrophils # Man Lymphocytes # (Manual) Monocytes # (Manual) PT INR POC ABG pH POC ABG pCO2 POC ABG pO2 Sodium Potassium Chloride Carbon Dioxide BUN 22 H Creatinine Glucose 235 H POC Glucose 226 H Calcium 7.7 L AST Total Protein 5.4 L Albumin 2.2 L Vancomycin Trough Crossmatch 06/21/17 06/21/17 06/22/17 11:38 17:27 00:15 WBC RBC Hgb Hct RDW Plt Count Lymph % (Auto) [place] % (Auto) Lymph # [place] # Seg Neutrophils % Seg Neuts % (Manual) Lymphocytes % (Manual) Monocytes % (Manual) Seg Neutrophils # Seg Neutrophils # Man Lymphocytes # (Manual) Monocytes # (Manual) PT INR POC ABG pH POC ABG pCO2 POC ABG pO2 Sodium Potassium Chloride Carbon Dioxide BUN Creatinine Glucose POC Glucose 243 H 233 H 284 H Calcium AST Total Protein Albumin Vancomycin Trough Crossmatch 06/22/17 06/22/17 06/22/17 05:15 05:15 05:18 WBC 13.2 H RBC 3.24 L Hgb 9.5 L Hct 29.0 L RDW Plt Count Lymph % (Auto) 8.9 L [place] % (Auto) 15.7 H Lymph # [place] # 2.1 H Seg Neutrophils % 74.5 H Seg Neuts % (Manual) Lymphocytes % (Manual) Monocytes % (Manual) Seg Neutrophils # 9.8 H Seg Neutrophils # Man Lymphocytes # (Manual) Monocytes # (Manual) PT INR POC ABG pH POC ABG pCO2 POC ABG pO2 Sodium Potassium Chloride Carbon Dioxide BUN Creatinine Glucose 152 H POC Glucose 145 H Calcium 7.8 L AST Total Protein 5.1 L Albumin 2.2 L Vancomycin Trough Crossmatch 06/22/17 06/22/17 06/22/17 12:00 13:19 17:05 WBC RBC Hgb Hct RDW Plt Count Lymph % (Auto) [place] % (Auto) Lymph # [place] # Seg Neutrophils % Seg Neuts % (Manual) Lymphocytes % (Manual) Monocytes % (Manual) Seg Neutrophils # Seg Neutrophils # Man Lymphocytes # (Manual) Monocytes # (Manual) PT INR POC ABG pH POC ABG pCO2 POC ABG pO2 Sodium Potassium Chloride Carbon Dioxide BUN Creatinine Glucose POC Glucose 234 H 214 H 219 H Calcium AST Total Protein Albumin Vancomycin Trough Crossmatch 06/23/17 06/23/17 06/23/17 00:23 05:35 06:38 WBC RBC Hgb 7.6 L Hct 23.9 L RDW Plt Count Lymph % (Auto) [place] % (Auto) Lymph # [place] # Seg Neutrophils % Seg Neuts % (Manual) Lymphocytes % (Manual) Monocytes % (Manual) Seg Neutrophils # Seg Neutrophils # Man Lymphocytes # (Manual) Monocytes # (Manual) PT INR POC ABG pH POC ABG pCO2 POC ABG pO2 Sodium Potassium Chloride Carbon Dioxide BUN Creatinine Glucose POC Glucose 186 H 178 H Calcium AST Total Protein Albumin Vancomycin Trough Crossmatch 06/23/17 06:38 WBC RBC Hgb Hct RDW Plt Count Lymph % (Auto) [place] % (Auto) Lymph # [place] # Seg Neutrophils % Seg Neuts % (Manual) Lymphocytes % (Manual) Monocytes % (Manual) Seg Neutrophils # Seg Neutrophils # Man Lymphocytes # (Manual) Monocytes # (Manual) PT INR POC ABG pH POC ABG pCO2 POC ABG pO2 Sodium Potassium Chloride Carbon Dioxide BUN Creatinine Glucose 167 H POC Glucose Calcium 8.0 L AST Total Protein Albumin Vancomycin Trough Crossmatch Chest x-ray: report reviewed
--- NOTE | 2017-06-23 13:10 | Progress Note ---
Assessment and Plan - Patient Problems (1) Atherosclerosis of [place] arteries of the extremities with gangrene Current Visit: Yes Status: Acute Qualifiers: Peripheral atherosclerosis location: P Laterality: L Plan to address problem: post op AKA, wound stable. Open wound left groin- wound vac. Overall stable. (2) Acute blood loss anemia Current Visit: Yes Status: Acute Plan to address problem: H/H noted. Observe for now. Subjective Date of service: 06/23/17 Principal diagnosis: Septic shock, PAD s/p left limb salvage procedures Interval history: No complaint, nurse reports wound vac problem Objective - Constitutional Vitals: Vital Signs - 12hr 06/23/17 06/23/17 06/23/17 02:00 03:00 03:44 Temperature Pulse Rate 105 H 100 H 112 H Respiratory 12 20 Rate Blood Pressure 113/56 112/58 112/46 O2 Sat by Pulse 100 100 Oximetry 06/23/17 06/23/17 06/23/17 04:00 05:00 06:00 Temperature 100.4 F H Pulse Rate 102 H 105 H 101 H Respiratory 19 20 19 Rate Blood Pressure 114/59 110/55 118/58 O2 Sat by Pulse 100 100 100 Oximetry 06/23/17 06/23/17 06/23/17 07:00 07:29 08:00 Temperature 99.4 F Pulse Rate 106 H Respiratory 24 Rate Blood Pressure 115/58 O2 Sat by Pulse 100 100 Oximetry 06/23/17 06/23/17 10:51 12:00 Temperature 99.1 F Pulse Rate 104 H Respiratory Rate Blood Pressure 112/56 O2 Sat by Pulse Oximetry General appearance: Present: no acute distress - EENT ENT: clear oral mucosa - Neck Neck: supple, normal ROM - Respiratory Respiratory effort: normal Respiratory: bilateral: CTA - Breasts Breasts: deferred - Cardiovascular Rhythm: regular Heart Sounds: Present: S1 & S2 Extremities: no ischemia (AKA stump- clean, dry and intact) - Integumentary Integumentary: clear, warm, dry (groin wound clean, some fibrinous change. No odor, no active bleeding, granulating edge) - Labs CBC & Chem 7: 06/23/17 06:38 06/23/17 06:38 Labs: Abnormal lab results 06/22/17 06/22/17 06/23/17 Range/Units 13:19 17:05 00:23 Hgb (11.8-15.2) gm/dl Hct (35.5-45.6) % Glucose (75-100) mg/dL POC Glucose 214 H 219 H 186 H (70-105) Calcium (8.4-10.2) mg/dL 06/23/17 06/23/17 06/23/17 Range/Units 05:35 06:38 06:38 Hgb 7.6 L (11.8-15.2) gm/dl Hct 23.9 L (35.5-45.6) % Glucose 167 H (75-100) mg/dL POC Glucose 178 H (70-105) Calcium 8.0 L (8.4-10.2) mg/dL 06/23/17 Range/Units 12:23 Hgb (11.8-15.2) gm/dl Hct (35.5-45.6) % Glucose (75-100) mg/dL POC Glucose 232 H (70-105) Calcium (8.4-10.2) mg/dL
[2017-06-23] MEDS: DILAUDID IV PRN (13:13)
--- NOTE | 2017-06-23 14:21 | Progress Note ---
Assessment and Plan Septic shock Acute blood loss anemia requiring blood transfusion Hyponatremia PVD/PAD status post left AKA Hx of CAD s/p CABG fixed inferior and inferolateral wall defect consistent with prior ID but no reversible ischemia on MPI 05/2017 Ischemic cardiomyopathy ejection fraction 40-45% on echocardiogram 05/2017 Hypertension Diabetes Hyperlipidemia Multifocal atrial tachycardia on tele on diltiazem for suppression DNR status Recommend: Continue supportive care Conservative cardiac management. Subjective Date of service: 06/23/17 Principal diagnosis: Septic shock, PAD s/p left limb salvage procedures Interval history: No cardiac events. Remains in sinus rhythm with frequent atrial ectopy Objective Vital Signs Temp Pulse Pulse Resp BP Pulse Ox 06/23/17 12:00 99.1 F 06/23/17 10:51 104 H 112/56 06/23/17 08:00 99.4 F 06/23/17 07:29 100 06/23/17 07:00 106 H 24 115/58 100 06/23/17 06:00 101 H 19 118/58 100 06/23/17 05:00 105 H 20 110/55 100 06/23/17 04:00 100.4 F H 102 H 19 114/59 100 06/23/17 03:44 112 H 112/46 06/23/17 03:00 100 H 20 112/58 100 06/23/17 02:00 105 H 12 113/56 100 06/23/17 01:00 102 H 24 115/59 100 06/23/17 00:00 97.6 F 103 H 18 116/55 100 06/22/17 23:34 107 H 17 117/61 100 06/22/17 23:00 100 H 23 127/59 100 06/22/17 22:57 102 H 22 124/62 100 06/22/17 22:00 97 H 18 108/51 100 06/22/17 21:00 107 H 16 107/53 94 06/22/17 20:00 107 H 32 H 116/90 80 L 06/22/17 19:50 98.8 F 06/22/17 19:30 107 H 06/22/17 19:00 109 H 17 122/52 84 06/22/17 18:21 114 H 112/85 06/22/17 18:00 115 H 18 109/76 06/22/17 17:00 99 H 26 H 131/74 06/22/17 16:00 98.5 F 110 H 102 H 18 112/68 100 06/22/17 15:00 104 H 17 113/62 100 - Physical Examination General: No Apparent Distress Neck: Positive: neck supple Cardiac: Positive: Reg Rate and Rhythm Lungs: Positive: clear to auscultation Abdomen: Positive: Soft, Active Bowel Sounds - Labs and Meds CBC 06/23/17 Range/Units 06:38 Hgb 7.6 L (11.8-15.2) gm/dl Hct 23.9 L (35.5-45.6) % Comprehensive Metabolic Panel 06/23/17 Range/Units 06:38 Sodium 143 (137-145) mmol/L Potassium 3.8 (3.6-5.0) mmol/L Chloride 101.4 (98-107) mmol/L Carbon Dioxide 25 (22-30) mmol/L BUN 15 (9-20) mg/dL Creatinine 0.9 (0.8-1.5) mg/dL Glucose 167 H (75-100) mg/dL Calcium 8.0 L (8.4-10.2) mg/dL - Imaging and Cardiology EKG: report reviewed (mild volume overload)
--- NOTE | 2017-06-23 15:04 | Progress Note ---
Assessment and Plan Patient is a 76 year old male with left AKA, 05/22/17. Has a hx of PAD, S/P multiple vascular surgeries including a TMA with a wound VAC that malfunctioned leading to blood loss with blood tranfusion. S/p re-do bypass graft, as the distal portion of the bypass of the left tibia was infected and bypass tissue friable and would not hold repair sutures. Right Arm vein harvested and distal portion of the tibail artery bypassed around to lower portion of the [employer]. Patient also has history of CAD CABG years ago, ischemic cardiomyopathy with ejection fraction of 40-45% 05/2017, hypertension, diabetes, hyperlipidemia, presents from to long term with hypotension,fever and infected left foot TMA and ischemia despite multiple revalorization procedures hence left AKA. -s/p Left AKA 05/22/17 from infected TMA site and gangrenous left foot. -Septic shock w/possible hemorrhagic shock - improving -Infected hematoma of the left femoral; with wound vac hematoma and infected left femoral tibial graft s/p revision of the same 06/14/17- leukocytosis -Acute blood loss anemia- resolved -Uncontrolled diabetes mellitus- improving on insulin drip -CAD s/p CABG -Tachycardia with PVC -Diabetic wound -Hypernatremia. -S/P Left TMA amputation - healing poorly -S/P wound vac to left groin wound infection site. - PLAN * S/p Redo of left Popliteal * Shock resolved with iv hydration * Free water for hypernatrmia * S/P 5 units PRBC, Monitor h/h, Transfuse as needed * Continue IV abx, wound cultures, blood cultures yielded E.coli, ID following * Cardiology consult and monitor Electrolytes * 4 hrs. Add lantus * Discussed with pt's daughter. Pt is DNR/DNI * DVT/GI prophylaxis: SCD. Just had bleeding episode refquiring blood xfusion. Subjective Date of service: 06/23/17 Principal diagnosis: Septic shock, PAD s/p left limb salvage procedures Interval history: Lying quietly in bed pleasantly confused Objective - Constitutional Vitals: Vital Signs - 12hr 06/23/17 06/23/17 06/23/17 03:00 03:44 04:00 Temperature 100.4 F H Pulse Rate 100 H 112 H 102 H Respiratory 20 19 Rate Blood Pressure 112/58 112/46 114/59 O2 Sat by Pulse 100 100 Oximetry 06/23/17 06/23/17 06/23/17 05:00 06:00 07:00 Temperature Pulse Rate 105 H 101 H 106 H Respiratory 20 19 24 Rate Blood Pressure 110/55 118/58 115/58 O2 Sat by Pulse 100 100 100 Oximetry 06/23/17 06/23/17 06/23/17 07:29 08:00 10:51 Temperature 99.4 F Pulse Rate 104 H Respiratory Rate Blood Pressure 112/56 O2 Sat by Pulse 100 Oximetry 06/23/17 12:00 Temperature 99.1 F Pulse Rate Respiratory Rate Blood Pressure O2 Sat by Pulse Oximetry General appearance: Present: no acute distress, well-nourished - EENT Eyes: PERRL, EOM intact Ears: bilateral: normal - Neck Neck: supple, normal ROM - Respiratory Respiratory effort: normal Respiratory: bilateral: CTA - Breasts Breasts: normal - Cardiovascular Rhythm: regular Heart Sounds: Present: S1 & S2. Absent: gallop, rub Extremities: pulses intact, No edema, normal color, Full ROM - Gastrointestinal General gastrointestinal: Present: soft, non-tender, non-distended, normal bowel sounds - Integumentary Integumentary: clear, warm, dry - Musculoskeletal Musculoskeletal: generalized weakness - Neurologic Neurologic: moves all extremities (Except the left upper extremity from where a vein was havested for the ) - Psychiatric Psychiatric: appropriate mood/affect, other (confused) - Labs CBC & Chem 7: 06/23/17 06:38 06/23/17 06:38 Labs: Abnormal lab results 06/22/17 06/23/17 06/23/17 Range/Units 17:05 00:23 05:35 Hgb (11.8-15.2) gm/dl Hct (35.5-45.6) % Glucose (75-100) mg/dL POC Glucose 219 H 186 H 178 H (70-105) Calcium (8.4-10.2) mg/dL 06/23/17 06/23/17 06/23/17 Range/Units 06:38 06:38 12:23 Hgb 7.6 L (11.8-15.2) gm/dl Hct 23.9 L (35.5-45.6) % Glucose 167 H (75-100) mg/dL POC Glucose 232 H (70-105) Calcium 8.0 L (8.4-10.2) mg/dL
[2017-06-23] MEDS ORDERED: NACL 0.9% 500 ML 500 ML IV NR (15:40)
--- NOTE | 2017-06-23 18:14 | Progress Note ---
Assessment and Plan - Patient Problems (1) Sepsis Current Visit: Yes Status: Acute Qualifiers: Sepsis type: sepsis due to unspecified organism Qualified Code(s): A41.9 - Sepsis, unspecified organism Plan to address problem: 1. Patient is now s/p left AKA and wound infection has been surgically resolved. 2. Continue local care to groin wound and topical antibiotics. 3. Will discontinue Meropenem and monitor clinically for signs of infection/ sepsis. (2) PAD (peripheral artery disease) Onset Date: 08/22/16 Current Visit: No Status: Chronic Plan to address problem: Patient is s/p left AKA with well-vascularized flaps per operative report. Subjective Date of service: 06/23/17 Principal diagnosis: Septic shock, PAD s/p left limb salvage procedures Interval history: Patient underwent a left AKA yesterday. Remains in ICU. Objective - Constitutional Vitals: Vital Signs Temp Pulse Resp BP Pulse Ox 98.9 F 100 H 17 114/61 99 06/23/17 16:00 06/23/17 18:00 06/23/17 18:00 06/23/17 18:00 06/23/17 16:00 Temperature -Last 24 Hours Temperature 98.9 F Temperature 99.1 F Temperature 99.4 F Temperature 100.4 F Temperature 97.6 F Temperature 98.8 F General appearance: Present: no acute distress, well-nourished - Respiratory Respiratory effort: normal Respiratory: bilateral: CTA - Cardiovascular Rhythm: regular Heart Sounds: Present: systolic murmur Extremity abnormal: edema (mild edema of right leg, otherwise unremarkable), other (left AKA with wrapped stump; wound vac is removed from open wound at left groin, no purulence) - Gastrointestinal General gastrointestinal: Present: soft, non-distended, hypoactive bowel sounds - Genitourinary Male genitourinary: normal ([place] with yellow urine) - Integumentary Integumentary: clear, no rash - Neurologic Neurologic: no focal deficits - Labs CBC & Chem 7: 06/23/17 06:38 06/23/17 06:38 Labs: Abnormal lab results 06/23/17 06/23/17 06/23/17 Range/Units 00:23 05:35 06:38 Hgb 7.6 L (11.8-15.2) gm/dl Hct 23.9 L (35.5-45.6) % Glucose (75-100) mg/dL POC Glucose 186 H 178 H (70-105) Calcium (8.4-10.2) mg/dL 06/23/17 06/23/17 06/23/17 Range/Units 06:38 12:23 17:43 Hgb (11.8-15.2) gm/dl Hct (35.5-45.6) % Glucose 167 H (75-100) mg/dL POC Glucose 232 H 141 H (70-105) Calcium 8.0 L (8.4-10.2) mg/dL Microbiology 06/14/17 Unknown Leg - Left Anaerobic Culture - Final Bacteroides Distasonis Bacteroides Distasonis#2 06/14/17 Unknown Leg - Left Surgical Biopsy Culture - Final Escherichia Coli Klebsiella Pneumoniae 06/14/17 Unknown Leg - Left Surgical Culture - Final Escherichia Coli Klebsiella Pneumoniae 06/12/17 19:35 Peripheral/Venous Blood Culture - Final NO GROWTH AFTER 5 DAYS 06/12/17 18:17 Peripheral/Venous Blood Culture - Final NO GROWTH AFTER 5 DAYS 06/14/17 Unknown Tracheal Aspirate Sputum Culture - Final 06/12/17 19:11 Urine,Catheterized - Cytoscopic/Bilateral Urine Culture - Final NO GROWTH AFTER 48 HOURS
[2017-06-23] MEDS: TRIPLE ANTIBIOTIC TP SCH (21:38)
[2017-06-23] MEDS: LEVEMIR SUB-Q SCH (21:39)
[2017-06-23] MEDS ORDERED: LASIX IV ONE (22:16)
[2017-06-24] MEDS: DILAUDID IV PRN ×2 (00:04→06:22)
[2017-06-24] MEDS: NOVOLOG SUB-Q SCH ×3 (00:05→12:24)
[2017-06-24] MEDS: CARDIZEM PO SCH ×3 (02:58→19:40)
[2017-06-24 05:09] LABS: Hematocrit 26.8 % (35.5-45.6); Hemoglobin 8.6 gm/dl (11.8-15.2); Mean Corpuscular HGB Conc 32 % (32-34); Mean Corpuscular Hemoglobin 29 pg (28-32); Mean Corpuscular Volume 89 fl (84-94); Platelet Count 262 K/mm3 (140-440); Red Blood Count 3.01 M/mm3 (3.65-5.03); White Blood Count 11.2 K/mm3 (4.5-11.0)
[2017-06-24 05:33] LABS: Alanine Aminotransferase 13 units/L (7-56); Albumin 2.1 g/dL (3.9-5); Albumin/Globulin Ratio 0.6 %; Alkaline Phosphatase 65 units/L (35-129); Blood Urea Nitrogen 14 mg/dL (9-20); Calcium 8.1 mg/dL (8.4-10.2); Carbon Dioxide 32 mmol/L (22-30); Chloride 102.7 mmol/L (98-107); Glucose 54 mg/dL (75-100); Potassium 3.2 mmol/L (3.6-5.0); Sodium 146 mmol/L (137-145); Total Protein 5.5 g/dL (6.3-8.2)
[2017-06-24 05:50] LABS: Anion Gap 15 mmol/L
[2017-06-24 06:10] LABS: Basophils % (Manual) 0 % (0.0-1.8); Blastocytes % (Manual) 0 %
[2017-06-24 06:11] LABS: Anisocytosis 1+; Diff Status Complete
--- NOTE | 2017-06-24 10:24 | Progress Note ---
Assessment and Plan Septic shock: Improved. Acute blood loss anemia Hyponatremia PVD/PAD status post left AKA Hx of CAD s/p CABG fixed inferior and inferolateral wall defect consistent with prior [place] but no reversible ischemia on MPI 05/2017 Ischemic cardiomyopathy ejection fraction 40-45% on echocardiogram 05/2017 Hypertension Diabetes Hyperlipidemia Multifocal atrial tachycardia and frequent atrial ectopy. DNR status Recommend: Continue supportive care Conservative cardiac management. Subjective Date of service: 06/24/17 Principal diagnosis: Septic shock, PAD s/p left limb salvage procedures Interval history: No cardiac events. Remains in sinus rhythm with frequent atrial ectopy. Objective Vital Signs Temp Pulse Pulse Resp BP Pulse Ox 06/24/17 08:00 97.7 F 06/24/17 06:00 103 H 18 127/68 97 06/24/17 05:00 108 H 21 123/30 96 06/24/17 04:00 99.0 F 97 H 19 125/75 96 06/24/17 03:00 100 H 17 125/70 99 06/24/17 02:58 97 H 116/69 06/24/17 02:00 98 H 19 127/64 98 06/24/17 01:11 98.7 F 95 H 18 114/64 97 06/24/17 01:00 90 18 114/64 98 06/24/17 00:28 97.8 F 98 H 18 127/62 98 06/24/17 00:00 99.4 F 101 H 18 127/70 99 06/23/17 23:58 97.8 F 100 H 20 132/79 98 06/23/17 23:28 99.0 F 97 H 18 131/65 98 06/23/17 23:00 100 H 15 124/67 99 06/23/17 22:58 98.4 F 99 H 18 127/63 96 06/23/17 22:48 100 H 14 130/68 98 06/23/17 22:44 98.6 F 102 H 17 122/67 98 06/23/17 22:00 95 H 20 128/72 96 06/23/17 21:26 96 06/23/17 21:00 91 H 24 111/60 06/23/17 20:00 99.1 F 97 H 15 121/62 98 06/23/17 19:00 99 H 12 107/54 06/23/17 18:17 96 H 114/60 06/23/17 18:00 100 H 17 114/61 06/23/17 17:00 98 H 17 121/60 06/23/17 16:00 98.9 F 97 H 20 111/55 99 06/23/17 15:00 87 16 98/47 100 06/23/17 14:00 91 H 15 106/49 06/23/17 13:00 101 H 26 H 115/63 79 L 06/23/17 12:00 99.1 F 99 H 105 H 21 120/59 100 06/23/17 11:00 104 H 25 H 127/64 100 06/23/17 10:51 104 H 112/56 - Physical Examination General: No Apparent Distress Neck: Positive: neck supple Cardiac: Positive: Reg Rate and Rhythm (frequent ectopy) Lungs: Positive: clear to auscultation Abdomen: Positive: Soft, Active Bowel Sounds - Labs and Meds Cardiac Enzymes 06/24/17 Range/Units 04:00 AST 15 (5-40) units/L CBC 06/24/17 Range/Units 04:00 WBC 11.2 H (4.5-11.0) K/mm3 RBC 3.01 L (3.65-5.03) M/mm3 Hgb 8.6 L (11.8-15.2) gm/dl Hct 26.8 L (35.5-45.6) % Plt Count 262 (140-440) K/mm3 Comprehensive Metabolic Panel 06/24/17 Range/Units 04:00 Sodium 146 H (137-145) mmol/L Potassium 3.2 L (3.6-5.0) mmol/L Chloride 102.7 (98-107) mmol/L Carbon Dioxide 32 H D (22-30) mmol/L BUN 14 (9-20) mg/dL Creatinine 0.8 (0.8-1.5) mg/dL Glucose 54 L (75-100) mg/dL Calcium 8.1 L (8.4-10.2) mg/dL AST 15 (5-40) units/L ALT 13 (7-56) units/L Alkaline Phosphatase 65 (35-129) units/L Total Protein 5.5 L (6.3-8.2) g/dL Albumin 2.1 L (3.9-5) g/dL - Imaging and Cardiology EKG: report reviewed (mild volume overload)
[2017-06-24] MEDS: TRIPLE ANTIBIOTIC TP SCH ×2 (10:28→21:39)
[2017-06-24] MEDS: PEPCID PO SCH ×2 (10:28→21:39)
--- NOTE | 2017-06-24 13:38 | Progress Note ---
Assessment and Plan Patient is a 76 year old male with left AKA, 05/22/17. Has a hx of PAD, S/P multiple vascular surgeries including a TMA with a wound VAC that malfunctioned leading to blood loss with blood tranfusion. S/p re-do bypass graft on 06/14/17, as the distal portion of the bypass of the left tibia was infected and bypass tissue friable and would not hold repair sutures. Right Arm vein harvested and distal portion of the tibail artery bypassed around to lower portion of the [employer]. Patient also has history of CAD CABG years ago, ischemic cardiomyopathy with ejection fraction of 40-45% 05/2017, hypertension, diabetes, hyperlipidemia , presents from to correction with hypotension,fever and infected left foot TMA and ischemia despite multiple revalorization procedures hence left AKA. Fever resolved -s/p Left AKA 05/22/17 from infected TMA site and gangrenous left foot. -Septic shock w/possible hemorrhagic shock -resolved -Infected hematoma of the left femoral; with wound vac in place over the left groin hematoma -leukocytosis - improving -Acute blood loss anemia - resolved -Uncontrolled diabetes mellitus - improving on insulin drip -CAD s/p CABG -Tachycardia with PVC - multifactorial -Hypernatremia commence D5W. and optimize glycemic control -S/P wound vac to left groin wound infection site. PLAN * Wound care left AKA site * Free water for hypernatrmia * S/P 6 units PRBC, Monitor h/h, Transfuse as needed * Discontinued IV abx, by ID as source of infection has been remove diwth wound cultures, blood cultures yielded E.coli, ID following * Cardiology consult and monitor Electrolytes * 4 hrs. Add lantus * Discussed with pt's daughter. Pt is DNR/DNI * DVT/GI prophylaxis: SCD. Just had bleeding episode refquiring blood xfusion. Therefore no anticoagulation for now Subjective Date of service: 06/24/17 Principal diagnosis: Septic shock, PAD s/p left limb salvage procedures Interval history: Lying quietly in bed. Wound Vac on the left groin being changed by Dr. Zimmerman. Still pleasantly confused Objective - Constitutional Vitals: Vital Signs - 12hr 06/24/17 06/24/17 06/24/17 02:00 02:58 03:00 Temperature Pulse Rate 98 H 97 H 100 H Respiratory 19 17 Rate Blood Pressure 127/64 116/69 125/70 O2 Sat by Pulse 98 99 Oximetry 06/24/17 06/24/17 06/24/17 04:00 05:00 06:00 Temperature 99.0 F Pulse Rate 97 H 108 H 103 H Respiratory 19 21 18 Rate Blood Pressure 125/75 123/30 127/68 O2 Sat by Pulse 96 96 97 Oximetry 06/24/17 06/24/17 06/24/17 08:00 10:30 11:12 Temperature 97.7 F Pulse Rate 109 H Respiratory Rate Blood Pressure O2 Sat by Pulse 97 Oximetry 06/24/17 12:00 Temperature 98.2 F Pulse Rate Respiratory Rate Blood Pressure O2 Sat by Pulse Oximetry General appearance: Present: no acute distress - EENT Eyes: PERRL - Neck Neck: supple - Respiratory Respiratory effort: normal Respiratory: bilateral: CTA - Cardiovascular Rhythm: regular Heart Sounds: Present: S1 & S2. Absent: gallop, rub Extremities: normal color, Full ROM Extremity abnormal: other (left AKA) - Gastrointestinal General gastrointestinal: Present: soft, non-tender, normal bowel sounds - Integumentary Integumentary: warm ( wound vac on the left groin) - Musculoskeletal Musculoskeletal: 1, strength equal bilaterally - Neurologic Neurologic: moves all extremities (except the right upper limp secondry to surery from harvested vain) - Psychiatric Psychiatric: appropriate mood/affect, intact judgment & insight - Labs CBC & Chem 7: 06/24/17 04:00 06/24/17 04:00 Labs: Abnormal lab results 06/15/17 06/23/17 06/23/17 Range/Units 11:35 17:00 17:43 WBC (4.5-11.0) K/mm3 RBC (3.65-5.03) M/mm3 Hgb (11.8-15.2) gm/dl Hct (35.5-45.6) % Seg Neuts % (Manual) (40.0-70.0) % Lymphocytes % (Manual) (13.4-35.0) % Monocytes % (Manual) (0.0-7.3) % Nucleated RBC % (0.0-0.9) % Seg Neutrophils # Man (1.8-7.7) K/mm3 Monocytes # (Manual) (0.0-0.8) K/mm3 Sodium (137-145) mmol/L Potassium (3.6-5.0) mmol/L Carbon Dioxide (22-30) mmol/L Glucose (75-100) mg/dL POC Glucose 141 H (70-105) Calcium (8.4-10.2) mg/dL Total Protein (6.3-8.2) g/dL Albumin (3.9-5) g/dL Crossmatch See Detail See Detail 06/23/17 06/23/17 06/23/17 Range/Units 20:59 21:06 23:21 WBC (4.5-11.0) K/mm3 RBC (3.65-5.03) M/mm3 Hgb (11.8-15.2) gm/dl Hct (35.5-45.6) % Seg Neuts % (Manual) (40.0-70.0) % Lymphocytes % (Manual) (13.4-35.0) % Monocytes % (Manual) (0.0-7.3) % Nucleated RBC % (0.0-0.9) % Seg Neutrophils # Man (1.8-7.7) K/mm3 Monocytes # (Manual) (0.0-0.8) K/mm3 Sodium (137-145) mmol/L Potassium (3.6-5.0) mmol/L Carbon Dioxide (22-30) mmol/L Glucose (75-100) mg/dL POC Glucose 179 H 170 H 186 H (70-105) Calcium (8.4-10.2) mg/dL Total Protein (6.3-8.2) g/dL Albumin (3.9-5) g/dL Crossmatch 06/24/17 06/24/17 06/24/17 Range/Units 04:00 04:00 05:34 WBC 11.2 H (4.5-11.0) K/mm3 RBC 3.01 L (3.65-5.03) M/mm3 Hgb 8.6 L (11.8-15.2) gm/dl Hct 26.8 L (35.5-45.6) % Seg Neuts % (Manual) 75.0 H (40.0-70.0) % Lymphocytes % (Manual) 13.0 L (13.4-35.0) % Monocytes % (Manual) 11.0 H (0.0-7.3) % Nucleated RBC % 1.0 H (0.0-0.9) % Seg Neutrophils # Man 8.4 H (1.8-7.7) K/mm3 Monocytes # (Manual) 1.2 H (0.0-0.8) K/mm3 Sodium 146 H (137-145) mmol/L Potassium 3.2 L (3.6-5.0) mmol/L Carbon Dioxide 32 H D (22-30) mmol/L Glucose 54 L (75-100) mg/dL POC Glucose 43 L (70-105) Calcium 8.1 L (8.4-10.2) mg/dL Total Protein 5.5 L (6.3-8.2) g/dL Albumin 2.1 L (3.9-5) g/dL Crossmatch 06/24/17 Range/Units 05:36 WBC (4.5-11.0) K/mm3 RBC (3.65-5.03) M/mm3 Hgb (11.8-15.2) gm/dl Hct (35.5-45.6) % Seg Neuts % (Manual) (40.0-70.0) % Lymphocytes % (Manual) (13.4-35.0) % Monocytes % (Manual) (0.0-7.3) % Nucleated RBC % (0.0-0.9) % Seg Neutrophils # Man (1.8-7.7) K/mm3 Monocytes # (Manual) (0.0-0.8) K/mm3 Sodium (137-145) mmol/L Potassium (3.6-5.0) mmol/L Carbon Dioxide (22-30) mmol/L Glucose (75-100) mg/dL POC Glucose 54 L (70-105) Calcium (8.4-10.2) mg/dL Total Protein (6.3-8.2) g/dL Albumin (3.9-5) g/dL Crossmatch
--- NOTE | 2017-06-24 13:50 | Progress Note ---
Assessment and Plan Acute respiratory failure on nasal cannula oxygen .No chest congestion or complains Sepsis/shock. Completing antibiotics. No fever since yesterday on record at this time Blood loss anemia.controlled PAD AMEYA Hypernatremia. Improving Metabolic/toxic encephalopathy CHF,ischemic MAT Recommendations Continue antibiotics Continue monitoring serum electrolytes and adjust or replace as needed Monitor for hypotension and changes in urine output Wound care Aspiration precautions Patient currently on DO NOT RESUSCITATE status. No family at the bedside for case discussion. Critical care time was 31 minutes of [id number] evaluation and coordination of care Subjective Principal diagnosis: Septic shock, PAD s/p left limb salvage procedures Interval history: No cough ,chest pain or SOB Objective Vital Signs - 12hr 06/24/17 06/24/17 06/24/17 02:00 02:58 03:00 Temperature Pulse Rate 98 H 97 H 100 H Respiratory 19 17 Rate Blood Pressure 127/64 116/69 125/70 O2 Sat by Pulse 98 99 Oximetry 06/24/17 06/24/17 06/24/17 04:00 05:00 06:00 Temperature 99.0 F Pulse Rate 97 H 108 H 103 H Respiratory 19 21 18 Rate Blood Pressure 125/75 123/30 127/68 O2 Sat by Pulse 96 96 97 Oximetry 06/24/17 06/24/17 06/24/17 08:00 10:30 11:12 Temperature 97.7 F Pulse Rate 109 H Respiratory Rate Blood Pressure O2 Sat by Pulse 97 Oximetry 06/24/17 12:00 Temperature 98.2 F Pulse Rate Respiratory Rate Blood Pressure O2 Sat by Pulse Oximetry Constitutional: no acute distress, alert, asleep Eyes: non-icteric Neck: supple Effort: normal Ascultation: Bilateral: clear, diminished breath sounds Percussion: Bilateral: not dull Cardiovascular: regular rate and rhythm Gastrointestinal: normoactive bowel sounds, soft, non-tender, non-distended Extremities: no cyanosis, other (left BKA) Neurologic: non-focal exam (? weakness RUE) Psychiatric: other (unable to evaluate) CBC and BMP: 06/24/17 04:00 06/24/17 04:00 ABG, PT/INR, D-dimer: ABG POC ABG pH 7.424 (7.35-7.45) 06/16/17 11:28 POC ABG pCO2 30.3 (35-45) L 06/16/17 11:28 POC ABG pO2 118 (80-105) H 06/16/17 11:28 POC ABG HCO3 19.8 06/16/17 11:28 POC ABG Total CO2 21 06/16/17 11:28 POC ABG O2 Sat 99 06/16/17 11:28 PT/INR, D-dimer PT 15.9 Sec. (12.2-14.9) H 06/14/17 07:42 INR 1.28 (0.87-1.13) H 06/14/17 07:42 Abnormal lab findings: Abnormal Labs 06/13/17 06/13/17 06/13/17 00:18 05:20 10:28 WBC RBC Hgb 6.3 L 7.1 L Hct 19.6 L* 22.1 L RDW Plt Count Lymph % (Auto) [facility] % (Auto) Lymph # [facility] # Seg Neutrophils % Seg Neuts % (Manual) Lymphocytes % (Manual) Monocytes % (Manual) Nucleated RBC % Seg Neutrophils # Seg Neutrophils # Man Lymphocytes # (Manual) Monocytes # (Manual) PT INR POC ABG pH POC ABG pCO2 POC ABG pO2 Sodium Potassium Chloride Carbon Dioxide BUN Creatinine Glucose POC Glucose 289 H Calcium AST Total Protein Albumin Vancomycin Trough Crossmatch 06/13/17 06/13/17 06/13/17 12:00 16:20 18:45 WBC RBC Hgb 9.9 L 8.8 L Hct 28.8 L D 26.5 L RDW Plt Count Lymph % (Auto) [facility] % (Auto) Lymph # [facility] # Seg Neutrophils % Seg Neuts % (Manual) Lymphocytes % (Manual) Monocytes % (Manual) Nucleated RBC % Seg Neutrophils # Seg Neutrophils # Man Lymphocytes # (Manual) Monocytes # (Manual) PT INR POC ABG pH POC ABG pCO2 POC ABG pO2 Sodium Potassium Chloride Carbon Dioxide BUN Creatinine Glucose POC Glucose 292 H Calcium AST Total Protein Albumin Vancomycin Trough Crossmatch 06/13/17 06/13/17 06/13/17 18:49 21:13 Unknown WBC RBC Hgb 9.3 L Hct 27.8 L RDW Plt Count Lymph % (Auto) [facility] % (Auto) Lymph # [facility] # Seg Neutrophils % Seg Neuts % (Manual) Lymphocytes % (Manual) Monocytes % (Manual) Nucleated RBC % Seg Neutrophils # Seg Neutrophils # Man Lymphocytes # (Manual) Monocytes # (Manual) PT INR POC ABG pH POC ABG pCO2 POC ABG pO2 Sodium Potassium Chloride Carbon Dioxide BUN Creatinine Glucose POC Glucose 252 H 234 H Calcium AST Total Protein Albumin Vancomycin Trough Crossmatch 06/14/17 06/14/17 06/14/17 00:24 01:53 04:44 WBC RBC Hgb 8.5 L 8.2 L Hct 25.7 L 25.1 L RDW Plt Count Lymph % (Auto) [facility] % (Auto) Lymph # [facility] # Seg Neutrophils % Seg Neuts % (Manual) Lymphocytes % (Manual) Monocytes % (Manual) Nucleated RBC % Seg Neutrophils # Seg Neutrophils # Man Lymphocytes # (Manual) Monocytes # (Manual) PT INR POC ABG pH POC ABG pCO2 POC ABG pO2 Sodium Potassium Chloride Carbon Dioxide BUN Creatinine Glucose POC Glucose 213 H Calcium AST Total Protein Albumin Vancomycin Trough Crossmatch 06/14/17 06/14/17 06/14/17 05:49 07:42 07:42 WBC 12.2 H RBC 2.77 L Hgb 8.1 L Hct 25.0 L RDW 15.7 H Plt Count Lymph % (Auto) [facility] % (Auto) Lymph # [facility] # Seg Neutrophils % Seg Neuts % (Manual) Lymphocytes % (Manual) Monocytes % (Manual) Nucleated RBC % Seg Neutrophils # Seg Neutrophils # Man Lymphocytes # (Manual) Monocytes # (Manual) PT 15.9 H INR 1.28 H POC ABG pH POC ABG pCO2 POC ABG pO2 Sodium Potassium Chloride Carbon Dioxide BUN Creatinine Glucose POC Glucose 218 H Calcium AST Total Protein Albumin Vancomycin Trough Crossmatch 06/14/17 06/14/17 06/14/17 07:42 14:31 16:45 WBC 14.0 H RBC 3.61 L Hgb 10.9 L Hct 32.8 L D RDW 15.8 H Plt Count Lymph % (Auto) [facility] % (Auto) Lymph # [facility] # Seg Neutrophils % Seg Neuts % (Manual) Lymphocytes % (Manual) Monocytes % (Manual) Nucleated RBC % Seg Neutrophils # Seg Neutrophils # Man Lymphocytes # (Manual) Monocytes # (Manual) PT INR POC ABG pH POC ABG pCO2 POC ABG pO2 Sodium 146 H D Potassium Chloride 110.2 H Carbon Dioxide 15 L D BUN 25 H Creatinine Glucose 185 H POC Glucose 235 H Calcium 8.0 L AST Total Protein 5.1 L Albumin 2.0 L Vancomycin Trough Crossmatch 06/14/17 06/14/17 06/14/17 19:34 19:45 19:45 WBC 13.1 H RBC 3.33 L Hgb 9.9 L Hct 29.7 L RDW 15.7 H Plt Count 126 L Lymph % (Auto) [facility] % (Auto) Lymph # [facility] # Seg Neutrophils % Seg Neuts % (Manual) Lymphocytes % (Manual) Monocytes % (Manual) Nucleated RBC % Seg Neutrophils # Seg Neutrophils # Man Lymphocytes # (Manual) Monocytes # (Manual) PT INR POC ABG pH POC ABG pCO2 POC ABG pO2 Sodium 148 H Potassium 5.7 H D Chloride 108.5 H Carbon Dioxide 12 L BUN 29 H Creatinine 1.7 H Glucose 324 H POC Glucose 296 H Calcium 7.9 L AST Total Protein Albumin Vancomycin Trough Crossmatch 06/14/17 06/14/17 06/14/17 20:05 21:53 23:06 WBC RBC Hgb Hct RDW Plt Count Lymph % (Auto) [facility] % (Auto) Lymph # [facility] # Seg Neutrophils % Seg Neuts % (Manual) Lymphocytes % (Manual) Monocytes % (Manual) Nucleated RBC % Seg Neutrophils # Seg Neutrophils # Man Lymphocytes # (Manual) Monocytes # (Manual) PT INR POC ABG pH 7.241 L 7.298 L POC ABG pCO2 32.3 L 26.8 L POC ABG pO2 550 H 303 H Sodium Potassium Chloride Carbon Dioxide BUN Creatinine Glucose POC Glucose 259 H Calcium AST Total Protein Albumin Vancomycin Trough Crossmatch 06/15/17 06/15/17 06/15/17 02:08 06:00 06:15 WBC RBC Hgb 8.8 L Hct 26.4 L RDW Plt Count Lymph % (Auto) [facility] % (Auto) Lymph # [facility] # Seg Neutrophils % Seg Neuts % (Manual) Lymphocytes % (Manual) Monocytes % (Manual) Nucleated RBC % Seg Neutrophils # Seg Neutrophils # Man Lymphocytes # (Manual) Monocytes # (Manual) PT INR POC ABG pH POC ABG pCO2 POC ABG pO2 Sodium Potassium Chloride Carbon Dioxide BUN Creatinine Glucose POC Glucose 334 H 233 H Calcium AST Total Protein Albumin Vancomycin Trough Crossmatch 06/15/17 06/15/17 06/15/17 06:15 06:54 09:32 WBC RBC Hgb Hct RDW Plt Count Lymph % (Auto) [facility] % (Auto) Lymph # [facility] # Seg Neutrophils % Seg Neuts % (Manual) Lymphocytes % (Manual) Monocytes % (Manual) Nucleated RBC % Seg Neutrophils # Seg Neutrophils # Man Lymphocytes # (Manual) Monocytes # (Manual) PT INR POC ABG pH POC ABG pCO2 34.4 L POC ABG pO2 191 H Sodium 151 H Potassium Chloride 114.7 H Carbon Dioxide 18 L BUN 29 H Creatinine 1.8 H Glucose 259 H POC Glucose 229 H Calcium 7.7 L AST Total Protein Albumin Vancomycin Trough Crossmatch 06/15/17 06/15/17 06/15/17 11:35 12:32 13:36 WBC RBC Hgb Hct RDW Plt Count Lymph % (Auto) [facility] % (Auto) Lymph # [facility] # Seg Neutrophils % Seg Neuts % (Manual) Lymphocytes % (Manual) Monocytes % (Manual) Nucleated RBC % Seg Neutrophils # Seg Neutrophils # Man Lymphocytes # (Manual) Monocytes # (Manual) PT INR POC ABG pH POC ABG pCO2 POC ABG pO2 Sodium Potassium Chloride Carbon Dioxide BUN Creatinine Glucose POC Glucose 202 H 189 H Calcium AST Total Protein Albumin Vancomycin Trough Crossmatch See Detail 06/15/17 06/15/17 06/15/17 14:30 15:32 16:28 WBC RBC Hgb Hct RDW Plt Count Lymph % (Auto) [facility] % (Auto) Lymph # [facility] # Seg Neutrophils % Seg Neuts % (Manual) Lymphocytes % (Manual) Monocytes % (Manual) Nucleated RBC % Seg Neutrophils # Seg Neutrophils # Man Lymphocytes # (Manual) Monocytes # (Manual) PT INR POC ABG pH POC ABG pCO2 POC ABG pO2 Sodium Potassium Chloride Carbon Dioxide BUN Creatinine Glucose POC Glucose 142 H 106 H 119 H Calcium AST Total Protein Albumin Vancomycin Trough Crossmatch 06/15/17 06/15/17 06/15/17 17:36 19:30 20:51 WBC RBC Hgb Hct RDW Plt Count Lymph % (Auto) [facility] % (Auto) Lymph # [facility] # Seg Neutrophils % Seg Neuts % (Manual) Lymphocytes % (Manual) Monocytes % (Manual) Nucleated RBC % Seg Neutrophils # Seg Neutrophils # Man Lymphocytes # (Manual) Monocytes # (Manual) PT INR POC ABG pH POC ABG pCO2 POC ABG pO2 Sodium Potassium Chloride Carbon Dioxide BUN Creatinine Glucose POC Glucose 121 H 109 H 112 H Calcium AST Total Protein Albumin Vancomycin Trough Crossmatch 06/15/17 06/15/17 06/16/17 21:42 23:27 01:11 WBC RBC Hgb Hct RDW Plt Count Lymph % (Auto) [facility] % (Auto) Lymph # [facility] # Seg Neutrophils % Seg Neuts % (Manual) Lymphocytes % (Manual) Monocytes % (Manual) Nucleated RBC % Seg Neutrophils # Seg Neutrophils # Man Lymphocytes # (Manual) Monocytes # (Manual) PT INR POC ABG pH POC ABG pCO2 POC ABG pO2 Sodium Potassium Chloride Carbon Dioxide BUN Creatinine Glucose POC Glucose 122 H 142 H 162 H Calcium AST Total Protein Albumin Vancomycin Trough Crossmatch 06/16/17 06/16/17 06/16/17 02:03 02:57 04:05 WBC RBC Hgb Hct RDW Plt Count Lymph % (Auto) [facility] % (Auto) Lymph # [facility] # Seg Neutrophils % Seg Neuts % (Manual) Lymphocytes % (Manual) Monocytes % (Manual) Nucleated RBC % Seg Neutrophils # Seg Neutrophils # Man Lymphocytes # (Manual) Monocytes # (Manual) PT INR POC ABG pH POC ABG pCO2 POC ABG pO2 Sodium Potassium Chloride Carbon Dioxide BUN Creatinine Glucose POC Glucose 117 H 106 H 108 H Calcium AST Total Protein Albumin Vancomycin Trough Crossmatch 06/16/17 06/16/17 06/16/17 05:09 05:23 06:03 WBC RBC Hgb Hct RDW Plt Count Lymph % (Auto) [facility] % (Auto) Lymph # [facility] # Seg Neutrophils % Seg Neuts % (Manual) Lymphocytes % (Manual) Monocytes % (Manual) Nucleated RBC % Seg Neutrophils # Seg Neutrophils # Man Lymphocytes # (Manual) Monocytes # (Manual) PT INR POC ABG pH POC ABG pCO2 POC ABG pO2 Sodium Potassium Chloride Carbon Dioxide BUN Creatinine Glucose POC Glucose 114 H 125 H 138 H Calcium AST Total Protein Albumin Vancomycin Trough Crossmatch 06/16/17 06/16/17 06/16/17 06:25 06:25 07:07 WBC 14.7 H RBC 3.28 L Hgb 9.8 L Hct 29.1 L RDW 15.7 H Plt Count 117 L Lymph % (Auto) [facility] % (Auto) Lymph # [facility] # Seg Neutrophils % Seg Neuts % (Manual) 81.0 H Lymphocytes % (Manual) 3.0 L Monocytes % (Manual) 15.0 H Nucleated RBC % Seg Neutrophils # Seg Neutrophils # Man 11.9 H Lymphocytes # (Manual) 0.4 L Monocytes # (Manual) 2.2 H PT INR POC ABG pH POC ABG pCO2 POC ABG pO2 Sodium 155 H Potassium Chloride 117.9 H Carbon Dioxide BUN 22 H Creatinine Glucose 107 H POC Glucose 127 H Calcium 7.9 L AST 57 H Total Protein 5.4 L Albumin 2.4 L Vancomycin Trough Crossmatch 06/16/17 06/16/17 06/16/17 08:00 09:07 10:11 WBC RBC Hgb Hct RDW Plt Count Lymph % (Auto) [facility] % (Auto) Lymph # [facility] # Seg Neutrophils % Seg Neuts % (Manual) Lymphocytes % (Manual) Monocytes % (Manual) Nucleated RBC % Seg Neutrophils # Seg Neutrophils # Man Lymphocytes # (Manual) Monocytes # (Manual) PT INR POC ABG pH POC ABG pCO2 POC ABG pO2 Sodium Potassium Chloride Carbon Dioxide BUN Creatinine Glucose POC Glucose 113 H 106 H 107 H Calcium AST Total Protein Albumin Vancomycin Trough Crossmatch 06/16/17 06/16/17 06/16/17 10:59 11:28 12:11 WBC RBC Hgb Hct RDW Plt Count Lymph % (Auto) [facility] % (Auto) Lymph # [facility] # Seg Neutrophils % Seg Neuts % (Manual) Lymphocytes % (Manual) Monocytes % (Manual) Nucleated RBC % Seg Neutrophils # Seg Neutrophils # Man Lymphocytes # (Manual) Monocytes # (Manual) PT INR POC ABG pH POC ABG pCO2 30.3 L POC ABG pO2 118 H Sodium Potassium Chloride Carbon Dioxide BUN Creatinine Glucose POC Glucose 110 H 109 H Calcium AST Total Protein Albumin Vancomycin Trough Crossmatch 06/16/17 06/16/17 06/16/17 13:13 15:40 18:18 WBC RBC Hgb Hct RDW Plt Count Lymph % (Auto) [facility] % (Auto) Lymph # [facility] # Seg Neutrophils % Seg Neuts % (Manual) Lymphocytes % (Manual) Monocytes % (Manual) Nucleated RBC % Seg Neutrophils # Seg Neutrophils # Man Lymphocytes # (Manual) Monocytes # (Manual) PT INR POC ABG pH POC ABG pCO2 POC ABG pO2 Sodium Potassium Chloride Carbon Dioxide BUN Creatinine Glucose POC Glucose 111 H 143 H 109 H Calcium AST Total Protein Albumin Vancomycin Trough Crossmatch 06/16/17 06/16/17 06/16/17 19:08 20:05 21:00 WBC RBC Hgb Hct RDW Plt Count Lymph % (Auto) [facility] % (Auto) Lymph # [facility] # Seg Neutrophils % Seg Neuts % (Manual) Lymphocytes % (Manual) Monocytes % (Manual) Nucleated RBC % Seg Neutrophils # Seg Neutrophils # Man Lymphocytes # (Manual) Monocytes # (Manual) PT INR POC ABG pH POC ABG pCO2 POC ABG pO2 Sodium Potassium Chloride Carbon Dioxide BUN Creatinine Glucose POC Glucose 107 H 106 H 119 H Calcium AST Total Protein Albumin Vancomycin Trough Crossmatch 06/16/17 06/17/17 06/17/17 22:01 01:04 02:02 WBC RBC Hgb Hct RDW Plt Count Lymph % (Auto) [facility] % (Auto) Lymph # [facility] # Seg Neutrophils % Seg Neuts % (Manual) Lymphocytes % (Manual) Monocytes % (Manual) Nucleated RBC % Seg Neutrophils # Seg Neutrophils # Man Lymphocytes # (Manual) Monocytes # (Manual) PT INR POC ABG pH POC ABG pCO2 POC ABG pO2 Sodium Potassium Chloride Carbon Dioxide BUN Creatinine Glucose POC Glucose 142 H 106 H 108 H Calcium AST Total Protein Albumin Vancomycin Trough Crossmatch 06/17/17 06/17/17 06/17/17 02:44 03:42 04:40 WBC 16.4 H RBC 3.14 L Hgb 9.4 L Hct 28.5 L RDW 16.0 H Plt Count 107 L Lymph % (Auto) 5.0 L [facility] % (Auto) 10.0 H Lymph # 0.8 L [facility] # 1.6 H Seg Neutrophils % 84.4 H Seg Neuts % (Manual) Lymphocytes % (Manual) Monocytes % (Manual) Nucleated RBC % Seg Neutrophils # 13.8 H Seg Neutrophils # Man Lymphocytes # (Manual) Monocytes # (Manual) PT INR POC ABG pH POC ABG pCO2 POC ABG pO2 Sodium Potassium Chloride Carbon Dioxide BUN Creatinine Glucose POC Glucose 109 H 113 H Calcium AST Total Protein Albumin Vancomycin Trough Crossmatch 06/17/17 06/17/17 06/17/17 04:40 04:47 05:33 WBC RBC Hgb Hct RDW Plt Count Lymph % (Auto) [facility] % (Auto) Lymph # [facility] # Seg Neutrophils % Seg Neuts % (Manual) Lymphocytes % (Manual) Monocytes % (Manual) Nucleated RBC % Seg Neutrophils # Seg Neutrophils # Man Lymphocytes # (Manual) Monocytes # (Manual) PT INR POC ABG pH POC ABG pCO2 POC ABG pO2 Sodium 150 H Potassium Chloride 110.8 H Carbon Dioxide 18 L BUN 25 H Creatinine Glucose 107 H POC Glucose 132 H 124 H Calcium 8.1 L AST 47 H Total Protein 5.4 L Albumin 2.3 L Vancomycin Trough Crossmatch 06/17/17 06/17/17 06/17/17 07:19 08:02 08:53 WBC RBC Hgb Hct RDW Plt Count Lymph % (Auto) [facility] % (Auto) Lymph # [facility] # Seg Neutrophils % Seg Neuts % (Manual) Lymphocytes % (Manual) Monocytes % (Manual) Nucleated RBC % Seg Neutrophils # Seg Neutrophils # Man Lymphocytes # (Manual) Monocytes # (Manual) PT INR POC ABG pH POC ABG pCO2 POC ABG pO2 Sodium Potassium Chloride Carbon Dioxide BUN Creatinine Glucose POC Glucose 115 H 119 H 130 H Calcium AST Total Protein Albumin Vancomycin Trough Crossmatch 06/17/17 06/17/17 06/17/17 10:00 11:05 12:08 WBC RBC Hgb Hct RDW Plt Count Lymph % (Auto) [facility] % (Auto) Lymph # [facility] # Seg Neutrophils % Seg Neuts % (Manual) Lymphocytes % (Manual) Monocytes % (Manual) Nucleated RBC % Seg Neutrophils # Seg Neutrophils # Man Lymphocytes # (Manual) Monocytes # (Manual) PT INR POC ABG pH POC ABG pCO2 POC ABG pO2 Sodium Potassium Chloride Carbon Dioxide BUN Creatinine Glucose POC Glucose 122 H 131 H 125 H Calcium AST Total Protein Albumin Vancomycin Trough Crossmatch 06/17/17 06/17/17 06/17/17 13:20 14:09 15:13 WBC RBC Hgb Hct RDW Plt Count Lymph % (Auto) [facility] % (Auto) Lymph # [facility] # Seg Neutrophils % Seg Neuts % (Manual) Lymphocytes % (Manual) Monocytes % (Manual) Nucleated RBC % Seg Neutrophils # Seg Neutrophils # Man Lymphocytes # (Manual) Monocytes # (Manual) PT INR POC ABG pH POC ABG pCO2 POC ABG pO2 Sodium Potassium Chloride Carbon Dioxide BUN Creatinine Glucose POC Glucose 133 H 114 H 137 H Calcium AST Total Protein Albumin Vancomycin Trough Crossmatch 06/17/17 06/17/17 06/17/17 16:09 16:53 17:46 WBC RBC Hgb Hct RDW Plt Count Lymph % (Auto) [facility] % (Auto) Lymph # [facility] # Seg Neutrophils % Seg Neuts % (Manual) Lymphocytes % (Manual) Monocytes % (Manual) Nucleated RBC % Seg Neutrophils # Seg Neutrophils # Man Lymphocytes # (Manual) Monocytes # (Manual) PT INR POC ABG pH POC ABG pCO2 POC ABG pO2 Sodium Potassium Chloride Carbon Dioxide BUN Creatinine Glucose POC Glucose 120 H 123 H 112 H Calcium AST Total Protein Albumin Vancomycin Trough Crossmatch 06/17/17 06/17/17 06/17/17 20:36 21:04 21:47 WBC RBC Hgb Hct RDW Plt Count Lymph % (Auto) [facility] % (Auto) Lymph # [facility] # Seg Neutrophils % Seg Neuts % (Manual) Lymphocytes % (Manual) Monocytes % (Manual) Nucleated RBC % Seg Neutrophils # Seg Neutrophils # Man Lymphocytes # (Manual) Monocytes # (Manual) PT INR POC ABG pH POC ABG pCO2 POC ABG pO2 Sodium Potassium Chloride Carbon Dioxide BUN Creatinine Glucose POC Glucose 127 H 144 H 124 H Calcium AST Total Protein Albumin Vancomycin Trough Crossmatch 06/17/17 06/17/17 06/18/17 22:52 23:49 00:48 WBC RBC Hgb Hct RDW Plt Count Lymph % (Auto) [facility] % (Auto) Lymph # [facility] # Seg Neutrophils % Seg Neuts % (Manual) Lymphocytes % (Manual) Monocytes % (Manual) Nucleated RBC % Seg Neutrophils # Seg Neutrophils # Man Lymphocytes # (Manual) Monocytes # (Manual) PT INR POC ABG pH POC ABG pCO2 POC ABG pO2 Sodium Potassium Chloride Carbon Dioxide BUN Creatinine Glucose POC Glucose 175 H 162 H 139 H Calcium AST Total Protein Albumin Vancomycin Trough Crossmatch 06/18/17 06/18/17 06/18/17 01:57 03:06 04:03 WBC RBC Hgb Hct RDW Plt Count Lymph % (Auto) [facility] % (Auto) Lymph # [facility] # Seg Neutrophils % Seg Neuts % (Manual) Lymphocytes % (Manual) Monocytes % (Manual) Nucleated RBC % Seg Neutrophils # Seg Neutrophils # Man Lymphocytes # (Manual) Monocytes # (Manual) PT INR POC ABG pH POC ABG pCO2 POC ABG pO2 Sodium Potassium Chloride Carbon Dioxide BUN Creatinine Glucose POC Glucose 146 H 213 H 159 H Calcium AST Total Protein Albumin Vancomycin Trough Crossmatch 06/18/17 06/18/17 06/18/17 04:57 05:00 05:00 WBC 17.1 H RBC 3.52 L Hgb 10.5 L Hct 32.3 L RDW 15.7 H Plt Count 120 L Lymph % (Auto) 6.8 L [facility] % (Auto) 9.6 H Lymph # [facility] # 1.6 H Seg Neutrophils % 82.8 H Seg Neuts % (Manual) Lymphocytes % (Manual) Monocytes % (Manual) Nucleated RBC % Seg Neutrophils # 14.1 H Seg Neutrophils # Man Lymphocytes # (Manual) Monocytes # (Manual) PT INR POC ABG pH POC ABG pCO2 POC ABG pO2 Sodium 153 H Potassium Chloride 113.4 H Carbon Dioxide 17 L BUN 28 H Creatinine Glucose 150 H POC Glucose 195 H Calcium AST Total Protein 5.6 L Albumin 2.2 L Vancomycin Trough Crossmatch 06/18/17 06/18/17 06/18/17 05:00 05:23 06:23 WBC RBC Hgb Hct RDW Plt Count Lymph % (Auto) [facility] % (Auto) Lymph # [facility] # Seg Neutrophils % Seg Neuts % (Manual) Lymphocytes % (Manual) Monocytes % (Manual) Nucleated RBC % Seg Neutrophils # Seg Neutrophils # Man Lymphocytes # (Manual) Monocytes # (Manual) PT INR POC ABG pH POC ABG pCO2 POC ABG pO2 Sodium Potassium Chloride Carbon Dioxide BUN Creatinine Glucose POC Glucose 204 H 159 H Calcium AST Total Protein Albumin Vancomycin Trough 29.4 H Crossmatch 06/18/17 06/18/17 06/18/17 08:06 09:02 11:01 WBC RBC Hgb Hct RDW Plt Count Lymph % (Auto) [facility] % (Auto) Lymph # [facility] # Seg Neutrophils % Seg Neuts % (Manual) Lymphocytes % (Manual) Monocytes % (Manual) Nucleated RBC % Seg Neutrophils # Seg Neutrophils # Man Lymphocytes # (Manual) Monocytes # (Manual) PT INR POC ABG pH POC ABG pCO2 POC ABG pO2 Sodium Potassium Chloride Carbon Dioxide BUN Creatinine Glucose POC Glucose 120 H 119 H 128 H Calcium AST Total Protein Albumin Vancomycin Trough Crossmatch 06/18/17 06/18/17 06/18/17 11:57 13:04 13:58 WBC RBC Hgb Hct RDW Plt Count Lymph % (Auto) [facility] % (Auto) Lymph # [facility] # Seg Neutrophils % Seg Neuts % (Manual) Lymphocytes % (Manual) Monocytes % (Manual) Nucleated RBC % Seg Neutrophils # Seg Neutrophils # Man Lymphocytes # (Manual) Monocytes # (Manual) PT INR POC ABG pH POC ABG pCO2 POC ABG pO2 Sodium Potassium Chloride Carbon Dioxide BUN Creatinine Glucose POC Glucose 118 H 127 H 148 H Calcium AST Total Protein Albumin Vancomycin Trough Crossmatch 06/18/17 06/18/17 06/18/17 14:50 16:16 18:00 WBC RBC Hgb Hct RDW Plt Count Lymph % (Auto) [facility] % (Auto) Lymph # [facility] # Seg Neutrophils % Seg Neuts % (Manual) Lymphocytes % (Manual) Monocytes % (Manual) Nucleated RBC % Seg Neutrophils # Seg Neutrophils # Man Lymphocytes # (Manual) Monocytes # (Manual) PT INR POC ABG pH POC ABG pCO2 POC ABG pO2 Sodium Potassium Chloride Carbon Dioxide BUN Creatinine Glucose POC Glucose 113 H 123 H Calcium AST Total Protein Albumin Vancomycin Trough 21.7 H Crossmatch 06/18/17 06/18/17 06/18/17 18:01 18:59 20:11 WBC RBC Hgb Hct RDW Plt Count Lymph % (Auto) [facility] % (Auto) Lymph # [facility] # Seg Neutrophils % Seg Neuts % (Manual) Lymphocytes % (Manual) Monocytes % (Manual) Nucleated RBC % Seg Neutrophils # Seg Neutrophils # Man Lymphocytes # (Manual) Monocytes # (Manual) PT INR POC ABG pH POC ABG pCO2 POC ABG pO2 Sodium Potassium Chloride Carbon Dioxide BUN Creatinine Glucose POC Glucose 125 H 128 H 108 H Calcium AST Total Protein Albumin Vancomycin Trough Crossmatch 06/18/17 06/18/17 06/18/17 21:21 22:22 23:04 WBC RBC Hgb Hct RDW Plt Count Lymph % (Auto) [facility] % (Auto) Lymph # [facility] # Seg Neutrophils % Seg Neuts % (Manual) Lymphocytes % (Manual) Monocytes % (Manual) Nucleated RBC % Seg Neutrophils # Seg Neutrophils # Man Lymphocytes # (Manual) Monocytes # (Manual) PT INR POC ABG pH POC ABG pCO2 POC ABG pO2 Sodium Potassium Chloride Carbon Dioxide BUN Creatinine Glucose POC Glucose 107 H 118 H 171 H Calcium AST Total Protein Albumin Vancomycin Trough Crossmatch 06/19/17 06/19/17 06/19/17 00:43 01:29 02:06 WBC RBC Hgb Hct RDW Plt Count Lymph % (Auto) [facility] % (Auto) Lymph # [facility] # Seg Neutrophils % Seg Neuts % (Manual) Lymphocytes % (Manual) Monocytes % (Manual) Nucleated RBC % Seg Neutrophils # Seg Neutrophils # Man Lymphocytes # (Manual) Monocytes # (Manual) PT INR POC ABG pH POC ABG pCO2 POC ABG pO2 Sodium Potassium Chloride Carbon Dioxide BUN Creatinine Glucose POC Glucose 141 H 124 H 137 H Calcium AST Total Protein Albumin Vancomycin Trough Crossmatch 06/19/17 06/19/17 06/19/17 03:01 04:37 05:51 WBC RBC Hgb Hct RDW Plt Count Lymph % (Auto) [facility] % (Auto) Lymph # [facility] # Seg Neutrophils % Seg Neuts % (Manual) Lymphocytes % (Manual) Monocytes % (Manual) Nucleated RBC % Seg Neutrophils # Seg Neutrophils # Man Lymphocytes # (Manual) Monocytes # (Manual) PT INR POC ABG pH POC ABG pCO2 POC ABG pO2 Sodium Potassium Chloride Carbon Dioxide BUN Creatinine Glucose POC Glucose 135 H 126 H 132 H Calcium AST Total Protein Albumin Vancomycin Trough Crossmatch 06/19/17 06/19/17 06/19/17 06:50 06:50 07:59 WBC 14.5 H RBC 3.44 L Hgb 10.2 L Hct 30.6 L RDW 15.4 H Plt Count 139 L Lymph % (Auto) 8.2 L [facility] % (Auto) 10.5 H Lymph # [facility] # 1.5 H Seg Neutrophils % 79.8 H Seg Neuts % (Manual) Lymphocytes % (Manual) Monocytes % (Manual) Nucleated RBC % Seg Neutrophils # 11.5 H Seg Neutrophils # Man Lymphocytes # (Manual) Monocytes # (Manual) PT INR POC ABG pH POC ABG pCO2 POC ABG pO2 Sodium 154 H Potassium Chloride 115.0 H Carbon Dioxide BUN 24 H Creatinine Glucose 106 H POC Glucose 132 H Calcium 7.8 L AST Total Protein 4.9 L Albumin 2.3 L Vancomycin Trough Crossmatch 06/19/17 06/19/17 06/19/17 09:06 10:05 11:52 WBC RBC Hgb Hct RDW Plt Count Lymph % (Auto) [facility] % (Auto) Lymph # [facility] # Seg Neutrophils % Seg Neuts % (Manual) Lymphocytes % (Manual) Monocytes % (Manual) Nucleated RBC % Seg Neutrophils # Seg Neutrophils # Man Lymphocytes # (Manual) Monocytes # (Manual) PT INR POC ABG pH POC ABG pCO2 POC ABG pO2 Sodium Potassium Chloride Carbon Dioxide BUN Creatinine Glucose POC Glucose 124 H 124 H 157 H Calcium AST Total Protein Albumin Vancomycin Trough Crossmatch 06/19/17 06/19/17 06/19/17 13:37 14:09 16:07 WBC RBC Hgb Hct RDW Plt Count Lymph % (Auto) [facility] % (Auto) Lymph # [facility] # Seg Neutrophils % Seg Neuts % (Manual) Lymphocytes % (Manual) Monocytes % (Manual) Nucleated RBC % Seg Neutrophils # Seg Neutrophils # Man Lymphocytes # (Manual) Monocytes # (Manual) PT INR POC ABG pH POC ABG pCO2 POC ABG pO2 Sodium Potassium Chloride Carbon Dioxide BUN Creatinine Glucose POC Glucose 143 H 143 H 183 H Calcium AST Total Protein Albumin Vancomycin Trough Crossmatch 06/19/17 06/20/17 06/20/17 17:32 02:02 03:12 WBC RBC Hgb Hct RDW Plt Count Lymph % (Auto) [facility] % (Auto) Lymph # [facility] # Seg Neutrophils % Seg Neuts % (Manual) Lymphocytes % (Manual) Monocytes % (Manual) Nucleated RBC % Seg Neutrophils # Seg Neutrophils # Man Lymphocytes # (Manual) Monocytes # (Manual) PT INR POC ABG pH POC ABG pCO2 POC ABG pO2 Sodium Potassium Chloride Carbon Dioxide BUN Creatinine Glucose POC Glucose 132 H 62 L 120 H Calcium AST Total Protein Albumin Vancomycin Trough Crossmatch 06/20/17 06/20/17 06/20/17 04:00 04:00 04:01 WBC 15.0 H RBC 3.21 L Hgb 9.6 L Hct 28.7 L RDW Plt Count Lymph % (Auto) 7.0 L [facility] % (Auto) 10.9 H Lymph # 1.1 L [facility] # 1.6 H Seg Neutrophils % 81.2 H Seg Neuts % (Manual) Lymphocytes % (Manual) Monocytes % (Manual) Nucleated RBC % Seg Neutrophils # 12.2 H Seg Neutrophils # Man Lymphocytes # (Manual) Monocytes # (Manual) PT INR POC ABG pH POC ABG pCO2 POC ABG pO2 Sodium Potassium Chloride Carbon Dioxide BUN 21 H Creatinine Glucose 172 H POC Glucose 151 H Calcium 7.4 L AST Total Protein 4.9 L Albumin 2.0 L Vancomycin Trough Crossmatch 06/20/17 06/20/17 06/20/17 05:50 08:14 11:28 WBC RBC Hgb Hct RDW Plt Count Lymph % (Auto) [facility] % (Auto) Lymph # [facility] # Seg Neutrophils % Seg Neuts % (Manual) Lymphocytes % (Manual) Monocytes % (Manual) Nucleated RBC % Seg Neutrophils # Seg Neutrophils # Man Lymphocytes # (Manual) Monocytes # (Manual) PT INR POC ABG pH POC ABG pCO2 POC ABG pO2 Sodium Potassium Chloride Carbon Dioxide BUN Creatinine Glucose POC Glucose 190 H 142 H 115 H Calcium AST Total Protein Albumin Vancomycin Trough Crossmatch 06/20/17 06/20/17 06/21/17 14:13 17:42 00:12 WBC RBC Hgb Hct RDW Plt Count Lymph % (Auto) [facility] % (Auto) Lymph # [facility] # Seg Neutrophils % Seg Neuts % (Manual) Lymphocytes % (Manual) Monocytes % (Manual) Nucleated RBC % Seg Neutrophils # Seg Neutrophils # Man Lymphocytes # (Manual) Monocytes # (Manual) PT INR POC ABG pH POC ABG pCO2 POC ABG pO2 Sodium Potassium Chloride Carbon Dioxide BUN Creatinine Glucose POC Glucose 145 H 272 H 327 H Calcium AST Total Protein Albumin Vancomycin Trough Crossmatch 06/21/17 06/21/17 06/21/17 05:10 05:10 05:30 WBC 14.0 H RBC 3.24 L Hgb 9.6 L Hct 28.8 L RDW Plt Count Lymph % (Auto) 9.4 L [facility] % (Auto) 13.5 H Lymph # [facility] # 1.9 H Seg Neutrophils % 76.1 H Seg Neuts % (Manual) Lymphocytes % (Manual) Monocytes % (Manual) Nucleated RBC % Seg Neutrophils # 10.7 H Seg Neutrophils # Man Lymphocytes # (Manual) Monocytes # (Manual) PT INR POC ABG pH POC ABG pCO2 POC ABG pO2 Sodium Potassium Chloride Carbon Dioxide BUN 22 H Creatinine Glucose 235 H POC Glucose 226 H Calcium 7.7 L AST Total Protein 5.4 L Albumin 2.2 L Vancomycin Trough Crossmatch 06/21/17 06/21/17 06/22/17 11:38 17:27 00:15 WBC RBC Hgb Hct RDW Plt Count Lymph % (Auto) [facility] % (Auto) Lymph # [facility] # Seg Neutrophils % Seg Neuts % (Manual) Lymphocytes % (Manual) Monocytes % (Manual) Nucleated RBC % Seg Neutrophils # Seg Neutrophils # Man Lymphocytes # (Manual) Monocytes # (Manual) PT INR POC ABG pH POC ABG pCO2 POC ABG pO2 Sodium Potassium Chloride Carbon Dioxide BUN Creatinine Glucose POC Glucose 243 H 233 H 284 H Calcium AST Total Protein Albumin Vancomycin Trough Crossmatch 06/22/17 06/22/17 06/22/17 05:15 05:15 05:18 WBC 13.2 H RBC 3.24 L Hgb 9.5 L Hct 29.0 L RDW Plt Count Lymph % (Auto) 8.9 L [facility] % (Auto) 15.7 H Lymph # [facility] # 2.1 H Seg Neutrophils % 74.5 H Seg Neuts % (Manual) Lymphocytes % (Manual) Monocytes % (Manual) Nucleated RBC % Seg Neutrophils # 9.8 H Seg Neutrophils # Man Lymphocytes # (Manual) Monocytes # (Manual) PT INR POC ABG pH POC ABG pCO2 POC ABG pO2 Sodium Potassium Chloride Carbon Dioxide BUN Creatinine Glucose 152 H POC Glucose 145 H Calcium 7.8 L AST Total Protein 5.1 L Albumin 2.2 L Vancomycin Trough Crossmatch 06/22/17 06/22/17 06/22/17 12:00 13:19 17:05 WBC RBC Hgb Hct RDW Plt Count Lymph % (Auto) [facility] % (Auto) Lymph # [facility] # Seg Neutrophils % Seg Neuts % (Manual) Lymphocytes % (Manual) Monocytes % (Manual) Nucleated RBC % Seg Neutrophils # Seg Neutrophils # Man Lymphocytes # (Manual) Monocytes # (Manual) PT INR POC ABG pH POC ABG pCO2 POC ABG pO2 Sodium Potassium Chloride Carbon Dioxide BUN Creatinine Glucose POC Glucose 234 H 214 H 219 H Calcium AST Total Protein Albumin Vancomycin Trough Crossmatch 06/23/17 06/23/17 06/23/17 00:23 05:35 06:38 WBC RBC Hgb 7.6 L Hct 23.9 L RDW Plt Count Lymph % (Auto) [facility] % (Auto) Lymph # [facility] # Seg Neutrophils % Seg Neuts % (Manual) Lymphocytes % (Manual) Monocytes % (Manual) Nucleated RBC % Seg Neutrophils # Seg Neutrophils # Man Lymphocytes # (Manual) Monocytes # (Manual) PT INR POC ABG pH POC ABG pCO2 POC ABG pO2 Sodium Potassium Chloride Carbon Dioxide BUN Creatinine Glucose POC Glucose 186 H 178 H Calcium AST Total Protein Albumin Vancomycin Trough Crossmatch 06/23/17 06/23/17 06/23/17 06:38 12:23 17:00 WBC RBC Hgb Hct RDW Plt Count Lymph % (Auto) [facility] % (Auto) Lymph # [facility] # Seg Neutrophils % Seg Neuts % (Manual) Lymphocytes % (Manual) Monocytes % (Manual) Nucleated RBC % Seg Neutrophils # Seg Neutrophils # Man Lymphocytes # (Manual) Monocytes # (Manual) PT INR POC ABG pH POC ABG pCO2 POC ABG pO2 Sodium Potassium Chloride Carbon Dioxide BUN Creatinine Glucose 167 H POC Glucose 232 H Calcium 8.0 L AST Total Protein Albumin Vancomycin Trough Crossmatch See Detail 06/23/17 06/23/17 06/23/17 17:43 20:59 21:06 WBC RBC Hgb Hct RDW Plt Count Lymph % (Auto) [facility] % (Auto) Lymph # [facility] # Seg Neutrophils % Seg Neuts % (Manual) Lymphocytes % (Manual) Monocytes % (Manual) Nucleated RBC % Seg Neutrophils # Seg Neutrophils # Man Lymphocytes # (Manual) Monocytes # (Manual) PT INR POC ABG pH POC ABG pCO2 POC ABG pO2 Sodium Potassium Chloride Carbon Dioxide BUN Creatinine Glucose POC Glucose 141 H 179 H 170 H Calcium AST Total Protein Albumin Vancomycin Trough Crossmatch 06/23/17 06/24/17 06/24/17 23:21 04:00 04:00 WBC 11.2 H RBC 3.01 L Hgb 8.6 L Hct 26.8 L RDW Plt Count Lymph % (Auto) [facility] % (Auto) Lymph # [facility] # Seg Neutrophils % Seg Neuts % (Manual) 75.0 H Lymphocytes % (Manual) 13.0 L Monocytes % (Manual) 11.0 H Nucleated RBC % 1.0 H Seg Neutrophils # Seg Neutrophils # Man 8.4 H Lymphocytes # (Manual) Monocytes # (Manual) 1.2 H PT INR POC ABG pH POC ABG pCO2 POC ABG pO2 Sodium 146 H Potassium 3.2 L Chloride Carbon Dioxide 32 H D BUN Creatinine Glucose 54 L POC Glucose 186 H Calcium 8.1 L AST Total Protein 5.5 L Albumin 2.1 L Vancomycin Trough Crossmatch 06/24/17 06/24/17 05:34 05:36 WBC RBC Hgb Hct RDW Plt Count Lymph % (Auto) [facility] % (Auto) Lymph # [facility] # Seg Neutrophils % Seg Neuts % (Manual) Lymphocytes % (Manual) Monocytes % (Manual) Nucleated RBC % Seg Neutrophils # Seg Neutrophils # Man Lymphocytes # (Manual) Monocytes # (Manual) PT INR POC ABG pH POC ABG pCO2 POC ABG pO2 Sodium Potassium Chloride Carbon Dioxide BUN Creatinine Glucose POC Glucose 43 L 54 L Calcium AST Total Protein Albumin Vancomycin Trough Crossmatch
--- NOTE | 2017-06-24 13:54 | Progress Note ---
Assessment and Plan - Patient Problems (1) Atherosclerosis of [place] arteries of the extremities with gangrene Current Visit: Yes Status: Acute Qualifiers: Peripheral atherosclerosis location: P Laterality: L Plan to address problem: post op AKA, wound stable. Open wound left groin- wound vac. Overall stable. Vac replaced this AM (2) Acute blood loss anemia Current Visit: Yes Status: Acute Plan to address problem: H/H noted. Observe for now. Subjective Principal diagnosis: Septic shock, PAD s/p left limb salvage procedures Interval history: No complaint, nurse reports wound vac problem- replaced this AM Objective - Constitutional Vitals: Vital Signs - 12hr 06/24/17 06/24/17 06/24/17 02:00 02:58 03:00 Temperature Pulse Rate 98 H 97 H 100 H Respiratory 19 17 Rate Blood Pressure 127/64 116/69 125/70 O2 Sat by Pulse 98 99 Oximetry 06/24/17 06/24/17 06/24/17 04:00 05:00 06:00 Temperature 99.0 F Pulse Rate 97 H 108 H 103 H Respiratory 19 21 18 Rate Blood Pressure 125/75 123/30 127/68 O2 Sat by Pulse 96 96 97 Oximetry 06/24/17 06/24/17 06/24/17 08:00 10:30 11:12 Temperature 97.7 F Pulse Rate 109 H Respiratory Rate Blood Pressure O2 Sat by Pulse 97 Oximetry 06/24/17 12:00 Temperature 98.2 F Pulse Rate Respiratory Rate Blood Pressure O2 Sat by Pulse Oximetry General appearance: Present: no acute distress - EENT ENT: clear oral mucosa - Neck Neck: supple, normal ROM - Respiratory Respiratory effort: normal Respiratory: bilateral: CTA - Breasts Breasts: deferred - Cardiovascular Rhythm: regular Heart Sounds: Present: S1 & S2 Extremities: no ischemia (open groin wound, some granulation, superficial slough - no evidence of active infection) - Gastrointestinal General gastrointestinal: Present: soft, non-tender, non-distended Rectal Exam: deferred - Genitourinary Male genitourinary: deferred - Integumentary Integumentary: clear, warm, dry (AKA wound intact) - Labs CBC & Chem 7: 06/24/17 04:00 06/24/17 04:00 Labs: Abnormal lab results 06/15/17 06/23/17 06/23/17 Range/Units 11:35 17:00 17:43 WBC (4.5-11.0) K/mm3 RBC (3.65-5.03) M/mm3 Hgb (11.8-15.2) gm/dl Hct (35.5-45.6) % Seg Neuts % (Manual) (40.0-70.0) % Lymphocytes % (Manual) (13.4-35.0) % Monocytes % (Manual) (0.0-7.3) % Nucleated RBC % (0.0-0.9) % Seg Neutrophils # Man (1.8-7.7) K/mm3 Monocytes # (Manual) (0.0-0.8) K/mm3 Sodium (137-145) mmol/L Potassium (3.6-5.0) mmol/L Carbon Dioxide (22-30) mmol/L Glucose (75-100) mg/dL POC Glucose 141 H (70-105) Calcium (8.4-10.2) mg/dL Total Protein (6.3-8.2) g/dL Albumin (3.9-5) g/dL Crossmatch See Detail See Detail 06/23/17 06/23/17 06/23/17 Range/Units 20:59 21:06 23:21 WBC (4.5-11.0) K/mm3 RBC (3.65-5.03) M/mm3 Hgb (11.8-15.2) gm/dl Hct (35.5-45.6) % Seg Neuts % (Manual) (40.0-70.0) % Lymphocytes % (Manual) (13.4-35.0) % Monocytes % (Manual) (0.0-7.3) % Nucleated RBC % (0.0-0.9) % Seg Neutrophils # Man (1.8-7.7) K/mm3 Monocytes # (Manual) (0.0-0.8) K/mm3 Sodium (137-145) mmol/L Potassium (3.6-5.0) mmol/L Carbon Dioxide (22-30) mmol/L Glucose (75-100) mg/dL POC Glucose 179 H 170 H 186 H (70-105) Calcium (8.4-10.2) mg/dL Total Protein (6.3-8.2) g/dL Albumin (3.9-5) g/dL Crossmatch 06/24/17 06/24/17 06/24/17 Range/Units 04:00 04:00 05:34 WBC 11.2 H (4.5-11.0) K/mm3 RBC 3.01 L (3.65-5.03) M/mm3 Hgb 8.6 L (11.8-15.2) gm/dl Hct 26.8 L (35.5-45.6) % Seg Neuts % (Manual) 75.0 H (40.0-70.0) % Lymphocytes % (Manual) 13.0 L (13.4-35.0) % Monocytes % (Manual) 11.0 H (0.0-7.3) % Nucleated RBC % 1.0 H (0.0-0.9) % Seg Neutrophils # Man 8.4 H (1.8-7.7) K/mm3 Monocytes # (Manual) 1.2 H (0.0-0.8) K/mm3 Sodium 146 H (137-145) mmol/L Potassium 3.2 L (3.6-5.0) mmol/L Carbon Dioxide 32 H D (22-30) mmol/L Glucose 54 L (75-100) mg/dL POC Glucose 43 L (70-105) Calcium 8.1 L (8.4-10.2) mg/dL Total Protein 5.5 L (6.3-8.2) g/dL Albumin 2.1 L (3.9-5) g/dL Crossmatch 06/24/17 Range/Units 05:36 WBC (4.5-11.0) K/mm3 RBC (3.65-5.03) M/mm3 Hgb (11.8-15.2) gm/dl Hct (35.5-45.6) % Seg Neuts % (Manual) (40.0-70.0) % Lymphocytes % (Manual) (13.4-35.0) % Monocytes % (Manual) (0.0-7.3) % Nucleated RBC % (0.0-0.9) % Seg Neutrophils # Man (1.8-7.7) K/mm3 Monocytes # (Manual) (0.0-0.8) K/mm3 Sodium (137-145) mmol/L Potassium (3.6-5.0) mmol/L Carbon Dioxide (22-30) mmol/L Glucose (75-100) mg/dL POC Glucose 54 L (70-105) Calcium (8.4-10.2) mg/dL Total Protein (6.3-8.2) g/dL Albumin (3.9-5) g/dL Crossmatch
[2017-06-24] MEDS ORDERED: D5W 1,000 ML IV SCH (14:00)
[2017-06-24] MEDS: LEVEMIR SUB-Q SCH (21:53)
[2017-06-25] MEDS: CARDIZEM PO SCH ×2 (03:34→10:35)
[2017-06-25 05:42] LABS: Hematocrit 25.9 % (35.5-45.6); Hemoglobin 8.7 gm/dl (11.8-15.2); Mean Corpuscular HGB Conc 34 % (32-34); Mean Corpuscular Hemoglobin 30 pg (28-32); Mean Corpuscular Volume 88 fl (84-94); Platelet Count 272 K/mm3 (140-440); Red Blood Count 2.95 M/mm3 (3.65-5.03); Red Cell Distribution Width 14.7 % (13.2-15.2); White Blood Count 8.8 K/mm3 (4.5-11.0)
[2017-06-25 06:02] LABS: Alanine Aminotransferase 13 units/L (7-56); Albumin 2.2 g/dL (3.9-5); Albumin/Globulin Ratio 0.8 %; Alkaline Phosphatase 66 units/L (35-129); Anion Gap 14 mmol/L; BUN/Creatinine Ratio 15.71; Blood Urea Nitrogen 11 mg/dL (9-20); Calcium 7.9 mg/dL (8.4-10.2); Carbon Dioxide 32 mmol/L (22-30); Chloride 96.7 mmol/L (98-107); Glucose 66 mg/dL (75-100); Potassium 3.3 mmol/L (3.6-5.0); Sodium 139 mmol/L (137-145)
[2017-06-25 08:31] LABS: Anisocytosis 1+; Basophils % (Manual) 0 % (0.0-1.8); Blastocytes % (Manual) 0 %; Diff Status Complete; Eosinophils % (Manual) 0 % (0.0-4.3)
--- NOTE | 2017-06-25 09:48 | Progress Note ---
Assessment and Plan Patient is a 76 year old male with left AKA, 05/22/17. Has a hx of PAD, S/P multiple vascular surgeries including a TMA with a wound VAC that malfunctioned leading to blood loss with blood tranfusion. S/p re-do bypass graft on 06/14/17, as the distal portion of the bypass of the left tibia was infected and bypass tissue friable and would not hold repair sutures. Right Arm vein harvested and distal portion of the tibail artery bypassed around to lower portion of the [employer]. Patient also has history of CAD CABG years ago, ischemic cardiomyopathy with ejection fraction of 40-45% 05/2017, hypertension, diabetes, hyperlipidemia , [facility] to [facility] with hypotension,fever and infected left foot TMA and ischemia despite multiple revalorization procedures hence left AKA. Fever resolved -s/p Left AKA 05/22/17 for infected TMA site and gangrenous left foot. -Hypokalemia -Infected hematoma of the left femoral; with wound vac in place over the left groin hematoma -leukocytosis - improving -Acute blood loss anemia - resolved -Uncontrolled diabetes mellitus - improving on insulin drip -CAD s/p CABG -Tachycardia with PVC - multifactorial -Hypernatremia commence D5W. and optimize glycemic control -S/P wound vac to left groin wound infection site. PLAN * Wound care left AKA site * Free water for hypernatrmia. supplement K * S/P 6 units PRBC, Monitor h/h, Transfuse as needed * Discontinued IV abx, by ID as source of infection has been remove diwth wound cultures, blood cultures yielded E.coli, ID following * Cardiology consult and monitor Electrolytes * 4 hrs. Add lantus * Discussed with pt's daughter. Pt is DNR/DNI * DVT/GI prophylaxis: SCD. Just had bleeding episode refquiring blood xfusion. Therefore no anticoagulation for now Subjective Date of service: 06/25/17 Principal diagnosis: Septic shock, PAD s/p left limb salvage procedures Interval history: No new conplaint. Lying quietly in bed. Wound Vac on the left groin being changed by Dr. Zimmerman. Still pleasantly confused Objective - Constitutional Vitals: Vital Signs - 12hr 06/24/17 06/24/17 06/24/17 22:00 22:25 23:00 Temperature Pulse Rate 94 H 97 H 87 Pulse Rate [ Radial] Respiratory 19 21 17 Rate Blood Pressure 108/61 111/67 111/65 O2 Sat by Pulse 100 99 99 Oximetry 06/25/17 06/25/17 06/25/17 00:00 01:00 02:00 Temperature 98.8 F Pulse Rate 81 89 91 H Pulse Rate [ Radial] Respiratory 18 21 20 Rate Blood Pressure 113/62 104/67 119/71 O2 Sat by Pulse 97 Oximetry 06/25/17 06/25/17 06/25/17 03:00 03:34 04:00 Temperature 98.2 F Pulse Rate 92 H 92 H 88 Pulse Rate [ Radial] Respiratory 24 23 Rate Blood Pressure 129/73 113/68 122/59 O2 Sat by Pulse Oximetry 06/25/17 06/25/17 06/25/17 05:00 06:01 07:29 Temperature Pulse Rate 79 81 Pulse Rate [ Radial] Respiratory 19 25 H Rate Blood Pressure 112/59 121/61 O2 Sat by Pulse 100 100 100 Oximetry 06/25/17 08:00 Temperature 98.8 F Pulse Rate Pulse Rate [ 92 H Radial] Respiratory 20 Rate Blood Pressure 140/70 O2 Sat by Pulse 97 Oximetry General appearance: Present: no acute distress, well-nourished - EENT Eyes: PERRL, EOM intact - Neck Neck: supple, normal ROM - Respiratory Respiratory effort: normal Respiratory: bilateral: CTA - Cardiovascular Rhythm: regular Heart Sounds: Present: S1 & S2. Absent: gallop, rub Extremities: pulses intact, No edema, normal color, Full ROM - Gastrointestinal General gastrointestinal: Present: soft, non-tender - Integumentary Integumentary: clear, warm, dry - Musculoskeletal Musculoskeletal: 1, strength equal bilaterally - Neurologic Neurologic: moves all extremities - Psychiatric Psychiatric: memory intact, appropriate mood/affect, intact judgment & insight - Labs CBC & Chem 7: 06/25/17 05:20 06/25/17 05:20 Labs: Abnormal lab results 06/24/17 06/24/17 06/24/17 Range/Units 18:22 21:46 23:49 RBC (3.65-5.03) M/mm3 Hgb (11.8-15.2) gm/dl Hct (35.5-45.6) % Seg Neuts % (Manual) (40.0-70.0) % Lymphocytes % (Manual) (13.4-35.0) % Monocytes % (Manual) (0.0-7.3) % Lymphocytes # (Manual) (1.2-5.4) K/mm3 Potassium (3.6-5.0) mmol/L Chloride (98-107) mmol/L Carbon Dioxide (22-30) mmol/L Creatinine (0.8-1.5) mg/dL Glucose (75-100) mg/dL POC Glucose 195 H 230 H 191 H (70-105) Calcium (8.4-10.2) mg/dL Total Protein (6.3-8.2) g/dL Albumin (3.9-5) g/dL 06/25/17 06/25/17 Range/Units 05:20 05:20 RBC 2.95 L (3.65-5.03) M/mm3 Hgb 8.7 L (11.8-15.2) gm/dl Hct 25.9 L (35.5-45.6) % Seg Neuts % (Manual) 82.0 H (40.0-70.0) % Lymphocytes % (Manual) 7.0 L (13.4-35.0) % Monocytes % (Manual) 9.0 H (0.0-7.3) % Lymphocytes # (Manual) 0.6 L (1.2-5.4) K/mm3 Potassium 3.3 L (3.6-5.0) mmol/L Chloride 96.7 L (98-107) mmol/L Carbon Dioxide 32 H (22-30) mmol/L Creatinine 0.7 L (0.8-1.5) mg/dL Glucose 66 L (75-100) mg/dL POC Glucose (70-105) Calcium 7.9 L (8.4-10.2) mg/dL Total Protein 5.0 L (6.3-8.2) g/dL Albumin 2.2 L (3.9-5) g/dL
[2017-06-25] MEDS ORDERED: POTASSIUM CHLORIDE FEEDTUBE ONE (10:00)
[2017-06-25] MEDS: PEPCID PO SCH (10:34)
[2017-06-25] MEDS: TRIPLE ANTIBIOTIC TP SCH (10:35)
[2017-06-25] MEDS: NORCO 5/325 PO PRN (10:36)
--- NOTE | 2017-06-25 10:51 | Progress Note ---
Assessment and Plan Continues to improve from a vascular standpoint. Discussions from patient's family with regards to hospice care noted. Subjective Date of service: 06/25/17 Principal diagnosis: Septic shock, PAD s/p left limb salvage procedures Interval history: Patient remains pleasantly confused. His left AKA stump incision is clean dry and intact. Objective - Constitutional Vitals: Vital Signs - 12hr 06/24/17 06/25/17 06/25/17 23:00 00:00 01:00 Temperature 98.8 F Pulse Rate 87 81 89 Pulse Rate [ Radial] Respiratory 17 18 21 Rate Respiratory Rate [Left Anterior Leg] Respiratory Rate [Right Arm ] Blood Pressure 111/65 113/62 104/67 O2 Sat by Pulse 99 97 Oximetry 06/25/17 06/25/17 06/25/17 02:00 03:00 03:34 Temperature Pulse Rate 91 H 92 H 92 H Pulse Rate [ Radial] Respiratory 20 24 Rate Respiratory Rate [Left Anterior Leg] Respiratory Rate [Right Arm ] Blood Pressure 119/71 129/73 113/68 O2 Sat by Pulse Oximetry 06/25/17 06/25/17 06/25/17 04:00 05:00 06:01 Temperature 98.2 F Pulse Rate 88 79 81 Pulse Rate [ Radial] Respiratory 23 19 25 H Rate Respiratory Rate [Left Anterior Leg] Respiratory Rate [Right Arm ] Blood Pressure 122/59 112/59 121/61 O2 Sat by Pulse 100 100 Oximetry 06/25/17 06/25/17 06/25/17 07:29 08:00 10:00 Temperature 98.8 F Pulse Rate 90 Pulse Rate [ 92 H Radial] Respiratory 20 Rate Respiratory 20 Rate [Left Anterior Leg] Respiratory 20 Rate [Right Arm ] Blood Pressure 140/70 O2 Sat by Pulse 100 97 Oximetry 06/25/17 10:36 Temperature Pulse Rate Pulse Rate [ Radial] Respiratory 20 Rate Respiratory Rate [Left Anterior Leg] Respiratory Rate [Right Arm ] Blood Pressure O2 Sat by Pulse Oximetry General appearance: Present: no acute distress - EENT Eyes: PERRL ENT: hearing intact - Neck Neck: supple - Respiratory Respiratory effort: normal Extremities: no ischemia - Gastrointestinal General gastrointestinal: Present: deferred - Genitourinary Male genitourinary: deferred - Labs CBC & Chem 7: 06/25/17 05:20 06/25/17 05:20 Labs: Abnormal lab results 06/24/17 06/24/17 06/24/17 Range/Units 18:22 21:46 23:49 RBC (3.65-5.03) M/mm3 Hgb (11.8-15.2) gm/dl Hct (35.5-45.6) % Seg Neuts % (Manual) (40.0-70.0) % Lymphocytes % (Manual) (13.4-35.0) % Monocytes % (Manual) (0.0-7.3) % Lymphocytes # (Manual) (1.2-5.4) K/mm3 Potassium (3.6-5.0) mmol/L Chloride (98-107) mmol/L Carbon Dioxide (22-30) mmol/L Creatinine (0.8-1.5) mg/dL Glucose (75-100) mg/dL POC Glucose 195 H 230 H 191 H (70-105) Calcium (8.4-10.2) mg/dL Total Protein (6.3-8.2) g/dL Albumin (3.9-5) g/dL 06/25/17 06/25/17 Range/Units 05:20 05:20 RBC 2.95 L (3.65-5.03) M/mm3 Hgb 8.7 L (11.8-15.2) gm/dl Hct 25.9 L (35.5-45.6) % Seg Neuts % (Manual) 82.0 H (40.0-70.0) % Lymphocytes % (Manual) 7.0 L (13.4-35.0) % Monocytes % (Manual) 9.0 H (0.0-7.3) % Lymphocytes # (Manual) 0.6 L (1.2-5.4) K/mm3 Potassium 3.3 L (3.6-5.0) mmol/L Chloride 96.7 L (98-107) mmol/L Carbon Dioxide 32 H (22-30) mmol/L Creatinine 0.7 L (0.8-1.5) mg/dL Glucose 66 L (75-100) mg/dL POC Glucose (70-105) Calcium 7.9 L (8.4-10.2) mg/dL Total Protein 5.0 L (6.3-8.2) g/dL Albumin 2.2 L (3.9-5) g/dL
--- NOTE | 2017-06-25 10:58 | XRay Report ---
AP CHEST: HISTORY: Followup respiratory failure Mild cardiomegaly, mild vascular congestion small left pleural effusion appear relatively stable since 06/21/17. The feeding tube is been removed. Right venous catheter is unchanged terminating in the superior right atrium. IMPRESSION: Mild CHF.
--- NOTE | 2017-06-25 11:45 | Progress Note ---
Assessment and Plan 76 y/o male with acute blood loss anemia and hypotension, hemorrhagic shock vs septic shock, now with debridement/surgery of left lower ext, found to be infected 1. Hospice today. Subjective Date of service: 06/25/17 Principal diagnosis: Septic shock, PAD s/p left limb salvage procedures Interval history: No acute events overnight. Per CM, going to hospice today. No family at the bedside. Objective Vital Signs - 12hr 06/25/17 06/25/17 06/25/17 00:00 01:00 02:00 Temperature 98.8 F Pulse Rate 81 89 91 H Pulse Rate [ Radial] Respiratory 18 21 20 Rate Respiratory Rate [Left Anterior Leg] Respiratory Rate [Right Arm ] Blood Pressure 113/62 104/67 119/71 O2 Sat by Pulse 97 Oximetry 06/25/17 06/25/17 06/25/17 03:00 03:34 04:00 Temperature 98.2 F Pulse Rate 92 H 92 H 88 Pulse Rate [ Radial] Respiratory 24 23 Rate Respiratory Rate [Left Anterior Leg] Respiratory Rate [Right Arm ] Blood Pressure 129/73 113/68 122/59 O2 Sat by Pulse Oximetry 06/25/17 06/25/17 06/25/17 05:00 06:01 07:29 Temperature Pulse Rate 79 81 Pulse Rate [ Radial] Respiratory 19 25 H Rate Respiratory Rate [Left Anterior Leg] Respiratory Rate [Right Arm ] Blood Pressure 112/59 121/61 O2 Sat by Pulse 100 100 100 Oximetry 06/25/17 06/25/17 06/25/17 08:00 10:00 10:36 Temperature 98.8 F Pulse Rate 90 Pulse Rate [ 92 H Radial] Respiratory 20 20 Rate Respiratory 20 Rate [Left Anterior Leg] Respiratory 20 Rate [Right Arm ] Blood Pressure 140/70 O2 Sat by Pulse 97 Oximetry Constitutional: no acute distress, alert, asleep Eyes: non-icteric Neck: supple Effort: normal Ascultation: Bilateral: clear, diminished breath sounds, rhonchi (sporadic at the left base) Percussion: Bilateral: not dull Cardiovascular: regular rate and rhythm Gastrointestinal: normoactive bowel sounds, soft, non-tender, non-distended Extremities: no cyanosis, other (left BKA) Neurologic: non-focal exam (? weakness RUE) Psychiatric: other (unable to evaluate) CBC and BMP: 06/25/17 05:20 06/25/17 05:20 ABG, PT/INR, D-dimer: ABG POC ABG pH 7.424 (7.35-7.45) 06/16/17 11:28 POC ABG pCO2 30.3 (35-45) L 06/16/17 11:28 POC ABG pO2 118 (80-105) H 06/16/17 11:28 POC ABG HCO3 19.8 06/16/17 11:28 POC ABG Total CO2 21 06/16/17 11:28 POC ABG O2 Sat 99 06/16/17 11:28 PT/INR, D-dimer PT 15.9 Sec. (12.2-14.9) H 06/14/17 07:42 INR 1.28 (0.87-1.13) H 06/14/17 07:42 Abnormal lab findings: Abnormal Labs 06/13/17 06/13/17 06/13/17 00:18 05:20 10:28 WBC RBC Hgb 6.3 L 7.1 L Hct 19.6 L* 22.1 L RDW Plt Count Lymph % (Auto) [place] % (Auto) Lymph # [place] # Seg Neutrophils % Seg Neuts % (Manual) Lymphocytes % (Manual) Monocytes % (Manual) Nucleated RBC % Seg Neutrophils # Seg Neutrophils # Man Lymphocytes # (Manual) Monocytes # (Manual) PT INR POC ABG pH POC ABG pCO2 POC ABG pO2 Sodium Potassium Chloride Carbon Dioxide BUN Creatinine Glucose POC Glucose 289 H Calcium AST Total Protein Albumin Vancomycin Trough Crossmatch 06/13/17 06/13/17 06/13/17 12:00 16:20 18:45 WBC RBC Hgb 9.9 L 8.8 L Hct 28.8 L D 26.5 L RDW Plt Count Lymph % (Auto) [place] % (Auto) Lymph # [place] # Seg Neutrophils % Seg Neuts % (Manual) Lymphocytes % (Manual) Monocytes % (Manual) Nucleated RBC % Seg Neutrophils # Seg Neutrophils # Man Lymphocytes # (Manual) Monocytes # (Manual) PT INR POC ABG pH POC ABG pCO2 POC ABG pO2 Sodium Potassium Chloride Carbon Dioxide BUN Creatinine Glucose POC Glucose 292 H Calcium AST Total Protein Albumin Vancomycin Trough Crossmatch 06/13/17 06/13/17 06/13/17 18:49 21:13 Unknown WBC RBC Hgb 9.3 L Hct 27.8 L RDW Plt Count Lymph % (Auto) [place] % (Auto) Lymph # [place] # Seg Neutrophils % Seg Neuts % (Manual) Lymphocytes % (Manual) Monocytes % (Manual) Nucleated RBC % Seg Neutrophils # Seg Neutrophils # Man Lymphocytes # (Manual) Monocytes # (Manual) PT INR POC ABG pH POC ABG pCO2 POC ABG pO2 Sodium Potassium Chloride Carbon Dioxide BUN Creatinine Glucose POC Glucose 252 H 234 H Calcium AST Total Protein Albumin Vancomycin Trough Crossmatch 06/14/17 06/14/17 06/14/17 00:24 01:53 04:44 WBC RBC Hgb 8.5 L 8.2 L Hct 25.7 L 25.1 L RDW Plt Count Lymph % (Auto) [place] % (Auto) Lymph # [place] # Seg Neutrophils % Seg Neuts % (Manual) Lymphocytes % (Manual) Monocytes % (Manual) Nucleated RBC % Seg Neutrophils # Seg Neutrophils # Man Lymphocytes # (Manual) Monocytes # (Manual) PT INR POC ABG pH POC ABG pCO2 POC ABG pO2 Sodium Potassium Chloride Carbon Dioxide BUN Creatinine Glucose POC Glucose 213 H Calcium AST Total Protein Albumin Vancomycin Trough Crossmatch 06/14/17 06/14/17 06/14/17 05:49 07:42 07:42 WBC 12.2 H RBC 2.77 L Hgb 8.1 L Hct 25.0 L RDW 15.7 H Plt Count Lymph % (Auto) [place] % (Auto) Lymph # [place] # Seg Neutrophils % Seg Neuts % (Manual) Lymphocytes % (Manual) Monocytes % (Manual) Nucleated RBC % Seg Neutrophils # Seg Neutrophils # Man Lymphocytes # (Manual) Monocytes # (Manual) PT 15.9 H INR 1.28 H POC ABG pH POC ABG pCO2 POC ABG pO2 Sodium Potassium Chloride Carbon Dioxide BUN Creatinine Glucose POC Glucose 218 H Calcium AST Total Protein Albumin Vancomycin Trough Crossmatch 06/14/17 06/14/17 06/14/17 07:42 14:31 16:45 WBC 14.0 H RBC 3.61 L Hgb 10.9 L Hct 32.8 L D RDW 15.8 H Plt Count Lymph % (Auto) [place] % (Auto) Lymph # [place] # Seg Neutrophils % Seg Neuts % (Manual) Lymphocytes % (Manual) Monocytes % (Manual) Nucleated RBC % Seg Neutrophils # Seg Neutrophils # Man Lymphocytes # (Manual) Monocytes # (Manual) PT INR POC ABG pH POC ABG pCO2 POC ABG pO2 Sodium 146 H D Potassium Chloride 110.2 H Carbon Dioxide 15 L D BUN 25 H Creatinine Glucose 185 H POC Glucose 235 H Calcium 8.0 L AST Total Protein 5.1 L Albumin 2.0 L Vancomycin Trough Crossmatch 06/14/17 06/14/17 06/14/17 19:34 19:45 19:45 WBC 13.1 H RBC 3.33 L Hgb 9.9 L Hct 29.7 L RDW 15.7 H Plt Count 126 L Lymph % (Auto) [place] % (Auto) Lymph # [place] # Seg Neutrophils % Seg Neuts % (Manual) Lymphocytes % (Manual) Monocytes % (Manual) Nucleated RBC % Seg Neutrophils # Seg Neutrophils # Man Lymphocytes # (Manual) Monocytes # (Manual) PT INR POC ABG pH POC ABG pCO2 POC ABG pO2 Sodium 148 H Potassium 5.7 H D Chloride 108.5 H Carbon Dioxide 12 L BUN 29 H Creatinine 1.7 H Glucose 324 H POC Glucose 296 H Calcium 7.9 L AST Total Protein Albumin Vancomycin Trough Crossmatch 06/14/17 06/14/17 06/14/17 20:05 21:53 23:06 WBC RBC Hgb Hct RDW Plt Count Lymph % (Auto) [place] % (Auto) Lymph # [place] # Seg Neutrophils % Seg Neuts % (Manual) Lymphocytes % (Manual) Monocytes % (Manual) Nucleated RBC % Seg Neutrophils # Seg Neutrophils # Man Lymphocytes # (Manual) Monocytes # (Manual) PT INR POC ABG pH 7.241 L 7.298 L POC ABG pCO2 32.3 L 26.8 L POC ABG pO2 550 H 303 H Sodium Potassium Chloride Carbon Dioxide BUN Creatinine Glucose POC Glucose 259 H Calcium AST Total Protein Albumin Vancomycin Trough Crossmatch 06/15/17 06/15/17 06/15/17 02:08 06:00 06:15 WBC RBC Hgb 8.8 L Hct 26.4 L RDW Plt Count Lymph % (Auto) [place] % (Auto) Lymph # [place] # Seg Neutrophils % Seg Neuts % (Manual) Lymphocytes % (Manual) Monocytes % (Manual) Nucleated RBC % Seg Neutrophils # Seg Neutrophils # Man Lymphocytes # (Manual) Monocytes # (Manual) PT INR POC ABG pH POC ABG pCO2 POC ABG pO2 Sodium Potassium Chloride Carbon Dioxide BUN Creatinine Glucose POC Glucose 334 H 233 H Calcium AST Total Protein Albumin Vancomycin Trough Crossmatch 06/15/17 06/15/17 06/15/17 06:15 06:54 09:32 WBC RBC Hgb Hct RDW Plt Count Lymph % (Auto) [place] % (Auto) Lymph # [place] # Seg Neutrophils % Seg Neuts % (Manual) Lymphocytes % (Manual) Monocytes % (Manual) Nucleated RBC % Seg Neutrophils # Seg Neutrophils # Man Lymphocytes # (Manual) Monocytes # (Manual) PT INR POC ABG pH POC ABG pCO2 34.4 L POC ABG pO2 191 H Sodium 151 H Potassium Chloride 114.7 H Carbon Dioxide 18 L BUN 29 H Creatinine 1.8 H Glucose 259 H POC Glucose 229 H Calcium 7.7 L AST Total Protein Albumin Vancomycin Trough Crossmatch 06/15/17 06/15/17 06/15/17 11:35 12:32 13:36 WBC RBC Hgb Hct RDW Plt Count Lymph % (Auto) [place] % (Auto) Lymph # [place] # Seg Neutrophils % Seg Neuts % (Manual) Lymphocytes % (Manual) Monocytes % (Manual) Nucleated RBC % Seg Neutrophils # Seg Neutrophils # Man Lymphocytes # (Manual) Monocytes # (Manual) PT INR POC ABG pH POC ABG pCO2 POC ABG pO2 Sodium Potassium Chloride Carbon Dioxide BUN Creatinine Glucose POC Glucose 202 H 189 H Calcium AST Total Protein Albumin Vancomycin Trough Crossmatch See Detail 06/15/17 06/15/17 06/15/17 14:30 15:32 16:28 WBC RBC Hgb Hct RDW Plt Count Lymph % (Auto) [place] % (Auto) Lymph # [place] # Seg Neutrophils % Seg Neuts % (Manual) Lymphocytes % (Manual) Monocytes % (Manual) Nucleated RBC % Seg Neutrophils # Seg Neutrophils # Man Lymphocytes # (Manual) Monocytes # (Manual) PT INR POC ABG pH POC ABG pCO2 POC ABG pO2 Sodium Potassium Chloride Carbon Dioxide BUN Creatinine Glucose POC Glucose 142 H 106 H 119 H Calcium AST Total Protein Albumin Vancomycin Trough Crossmatch 06/15/17 06/15/17 06/15/17 17:36 19:30 20:51 WBC RBC Hgb Hct RDW Plt Count Lymph % (Auto) [place] % (Auto) Lymph # [place] # Seg Neutrophils % Seg Neuts % (Manual) Lymphocytes % (Manual) Monocytes % (Manual) Nucleated RBC % Seg Neutrophils # Seg Neutrophils # Man Lymphocytes # (Manual) Monocytes # (Manual) PT INR POC ABG pH POC ABG pCO2 POC ABG pO2 Sodium Potassium Chloride Carbon Dioxide BUN Creatinine Glucose POC Glucose 121 H 109 H 112 H Calcium AST Total Protein Albumin Vancomycin Trough Crossmatch 06/15/17 06/15/17 06/16/17 21:42 23:27 01:11 WBC RBC Hgb Hct RDW Plt Count Lymph % (Auto) [place] % (Auto) Lymph # [place] # Seg Neutrophils % Seg Neuts % (Manual) Lymphocytes % (Manual) Monocytes % (Manual) Nucleated RBC % Seg Neutrophils # Seg Neutrophils # Man Lymphocytes # (Manual) Monocytes # (Manual) PT INR POC ABG pH POC ABG pCO2 POC ABG pO2 Sodium Potassium Chloride Carbon Dioxide BUN Creatinine Glucose POC Glucose 122 H 142 H 162 H Calcium AST Total Protein Albumin Vancomycin Trough Crossmatch 06/16/17 06/16/17 06/16/17 02:03 02:57 04:05 WBC RBC Hgb Hct RDW Plt Count Lymph % (Auto) [place] % (Auto) Lymph # [place] # Seg Neutrophils % Seg Neuts % (Manual) Lymphocytes % (Manual) Monocytes % (Manual) Nucleated RBC % Seg Neutrophils # Seg Neutrophils # Man Lymphocytes # (Manual) Monocytes # (Manual) PT INR POC ABG pH POC ABG pCO2 POC ABG pO2 Sodium Potassium Chloride Carbon Dioxide BUN Creatinine Glucose POC Glucose 117 H 106 H 108 H Calcium AST Total Protein Albumin Vancomycin Trough Crossmatch 06/16/17 06/16/17 06/16/17 05:09 05:23 06:03 WBC RBC Hgb Hct RDW Plt Count Lymph % (Auto) [place] % (Auto) Lymph # [place] # Seg Neutrophils % Seg Neuts % (Manual) Lymphocytes % (Manual) Monocytes % (Manual) Nucleated RBC % Seg Neutrophils # Seg Neutrophils # Man Lymphocytes # (Manual) Monocytes # (Manual) PT INR POC ABG pH POC ABG pCO2 POC ABG pO2 Sodium Potassium Chloride Carbon Dioxide BUN Creatinine Glucose POC Glucose 114 H 125 H 138 H Calcium AST Total Protein Albumin Vancomycin Trough Crossmatch 06/16/17 06/16/17 06/16/17 06:25 06:25 07:07 WBC 14.7 H RBC 3.28 L Hgb 9.8 L Hct 29.1 L RDW 15.7 H Plt Count 117 L Lymph % (Auto) [place] % (Auto) Lymph # [place] # Seg Neutrophils % Seg Neuts % (Manual) 81.0 H Lymphocytes % (Manual) 3.0 L Monocytes % (Manual) 15.0 H Nucleated RBC % Seg Neutrophils # Seg Neutrophils # Man 11.9 H Lymphocytes # (Manual) 0.4 L Monocytes # (Manual) 2.2 H PT INR POC ABG pH POC ABG pCO2 POC ABG pO2 Sodium 155 H Potassium Chloride 117.9 H Carbon Dioxide BUN 22 H Creatinine Glucose 107 H POC Glucose 127 H Calcium 7.9 L AST 57 H Total Protein 5.4 L Albumin 2.4 L Vancomycin Trough Crossmatch 06/16/17 06/16/17 06/16/17 08:00 09:07 10:11 WBC RBC Hgb Hct RDW Plt Count Lymph % (Auto) [place] % (Auto) Lymph # [place] # Seg Neutrophils % Seg Neuts % (Manual) Lymphocytes % (Manual) Monocytes % (Manual) Nucleated RBC % Seg Neutrophils # Seg Neutrophils # Man Lymphocytes # (Manual) Monocytes # (Manual) PT INR POC ABG pH POC ABG pCO2 POC ABG pO2 Sodium Potassium Chloride Carbon Dioxide BUN Creatinine Glucose POC Glucose 113 H 106 H 107 H Calcium AST Total Protein Albumin Vancomycin Trough Crossmatch 06/16/17 06/16/17 06/16/17 10:59 11:28 12:11 WBC RBC Hgb Hct RDW Plt Count Lymph % (Auto) [place] % (Auto) Lymph # [place] # Seg Neutrophils % Seg Neuts % (Manual) Lymphocytes % (Manual) Monocytes % (Manual) Nucleated RBC % Seg Neutrophils # Seg Neutrophils # Man Lymphocytes # (Manual) Monocytes # (Manual) PT INR POC ABG pH POC ABG pCO2 30.3 L POC ABG pO2 118 H Sodium Potassium Chloride Carbon Dioxide BUN Creatinine Glucose POC Glucose 110 H 109 H Calcium AST Total Protein Albumin Vancomycin Trough Crossmatch 06/16/17 06/16/17 06/16/17 13:13 15:40 18:18 WBC RBC Hgb Hct RDW Plt Count Lymph % (Auto) [place] % (Auto) Lymph # [place] # Seg Neutrophils % Seg Neuts % (Manual) Lymphocytes % (Manual) Monocytes % (Manual) Nucleated RBC % Seg Neutrophils # Seg Neutrophils # Man Lymphocytes # (Manual) Monocytes # (Manual) PT INR POC ABG pH POC ABG pCO2 POC ABG pO2 Sodium Potassium Chloride Carbon Dioxide BUN Creatinine Glucose POC Glucose 111 H 143 H 109 H Calcium AST Total Protein Albumin Vancomycin Trough Crossmatch 0806/16/17 06/16/17 19:08 20:05 21:00 WBC RBC Hgb Hct RDW Plt Count Lymph % (Auto) [place] % (Auto) Lymph # [place] # Seg Neutrophils % Seg Neuts % (Manual) Lymphocytes % (Manual) Monocytes % (Manual) Nucleated RBC % Seg Neutrophils # Seg Neutrophils # Man Lymphocytes # (Manual) Monocytes # (Manual) PT INR POC ABG pH POC ABG pCO2 POC ABG pO2 Sodium Potassium Chloride Carbon Dioxide BUN Creatinine Glucose POC Glucose 107 H 106 H 119 H Calcium AST Total Protein Albumin Vancomycin Trough Crossmatch 06/16/17 06/17/17 06/17/17 22:01 01:04 02:02 WBC RBC Hgb Hct RDW Plt Count Lymph % (Auto) [place] % (Auto) Lymph # [place] # Seg Neutrophils % Seg Neuts % (Manual) Lymphocytes % (Manual) Monocytes % (Manual) Nucleated RBC % Seg Neutrophils # Seg Neutrophils # Man Lymphocytes # (Manual) Monocytes # (Manual) PT INR POC ABG pH POC ABG pCO2 POC ABG pO2 Sodium Potassium Chloride Carbon Dioxide BUN Creatinine Glucose POC Glucose 142 H 106 H 108 H Calcium AST Total Protein Albumin Vancomycin Trough Crossmatch 06/17/17 06/17/17 06/17/17 02:44 03:42 04:40 WBC 16.4 H RBC 3.14 L Hgb 9.4 L Hct 28.5 L RDW 16.0 H Plt Count 107 L Lymph % (Auto) 5.0 L [place] % (Auto) 10.0 H Lymph # 0.8 L [place] # 1.6 H Seg Neutrophils % 84.4 H Seg Neuts % (Manual) Lymphocytes % (Manual) Monocytes % (Manual) Nucleated RBC % Seg Neutrophils # 13.8 H Seg Neutrophils # Man Lymphocytes # (Manual) Monocytes # (Manual) PT INR POC ABG pH POC ABG pCO2 POC ABG pO2 Sodium Potassium Chloride Carbon Dioxide BUN Creatinine Glucose POC Glucose 109 H 113 H Calcium AST Total Protein Albumin Vancomycin Trough Crossmatch 06/17/17 06/17/17 06/17/17 04:40 04:47 05:33 WBC RBC Hgb Hct RDW Plt Count Lymph % (Auto) [place] % (Auto) Lymph # [place] # Seg Neutrophils % Seg Neuts % (Manual) Lymphocytes % (Manual) Monocytes % (Manual) Nucleated RBC % Seg Neutrophils # Seg Neutrophils # Man Lymphocytes # (Manual) Monocytes # (Manual) PT INR POC ABG pH POC ABG pCO2 POC ABG pO2 Sodium 150 H Potassium Chloride 110.8 H Carbon Dioxide 18 L BUN 25 H Creatinine Glucose 107 H POC Glucose 132 H 124 H Calcium 8.1 L AST 47 H Total Protein 5.4 L Albumin 2.3 L Vancomycin Trough Crossmatch 06/17/17 06/17/17 06/17/17 07:19 08:02 08:53 WBC RBC Hgb Hct RDW Plt Count Lymph % (Auto) [place] % (Auto) Lymph # [place] # Seg Neutrophils % Seg Neuts % (Manual) Lymphocytes % (Manual) Monocytes % (Manual) Nucleated RBC % Seg Neutrophils # Seg Neutrophils # Man Lymphocytes # (Manual) Monocytes # (Manual) PT INR POC ABG pH POC ABG pCO2 POC ABG pO2 Sodium Potassium Chloride Carbon Dioxide BUN Creatinine Glucose POC Glucose 115 H 119 H 130 H Calcium AST Total Protein Albumin Vancomycin Trough Crossmatch 06/17/17 06/17/17 06/17/17 10:00 11:05 12:08 WBC RBC Hgb Hct RDW Plt Count Lymph % (Auto) [place] % (Auto) Lymph # [place] # Seg Neutrophils % Seg Neuts % (Manual) Lymphocytes % (Manual) Monocytes % (Manual) Nucleated RBC % Seg Neutrophils # Seg Neutrophils # Man Lymphocytes # (Manual) Monocytes # (Manual) PT INR POC ABG pH POC ABG pCO2 POC ABG pO2 Sodium Potassium Chloride Carbon Dioxide BUN Creatinine Glucose POC Glucose 122 H 131 H 125 H Calcium AST Total Protein Albumin Vancomycin Trough Crossmatch 06/17/17 06/17/17 06/17/17 13:20 14:09 15:13 WBC RBC Hgb Hct RDW Plt Count Lymph % (Auto) [place] % (Auto) Lymph # [place] # Seg Neutrophils % Seg Neuts % (Manual) Lymphocytes % (Manual) Monocytes % (Manual) Nucleated RBC % Seg Neutrophils # Seg Neutrophils # Man Lymphocytes # (Manual) Monocytes # (Manual) PT INR POC ABG pH POC ABG pCO2 POC ABG pO2 Sodium Potassium Chloride Carbon Dioxide BUN Creatinine Glucose POC Glucose 133 H 114 H 137 H Calcium AST Total Protein Albumin Vancomycin Trough Crossmatch 06/17/17 06/17/17 06/17/17 16:09 16:53 17:46 WBC RBC Hgb Hct RDW Plt Count Lymph % (Auto) [place] % (Auto) Lymph # [place] # Seg Neutrophils % Seg Neuts % (Manual) Lymphocytes % (Manual) Monocytes % (Manual) Nucleated RBC % Seg Neutrophils # Seg Neutrophils # Man Lymphocytes # (Manual) Monocytes # (Manual) PT INR POC ABG pH POC ABG pCO2 POC ABG pO2 Sodium Potassium Chloride Carbon Dioxide BUN Creatinine Glucose POC Glucose 120 H 123 H 112 H Calcium AST Total Protein Albumin Vancomycin Trough Crossmatch 06/17/17 06/17/17 06/17/17 20:36 21:04 21:47 WBC RBC Hgb Hct RDW Plt Count Lymph % (Auto) [place] % (Auto) Lymph # [place] # Seg Neutrophils % Seg Neuts % (Manual) Lymphocytes % (Manual) Monocytes % (Manual) Nucleated RBC % Seg Neutrophils # Seg Neutrophils # Man Lymphocytes # (Manual) Monocytes # (Manual) PT INR POC ABG pH POC ABG pCO2 POC ABG pO2 Sodium Potassium Chloride Carbon Dioxide BUN Creatinine Glucose POC Glucose 127 H 144 H 124 H Calcium AST Total Protein Albumin Vancomycin Trough Crossmatch 06/17/17 06/17/17 06/18/17 22:52 23:49 00:48 WBC RBC Hgb Hct RDW Plt Count Lymph % (Auto) [place] % (Auto) Lymph # [place] # Seg Neutrophils % Seg Neuts % (Manual) Lymphocytes % (Manual) Monocytes % (Manual) Nucleated RBC % Seg Neutrophils # Seg Neutrophils # Man Lymphocytes # (Manual) Monocytes # (Manual) PT INR POC ABG pH POC ABG pCO2 POC ABG pO2 Sodium Potassium Chloride Carbon Dioxide BUN Creatinine Glucose POC Glucose 175 H 162 H 139 H Calcium AST Total Protein Albumin Vancomycin Trough Crossmatch 06/18/17 06/18/17 06/18/17 01:57 03:06 04:03 WBC RBC Hgb Hct RDW Plt Count Lymph % (Auto) [place] % (Auto) Lymph # [place] # Seg Neutrophils % Seg Neuts % (Manual) Lymphocytes % (Manual) Monocytes % (Manual) Nucleated RBC % Seg Neutrophils # Seg Neutrophils # Man Lymphocytes # (Manual) Monocytes # (Manual) PT INR POC ABG pH POC ABG pCO2 POC ABG pO2 Sodium Potassium Chloride Carbon Dioxide BUN Creatinine Glucose POC Glucose 146 H 213 H 159 H Calcium AST Total Protein Albumin Vancomycin Trough Crossmatch 06/18/17 06/18/17 06/18/17 04:57 05:00 05:00 WBC 17.1 H RBC 3.52 L Hgb 10.5 L Hct 32.3 L RDW 15.7 H Plt Count 120 L Lymph % (Auto) 6.8 L [place] % (Auto) 9.6 H Lymph # [place] # 1.6 H Seg Neutrophils % 82.8 H Seg Neuts % (Manual) Lymphocytes % (Manual) Monocytes % (Manual) Nucleated RBC % Seg Neutrophils # 14.1 H Seg Neutrophils # Man Lymphocytes # (Manual) Monocytes # (Manual) PT INR POC ABG pH POC ABG pCO2 POC ABG pO2 Sodium 153 H Potassium Chloride 113.4 H Carbon Dioxide 17 L BUN 28 H Creatinine Glucose 150 H POC Glucose 195 H Calcium AST Total Protein 5.6 L Albumin 2.2 L Vancomycin Trough Crossmatch 06/18/17 06/18/17 06/18/17 05:00 05:23 06:23 WBC RBC Hgb Hct RDW Plt Count Lymph % (Auto) [place] % (Auto) Lymph # [place] # Seg Neutrophils % Seg Neuts % (Manual) Lymphocytes % (Manual) Monocytes % (Manual) Nucleated RBC % Seg Neutrophils # Seg Neutrophils # Man Lymphocytes # (Manual) Monocytes # (Manual) PT INR POC ABG pH POC ABG pCO2 POC ABG pO2 Sodium Potassium Chloride Carbon Dioxide BUN Creatinine Glucose POC Glucose 204 H 159 H Calcium AST Total Protein Albumin Vancomycin Trough 29.4 H Crossmatch 06/18/17 06/18/17 06/18/17 08:06 09:02 11:01 WBC RBC Hgb Hct RDW Plt Count Lymph % (Auto) [place] % (Auto) Lymph # [place] # Seg Neutrophils % Seg Neuts % (Manual) Lymphocytes % (Manual) Monocytes % (Manual) Nucleated RBC % Seg Neutrophils # Seg Neutrophils # Man Lymphocytes # (Manual) Monocytes # (Manual) PT INR POC ABG pH POC ABG pCO2 POC ABG pO2 Sodium Potassium Chloride Carbon Dioxide BUN Creatinine Glucose POC Glucose 120 H 119 H 128 H Calcium AST Total Protein Albumin Vancomycin Trough Crossmatch 06/18/17 06/18/17 06/18/17 11:57 13:04 13:58 WBC RBC Hgb Hct RDW Plt Count Lymph % (Auto) [place] % (Auto) Lymph # [place] # Seg Neutrophils % Seg Neuts % (Manual) Lymphocytes % (Manual) Monocytes % (Manual) Nucleated RBC % Seg Neutrophils # Seg Neutrophils # Man Lymphocytes # (Manual) Monocytes # (Manual) PT INR POC ABG pH POC ABG pCO2 POC ABG pO2 Sodium Potassium Chloride Carbon Dioxide BUN Creatinine Glucose POC Glucose 118 H 127 H 148 H Calcium AST Total Protein Albumin Vancomycin Trough Crossmatch 06/18/17 06/18/17 06/18/17 14:50 16:16 18:00 WBC RBC Hgb Hct RDW Plt Count Lymph % (Auto) [place] % (Auto) Lymph # [place] # Seg Neutrophils % Seg Neuts % (Manual) Lymphocytes % (Manual) Monocytes % (Manual) Nucleated RBC % Seg Neutrophils # Seg Neutrophils # Man Lymphocytes # (Manual) Monocytes # (Manual) PT INR POC ABG pH POC ABG pCO2 POC ABG pO2 Sodium Potassium Chloride Carbon Dioxide BUN Creatinine Glucose POC Glucose 113 H 123 H Calcium AST Total Protein Albumin Vancomycin Trough 21.7 H Crossmatch 06/18/17 06/18/17 06/18/17 18:01 18:59 20:11 WBC RBC Hgb Hct RDW Plt Count Lymph % (Auto) [place] % (Auto) Lymph # [place] # Seg Neutrophils % Seg Neuts % (Manual) Lymphocytes % (Manual) Monocytes % (Manual) Nucleated RBC % Seg Neutrophils # Seg Neutrophils # Man Lymphocytes # (Manual) Monocytes # (Manual) PT INR POC ABG pH POC ABG pCO2 POC ABG pO2 Sodium Potassium Chloride Carbon Dioxide BUN Creatinine Glucose POC Glucose 125 H 128 H 108 H Calcium AST Total Protein Albumin Vancomycin Trough Crossmatch 06/18/17 06/18/17 06/18/17 21:21 22:22 23:04 WBC RBC Hgb Hct RDW Plt Count Lymph % (Auto) [place] % (Auto) Lymph # [place] # Seg Neutrophils % Seg Neuts % (Manual) Lymphocytes % (Manual) Monocytes % (Manual) Nucleated RBC % Seg Neutrophils # Seg Neutrophils # Man Lymphocytes # (Manual) Monocytes # (Manual) PT INR POC ABG pH POC ABG pCO2 POC ABG pO2 Sodium Potassium Chloride Carbon Dioxide BUN Creatinine Glucose POC Glucose 107 H 118 H 171 H Calcium AST Total Protein Albumin Vancomycin Trough Crossmatch 06/19/17 06/19/17 06/19/17 00:43 01:29 02:06 WBC RBC Hgb Hct RDW Plt Count Lymph % (Auto) [place] % (Auto) Lymph # [place] # Seg Neutrophils % Seg Neuts % (Manual) Lymphocytes % (Manual) Monocytes % (Manual) Nucleated RBC % Seg Neutrophils # Seg Neutrophils # Man Lymphocytes # (Manual) Monocytes # (Manual) PT INR POC ABG pH POC ABG pCO2 POC ABG pO2 Sodium Potassium Chloride Carbon Dioxide BUN Creatinine Glucose POC Glucose 141 H 124 H 137 H Calcium AST Total Protein Albumin Vancomycin Trough Crossmatch 06/19/17 06/19/17 06/19/17 03:01 04:37 05:51 WBC RBC Hgb Hct RDW Plt Count Lymph % (Auto) [place] % (Auto) Lymph # [place] # Seg Neutrophils % Seg Neuts % (Manual) Lymphocytes % (Manual) Monocytes % (Manual) Nucleated RBC % Seg Neutrophils # Seg Neutrophils # Man Lymphocytes # (Manual) Monocytes # (Manual) PT INR POC ABG pH POC ABG pCO2 POC ABG pO2 Sodium Potassium Chloride Carbon Dioxide BUN Creatinine Glucose POC Glucose 135 H 126 H 132 H Calcium AST Total Protein Albumin Vancomycin Trough Crossmatch 06/19/17 06/19/17 06/19/17 06:50 06:50 07:59 WBC 14.5 H RBC 3.44 L Hgb 10.2 L Hct 30.6 L RDW 15.4 H Plt Count 139 L Lymph % (Auto) 8.2 L [place] % (Auto) 10.5 H Lymph # [place] # 1.5 H Seg Neutrophils % 79.8 H Seg Neuts % (Manual) Lymphocytes % (Manual) Monocytes % (Manual) Nucleated RBC % Seg Neutrophils # 11.5 H Seg Neutrophils # Man Lymphocytes # (Manual) Monocytes # (Manual) PT INR POC ABG pH POC ABG pCO2 POC ABG pO2 Sodium 154 H Potassium Chloride 115.0 H Carbon Dioxide BUN 24 H Creatinine Glucose 106 H POC Glucose 132 H Calcium 7.8 L AST Total Protein 4.9 L Albumin 2.3 L Vancomycin Trough Crossmatch 06/19/17 06/19/17 06/19/17 09:06 10:05 11:52 WBC RBC Hgb Hct RDW Plt Count Lymph % (Auto) [place] % (Auto) Lymph # [place] # Seg Neutrophils % Seg Neuts % (Manual) Lymphocytes % (Manual) Monocytes % (Manual) Nucleated RBC % Seg Neutrophils # Seg Neutrophils # Man Lymphocytes # (Manual) Monocytes # (Manual) PT INR POC ABG pH POC ABG pCO2 POC ABG pO2 Sodium Potassium Chloride Carbon Dioxide BUN Creatinine Glucose POC Glucose 124 H 124 H 157 H Calcium AST Total Protein Albumin Vancomycin Trough Crossmatch 06/19/17 06/19/17 06/19/17 13:37 14:09 16:07 WBC RBC Hgb Hct RDW Plt Count Lymph % (Auto) [place] % (Auto) Lymph # [place] # Seg Neutrophils % Seg Neuts % (Manual) Lymphocytes % (Manual) Monocytes % (Manual) Nucleated RBC % Seg Neutrophils # Seg Neutrophils # Man Lymphocytes # (Manual) Monocytes # (Manual) PT INR POC ABG pH POC ABG pCO2 POC ABG pO2 Sodium Potassium Chloride Carbon Dioxide BUN Creatinine Glucose POC Glucose 143 H 143 H 183 H Calcium AST Total Protein Albumin Vancomycin Trough Crossmatch 06/19/17 06/20/17 06/20/17 17:32 02:02 03:12 WBC RBC Hgb Hct RDW Plt Count Lymph % (Auto) [place] % (Auto) Lymph # [place] # Seg Neutrophils % Seg Neuts % (Manual) Lymphocytes % (Manual) Monocytes % (Manual) Nucleated RBC % Seg Neutrophils # Seg Neutrophils # Man Lymphocytes # (Manual) Monocytes # (Manual) PT INR POC ABG pH POC ABG pCO2 POC ABG pO2 Sodium Potassium Chloride Carbon Dioxide BUN Creatinine Glucose POC Glucose 132 H 62 L 120 H Calcium AST Total Protein Albumin Vancomycin Trough Crossmatch 06/20/17 06/20/17 06/20/17 04:00 04:00 04:01 WBC 15.0 H RBC 3.21 L Hgb 9.6 L Hct 28.7 L RDW Plt Count Lymph % (Auto) 7.0 L [place] % (Auto) 10.9 H Lymph # 1.1 L [place] # 1.6 H Seg Neutrophils % 81.2 H Seg Neuts % (Manual) Lymphocytes % (Manual) Monocytes % (Manual) Nucleated RBC % Seg Neutrophils # 12.2 H Seg Neutrophils # Man Lymphocytes # (Manual) Monocytes # (Manual) PT INR POC ABG pH POC ABG pCO2 POC ABG pO2 Sodium Potassium Chloride Carbon Dioxide BUN 21 H Creatinine Glucose 172 H POC Glucose 151 H Calcium 7.4 L AST Total Protein 4.9 L Albumin 2.0 L Vancomycin Trough Crossmatch 06/20/17 06/20/17 06/20/17 05:50 08:14 11:28 WBC RBC Hgb Hct RDW Plt Count Lymph % (Auto) [place] % (Auto) Lymph # [place] # Seg Neutrophils % Seg Neuts % (Manual) Lymphocytes % (Manual) Monocytes % (Manual) Nucleated RBC % Seg Neutrophils # Seg Neutrophils # Man Lymphocytes # (Manual) Monocytes # (Manual) PT INR POC ABG pH POC ABG pCO2 POC ABG pO2 Sodium Potassium Chloride Carbon Dioxide BUN Creatinine Glucose POC Glucose 190 H 142 H 115 H Calcium AST Total Protein Albumin Vancomycin Trough Crossmatch 06/20/17 06/20/17 06/21/17 14:13 17:42 00:12 WBC RBC Hgb Hct RDW Plt Count Lymph % (Auto) [place] % (Auto) Lymph # [place] # Seg Neutrophils % Seg Neuts % (Manual) Lymphocytes % (Manual) Monocytes % (Manual) Nucleated RBC % Seg Neutrophils # Seg Neutrophils # Man Lymphocytes # (Manual) Monocytes # (Manual) PT INR POC ABG pH POC ABG pCO2 POC ABG pO2 Sodium Potassium Chloride Carbon Dioxide BUN Creatinine Glucose POC Glucose 145 H 272 H 327 H Calcium AST Total Protein Albumin Vancomycin Trough Crossmatch 06/21/17 06/21/17 06/21/17 05:10 05:10 05:30 WBC 14.0 H RBC 3.24 L Hgb 9.6 L Hct 28.8 L RDW Plt Count Lymph % (Auto) 9.4 L [place] % (Auto) 13.5 H Lymph # [place] # 1.9 H Seg Neutrophils % 76.1 H Seg Neuts % (Manual) Lymphocytes % (Manual) Monocytes % (Manual) Nucleated RBC % Seg Neutrophils # 10.7 H Seg Neutrophils # Man Lymphocytes # (Manual) Monocytes # (Manual) PT INR POC ABG pH POC ABG pCO2 POC ABG pO2 Sodium Potassium Chloride Carbon Dioxide BUN 22 H Creatinine Glucose 235 H POC Glucose 226 H Calcium 7.7 L AST Total Protein 5.4 L Albumin 2.2 L Vancomycin Trough Crossmatch 06/21/17 06/21/17 06/22/17 11:38 17:27 00:15 WBC RBC Hgb Hct RDW Plt Count Lymph % (Auto) [place] % (Auto) Lymph # [place] # Seg Neutrophils % Seg Neuts % (Manual) Lymphocytes % (Manual) Monocytes % (Manual) Nucleated RBC % Seg Neutrophils # Seg Neutrophils # Man Lymphocytes # (Manual) Monocytes # (Manual) PT INR POC ABG pH POC ABG pCO2 POC ABG pO2 Sodium Potassium Chloride Carbon Dioxide BUN Creatinine Glucose POC Glucose 243 H 233 H 284 H Calcium AST Total Protein Albumin Vancomycin Trough Crossmatch 06/22/17 06/22/17 06/22/17 05:15 05:15 05:18 WBC 13.2 H RBC 3.24 L Hgb 9.5 L Hct 29.0 L RDW Plt Count Lymph % (Auto) 8.9 L [place] % (Auto) 15.7 H Lymph # [place] # 2.1 H Seg Neutrophils % 74.5 H Seg Neuts % (Manual) Lymphocytes % (Manual) Monocytes % (Manual) Nucleated RBC % Seg Neutrophils # 9.8 H Seg Neutrophils # Man Lymphocytes # (Manual) Monocytes # (Manual) PT INR POC ABG pH POC ABG pCO2 POC ABG pO2 Sodium Potassium Chloride Carbon Dioxide BUN Creatinine Glucose 152 H POC Glucose 145 H Calcium 7.8 L AST Total Protein 5.1 L Albumin 2.2 L Vancomycin Trough Crossmatch 06/22/17 06/22/17 06/22/17 12:00 13:19 17:05 WBC RBC Hgb Hct RDW Plt Count Lymph % (Auto) [place] % (Auto) Lymph # [place] # Seg Neutrophils % Seg Neuts % (Manual) Lymphocytes % (Manual) Monocytes % (Manual) Nucleated RBC % Seg Neutrophils # Seg Neutrophils # Man Lymphocytes # (Manual) Monocytes # (Manual) PT INR POC ABG pH POC ABG pCO2 POC ABG pO2 Sodium Potassium Chloride Carbon Dioxide BUN Creatinine Glucose POC Glucose 234 H 214 H 219 H Calcium AST Total Protein Albumin Vancomycin Trough Crossmatch 06/23/17 06/23/17 06/23/17 00:23 05:35 06:38 WBC RBC Hgb 7.6 L Hct 23.9 L RDW Plt Count Lymph % (Auto) [place] % (Auto) Lymph # [place] # Seg Neutrophils % Seg Neuts % (Manual) Lymphocytes % (Manual) Monocytes % (Manual) Nucleated RBC % Seg Neutrophils # Seg Neutrophils # Man Lymphocytes # (Manual) Monocytes # (Manual) PT INR POC ABG pH POC ABG pCO2 POC ABG pO2 Sodium Potassium Chloride Carbon Dioxide BUN Creatinine Glucose POC Glucose 186 H 178 H Calcium AST Total Protein Albumin Vancomycin Trough Crossmatch 06/23/17 06/23/17 06/23/17 06:38 12:23 17:00 WBC RBC Hgb Hct RDW Plt Count Lymph % (Auto) [place] % (Auto) Lymph # [place] # Seg Neutrophils % Seg Neuts % (Manual) Lymphocytes % (Manual) Monocytes % (Manual) Nucleated RBC % Seg Neutrophils # Seg Neutrophils # Man Lymphocytes # (Manual) Monocytes # (Manual) PT INR POC ABG pH POC ABG pCO2 POC ABG pO2 Sodium Potassium Chloride Carbon Dioxide BUN Creatinine Glucose 167 H POC Glucose 232 H Calcium 8.0 L AST Total Protein Albumin Vancomycin Trough Crossmatch See Detail 06/23/17 06/23/17 06/23/17 17:43 20:59 21:06 WBC RBC Hgb Hct RDW Plt Count Lymph % (Auto) [place] % (Auto) Lymph # [place] # Seg Neutrophils % Seg Neuts % (Manual) Lymphocytes % (Manual) Monocytes % (Manual) Nucleated RBC % Seg Neutrophils # Seg Neutrophils # Man Lymphocytes # (Manual) Monocytes # (Manual) PT INR POC ABG pH POC ABG pCO2 POC ABG pO2 Sodium Potassium Chloride Carbon Dioxide BUN Creatinine Glucose POC Glucose 141 H 179 H 170 H Calcium AST Total Protein Albumin Vancomycin Trough Crossmatch 06/23/17 06/24/17 06/24/17 23:21 04:00 04:00 WBC 11.2 H RBC 3.01 L Hgb 8.6 L Hct 26.8 L RDW Plt Count Lymph % (Auto) [place] % (Auto) Lymph # [place] # Seg Neutrophils % Seg Neuts % (Manual) 75.0 H Lymphocytes % (Manual) 13.0 L Monocytes % (Manual) 11.0 H Nucleated RBC % 1.0 H Seg Neutrophils # Seg Neutrophils # Man 8.4 H Lymphocytes # (Manual) Monocytes # (Manual) 1.2 H PT INR POC ABG pH POC ABG pCO2 POC ABG pO2 Sodium 146 H Potassium 3.2 L Chloride Carbon Dioxide 32 H D BUN Creatinine Glucose 54 L POC Glucose 186 H Calcium 8.1 L AST Total Protein 5.5 L Albumin 2.1 L Vancomycin Trough Crossmatch 06/24/17 06/24/17 06/24/17 05:34 05:36 18:22 WBC RBC Hgb Hct RDW Plt Count Lymph % (Auto) [place] % (Auto) Lymph # [place] # Seg Neutrophils % Seg Neuts % (Manual) Lymphocytes % (Manual) Monocytes % (Manual) Nucleated RBC % Seg Neutrophils # Seg Neutrophils # Man Lymphocytes # (Manual) Monocytes # (Manual) PT INR POC ABG pH POC ABG pCO2 POC ABG pO2 Sodium Potassium Chloride Carbon Dioxide BUN Creatinine Glucose POC Glucose 43 L 54 L 195 H Calcium AST Total Protein Albumin Vancomycin Trough Crossmatch 06/24/17 06/24/17 06/25/17 21:46 23:49 05:20 WBC RBC 2.95 L Hgb 8.7 L Hct 25.9 L RDW Plt Count Lymph % (Auto) [place] % (Auto) Lymph # [place] # Seg Neutrophils % Seg Neuts % (Manual) 82.0 H Lymphocytes % (Manual) 7.0 L Monocytes % (Manual) 9.0 H Nucleated RBC % Seg Neutrophils # Seg Neutrophils # Man Lymphocytes # (Manual) 0.6 L Monocytes # (Manual) PT INR POC ABG pH POC ABG pCO2 POC ABG pO2 Sodium Potassium Chloride Carbon Dioxide BUN Creatinine Glucose POC Glucose 230 H 191 H Calcium AST Total Protein Albumin Vancomycin Trough Crossmatch 06/25/17 05:20 WBC RBC Hgb Hct RDW Plt Count Lymph % (Auto) [place] % (Auto) Lymph # [place] # Seg Neutrophils % Seg Neuts % (Manual) Lymphocytes % (Manual) Monocytes % (Manual) Nucleated RBC % Seg Neutrophils # Seg Neutrophils # Man Lymphocytes # (Manual) Monocytes # (Manual) PT INR POC ABG pH POC ABG pCO2 POC ABG pO2 Sodium Potassium 3.3 L Chloride 96.7 L Carbon Dioxide 32 H BUN Creatinine 0.7 L Glucose 66 L POC Glucose Calcium 7.9 L AST Total Protein 5.0 L Albumin 2.2 L Vancomycin Trough Crossmatch
--- NOTE | 2017-06-25 12:01 | Progress Note ---
Assessment and Plan Septic shock Infected hematoma of the left femoral; hematoma and infected left femoral tibial graft s/p revision of the same 06/14/17 Acute blood loss anemia requiring blood transfusion Hyponatremia PVD/PAD status left AKA Hx of CAD s/p CABG fixed inferior and inferolateral wall defect consistent with prior DE but no reversible ischemia on MPI 05/2017 Ischemic cardiomyopathy ejection fraction 40-45% on echocardiogram 05/2017 Hypertension Diabetes Hyperlipidemia Multifocal atrial tachycardia on tele on diltiazem for suppression DNR status Conservative cardiac management. Subjective Date of service: 06/25/17 Principal diagnosis: Septic shock, PAD s/p left limb salvage procedures Interval history: No cardiac events overnight. Objective Vital Signs Temp Pulse Pulse Pulse Resp Resp Resp 06/25/17 10:36 20 06/25/17 10:00 90 20 20 06/25/17 08:00 98.8 F 92 H 20 06/25/17 07:29 06/25/17 06:01 81 25 H 06/25/17 05:00 79 19 06/25/17 04:00 98.2 F 88 23 06/25/17 03:34 92 H 06/25/17 03:00 92 H 24 06/25/17 02:00 91 H 20 06/25/17 01:00 89 21 06/25/17 00:00 98.8 F 81 18 06/24/17 23:00 87 17 06/24/17 22:25 97 H 21 06/24/17 22:00 94 H 19 06/24/17 21:00 100 H 19 06/24/17 20:28 06/24/17 20:00 98.5 F 110 H 87 24 06/24/17 19:40 103 H 06/24/17 19:00 105 H 19 06/24/17 18:00 89 18 06/24/17 17:00 87 17 06/24/17 16:00 98.2 F 95 H 20 06/24/17 15:00 93 H 18 06/24/17 14:00 91 H 24 06/24/17 13:00 91 H 22 BP Pulse Ox 06/25/17 10:36 06/25/17 10:00 06/25/17 08:00 140/70 97 06/25/17 07:29 100 06/25/17 06:01 121/61 100 06/25/17 05:00 112/59 100 06/25/17 04:00 122/59 06/25/17 03:34 113/68 06/25/17 03:00 129/73 06/25/17 02:00 119/71 06/25/17 01:00 104/67 06/25/17 00:00 113/62 97 06/24/17 23:00 111/65 99 06/24/17 22:25 111/67 99 06/24/17 22:00 108/61 100 06/24/17 21:00 130/83 99 06/24/17 20:28 100 06/24/17 20:00 123/86 98 06/24/17 19:40 119/66 06/24/17 19:00 112/65 99 06/24/17 18:00 119/42 99 06/24/17 17:00 113/59 99 06/24/17 16:00 121/67 98 06/24/17 15:00 108/56 100 06/24/17 14:00 106/67 100 06/24/17 13:00 130/74 99 - Physical Examination General: No Apparent Distress Cardiac: Positive: Irregularly Regular - Labs and Meds Cardiac Enzymes 06/25/17 Range/Units 05:20 AST 15 (5-40) units/L CBC 06/25/17 Range/Units 05:20 WBC 8.8 (4.5-11.0) K/mm3 RBC 2.95 L (3.65-5.03) M/mm3 Hgb 8.7 L (11.8-15.2) gm/dl Hct 25.9 L (35.5-45.6) % Plt Count 272 (140-440) K/mm3 Comprehensive Metabolic Panel 06/25/17 Range/Units 05:20 Sodium 139 (137-145) mmol/L Potassium 3.3 L (3.6-5.0) mmol/L Chloride 96.7 L (98-107) mmol/L Carbon Dioxide 32 H (22-30) mmol/L BUN 11 (9-20) mg/dL Creatinine 0.7 L (0.8-1.5) mg/dL Glucose 66 L (75-100) mg/dL Calcium 7.9 L (8.4-10.2) mg/dL AST 15 (5-40) units/L ALT 13 (7-56) units/L Alkaline Phosphatase 66 (35-129) units/L Total Protein 5.0 L (6.3-8.2) g/dL Albumin 2.2 L (3.9-5) g/dL - Imaging and Cardiology EKG: report reviewed (mild volume overload)
--- NOTE | 2017-06-25 12:06 | Progress Note ---
Assessment and Plan - Patient Problems (1) Sepsis Status: Acute Qualifiers: Sepsis type: sepsis due to unspecified organism Qualified Code(s): A41.9 - Sepsis, unspecified organism Plan to address problem: Clinically stable off Meropenem. Patient is s/p left AKA. (2) PAD (peripheral artery disease) Onset Date: 08/22/16 Status: Chronic Plan to address problem: Per above. Subjective Date of service: 06/25/17 Principal diagnosis: Septic shock, PAD s/p left limb salvage procedures Interval history: Remains in ICU. No new events. Objective - Constitutional Vitals: Vital Signs Temp Pulse Resp BP Pulse Ox 98.5 F 90 16 137/98 97 06/25/17 12:00 06/25/17 12:00 06/25/17 12:00 06/25/17 12:00 06/25/17 12:00 Temperature -Last 24 Hours Temperature 98.5 F Temperature 98.8 F Temperature 98.2 F Temperature 98.8 F Temperature 98.5 F Temperature 98.2 F General appearance: Present: no acute distress - Respiratory Respiratory effort: normal Respiratory: bilateral: CTA - Cardiovascular Rhythm: irregularly irregular Extremity abnormal: other (left AKA stump stapled, no evidence of infection, bandage over left groin site; previous right arm incision stapled and without signs of infection) - Gastrointestinal General gastrointestinal: Present: soft, non-distended - Integumentary Integumentary: clear, no rash - Labs CBC & Chem 7: 06/25/17 05:20 06/25/17 05:20 Labs: Abnormal lab results 06/24/17 06/24/17 06/24/17 Range/Units 18:22 21:46 23:49 RBC (3.65-5.03) M/mm3 Hgb (11.8-15.2) gm/dl Hct (35.5-45.6) % Seg Neuts % (Manual) (40.0-70.0) % Lymphocytes % (Manual) (13.4-35.0) % Monocytes % (Manual) (0.0-7.3) % Lymphocytes # (Manual) (1.2-5.4) K/mm3 Potassium (3.6-5.0) mmol/L Chloride (98-107) mmol/L Carbon Dioxide (22-30) mmol/L Creatinine (0.8-1.5) mg/dL Glucose (75-100) mg/dL POC Glucose 195 H 230 H 191 H (70-105) Calcium (8.4-10.2) mg/dL Total Protein (6.3-8.2) g/dL Albumin (3.9-5) g/dL 06/25/17 06/25/17 Range/Units 05:20 05:20 RBC 2.95 L (3.65-5.03) M/mm3 Hgb 8.7 L (11.8-15.2) gm/dl Hct 25.9 L (35.5-45.6) % Seg Neuts % (Manual) 82.0 H (40.0-70.0) % Lymphocytes % (Manual) 7.0 L (13.4-35.0) % Monocytes % (Manual) 9.0 H (0.0-7.3) % Lymphocytes # (Manual) 0.6 L (1.2-5.4) K/mm3 Potassium 3.3 L (3.6-5.0) mmol/L Chloride 96.7 L (98-107) mmol/L Carbon Dioxide 32 H (22-30) mmol/L Creatinine 0.7 L (0.8-1.5) mg/dL Glucose 66 L (75-100) mg/dL POC Glucose (70-105) Calcium 7.9 L (8.4-10.2) mg/dL Total Protein 5.0 L (6.3-8.2) g/dL Albumin 2.2 L (3.9-5) g/dL Microbiology 06/14/17 Unknown Leg - Left Anaerobic Culture - Final Bacteroides Distasonis Bacteroides Distasonis#2 06/14/17 Unknown Leg - Left Surgical Biopsy Culture - Final Escherichia Coli Klebsiella Pneumoniae 06/14/17 Unknown Leg - Left Surgical Culture - Final Escherichia Coli Klebsiella Pneumoniae 06/12/17 19:35 Peripheral/Venous Blood Culture - Final NO GROWTH AFTER 5 DAYS 06/12/17 18:17 Peripheral/Venous Blood Culture - Final NO GROWTH AFTER 5 DAYS 06/14/17 Unknown Tracheal Aspirate Sputum Culture - Final 06/12/17 19:11 Urine,Catheterized - Cytoscopic/Bilateral Urine Culture - Final NO GROWTH AFTER 48 HOURS
--- NOTE | 2017-06-25 12:09 | Discharge Summary ---
Providers - Providers Date of Admission: 06/12/17 22:00 Date of discharge: 06/25/17 Attending physician: LITZY HUIZAR 06/12/17 23:00 Consult to Physician [CONS] Routine Consulting Provider: RUSLAN NIELSON Reason For Exam: icu adm Place consult to:: Dr. Nielson Notified:: Answering Service Phone number called:: [phone] Was contact made?: Yes If yes, spoke with:: Dr. Nielson Time called:: 23:02 06/13/17 01:36 Consult to Physician [CONS] Urgent Consulting Provider: JODI PRESTON Reason For Exam: BLEEDING FROM L LEG SURG. WOUND DESPITE WOUND VAC Place consult to:: KARY Notified:: YES 06/13/17 06:07 Consult to Wound/ET Nurse [CONS] Routine Reason For Exam: wound eval 06/13/17 08:16 Consult to Physician [CONS] Stat Consulting Provider: SONYA PARKER Reason For Exam: bleeding from wound Place consult to:: Elena Notified:: Dr. Parker - Dr. Ramos Was contact made?: Yes Time called:: 07:45 06/13/17 08:19 Consult to Physician [CONS] Routine Consulting Provider: BEL ALDRICH Reason For Exam: CHF Place consult to:: yes Notified:: Y Phone number called:: yes Was contact made?: Yes 06/14/17 Consult to Case Management [CONS] Routine Services Needed at Discharge: Wound Vac Notified:: yes Additional Physician Instructions: already approved for one at [facility] prior to admission 06/14/17 19:00 Consult to Wound/ET Nurse [CONS] Routine Reason For Exam: Intra-op wound vac placed 06/14/17 19:18 Consult to Dietitian/Nutrition [CONS] Routine Physician Instructions: Reason For Exam: Reason for Consult: INTUBATED 06/15/17 14:47 Consult to Physician [CONS] Routine Consulting Provider: MIMI CASTRO Reason For Exam: Infected wound and distal bypass Place consult to:: Dr Castro Notified:: yes Was contact made?: No Comment:: Pt seen by Dr Tonya stoll 06/15/17 06/16/17 12:23 Consult to Dietitian/Nutrition [CONS] Routine Physician Instructions: Reason For Exam: Reason for Consult: Write/Manage Tube Feeding 06/18/17 14:56 Consult to Physician [CONS] Routine Consulting Provider: SUNDAY BINGHAM Reason For Exam: AMS Place consult to:: Dr Brito Notified:: yes Phone number called:: [phone] Was contact made?: Yes If yes, spoke with:: Paty Time called:: 12:30 Comment:: Message to be relayed to Dr Brito 06/18/17 15:11 Consult to Dietitian/Nutrition [CONS] Routine Physician Instructions: needs 300mL [id number] water flush Reason For Exam: Reason for Consult: Write/Manage Tube Feeding 06/19/17 12:02 Physical Therapy Evaluation and Treat [CONS] Routine Comment: Reason For Exam: deconditioning Speech Therapy Evaluation and Treat [CONS] Routine Reason For Exam: eval. swallow and treat 06/19/17 12:03 Occupational Therapy Evaluate and Treat [CONS] Routine Comment: Reason For Exam: deconditioning 06/22/17 Occupational Therapy Evaluate and Treat [CONS] Routine Comment: Reason For Exam: s/p amputation Physical Therapy Evaluation and Treat [CONS] Routine Comment: Reason For Exam: s/p amputation Primary care physician: [facility] [employer] Hospitalization Condition: Fair Disposition: DC[facility] HOSPICE ([facility]) Core Measure Documentation - Palliative Care Palliative Care/ Comfort Measures: Hospice Care - Core Measures Any of the following diagnoses?: none Exam - Constitutional Vitals: Temp Pulse Resp BP Pulse Ox 98.5 F 90 16 137/98 97 06/25/17 12:00 06/25/17 12:00 06/25/17 12:00 06/25/17 12:00 06/25/17 12:00 General appearance: Present: no acute distress - EENT Eyes: Present: PERRL, EOM intact ENT: hearing intact - Neck Neck: Present: supple, normal ROM. Absent: enlarged thyroid, masses or JVD, cervical LAD, carotid bruits - Respiratory Respiratory: bilateral: CTA - Cardiovascular Rhythm: regular Heart Sounds: Present: S1 & S2. Absent: gallop, systolic murmur, diastolic murmur - Extremities Extremities: abnormal (left bka) - Abdominal General gastrointestinal: Present: soft, non-tender, non-distended, normal bowel sounds. Absent: mass Male genitourinary: Present: deferred - Rectal Rectal Exam: deferred - Integumentary Integumentary: Present: clear, warm, dry - Musculoskeletal Musculoskeletal: strength equal bilaterally - Psychiatric Psychiatric: appropriate mood/affect, intact judgment & insight - Neurologic Neurologic: moves all extremities Plan Activity: advance as tolerated Diet: low cholesterol, low salt, diabetic Wound: per wound nurse instructions Special Instructions: record daily BP diary, record blood sugar diary Follow up with: PRIMARY CARE, [Primary Care Provider] - 3-5 Days
[2017-06-25 12:31] VITALS: BP 135/79
== END 2017-06-25 14:28 | disposition hospice, inpatient (51) | DRG 239 ==
LOC: ED 17:52 → EEVIPCON 22:00 → 4A 22:00 → CC1 22:59
PROVIDERS: ADMIT Internal Medicine; ATTEND Family Medicine
PROC: 02HV33Z Insertion of Infusion Device into Superior Vena Cava, Percutaneous Approach (ICD-10-PCS; 2017-06-12)
PROC: 30233N1 Transfusion of Nonautologous Red Blood Cells into Peripheral Vein, Percutaneous Approach (ICD-10-PCS; 2017-06-13)
PROC: 3E0234Z Introduction of Serum, Toxoid and Vaccine into Muscle, Percutaneous Approach (ICD-10-PCS; 2017-06-13)
PROC: 4A033R1 Measurement of Arterial Saturation, Peripheral, Percutaneous Approach (ICD-10-PCS; 2017-06-13)
PROC: 5A1945Z Respiratory Ventilation, 24-96 Consecutive Hours (ICD-10-PCS; 2017-06-13)
PROC: 0BH17EZ Insertion of Endotracheal Airway into Trachea, Via Natural or Artificial Opening (ICD-10-PCS; 2017-06-13)
PROC: 041N09Q Bypass Left Popliteal Artery to Lower Extremity Artery with Autologous Venous Tissue, Open Approach (ICD-10-PCS; principal; 2017-06-14)
PROC: 05BD0ZZ Excision of Right Cephalic Vein, Open Approach (ICD-10-PCS; 2017-06-14)
PROC: 0JBC0ZZ Excision of Pelvic Region Subcutaneous Tissue and Fascia, Open Approach (ICD-10-PCS; 2017-06-14)
PROC: 0JBR0ZZ Excision of Left Foot Subcutaneous Tissue and Fascia, Open Approach (ICD-10-PCS; 2017-06-14)
PROC: 0Y6D0Z1 Detachment at Left Upper Leg, High, Open Approach (ICD-10-PCS; 2017-06-22)
DX: T82.7XXA Infection and inflammatory reaction due to other cardiac and vascular devices, implants and grafts, initial encounter (principal); A41.9 Sepsis, unspecified organism; R65.21 Severe sepsis with septic shock; G92 Toxic encephalopathy; J96.00 Acute respiratory failure, unspecified whether with hypoxia or hypercapnia; D62 Acute posthemorrhagic anemia; E87.1 Hypo-osmolality and hyponatremia; I70.262 Atherosclerosis of native arteries of extremities with gangrene, left leg; I97.620 Postprocedural hemorrhage of a circulatory system organ or structure following other procedure; N17.9 Acute kidney failure, unspecified; E87.0 Hyperosmolality and hypernatremia; E11.52 Type 2 diabetes mellitus with diabetic peripheral angiopathy with gangrene; T81.30XA Disruption of wound, unspecified, initial encounter; I97.638 Postprocedural hematoma of a circulatory system organ or structure following other circulatory system procedure; I11.0 Hypertensive heart disease with heart failure; I50.9 Heart failure, unspecified; Z66 Do not resuscitate; E11.65 Type 2 diabetes mellitus with hyperglycemia; I25.5 Ischemic cardiomyopathy; M19.90 Unspecified osteoarthritis, unspecified site; H40.9 Unspecified glaucoma; E11.43 Type 2 diabetes mellitus with diabetic autonomic (poly)neuropathy; E87.5 Hyperkalemia; E78.5 Hyperlipidemia, unspecified; R13.10 Dysphagia, unspecified; Y83.8 Other surgical procedures as the cause of abnormal reaction of the patient, or of later complication, without mention of misadventure at the time of the procedure; Y82.9 Unspecified medical devices associated with adverse incidents; Z88.6 Allergy status to analgesic agent; Z88.8 Allergy status to other drugs, medicaments and biological substances; Z86.718 Personal history of other venous thrombosis and embolism; Z87.442 Personal history of urinary calculi; Z95.1 Presence of aortocoronary bypass graft; Z98.61 Coronary angioplasty status; Z87.891 Personal history of nicotine dependence
CPT/HCPCS: 36415; 36600; 70450; 71010; 74000; 80048; 80053; 80202; 81001; 82140; 82803; 82805; 82962; 83735; 85007; 85014; 85018; 85025; 85027; 85610; 85730; 86850; 86900; 86901; 86920; 87040; 87075; 87076; 87086; 87116; 87186; 87205; 88307; 88311; 90732; 93005; 93010; 94002; 94003; 94760; 96365; 96366; 96372; 96375; A6250; G8978-GP; G8979-GP; G8980-GP; G8987-GO; G8988-GO; G8996-GN; G8997-GN; J0690; J0696; J1170; J1630; J1644; J1815; J1818; J1940; J2060; J2185; J2250; J2270; J2370; J2405; J2543; J2704; J2710; J3370; J7030; J7040; J7070; P9016; P9047